=== PATIENT | female | born 1970 | race Caucasian/White ===

== ENCOUNTER 2020-01-12 22:28 | Emergency (ER) | payer OTHER, SELFPAY ==
[2020-01-12 22:39] VITALS: BP 156/78; BP 168/129; PULSE 105; PULSE 94; RESP 16; TEMP 36.9; O2SAT 96; BMI 42.5
--- NOTE | 2020-01-12 22:58 | XR_ITS ---
EXAMINATION: XR CHEST CLINICAL INFORMATION: Cough. COMPARISON: Most recent chest radiograph dated 03/31/2018. TECHNIQUE: Frontal view of the chest was obtained. FINDINGS: Minimal right basilar atelectasis. No pleural effusion or pneumothorax. Stable cardiomediastinal silhouette. No acute osseous abnormality. XR/XR chest 1V IMPRESSION: Minimal right basilar atelectasis.
--- NOTE | 2020-01-12 22:59 | ECG_ITS ---
Test Reason : OD Blood Pressure : / mmHG Vent. Rate : 099 BPM Atrial Rate : 099 BPM P-R Int : 166 ms QRS Dur : 088 ms QT Int : 364 ms P-R-T Axes : 066 002 053 degrees QTc Int : 467 ms Normal sinus rhythm Low voltage QRS Left axis deviation Borderline ECG When compared with ECG of 03-MAY-2012 15:48, Heart rate has increased Referred By: Marisela Kunz Electronically Signed By:KENDAL PATRICK MD
--- NOTE | 2020-01-12 23:01 | ED.OVERDOSE ---
HPI - Overdose General Chief Complaint: Overdose Stated Complaint: od Time Seen by Provider: 01/12/20 22:40 Source: patient and EMS Mode of arrival: EMS Limitations: no limitations History of Present Illness HPI Narrative: This is a 49-year-old female who reports that she has been clean for a number of years and then began experiencing significant menstrual related pain and decide is snored half a bag of heroin which proved to be too much and she became unresponsive. EMS had to administer 2 mg of Narcan, epi, and an additional 2 mg of Narcan in order to get the patient conscious. Otherwise, she is complaining of some asthma related symptoms. Otherwise, she denies any fevers, chills, she chest pain/palpitations, GI symptoms, symptoms. Patient denies any attempts to kill herself and states that she simply fell off the wagon . Related Data Allergies Allergy/AdvReac Type Severity Reaction Status Date / Time No Known Allergies Allergy Verified 01/12/20 22:49 Review of Systems Review of Systems: Pertinent positives and negatives as stated in HPI 10 point review of systems is otherwise negative. PMFSH Past Medical History Source: nursing notes reviewed Medical History Asthma Bipolar 1 disorder Diabetes Substance abuse Social History Social History Alcohol intake: never Smoking Status: Never smoker Use of substances other than those prescribed or required for medical reasons: No Advance Directives: No Advance Directives Information Provided: No Physical Exam Vital Signs: Vital Signs: Vital Signs Temp Pulse Resp BP Pulse Ox 01/12/20 22:39 98.4 F 94 16 156/78 H 96 Body Mass Index 42.5 VITAL SIGNS: Reviewed. GENERAL: Well developed, well nourished, in no acute distress. HEAD: Normocephalic/atraumatic, EYES: PERRLA, EOMI intact without pain, no nystagmus/pallor/icterus noted EARS: Ext canals without abnormality, TMs non-bulging and non-erythematous NOSE: Nares patent bilateral OROPHARYNX: no oral lesions noted, posterior pharynx clear and non-erythematous without noted tonsillar enlargement/erythema/exudates NECK: Supple, no adenopathy LUNGS: Normal breath sounds. No adventitious sounds or accessory muscle use. SpO2<96> CARDIOVASCULAR: Regular rate and rhythm without noted murmurs, no JVD or lower extremity edema. ABDOMEN: Soft, non-tender, non-distended with bowel sounds. No rigidity. No guarding. No palpable masses or hernias noted MUSCULOSKELETAL: No tenderness, deformities, or effusions noted on gross inspection. EXTREMITIES: No cyanosis, clubbing or edema. SKIN: Inspection of the skin reveals no rashes, ulcerations, jaundice, pallor, or petechiae. NEUROLOGIC: Alert and oriented x 4. Strength and sensation to light touch were grossly intact x 4. Course Course Course Narrative: This is a 49-year-old female with history and clinical presentation consistent with accidental heroin overdose. Will perform basic labs, EKG, imaging and give an albuterol treatment for underlying asthma. A review of all investigations is without acute findings other than elevated glucose levels without evidence to suggest DKA/HHS, chest x-ray only significant for some mild right basilar atelectasis, and no acute findings on EKG. MDM - Overdose Lab Data Result diagrams: 01/12/20 23:34 01/13/20 00:23 Labs: Lab Results 01/12/20 01/12/20 01/13/20 Range/Units 23:34 23:34 00:23 WBC 10.0 (4.8-10.8) X10*3/uL RBC 4.09 L (4.20-5.50) X10*6/uL Hgb 12.0 (12.0-16.0) g/dl Hct 37.2 (37-47) % MCV 91.0 (80-98) fL MCH 29.3 (27.0-33.0) pg MCHC 32.3 (31.0-35.0) g/dl RDW 12.8 (11.0-16.0) % Plt Count 376 (160-400) X10*3/uL MPV 10.0 (9.4-12.3) fL Immature Gran % (Auto) 0.3 (0.0-0.4) % Neut % (Auto) 73.8 H (45-73) % Lymph % (Auto) 15.9 L (20-40) % [place] % (Auto) 5.6 (2-11) % Eos % (Auto) 4.1 H (0-4) % Baso % (Auto) 0.3 (0-2) % Lymph # (Auto) 1.6 (1.2-4.9) X10*3/uL [place] # (Auto) 0.6 (0.1-1.2) X10*3/uL Eos # (Auto) 0.4 (0.0-0.4) X10*3/uL Baso # (Auto) 0.0 (0.0-0.2) X10*3/uL Abs Immat Gran (auto) 0.03 (0.00-0.03) X10*3/uL Absolute Neuts (auto) 7.4 (2.0-8.3) X10*3/uL Absolute Nucleated RBC 0.000 (0.0-0.012) X10*3/uL Nucleated RBC % (auto) 0.0 (0.0-0.2) /100WBC Sodium Cancelled 137 Potassium Cancelled 4.6 Chloride Cancelled 99 Carbon Dioxide Cancelled 27 Anion Gap Cancelled 16 BUN Cancelled 13 Creatinine Cancelled 1.20 Estim Creat Clear Calc Cancelled 66.4 Estimated GFR Cancelled 48 Random Glucose Cancelled 303 H Calcium Cancelled 8.2 L Total Bilirubin Cancelled 0.4 AST Cancelled 27 ALT Cancelled 22 Alkaline Phosphatase Cancelled 100 Total Protein Cancelled 6.9 Albumin Cancelled 3.8 ECG Data Attestation: I personally reviewed and interpreted this ECG as follows: Prior ECG tracings: available for review (05/03/2012 comparison without acute changes) Interpretation: normal sinus rhythm, HR - 99, no evidence of acute ischemia, NV/QRS/QTC are within normal limits Discharge Plan Discharge Clinical Impression: Drug overdose Qualifiers: Encounter type: initial encounter Injury intent: accidental or unintentional Qualified Code(s): T50.901A - Poisoning by unspecified drugs, medicaments and biological substances, accidental (unintentional), initial encounter Patient Disposition: Home, Self-Care Instructions: Adult Overdose (ED) Additional Instructions: Please follow-up with your primary care provider by calling the office on Tuesday to set up a follow-up appointment. The patient and/or family acknowledge understanding of results (as applicable), diagnosis, treatment plan, need for follow up, and symptoms that should prompt a return to the emergency room. Referrals: Physician,Unknown [Primary Care Provider] - 2 days
[2020-01-12] MEDS: Albuterol Sulfate (0.083%) 2.5 MG/3 ML VIAL.NEB INHALE (23:36)
[2020-01-12] MEDS: Ketorolac Tromethamine 15 MG/ML VIAL IVPUSH (23:57)
[2020-01-12 23:59] LABS: Basophils Percent Auto 0.3 % (0-2); Eosinophils Absolute Auto 0.4 X10*3/uL (0.0-0.4); Eosinophils Percent Auto 4.1 % (0-4); Hematocrit 37.2 % (37-47); Imm Gran Abs Auto 0.03 X10*3/uL (0.00-0.03); Imm Gran Pct Auto 0.3 % (0.0-0.4); Lymphocytes Absolute Auto 1.6 X10*3/uL (1.2-4.9); Lymphocytes Percent Auto 15.9 % (20-40); MANUAL DIFF FLAG NO; Mean Corpuscular HGB Conc 32.3 g/dl (31.0-35.0); Mean Corpuscular Hemoglobin 29.3 pg (27.0-33.0); Monocytes Absolute Auto 0.6 X10*3/uL (0.1-1.2); Monocytes Percent Auto 5.6 % (2-11); Neutrophils Absolute Auto 7.4 X10*3/uL (2.0-8.3); Neutrophils Percent Auto 73.8 % (45-73); Platelet Count 376 X10*3/uL (160-400); Red Blood Count 4.09 X10*6/uL (4.20-5.50); Red Cell Distribution Width 12.8 % (11.0-16.0)
[2020-01-13 00:55] LABS: Alanine Aminotransferase 22 U/L (0-31); Albumin Level 3.8 g/dL (3.5-5.0); Alkaline Phosphatase 100 U/L (39-117); Anion Gap 16 (12-20); Aspartate Amino Transferase 27 U/L (5-31); Bilirubin Total 0.4 mg/dL (0.0-1.0); Blood Urea Nitrogen 13 mg/dL (9-16); Calcium 8.2 mg/dL (8.4-10.2); Carbon Dioxide 27 mmol/L (22-29); Chloride 99 mmol/L (96-108); Creatinine Clr Calc Pharmacy 66.4; Estimated Glomerular Filt Rate 48; Glucose Random 303 mg/dL (60-115); Potassium 4.6 mmol/l (3.3-5.1); Sodium 137 mmol/L (135-145); Total Protein 6.9 g/dL (6.5-8.0)
[2020-01-13 02:00] LABS: Glucose, Whole Blood 247 mg/dL (60-115)
== END 2020-01-13 01:21 | disposition home or self-care (01) ==
PROVIDERS: Emergency Provider Student in an Organized Health Care Education/Training Program
DX: T40.1X1A Poisoning by heroin, accidental (unintentional), initial encounter (principal); Y92.9 Unspecified place or not applicable; F11.10 Opioid abuse, uncomplicated; Z71.51 Drug abuse counseling and surveillance of drug abuser
CPT/HCPCS: 36415; 71045; 80053; 82947; 85025; 93005; 96374; 99284; 99285; J1885

== ENCOUNTER 2020-02-28 23:44 | Emergency (ER) | payer OTHER, SELFPAY ==
[2020-02-28 23:50] VITALS: BP 149/70; PULSE 89; RESP 25; TEMP 36; O2SAT 99; BMI 42.5
--- NOTE | 2020-02-29 00:09 | ED_ITS ---
HPI - Asthma General Chief Complaint: Asthma Stated Complaint: Sob Time Seen by Provider: 02/28/20 23:49 Source: patient Mode of arrival: ambulatory Limitations: no limitations History of Present Illness HPI Narrative: This is a 49-year-old female with history of asthma states that she woke up with some bad indigestion which causes exacerbation this evening and she states that she does not have the nebulizer pees for her albuterol and the inhaler was not working. Otherwise, she denies any associated fevers, chills, smoking history. Related Data Previous Rx's Medication Instructions Recorded prednisone 40 mg PO DAILY 4 Days #8 tab 02/29/20 Allergies Allergy/AdvReac Type Severity Reaction Status Date / Time No Known Allergies Allergy Verified 01/12/20 22:49 Review of Systems Review of Systems: Pertinent positives and negatives as stated in HPI 10 point review of systems is otherwise negative. PMFSH Past Medical History Source: nursing notes reviewed Medical History Asthma Bipolar 1 disorder Diabetes Substance abuse Social History Social History Alcohol intake: never Smoking Status: Never smoker Smoked in Last 30 Days: No Advance Directives: No Advance Directives Information Provided: No Physical Exam Vital Signs: Vital Signs: Last Vital Signs Temp 98.2 F 02/29/20 00:11 Pulse 79 02/29/20 00:50 Resp 18 02/29/20 00:11 BP 143/65 H 02/29/20 00:11 Pulse Ox 98 02/29/20 00:11 Body Mass Index 42.5 VITAL SIGNS: Reviewed. GENERAL: Well developed, well nourished, in no acute distress. HEAD: Normocephalic/atraumatic, EYES: PERRLA, EOMI intact without pain, no nystagmus/pallor/icterus noted EARS: Ext canals without abnormality, TMs non-bulging and non-erythematous NOSE: Nares patent bilateral OROPHARYNX: no oral lesions noted, posterior pharynx clear and non-erythematous without noted tonsillar enlargement/erythema/exudates NECK: Supple, no adenopathy LUNGS: Diffuse wheezing, minimal accessory muscle use. SpO2<98> CARDIOVASCULAR: Regular rate and rhythm without noted murmurs, no JVD or lower extremity edema. ABDOMEN: Soft, non-tender, non-distended with bowel sounds. No rigidity. No guarding. No palpable masses or hernias noted MUSCULOSKELETAL: No tenderness, deformities, or effusions noted on gross inspection. EXTREMITIES: No cyanosis, clubbing or edema. SKIN: Inspection of the skin reveals no rashes, ulcerations, jaundice, pallor, or petechiae. NEUROLOGIC: Alert and oriented x 4. Strength and sensation to light touch were grossly intact x 4. Course Course Course Narrative: This is a 49-year-old female with history and clinical presentation consistent with mild asthma exacerbation. -labs, chest x-ray, albuterol, prednisone On review of all investigations of acute infection (pneumonia) and patient reports symptomatic improvement after the albuterol and prednisone treatments and clinically there is improvement as well. [facility] - Asthma Lab Data Result diagrams: 02/29/20 00:22 02/29/20 00:22 Labs: Lab Results 02/29/20 02/29/20 Range/Units 00:22 00:22 WBC 8.6 (4.8-10.8) X10*3/uL RBC 3.82 L (4.20-5.50) X10*6/uL Hgb 10.7 L (12.0-16.0) g/dl Hct 34.3 L (37-47) % MCV 89.8 (80-98) fL MCH 28.0 (27.0-33.0) pg MCHC 31.2 (31.0-35.0) g/dl RDW 12.7 (11.0-16.0) % Plt Count 343 (160-400) X10*3/uL MPV 9.7 (9.4-12.3) fL Immature Gran % (Auto) 0.2 (0.0-0.4) % Neut % (Auto) 69.4 (45-73) % Lymph % (Auto) 19.1 L (20-40) % [place] % (Auto) 5.1 (2-11) % Eos % (Auto) 5.9 H (0-4) % Baso % (Auto) 0.3 (0-2) % Lymph # (Auto) 1.6 (1.2-4.9) X10*3/uL [place] # (Auto) 0.4 (0.1-1.2) X10*3/uL Eos # (Auto) 0.5 H (0.0-0.4) X10*3/uL Baso # (Auto) 0.0 (0.0-0.2) X10*3/uL Abs Immat Gran (auto) 0.02 (0.00-0.03) X10*3/uL Absolute Neuts (auto) 6.0 (2.0-8.3) X10*3/uL Absolute Nucleated RBC 0.000 (0.0-0.012) X10*3/uL Nucleated RBC % (auto) 0.0 (0.0-0.2) /100WBC Sodium 137 (135-145) mmol/L Potassium 4.7 (3.3-5.1) mmol/l Chloride 96 (96-108) mmol/L Carbon Dioxide 31 H (22-29) mmol/L Anion Gap 15 (12-20) BUN 11 (9-16) mg/dL Creatinine 0.84 (0.5-1.4) mg/dL Estim Creat Clear Calc 94.8 Estimated GFR > 60 Random Glucose 244 H (60-115) mg/dL Calcium 8.5 (8.4-10.2) mg/dL Total Bilirubin 0.6 (0.0-1.0) mg/dL AST 10 D (5-31) U/L ALT 10 (0-31) U/L Alkaline Phosphatase 130 H D (39-117) U/L Total Protein 7.0 (6.5-8.0) g/dL Albumin 3.9 (3.5-5.0) g/dL Discharge Plan Discharge Clinical Impression: Asthma with acute exacerbation Qualifiers: Asthma severity: mild Asthma persistence: unspecified Qualified Code(s): J45.901 - Unspecified asthma with (acute) exacerbation Patient Disposition: Home, Self-Care Instructions: Asthma (ED), Wheezing (ED) Additional Instructions: Please resume all home medications as prescribed. Do not hesitate to return to the emergency department should you experience any acute worsening of your symptoms or new onset of fever, chills. Be advised that with this short course of prednisone your blood sugars, blood pressure, and stomach acid will increase. The patient and/or family acknowledge understanding of results (as applicable), diagnosis, treatment plan, need for follow up, and symptoms that should prompt a return to the emergency room. Prescriptions: New prednisone 20 mg tablet 40 mg PO DAILY 4 Days Qty: 8 RF: 0 Referrals: Angie Wing MD [Primary Care Provider] - 2 days (Re-evaluation after acute asthma exacerbation)
--- NOTE | 2020-02-29 00:10 | XR_ITS ---
EXAMINATION: CHEST 1 VIEW CLINICAL INFORMATION: Shortness of breath. COMPARISON: 03/31/2018. TECHNIQUE: An AP view of the chest is provided. FINDINGS: The cardiac silhouette is stable. The mediastinal and hilar contours are unremarkable. There are neither pleural effusions nor pneumothoraces. There are no consolidations. The osseous structures are unremarkable. XR/XR chest 1V IMPRESSION: No evidence for acute disease.
[2020-02-29 00:11] VITALS: BP 143/65; PULSE 83; RESP 18; TEMP 36.8; O2SAT 98
[2020-02-29 00:28] LABS: Basophils Percent Auto 0.3 % (0-2); Eosinophils Absolute Auto 0.5 X10*3/uL (0.0-0.4); Eosinophils Percent Auto 5.9 % (0-4); Hematocrit 34.3 % (37-47); Hemoglobin 10.7 g/dl (12.0-16.0); Imm Gran Abs Auto 0.02 X10*3/uL (0.00-0.03); Imm Gran Pct Auto 0.2 % (0.0-0.4); Lymphocytes Absolute Auto 1.6 X10*3/uL (1.2-4.9); Lymphocytes Percent Auto 19.1 % (20-40); MANUAL DIFF FLAG NO; Mean Corpuscular HGB Conc 31.2 g/dl (31.0-35.0); Mean Corpuscular Volume 89.8 fL (80-98); Mean Platelet Volume 9.7 fL (9.4-12.3); Monocytes Absolute Auto 0.4 X10*3/uL (0.1-1.2); Monocytes Percent Auto 5.1 % (2-11); Neutrophils Percent Auto 69.4 % (45-73); Platelet Count 343 X10*3/uL (160-400); Red Blood Count 3.82 X10*6/uL (4.20-5.50); Red Cell Distribution Width 12.7 % (11.0-16.0); White Blood Count 8.6 X10*3/uL (4.8-10.8)
[2020-02-29] MEDS: predniSONE 10 MG TABLET 50 MG PO (00:30)
[2020-02-29] MEDS: Magnesium Hydrox/Alum Hydrox 30 ML ORAL.SUSP PO (00:31)
[2020-02-29] MEDS: Lidocaine HCl Viscous 2 % 15 ML SOLUTION 10 ML MUCOUS MEM (00:31)
[2020-02-29] MEDS: Albuterol Sulfate (0.083%) 2.5 MG/3 ML VIAL.NEB 5 MG INHALE (00:45)
[2020-02-29 00:50] VITALS: PULSE 79; O2SAT 96
[2020-02-29 00:54] LABS: Alanine Aminotransferase 10 U/L (0-31); Albumin Level 3.9 g/dL (3.5-5.0); Alkaline Phosphatase 130 U/L (39-117); Anion Gap 15 (12-20); Aspartate Amino Transferase 10 U/L (5-31); Bilirubin Total 0.6 mg/dL (0.0-1.0); Blood Urea Nitrogen 11 mg/dL (9-16); Calcium 8.5 mg/dL (8.4-10.2); Carbon Dioxide 31 mmol/L (22-29); Chloride 96 mmol/L (96-108); Creatinine Clr Calc Pharmacy 94.8; Estimated Glomerular Filt Rate > 60; Glucose Random 244 mg/dL (60-115); Potassium 4.7 mmol/l (3.3-5.1); Sodium 137 mmol/L (135-145)
[2020-02-29 01:49] VITALS: BP 138/64; PULSE 84; RESP 16; TEMP 36.9; O2SAT 95
== END 2020-02-29 01:50 | disposition home or self-care (01) ==
PROVIDERS: Emergency Provider Student in an Organized Health Care Education/Training Program; PCP Internal Medicine
DX: J45.901 Unspecified asthma with (acute) exacerbation (principal); Z79.899 Other long term (current) drug therapy
CPT/HCPCS: 36415; 71045; 80053; 85025; 94640; 99284

== ENCOUNTER 2020-06-01 01:44 | Emergency (ER) | payer OTHER, SELFPAY ==
--- NOTE | ~2020-06-01 | XR_ITS ---
EXAMINATION: XR CHEST CLINICAL INFORMATION: sob COMPARISON: 02/29/2020 TECHNIQUE: Frontal view of the chest was obtained. FINDINGS: Lung volumes are borderline low. No consolidation, pneumothorax, or pleural effusion. Cardiac meniscal contours are normal. Pulmonary vasculature is unremarkable. Cardiac leads overlie the chest. A focus of calcific tendinitis is present at the left humeral head. No acute osseous findings. Mild degenerative spondylosis in the thoracic spine. XR/XR chest 1V IMPRESSION: No acute pulmonary findings.
[2020-06-01 01:55] VITALS: BP 152/85; PULSE 89; RESP 20; TEMP 36.9; O2SAT 96; BMI 41.1
--- NOTE | 2020-06-01 01:58 | ED_ITS ---
HPI - Asthma General Chief Complaint: Asthma Stated Complaint: Sob (Asthma) Time Seen by Provider: 06/01/20 01:50 Source: patient Mode of arrival: ambulatory Limitations: no limitations History of Present Illness HPI Narrative: Patient comes emergency room complaining of an asthma exacerbation. Patient states that prior to arrival she gave herself a a neb treatment with albutero but did not work. Patient states she is supposed to use her inhaler Spiriva, but she ran out of it several weeks ago. Patient states that she is running out of her albuterol neb treatments MD complaint: asthma attack Related Data Previous Rx's Medication Instructions Recorded prednisone 40 mg PO DAILY 4 Days #8 tab 02/29/20 albuterol sulfate 2 puff INHALATION Q4-6H PRN #8.5 g 06/01/20 albuterol sulfate 5 mg INHALATION QID PRN #30 ea 06/01/20 prednisone 50 mg PO DAILY #4 tab 06/01/20 Allergies Allergy/AdvReac Type Severity Reaction Status Date / Time No Known Allergies Allergy Verified 01/12/20 22:49 Review of Systems Review of Systems: Constitutional : No Weight loss, No Fever, No Chills, No Night Sweats, No Fatigue, No Malaise ENT/Mouth : No Hearing loss, No Ear Pain, No Nasal Congestion, No Sinus Pain, No Hoarseness, No sore throat, No Rhinorrhea, No Swallowing Difficulty Eyes: No Eye Pain, No Swelling, No Redness, No Foreign Body, No Discharge, No Vision Changes Cardiovascular : Denies Chest Pain, No SOB, No Dyspnea on Exertion, No Orthopnea, No Edema, No Palpitations Respiratory : Complaining of mild Cough, No Sputum, complaining of Wheezing and dyspnea Gastrointestinal : No Nausea, No Vomiting, No Diarrhea, No Constipation, No abdominal Pain, No Hematochezia, No Melena Genitourinary : no irregular bleeding, No Dysuria, No Urinary Frequency, No Hematuria, No Urinary Incontinence, No Urgency, No Flank Pain, No Urinary Flow Changes, No Hesitancy Musculoskeletal : No joint pain, No Myalgias, No Joint Swelling Skin : No Skin Lesions, No rash Neuro : No Weakness, No Numbness, No Paresthesias, No Loss of Consciousness, No Dizziness, No Headache Psych : No Anxiety/Panic, No Depression, No SI/HI/AH/VH, No Social Issues, Heme/Lymph: No Bruising, No Bleeding,No Lymphadenopathy Endocrine : No Polyuria, No Polydipsia, No Temperature Intolerance [facility] Past Medical History Medical History Asthma Bipolar 1 disorder Diabetes Substance abuse Social History Social History Alcohol intake: never Smoking Status: Never smoker Advance Directives: No Physical Exam Vital Signs: Vital Signs: Last Vital Signs Temp 98.5 F 06/01/20 01:55 Pulse 86 06/01/20 02:22 Resp 20 06/01/20 01:55 BP 152/85 H 06/01/20 01:55 Pulse Ox 96 06/01/20 01:55 Body Mass Index 41.1 Appearance: Alert. Oriented X3. No acute distress. Eyes: Pupils equal, round and reactive to light. ENT: Pharynx normal. Neck: Normal inspection. Neck supple. No lymph nodes noted. No crepitus CVS: Normal heart rate and rhythm. Pulses normal. Normal S1 and S2 Respiratory: No respiratory distress. Breath sounds normal. No Wheezing. No rales Abdomen: Soft and nontender. No rigidity. No distention. good BS x4 Skin: Skin warm and dry. Normal skin color. Normal skin turgor. Extremities: No lower extremity edema. No lower extremity edema. No Lacerations. No Rash Neuro: Oriented X 3. No motor deficit. No sensory deficit. Moving all extermities. No slurred speech. Course Course Course Narrative: After 1st treatment, patient states that she feels much better, patient's oxygen saturation is 98% on room air. Patient is speaking on the phone, speaking in full sentences. However, on physical exam, she still wheezing, the wheezing did improve but still present. I offered to the patient a breathing treatment and then re-evaluation. Patient has declined, does not want another breathing treatment, requesting to be discharged and also requesting a prescription for her albuterol. MDM - Asthma Imaging Data Chest x-ray: Radiologist's impression: Lung volumes are borderline low. No consolidation, pneumothorax, or pleural effusion. Cardiac meniscal contours are normal. Pulmonary vasculature is unremarkable. Cardiac leads overlie the chest. A focus of calcific tendinitis is present at the left humeral head. No acute osseous findings. Mild degenerative spondylosis in the thoracic spine. XR/XR chest 1V IMPRESSION: No acute pulmonary findings. Discharge Plan Discharge Clinical Impression: Asthma with acute exacerbation Qualifiers: Asthma severity: moderate Asthma persistence: unspecified Qualified Code(s): J45.901 - Unspecified asthma with (acute) exacerbation Patient Disposition: Home, Self-Care Instructions: Asthma (ED) Additional Instructions: Please follow-up with your primary care physician tomorrow. If you have any wor sening or new symptoms, please return to the emergency room or call 911 Prescriptions: New albuterol sulfate 90 mcg/actuation HFA aerosol inhaler 2 puff inhalation Q4-6H PRN (Reason: shortness of breath or wheezing) Qty: 8.5 RF: 0 albuterol sulfate 2.5 mg/0.5 mL solution for nebulization 5 mg inhalation QID PRN (Reason: shortness of breath or wheezing) Qty: 30 RF: 0 prednisone 50 mg tablet 50 mg PO DAILY Qty: 4 RF: 0 No Action prednisone 20 mg tablet 40 mg PO DAILY 4 Days Qty: 8 RF: 0
[2020-06-01 02:00] VITALS: BP 140/88; PULSE 81; RESP 20; TEMP 37.2; O2SAT 98
[2020-06-01] MEDS: Albuterol Sulfate (0.083%) 2.5 MG/3 ML VIAL.NEB 10 MG INHALE (02:19)
[2020-06-01 02:22] VITALS: PULSE 86; O2SAT 96
[2020-06-01] MEDS: methylPREDNISolone Sod Succ 125 MG/2 ML VIAL IVPUSH (02:23)
== END 2020-06-01 04:31 | disposition home or self-care (01) ==
PROVIDERS: Emergency Provider Emergency Medicine; PCP Internal Medicine
DX: J45.901 Unspecified asthma with (acute) exacerbation (principal); E11.9 Type 2 diabetes mellitus without complications; F19.10 Other psychoactive substance abuse, uncomplicated
CPT/HCPCS: 71045; 94640; 94644; 96374; 99284; J2930

== ENCOUNTER 2020-07-06 17:47 | Emergency (ER) | payer OTHER, SELFPAY ==
[2020-07-06 18:06] VITALS: BP 185/90; PULSE 91; RESP 16; TEMP 37.2; O2SAT 94; BMI 40.3
[2020-07-06 18:19] LABS: Glucose, Whole Blood 535 mg/dL (60-115)
[2020-07-06 19:27] LABS: MANUAL DIFF FLAG NO
[2020-07-06 19:29] LABS: Basophils Percent Auto 0.3 % (0-2); Eosinophils Absolute Auto 0.4 X10*3/uL (0.0-0.4); Eosinophils Percent Auto 4.4 % (0-4); Hematocrit 38.3 % (37-47); Hemoglobin 11.9 g/dl (12.0-16.0); Imm Gran Abs Auto 0.03 X10*3/uL (0.00-0.03); Imm Gran Pct Auto 0.3 % (0.0-0.4); Lymphocytes Absolute Auto 1.2 X10*3/uL (1.2-4.9); Lymphocytes Percent Auto 13.3 % (20-40); Mean Corpuscular HGB Conc 31.1 g/dl (31.0-35.0); Mean Corpuscular Hemoglobin 26.3 pg (27.0-33.0); Mean Corpuscular Volume 84.5 fL (80-98); Mean Platelet Volume 9.7 fL (9.4-12.3); Monocytes Absolute Auto 0.4 X10*3/uL (0.1-1.2); Monocytes Percent Auto 4.3 % (2-11); Neutrophils Absolute Auto 6.9 X10*3/uL (2.0-8.3); Neutrophils Percent Auto 77.4 % (45-73); Platelet Count 287 X10*3/uL (160-400); Red Blood Count 4.53 X10*6/uL (4.20-5.50); Red Cell Distribution Width 14.6 % (11.0-16.0); White Blood Count 8.9 X10*3/uL (4.8-10.8)
[2020-07-06 19:52] LABS: Glucose Urine UA >=1000 MG/DL (NEG); Leukocyte Esterase Urine NEG (NEG); Nitrite Urine NEG (NEG); PH 6.5 (5.0-8.0); Urine Blood NEG (NEG); Urine Ketones NEG (NEG); Urine Protein NEG (NEG-TRACE)
[2020-07-06 19:54] LABS: Appearance Urine CLEAR; Color Urine YELLOW
[2020-07-06 19:55] LABS: UPreg QC Valid YES; Urine Pregnancy NEGATIVE (NEGATIVE)
[2020-07-06 20:07] LABS: Alanine Aminotransferase 13 U/L (0-31); Albumin Level 3.9 g/dL (3.5-5.0); Alkaline Phosphatase 219 U/L (39-117); Anion Gap 14 (12-20); Aspartate Amino Transferase 11 U/L (5-31); Bilirubin Total 0.7 mg/dL (0.0-1.0); Blood Urea Nitrogen 8 mg/dL (9-16); Calcium 9.2 mg/dL (8.4-10.2); Carbon Dioxide 34 mmol/L (22-29); Chloride 91 mmol/L (96-108); Creatinine Clr Calc Pharmacy 85.3; Estimated Glomerular Filt Rate > 60; Glucose Random 469 mg/dL (60-115); Potassium 4.5 mmol/L (3.3-5.1); Sodium 134 mmol/L (135-145); Total Protein 7.1 g/dL (6.5-8.0)
[2020-07-06 20:08] LABS: RBC Urine 0-2 /HPF (0); Squamous Epithelial Cell Urine 1+ /LPF; WBC Urine 0 /HPF (0-4)
[2020-07-06] MEDS: Insulin Regular, Human 100 UNIT/ML 3 ML VIAL IVPUSH ×2 (20:48→23:15)
[2020-07-06] MEDS: Lactated Ringers 1,000 ML 999 ML IV ×2 (20:48→21:50)
--- NOTE | 2020-07-06 20:56 | ED.GENADULT ---
HPI - General Adult General Chief complaint: General Medical Stated complaint: HBS Time Seen by Provider: 07/06/20 20:05 Source: patient Mode of arrival: ambulatory Limitations: no limitations History of Present Illness HPI narrative: Patient is a 49-year-old female with a past medical history of asthma, bipolar disorder, substance abuse and type 2 diabetes who presents with a couple weeks of increased thirst, increased urination. Patient states she is supposed to check her blood sugar 3 times per week but she admits she has not checked in approximately 3 weeks because she has been very busy. She does take to 1000 mg of metformin daily and states she has been taking this medication every day. She noticed she was getting very thirsty and urinating more arm and was getting a little foggy in her head so she decided to test her blood sugar and the meter would not read it, she tried another meter and that still would not produce a reading so she came to the ED. She denies any chest pain, shortness of breath or abdominal pain or fevers. She states she has been taking her asthma and bipolar medication as normal. She also states she was taking medication for elevated blood pressures but has been taken off of it and does not currently take any medications for hypertension. Patient states she has been trying to get it an appointment with her PCP but her PCP is refusing to see her. Related Data Previous Rx's Medication Instructions Recorded prednisone 40 mg PO DAILY 4 Days #8 tab 02/29/20 albuterol sulfate 2 puff INHALATION Q4-6H PRN #8.5 g 06/01/20 albuterol sulfate 5 mg INHALATION QID PRN #30 ea 06/01/20 prednisone 50 mg PO DAILY #4 tab 06/01/20 Allergies Allergy/AdvReac Type Severity Reaction Status Date / Time No Known Allergies Allergy Verified 01/12/20 22:49 Review of Systems Review of Systems: Yes all other systems are reviewed and are negative Neurologic: Denies Abnormal speech present FOR[facility]LY [facility], [facility] Past Medical History Medical History Asthma Bipolar 1 disorder Diabetes Substance abuse Social History Social History Alcohol intake: never Smoking Status: Never smoker Use of substances other than those prescribed or required for medical reasons: No Advance Directives: No Advance Directives Information Provided: No Physical Exam Vital Signs: Vital Signs: Last Vital Signs Temp 98.9 F 07/06/20 18:06 Pulse 87 07/06/20 22:35 Resp 16 07/06/20 22:05 BP 149/73 H 07/06/20 22:35 Pulse Ox 92 07/06/20 22:35 Body Mass Index 40.3 Const: General: cooperative, healthy appearing, comfortable and no acute distress Nutritional Appearance: obese Orientation/consciousness: patient oriented x3 Limitations: no limitations HENMT: Head: Yes normal to inspection Ears: hearing grossly normal bilaterally Eyes: General: appearance normal, both eyes and all related structures Neck: Neck: Yes normal visual inspection, Yes full ROM and Yes supple Resp: Effort & Inspection: normal respiratory effort and able to speak in complete sentences Auscultation: wheezes throughout Cardio: Rate: regular rate Rhythm: regular rhythm Heart sounds: normal S1 and S2 GI: Inspection: Yes obesity Palpation (GI): Soft to palpation and nontender Auscultation: normal bowel sounds Skin: General skin exam: no rashes or lesions noted Neuro: General: patient oriented x3 Cognition (Neuro): normal cognition Speech: No Abnormal speech present Psych: Appearance: grossly normal Course Course Course Narrative: Patient is a 49-year-old female with a past medical history of asthma, bipolar disorder, substance abuse and type 2 diabetes who presents with a couple weeks of increased thirst, increased urination. Physical exam rather benign except patient had bilateral wheezes. Point of care upon arrival was 535, blood pressure was elevated at 185/90. Will get labs, monitor pressure and glucose, start with 2 L of LR and 5 units of insulin and a duoneb. Advised patient would be in her best interest to stay in the hospital overnight as she likely needs to transition to injectable insulin. Patient adamantly refuses to do this because she has too many responsibilities at home. When we talked about her seeing her primary care doctor tomorrow to be put on insulin, she states her primary care doctor is very difficult to get an appointment with and she was planning on changing PCPs soon. Reevaluation(s) Reevaluation #1: Patient's blood pressure is in the 140s systolic, her blood sugar is down to 277. Patient is very anxious to leave. I asked her to let us give her fluids for least another 30 minutes. I explained she needs to follow up with her primary care doctor tomorrow because she likely needs to be started on injectable insulin. I also explained she should not drink any sodas or juice or have anything with a high carbohydrate content until she meets with her doctor and she should monitor her blood sugars closely. Educated patient extensively on this topic. She understands. She understands that it would be preferable for her to get admitted but she is again refusing, adamantly. We also did provide the patient with [facility] doctors and endocrinology, as she asked if we knew of a different PCP. Placed call to yasmine moore at pt's PCP to assure she gets a f/u appt tomorrow to start on new injectible insulin. Dr [facility] Time: 22:26 Reevaluation #2: Spoke with Dr. Walker from [place], he said all he can do is send a message to her PCP to advise of the situation and try to get her in for an appointment tomorrow but he can make no guarantees. The patient needs to call the office in the morning to make her own appointment, will I have relayed this information to the patient, she understands and has no further questions at this time. Patient's glucose is down to 250, she said she has not felt this good in weeks. Will give her 2 more units of regular insulin and discharge patient. Time: 22:54 Medical Decision Making Lab Data Result diagrams: 07/06/20 19:23 07/06/20 19:23 Labs: Lab Results 07/06/20 07/06/20 07/06/20 Range/Units 18:15 19:23 19:23 WBC 8.9 (4.8-10.8) X10*3/uL RBC 4.53 (4.20-5.50) X10*6/uL Hgb 11.9 L (12.0-16.0) g/dl Hct 38.3 (37-47) % MCV 84.5 (80-98) fL MCH 26.3 L (27.0-33.0) pg MCHC 31.1 (31.0-35.0) g/dl RDW 14.6 (11.0-16.0) % Plt Count 287 (160-400) X10*3/uL MPV 9.7 (9.4-12.3) fL Immature Gran % (Auto) 0.3 (0.0-0.4) % Neut % (Auto) 77.4 H (45-73) % Lymph % (Auto) 13.3 L (20-40) % [place] % (Auto) 4.3 (2-11) % Eos % (Auto) 4.4 H (0-4) % Baso % (Auto) 0.3 (0-2) % Lymph # (Auto) 1.2 (1.2-4.9) X10*3/uL [place] # (Auto) 0.4 (0.1-1.2) X10*3/uL Eos # (Auto) 0.4 (0.0-0.4) X10*3/uL Baso # (Auto) 0.0 (0.0-0.2) X10*3/uL Abs Immat Gran (auto) 0.03 (0.00-0.03) X10*3/uL Absolute Neuts (auto) 6.9 (2.0-8.3) X10*3/uL Absolute Nucleated RBC 0.000 (0.0-0.012) X10*3/uL Nucleated RBC % (auto) 0.0 (0.0-0.2) /100WBC Hold Purple Top SEE NOTE Hold Blue Top VBG pH (7.32-7.43) VBG pCO2 mmHg VBG pO2 mmHg VBG HCO3 (22-26) mmol/L VBG O2 Saturation % VBG Base Excess mmol/L Sodium (135-145) mmol/L Potassium (3.3-5.1) mmol/L Chloride (96-108) mmol/L Carbon Dioxide (22-29) mmol/L Anion Gap (12-20) BUN (9-16) mg/dL Creatinine (0.5-1.4) mg/dL Estim Creat Clear Calc Estimated GFR POC Glucose 535 H* (60-115) mg/dL Random Glucose (60-115) mg/dL Calcium (8.4-10.2) mg/dL Total Bilirubin (0.0-1.0) mg/dL AST (5-31) U/L ALT (0-31) U/L Alkaline Phosphatase (39-117) U/L Total Protein (6.5-8.0) g/dL Albumin (3.5-5.0) g/dL Urine Color Urine Appearance Urine pH (5.0-8.0) Ur Specific [place] (1.005-1.025) Urine Protein (NEG-TRACE) MG/DL Urine Glucose (UA) (NEG) MG/DL Urine Ketones (NEG) MG/DL Urine Blood (NEG) Urine Nitrite (NEG) Ur Leukocyte Esterase (NEG) Urine RBC (0) /HPF Urine WBC (0-4) /HPF Ur Squamous Epith Cells /LPF Urine Bacteria /LPF Urine Test (NEGATIVE) 07/06/20 07/06/20 07/06/20 Range/Units 19:23 19:23 19:35 WBC (4.8-10.8) X10*3/uL RBC (4.20-5.50) X10*6/uL Hgb (12.0-16.0) g/dl Hct (37-47) % MCV (80-98) fL MCH (27.0-33.0) pg MCHC (31.0-35.0) g/dl RDW (11.0-16.0) % Plt Count (160-400) X10*3/uL MPV (9.4-12.3) fL Immature Gran % (Auto) (0.0-0.4) % Neut % (Auto) (45-73) % Lymph % (Auto) (20-40) % [place] % (Auto) (2-11) % Eos % (Auto) (0-4) % Baso % (Auto) (0-2) % Lymph # (Auto) (1.2-4.9) X10*3/uL [place] # (Auto) (0.1-1.2) X10*3/uL Eos # (Auto) (0.0-0.4) X10*3/uL Baso # (Auto) (0.0-0.2) X10*3/uL Abs Immat Gran (auto) (0.00-0.03) X10*3/uL Absolute Neuts (auto) (2.0-8.3) X10*3/uL Absolute Nucleated RBC (0.0-0.012) X10*3/uL Nucleated RBC % (auto) (0.0-0.2) /100WBC Hold Purple Top Hold Blue Top SEE NOTE VBG pH (7.32-7.43) VBG pCO2 mmHg VBG pO2 mmHg VBG HCO3 (22-26) mmol/L VBG O2 Saturation % VBG Base Excess mmol/L Sodium 134 L (135-145) mmol/L Potassium 4.5 (3.3-5.1) mmol/L Chloride 91 L (96-108) mmol/L Carbon Dioxide 34 H (22-29) mmol/L Anion Gap 14 (12-20) BUN 8 L (9-16) mg/dL Creatinine 0.94 (0.5-1.4) mg/dL Estim Creat Clear Calc 85.3 Estimated GFR > 60 POC Glucose (60-115) mg/dL Random Glucose 469 H* (60-115) mg/dL Calcium 9.2 D (8.4-10.2) mg/dL Total Bilirubin 0.7 (0.0-1.0) mg/dL AST 11 (5-31) U/L ALT 13 (0-31) U/L Alkaline Phosphatase 219 H D (39-117) U/L Total Protein 7.1 (6.5-8.0) g/dL Albumin 3.9 (3.5-5.0) g/dL Urine Color YELLOW Urine Appearance CLEAR Urine pH 6.5 (5.0-8.0) Ur Specific [place] 1.010 (1.005-1.025) Urine Protein NEG (NEG-TRACE) MG/DL Urine Glucose (UA) >=1000 H (NEG) MG/DL Urine Ketones NEG (NEG) MG/DL Urine Blood NEG (NEG) Urine Nitrite NEG (NEG) Ur Leukocyte Esterase NEG (NEG) Urine RBC 0-2 (0) /HPF Urine WBC 0 (0-4) /HPF Ur Squamous Epith Cells 1+ /LPF Urine Bacteria NONE /LPF Urine Test (NEGATIVE) 07/06/20 07/06/20 07/06/20 Range/Units 19:35 20:52 22:35 WBC (4.8-10.8) X10*3/uL RBC (4.20-5.50) X10*6/uL Hgb (12.0-16.0) g/dl Hct (37-47) % MCV (80-98) fL MCH (27.0-33.0) pg MCHC (31.0-35.0) g/dl RDW (11.0-16.0) % Plt Count (160-400) X10*3/uL MPV (9.4-12.3) fL Immature Gran % (Auto) (0.0-0.4) % Neut % (Auto) (45-73) % Lymph % (Auto) (20-40) % [place] % (Auto) (2-11) % Eos % (Auto) (0-4) % Baso % (Auto) (0-2) % Lymph # (Auto) (1.2-4.9) X10*3/uL [place] # (Auto) (0.1-1.2) X10*3/uL Eos # (Auto) (0.0-0.4) X10*3/uL Baso # (Auto) (0.0-0.2) X10*3/uL Abs Immat Gran (auto) (0.00-0.03) X10*3/uL Absolute Neuts (auto) (2.0-8.3) X10*3/uL Absolute Nucleated RBC (0.0-0.012) X10*3/uL Nucleated RBC % (auto) (0.0-0.2) /100WBC Hold Purple Top Hold Blue Top VBG pH 7.41 (7.32-7.43) VBG pCO2 47 mmHg VBG pO2 75 mmHg VBG HCO3 30 H (22-26) mmol/L VBG O2 Saturation 94.0 % VBG Base Excess 4.9 mmol/L Sodium (135-145) mmol/L Potassium (3.3-5.1) mmol/L Chloride (96-108) mmol/L Carbon Dioxide (22-29) mmol/L Anion Gap (12-20) BUN (9-16) mg/dL Creatinine (0.5-1.4) mg/dL Estim Creat Clear Calc Estimated GFR POC Glucose 277 H (60-115) mg/dL Random Glucose (60-115) mg/dL Calcium (8.4-10.2) mg/dL Total Bilirubin (0.0-1.0) mg/dL AST (5-31) U/L ALT (0-31) U/L Alkaline Phosphatase (39-117) U/L Total Protein (6.5-8.0) g/dL Albumin (3.5-5.0) g/dL Urine Color Urine Appearance Urine pH (5.0-8.0) Ur Specific [place] (1.005-1.025) Urine Protein (NEG-TRACE) MG/DL Urine Glucose (UA) (NEG) MG/DL Urine Ketones (NEG) MG/DL Urine Blood (NEG) Urine Nitrite (NEG) Ur Leukocyte Esterase (NEG) Urine RBC (0) /HPF Urine WBC (0-4) /HPF Ur Squamous Epith Cells /LPF Urine Bacteria /LPF Urine Test NEGATIVE (NEGATIVE) Discharge Plan Discharge Patient Disposition: Home, Self-Care Instructions: Type 2 Diabetes in the Older Adult (ED) Prescriptions: No Action albuterol sulfate 90 mcg/actuation HFA aerosol inhaler 2 puff inhalation Q4-6H PRN (Reason: shortness of breath or wheezing) Qty: 8.5 RF: 0 albuterol sulfate 2.5 mg/0.5 mL solution for nebulization 5 mg inhalation QID PRN (Reason: shortness of breath or wheezing) Qty: 30 RF: 0 prednisone 50 mg tablet 50 mg PO DAILY Qty: 4 RF: 0 prednisone 20 mg tablet 40 mg PO DAILY 4 Days Qty: 8 RF: 0 Referrals: Angie Wing MD [Primary Care Provider] - 2 days (Pt needs follow up appt tomorrow, 07/07/2020, as she refused admission. Likely needs to be put on injectable insulin and possibly hypertension meds as BP's were elevated. Needs close follow up please.)
[2020-07-06 20:58] LABS: Venous Blood Gas Refer to POC result
[2020-07-06 20:59] LABS: VBG Base Excess 4.9 mmol/L; VBG HCO3 30 mmol/L (22-26); VBG pCO2 47 mmHg; VBG pH 7.41 (7.32-7.43); VBG pO2 75 mmHg
[2020-07-06 21:15] VITALS: BP 129/58; PULSE 82; RESP 10; O2SAT 92
[2020-07-06 22:05] VITALS: BP 143/71; PULSE 79; RESP 16; O2SAT 90
[2020-07-06] MEDS: Albuterol/Iprat 2.5/0.5MG 3 ML AMPUL.NEB INHALE (22:05)
[2020-07-06 22:08] VITALS: PULSE 83; O2SAT 98
[2020-07-06 22:35] VITALS: BP 149/73; PULSE 87; O2SAT 92
[2020-07-06 22:39] LABS: Glucose, Whole Blood 277 mg/dL (60-115)
--- NOTE | 2020-07-06 23:41 | PC.NURSE ---
PT RESISTANT TO FURTHER CARE, ALERTED OF CONSEQUENCES OF NOT FOLLOWING UP WITH PCP OR ENDOCRINOLOGY. EDUCATED ON SIGNS OF HYPOGLYCEMIA WITH NEW GLIPIZIDE RX, AND IMPORTANCE OF REDUCING SUGAR INTAKE. FLUIDS INFUSED.
[2020-07-06 23:44] LABS: Glucose, Whole Blood 254 mg/dL (60-115)
[2020-07-06 23:44] LABS: Glucose, Whole Blood 260 mg/dL (60-115)
[2020-07-06 23:44] LABS: Glucose, Whole Blood 269 mg/dL (60-115)
[2020-07-07 07:07] LABS: Estimated Average Glucose 349 mg/dL; Hemoglobin A1c % 13.8 %
== END 2020-07-06 23:45 | disposition home or self-care (01) ==
PROVIDERS: Physician Assistant; Emergency Provider Emergency Medicine Emergency Medical Services; PCP Internal Medicine
DX: E11.9 Type 2 diabetes mellitus without complications (principal); R35.0 Frequency of micturition; R63.1 Polydipsia; Z79.899 Other long term (current) drug therapy
CPT/HCPCS: 36415; 80053; 81001; 81025; 82947; 83036; 85025; 94640; 96365; 96375; 99284

== ENCOUNTER 2021-06-11 14:14 | Inpatient (IN) | payer OTHER, SELFPAY ==
--- NOTE | ~2021-06-11 | FL_ITS ---
EXAMINATION: XR FLUOROSCOPY WITH IMAGES CLINICAL INFORMATION: Left ureteral stent placement. COMPARISON: CT abdomen/pelvis 06/11/2021 TECHNIQUE: Fluoroscopy performed by Dr. Aravind Agosto. Fluoroscopy time: 35.4 seconds DAP: 15.47 mGy Images: 2 FINDINGS: Images demonstrate a guidewire in the region of the left renal pelvis with subsequent placement of a presumed internally indwelling ureteral stent. Only the top is seen. FL/FL guidance in OR IMPRESSION: Fluoroscopy and spot films provided for ureteral stent placement.
--- NOTE | ~2021-06-11 | CT_ITS ---
EXAMINATION: CT ABDOMEN AND PELVIS WITH CONTRAST CLINICAL INFORMATION: Left-sided flank pain COMPARISON: None TECHNIQUE: Multidetector volumetric images were obtained from the superior aspect of the liver through the pubic symphysis following administration 85 mL of Omnipaque 350 intravenous contrast. Sagittal and coronal reformatted images were obtained on the technologist's workstation. Oral contrast: No This CT examination was performed using dose optimization techniques as appropriate, variously including the following: *Automated exposure control *Adjustment of mA and/or kV according to patient size (this includes techniques or standardized protocols for targeted exams where dose is matched to indication/reason for exam; i.e. extremities or head) *Use of iterative reconstruction technique DLP: 1021 mGy-cm FINDINGS: LUNG BASES: The visualized lung bases are unremarkable aside from bibasilar atelectasis.. LIVER, GALLBLADDER, AND BILIARY TREE: The liver is enlarged measuring 22.7 cm and demonstrates decreased attenuation consistent with hepatic steatosis. No focal hepatic lesion or biliary ductal dilatation is present. The gallbladder appears to be absent. PANCREAS: Unremarkable. Some inflammatory changes are present in the anterior pararenal space on the left with some increased soft tissue density and some peculiar tracks of air (see palacios images). Please correlate with patient's history. Did this patient ever have pancreatic surgery with possibly a cyst gastrostomy? SPLEEN: Unremarkable. ADRENAL GLANDS: Unremarkable. KIDNEYS AND URETERS: The right kidney appears normal aside from the presence of a 1.6 cm lower pole benign Bosniak class I cyst. This needs no further follow-up or imaging. On the left, there is an obstructing 5 mm calculus present in the proximal ureter with mild left-sided hydronephrosis. At least 3 nonobstructing intrarenal calculi are present. The obstructing stone measures 633 Hounsfield units and is routine cm from the posterior axillary line. No left-sided renal masses are seen. BLADDER: Unremarkable. GASTROINTESTINAL TRACT: The small and large bowel are unremarkable without evidence of obstruction. The appendix is none identified but there is no evidence of appendicitis.. ABDOMINAL WALL: There is marked atrophy of the abdominal wall musculature with diastases and bulging of abdominal contents. The mesh is present in the upper abdomen. LYMPH NODES: No retroperitoneal lymphadenopathy. VASCULAR: An IVC filter is in place. The aorta and iliofemoral vessels appear unremarkable. PELVIC VISCERA: An anteverted uterus is present. An IUD is present in the uterus which is positioned low. OSSEOUS STRUCTURES: There has been fixation in the lumbar spine with a prosthetic disc at L4-L5. CT/CT abdomen pelvis w con IMPRESSION: 1. Obstructing 6mm left proximal ureteral calculus with hydronephrosis. Additional nonobstructing left renal calculi present. 2. Enlarged fatty liver 3. Unusual inflammatory change in the anterior pararenal space as described above with question of fistula. This critical result was discussed with Ale FRANZ@7:33pm and it was ascertained that the content and urgency of the report was understood at the time of direct communication. Fleischner guidelines were followed.
--- NOTE | ~2021-06-11 | XR_ITS ---
EXAMINATION: XR CHEST CLINICAL INFORMATION: Shortness of breath. COMPARISON: Chest radiograph dated from 06/01/2020. TECHNIQUE: AP view of the chest was obtained. FINDINGS: Stable appearance of the cardiomediastinal silhouette. New midline tracheostomy tube is noted. Low lung volumes with mild increased interstitial thickening since 06/01/2020. No focal consolidation. No pleural effusion or pneumothorax. No acute osseous abnormalities. XR/XR chest 1V IMPRESSION: Questionable very mild increased interstitial prominence since 06/01/2020 which is nonspecific and could be related with bronchovascular crowding in the setting of low lung volumes. However, small airways disease could manifest similarly and cannot be excluded.
--- NOTE | 2021-06-11 15:01 | PC.NURSE ---
this nurse and tech was approached in triage by [facility] staff stating a patient was choking, upon this nurse and tech arriving to patient who was red in the face and attempting to breathe in obvious distress with her hands noting initially that she was choking, heimlich was attempted x1 by tech pt was shaking her head no, this nurse pulled the patients mask down and noted a trach with mucus coming out of the trach, pt was brought back to [facility] in attempts to clear her airway, this nurse used a yankauer to start clearing the mucus then performed suctioning x1 of the patient when supplies arrived to bedside. patients color returned after suction was performed and patient was able to then speak stating she needed an updraft, charge nurse brought patient to ED-5.
[2021-06-11 15:06] VITALS: BP 131/75; PULSE 108; RESP 24; TEMP 37; O2SAT 96
[2021-06-11 15:17] VITALS: O2SAT 100; BMI 33.3
--- NOTE | 2021-06-11 15:50 | ED.FEMALEGU ---
HPI - Female Genitourinary General Chief complaint: Urogenital-Female Stated complaint: UTI Time Seen by Provider: 06/11/21 15:04 Source: patient, family and EMS Mode of arrival: EMS Limitations: physical limitation (trach) History of Present Illness HPI Narrative: 50-year-old female presents for left flank pain that started this morning, and increased urination. Patient was recovering from a long hospital stay and has only been home for the last 3 weeks. Patient states she has had a lot of urination, but no dysuria. States urine is leaking out of her diaper. Pain in her left flank is an 8/10. And is constant She has had diarrhea and a lot of nausea. No abdominal pain, no vomiting. In November 2020, patient had an asthma attack and was intubated, she spent a long time at [facility], she had pancreatitis with surgical intervention, and was placed on a tracheostomy there. She was also in dialysis. Prior to this hospitalization her past medical history was asthma, bipolar, and diabetes. Her is at bedside, and states she is not on dialysis now, she has been transitioned to metformin and glipizide and is not currently on insulin. When patient 1st came in she was 93% on room air, and she was suctioned, and is now on 20% of oxygen through tracheostomy and is 100%. She denies chest pain or shortness of breath. states patient is just learning to walk again. Related Data Home Medications Medication Instructions Recorded Confirmed apixaban 5 mg tablet (Eliquis) 5 mg PO BID 06/11/21 atorvastatin 10 mg tablet 1 tab PO BEDTIME 06/11/21 clonazepam 1 mg tablet 1 tab PO BID PRN 06/11/21 dulaglutide 0.75 mg/0.5 mL 0.75 mg SUBCUT QWEEK 06/11/21 06/11/21 subcutaneous pen injector (Trulicity) fluticasone 250 mcg-salmeterol 50 1 puff INHALATION Q12H 06/11/21 mcg/dose blistr powdr for inhalation (Advair Diskus) furosemide 40 mg tablet 1 tab PO BID 06/11/21 glipizide 5 mg tablet 1 tab PO BID 06/11/21 lurasidone 40 mg tablet (Latuda) 1 tab PO QPM 06/11/21 metformin 500 mg tablet,extended 2 tab PO BID 06/11/21 release 24 hr oxcarbazepine 300 mg tablet 1 tab PO BID 06/11/21 trazodone 100 mg tablet 1 tab PO BEDTIME PRN 06/11/21 Previous Rx's Medication Instructions Recorded albuterol sulfate 2.5 mg/0.5 mL 5 mg INHALATION QID PRN #30 ea 06/01/20 solution for nebulization albuterol sulfate 90 mcg/actuation 2 puff INHALATION Q4-6H PRN #8.5 g 06/01/20 aerosol inhaler Allergies Allergy/AdvReac Type Severity Reaction Status Date / Time pantoprazole Allergy Unknown Verified 06/11/21 15:17 Review of Systems Constitutional: Constitutional: Denies body ache(s), Denies chills, Denies fatigue, Denies fever(s), Denies headache(s), Denies malaise and Denies weakness Eyes: Eyes: Denies diplopia ENT: Denies vertigo, Denies dizziness, Denies otalgia, Denies headache(s), Denies mouth pain, Denies post nasal drip, Denies sinus pain, Denies sinus pressure, Denies sore throat and Denies throat swelling Cardiovascular: Cardiovascular: Denies chest pain, Denies syncope, Denies leg edema, Denies lightheadedness, Denies Loss of Consciousness, Denies palpitations and Denies dyspnea Respiratory: Respiratory: Denies chest congestion, Denies cough and Denies dyspnea Gastrointestinal: Gastrointestinal: Denies abdominal pain, Denies hematochezia, Denies constipation, Denies diarrhea, Reports nausea and Denies vomiting Genitourinary: Genitourinary: Denies hematuria, Reports nocturia, Denies dysuria, Denies pelvic pain, Reports flank pain, Reports urinary incontinence and Reports urinary urgency Musculoskeletal: Musculoskeletal: Reports no additional musculoskeletal complaints Integumentary/Breasts: Skin/Breast: Reports wounds Neurologic: Denies confusion, Denies vertigo, Denies dizziness, Denies syncope, Denies headache(s) and Denies weakness Psychiatric: Psychiatric: Denies anxiety, Denies confusion and Denies depression Endocrine: Endocrine: Denies fatigue and Denies palpitations Allergic/Immunologic: Allergic/Immunologic: Denies throat swelling PMFSH Past Medical History Medical History Asthma Bipolar 1 disorder Diabetes Substance abuse Social History Social History Alcohol intake: never Patient Tobacco Use Status: Never used Tobacco Use of substances other than those prescribed or required for medical reasons: No Advance Directives: No Advance Directives Information Provided: Yes Physical Exam Vital Signs: Vital Signs: Last Vital Signs Temp 98.6 F 06/11/21 15:06 Pulse 105 H 06/11/21 17:34 Resp 22 H 06/11/21 17:34 BP 125/75 06/11/21 17:34 Pulse Ox 100 06/11/21 17:34 BMI result Body Mass Index 33.3 Const: General: alert, awake and ill appearing chronically; No confusion Nutritional Appearance: obese Orientation/consciousness: patient oriented x3 and No confusion Limitations: physical limitations (tracheostomy) HEENT: Head: Yes normal to inspection, Yes normocephalic and Yes atraumatic Ears: hearing grossly normal bilaterally, external ears normal, TM's normal bilaterally and EAC's normal General nose exam: Normal external nose present Face and sinus: Yes normal facial exam and Yes sinuses nontender Mouth: Normal oral and palatal mucosa present Throat: Yes posterior oropharynx normal Eyes: Conjunctivae: conjunctivae normal Pupils: Equal, round and reactive pupils present EOM: EOMs intact bilaterally Neck: Other: tracheostomy Neck: Yes no meningeal signs and Yes supple Resp: Effort & Inspection: normal respiratory effort and able to speak in complete sentences Auscultation: clear to auscultation bilaterally, no crackles, no rales, rhonchi and no wheezes Cardio: Rate: regular rate Rhythm: regular rhythm Heart sounds: S1 normal heart sound present and S2 normal heart sound present GI: Inspection: Yes Abdominal panniculus present, Yes obesity, Yes scar and Yes other (large heling wound ) Palpation (GI): Soft to palpation, nontender, no guarding and not rigid Percussion: Yes normal to percussion Auscultation: normal bowel sounds : General: Yes CVA tenderness on the left Back/Spine/Pelvis: Back: CVA tenderness Skin: Other: Wounds: wounds noted (center of abdomen) Neuro: General: patient oriented x3, no meningeal signs and No confusion Cranial nerves: Yes Equal, round and reactive pupils present Extrem: General: Yes normal to inspection and Yes full ROM Psych: Appearance: grossly normal Affect: normal affect Attitude: cooperative Thought process: Normal thought process present Course Course Course Narrative: 50-year-old female presents for left flank pain and increased duration and urgency that started today. Patient has just been home for the last 3 weeks from a month's long stay of hospitalization and rehab, patient has a trach and a large healing surgical wound in her abdomen. Patient thinks that the rehab did not keep her clean and this contributed to a possible urinary tract infection. No fevers. On exam, patient is chronically ill-appearing, heart rate 108, respiratory rate 24. Lungs are coarse and mildly rhonchorous, patient does not want a breathing treatment or to be sectioned again. Patient has left CVA tenderness, abdomen is soft and nontender, however abdomen has large healing wound in the center. No tenderness to palpation. There is some mild purulence at the wound margin at lower left quadrant the patient's abdomen will get urine, CT abdomen pelvis, labs, lactic, blood culture, chest x-ray, troponin, EKG, lipase. Reevaluation(s) Reevaluation #1: Patient has no leukocytosis, WBC count 8.8. patient is anemic with an H&H of 9.9 and 31.1. Creatinine is 1.11. Patient has a lactate of 2.8. Lab tried for 2 hour be drawn could not obtain a redraw lactate. Urine is infected and has hematuria. Patient's lipase is 7. Reevaluation #2: Discussed the following findings with radiologist Dr. Anderson CT/CT abdomen pelvis w con IMPRESSION: 1.? Obstructing 6mm left proximal ureteral calculus with hydronephrosis. Additional nonobstructing left renal calculi present. 2.? Enlarged fatty liver? 3.? Unusual inflammatory change in the anterior pararenal space as described above with question of fistula. [place] text with Dr Agosto; he would like her on antibiotics, admitted, and to do a stent tomorrow. Discussed with Dr Doyle, who will review her [facility] records, and decide if she is appropriate for [place]. MDM - Female Genitourinary Lab Data Result diagrams: 06/11/21 16:43 06/11/21 16:47 Labs: Lab Results 06/11/21 06/11/2106/11/22 Range/Units 16:43 16:43 16:43 WBC 8.8 (4.8-10.8) X10*3/uL RBC 3.59 L (4.20-5.50) X10*6/uL Hgb 9.9 L (12.0-16.0) g/dl Hct 31.1 L (37.0-47.0) % MCV 86.6 (80.0-98.0) fL MCH 27.6 (27.0-33.0) pg MCHC 31.8 (31.0-35.0) g/dl RDW 14.5 (11.0-16.0) % Plt Count 406 H (160-400) X10*3/uL MPV 9.4 (9.4-12.3) fL Immature Gran % (Auto) 0.3 (0.0-0.4) % Neut % (Auto) 79.5 H (45-73) % Lymph % (Auto) 11.4 L (20-40) % [place] % (Auto) 6.2 (2-11) % Eos % (Auto) 2.1 (0-4) % Baso % (Auto) 0.5 (0-2) % Lymph # (Auto) 1.0 L (1.2-4.9) X10*3/uL [place] # (Auto) 0.5 (0.1-1.2) X10*3/uL Eos # (Auto) 0.2 (0.0-0.4) X10*3/uL Baso # (Auto) 0.0 (0.0-0.2) X10*3/uL Abs Immat Gran (auto) 0.03 (0.00-0.03) X10*3/uL Absolute Neuts (auto) 7.0 (2.0-8.3) x10*3/uL Absolute Nucleated RBC 0.000 (0.0-0.012) X10*3/uL Nucleated RBC % (auto) 0.0 (0.0-0.2) /100WBC Sodium (135-145) mmol/L Potassium (3.3-5.1) mmol/L Chloride (96-108) mmol/L Carbon Dioxide (22-29) mmol/L Anion Gap (12-20) BUN (9-16) mg/dL Creatinine (0.5-1.4) mg/dL Estim Creat Clear Calc Estimated GFR Random Glucose (60-115) mg/dL Lactic Acid 2.8 H* (0.5-2.0) mmol/L Calcium (8.4-10.2) mg/dL Total Bilirubin (0.0-1.0) mg/dL AST (5-31) U/L ALT (0-31) U/L Alkaline Phosphatase (39-117) U/L Troponin I High Sens (<3.5-17.0) ng/L Total Protein (6.5-8.0) g/dL Albumin (3.5-5.0) g/dL Lipase 7 L (8-78) U/L Beta HCG, Quant < 2 mIU/mL Urine Color Urine Appearance Urine pH (5.0-8.0) Ur Specific [place] (1.005-1.025) Urine Protein (NEG-TRACE) MG/DL Urine Glucose (UA) (NEG) MG/DL Urine Ketones (NEG) MG/DL Urine Blood (NEG) Urine Nitrite (NEG) Ur Leukocyte Esterase (NEG) Urine RBC (0) /HPF Urine WBC (0-4) /HPF Ur Squamous Epith Cells /LPF Calcium Oxalate Crystal /LPF Urine Bacteria /LPF Urine Test (NEGATIVE) 06/11/21 06/11/21 06/11/21 Range/Units 16:43 16:47 17:23 WBC (4.8-10.8) X10*3/uL RBC (4.20-5.50) X10*6/uL Hgb (12.0-16.0) g/dl Hct (37.0-47.0) % MCV (80.0-98.0) fL MCH (27.0-33.0) pg MCHC (31.0-35.0) g/dl RDW (11.0-16.0) % Plt Count (160-400) X10*3/uL MPV (9.4-12.3) fL Immature Gran % (Auto) (0.0-0.4) % Neut % (Auto) (45-73) % Lymph % (Auto) (20-40) % [place] % (Auto) (2-11) % Eos % (Auto) (0-4) % Baso % (Auto) (0-2) % Lymph # (Auto) (1.2-4.9) X10*3/uL [place] # (Auto) (0.1-1.2) X10*3/uL Eos # (Auto) (0.0-0.4) X10*3/uL Baso # (Auto) (0.0-0.2) X10*3/uL Abs Immat Gran (auto) (0.00-0.03) X10*3/uL Absolute Neuts (auto) (2.0-8.3) x10*3/uL Absolute Nucleated RBC (0.0-0.012) X10*3/uL Nucleated RBC % (auto) (0.0-0.2) /100WBC Sodium 137 (135-145) mmol/L Potassium 3.7 (3.3-5.1) mmol/L Chloride 99 (96-108) mmol/L Carbon Dioxide 28 (22-29) mmol/L Anion Gap 14 (12-20) BUN 10 (9-16) mg/dL Creatinine 1.11 (0.5-1.4) mg/dL Estim Creat Clear Calc 64.3 Estimated GFR 52 Random Glucose 88 D (60-115) mg/dL Lactic Acid (0.5-2.0) mmol/L Calcium 9.9 D (8.4-10.2) mg/dL Total Bilirubin 0.2 (0.0-1.0) mg/dL AST 15 (5-31) U/L ALT 17 (0-31) U/L Alkaline Phosphatase 364 H D (39-117) U/L Troponin I High Sens 6.4 (<3.5-17.0) ng/L Total Protein 6.3 L (6.5-8.0) g/dL Albumin 3.2 L (3.5-5.0) g/dL Lipase (8-78) U/L Beta HCG, Quant mIU/mL Urine Color YELLOW Urine Appearance CLOUDY Urine pH 6.0 (5.0-8.0) Ur Specific [place] 1.010 (1.005-1.025) Urine Protein TRACE (NEG-TRACE) MG/DL Urine Glucose (UA) NEG (NEG) MG/DL Urine Ketones NEG (NEG) MG/DL Urine Blood 3+ H (NEG) Urine Nitrite NEG (NEG) Ur Leukocyte Esterase 3+ H (NEG) Urine RBC 50-75 H (0) /HPF Urine WBC 50-75 H (0-4) /HPF Ur Squamous Epith Cells 2+ /LPF Calcium Oxalate Crystal 1+ /LPF Urine Bacteria 4+ /LPF Urine Test (NEGATIVE) 06/11/21 Range/Units 17:23 WBC (4.8-10.8) X10*3/uL RBC (4.20-5.50) X10*6/uL Hgb (12.0-16.0) g/dl Hct (37.0-47.0) % MCV (80.0-98.0) fL MCH (27.0-33.0) pg MCHC (31.0-35.0) g/dl RDW (11.0-16.0) % Plt Count (160-400) X10*3/uL MPV (9.4-12.3) fL Immature Gran % (Auto) (0.0-0.4) % Neut % (Auto) (45-73) % Lymph % (Auto) (20-40) % [place] % (Auto) (2-11) % Eos % (Auto) (0-4) % Baso % (Auto) (0-2) % Lymph # (Auto) (1.2-4.9) X10*3/uL [place] # (Auto) (0.1-1.2) X10*3/uL Eos # (Auto) (0.0-0.4) X10*3/uL Baso # (Auto) (0.0-0.2) X10*3/uL Abs Immat Gran (auto) (0.00-0.03) X10*3/uL Absolute Neuts (auto) (2.0-8.3) x10*3/uL Absolute Nucleated RBC (0.0-0.012) X10*3/uL Nucleated RBC % (auto) (0.0-0.2) /100WBC Sodium (135-145) mmol/L Potassium (3.3-5.1) mmol/L Chloride (96-108) mmol/L Carbon Dioxide (22-29) mmol/L Anion Gap (12-20) BUN (9-16) mg/dL Creatinine (0.5-1.4) mg/dL Estim Creat Clear Calc Estimated GFR Random Glucose (60-115) mg/dL Lactic Acid (0.5-2.0) mmol/L Calcium (8.4-10.2) mg/dL Total Bilirubin (0.0-1.0) mg/dL AST (5-31) U/L ALT (0-31) U/L Alkaline Phosphatase (39-117) U/L Troponin I High Sens (<3.5-17.0) ng/L Total Protein (6.5-8.0) g/dL Albumin (3.5-5.0) g/dL Lipase (8-78) U/L Beta HCG, Quant mIU/mL Urine Color Urine Appearance Urine pH (5.0-8.0) Ur Specific [place] (1.005-1.025) Urine Protein (NEG-TRACE) MG/DL Urine Glucose (UA) (NEG) MG/DL Urine Ketones (NEG) MG/DL Urine Blood (NEG) Urine Nitrite (NEG) Ur Leukocyte Esterase (NEG) Urine RBC (0) /HPF Urine WBC (0-4) /HPF Ur Squamous Epith Cells /LPF Calcium Oxalate Crystal /LPF Urine Bacteria /LPF Urine Test NEGATIVE (NEGATIVE) Discharge Plan Discharge Clinical Impression: UTI (urinary tract infection), Hydronephrosis with obstructing calculus Patient Disposition: Admitted As Inpatient
--- NOTE | 2021-06-11 15:55 | ECG_ITS ---
Test Reason : dyspnea Blood Pressure : / mmHG Vent. Rate : 099 BPM Atrial Rate : 099 BPM P-R Int : 178 ms QRS Dur : 082 ms QT Int : 352 ms P-R-T Axes : 041 -10 032 degrees QTc Int : 451 ms Normal sinus rhythm Cannot rule out Anterior infarct , age undetermined Abnormal ECG When compared with ECG of 12-JAN-2020 23:07, Minimal criteria for Anterior infarct are now Present Referred By: Ale Callejas Electronically Signed By:DENIS GAMBINO
[2021-06-11 16:54] LABS: MANUAL DIFF FLAG NO
[2021-06-11 16:57] VITALS: BP 132/97; PULSE 105; RESP 19; O2SAT 100
[2021-06-11 17:07] LABS: Basophils Percent Auto 0.5 % (0-2); Eosinophils Absolute Auto 0.2 X10*3/uL (0.0-0.4); Eosinophils Percent Auto 2.1 % (0-4); Hematocrit 31.1 % (37.0-47.0); Hemoglobin 9.9 g/dl (12.0-16.0); Imm Gran Abs Auto 0.03 X10*3/uL (0.00-0.03); Imm Gran Pct Auto 0.3 % (0.0-0.4); Lymphocytes Percent Auto 11.4 % (20-40); Mean Corpuscular HGB Conc 31.8 g/dl (31.0-35.0); Mean Corpuscular Hemoglobin 27.6 pg (27.0-33.0); Mean Corpuscular Volume 86.6 fL (80.0-98.0); Mean Platelet Volume 9.4 fL (9.4-12.3); Monocytes Absolute Auto 0.5 X10*3/uL (0.1-1.2); Monocytes Percent Auto 6.2 % (2-11); Neutrophils Percent Auto 79.5 % (45-73); Platelet Count 406 X10*3/uL (160-400); Red Blood Count 3.59 X10*6/uL (4.20-5.50); Red Cell Distribution Width 14.5 % (11.0-16.0); White Blood Count 8.8 X10*3/uL (4.8-10.8)
[2021-06-11 17:10] LABS: Lactic Acid 2.8 mmol/L (0.5-2.0)
[2021-06-11 17:17] LABS: Lipase 7 U/L (8-78)
[2021-06-11 17:22] LABS: Troponin-I High Sensitivity 6.4 ng/L (<3.5-17.0)
[2021-06-11 17:24] LABS: HCG Quantitative < 2 mIU/mL
[2021-06-11] MEDS: 0.9 % Sodium Chloride 1,000 ML 999 ML IV ×2 (17:29→20:20)
[2021-06-11] MEDS: Morphine Sulfate 4 MG/ML CARTRIDGE IVPUSH (17:30)
[2021-06-11 17:33] LABS: Alanine Aminotransferase 17 U/L (0-31); Albumin Level 3.2 g/dL (3.5-5.0); Alkaline Phosphatase 364 U/L (39-117); Anion Gap 14 (12-20); Aspartate Amino Transferase 15 U/L (5-31); Bilirubin Total 0.2 mg/dL (0.0-1.0); Blood Urea Nitrogen 10 mg/dL (9-16); Calcium 9.9 mg/dL (8.4-10.2); Carbon Dioxide 28 mmol/L (22-29); Chloride 99 mmol/L (96-108); Creatinine Clr Calc Pharmacy 64.3; Estimated Glomerular Filt Rate 52; Glucose Random 88 mg/dL (60-115); Potassium 3.7 mmol/L (3.3-5.1); Sodium 137 mmol/L (135-145); Total Protein 6.3 g/dL (6.5-8.0)
[2021-06-11 17:34] VITALS: BP 125/75; PULSE 105; RESP 22; O2SAT 100
[2021-06-11 17:34] LABS: UPreg QC Valid YES; Urine Pregnancy NEGATIVE (NEGATIVE)
[2021-06-11 17:48] LABS: Appearance Urine CLOUDY; Color Urine YELLOW; Glucose Urine UA NEG (NEG); Leukocyte Esterase Urine 3+ (NEG); Nitrite Urine NEG (NEG); UACC Culture Trigger YES; Urine Blood 3+ (NEG); Urine Ketones NEG (NEG); Urine Protein TRACE MG/DL (NEG-TRACE)
[2021-06-11 18:27] LABS: Bacteria Urine 4+ /LPF; Calcium Oxalate Crystals Urine 1+ /LPF
[2021-06-11 18:28] LABS: RBC Urine 50-75 /HPF (0); Squamous Epithelial Cell Urine 2+ /LPF; WBC Urine 50-75 /HPF (0-4)
[2021-06-11] MEDS: iohexoL 350 MG/ML 100 ML INFUS..BTL IV (18:38)
[2021-06-11 18:52] LABS: Reflex Lactate? Lactic Acid Added
[2021-06-11] MEDS: Morphine Sulfate 2 MG/ML CARTRIDGE IVPUSH (19:31)
[2021-06-11] MEDS: HYDROmorphone HCl 0.5 MG/0.5 ML SYRINGE IVPUSH ×2 (20:20→21:44)
[2021-06-11] MEDS: cefTRIAXone sodium 2 GM in 0.9 % Sodium Chloride 50 ML IV (20:20)
--- NOTE | 2021-06-11 20:22 | P.HPHOSP_ITS ---
History of Present Illness Date of Service: 06/11/21 Chief Complaint: Left flank pain 50-year-old female with a past medical history of hypertension, diabetes, obesity, sleep apnea, history of asthma, history of respiratory failure secondary to asthma requiring intubation in October of 2020 [facility]; recent time had gallstone pancreatitis-underwent laparoscopic cholecystectomy-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 requiring exploratory laparotomy and debridement, further complicated by transverse colon perforation with resultant several colon cutaneous fistula and had subsequent skin graft placed on the ventral abdominal wound; during the same period She had prolonged hospital course with multiple episodes of hypercapnic respiratory failure requiring multiple admissions; A percutaneous tracheostomy was created in November of 2020 and she was decann ulated March 05-> currently follows with tracheostomy clinic; has been home for the past few weeks; presented to the hospital today with a chief complaint of left flank pain. Patient reports that she has been having burning micturition, reports he has not been cleaned well when she was at the rehab; currently denies any burning urination. But complains of left flank pain started this morning; associated nausea; denies any diarrhea. Denies any anterior abdominal pain. Reports she has skin graft and is always form on active abdomen and has multiple cutaneous fistulous which have been gradually healing. Patient denies any cough or sputum production. Denies any chest pain or palpitations. Denies any nausea vomiting or diarrhea. Review of all other systems is negative except mentioned above ER course: Per ER team patient had CT abdomen which showed 5 mm obstructing renal calculus with left-sided mild hydronephrosis. Also noted chronic finding related to her surgery. Urinalysis abnormal consistent UTI. Given antibiotics. Also notify Dr. Agosto from Urology who suggested admission to the medicine service and will plan for stent in the morning. [facility] Medical History Asthma Bipolar 1 disorder Diabetes Kidney stones Substance abuse Takotsubo cardiomyopathy UTI (urinary tract infection) Wound drainage Surgical History H/O exploratory laparotomy S/P cholecystectomy S/P ureteral stent placement Social History Household Members: Spouse Housing: Apartment Do you presently have visiting nurse or other home services: Yes (visiting nurses, pt/ot) Alcohol intake: never Patient Tobacco Use Status: Never used Tobacco Advance Directives: No service: No Current occupational status: disabled Meds Allergies Allergy/AdvReac Type Severity Reaction Status Date / Time pantoprazole Allergy Unknown Verified 09/11/21 10:43 Active Medications: Current Medications Sodium Chloride (Ns) 1,000 mls @ 999 mls/hr IV .Q1H1M RILEY Stop: 06/11/21 20:45 Last Admin: 06/11/21 20:20 Dose: 999 mls/hr Documented by: Home Medications Medication Instructions Recorded Confirmed Last Taken Type albuterol sulfate 2.5 mg/0.5 mL 2.5 mg inhalation Q4H PRN 06/11/21 06/27/21 06/26/21 History solution for nebulization shortness of breath or wheezing apixaban 5 mg tablet (Eliquis) 5 mg PO BID 06/11/21 06/27/21 06/26/21 History atorvastatin 10 mg tablet 1 tab PO BEDTIME 06/11/21 06/27/21 06/26/21 History clonazepam 1 mg tablet 1 tab PO BID PRN Anxiety 06/11/21 06/27/21 06/26/21 History furosemide 40 mg tablet 1 tab PO DAILY 06/11/21 06/27/21 06/26/21 History glipizide 5 mg tablet 1 tab PO BIDAC 06/11/21 06/27/21 06/26/21 History lurasidone 40 mg tablet (Latuda) 1 tab PO BEDTIME 06/11/21 06/27/21 06/26/21 History metformin 500 mg tablet,extended 2 tab PO BIDAC 06/11/21 06/27/21 06/11/21 History release 24 hr trazodone 100 mg tablet 1 tab PO BEDTIME PRN Sleep 06/11/21 06/27/21 06/26/21 History escitalopram oxalate 20 mg tablet 1 tab PO DAILY 06/26/21 06/27/21 06/26/21 History promethazine 25 mg tablet 1 tab PO Q8H PRN Nausea 06/26/21 06/27/21 06/26/21 History albuterol sulfate mg inhalation Q4H PRN wheezing 09/11/21 Unknown History albuterol sulfate 90 mcg/actuation 2 puff inhalation Q4H PRN wheezing 09/11/21 Unknown History aerosol inhaler (ProAir HFA) famotidine 20 mg tablet 20 mg PO BID 09/11/21 Unknown History fluticasone propionate 50 1 spray intranasal DAILY 09/11/21 Unknown History mcg/actuation nasal spray,suspension lurasidone 60 mg tablet (Latuda) 60 mg PO BEDTIME 09/11/21 Unknown History oxcarbazepine 300 mg tablet 300 mg PO BID 09/11/21 Unknown History Physical Exam Vital Signs and Narrative: Vital Signs: Last Vital Signs Temp 98.6 F 06/11/21 15:06 Pulse 105 H 06/11/21 17:34 Resp 22 H 06/11/21 17:34 BP 125/75 06/11/21 17:34 Pulse Ox 100 06/11/21 17:34 BMI result Body Mass Index 33.3 Gen: Appears be in no acute distress. HEENT: NCAT, Moist mucosa. Has trach collar-on supplemental oxygen via trach mask Pulmonary: Mildly coarse breath sounds. CVS: Normal S1-S2 Abdomen: BS+, Soft, Nontender; has anterior abdominal wound graft; surrounding fistulas; chronic and stable per patient; tender in the left flank. Extremities: Warm well perfused Neuro: Alert and awake. Results Labs CBC and Chem 7: 06/13/21 05:44 06/13/21 05:44 Labs: Laboratory Results - last 24 hr 06/11/21 06/11/21 06/11/21 16:43 16:43 16:43 MCV 86.6 MCH 27.6 MCHC 31.8 RDW 14.5 Plt Count 406 H MPV 9.4 Immature Gran % (Auto) 0.3 Neut % (Auto) 79.5 H Lymph % (Auto) 11.4 L [place] % (Auto) 6.2 Eos % (Auto) 2.1 Baso % (Auto) 0.5 Lymph # (Auto) 1.0 L [place] # (Auto) 0.5 Eos # (Auto) 0.2 Baso # (Auto) 0.0 Abs Immat Gran (auto) 0.03 Absolute Neuts (auto) 7.0 Absolute Nucleated RBC 0.000 Nucleated RBC % (auto) 0.0 Anion Gap Estim Creat Clear Calc Estimated GFR Random Glucose Lactic Acid 2.8 H* Calcium Total Bilirubin AST ALT Alkaline Phosphatase Troponin I High Sens Total Protein Albumin Lipase 7 L Beta HCG, Quant < 2 Urine Color Urine Appearance Urine pH Ur Specific [place] Urine Protein Urine Glucose (UA) Urine Ketones Urine Blood Urine Nitrite Ur Leukocyte Esterase Urine RBC Urine WBC Ur Squamous Epith Cells Calcium Oxalate Crystal Urine Bacteria Urine Test 06/11/21 06/11/21 06/11/21 16:43 16:47 17:23 MCV MCH MCHC RDW Plt Count MPV Immature Gran % (Auto) Neut % (Auto) Lymph % (Auto) [place] % (Auto) Eos % (Auto) Baso % (Auto) Lymph # (Auto) [place] # (Auto) Eos # (Auto) Baso # (Auto) Abs Immat Gran (auto) Absolute Neuts (auto) Absolute Nucleated RBC Nucleated RBC % (auto) Anion Gap 14 Estim Creat Clear Calc 64.3 Estimated GFR 52 Random Glucose 88 D Lactic Acid Calcium 9.9 D Total Bilirubin 0.2 AST 15 ALT 17 Alkaline Phosphatase 364 H D Troponin I High Sens 6.4 Total Protein 6.3 L Albumin 3.2 L Lipase Beta HCG, Quant Urine Color YELLOW Urine Appearance CLOUDY Urine pH 6.0 Ur Specific [place] 1.010 Urine Protein TRACE Urine Glucose (UA) NEG Urine Ketones NEG Urine Blood 3+ H Urine Nitrite NEG Ur Leukocyte Esterase 3+ H Urine RBC 50-75 H Urine WBC 50-75 H Ur Squamous Epith Cells 2+ Calcium Oxalate Crystal 1+ Urine Bacteria 4+ Urine Test 06/11/21 17:23 MCV MCH MCHC RDW Plt Count MPV Immature Gran % (Auto) Neut % (Auto) Lymph % (Auto) [place] % (Auto) Eos % (Auto) Baso % (Auto) Lymph # (Auto) [place] # (Auto) Eos # (Auto) Baso # (Auto) Abs Immat Gran (auto) Absolute Neuts (auto) Absolute Nucleated RBC Nucleated RBC % (auto) Anion Gap Estim Creat Clear Calc Estimated GFR Random Glucose Lactic Acid Calcium Total Bilirubin AST ALT Alkaline Phosphatase Troponin I High Sens Total Protein Albumin Lipase Beta HCG, Quant Urine Color Urine Appearance Urine pH Ur Specific [place] Urine Protein Urine Glucose (UA) Urine Ketones Urine Blood Urine Nitrite Ur Leukocyte Esterase Urine RBC Urine WBC Ur Squamous Epith Cells Calcium Oxalate Crystal Urine Bacteria Urine Test NEGATIVE Imaging Radiologist's Impressions: Impressions Chest X-Ray 06/11/21 17:38 IMPRESSION: Questionable very mild increased interstitial prominence since 06/01/2020 which is nonspecific and could be related with bronchovascular crowding in the setting of low lung volumes. However, small airways disease could manifest similarly and cannot be excluded. Abdomen/Pelvis CT 06/11/21 18:39 IMPRESSION: 1. Obstructing 6mm left proximal ureteral calculus with hydronephrosis. Additional nonobstructing left renal calculi present. 2. Enlarged fatty liver 3. Unusual inflammatory change in the anterior pararenal space as described above with question of fistula. This critical result was discussed with Ale FRANZ@7:33pm and it was ascertained that the content and urgency of the report was understood at the time of direct communication. Fleischner guidelines were followed. Assessment and Plan (1) UTI (urinary tract infection): Status: Resolved (2) Hydronephrosis with obstructing calculus: Status: Resolved Plan 50-year-old female with a past medical history of hypertension, diabetes, obesity, sleep apnea, history of asthma, history of respiratory failure secondary to asthma requiring intubation in October of 2020 [facility]; recent time had gallstone pancreatitis-underwent laparoscopic cholecystectomy-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 requiring exploratory laparotomy and debridement, further complicated by transverse colon perforation with resultant several colon cutaneous fistula and had subsequent skin graft placed on the ventral abdominal wound; during the same period She had prolonged hospital course with multiple episodes of hypercapnic respiratory failure requiring multiple admissions; A percutaneous tracheostomy was created in November of 2020 and she was decannulated March 05-> currently follows with tracheostomy clinic; has been home for the past few weeks; presented to the hospital today with a chief complaint of left flank pain. Noted to have UTI/renal calculi hydronephrosis. Admitted for further management. UTI: Continue ceftriaxone. Follow up cultures Obstructing Renal calculus with left-sided hydronephrosis: Dr. Agosto from urology was notified. Recommended admission to the medicine service and possible stent in the morning. Pain control Microscopic hematuria: In the setting of UTI/renal stone. Urology follow-up. History of diabetes: Insulin sliding scale. Hold home oral hypoglycemic agents History of tracheal stenosis/tracheomalacia status post tracheostomy: Currently breathing comfortably via trach mask. History of multiple abdominal surgeries/cutaneous fistulous: Chronic. Supportive care. No new change in her abdominal wall erythema for patient. Patient has been with general surgery team at [facility]. History of asthma: Currently stable. [place] DVT prophylaxis: Patient on Eliquis Code status: Full code Quality Stroke Does the patient have a stroke diagnosis?: No VTE Prior VTE?: No VTE Risk Level:: Medical - moderate - high VTE Device Contraindication: Treatment Not Tolerated VTE Drug Contraindication: N/A - Med Ordered
[2021-06-11] MEDS: ondansetron HCL 4 MG/2 ML VIAL IVPUSH (20:24)
--- NOTE | 2021-06-11 20:30 | PC.NURSE ---
patient medicated per order
--- NOTE | 2021-06-11 21:33 | PHA.MEDREC ---
Pharmacy Consult ? Medication Reconciliation Pharmacy has completed the medication reconciliation. Patient says they no longer take advair or trulicity
[2021-06-11] MEDS: Ketorolac Tromethamine 15 MG/ML VIAL IVPUSH (21:44)
--- NOTE | 2021-06-11 21:48 | PC.NURSE ---
pt medicated with toradol and dilaudid as charted.
[2021-06-11 21:49] VITALS: BP 127/63; PULSE 122; RESP 25; O2SAT 98
[2021-06-11 23:57] LABS: COVID-19 Test Negative (Negative)
[2021-06-12] VITALS (30 sets, daily range): BP systolic 88–164; BP diastolic 39–70; PULSE 83–127; RESP 15–20; TEMP 36.7–39.7; O2SAT 95–100; BMI 33.3
[2021-06-12] MEDS: HYDROmorphone HCl 1 MG/ML SYRINGE 0.6 MG IVPUSH ×5 (00:05→21:33)
[2021-06-12 00:07] LABS: ~Lactic Acid-LAB USE ONLY 1.4 mmol/L (0.5-2.0)
[2021-06-12 00:16] LABS: Troponin-I High Sensitivity 8.6 ng/L (<3.5-17.0)
[2021-06-12] MEDS: 0.9 % Sodium Chloride 500 ML IV (00:23)
[2021-06-12] MEDS: Albuterol Sulfate (0.083%) 2.5 MG/3 ML VIAL.NEB INHALE ×2 (01:28→07:20)
[2021-06-12] MEDS: 0.9 % Sodium Chloride Flush 3 ML SYRINGE IVFLUSH ×4 (02:11→21:34)
[2021-06-12 03:20] LABS: Glucose, Whole Blood 102 mg/dL (60-115)
[2021-06-12] MEDS: Acetaminophen 325 MG TABLET 650 MG PO (07:34)
--- NOTE | 2021-06-12 07:42 | PC.NURSE ---
0605; lab called with positive blood cultures 1 of 2; gram negative rods. Dr. Joseph notified via [facility]. No new orders at this time
[2021-06-12 08:06] LABS: Glucose, Whole Blood 95 mg/dL (60-115)
[2021-06-12] MEDS: OXcarbazepine 300 MG TABLET PO ×2 (08:52→21:33)
--- NOTE | 2021-06-12 08:57 | PM.UROCN ---
History of Present Illness Consult details Consult date: 06/12/21 Narrative: Anna Marie is a 50-year-old female Complicated medical history Admission to [facility] October 2020 with asthma exacerbation. Subsequent gallstone pancreatitis with pancreatic necrosis followed by multiple abdominal procedures and loss of abdominal wall integrity. Ongoing management for intracutaneous fistulas. Presents with elevated white count left flank pain. CT scan shows 4 mm left ureteric stone Currently being given antibiotics and fluid. Is stable blood pressure and WBC 8.8. Creatinine 1.1 Will plan stenting for later today Review of Systems Constitutional: Constitutional: Reports as per HPI and Reports no additional constitutional complaints Cardiovascular: Cardiovascular: Reports as per HPI and Reports no additional cardiovascular complaints Respiratory: Respiratory: Reports as per HPI and Reports no additional respiratory complaints Gastrointestinal: Gastrointestinal: Reports as per HPI and Reports no additional gastrointestinal complaints Genitourinary: Genitourinary: Reports as per HPI Musculoskeletal: Musculoskeletal: Reports no additional musculoskeletal complaints and Reports as per HPI Neurologic: Reports system reviewed and no additional complaints, except as documented and Reports as per HPI PMFSH Past Medical History Medical History Asthma Bipolar 1 disorder Diabetes Substance abuse Social History Social History Household Members: Spouse Housing: Apartment Do you presently have visiting nurse or other home services: Yes (visiting nurses, pt/ot) Alcohol intake: never Patient Tobacco Use Status: Never used Tobacco Use of substances other than those prescribed or required for medical reasons: No Have you been hit, kicked, punched, or otherwise hurt by someone within the past year? If so, by whom?: No Do you feel safe in your current relationship?: Yes Is there a partner from a previous relationship who is making you feel unsafe now?: No Are you made to feel afraid or neglected: No Advance Directives: No Advance Directives Information Provided: Yes Do you have thoughts of harming others: None Do you have a plan to hurt others: No Plan Recently lost weight without trying: No Nutrition Risks: No Nutritional Risk service: No Current occupational status: disabled Meds Allergies Allergy/AdvReac Type Severity Reaction Status Date / Time pantoprazole Allergy Unknown Verified 06/11/21 15:17 Active Medications: Current Medications Acetaminophen (Acetaminophen 325 Mg Tablet) 650 mg PO Q6H PRN PRN Reason: Pain, Mild (Pain Scale 1-3) Last Admin: 06/12/21 07:34 Dose: 650 mg Documented by: Albuterol Sulfate (Albuterol Sulfate 90 Mcg 8 Gm Inhaler) 2 puff INHALE Q4H PRN PRN Reason: shortness of breath or wheezing Albuterol Sulfate (Albuterol Sulfate (0.083%) 2.5 Mg/3 Ml Vial.Neb) 2.5 mg INHALE Q4H PRN PRN Reason: shortness of breath or wheezing Last Admin: 06/12/21 07:20 Dose: 2.5 mg Documented by: Albuterol/Ipratropium (Albuterol/Iprat 2.5/0.5mg 3 Ml Ampul.Neb) 3 ml INHALE RQ6H WHILE AWAKE RILEY Apixaban (Apixaban 5 Mg Tablet) 5 mg PO BID [facility] Last Admin: 06/12/21 07:38 Dose: Not Given Documented by: Atorvastatin Calcium (Atorvastatin Calcium 10 Mg Tablet) 10 mg PO BEDTIME RILEY Clonazepam (Clonazepam 1 Mg Tablet) 1 mg PO BID PRN PRN Reason: Anxiety Dextrose (Dextrose 50 % 25 Gm/50 Ml Vial) 25 gm IVPUSH Q15M PRN; Protocol PRN Reason: per Hypoglycemia Standing Ord. Glucose (Glucose Gel 15 Gm Gel..Gram.) 15 gm PO Q15M PRN; Protocol PRN Reason: per Hypoglycemia Standing Ord. Hydromorphone HCl (Hydromorphone Hcl 1 Mg/Ml Syringe) 0.6 mg IVPUSH Q4H PRN; Protocol PRN Reason: Breakthrough Pain Last Admin: 06/12/21 08:49 Dose: 0.6 mg Documented by: Ceftriaxone Sodium 1 gm/ (Sodium Chloride) 50 mls @ 100 mls/hr IV Q24H [facility] Insulin Human Lispro (Insulin Lispro 100 Unit/Ml 3 Ml Vial) 0 unit SUBCUT QIDACHS [facility]; Protocol Last Admin: 06/12/21 07:37 Dose: Not Given Documented by: Lurasidone HCl (Lurasidone Hcl 40 Mg Tablet) 40 mg PO BEDTIME RILEY Melatonin (Melatonin 3 Mg Tablet) 6 mg PO BEDTIME PRN PRN Reason: Insomnia Oxcarbazepine (Oxcarbazepine 300 Mg Tablet) 300 mg PO BID [facility] Last Admin: 06/12/21 08:52 Dose: 300 mg Documented by: Pharmacy Consult (Consult Rx Perform Med Rec) 1 each MISCELLANE ONCE PRN PRN Reason: Consult order Sodium Chloride (0.9 % Sodium Chloride Flush 3 Ml Syringe) 3 ml IVFLUSH QSHIFT [facility] Last Admin: 06/12/21 07:36 Dose: 3 ml Documented by: Temazepam (Temazepam 15 Mg Capsule) 15 mg PO BEDTIME PRN PRN Reason: Insomnia Trazodone HCl (Trazodone Hcl 100 Mg Tablet) 100 mg PO BEDTIME PRN PRN Reason: Sleep Home Medications Medication Instructions Recorded Confirmed Last Taken Type albuterol sulfate 2.5 mg/0.5 mL 2.5 mg INHALATION Q4H PRN 06/11/21 06/11/21 Unknown History solution for nebulization apixaban 5 mg tablet (Eliquis) 5 mg PO BID 06/11/21 06/11/21 06/11/21 History atorvastatin 10 mg tablet 1 tab PO BEDTIME 06/11/21 06/11/21 06/10/21 History clonazepam 1 mg tablet 1 tab PO BID PRN 06/11/21 06/11/21 06/11/21 History furosemide 40 mg tablet 1 tab PO BID 06/11/21 06/11/21 06/11/21 History glipizide 5 mg tablet 1 tab PO BID 06/11/21 06/11/21 06/11/21 History lurasidone 40 mg tablet (Latuda) 1 tab PO BEDTIME 06/11/21 06/11/21 06/10/21 History metformin 500 mg tablet,extended 2 tab PO BID 06/11/21 06/11/21 06/11/21 History release 24 hr oxcarbazepine 300 mg tablet 1 tab PO BID 06/11/21 06/11/21 06/11/21 History trazodone 100 mg tablet 1 tab PO BEDTIME PRN 06/11/21 06/11/21 06/10/21 History Physical Exam Vital Signs: Vital Signs: Last Vital Signs Temp 103.4 F H 06/12/21 07:06 Pulse 127 H 06/12/21 07:20 Resp 20 06/12/21 07:20 BP 122/70 06/12/21 07:31 Pulse Ox 97 06/12/21 07:06 BMI result Body Mass Index 33.3 Const: General: cooperative, healthy appearing, comfortable and no acute distress Orientation/consciousness: patient oriented x3 HEENT: Face and sinus: Yes normal facial exam Mouth: moist mucous membranes Neck: Neck: Yes normal visual inspection, Yes full ROM and Yes trachea midline Chest: Chest palpation & inspection: normal inspection of the chest Resp: Effort & Inspection: normal respiratory effort, able to speak in complete sentences and no respiratory distress GI: Inspection: Yes normal to inspection Back/Spine/Pelvis: Cervical Spine: normal cervical lordosis Thoracic/Lumbar Spine: thoracic and lumbar spine normal to inspection Skin: General skin exam: no rashes or lesions noted Neuro: General: patient oriented x3, tone normal and moves all extremities Extrem: General: Yes normal to inspection and Yes capillary refill normal Results Labs Result diagrams: 06/12/21 08:28 06/12/21 08:28 Labs: Abnormal lab results 06/11/21 06/11/21 06/11/21 Range/Units 16:43 16:43 16:43 RBC 3.59 L (4.20-5.50) X10*6/uL Hgb 9.9 L (12.0-16.0) g/dl Hct 31.1 L (37.0-47.0) % Plt Count 406 H (160-400) X10*3/uL Neut % (Auto) 79.5 H (45-73) % Lymph % (Auto) 11.4 L (20-40) % Lymph # (Auto) 1.0 L (1.2-4.9) X10*3/uL Lactic Acid 2.8 H* (0.5-2.0) mmol/L Alkaline Phosphatase (39-117) U/L Total Protein (6.5-8.0) g/dL Albumin (3.5-5.0) g/dL Lipase 7 L (8-78) U/L Urine Blood (NEG) Ur Leukocyte Esterase (NEG) Urine RBC (0) /HPF Urine WBC (0-4) /HPF 06/11/21 06/11/21 Range/Units 16:47 17:23 RBC (4.20-5.50) X10*6/uL Hgb (12.0-16.0) g/dl Hct (37.0-47.0) % Plt Count (160-400) X10*3/uL Neut % (Auto) (45-73) % Lymph % (Auto) (20-40) % Lymph # (Auto) (1.2-4.9) X10*3/uL Lactic Acid (0.5-2.0) mmol/L Alkaline Phosphatase 364 H D (39-117) U/L Total Protein 6.3 L (6.5-8.0) g/dL Albumin 3.2 L (3.5-5.0) g/dL Lipase (8-78) U/L Urine Blood 3+ H (NEG) Ur Leukocyte Esterase 3+ H (NEG) Urine RBC 50-75 H (0) /HPF Urine WBC 50-75 H (0-4) /HPF Short CBC 06/11/21 Range/Units 16:43 WBC 8.8 (4.8-10.8) X10*3/uL Hgb 9.9 L (12.0-16.0) g/dl Hct 31.1 L (37.0-47.0) % Plt Count 406 H (160-400) X10*3/uL BMP 06/11/21 16:47 Sodium 137 Potassium 3.7 Chloride 99 Carbon Dioxide 28 BUN 10 Creatinine 1.11 Calcium 9.9 D Liver Function 06/11/21 Range/Units 16:47 Total Bilirubin 0.2 (0.0-1.0) mg/dL AST 15 (5-31) U/L ALT 17 (0-31) U/L Alkaline Phosphatase 364 H D (39-117) U/L Albumin 3.2 L (3.5-5.0) g/dL Urine 06/11/21 06/11/21 Range/Units 17:23 17:23 Urine Color YELLOW Urine Appearance CLOUDY Urine pH 6.0 (5.0-8.0) Ur Specific [place] 1.010 (1.005-1.025) Urine Protein TRACE (NEG-TRACE) MG/DL Urine Glucose (UA) NEG (NEG) MG/DL Urine Test NEGATIVE (NEGATIVE) All other labs normal. Assessment and Plan (1) Hydronephrosis with obstructing calculus: Status: Acute Plan Cystoscopy, left retrograde, left stent placement Procedures Date of Service Date of Service: 06/12/21
--- NOTE | 2021-06-12 09:19 | P.PNIM_ITS ---
Subjective Subjective Date of Service: 06/12/21 Interval History: seen and examined this morning follow up for obstructing kidney stone reporting left side flank pain, fever and nausea Fever 103 this am, labs still not reported Review of Systems Review of Systems: Yes all other systems are reviewed and are negative Constitutional Constitutional: Denies chills and Reports fever(s) Cardiovascular Cardiovascular: Denies chest pain and Reports dyspnea Respiratory Respiratory: Denies cough and Reports dyspnea Gastrointestinal Gastrointestinal: Denies diarrhea, Reports nausea and Denies vomiting Genitourinary Genitourinary: Reports flank pain Physical Exam Vital Signs: Vital Signs: Last Vital Signs Temp 103.4 F H 06/12/21 07:06 Pulse 127 H 06/12/21 07:20 Resp 20 06/12/21 07:20 BP 122/70 06/12/21 07:31 Pulse Ox 97 06/12/21 07:06 BMI result Body Mass Index 33.3 Const: Other: anxious General: cooperative, alert, awake and ill appearing Nutritional Appearance: overweight Orientation/consciousness: patient oriented x3 Resp: Other: trach present; scattered expiratory wheezes Effort & Inspection: no use of accessory muscles Cardio: Rate: tachycardic Heart sounds: S1 normal heart sound present and S2 normal heart sound present GI: Palpation (GI): Soft to palpation and nontender Skin: Other: Neuro: General: patient oriented x3 Extrem: Other: no leg edema Objective Data Active Medications Acetaminophen (Acetaminophen 325 Mg Tablet) 650 mg PO Q6H PRN PRN Reason: Pain, Mild (Pain Scale 1-3) Last Admin: 06/12/21 07:34 Dose: 650 mg Documented by: SOCORRO Albuterol Sulfate (Albuterol Sulfate 90 Mcg 8 Gm Inhaler) 2 puff INHALE Q4H PRN PRN Reason: shortness of breath or wheezing Albuterol Sulfate (Albuterol Sulfate (0.083%) 2.5 Mg/3 Ml Vial.Neb) 2.5 mg INHALE Q4H PRN PRN Reason: shortness of breath or wheezing Last Admin: 06/12/21 07:20 Dose: 2.5 mg Documented by: OZZIE Albuterol/Ipratropium (Albuterol/Iprat 2.5/0.5mg 3 Ml Ampul.Neb) 3 ml INHALE RQ6H WHILE AWAKE RILEY Apixaban (Apixaban 5 Mg Tablet) 5 mg PO BID [facility] Last Admin: 06/12/21 07:38 Dose: Not Given Documented by: SOCORRO Non-Admin Reason: Physician Held Med Atorvastatin Calcium (Atorvastatin Calcium 10 Mg Tablet) 10 mg PO BEDTIME [facility] Clonazepam (Clonazepam 1 Mg Tablet) 1 mg PO BID PRN PRN Reason: Anxiety Dextrose (Dextrose 50 % 25 Gm/50 Ml Vial) 25 gm IVPUSH Q15M PRN; Protocol PRN Reason: per Hypoglycemia Standing Ord. Glucose (Glucose Gel 15 Gm Gel..Gram.) 15 gm PO Q15M PRN; Protocol PRN Reason: per Hypoglycemia Standing Ord. Hydromorphone HCl (Hydromorphone Hcl 1 Mg/Ml Syringe) 0.6 mg IVPUSH Q4H PRN; Protocol PRN Reason: Breakthrough Pain Last Admin: 06/12/21 08:49 Dose: 0.6 mg Documented by: SOCORRO Ceftriaxone Sodium 1 gm/ (Sodium Chloride) 50 mls @ 100 mls/hr IV Q24H [facility] Insulin Human Lispro (Insulin Lispro 100 Unit/Ml 3 Ml Vial) 0 unit SUBCUT QIDACHS [facility]; Protocol Last Admin: 06/12/21 07:37 Dose: Not Given Documented by: SOCORRO Non-Admin Reason: No Insulin Coverage Lurasidone HCl (Lurasidone Hcl 40 Mg Tablet) 40 mg PO BEDTIME [facility] Melatonin (Melatonin 3 Mg Tablet) 6 mg PO BEDTIME PRN PRN Reason: Insomnia Oxcarbazepine (Oxcarbazepine 300 Mg Tablet) 300 mg PO BID [facility] Last Admin: 06/12/21 08:52 Dose: 300 mg Documented by: SOCORRO Pharmacy Consult (Consult Rx Perform Med Rec) 1 each MISCELLANE ONCE PRN PRN Reason: Consult order Sodium Chloride (0.9 % Sodium Chloride Flush 3 Ml Syringe) 3 ml IVFLUSH QSHIFT [facility] Last Admin: 06/12/21 07:36 Dose: 3 ml Documented by: SOCORRO Temazepam (Temazepam 15 Mg Capsule) 15 mg PO BEDTIME PRN PRN Reason: Insomnia Trazodone HCl (Trazodone Hcl 100 Mg Tablet) 100 mg PO BEDTIME PRN PRN Reason: Sleep Labs CBC & Chem 7: 06/11/21 16:43 06/11/21 16:47 Labs: Laboratory Results - last 24 hr 06/11/21 06/11/21 06/11/21 16:43 16:43 16:43 MCV 86.6 MCH 27.6 MCHC 31.8 RDW 14.5 Plt Count 406 H MPV 9.4 Immature Gran % (Auto) 0.3 Neut % (Auto) 79.5 H Lymph % (Auto) 11.4 L [place] % (Auto) 6.2 Eos % (Auto) 2.1 Baso % (Auto) 0.5 Lymph # (Auto) 1.0 L [place] # (Auto) 0.5 Eos # (Auto) 0.2 Baso # (Auto) 0.0 Abs Immat Gran (auto) 0.03 Absolute Neuts (auto) 7.0 Absolute Nucleated RBC 0.000 Nucleated RBC % (auto) 0.0 Anion Gap Estim Creat Clear Calc Estimated GFR POC Glucose Random Glucose Lactic Acid 2.8 H* Lactic Acid F/U @ 2Hr Calcium Total Bilirubin AST ALT Alkaline Phosphatase Troponin I High Sens Total Protein Albumin Lipase 7 L Beta HCG, Quant < 2 Urine Color Urine Appearance Urine pH Ur Specific [place] Urine Protein Urine Glucose (UA) Urine Ketones Urine Blood Urine Nitrite Ur Leukocyte Esterase Urine RBC Urine WBC Ur Squamous Epith Cells Calcium Oxalate Crystal Urine Bacteria Urine Test COVID-19 (PRETTY) COVID-19 Clin Com 06/11/21 06/11/21 06/11/21 16:43 16:47 17:23 MCV MCH MCHC RDW Plt Count MPV Immature Gran % (Auto) Neut % (Auto) Lymph % (Auto) [place] % (Auto) Eos % (Auto) Baso % (Auto) Lymph # (Auto) [place] # (Auto) Eos # (Auto) Baso # (Auto) Abs Immat Gran (auto) Absolute Neuts (auto) Absolute Nucleated RBC Nucleated RBC % (auto) Anion Gap 14 Estim Creat Clear Calc 64.3 Estimated GFR 52 POC Glucose Random Glucose 88 D Lactic Acid Lactic Acid F/U @ 2Hr Calcium 9.9 D Total Bilirubin 0.2 AST 15 ALT 17 Alkaline Phosphatase 364 H D Troponin I High Sens 6.4 Total Protein 6.3 L Albumin 3.2 L Lipase Beta HCG, Quant Urine Color YELLOW Urine Appearance CLOUDY Urine pH 6.0 Ur Specific [place] 1.010 Urine Protein TRACE Urine Glucose (UA) NEG Urine Ketones NEG Urine Blood 3+ H Urine Nitrite NEG Ur Leukocyte Esterase 3+ H Urine RBC 50-75 H Urine WBC 50-75 H Ur Squamous Epith Cells 2+ Calcium Oxalate Crystal 1+ Urine Bacteria 4+ Urine Test COVID-19 (PRETTY) COVID-19 Clin Com 06/11/21 06/11/21 06/11/21 17:23 23:35 23:41 MCV MCH MCHC RDW Plt Count MPV Immature Gran % (Auto) Neut % (Auto) Lymph % (Auto) [place] % (Auto) Eos % (Auto) Baso % (Auto) Lymph # (Auto) [place] # (Auto) Eos # (Auto) Baso # (Auto) Abs Immat Gran (auto) Absolute Neuts (auto) Absolute Nucleated RBC Nucleated RBC % (auto) Anion Gap Estim Creat Clear Calc Estimated GFR POC Glucose Random Glucose Lactic Acid Lactic Acid F/U @ 2Hr 1.4 Calcium Total Bilirubin AST ALT Alkaline Phosphatase Troponin I High Sens Total Protein Albumin Lipase Beta HCG, Quant Urine Color Urine Appearance Urine pH Ur Specific [place] Urine Protein Urine Glucose (UA) Urine Ketones Urine Blood Urine Nitrite Ur Leukocyte Esterase Urine RBC Urine WBC Ur Squamous Epith Cells Calcium Oxalate Crystal Urine Bacteria Urine Test NEGATIVE COVID-19 (PRETTY) Negative COVID-19 Clin Com See Note 06/11/21 06/12/21 06/12/21 23:41 03:17 07:37 MCV MCH MCHC RDW Plt Count MPV Immature Gran % (Auto) Neut % (Auto) Lymph % (Auto) [place] % (Auto) Eos % (Auto) Baso % (Auto) Lymph # (Auto) [place] # (Auto) Eos # (Auto) Baso # (Auto) Abs Immat Gran (auto) Absolute Neuts (auto) Absolute Nucleated RBC Nucleated RBC % (auto) Anion Gap Estim Creat Clear Calc Estimated GFR POC Glucose 102 95 Random Glucose Lactic Acid Lactic Acid F/U @ 2Hr Calcium Total Bilirubin AST ALT Alkaline Phosphatase Troponin I High Sens 8.6 Total Protein Albumin Lipase Beta HCG, Quant Urine Color Urine Appearance Urine pH Ur Specific [place] Urine Protein Urine Glucose (UA) Urine Ketones Urine Blood Urine Nitrite Ur Leukocyte Esterase Urine RBC Urine WBC Ur Squamous Epith Cells Calcium Oxalate Crystal Urine Bacteria Urine Test COVID-19 (PRETTY) COVID-19 Clin Com Microbiology Microbiology Results: Microbiology 06/11/21 17:17 Blood Culture - Preliminary Blood - Venous Prelim: GNR Gram Stain only 06/11/21 16:43 Blood Culture - Preliminary Blood - Venous Prelim: GNR Gram Stain only Assessment and Plan (1) UTI (urinary tract infection): Status: Acute (2) Hydronephrosis with obstructing calculus: Status: Acute Plan 50-year-old female with a past medical history of hypertension, diabetes, obesity, sleep apnea, history of asthma, history of respiratory failure secondary to asthma requiring intubation in October of 2020 ; recent time had gallstone pancreatitis-underwent laparoscopic cholecystectomy-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 requiring exploratory laparotomy and debridement, further complicated by transverse colon perforation with resultant several colon cutaneous fistula and had subsequent skin graft placed on the ventral abdominal wound; during the same period She had prolonged hospital course with multiple episodes of hypercapnic respiratory failure requiring multiple admissions; A percutaneous tracheostomy was created in November of 2020 and she was decannu lated March 05, 2022 -> currently follows with tracheostomy clinic; has been home for the past few weeks; presented to the hospital today with a chief complaint of left flank pain. Noted to have UTI/renal calculi hydronephrosis. Admitted for further management. sepsis secondary to UTI/obstructing kidney stone continue IV ceftriaxone seen by urology, plan for stenting this afternoon NPO GNR bacteremia secondary to UTI/obstructing kidney stone IV ceftriaxone as above follow final Blood cultures h/o PE/DVT On Eliquis for AC - will hold for planned procedure, resume when safe from urolo gy perspective Diabetes: Insulin sliding scale. Hold home oral hypoglycemic agents (metformin and glipizide) History of tracheal stenosis/tracheomalacia/ asthma s/p tracheostomy Currently breathing comfortably via trach mask. prn and scheduled breathing treatments h/o takotsubo cardiomyopathy EF 25-30% per notes from [facility] on Lasix at baseline, will hold for now given sepsis monitor fluid status closely and resume Lasix ?tomorrow am Mood continue home medications - latuda, oxcarbazepine, trazodone, clonazepam History of multiple abdominal surgeries/cutaneous fistulous: Chronic. Supportive care. No new change in her abdominal wall erythema for patient. Patient has been with general surgery team at . DVT prophylaxis: Patient on Eliquis (on hold for procedure) boots Code status: Full code Attending: Dr. Maldonado Quality Stroke Does the patient have a stroke diagnosis?: No VTE Prior VTE?: No VTE Risk Level:: Medical - moderate - high VTE Device Contraindication: Treatment Not Indicated VTE Drug Contraindication: N/A - Med Ordered
[2021-06-12 09:23] LABS: Basophils Percent Auto 0.1 % (0-2); Eosinophils Percent Auto 0.1 % (0-4); Hematocrit 30.4 % (37.0-47.0); Hemoglobin 9.6 g/dl (12.0-16.0); Imm Gran Abs Auto 0.02 X10*3/uL (0.00-0.03); Imm Gran Pct Auto 0.3 % (0.0-0.4); Lymphocytes Absolute Auto 0.1 X10*3/uL (1.2-4.9); MANUAL DIFF FLAG SCAN; Mean Corpuscular HGB Conc 31.6 g/dl (31.0-35.0); Mean Corpuscular Hemoglobin 27.7 pg (27.0-33.0); Mean Corpuscular Volume 87.6 fL (80.0-98.0); Monocytes Absolute Auto 0.1 X10*3/uL (0.1-1.2); Monocytes Percent Auto 0.7 % (2-11); Neutrophils Absolute Auto 6.7 x10*3/uL (2.0-8.3); Neutrophils Percent Auto 96.8 % (45-73); PLT CLUMP 1; Red Blood Count 3.47 X10*6/uL (4.20-5.50); Red Cell Distribution Width 14.9 % (11.0-16.0); SCAN SMEAR FLAG 1
[2021-06-12 09:25] LABS: White Blood Count 6.9 X10*3/uL (4.8-10.8)
[2021-06-12 09:34] LABS: Anion Gap 16 (12-20); Blood Urea Nitrogen 12 mg/dL (9-16); Calcium 8.9 mg/dL (8.4-10.2); Carbon Dioxide 20 mmol/L (22-29); Chloride 101 mmol/L (96-108); Creatinine Clr Calc Pharmacy 50.3; Estimated Glomerular Filt Rate 39; Glucose Random 109 mg/dL (60-115); Potassium 3.7 mmol/L (3.3-5.1); Sodium 133 mmol/L (135-145)
--- NOTE | 2021-06-12 09:49 | MHC.CM.PN ---
Addendum entered by Tammi Mari 06/12/21 10:11: met with patients s/o-which is her hilary, he gave me the names and number of her vna and dme supplier i am if he could bring in hcp copy.she reported she nnnnnnnnnnnnnnnnnnnnnnnnnnnnnnnnnnnis able to give some assistance but is mostly dpenednt on care takers . she recives mental health counseling throu [facility] phone calls, and he procvdes assl transportation to medical appointments discharge plan 1[employer] vna e learning manager and wound care , care of trach, pt/ot)[phone] 2.prompt dme for home oxygen , nebulizer, portable suction and trach and all related supplies ( central intake (also has hospitla bed, commode, shower chair, shopwer bars, wheelchair aaaaaaaaaaaaaaaaaaaaaaaaaaaaaaaaaand wears briefs) 3 [facility] mental counseling 4 transportation hilary 5. hcp her requested copy be brought it 6 [facility] and also has ssi for her diasabilit 6 was covid vacinated x2 Original Note: nurse dependency case manager note electronic medical recors d reviewed along with case discussed with staff nurse. met with patient , she lives with her significant other at home, hshe is active with the vna for nursing , pt/ot. she also has dme services (home oxygen , nebulizer, trach and all related supplies, portable suctioning) she requires assistance with all adls and mobility , past hx of substance abuse per documentation she history of asthma exacerbation, subsequent gallstone pancreatic and pancreatitis necrosis followed by multiple fistulas) she now come in with flank pain found to have uti, hydronephrosis and obstructing calcus evaluated by dr cordero and plans for stinting today discharge plan resumption of her vna (rn-[id number]-ot) resumtpion dme services and resumption of her mental health counseling has ssi for her disability , denies any financial concerns regarding getting her prescriptions filled transportation family
[2021-06-12 10:03] LABS: SLIDE REVIEW VERIFIED
[2021-06-12 11:12] LABS: Glucose, Whole Blood 118 mg/dL (60-115)
[2021-06-12] MEDS: Albuterol/Iprat 2.5/0.5MG 3 ML AMPUL.NEB INHALE (13:15)
--- NOTE | 2021-06-12 15:48 | MHC.CM.PN ---
PER PHYSICIAN ROUNDS, PATIENT STILL SEPTIC/BACTEREMIC. PLAN IS FOR STENT PLACEMENT TODAY WAS AT [facility] FOR ABOUT 6 MONTHS PRIOR TO ADMIT HERE.
--- NOTE | 2021-06-12 16:16 | HO.ANESPROP2 ---
HPI - Anesthesia Eval Consult details Narrative: left hydronephrosis due to ureter stone PMFSH Active Problems Active Problems: All Active Problems (Updated 06/11/21 @ 20:55 by OSEI Rodriguez) UTI (urinary tract infection) (Acute) Hydronephrosis with obstructing calculus (Acute) Past Medical History Medical History Asthma Bipolar 1 disorder Diabetes Substance abuse Social History Social History Household Members: Spouse Housing: Apartment Do you presently have visiting nurse or other home services: Yes (visiting nurses, pt/ot) Alcohol intake: never Patient Tobacco Use Status: Never used Tobacco Use of substances other than those prescribed or required for medical reasons: No Have you been hit, kicked, punched, or otherwise hurt by someone within the past year? If so, by whom?: No Do you feel safe in your current relationship?: Yes Is there a partner from a previous relationship who is making you feel unsafe now?: No Are you made to feel afraid or neglected: No Advance Directives: No Advance Directives Information Provided: Yes Do you have thoughts of harming others: None Do you have a plan to hurt others: No Plan Recently lost weight without trying: No Nutrition Risks: No Nutritional Risk service: No Current occupational status: disabled Meds Allergies Allergy/AdvReac Type Severity Reaction Status Date / Time pantoprazole Allergy Unknown Verified 06/11/21 15:17 Active Medications: Current Medications Acetaminophen (Acetaminophen 325 Mg Tablet) 650 mg PO Q6H PRN PRN Reason: Pain, Mild (Pain Scale 1-3) Last Admin: 06/12/21 07:34 Dose: 650 mg Documented by: Albuterol Sulfate (Albuterol Sulfate 90 Mcg 8 Gm Inhaler) 2 puff INHALE Q4H PRN PRN Reason: shortness of breath or wheezing Albuterol Sulfate (Albuterol Sulfate (0.083%) 2.5 Mg/3 Ml Vial.Neb) 2.5 mg INHALE Q4H PRN PRN Reason: shortness of breath or wheezing Last Admin: 06/12/21 07:20 Dose: 2.5 mg Documented by: Albuterol/Ipratropium (Albuterol/Iprat 2.5/0.5mg 3 Ml Ampul.Neb) 3 ml INHALE RQ6H WHILE AWAKE [facility] Last Admin: 06/12/21 13:15 Dose: 3 ml Documented by: Apixaban (Apixaban 5 Mg Tablet) 5 mg PO BID [facility] Last Admin: 06/12/21 07:38 Dose: Not Given Documented by: Atorvastatin Calcium (Atorvastatin Calcium 10 Mg Tablet) 10 mg PO BEDTIME [facility] Clonazepam (Clonazepam 1 Mg Tablet) 1 mg PO BID PRN PRN Reason: Anxiety Dextrose (Dextrose 50 % 25 Gm/50 Ml Vial) 25 gm IVPUSH Q15M PRN; Protocol PRN Reason: per Hypoglycemia Standing Ord. Glucose (Glucose Gel 15 Gm Gel..Gram.) 15 gm PO Q15M PRN; Protocol PRN Reason: per Hypoglycemia Standing Ord. Hydromorphone HCl (Hydromorphone Hcl 1 Mg/Ml Syringe) 0.6 mg IVPUSH Q4H PRN; Protocol PRN Reason: Breakthrough Pain Last Admin: 06/12/21 12:58 Dose: 0.6 mg Documented by: Ceftriaxone Sodium 1 gm/ (Sodium Chloride) 50 mls @ 100 mls/hr IV Q24H [facility] Insulin Human Lispro (Insulin Lispro 100 Unit/Ml 3 Ml Vial) 0 unit SUBCUT QIDACHS [facility]; Protocol Last Admin: 06/12/21 11:18 Dose: Not Given Documented by: Lurasidone HCl (Lurasidone Hcl 40 Mg Tablet) 40 mg PO BEDTIME [facility] Melatonin (Melatonin 3 Mg Tablet) 6 mg PO BEDTIME PRN PRN Reason: Insomnia Oxcarbazepine (Oxcarbazepine 300 Mg Tablet) 300 mg PO BID [facility] Last Admin: 06/12/21 08:52 Dose: 300 mg Documented by: Pharmacy Consult (Consult Rx Perform Med Rec) 1 each MISCELLANE ONCE PRN PRN Reason: Consult order Sodium Chloride (0.9 % Sodium Chloride Flush 3 Ml Syringe) 3 ml IVFLUSH QSHIFT [facility] Last Admin: 06/12/21 15:47 Dose: 3 ml Documented by: Temazepam (Temazepam 15 Mg Capsule) 15 mg PO BEDTIME PRN PRN Reason: Insomnia Trazodone HCl (Trazodone Hcl 100 Mg Tablet) 100 mg PO BEDTIME PRN PRN Reason: Sleep Home Medications Medication Instructions Recorded Confirmed Last Taken Type albuterol sulfate 2.5 mg/0.5 mL 2.5 mg INHALATION Q4H PRN 06/11/21 06/11/21 Unknown History solution for nebulization apixaban 5 mg tablet (Eliquis) 5 mg PO BID 06/11/21 06/11/21 06/11/21 History atorvastatin 10 mg tablet 1 tab PO BEDTIME 06/11/21 06/11/21 06/10/21 History clonazepam 1 mg tablet 1 tab PO BID PRN 06/11/21 06/11/21 06/11/21 History furosemide 40 mg tablet 1 tab PO BID 06/11/21 06/11/21 06/11/21 History glipizide 5 mg tablet 1 tab PO BID 06/11/21 06/11/21 06/11/21 History lurasidone 40 mg tablet (Latuda) 1 tab PO BEDTIME 06/11/21 06/11/21 06/10/21 History metformin 500 mg tablet,extended 2 tab PO BID 06/11/21 06/11/21 06/11/21 History release 24 hr oxcarbazepine 300 mg tablet 1 tab PO BID 06/11/21 06/11/21 06/11/21 History trazodone 100 mg tablet 1 tab PO BEDTIME PRN 06/11/21 06/11/21 06/10/21 History Exam Exam Date and Time: June 12, 2021 1616 Height,Weight and Vital Signs: Height 5 ft 4 in Weight 88 kg Last Vital Signs Temp 98.9 F 06/12/21 15:35 Pulse 94 06/12/21 15:35 Resp 18 06/12/21 15:35 BP 92/53 L 06/12/21 15:35 Pulse Ox 97 06/12/21 15:35 Pertinent Lab Results Pertinent Lab Results: Laboratory Tests 06/11/21 06/11/21 06/11/21 16:43 16:43 16:43 WBC 8.8 RBC 3.59 L Hgb 9.9 L Hct 31.1 L MCV 86.6 MCH 27.6 MCHC 31.8 RDW 14.5 Plt Count 406 H MPV 9.4 Immature Gran % (Auto) 0.3 Neut % (Auto) 79.5 H Lymph % (Auto) 11.4 L [place] % (Auto) 6.2 Eos % (Auto) 2.1 Baso % (Auto) 0.5 Lymph # (Auto) 1.0 L [place] # (Auto) 0.5 Eos # (Auto) 0.2 Baso # (Auto) 0.0 Abs Immat Gran (auto) 0.03 Absolute Neuts (auto) 7.0 Absolute Nucleated RBC 0.000 Nucleated RBC % (auto) 0.0 Smear Tech's Comments Sodium Potassium Chloride Carbon Dioxide Anion Gap BUN Creatinine Estim Creat Clear Calc Estimated GFR POC Glucose Random Glucose Lactic Acid 2.8 H* Lactic Acid F/U @ 2Hr Calcium Total Bilirubin AST ALT Alkaline Phosphatase Troponin I High Sens Total Protein Albumin Lipase 7 L Beta HCG, Quant < 2 Urine Color Urine Appearance Urine pH Ur Specific [place] Urine Protein Urine Glucose (UA) Urine Ketones Urine Blood Urine Nitrite Ur Leukocyte Esterase Urine RBC Urine WBC Ur Squamous Epith Cells Calcium Oxalate Crystal Urine Bacteria Urine Test COVID-19 (PRETTY) COVID-19 Sonian 06/11/21 06/11/21 06/11/21 16:43 16:47 17:23 WBC RBC Hgb Hct MCV MCH MCHC RDW Plt Count MPV Immature Gran % (Auto) Neut % (Auto) Lymph % (Auto) [place] % (Auto) Eos % (Auto) Baso % (Auto) Lymph # (Auto) [place] # (Auto) Eos # (Auto) Baso # (Auto) Abs Immat Gran (auto) Absolute Neuts (auto) Absolute Nucleated RBC Nucleated RBC % (auto) Smear Tech's Comments Sodium 137 Potassium 3.7 Chloride 99 Carbon Dioxide 28 Anion Gap 14 BUN 10 Creatinine 1.11 Estim Creat Clear Calc 64.3 Estimated GFR 52 POC Glucose Random Glucose 88 D Lactic Acid Lactic Acid F/U @ 2Hr Calcium 9.9 D Total Bilirubin 0.2 AST 15 ALT 17 Alkaline Phosphatase 364 H D Troponin I High Sens 6.4 Total Protein 6.3 L Albumin 3.2 L Lipase Beta HCG, Quant Urine Color YELLOW Urine Appearance CLOUDY Urine pH 6.0 Ur Specific [place] 1.010 Urine Protein TRACE Urine Glucose (UA) NEG Urine Ketones NEG Urine Blood 3+ H Urine Nitrite NEG Ur Leukocyte Esterase 3+ H Urine RBC 50-75 H Urine WBC 50-75 H Ur Squamous Epith Cells 2+ Calcium Oxalate Crystal 1+ Urine Bacteria 4+ Urine Test COVID-19 (PRETTY) COVID-19 Sonian 06/11/21 06/11/21 06/11/21 17:23 23:35 23:41 WBC RBC Hgb Hct MCV MCH MCHC RDW Plt Count MPV Immature Gran % (Auto) Neut % (Auto) Lymph % (Auto) [place] % (Auto) Eos % (Auto) Baso % (Auto) Lymph # (Auto) [place] # (Auto) Eos # (Auto) Baso # (Auto) Abs Immat Gran (auto) Absolute Neuts (auto) Absolute Nucleated RBC Nucleated RBC % (auto) Smear Tech's Comments Sodium Potassium Chloride Carbon Dioxide Anion Gap BUN Creatinine Estim Creat Clear Calc Estimated GFR POC Glucose Random Glucose Lactic Acid Lactic Acid F/U @ 2Hr 1.4 Calcium Total Bilirubin AST ALT Alkaline Phosphatase Troponin I High Sens Total Protein Albumin Lipase Beta HCG, Quant Urine Color Urine Appearance Urine pH Ur Specific [place] Urine Protein Urine Glucose (UA) Urine Ketones Urine Blood Urine Nitrite Ur Leukocyte Esterase Urine RBC Urine WBC Ur Squamous Epith Cells Calcium Oxalate Crystal Urine Bacteria Urine Test NEGATIVE COVID-19 (PRETTY) Negative COVID-[employer] See Note 06/11/21 06/12/21 06/12/21 23:41 03:17 07:37 WBC RBC Hgb Hct MCV MCH MCHC RDW Plt Count MPV Immature Gran % (Auto) Neut % (Auto) Lymph % (Auto) [place] % (Auto) Eos % (Auto) Baso % (Auto) Lymph # (Auto) [place] # (Auto) Eos # (Auto) Baso # (Auto) Abs Immat Gran (auto) Absolute Neuts (auto) Absolute Nucleated RBC Nucleated RBC % (auto) Smear Tech's Comments Sodium Potassium Chloride Carbon Dioxide Anion Gap BUN Creatinine Estim Creat Clear Calc Estimated GFR POC Glucose 102 95 Random Glucose Lactic Acid Lactic Acid F/U @ 2Hr Calcium Total Bilirubin AST ALT Alkaline Phosphatase Troponin I High Sens 8.6 Total Protein Albumin Lipase Beta HCG, Quant Urine Color Urine Appearance Urine pH Ur Specific [place] Urine Protein Urine Glucose (UA) Urine Ketones Urine Blood Urine Nitrite Ur Leukocyte Esterase Urine RBC Urine WBC Ur Squamous Epith Cells Calcium Oxalate Crystal Urine Bacteria Urine Test COVID-19 (PRETTY) COVID-19 Sonian 06/12/21 06/12/21 06/12/21 08:28 08:28 11:08 WBC 6.9 RBC 3.47 L Hgb 9.6 L Hct 30.4 L MCV 87.6 MCH 27.7 MCHC 31.6 RDW 14.9 Plt Count TNP MPV TNP Immature Gran % (Auto) 0.3 Neut % (Auto) 96.8 H Lymph % (Auto) 2.0 L [place] % (Auto) 0.7 L Eos % (Auto) 0.1 Baso % (Auto) 0.1 Lymph # (Auto) 0.1 L [place] # (Auto) 0.1 Eos # (Auto) 0.0 Baso # (Auto) 0.0 Abs Immat Gran (auto) 0.02 Absolute Neuts (auto) 6.7 Absolute Nucleated RBC 0.000 Nucleated RBC % (auto) 0.0 Smear Tech's Comments VERIFIED Sodium 133 L Potassium 3.7 Chloride 101 Carbon Dioxide 20 L Anion Gap 16 BUN 12 Creatinine 1.42 H Estim Creat Clear Calc 50.3 Estimated GFR 39 POC Glucose 118 H Random Glucose 109 Lactic Acid Lactic Acid F/U @ 2Hr Calcium 8.9 D Total Bilirubin AST ALT Alkaline Phosphatase Troponin I High Sens Total Protein Albumin Lipase Beta HCG, Quant Urine Color Urine Appearance Urine pH Ur Specific [place] Urine Protein Urine Glucose (UA) Urine Ketones Urine Blood Urine Nitrite Ur Leukocyte Esterase Urine RBC Urine WBC Ur Squamous Epith Cells Calcium Oxalate Crystal Urine Bacteria Urine Test COVID-19 (PRETTY) COVID-19 Clin Com Airway Mallampati Class: III TM Dist: >3cm Neck ROM: Full Heart: RRR Lungs: CTA Assessment and Plan Assessment Anesthesia Assessment: Anesthesia Plan Discussed and Chart Reviewed Final Anesthetic Review NPO: Yes ASA Class: III Final Preanesthetic Review: No Changes in Pt Med Stat, Meds/Allgs Chart Reviewed, Consent Obtained/Reviewed and Anes Risks/Benef Reviewed Patient Risk: Intermediate Procedure Risk: Low Anesthetic Plan Anesthetic Plan: GA Disposition: Standard PACU
[2021-06-12 16:21] LABS: Glucose, Whole Blood 108 mg/dL (60-115)
[2021-06-12] MEDS: HYDROmorphone HCl 0.5 MG/0.5 ML SYRINGE IVPUSH (17:37)
--- NOTE | 2021-06-12 17:54 | P.OP_ITS ---
Operative Note Operative Note Date of Service: 06/12/21 Narrative: PreOperative Diagnosis: left ureteric stone Post Operative Diagnosis: above Procedure: Cystoscopy, left retrograde, stent Surgeon: Dr Aravind Agosto Anesthesia: generall Indications for procedure: stone with mild hydro and SIRS with bacteremia Procedure: After informed consent was verified the patient was brought to the operating room and placed in a supine position. Anesthesia was administered per protocol. The patient was placed in modified dorsal lithotomy position and prepped and draped in a sterile fashion. A safety pause time-out was performed. Laterality of procedure and antibiotics were confirmed. appropriate imaging was available A 22 [place] cystoscope was introduced per urethra. No abnormality was noted. Both ureteric orifices were seen in a normal position. The left ureter was cannulated with an open ended catheter and a retrograde examination was pe rformed. SMall stone near UO. . A Sensor guidewire was placed under fluoroscopy and a good coil was seen within the renal pelvis. Sample taken with open ended. A 6x26cm was advanced over the wire and up to the level of the renal pelvis under fluoroscopic and direct visualization. The stent was seen with appropriate coil within the renal pelvis and in the bladder after deployment. The patient tolerated the procedure well and was transferred in stable condition to the recovery area. Pathology: Drains: 6x26cm JJ left
--- NOTE | 2021-06-12 17:54 | MHC.SHP ---
Pre-Procedural Eval Section A Date of Service: 06/12/21 The patient is an INPATIENT: Yes Changes since office visit: No Cold of Flu in the past 2 weeks, No New Medical Problems, No Changes in Medication and No Patient answered all questions The History & Physical has been completed within 30 days and I have reviewed it.: Yes Section B Chief Complaint: UTI Allergies: Allergies Allergy/AdvReac Type Severity Reaction Status Date / Time pantoprazole Allergy Unknown Verified 06/11/21 15:17 Plan Diagnosis/Plan: Unchanged I have reviewed the history and physical and performed a pertinent physical examination on my patient. No changes have occurred unless specified.
[2021-06-12 20:03] LABS: Glucose, Whole Blood 87 mg/dL (60-115)
[2021-06-12] MEDS: Atorvastatin Calcium 10 MG TABLET PO (21:33)
[2021-06-12] MEDS: Apixaban 5 MG TABLET PO (21:33)
[2021-06-12] MEDS: cefTRIAXone sodium 1 GM in 0.9 % Sodium Chloride 50 ML IV (21:33)
[2021-06-12] MEDS: clonazePAM 1 MG TABLET PO (21:33)
[2021-06-12] MEDS: Lurasidone HCl 40 MG TABLET PO (21:33)
[2021-06-13] VITALS (13 sets, daily range): BP systolic 95–121; BP diastolic 50–58; PULSE 86–102; RESP 18–20; TEMP 36.5–37.7; O2SAT 91–99
[2021-06-13] MEDS: HYDROmorphone HCl 1 MG/ML SYRINGE 0.6 MG IVPUSH ×5 (01:47→23:01)
[2021-06-13 06:19] LABS: Basophils Percent Auto 0.5 % (0-2); Eosinophils Absolute Auto 0.2 X10*3/uL (0.0-0.4); Eosinophils Percent Auto 3.4 % (0-4); Hematocrit 29.1 % (37.0-47.0); Hemoglobin 9.1 g/dl (12.0-16.0); Imm Gran Abs Auto 0.03 X10*3/uL (0.00-0.03); Imm Gran Pct Auto 0.5 % (0.0-0.4); Lymphocytes Absolute Auto 0.6 X10*3/uL (1.2-4.9); Lymphocytes Percent Auto 8.8 % (20-40); MANUAL DIFF FLAG SCAN; Mean Corpuscular HGB Conc 31.3 g/dl (31.0-35.0); Mean Corpuscular Hemoglobin 27.8 pg (27.0-33.0); Mean Platelet Volume 10.7 fL (9.4-12.3); Monocytes Absolute Auto 0.3 X10*3/uL (0.1-1.2); Monocytes Percent Auto 5.4 % (2-11); Neutrophils Absolute Auto 5.1 x10*3/uL (2.0-8.3); Neutrophils Percent Auto 81.4 % (45-73); PLT CLUMP 1; Red Blood Count 3.27 X10*6/uL (4.20-5.50); Red Cell Distribution Width 15.2 % (11.0-16.0); SCAN SMEAR FLAG 1
[2021-06-13 06:28] LABS: Anion Gap 12 (12-20); Blood Urea Nitrogen 15 mg/dL (9-16); Calcium 8.9 mg/dL (8.4-10.2); Carbon Dioxide 25 mmol/L (22-29); Chloride 101 mmol/L (96-108); Creatinine Clr Calc Pharmacy 52.1; Estimated Glomerular Filt Rate 41; Glucose Random 133 mg/dL (60-115); Potassium 3.5 mmol/L (3.3-5.1); Sodium 134 mmol/L (135-145)
[2021-06-13 06:37] LABS: Platelet Count 222 X10*3/uL (160-400); White Blood Count 6.3 X10*3/uL (4.8-10.8)
[2021-06-13 06:38] LABS: SLIDE REVIEW VERIFIED
[2021-06-13 07:28] LABS: Glucose, Whole Blood 132 mg/dL (60-115)
[2021-06-13] MEDS: Albuterol/Iprat 2.5/0.5MG 3 ML AMPUL.NEB INHALE ×3 (07:48→19:35)
[2021-06-13] MEDS: 0.9 % Sodium Chloride Flush 3 ML SYRINGE IVFLUSH ×2 (09:05→15:22)
[2021-06-13] MEDS: OXcarbazepine 300 MG TABLET PO ×2 (09:05→21:06)
[2021-06-13] MEDS: Apixaban 5 MG TABLET PO ×2 (09:05→21:06)
--- NOTE | 2021-06-13 09:52 | P.PNIM_ITS ---
Subjective Subjective Date of Service: 06/13/21 Review of Systems Follow up Obstructing stone Feelin better today requesting to have the kelly catheter out Physical Exam Vital Signs: Vital Signs: Last Vital Signs Temp 98.2 F 06/13/21 07:28 Pulse 101 H 06/13/21 07:51 Resp 20 06/13/21 07:51 BP 113/58 L 06/13/21 07:28 Pulse Ox 98 06/13/21 07:28 BMI result Body Mass Index 33.3 Appearing in no acute distress lung sounds are clear to auscultation, trach mask on heart regular rate rhythm, clear S1, S2 positive bowel sounds, abdomen is soft, nontender neuro patient is alert x3, no focal deficits Objective Data Active Medications Acetaminophen (Acetaminophen 325 Mg Tablet) 650 mg PO Q6H PRN PRN Reason: Pain, Mild (Pain Scale 1-3) Last Admin: 06/12/21 07:34 Dose: 650 mg Documented by: SOCORRO Acetaminophen (Acetaminophen 325 Mg Tablet) 650 mg PO ONCE PRN PRN Reason: Pain, Mild (Pain Scale 1-3) Albuterol Sulfate (Albuterol Sulfate 90 Mcg 8 Gm Inhaler) 2 puff INHALE Q4H PRN PRN Reason: shortness of breath or wheezing Albuterol Sulfate (Albuterol Sulfate (0.083%) 2.5 Mg/3 Ml Vial.Neb) 2.5 mg INHALE Q4H PRN PRN Reason: shortness of breath or wheezing Last Admin: 06/12/21 07:20 Dose: 2.5 mg Documented by: OZZIE Albuterol/Ipratropium (Albuterol/Iprat 2.5/0.5mg 3 Ml Ampul.Neb) 3 ml INHALE RQ6H WHILE AWAKE [facility] Last Admin: 06/13/21 07:48 Dose: 3 ml Documented by: OZZIE Apixaban (Apixaban 5 Mg Tablet) 5 mg PO BID [facility] Last Admin: 06/13/21 09:05 Dose: 5 mg Documented by: TAVO Atorvastatin Calcium (Atorvastatin Calcium 10 Mg Tablet) 10 mg PO BEDTIME [facility] Last Admin: 06/12/21 21:33 Dose: 10 mg Documented by: DAIANA Clonazepam (Clonazepam 1 Mg Tablet) 1 mg PO BID PRN PRN Reason: Anxiety Last Admin: 06/12/21 21:33 Dose: 1 mg Documented by: DAIANA Dextrose (Dextrose 50 % 25 Gm/50 Ml Vial) 25 gm IVPUSH Q15M PRN; Protocol PRN Reason: per Hypoglycemia Standing Ord. Fentanyl (Fentanyl Citrate/Pf 100 Mcg/2 Ml Vial) 50 mcg IVPUSH Q5M PRN; Protocol PRN Reason: Pain, Severe (Pain Scale 7-10) Glucose (Glucose Gel 15 Gm Gel..Gram.) 15 gm PO Q15M PRN; Protocol PRN Reason: per Hypoglycemia Standing Ord. Hydromorphone HCl (Hydromorphone Hcl 1 Mg/Ml Syringe) 0.6 mg IVPUSH Q4H PRN; Protocol PRN Reason: Breakthrough Pain Last Admin: 06/13/21 05:48 Dose: 0.6 mg Documented by: DAIANA Hydromorphone HCl (Hydromorphone Hcl 0.5 Mg/0.5 Ml Syringe) 0.5 mg IVPUSH Q5M PRN; Protocol PRN Reason: Pain, Severe (Pain Scale 7-10) Last Admin: 06/12/21 17:37 Dose: 0.5 mg Documented by: CAMPOS Ceftriaxone Sodium 1 gm/ (Sodium Chloride) 50 mls @ 100 mls/hr IV Q24H [facility] Last Infusion: 06/12/21 23:49 Dose: 0 mls/hr Documented by: DAIANA Insulin Human Lispro (Insulin Lispro 100 Unit/Ml 3 Ml Vial) 0 unit SUBCUT QIDACHS [facility]; Protocol Last Admin: 06/13/21 07:47 Dose: Not Given Documented by: TAVO Non-Admin Reason: No Insulin Coverage Lurasidone HCl (Lurasidone Hcl 40 Mg Tablet) 40 mg PO BEDTIME [facility] Last Admin: 06/12/21 21:33 Dose: 40 mg Documented by: DAIANA Melatonin (Melatonin 3 Mg Tablet) 6 mg PO BEDTIME PRN PRN Reason: Insomnia Ondansetron HCl (Ondansetron Hcl 4 Mg/2 Ml Vial) 4 mg IVPUSH ONCE PRN PRN Reason: Nausea and Vomiting Oxcarbazepine (Oxcarbazepine 300 Mg Tablet) 300 mg PO BID [facility] Last Admin: 06/13/21 09:05 Dose: 300 mg Documented by: TAVO Oxycodone HCl (Oxycodone Hcl Immed Release 5 Mg Tablet) 10 mg PO ONCE PRN PRN Reason: Pain, Severe (Pain Scale 7-10) Pharmacy Consult (Consult Rx Perform Med Rec) 1 each MISCELLANE ONCE PRN PRN Reason: Consult order Sodium Chloride (0.9 % Sodium Chloride Flush 3 Ml Syringe) 3 ml IVFLUSH QSHIFT [facility] Last Admin: 06/13/21 09:05 Dose: 3 ml Documented by: TAVO Temazepam (Temazepam 15 Mg Capsule) 15 mg PO BEDTIME PRN PRN Reason: Insomnia Trazodone HCl (Trazodone Hcl 100 Mg Tablet) 100 mg PO BEDTIME PRN PRN Reason: Sleep Labs CBC & Chem 7: 06/13/21 05:44 06/13/21 05:44 Labs: Laboratory Results - last 24 hr 06/12/21 06/12/21 06/12/21 08:28 08:28 11:08 MCV 87.6 MCH 27.7 MCHC 31.6 RDW 14.9 Plt Count TNP MPV TNP Immature Gran % (Auto) 0.3 Neut % (Auto) 96.8 H Lymph % (Auto) 2.0 L [place] % (Auto) 0.7 L Eos % (Auto) 0.1 Baso % (Auto) 0.1 Lymph # (Auto) 0.1 L [place] # (Auto) 0.1 Eos # (Auto) 0.0 Baso # (Auto) 0.0 Abs Immat Gran (auto) 0.02 Absolute Neuts (auto) 6.7 Absolute Nucleated RBC 0.000 Nucleated RBC % (auto) 0.0 Smear Tech's Comments VERIFIED Anion Gap 16 Estim Creat Clear Calc 50.3 Estimated GFR 39 POC Glucose 118 H Random Glucose 109 Calcium 8.9 D 06/12/21 06/12/21 06/13/21 15:42 19:57 05:44 MCV 89.0 MCH 27.8 MCHC 31.3 RDW 15.2 Plt Count 222 D MPV 10.7 Immature Gran % (Auto) 0.5 H Neut % (Auto) 81.4 H Lymph % (Auto) 8.8 L [place] % (Auto) 5.4 Eos % (Auto) 3.4 Baso % (Auto) 0.5 Lymph # (Auto) 0.6 L [place] # (Auto) 0.3 Eos # (Auto) 0.2 Baso # (Auto) 0.0 Abs Immat Gran (auto) 0.03 Absolute Neuts (auto) 5.1 Absolute Nucleated RBC 0.000 Nucleated RBC % (auto) 0.0 Smear Tech's Comments VERIFIED Anion Gap Estim Creat Clear Calc Estimated GFR POC Glucose 108 87 Random Glucose Calcium 06/13/21 06/13/21 05:44 07:24 MCV MCH MCHC RDW Plt Count MPV Immature Gran % (Auto) Neut % (Auto) Lymph % (Auto) [place] % (Auto) Eos % (Auto) Baso % (Auto) Lymph # (Auto) [place] # (Auto) Eos # (Auto) Baso # (Auto) Abs Immat Gran (auto) Absolute Neuts (auto) Absolute Nucleated RBC Nucleated RBC % (auto) Smear Tech's Comments Anion Gap 12 Estim Creat Clear Calc 52.1 Estimated GFR 41 POC Glucose 132 H Random Glucose 133 H Calcium 8.9 Microbiology Microbiology Results: Microbiology 06/11/21 17:17 Blood Culture - Preliminary Blood - Venous Gram negative traci 06/11/21 16:43 Blood Culture - Preliminary Blood - Venous Gram negative traci 06/11/21 17:50 Urine Culture - Final Urine clean catch - Urine guerra top Escherichia coli Assessment and Plan (1) UTI (urinary tract infection): Status: Acute (2) Hydronephrosis with obstructing calculus: Status: Acute Plan 50-year-old female with a past medical history of hypertension, diabetes, obesity, sleep apnea, history of asthma, history of respiratory failure secondary to asthma requiring intubation in October of 2020 [facility]; recent time had gallstone pancreatitis-underwent laparoscopic cholecystectomy-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 requiring exploratory laparotomy and debridement, further complicated by 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 Noted to have UTI/renal calculi hydronephrosis. Admitted for further management. sepsis secondary to UTI/obstructing kidney stone. Sepsis resolved continue IV ceftriaxone S/P cystoscopy and stent placement remove kelly catheter waiting for final cx GNR bacteremia secondary to UTI/obstructing kidney stone IV ceftriaxone as above follow final Blood cultures h/o PE/DVT On Eliquis for AC Diabetes Insulin sliding scale. Hold home oral hypoglycemic agents (metformin and glipizide) History of tracheal stenosis/tracheomalacia/ asthma s/p tracheostomy Currently breathing comfortably via trach mask. prn and scheduled breathing treatments h/o takotsubo cardiomyopathy EF 25-30% per notes from [facility] on Lasix at baseline, will hold for now given sepsis monitor fluid status closely and resume Lasix ?tomorrow am Mood continue home medications - latuda, oxcarbazepine, trazodone, clonazepam History of multiple abdominal surgeries/cutaneous fistulous: Chronic. Supportive care. No new change in her abdominal wall erythema for patient. Patient has been with general surgery team at [facility]. DVT prophylaxis: Patient on Eliquis (on hold for procedure) boots Code status: Full code Attending: Dr. Cuevas Patient requires continued hospitalization For treatment of Gram-negative traci bacteremia, final cultures are pending for assessment of appropriate antibiotic. Quality Stroke Does the patient have a stroke diagnosis?: No VTE Prior VTE?: No VTE Risk Level:: Medical - moderate - high VTE Device Contraindication: Treatment Not Indicated VTE Drug Contraindication: N/A - Med Ordered
--- NOTE | 2021-06-13 10:25 | HO.POSTANES ---
Post Anesthesia Evaluation Post Anesthesia Evaluation Vital Signs: Vital Signs Temp Pulse Resp BP Pulse Ox 06/13/21 07:51 101 H 20 06/13/21 07:28 98.2 F 100 19 113/58 L 98 06/13/21 03:41 98.3 F 94 20 101/51 L 99 06/13/21 00:00 98.7 F 95 20 95/50 L 98 Anesthesia: General Mental Status: Awake Pain Control: Satisfactory Nausea/Vomiting: None Hydration: Adequate Anesthesia-Related Issues: No Anes. Related Issues
[2021-06-13 11:17] LABS: Glucose, Whole Blood 138 mg/dL (60-115)
[2021-06-13] MEDS: Albuterol Sulfate (0.083%) 2.5 MG/3 ML VIAL.NEB INHALE (12:00)
[2021-06-13] MEDS: HYDROmorphone HCl 0.5 MG/0.5 ML SYRINGE IVPUSH (14:29)
[2021-06-13 16:18] LABS: Glucose, Whole Blood 137 mg/dL (60-115)
[2021-06-13] MEDS: ondansetron HCL 4 MG/2 ML VIAL IVPUSH (18:51)
[2021-06-13 19:28] LABS: Glucose, Whole Blood 172 mg/dL (60-115)
[2021-06-13] MEDS: cefTRIAXone sodium 1 GM in 0.9 % Sodium Chloride 50 ML IV (21:06)
[2021-06-13] MEDS: Lurasidone HCl 40 MG TABLET PO (21:06)
[2021-06-13] MEDS: Insulin Lispro 100 UNIT/ML 3 ML VIAL SUBCUT (21:06)
[2021-06-13] MEDS: Atorvastatin Calcium 10 MG TABLET PO (21:06)
[2021-06-13] MEDS: oxyCODONE HCl Immed Release 5 MG TABLET 10 MG PO (21:22)
[2021-06-14] VITALS (11 sets, daily range): BP systolic 97–135; BP diastolic 52–67; PULSE 77–92; RESP 14–20; TEMP 36.2–37.3; O2SAT 93–100
[2021-06-14] MEDS: traZODone HCL 100 MG TABLET PO (00:55)
[2021-06-14] MEDS: 0.9 % Sodium Chloride Flush 3 ML SYRINGE IVFLUSH ×4 (01:13→20:09)
[2021-06-14] MEDS: HYDROmorphone HCl 1 MG/ML SYRINGE 0.6 MG IVPUSH ×4 (07:29→20:06)
[2021-06-14] MEDS: OXcarbazepine 300 MG TABLET PO ×2 (07:30→20:07)
[2021-06-14] MEDS: Apixaban 5 MG TABLET PO ×2 (07:31→20:07)
[2021-06-14] MEDS: Albuterol/Iprat 2.5/0.5MG 3 ML AMPUL.NEB INHALE ×3 (08:01→19:56)
[2021-06-14 08:20] LABS: Glucose, Whole Blood 116 mg/dL (60-115)
--- NOTE | 2021-06-14 10:51 | HO.PM.IMPN ---
Subjective Subjective Date of Service: 06/14/21 Review of Systems Follow up UTI Physical Exam Vital Signs: Vital Signs: Last Vital Signs Temp 98.3 F 06/14/21 08:00 Pulse 87 06/14/21 08:02 Resp 16 06/14/21 08:02 BP 103/52 L 06/14/21 08:00 Pulse Ox 100 06/14/21 08:00 Oxygen Flow Rate 2 06/13/21 17:30 BMI result Body Mass Index 33.3 Appearing in no acute distress lung sounds are clear to auscultation heart regular rate rhythm, clear S1, S2 positive bowel sounds, abdomen is soft, nontender neuro patient is alert x3, no focal deficits Objective Data Active Medications Acetaminophen (Acetaminophen 325 Mg Tablet) 650 mg PO Q6H PRN PRN Reason: Pain, Mild (Pain Scale 1-3) Last Admin: 06/12/21 07:34 Dose: 650 mg Documented by: SOCORRO Acetaminophen (Acetaminophen 325 Mg Tablet) 650 mg PO ONCE PRN PRN Reason: Pain, Mild (Pain Scale 1-3) Albuterol Sulfate (Albuterol Sulfate 90 Mcg 8 Gm Inhaler) 2 puff INHALE Q4H PRN PRN Reason: shortness of breath or wheezing Albuterol Sulfate (Albuterol Sulfate (0.083%) 2.5 Mg/3 Ml Vial.Neb) 2.5 mg INHALE Q4H PRN PRN Reason: shortness of breath or wheezing Last Admin: 06/13/21 12:00 Dose: 2.5 mg Documented by: OZZIE Albuterol/Ipratropium (Albuterol/Iprat 2.5/0.5mg 3 Ml Ampul.Neb) 3 ml INHALE RQ6H WHILE AWAKE [facility] Last Admin: 06/14/21 08:01 Dose: 3 ml Documented by: OZZIE Apixaban (Apixaban 5 Mg Tablet) 5 mg PO BID [facility] Last Admin: 06/14/21 07:31 Dose: 5 mg Documented by: TAVO Atorvastatin Calcium (Atorvastatin Calcium 10 Mg Tablet) 10 mg PO BEDTIME [facility] Last Admin: 06/13/21 21:06 Dose: 10 mg Documented by: SERENA Clonazepam (Clonazepam 1 Mg Tablet) 1 mg PO BID PRN PRN Reason: Anxiety Last Admin: 06/12/21 21:33 Dose: 1 mg Documented by: DAIANA Dextrose (Dextrose 50 % 25 Gm/50 Ml Vial) 25 gm IVPUSH Q15M PRN; Protocol PRN Reason: per Hypoglycemia Standing Ord. Fentanyl (Fentanyl Citrate/Pf 100 Mcg/2 Ml Vial) 50 mcg IVPUSH Q5M PRN; Protocol PRN Reason: Pain, Severe (Pain Scale 7-10) Glucose (Glucose Gel 15 Gm Gel..Gram.) 15 gm PO Q15M PRN; Protocol PRN Reason: per Hypoglycemia Standing Ord. Hydromorphone HCl (Hydromorphone Hcl 1 Mg/Ml Syringe) 0.6 mg IVPUSH Q4H PRN; Protocol PRN Reason: Breakthrough Pain Last Admin: 06/14/21 07:29 Dose: 0.6 mg Documented by: TAVO Hydromorphone HCl (Hydromorphone Hcl 0.5 Mg/0.5 Ml Syringe) 0.5 mg IVPUSH Q5M PRN; Protocol PRN Reason: Pain, Severe (Pain Scale 7-10) Last Admin: 06/13/21 14:29 Dose: 0.5 mg Documented by: TAVO Ceftriaxone Sodium 1 gm/ (Sodium Chloride) 50 mls @ 100 mls/hr IV Q24H [facility] Last Infusion: 06/13/21 22:23 Dose: 0 mls/hr Documented by: SERENA Insulin Human Lispro (Insulin Lispro 100 Unit/Ml 3 Ml Vial) 0 unit SUBCUT QIDACHS [facility]; Protocol Last Admin: 06/14/21 08:55 Dose: Not Given Documented by: TAVO Non-Admin Reason: No Insulin Coverage Lurasidone HCl (Lurasidone Hcl 40 Mg Tablet) 40 mg PO BEDTIME [facility] Last Admin: 06/13/21 21:06 Dose: 40 mg Documented by: SERENA Melatonin (Melatonin 3 Mg Tablet) 6 mg PO BEDTIME PRN PRN Reason: Insomnia Oxcarbazepine (Oxcarbazepine 300 Mg Tablet) 300 mg PO BID [facility] Last Admin: 06/14/21 07:30 Dose: 300 mg Documented by: TAVO Pharmacy Consult (Consult Rx Perform Med Rec) 1 each MISCELLANE ONCE PRN PRN Reason: Consult order Sodium Chloride (0.9 % Sodium Chloride Flush 3 Ml Syringe) 3 ml IVFLUSH QSHIFT [facility] Last Admin: 06/14/21 07:31 Dose: 3 ml Documented by: TAVO Temazepam (Temazepam 15 Mg Capsule) 15 mg PO BEDTIME PRN PRN Reason: Insomnia Trazodone HCl (Trazodone Hcl 100 Mg Tablet) 100 mg PO BEDTIME PRN PRN Reason: Sleep Last Admin: 06/14/21 00:55 Dose: 100 mg Documented by: GIANC[facility] Labs CBC & Chem 7: 06/13/21 05:44 06/13/21 05:44 Labs: Laboratory Results - last 24 hr 06/13/21 06/13/21 06/13/21 11:06 15:19 19:23 POC Glucose 138 H 137 H 172 H 06/14/21 08:08 POC Glucose 116 H Microbiology Microbiology Results: Microbiology 06/12/21 17:11 Urine Culture - Final Urine Other - Kidney Left 06/11/21 16:43 Blood Culture - Final Blood - Venous Proteus mirabilis 06/11/21 17:17 Blood Culture - Final Blood - Venous Proteus mirabilis 06/11/21 17:50 Urine Culture - Final Urine clean catch - Urine guerra top Escherichia coli Assessment and Plan (1) UTI (urinary tract infection): Status: Acute (2) Hydronephrosis with obstructing calculus: Status: Acute Plan 50-year-old female with a past medical history of hypertension, diabetes, obesity, sleep apnea, history of asthma, history of respiratory failure secondary to asthma requiring intubation in October of 2020 [facility]; recent time had gallstone pancreatitis-underwent laparoscopic cholecystectomy-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 requiring exploratory laparotomy and debridement, further complicated by 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 Noted to have UTI/renal calculi hydronephrosis. Admitted for further management. sepsis secondary to Ecoli UTI/obstructing kidney stone. Sepsis resolved continue IV ceftriaxone S/P cystoscopy and stent placement remove kelly catheter Proteus mirabilis bacteremia secondary to UTI/obstructing kidney stone IV ceftriaxone as above ID consult h/o PE/DVT On Eliquis for AC Diabetes Insulin sliding scale. Hold home oral hypoglycemic agents (metformin and glipizide) History of tracheal stenosis/tracheomalacia/ asthma s/p tracheostomy Currently breathing comfortably via trach mask. prn and scheduled breathing treatments h/o takotsubo cardiomyopathy [place] 25[place]30[place] [facility] [place], will hold for now given sepsis monitor fluid status closely and resume Lasix ?tomorrow am Mood continue home medications - latuda, oxcarbazepine, trazodone, clonazepam History of multiple abdominal surgeries/cutaneous fistulous: Chronic. Supportive care. No new change in her abdominal wall erythema for patient. Patient has been with general surgery team at [facility]. DVT prophylaxis: Patient on Eliquis Code status: Full code Attending: Dr. Cuevas Patient requires continued hospitalization For treatment of Gram-negative traci bacteremia, final cultures are pending for assessment of appropriate antibiotic. Quality Stroke Does the patient have a stroke diagnosis?: No VTE Prior VTE?: No VTE Risk Level:: Medical - moderate - high VTE Device Contraindication: Treatment Not Indicated VTE Drug Contraindication: N/A - Med Ordered
[2021-06-14] MEDS: Insulin Lispro 100 UNIT/ML 3 ML VIAL SUBCUT ×2 (11:36→15:43)
[2021-06-14 11:40] LABS: Glucose, Whole Blood 193 mg/dL (60-115)
[2021-06-14] MEDS: Albuterol Sulfate (0.083%) 2.5 MG/3 ML VIAL.NEB INHALE (12:22)
[2021-06-14] MEDS: Acetaminophen 325 MG TABLET 650 MG PO (12:56)
[2021-06-14 15:36] LABS: Glucose, Whole Blood 197 mg/dL (60-115)
[2021-06-14 19:45] LABS: Glucose, Whole Blood 140 mg/dL (60-115)
[2021-06-14] MEDS: Atorvastatin Calcium 10 MG TABLET PO (20:06)
[2021-06-14] MEDS: clonazePAM 1 MG TABLET PO (20:07)
[2021-06-14] MEDS: Lurasidone HCl 40 MG TABLET PO (20:07)
[2021-06-14] MEDS: cefTRIAXone sodium 1 GM in 0.9 % Sodium Chloride 50 ML IV (20:10)
[2021-06-15 03:02] VITALS: BP 120/61; PULSE 85; RESP 16; TEMP 36.9; O2SAT 97
[2021-06-15] MEDS: HYDROmorphone HCl 1 MG/ML SYRINGE 0.6 MG IVPUSH ×3 (05:39→13:16)
[2021-06-15 07:24] LABS: Glucose, Whole Blood 180 mg/dL (60-115)
[2021-06-15 07:35] VITALS: BP 170/61; PULSE 74; RESP 20; TEMP 36.3; O2SAT 97
[2021-06-15 08:37] VITALS: PULSE 74; O2SAT 97
[2021-06-15] MEDS: Insulin Lispro 100 UNIT/ML 3 ML VIAL SUBCUT ×2 (08:38→11:38)
[2021-06-15] MEDS: Apixaban 5 MG TABLET PO (08:39)
[2021-06-15] MEDS: 0.9 % Sodium Chloride Flush 3 ML SYRINGE IVFLUSH (08:39)
[2021-06-15] MEDS: OXcarbazepine 300 MG TABLET PO (08:40)
[2021-06-15] MEDS: Albuterol/Iprat 2.5/0.5MG 3 ML AMPUL.NEB INHALE ×2 (09:26→13:43)
[2021-06-15 11:27] LABS: Glucose, Whole Blood 155 mg/dL (60-115)
[2021-06-15 11:56] VITALS: BP 127/60; PULSE 80; RESP 20; TEMP 36.4; O2SAT 97
--- NOTE | 2021-06-15 13:41 | PM.DS ---
DS: Providers Provider Date of Service: 06/15/21 Date of admission: 06/11/21 22:22 Primary care physician: Angie Wing MD Consults: 06/11/21 22:30 Consult to Urology Routine Consulting Provider: Aravind Agosto Reason for consultation: Renal stone/hydronephrosis 06/14/21 07:52 Consult to Infectious Diseases Routine Consulting Provider: Lulu Avina Reason for consultation: bacteremia Has provider been notified: No Attending physician on discharge: Dirk Maldonado Discharging clinician: Denise Barnes DS: Diagnosis Discharge Diagnosis (1) UTI (urinary tract infection): Status: Acute (2) Hydronephrosis with obstructing calculus: Status: Acute DS: Summary Hospital Course Hospital Course: HP as per admitting provider 50-year-old female with a past medical history of hypertension, diabetes, obesity, sleep apnea, history of asthma, history of respiratory failure secondary to asthma requiring intubation in October of 2020 [facility]; recent time had gallstone pancreatitis-underwent laparoscopic cholecystectomy-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 requiring exploratory laparotomy and debridement, further complicated by transverse colon perforation with resultant several colon cutaneous fistula and had subsequent skin graft placed on the ventral abdominal wound; during the same period? She had prolonged hospital course with multiple episodes of hypercapnic respiratory failure requiring multiple admissions; A percutaneous tracheostomy was created in November of 2020 and she was decannulated March 05-> currently follows with tracheostomy clinic; has been home for the past few weeks; presented to the hospital today with a chief complaint of left flank pain. Patient reports that she has been having burning micturition, reports he has not been cleaned well when she was at the rehab; currently denies any burning urination.? But complains of left flank pain started this morning; associated nausea; denies any diarrhea.? Denies any anterior abdominal pain.? Reports she has skin graft and is always form on active abdomen and has multiple cutaneous fistulous which have been gradually healing. Patient denies any cough or sputum production.?Denies any chest pain or palpitations.? Denies any nausea vomiting or diarrhea.?Review of all other systems is negative except mentioned aboveER course: Per ER team patient had CT abdomen which showed 5 mm obstructing renal calculus with left-sided mild hydronephrosis.? Also noted chronic finding related to her surgery.? Urinalysis abnormal consistent UTI.? Given antibiotics.? Also notify Dr. Agosto from Urology who suggested admission to the medicine service and will plan for stent in the morning . Sepsis secondary to Ecoli UTI/obstructing kidney stone. Sepsis resolved. treated with Rocephin, status post cystoscopy and stent placement, Marte catheter removed. Patient will follow up with urologist as an outpatient Proteus mirabilis bacteremia secondary to UTI/obstructing kidney stone. Treated with IV Rocephin, discussed with infectious disease. Will treat with 2 weeks of Ceftin. h/o PE/DVT. On Eliquis for AC Diabetes. Insulin sliding scale.?Hold home oral hypoglycemic agents (metformin and glipizide) History of tracheal stenosis/tracheomalacia/ asthma, s/p tracheostomy, Currently breathing comfortably via trach mask. prn and scheduled breathing treatments h/o takotsubo cardiomyopathy, EF 25-30% [place] [facility] [place] Mood. continue home medications - latuda, oxcarbazepine, trazodone, clonazepam History of multiple abdominal surgeries/cutaneous fistulous. Chronic.? Supportive care.? No new change in her abdominal wall erythema for patient.? Patient has been with general surgery team at [facility]. Time Spent with Patient Time attestation: Total time spent providing and/or coordinating discharge services: Discharge coordination time: Greater than 30 minutes Quality: Safe Use of Opioids Does Pt have an Active Cancer Diagnosis on the Problem List?: No Quality: Stroke Does the patient have a stroke diagnosis?: No Physical Exam Vital Signs: Vital Signs: Last Vital Signs Temp 97.5 F 06/15/21 11:56 Pulse 80 06/15/21 11:56 Resp 20 06/15/21 11:56 BP 127/60 06/15/21 11:56 Pulse Ox 97 06/15/21 11:56 Oxygen Flow Rate 2 06/14/21 17:00 BMI result Body Mass Index 33.3 Appearing in no acute distress head is normocephalic atraumatic eyes pupils are PERRLA sclera is anicteric mouth throat mucous membranes are intact and moist neck is supple no lymphadenopathy, no JVD noted lung sounds are clear to auscultation heart regular rate rhythm, clear S1, S2 positive bowel sounds, abdomen is soft, nontender neuro patient is alert x3, no focal deficits abdominal scarring DS: Data Data Completed and Pending Labs on day of discharge: Laboratory Results - last 24 hr 06/14/21 06/14/21 06/15/21 15:30 19:39 07:19 POC Glucose 197 H 140 H 180 H 06/15/21 11:22 POC Glucose 155 H Discharge Plan Discharge Anticipated Discharge Date/Time: 06/15/21 13:30 Patient Disposition: Home Health Service Discharge Diagnosis: Sepsis secondary to Ecoli UTI/obstructing kidney stone. Proteus mirabilis bacteremia secondary to UTI/obstructing kidney stone Referrals: [facility] [Other] - 1 Day (RESUMPTION OF HER VNA FOR NRUSING 9wound care dressing changes),HOME PT/OT 2, PROMPT DME FOR HOME OXYGENM, NEBULIZER, PORTQBLE SUCTION AND TRACH AND ALL RELATED SUPPLIES CENTRAL INRTAKE 3/ SELF RESUMPTION OF HER N MENTAL HEALTH COUNSELING VIA TELEPHONE 4 TRABNSPORTTION HER ) Angie Wing MD [Primary Care Provider] - 1 Week Discharge Medications: New cefuroxime axetil 500 mg tablet 500 mg PO BID Qty: 28 0RF Continued albuterol sulfate 90 mcg/actuation HFA aerosol inhaler 2 puff inhalation Q4-6H PRN (Reason: shortness of breath or wheezing) Qty: 8.5 0RF furosemide 40 mg tablet 1 tab PO BID 0RF atorvastatin 10 mg tablet 1 tab PO BEDTIME 0RF clonazepam 1 mg tablet 1 tab PO BID PRN (Reason: Anxiety) 0RF oxcarbazepine 300 mg tablet 1 tab PO BID 0RF trazodone 100 mg tablet 1 tab PO BEDTIME PRN (Reason: Sleep) 0RF metformin 500 mg tablet extended release 24 hr 2 tab PO BID 0RF glipizide 5 mg tablet 1 tab PO BID 0RF Latuda 40 mg tablet 1 tab PO BEDTIME 0RF Eliquis 5 mg tablet 5 mg PO BID 0RF albuterol sulfate 2.5 mg/0.5 mL solution for nebulization 2.5 mg inhalation Q4H PRN (Reason: shortness of breath or wheezing) 0RF Discharge Orders: Discharge Order (Routine); Ordered 06/15/21 Ordered By: Denise Barnes Diet: advance to usual diet Activity on Discharge: As tolerated Stand Alone Forms: Patient Portal Discharge page Care Plan Goals: Resolution of symptoms Health Concerns: Sepsis secondary to Ecoli UTI/obstructing kidney stone. Proteus mirabilis bacteremia secondary to UTI/obstructing kidney stone Plan of Treatment: Follow up with the urologist as needed Assessment: See discharge summary
--- NOTE | 2021-06-15 14:00 | MHC.CM.PN ---
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 PATIENT IS AWARE THAT SHE WILL BE DISCHARGED BACK HOME TODAY , SPOKE WITH PATIENT AND HER DOM HE CONFIRMED THAT HE WILL BE TRANSPORTING SIMON AT DISCHARGE DISCHARGE PLAN HOME WHERE HSE RESIDES WITHHER DESTNIEY FERNANDES 2 [facility] V[facility] RESUMNPTION FOR NRUSING FOR WOUND CARE DRESSINGA AND HOME PT/OT SERVICES DISCHARGE PAPERWORK SENT VIA ALLSCRIPTS TO THEM 3. PROMPT DME FOR HOMR ODYGEN, NRBI;IZER, PORTABLE SUCTION ANS TRACH AND ALL RELATED SUPPLIES 4 SELF RESUMPITON OF HER [facility] MENTAL HEALTH COUNSELING ' 5, PCP DR ALVAREZ
== END 2021-06-15 15:22 | disposition home health service (06) | DRG 720 ==
LOC: HO.ED 20:55 → HO.EDOVER 22:40 → HO.S3 23:51
PROVIDERS: Physician Assistant; Physician Assistant Medical; Urology; Admitting Provider Hospitalist; Emergency Provider Emergency Medicine; PCP Internal Medicine; Visit Provider Nurse Practitioner Acute Care
PROC: 0T778DZ Dilation of Left Ureter with Intraluminal Device, Via Natural or Artificial Opening Endoscopic (ICD-10-PCS; principal; 2021-06-12 16:30)
DX: A41.9 Sepsis, unspecified organism (principal); K76.0 Fatty (change of) liver, not elsewhere classified; Z93.0 Tracheostomy status; N13.6 Pyonephrosis; E66.9 Obesity, unspecified; E11.9 Type 2 diabetes mellitus without complications; B96.20 Unspecified Escherichia coli [E. coli] as the cause of diseases classified elsewhere; J45.909 Unspecified asthma, uncomplicated; F31.9 Bipolar disorder, unspecified; I10 Essential (primary) hypertension; Z86.711 Personal history of pulmonary embolism; Z86.718 Personal history of other venous thrombosis and embolism; Z68.33 Body mass index [BMI] 33.0-33.9, adult; Z20.822 Contact with and (suspected) exposure to COVID-19; Z79.01 Long term (current) use of anticoagulants; Z79.84 Long term (current) use of oral hypoglycemic drugs; Z79.899 Other long term (current) drug therapy; B96.4 Proteus (mirabilis) (morganii) as the cause of diseases classified elsewhere
CPT/HCPCS: 36415; 71045; 74177; 80048; 80053; 81001; 81025; 82947; 83605; 83690; 84484; 84702; 85025; 87040; 87077; 87086; 87088; 87186; 87205; 87635; 93005; 94640; 96361; 96365; 96375; 96376; 97162; 97163; 99285; C1758; C1769; C2617; J0696; J1170; J1885; J2250; J2270; J2370; J2405; J2550; J3010; Q9967

== ENCOUNTER 2021-06-24 11:25 | Emergency (ER) | payer OTHER, SELFPAY ==
--- NOTE | ~2021-06-24 | CT_ITS ---
EXAMINATION: CT ABDOMEN AND PELVIS WITH CONTRAST CLINICAL INFORMATION: lower abdominal pain, draining fistula purulence COMPARISON: 06/11/2021 CT scan TECHNIQUE: Multidetector volumetric imaging was performed from the superior aspect of the liver through the pubic symphysis following administration of 100 mL Omnipaque 300 intravenous contrast. Sagittal and coronal reformatted images were obtained on the technologist workstation.. This CT examination was performed using dose optimization techniques as appropriate, variously including the following: *Automated exposure control *Adjustment of mA and/or kV according to patient size (this includes techniques or standardized protocols for targeted exams where dose is matched to indication/reason for exam; i.e. extremities or head) *Use of iterative reconstruction technique DLP: 941 mGy-cm FINDINGS: LUNG BASES: Minimal linear atelectatic change LIVER, GALLBLADDER, AND BILIARY TREE: Diffuse fatty infiltration liver with focal fatty sparing adjacent to the gallbladder fossa. No obvious biliary ductal dilatation. Gallbladder is surgically absent. PANCREAS: There is chronic peripancreatic changes seen suggesting the possibility of a remote history of pancreatitis but this does not appear to represent any acute process. There is retraction of the stomach towards this region. SPLEEN: Unremarkable. ADRENAL GLANDS: Unremarkable. KIDNEYS AND URETERS: Left renal stent is now place with decompressed renal collecting systems. Tiny intrarenal calculi bilaterally. Right lower pole renal cyst. BLADDER: Distal aspect of the ureteric stent seen within the otherwise unremarkable bladder GASTROINTESTINAL TRACT: Stool and air seen within the colon to the rectum. I do not appreciate any obvious obstructive changes to the small bowel. Stomach is decompressed but directly abutting the anterior abdominal wall in the region of the diastases. ABDOMINAL WALL: Prominent diastases and bulging of the abdominal contents to the subcutaneous surface in the anterior midline superiorly LYMPHOVASCULAR STRUCTURES: IVC filter. Mild vascular calcifications. PELVIC VISCERA: IUD noted OSSEOUS STRUCTURES: Degenerative changes in the spine with postoperative spinal fusion of L4/L5. CT/CT abdomen pelvis w con IMPRESSION: Chronic appearing changes as described above. Left ureteric stent is now place. Diffuse fatty infiltration of the liver without focal hepatic lesion. I do not appreciate any discrete suspicious drainable collection. Trace amount of fluid is seen. Bowel structures do extend to the region of wide abdominal diastases to the subcutaneous skin surface but I do not appreciate a definitive enterocutaneous fistula.
[2021-06-24 12:35] VITALS: BP 139/93; PULSE 108; RESP 18; TEMP 37.2; O2SAT 97; BMI 36.3
[2021-06-24 14:01] LABS: MANUAL DIFF FLAG NO
[2021-06-24 14:05] LABS: Basophils Absolute Auto 0.1 X10*3/uL (0.0-0.2); Basophils Percent Auto 0.5 % (0-2); Eosinophils Absolute Auto 0.3 X10*3/uL (0.0-0.4); Eosinophils Percent Auto 2.4 % (0-4); Hematocrit 33.6 % (37.0-47.0); Hemoglobin 10.5 g/dl (12.0-16.0); Imm Gran Abs Auto 0.04 X10*3/uL (0.00-0.03); Imm Gran Pct Auto 0.4 % (0.0-0.4); Lymphocytes Percent Auto 8.6 % (20-40); Mean Corpuscular HGB Conc 31.3 g/dl (31.0-35.0); Mean Corpuscular Hemoglobin 27.9 pg (27.0-33.0); Mean Corpuscular Volume 89.1 fL (80.0-98.0); Mean Platelet Volume 9.4 fL (9.4-12.3); Monocytes Absolute Auto 0.4 X10*3/uL (0.1-1.2); Neutrophils Absolute Auto 9.3 x10*3/uL (2.0-8.3); Neutrophils Percent Auto 84.1 % (45-73); Platelet Count 511 X10*3/uL (160-400); Red Blood Count 3.77 X10*6/uL (4.20-5.50); Red Cell Distribution Width 15.4 % (11.0-16.0); White Blood Count 11.1 X10*3/uL (4.8-10.8)
[2021-06-24 14:16] LABS: Lactic Acid 1.2 mmol/L (0.5-2.0)
[2021-06-24 14:21] LABS: Alanine Aminotransferase 16 U/L (0-31); Albumin Level 3.3 g/dL (3.5-5.0); Alkaline Phosphatase 381 U/L (39-117); Anion Gap 13 (12-20); Aspartate Amino Transferase 23 U/L (5-31); Bilirubin Total 0.3 mg/dL (0.0-1.0); Blood Urea Nitrogen 5 mg/dL (9-16); Calcium 8.8 mg/dL (8.4-10.2); Carbon Dioxide 25 mmol/L (22-29); Chloride 103 mmol/L (96-108); Creatinine Clr Calc Pharmacy 86.9; Estimated Glomerular Filt Rate > 60; Glucose Random 105 mg/dL (60-115); Potassium 4.4 mmol/L (3.3-5.1); Sodium 137 mmol/L (135-145); Total Protein 6.8 g/dL (6.5-8.0)
[2021-06-24 14:33] VITALS: BP 161/78; PULSE 103; RESP 18; O2SAT 99
--- NOTE | 2021-06-24 14:36 | ED_ITS ---
HPI - Abdominal Pain General Chief Complaint: Abdominal Pain Stated Complaint: Infected wounds/flank pain Time Seen by Provider: 06/24/21 12:11 Source: patient and old records reviewed Mode of arrival: ambulatory Limitations: no limitations History of Present Illness MD elicited complaint: abdominal pain (drainage from fistula) Pertinent past history: other (chronic fistulas) Onset (ago): week(s) (1) Pain Consistency: constant Location: periumbilical Severity: severe Quality: aching and fullness Radiation: none Migration to: no migration Exacerbating factors: movement Relieving factors: nothing Context: other (hx of chronic enterocutaneous fistulas - new discharge this stopped until recently - states it is burning her abdomen) Associated symptoms: nausea, fever and chills Treatments prior to arrival: other (taking her ceftin) Related Data Home Medications Medication Instructions Recorded Confirmed albuterol sulfate 2.5 mg/0.5 mL 2.5 mg INHALATION Q4H PRN 06/11/21 06/11/21 solution for nebulization apixaban 5 mg tablet (Eliquis) 5 mg PO BID 06/11/21 06/11/21 atorvastatin 10 mg tablet 1 tab PO BEDTIME 06/11/21 06/11/21 clonazepam 1 mg tablet 1 tab PO BID PRN 06/11/21 06/11/21 furosemide 40 mg tablet 1 tab PO BID 06/11/21 06/11/21 glipizide 5 mg tablet 1 tab PO BID 06/11/21 06/11/21 lurasidone 40 mg tablet (Latuda) 1 tab PO BEDTIME 06/11/21 06/11/21 metformin 500 mg tablet,extended 2 tab PO BID 06/11/21 06/11/21 release 24 hr oxcarbazepine 300 mg tablet 1 tab PO BID 06/11/21 06/11/21 trazodone 100 mg tablet 1 tab PO BEDTIME PRN 06/11/21 06/11/21 Previous Rx's Medication Instructions Recorded albuterol sulfate 90 mcg/actuation 2 puff INHALATION Q4-6H PRN #8.5 g 06/01/20 aerosol inhaler cefuroxime axetil 500 mg tablet 500 mg PO BID #28 tab 06/15/21 oxycodone 5 mg tablet 5 mg PO Q8H PRN #9 tab 06/15/21 Allergies Allergy/AdvReac Type Severity Reaction Status Date / Time pantoprazole Allergy Unknown Verified 06/11/21 15:17 Review of Systems Review of Systems Constitutional : No Weight loss, pos Fever, pos Chills ENT/Mouth : No sore throat, No Rhinorrhea Eyes: No Swelling, No Redness Cardiovascular : No Chest Pain, No SOB, NoEdema Respiratory : No Cough, No Sputum, No Wheezing Gastrointestinal : Positive Nausea, Positive Vomiting, no Diarrhea, positive abdominal Pain, No Hematochezia, No Melena Genitourinary : No Dysuria, No Urinary Frequency, No Hematuria, No Urgency Musculoskeletal : No joint pain, No Myalgias, No Joint Swelling Skin : No Skin Lesions, pos rash, pos wound Neuro : No Weakness, No Numbness, No Dizziness, No Headache Psych : No Anxiety/Panic, No Depression Heme/Lymph: No Bruising, No Lymphadenopathy Endocrine : No Polyuria, No Polydipsia All other systems reviewed and are negative. [facility] Past Medical History Attestation statement: The following information was validated with the patient. Medical History (Updated 06/24/21 @ 14:54 by Jenny Mortensen DO) Asthma Bipolar 1 disorder Diabetes Kidney stones Substance abuse Takotsubo cardiomyopathy UTI (urinary tract infection) Surgical History (Updated 06/24/21 @ 14:37 by Jenny Mortensen DO) H/O exploratory laparotomy S/P cholecystectomy S/P ureteral stent placement Social History Social History Household Members: Spouse Housing: Apartment Do you presently have visiting nurse or other home services: Yes (visiting nurses, pt/ot) Alcohol intake: never Patient Tobacco Use Status: Never used Tobacco Advance Directives: No service: No Current occupational status: disabled Physical Exam ED Vital Signs: Vital Signs - 24 hr 06/24/21 12:35 06/24/21 14:33 Temperature 98.9 F Pulse Rate 108 H 103 H Respiratory Rate 18 18 Blood Pressure 139/93 H 161/78 H Pulse Oximetry 97 99 BMI result Body Mass Index 36.3 Appearance: Alert. Oriented X3. No acute distress. Eyes: Pupils equal, round and reactive to light. ENT: Pharynx normal. Neck: Normal inspection. Neck supple. CVS: Normal heart rate and rhythm. Pulses normal. Respiratory: No respiratory distress. Breath sounds normal. Abdomen: Soft and obese graft in place ttp along graft with erythema - if you push the graft purulence comes out - significant amount Skin: Skin warm and dry. pale skin color. Normal skin turgor. Extremities: No lower extremity edema. No calf ttp Neuro: Oriented X 3. No motor deficit. No sensory deficit. Course Course Course Narrative: signed out to Dr. Argueta pending CT scan MDM - Abdominal Pain MDM Narrative Medical decision making narrative: 50 yo female with hx of asthma, bipolar, DM, trach, enterocutaneous fistulas following surgery at [facility] [place] - just seen here / s/p stent for ureteral stone and proteus infection - on home ceftin comes in given 1 week of purulence from her lower abdominal wound - this is new. Will need labs, IV antibiotics, CT scan for deep abscess - dispo per results and findings. Lab Data Result diagrams: 06/24/21 13:55 06/24/21 13:55 Labs: Lab Results 06/24/21 06/24/21 06/24/21 Range/Units 13:55 13:55 13:55 WBC 11.1 H (4.8-10.8) X10*3/uL RBC 3.77 L (4.20-5.50) X10*6/uL Hgb 10.5 L (12.0-16.0) g/dl Hct 33.6 L (37.0-47.0) % MCV 89.1 (80.0-98.0) fL MCH 27.9 (27.0-33.0) pg MCHC 31.3 (31.0-35.0) g/dl RDW 15.4 (11.0-16.0) % Plt Count 511 H D (160-400) X10*3/uL MPV 9.4 (9.4-12.3) fL Immature Gran % (Auto) 0.4 (0.0-0.4) % Neut % (Auto) 84.1 H (45-73) % Lymph % (Auto) 8.6 L (20-40) % [place] % (Auto) 4.0 (2-11) % Eos % (Auto) 2.4 (0-4) % Baso % (Auto) 0.5 (0-2) % Lymph # (Auto) 1.0 L (1.2-4.9) X10*3/uL [place] # (Auto) 0.4 (0.1-1.2) X10*3/uL Eos # (Auto) 0.3 (0.0-0.4) X10*3/uL Baso # (Auto) 0.1 (0.0-0.2) X10*3/uL Abs Immat Gran (auto) 0.04 H (0.00-0.03) X10*3/uL Absolute Neuts (auto) 9.3 H (2.0-8.3) x10*3/uL Absolute Nucleated RBC 0.000 (0.0-0.012) X10*3/uL Nucleated RBC % (auto) 0.0 (0.0-0.2) /100WBC Sodium 137 (135-145) mmol/L Potassium 4.4 D (3.3-5.1) mmol/L Chloride 103 (96-108) mmol/L Carbon Dioxide 25 (22-29) mmol/L Anion Gap 13 (12-20) BUN 5 L D (9-16) mg/dL Creatinine 0.83 (0.5-1.4) mg/dL Estim Creat Clear Calc 86.9 Estimated GFR > 60 Random Glucose 105 (60-115) mg/dL Lactic Acid 1.2 (0.5-2.0) mmol/L Calcium 8.8 (8.4-10.2) mg/dL Total Bilirubin 0.3 (0.0-1.0) mg/dL AST 23 D (5-31) U/L ALT 16 (0-31) U/L Alkaline Phosphatase 381 H (39-117) U/L Total Protein 6.8 (6.5-8.0) g/dL Albumin 3.3 L (3.5-5.0) g/dL Lipase 11 (8-78) U/L Discharge Plan Discharge Clinical Impression: Enterocutaneous fistula Prescriptions: No Action albuterol sulfate 90 mcg/actuation HFA aerosol inhaler 2 puff inhalation Q4-6H PRN (Reason: shortness of breath or wheezing) Qty: 8.5 0RF furosemide 40 mg tablet 1 tab PO BID 0RF atorvastatin 10 mg tablet 1 tab PO BEDTIME 0RF clonazepam 1 mg tablet 1 tab PO BID PRN (Reason: Anxiety) 0RF oxcarbazepine 300 mg tablet 1 tab PO BID 0RF trazodone 100 mg tablet 1 tab PO BEDTIME PRN (Reason: Sleep) 0RF metformin 500 mg tablet extended release 24 hr 2 tab PO BID 0RF glipizide 5 mg tablet 1 tab PO BID 0RF Latuda 40 mg tablet 1 tab PO BEDTIME 0RF Eliquis 5 mg tablet 5 mg PO BID 0RF albuterol sulfate 2.5 mg/0.5 mL solution for nebulization 2.5 mg inhalation Q4H PRN (Reason: shortness of breath or wheezing) 0RF cefuroxime axetil 500 mg tablet 500 mg PO BID Qty: 28 0RF oxycodone 5 mg tablet 5 mg PO Q8H PRN (Reason: pain) Qty: 9 0RF
[2021-06-24] MEDS: HYDROmorphone HCl 1 MG/ML SYRINGE IVPUSH ×2 (15:31→18:14)
[2021-06-24] MEDS: cefEPime HCl 1 GM in 0.9 % Sodium Chloride 50 ML IV (15:32)
[2021-06-24] MEDS: vancomycin HCL 1,250 MG in 0.9 % Sodium Chloride 250 ML 166.67 MG IV (15:32)
[2021-06-24 15:46] LABS: Lipase 11 U/L (8-78)
[2021-06-24] MEDS: iohexoL 350 MG/ML 100 ML INFUS..BTL IV (16:16)
[2021-06-24 17:14] VITALS: BP 124/78; PULSE 92; RESP 16; TEMP 36.9; O2SAT 93
--- NOTE | 2021-06-24 17:40 | PM.CNGS ---
History of Present Illness Consult details Consult date: 06/24/21 Narrative: 50F referred for some drainage from old wounds on her abdomen. She has a complex history. She apparently was found in respiratory arrest after an episode of astham last December 2020. She says she was on the ventilatory for several weeks in [facility]. 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 She says she had a lot of drains in place and also had an enterocutaneous fistula. She says she eventually had a graft in place. She says she has had chronic abdominal pain since then. She has a tracheostomy in place. She says one of her old drain sites had some scanty pus so she came to the ED today. She says she does not see a surgeon anymore in [place] as she stated she does not want to go back to [facility]. She sees a tracheostomy clinic in [place]. She says she has had poor appetite ever since she had the her surgeries. Review of Systems Constitutional: Constitutional: Denies chills and Denies fever(s) Cardiovascular: Cardiovascular: Denies chest pain, Reports dyspnea and Reports dyspnea on exertion Respiratory: Respiratory: Reports cough, Reports dyspnea and Reports dyspnea on exertion Comments: has tracheostomy Gastrointestinal: Gastrointestinal: Reports abdominal pain (chronic) and Denies vomiting Genitourinary: Genitourinary: Denies difficulty voiding Comments: says she has kidney stones Musculoskeletal: Musculoskeletal: Reports abnormal gait, Reports back pain and Reports myalgias Neurologic: Reports abnormal gait Psychiatric: Psychiatric: Reports anxiety [facility] Past Medical History Medical History (Updated 06/25/21 @ 00:02 by Rosie Mendes) Asthma Bipolar 1 disorder Diabetes Kidney stones Substance abuse Takotsubo cardiomyopathy UTI (urinary tract infection) Wound drainage Surgical History Surgical History (Updated 06/24/21 @ 14:37 by Jenny Mortensen DO) H/O exploratory laparotomy S/P cholecystectomy S/P ureteral stent placement Social History Social History Household Members: Spouse Housing: Apartment Do you presently have visiting nurse or other home services: Yes (visiting nurses, pt/ot) Alcohol intake: never Patient Tobacco Use Status: Never used Tobacco Advance Directives: No service: No Current occupational status: disabled Meds Allergies Allergy/AdvReac Type Severity Reaction Status Date / Time pantoprazole Allergy Unknown Verified 06/11/21 15:17 Home Medications Medication Instructions Recorded Confirmed Last Taken Type albuterol sulfate 2.5 mg/0.5 mL 2.5 mg INHALATION Q4H PRN 06/11/21 06/11/21 Unknown History solution for nebulization apixaban 5 mg tablet (Eliquis) 5 mg PO BID 06/11/21 06/11/21 06/11/21 History atorvastatin 10 mg tablet 1 tab PO BEDTIME 06/11/21 06/11/21 06/10/21 History clonazepam 1 mg tablet 1 tab PO BID PRN 06/11/21 06/11/21 06/11/21 History furosemide 40 mg tablet 1 tab PO BID 06/11/21 06/11/21 06/11/21 History glipizide 5 mg tablet 1 tab PO BID 06/11/21 06/11/21 06/11/21 History lurasidone 40 mg tablet (Latuda) 1 tab PO BEDTIME 06/11/21 06/11/21 06/10/21 History metformin 500 mg tablet,extended 2 tab PO BID 06/11/21 06/11/21 06/11/21 History release 24 hr oxcarbazepine 300 mg tablet 1 tab PO BID 06/11/21 06/11/21 06/11/21 History trazodone 100 mg tablet 1 tab PO BEDTIME PRN 06/11/21 06/11/21 06/10/21 History Physical Exam Vital Signs: Vital Signs: Last Vital Signs Temp 98.4 F 06/24/21 17:14 Pulse 92 06/24/21 17:14 Resp 16 06/24/21 17:14 BP 124/78 06/24/21 17:14 Pulse Ox 93 06/24/21 17:14 BMI result Body Mass Index 36.3 Const: General: comfortable and no acute distress Resp: Other: has tracheostomy Effort & Inspection: normal respiratory effort Cardio: Rate: regular rate GI: Other: protruberant, soft, small wound on the lower part of abdomen, very scanty drainage, not enteric output, Palpation (GI): no guarding Extrem: General: Yes normal to inspection Results Labs Result diagrams: 06/24/21 13:55 06/24/21 13:55 Labs: Abnormal lab results 06/24/21 06/24/21 Range/Units 13:55 13:55 WBC 11.1 H (4.8-10.8) X10*3/uL RBC 3.77 L (4.20-5.50) X10*6/uL Hgb 10.5 L (12.0-16.0) g/dl Hct 33.6 L (37.0-47.0) % Plt Count 511 H D (160-400) X10*3/uL Neut % (Auto) 84.1 H (45-73) % Lymph % (Auto) 8.6 L (20-40) % Lymph # (Auto) 1.0 L (1.2-4.9) X10*3/uL Abs Immat Gran (auto) 0.04 H (0.00-0.03) X10*3/uL Absolute Neuts (auto) 9.3 H (2.0-8.3) x10*3/uL BUN 5 L D (9-16) mg/dL Alkaline Phosphatase 381 H (39-117) U/L Albumin 3.3 L (3.5-5.0) g/dL Short CBC 06/24/21 Range/Units 13:55 WBC 11.1 H (4.8-10.8) X10*3/uL Hgb 10.5 L (12.0-16.0) g/dl Hct 33.6 L (37.0-47.0) % Plt Count 511 H D (160-400) X10*3/uL BMP 06/24/21 13:55 Sodium 137 Potassium 4.4 D Chloride 103 Carbon Dioxide 25 BUN 5 L D Creatinine 0.83 Calcium 8.8 Liver Function 06/24/21 Range/Units 13:55 Total Bilirubin 0.3 (0.0-1.0) mg/dL AST 23 D (5-31) U/L ALT 16 (0-31) U/L Alkaline Phosphatase 381 H (39-117) U/L Albumin 3.3 L (3.5-5.0) g/dL All other labs normal. Imaging Additional studies: Laboratory Results WBC 11.1 X10*3/uL (4.8-10.8) H 06/24/21 13:55 RBC 3.77 X10*6/uL (4.20-5.50) L 06/24/21 13:55 Hgb 10.5 g/dl (12.0-16.0) L 06/24/21 13:55 Hct 33.6 % (37.0-47.0) L 06/24/21 13:55 MCV 89.1 fL (80.0-98.0) 06/24/21 13:55 MCH 27.9 pg (27.0-33.0) 06/24/21 13:55 MCHC 31.3 g/dl (31.0-35.0) 06/24/21 13:55 RDW 15.4 % (11.0-16.0) 06/24/21 13:55 Plt Count 511 X10*3/uL (160-400) H D 06/24/21 13:55 MPV 9.4 fL (9.4-12.3) 06/24/21 13:55 Immature Gran % (Auto) 0.4 % (0.0-0.4) 06/24/21 13: Neut % (Auto) 84.1 % (45-73) H 06/24/21 13:55 Lymph % (Auto) 8.6 % (20-40) L 06/24/21 13:55 [place] % (Auto) 4.0 % (2-11) 06/24/21 13: Eos % (Auto) 2.4 % (0-4) 06/24/21 13: Baso % (Auto) 0.5 % (0-2) 06/24/21 13:55 Lymph # (Auto) 1.0 X10*3/uL (1.2-4.9) L 06/24/21 13:55 [place] # (Auto) 0.4 X10*3/uL (0.1-1.2) 06/24/21 13:55 Eos # (Auto) 0.3 X10*3/uL (0.0-0.4) 06/24/21 13:55 Baso # (Auto) 0.1 X10*3/uL (0.0-0.2) 06/24/21 13:55 Abs Immat Gran (auto) 0.04 X10*3/uL (0.00-0.03) H 06/24/21 13:55 Absolute Neuts (auto) 9.3 x10*3/uL (2.0-8.3) H 06/24/21 13:55 Absolute Nucleated RBC 0.000 X10*3/uL (0.0-0.012) 06/24/21 13:55 Nucleated RBC % (auto) 0.0 /100WBC (0.0-0.2) 06/24/21 13:55 Sodium 137 mmol/L (135-145) 06/24/21 13:55 Potassium 4.4 mmol/L (3.3-5.1) D 06/24/21 13:55 Chloride 103 mmol/L (96-108) 06/24/21 13:55 Carbon Dioxide 25 mmol/L (22-29) 06/24/21 13:55 Anion Gap 13 (12-20) 06/24/21 13:55 BUN 5 mg/dL (9-16) L D 06/24/21 13:55 Creatinine 0.83 mg/dL (0.5-1.4) 06/24/21 13:55 Estim Creat Clear Calc 86.9 06/24/21 13:55 Estimated GFR > 60 06/24/21 13:55 Random Glucose 105 mg/dL (60-115) 06/24/21 13:55 Lactic Acid 1.2 mmol/L (0.5-2.0) 06/24/21 13:55 Calcium 8.8 mg/dL (8.4-10.2) 06/24/21 13:55 Total Bilirubin 0.3 mg/dL (0.0-1.0) 06/24/21 13:55 AST 23 U/L (5-31) D 06/24/21 13:55 ALT 16 U/L (0-31) 06/24/21 13:55 Alkaline Phosphatase 381 U/L (39-117) H 06/24/21 13:55 Total Protein 6.8 g/dL (6.5-8.0) 06/24/21 13:55 Albumin 3.3 g/dL (3.5-5.0) L 06/24/21 13:55 Lipase 11 U/L (8-78) 06/24/21 13:55 Impressions Abdomen/Pelvis CT 06/24/21 16:28 IMPRESSION: Chronic appearing changes as described above. Left ureteric stent is now place. Diffuse fatty infiltration of the liver without focal hepatic lesion. I do not appreciate any discrete suspicious drainable collection. Trace amount of fluid is seen. Bowel structures do extend to the region of wide abdominal diastases to the subcutaneous skin surface but I do not appreciate a definitive enterocutaneous fistula. Assessment and Plan (1) Wound drainage: Status: Acute There is note of some very scanty drainage form one of her old drain sites on the lower abdomen. This does not appear to be enteric contents.. She says she has had this wound since her surgeries and this had been slow to heal. She does state that the drainage used to be heavier. I have reviewed her CT scan and this does not show an enterocutaneous fistula.I assured her about this. She may be given antibiotics for gm positive overage in view of some scanty drainage from the old LAURA site. Overall, she has a very benign exam. I did advise her to make sure she continues to follow up with her doctors in [place]. Procedures Date of Service Date of Service: 06/24/21
[2021-06-24] MEDS: Sulfamethox/Trimeth 800/160 TABLET 1 TAB PO (18:14)
== END 2021-06-24 18:34 | disposition home or self-care (01) ==
PROVIDERS: Emergency Medicine; Emergency Provider Emergency Medicine; PCP Internal Medicine
DX: K63.2 Fistula of intestine (principal); L24.A9 Irritant contact dermatitis due friction or contact with other specified body fluids; R50.9 Fever, unspecified; Z79.899 Other long term (current) drug therapy
CPT/HCPCS: 36415; 74177; 80053; 83605; 83690; 85025; 87040; 87071; 87077; 87186; 87205; 96365; 96375; 96376; 99284; J0692; J1170; J2550; J3370; Q9967

== ENCOUNTER 2021-06-26 20:05 | Inpatient (IN) | payer OTHER, SELFPAY ==
[2021-06-26] VITALS (8 sets, daily range): BP systolic 110–144; BP diastolic 55–87; PULSE 100–105; RESP 16–24; TEMP 36.3–37.1; O2SAT 93–95; BMI 36.3
--- NOTE | ~2021-06-26 | CT_ITS ---
EXAMINATION: CT ABDOMEN AND PELVIS WITH CONTRAST CLINICAL INFORMATION: Lower abdominal pain. Follow-up extraperitoneal gas COMPARISON: None TECHNIQUE: Multidetector volumetric images were obtained from the superior aspect of the liver through the pubic symphysis following administration 85 mL of Omnipaque 350 intravenous contrast. Sagittal and coronal reformatted images were obtained on the technologist's workstation. Oral contrast: No This CT examination was performed using dose optimization techniques as appropriate, variously including the following: *Automated exposure control *Adjustment of mA and/or kV according to patient size (this includes techniques or standardized protocols for targeted exams where dose is matched to indication/reason for exam; i.e. extremities or head) *Use of iterative reconstruction technique DLP: 782 mGy-cm FINDINGS: LUNG BASES: Trace bilateral pleural effusions. Bibasilar atelectasis. Findings are similar to prior studies. LIVER, GALLBLADDER, AND BILIARY TREE: Liver is diffusely hypoattenuating consistent with severe hepatic steatosis. No focal liver lesion seen. Hepatic and portal veins enhance normally. Gallbladder partially distended. No biliary ductal dilatation. PANCREAS: The pancreas is diffusely atrophic. There continues to be fluid in the left anterior pararenal space along left paracolic gutter. SPLEEN: Unremarkable. ADRENAL GLANDS: Unremarkable. KIDNEYS AND URETERS: Left-sided nephroureteral stent in place. 2 punctate 1 to 2 mm left mid renal calculi. No hydronephrosis bilaterally. Symmetric bilateral renal enhancement. 1.7 cm likely cyst of the right mid-lower kidney, unchanged and requiring no imaging follow-up. BLADDER: Left-sided nephroureteral stent in place. No calculi or mass. GASTROINTESTINAL TRACT: Stomach and small bowel are nondilated. Again seen is tethering of the posterior stomach, proximal small bowel, and left colon in the left upper quadrant. In image 39/97 there is a 2.6 x 1.5 cm extraluminal collection of gas and fluid, that on coronal images but appears to be contiguous with the left colon, image 46, and extend to the undersurface of the stomach and along mesenteric fat planes to adjacent loop of small bowel. In axial image 39/97 at the midline there is a slightly increased 2.3 cm focus of extraluminal gas anterior to the superior mesenteric vein. In addition, there appears to be a rim-enhancing fistulous tract extending from the anterior wall of the left colon in image 47/97, into the left anterior abdominal wall musculature. There is a large volume stool throughout the colon. ABDOMINAL WALL: The fistula from the left colon described above is followed into inferiorly into the left anterior abdominal wall musculature where there are new curvilinear foci of gas, for example image 64/97 and image 68/97, in keeping with the fistulous tract. There is marked diastases of the rectus abdominis. LYMPH NODES: Normal. VASCULAR: Normal caliber aorta. IVC filter in place. PELVIC VISCERA: In IUD is seen in the uterus, it is somewhat low lying, possibly partially within the endocervical canal. No adnexal mass. OSSEOUS STRUCTURES: Postoperative changes at L4-L5. CT/CT abdomen pelvis w con IMPRESSION: Again seen is extraluminal gas in the left upper quadrant. 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 These findings have been present to a greater or lesser degree since 06/11/2021. Now seen is gas within the left abdominal wall extending to the skin surface. This appears to be contiguous from a fistula from the left colon to the anterior abdominal wall, in image 46/97. Presumably there is an underlying infectious or inflammatory process as the etiology of the underlying fistulas. It seems less likely that these fistulas are sequelae of pancreatitis.
--- NOTE | ~2021-06-26 | CT_ITS ---
EXAMINATION: CT ABDOMEN AND PELVIS WITH CONTRAST CLINICAL INFORMATION: Increased abdominal pain COMPARISON: Previous CT scans most recent 06/27/2021 TECHNIQUE: Multidetector volumetric images were obtained from the superior aspect of the liver through the pubic symphysis following administration 85 mL of Omnipaque 350 intravenous contrast. Sagittal and coronal reformatted images were obtained on the technologist's workstation. Oral contrast: Yes This CT examination was performed using dose optimization techniques as appropriate, variously including the following: *Automated exposure control *Adjustment of mA and/or kV according to patient size (this includes techniques or standardized protocols for targeted exams where dose is matched to indication/reason for exam; i.e. extremities or head) *Use of iterative reconstruction technique DLP: 869 mGy-cm FINDINGS: LUNG BASES: There is atelectasis at the right lung base. There is a small left pleural effusion. LIVER, GALLBLADDER, AND BILIARY TREE: Enlarged fatty liver. The gallbladder is been removed. No biliary duct dilatation. PANCREAS: There is a small amount of abnormal air is seen anterior to the pancreas. There is thickening of the bilateral pararenal fascia. The pancreas appears atrophic. These findings are similar to recent exams. SPLEEN: Unremarkable. ADRENAL GLANDS: Unremarkable. KIDNEYS AND URETERS: There is a left internal ureteral stent in satisfactory position. There is no hydronephrosis. There are small bilateral renal stones. There is a right renal cyst. BLADDER: Left internal ureteral stent otherwise unremarkable exam GASTROINTESTINAL TRACT: There is a small amount of extraluminal air is seen posterior to the stomach and anterior to the pancreas. This appears unchanged from 06/27/2021 exam. There is some wall thickening of the posterior stomach and tethering of the posterior wall of the stomach and it is uncertain whether this could be the origin of the extraluminal air. There is mild wall thickening of the splenic flexure and left colon and some stranding of the surrounding fat questionable for colitis. It is uncertain whether this could represent the source of extraluminal air. This is similar to yesterday's exam as well.. There may also be some fat stranding and small amount of fluid seen in the duodenum adjacent to the right anterior pararenal fascia. This is similar appearing to yesterday's exam. ABDOMINAL WALL: Diastasis of the rectus muscles and bulging of abdominal contents to the skin surface similar to yesterday's exam. There is a small amount of fluid seen superiorly. LYMPH NODES: Normal. VASCULAR: IVC filter. Mild atherosclerotic disease. Normal caliber abdominal aorta. PELVIC VISCERA: IUD in the uterus that appears unchanged. This may be low with top of the IUD 3 cm from the top of the fundus of the uterus. Adnexa are unremarkable. OSSEOUS STRUCTURES: Postsurgical changes at L4-L5. CT/CT abdomen pelvis w con IMPRESSION: Stable small amount of air posterior to the stomach and anterior to the pancreas. Etiology of this area is uncertain. Possibilities are arising from the posterior wall of the stomach and splenic flexure. Wall thickening of the splenic flexure and left colon suggestive of colitis. Atrophic-appearing pancreas. Small amount of fluid and thickening at the bilateral anterior pararenal fascia similar to previous exam. Diastasis of the rectus muscles and bulging of the abdominal contents to the skin surface similar to previous exams. Enlarged fatty liver. Bilateral small renal stones. Left internal ureteral stent in satisfactory position. Right renal cyst. Fleischner guidelines were followed.
--- NOTE | ~2021-06-26 | CT_ITS ---
EXAMINATION: CT ABDOMEN AND PELVIS WITH CONTRAST CLINICAL INFORMATION: Diffuse abdominal pain COMPARISON: 06.24.2021 TECHNIQUE: Multidetector volumetric images were obtained from the superior aspect of the liver through the pubic symphysis following administration 85 mL of Omnipaque 350 intravenous contrast. Sagittal and coronal reformatted images were obtained on the technologist's workstation. Oral contrast: No This CT examination was performed using dose optimization techniques as appropriate, variously including the following: *Automated exposure control *Adjustment of mA and/or kV according to patient size (this includes techniques or standardized protocols for targeted exams where dose is matched to indication/reason for exam; i.e. extremities or head) *Use of iterative reconstruction technique DLP: 910 mGy-cm FINDINGS: LUNG BASES: Mild cardiomegaly. Trace bilateral pleural effusions and accompanying atelectasis. LIVER, GALLBLADDER, AND BILIARY TREE: Mild hepatomegaly. Diffuse hepatic steatosis. No focal liver lesions. No intra or extrahepatic biliary dilatation. Cholecystectomy. PANCREAS AND GASTROINTESTINAL TRACT: The pancreas is atrophic and shows chronic peripancreatic fat stranding likely related to previous episodes of pancreatitis. This scarring results in distortion of the adjacent hollow viscera including the posterior stomach, splenic flexure and third and fourth portions of the duodenum. In the left upper quadrant, there are a few locules of extraluminal gas within this scar tissue, favored to originate from the splenic flexure/proximal descending colon (see palacios images). Remainder of the gastrointestinal tract is unremarkable. SPLEEN: Unremarkable. ADRENAL GLANDS: Unremarkable. KIDNEYS AND URETERS: The kidneys are normal in size, shape, and attenuation. Left nephroureteral stent redemonstrated. Benign cyst in the right kidney requires no further follow-up. No hydronephrosis, hydroureter, or calculi seen. No perinephric stranding. BLADDER: Unremarkable. ABDOMINAL WALL: Diastases of the rectus abdominis. LYMPH NODES: Normal. VASCULAR: Unremarkable. PELVIC VISCERA: Unremarkable. OSSEOUS STRUCTURES: No acute or suspicious osseous abnormalities. Spinal fusion at L4-L5. CT/CT abdomen pelvis w con IMPRESSION: * Interval development of small pockets of extraluminal gas in the left upper quadrant, centered within the region of scarring involving the pancreas, related to chronic pancreatitis, which tethers the posterior stomach, splenic flexure and third/fourth portions of the duodenum. The extraluminal gas appears to originate from the medial border of the splenic flexure/proximal descending colon. No drainable collection. * Hepatic steatosis.
--- NOTE | 2021-06-26 21:20 | ED_ITS ---
HPI - Abdominal Pain General Chief Complaint: Abdominal Pain Stated Complaint: Abd pain Time Seen by Provider: 06/26/21 20:41 Source: patient History of Present Illness HPI narrative: 50-year-old female with history of asthma, diabetes and history blood clot for which she is on Eliquis who arrives with complaints of worsening lower abdominal pain for 3 days associated with nausea, vomiting, mild diarrhea that is nonbloody in nature and states she is still passing gas and denies any urinary pain/ burning / frequency. Patient does states that she was recently treated for UTI and kidney infection and otherwise denies shortness of breath/chest pain / palpitations but states that she has had subjective fevers, chills. Related Data Home Medications Medication Instructions Recorded Confirmed albuterol sulfate 2.5 mg/0.5 mL 2.5 mg INHALATION Q4H PRN 06/11/21 06/11/21 solution for nebulization apixaban 5 mg tablet (Eliquis) 5 mg PO BID 06/11/21 06/11/21 atorvastatin 10 mg tablet 1 tab PO BEDTIME 06/11/21 06/11/21 clonazepam 1 mg tablet 1 tab PO BID PRN 06/11/21 06/11/21 furosemide 40 mg tablet 1 tab PO BID 06/11/21 06/11/21 glipizide 5 mg tablet 1 tab PO BID 06/11/21 06/11/21 lurasidone 40 mg tablet (Latuda) 1 tab PO BEDTIME 06/11/21 06/11/21 metformin 500 mg tablet,extended 2 tab PO BID 06/11/21 06/11/21 release 24 hr oxcarbazepine 300 mg tablet 1 tab PO BID 06/11/21 06/11/21 trazodone 100 mg tablet 1 tab PO BEDTIME PRN 06/11/21 06/11/21 escitalopram oxalate 20 mg tablet 1 tab PO DAILY 06/26/21 06/26/21 fluticasone 250 mcg-salmeterol 50 1 puff INHALATION Q12H 06/26/21 06/26/21 mcg/dose blistr powdr for inhalation (Advair Diskus) promethazine 25 mg tablet 1 tab PO Q8H PRN 06/26/21 06/26/21 Previous Rx's Medication Instructions Recorded albuterol sulfate 90 mcg/actuation 2 puff INHALATION Q4-6H PRN #8.5 g 06/01/20 aerosol inhaler sulfamethoxazole 800 1 tab PO BID #20 tab 06/24/21 mg-trimethoprim 160 mg tablet (Bactrim DS) Allergies Allergy/AdvReac Type Severity Reaction Status Date / Time pantoprazole Allergy Unknown Verified 06/11/21 15:17 Review of Systems Review of Systems Pertinent positives and negatives as stated in HPI 10 point review of systems is otherwise negative. PMFSH Past Medical History Source: nursing notes reviewed Medical History Asthma Bipolar 1 disorder Diabetes Kidney stones Substance abuse Takotsubo cardiomyopathy UTI (urinary tract infection) Wound drainage Surgical History H/O exploratory laparotomy S/P cholecystectomy S/P ureteral stent placement Social History Social History Household Members: Spouse Housing: Apartment Do you presently have visiting nurse or other home services: Yes (visiting nurses, pt/ot) Alcohol intake: never Patient Tobacco Use Status: Never used Tobacco Advance Directives: No service: No Current occupational status: disabled Physical Exam ED Vital Signs: Vital Signs - 24 hr 06/26/21 20:13 06/26/21 22:54 06/26/21 23:06 Temperature 97.4 F Pulse Rate 104 H 101 H 101 H Respiratory Rate 22 H 20 16 Blood Pressure 144/87 H 121/55 L Pulse Oximetry 95 94 06/26/21 23:48 06/26/21 23:50 06/26/21 23:51 Temperature 98.8 F Pulse Rate 105 H Respiratory Rate 22 H 24 H Blood Pressure 110/71 Pulse Oximetry 94 06/26/21 23:53 06/26/21 23:59 Temperature Pulse Rate 102 H 100 Respiratory Rate 24 H 20 Blood Pressure 118/66 118/66 Pulse Oximetry 94 93 BMI result Body Mass Index 36.3 VITAL SIGNS: Reviewed. GENERAL: Well developed, well nourished, in no acute distress. HEAD: Normocephalic/atraumatic EYES: PERRLA, EOMI EARS: Ext canals without abnormality OROPHARYNX: no oral lesions noted, posterior pharynx clear LUNGS: Normal breath sounds , no tachypnea, trach is patent and in place on anterior neck, no cough/wheeze/ rhonchi /rales. SpO2<95> CARDIOVASCULAR: Regular rate and rhythm without noted murmurs, no JVD or lower extremity edema. ABDOMEN: Soft, Diffusely tender without rebound, non-distended with bowel sounds . MUSCULOSKELETAL: No tenderness, deformities, or effusions noted on gross inspection. EXTREMITIES: No cyanosis, clubbing or edema. SKIN: Inspection of the skin reveals no rashes NEUROLOGIC: Alert and oriented x 4. Strength and sensation to light touch were grossly intact x 4, has baseline tremor. Course Course Course Narrative: 2119: I suspect infection 50-year-old female with history and clinical presentation suggestive of possible diverticulitis, SBO, perforation, renal colic, UTI. Review of all investigations consistent with questionable small amount air within the abdomen, this was discussed with Surgical Services who accepts admission in recommend serial abdominal exams. All results were discussed with patient at bedside. MDM - Abdominal Pain Lab Data Result diagrams: 06/26/21 21:24 06/26/21 21:24 Labs: Lab Results 06/26/21 06/26/21 06/26/21 Range/Units 21:24 21:24 21:24 WBC 6.6 (4.8-10.8) X10*3/uL RBC 3.55 L (4.20-5.50) X10*6/uL Hgb 9.9 L (12.0-16.0) g/dl Hct 30.7 L (37.0-47.0) % MCV 86.5 (80.0-98.0) fL MCH 27.9 (27.0-33.0) pg MCHC 32.2 (31.0-35.0) g/dl RDW 15.2 (11.0-16.0) % Plt Count 434 H (160-400) X10*3/uL MPV 9.6 (9.4-12.3) fL Immature Gran % (Auto) 0.3 (0.0-0.4) % Neut % (Auto) 74.8 H (45-73) % Lymph % (Auto) 11.7 L (20-40) % [place] % (Auto) 8.2 (2-11) % Eos % (Auto) 4.2 H (0-4) % Baso % (Auto) 0.8 (0-2) % Lymph # (Auto) 0.8 L (1.2-4.9) X10*3/uL [place] # (Auto) 0.5 (0.1-1.2) X10*3/uL Eos # (Auto) 0.3 (0.0-0.4) X10*3/uL Baso # (Auto) 0.1 (0.0-0.2) X10*3/uL Abs Immat Gran (auto) 0.02 (0.00-0.03) X10*3/uL Absolute Neuts (auto) 4.9 (2.0-8.3) x10*3/uL Absolute Nucleated RBC 0.000 (0.0-0.012) X10*3/uL Nucleated RBC % (auto) 0.0 (0.0-0.2) /100WBC PT (9.9-13.0) SEC INR (0.9-1.1) Sodium 133 L (135-145) mmol/L Potassium 4.5 (3.3-5.1) mmol/L Chloride 101 (96-108) mmol/L Carbon Dioxide 23 (22-29) mmol/L Anion Gap 14 (12-20) BUN 6 L (9-16) mg/dL Creatinine 0.92 (0.5-1.4) mg/dL Estim Creat Clear Calc 78.4 Estimated GFR > 60 Random Glucose 136 H (60-115) mg/dL Lactic Acid 2.0 (0.5-2.0) mmol/L Calcium 8.5 (8.4-10.2) mg/dL Total Bilirubin 0.4 (0.0-1.0) mg/dL AST 51 H (5-31) U/L ALT 25 (0-31) U/L Alkaline Phosphatase 435 H (39-117) U/L Total Protein 6.3 L (6.5-8.0) g/dL Albumin 3.0 L (3.5-5.0) g/dL Lipase 12 (8-78) U/L COVID-19 (PRETTY) (Negative) COVID-19 Clin Com Influenza Type A (JOSE) (Negative) Influenza Type B (JOSE) (Negative) Influenza A & B Note 06/26/21 06/26/21 06/26/21 Range/Units 21:24 21:24 21:24 WBC (4.8-10.8) X10*3/uL RBC (4.20-5.50) X10*6/uL Hgb (12.0-16.0) g/dl Hct (37.0-47.0) % MCV (80.0-98.0) fL MCH (27.0-33.0) pg MCHC (31.0-35.0) g/dl RDW (11.0-16.0) % Plt Count (160-400) X10*3/uL MPV (9.4-12.3) fL Immature Gran % (Auto) (0.0-0.4) % Neut % (Auto) (45-73) % Lymph % (Auto) (20-40) % [place] % (Auto) (2-11) % Eos % (Auto) (0-4) % Baso % (Auto) (0-2) % Lymph # (Auto) (1.2-4.9) X10*3/uL [place] # (Auto) (0.1-1.2) X10*3/uL Eos # (Auto) (0.0-0.4) X10*3/uL Baso # (Auto) (0.0-0.2) X10*3/uL Abs Immat Gran (auto) (0.00-0.03) X10*3/uL Absolute Neuts (auto) (2.0-8.3) x10*3/uL Absolute Nucleated RBC (0.0-0.012) X10*3/uL Nucleated RBC % (auto) (0.0-0.2) /100WBC PT 15.1 H (9.9-13.0) SEC INR 1.3 H (0.9-1.1) Sodium (135-145) mmol/L Potassium (3.3-5.1) mmol/L Chloride (96-108) mmol/L Carbon Dioxide (22-29) mmol/L Anion Gap (12-20) BUN (9-16) mg/dL Creatinine (0.5-1.4) mg/dL Estim Creat Clear Calc Estimated GFR Random Glucose (60-115) mg/dL Lactic Acid (0.5-2.0) mmol/L Calcium (8.4-10.2) mg/dL Total Bilirubin (0.0-1.0) mg/dL AST (5-31) U/L ALT (0-31) U/L Alkaline Phosphatase (39-117) U/L Total Protein (6.5-8.0) g/dL Albumin (3.5-5.0) g/dL Lipase (8-78) U/L COVID-19 (PRETTY) Negative (Negative) COVID-19 Clin Com See Note Influenza Type A (JOSE) Negative (Negative) Influenza Type B (JOSE) Negative (Negative) Influenza A & B Note See Note Discharge Plan Discharge Clinical Impression: Abdominal pain, Free intraperitoneal air Patient Disposition: Admitted As Inpatient Prescriptions: No Action albuterol sulfate 90 mcg/actuation HFA aerosol inhaler 2 puff inhalation Q4-6H PRN (Reason: shortness of breath or wheezing) Qty: 8.5 0RF sulfamethoxazole-trimethoprim [Bactrim DS] 800-160 mg tablet 1 tab PO BID Qty: 20 0RF fluticasone propion-salmeterol [Advair Diskus] 250-50 mcg/dose blister with device 1 puff inhalation Q12H 0RF promethazine 25 mg tablet 1 tab PO Q8H PRN (Reason: Nausea) 0RF escitalopram oxalate 20 mg tablet 1 tab PO DAILY 0RF furosemide 40 mg tablet 1 tab PO BID 0RF atorvastatin 10 mg tablet 1 tab PO BEDTIME 0RF clonazepam 1 mg tablet 1 tab PO BID PRN (Reason: Anxiety) 0RF oxcarbazepine 300 mg tablet 1 tab PO BID 0RF trazodone 100 mg tablet 1 tab PO BEDTIME PRN (Reason: Sleep) 0RF metformin 500 mg tablet extended release 24 hr 2 tab PO BID 0RF glipizide 5 mg tablet 1 tab PO BID 0RF Latuda 40 mg tablet 1 tab PO BEDTIME 0RF Eliquis 5 mg tablet 5 mg PO BID 0RF albuterol sulfate 2.5 mg/0.5 mL solution for nebulization 2.5 mg inhalation Q4H PRN (Reason: shortness of breath or wheezing) 0RF
[2021-06-26 21:32] LABS: MANUAL DIFF FLAG NO
[2021-06-26 21:33] LABS: Basophils Absolute Auto 0.1 X10*3/uL (0.0-0.2); Basophils Percent Auto 0.8 % (0-2); Eosinophils Absolute Auto 0.3 X10*3/uL (0.0-0.4); Eosinophils Percent Auto 4.2 % (0-4); Hematocrit 30.7 % (37.0-47.0); Hemoglobin 9.9 g/dl (12.0-16.0); Imm Gran Abs Auto 0.02 X10*3/uL (0.00-0.03); Imm Gran Pct Auto 0.3 % (0.0-0.4); Lymphocytes Absolute Auto 0.8 X10*3/uL (1.2-4.9); Lymphocytes Percent Auto 11.7 % (20-40); Mean Corpuscular HGB Conc 32.2 g/dl (31.0-35.0); Mean Corpuscular Hemoglobin 27.9 pg (27.0-33.0); Mean Corpuscular Volume 86.5 fL (80.0-98.0); Mean Platelet Volume 9.6 fL (9.4-12.3); Monocytes Absolute Auto 0.5 X10*3/uL (0.1-1.2); Monocytes Percent Auto 8.2 % (2-11); Neutrophils Absolute Auto 4.9 x10*3/uL (2.0-8.3); Neutrophils Percent Auto 74.8 % (45-73); Platelet Count 434 X10*3/uL (160-400); Red Blood Count 3.55 X10*6/uL (4.20-5.50); Red Cell Distribution Width 15.2 % (11.0-16.0); White Blood Count 6.6 X10*3/uL (4.8-10.8)
[2021-06-26 21:39] LABS: INTERNATIONAL NORM RATIO 1.3 (0.9-1.1); Prothrombin Time 15.1 SEC (9.9-13.0)
[2021-06-26 21:53] LABS: Alanine Aminotransferase 25 U/L (0-31); Alkaline Phosphatase 435 U/L (39-117); Anion Gap 14 (12-20); Aspartate Amino Transferase 51 U/L (5-31); Bilirubin Total 0.4 mg/dL (0.0-1.0); Blood Urea Nitrogen 6 mg/dL (9-16); Calcium 8.5 mg/dL (8.4-10.2); Carbon Dioxide 23 mmol/L (22-29); Chloride 101 mmol/L (96-108); Creatinine Clr Calc Pharmacy 78.4; Estimated Glomerular Filt Rate > 60; Glucose Random 136 mg/dL (60-115); Lipase 12 U/L (8-78); Potassium 4.5 mmol/L (3.3-5.1); Sodium 133 mmol/L (135-145); Total Protein 6.3 g/dL (6.5-8.0)
[2021-06-26 21:55] LABS: COVID-19 Test Negative (Negative); IDNOW Serial# 55D5AD1C; Influenza A Negative (Negative); Influenza B2 Negative (Negative)
[2021-06-26] MEDS: fentaNYL citrate/PF 100 MCG/2 ML VIAL 25 MCG IVPUSH (22:33)
[2021-06-26] MEDS: diphenhydrAMINE HCL 25 MG TABLET PO (22:33)
[2021-06-26] MEDS: Piperacillin Sodium/Tazobactam 3.375 GM in 0.9 % Sodium Chloride 50 ML IV (22:46)
--- NOTE | 2021-06-26 22:55 | PC.NURSE ---
pt requesting neb treatment, breath sounds assessed, inspiratory wheezing CODI, LLL, diminished BS on RUL, RLL
--- NOTE | 2021-06-26 22:56 | PC.NURSE ---
pt states fentanyl had no effect. asking for more pain medication. MD notified
[2021-06-26] MEDS: Albuterol Sulfate (0.083%) 2.5 MG/3 ML VIAL.NEB INHALE (23:05)
[2021-06-26] MEDS: HYDROmorphone HCl 0.5 MG/0.5 ML SYRINGE 0.25 MG IVPUSH (23:48)
[2021-06-27] VITALS (14 sets, daily range): BP systolic 109–142; BP diastolic 55–79; PULSE 85–104; RESP 16–26; TEMP 36.3–37.4; O2SAT 92–99
[2021-06-27] MEDS: iohexoL 350 MG/ML 100 ML INFUS..BTL IV (00:51)
[2021-06-27] MEDS: HYDROmorphone HCl 0.5 MG/0.5 ML SYRINGE 0.25 MG IVPUSH (02:03)
[2021-06-27] MEDS: 0.9 % Sodium Chloride 1,000 ML 999 ML IV (02:03)
--- NOTE | 2021-06-27 02:16 | ECG_ITS ---
Test Reason : SOB Blood Pressure : / mmHG Vent. Rate : 089 BPM Atrial Rate : 089 BPM P-R Int : 158 ms QRS Dur : 084 ms QT Int : 392 ms P-R-T Axes : 036 004 041 degrees QTc Int : 476 ms Normal sinus rhythm Low voltage QRS Cannot rule out Anterior infarct (cited on or before 11-JUN-2021) Abnormal ECG When compared with ECG of 11-JUN-2021 16:18, No significant change was found Referred By: Marisela Kunz Electronically Signed By:Skip Ledesma
[2021-06-27 02:34] LABS: Magnesium 1.5 mg/dL (1.6-2.6)
[2021-06-27] MEDS: Magnesium Sulfate/H2O 2 GM/50 ML PIGGYBACK IV (02:53)
--- NOTE | 2021-06-27 03:24 | PC.NURSE ---
abd surgial site consisting of skin grafts from pts legs, to periumbilical region. scant amount of yellow purlent discharge present on brief/skin
[2021-06-27] MEDS: HYDROmorphone HCl 1 MG/ML SYRINGE 0.5 MG IVPUSH ×7 (03:32→23:46)
[2021-06-27 03:40] LABS: Appearance Urine CLEAR; Color Urine YELLOW; Glucose Urine UA NEG (NEG); Leukocyte Esterase Urine 1+ (NEG); Nitrite Urine NEG (NEG); PH 7.5 (5.0-8.0); UACC Culture Trigger YES; Urine Blood 2+ (NEG); Urine Ketones NEG (NEG); Urine Protein NEG (NEG-TRACE)
[2021-06-27 03:47] LABS: Bacteria Urine 1+ /LPF; Squamous Epithelial Cell Urine 1+ /LPF
[2021-06-27 03:55] LABS: Glucose, Whole Blood 113 mg/dL (60-115)
[2021-06-27] MEDS: Piperacillin Sodium/Tazobactam 3.375 GM in 0.9 % Sodium Chloride 50 ML IV ×4 (04:24→22:15)
--- NOTE | 2021-06-27 05:24 | PC.NURSE ---
Patient transferred with multiple IV fluids/meds. Magnesium was infused completely on arrival to S3, and zosyn and IVF bolus both infusing by gravity. Patient was set up with trache mask at 35%. MD to order requested nebulizer. Patient comfortable.
[2021-06-27] MEDS: oxyCODONE HCl Immed Release 5 MG TABLET PO (05:27)
--- NOTE | 2021-06-27 05:50 | P.HPGS_ITS ---
History of Present Illness History of Present Illness Date of Service: 06/27/21 Chief complaint: Abdominal pain, possible colonic microperforation Narrative: Anna Marie Black is a 50 year old female presenting to the emergency department with complaints of diffuse abdominal pain. She has a history of asthma, diabetes, and blood clots, for which she is on Eliquis. She has a complicated surgical history after being found in respiratory arreat due to asthma in December 2020. She was on a vent for several weeks at [facility] and developed necrotizing pancreatitis, requiring multiple surgeries involving debridement and cholecystectomy. 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 She reports a graft placement after which she reports persistent abdominal pain. She reports a three day history of increased abdominal pain with nausea, vomiting, non-bloody diarrhea, subjective fever, and chills. She is being treated for a UTI and kidney infection, and recently underwent a cystoscopy with stent placement earlier this month. She presented to the ED and was found to have abdominal tenderness diffusely without peritoneal signs. WBC and lactate were normal. CT of the abdomen and pelvis revealed Interval development of small pockets of extraluminal gas in the left upper quadrant, centered within the region of scarring involving the pancreas, related to chronic pancreatitis, which tethers the posterior stomach, splenic flexure and third/fourth portions of the duodenum. The extraluminal gas appears to originate from the medial border of the splenic flexure/proximal descending colon. No drainable collection. This morning she reports improvement in her abdominal pain located mainly in the right lower and left lower quadrants. She denies any abdominal pain in the left upper quadrant. She is thirsty would like clear liquids. She normally receives physical therapy and occupational therapy and reports that she is improving in her overall strength. She is being followed at [facility] for her tracheostomy care. She was recently downsized to a smaller trach. She is able to talk around the trach. Review of Systems Review of Systems: Yes all other systems are reviewed and are negative Constitutional: Constitutional: Reports chills, Reports fever(s), Denies headache(s) and Reports poor appetite ENT: Denies dizziness and Denies headache(s) Cardiovascular: Cardiovascular: Denies chest pain, Denies rapid heart rate, Denies palpitations and Denies slow heart rate Respiratory: Respiratory: Denies chest congestion, Denies cough, Denies pain on inspiration and Reports wheezing Comments: Tracheostomy in place Gastrointestinal: Gastrointestinal: Reports abdominal pain, Denies bloating, Denies change in stool character, Denies constipation, Reports diarrhea, Reports nausea, Reports vomiting and Denies hematemesis Musculoskeletal: Musculoskeletal: Reports abnormal gait, Denies back pain, De nies arthralgias, Denies joint swelling and Denies numbness Integumentary/Breasts: Skin/Breast: Denies change in pigmentation, Denies erythema and Denies rash Neurologic: Reports abnormal gait, Denies dizziness, Denies headache(s) and Denies numbness Psychiatric: Psychiatric: Denies anxiety and Denies depression Endocrine: Endocrine: Denies palpitations Hematologic/Lymphatic: Hematologic/Lymphatic: Denies easy bleeding, Denies easy bruising and Denies lymphadenopathy Allergic/Immunologic: Allergic/Immunologic: Reports wheezing PMFSH Past Medical History Medical History Asthma Bipolar 1 disorder Diabetes Kidney stones Substance abuse Takotsubo cardiomyopathy UTI (urinary tract infection) Wound drainage Surgical History Surgical History H/O exploratory laparotomy S/P cholecystectomy S/P ureteral stent placement Social History Social History Household Members: Spouse Housing: Apartment Do you presently have visiting nurse or other home services: Yes (visiting nurses, pt/ot) Alcohol intake: never Patient Tobacco Use Status: Never used Tobacco Advance Directives: No service: No Current occupational status: disabled Meds Allergies Allergy/AdvReac Type Severity Reaction Status Date / Time pantoprazole Allergy Unknown Verified 06/11/21 15:17 Active Medications: Current Medications Acetaminophen (Acetaminophen 325 Mg Tablet) 650 mg PO Q6H PRN PRN Reason: Pain, Mild (Pain Scale 1-3) Hydromorphone HCl (Hydromorphone Hcl 1 Mg/Ml Syringe) 0.5 mg IVPUSH Q3H PRN; Protocol PRN Reason: Pain, Severe (Pain Scale 7-10) Last Admin: 06/27/21 03:32 Dose: 0.5 mg Documented by: Dextrose/Lactated Ringer's ([email or web address]) 1,000 mls @ 125 mls/hr IVCONT .Q8H RILEY Piperacillin Sod/Tazobactam (Sod 3.375 gm/ Sodium Chloride) 50 mls @ 100 mls/hr IV Q6H RILEY Last Infusion: 06/27/21 05:07 Dose: Infused Documented by: Melatonin (Melatonin 3 Mg Tablet) 3 mg PO BEDTIME PRN PRN Reason: Insomnia Ondansetron HCl (Ondansetron Hcl 4 Mg/2 Ml Vial) 4 mg IVPUSH Q8H PRN PRN Reason: Nausea and Vomiting Oxycodone HCl (Oxycodone Hcl Immed Release 5 Mg Tablet) 5 mg PO Q6H PRN PRN Reason: Pain, Moderate (Pain Scale 4-6 Last Admin: 06/27/21 05:27 Dose: 5 mg Documented by: Pharmacy Consult (Consult Rx Perform Med Rec) 1 each MISCELLANE ONCE PRN PRN Reason: Consult order Home Medications Medication Instructions Recorded Confirmed Last Taken Type albuterol sulfate 2.5 mg/0.5 mL 2.5 mg INHALATION Q4H PRN 06/11/21 06/11/21 Unknown History solution for nebulization apixaban 5 mg tablet (Eliquis) 5 mg PO BID 06/11/21 06/11/21 06/11/21 History atorvastatin 10 mg tablet 1 tab PO BEDTIME 06/11/21 06/11/21 06/10/21 History clonazepam 1 mg tablet 1 tab PO BID PRN 06/11/21 06/11/21 06/11/21 History furosemide 40 mg tablet 1 tab PO BID 06/11/21 06/11/21 06/11/21 History glipizide 5 mg tablet 1 tab PO BIDAC 06/11/21 06/11/21 06/11/21 History lurasidone 40 mg tablet (Latuda) 1 tab PO BEDTIME 06/11/21 06/11/21 06/10/21 History metformin 500 mg tablet,extended 2 tab PO BIDAC 06/11/21 06/11/21 06/11/21 History release 24 hr oxcarbazepine 300 mg tablet 1 tab PO BID 06/11/21 06/11/21 06/11/21 History trazodone 100 mg tablet 1 tab PO BEDTIME PRN 06/11/21 06/11/21 06/10/21 History escitalopram oxalate 20 mg tablet 1 tab PO DAILY 06/26/21 06/26/21 Unknown History fluticasone 250 mcg-salmeterol 50 1 puff INHALATION Q12H 06/26/21 06/26/21 Unkno wn History mcg/dose blistr powdr for inhalation (Advair Diskus) promethazine 25 mg tablet 1 tab PO Q8H PRN 06/26/21 06/26/21 Unknown History fluticasone propionate 50 1 spray INTRANASAL DAILY 06/27/21 Unknown History mcg/actuation nasal spray,suspension Physical Exam Vital Signs: Vital Signs: Last Vital Signs Temp 99 F 06/27/21 04:51 Pulse 88 06/27/21 04:51 Resp 20 06/27/21 04:51 BP 134/64 06/27/21 04:51 Pulse Ox 92 06/27/21 04:51 BMI result Body Mass Index 36.3 Const: General: cooperative, comfortable and well developed Nutritional Appearance: well nourished Orientation/consciousness: patient oriented x3 Eyes: Sclerae: sclerae normal EOM: EOMs intact bilaterally Neck: Other: Tracheostomy in place, with trach mask Neck: Yes normal visual inspection Resp: Effort & Inspection: normal respiratory effort, no cough, no respiratory distress and no stridor Cardio: Jugular venous distension: no JVD GI: Palpation (GI): Soft to palpation, Tenderness to palpation present (GI), no guarding and not rigid Abdomen image: 1. Large abdominal skin graft anterior abdominal wall 2. Area of mild tenderness to deep palpation without rebound, guarding, or rigidity. Skin: General skin exam: dry skin Rashes: no rashes Neuro: General: patient oriented x3 and no focal motor deficits Extrem: General: Yes full ROM and Yes no clubbing, cyanosis or edema Psych: Appearance: grossly normal Results Results Labs: Short CBC 06/26/21 Range/Units 21:24 WBC 6.6 (4.8-10.8) X10*3/uL Hgb 9.9 L (12.0-16.0) g/dl Hct 30.7 L (37.0-47.0) % Plt Count 434 H (160-400) X10*3/uL BMP 06/26/21 21:24 Sodium 133 L Potassium 4.5 Chloride 101 Carbon Dioxide 23 BUN 6 L Creatinine 0.92 Calcium 8.5 Liver Function 06/26/21 Range/Units 21:24 Total Bilirubin 0.4 (0.0-1.0) mg/dL AST 51 H (5-31) U/L ALT 25 (0-31) U/L Alkaline Phosphatase 435 H (39-117) U/L Albumin 3.0 L (3.5-5.0) g/dL Urine 06/27/21 Range/Units 03:29 Urine Color YELLOW Urine Appearance CLEAR Urine pH 7.5 (5.0-8.0) Ur Specific [place] 1.010 (1.005-1.025) Urine Protein NEG (NEG-TRACE) MG/DL Urine Glucose (UA) NEG (NEG) MG/DL Assessment and Plan (1) Abdominal pain: Status: Acute (2) Free intraperitoneal air: Status: Acute Plan 50-year-old female patient with a complicated past medical history with numerous previous abdominal surgeries found to have increased abdominal pain mainly in the lower quadrants. Laboratories are normal as is the lactate level. On examination the patient is mildly tender to deep palpation in the lower quadrants with no rebound, guarding, or rigidity. CT of the abdomen and pelvis reveals several pockets of air around the pancreas, duodenum, and splenic flexure colon. Findings seem to be related to her prior history of necrotizing pancreatitis and fistulas. Patient is abdominal exam is non peritoneal. Will continue to observe patient with IV antibiotic and monitor clinical examination. Repeat CT in 1-2 days may be necessary if symptoms do not improved. The plan was discussed in detail with the patient and she expressed her understanding and agrees with the plan. Hospitalist consultation requested for medical management. Quality Stroke Does the patient have a stroke diagnosis?: No VTE Prior VTE?: Yes VTE Risk Level:: Surgical - high VTE Device Contraindication: N/A - Device Ordered VTE Drug Contraindication: Treatment Not Indicated Procedures Date of Service Date of Service: 06/27/21
[2021-06-27 06:27] LABS: MANUAL DIFF FLAG NO
[2021-06-27 06:34] LABS: Eosinophils Absolute Auto 0.2 X10*3/uL (0.0-0.4); Eosinophils Percent Auto 5.3 % (0-4); Hematocrit 29.8 % (37.0-47.0); Hemoglobin 9.4 g/dl (12.0-16.0); Imm Gran Abs Auto 0.01 X10*3/uL (0.00-0.03); Imm Gran Pct Auto 0.3 % (0.0-0.4); Lymphocytes Absolute Auto 0.8 X10*3/uL (1.2-4.9); Lymphocytes Percent Auto 20.1 % (20-40); Mean Corpuscular HGB Conc 31.5 g/dl (31.0-35.0); Mean Corpuscular Hemoglobin 27.7 pg (27.0-33.0); Mean Corpuscular Volume 87.9 fL (80.0-98.0); Mean Platelet Volume 9.8 fL (9.4-12.3); Monocytes Absolute Auto 0.4 X10*3/uL (0.1-1.2); Monocytes Percent Auto 9.8 % (2-11); Neutrophils Absolute Auto 2.5 x10*3/uL (2.0-8.3); Neutrophils Percent Auto 63.5 % (45-73); Platelet Count 434 X10*3/uL (160-400); Red Blood Count 3.39 X10*6/uL (4.20-5.50); Red Cell Distribution Width 15.4 % (11.0-16.0)
[2021-06-27] MEDS: Dextrose 5 % and Lactated Ring 1,000 ML 125 ML IVCONT ×2 (06:40→16:27)
[2021-06-27 06:48] LABS: Anion Gap 14 (12-20); Blood Urea Nitrogen 6 mg/dL (9-16); Calcium 8.3 mg/dL (8.4-10.2); Carbon Dioxide 24 mmol/L (22-29); Chloride 102 mmol/L (96-108); Creatinine Clr Calc Pharmacy 76.7; Estimated Glomerular Filt Rate > 60; Glucose Random 107 mg/dL (60-115); Potassium 5.1 mmol/L (3.3-5.1); Sodium 135 mmol/L (135-145)
[2021-06-27] MEDS: ondansetron HCL 4 MG/2 ML VIAL IVPUSH ×2 (09:30→20:33)
--- NOTE | 2021-06-27 11:01 | P.CONHOSP_ITS ---
History of Present Illness Data of Consult Service Date: 06/27/21 Primary Care Provider: Angie Wing MD [facility] Reason for consult: Medical management 50 year old women admitted by general surgery for abdominal pain with recent admission for ureteral stent. She has a complicated surgical history after being found in respiratory arreat due to asthma in December 2020.? She was on a vent for several weeks at [facility] and developed necrotizing pancreatitis, requiring multiple surgeries involving debridement and cholecystectomy.? 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 She reports a graft placement after which she reports persistent abdominal pain.?She also had some nausea, vomiting and diarrhea with subjective fevers at home. No surgical intervention required at this time. No fever or leukocytosis noted. Review of Systems Review of Systems: Denies any recent fever chills or decrease in appetite respiratory denies any shortness of breath coverage production cardiovascular is adjustment of any PND or edema gastrointestinal denies any dysphagia abdominal pain nausea vomiting or diarr hea genitourinary denies any dysuria frequency or hematuria musculoskeletal denies any joint pain or swelling neuropsych denies any weakness or seizures all other systems reviewed are negative [facility] Medical History Asthma Bipolar 1 disorder Diabetes Kidney stones Substance abuse Takotsubo cardiomyopathy UTI (urinary tract infection) Wound drainage Surgical History H/O exploratory laparotomy S/P cholecystectomy S/P ureteral stent placement Social History Household Members: Spouse Housing: Apartment Do you presently have visiting nurse or other home services: Yes (visiting francesco boo, pt/ot) Alcohol intake: never Patient Tobacco Use Status: Never used Tobacco Advance Directives: No service: No Current occupational status: disabled Meds Allergies Allergy/AdvReac Type Severity Reaction Status Date / Time pantoprazole Allergy Unknown Verified 06/11/21 15:17 Active Medications: Current Medications Acetaminophen (Acetaminophen 325 Mg Tablet) 650 mg PO Q6H PRN PRN Reason: Pain, Mild (Pain Scale 1-3) Hydromorphone HCl (Hydromorphone Hcl 1 Mg/Ml Syringe) 0.5 mg IVPUSH Q3H PRN; Protocol PRN Reason: Pain, Severe (Pain Scale 7-10) Last Admin: 06/27/21 09:30 Dose: 0.5 mg Documented by: Dextrose/Lactated Ringer's (D5lr) 1,000 mls @ 125 mls/hr IVCONT .Q8H [facility] Last Admin: 06/27/21 06:40 Dose: 125 mls/hr Documented by: Piperacillin Sod/Tazobactam (Sod 3.375 gm/ Sodium Chloride) 50 mls @ 100 mls/hr IV Q6H [facility] Last Admin: 06/27/21 09:21 Dose: 100 mls/hr Documented by: Melatonin (Melatonin 3 Mg Tablet) 3 mg PO BEDTIME PRN PRN Reason: Insomnia Ondansetron HCl (Ondansetron Hcl 4 Mg/2 Ml Vial) 4 mg IVPUSH Q8H PRN PRN Reason: Nausea and Vomiting Last Admin: 06/27/21 09:30 Dose: 4 mg Documented by: Oxycodone HCl (Oxycodone Hcl Immed Release 5 Mg Tablet) 5 mg PO Q6H PRN PRN Reason: Pain, Moderate (Pain Scale 4-6 Last Admin: 06/27/21 05:27 Dose: 5 mg Documented by: Pharmacy Consult (Consult Rx Perform Med Rec) 1 each MISCELLANE ONCE PRN PRN Reason: Consult order Home Medications Medication Instructions Recorded Confirmed Last Taken Type albuterol sulfate 2.5 mg/0.5 mL 2.5 mg INHALATION Q4H PRN 06/11/21 06/27/21 06/26/21 History solution for nebulization apixaban 5 mg tablet (Eliquis) 5 mg PO BID 06/11/21 06/27/21 06/26/21 History atorvastatin 10 mg tablet 1 tab PO BEDTIME 06/11/21 06/27/21 06/26/21 History clonazepam 1 mg tablet 1 tab PO BID PRN 06/11/21 06/27/21 06/26/21 History furosemide 40 mg tablet 1 tab PO DAILY 06/11/21 06/27/21 06/26/21 History glipizide 5 mg tablet 1 tab PO BIDAC 06/11/21 06/27/21 06/26/21 History lurasidone 40 mg tablet (Latuda) 1 tab PO BEDTIME 06/11/21 06/27/21 06/26/21 History metformin 500 mg tablet,extended 2 tab PO BIDAC 06/11/21 06/27/21 06/11/21 History release 24 hr trazodone 100 mg tablet 1 tab PO BEDTIME PRN 06/11/21 06/27/21 06/26/21 History escitalopram oxalate 20 mg tablet 1 tab PO DAILY 06/26/21 06/27/21 06/26/21 History promethazine 25 mg tablet 1 tab PO Q8H PRN 06/26/21 06/27/21 06/26/21 History Physical Exam Vital Signs and Narrative: Vital Signs: Last Vital Signs Temp 97.8 F 06/27/21 07:20 Pulse 85 06/27/21 07:20 Resp 17 06/27/21 07:20 BP 135/79 06/27/21 07:20 Pulse Ox 97 06/27/21 07:20 BMI result Body Mass Index 36.3 Appearing in no acute distress head is normocephalic atraumatic eyes pupils are PERRLA sclera is anicteric mouth throat mucous membranes are intact and moist neck is supple no lymphadenopathy, no JVD noted lung sounds are clear to auscultation heart regular rate rhythm, clear S1, S2 positive bowel sounds, abdomen is soft, lower abd tenderness neuro patient is alert x3, no focal deficits Results Labs CBC and Chem 7: 06/27/21 06:00 06/27/21 06:00 Labs: Laboratory Results - last 24 hr 06/26/21 06/26/21 06/26/21 21:24 21:24 21:24 MCV 86.5 MCH 27.9 MCHC 32.2 RDW 15.2 Plt Count 434 H MPV 9.6 Immature Gran % (Auto) 0.3 Neut % (Auto) 74.8 H Lymph % (Auto) 11.7 L [place] % (Auto) 8.2 Eos % (Auto) 4.2 H Baso % (Auto) 0.8 Lymph # (Auto) 0.8 L [place] # (Auto) 0.5 Eos # (Auto) 0.3 Baso # (Auto) 0.1 Abs Immat Gran (auto) 0.02 Absolute Neuts (auto) 4.9 Absolute Nucleated RBC 0.000 Nucleated RBC % (auto) 0.0 PT INR Anion Gap 14 Estim Creat Clear Calc 78.4 Estimated GFR > 60 POC Glucose Random Glucose 136 H Lactic Acid 2.0 Calcium 8.5 Magnesium 1.5 L Total Bilirubin 0.4 AST 51 H ALT 25 Alkaline Phosphatase 435 H Total Protein 6.3 L Albumin 3.0 L Lipase 12 Urine Color Urine Appearance Urine pH Ur Specific [place] Urine Protein Urine Glucose (UA) Urine Ketones Urine Blood Urine Nitrite Ur Leukocyte Esterase Urine RBC Urine WBC Ur Squamous Epith Cells Urine Bacteria COVID-19 (PRETTY) COVID-19 Clin Com Influenza Type A (JOSE) Influenza Type B (JOSE) Influenza A & B Note 06/26/21 06/26/21 06/26/21 21:24 21:24 21:24 MCV MCH MCHC RDW Plt Count MPV Immature Gran % (Auto) Neut % (Auto) Lymph % (Auto) [place] % (Auto) Eos % (Auto) Baso % (Auto) Lymph # (Auto) [place] # (Auto) Eos # (Auto) Baso # (Auto) Abs Immat Gran (auto) Absolute Neuts (auto) Absolute Nucleated RBC Nucleated RBC % (auto) PT 15.1 H INR 1.3 H Anion Gap Estim Creat Clear Calc Estimated GFR POC Glucose Random Glucose Lactic Acid Calcium Magnesium Total Bilirubin AST ALT Alkaline Phosphatase Total Protein Albumin Lipase Urine Color Urine Appearance Urine pH Ur Specific [place] Urine Protein Urine Glucose (UA) Urine Ketones Urine Blood Urine Nitrite Ur Leukocyte Esterase Urine RBC Urine WBC Ur Squamous Epith Cells Urine Bacteria COVID-19 (PRETTY) Negative COVID-19 Clin Com See Note Influenza Type A (JOSE) Negative Influenza Type B (JOSE) Negative Influenza A & B Note See Note 06/27/21 06/27/21 06/27/21 03:29 03:51 06:00 MCV 87.9 MCH 27.7 MCHC 31.5 RDW 15.4 Plt Count 434 H MPV 9.8 Immature Gran % (Auto) 0.3 Neut % (Auto) 63.5 Lymph % (Auto) 20.1 [place] % (Auto) 9.8 Eos % (Auto) 5.3 H Baso % (Auto) 1.0 Lymph # (Auto) 0.8 L [place] # (Auto) 0.4 Eos # (Auto) 0.2 Baso # (Auto) 0.0 Abs Immat Gran (auto) 0.01 Absolute Neuts (auto) 2.5 Absolute Nucleated RBC 0.000 Nucleated RBC % (auto) 0.0 PT INR Anion Gap Estim Creat Clear Calc Estimated GFR POC Glucose 113 Random Glucose Lactic Acid Calcium Magnesium Total Bilirubin AST ALT Alkaline Phosphatase Total Protein Albumin Lipase Urine Color YELLOW Urine Appearance CLEAR Urine pH 7.5 Ur Specific [place] 1.010 Urine Protein NEG Urine Glucose (UA) NEG Urine Ketones NEG Urine Blood 2+ H Urine Nitrite NEG Ur Leukocyte Esterase 1+ H Urine RBC 10-14 H Urine WBC 1-4 Ur Squamous Epith Cells 1+ Urine Bacteria 1+ COVID-19 (PRETTY) COVID-19 Clin Com Influenza Type A (JOSE) Influenza Type B (JOSE) Influenza A & B Note 06/27/21 06:00 MCV MCH MCHC RDW Plt Count MPV Immature Gran % (Auto) Neut % (Auto) Lymph % (Auto) [place] % (Auto) Eos % (Auto) Baso % (Auto) Lymph # (Auto) [place] # (Auto) Eos # (Auto) Baso # (Auto) Abs Immat Gran (auto) Absolute Neuts (auto) Absolute Nucleated RBC Nucleated RBC % (auto) PT INR Anion Gap 14 Estim Creat Clear Calc 76.7 Estimated GFR > 60 POC Glucose Random Glucose 107 Lactic Acid Calcium 8.3 L Magnesium Total Bilirubin AST ALT Alkaline Phosphatase Total Protein Albumin Lipase Urine Color Urine Appearance Urine pH Ur Specific [place] Urine Protein Urine Glucose (UA) Urine Ketones Urine Blood Urine Nitrite Ur Leukocyte Esterase Urine RBC Urine WBC Ur Squamous Epith Cells Urine Bacteria COVID-19 (PRETTY) COVID-19 Clin Com Influenza Type A (JOSE) Influenza Type B (JOSE) Influenza A & B Note Imaging Radiologist's Impressions: Impressions Abdomen/Pelvis CT 06/27/21 00:45 IMPRESSION: * Interval development of small pockets of extraluminal gas in the left upper quadrant, centered within the region of scarring involving the pancreas, related to chronic pancreatitis, which tethers the posterior stomach, splenic flexure and third/fourth portions of the duodenum. The extraluminal gas appears to originate from the medial border of the splenic flexure/proximal descending colon. No drainable collection. * Hepatic steatosis. Assessment and Plan (1) Abdominal pain: Status: Acute Plan 50 year old women admitted by genera surgery for abdominal pain Abdominal pain nausea, vomiting and diarrhea CT showed several pockets of air around pancreas up to splenic flexure no surgical intervention at this time, continue IV abx and monitoring Repeat CT tomorrow to assess for improvement h/o PE/DVT On Eliquis for AC Diabetes Insulin sliding scale.? Hold home oral hypoglycemic agents (metformin and glipizide) History of tracheal stenosis/tracheomalacia/ asthma s/p tracheostomy Currently breathing comfortably via trach mask. prn and scheduled breathing treatments h/o takotsubo cardiomyopathy EF 25-30% per notes from [facility] on Lasix at baseline, will hold for now given sepsis monitor fluid status closely and resume Lasix ?tomorrow am Mood continue home medications - latuda, oxcarbazepine, trazodone, clonazepam History of multiple abdominal surgeries/cutaneous fistulous: Chronic.? Supportive care.? No new change in her abdominal wall erythema for patient.? Patient has been with general surgery team at [facility]. DVT prophylaxis:? Patient on Eliquis? Code status: Full code Attending: Dr. Doyle
--- NOTE | 2021-06-27 11:43 | PHA.MEDREC ---
Pharmacy Consult ? Medication Reconciliation Pharmacy has completed the medication reconciliation. SPOKE WITH PT. METFORMIN ON HOLD SINCE PT HAD CONTRAST STUDY LAST NIGHT 06/26
[2021-06-27] MEDS: Albuterol Sulfate (0.083%) 2.5 MG/3 ML VIAL.NEB INHALE ×3 (11:45→20:05)
[2021-06-27 11:53] LABS: Glucose, Whole Blood 114 mg/dL (60-115)
--- NOTE | 2021-06-27 14:48 | MHC.CM.PN ---
PT REPORTS SHE LIVES WITH HER AND WHO ASSISTS HER PRN SHE REPORTS SHE IS ACTIVE WITH [employer] [facility] FOR MENTAL HEALTH SERVICES SHE REPORTS SHE HAS A HOSPITAL BED, WHEEL CHAIR, OXYGEN, NEBULIZER, COMMODE, SHOWER CHAIR AND TRACH SUPPLIES SHE REPORTS HER IS HER HCP, COPY REQUESTED PCP: BENIGNO ALVAREZ PT REPORTS SHE IS INTERESTED IN OBTAINING [employer] SERVICES CM INFORMED HER THIS IS SOMETHING HER PCP WOULD INITIATE DC PLAN IS HOME WITH RESUMPTION OF [facility] AND [facility] SERVICES TO TRANSPORT
[2021-06-27 16:14] LABS: Glucose, Whole Blood 126 mg/dL (60-115)
[2021-06-27 20:37] LABS: Glucose, Whole Blood 181 mg/dL (60-115)
[2021-06-27] MEDS: Insulin Lispro 100 UNIT/ML 3 ML VIAL SUBCUT (22:15)
[2021-06-28] VITALS (9 sets, daily range): BP systolic 105–132; BP diastolic 51–78; PULSE 80–111; RESP 15–22; TEMP 36.4–37.3; O2SAT 95–100
[2021-06-28] MEDS: Albuterol Sulfate (0.083%) 2.5 MG/3 ML VIAL.NEB INHALE ×5 (00:36→20:04)
[2021-06-28] MEDS: Piperacillin Sodium/Tazobactam 3.375 GM in 0.9 % Sodium Chloride 50 ML IV ×4 (02:56→20:00)
[2021-06-28] MEDS: Dextrose 5 % and Lactated Ring 1,000 ML 125 ML IVCONT ×2 (02:56→09:45)
[2021-06-28] MEDS: HYDROmorphone HCl 1 MG/ML SYRINGE 0.5 MG IVPUSH ×6 (02:57→19:58)
[2021-06-28 07:51] LABS: Glucose, Whole Blood 144 mg/dL (60-115)
[2021-06-28] MEDS: ondansetron HCL 4 MG/2 ML VIAL IVPUSH ×2 (09:43→18:18)
--- NOTE | 2021-06-28 09:48 | PM.PNGS ---
Subjective Subjective Date of Service: 06/28/21 Interval history: Patient reports abdominal pain is well controlled with current medication. Denies fever or chills. She was able to tolerate the clear liquid diet without nausea or vomiting. Physical Exam Vital Signs: Vital Signs: Last Vital Signs Temp 97.5 F 06/28/21 07:43 Pulse 89 06/28/21 07:43 Resp 15 06/28/21 07:43 BP 114/57 L 06/28/21 07:43 Pulse Ox 100 06/28/21 07:43 BMI result Body Mass Index 36.3 Const: General: cooperative, no acute distress and well developed Neck: Other: Tracheostomy with some mucus. Patient is able to clear with cough. Resp: Other: Breathing comfortably with trach mask GI: Other: Soft, mild tenderness to deep palpation in the lower abdomen. No rebound, guarding, or rigidity. Skin: Other: Warm, dry, no rash Objective Data Active Medications Acetaminophen (Acetaminophen 325 Mg Tablet) 650 mg PO Q6H PRN PRN Reason: Pain, Mild (Pain Scale 1-3) Albuterol Sulfate (Albuterol Sulfate (0.083%) 2.5 Mg/3 Ml Vial.Neb) 2.5 mg INHALE Q4H PRN PRN Reason: shortness of breath Last Admin: 06/28/21 00:36 Dose: 2.5 mg Documented by: PERRY Albuterol Sulfate (Albuterol Sulfate (0.083%) 2.5 Mg/3 Ml Vial.Neb) 2.5 mg INHALE RQ4H WHILE AWAKE [facility] Last Admin: 06/28/21 07:32 Dose: 2.5 mg Documented by: BAYRON Dextrose (Dextrose 50 % 25 Gm/50 Ml Syringe) 25 gm IVPUSH Q15M PRN; Protocol PRN Reason: per Hypoglycemia Standing Ord. Glucose (Glucose Gel 15 Gm Gel..Gram.) 15 gm PO Q15M PRN; Protocol PRN Reason: per Hypoglycemia Standing Ord. Hydromorphone HCl (Hydromorphone Hcl 1 Mg/Ml Syringe) 0.5 mg IVPUSH Q3H PRN; Protocol PRN Reason: Pain, Severe (Pain Scale 7-10) Last Admin: 06/28/21 09:43 Dose: 0.5 mg Documented by: GALO Dextrose/Lactated Ringer's (D5lr) 1,000 mls @ 125 mls/hr IVCONT .Q8H [facility] Last Admin: 06/28/21 02:56 Dose: 125 mls/hr Documented by: DAIANA Piperacillin Sod/Tazobactam (Sod 3.375 gm/ Sodium Chloride) 50 mls @ 100 mls/hr IV Q6H [facility] Last Admin: 06/28/21 09:43 Dose: 100 mls/hr Documented by: GALO Insulin Human Lispro (Insulin Lispro 100 Unit/Ml 3 Ml Vial) 0 unit SUBCUT QIDACHS [facility]; Protocol Last Admin: 06/28/21 09:43 Dose: Not Given Documented by: GALO Non-Admin Reason: No Insulin Coverage Melatonin (Melatonin 3 Mg Tablet) 3 mg PO BEDTIME PRN PRN Reason: Insomnia Ondansetron HCl (Ondansetron Hcl 4 Mg/2 Ml Vial) 4 mg IVPUSH Q8H PRN PRN Reason: Nausea and Vomiting Last Admin: 06/28/21 09:43 Dose: 4 mg Documented by: GALO Oxycodone HCl (Oxycodone Hcl Immed Release 5 Mg Tablet) 5 mg PO Q6H PRN PRN Reason: Pain, Moderate (Pain Scale 4-6 Last Admin: 06/27/21 05:27 Dose: 5 mg Documented by: GIANCARLO Pharmacy Consult (Consult Rx Perform Med Rec) 1 each MISCELLANE ONCE PRN PRN Reason: Consult order Pharmacy Consult (Consult Rx Perform Med Rec) 1 each MISCELLANE ONCE PRN PRN Reason: Consult order Labs CBC & Chem 7: 06/27/21 06:00 06/27/21 06:00 Labs: Laboratory Results - last 24 hr 06/27/21 06/27/21 06/27/21 11:49 16:05 20:33 POC Glucose 114 126 H 181 H 06/28/21 07:40 POC Glucose 144 H Microbiology Microbiology Results: Microbiology 06/27/21 Unknown Urine Culture - Final Urine Catheterized - Straight Catheter No growth. 06/26/21 22:42 Blood Culture - Preliminary Blood - Venous No growth after 24 hours. 06/26/21 21:24 Blood Culture - Preliminary Blood - Venous No growth after 24 hours. Procedures Date of Service Date of Service: 06/28/21 Progress Note: A&P Assessment and plan (1) Free intraperitoneal air: Status: Acute (2) Abdominal pain: Status: Acute Plan 50-year-old female patient with a complicated past medical history with numerous previous abdominal surgeries found to have increased abdominal pain mainly in the lower quadrants. Laboratories were normal as was the lactate level. On examination the patient was mildly tender to deep palpation in the lower quadrants with no rebound, guarding, or rigidity. CT of the abdomen and pelvis revealed several pockets of air around the pancreas, duodenum, and splenic flexure colon. Findings seem to be related to her prior history of necrotizing pancreatitis and fistulas. The patient's abdominal exam was non peritoneal. She was placed on IV antibiotics under clinical exam monitored. Overnight her abdominal pain has improved and is well controlled. She tolerated a clear liquid diet is willing to try a regular diet. Her diet will be advanced and IV fluids stopped. Physical therapy has been requested. Suggested patient try oral pain medications rather than intravenous meds. Fall Risk Details Current Medications: Current Medications Acetaminophen (Acetaminophen 325 Mg Tablet) 650 mg PO Q6H PRN PRN Reason: Pain, Mild (Pain Scale 1-3) Albuterol Sulfate (Albuterol Sulfate (0.083%) 2.5 Mg/3 Ml Vial.Neb) 2.5 mg INHALE Q4H PRN PRN Reason: shortness of breath Last Admin: 06/28/21 00:36 Dose: 2.5 mg Documented by: Albuterol Sulfate (Albuterol Sulfate (0.083%) 2.5 Mg/3 Ml Vial.Neb) 2.5 mg INHALE RQ4H WHILE AWAKE [facility] Last Admin: 06/28/21 07:32 Dose: 2.5 mg Documented by: Dextrose (Dextrose 50 % 25 Gm/50 Ml Syringe) 25 gm IVPUSH Q15M PRN; Protocol PRN Reason: per Hypoglycemia Standing Ord. Glucose (Glucose Gel 15 Gm Gel..Gram.) 15 gm PO Q15M PRN; Protocol PRN Reason: per Hypoglycemia Standing Ord. Hydromorphone HCl (Hydromorphone Hcl 1 Mg/Ml Syringe) 0.5 mg IVPUSH Q3H PRN; Protocol PRN Reason: Pain, Severe (Pain Scale 7-10) Last Admin: 06/28/21 09:43 Dose: 0.5 mg Documented by: Dextrose/Lactated Ringer's (D5lr) 1,000 mls @ 125 mls/hr IVCONT .Q8H [facility] Last Admin: 06/28/21 02:56 Dose: 125 mls/hr Documented by: Piperacillin Sod/Tazobactam (Sod 3.375 gm/ Sodium Chloride) 50 mls @ 100 mls/hr IV Q6H [facility] Last Admin: 06/28/21 09:43 Dose: 100 mls/hr Documented by: Insulin Human Lispro (Insulin Lispro 100 Unit/Ml 3 Ml Vial) 0 unit SUBCUT QIDACHS [facility]; Protocol Last Admin: 06/28/21 09:43 Dose: Not Given Documented by: Melatonin (Melatonin 3 Mg Tablet) 3 mg PO BEDTIME PRN PRN Reason: Insomnia Ondansetron HCl (Ondansetron Hcl 4 Mg/2 Ml Vial) 4 mg IVPUSH Q8H PRN PRN Reason: Nausea and Vomiting Last Admin: 06/28/21 09:43 Dose: 4 mg Documented by: Oxycodone HCl (Oxycodone Hcl Immed Release 5 Mg Tablet) 5 mg PO Q6H PRN PRN Reason: Pain, Moderate (Pain Scale 4-6 Last Admin: 06/27/21 05:27 Dose: 5 mg Documented by: Pharmacy Consult (Consult Rx Perform Med Rec) 1 each MISCELLANE ONCE PRN PRN Reason: Consult order Pharmacy Consult (Consult Rx Perform Med Rec) 1 each MISCELLANE ONCE PRN PRN Reason: Consult order Time Spent With Patient Time: Total time spent is greater than 50% in coordination of care (as documented) at patient's floor/unit and/or counseling patient: Quality Stroke Does the patient have a stroke diagnosis?: No VTE Prior VTE?: Yes VTE Risk Level:: Surgical - high VTE Device Contraindication: N/A - Device Ordered VTE Drug Contraindication: Treatment Not Indicated
--- NOTE | 2021-06-28 10:03 | P.PNIM_ITS ---
Subjective Subjective Date of Service: 06/28/21 Review of Systems Follow up consultation No pain requesting regular diet Physical Exam 2 Vital Signs: Vital Signs: Last Vital Signs Temp 97.5 F 06/28/21 07:43 Pulse 89 06/28/21 07:43 Resp 15 06/28/21 07:43 BP 114/57 L 06/28/21 07:43 Pulse Ox 100 06/28/21 07:43 BMI result Body Mass Index 36.3 Appearing in no acute distress lung sounds are clear to auscultation, trach mask heart regular rate rhythm, clear S1, S2 positive bowel sounds, abdomen is soft, nontender neuro patient is alert x3, no focal deficits Objective Data Active Medications Acetaminophen (Acetaminophen 325 Mg Tablet) 650 mg PO Q6H PRN PRN Reason: Pain, Mild (Pain Scale 1-3) Albuterol Sulfate (Albuterol Sulfate (0.083%) 2.5 Mg/3 Ml Vial.Neb) 2.5 mg INHALE Q4H PRN PRN Reason: shortness of breath Last Admin: 06/28/21 00:36 Dose: 2.5 mg Documented by: PERRY Albuterol Sulfate (Albuterol Sulfate (0.083%) 2.5 Mg/3 Ml Vial.Neb) 2.5 mg INHALE RQ4H WHILE AWAKE [facility] Last Admin: 06/28/21 07:32 Dose: 2.5 mg Documented by: BAYRON Dextrose (Dextrose 50 % 25 Gm/50 Ml Syringe) 25 gm IVPUSH Q15M PRN; Protocol PRN Reason: per Hypoglycemia Standing Ord. Glucose (Glucose Gel 15 Gm Gel..Gram.) 15 gm PO Q15M PRN; Protocol PRN Reason: per Hypoglycemia Standing Ord. Hydromorphone HCl (Hydromorphone Hcl 1 Mg/Ml Syringe) 0.5 mg IVPUSH Q3H PRN; Protocol PRN Reason: Pain, Severe (Pain Scale 7-10) Last Admin: 06/28/21 09:43 Dose: 0.5 mg Documented by: GALO Piperacillin Sod/Tazobactam (Sod 3.375 gm/ Sodium Chloride) 50 mls @ 100 mls/hr IV Q6H [facility] Last Admin: 06/28/21 09:43 Dose: 100 mls/hr Documented by: GALO Insulin Human Lispro (Insulin Lispro 100 Unit/Ml 3 Ml Vial) 0 unit [facility]; Protocol Last Admin: 06/28/21 09:43 Dose: Not Given Documented by: GALO Non-Admin Reason: No Insulin Coverage Melatonin (Melatonin 3 Mg Tablet) 3 mg PO BEDTIME PRN PRN Reason: Insomnia Ondansetron HCl (Ondansetron Hcl 4 Mg/2 Ml Vial) 4 mg IVPUSH Q8H PRN PRN Reason: Nausea and Vomiting Last Admin: 06/28/21 09:43 Dose: 4 mg Documented by: GALO Oxycodone HCl (Oxycodone Hcl Immed Release 5 Mg Tablet) 5 mg PO Q4H PRN PRN Reason: Pain, Moderate (Pain Scale 4-6 Pharmacy Consult (Consult Rx Perform Med Rec) 1 each MISCELLANE ONCE PRN PRN Reason: Consult order Pharmacy Consult (Consult Rx Perform Med Rec) 1 each MISCELLANE ONCE PRN PRN Reason: Consult order Labs CBC & Chem 7: 06/27/21 06:00 06/27/21 06:00 Labs: Laboratory Results - last 24 hr 06/27/21 06/27/21 06/27/21 11:49 16:05 20:33 POC Glucose 114 126 H 181 H 06/28/21 07:40 POC Glucose 144 H Microbiology Microbiology Results: Microbiology 06/27/21 Unknown Urine Culture - Final Urine Catheterized - Straight Catheter No growth. 06/26/21 22:42 Blood Culture - Preliminary Blood - Venous No growth after 24 hours. 06/26/21 21:24 Blood Culture - Preliminary Blood - Venous No growth after 24 hours. Assessment and Plan (1) Abdominal pain: Status: Acute Plan 50 year old women admitted by genera surgery for abdominal pain Abdominal pain. Resolved nausea, vomiting and diarrhea initially CT showed several pockets of air around pancreas up to splenic flexure no surgical intervention at this time, continue IV abx and monitoring Repeat CT to assess for improvement h/o PE/DVT On Eliquis for AC Diabetes Insulin sliding scale.? Hold home oral hypoglycemic agents (metformin and glipizide) History of tracheal stenosis/tracheomalacia/ asthma s/p tracheostomy Currently breathing comfortably via trach mask. prn and scheduled breathing treatments h/o takotsubo cardiomyopathy EF 25-30% per notes from [facility] on Lasix at baseline, will hold for now given sepsis monitor fluid status closely and resume Lasix ?tomorrow am Mood continue home medications - latuda, oxcarbazepine, trazodone, clonazepam History of multiple abdominal surgeries/cutaneous fistulous: Chronic.? Supportive care.? No new change in her abdominal wall erythema for patient.? Patient has been with general surgery team at [facility]. DVT prophylaxis:? Patient on Eliquis? Code status: Full code Attending: Dr. Doyle Quality Stroke Does the patient have a stroke diagnosis?: No VTE Prior VTE?: Yes VTE Risk Level:: Surgical - high VTE Device Contraindication: N/A - Device Ordered VTE Drug Contraindication: Treatment Not Indicated
[2021-06-28] MEDS: Escitalopram Oxalate 20 MG TABLET PO (10:50)
[2021-06-28] MEDS: Furosemide 40 MG TABLET PO (10:50)
[2021-06-28] MEDS: Apixaban 5 MG TABLET PO ×2 (10:50→19:59)
[2021-06-28 11:14] LABS: Glucose, Whole Blood 153 mg/dL (60-115)
[2021-06-28 16:34] LABS: Glucose, Whole Blood 165 mg/dL (60-115)
[2021-06-28] MEDS: Insulin Lispro 100 UNIT/ML 3 ML VIAL SUBCUT (16:46)
[2021-06-28] MEDS: Atorvastatin Calcium 10 MG TABLET PO (19:59)
[2021-06-28] MEDS: Lurasidone HCl 40 MG TABLET PO (19:59)
[2021-06-28 20:12] LABS: Glucose, Whole Blood 140 mg/dL (60-115)
[2021-06-29] VITALS (15 sets, daily range): BP systolic 118–159; BP diastolic 63–85; PULSE 90–115; RESP 15–20; TEMP 36.1–37.3; O2SAT 88–97
[2021-06-29] MEDS: HYDROmorphone HCl 1 MG/ML SYRINGE 0.5 MG IVPUSH ×8 (00:32→22:50)
[2021-06-29] MEDS: Piperacillin Sodium/Tazobactam 3.375 GM in 0.9 % Sodium Chloride 50 ML IV ×4 (03:25→21:59)
[2021-06-29] MEDS: Albuterol Sulfate (0.083%) 2.5 MG/3 ML VIAL.NEB INHALE ×5 (04:18→20:36)
[2021-06-29] MEDS: Insulin Lispro 100 UNIT/ML 3 ML VIAL SUBCUT ×2 (07:35→16:41)
[2021-06-29] MEDS: Escitalopram Oxalate 20 MG TABLET PO (07:38)
[2021-06-29] MEDS: Furosemide 40 MG TABLET PO (07:38)
[2021-06-29] MEDS: Apixaban 5 MG TABLET PO ×2 (07:38→19:34)
[2021-06-29] MEDS: clonazePAM 1 MG TABLET PO ×2 (07:40→19:34)
[2021-06-29 07:43] LABS: Glucose, Whole Blood 164 mg/dL (60-115)
[2021-06-29] MEDS: Lactated Ringers 1,000 ML 100 ML IVCONT ×2 (08:43→18:14)
--- NOTE | 2021-06-29 09:29 | PM.PNGS ---
Subjective Subjective Date of Service: 06/29/21 Interval history: Patient hungry but continues to report lower abdominal pain mainly in the left lower quadrant. She denies any pain in the right upper quadrant or left upper quadrant. Feels short of breath and is awaiting a respiratory treatment. Continues to cough up phlegm per the tracheostomy. Physical Exam Vital Signs: Vital Signs: Last Vital Signs Temp 98.4 F 06/29/21 07:20 Pulse 103 H 06/29/21 08:01 Resp 20 06/29/21 08:01 BP 131/73 06/29/21 07:20 Pulse Ox 97 06/29/21 07:20 BMI result Body Mass Index 36.3 Const: General: ill appearing Nutritional Appearance: well nourished Orientation/consciousness: patient oriented x3 Limitations: no limitations Resp: Effort & Inspection: audible wheezes and Actively coughing GI: Palpation (GI): Soft to palpation, Tenderness to palpation present (GI) in the LLQ; Negative for with no rebound tenderness, no guarding and not rigid Percussion: Yes normal to percussion Auscultation: normal bowel sounds Rectal Exam - Female: deferred Skin: General skin exam: no rashes or lesions noted Neuro: General: patient oriented x3 Extrem: General: Yes no clubbing, cyanosis or edema Objective Data Active Medications Acetaminophen (Acetaminophen 325 Mg Tablet) 650 mg PO Q6H PRN PRN Reason: Pain, Mild (Pain Scale 1-3) Albuterol Sulfate (Albuterol Sulfate (0.083%) 2.5 Mg/3 Ml Vial.Neb) 2.5 mg INHALE Q4H PRN PRN Reason: shortness of breath Last Admin: 06/29/21 04:18 Dose: 2.5 mg Documented by: PERRY Albuterol Sulfate (Albuterol Sulfate (0.083%) 2.5 Mg/3 Ml Vial.Neb) 2.5 mg INHALE RQ4H WHILE AWAKE [facility] Last Admin: 06/29/21 07:59 Dose: 2.5 mg Documented by: OZZIE Albuterol Sulfate (Albuterol Sulfate (0.083%) 2.5 Mg/3 Ml Vial.Neb) 2.5 mg INHALE Q4H PRN PRN Reason: shortness of breath or wheezing Apixaban (Apixaban 5 Mg Tablet) 5 mg PO BID [facility] Last Admin: 06/29/21 07:38 Dose: 5 mg Documented by: COTEMA Atorvastatin Calcium (Atorvastatin Calcium 10 Mg Tablet) 10 mg PO BEDTIME [facility] Last Admin: 06/28/21 19:59 Dose: 10 mg Documented by: AMERICO Clonazepam (Clonazepam 1 Mg Tablet) 1 mg PO BID PRN PRN Reason: Anxiety Last Admin: 06/29/21 07:40 Dose: 1 mg Documented by: DATEMA Dextrose (Dextrose 50 % 25 Gm/50 Ml Syringe) 25 gm IVPUSH Q15M PRN; Protocol PRN Reason: per Hypoglycemia Standing Ord. Escitalopram Oxalate (Escitalopram Oxalate 20 Mg Tablet) 20 mg PO DAILY [facility] Last Admin: 06/29/21 07:38 Dose: 20 mg Documented by: COTEMA Furosemide (Furosemide 40 Mg Tablet) 40 mg PO DAILY [facility]; Protocol Last Admin: 06/29/21 07:38 Dose: 40 mg Documented by: DATEMA Glucose (Glucose Gel 15 Gm Gel..Gram.) 15 gm PO Q15M PRN; Protocol PRN Reason: per Hypoglycemia Standing Ord. Hydromorphone HCl (Hydromorphone Hcl 1 Mg/Ml Syringe) 0.5 mg IVPUSH Q3H PRN; Protocol PRN Reason: Pain, Severe (Pain Scale 7-10) Last Admin: 06/29/21 07:34 Dose: 0.5 mg Documented by: RUSTY Piperacillin Sod/Tazobactam (Sod 3.375 gm/ Sodium Chloride) 50 mls @ 100 mls/hr IV Q6H [facility] Last Infusion: 06/29/21 08:37 Dose: 0 mls/hr Documented by: RUSTY Lactated Ringer's (Lr) 1,000 mls @ 100 mls/hr IVCONT .Q10H [facility] Last Admin: 06/29/21 08:43 Dose: 100 mls/hr Documented by: DATEMA Insulin Human Lispro (Insulin Lispro 100 Unit/Ml 3 Ml Vial) 0 unit SUBCUT QIDACHS [facility]; Protocol Last Admin: 06/29/21 07:35 Dose: 2 unit Documented by: DATEMA Lurasidone HCl (Lurasidone Hcl 40 Mg Tablet) 40 mg PO BEDTIME [facility] Last Admin: 06/28/21 19:59 Dose: 40 mg Documented by: AMERICO Melatonin (Melatonin 3 Mg Tablet) 3 mg PO BEDTIME PRN PRN Reason: Insomnia Ondansetron HCl (Ondansetron Hcl 4 Mg/2 Ml Vial) 4 mg IVPUSH Q8H PRN PRN Reason: Nausea and Vomiting Last Admin: 06/28/21 18:18 Dose: 4 mg Documented by: GALO Oxycodone HCl (Oxycodone Hcl Immed Release 5 Mg Tablet) 5 mg PO Q4H PRN PRN Reason: Pain, Moderate (Pain Scale 4-6 Pharmacy Consult (Consult Rx Perform Med Rec) 1 each MISCELLANE ONCE PRN PRN Reason: Consult order Pharmacy Consult (Consult Rx Perform Med Rec) 1 each MISCELLANE ONCE PRN PRN Reason: Consult order Promethazine HCl (Promethazine Hcl 25 Mg Tablet) 25 mg PO Q8H PRN PRN Reason: Nausea Trazodone HCl (Trazodone Hcl 100 Mg Tablet) 100 mg PO BEDTIME PRN PRN Reason: Sleep Labs CBC & Chem 7: 06/27/21 06:00 06/27/21 06:00 Labs: Laboratory Results - last 24 hr 06/28/21 06/28/21 06/28/21 11:05 15:57 20:06 POC Glucose 153 H 165 H 140 H 06/29/21 07:23 POC Glucose 164 H Microbiology Microbiology Results: Microbiology 06/26/21 22:42 Blood Culture - Preliminary Blood - Venous No growth after 48 hours. 06/26/21 21:24 Blood Culture - Preliminary Blood - Venous No growth after 48 hours. 06/27/21 Unknown Urine Culture - Final Urine Catheterized - Straight Catheter No growth. 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 Patient is asymptomatic in the upper abdomen but does report tenderness in the left lower quadrant. She also reports shortness of breath associated with her asthma. She is awaiting respiratory treatment. I recommended a repeat CT abdomen and pelvis. Will keep NPO and started on IV fluids. Patient expressed understanding and agrees with the plan. Fall Risk Details Current Medications: Current Medications Acetaminophen (Acetaminophen 325 Mg Tablet) 650 mg PO Q6H PRN PRN Reason: Pain, Mild (Pain Scale 1-3) Albuterol Sulfate (Albuterol Sulfate (0.083%) 2.5 Mg/3 Ml Vial.Neb) 2.5 mg INHALE Q4H PRN PRN Reason: shortness of breath Last Admin: 06/29/21 04:18 Dose: 2.5 mg Documented by: Albuterol Sulfate (Albuterol Sulfate (0.083%) 2.5 Mg/3 Ml Vial.Neb) 2.5 mg INHALE RQ4H WHILE AWAKE [facility] Last Admin: 06/29/21 07:59 Dose: 2.5 mg Documented by: Albuterol Sulfate (Albuterol Sulfate (0.083%) 2.5 Mg/3 Ml Vial.Neb) 2.5 mg INHALE Q4H PRN PRN Reason: shortness of breath or wheezing Apixaban (Apixaban 5 Mg Tablet) 5 mg PO BID [facility] Last Admin: 06/29/21 07:38 Dose: 5 mg Documented by: Atorvastatin Calcium (Atorvastatin Calcium 10 Mg Tablet) 10 mg PO BEDTIME [facility] Last Admin: 06/28/21 19:59 Dose: 10 mg Documented by: Clonazepam (Clonazepam 1 Mg Tablet) 1 mg PO BID PRN PRN Reason: Anxiety Last Admin: 06/29/21 07:40 Dose: 1 mg Documented by: Dextrose (Dextrose 50 % 25 Gm/50 Ml Syringe) 25 gm IVPUSH Q15M PRN; Protocol PRN Reason: per Hypoglycemia Standing Ord. Escitalopram Oxalate (Escitalopram Oxalate 20 Mg Tablet) 20 mg PO DAILY [facility] Last Admin: 06/29/21 07:38 Dose: 20 mg Documented by: Furosemide (Furosemide 40 Mg Tablet) 40 mg PO DAILY [facility]; Protocol Last Admin: 06/29/21 07:38 Dose: 40 mg Documented by: Glucose (Glucose Gel 15 Gm Gel..Gram.) 15 gm PO Q15M PRN; Protocol PRN Reason: per Hypoglycemia Standing Ord. Hydromorphone HCl (Hydromorphone Hcl 1 Mg/Ml Syringe) 0.5 mg IVPUSH Q3H PRN; Protocol PRN Reason: Pain, Severe (Pain Scale 7-10) Last Admin: 06/29/21 07:34 Dose: 0.5 mg Documented by: Piperacillin Sod/Tazobactam (Sod 3.375 gm/ Sodium Chloride) 50 mls @ 100 mls/hr IV Q6H [facility] Last Infusion: 06/29/21 08:37 Dose: Infused Documented by: Lactated Ringer's (Lr) 1,000 mls @ 100 mls/hr IVCONT .Q10H [facility] Last Admin: 06/29/21 08:43 Dose: 100 mls/hr Documented by: Insulin Human Lispro (Insulin Lispro 100 Unit/Ml 3 Ml Vial) 0 unit SUBCUT QIDACHS [facility]; Protocol Last Admin: 06/29/21 07:35 Dose: 2 unit Documented by: Lurasidone HCl (Lurasidone Hcl 40 Mg Tablet) 40 mg PO BEDTIME [facility] Last Admin: 06/28/21 19:59 Dose: 40 mg Documented by: Melatonin (Melatonin 3 Mg Tablet) 3 mg PO BEDTIME PRN PRN Reason: Insomnia Ondansetron HCl (Ondansetron Hcl 4 Mg/2 Ml Vial) 4 mg IVPUSH Q8H PRN PRN Reason: Nausea and Vomiting Last Admin: 06/28/21 18:18 Dose: 4 mg Documented by: Oxycodone HCl (Oxycodone Hcl Immed Release 5 Mg Tablet) 5 mg PO Q4H PRN PRN Reason: Pain, Moderate (Pain Scale 4-6 Pharmacy Consult (Consult Rx Perform Med Rec) 1 each MISCELLANE ONCE PRN PRN Reason: Consult order Pharmacy Consult (Consult Rx Perform Med Rec) 1 each MISCELLANE ONCE PRN PRN Reason: Consult order Promethazine HCl (Promethazine Hcl 25 Mg Tablet) 25 mg PO Q8H PRN PRN Reason: Nausea Trazodone HCl (Trazodone Hcl 100 Mg Tablet) 100 mg PO BEDTIME PRN PRN Reason: Sleep Time Spent With Patient Time: Total time spent is greater than 50% in coordination of care (as documented) at patient's floor/unit and/or counseling patient: Quality Stroke Does the patient have a stroke diagnosis?: No VTE Prior VTE?: Yes VTE Risk Level:: Surgical - high VTE Device Contraindication: N/A - Device Ordered VTE Drug Contraindication: Treatment Not Indicated
[2021-06-29] MEDS: iohexoL 350 MG/ML 100 ML INFUS..BTL IV (09:56)
[2021-06-29 11:02] LABS: Glucose, Whole Blood 133 mg/dL (60-115)
[2021-06-29 16:36] LABS: Glucose, Whole Blood 153 mg/dL (60-115)
[2021-06-29] MEDS: Atorvastatin Calcium 10 MG TABLET PO (19:34)
[2021-06-29] MEDS: ondansetron HCL 4 MG/2 ML VIAL IVPUSH (19:34)
[2021-06-29] MEDS: oxyCODONE HCl Immed Release 5 MG TABLET PO (19:35)
[2021-06-29] MEDS: Lurasidone HCl 40 MG TABLET PO (19:35)
[2021-06-29 20:48] LABS: Glucose, Whole Blood 128 mg/dL (60-115)
[2021-06-29] MEDS: Promethazine HCL 25 MG TABLET PO (22:50)
--- NOTE | 2021-06-29 23:01 | W.PM.IDCN ---
History of Present Illness Data of Consult Service Date: 06/29/21 Requesting physician: Alen Freedman Primary Care Provider: Angie Wing MD [facility] Reason for consult: abdominal pain She presents with 5/10 LLQ pain for a day She has some air throughout abdomen but no surgical abdomen reported. SHe has multiple abdominal surgeries and superficial culture shows ESBL enteric bacteria. Review of Systems Review of Systems: Yes all other systems are reviewed and are negative PMFSH Past Medical History Medical History (Updated 07/15/21 @ 00:02 by Rosie Mendes) Asthma Bipolar 1 disorder Diabetes Kidney stones Substance abuse Takotsubo cardiomyopathy UTI (urinary tract infection) Wound drainage Family History Family history: reviewed and not pertinent Surgical History Surgical History H/O exploratory laparotomy S/P cholecystectomy S/P ureteral stent placement Social History Social History Household Members: Spouse Housing: Apartment Do you presently have visiting nurse or other home services: Yes (visiting nurses, pt/ot) Alcohol intake: never Patient Tobacco Use Status: Never used Tobacco service: No Current occupational status: disabled Meds Allergies Allergy/AdvReac Type Severity Reaction Status Date / Time pantoprazole Allergy Unknown Verified 06/11/21 15:17 Active Medications: Current Medications Acetaminophen (Acetaminophen 325 Mg Tablet) 650 mg PO Q6H PRN PRN Reason: Pain, Mild (Pain Scale 1-3) Albuterol Sulfate (Albuterol Sulfate (0.083%) 2.5 Mg/3 Ml Vial.Neb) 2.5 mg INHALE Q4H PRN PRN Reason: shortness of breath Last Admin: 06/29/21 04:18 Dose: 2.5 mg Documented by: Albuterol Sulfate (Albuterol Sulfate (0.083%) 2.5 Mg/3 Ml Vial.Neb) 2.5 mg INHALE RQ4H WHILE AWAKE [facility] Last Admin: 06/29/21 20:36 Dose: 2.5 mg Documented by: Albuterol Sulfate (Albuterol Sulfate (0.083%) 2.5 Mg/3 Ml Vial.Neb) 2.5 mg INHALE Q4H PRN PRN Reason: shortness of breath or wheezing Apixaban (Apixaban 5 Mg Tablet) 5 mg PO BID [facility] Last Admin: 06/29/21 19:34 Dose: 5 mg Documented by: Atorvastatin Calcium (Atorvastatin Calcium 10 Mg Tablet) 10 mg PO BEDTIME [facility] Last Admin: 06/29/21 19:34 Dose: 10 mg Documented by: Clonazepam (Clonazepam 1 Mg Tablet) 1 mg PO BID PRN PRN Reason: Anxiety Last Admin: 06/29/21 19:34 Dose: 1 mg Documented by: Dextrose (Dextrose 50 % 25 Gm/50 Ml Syringe) 25 gm IVPUSH Q15M PRN; Protocol PRN Reason: per Hypoglycemia Standing Ord. Escitalopram Oxalate (Escitalopram Oxalate 20 Mg Tablet) 20 mg PO DAILY [facility] Last Admin: 06/29/21 07:38 Dose: 20 mg Documented by: Furosemide (Furosemide 40 Mg Tablet) 40 mg PO DAILY [facility]; Protocol Last Admin: 06/29/21 07:38 Dose: 40 mg Documented by: Glucose (Glucose Gel 15 Gm Gel..Gram.) 15 gm PO Q15M PRN; Protocol PRN Reason: per Hypoglycemia Standing Ord. Hydromorphone HCl (Hydromorphone Hcl 1 Mg/Ml Syringe) 0.5 mg IVPUSH Q3H PRN; Protocol PRN Reason: Pain, Severe (Pain Scale 7-10) Last Admin: 06/29/21 22:50 Dose: 0.5 mg Documented by: Piperacillin Sod/Tazobactam (Sod 3.375 gm/ Sodium Chloride) 50 mls @ 100 mls/hr IV Q6H [facility] Last Infusion: 06/29/21 22:43 Dose: Infused Documented by: Lactated Ringer's (Lr) 1,000 mls @ 100 mls/hr IVCONT .Q10H [facility] Last Admin: 06/29/21 18:14 Dose: 100 mls/hr Documented by: Insulin Human Lispro (Insulin Lispro 100 Unit/Ml 3 Ml Vial) 0 unit SUBCUT QIDACHS [facility]; Protocol Last Admin: 06/29/21 21:43 Dose: Not Given Documented by: Lurasidone HCl (Lurasidone Hcl 40 Mg Tablet) 40 mg PO BEDTIME [facility] Last Admin: 06/29/21 19:35 Dose: 40 mg Documented by: Melatonin (Melatonin 3 Mg Tablet) 3 mg PO BEDTIME PRN PRN Reason: Insomnia Ondansetron HCl (Ondansetron Hcl 4 Mg/2 Ml Vial) 4 mg IVPUSH Q8H PRN PRN Reason: Nausea and Vomiting Last Admin: 06/29/21 19:34 Dose: 4 mg Documented by: Oxycodone HCl (Oxycodone Hcl Immed Release 5 Mg Tablet) 5 mg PO Q4H PRN PRN Reason: Pain, Moderate (Pain Scale 4-6 Last Admin: 06/29/21 19:35 Dose: 5 mg Documented by: Pharmacy Consult (Consult Rx Perform Med Rec) 1 each MISCELLANE ONCE PRN PRN Reason: Consult order Promethazine HCl (Promethazine Hcl 25 Mg Tablet) 25 mg PO Q8H PRN PRN Reason: Nausea Last Admin: 06/29/21 22:50 Dose: 25 mg Documented by: Trazodone HCl (Trazodone Hcl 100 Mg Tablet) 100 mg PO BEDTIME PRN PRN Reason: Sleep Home Medications Medication Instructions Recorded Confirmed Last Taken Type albuterol sulfate 2.5 mg/0.5 mL 2.5 mg INHALATION Q4H PRN 06/11/21 06/27/21 06/26/21 History solution for nebulization apixaban 5 mg tablet (Eliquis) 5 mg PO BID 06/11/21 06/27/21 06/26/21 History atorvastatin 10 mg tablet 1 tab PO BEDTIME 06/11/21 06/27/21 06/26/21 History clonazepam 1 mg tablet 1 tab PO BID PRN 06/11/21 06/27/21 06/26/21 History furosemide 40 mg tablet 1 tab PO DAILY 06/11/21 06/27/21 06/26/21 History glipizide 5 mg tablet 1 tab PO BIDAC 06/11/21 06/27/21 06/26/21 History lurasidone 40 mg tablet (Latuda) 1 tab PO BEDTIME 06/11/21 06/27/21 06/26/21 History metformin 500 mg tablet,extended 2 tab PO BIDAC 06/11/21 06/27/21 06/11/21 History release 24 hr trazodone 100 mg tablet 1 tab PO BEDTIME PRN 06/11/21 06/27/21 06/26/21 History escitalopram oxalate 20 mg tablet 1 tab PO DAILY 06/26/21 06/27/21 06/26/21 History promethazine 25 mg tablet 1 tab PO Q8H PRN 06/26/21 06/27/21 06/26/21 History Physical Exam Vital Signs: Vital Signs: Last Vital Signs Temp 97 F 06/29/21 19:23 Pulse 100 06/29/21 20:36 Resp 18 06/29/21 19:23 BP 131/67 06/29/21 19:23 Pulse Ox 95 06/29/21 19:23 BMI result Body Mass Index 36.3 Const: General: cooperative HEENT: Head: Yes normal to inspection Mouth: Normal oral and palatal mucosa present Resp: Effort & Inspection: normal respiratory effort Cardio: Rate: regular rate Rhythm: regular rhythm GI: Palpation (GI): Soft to palpation and Tenderness to palpation present (GI) (LLQ) Skin: General skin exam: no rashes or lesions noted Results Labs CBC & Chem 7: 07/06/21 06:05 07/06/21 06:05 Microbiology Microbiology Results: Microbiology 06/26/21 22:42 Blood - Venous Blood Culture - Preliminary No growth after 48 hours. 06/26/21 21:24 Blood - Venous Blood Culture - Preliminary No growth after 48 hours. 06/27/21 Unknown Urine Catheterized - Straight Catheter Urine Culture - Final No growth. Assessment and Plan (1) Abdominal pain: Status: Acute This is possible enteric organism infection Possible colitis. ?fistula (not seen) (2) Free intraperitoneal air: Status: Deleted (3) Wound drainage: Status: Resolved Plan Continue Zosyn until improved Follow Surgery,CT scan
[2021-06-30] VITALS (12 sets, daily range): BP systolic 98–121; BP diastolic 52–61; PULSE 81–100; RESP 15–22; TEMP 36.1–37.3; O2SAT 90–96
[2021-06-30] MEDS: HYDROmorphone HCl 1 MG/ML SYRINGE 0.5 MG IVPUSH ×7 (02:06→23:15)
[2021-06-30] MEDS: Piperacillin Sodium/Tazobactam 3.375 GM in 0.9 % Sodium Chloride 50 ML IV ×4 (02:06→20:25)
[2021-06-30] MEDS: Lactated Ringers 1,000 ML 100 ML IVCONT (03:29)
[2021-06-30] MEDS: Albuterol Sulfate (0.083%) 2.5 MG/3 ML VIAL.NEB INHALE ×6 (03:31→23:25)
[2021-06-30 07:47] LABS: Glucose, Whole Blood 139 mg/dL (60-115)
[2021-06-30] MEDS: Apixaban 5 MG TABLET PO ×2 (08:52→20:24)
--- NOTE | 2021-06-30 08:52 | PM.PNGS ---
Subjective Subjective Date of Service: 06/30/21 Interval history: Continues to c/o severe pain requiring dilaudid. Currently in left flank/back which is new. Also reports SOB and increasing frequency of productive cough. Asking for steroid. Physical Exam Vital Signs: Vital Signs: Last Vital Signs Temp 97.0 F 06/30/21 07:39 Pulse 92 06/30/21 08:17 Resp 22 H 06/30/21 08:17 BP 116/61 06/30/21 07:39 Pulse Ox 93 06/30/21 07:39 BMI result Body Mass Index 36.3 Const: General: comfortable, no acute distress and alert Orientation/consciousness: patient oriented x3 Resp: Effort & Inspection: normal respiratory effort GI: Inspection: No distended Palpation (GI): Soft to palpation and Tenderness to palpation present (GI) (mild ) in the LLQ Percussion: Yes normal to percussion Skin: General skin exam: no rashes or lesions noted Neuro: General: patient oriented x3 Objective Data Active Medications Acetaminophen (Acetaminophen 325 Mg Tablet) 650 mg PO Q6H PRN PRN Reason: Pain, Mild (Pain Scale 1-3) Albuterol Sulfate (Albuterol Sulfate (0.083%) 2.5 Mg/3 Ml Vial.Neb) 2.5 mg INHALE Q4H PRN PRN Reason: shortness of breath Last Admin: 06/29/21 04:18 Dose: 2.5 mg Documented by: PERRY Albuterol Sulfate (Albuterol Sulfate (0.083%) 2.5 Mg/3 Ml Vial.Neb) 2.5 mg INHALE RQ4H WHILE AWAKE [facility] Last Admin: 06/30/21 08:16 Dose: 2.5 mg Documented by: BAYRON Albuterol Sulfate (Albuterol Sulfate (0.083%) 2.5 Mg/3 Ml Vial.Neb) 2.5 mg INHALE Q4H PRN PRN Reason: shortness of breath or wheezing Apixaban (Apixaban 5 Mg Tablet) 5 mg PO BID [facility] Last Admin: 06/29/21 19:34 Dose: 5 mg Documented by: NELY Atorvastatin Calcium (Atorvastatin Calcium 10 Mg Tablet) 10 mg PO BEDTIME [facility] Last Admin: 06/29/21 19:34 Dose: 10 mg Documented by: NELY Clonazepam (Clonazepam 1 Mg Tablet) 1 mg PO BID PRN PRN Reason: Anxiety Last Admin: 06/29/21 19:34 Dose: 1 mg Documented by: NELY Dextrose (Dextrose 50 % 25 Gm/50 Ml Syringe) 25 gm IVPUSH Q15M PRN; Protocol PRN Reason: per Hypoglycemia Standing Ord. Escitalopram Oxalate (Escitalopram Oxalate 20 Mg Tablet) 20 mg PO DAILY [facility] Last Admin: 06/29/21 07:38 Dose: 20 mg Documented by: COTHUY Furosemide (Furosemide 40 Mg Tablet) 40 mg PO DAILY [facility]; Protocol Last Admin: 06/29/21 07:38 Dose: 40 mg Documented by: RUSTY Glucose (Glucose Gel 15 Gm Gel..Gram.) 15 gm PO Q15M PRN; Protocol PRN Reason: per Hypoglycemia Standing Ord. Hydromorphone HCl (Hydromorphone Hcl 1 Mg/Ml Syringe) 0.5 mg IVPUSH Q3H PRN; Protocol PRN Reason: Pain, Severe (Pain Scale 7-10) Last Admin: 06/30/21 06:28 Dose: 0.5 mg Documented by: NELY Piperacillin Sod/Tazobactam (Sod 3.375 gm/ Sodium Chloride) 50 mls @ 100 mls/hr IV Q6H [facility] Last Infusion: 06/30/21 02:40 Dose: 0 mls/hr Documented by: NELY Lactated Ringer's (Lr) 1,000 mls @ 100 mls/hr IVCONT .Q10H [facility] Last Admin: 06/30/21 03:29 Dose: 100 mls/hr Documented by: NELY Insulin Human Lispro (Insulin Lispro 100 Unit/Ml 3 Ml Vial) 0 unit SUBCUT QIDACHS [facility]; Protocol Last Admin: 06/30/21 07:49 Dose: Not Given Documented by: DABMario Non-Admin Reason: No Insulin Coverage Lurasidone HCl (Lurasidone Hcl 40 Mg Tablet) 40 mg PO BEDTIME [facility] Last Admin: 06/29/21 19:35 Dose: 40 mg Documented by: NELY Melatonin (Melatonin 3 Mg Tablet) 3 mg PO BEDTIME PRN PRN Reason: Insomnia Ondansetron HCl (Ondansetron Hcl 4 Mg/2 Ml Vial) 4 mg IVPUSH Q8H PRN PRN Reason: Nausea and Vomiting Last Admin: 06/29/21 19:34 Dose: 4 mg Documented by: NELY Oxycodone HCl (Oxycodone Hcl Immed Release 5 Mg Tablet) 5 mg PO Q4H PRN PRN Reason: Pain, Moderate (Pain Scale 4-6 Last Admin: 06/29/21 19:35 Dose: 5 mg Documented by: NELY Pharmacy Consult (Consult Rx Perform Med Rec) 1 each MISCELLANE ONCE PRN PRN Reason: Consult order Promethazine HCl (Promethazine Hcl 25 Mg Tablet) 25 mg PO Q8H PRN PRN Reason: Nausea Last Admin: 06/29/21 22:50 Dose: 25 mg Documented by: NELY Trazodone HCl (Trazodone Hcl 100 Mg Tablet) 100 mg PO BEDTIME PRN PRN Reason: Sleep Labs CBC & Chem 7: 06/27/21 06:00 06/27/21 06:00 Labs: Laboratory Results - last 24 hr 06/29/21 06/29/21 06/29/21 10:53 16:32 20:44 POC Glucose 133 H 153 H 128 H 06/30/21 07:42 POC Glucose 139 H Procedures Date of Service Date of Service: 06/30/21 Progress Note: A&P Assessment and plan (1) Free intraperitoneal air: Status: Acute (2) Wound drainage: Status: Acute (3) Abdominal pain: Status: Acute Plan 50-year-old female patient with a complicated surgical history with 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 Repeat CT scan demonstrated no increasing foci of air. Her tenderness persists in the lower abdomen and remains very soft. Cont IV abx, IVF, diet as tolerated. Bowel regimen. She also reports shortness of breath and increasing sputum production and is asking for steroids. Will discuss with medicine service. Fall Risk Details Current Medications: Current Medications Acetaminophen (Acetaminophen 325 Mg Tablet) 650 mg PO Q6H PRN PRN Reason: Pain, Mild (Pain Scale 1-3) Albuterol Sulfate (Albuterol Sulfate (0.083%) 2.5 Mg/3 Ml Vial.Neb) 2.5 mg INHALE Q4H PRN PRN Reason: shortness of breath Last Admin: 06/29/21 04:18 Dose: 2.5 mg Documented by: Albuterol Sulfate (Albuterol Sulfate (0.083%) 2.5 Mg/3 Ml Vial.Neb) 2.5 mg INHALE RQ4H WHILE AWAKE [facility] Last Admin: 06/30/21 08:16 Dose: 2.5 mg Documented by: Albuterol Sulfate (Albuterol Sulfate (0.083%) 2.5 Mg/3 Ml Vial.Neb) 2.5 mg INHALE Q4H PRN PRN Reason: shortness of breath or wheezing Apixaban (Apixaban 5 Mg Tablet) 5 mg PO BID [facility] Last Admin: 06/29/21 19:34 Dose: 5 mg Documented by: Atorvastatin Calcium (Atorvastatin Calcium 10 Mg Tablet) 10 mg PO BEDTIME [facility] Last Admin: 06/29/21 19:34 Dose: 10 mg Documented by: Clonazepam (Clonazepam 1 Mg Tablet) 1 mg PO BID PRN PRN Reason: Anxiety Last Admin: 06/29/21 19:34 Dose: 1 mg Documented by: Dextrose (Dextrose 50 % 25 Gm/50 Ml Syringe) 25 gm IVPUSH Q15M PRN; Protocol PRN Reason: per Hypoglycemia Standing Ord. Escitalopram Oxalate (Escitalopram Oxalate 20 Mg Tablet) 20 mg PO DAILY [facility] Last Admin: 06/29/21 07:38 Dose: 20 mg Documented by: Furosemide (Furosemide 40 Mg Tablet) 40 mg PO DAILY [facility]; Protocol Last Admin: 06/29/21 07:38 Dose: 40 mg Documented by: Glucose (Glucose Gel 15 Gm Gel..Gram.) 15 gm PO Q15M PRN; Protocol PRN Reason: per Hypoglycemia Standing Ord. Hydromorphone HCl (Hydromorphone Hcl 1 Mg/Ml Syringe) 0.5 mg IVPUSH Q3H PRN; Protocol PRN Reason: Pain, Severe (Pain Scale 7-10) Last Admin: 06/30/21 06:28 Dose: 0.5 mg Documented by: Piperacillin Sod/Tazobactam (Sod 3.375 gm/ Sodium Chloride) 50 mls @ 100 mls/hr IV Q6H [facility] Last Infusion: 06/30/21 02:40 Dose: Infused Documented by: Lactated Ringer's (Lr) 1,000 mls @ 100 mls/hr IVCONT .Q10H [facility] Last Admin: 06/30/21 03:29 Dose: 100 mls/hr Documented by: Insulin Human Lispro (Insulin Lispro 100 Unit/Ml 3 Ml Vial) 0 unit SUBCUT QIDACHS [facility]; Protocol Last Admin: 06/30/21 07:49 Dose: Not Given Documented by: Lurasidone HCl (Lurasidone Hcl 40 Mg Tablet) 40 mg PO BEDTIME [facility] Last Admin: 06/29/21 19:35 Dose: 40 mg Documented by: Melatonin (Melatonin 3 Mg Tablet) 3 mg PO BEDTIME PRN PRN Reason: Insomnia Ondansetron HCl (Ondansetron Hcl 4 Mg/2 Ml Vial) 4 mg IVPUSH Q8H PRN PRN Reason: Nausea and Vomiting Last Admin: 06/29/21 19:34 Dose: 4 mg Documented by: Oxycodone HCl (Oxycodone Hcl Immed Release 5 Mg Tablet) 5 mg PO Q4H PRN PRN Reason: Pain, Moderate (Pain Scale 4-6 Last Admin: 06/29/21 19:35 Dose: 5 mg Documented by: Pharmacy Consult (Consult Rx Perform Med Rec) 1 each MISCELLANE ONCE PRN PRN Reason: Consult order Promethazine HCl (Promethazine Hcl 25 Mg Tablet) 25 mg PO Q8H PRN PRN Reason: Nausea Last Admin: 06/29/21 22:50 Dose: 25 mg Documented by: Trazodone HCl (Trazodone Hcl 100 Mg Tablet) 100 mg PO BEDTIME PRN PRN Reason: Sleep Time Spent With Patient Time: Total time spent is greater than 50% in coordination of care (as documented) at patient's floor/unit and/or counseling patient: Quality Stroke Does the patient have a stroke diagnosis?: No VTE Prior VTE?: Yes VTE Risk Level:: Surgical - high VTE Device Contraindication: N/A - Device Ordered VTE Drug Contraindication: Treatment Not Indicated
[2021-06-30] MEDS: Escitalopram Oxalate 20 MG TABLET PO (08:53)
[2021-06-30] MEDS: clonazePAM 1 MG TABLET PO ×2 (08:53→20:24)
[2021-06-30] MEDS: Furosemide 40 MG TABLET PO (08:53)
[2021-06-30] MEDS: polyethylene glycoL 3350 17 GM POWD.PACK PO (09:26)
[2021-06-30] MEDS: Docusate Sodium 100 MG CAPSULE PO ×2 (09:26→20:24)
[2021-06-30] MEDS: predniSONE 20 MG TABLET 40 MG PO (09:26)
[2021-06-30 11:45] LABS: Glucose, Whole Blood 250 mg/dL (60-115)
[2021-06-30] MEDS: Insulin Lispro 100 UNIT/ML 3 ML VIAL SUBCUT ×3 (12:07→20:24)
--- NOTE | 2021-06-30 14:51 | MHC.CM.PN ---
DAVONTE DIAZ UPDATED IN [facility] CASE MANAGEMENT CONTINUING TO FOLLOW FOR DISCHARGE
[2021-06-30 15:58] LABS: Glucose, Whole Blood 331 mg/dL (60-115)
[2021-06-30] MEDS: ondansetron HCL 4 MG/2 ML VIAL IVPUSH (18:20)
[2021-06-30 20:14] LABS: Glucose, Whole Blood 364 mg/dL (60-115)
[2021-06-30] MEDS: Atorvastatin Calcium 10 MG TABLET PO (20:24)
[2021-06-30] MEDS: Lurasidone HCl 40 MG TABLET PO (20:24)
[2021-07-01] VITALS (11 sets, daily range): BP systolic 97–127; BP diastolic 52–71; PULSE 73–80; RESP 13–22; TEMP 36–36.6; O2SAT 92–96
[2021-07-01] MEDS: Lactated Ringers 1,000 ML 100 ML IVCONT (02:34)
[2021-07-01] MEDS: Piperacillin Sodium/Tazobactam 3.375 GM in 0.9 % Sodium Chloride 50 ML IV ×4 (02:42→20:59)
[2021-07-01] MEDS: HYDROmorphone HCl 1 MG/ML SYRINGE 0.5 MG IVPUSH ×6 (03:25→19:22)
[2021-07-01 07:30] LABS: Glucose, Whole Blood 147 mg/dL (60-115)
[2021-07-01] MEDS: Albuterol Sulfate (0.083%) 2.5 MG/3 ML VIAL.NEB INHALE ×4 (07:58→18:55)
[2021-07-01] MEDS: Furosemide 40 MG TABLET PO (10:03)
[2021-07-01] MEDS: Escitalopram Oxalate 20 MG TABLET PO (10:06)
[2021-07-01] MEDS: clonazePAM 1 MG TABLET PO ×2 (10:06→19:23)
[2021-07-01] MEDS: predniSONE 20 MG TABLET 40 MG PO (10:06)
[2021-07-01] MEDS: Apixaban 5 MG TABLET PO ×2 (10:06→19:23)
[2021-07-01 11:34] LABS: Glucose, Whole Blood 184 mg/dL (60-115)
[2021-07-01] MEDS: Insulin Lispro 100 UNIT/ML 3 ML VIAL SUBCUT ×4 (11:48→20:58)
--- NOTE | 2021-07-01 13:10 | PM.PNGS ---
Subjective Subjective Date of Service: 07/01/21 <Kerri Guzman PA-C - Last Filed: 07/01/21 13:42> 07/01/21 <Alen Freedman MD - Last Filed: 07/01/21 14:25> Interval history: Feels better overall but continues to have lower abdominal pain. Decreased in severity but still becoming severe when dilaudid wears off. Passing flatus, moving bowels. Tolerating diet. Breathing feels improved this morning. <Kerri Guzman PA-C - Last Filed: 07/01/21 13:42> Physical Exam Vital Signs: Vital Signs: Last Vital Signs Temp 97.0 F 07/01/21 07:36 Pulse 76 07/01/21 11:08 Resp 22 H 07/01/21 11:08 BP 106/56 L 07/01/21 07:36 Pulse Ox 94 07/01/21 07:36 BMI result Body Mass Index 36.3 <Kerri Guzman PA-C - Last Filed: 07/01/21 13:42> Const: General: comfortable, no acute distress and alert <Kerri Guzman PA-C - Last Filed: 07/01/21 13:42> Orientation/consciousness: patient oriented x3 <Kerri Guzman PA-C - Last Filed: 07/01/21 13:42> Resp: Effort & Inspection: normal respiratory effort <Kerri Guzman PA-C - Last Filed: 07/01/21 13:42> GI: Other: slightly distended, very soft, LLQ tenderness into L flank, no guarding/rebound <Kerri Guzman PA-C - Last Filed: 07/01/21 13:42> Neuro: General: patient oriented x3 and moves all extremities <ALBINO Velasquez Last Filed: 07/01/21 13:42> Objective Data Active Medications Acetaminophen (Acetaminophen 325 Mg Tablet) 650 mg PO Q6H PRN PRN Reason: Pain, Mild (Pain Scale 1-3) Albuterol Sulfate (Albuterol Sulfate (0.083%) 2.5 Mg/3 Ml Vial.Neb) 2.5 mg INHALE Q4H PRN PRN Reason: shortness of breath Last Admin: 06/30/21 23:25 Dose: 2.5 mg Documented by: PERRY Albuterol Sulfate (Albuterol Sulfate (0.083%) 2.5 Mg/3 Ml Vial.Neb) 2.5 mg INHALE RQ4H WHILE AWAKE [facility] Last Admin: 07/01/21 11:08 Dose: 2.5 mg Documented by: DHEERAJ Albuterol Sulfate (Albuterol Sulfate (0.083%) 2.5 Mg/3 Ml Vial.Neb) 2.5 mg INHALE Q4H PRN PRN Reason: shortness of breath or wheezing Apixaban (Apixaban 5 Mg Tablet) 5 mg PO BID [facility] Last Admin: 07/01/21 10:06 Dose: 5 mg Documented by: FRANCISCO Atorvastatin Calcium (Atorvastatin Calcium 10 Mg Tablet) 10 mg PO BEDTIME [facility] Last Admin: 06/30/21 20:24 Dose: 10 mg Documented by: NELY Clonazepam (Clonazepam 1 Mg Tablet) 1 mg PO BID PRN PRN Reason: Anxiety Last Admin: 07/01/21 10:06 Dose: 1 mg Documented by: FRANCISCO Dextrose (Dextrose 50 % 25 Gm/50 Ml Syringe) 25 gm IVPUSH Q15M PRN; Protocol PRN Reason: per Hypoglycemia Standing Ord. Docusate Sodium (Docusate Sodium 100 Mg Capsule) 100 mg PO BID [facility] Last Admin: 07/01/21 10:09 Dose: Not Given Documented by: FRANCISCO Non-Admin Reason: Patient Refused Escitalopram Oxalate (Escitalopram Oxalate 20 Mg Tablet) 20 mg PO DAILY [facility] Last Admin: 07/01/21 10:06 Dose: 20 mg Documented by: FRANCISCO Furosemide (Furosemide 40 Mg Tablet) 40 mg PO DAILY [facility]; Protocol Last Admin: 07/01/21 10:03 Dose: 40 mg Documented by: FRANCISCO Comments: 114/62 Glucose (Glucose Gel 15 Gm Gel..Gram.) 15 gm PO Q15M PRN; Protocol PRN Reason: per Hypoglycemia Standing Ord. Hydromorphone HCl (Hydromorphone Hcl 1 Mg/Ml Syringe) 0.5 mg IVPUSH Q3H PRN; Protocol PRN Reason: Pain, Severe (Pain Scale 7-10) Last Admin: 07/01/21 12:58 Dose: 0.5 mg Documented by: HEATHER Piperacillin Sod/Tazobactam (Sod 3.375 gm/ Sodium Chloride) 50 mls @ 100 mls/hr IV Q6H [facility] Last Infusion: 07/01/21 10:46 Dose: 0 mls/hr Documented by: HEATHER Insulin Human Lispro (Insulin Lispro 100 Unit/Ml 3 Ml Vial) 0 unit SUBCUT QIDACHS [facility]; Protocol Last Admin: 07/01/21 11:48 Dose: 2 unit Documented by: FRANCISCO Lurasidone HCl (Lurasidone Hcl 40 Mg Tablet) 40 mg PO BEDTIME [facility] Last Admin: 06/30/21 20:24 Dose: 40 mg Documented by: NELY Melatonin (Melatonin 3 Mg Tablet) 3 mg PO BEDTIME PRN PRN Reason: Insomnia Ondansetron HCl (Ondansetron Hcl 4 Mg/2 Ml Vial) 4 mg IVPUSH Q8H PRN PRN Reason: Nausea and Vomiting Last Admin: 06/30/21 18:20 Dose: 4 mg Documented by: HEATHER Oxycodone HCl (Oxycodone Hcl Immed Release 5 Mg Tablet) 5 mg PO Q4H PRN PRN Reason: Pain, Moderate (Pain Scale 4-6 Last Admin: 06/29/21 19:35 Dose: 5 mg Documented by: NELY Oxycodone HCl (Oxycodone Hcl Immed Release 5 Mg Tablet) 10 mg PO Q4H PRN PRN Reason: Pain, Severe (Pain Scale 7-10) Pharmacy Consult (Consult Rx Perform Med Rec) 1 each MISCELLANE ONCE PRN PRN Reason: Consult order Polyethylene Glycol (Polyethylene Glycol 3350 17 Gm Powd.Pack) 17 gm PO DAILY [facility] Last Admin: 07/01/21 10:09 Dose: Not Given Documented by: FRANCISCO Non-Admin Reason: Patient Refused Prednisone (Prednisone 20 Mg Tablet) 40 mg PO DAILY [facility] Last Admin: 07/01/21 10:06 Dose: 40 mg Documented by: FRANCISCO Promethazine HCl (Promethazine Hcl 25 Mg Tablet) 25 mg PO Q8H PRN PRN Reason: Nausea Last Admin: 06/29/21 22:50 Dose: 25 mg Documented by: NELY Trazodone HCl (Trazodone Hcl 100 Mg Tablet) 100 mg PO BEDTIME PRN PRN Reason: Sleep <Kerri Guzman PA-C - Last Filed: 07/01/21 13:42> Labs CBC & Chem 7: : 06/27/21 06:00 06/27/21 06:00 <Kerri Guzman PA-C - Last Filed: 07/01/21 13:42> Labs: Laboratory Results - last 24 hr 06/30/21 06/30/21 07/01/21 15:53 19:59 07:24 POC Glucose 331 H 364 H* 147 H 07/01/21 11:26 POC Glucose 184 H <ALBINO Velasquez Last Filed: 07/01/21 13:42> Procedures Date of Service Date of Service: 07/01/21 <ALBINO Velasquez Last Filed: 07/01/21 13:42> Progress Note: A&P Assessment and plan (1) Abdominal pain: Status: Acute <ALBINO Velasquez Last Filed: 07/01/21 13:42> Plan 50-year-old female patient with a complicated surgical history with 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 Repeat CT scan demonstrated no increasing foci of air. Overall improved per the patient. Her pain persists in the lower abdomen but abd remains very soft without peritoneal signs. Cont IV abx, diet as tolerated. 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 Repeat CT scan demonstrated no increasing foci of air. Overall improved per the patient. Her pain persists in the lower abdomen but abd remains very soft without peritoneal signs. Cont IV abx, diet as tolerated. 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 There is no evidence of free perforation or free air under the diaphragm. Patient's symptoms remain in the lower abdomen although CT demonstrates no evidence of abscess or diverticulitis in the sigmoid colon. Continue IV antibiotics. Possible discharge in the next 24-48 hours. <Alen Freedman MD - Last Filed: 07/01/21 14:25> Fall Risk Details Current Medications: Current Medications Acetaminophen (Acetaminophen 325 Mg Tablet) 650 mg PO Q6H PRN PRN Reason: Pain, Mild (Pain Scale 1-3) Albuterol Sulfate (Albuterol Sulfate (0.083%) 2.5 Mg/3 Ml Vial.Neb) 2.5 mg INHALE Q4H PRN PRN Reason: shortness of breath Last Admin: 06/30/21 23:25 Dose: 2.5 mg Documented by: Albuterol Sulfate (Albuterol Sulfate (0.083%) 2.5 Mg/3 Ml Vial.Neb) 2.5 mg INHALE RQ4H WHILE AWAKE [facility] Last Admin: 07/01/21 11:08 Dose: 2.5 mg Documented by: Albuterol Sulfate (Albuterol Sulfate (0.083%) 2.5 Mg/3 Ml Vial.Neb) 2.5 mg INHALE Q4H PRN PRN Reason: shortness of breath or wheezing Apixaban (Apixaban 5 Mg Tablet) 5 mg PO BID [facility] Last Admin: 07/01/21 10:06 Dose: 5 mg Documented by: Atorvastatin Calcium (Atorvastatin Calcium 10 Mg Tablet) 10 mg PO BEDTIME [facility] Last Admin: 06/30/21 20:24 Dose: 10 mg Documented by: Clonazepam (Clonazepam 1 Mg Tablet) 1 mg PO BID PRN PRN Reason: Anxiety Last Admin: 07/01/21 10:06 Dose: 1 mg Documented by: Dextrose (Dextrose 50 % 25 Gm/50 Ml Syringe) 25 gm IVPUSH Q15M PRN; Protocol PRN Reason: per Hypoglycemia Standing Ord. Docusate Sodium (Docusate Sodium 100 Mg Capsule) 100 mg PO BID [facility] Last Admin: 07/01/21 10:09 Dose: Not Given Documented by: Escitalopram Oxalate (Escitalopram Oxalate 20 Mg Tablet) 20 mg PO DAILY [facility] Last Admin: 07/01/21 10:06 Dose: 20 mg Documented by: Furosemide (Furosemide 40 Mg Tablet) 40 mg PO DAILY [facility]; Protocol Last Admin: 07/01/21 10:03 Dose: 40 mg Documented by: Glucose (Glucose Gel 15 Gm Gel..Gram.) 15 gm PO Q15M PRN; Protocol PRN Reason: per Hypoglycemia Standing Ord. Hydromorphone HCl (Hydromorphone Hcl 1 Mg/Ml Syringe) 0.5 mg IVPUSH Q3H PRN; Protocol PRN Reason: Pain, Severe (Pain Scale 7-10) Last Admin: 07/01/21 12:58 Dose: 0.5 mg Documented by: Piperacillin Sod/Tazobactam (Sod 3.375 gm/ Sodium Chloride) 50 mls @ 100 mls/hr IV Q6H [facility] Last Infusion: 07/01/21 10:46 Dose: Infused Documented by: Insulin Human Lispro (Insulin Lispro 100 Unit/Ml 3 Ml Vial) 0 unit SUBCUT QIDACHS [facility]; Protocol Last Admin: 07/01/21 11:48 Dose: 2 unit Documented by: Lurasidone HCl (Lurasidone Hcl 40 Mg Tablet) 40 mg PO BEDTIME [facility] Last Admin: 06/30/21 20:24 Dose: 40 mg Documented by: Melatonin (Melatonin 3 Mg Tablet) 3 mg PO BEDTIME PRN PRN Reason: Insomnia Ondansetron HCl (Ondansetron Hcl 4 Mg/2 Ml Vial) 4 mg IVPUSH Q8H PRN PRN Reason: Nausea and Vomiting Last Admin: 06/30/21 18:20 Dose: 4 mg Documented by: Oxycodone HCl (Oxycodone Hcl Immed Release 5 Mg Tablet) 5 mg PO Q4H PRN PRN Reason: Pain, Moderate (Pain Scale 4-6 Last Admin: 06/29/21 19:35 Dose: 5 mg Documented by: Oxycodone HCl (Oxycodone Hcl Immed Release 5 Mg Tablet) 10 mg PO Q4H PRN PRN Reason: Pain, Severe (Pain Scale 7-10) Pharmacy Consult (Consult Rx Perform Med Rec) 1 each MISCELLANE ONCE PRN PRN Reason: Consult order Polyethylene Glycol (Polyethylene Glycol 3350 17 Gm Powd.Pack) 17 gm PO DAILY [facility] Last Admin: 07/01/21 10:09 Dose: Not Given Documented by: Prednisone (Prednisone 20 Mg Tablet) 40 mg PO DAILY [facility] Last Admin: 07/01/21 10:06 Dose: 40 mg Documented by: Promethazine HCl (Promethazine Hcl 25 Mg Tablet) 25 mg PO Q8H PRN PRN Reason: Nausea Last Admin: 06/29/21 22:50 Dose: 25 mg Documented by: Trazodone HCl (Trazodone Hcl 100 Mg Tablet) 100 mg PO BEDTIME PRN PRN Reason: Sleep <Kerri Guzman PA-C - Last Filed: 07/01/21 13:42> Time Spent With Patient Time: Total time spent is greater than 50% in coordination of care (as documented) at patient's floor/unit and/or counseling patient: <Kerri Guzman PA-C - Last Filed: 07/01/21 13:42> Quality Stroke Does the patient have a stroke diagnosis?: No <Kerri Guzman PA-C - Last Filed: 07/01/21 13:42> VTE Prior VTE?: Yes <Kerri Guzman PA-C - Last Filed: 07/01/21 13:42> VTE Risk Level:: Surgical - high <Kerri Guzman PA-C - Last Filed: 07/01/21 13:42> VTE Device Contraindication: N/A - Device Ordered <Kerri Guzman PA-C - Last Filed: 07/01/21 13:42> VTE Drug Contraindication: Treatment Not Indicated <Kerri Guzman PA-C - Last Filed: 07/01/21 13:42>
[2021-07-01 16:09] LABS: Glucose, Whole Blood 414 mg/dL (60-115)
--- NOTE | 2021-07-01 16:16 | PC.NURSE ---
1600 PT BLOOD SU[address]AR [address] VILLEGAS NOTIFIED , PT ATE 100% OF A CONTAINER OF HUMMUS WITH PRETZEL CHIPS , A SANDWICH, AND 100% DIET GINGERALE . PT ASKING FOR IV DILAUDID Q3 HOURS , NO GRIMACING NOTED WHEN ASKING FOR PAIN MEDS , PT RINGS EXACTLY WHEN PAIN MEDS ARE DUE. PT RESTING COMFORTABLY IN BED .VSS, NO SHORTNESS OF BREATH NOTED .
[2021-07-01] MEDS: traZODone HCL 100 MG TABLET PO (19:23)
[2021-07-01] MEDS: Atorvastatin Calcium 10 MG TABLET PO (19:23)
[2021-07-01] MEDS: Lurasidone HCl 40 MG TABLET PO (19:23)
[2021-07-01 20:13] LABS: Glucose, Whole Blood 331 mg/dL (60-115)
[2021-07-02] VITALS (10 sets, daily range): BP systolic 101–123; BP diastolic 54–64; PULSE 68–92; RESP 14–22; TEMP 36–37.4; O2SAT 90–98
[2021-07-02] MEDS: HYDROmorphone HCl 1 MG/ML SYRINGE 0.5 MG IVPUSH ×8 (00:04→23:50)
[2021-07-02] MEDS: Piperacillin Sodium/Tazobactam 3.375 GM in 0.9 % Sodium Chloride 50 ML IV ×4 (03:43→20:48)
[2021-07-02] MEDS: Albuterol Sulfate (0.083%) 2.5 MG/3 ML VIAL.NEB INHALE ×4 (07:52→20:18)
[2021-07-02 08:00] LABS: Glucose, Whole Blood 167 mg/dL (60-115)
[2021-07-02] MEDS: Apixaban 5 MG TABLET PO ×2 (08:00→20:47)
[2021-07-02] MEDS: Furosemide 40 MG TABLET PO (08:00)
[2021-07-02] MEDS: clonazePAM 1 MG TABLET PO ×2 (08:00→20:47)
[2021-07-02] MEDS: Escitalopram Oxalate 20 MG TABLET PO (08:00)
[2021-07-02] MEDS: Promethazine HCL 25 MG TABLET PO (08:00)
[2021-07-02] MEDS: predniSONE 20 MG TABLET 40 MG PO (08:00)
[2021-07-02] MEDS: Insulin Lispro 100 UNIT/ML 3 ML VIAL SUBCUT ×5 (08:01→20:47)
--- NOTE | 2021-07-02 09:17 | PM.PNGS ---
Subjective Subjective Date of Service: 07/02/21 <Kerri Guzman PA-C - Last Filed: 07/02/21 09:30> 07/02/21 <Alen Freedman MD - Last Filed: 07/02/21 16:07> Interval history: Feels worse this morning. More pain in the left side, still persists in lower abdomen. Pain worsens when she urinates. <Kerri Guzman PA-C - Last Filed: 07/02/21 09:30> Physical Exam Vital Signs: Vital Signs: Last Vital Signs Temp 97.8 F 07/02/21 07:26 Pulse 68 07/02/21 07:52 Resp 18 07/02/21 07:52 BP 102/60 07/02/21 07:26 Pulse Ox 95 07/02/21 07:26 BMI result Body Mass Index 36.3 <Kerri Guzman PA-C - Last Filed: 07/02/21 09:30> Const: General: no acute distress and alert <Kerri Guzman PA-C - Last Filed: 07/02/21 09:30> Orientation/consciousness: patient oriented x3 <Kerri Guzman PA-C - Last Filed: 07/02/21 09:30> HEENT: Other: trach in place <Kerri Guzman PA-C - Last Filed: 07/02/21 09:30> Resp: Effort & Inspection: normal respiratory effort <Kerri Guzman PA-C - Last Filed: 07/02/21 09:30> GI: Inspection: No distended <Kerri Guzman PA-C - Last Filed: 07/02/21 09:30> Palpation (GI): Soft to palpation and Tenderness to palpation present (GI) (lower abdomen into left flank) <ALBINO Velasquez Last Filed: 07/02/21 09:30> Neuro: General: patient oriented x3 and moves all extremities <ALBINO Velasquez Last Filed: 07/02/21 09:30> Objective Data Active Medications Acetaminophen (Acetaminophen 325 Mg Tablet) 650 mg PO Q6H PRN PRN Reason: Pain, Mild (Pain Scale 1-3) Albuterol Sulfate (Albuterol Sulfate (0.083%) 2.5 Mg/3 Ml Vial.Neb) 2.5 mg INHALE Q4H PRN PRN Reason: shortness of breath Last Admin: 06/30/21 23:25 Dose: 2.5 mg Documented by: PERRY Albuterol Sulfate (Albuterol Sulfate (0.083%) 2.5 Mg/3 Ml Vial.Neb) 2.5 mg INHALE RQ4H WHILE AWAKE [facility] Last Admin: 07/02/21 07:52 Dose: 2.5 mg Documented by: OZZIE Albuterol Sulfate (Albuterol Sulfate (0.083%) 2.5 Mg/3 Ml Vial.Neb) 2.5 mg INHALE Q4H PRN PRN Reason: shortness of breath or wheezing Apixaban (Apixaban 5 Mg Tablet) 5 mg PO BID [facility] Last Admin: 07/02/21 08:00 Dose: 5 mg Documented by: HEATHER Atorvastatin Calcium (Atorvastatin Calcium 10 Mg Tablet) 10 mg PO BEDTIME [facility] Last Admin: 07/01/21 19:23 Dose: 10 mg Documented by: ANTWAN Clonazepam (Clonazepam 1 Mg Tablet) 1 mg PO BID PRN PRN Reason: Anxiety Last Admin: 07/02/21 08:00 Dose: 1 mg Documented by: HEATHER Dextrose (Dextrose 50 % 25 Gm/50 Ml Syringe) 25 gm IVPUSH Q15M PRN; Protocol PRN Reason: per Hypoglycemia Standing Ord. Docusate Sodium (Docusate Sodium 100 Mg Capsule) 100 mg PO BID [facility] Last Admin: 07/02/21 08:01 Dose: Not Given Documented by: HEATHER Non-Admin Reason: Patient Refused Escitalopram Oxalate (Escitalopram Oxalate 20 Mg Tablet) 20 mg PO DAILY [facility] Last Admin: 07/02/21 08:00 Dose: 20 mg Documented by: HEATHER Furosemide (Furosemide 40 Mg Tablet) 40 mg PO DAILY [facility]; Protocol Last Admin: 07/02/21 08:00 Dose: 40 mg Documented by: HEATHER Glucose (Glucose Gel 15 Gm Gel..Gram.) 15 gm PO Q15M PRN; Protocol PRN Reason: per Hypoglycemia Standing Ord. Hydromorphone HCl (Hydromorphone Hcl 1 Mg/Ml Syringe) 0.5 mg IVPUSH Q3H PRN; Protocol PRN Reason: Pain, Severe (Pain Scale 7-10) Piperacillin Sod/Tazobactam (Sod 3.375 gm/ Sodium Chloride) 50 mls @ 100 mls/hr IV Q6H [facility] Last Admin: 07/02/21 08:01 Dose: 100 mls/hr Documented by: HEATHER Insulin Human Lispro (Insulin Lispro 100 Unit/Ml 3 Ml Vial) 0 unit SUBCUT QIDACHS [facility]; Protocol Last Admin: 07/02/21 08:01 Dose: 2 unit Documented by: HEATHER Lurasidone HCl (Lurasidone Hcl 40 Mg Tablet) 40 mg PO BEDTIME [facility] Last Admin: 07/01/21 19:23 Dose: 40 mg Documented by: ANTWAN Melatonin (Melatonin 3 Mg Tablet) 3 mg PO BEDTIME PRN PRN Reason: Insomnia Ondansetron HCl (Ondansetron Hcl 4 Mg/2 Ml Vial) 4 mg IVPUSH Q8H PRN PRN Reason: Nausea and Vomiting Last Admin: 06/30/21 18:20 Dose: 4 mg Documented by: HEATHER Oxycodone HCl (Oxycodone Hcl Immed Release 5 Mg Tablet) 5 mg PO Q4H PRN PRN Reason: Pain, Moderate (Pain Scale 4-6 Last Admin: 06/29/21 19:35 Dose: 5 mg Documented by: NELY Oxycodone HCl (Oxycodone Hcl Immed Release 5 Mg Tablet) 10 mg PO Q4H PRN PRN Reason: Pain, Severe (Pain Scale 7-10) Pharmacy Consult (Consult Rx Perform Med Rec) 1 each MISCELLANE ONCE PRN PRN Reason: Consult order Polyethylene Glycol (Polyethylene Glycol 3350 17 Gm Powd.Pack) 17 gm PO DAILY [facility] Last Admin: 07/02/21 08:02 Dose: Not Given Documented by: HEATHER Non-Admin Reason: Patient Refused Prednisone (Prednisone 20 Mg Tablet) 40 mg PO DAILY [facility] Last Admin: 07/02/21 08:00 Dose: 40 mg Documented by: HEATHER Promethazine HCl (Promethazine Hcl 25 Mg Tablet) 25 mg PO Q8H PRN PRN Reason: Nausea Last Admin: 07/02/21 08:00 Dose: 25 mg Documented by: HEATHER Trazodone HCl (Trazodone Hcl 100 Mg Tablet) 100 mg PO BEDTIME PRN PRN Reason: Sleep Last Admin: 07/01/21 19:23 Dose: 100 mg Documented by: ANTWAN <Kerri Guzman PA-C - Last Filed: 07/02/21 09:30> Labs CBC & Chem 7: : 06/27/21 06:00 06/27/21 06:00 <Kerri Guzman PA-C - Last Filed: 07/02/21 09:30> Labs: Laboratory Results - last 24 hr 07/01/21 07/01/21 07/01/21 11:26 15:58 20:04 POC Glucose 184 H 414 H* 331 H 07/02/21 07:24 POC Glucose 167 H <Kerri Guzman PA-C - Last Filed: 07/02/21 09:30> Microbiology Microbiology Results: Microbiology 06/26/21 22:42 Blood Culture - Final Blood - Venous No growth after 5 days. 06/26/21 21:24 Blood Culture - Final Blood - Venous No growth after 5 days. 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 Patient's symptoms remain in the lower abdomen and left flank. CT demonstrates no evidence of abscess or diverticulitis in the sigmoid colon. She did have a cystoscopy, left stent placement earlier this month for L ureteric stone, sepsis. UA positive for leukocyte esterase, bacteria on admission however has been on antibiotics. Will consult urology to see if stent may be contributing to her pain. Cont IV abx for now. Diet as tolerated. 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 Patient's symptoms remain in the lower abdomen and left flank. CT demonstrates no evidence of abscess or diverticulitis in the sigmoid colon. She did have a cystoscopy, left stent placement earlier this month for L ureteric stone, sepsis. UA positive for leukocyte esterase, bacteria on admission however has been on antibiotics. Will consult urology to see if stent may be contributing to her pain. Cont IV abx for now. Diet as tolerated. Patient with continued pain now radiating more into the left back extending into the left lower quadrant. I am concerned this may be related to the previous urologic procedure therefore agree with urology consultation. Patient is tolerating p.o. and moving her bowels daily. No upper abdominal tenderness elicited. Agree with the above assessment and plan. <Alen Freedman MD - Last Filed: 07/02/21 16:07> Fall Risk Details Current Medications: Current Medications Acetaminophen (Acetaminophen 325 Mg Tablet) 650 mg PO Q6H PRN PRN Reason: Pain, Mild (Pain Scale 1-3) Albuterol Sulfate (Albuterol Sulfate (0.083%) 2.5 Mg/3 Ml Vial.Neb) 2.5 mg INHALE Q4H PRN PRN Reason: shortness of breath Last Admin: 06/30/21 23:25 Dose: 2.5 mg Documented by: Albuterol Sulfate (Albuterol Sulfate (0.083%) 2.5 Mg/3 Ml Vial.Neb) 2.5 mg INHALE RQ4H WHILE AWAKE [facility] Last Admin: 07/02/21 07:52 Dose: 2.5 mg Documented by: Albuterol Sulfate (Albuterol Sulfate (0.083%) 2.5 Mg/3 Ml Vial.Neb) 2.5 mg INHALE Q4H PRN PRN Reason: shortness of breath or wheezing Apixaban (Apixaban 5 Mg Tablet) 5 mg PO BID [facility] Last Admin: 07/02/21 08:00 Dose: 5 mg Documented by: Atorvastatin Calcium (Atorvastatin Calcium 10 Mg Tablet) 10 mg PO BEDTIME [facility] Last Admin: 07/01/21 19:23 Dose: 10 mg Documented by: Clonazepam (Clonazepam 1 Mg Tablet) 1 mg PO BID PRN PRN Reason: Anxiety Last Admin: 07/02/21 08:00 Dose: 1 mg Documented by: Dextrose (Dextrose 50 % 25 Gm/50 Ml Syringe) 25 gm IVPUSH Q15M PRN; Protocol PRN Reason: per Hypoglycemia Standing Ord. Docusate Sodium (Docusate Sodium 100 Mg Capsule) 100 mg PO BID [facility] Last Admin: 07/02/21 08:01 Dose: Not Given Documented by: Escitalopram Oxalate (Escitalopram Oxalate 20 Mg Tablet) 20 mg PO DAILY [facility] Last Admin: 07/02/21 08:00 Dose: 20 mg Documented by: Furosemide (Furosemide 40 Mg Tablet) 40 mg PO DAILY [facility]; Protocol Last Admin: 07/02/21 08:00 Dose: 40 mg Documented by: Glucose (Glucose Gel 15 Gm Gel..Gram.) 15 gm PO Q15M PRN; Protocol PRN Reason: per Hypoglycemia Standing Ord. Hydromorphone HCl (Hydromorphone Hcl 1 Mg/Ml Syringe) 0.5 mg IVPUSH Q3H PRN; Protocol PRN Reason: Pain, Severe (Pain Scale 7-10) Piperacillin Sod/Tazobactam (Sod 3.375 gm/ Sodium Chloride) 50 mls @ 100 mls/hr IV Q6H [facility] Last Admin: 07/02/21 08:01 Dose: 100 mls/hr Documented by: Insulin Human Lispro (Insulin Lispro 100 Unit/Ml 3 Ml Vial) 0 unit SUBCUT QIDACHS [facility]; Protocol Last Admin: 07/02/21 08:01 Dose: 2 unit Documented by: Lurasidone HCl (Lurasidone Hcl 40 Mg Tablet) 40 mg PO BEDTIME [facility] Last Admin: 07/01/21 19:23 Dose: 40 mg Documented by: Melatonin (Melatonin 3 Mg Tablet) 3 mg PO BEDTIME PRN PRN Reason: Insomnia Ondansetron HCl (Ondansetron Hcl 4 Mg/2 Ml Vial) 4 mg IVPUSH Q8H PRN PRN Reason: Nausea and Vomiting Last Admin: 06/30/21 18:20 Dose: 4 mg Documented by: Oxycodone HCl (Oxycodone Hcl Immed Release 5 Mg Tablet) 5 mg PO Q4H PRN PRN Reason: Pain, Moderate (Pain Scale 4-6 Last Admin: 06/29/21 19:35 Dose: 5 mg Documented by: Oxycodone HCl (Oxycodone Hcl Immed Release 5 Mg Tablet) 10 mg PO Q4H PRN PRN Reason: Pain, Severe (Pain Scale 7-10) Pharmacy Consult (Consult Rx Perform Med Rec) 1 each MISCELLANE ONCE PRN PRN Reason: Consult order Polyethylene Glycol (Polyethylene Glycol 3350 17 Gm Powd.Pack) 17 gm PO DAILY [facility] Last Admin: 07/02/21 08:02 Dose: Not Given Documented by: Prednisone (Prednisone 20 Mg Tablet) 40 mg PO DAILY [facility] Last Admin: 07/02/21 08:00 Dose: 40 mg Documented by: Promethazine HCl (Promethazine Hcl 25 Mg Tablet) 25 mg PO Q8H PRN PRN Reason: Nausea Last Admin: 07/02/21 08:00 Dose: 25 mg Documented by: Trazodone HCl (Trazodone Hcl 100 Mg Tablet) 100 mg PO BEDTIME PRN PRN Reason: Sleep Last Admin: 07/01/21 19:23 Dose: 100 mg Documented by: <Kerri Guzman PA-C - Last Filed: 07/02/21 09:30> Time Spent With Patient Time: Total time spent is greater than 50% in coordination of care (as documented) at patient's floor/unit and/or counseling patient: <Kerri Guzman PA-C - Last Filed: 07/02/21 09:30> Quality Stroke Does the patient have a stroke diagnosis?: No <Kerri Guzman PA-C - Last Filed: 07/02/21 09:30> VTE Prior VTE?: Yes <Kerri Guzman PA-C - Last Filed: 07/02/21 09:30> VTE Risk Level:: Surgical - high <ALBINO Velasquez Last Filed: 07/02/21 09:30> VTE Device Contraindication: N/A - Device Ordered <Kerri Guzman PA-C - Last Filed: 07/02/21 09:30> VTE Drug Contraindication: Treatment Not Indicated <Kerri Guzman PA-C - Last Filed: 07/02/21 09:30>
[2021-07-02 11:41] LABS: Glucose, Whole Blood 253 mg/dL (60-115)
[2021-07-02] MEDS: oxyCODONE HCl Immed Release 5 MG TABLET 10 MG PO (12:15)
[2021-07-02] MEDS: Tamsulosin HCL 0.4 MG CAPSULE PO (13:31)
[2021-07-02 16:28] LABS: Glucose, Whole Blood 434 mg/dL (60-115)
--- NOTE | 2021-07-02 17:34 | PC.NURSE ---
pt brought pt leonila jackson from [facility] , pt and educated better food choices , pt states she wont eat the food here because she doesn't like it . blood sugar was 434 , 5 extra units of insulin given per md order
[2021-07-02 20:40] LABS: Glucose, Whole Blood 327 mg/dL (60-115)
[2021-07-02] MEDS: Atorvastatin Calcium 10 MG TABLET PO (20:47)
[2021-07-02] MEDS: Lurasidone HCl 40 MG TABLET PO (20:47)
[2021-07-02] MEDS: traZODone HCL 100 MG TABLET PO (20:47)
[2021-07-03] VITALS (11 sets, daily range): BP systolic 81–138; BP diastolic 49–79; PULSE 66–89; RESP 16–18; TEMP 35.4–37; O2SAT 95–98
[2021-07-03] MEDS: HYDROmorphone HCl 1 MG/ML SYRINGE 0.5 MG IVPUSH ×7 (03:57→23:43)
[2021-07-03] MEDS: Piperacillin Sodium/Tazobactam 3.375 GM in 0.9 % Sodium Chloride 50 ML IV ×4 (03:57→20:14)
[2021-07-03 07:30] LABS: Glucose, Whole Blood 178 mg/dL (60-115)
[2021-07-03 07:50] LABS: Hematocrit 29.1 % (37.0-47.0); Hemoglobin 8.8 g/dl (12.0-16.0); Mean Corpuscular HGB Conc 30.2 g/dl (31.0-35.0); Mean Corpuscular Hemoglobin 26.8 pg (27.0-33.0); Mean Corpuscular Volume 88.7 fL (80.0-98.0); Mean Platelet Volume 9.7 fL (9.4-12.3); Platelet Count 317 X10*3/uL (160-400); Red Blood Count 3.28 X10*6/uL (4.20-5.50); Red Cell Distribution Width 14.6 % (11.0-16.0); White Blood Count 5.3 X10*3/uL (4.8-10.8)
[2021-07-03] MEDS: Furosemide 40 MG TABLET PO (07:58)
[2021-07-03] MEDS: Tamsulosin HCL 0.4 MG CAPSULE PO (07:59)
[2021-07-03] MEDS: Apixaban 5 MG TABLET PO ×2 (07:59→20:14)
[2021-07-03] MEDS: predniSONE 20 MG TABLET 40 MG PO (07:59)
[2021-07-03] MEDS: Escitalopram Oxalate 20 MG TABLET PO (08:00)
[2021-07-03] MEDS: Albuterol Sulfate (0.083%) 2.5 MG/3 ML VIAL.NEB INHALE ×4 (08:04→20:03)
[2021-07-03 08:16] LABS: Alanine Aminotransferase 24 U/L (0-31); Albumin Level 2.8 g/dL (3.5-5.0); Alkaline Phosphatase 334 U/L (39-117); Amylase 20 U/L (28-100); Aspartate Amino Transferase 33 U/L (5-31); Bilirubin Direct < 0.2 mg/dL (0.0-0.5); Bilirubin Total 0.3 mg/dL (0.0-1.0); Blood Urea Nitrogen 10 mg/dL (9-16); Creatinine Clr Calc Pharmacy 60.5; Estimated Glomerular Filt Rate 48; Glucose Random 175 mg/dL (60-115); Total Protein 6.1 g/dL (6.5-8.0)
[2021-07-03 08:27] LABS: Anion Gap 10 (12-20); Carbon Dioxide 35 mmol/L (22-29); Chloride 99 mmol/L (96-108); Potassium 3.1 mmol/L (3.3-5.1); Sodium 141 mmol/L (135-145)
[2021-07-03] MEDS: clonazePAM 1 MG TABLET PO (08:53)
[2021-07-03] MEDS: iohexoL 350 MG/ML 100 ML INFUS..BTL 85 ML IV (09:30)
--- NOTE | 2021-07-03 10:20 | P.PNGS_ITS ---
Subjective Subjective Date of Service: 07/03/21 <Kerri Guzman PA-C - Last Filed: 07/03/21 10:24> 07/03/21 <Alen Freedman MD - Last Filed: 07/03/21 13:43> Interval history: Continues to c/o severe lower abdominal pain and left flank. Has not improved with medications started by urology yesterday. Continues to tolerate solid food, move bowels. <Kerri Guzman PA-C - Last Filed: 07/03/21 10:24> Physical Exam Vital Signs: Vital Signs: Last Vital Signs Temp 98.6 F 07/03/21 08:00 Pulse 88 07/03/21 08:04 Resp 18 07/03/21 08:04 BP 133/72 07/03/21 08:00 Pulse Ox 98 07/03/21 08:00 BMI result Body Mass Index 36.3 <Kerri Guzman PA-C - Last Filed: 07/03/21 10:24> Const: General: no acute distress and alert <Kerri Guzman PA-C - Last Filed: 07/03/21 10:24> GI: Inspection: No distended <ALBINO Velasquez Last Filed: 07/03/21 10:24> Palpation (GI): Soft to palpation, Tenderness to palpation present (GI) (lower abdomen), no guarding and not rigid <Kerri Guzman PA-C - Last Filed: 07/03/21 10:24> Percussion: Yes normal to percussion <Kerri Guzman PA-C - Last Filed: 07/03/21 10:24> Skin: General skin exam: no rashes or lesions noted <ALBINO Velasquez Last Filed: 07/03/21 10:24> Objective Data Active Medications Acetaminophen (Acetaminophen 325 Mg Tablet) 650 mg PO Q6H PRN PRN Reason: Pain, Mild (Pain Scale 1-3) Albuterol Sulfate (Albuterol Sulfate (0.083%) 2.5 Mg/3 Ml Vial.Neb) 2.5 mg INHALE Q4H PRN PRN Reason: shortness of breath Last Admin: 06/30/21 23:25 Dose: 2.5 mg Documented by: PERRY Albuterol Sulfate (Albuterol Sulfate (0.083%) 2.5 Mg/3 Ml Vial.Neb) 2.5 mg INHALE RQ4H WHILE AWAKE [facility] Last Admin: 07/03/21 08:04 Dose: 2.5 mg Documented by: FIDE Albuterol Sulfate (Albuterol Sulfate (0.083%) 2.5 Mg/3 Ml Vial.Neb) 2.5 mg INHALE Q4H PRN PRN Reason: shortness of breath or wheezing Apixaban (Apixaban 5 Mg Tablet) 5 mg PO BID [facility] Last Admin: 07/03/21 07:59 Dose: 5 mg Documented by: ARMIN Atorvastatin Calcium (Atorvastatin Calcium 10 Mg Tablet) 10 mg PO BEDTIME [facility] Last Admin: 07/02/21 20:47 Dose: 10 mg Documented by: ANTWAN Clonazepam (Clonazepam 1 Mg Tablet) 1 mg PO BID PRN PRN Reason: Anxiety Last Admin: 07/03/21 08:53 Dose: 1 mg Documented by: ARMIN Dextrose (Dextrose 50 % 25 Gm/50 Ml Syringe) 25 gm IVPUSH Q15M PRN; Protocol PRN Reason: per Hypoglycemia Standing Ord. Escitalopram Oxalate (Escitalopram Oxalate 20 Mg Tablet) 20 mg PO DAILY [facility] Last Admin: 07/03/21 08:00 Dose: 20 mg Documented by: ARMIN Furosemide (Furosemide 40 Mg Tablet) 40 mg PO DAILY [facility]; Protocol Last Admin: 07/03/21 07:58 Dose: 40 mg Documented by: ARMIN Glucose (Glucose Gel 15 Gm Gel..Gram.) 15 gm PO Q15M PRN; Protocol PRN Reason: per Hypoglycemia Standing Ord. Hydromorphone HCl (Hydromorphone Hcl 1 Mg/Ml Syringe) 0.5 mg IVPUSH Q3H PRN; Protocol PRN Reason: Pain, Severe (Pain Scale 7-10) Last Admin: 07/03/21 07:57 Dose: 0.5 mg Documented by: ARMIN Piperacillin Sod/Tazobactam (Sod 3.375 gm/ Sodium Chloride) 50 mls @ 100 mls/hr IV Q6H [facility] Last Infusion: 07/03/21 08:44 Dose: 0 mls/hr Documented by: ARMIN Insulin Human Lispro (Insulin Lispro 100 Unit/Ml 3 Ml Vial) 0 unit SUBCUT QIDACHS [facility]; Protocol Last Admin: 07/03/21 07:59 Dose: Not Given Documented by: ARMIN Non-Admin Reason: npo for ct Lurasidone HCl (Lurasidone Hcl 40 Mg Tablet) 40 mg PO BEDTIME [facility] Last Admin: 07/02/21 20:47 Dose: 40 mg Documented by: ANTWAN Melatonin (Melatonin 3 Mg Tablet) 3 mg PO BEDTIME PRN PRN Reason: Insomnia Ondansetron HCl (Ondansetron Hcl 4 Mg/2 Ml Vial) 4 mg IVPUSH Q8H PRN PRN Reason: Nausea and Vomiting Last Admin: 06/30/21 18:20 Dose: 4 mg Documented by: HEATHER Oxybutynin Chloride (Oxybutynin Chloride Er 5 Mg Tab.Er.24) 5 mg PO DAILY [facility] Last Admin: 07/03/21 07:59 Dose: 5 mg Documented by: ARMIN Oxycodone HCl (Oxycodone Hcl Immed Release 5 Mg Tablet) 5 mg PO Q4H PRN PRN Reason: Pain, Moderate (Pain Scale 4-6 Last Admin: 06/29/21 19:35 Dose: 5 mg Documented by: NELY Oxycodone HCl (Oxycodone Hcl Immed Release 5 Mg Tablet) 10 mg PO Q4H PRN PRN Reason: Pain, Severe (Pain Scale 7-10) Last Admin: 07/02/21 12:15 Dose: 10 mg Documented by: HEATHER Pharmacy Consult (Consult Rx Perform Med Rec) 1 each MISCELLANE ONCE PRN PRN Reason: Consult order Polyethylene Glycol (Polyethylene Glycol 3350 17 Gm Powd.Pack) 17 gm PO DAILY [facility] Last Admin: 07/03/21 08:50 Dose: Not Given Documented by: ARMIN Non-Admin Reason: Patient Refused Prednisone (Prednisone 20 Mg Tablet) 40 mg PO DAILY [facility] Last Admin: 07/03/21 07:59 Dose: 40 mg Documented by: ARMIN Promethazine HCl (Promethazine Hcl 25 Mg Tablet) 25 mg PO Q8H PRN PRN Reason: Nausea Last Admin: 07/02/21 08:00 Dose: 25 mg Documented by: HEATHER Tamsulosin HCl (Tamsulosin Hcl 0.4 Mg Capsule) 0.4 mg PO DAILY [facility] Last Admin: 07/03/21 07:59 Dose: 0.4 mg Documented by: ARMIN Trazodone HCl (Trazodone Hcl 100 Mg Tablet) 100 mg PO BEDTIME PRN PRN Reason: Sleep Last Admin: 07/02/21 20:47 Dose: 100 mg Documented by: ANTWAN <Kerri Guzman PA-C - Last Filed: 07/03/21 10:24> Labs CBC & Chem 7: : 07/03/21 07:37 07/03/21 07:37 <Kerri Guzman PA-C - Last Filed: 07/03/21 10:24> Labs: Laboratory Results - last 24 hr 07/02/21 07/02/21 07/02/21 11:32 16:16 20:14 MCV MCH MCHC RDW Plt Count MPV Absolute Nucleated RBC Nucleated RBC % (auto) Anion Gap Estim Creat Clear Calc Estimated GFR POC Glucose 253 H 434 H* 327 H Random Glucose Calcium Total Bilirubin Direct Bilirubin AST ALT Alkaline Phosphatase Total Protein Albumin Amylase 07/03/21 07/03/21 07/03/21 07:21 07:37 07:37 MCV 88.7 MCH 26.8 L MCHC 30.2 L RDW 14.6 Plt Count 317 D MPV 9.7 Absolute Nucleated RBC 0.000 Nucleated RBC % (auto) 0.0 Anion Gap 10 L Estim Creat Clear Calc 60.5 Estimated GFR 48 POC Glucose 178 H Random Glucose 175 H Calcium 8.0 L Total Bilirubin 0.3 Direct Bilirubin < 0.2 AST 33 H ALT 24 Alkaline Phosphatase 334 H D Total Protein 6.1 L Albumin 2.8 L Amylase 20 L <Kerri Guzman PA-C - Last Filed: 07/03/21 10:24> Procedures Date of Service Date of Service: 07/03/21 <ALBINO Velasquez Last Filed: 07/03/21 10:24> Progress Note: A&P Assessment and plan (1) Abdominal pain: Status: Acute <ALBINO Velasquez Last Filed: 07/03/21 10:24> Plan 50-year-old female patient with a complicated surgical history with 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 Patient's symptoms remain in the lower abdomen and left flank. CT demonstrates no evidence of abscess or diverticulitis in the sigmoid colon. She did have a cystoscopy, left stent placement earlier this month for L ureteric stone, sepsis. Urology consulted yesterday who started patient on oxybutynin and tamsulosin for possible ureteric spasm yesterday. No improvement in pain. Will repeat CT scan abd pelvis today. Cont IV abx for now. 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 Patient's symptoms remain in the lower abdomen and left flank. CT demonstrates no evidence of abscess or diverticulitis in the sigmoid colon. She did have a cystoscopy, left stent placement earlier this month for L ureteric stone, sepsis. Urology consulted yesterday who started patient on oxybutynin and tamsulosin for possible ureteric spasm yesterday. No improvement in pain. Will repeat CT scan abd pelvis today. Cont IV abx for now. Patient with continued abdominal pain mainly in the left upper back extending in to the left lower quadrant. Repeat laboratories today revealed a normal WBC. Repeat CT obtained today. Final reading pending however continued air noted in the region of prior pancreatic surgery. No abscess seen. Will await final read. Appreciate Dr. Sr's assistance with diabetes management. Patient will need follow-up with her [facility] surgeon regarding pancreatic air collection and fistula once discharged. <Alen Freedman MD - Last Filed: 07/03/21 13:43> Fall Risk Details Current Medications: Current Medications Acetaminophen (Acetaminophen 325 Mg Tablet) 650 mg PO Q6H PRN PRN Reason: Pain, Mild (Pain Scale 1-3) Albuterol Sulfate (Albuterol Sulfate (0.083%) 2.5 Mg/3 Ml Vial.Neb) 2.5 mg INHALE Q4H PRN PRN Reason: shortness of breath Last Admin: 06/30/21 23:25 Dose: 2.5 mg Documented by: Albuterol Sulfate (Albuterol Sulfate (0.083%) 2.5 Mg/3 Ml Vial.Neb) 2.5 mg INHALE RQ4H WHILE AWAKE [facility] Last Admin: 07/03/21 08:04 Dose: 2.5 mg Documented by: Albuterol Sulfate (Albuterol Sulfate (0.083%) 2.5 Mg/3 Ml Vial.Neb) 2.5 mg INHALE Q4H PRN PRN Reason: shortness of breath or wheezing Apixaban (Apixaban 5 Mg Tablet) 5 mg PO BID [facility] Last Admin: 07/03/21 07:59 Dose: 5 mg Documented by: Atorvastatin Calcium (Atorvastatin Calcium 10 Mg Tablet) 10 mg PO BEDTIME [facility] Last Admin: 07/02/21 20:47 Dose: 10 mg Documented by: Clonazepam (Clonazepam 1 Mg Tablet) 1 mg PO BID PRN PRN Reason: Anxiety Last Admin: 07/03/21 08:53 Dose: 1 mg Documented by: Dextrose (Dextrose 50 % 25 Gm/50 Ml Syringe) 25 gm IVPUSH Q15M PRN; Protocol PRN Reason: per Hypoglycemia Standing Ord. Escitalopram Oxalate (Escitalopram Oxalate 20 Mg Tablet) 20 mg PO DAILY [facility] Last Admin: 07/03/21 08:00 Dose: 20 mg Documented by: Furosemide (Furosemide 40 Mg Tablet) 40 mg PO DAILY [facility]; Protocol Last Admin: 07/03/21 07:58 Dose: 40 mg Documented by: Glucose (Glucose Gel 15 Gm Gel..Gram.) 15 gm PO Q15M PRN; Protocol PRN Reason: per Hypoglycemia Standing Ord. Hydromorphone HCl (Hydromorphone Hcl 1 Mg/Ml Syringe) 0.5 mg IVPUSH Q3H PRN; Protocol PRN Reason: Pain, Severe (Pain Scale 7-10) Last Admin: 07/03/21 07:57 Dose: 0.5 mg Documented by: Piperacillin Sod/Tazobactam (Sod 3.375 gm/ Sodium Chloride) 50 mls @ 100 mls/hr IV Q6H [facility] Last Infusion: 07/03/21 08:44 Dose: Infused Documented by: Insulin Human Lispro (Insulin Lispro 100 Unit/Ml 3 Ml Vial) 0 unit SUBCUT QIDACHS [facility]; Protocol Last Admin: 07/03/21 07:59 Dose: Not Given Documented by: Lurasidone HCl (Lurasidone Hcl 40 Mg Tablet) 40 mg PO BEDTIME [facility] Last Admin: 07/02/21 20:47 Dose: 40 mg Documented by: Melatonin (Melatonin 3 Mg Tablet) 3 mg PO BEDTIME PRN PRN Reason: Insomnia Ondansetron HCl (Ondansetron Hcl 4 Mg/2 Ml Vial) 4 mg IVPUSH Q8H PRN PRN Reason: Nausea and Vomiting Last Admin: 06/30/21 18:20 Dose: 4 mg Documented by: Oxybutynin Chloride (Oxybutynin Chloride Er 5 Mg Tab.Er.24) 5 mg PO DAILY [facility] Last Admin: 07/03/21 07:59 Dose: 5 mg Documented by: Oxycodone HCl (Oxycodone Hcl Immed Release 5 Mg Tablet) 5 mg PO Q4H PRN PRN Reason: Pain, Moderate (Pain Scale 4-6 Last Admin: 06/29/21 19:35 Dose: 5 mg Documented by: Oxycodone HCl (Oxycodone Hcl Immed Release 5 Mg Tablet) 10 mg PO Q4H PRN PRN Reason: Pain, Severe (Pain Scale 7-10) Last Admin: 07/02/21 12:15 Dose: 10 mg Documented by: Pharmacy Consult (Consult Rx Perform Med Rec) 1 each MISCELLANE ONCE PRN PRN Reason: Consult order Polyethylene Glycol (Polyethylene Glycol 3350 17 Gm Powd.Pack) 17 gm PO DAILY [facility] Last Admin: 07/03/21 08:50 Dose: Not Given Documented by: Prednisone (Prednisone 20 Mg Tablet) 40 mg PO DAILY [facility] Last Admin: 07/03/21 07:59 Dose: 40 mg Documented by: Promethazine HCl (Promethazine Hcl 25 Mg Tablet) 25 mg PO Q8H PRN PRN Reason: Nausea Last Admin: 07/02/21 08:00 Dose: 25 mg Documented by: Tamsulosin HCl (Tamsulosin Hcl 0.4 Mg Capsule) 0.4 mg PO DAILY [facility] Last Admin: 07/03/21 07:59 Dose: 0.4 mg Documented by: Trazodone HCl (Trazodone Hcl 100 Mg Tablet) 100 mg PO BEDTIME PRN PRN Reason: Sleep Last Admin: 07/02/21 20:47 Dose: 100 mg Documented by: <Kerri Guzman PA-C - Last Filed: 07/03/21 10:24> Time Spent With Patient Time: Total time spent is greater than 50% in coordination of care (as documented) at patient's floor/unit and/or counseling patient: <Kerri Guzman PA-C - Last Filed: 07/03/21 10:24> No Severe Sepsis: No Severe Sepsis <Alen Freedman MD - Last Filed: 07/03/21 13:43> Quality Stroke Does the patient have a stroke diagnosis?: No <Kerri Guzman PA-C - Last Filed: 07/03/21 10:24> VTE Prior VTE?: Yes <Kerri Guzman PA-C - Last Filed: 07/03/21 10:24> VTE Risk Level:: Surgical - high <Kerri Guzman PA-C - Last Filed: 07/03/21 10:24> VTE Device Contraindication: N/A - Device Ordered <Kerri Guzman PA-C - Last Filed: 07/03/21 10:24> VTE Drug Contraindication: Treatment Not Indicated <Kerri Guzman PA-C - Last Filed: 07/03/21 10:24>
--- NOTE | 2021-07-03 10:34 | P.PNIM_ITS ---
Subjective Subjective Date of Service: 07/03/21 Interval History: No acute events overnight. Review of notes. .. Patient with ongoing abdominal pain. Tolerating diet. CT of abdomen pelvis done results pending Review of Systems Denies chest pain Denies shortness of breath Denies nausea vomiting diarrhea Denies fever chills Physical Exam Vital Signs: Vital Signs: Last Vital Signs Temp 98.6 F 07/03/21 08:00 Pulse 88 07/03/21 08:04 Resp 18 07/03/21 08:04 BP 133/72 07/03/21 08:00 Pulse Ox 98 07/03/21 08:00 BMI result Body Mass Index 36.3 Const: Other: Awake alert no acute distress Resp: Other: Clear to auscultation bilaterally no rales rhonchi wheezes Cardio: Other: No S4; positive S1-S2; no S3 murmurs rubs gallops GI: Other: Soft nondistended; bowel sounds x4 quadrants. Minimal tenderness across lower abdomen without overt peritoneal signs Extrem: Other: No edema bilateral Objective Data Active Medications Acetaminophen (Acetaminophen 325 Mg Tablet) 650 mg PO Q6H PRN PRN Reason: Pain, Mild (Pain Scale 1-3) Albuterol Sulfate (Albuterol Sulfate (0.083%) 2.5 Mg/3 Ml Vial.Neb) 2.5 mg INHALE Q4H PRN PRN Reason: shortness of breath Last Admin: 06/30/21 23:25 Dose: 2.5 mg Documented by: PERRY Albuterol Sulfate (Albuterol Sulfate (0.083%) 2.5 Mg/3 Ml Vial.Neb) 2.5 mg INHALE RQ4H WHILE AWAKE [facility] Last Admin: 07/03/21 08:04 Dose: 2.5 mg Documented by: FIDE Albuterol Sulfate (Albuterol Sulfate (0.083%) 2.5 Mg/3 Ml Vial.Neb) 2.5 mg INHALE Q4H PRN PRN Reason: shortness of breath or wheezing Apixaban (Apixaban 5 Mg Tablet) 5 mg PO BID [facility] Last Admin: 07/03/21 07:59 Dose: 5 mg Documented by: ARMIN Atorvastatin Calcium (Atorvastatin Calcium 10 Mg Tablet) 10 mg PO BEDTIME [facility] Last Admin: 07/02/21 20:47 Dose: 10 mg Documented by: ANTWAN Clonazepam (Clonazepam 1 Mg Tablet) 1 mg PO BID PRN PRN Reason: Anxiety Last Admin: 07/03/21 08:53 Dose: 1 mg Documented by: ARMIN Dextrose (Dextrose 50 % 25 Gm/50 Ml Syringe) 25 gm IVPUSH Q15M PRN; Protocol PRN Reason: per Hypoglycemia Standing Ord. Escitalopram Oxalate (Escitalopram Oxalate 20 Mg Tablet) 20 mg PO DAILY [facility] Last Admin: 07/03/21 08:00 Dose: 20 mg Documented by: ARMIN Furosemide (Furosemide 40 Mg Tablet) 40 mg PO DAILY [facility]; Protocol Last Admin: 07/03/21 07:58 Dose: 40 mg Documented by: ARMIN Glucose (Glucose Gel 15 Gm Gel..Gram.) 15 gm PO Q15M PRN; Protocol PRN Reason: per Hypoglycemia Standing Ord. Hydromorphone HCl (Hydromorphone Hcl 1 Mg/Ml Syringe) 0.5 mg IVPUSH Q3H PRN; Protocol PRN Reason: Pain, Severe (Pain Scale 7-10) Last Admin: 07/03/21 07:57 Dose: 0.5 mg Documented by: ARMIN Piperacillin Sod/Tazobactam (Sod 3.375 gm/ Sodium Chloride) 50 mls @ 100 mls/hr IV Q6H [facility] Last Infusion: 07/03/21 08:44 Dose: 0 mls/hr Documented by: ARMIN Insulin Human Lispro (Insulin Lispro 100 Unit/Ml 3 Ml Vial) 0 unit SUBCUT QIDACHS [facility]; Protocol Last Admin: 07/03/21 07:59 Dose: Not Given Documented by: ARMIN Non-Admin Reason: npo for ct Lurasidone HCl (Lurasidone Hcl 40 Mg Tablet) 40 mg PO BEDTIME [facility] Last Admin: 07/02/21 20:47 Dose: 40 mg Documented by: ANTWAN Melatonin (Melatonin 3 Mg Tablet) 3 mg PO BEDTIME PRN PRN Reason: Insomnia Ondansetron HCl (Ondansetron Hcl 4 Mg/2 Ml Vial) 4 mg IVPUSH Q8H PRN PRN Reason: Nausea and Vomiting Last Admin: 06/30/21 18:20 Dose: 4 mg Documented by: HEATHER Oxybutynin Chloride (Oxybutynin Chloride Er 5 Mg Tab.Er.24) 5 mg PO DAILY [facility] Last Admin: 07/03/21 07:59 Dose: 5 mg Documented by: ARMIN Oxycodone HCl (Oxycodone Hcl Immed Release 5 Mg Tablet) 5 mg PO Q4H PRN PRN Reason: Pain, Moderate (Pain Scale 4-6 Last Admin: 06/29/21 19:35 Dose: 5 mg Documented by: NELY Oxycodone HCl (Oxycodone Hcl Immed Release 5 Mg Tablet) 10 mg PO Q4H PRN PRN Reason: Pain, Severe (Pain Scale 7-10) Last Admin: 07/02/21 12:15 Dose: 10 mg Documented by: HEATHER Pharmacy Consult (Consult Rx Perform Med Rec) 1 each MISCELLANE ONCE PRN PRN Reason: Consult order Polyethylene Glycol (Polyethylene Glycol 3350 17 Gm Powd.Pack) 17 gm PO DAILY [facility] Last Admin: 07/03/21 08:50 Dose: Not Given Documented by: ARMIN Non-Admin Reason: Patient Refused Prednisone (Prednisone 20 Mg Tablet) 40 mg PO DAILY [facility] Last Admin: 07/03/21 07:59 Dose: 40 mg Documented by: ARMIN Promethazine HCl (Promethazine Hcl 25 Mg Tablet) 25 mg PO Q8H PRN PRN Reason: Nausea Last Admin: 07/02/21 08:00 Dose: 25 mg Documented by: HEATHER Tamsulosin HCl (Tamsulosin Hcl 0.4 Mg Capsule) 0.4 mg PO DAILY [facility] Last Admin: 07/03/21 07:59 Dose: 0.4 mg Documented by: ARMIN Trazodone HCl (Trazodone Hcl 100 Mg Tablet) 100 mg PO BEDTIME PRN PRN Reason: Sleep Last Admin: 07/02/21 20:47 Dose: 100 mg Documented by: ANTWAN Labs CBC & Chem 7: 07/03/21 07:37 07/03/21 07:37 Labs: Laboratory Results - last 24 hr 07/02/21 07/02/21 07/02/21 11:32 16:16 20:14 MCV MCH MCHC RDW Plt Count MPV Absolute Nucleated RBC Nucleated RBC % (auto) Anion Gap Estim Creat Clear Calc Estimated GFR POC Glucose 253 H 434 H* 327 H Random Glucose Calcium Total Bilirubin Direct Bilirubin AST ALT Alkaline Phosphatase Total Protein Albumin Amylase 07/03/21 07/03/21 07/03/21 07:21 07:37 07:37 MCV 88.7 MCH 26.8 L MCHC 30.2 L RDW 14.6 Plt Count 317 D MPV 9.7 Absolute Nucleated RBC 0.000 Nucleated RBC % (auto) 0.0 Anion Gap 10 L Estim Creat Clear Calc 60.5 Estimated GFR 48 POC Glucose 178 H Random Glucose 175 H Calcium 8.0 L Total Bilirubin 0.3 Direct Bilirubin < 0.2 AST 33 H ALT 24 Alkaline Phosphatase 334 H D Total Protein 6.1 L Albumin 2.8 L Amylase 20 L Assessment and Plan (1) Abdominal pain: Status: Acute (2) Diabetes: Status: Acute (3) Takotsubo cardiomyopathy: Status: Acute Plan 50-year-old female patient with a complicated surgical history with previous ne crotizing pancreatitis requiring multiple surgical procedures found to have small amount of air bubbles at the site of previous pancreatitis 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 Asked to follow for poorly controlled POCs. Discussed with staff who states patient has a significant dietary indiscretion . 1.DMII -will restart Metformin -encourage dietary restraint -continue Lispro correctional scale -add back glyburide as appropriate 2.Hx PE/DVT -asymptomatic -continue Eliquis to 5 mg b.i.d. 3.Tracheal stenosis/tracheomalacia/ asthma -trach mask -supplemental nebs p.r.n. 4.Takotsubo cardiomyopathy -EF 25-30% per notes from [facility] -lasix as ordered 5.BPD 1 -latuda, oxcarbazepine, trazodone, clonazepam DVT prophylaxis:Eliquis? Code status: Full code Quality Stroke Does the patient have a stroke diagnosis?: No VTE Prior VTE?: Yes VTE Risk Level:: Surgical - high VTE Device Contraindication: N/A - Device Ordered VTE Drug Contraindication: Treatment Not Indicated
[2021-07-03] MEDS: oxyCODONE HCl Immed Release 5 MG TABLET 10 MG PO (10:43)
[2021-07-03 11:37] LABS: Glucose, Whole Blood 361 mg/dL (60-115)
[2021-07-03] MEDS: Insulin Lispro 100 UNIT/ML 3 ML VIAL SUBCUT ×4 (12:41→20:47)
[2021-07-03 16:28] LABS: Glucose, Whole Blood 334 mg/dL (60-115)
[2021-07-03] MEDS: Potassium Chloride ER 20 MEQ TAB.ER.PRT 40 MEQ PO (19:24)
[2021-07-03] MEDS: Promethazine HCL 25 MG TABLET PO (20:14)
[2021-07-03] MEDS: Lurasidone HCl 40 MG TABLET PO (20:14)
[2021-07-03] MEDS: Atorvastatin Calcium 10 MG TABLET PO (20:14)
[2021-07-03 20:31] LABS: Glucose, Whole Blood 295 mg/dL (60-115)
[2021-07-04] VITALS (10 sets, daily range): BP systolic 127–143; BP diastolic 71–79; PULSE 71–94; RESP 14–22; TEMP 36.2–36.4; O2SAT 90–100
[2021-07-04] MEDS: HYDROmorphone HCl 1 MG/ML SYRINGE 0.5 MG IVPUSH ×6 (02:50→21:44)
[2021-07-04] MEDS: Piperacillin Sodium/Tazobactam 3.375 GM in 0.9 % Sodium Chloride 50 ML IV ×4 (02:52→21:46)
[2021-07-04 06:04] LABS: MANUAL DIFF FLAG NO
[2021-07-04 06:18] LABS: Basophils Percent Auto 0.4 % (0-2); Eosinophils Percent Auto 0.7 % (0-4); Hematocrit 30.1 % (37.0-47.0); Hemoglobin 9.4 g/dl (12.0-16.0); Imm Gran Abs Auto 0.03 X10*3/uL (0.00-0.03); Imm Gran Pct Auto 0.6 % (0.0-0.4); Lymphocytes Absolute Auto 1.1 X10*3/uL (1.2-4.9); Lymphocytes Percent Auto 20.8 % (20-40); Mean Corpuscular HGB Conc 31.2 g/dl (31.0-35.0); Mean Corpuscular Hemoglobin 27.6 pg (27.0-33.0); Mean Corpuscular Volume 88.3 fL (80.0-98.0); Mean Platelet Volume 10.2 fL (9.4-12.3); Monocytes Absolute Auto 0.4 X10*3/uL (0.1-1.2); Neutrophils Absolute Auto 3.8 x10*3/uL (2.0-8.3); Neutrophils Percent Auto 70.5 % (45-73); Platelet Count 342 X10*3/uL (160-400); Red Blood Count 3.41 X10*6/uL (4.20-5.50); Red Cell Distribution Width 14.5 % (11.0-16.0); White Blood Count 5.4 X10*3/uL (4.8-10.8)
[2021-07-04 06:50] LABS: Alanine Aminotransferase 31 U/L (0-31); Alkaline Phosphatase 387 U/L (39-117); Anion Gap 10 (12-20); Aspartate Amino Transferase 45 U/L (5-31); Bilirubin Total 0.4 mg/dL (0.0-1.0); Blood Urea Nitrogen 11 mg/dL (9-16); Calcium 8.5 mg/dL (8.4-10.2); Carbon Dioxide 36 mmol/L (22-29); Chloride 97 mmol/L (96-108); Creatinine Clr Calc Pharmacy 77.5; Estimated Glomerular Filt Rate > 60; Glucose Fasting 166 mg/dL (60-99); Potassium 3.5 mmol/L (3.3-5.1); Sodium 139 mmol/L (135-145); Total Protein 6.4 g/dL (6.5-8.0)
[2021-07-04 07:38] LABS: Glucose, Whole Blood 134 mg/dL (60-115)
[2021-07-04] MEDS: Albuterol Sulfate (0.083%) 2.5 MG/3 ML VIAL.NEB INHALE ×4 (08:08→20:05)
[2021-07-04] MEDS: Tamsulosin HCL 0.4 MG CAPSULE PO (09:00)
[2021-07-04] MEDS: metFORMIN HCl ER 500 MG TAB.ER.24H 1000 MG PO (09:00)
[2021-07-04] MEDS: Escitalopram Oxalate 20 MG TABLET PO (09:00)
[2021-07-04] MEDS: Furosemide 40 MG TABLET PO (09:01)
[2021-07-04] MEDS: predniSONE 20 MG TABLET 40 MG PO (09:01)
[2021-07-04] MEDS: Apixaban 5 MG TABLET PO ×2 (09:01→21:48)
[2021-07-04 11:08] LABS: Glucose, Whole Blood 316 mg/dL (60-115)
[2021-07-04] MEDS: Insulin Lispro 100 UNIT/ML 3 ML VIAL SUBCUT ×3 (11:15→21:47)
--- NOTE | 2021-07-04 12:37 | HO.PM.IMPN ---
Subjective Subjective Date of Service: 07/04/21 Interval History: No acute issues overnight. Still complaining of diffuse lower abdominal pain Review of Systems Denies chest pain Denies shortness of breath Denies nausea vomiting diarrhea Denies fever chills Physical Exam Vital Signs: Vital Signs: Last Vital Signs Temp 97.2 F 07/04/21 11:32 Pulse 80 07/04/21 11:32 Resp 14 07/04/21 11:32 BP 127/71 07/04/21 11:32 Pulse Ox 100 07/04/21 11:32 BMI result Body Mass Index 36.3 Const: Other: Awake alert no acute distress Resp: Other: Clear to auscultation bilaterally no rales rhonchi wheezes Cardio: Other: No S4; positive S1-S2; no S3 murmurs rubs gallops GI: Other: Soft nondistended; bowel sounds x4 quadrants. Minimal tenderness across lower abdomen without overt peritoneal signs Extrem: Other: No edema bilateral Objective Data Active Medications Acetaminophen (Acetaminophen 325 Mg Tablet) 650 mg PO Q6H PRN PRN Reason: Pain, Mild (Pain Scale 1-3) Albuterol Sulfate (Albuterol Sulfate (0.083%) 2.5 Mg/3 Ml Vial.Neb) 2.5 mg INHALE Q4H PRN PRN Reason: shortness of breath Last Admin: 06/30/21 23:25 Dose: 2.5 mg Documented by: PERRY Albuterol Sulfate (Albuterol Sulfate (0.083%) 2.5 Mg/3 Ml Vial.Neb) 2.5 mg INHALE RQ4H WHILE AWAKE [facility] Last Admin: 07/04/21 11:07 Dose: 2.5 mg Documented by: HORACIO Albuterol Sulfate (Albuterol Sulfate (0.083%) 2.5 Mg/3 Ml Vial.Neb) 2.5 mg INHALE Q4H PRN PRN Reason: shortness of breath or wheezing Apixaban (Apixaban 5 Mg Tablet) 5 mg PO BID [facility] Last Admin: 07/04/21 09:01 Dose: 5 mg Documented by: ROXIE Atorvastatin Calcium (Atorvastatin Calcium 10 Mg Tablet) 10 mg PO BEDTIME [facility] Last Admin: 07/03/21 20:14 Dose: 10 mg Documented by: ARON Clonazepam (Clonazepam 1 Mg Tablet) 1 mg PO BID PRN PRN Reason: Anxiety Last Admin: 07/03/21 08:53 Dose: 1 mg Documented by: ARMIN Dextrose (Dextrose 50 % 25 Gm/50 Ml Syringe) 25 gm IVPUSH Q15M PRN; Protocol PRN Reason: per Hypoglycemia Standing Ord. Escitalopram Oxalate (Escitalopram Oxalate 20 Mg Tablet) 20 mg PO DAILY [facility] Last Admin: 07/04/21 09:00 Dose: 20 mg Documented by: ROXIE Furosemide (Furosemide 40 Mg Tablet) 40 mg PO DAILY [facility]; Protocol Last Admin: 07/04/21 09:01 Dose: 40 mg Documented by: ROXIE Glucose (Glucose Gel 15 Gm Gel..Gram.) 15 gm PO Q15M PRN; Protocol PRN Reason: per Hypoglycemia Standing Ord. Hydromorphone HCl (Hydromorphone Hcl 1 Mg/Ml Syringe) 0.5 mg IVPUSH Q3H PRN; Protocol PRN Reason: Pain, Severe (Pain Scale 7-10) Last Admin: 07/04/21 12:09 Dose: 0.5 mg Documented by: ROXIE Piperacillin Sod/Tazobactam (Sod 3.375 gm/ Sodium Chloride) 50 mls @ 100 mls/hr IV Q6H [facility] Last Infusion: 07/04/21 10:17 Dose: 0 mls/hr Documented by: ARMIN Insulin Human Lispro (Insulin Lispro 100 Unit/Ml 3 Ml Vial) 0 unit SUBCUT QIDACHS [facility]; Protocol Last Admin: 07/04/21 11:15 Dose: 8 unit Documented by: ROXIE Lurasidone HCl (Lurasidone Hcl 40 Mg Tablet) 40 mg PO BEDTIME [facility] Last Admin: 07/03/21 20:14 Dose: 40 mg Documented by: ARON Melatonin (Melatonin 3 Mg Tablet) 3 mg PO BEDTIME PRN PRN Reason: Insomnia Metformin HCl (Metformin Hcl Er 500 Mg Tab.Er.24h) 1,000 mg PO BID [facility] Last Admin: 07/04/21 09:00 Dose: 1,000 mg Documented by: ROXIE Ondansetron HCl (Ondansetron Hcl 4 Mg/2 Ml Vial) 4 mg IVPUSH Q8H PRN PRN Reason: Nausea and Vomiting Last Admin: 06/30/21 18:20 Dose: 4 mg Documented by: HEATHER Oxybutynin Chloride (Oxybutynin Chloride Er 5 Mg Tab.Er.24) 5 mg PO DAILY [facility] Last Admin: 07/04/21 09:01 Dose: 5 mg Documented by: ROXIE Oxycodone HCl (Oxycodone Hcl Immed Release 5 Mg Tablet) 5 mg PO Q4H PRN PRN Reason: Pain, Moderate (Pain Scale 4-6 Last Admin: 06/29/21 19:35 Dose: 5 mg Documented by: NELY Oxycodone HCl (Oxycodone Hcl Immed Release 5 Mg Tablet) 10 mg PO Q4H PRN PRN Reason: Pain, Severe (Pain Scale 7-10) Last Admin: 07/03/21 10:43 Dose: 10 mg Documented by: ARMIN Pharmacy Consult (Consult Rx Perform Med Rec) 1 each MISCELLANE ONCE PRN PRN Reason: Consult order Phenazopyridine HCl (Phenazopyridine Hcl 100 Mg Tablet) 100 mg PO BID PRN PRN Reason: spasm Polyethylene Glycol (Polyethylene Glycol 3350 17 Gm Powd.Pack) 17 gm PO DAILY [facility] Last Admin: 07/04/21 09:00 Dose: Not Given Documented by: ROXIE Non-Admin Reason: Patient Refused Prednisone (Prednisone 20 Mg Tablet) 40 mg PO DAILY [facility] Last Admin: 07/04/21 09:01 Dose: 40 mg Documented by: ROXIE Promethazine HCl (Promethazine Hcl 25 Mg Tablet) 25 mg PO Q8H PRN PRN Reason: Nausea Last Admin: 07/03/21 20:14 Dose: 25 mg Documented by: ARON Tamsulosin HCl (Tamsulosin Hcl 0.4 Mg Capsule) 0.4 mg PO DAILY [facility] Last Admin: 07/04/21 09:00 Dose: 0.4 mg Documented by: ROXIE Trazodone HCl (Trazodone Hcl 100 Mg Tablet) 100 mg PO BEDTIME PRN PRN Reason: Sleep Last Admin: 07/02/21 20:47 Dose: 100 mg Documented by: ANTWAN Labs CBC & Chem 7: 07/04/21 05:42 07/04/21 05:42 Labs: Laboratory Results - last 24 hr 07/03/21 07/03/21 07/04/21 16:20 20:26 05:42 MCV 88.3 MCH 27.6 MCHC 31.2 RDW 14.5 Plt Count 342 MPV 10.2 Immature Gran % (Auto) 0.6 H Neut % (Auto) 70.5 Lymph % (Auto) 20.8 [place] % (Auto) 7.0 Eos % (Auto) 0.7 Baso % (Auto) 0.4 Lymph # (Auto) 1.1 L [place] # (Auto) 0.4 Eos # (Auto) 0.0 Baso # (Auto) 0.0 Abs Immat Gran (auto) 0.03 Absolute Neuts (auto) 3.8 Absolute Nucleated RBC 0.000 Nucleated RBC % (auto) 0.0 Anion Gap Estim Creat Clear Calc Estimated GFR POC Glucose 334 H 295 H Fasting Glucose Calcium Total Bilirubin AST ALT Alkaline Phosphatase Total Protein Albumin 07/04/21 07/04/21 07/04/21 05:42 07:22 11:03 MCV MCH MCHC RDW Plt Count MPV Immature Gran % (Auto) Neut % (Auto) Lymph % (Auto) [place] % (Auto) Eos % (Auto) Baso % (Auto) Lymph # (Auto) [place] # (Auto) Eos # (Auto) Baso # (Auto) Abs Immat Gran (auto) Absolute Neuts (auto) Absolute Nucleated RBC Nucleated RBC % (auto) Anion Gap 10 L Estim Creat Clear Calc 77.5 Estimated GFR > 60 POC Glucose 134 H 316 H Fasting Glucose 166 H Calcium 8.5 D Total Bilirubin 0.4 AST 45 H ALT 31 Alkaline Phosphatase 387 H Total Protein 6.4 L Albumin 3.0 L Assessment and Plan (1) Diabetes: Status: Acute (2) Takotsubo cardiomyopathy: Status: Acute (3) Bipolar 1 disorder: Status: Acute Plan 50-year-old female patient with a complicated surgical history with 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 Asked to follow for poorly controlled POCs. Discussed with staff who states patient has a significant dietary indiscretion . 1.DMII -will restart Metformin today..(CT w/contrast 07/03) -encourage dietary restraint -continue Lispro correctional scale -add back glyburide as appropriate 2.Hx PE/DVT -asymptomatic -continue Eliquis to 5 mg b.i.d. 3.Tracheal stenosis/tracheomalacia/ asthma -trach mask -supplemental nebs p.r.n. 4.Takotsubo cardiomyopathy -EF 25-30% per notes from [facility] -lasix as ordered 5.BPD 1 -latuda, oxcarbazepine, trazodone, clonazepam DVT prophylaxis:Eliquis? Code status: Full code Quality Stroke Does the patient have a stroke diagnosis?: No VTE Prior VTE?: Yes VTE Risk Level:: Surgical - high VTE Device Contraindication: N/A - Device Ordered VTE Drug Contraindication: Treatment Not Indicated
[2021-07-04 16:26] LABS: Glucose, Whole Blood 306 mg/dL (60-115)
[2021-07-04 20:18] LABS: Glucose, Whole Blood 235 mg/dL (60-115)
[2021-07-04] MEDS: Lurasidone HCl 40 MG TABLET PO (21:48)
[2021-07-04] MEDS: Atorvastatin Calcium 10 MG TABLET PO (21:48)
[2021-07-04] MEDS: clonazePAM 1 MG TABLET PO (21:52)
[2021-07-05] VITALS (12 sets, daily range): BP systolic 101–145; BP diastolic 57–78; PULSE 74–109; RESP 16–22; TEMP 36.2–36.9; O2SAT 90–99
[2021-07-05] MEDS: HYDROmorphone HCl 1 MG/ML SYRINGE 0.5 MG IVPUSH ×8 (00:35→22:03)
[2021-07-05] MEDS: Piperacillin Sodium/Tazobactam 3.375 GM in 0.9 % Sodium Chloride 50 ML IV ×4 (03:36→21:54)
[2021-07-05 06:23] LABS: MANUAL DIFF FLAG NO
[2021-07-05 06:31] LABS: Basophils Percent Auto 0.3 % (0-2); Eosinophils Absolute Auto 0.1 X10*3/uL (0.0-0.4); Eosinophils Percent Auto 1.3 % (0-4); Hemoglobin 9.8 g/dl (12.0-16.0); Imm Gran Abs Auto 0.06 X10*3/uL (0.00-0.03); Imm Gran Pct Auto 0.9 % (0.0-0.4); Lymphocytes Absolute Auto 1.5 X10*3/uL (1.2-4.9); Lymphocytes Percent Auto 21.9 % (20-40); Mean Corpuscular HGB Conc 31.6 g/dl (31.0-35.0); Mean Corpuscular Hemoglobin 27.4 pg (27.0-33.0); Mean Corpuscular Volume 86.6 fL (80.0-98.0); Mean Platelet Volume 10.2 fL (9.4-12.3); Monocytes Absolute Auto 0.4 X10*3/uL (0.1-1.2); Monocytes Percent Auto 6.4 % (2-11); Neutrophils Absolute Auto 4.6 x10*3/uL (2.0-8.3); Neutrophils Percent Auto 69.2 % (45-73); Platelet Count 396 X10*3/uL (160-400); Red Blood Count 3.58 X10*6/uL (4.20-5.50); Red Cell Distribution Width 14.4 % (11.0-16.0); White Blood Count 6.7 X10*3/uL (4.8-10.8)
[2021-07-05] MEDS: Albuterol Sulfate (0.083%) 2.5 MG/3 ML VIAL.NEB INHALE ×4 (07:28→19:53)
[2021-07-05 07:48] LABS: Glucose, Whole Blood 167 mg/dL (60-115)
[2021-07-05 09:06] LABS: Alanine Aminotransferase 42 U/L (0-31); Alkaline Phosphatase 432 U/L (39-117); Anion Gap 12 (12-20); Aspartate Amino Transferase 47 U/L (5-31); Bilirubin Total 0.3 mg/dL (0.0-1.0); Blood Urea Nitrogen 12 mg/dL (9-16); Calcium 8.7 mg/dL (8.4-10.2); Carbon Dioxide 34 mmol/L (22-29); Chloride 95 mmol/L (96-108); Creatinine Clr Calc Pharmacy 75.1; Estimated Glomerular Filt Rate > 60; Glucose Fasting 151 mg/dL (60-99); Potassium 3.6 mmol/L (3.3-5.1); Sodium 137 mmol/L (135-145); Total Protein 6.4 g/dL (6.5-8.0)
[2021-07-05] MEDS: Tamsulosin HCL 0.4 MG CAPSULE PO (09:55)
[2021-07-05] MEDS: Escitalopram Oxalate 20 MG TABLET PO (09:55)
[2021-07-05] MEDS: Furosemide 40 MG TABLET PO (09:55)
[2021-07-05] MEDS: predniSONE 20 MG TABLET 40 MG PO (09:55)
[2021-07-05] MEDS: Apixaban 5 MG TABLET PO ×2 (09:55→21:55)
[2021-07-05] MEDS: Promethazine HCL 25 MG TABLET PO (10:00)
[2021-07-05] MEDS: clonazePAM 1 MG TABLET PO (10:00)
[2021-07-05 11:35] LABS: Glucose, Whole Blood 326 mg/dL (60-115)
[2021-07-05] MEDS: Insulin Lispro 100 UNIT/ML 3 ML VIAL SUBCUT ×3 (12:13→21:54)
--- NOTE | 2021-07-05 14:57 | P.PNIM_ITS ---
Subjective Subjective Date of Service: 07/05/21 Interval History: No acute issues overnight. Still complaining of diffuse lower abdominal pain;tolerating diet Review of Systems Denies chest pain Denies shortness of breath Denies nausea vomiting diarrhea Denies fever chills Physical Exam Vital Signs: Vital Signs: Last Vital Signs Temp 97.5 F 07/05/21 11:22 Pulse 89 07/05/21 11:38 Resp 18 07/05/21 11:38 BP 117/76 07/05/21 11:22 Pulse Ox 90 L 07/05/21 11:22 BMI result Body Mass Index 36.3 Const: Other: Awake alert no acute distress Resp: Other: Clear to auscultation bilaterally no rales rhonchi wheezes Cardio: Other: No S4; positive S1-S2; no S3 murmurs rubs gallops GI: Other: Soft nondistended; bowel sounds x4 quadrants. Minimal tenderness across lower abdomen without overt peritoneal signs Extrem: Other: No edema bilateral Objective Data Active Medications Acetaminophen (Acetaminophen 325 Mg Tablet) 650 mg PO Q6H PRN PRN Reason: Pain, Mild (Pain Scale 1-3) Albuterol Sulfate (Albuterol Sulfate (0.083%) 2.5 Mg/3 Ml Vial.Neb) 2.5 mg INHALE Q4H PRN PRN Reason: shortness of breath Last Admin: 06/30/21 23:25 Dose: 2.5 mg Documented by: PERRY Albuterol Sulfate (Albuterol Sulfate (0.083%) 2.5 Mg/3 Ml Vial.Neb) 2.5 mg INHALE RQ4H WHILE AWAKE [facility] Last Admin: 07/05/21 11:37 Dose: 2.5 mg Documented by: HORACIO Apixaban (Apixaban 5 Mg Tablet) 5 mg PO BID [facility] Last Admin: 07/05/21 09:55 Dose: 5 mg Documented by: ARMIN Atorvastatin Calcium (Atorvastatin Calcium 10 Mg Tablet) 10 mg PO BEDTIME [facility] Last Admin: 07/04/21 21:48 Dose: 10 mg Documented by: ARON Clonazepam (Clonazepam 1 Mg Tablet) 1 mg PO BID PRN PRN Reason: Anxiety Last Admin: 07/05/21 10:00 Dose: 1 mg Documented by: ARMIN Dextrose (Dextrose 50 % 25 Gm/50 Ml Syringe) 25 gm IVPUSH Q15M PRN; Protocol PRN Reason: per Hypoglycemia Standing Ord. Escitalopram Oxalate (Escitalopram Oxalate 20 Mg Tablet) 20 mg PO DAILY [facility] Last Admin: 07/05/21 09:55 Dose: 20 mg Documented by: ARMIN Furosemide (Furosemide 40 Mg Tablet) 40 mg PO DAILY [facility]; Protocol Last Admin: 07/05/21 09:55 Dose: 40 mg Documented by: ARMIN Glucose (Glucose Gel 15 Gm Gel..Gram.) 15 gm PO Q15M PRN; Protocol PRN Reason: per Hypoglycemia Standing Ord. Hydromorphone HCl (Hydromorphone Hcl 1 Mg/Ml Syringe) 0.5 mg IVPUSH Q3H PRN; Protocol PRN Reason: Pain, Severe (Pain Scale 7-10) Last Admin: 07/05/21 12:43 Dose: 0.5 mg Documented by: ARMIN Piperacillin Sod/Tazobactam (Sod 3.375 gm/ Sodium Chloride) 50 mls @ 100 mls/hr IV Q6H [facility] Last Admin: 07/05/21 14:34 Dose: 100 mls/hr Documented by: ARMIN Insulin Human Lispro (Insulin Lispro 100 Unit/Ml 3 Ml Vial) 0 unit SUBCUT QIDACHS [facility]; Protocol Last Admin: 07/05/21 12:13 Dose: 8 unit Documented by: ARMIN Lurasidone HCl (Lurasidone Hcl 40 Mg Tablet) 40 mg PO BEDTIME [facility] Last Admin: 07/04/21 21:48 Dose: 40 mg Documented by: ARON Melatonin (Melatonin 3 Mg Tablet) 3 mg PO BEDTIME PRN PRN Reason: Insomnia Metformin HCl (Metformin Hcl Er 500 Mg Tab.Er.24h) 1,000 mg PO BID [facility] Last Admin: 07/05/21 09:55 Dose: Not Given Documented by: ARMIN Non-Admin Reason: ct contrast on tuesday Ondansetron HCl (Ondansetron Hcl 4 Mg/2 Ml Vial) 4 mg IVPUSH Q8H PRN PRN Reason: Nausea and Vomiting Last Admin: 06/30/21 18:20 Dose: 4 mg Documented by: HEATHER Oxybutynin Chloride (Oxybutynin Chloride Er 5 Mg Tab.Er.24) 5 mg PO DAILY [facility] Last Admin: 07/05/21 09:54 Dose: 5 mg Documented by: ARMIN Oxycodone HCl (Oxycodone Hcl Immed Release 5 Mg Tablet) 5 mg PO Q4H PRN PRN Reason: Pain, Moderate (Pain Scale 4-6 Last Admin: 06/29/21 19:35 Dose: 5 mg Documented by: NELY Oxycodone HCl (Oxycodone Hcl Immed Release 5 Mg Tablet) 10 mg PO Q4H PRN PRN Reason: Pain, Severe (Pain Scale 7-10) Last Admin: 07/03/21 10:43 Dose: 10 mg Documented by: ARMIN Pharmacy Consult (Consult Rx Perform Med Rec) 1 each MISCELLANE ONCE PRN PRN Reason: Consult order Phenazopyridine HCl (Phenazopyridine Hcl 100 Mg Tablet) 100 mg PO BID PRN PRN Reason: spasm Polyethylene Glycol (Polyethylene Glycol 3350 17 Gm Powd.Pack) 17 gm PO DAILY [facility] Last Admin: 07/05/21 09:55 Dose: Not Given Documented by: ARMIN Non-Admin Reason: Patient Refused Prednisone (Prednisone 20 Mg Tablet) 40 mg PO DAILY [facility] Last Admin: 07/05/21 09:55 Dose: 40 mg Documented by: ARMIN Promethazine HCl (Promethazine Hcl 25 Mg Tablet) 25 mg PO Q8H PRN PRN Reason: Nausea Last Admin: 07/05/21 10:00 Dose: 25 mg Documented by: ARMIN Tamsulosin HCl (Tamsulosin Hcl 0.4 Mg Capsule) 0.4 mg PO DAILY [facility] Last Admin: 07/05/21 09:55 Dose: 0.4 mg Documented by: ARMIN Trazodone HCl (Trazodone Hcl 100 Mg Tablet) 100 mg PO BEDTIME PRN PRN Reason: Sleep Last Admin: 07/02/21 20:47 Dose: 100 mg Documented by: ANTWAN Labs CBC & Chem 7: 07/05/21 05:43 07/05/21 05:43 Labs: Laboratory Results - last 24 hr 07/04/21 07/04/21 07/05/21 16:21 19:46 05:43 MCV 86.6 MCH 27.4 MCHC 31.6 RDW 14.4 Plt Count 396 MPV 10.2 Immature Gran % (Auto) 0.9 H Neut % (Auto) 69.2 Lymph % (Auto) 21.9 [place] % (Auto) 6.4 Eos % (Auto) 1.3 Baso % (Auto) 0.3 Lymph # (Auto) 1.5 [place] # (Auto) 0.4 Eos # (Auto) 0.1 Baso # (Auto) 0.0 Abs Immat Gran (auto) 0.06 H Absolute Neuts (auto) 4.6 Absolute Nucleated RBC 0.000 Nucleated RBC % (auto) 0.0 Anion Gap Estim Creat Clear Calc Estimated GFR POC Glucose 306 H 235 H Fasting Glucose Calcium Total Bilirubin AST ALT Alkaline Phosphatase Total Protein Albumin 07/05/21 07/05/21 07/05/21 05:43 07:42 11:30 MCV MCH MCHC RDW Plt Count MPV Immature Gran % (Auto) Neut % (Auto) Lymph % (Auto) [place] % (Auto) Eos % (Auto) Baso % (Auto) Lymph # (Auto) [place] # (Auto) Eos # (Auto) Baso # (Auto) Abs Immat Gran (auto) Absolute Neuts (auto) Absolute Nucleated RBC Nucleated RBC % (auto) Anion Gap 12 Estim Creat Clear Calc 75.1 Estimated GFR > 60 POC Glucose 167 H 326 H Fasting Glucose 151 H Calcium 8.7 Total Bilirubin 0.3 AST 47 H ALT 42 H Alkaline Phosphatase 432 H Total Protein 6.4 L Albumin 3.0 L Assessment and Plan (1) Diabetes: Status: Acute (2) Takotsubo cardiomyopathy: Status: Acute (3) Bipolar 1 disorder: Status: Acute Plan 50-year-old female patient with a complicated surgical history with 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 Asked to follow for poorly controlled POCs. Discussed with staff who states patient has a significant dietary indiscretion . 1.DMII -will restart Metformin today..(CT w/contrast 07/03) -encourage dietary restraint -continue Lispro correctional scale -add back glyburide 2.Hx PE/DVT -asymptomatic -continue Eliquis to 5 mg b.i.d. 3.Tracheal stenosis/tracheomalacia/ asthma -trach mask -supplemental nebs p.r.n. 4.Takotsubo cardiomyopathy -EF 25-30% per notes from [facility] -lasix as ordered 5.BPD 1 -latuda, oxcarbazepine, trazodone, clonazepam DVT prophylaxis:Eliquis? Code status: Full code Quality Stroke Does the patient have a stroke diagnosis?: No VTE Prior VTE?: Yes VTE Risk Level:: Surgical - high VTE Device Contraindication: N/A - Device Ordered VTE Drug Contraindication: Treatment Not Indicated
[2021-07-05 16:13] LABS: Glucose, Whole Blood 325 mg/dL (60-115)
[2021-07-05] MEDS: glipiZIDE 5 MG TABLET PO (17:16)
[2021-07-05 20:00] LABS: Glucose, Whole Blood 386 mg/dL (60-115)
[2021-07-05] MEDS: metFORMIN HCl ER 500 MG TAB.ER.24H 1000 MG PO (21:55)
[2021-07-05] MEDS: Lurasidone HCl 40 MG TABLET PO (21:55)
[2021-07-05] MEDS: Atorvastatin Calcium 10 MG TABLET PO (21:55)
[2021-07-06] VITALS (10 sets, daily range): BP systolic 118–167; BP diastolic 59–89; PULSE 73–111; RESP 16–18; TEMP 36.2–37.1; O2SAT 90–96
[2021-07-06] MEDS: oxyCODONE HCl Immed Release 5 MG TABLET 10 MG PO (00:09)
[2021-07-06] MEDS: HYDROmorphone HCl 1 MG/ML SYRINGE 0.5 MG IVPUSH ×7 (01:15→21:34)
[2021-07-06] MEDS: Piperacillin Sodium/Tazobactam 3.375 GM in 0.9 % Sodium Chloride 50 ML IV ×4 (04:13→22:27)
[2021-07-06 06:15] LABS: MANUAL DIFF FLAG NO
[2021-07-06 06:34] LABS: Alanine Aminotransferase 33 U/L (0-31); Alkaline Phosphatase 380 U/L (39-117); Anion Gap 13 (12-20); Aspartate Amino Transferase 33 U/L (5-31); Bilirubin Total 0.4 mg/dL (0.0-1.0); Blood Urea Nitrogen 14 mg/dL (9-16); Calcium 8.4 mg/dL (8.4-10.2); Carbon Dioxide 32 mmol/L (22-29); Chloride 95 mmol/L (96-108); Estimated Glomerular Filt Rate 55; Glucose Fasting 209 mg/dL (60-99); Potassium 3.5 mmol/L (3.3-5.1); Sodium 136 mmol/L (135-145); Total Protein 6.2 g/dL (6.5-8.0)
[2021-07-06 06:37] LABS: Basophils Percent Auto 0.4 % (0-2); Eosinophils Absolute Auto 0.1 X10*3/uL (0.0-0.4); Eosinophils Percent Auto 1.4 % (0-4); Hematocrit 31.4 % (37.0-47.0); Hemoglobin 9.9 g/dl (12.0-16.0); Imm Gran Abs Auto 0.09 X10*3/uL (0.00-0.03); Imm Gran Pct Auto 1.3 % (0.0-0.4); Lymphocytes Absolute Auto 1.4 X10*3/uL (1.2-4.9); Lymphocytes Percent Auto 19.6 % (20-40); Mean Corpuscular HGB Conc 31.5 g/dl (31.0-35.0); Mean Corpuscular Hemoglobin 27.4 pg (27.0-33.0); Mean Platelet Volume 10.1 fL (9.4-12.3); Monocytes Absolute Auto 0.6 X10*3/uL (0.1-1.2); Monocytes Percent Auto 8.1 % (2-11); Neutrophils Absolute Auto 4.8 x10*3/uL (2.0-8.3); Neutrophils Percent Auto 69.2 % (45-73); Platelet Count 387 X10*3/uL (160-400); Red Blood Count 3.61 X10*6/uL (4.20-5.50); Red Cell Distribution Width 14.4 % (11.0-16.0)
[2021-07-06 07:32] LABS: Glucose, Whole Blood 193 mg/dL (60-115)
[2021-07-06] MEDS: glipiZIDE 5 MG TABLET PO ×2 (08:12→17:13)
[2021-07-06] MEDS: Apixaban 5 MG TABLET PO ×2 (08:12→22:28)
[2021-07-06] MEDS: Furosemide 40 MG TABLET PO (08:12)
[2021-07-06] MEDS: Escitalopram Oxalate 20 MG TABLET PO (08:12)
[2021-07-06] MEDS: predniSONE 20 MG TABLET 40 MG PO (08:12)
[2021-07-06] MEDS: metFORMIN HCl ER 500 MG TAB.ER.24H 1000 MG PO ×2 (08:13→22:28)
[2021-07-06] MEDS: Tamsulosin HCL 0.4 MG CAPSULE PO (08:15)
--- NOTE | 2021-07-06 10:04 | HO.PM.IMPN ---
Subjective Subjective Date of Service: 07/06/21 Interval History: Continues with diffuse lower abdominal discomfort somewhat improved over the last 24 hours Review of Systems Denies chest pain Denies shortness of breath Denies nausea vomiting diarrhea Denies fever chills Physical Exam Vital Signs: Vital Signs: Last Vital Signs Temp 97.7 F 07/06/21 07:21 Pulse 73 07/06/21 07:21 Resp 16 07/06/21 07:21 BP 134/72 07/06/21 07:21 Pulse Ox 96 07/06/21 07:21 BMI result Body Mass Index 36.3 Const: Other: Awake alert no acute distress Resp: Other: Clear to auscultation bilaterally no rales rhonchi wheezes Cardio: Other: No S4; positive S1-S2; no S3 murmurs rubs gallops GI: Other: Soft nondistended; bowel sounds x4 quadrants. Minimal tenderness across lower abdomen without overt peritoneal signs Extrem: Other: No edema bilateral Objective Data Active Medications Acetaminophen (Acetaminophen 325 Mg Tablet) 650 mg PO Q6H PRN PRN Reason: Pain, Mild (Pain Scale 1-3) Albuterol Sulfate (Albuterol Sulfate (0.083%) 2.5 Mg/3 Ml Vial.Neb) 2.5 mg INHALE Q4H PRN PRN Reason: shortness of breath Last Admin: 06/30/21 23:25 Dose: 2.5 mg Documented by: PERRY Albuterol Sulfate (Albuterol Sulfate (0.083%) 2.5 Mg/3 Ml Vial.Neb) 2.5 mg INHALE RQ4H WHILE AWAKE [facility] Last Admin: 07/06/21 07:10 Dose: Not Given Documented by: HORACIO Non-Admin Reason: Patient Refused Apixaban (Apixaban 5 Mg Tablet) 5 mg PO BID [facility] Last Admin: 07/06/21 08:12 Dose: 5 mg Documented by: LINDA Atorvastatin Calcium (Atorvastatin Calcium 10 Mg Tablet) 10 mg PO BEDTIME [facility] Last Admin: 07/05/21 21:55 Dose: 10 mg Documented by: ARON Clonazepam (Clonazepam 1 Mg Tablet) 1 mg PO BID PRN PRN Reason: Anxiety Last Admin: 07/05/21 10:00 Dose: 1 mg Documented by: ARMIN Dextrose (Dextrose 50 % 25 Gm/50 Ml Syringe) 25 gm IVPUSH Q15M PRN; Protocol PRN Reason: per Hypoglycemia Standing Ord. Escitalopram Oxalate (Escitalopram Oxalate 20 Mg Tablet) 20 mg PO DAILY [facility] Last Admin: 07/06/21 08:12 Dose: 20 mg Documented by: LINDA Furosemide (Furosemide 40 Mg Tablet) 40 mg PO DAILY [facility]; Protocol Last Admin: 07/06/21 08:12 Dose: 40 mg Documented by: LINDA Glipizide (Glipizide 5 Mg Tablet) 5 mg PO BIDAC [facility] Last Admin: 07/06/21 08:12 Dose: 5 mg Documented by: LINDA Glucose (Glucose Gel 15 Gm Gel..Gram.) 15 gm PO Q15M PRN; Protocol PRN Reason: per Hypoglycemia Standing Ord. Hydromorphone HCl (Hydromorphone Hcl 1 Mg/Ml Syringe) 0.5 mg IVPUSH Q3H PRN; Protocol PRN Reason: Pain, Severe (Pain Scale 7-10) Last Admin: 07/06/21 08:14 Dose: 0.5 mg Documented by: LINDA Piperacillin Sod/Tazobactam (Sod 3.375 gm/ Sodium Chloride) 50 mls @ 100 mls/hr IV Q6H [facility] Last Infusion: 07/06/21 09:06 Dose: 100 mls/hr Documented by: LINDA Insulin Human Lispro (Insulin Lispro 100 Unit/Ml 3 Ml Vial) 0 unit SUBCUT QIDACHS [facility]; Protocol Last Admin: 07/06/21 08:13 Dose: Not Given Documented by: LINDA Non-Admin Reason: No Insulin Coverage Lurasidone HCl (Lurasidone Hcl 40 Mg Tablet) 40 mg PO BEDTIME [facility] Last Admin: 07/05/21 21:55 Dose: 40 mg Documented by: ARON Melatonin (Melatonin 3 Mg Tablet) 3 mg PO BEDTIME PRN PRN Reason: Insomnia Metformin HCl (Metformin Hcl Er 500 Mg Tab.Er.24h) 1,000 mg PO BID [facility] Last Admin: 07/06/21 08:13 Dose: 1,000 mg Documented by: LINDA Ondansetron HCl (Ondansetron Hcl 4 Mg/2 Ml Vial) 4 mg IVPUSH Q8H PRN PRN Reason: Nausea and Vomiting Last Admin: 06/30/21 18:20 Dose: 4 mg Documented by: HEATHER Oxybutynin Chloride (Oxybutynin Chloride Er 5 Mg Tab.Er.24) 5 mg PO DAILY [facility] Last Admin: 07/06/21 08:13 Dose: 5 mg Documented by: LINDA Oxycodone HCl (Oxycodone Hcl Immed Release 5 Mg Tablet) 5 mg PO Q4H PRN PRN Reason: Pain, Moderate (Pain Scale 4-6 Last Admin: 06/29/21 19:35 Dose: 5 mg Documented by: NELY Pharmacy Consult (Consult Rx Perform Med Rec) 1 each MISCELLANE ONCE PRN PRN Reason: Consult order Phenazopyridine HCl (Phenazopyridine Hcl 100 Mg Tablet) 100 mg PO BID PRN PRN Reason: spasm Polyethylene Glycol (Polyethylene Glycol 3350 17 Gm Powd.Pack) 17 gm PO DAILY [facility] Last Admin: 07/06/21 08:15 Dose: Not Given Documented by: LINDA Non-Admin Reason: Patient Refused Prednisone (Prednisone 20 Mg Tablet) 40 mg PO DAILY [facility] Last Admin: 07/06/21 08:12 Dose: 40 mg Documented by: LINDA Promethazine HCl (Promethazine Hcl 25 Mg Tablet) 25 mg PO Q8H PRN PRN Reason: Nausea Last Admin: 07/05/21 10:00 Dose: 25 mg Documented by: ARMIN Tamsulosin HCl (Tamsulosin Hcl 0.4 Mg Capsule) 0.4 mg PO DAILY [facility] Last Admin: 07/06/21 08:15 Dose: 0.4 mg Documented by: LINDA Trazodone HCl (Trazodone Hcl 100 Mg Tablet) 100 mg PO BEDTIME PRN PRN Reason: Sleep Last Admin: 07/02/21 20:47 Dose: 100 mg Documented by: PREMAQC Labs CBC & Chem 7: 07/06/21 06:05 07/06/21 06:05 Labs: Laboratory Results - last 24 hr 07/05/21 07/05/21 07/05/21 11:30 15:37 19:36 MCV MCH MCHC RDW Plt Count MPV Immature Gran % (Auto) Neut % (Auto) Lymph % (Auto) [place] % (Auto) Eos % (Auto) Baso % (Auto) Lymph # (Auto) [place] # (Auto) Eos # (Auto) Baso # (Auto) Abs Immat Gran (auto) Absolute Neuts (auto) Absolute Nucleated RBC Nucleated RBC % (auto) Anion Gap Estim Creat Clear Calc Estimated GFR POC Glucose 326 H 325 H 386 H* Fasting Glucose Calcium Total Bilirubin AST ALT Alkaline Phosphatase Total Protein Albumin 07/06/21 07/06/21 07/06/21 06:05 06:05 07:20 MCV 87.0 MCH 27.4 MCHC 31.5 RDW 14.4 Plt Count 387 MPV 10.1 Immature Gran % (Auto) 1.3 H Neut % (Auto) 69.2 Lymph % (Auto) 19.6 L [place] % (Auto) 8.1 Eos % (Auto) 1.4 Baso % (Auto) 0.4 Lymph # (Auto) 1.4 [place] # (Auto) 0.6 Eos # (Auto) 0.1 Baso # (Auto) 0.0 Abs Immat Gran (auto) 0.09 H Absolute Neuts (auto) 4.8 Absolute Nucleated RBC 0.000 Nucleated RBC % (auto) 0.0 Anion Gap 13 Estim Creat Clear Calc 68.0 Estimated GFR 55 POC Glucose 193 H Fasting Glucose 209 H Calcium 8.4 Total Bilirubin 0.4 AST 33 H ALT 33 H Alkaline Phosphatase 380 H Total Protein 6.2 L Albumin 3.0 L Assessment and Plan (1) Diabetes: Status: Acute (2) Takotsubo cardiomyopathy: Status: Acute (3) Bipolar 1 disorder: Status: Acute Plan 50-year-old female patient with a complicated surgical history with 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 Asked to follow for poorly controlled POCs. Discussed with staff who states patient has a significant dietary indiscretion . 1.DMII -encourage dietary restraint -continue Lispro correctional scale -metformin/ glyburide 2.Hx PE/DVT -asymptomatic -continue Eliquis to 5 mg b.i.d. 3.Tracheal stenosis/tracheomalacia/ asthma -trach mask -supplemental nebs p.r.n. 4.Takotsubo cardiomyopathy -EF 25-30% per notes from [facility] -lasix as ordered 5.BPD 1 -latuda, oxcarbazepine, trazodone, clonazepam DVT prophylaxis:Eliquis? Code status: Full code Quality Stroke Does the patient have a stroke diagnosis?: No VTE Prior VTE?: Yes VTE Risk Level:: Surgical - high VTE Device Contraindication: N/A - Device Ordered VTE Drug Contraindication: Treatment Not Indicated
[2021-07-06 11:04] LABS: Glucose, Whole Blood 329 mg/dL (60-115)
[2021-07-06] MEDS: Albuterol Sulfate (0.083%) 2.5 MG/3 ML VIAL.NEB INHALE ×3 (11:11→18:54)
[2021-07-06] MEDS: Insulin Lispro 100 UNIT/ML 3 ML VIAL SUBCUT ×3 (11:25→22:29)
--- NOTE | 2021-07-06 14:50 | P.PNGS_ITS ---
Subjective Subjective Date of Service: 07/06/21 Interval history: Reports some lower abdominal pain. She is tolerating regular diet without nausea or vomiting. Continues to cough up phlegm from the tracheostomy. Physical Exam Vital Signs: Vital Signs: Last Vital Signs Temp 97.7 F 07/06/21 11:29 Pulse 101 H 07/06/21 11:29 Resp 17 07/06/21 11:29 BP 141/89 H 07/06/21 11:29 Pulse Ox 92 07/06/21 11:29 BMI result Body Mass Index 36.3 Resp: Other: Breathing comfortably, no respiratory distress, on trach mask GI: Other: Soft, obese, mild tenderness to deep palpation in the lower abdomen, no peritoneal signs. Skin: Other: Abdominal wall fistula draining purulent fluid Objective Data Active Medications Acetaminophen (Acetaminophen 325 Mg Tablet) 650 mg PO Q6H PRN PRN Reason: Pain, Mild (Pain Scale 1-3) Albuterol Sulfate (Albuterol Sulfate (0.083%) 2.5 Mg/3 Ml Vial.Neb) 2.5 mg INHALE Q4H PRN PRN Reason: shortness of breath Last Admin: 06/30/21 23:25 Dose: 2.5 mg Documented by: PERRY Albuterol Sulfate (Albuterol Sulfate (0.083%) 2.5 Mg/3 Ml Vial.Neb) 2.5 mg INHALE RQ4H WHILE AWAKE [facility] Last Admin: 07/06/21 11:11 Dose: 2.5 mg Documented by: HORACIO Apixaban (Apixaban 5 Mg Tablet) 5 mg PO BID [facility] Last Admin: 07/06/21 08:12 Dose: 5 mg Documented by: LINDA Atorvastatin Calcium (Atorvastatin Calcium 10 Mg Tablet) 10 mg PO BEDTIME [facility] Last Admin: 07/05/21 21:55 Dose: 10 mg Documented by: ARON Clonazepam (Clonazepam 1 Mg Tablet) 1 mg PO BID PRN PRN Reason: Anxiety Last Admin: 07/05/21 10:00 Dose: 1 mg Documented by: ARMIN Dextrose (Dextrose 50 % 25 Gm/50 Ml Syringe) 25 gm IVPUSH Q15M PRN; Protocol PRN Reason: per Hypoglycemia Standing Ord. Escitalopram Oxalate (Escitalopram Oxalate 20 Mg Tablet) 20 mg PO DAILY [facility] Last Admin: 07/06/21 08:12 Dose: 20 mg Documented by: LINDA Furosemide (Furosemide 40 Mg Tablet) 40 mg PO DAILY [facility]; Protocol Last Admin: 07/06/21 08:12 Dose: 40 mg Documented by: LINDA Glipizide (Glipizide 5 Mg Tablet) 5 mg PO BIDAC [facility] Last Admin: 07/06/21 08:12 Dose: 5 mg Documented by: LINDA Glucose (Glucose Gel 15 Gm Gel..Gram.) 15 gm PO Q15M PRN; Protocol PRN Reason: per Hypoglycemia Standing Ord. Hydromorphone HCl (Hydromorphone Hcl 1 Mg/Ml Syringe) 0.5 mg IVPUSH Q3H PRN; Protocol PRN Reason: Pain, Severe (Pain Scale 7-10) Last Admin: 07/06/21 14:33 Dose: 0.5 mg Documented by: LINDA Piperacillin Sod/Tazobactam (Sod 3.375 gm/ Sodium Chloride) 50 mls @ 100 mls/hr IV Q6H [facility] Last Admin: 07/06/21 14:33 Dose: 100 mls/hr Documented by: LINDA Insulin Human Lispro (Insulin Lispro 100 Unit/Ml 3 Ml Vial) 0 unit SUBCUT QIDACHS [facility]; Protocol Last Admin: 07/06/21 11:25 Dose: 8 unit Documented by: LINDA Lurasidone HCl (Lurasidone Hcl 40 Mg Tablet) 40 mg PO BEDTIME [facility] Last Admin: 07/05/21 21:55 Dose: 40 mg Documented by: ARON Melatonin (Melatonin 3 Mg Tablet) 3 mg PO BEDTIME PRN PRN Reason: Insomnia Metformin HCl (Metformin Hcl Er 500 Mg Tab.Er.24h) 1,000 mg PO BID [facility] Last Admin: 07/06/21 08:13 Dose: 1,000 mg Documented by: LINDA Ondansetron HCl (Ondansetron Hcl 4 Mg/2 Ml Vial) 4 mg IVPUSH Q8H PRN PRN Reason: Nausea and Vomiting Last Admin: 06/30/21 18:20 Dose: 4 mg Documented by: HEATHER Oxybutynin Chloride (Oxybutynin Chloride Er 5 Mg Tab.Er.24) 5 mg PO DAILY [facility] Last Admin: 07/06/21 08:13 Dose: 5 mg Documented by: LINDA Oxycodone HCl (Oxycodone Hcl Immed Release 5 Mg Tablet) 5 mg PO Q4H PRN PRN Reason: Pain, Moderate (Pain Scale 4-6 Last Admin: 06/29/21 19:35 Dose: 5 mg Documented by: NELY Pharmacy Consult (Consult Rx Perform Med Rec) 1 each MISCELLANE ONCE PRN PRN Reason: Consult order Phenazopyridine HCl (Phenazopyridine Hcl 100 Mg Tablet) 100 mg PO BID PRN PRN Reason: spasm Polyethylene Glycol (Polyethylene Glycol 3350 17 Gm Powd.Pack) 17 gm PO DAILY [facility] Last Admin: 07/06/21 08:15 Dose: Not Given Documented by: LINDA Non-Admin Reason: Patient Refused Prednisone (Prednisone 20 Mg Tablet) 40 mg PO DAILY [facility] Last Admin: 07/06/21 08:12 Dose: 40 mg Documented by: LINDA Promethazine HCl (Promethazine Hcl 25 Mg Tablet) 25 mg PO Q8H PRN PRN Reason: Nausea Last Admin: 07/05/21 10:00 Dose: 25 mg Documented by: ARMIN Tamsulosin HCl (Tamsulosin Hcl 0.4 Mg Capsule) 0.4 mg PO DAILY [facility] Last Admin: 07/06/21 08:15 Dose: 0.4 mg Documented by: LINDA Trazodone HCl (Trazodone Hcl 100 Mg Tablet) 100 mg PO BEDTIME PRN PRN Reason: Sleep Last Admin: 07/02/21 20:47 Dose: 100 mg Documented by: PREMAQC Labs CBC & Chem 7: 07/06/21 06:05 07/06/21 06:05 Labs: Laboratory Results - last 24 hr 07/05/21 07/05/21 07/06/21 15:37 19:36 06:05 MCV 87.0 MCH 27.4 MCHC 31.5 RDW 14.4 Plt Count 387 MPV 10.1 Immature Gran % (Auto) 1.3 H Neut % (Auto) 69.2 Lymph % (Auto) 19.6 L [place] % (Auto) 8.1 Eos % (Auto) 1.4 Baso % (Auto) 0.4 Lymph # (Auto) 1.4 [place] # (Auto) 0.6 Eos # (Auto) 0.1 Baso # (Auto) 0.0 Abs Immat Gran (auto) 0.09 H Absolute Neuts (auto) 4.8 Absolute Nucleated RBC 0.000 Nucleated RBC % (auto) 0.0 Anion Gap Estim Creat Clear Calc Estimated GFR POC Glucose 325 H 386 H* Fasting Glucose Calcium Total Bilirubin AST ALT Alkaline Phosphatase Total Protein Albumin 07/06/21 07/06/21 07/06/21 06:05 07:20 11:00 MCV MCH MCHC RDW Plt Count MPV Immature Gran % (Auto) Neut % (Auto) Lymph % (Auto) [place] % (Auto) Eos % (Auto) Baso % (Auto) Lymph # (Auto) [place] # (Auto) Eos # (Auto) Baso # (Auto) Abs Immat Gran (auto) Absolute Neuts (auto) Absolute Nucleated RBC Nucleated RBC % (auto) Anion Gap 13 Estim Creat Clear Calc 68.0 Estimated GFR 55 POC Glucose 193 H 329 H Fasting Glucose 209 H Calcium 8.4 Total Bilirubin 0.4 AST 33 H ALT 33 H Alkaline Phosphatase 380 H Total Protein 6.2 L Albumin 3.0 L Procedures Date of Service Date of Service: 07/06/21 Progress Note: A&P Assessment and plan (1) Abdominal pain: Status: Acute (2) Wound drainage: Status: Acute Plan 50-year-old female patient with a complicated surgical history with 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 Patient's symptoms remain in the lower abdomen and left flank. CT demonstrates no evidence of abscess or diverticulitis in the sigmoid colon. She did have a cystoscopy, left stent placement earlier this month for L ureteric stone, sepsis. Urology consulted and she was started on oxybutynin and tamsulosin for possible ureteric spasm yesterday. Abdominal pain is now improved and she is planning on going home tomorrow. On exam she has some mild tenderness but generally is much improved. She continues to tolerate a regular diet without nausea or vomiting. She should follow up with her [facility] surgeons upon discharge. Fall Risk Details Current Medications: Current Medications Acetaminophen (Acetaminophen 325 Mg Tablet) 650 mg PO Q6H PRN PRN Reason: Pain, Mild (Pain Scale 1-3) Albuterol Sulfate (Albuterol Sulfate (0.083%) 2.5 Mg/3 Ml Vial.Neb) 2.5 mg INHA LE Q4H PRN PRN Reason: shortness of breath Last Admin: 06/30/21 23:25 Dose: 2.5 mg Documented by: Albuterol Sulfate (Albuterol Sulfate (0.083%) 2.5 Mg/3 Ml Vial.Neb) 2.5 mg INHALE RQ4H WHILE AWAKE [facility] Last Admin: 07/06/21 11:19 Dose: Not Given Documented by: Apixaban (Apixaban 5 Mg Tablet) 5 mg PO BID [facility] Last Admin: 07/06/21 08:12 Dose: 5 mg Documented by: Atorvastatin Calcium (Atorvastatin Calcium 10 Mg Tablet) 10 mg PO BEDTIME [facility] Last Admin: 07/05/21 21:55 Dose: 10 mg Documented by: Clonazepam (Clonazepam 1 Mg Tablet) 1 mg PO BID PRN PRN Reason: Anxiety Last Admin: 07/05/21 10:00 Dose: 1 mg Documented by: Dextrose (Dextrose 50 % 25 Gm/50 Ml Syringe) 25 gm IVPUSH Q15M PRN; Protocol PRN Reason: per Hypoglycemia Standing Ord. Escitalopram Oxalate (Escitalopram Oxalate 20 Mg Tablet) 20 mg PO DAILY [facility] Last Admin: 07/06/21 08:12 Dose: 20 mg Documented by: Furosemide (Furosemide 40 Mg Tablet) 40 mg PO DAILY [facility]; Protocol Last Admin: 07/06/21 08:12 Dose: 40 mg Documented by: Glipizide (Glipizide 5 Mg Tablet) 5 mg PO BIDAC [facility] Last Admin: 07/06/21 08:12 Dose: 5 mg Documented by: Glucose (Glucose Gel 15 Gm Gel..Gram.) 15 gm PO Q15M PRN; Protocol PRN Reason: per Hypoglycemia Standing Ord. Hydromorphone HCl (Hydromorphone Hcl 1 Mg/Ml Syringe) 0.5 mg IVPUSH Q3H PRN; Protocol PRN Reason: Pain, Severe (Pain Scale 7-10) Last Admin: 07/06/21 14:33 Dose: 0.5 mg Documented by: Piperacillin Sod/Tazobactam (Sod 3.375 gm/ Sodium Chloride) 50 mls @ 100 mls/hr IV Q6H [facility] Last Admin: 07/06/21 14:33 Dose: 100 mls/hr Documented by: Insulin Human Lispro (Insulin Lispro 100 Unit/Ml 3 Ml Vial) 0 unit SUBCUT Q IDACHS [facility]; Protocol Last Admin: 07/06/21 11:25 Dose: 8 unit Documented by: Lurasidone HCl (Lurasidone Hcl 40 Mg Tablet) 40 mg PO BEDTIME [facility] Last Admin: 07/05/21 21:55 Dose: 40 mg Documented by: Melatonin (Melatonin 3 Mg Tablet) 3 mg PO BEDTIME PRN PRN Reason: Insomnia Metformin HCl (Metformin Hcl Er 500 Mg Tab.Er.24h) 1,000 mg PO BID [facility] Last Admin: 07/06/21 08:13 Dose: 1,000 mg Documented by: Ondansetron HCl (Ondansetron Hcl 4 Mg/2 Ml Vial) 4 mg IVPUSH Q8H PRN PRN Reason: Nausea and Vomiting Last Admin: 06/30/21 18:20 Dose: 4 mg Documented by: Oxybutynin Chloride (Oxybutynin Chloride Er 5 Mg Tab.Er.24) 5 mg PO DAILY [facility] Last Admin: 07/06/21 08:13 Dose: 5 mg Documented by: Oxycodone HCl (Oxycodone Hcl Immed Release 5 Mg Tablet) 5 mg PO Q4H PRN PRN Reason: Pain, Moderate (Pain Scale 4-6 Last Admin: 06/29/21 19:35 Dose: 5 mg Documented by: Pharmacy Consult (Consult Rx Perform Med Rec) 1 each MISCELLANE ONCE PRN PRN Reason: Consult order Phenazopyridine HCl (Phenazopyridine Hcl 100 Mg Tablet) 100 mg PO BID PRN PRN Reason: spasm Polyethylene Glycol (Polyethylene Glycol 3350 17 Gm Powd.Pack) 17 gm PO DAILY [facility] Last Admin: 07/06/21 08:15 Dose: Not Given Documented by: Prednisone (Prednisone 20 Mg Tablet) 40 mg PO DAILY [facility] Last Admin: 07/06/21 08:12 Dose: 40 mg Documented by: Promethazine HCl (Promethazine Hcl 25 Mg Tablet) 25 mg PO Q8H PRN PRN Reason: Nausea Last Admin: 07/05/21 10:00 Dose: 25 mg Documented by: Tamsulosin HCl (Tamsulosin Hcl 0.4 Mg Capsule) 0.4 mg PO DAILY [facility] Last Admin: 07/06/21 08:15 Dose: 0.4 mg Documented by: Trazodone HCl (Trazodone Hcl 100 Mg Tablet) 100 mg PO BEDTIME PRN PRN Reason: Sleep Last Admin: 07/02/21 20:47 Dose: 100 mg Documented by: Time Spent With Patient Time: Total time spent is greater than 50% in coordination of care (as documented) at patient's floor/unit and/or counseling patient: Quality Stroke Does the patient have a stroke diagnosis?: No VTE Prior VTE?: Yes VTE Risk Level:: Surgical - high VTE Device Contraindication: N/A - Device Ordered VTE Drug Contraindication: Treatment Not Indicated
[2021-07-06 15:38] LABS: Glucose, Whole Blood 373 mg/dL (60-115)
--- NOTE | 2021-07-06 16:43 | PC.NURSE ---
P BS 373 I- Dr Broussard notified E will monitor
[2021-07-06 20:02] LABS: Glucose, Whole Blood 349 mg/dL (60-115)
[2021-07-06] MEDS: Atorvastatin Calcium 10 MG TABLET PO (22:28)
[2021-07-06] MEDS: Lurasidone HCl 40 MG TABLET PO (22:29)
[2021-07-07] VITALS (7 sets, daily range): BP systolic 131–161; BP diastolic 76–85; PULSE 82–99; RESP 17–20; TEMP 36.6–37.3; O2SAT 94–96
[2021-07-07] MEDS: HYDROmorphone HCl 1 MG/ML SYRINGE 0.5 MG IVPUSH ×3 (01:18→08:09)
[2021-07-07] MEDS: Piperacillin Sodium/Tazobactam 3.375 GM in 0.9 % Sodium Chloride 50 ML IV ×2 (04:32→09:17)
[2021-07-07 07:50] LABS: Glucose, Whole Blood 142 mg/dL (60-115)
[2021-07-07] MEDS: Albuterol Sulfate (0.083%) 2.5 MG/3 ML VIAL.NEB INHALE ×2 (07:50→10:56)
[2021-07-07] MEDS: glipiZIDE 5 MG TABLET PO (08:11)
[2021-07-07] MEDS: Apixaban 5 MG TABLET PO (08:11)
[2021-07-07] MEDS: clonazePAM 1 MG TABLET PO (08:11)
[2021-07-07] MEDS: Escitalopram Oxalate 20 MG TABLET PO (08:11)
[2021-07-07] MEDS: metFORMIN HCl ER 500 MG TAB.ER.24H 1000 MG PO (08:11)
[2021-07-07] MEDS: Furosemide 40 MG TABLET PO (08:11)
[2021-07-07] MEDS: predniSONE 20 MG TABLET 40 MG PO (08:11)
[2021-07-07] MEDS: Tamsulosin HCL 0.4 MG CAPSULE PO (08:12)
--- NOTE | 2021-07-07 08:59 | P.CDIC_ITS ---
CDI Concurrent Query Documentation Clarification: PHYSICIAN'S DOCUMENTATION REQUEST Date of Query: 07/07/21 0900 Patient Name: Anna Marie Black Admit Date: 06/27/21 Dear Doctor, Please review the following and provide your response in the progress notes. Clinical Indicators: The diagnosis of asthma was documented in the record on [enter date]. Additional clinical indicators from the record include: Risk Factors/Clinical Indicators/Treatments Surgery note 06/29 - Shortness of breath, dry cough, increasing frequency of productive cough, Reports SOB associated with her asthma. Respiratory treatment. Albuterol, Prednisone. Based on the above, please clarify in the Progress Notes further specificity regarding the type and acuity of the asthma: Type: * Mild intermittent - less than 2x/week * Mild persistent - more than 2x/week but not daily * Moderate persistent - daily and may restrict physical activity * Severe persistent - throughout the day with frequent attacks, limiting activities * Other ? please specify * Unable to determine Acuity: * With acute exacerbation * With status asthmaticus * Uncomplicated * Unable to determine Use of terms such as suspected, likely, concern for, or probable (associated with a specific diagnosis that is being evaluated, monitored, or treated as if it exists) are acceptable and can be coded in the inpatient setting, when docum ented at the time of discharge. Thank you, Carol Izaguirre, DIOR, CDIS Extension: [phone] Please use your independent medical judgment in providing your response. THIS QUERY IS PART OF THE PERMANENT MEDICAL RECORD Provider Response: Other Other Diagnosis: Mild intermittent asthma
--- NOTE | 2021-07-07 08:59 | MHC.CDI.CONC ---
CDI Concurrent Query Documentation Clarification: PHYSICIAN'S DOCUMENTATION REQUEST Date of Query: 07/07/21 0900 Patient Name: Anna Marie Black Admit Date: 06/27/21 Dear Doctor, Please review the following and provide your response in the progress notes. Clinical Indicators: The diagnosis of asthma was documented in the record on [enter date]. Additional clinical indicators from the record include: Risk Factors/Clinical Indicators/Treatments Surgery note 06/29 - Shortness of breath, dry cough, increasing frequency of productive cough, Reports SOB associated with her asthma. Respiratory treatment. Albuterol, Prednisone. Based on the above, please clarify in the Progress Notes further specificity regarding the type and acuity of the asthma: Type: Mild intermittent - less than 2x/week Mild persistent - more than 2x/week but not daily Moderate persistent - daily and may restrict physical activity Severe persistent - throughout the day with frequent attacks, limiting activities Other ? please specify Unable to determine Acuity: With acute exacerbation With status asthmaticus Uncomplicated Unable to determine Use of terms such as suspected, likely, concern for, or probable (associated with a specific diagnosis that is being evaluated, monitored, or treated as if it exists) are acceptable and can be coded in the inpatient setting, when documented at the time of discharge. Thank you, Carol Izaguirre, DIOR, CDIS Extension: [phone] Please use your independent medical judgment in providing your response. THIS QUERY IS PART OF THE PERMANENT MEDICAL RECORD Provider Response: Other Other Diagnosis: Mild intermittent asthma
--- NOTE | 2021-07-07 09:59 | P.CDIC_ITS ---
CDI Concurrent Query Documentation Clarification: PHYSICIAN'S DOCUMENTATION REQUEST Date of Query: 07/07/21 0959 Patient Name: Anna Marie Black Admit Date: 06/27/21 Dear Doctor, A review of the medical record indicates additional documentation may be needed. Please review below and update the documentation accordingly. Risk Factors/Clinical Indicators/Treatments Body Mass Index: 36.3 5' 3 in height If possible, please provide an associated diagnosis related to the abnormal BMI, such as: For a BMI >= 35: * Overweight * Obesity * Due to excess calories * Drug induced * Due to other cause * Severe or Morbid Obesity * With alveolar hypoventilation * Without alveolar hypoventilation Or: * BMI is not significant * Other (please specify) * Unable to determine Use of terms such as suspected, likely, concern for, or probable (associated with a specific diagnosis that is being evaluated, monitored, or treated as if it exists) are acceptable and can be coded in the inpatient setting, when documented at the time of discharge. Thank you, Carol Izaguirre [facility], CDIS Extension: [phone] Please use your independent medical judgment in providing your response. THIS QUERY IS PART OF THE PERMANENT MEDICAL RECORD Provider Response: Other Other Diagnosis: Obesity due to excess calories
--- NOTE | 2021-07-07 09:59 | MHC.CDI.CONC ---
CDI Concurrent Query Documentation Clarification: PHYSICIAN'S DOCUMENTATION REQUEST Date of Query: 07/07/21 0959 Patient Name: Anna Marie Black Admit Date: 06/27/21 Dear Doctor, A review of the medical record indicates additional documentation may be needed. Please review below and update the documentation accordingly. Risk Factors/Clinical Indicators/Treatments Body Mass Index: 36.3 5' 3 in height If possible, please provide an associated diagnosis related to the abnormal BMI, such as: For a BMI >= 35: Overweight Obesity Due to excess calories Drug induced Due to other cause Severe or Morbid Obesity With alveolar hypoventilation Without alveolar hypoventilation Or: BMI is not significant Other (please specify) Unable to determine Use of terms such as suspected, likely, concern for, or probable (associated with a specific diagnosis that is being evaluated, monitored, or treated as if it exists) are acceptable and can be coded in the inpatient setting, when documented at the time of discharge. Thank you, Carol Izaguirre [facility], CDIS Extension: [phone] Please use your independent medical judgment in providing your response. THIS QUERY IS PART OF THE PERMANENT MEDICAL RECORD Provider Response: Other Other Diagnosis: Obesity due to excess calories
[2021-07-07] MEDS: HYDROmorphone HCl 0.5 MG/0.5 ML SYRINGE IVPUSH (11:34)
[2021-07-07 11:44] LABS: Glucose, Whole Blood 315 mg/dL (60-115)
--- NOTE | 2021-07-07 11:46 | P.DS_ITS ---
DS: Providers Provider Date of Service: 07/07/21 Date of admission: 06/27/21 01:55 Date of discharge: 07/07/21 Primary care physician: Angie Wing MD Consults: 06/27/21 03:45 Consult to Hospitalist Routine Consulting Provider: Hospitalist Reason For Exam: abdominal pain, med management 06/28/21 07:39 Consult to Infectious Diseases Routine Consulting Provider: Lulu Avina Reason for consultation: wound culture ecoli, Klebsiella Has provider been notified: No 07/02/21 08:17 Consult to Urology Routine Consulting Provider: Aravind Agosto Reason for consultation: Left back pain, s/p nephrostomy tube Has provider been notified: No 07/03/21 07:31 Consult to Hospitalist Routine Consulting Provider: Hospitalist Reason For Exam: Diabetes, persistent elevated glucose DS: Diagnosis Discharge Diagnosis (1) Abdominal pain: Status: Acute (2) Wound drainage: Status: Acute DS: Summary Hospital Course Hospital Course: Anna Marie Black is a 50 year old female presenting to the emergency department with complaints of diffuse abdominal pain. She has a history of asthma, diabetes, and blood clots, for which she is on Eliquis.? She has a complicated surgical history after being found in respiratory arreat due to asthma in December 2020.? [place] [facility] [place] necrotizing pancreatitis, requiring multiple surgeries involving debridement and cholecystectomy.? 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 She reports a graft placement after which she reports persistent abdominal pain.? She reports a three day history of increased abdominal pain with nausea, vomiting, non-bloody diarrhea, subjective fever, and chills.? She is being treated for a UTI and kidney infection, and recently underwent a cystoscopy with stent placement earlier this month.? She presented to the ED and was found to have abdominal tenderness diffusely without peritoneal signs.? WBC and lactate were normal.? CT of the abdomen and pelvis revealed Interval development of small pockets of extraluminal gas in the left upper quadrant, centered within the region of scarring involving the pancreas, related to chronic pancreatitis, which tethers the posterior stomach, splenic flexure and third/fourth portions of the duodenum. The extraluminal gas appears to originate from the medial border of the splenic flexure/proximal descending colon. No drainable collection. Hospital Course Patient was admitted to the surgical service and started on IV Zosyn. She rec eived 2 CT scans which failed to show acute pathology other than chronic issues. She was managed with IV Zosyn and pain medicine. She was transferred to the medical service given that there was no surgical intervention indicated. She continued to improve and at this time is wishing discharge. Believe she is medically stable for same. She completed a course of Zosyn and therefore will not be set home on any further antibiotics. Short course of oxycodone was given. She will follow-up with her surgeons at [facility] and her PCP Time Spent with Patient Time attestation: Total time spent providing and/or coordinating discharge services: Discharge coordination time: Greater than 30 minutes Quality: Safe Use of Opioids Does Pt have an Active Cancer Diagnosis on the Problem List?: No Quality: Stroke Does the patient have a stroke diagnosis?: No Physical Exam Vital Signs: Vital Signs: Last Vital Signs Temp 98.6 F 07/07/21 08:00 Pulse 94 07/07/21 10:57 Resp 18 07/07/21 10:57 BP 161/84 H 07/07/21 09:34 Pulse Ox 95 07/07/21 09:34 BMI result Body Mass Index 36.3 Const: Other: Awake alert no acute distress Resp: Other: Clear to auscultation bilaterally no rales rhonchi wheezes Cardio: Other: No S4; positive S1-S2; no S3 murmurs rubs gallops GI: Other: Soft nondistended; bowel sounds x4 quadrants. Minimal tenderness across lower abdomen without overt peritoneal signs Extrem: Other: No edema bilateral DS: Data Data Completed and Pending Completed studies during hospitalization [Text1]: Procedures Dilation of Left Ureter with Intraluminal Device, Via Natural or Artificial Opening Endoscopic (06/11/21) Fluoroscopy of Left Kidney, Ureter and Bladder (06/11/21) Labs on day of discharge: Laboratory Results - last 24 hr 07/06/21 07/06/21 07/07/21 15:32 19:53 07:46 POC Glucose 373 H* 349 H 142 H 07/07/21 11:40 POC Glucose 315 H Discharge Plan Discharge Patient Disposition: Home, Self-Care Discharge Diagnosis: abdominal pain Referrals: Angie Wing MD [Primary Care Provider] - 1 Week Discharge Medications: New tamsulosin 0.4 mg Capsule 0.4 mg PO DAILY Qty: 30 0RF oxycodone 5 mg Tablet 5 mg PO Q4H PRN (Reason: Pain, Moderate (Pain Scale 4-6) Qty: 20 0RF Continued promethazine 25 mg tablet 1 tab PO Q8H PRN (Reason: Nausea) 0RF escitalopram oxalate 20 mg tablet 1 tab PO DAILY 0RF furosemide 40 mg tablet 1 tab PO DAILY 0RF atorvastatin 10 mg tablet 1 tab PO BEDTIME 0RF clonazepam 1 mg tablet 1 tab PO BID PRN (Reason: Anxiety) 0RF trazodone 100 mg tablet 1 tab PO BEDTIME PRN (Reason: Sleep) 0RF metformin 500 mg tablet extended release 24 hr 2 tab PO BIDAC 0RF glipizide 5 mg tablet 1 tab PO BIDAC 0RF Latuda 40 mg tablet 1 tab PO BEDTIME 0RF Eliquis 5 mg tablet 5 mg PO BID 0RF albuterol sulfate 2.5 mg/0.5 mL solution for nebulization 2.5 mg inhalation Q4H PRN (Reason: shortness of breath or wheezing) 0RF Discharge Orders: Discharge Order (Routine); Ordered 07/07/21 Ordered By: Marcial Sr Diet: advance to usual diet Activity on Discharge: As tolerated Stand Alone Forms: Patient Portal Discharge page Care Plan Goals: Use oxycodone for pain; follow-up with the surgeon at [facility] as scheduled Health Concerns: Diet as tolerated Plan of Treatment: Services in place; resume when home Assessment: See charged summary
--- NOTE | 2021-07-07 11:57 | MHC.CM.PN ---
Addendum entered by Serena Jackson 07/07/21 14:26: CORRECTION: DC SUMMARY FAXED TO [facility]. [facility] WAS ACTIVE PRIOR TO ADMISSION AND THEY ARE WILLING TO SEE HER STILL FOR SERVICES Original Note: PATIENT IS DC HOME - [facility] IS IN ROOM TO TRANSPORT.
[2021-07-07] MEDS: Insulin Lispro 100 UNIT/ML 3 ML VIAL SUBCUT (12:14)
== END 2021-07-07 12:59 | disposition home health service (06) | DRG 282 ==
LOC: HO.ED 06-27 01:59 → HO.EDOVER 06-27 02:12 → HO.S3 06-27 03:39
PROVIDERS: Admitting Provider Surgery; Emergency Provider Student in an Organized Health Care Education/Training Program; PCP Internal Medicine; Visit Provider Hospitalist
DX: K86.89 Other specified diseases of pancreas (principal); I51.81 Takotsubo syndrome; K52.9 Noninfective gastroenteritis and colitis, unspecified; Z93.0 Tracheostomy status; E11.9 Type 2 diabetes mellitus without complications; F31.9 Bipolar disorder, unspecified; E66.9 Obesity, unspecified; J45.30 Mild persistent asthma, uncomplicated; Z20.822 Contact with and (suspected) exposure to COVID-19; Z86.711 Personal history of pulmonary embolism; Z86.718 Personal history of other venous thrombosis and embolism; Z68.36 Body mass index [BMI] 36.0-36.9, adult; Z79.01 Long term (current) use of anticoagulants; Z88.8 Allergy status to other drugs, medicaments and biological substances; Z79.84 Long term (current) use of oral hypoglycemic drugs; Z79.899 Other long term (current) drug therapy
CPT/HCPCS: 36415; 74177; 80048; 80053; 80076; 81001; 82150; 82947; 83605; 83690; 83735; 85025; 85027; 85610; 87040; 87086; 87502; 87635; 93005; 94640; 96361; 96365; 96375; 96376; 97110; 97162; 97163; 97530; 99285; J1170; J2405; J2543; J3010; J3475; Q0163; Q9967

== ENCOUNTER 2021-09-10 20:02 | Emergency (ER) | payer OTHER, SELFPAY ==
--- NOTE | ~2021-09-10 | XR_ITS ---
EXAMINATION: XR SHOULDER, LEFT CLINICAL INFORMATION: Left shoulder pain COMPARISON: None TECHNIQUE: Two views of the left shoulder. FINDINGS: No fracture or dislocation. The glenohumeral joint is well aligned. Mild hypertrophic degenerative change of the acromioclavicular joint. Globular calcification adjacent to the left humeral head consistent with calcific tendinosis of the rotator cuff. XR/XR shoulder LT min 2V IMPRESSION: Calcific tendinosis of the rotator cuff. Mild degenerative change.
--- NOTE | ~2021-09-10 | XR_ITS ---
EXAMINATION: XR CHEST CLINICAL INFORMATION: Cough. COMPARISON: Chest x-ray 06/11/2021 TECHNIQUE: Frontal view of the chest was obtained. 8:38 PM FINDINGS: No significant abnormality is noted involving the heart, lungs, mediastinum, bony thorax or soft tissues. XR/XR chest 1V IMPRESSION: Unremarkable examination.
[2021-09-10 20:06] VITALS: BP 139/81; PULSE 104; RESP 18; TEMP 36.9; O2SAT 95; BMI 36.4
--- NOTE | 2021-09-10 20:06 | ECG_ITS ---
Test Reason : shoulder pain Blood Pressure : / mmHG Vent. Rate : 102 BPM Atrial Rate : 102 BPM P-R Int : 170 ms QRS Dur : 088 ms QT Int : 390 ms P-R-T Axes : 047 -10 053 degrees QTc Int : 508 ms Sinus tachycardia Cannot rule out Anterior infarct (cited on or before 11-JUN-2021) Abnormal ECG When compared with ECG of 27-JUN-2021 02:16, No significant change was found Referred By: Generic ED Physician Electronically Signed By:DENIS GAMBINO
[2021-09-10 20:28] LABS: MANUAL DIFF FLAG NO
[2021-09-10 20:30] LABS: Basophils Percent Auto 0.2 % (0-2); Eosinophils Absolute Auto 0.3 X10*3/uL (0.0-0.4); Eosinophils Percent Auto 2.8 % (0-4); Hematocrit 32.5 % (37.0-47.0); Hemoglobin 10.3 g/dl (12.0-16.0); Imm Gran Abs Auto 0.03 X10*3/uL (0.00-0.03); Imm Gran Pct Auto 0.3 % (0.0-0.4); Lymphocytes Absolute Auto 1.1 X10*3/uL (1.2-4.9); Lymphocytes Percent Auto 12.1 % (20-40); Mean Corpuscular HGB Conc 31.7 g/dl (31.0-35.0); Mean Corpuscular Hemoglobin 27.8 pg (27.0-33.0); Mean Corpuscular Volume 87.6 fL (80.0-98.0); Mean Platelet Volume 9.5 fL (9.4-12.3); Monocytes Absolute Auto 0.6 X10*3/uL (0.1-1.2); Neutrophils Absolute Auto 7.4 x10*3/uL (2.0-8.3); Neutrophils Percent Auto 78.6 % (45-73); Platelet Count 375 X10*3/uL (160-400); Red Blood Count 3.71 X10*6/uL (4.20-5.50); Red Cell Distribution Width 13.9 % (11.0-16.0); White Blood Count 9.4 X10*3/uL (4.8-10.8)
[2021-09-10 20:49] LABS: Troponin-I High Sensitivity < 3.5 ng/L (<3.5-17.0)
[2021-09-10 21:05] LABS: Alanine Aminotransferase 22 U/L (0-31); Albumin Level 3.7 g/dL (3.5-5.0); Alkaline Phosphatase 297 U/L (39-117); Anion Gap 12 (12-20); Aspartate Amino Transferase 31 U/L (5-31); Bilirubin Total 0.3 mg/dL (0.0-1.0); Blood Urea Nitrogen 15 mg/dL (9-16); Calcium 9.3 mg/dL (8.4-10.2); Carbon Dioxide 32 mmol/L (22-29); Chloride 97 mmol/L (96-108); Creatinine Clr Calc Pharmacy 53.6; Estimated Glomerular Filt Rate 41; Glucose Random 227 mg/dL (60-115); Potassium 4.4 mmol/L (3.3-5.1); Sodium 137 mmol/L (135-145)
[2021-09-11 00:58] VITALS: BP 143/77; PULSE 102; RESP 20; O2SAT 99
--- NOTE | 2021-09-11 01:15 | ED_ITS ---
HPI - Extremity Problem General Chief complaint: Dyspnea Stated complaint: left shoulder pain, sob Time Seen by Provider: 09/11/21 01:10 Source: patient Mode of arrival: ambulatory Limitations: no limitations History of Present Illness HPI Narrative: Patient complaining of 1 week of left shoulder pain atraumatic also complaining of issues with trach care saturating 95% room air. No fever no chills no rash no other joint involvement patient tearful when examined Related Data Home Medications Medication Instructions Recorded Confirmed albuterol sulfate 2.5 mg/0.5 mL 2.5 mg inhalation Q4H PRN 06/11/21 06/27/21 solution for nebulization shortness of breath or wheezing apixaban 5 mg tablet (Eliquis) 5 mg PO BID 06/11/21 06/27/21 atorvastatin 10 mg tablet 1 tab PO BEDTIME 06/11/21 06/27/21 clonazepam 1 mg tablet 1 tab PO BID PRN Anxiety 06/11/21 06/27/21 furosemide 40 mg tablet 1 tab PO DAILY 06/11/21 06/27/21 glipizide 5 mg tablet 1 tab PO BIDAC 06/11/21 06/27/21 lurasidone 40 mg tablet (Latuda) 1 tab PO BEDTIME 06/11/21 06/27/21 metformin 500 mg tablet,extended 2 tab PO BIDAC 06/11/21 06/27/21 release 24 hr trazodone 100 mg tablet 1 tab PO BEDTIME PRN Sleep 06/11/21 06/27/21 escitalopram oxalate 20 mg tablet 1 tab PO DAILY 06/26/21 06/27/21 promethazine 25 mg tablet 1 tab PO Q8H PRN Nausea 06/26/21 06/27/21 Previous Rx's Medication Instructions Recorded oxycodone 5 mg tablet 5 mg PO Q6H PRN pain (scale score 07/07/21 7-10) #20 tabs tamsulosin 0.4 mg capsule 0.4 mg PO DAILY #30 caps 07/07/21 oxycodone-acetaminophen 5 mg-325 1 tab PO Q6H PRN pain #20 tabs 09/11/21 mg tablet (Percocet) Allergies Allergy/AdvReac Type Severity Reaction Status Date / Time pantoprazole Allergy Unknown Verified 06/11/21 15:17 Review of Systems Review of Systems: Yes all other systems are reviewed and are negative PMFSH Past Medical History Medical History Asthma Bipolar 1 disorder Diabetes Kidney stones Substance abuse Takotsubo cardiomyopathy UTI (urinary tract infection) Wound drainage Surgical History H/O exploratory laparotomy S/P cholecystectomy S/P ureteral stent placement Social History Social History Household Members: Spouse Housing: Apartment Do you presently have visiting nurse or other home services: Yes (visiting nurses, pt/ot) Alcohol intake: never Patient Tobacco Use Status: Never used Tobacco Advance Directives: No service: No Current occupational status: disabled Physical Exam Vital Signs: Vital Signs: Last Vital Signs Temp 98.4 F 09/10/21 20:06 Pulse 98 09/11/21 02:08 Resp 22 H 09/11/21 02:08 BP 141/97 H 09/11/21 02:08 Pulse Ox 99 09/11/21 02:08 O2 Del Method 09/11/21 02:08 BMI result Body Mass Index 36.4 Appearance: Alert. Oriented X3. Crying Eyes: PERRLA, No Nystagmus ENT: Pharynx normal. Oral Mucosa moist Neck: Normal inspection. Neck supple. Tracheostomy in place CVS: Normal heart rate and rhythm. Pulses normal. Respiratory: No respiratory distress. Equal air entry bilateral, no wheezing/rales/rhonchi Abdomen: Soft and nontender. Bowel sounds are present, no mass palpable, no CVA tenderness Skin: Skin warm and dry. Normal skin color. Normal skin turgor. Extremities: No lower extremity edema. No calf tenderness left shoulder diffuse tenderness at rotator cuff no deformity noticed Neuro: Oriented X 3. No motor deficit. No sensory deficit. MDM - Extremity (Nontraumatic) Lab Data Result diagrams: 09/10/21 20:24 09/10/21 20:23 Labs: Lab Results 09/10/21 09/10/21 09/10/21 Range/Units 20:23 20:23 20:24 WBC 9.4 (4.8-10.8) X10*3/uL RBC 3.71 L (4.20-5.50) X10*6/uL Hgb 10.3 L (12.0-16.0) g/dl Hct 32.5 L (37.0-47.0) % MCV 87.6 (80.0-98.0) fL MCH 27.8 (27.0-33.0) pg MCHC 31.7 (31.0-35.0) g/dl RDW 13.9 (11.0-16.0) % Plt Count 375 (160-400) X10*3/uL MPV 9.5 (9.4-12.3) fL Immature Gran % (Auto) 0.3 (0.0-0.4) % Neut % (Auto) 78.6 H (45-73) % Lymph % (Auto) 12.1 L (20-40) % [place] % (Auto) 6.0 (2-11) % Eos % (Auto) 2.8 (0-4) % Baso % (Auto) 0.2 (0-2) % Lymph # (Auto) 1.1 L (1.2-4.9) X10*3/uL [place] # (Auto) 0.6 (0.1-1.2) X10*3/uL Eos # (Auto) 0.3 (0.0-0.4) X10*3/uL Baso # (Auto) 0.0 (0.0-0.2) X10*3/uL Abs Immat Gran (auto) 0.03 (0.00-0.03) X10*3/uL Absolute Neuts (auto) 7.4 (2.0-8.3) x10*3/uL Absolute Nucleated RBC 0.000 (0.0-0.012) X10*3/uL Nucleated RBC % (auto) 0.0 (0.0-0.2) /100WBC Sodium 137 (135-145) mmol/L Potassium 4.4 D (3.3-5.1) mmol/L Chloride 97 (96-108) mmol/L Carbon Dioxide 32 H (22-29) mmol/L Anion Gap 12 (12-20) BUN 15 (9-16) mg/dL Creatinine 1.35 (0.5-1.4) mg/dL Estim Creat Clear Calc 53.6 Estimated GFR 41 Random Glucose 227 H (60-115) mg/dL Calcium 9.3 D (8.4-10.2) mg/dL Total Bilirubin 0.3 (0.0-1.0) mg/dL AST 31 (5-31) U/L ALT 22 (0-31) U/L Alkaline Phosphatase 297 H D (39-117) U/L Troponin I High Sens < 3.5 D (<3.5-17.0) ng/L Total Protein 7.0 (6.5-8.0) g/dL Albumin 3.7 D (3.5-5.0) g/dL Discharge Plan Discharge Clinical Impression: Tendinitis of left rotator cuff Patient Disposition: Home, Self-Care Instructions: Rotator Cuff Tendinitis (ED) Additional Instructions: Pain medication as prescribed Follow-up with PCP/Orthopedics for further evaluation treatment Prescriptions: New oxycodone-acetaminophen [Percocet] 5-325 mg tablet 1 tab PO Q6H PRN (Reason: pain) Qty: 20 0RF Rx Instructions: Partial Fill upon patient request. No Action promethazine 25 mg tablet 1 tab PO Q8H PRN (Reason: Nausea) escitalopram oxalate 20 mg tablet 1 tab PO DAILY tamsulosin 0.4 mg Capsule 0.4 mg PO DAILY Qty: 30 0RF oxycodone 5 mg tablet 5 mg PO Q6H PRN (Reason: pain (scale score 7-10)) Qty: 20 0RF furosemide 40 mg tablet 1 tab PO DAILY atorvastatin 10 mg tablet 1 tab PO BEDTIME clonazepam 1 mg tablet 1 tab PO BID PRN (Reason: Anxiety) trazodone 100 mg tablet 1 tab PO BEDTIME PRN (Reason: Sleep) metformin 500 mg tablet extended release 24 hr 2 tab PO BIDAC glipizide 5 mg tablet 1 tab PO BIDAC Latuda 40 mg tablet 1 tab PO BEDTIME Eliquis 5 mg tablet 5 mg PO BID albuterol sulfate 2.5 mg/0.5 mL solution for nebulization 2.5 mg inhalation Q4H PRN (Reason: shortness of breath or wheezing) Referrals: Max Payne MD [Physician] - 2 weeks
[2021-09-11] MEDS: HYDROmorphone HCl 1 MG/ML SYRINGE IM ×2 (01:30→02:37)
[2021-09-11 02:08] VITALS: BP 141/97; PULSE 98; RESP 22; O2SAT 99
== END 2021-09-11 03:07 | disposition home or self-care (01) ==
PROVIDERS: Emergency Provider Internal Medicine; PCP Internal Medicine
DX: M65.222 Calcific tendinitis, left upper arm (principal); M25.512 Pain in left shoulder; R06.02 Shortness of breath; R07.89 Other chest pain; Z79.899 Other long term (current) drug therapy
CPT/HCPCS: 36415; 71045; 73030; 80053; 84484; 85025; 93005; 96372; 99284; J1170

== ENCOUNTER 2021-10-02 21:03 | Emergency (ER) | payer OTHER, SELFPAY ==
[2021-10-02 21:13] VITALS: BP 127/58; PULSE 93; RESP 18; TEMP 37.1; O2SAT 93; BMI 35.9
[2021-10-02 21:34] LABS: MANUAL DIFF FLAG NO
[2021-10-02 21:49] LABS: Basophils Percent Auto 0.2 % (0-2); Eosinophils Absolute Auto 0.2 X10*3/uL (0.0-0.4); Eosinophils Percent Auto 2.7 % (0-4); Hematocrit 30.5 % (37.0-47.0); Hemoglobin 9.6 g/dl (12.0-16.0); Imm Gran Abs Auto 0.03 X10*3/uL (0.00-0.03); Imm Gran Pct Auto 0.4 % (0.0-0.4); Lymphocytes Absolute Auto 1.1 X10*3/uL (1.2-4.9); Lymphocytes Percent Auto 13.3 % (20-40); Mean Corpuscular HGB Conc 31.5 g/dl (31.0-35.0); Mean Corpuscular Hemoglobin 27.8 pg (27.0-33.0); Mean Corpuscular Volume 88.4 fL (80.0-98.0); Mean Platelet Volume 9.6 fL (9.4-12.3); Monocytes Absolute Auto 0.5 X10*3/uL (0.1-1.2); Neutrophils Absolute Auto 6.3 x10*3/uL (2.0-8.3); Neutrophils Percent Auto 77.4 % (45-73); Platelet Count 351 X10*3/uL (160-400); Red Blood Count 3.45 X10*6/uL (4.20-5.50); Red Cell Distribution Width 14.5 % (11.0-16.0); White Blood Count 8.1 X10*3/uL (4.8-10.8)
[2021-10-02 21:51] LABS: Appearance Urine CLEAR; Color Urine YELLOW; Glucose Urine UA NEG (NEG); Leukocyte Esterase Urine 3+ (NEG); Nitrite Urine POS (NEG); PH 5.5 (5.0-8.0); UACC Culture Trigger YES; Urine Blood 3+ (NEG); Urine Ketones NEG (NEG); Urine Protein 2+ MG/DL (NEG-TRACE)
[2021-10-02 21:53] LABS: Alanine Aminotransferase 19 U/L (0-31); Albumin Level 3.8 g/dL (3.5-5.0); Alkaline Phosphatase 226 U/L (39-117); Anion Gap 12 (12-20); Aspartate Amino Transferase 16 U/L (5-31); Bilirubin Total 0.3 mg/dL (0.0-1.0); Blood Urea Nitrogen 18 mg/dL (9-16); Calcium 9.2 mg/dL (8.4-10.2); Carbon Dioxide 31 mmol/L (22-29); Chloride 97 mmol/L (96-108); Creatinine Clr Calc Pharmacy 46.5; Estimated Glomerular Filt Rate 36; Glucose Random 243 mg/dL (60-115); Potassium 3.9 mmol/L (3.3-5.1); Sodium 136 mmol/L (135-145)
[2021-10-02 22:07] LABS: Bacteria Urine 2+ /LPF; Squamous Epithelial Cell Urine TRACE /LPF
--- NOTE | 2021-10-03 01:16 | ED.ABDPAIN ---
HPI - Abdominal Pain General Chief Complaint: Abdominal Pain Stated Complaint: stent needs to be removed, per Doc Time Seen by Provider: 10/02/21 21:05 Source: patient Mode of arrival: ambulatory Limitations: no limitations History of Present Illness HPI narrative: 50 yo female with hx of HLD, DM, GERD, cardiomyopathy, ureterolithiasis DVT on eliquis s/p L sided ureteral stent in June called her Urologist office today who is on vacation - she wants the stent out. She notes the pain has been getting worse. Her Urologist comes back 10/04. The office told her the ED provider could pull the stent. I explained to her we could not and that currently the local hospitals in the area including [facility], [facility], [facility], and to get Urologic intervention she would have to travel far ([facility]) she said she will not travel anywhere else at this time. MD elicited complaint: flank pain Pertinent past history: kidney stones Onset (ago): day(s) (3) Pain Consistency: constant Location: L flank Severity: moderate Quality: aching Radiation: none Migration to: no migration Exacerbating factors: movement Relieving factors: nothing Context: recent surgery/procedure and history of similar episodes Associated symptoms: nausea Related Data Home Medications Medication Instructions Recorded Confirmed albuterol sulfate 2.5 mg/0.5 mL 2.5 mg inhalation Q4H PRN 06/11/21 06/27/21 solution for nebulization shortness of breath or wheezing apixaban 5 mg tablet (Eliquis) 5 mg PO BID 06/11/21 06/27/21 atorvastatin 10 mg tablet 1 tab PO BEDTIME 06/11/21 06/27/21 clonazepam 1 mg tablet 1 tab PO BID PRN Anxiety 06/11/21 06/27/21 furosemide 40 mg tablet 1 tab PO DAILY 06/11/21 06/27/21 glipizide 5 mg tablet 1 tab PO BIDAC 06/11/21 06/27/21 lurasidone 40 mg tablet (Latuda) 1 tab PO BEDTIME 06/11/21 06/27/21 metformin 500 mg tablet,extended 2 tab PO BIDAC 06/11/21 06/27/21 release 24 hr trazodone 100 mg tablet 1 tab PO BEDTIME PRN Sleep 06/11/21 06/27/21 escitalopram oxalate 20 mg tablet 1 tab PO DAILY 06/26/21 06/27/21 promethazine 25 mg tablet 1 tab PO Q8H PRN Nausea 06/26/21 06/27/21 albuterol sulfate 2.5 mg/3 mL mg inhalation Q4H PRN wheezing 09/11/21 (0.083 %) solution for nebulization albuterol sulfate 90 mcg/actuation 2 puff inhalation Q4H PRN wheezing 09/11/21 aerosol inhaler (ProAir HFA) famotidine 20 mg tablet 20 mg PO BID 09/11/21 fluticasone propionate 50 1 spray intranasal DAILY 09/11/21 mcg/actuation nasal spray,suspension lurasidone 60 mg tablet (Latuda) 60 mg PO BEDTIME 09/11/21 oxcarbazepine 300 mg tablet 300 mg PO BID 09/11/21 Previous Rx's Medication Instructions Recorded oxycodone 5 mg tablet 5 mg PO Q6H PRN pain (scale score 07/07/21 7-10) #20 tabs tamsulosin 0.4 mg capsule 0.4 mg PO DAILY #30 caps 07/07/21 oxycodone-acetaminophen 5 mg-325 1 tab PO Q6H PRN pain #20 tabs 09/11/21 mg tablet (Percocet) ciprofloxacin HCl 250 mg tablet 250 mg PO BID 5 days #10 tabs 10/02/21 cefuroxime axetil 500 mg tablet 500 mg PO BID 10 days #20 tabs 10/03/21 morphine 15 mg immediate release 15 mg PO TID PRN pain #10 tabs 10/03/21 tablet promethazine 25 mg tablet 25 mg PO TID PRN nausea and 10/03/21 vomiting #20 tabs Allergies Allergy/AdvReac Type Severity Reaction Status Date / Time pantoprazole Allergy Unknown Verified 10/02/21 21:13 Review of Systems Review of Systems Constitutional : No Fever, No Chills ENT/Mouth : No sore throat Eyes: No Eye Pain, No Swelling, No Redness Cardiovascular : No Chest Pain, No SOB Respiratory : No Cough, No Sputum, No Wheezing Gastrointestinal : positive Nausea, no Vomiting, No Diarrhea, positive abdominal pain Genitourinary : no Dysuria, no urinary frequency, no Hematuria, pos Flank Pain, no hesitancy Musculoskeletal : No joint pain, No Myalgias Skin : No Skin Lesions, No rash Neuro : No Weakness, No Numbness, No Headache Psych : No Anxiety/Panic, No Depression Heme/Lymph: No Bruising, No Lymphadenopathy Endocrine : No Polyuria, No Polydipsia All other systems reviewed and are negative [facility] Past Medical History Attestation statement: The following information was validated with the patient. Medical History Asthma Bipolar 1 disorder Diabetes Kidney stones Substance abuse Takotsubo cardiomyopathy UTI (urinary tract infection) Wound drainage Surgical History H/O exploratory laparotomy S/P cholecystectomy S/P ureteral stent placement Social History Social History Household Members: Spouse Housing: Apartment Do you presently have visiting nurse or other home services: Yes (visiting nurses, pt/ot) Alcohol intake: never Patient Tobacco Use Status: Never used Tobacco Use of substances other than those prescribed or required for medical reasons: No Advance Directives: No service: No Current occupational status: disabled Physical Exam ED Vital Signs: Vital Signs - 24 hr 10/02/21 21:13 10/03/21 01:52 10/03/21 01:52 Temperature 98.7 F 98.5 F Pulse Rate 93 89 86 Respiratory Rate 18 16 Blood Pressure 127/58 L 136/82 136/82 Pulse Oximetry 93 98 99 Oxygen Delivery Method Room Air Room Air Room Air BMI result Body Mass Index 35.9 Appearance: Alert. Oriented X3. No acute distress. Eyes: Pupils equal, round and reactive to light. ENT: Pharynx normal. Neck: Normal inspection. Neck supple. CVS: Normal heart rate and rhythm. Pulses normal. Respiratory: No respiratory distress. Breath sounds normal. Abdomen: Soft and nontender. mid L CVA ttp Skin: Skin warm and dry. Normal skin color. Normal skin turgor. Extremities: No lower extremity edema. No calf ttp Neuro: Oriented X 3. No motor deficit. No sensory deficit. Course Course Course Narrative: repeatedly asking for IV dilaudid attempt to switch to oral oxycodone, patient did not want transfer to outside facility given our lack of urologic coverage plan to start on ceftin and oxycodone tolerated a sandwhich stable for DC MDM - Abdominal Pain MDM Narrative Medical decision making narrative: 50 yo female with hx of HLD, DM, GERD, cardiomyopathy, ureterolithiasis DVT on eliquis s/p L sided ureteral stent comes in with c/o L flank pain wants her stent out explained this is not done in ER when given her options she states she will wait until her Urologist returns in 1 day. At this time mild dehydration, IVF, IV dilaudid for pain. She also has a UTI, cultures/lactic acid, ceftriaxone ordered. No fevers, no WBC count, no vomiting. Lab Data Result diagrams: 10/02/21 21:19 10/02/21 21:19 Labs: Lab Results 10/02/21 10/02/21 10/02/21 Range/Units 21:19 21:19 21:42 WBC 8.1 (4.8-10.8) X10*3/uL RBC 3.45 L (4.20-5.50) X10*6/uL Hgb 9.6 L (12.0-16.0) g/dl Hct 30.5 L (37.0-47.0) % MCV 88.4 (80.0-98.0) fL MCH 27.8 (27.0-33.0) pg MCHC 31.5 (31.0-35.0) g/dl RDW 14.5 (11.0-16.0) % Plt Count 351 (160-400) X10*3/uL MPV 9.6 (9.4-12.3) fL Immature Gran % (Auto) 0.4 (0.0-0.4) % Neut % (Auto) 77.4 H (45-73) % Lymph % (Auto) 13.3 L (20-40) % [place] % (Auto) 6.0 (2-11) % Eos % (Auto) 2.7 (0-4) % Baso % (Auto) 0.2 (0-2) % Lymph # (Auto) 1.1 L (1.2-4.9) X10*3/uL [place] # (Auto) 0.5 (0.1-1.2) X10*3/uL Eos # (Auto) 0.2 (0.0-0.4) X10*3/uL Baso # (Auto) 0.0 (0.0-0.2) X10*3/uL Abs Immat Gran (auto) 0.03 (0.00-0.03) X10*3/uL Absolute Neuts (auto) 6.3 (2.0-8.3) x10*3/uL Absolute Nucleated RBC 0.000 (0.0-0.012) X10*3/uL Nucleated RBC % (auto) 0.0 (0.0-0.2) /100WBC Sodium 136 (135-145) mmol/L Potassium 3.9 (3.3-5.1) mmol/L Chloride 97 (96-108) mmol/L Carbon Dioxide 31 H (22-29) mmol/L Anion Gap 12 (12-20) BUN 18 H (9-16) mg/dL Creatinine 1.54 H (0.5-1.4) mg/dL Estim Creat Clear Calc 46.5 Estimated GFR 36 Random Glucose 243 H (60-115) mg/dL Lactic Acid (0.5-2.0) mmol/L Calcium 9.2 (8.4-10.2) mg/dL Total Bilirubin 0.3 (0.0-1.0) mg/dL AST 16 D (5-31) U/L ALT 19 (0-31) U/L Alkaline Phosphatase 226 H D (39-117) U/L Total Protein 7.0 (6.5-8.0) g/dL Albumin 3.8 (3.5-5.0) g/dL Urine Color YELLOW Urine Appearance CLEAR Urine pH 5.5 (5.0-8.0) Ur Specific [place] 1.020 (1.005-1.025) Urine Protein 2+ H (NEG-TRACE) MG/DL Urine Glucose (UA) NEG (NEG) MG/DL Urine Ketones NEG (NEG) MG/DL Urine Blood 3+ H (NEG) Urine Nitrite POS H (NEG) Ur Leukocyte Esterase 3+ H (NEG) Urine RBC 5-9 H (0) /HPF Urine WBC 76-150 H (0-4) /HPF Ur Squamous Epith Cells TRACE /LPF Urine Bacteria 2+ /LPF // Range/Units 01:35 WBC (4.8-10.8) X10*3/uL RBC (4.20-5.50) X10*6/uL Hgb (12.0-16.0) g/dl Hct (37.0-47.0) % MCV (80.0-98.0) fL MCH (27.0-33.0) pg MCHC (31.0-35.0) g/dl RDW (11.0-16.0) % Plt Count (160-400) X10*3/uL MPV (9.4-12.3) fL Immature Gran % (Auto) (0.0-0.4) % Neut % (Auto) (45-73) % Lymph % (Auto) (20-40) % [place] % (Auto) (2-11) % Eos % (Auto) (0-4) % Baso % (Auto) (0-2) % Lymph # (Auto) (1.2-4.9) X10*3/uL [place] # (Auto) (0.1-1.2) X10*3/uL Eos # (Auto) (0.0-0.4) X10*3/uL Baso # (Auto) (0.0-0.2) X10*3/uL Abs Immat Gran (auto) (0.00-0.03) X10*3/uL Absolute Neuts (auto) (2.0-8.3) x10*3/uL Absolute Nucleated RBC (0.0-0.012) X10*3/uL Nucleated RBC % (auto) (0.0-0.2) /100WBC Sodium (135-145) mmol/L Potassium (3.3-5.1) mmol/L Chloride (96-108) mmol/L Carbon Dioxide (22-29) mmol/L Anion Gap (12-20) BUN (9-16) mg/dL Creatinine (0.5-1.4) mg/dL Estim Creat Clear Calc Estimated GFR Random Glucose (60-115) mg/dL Lactic Acid 1.6 (0.5-2.0) mmol/L Calcium (8.4-10.2) mg/dL Total Bilirubin (0.0-1.0) mg/dL AST (5-31) U/L ALT (0-31) U/L Alkaline Phosphatase (39-117) U/L Total Protein (6.5-8.0) g/dL Albumin (3.5-5.0) g/dL Urine Color Urine Appearance Urine pH (5.0-8.0) Ur Specific [place] (1.005-1.025) Urine Protein (NEG-TRACE) MG/DL Urine Glucose (UA) (NEG) MG/DL Urine Ketones (NEG) MG/DL Urine Blood (NEG) Urine Nitrite (NEG) Ur Leukocyte Esterase (NEG) Urine RBC (0) /HPF Urine WBC (0-4) /HPF Ur Squamous Epith Cells /LPF Urine Bacteria /LPF Discharge Plan Discharge Clinical Impression: Acute flank pain, Acute dehydration UTI (urinary tract infection) Qualifiers: Urinary tract infection type: acute cystitis Hematuria presence: without hematuria Qualified Code(s): N30.00 - Acute cystitis without hematuria Patient Disposition: Home, Self-Care Instructions: Dehydration (ED), Urinary Tract Infection in Women (ED), Flank Pain (ED) Additional Instructions: return to ED for any worsening symptoms or concerns repeat kidney function by Tuesday with your primary care doctor Prescriptions: New cefuroxime axetil 500 mg tablet 500 mg PO BID 10 Days Qty: 20 0RF morphine 15 mg tablet 15 mg PO TID PRN (Reason: pain) Qty: 10 0RF Rx Instructions: partial fill okay; Partial Fill upon patient request. promethazine 25 mg tablet 25 mg PO TID PRN (Reason: nausea and vomiting) Qty: 20 0RF No Action ciprofloxacin HCl 250 mg tablet 250 mg PO BID 5 Days Qty: 10 0RF promethazine 25 mg tablet 1 tab PO Q8H PRN (Reason: Nausea) escitalopram oxalate 20 mg tablet 1 tab PO DAILY tamsulosin 0.4 mg Capsule 0.4 mg PO DAILY Qty: 30 0RF oxycodone 5 mg tablet 5 mg PO Q6H PRN (Reason: pain (scale score 7-10)) Qty: 20 0RF furosemide 40 mg tablet 1 tab PO DAILY atorvastatin 10 mg tablet 1 tab PO BEDTIME clonazepam 1 mg tablet 1 tab PO BID PRN (Reason: Anxiety) trazodone 100 mg tablet 1 tab PO BEDTIME PRN (Reason: Sleep) metformin 500 mg tablet extended release 24 hr 2 tab PO BIDAC glipizide 5 mg tablet 1 tab PO BIDAC Latuda 40 mg tablet 1 tab PO BEDTIME Eliquis 5 mg tablet 5 mg PO BID albuterol sulfate 2.5 mg/0.5 mL solution for nebulization 2.5 mg inhalation Q4H PRN (Reason: shortness of breath or wheezing) oxycodone-acetaminophen [Percocet] 5-325 mg tablet 1 tab PO Q6H PRN (Reason: pain) Qty: 20 0RF Rx Instructions: Partial Fill upon patient request. Latuda 60 mg tablet 60 mg PO BEDTIME albuterol sulfate [ProAir HFA] 90 mcg/actuation HFA aerosol inhaler 2 puff inhalation Q4H PRN (Reason: wheezing) oxcarbazepine 300 mg tablet 300 mg PO BID albuterol sulfate 2.5 mg /3 mL (0.083 %) solution for nebulization inhalation Q4H PRN (Reason: wheezing) fluticasone propionate 50 mcg/actuation spray,suspension 1 spray intranasal DAILY famotidine 20 mg tablet 20 mg PO BID Referrals: Aravind Agosto MD [Physician] - 10/05/21
[2021-10-03 01:52] VITALS: BP 136/82; PULSE 86; PULSE 89; RESP 16; TEMP 36.9; O2SAT 98; O2SAT 99
[2021-10-03 01:52] LABS: Lactic Acid 1.6 mmol/L (0.5-2.0)
[2021-10-03] MEDS: ondansetron HCL 4 MG/2 ML VIAL IVPUSH (02:06)
[2021-10-03] MEDS: cefTRIAXone sodium 1 GM in 0.9 % Sodium Chloride 50 ML IV (02:07)
[2021-10-03] MEDS: 0.9 % Sodium Chloride 1,000 ML 999 ML IV (02:07)
[2021-10-03] MEDS: HYDROmorphone HCl 0.5 MG/0.5 ML SYRINGE IVPUSH (03:00)
[2021-10-03] MEDS: diphenhydrAMINE HCL 50 MG/ML VIAL 25 MG IVPUSH (03:10)
[2021-10-03] MEDS: Metoclopramide HCl 10 MG/2 ML VIAL IVPUSH (03:10)
[2021-10-03] MEDS: oxyCODONE HCl Immed Release 5 MG TABLET 10 MG PO (03:35)
[2021-10-03 03:56] VITALS: BP 106/66; PULSE 82; RESP 16; TEMP 36.8; O2SAT 98
== END 2021-10-03 04:04 | disposition home or self-care (01) ==
PROVIDERS: Emergency Provider Emergency Medicine; PCP Internal Medicine
DX: N30.00 Acute cystitis without hematuria (principal); B96.1 Klebsiella pneumoniae [K. pneumoniae] as the cause of diseases classified elsewhere; B95.2 Enterococcus as the cause of diseases classified elsewhere; R10.9 Unspecified abdominal pain; E86.0 Dehydration; Z96.0 Presence of urogenital implants
CPT/HCPCS: 36415; 80053; 81001; 83605; 85025; 87040; 87086; 87088; 87186; 96361; 96365; 96375; 99284; 99285; J0696; J1170; J1200; J2405; J2765

== ENCOUNTER → 2021-10-07 11:10 | Outpatient (BNVA) | payer OTHER, SELFPAY | PROVIDERS: PCP Internal Medicine; Visit Provider Urology | DX: N20.0 Calculus of kidney (principal) | CPT/HCPCS: 52310; 99212 ==

== ENCOUNTER 2021-10-27 15:02 | Inpatient (IN) | payer OTHER, SELFPAY ==
--- NOTE | ~2021-10-27 | CT_ITS ---
EXAMINATION: CT ABDOMEN AND PELVIS WITHOUT CONTRAST CLINICAL INFORMATION: Left flank pain. History of kidney stones. COMPARISON: CT abdomen pelvis 07/03/2021 TECHNIQUE: Multidetector volumetric imaging was performed from the superior aspect of the liver through the pubic symphysis. Sagittal and coronal reformatted images were obtained on the technologist's workstation. This CT examination was performed using dose optimization techniques as appropriate, variously including the following: *Automated exposure control *Adjustment of mA and/or kV according to patient size (this includes techniques or standardized protocols for targeted exams where dose is matched to indication/reason for exam; i.e. extremities or head) *Use of iterative reconstruction technique DLP: 791 mGy-cm FINDINGS: LUNG BASES: There is platelike atelectasis right lower lobe and lingula. The heart size is normal. LIVER, GALLBLADDER, AND BILIARY TREE: The liver is normal in size, shape, and diffusely attenuated. However there is further test attenuation seen along the anterior segments of right and left hepatic lobe when compared to previous exam, question artifact versus edema. No biliary ductal dilatation is present. The gallbladder is partially distended and appears unremarkable. PANCREAS: The pancreas is atrophic SPLEEN: Unremarkable. ADRENAL GLANDS: Unremarkable. KIDNEYS AND URETERS: The kidneys are normal in size, shape, and attenuation. There is 3 minute nonobstructive echogenic calculi lower pole calyx right kidney. Focal hypodense areas seen in the midpole cortex right kidney question angiomyolipoma on axial image 39/3. Punctate radiopaque tubular calculi cyst in mid and lower pole left kidney. No caliectasis or hydronephrosis seen. BLADDER: Unremarkable. GASTROINTESTINAL TRACT: There is moderate stool in the colon without distention. The small bowel loops are normal caliber. Appendix is not seen. The stomach is nondistended. Previously visualized dictated extraluminal gas is normal visualized at this time. ABDOMINAL WALL: There is mild diastases of anterior abdominal wall with herniation of colon, small bowel loops, stomach and a left hepatic lobe into this sac. LYMPH NODES: Normal. VASCULAR: Unremarkable. PELVIC VISCERA: There is IUD well located within the endometrial canal. There is no adnexal mass or free fluid. OSSEOUS STRUCTURES: There are cages for fusion at the L4-L5 disc level. No aggressive lytic or sclerotic process seen. CT/CT abdomen pelvis wo con IMPRESSION: Punctate nonobstructive calculi in both kidneys. No caliectasis or hydronephrosis seen. Again seen is a large ventral abdominal wall diastases with herniation of colon, small bowel loops, stomach and left hepatic lobe similar previous study. Punctate extraluminal air seen on the previous exam the left lower quadrant is less evident at this time. No fistulous tract seen. Fluid in the left paracolic gutter has improved previously visualized 2 small focal collections along the fistulous tract in the left upper quadrant have significantly improved. Fleischner guidelines were followed.
[2021-10-27 17:23] VITALS: BP 119/62; PULSE 101; RESP 18; TEMP 37.6; O2SAT 96; BMI 35.4
[2021-10-27 17:52] LABS: Basophils Percent Auto 0.2 % (0-2); Eosinophils Percent Auto 0.3 % (0-4); Hematocrit 36.2 % (37.0-47.0); Hemoglobin 11.4 g/dl (12.0-16.0); Imm Gran Abs Auto 0.04 X10*3/uL (0.00-0.03); Imm Gran Pct Auto 0.3 % (0.0-0.4); Lymphocytes Absolute Auto 0.6 X10*3/uL (1.2-4.9); Lymphocytes Percent Auto 4.7 % (20-40); MANUAL DIFF FLAG SCAN; Mean Corpuscular HGB Conc 31.5 g/dl (31.0-35.0); Mean Corpuscular Hemoglobin 27.5 pg (27.0-33.0); Mean Corpuscular Volume 87.4 fL (80.0-98.0); Mean Platelet Volume 9.4 fL (9.4-12.3); Monocytes Absolute Auto 0.3 X10*3/uL (0.1-1.2); Monocytes Percent Auto 2.2 % (2-11); Neutrophils Absolute Auto 11.9 x10*3/uL (2.0-8.3); Neutrophils Percent Auto 92.3 % (45-73); Platelet Count 363 X10*3/uL (160-400); Red Blood Count 4.14 X10*6/uL (4.20-5.50); Red Cell Distribution Width 14.1 % (11.0-16.0); SCAN SMEAR FLAG 1; White Blood Count 12.9 X10*3/uL (4.8-10.8)
[2021-10-27 18:19] LABS: SLIDE REVIEW VERIFIED
[2021-10-27 18:20] LABS: Alanine Aminotransferase 22 U/L (0-31); Albumin Level 3.9 g/dL (3.5-5.0); Alkaline Phosphatase 243 U/L (39-117); Anion Gap 17 (12-20); Aspartate Amino Transferase 21 U/L (5-31); Bilirubin Total 0.3 mg/dL (0.0-1.0); Blood Urea Nitrogen 12 mg/dL (9-16); Calcium 9.3 mg/dL (8.4-10.2); Carbon Dioxide 28 mmol/L (22-29); Chloride 100 mmol/L (96-108); Creatinine Clr Calc Pharmacy 57.8; Estimated Glomerular Filt Rate 46; Glucose Random 152 mg/dL (60-115); Potassium 4.9 mmol/L (3.3-5.1); Sodium 140 mmol/L (135-145); Total Protein 7.4 g/dL (6.5-8.0)
[2021-10-27 19:51] VITALS: BP 145/83; PULSE 91; RESP 12; TEMP 36.8; O2SAT 100
--- NOTE | 2021-10-27 20:28 | ED.ABDPAIN ---
HPI - Abdominal Pain General Chief Complaint: Abdominal Pain Stated Complaint: stomach pain, R Lower back pain, hx pancreatitis Time Seen by Provider: 10/27/21 20:12 Source: patient Mode of arrival: ambulatory Limitations: no limitations History of Present Illness HPI narrative: 50-year-old female with complex medical history including a history of asthma, DM, anxiety, chronic pain on chronic opiates, necrotizing pancreatitis with hx prolonged hospitalization at [facility] in 2020, course complicated by cardiac arrest and tracheostomy, hx recurrent UTIs, hx bacteremia, history of kidney stones requiring ureteral stent on the left with recent removal [address] Agosto who presents to the ER for evaluation of lower abdominal pain, projectile vomiting and left sided back pain that started this morning. Reports the pain is along her entire lower abdomen and her left flank and left lower back. She reports it feels similar to when she had a kidney stone the past. She has no dysuria, hematuria. Denies no fever or chills. She states she can not even tolerate water without vomiting. She reports the pain is in her bilateral lower quadrants and constant. MD elicited complaint: abdominal pain and flank pain Pertinent past history: other (Necrotizing Pancreatitis requiring surgery) Onset (ago): hour(s) Pain Consistency: constant Location: RLQ and LLQ Severity: severe Pain scale (0-10): 10 Quality: stabbing Radiation: back Migration to: no migration Exacerbating factors: eating and movement Relieving factors: nothing Context: history of similar episodes Associated symptoms: nausea and vomiting Related Data Home Medications Medication Instructions Recorded Confirmed albuterol sulfate 2.5 mg/0.5 mL 2.5 mg inhalation Q4H PRN 06/11/21 06/27/21 solution for nebulization shortness of breath or wheezing apixaban 5 mg tablet (Eliquis) 5 mg PO BID 06/11/21 06/27/21 atorvastatin 10 mg tablet 1 tab PO BEDTIME 06/11/21 06/27/21 clonazepam 1 mg tablet 1 tab PO BID PRN Anxiety 06/11/21 06/27/21 furosemide 40 mg tablet 1 tab PO DAILY 06/11/21 06/27/21 glipizide 5 mg tablet 1 tab PO BIDAC 06/11/21 06/27/21 lurasidone 40 mg tablet (Latuda) 1 tab PO BEDTIME 06/11/21 06/27/21 metformin 500 mg tablet,extended 2 tab PO BIDAC 06/11/21 06/27/21 release 24 hr trazodone 100 mg tablet 1 tab PO BEDTIME PRN Sleep 06/11/21 06/27/21 escitalopram oxalate 20 mg tablet 1 tab PO DAILY 06/26/21 06/27/21 promethazine 25 mg tablet 1 tab PO Q8H PRN Nausea 06/26/21 06/27/21 albuterol sulfate 2.5 mg/3 mL mg inhalation Q4H PRN wheezing 09/11/21 (0.083 %) solution for nebulization albuterol sulfate 90 mcg/actuation 2 puff inhalation Q4H PRN wheezing 09/11/21 aerosol inhaler (ProAir HFA) famotidine 20 mg tablet 20 mg PO BID 09/11/21 fluticasone propionate 50 1 spray intranasal DAILY 09/11/21 mcg/actuation nasal spray,suspension lurasidone 60 mg tablet (Latuda) 60 mg PO BEDTIME 09/11/21 oxcarbazepine 300 mg tablet 300 mg PO BID 09/11/21 Previous Rx's Medication Instructions Recorded oxycodone 5 mg tablet 5 mg PO Q6H PRN pain (scale score 07/07/21 7-10) #20 tabs tamsulosin 0.4 mg capsule 0.4 mg PO DAILY #30 caps 07/07/21 oxycodone-acetaminophen 5 mg-325 1 tab PO Q6H PRN pain #20 tabs 09/11/21 mg tablet (Percocet) ciprofloxacin HCl 250 mg tablet 250 mg PO BID 5 days #10 tabs 10/02/21 cefuroxime axetil 500 mg tablet 500 mg PO BID 10 days #20 tabs 10/03/21 morphine 15 mg immediate release 15 mg PO TID PRN pain #10 tabs 10/03/21 tablet promethazine 25 mg tablet 25 mg PO TID PRN nausea and 10/03/21 vomiting #20 tabs fosfomycin tromethamine 3 gram 1 packet PO Q3D 2 days #2 packets 10/07/21 oral packet Allergies Allergy/AdvReac Type Severity Reaction Status Date / Time pantoprazole Allergy Unknown Verified 10/27/21 17:23 Review of Systems Review of Systems Constitutional: No Fever, No Chills ENT/Mouth: No sore throat, No Rhinorrhea, No Swallowing Difficulty Eyes: No Eye Pain, No Swelling, No Redness Cardiovascular: No Chest Pain, No SOB, No Orthopnea, No Edema Respiratory: No Cough, No Sputum, No Wheezing, No dyspnea Gastrointestinal: +Nausea, + Vomiting, No Diarrhea, + abdominal Pain, No Hematochezia, No Melena Genitourinary: No Dysuria, No Urinary Frequency, No Hematuria Musculoskeletal: No joint pain, No Myalgias Skin: No Skin Lesions, No rash Neuro: + Weakness, No Numbness, No Dizziness, No Headache Psych: No Anxiety/Panic, No Depression Heme/Lymph: No Bruising, No Lymphadenopathy Endocrine: No Polyuria, No Polydipsia [facility] Past Medical History Medical History (Updated 10/28/21 @ 00:00 by OSEI López) Asthma Bipolar 1 disorder Diabetes Kidney stones Substance abuse Takotsubo cardiomyopathy UTI (urinary tract infection) Wound drainage Surgical History H/O exploratory laparotomy S/P cholecystectomy S/P ureteral stent placement Social History Social History Household Members: Spouse Housing: Apartment Do you presently have visiting nurse or other home services: Yes (visiting nurses, pt/ot) Alcohol intake: never Patient Tobacco Use Status: Never used Tobacco Advance Directives: No service: No Current occupational status: disabled Physical Exam ED Vital Signs: Vital Signs - 24 hr 10/27/21 17:23 10/27/21 19:51 10/27/21 21:12 Temperature 99.7 F 98.3 F Pulse Rate 101 H 91 Respiratory Rate 18 12 16 Blood Pressure 119/62 145/83 H Pulse Oximetry 96 100 Oxygen Delivery Method Room Air Room Air 10/27/21 22:49 10/27/21 22:51 Temperature 97.2 F Pulse Rate 81 Respiratory Rate 18 Blood Pressure 141/83 H Pulse Oximetry 99 Oxygen Delivery Method Room Air BMI result Body Mass Index 35.4 Appearance: Alert. Oriented X3. Appears uncomfortable. Eyes: Pupils equal, round and reactive to light. ENT: Pharynx normal. Neck: Tracheostomy in place, no secretions, patent with normal voice Neck supple. CVS: Normal heart rate and rhythm. Pulses normal. Respiratory: No respiratory distress. Breath sounds normal. Abdomen: Morbidly obese, softly distended with moderate tenderness of the right lower quadrant and left lower quadrant with guarding. No rebound. Normal bowel sounds. No CVA tenderness. Skin: Skin warm and dry. Normal skin color. Normal skin turgor. No rashes. Extremities: No lower extremity edema. Neuro: Oriented X 3. No motor deficit. No sensory deficit. Grossly normal, nonfocal Course Course Course Narrative: 50-year-old female with a complex medical history, including necrotizing pancreatitis, multiple abdominal surgeries requiring debridement and skin grafting, kidney stone status post ureteral stent removal recently, recurring UTIs who presents to the ER for evaluation of lower abdominal pain, left low back pain and projectile vomiting that started today. She has no urinary symptoms. On arrival to the ER she is slightly tachycardic, she appears uncomfortable, tachycardia most likely due to pain. Will get lab workup, CT scan to rule out recurrent kidney stone. IV fluids and pain control ordered. Reevaluation(s) Reevaluation #1: Lab workup showing a WBC 12.9. This could be reactive due to vomiting. Renal function normal. She continues to report severe lower abdominal pain. Will give another dose of IV Dilaudid. Her nausea is improved. Unable to provide urine sample, IV fluids are infusing. CT scan complete, awaiting read. Reevaluation #2: CT scan showing improvements in her previous findings. No kidney stones or hydro were seen. No acute cause of her abdominal pain was identified. Her urinalysis is grossly positive for infection with nitrites and greater than 50 WBC. Upon review of her previous microbiology records, she grew ESBL Klebsiella as well as Enterococcus faecalis in September. Patient reports she has been getting recurrent urinary tract infections. She has urologist with Dr. Agosto. She reports history of Gram-negative traci bacteremia in the past related to this as well. Will need to check lactic acid, blood cultures. She still has significant lower abdominal pain. Given her resistant Klebsiella in the past, ongoing pain will plan to admit the patient for IV ertapenem and pain control. Spoke with Dr. Joseph who will admit the patient. MDM - Abdominal Pain Lab Data Result diagrams: 10/27/21 17:44 10/27/21 17:44 Labs: Lab Results 10/27/21 10/27/21 10/27/21 Range/Units 17:44 17:44 23:10 WBC 12.9 H (4.8-10.8) X10*3/uL RBC 4.14 L (4.20-5.50) X10*6/uL Hgb 11.4 L (12.0-16.0) g/dl Hct 36.2 L (37.0-47.0) % MCV 87.4 (80.0-98.0) fL MCH 27.5 (27.0-33.0) pg MCHC 31.5 (31.0-35.0) g/dl RDW 14.1 (11.0-16.0) % Plt Count 363 (160-400) X10*3/uL MPV 9.4 (9.4-12.3) fL Immature Gran % (Auto) 0.3 (0.0-0.4) % Neut % (Auto) 92.3 H (45-73) % Lymph % (Auto) 4.7 L (20-40) % Pratt % (Auto) 2.2 (2-11) % Eos % (Auto) 0.3 (0-4) % Baso % (Auto) 0.2 (0-2) % Lymph # (Auto) 0.6 L (1.2-4.9) X10*3/uL [place]att # (Auto) 0.3 (0.1-1.2) X10*3/uL Eos # (Auto) 0.0 (0.0-0.4) X10*3/uL Baso # (Auto) 0.0 (0.0-0.2) X10*3/uL Abs Immat Gran (auto) 0.04 H (0.00-0.03) X10*3/uL Absolute Neuts (auto) 11.9 H (2.0-8.3) x10*3/uL Absolute Nucleated RBC 0.000 (0.0-0.012) X10*3/uL Nucleated RBC % (auto) 0.0 (0.0-0.2) /100WBC Smear Tech's Comments VERIFIED Sodium 140 (135-145) mmol/L Potassium 4.9 D (3.3-5.1) mmol/L Chloride 100 (96-108) mmol/L Carbon Dioxide 28 (22-29) mmol/L Anion Gap 17 (12-20) BUN 12 (9-16) mg/dL Creatinine 1.23 (0.5-1.4) mg/dL Estim Creat Clear Calc 57.8 Estimated GFR 46 Random Glucose 152 H (60-115) mg/dL Calcium 9.3 (8.4-10.2) mg/dL Total Bilirubin 0.3 (0.0-1.0) mg/dL AST 21 (5-31) U/L ALT 22 (0-31) U/L Alkaline Phosphatase 243 H (39-117) U/L Total Protein 7.4 (6.5-8.0) g/dL Albumin 3.9 (3.5-5.0) g/dL Lipase < 4 L (8-78) U/L Urine Color Yellow Urine Appearance Clear Urine pH 5.5 (5.0-8.0) Ur Specific [place] 1.015 (1.005-1.025) Urine Protein Negative (Neg-Trace) mg/dL Urine Glucose (UA) Negative (Negative) mg/dL Urine Ketones Negative (Negative) mg/dL Urine Blood Negative (Negative) Urine Nitrite Positive H (Negative) Ur Leukocyte Esterase Moderate (2+) H (Negative) Urine RBC 0-2 (0-2) /HPF Urine WBC >50 H (0-5) /HPF Ur Squamous Epith Cells 3-5 (0-2) /HPF Urine Bacteria 4+ (None Seen) Hyaline Casts 0-2 (0-2) /LPF Critical Care Time Critical Care Time Critical Care Time: Yes Total Critical Care Time: 35 Attestation: I have personally provided critical care time exclusive of time spent on separately billable procedures. Time includes review of lab data, radiology results, discussion with consultants, and monitoring for potential decompensation. Intervention performed as documented. Discharge Plan Discharge Clinical Impression: Acute UTI, Abdominal pain, Vomiting Patient Disposition: Admitted As Inpatient Prescriptions: No Action ciprofloxacin HCl 250 mg tablet 250 mg PO BID 5 Days Qty: 10 0RF promethazine 25 mg tablet 1 tab PO Q8H PRN (Reason: Nausea) escitalopram oxalate 20 mg tablet 1 tab PO DAILY tamsulosin 0.4 mg Capsule 0.4 mg PO DAILY Qty: 30 0RF oxycodone 5 mg tablet 5 mg PO Q6H PRN (Reason: pain (scale score 7-10)) Qty: 20 0RF cefuroxime axetil 500 mg tablet 500 mg PO BID 10 Days Qty: 20 0RF morphine 15 mg tablet 15 mg PO TID PRN (Reason: pain) Qty: 10 0RF Rx Instructions: partial fill okay; Partial Fill upon patient request. promethazine 25 mg tablet 25 mg PO TID PRN (Reason: nausea and vomiting) Qty: 20 0RF fosfomycin tromethamine 3 gram packet 1 packet PO Q3D 2 Days Qty: 2 0RF Rx Instructions: Take 1 dose today 10/07/2021, take the 2nd dose 10/10/2021 furosemide 40 mg tablet 1 tab PO DAILY atorvastatin 10 mg tablet 1 tab PO BEDTIME clonazepam 1 mg tablet 1 tab PO BID PRN (Reason: Anxiety) trazodone 100 mg tablet 1 tab PO BEDTIME PRN (Reason: Sleep) metformin 500 mg tablet extended release 24 hr 2 tab PO BIDAC glipizide 5 mg tablet 1 tab PO BIDAC Latuda 40 mg tablet 1 tab PO BEDTIME Eliquis 5 mg tablet 5 mg PO BID albuterol sulfate 2.5 mg/0.5 mL solution for nebulization 2.5 mg inhalation Q4H PRN (Reason: shortness of breath or wheezing) oxycodone-acetaminophen [Percocet] 5-325 mg tablet 1 tab PO Q6H PRN (Reason: pain) Qty: 20 0RF Rx Instructions: Partial Fill upon patient request. naproxen 500 mg tablet 500 mg PO ONCE Qty: 1 0RF Latuda 60 mg tablet 60 mg PO BEDTIME albuterol sulfate [ProAir HFA] 90 mcg/actuation HFA aerosol inhaler 2 puff inhalation Q4H PRN (Reason: wheezing) oxcarbazepine 300 mg tablet 300 mg PO BID albuterol sulfate 2.5 mg /3 mL (0.083 %) solution for nebulization inhalation Q4H PRN (Reason: wheezing) fluticasone propionate 50 mcg/actuation spray,suspension 1 spray intranasal DAILY famotidine 20 mg tablet 20 mg PO BID
[2021-10-27 21:12] VITALS: RESP 16
[2021-10-27] MEDS: HYDROmorphone HCl 1 MG/ML SYRINGE IM (21:12)
--- NOTE | 2021-10-27 21:15 | PC.NURSE ---
Fluids and zofran started late due to patient being a difficult stick. Provider made aware
[2021-10-27] MEDS: 0.9 % Sodium Chloride 1,000 ML 999 ML IVCONT (21:35)
[2021-10-27] MEDS: ondansetron HCL 4 MG/2 ML VIAL IVPUSH (21:59)
[2021-10-27 22:49] VITALS: BP 141/83; PULSE 81; TEMP 36.2; O2SAT 99
[2021-10-27 22:51] VITALS: RESP 18
[2021-10-27] MEDS: HYDROmorphone HCl 1 MG/ML SYRINGE IVPUSH (22:51)
[2021-10-27 23:13] LABS: Lipase < 4 U/L (8-78)
[2021-10-27 23:21] LABS: Appearance Urine Clear; Color Urine Yellow; Glucose Urine UA Negative (Negative); Leukocyte Esterase Urine Moderate (2+) (Negative); Nitrite Urine Positive (Negative); PH 5.5 (5.0-8.0); Specific Gravity - Urine 1.015 (1.005-1.025); Urine Blood Negative (Negative); Urine Ketones Negative (Negative); Urine Protein Negative (Neg-Trace)
[2021-10-27 23:26] LABS: Bacteria Urine 4+ (None Seen); Hyaline Casts Urine 0-2 /LPF (0-2); RBC Urine 0-2 /HPF (0-2); UACC Culture Trigger YES; WBC Urine >50 /HPF (0-5)
--- NOTE | 2021-10-27 23:51 | PM.IMHP ---
History of Present Illness Date of Service: 10/27/21 Chief Complaint: abd pain 50-year-old female with a past medical history of hypertension, hyperlipidemia, diabetes, asthma, history of acute respiratory failure secondary to asthma exacerbation requiring intubation, complicated by cardiac arrest x2, subsequently had tracheostomy, has trach collar; history of necrotizing pancreatitis status post surgery; kidney stones-recently had stent removed by Dr. Agosto; history of ESBL UTI; anxiety, depression, bipolar disorder, takotsubo cardiomyopathy presented to the hospital today with a chief complaint of abdominal pain. Patient reports that for the past 2 days she has been having abdominal pain located diffusely in the anterior abdomen and also in the left flank; mentioned that she has concern for possible kidney stone. Hence presented to the ER for further evaluation. Also had multiple episodes of projectile vomiting. Denies any diarrhea. Denies any concerns for food poisoning. Denies any urinary urgency frequency or dysuria. Mentions that she had kidney stones in the past and had stent placed-which was removed about a month ago. Follows with Dr. Agosto. Mentions that her respiratory status is currently fine, trach currently stable, follows with [facility] in [place]. Denies any alcohol use. Denies any chest pain or palpitations. Denies any fever chills. Review of all other systems is negative except mentioned above ER course: Per ER team patient noted to have abdominal tenderness; CT scan showed chronic abdominal findings-postsurgical, improved compared to prior CT scan; urinalysis was abnormal consistent with UTI. Also noted to have renal calculi-nonobstructing; given history of multidrug resistant bacterial UTI-patient was given ertapenem, vancomycin in the ER. Admitted to the hospital for further management [facility] Medical History Asthma Bipolar 1 disorder Diabetes Kidney stones Substance abuse Takotsubo cardiomyopathy UTI (urinary tract infection) Wound drainage Pertinent family history: Father: Heart disease at the age of 47 Surgical History H/O exploratory laparotomy S/P cholecystectomy S/P ureteral stent placement Social History Household Members: Significant Other Household Members Other:: 2 Housing: Apartment Do you presently have visiting nurse or other home services: No Alcohol intake: never Patient Tobacco Use Status: Never used Tobacco service: No Current occupational status: disabled Meds Allergies Allergy/AdvReac Type Severity Reaction Status Date / Time pantoprazole Allergy Unknown Verified 10/27/21 17:23 Active Medications: Current Medications Ertapenem 1 gm/ Sodium (Chloride) 50 mls @ 100 mls/hr IV ONCE ONE Stop: 10/28/21 00:18 Pharmacy Consult (Consult Rx Perform Med Rec) 1 each MISCELLANE ONCE PRN PRN Reason: Consult order Home Medications Medication Instructions Recorded Confirmed Last Taken Type albuterol sulfate 2.5 mg/3 mL 1 vial inhalation Q4H PRN wheezing 10/28/21 10/28/21 Unknown History (0.083 %) solution for nebulization apixaban 5 mg tablet (Eliquis) 1 tab PO BID 10/28/21 10/28/21 Unknown History atorvastatin 10 mg tablet 1 tab PO DAILY 10/28/21 10/28/21 Unknown History clonazepam 1 mg tablet 1 tab PO BID PRN Anxiety 10/28/21 10/28/21 Unknown History escitalopram oxalate 20 mg tablet 1 tab PO BEDTIME 10/28/21 10/28/21 Unknown History famotidine 20 mg tablet 1 tab PO BID 10/28/21 10/28/21 Unknown History fluticasone propionate 50 1 spray intranasal DAILY 10/28/21 10/28/21 Unknown History mcg/actuation nasal spray,suspension glipizide 5 mg tablet 1 tab PO BID 10/28/21 10/28/21 Unknown History lurasidone 60 mg tablet (Latuda) 1 tab PO BID 10/28/21 10/28/21 Unknown History metformin 500 mg tablet,extended 2 tab PO BID 10/28/21 10/28/21 Unknown History release 24 hr oxcarbazepine 300 mg tablet 1 tab PO BID 10/28/21 10/28/21 Unknown History promethazine 25 mg tablet 1 tab PO Q8H PRN nausea 10/28/21 10/28/21 Unknown History trazodone 100 mg tablet 1 tab PO BEDTIME PRN Insomnia 10/28/21 10/28/21 Unknown History Physical Exam Vital Signs and Narrative: Vital Signs: Last Vital Signs Temp 97.2 F 10/27/21 22:49 Pulse 81 10/27/21 22:49 Resp 18 10/27/21 22:51 BP 141/83 H 10/27/21 22:49 Pulse Ox 99 10/27/21 22:49 O2 Del Method 10/27/21 22:49 BMI result Body Mass Index 35.4 Gen: Appears be in no acute distress. Breathing comfortably. HEENT: NCAT, Moist mucosa. Trach collar in place. Pulmonary: Vesicular breath sounds, fair air entry CVS: Normal S1-S2 Abdomen: BS+, Soft, diffusely tender anteriorly, no guarding no rigidity. Also noted tenderness in the left flank. Extremities: Warm well perfused Neuro: Alert and awake. Results Labs CBC and Chem 7: 10/28/21 05:30 10/28/21 05:30 Labs: Laboratory Results - last 24 hr 10/27/21 10/27/21 10/27/21 17:44 17:44 23:10 MCV 87.4 MCH 27.5 MCHC 31.5 RDW 14.1 Plt Count 363 MPV 9.4 Immature Gran % (Auto) 0.3 Neut % (Auto) 92.3 H Lymph % (Auto) 4.7 L [place] % (Auto) 2.2 Eos % (Auto) 0.3 Baso % (Auto) 0.2 Lymph # (Auto) 0.6 L Barry # (Auto) 0.3 Eos # (Auto) 0.0 Baso # (Auto) 0.0 Abs Immat Gran (auto) 0.04 H Absolute Neuts (auto) 11.9 H Absolute Nucleated RBC 0.000 Nucleated RBC % (auto) 0.0 Smear Tech's Comments VERIFIED Anion Gap 17 Estim Creat Clear Calc 57.8 Estimated GFR 46 Random Glucose 152 H Calcium 9.3 Total Bilirubin 0.3 AST 21 ALT 22 Alkaline Phosphatase 243 H Total Protein 7.4 Albumin 3.9 Lipase < 4 L Urine Color Yellow Urine Appearance Clear Urine pH 5.5 Ur Specific [place] 1.015 Urine Protein Negative Urine Glucose (UA) Negative Urine Ketones Negative Urine Blood Negative Urine Nitrite Positive H Ur Leukocyte Esterase Moderate (2+) H Urine RBC 0-2 Urine WBC >50 H Ur Squamous Epith Cells 3-5 Urine Bacteria 4+ Hyaline Casts 0-2 Imaging Radiologist's Impressions: Impressions Abdomen/Pelvis CT 10/27/21 20:32 IMPRESSION: Punctate nonobstructive calculi in both kidneys. No caliectasis or hydronephrosis seen. Again seen is a large ventral abdominal wall diastases with herniation of colon, small bowel loops, stomach and left hepatic lobe similar previous study. Punctate extraluminal air seen on the previous exam the left lower quadrant is less evident at this time. No fistulous tract seen. Fluid in the left paracolic gutter has improved previously visualized 2 small focal collections along the fistulous tract in the left upper quadrant have significantly improved. Fleischner guidelines were followed. Assessment and Plan (1) Acute UTI: Status: Acute Plan 50-year-old female with a past medical history of hypertension, hyperlipidemia, diabetes, asthma, history of acute respiratory failure secondary to asthma exacerbation requiring intubation, complicated by cardiac arrest x2, subsequently had tracheostomy, has trach collar; history of necrotizing pancreatitis status post surgery; kidney stones-recently had stent removed by Dr. Agosto; history of ESBL UTI; DVT-on Eliquis anxiety, depression, bipolar disorder, takotsubo cardiomyopathy presented to the hospital today with a chief complaint of abdominal pain/nausea/vomiting. Noted to have renal calculi/UTI. Admitted for further management. Renal calculi/UTI: Patient with history of ESBL, Enterococcus. Patient was given ertapenem and vancomycin in the ER. Will consult ID for further approval febrile antibiotics. Will also consult Urology. Pain control Abdominal pain: Likely in setting of UTI/kidney stones. CT abdomen showed chronic findings but improving. Supportive care. Advanced diet as tolerated. History of diabetes: Hold home glipizide, metformin. Insulin sliding scale. History of anxiety/depression/Bipolar: Continue home clonazepam/escitalopram/Latuda/Oxcarbazepine. History of VTE home: Continue home Eliquis History of asthma/respiratory failure: Stable. DVT prophylaxis: Patient on Eliquis Code status: Full code Quality Stroke Does the patient have a stroke diagnosis?: No VTE Prior VTE?: No VTE Risk Level:: Medical - moderate - high VTE Device Contraindication: Patient Refused VTE Drug Contraindication: N/A - Med Ordered
[2021-10-28] VITALS (7 sets, daily range): BP systolic 96–141; BP diastolic 60–78; PULSE 74–658; RESP 12–20; TEMP 36.7–37.1; O2SAT 90–98
--- NOTE | 2021-10-28 00:17 | PC.NURSE ---
Med Rec completed by this RN. serology technician at bedside for BCX, lactic and Covid swabs.
[2021-10-28] MEDS: Ertapenem Sodium 1 GM in 0.9 % Sodium Chloride 50 ML IV (00:25)
[2021-10-28 00:35] LABS: Lactic Acid 1.4 mmol/L (0.5-2.0)
[2021-10-28 00:39] LABS: COVID-19 Test Negative (Negative); IDNOW Serial# 55D5AD1C
[2021-10-28] MEDS: HYDROmorphone HCl 0.5 MG/0.5 ML SYRINGE IVPUSH ×6 (00:49→19:52)
[2021-10-28] MEDS: 0.9 % Sodium Chloride 1,000 ML 50 ML IVCONT ×2 (01:28→15:04)
--- NOTE | 2021-10-28 01:48 | PC.NURSE ---
pt resting in bed no apparent distress, c/o abd pain 10/21. this RN reached out to MD who ordered PRN dilaudid pt asking about the mg and frequency, upon reassessment pt states pain is worse and wants more pain medication. MD notified. Report given to Olivia RN in overflow
[2021-10-28 05:49] LABS: MANUAL DIFF FLAG NO
[2021-10-28 05:52] LABS: Basophils Percent Auto 0.4 % (0-2); Eosinophils Absolute Auto 0.2 X10*3/uL (0.0-0.4); Eosinophils Percent Auto 2.9 % (0-4); Hemoglobin 9.7 g/dl (12.0-16.0); Imm Gran Abs Auto 0.03 X10*3/uL (0.00-0.03); Imm Gran Pct Auto 0.4 % (0.0-0.4); Lymphocytes Percent Auto 14.9 % (20-40); Mean Corpuscular HGB Conc 31.3 g/dl (31.0-35.0); Mean Corpuscular Hemoglobin 27.2 pg (27.0-33.0); Mean Corpuscular Volume 87.1 fL (80.0-98.0); Mean Platelet Volume 9.8 fL (9.4-12.3); Monocytes Absolute Auto 0.4 X10*3/uL (0.1-1.2); Monocytes Percent Auto 5.1 % (2-11); Neutrophils Absolute Auto 5.2 x10*3/uL (2.0-8.3); Neutrophils Percent Auto 76.3 % (45-73); Platelet Count 329 X10*3/uL (160-400); Red Blood Count 3.56 X10*6/uL (4.20-5.50); Red Cell Distribution Width 14.1 % (11.0-16.0); White Blood Count 6.9 X10*3/uL (4.8-10.8)
[2021-10-28 06:07] LABS: Anion Gap 13 (12-20); Blood Urea Nitrogen 12 mg/dL (9-16); Calcium 8.4 mg/dL (8.4-10.2); Carbon Dioxide 31 mmol/L (22-29); Chloride 101 mmol/L (96-108); Creatinine Clr Calc Pharmacy 62.9; Estimated Glomerular Filt Rate 51; Glucose Random 157 mg/dL (60-115); Potassium 4.4 mmol/L (3.3-5.1); Sodium 141 mmol/L (135-145)
--- NOTE | 2021-10-28 07:09 | PHA.MEDREC ---
Pharmacy Consult ? Medication Reconciliation Pharmacy has reviewed the medication reconciliation completed by Barbara. There are no remarkable issues for provider's attention. Ama Laguerre, LyndseyD
[2021-10-28 07:51] LABS: Glucose, Whole Blood 120 mg/dL (60-115)
--- NOTE | 2021-10-28 10:06 | HO.PM.IMPN ---
Subjective Subjective Date of Service: 10/28/21 Interval History: f/u on uti, n/v still complaining of some lower abdominal pain and left flank pain. There is no fever Review of Systems Lower abdominal pain, no fever. No more nausea vomiting tolerating regular diet. Physical Exam Vital Signs: Vital Signs: Last Vital Signs Temp 98.7 F 10/28/21 05:23 Pulse 658 H 10/28/21 05:23 Resp 12 10/28/21 05:23 BP 110/63 10/28/21 05:23 Pulse Ox 93 10/28/21 05:23 O2 Del Method 10/28/21 05:23 BMI result Body Mass Index 35.4 Const: Other: General: AO X 3, no acute distress Resp: CTA bilateral CVS: S1,S2,RRR GI: +BS, mild lower abdominal tenderness no guarding no rebound and some left flank tenderness as well. Skin: No rash Neuro: motor grossly intact Psych: appropriate affect Objective Data Active Medications Acetaminophen (Acetaminophen 325 Mg Tablet) 650 mg PO Q6H PRN PRN Reason: Pain, Mild (Pain Scale 1-3) Albuterol Sulfate (Albuterol Sulfate (0.083%) 2.5 Mg/3 Ml Vial.Neb) 2.5 mg INHALE RQ4H PRN PRN Reason: wheezing Albuterol/Ipratropium (Albuterol/Iprat 2.5/0.5mg 3 Ml Ampul.Neb) 3 ml INHALE RQ4H PRN PRN Reason: Shortness of Breath/Wheezing Apixaban (Apixaban 5 Mg Tablet) 5 mg PO BID [facility] Atorvastatin Calcium (Atorvastatin Calcium 10 Mg Tablet) 10 mg PO DAILY [facility] Cefuroxime Axetil (Cefuroxime Axetil 250 Mg Tablet) 250 mg PO Q24H [facility] Clonazepam (Clonazepam 1 Mg Tablet) 1 mg PO BID PRN PRN Reason: Anxiety Dextrose (Dextrose 50 % 25 Gm/50 Ml Syringe) 25 gm IVPUSH Q15M PRN; Protocol PRN Reason: per Hypoglycemia Standing Ord. Escitalopram Oxalate (Escitalopram Oxalate 20 Mg Tablet) 20 mg PO BEDTIME [facility] Famotidine (Famotidine 20 Mg Tablet) 20 mg PO BID [facility] Fluticasone Propionate (Fluticasone Propionate Nasal 16 Gm [place]) 1 spray NOSTRIL-B DAILY [facility] Glipizide (Glipizide 5 Mg Tablet) 5 mg PO BID [facility] Glucose (Glucose Gel 15 Gm Gel..Gram.) 15 gm PO Q15M PRN; Protocol PRN Reason: per Hypoglycemia Standing Ord. Hydromorphone HCl (Hydromorphone Hcl 0.5 Mg/0.5 Ml Syringe) 0.5 mg IVPUSH Q4H PRN; Protocol PRN Reason: Breakthrough Pain Last Admin: 10/28/21 06:57 Dose: 0.5 mg Documented By: CHUYITA Sodium Chloride (Ns) 1,000 mls @ 50 mls/hr IVCONT .Q20H [facility] Last Admin: 10/28/21 01:28 Dose: 50 mls/hr Documented By: REY Insulin Human Lispro (Insulin Lispro 100 Unit/Ml 3 Ml Vial) 0 unit SUBCUT QIDACHS [facility]; Protocol Last Admin: 10/28/21 07:49 Dose: Not Given Documented By: MARIA DE JESUS Non-Admin Reason: No Insulin Coverage Lurasidone HCl (Lurasidone Hcl 20 Mg Tablet) 60 mg PO BIDWM [facility] Melatonin (Melatonin 3 Mg Tablet) 6 mg PO BEDTIME PRN PRN Reason: Insomnia Metformin HCl (Metformin Hcl Er 500 Mg Tab.Er.24h) 1,000 mg PO BID [facility] Oxcarbazepine (Oxcarbazepine 300 Mg Tablet) 300 mg PO BID [facility] Pharmacy Consult (Consult Rx Perform Med Rec) 1 each MISCELLANE ONCE PRN PRN Reason: Consult order Promethazine HCl (Promethazine Hcl 25 Mg Tablet) 25 mg PO Q8H PRN PRN Reason: nausea Senna (Sennosides 8.6 Mg Tablet) 17.2 mg PO BEDTIME PRN PRN Reason: Constipation Sodium Chloride (0.9 % Sodium Chloride Flush 3 Ml Syringe) 3 ml IVFLUSH QSHIFT [facility] Last Admin: 10/28/21 07:49 Dose: Not Given Documented By: MARIA DE JESUS Non-Admin Reason: IV Running Trazodone HCl (Trazodone Hcl 100 Mg Tablet) 100 mg PO BEDTIME PRN PRN Reason: Insomnia Labs CBC & Chem 7: 10/28/21 05:30 10/28/21 05:30 Labs: Laboratory Results - last 24 hr 10/27/21 10/27/21 10/27/21 17:44 17:44 23:10 MCV 87.4 MCH 27.5 MCHC 31.5 RDW 14.1 Plt Count 363 MPV 9.4 Immature Gran % (Auto) 0.3 Neut % (Auto) 92.3 H Lymph % (Auto) 4.7 L [place] % (Auto) 2.2 Eos % (Auto) 0.3 Baso % (Auto) 0.2 Lymph # (Auto) 0.6 L [place] # (Auto) 0.3 Eos # (Auto) 0.0 Baso # (Auto) 0.0 Abs Immat Gran (auto) 0.04 H Absolute Neuts (auto) 11.9 H Absolute Nucleated RBC 0.000 Nucleated RBC % (auto) 0.0 Smear Tech's Comments VERIFIED Anion Gap 17 Estim Creat Clear Calc 57.8 Estimated GFR 46 POC Glucose Random Glucose 152 H Lactic Acid Calcium 9.3 Total Bilirubin 0.3 AST 21 ALT 22 Alkaline Phosphatase 243 H Total Protein 7.4 Albumin 3.9 Lipase < 4 L Urine Color Yellow Urine Appearance Clear Urine pH 5.5 Ur Specific [place] 1.015 Urine Protein Negative Urine Glucose (UA) Negative Urine Ketones Negative Urine Blood Negative Urine Nitrite Positive H Ur Leukocyte Esterase Moderate (2+) H Urine RBC 0-2 Urine WBC >50 H Ur Squamous Epith Cells 3-5 Urine Bacteria 4+ Hyaline Casts 0-2 COVID-19 (PRETTY) COVID-19 Clin Com 10/27/21 10/27/21 10/28/21 23:59 23:59 05:30 MCV 87.1 MCH 27.2 MCHC 31.3 RDW 14.1 Plt Count 329 MPV 9.8 Immature Gran % (Auto) 0.4 Neut % (Auto) 76.3 H Lymph % (Auto) 14.9 L [place] % (Auto) 5.1 Eos % (Auto) 2.9 Baso % (Auto) 0.4 Lymph # (Auto) 1.0 L [place] # (Auto) 0.4 Eos # (Auto) 0.2 Baso # (Auto) 0.0 Abs Immat Gran (auto) 0.03 Absolute Neuts (auto) 5.2 Absolute Nucleated RBC 0.000 Nucleated RBC % (auto) 0.0 Smear Tech's Comments Anion Gap Estim Creat Clear Calc Estimated GFR POC Glucose Random Glucose Lactic Acid 1.4 Calcium Total Bilirubin AST ALT Alkaline Phosphatase Total Protein Albumin Lipase Urine Color Urine Appearance Urine pH Ur Specific [place] Urine Protein Urine Glucose (UA) Urine Ketones Urine Blood Urine Nitrite Ur Leukocyte Esterase Urine RBC Urine WBC Ur Squamous Epith Cells Urine Bacteria Hyaline Casts COVID-19 (PRETTY) Negative COVID-19 Clin Com See Note 10/28/21 10/28/21 05:30 07:43 MCV MCH MCHC RDW Plt Count MPV Immature Gran % (Auto) Neut % (Auto) Lymph % (Auto) [place] % (Auto) Eos % (Auto) Baso % (Auto) Lymph # (Auto) [place] # (Auto) Eos # (Auto) Baso # (Auto) Abs Immat Gran (auto) Absolute Neuts (auto) Absolute Nucleated RBC Nucleated RBC % (auto) Smear Tech's Comments Anion Gap 13 Estim Creat Clear Calc 62.9 Estimated GFR 51 POC Glucose 120 H Random Glucose 157 H Lactic Acid Calcium 8.4 D Total Bilirubin AST ALT Alkaline Phosphatase Total Protein Albumin Lipase Urine Color Urine Appearance Urine pH Ur Specific [place] Urine Protein Urine Glucose (UA) Urine Ketones Urine Blood Urine Nitrite Ur Leukocyte Esterase Urine RBC Urine WBC Ur Squamous Epith Cells Urine Bacteria Hyaline Casts COVID-19 (PRETTY) COVID-19 Clin Com Assessment and Plan (1) Acute UTI: Status: Acute (2) Abdominal pain: Status: Acute (3) Vomiting: Status: Acute (4) Kidney stones: Status: Acute Plan 50-year-old female with a past medical history of hypertension, hyperlipidemia, diabetes, asthma, history of acute respiratory failure secondary to asthma exacerbation requiring intubation, complicated by cardiac arrest x2, subsequently had tracheostomy, has trach collar; history of necrotizing pancreatitis status post surgery; kidney stones-recently had stent removed by Dr. Agosto; history of ESBL UTI; DVT-on Eliquis anxiety, depression, bipolar disorder, takotsubo cardiomyopathy presented to the hospital today with a chief complaint of abdominal pain/nausea/vomiting.? Noted to have renal calculi/UTI.? Admitted for further management.? Renal calculi/UTI: Patient with history of ESBL, Enterococcus.? Patient was given ertapenem and vancomycin in the ER.? Will consult ID for further guidance, culture pending Uro plan on no intervention Abdominal pain:? Likely in setting of UTI/kidney stones.? CT abdomen showed chronic findings but improving.? Supportive care.? Advanced diet as tolerated. History of diabetes:? restart glipizide, metformin.? Insulin sliding scale. History of anxiety/depression/Bipolar:? Continue home clonazepam/escitalopram/Latuda/Oxcarbazepine. History of VTE home: Continue home Eliquis History of asthma/respiratory failure: Stable. DVT prophylaxis:? Patient on Eliquis Code status: Full code Need for inaptient: resistant UTI that needs IV Abx and expert guidance Quality Stroke Does the patient have a stroke diagnosis?: No VTE Prior VTE?: No VTE Risk Level:: Medical - moderate - high VTE Device Contraindication: Patient Refused VTE Drug Contraindication: N/A - Med Ordered
[2021-10-28] MEDS: Apixaban 5 MG TABLET PO ×2 (10:17→20:05)
[2021-10-28] MEDS: Famotidine 20 MG TABLET PO ×2 (10:17→20:05)
[2021-10-28] MEDS: Atorvastatin Calcium 10 MG TABLET PO (10:17)
[2021-10-28] MEDS: Lurasidone HCl 20 MG TABLET 60 MG PO ×2 (11:08→16:48)
[2021-10-28] MEDS: glipiZIDE 5 MG TABLET PO ×2 (11:08→20:05)
[2021-10-28] MEDS: OXcarbazepine 300 MG TABLET PO ×2 (11:08→20:07)
[2021-10-28] MEDS: Fluticasone Propionate Nasal 16 GM SPRAY 1 SPRAY NOSTRIL-B (11:08)
[2021-10-28] MEDS: metFORMIN HCl ER 500 MG TAB.ER.24H 1000 MG PO ×2 (11:08→20:05)
[2021-10-28 13:24] LABS: Glucose, Whole Blood 92 mg/dL (60-115)
--- NOTE | 2021-10-28 14:22 | MHC.CM.PN ---
IMM 10/28/21, EMR REVIEWED, PT ADMITTED W/UTI, PER HOSPITALIST PT MAY NEED IV ABX AT HOME, CM MET W/PT WHO REPORTS SHE LIVES W/ WHO ASSISTS HER W/EVERYTHING, PT REPORTS SHE WAS ACTIVE W/[facility] HOWEVER NO LONGER NEEDED THEIR SERVICES, PT DENIES NEED FOR HOME SERVICES UNLESS SHE WILL BE GOING HOME ON IV ABX, PT REPORTS HER /HCP DOM HAD LEARNED TPN WHEN PT WAS AT [facility] AFTER LAST YEARS CARDIAC ARREST, PT REPORTS ALTHOUGH SHE ENDED UP NOT NEEDING TPN AT HOME HER WOULD BE ABLE TO LEARN THE IV ABX. PT ALSO REPORTS SHE JUST STARTED WAKING AGAIN ABOUT 3 WKS AGO. DME: [facility], W/C, HOSPITAL BED, HOME O2 SHE NO LONGER NEEDS, NEBULIZERSM BEDSIDE COMMODE, SHOWER CHAIR, TRACH AND SUPPLIES AND SUCTION MACHINE. PCP AT [facility] AND REPORTS SHE HAS A NEW PCP BENIGNO ALVAREZ LEFT PRACTICE.
[2021-10-28] MEDS: 0.9 % Sodium Chloride Flush 3 ML SYRINGE IVFLUSH (15:09)
--- NOTE | 2021-10-28 15:16 | MHC.CM.PN ---
[facility]OT[facility] AT [facility]
--- NOTE | 2021-10-28 16:39 | P.CNID_ITS ---
History of Present Illness Data of Consult Service Date: 10/28/21 Requesting physician: Marty Doyle Primary Care Provider: TREVOR Avila HPI Reason for consult: left back pain She presents with 10/10 left flank pain She has no fever or chills. she had stent placed for nephrolithiasis. Review of Systems Review of Systems: Yes all other systems are reviewed and are [facility] Past Medical History Medical History Asthma Bipolar 1 disorder Diabetes Kidney stones Substance abuse Takotsubo cardiomyopathy UTI (urinary tract infection) Wound drainage Family History Family history: reviewed and not pertinent Surgical History Surgical History H/O exploratory laparotomy S/P cholecystectomy S/P ureteral stent placement Social History Social History Household Members: Significant Other Household Members Other:: 2 Housing: Apartment Do you presently have visiting nurse or other home services: No Alcohol intake: never Patient Tobacco Use Status: Never used Tobacco service: No Current occupational status: disabled Meds Allergies Allergy/AdvReac Type Severity Reaction Status Date / Time pantoprazole Allergy Unknown Verified 10/27/21 17:23 Active Medications: Current Medications Acetaminophen (Acetaminophen 325 Mg Tablet) 650 mg PO Q6H PRN PRN Reason: Pain, Mild (Pain Scale 1-3) Albuterol Sulfate (Albuterol Sulfate (0.083%) 2.5 Mg/3 Ml Vial.Neb) 2.5 mg INHALE RQ4H PRN PRN Reason: wheezing Albuterol/Ipratropium (Albuterol/Iprat 2.5/0.5mg 3 Ml Ampul.Neb) 3 ml INHALE RQ4H PRN PRN Reason: Shortness of Breath/Wheezing Apixaban (Apixaban 5 Mg Tablet) 5 mg PO BID [facility] Last Admin: 10/28/21 10:17 Dose: 5 mg Atorvastatin Calcium (Atorvastatin Calcium 10 Mg Tablet) 10 mg PO DAILY [facility] Last Admin: 10/28/21 10:17 Dose: 10 mg Clonazepam (Clonazepam 1 Mg Tablet) 1 mg PO BID PRN PRN Reason: Anxiety Dextrose (Dextrose 50 % 25 Gm/50 Ml Syringe) 25 gm IVPUSH Q15M PRN; Protocol PRN Reason: per Hypoglycemia Standing Ord. Escitalopram Oxalate (Escitalopram Oxalate 20 Mg Tablet) 20 mg PO BEDTIME [facility] Famotidine (Famotidine 20 Mg Tablet) 20 mg PO BID [facility] Last Admin: 10/28/21 10:17 Dose: 20 mg Fluticasone Propionate (Fluticasone Propionate Nasal 16 Gm [place]) 1 spray NOSTRIL-B DAILY [facility] Last Admin: 10/28/21 11:08 Dose: 1 spray Glipizide (Glipizide 5 Mg Tablet) 5 mg PO BID [facility] Last Admin: 10/28/21 11:08 Dose: 5 mg Glucose (Glucose Gel 15 Gm Gel..Gram.) 15 gm PO Q15M PRN; Protocol PRN Reason: per Hypoglycemia Standing Ord. Hydromorphone HCl (Hydromorphone Hcl 0.5 Mg/0.5 Ml Syringe) 0.5 mg IVPUSH Q4H PRN; Protocol PRN Reason: Breakthrough Pain Last Admin: 10/28/21 15:03 Dose: 0.5 mg Sodium Chloride (Ns) 1,000 mls @ 50 mls/hr IVCONT .Q20H [facility] Last Admin: 10/28/21 15:04 Dose: 50 mls/hr Insulin Human Lispro (Insulin Lispro 100 Unit/Ml 3 Ml Vial) 0 unit SUBCUT QIDACHS [facility]; Protocol Last Admin: 10/28/21 13:33 Dose: Not Given Lurasidone HCl (Lurasidone Hcl 20 Mg Tablet) 60 mg PO BIDWM [facility] Last Admin: 10/28/21 11:08 Dose: 60 mg Melatonin (Melatonin 3 Mg Tablet) 6 mg PO BEDTIME PRN PRN Reason: Insomnia Metformin HCl (Metformin Hcl Er 500 Mg Tab.Er.24h) 1,000 mg PO BID [facility] Last Admin: 10/28/21 11:08 Dose: 1,000 mg Oxcarbazepine (Oxcarbazepine 300 Mg Tablet) 300 mg PO BID [facility] Last Admin: 10/28/21 11:08 Dose: 300 mg Pharmacy Consult (Consult Rx Perform Med Rec) 1 each MISCELLANE ONCE PRN PRN Reason: Consult order Promethazine HCl (Promethazine Hcl 25 Mg Tablet) 25 mg PO Q8H PRN PRN Reason: nausea Senna (Sennosides 8.6 Mg Tablet) 17.2 mg PO BEDTIME PRN PRN Reason: Constipation Sodium Chloride (0.9 % Sodium Chloride Flush 3 Ml Syringe) 3 ml IVFLUSH [facility] Last Admin: 10/28/21 15:09 Dose: 3 ml Trazodone HCl (Trazodone Hcl 100 Mg Tablet) 100 mg PO BEDTIME PRN PRN Reason: Insomnia Home Medications Medication Instructions Recorded Confirmed Last Taken Type albuterol sulfate 2.5 mg/3 mL 1 vial inhalation Q4H PRN wheezing 10/28/21 10/28/21 Unknown History (0.083 %) solution for nebulization apixaban 5 mg tablet (Eliquis) 1 tab PO BID 10/28/21 10/28/21 Unknown History atorvastatin 10 mg tablet 1 tab PO DAILY 10/28/21 10/28/21 Unknown History clonazepam 1 mg tablet 1 tab PO BID PRN Anxiety 10/28/21 10/28/21 Unknown History escitalopram oxalate 20 mg tablet 1 tab PO BEDTIME 10/28/21 10/28/21 Unknown History famotidine 20 mg tablet 1 tab PO BID 10/28/21 10/28/21 Unknown History fluticasone propionate 50 1 spray intranasal DAILY 10/28/21 10/28/21 Unknown History mcg/actuation nasal spray,suspension glipizide 5 mg tablet 1 tab PO BID 10/28/21 10/28/21 Unknown History lurasidone 60 mg tablet (Latuda) 1 tab PO BID 10/28/21 10/28/21 Unknown History metformin 500 mg tablet,extended 2 tab PO BID 10/28/21 10/28/21 Unknown History release 24 hr oxcarbazepine 300 mg tablet 1 tab PO BID 10/28/21 10/28/21 Unknown History promethazine 25 mg tablet 1 tab PO Q8H PRN nausea 10/28/21 10/28/21 Unknown History trazodone 100 mg tablet 1 tab PO BEDTIME PRN Insomnia 10/28/21 10/28/21 Unknown History Physical Exam Vital Signs: Vital Signs: Last Vital Signs Temp 98.3 F 10/28/21 14:52 Pulse 85 10/28/21 14:52 Resp 20 10/28/21 14:52 BP 127/78 10/28/21 14:52 Pulse Ox 97 10/28/21 14:52 O2 Del Method 10/28/21 14:52 BMI result Body Mass Index 35.4 Const: General: cooperative HEENT: Head: Yes normal to inspection Face and sinus: Yes normal facial exam Mouth: Normal oral and palatal mucosa present Teeth and gingiva: dentition normal Eyes: General: appearance normal, both eyes and all related structures Pupils: Equal, round and reactive pupils present Resp: Effort & Inspection: normal respiratory effort Cardio: Rate: regular rate Rhythm: regular rhythm GI: Palpation (GI): Soft to palpation and nontender : General: Yes no CVA tenderness Back/Spine/Pelvis: Back: no CVA tenderness Skin: General skin exam: no rashes or lesions noted Neuro: General: moves all extremities Cranial nerves: Yes Equal, round and reactive pupils present Extrem: General: Yes normal to inspection Psych: Appearance: grossly normal Results Labs CBC & Chem 7: 10/28/21 05:30 10/28/21 05:30 Labs: Short CBC 10/27/21 10/28/21 Range/Units 17:44 05:30 WBC 12.9 H 6.9 (4.8-10.8) X10*3/uL Hgb 11.4 L 9.7 L (12.0-16.0) g/dl Hct 36.2 L 31.0 L (37.0-47.0) % Plt Count 363 329 (160-400) X10*3/uL [facility] 10/27/21 10/28/21 17:44 05:30 Sodium 140 141 Potassium 4.9 D 4.4 Chloride 100 101 Carbon Dioxide 28 31 H BUN 12 12 Creatinine 1.23 1.13 Calcium 9.3 8.4 D Liver Function 10/27/21 Range/Units 17:44 Total Bilirubin 0.3 (0.0-1.0) mg/dL AST 21 (5-31) U/L ALT 22 (0-31) U/L Alkaline Phosphatase 243 H (39-117) U/L Albumin 3.9 (3.5-5.0) g/dL Urine 10/27/21 Range/Units 23:10 Urine Color Yellow Urine Appearance Clear Urine pH 5.5 (5.0-8.0) Ur Specific [place] 1.015 (1.005-1.025) Urine Protein Negative (Neg-Trace) mg/dL Urine Glucose (UA) Negative (Negative) mg/dL Microbiology Microbiology Results: Microbiology 10/27/21 23:10 Urine clean catch - Urine guerra top Urine Culture - Preliminary Culture in progress. Assessment and Plan (1) Abdominal pain: Status: Acute most likely her discomfort is due to nephrolithiasis. There is chronic stone associated organisms but she may be colonized. (2) Kidney stones: Status: Acute Plan Would continue off antibiotics Only start organism directed therapy if problems with symptoms
[2021-10-28 17:01] LABS: Glucose, Whole Blood 93 mg/dL (60-115)
[2021-10-28 19:42] LABS: Glucose, Whole Blood 96 mg/dL (60-115)
[2021-10-28] MEDS: Escitalopram Oxalate 20 MG TABLET PO (20:05)
[2021-10-29] MEDS: HYDROmorphone HCl 0.5 MG/0.5 ML SYRINGE IVPUSH ×3 (00:08→08:45)
[2021-10-29 04:00] VITALS: BP 128/64; PULSE 73; RESP 16; TEMP 36.5; O2SAT 93
[2021-10-29 07:22] LABS: Glucose, Whole Blood 123 mg/dL (60-115)
[2021-10-29 07:34] VITALS: BP 140/70; PULSE 72; RESP 18; TEMP 37.1; O2SAT 95
[2021-10-29 07:59] VITALS: BP 152/84; PULSE 66; RESP 18; TEMP 36.9; O2SAT 95
[2021-10-29] MEDS: Apixaban 5 MG TABLET PO (08:45)
[2021-10-29] MEDS: Atorvastatin Calcium 10 MG TABLET PO (08:45)
[2021-10-29] MEDS: metFORMIN HCl ER 500 MG TAB.ER.24H 1000 MG PO (08:45)
[2021-10-29] MEDS: Lurasidone HCl 20 MG TABLET 60 MG PO (08:45)
[2021-10-29] MEDS: glipiZIDE 5 MG TABLET PO (08:45)
[2021-10-29] MEDS: 0.9 % Sodium Chloride Flush 3 ML SYRINGE IVFLUSH (08:45)
[2021-10-29] MEDS: Famotidine 20 MG TABLET PO (08:45)
[2021-10-29] MEDS: Promethazine HCL 25 MG TABLET PO (08:45)
[2021-10-29] MEDS: OXcarbazepine 300 MG TABLET PO (08:45)
[2021-10-29] MEDS: Fluticasone Propionate Nasal 16 GM SPRAY 1 SPRAY NOSTRIL-B (08:56)
--- NOTE | 2021-10-29 09:18 | P.CDIC_ITS ---
CDI Concurrent Query Documentation Clarification: PHYSICIAN'S DOCUMENTATION REQUEST Date of Query: 10/29/2118 Patient Name: Anna Marie Black Admit Date: 10/27/21 Dear Doctor, A review of the medical record indicates additional documentation may be needed. Please review below and update the documentation accordingly. Clinical Indicators: Risk Factors/Clinical Indicators/Treatments BMI: 35.4 5' 3 IN Height. If possible, please provide an associated diagnosis related to the abnormal BMI, such as: For a BMI >= 35: * Overweight * Obesity Or: * BMI is not significant * Other (please specify) * Unable to determine Use of terms such as suspected, likely, concern for, or probable (associated with a specific diagnosis that is being evaluated, monitored, or treated as if it exists) are acceptable and can be coded in the inpatient setting, when documented at the time of discharge. Thank you, Carol Izaguirre [facility], CDIS Extension: [phone] Please use your independent medical judgment in providing your response. THIS QUERY IS PART OF THE PERMANENT MEDICAL RECORD Provider Response: Obesity Other Diagnosis: Borderline obesity
--- NOTE | 2021-10-29 09:58 | PM.DS ---
DS: Providers Provider Date of Service: 10/29/21 Date of admission: 10/27/21 23:49 Primary care physician: TREVOR Avila Consults: 10/27/21 23:50 Consult to Infectious Diseases Routine Consulting Provider: Lulu Avina Reason for consultation: UTI with hx ESBL Klebsiella Has provider been notified: No 10/28/21 00:36 Consult to Infectious Diseases Routine Consulting Provider: Lulu Avina Reason for consultation: MDR UTI; abx approval DS: Diagnosis Discharge Diagnosis (1) Abdominal pain: Status: Acute (2) Kidney stones: Status: Acute DS: Summary Hospital Course Hospital Course: Chief Complaint: abd pain 50-year-old female with a past medical history of hypertension, hyperlipidemia, diabetes, asthma, history of acute respiratory failure secondary to asthma exacerbation requiring intubation, complicated by cardiac arrest x2, subsequently had tracheostomy, has trach collar; history of necrotizing pancreatitis status post surgery; kidney stones-recently had stent removed by Dr. Agosto; history of ESBL UTI; anxiety, depression, bipolar disorder, takotsubo cardiomyopathy presented to the hospital today with a chief complaint of abdominal pain.? Patient reports that for the past 2 days she has been having abdominal pain located diffusely in the anterior abdomen and also in the left flank; mentioned that she has concern for possible kidney stone.? Hence presented to the ER for further evaluation.? Also had multiple episodes of projectile vomiting.? Denies any diarrhea.? Denies any concerns for food poisoning.? Denies any urinary urgency frequency or dysuria.? Mentions that she had kidney stones in the past and had stent placed-which was removed about a month ago.? Follows with Dr. Agosto.? Mentions that her respiratory status is currently fine, trach currently stable, follows with [facility] in [place].? Denies any alcohol use.? Denies any chest pain or palpitations.? Denies any fever chills.? Review of all other systems is negative except mentioned above ER course: Per ER team patient noted to have abdominal tenderness; CT scan showed chronic abdominal findings-postsurgical, improved compared to prior CT scan; urinalysis was abnormal consistent with UTI.? Also noted to have renal calculi-nonobstructing; given history of multidrug resistant bacterial UTI-patient was given ertapenem, vancomycin in the ER.? Admitted to the hospital for further management Hospital course: Patient was admitted with abdominal pain, nausea and vomitting and concern for possible UTI and has punctate non-obstructing kidney stones. She has chronic UTI and colonization and was started on IV antibitiocs, urine cultures have been negative and was seen by ID with recommendation to stop antibiotics, her nausea and vomitting has resolved. She is tolerating diet and will be discharged home. It is possible her stones were related to non obstructing stones and urology plans on no intervention. She is comfortable going home. Time Spent with Patient Time attestation: Total time spent providing and/or coordinating discharge services: Discharge coordination time: Greater than 30 minutes Quality: Safe Use of Opioids Does Pt have an Active Cancer Diagnosis on the Problem List?: No Quality: Stroke Does the patient have a stroke diagnosis?: No Physical Exam Vital Signs: Vital Signs: Last Vital Signs Temp 98.5 F 10/29/21 07:59 Pulse 66 10/29/21 07:59 Resp 18 10/29/21 07:59 BP 152/84 H 10/29/21 07:59 Pulse Ox 95 10/29/21 07:59 O2 Del Method 10/29/21 07:59 BMI result Body Mass Index 35.4 DS: Data Data Completed and Pending Completed studies during hospitalization [Text1]: Procedures Dilation of Left Ureter with Intraluminal Device, Via Natural or Artificial Opening Endoscopic (06/11/21) Fluoroscopy of Left Kidney, Ureter and Bladder (06/11/21) Labs on day of discharge: Laboratory Results - last 24 hr 10/28/21 10/28/21 10/28/21 13:20 15:51 19:38 POC Glucose 92 93 96 10/29/21 07:18 POC Glucose 123 H Preliminary micro results at discharge 10/27/21 23:59 Blood Culture - Preliminary Blood - Venous No growth after 24 hours. 10/27/21 23:59 Blood Culture - Preliminary Blood - Venous No growth after 24 hours. 10/27/21 23:10 Urine Culture - Preliminary Urine clean catch - Urine guerra top Culture in progress. Discharge Plan Discharge Anticipated Discharge Date/Time: 10/29/21 09:43 Patient Disposition: Home, Self-Care Discharge Diagnosis: Nausea and vomiting, chronic UTI Referrals: Meli Sam FNP [Primary Care Provider] - 1 Week Discharge Medications: Continued albuterol sulfate 2.5 mg /3 mL (0.083 %) solution for nebulization 1 vial inhalation Q4H PRN (Reason: wheezing) atorvastatin 10 mg tablet 1 tab PO DAILY clonazepam 1 mg tablet 1 tab PO BID PRN (Reason: Anxiety) oxcarbazepine 300 mg tablet 1 tab PO BID famotidine 20 mg tablet 1 tab PO BID trazodone 100 mg tablet 1 tab PO BEDTIME PRN (Reason: Insomnia) promethazine 25 mg tablet 1 tab PO Q8H PRN (Reason: nausea) fluticasone propionate 50 mcg/actuation spray,suspension 1 spray intranasal DAILY metformin 500 mg tablet extended release 24 hr 2 tab PO BID glipizide 5 mg tablet 1 tab PO BID escitalopram oxalate 20 mg tablet 1 tab PO BEDTIME Eliquis 5 mg tablet 1 tab PO BID Latuda 60 mg tablet 1 tab PO BID Discharge Orders: Discharge Order (Routine); Ordered 10/29/21 Ordered By: Marty Doyle Diet: Advance to usual diet Activity on Discharge: As tolerated Stand Alone Forms: Patient Portal Discharge page Care Plan Goals: resolution of abdominal, nausea and vomitting Health Concerns: chronic UTI, chronic kidney stone Plan of Treatment: Follow up with your Doctor in a week Assessment: as above
[2021-10-29 11:02] VITALS: BP 141/69; PULSE 75; RESP 18; TEMP 36.9; O2SAT 95
--- NOTE | 2021-10-29 11:02 | MHC.CM.PN ---
Female patient dx UTI is discharged today to home. No services will be needed; because IV ABX are not required. Patient has arranged for transportation home.
[2021-10-29 11:07] LABS: Glucose, Whole Blood 121 mg/dL (60-115)
== END 2021-10-29 13:30 | disposition home or self-care (01) | DRG 463 ==
LOC: HO.ED 10-28 → HO.EDOVER 10-28 00:27 → HO.IMC 10-28 12:31
PROVIDERS: Physician Assistant; Admitting Provider Hospitalist; Emergency Provider Emergency Medicine Emergency Medical Services; PCP Internal Medicine; Visit Provider Internal Medicine
DX: N39.0 Urinary tract infection, site not specified (principal); Z86.74 Personal history of sudden cardiac arrest; Z93.0 Tracheostomy status; E11.9 Type 2 diabetes mellitus without complications; E78.5 Hyperlipidemia, unspecified; G89.29 Other chronic pain; J45.909 Unspecified asthma, uncomplicated; F31.0 Bipolar disorder, current episode hypomanic; F32.A Depression, unspecified; E66.9 Obesity, unspecified; F41.9 Anxiety disorder, unspecified; N20.0 Calculus of kidney; Z68.35 Body mass index [BMI] 35.0-35.9, adult; Z20.822 Contact with and (suspected) exposure to COVID-19; Z87.440 Personal history of urinary (tract) infections; Z79.51 Long term (current) use of inhaled steroids; Z88.8 Allergy status to other drugs, medicaments and biological substances; Z79.84 Long term (current) use of oral hypoglycemic drugs; Z79.891 Long term (current) use of opiate analgesic; Z79.899 Other long term (current) drug therapy
CPT/HCPCS: 36415; 74176; 80048; 80053; 81001; 82947; 83605; 83690; 85025; 87040; 87086; 87088; 87186; 87635; 96361; 96372; 96374; 96375; 99285; J1170; J1335; J2405; J3370

== ENCOUNTER 2021-11-19 12:45 | Emergency (ER) | payer OTHER, SELFPAY ==
--- NOTE | ~2021-11-19 | XR_ITS ---
EXAMINATION: XR CHEST CLINICAL INFORMATION: Difficulty breathing COMPARISON: Previous chest x-ray most recent August 2021 TECHNIQUE: 2 views of the chest were obtained. FINDINGS: The cardiac and mediastinal contours are stable. There is a tracheostomy with tip 5.8 cm above the jose. The lungs are clear. There is no pleural effusion or pneumothorax. There are degenerative changes of the spine. There is a partially visualized IVC filter seen on the lateral view. XR/XR chest 2V IMPRESSION: No evidence for acute disease in the chest.
--- NOTE | 2021-11-19 12:47 | ECG_ITS ---
Test Reason : sob Blood Pressure : / mmHG Vent. Rate : 081 BPM Atrial Rate : 081 BPM P-R Int : 170 ms QRS Dur : 088 ms QT Int : 402 ms P-R-T Axes : 043 -04 039 degrees QTc Int : 466 ms Normal sinus rhythm Possible Anterior infarct (cited on or before 11-JUN-2021) Abnormal ECG When compared with ECG of 10-SEP-2021 20:19, No significant change was found Referred By: Jaida Sena Electronically Signed By:BRYAN SIDHU
[2021-11-19 12:48] VITALS: BP 147/86; PULSE 85; RESP 18; TEMP 36.6; O2SAT 97; BMI 36.3
[2021-11-19 13:17] LABS: MANUAL DIFF FLAG NO
[2021-11-19 13:25] LABS: Basophils Percent Auto 0.3 % (0-2); Eosinophils Absolute Auto 0.1 X10*3/uL (0.0-0.4); Eosinophils Percent Auto 1.6 % (0-4); Hematocrit 32.8 % (37.0-47.0); Hemoglobin 10.3 g/dl (12.0-16.0); Imm Gran Abs Auto 0.03 X10*3/uL (0.00-0.03); Imm Gran Pct Auto 0.4 % (0.0-0.4); Lymphocytes Absolute Auto 0.8 X10*3/uL (1.2-4.9); Lymphocytes Percent Auto 11.1 % (20-40); Mean Corpuscular HGB Conc 31.4 g/dl (31.0-35.0); Mean Corpuscular Hemoglobin 27.4 pg (27.0-33.0); Mean Corpuscular Volume 87.2 fL (80.0-98.0); Mean Platelet Volume 9.4 fL (9.4-12.3); Monocytes Absolute Auto 0.4 X10*3/uL (0.1-1.2); Neutrophils Percent Auto 81.6 % (45-73); Platelet Count 309 X10*3/uL (160-400); Red Blood Count 3.76 X10*6/uL (4.20-5.50); Red Cell Distribution Width 14.1 % (11.0-16.0); White Blood Count 7.4 X10*3/uL (4.8-10.8)
[2021-11-19 13:31] LABS: INTERNATIONAL NORM RATIO 1.3 (0.9-1.1)
[2021-11-19 13:36] LABS: COVID-19 Test Negative (Negative); IDNOW Serial# 16C4AD1C
[2021-11-19 13:37] LABS: Alanine Aminotransferase 14 U/L (0-31); Albumin Level 3.6 g/dL (3.5-5.0); Alkaline Phosphatase 162 U/L (39-117); Anion Gap 17 (12-20); Aspartate Amino Transferase 13 U/L (5-31); Bilirubin Total 0.2 mg/dL (0.0-1.0); Blood Urea Nitrogen 13 mg/dL (9-16); Calcium 8.7 mg/dL (8.4-10.2); Carbon Dioxide 27 mmol/L (22-29); Chloride 98 mmol/L (96-108); Estimated Glomerular Filt Rate 46; Glucose Random 220 mg/dL (60-115); Magnesium 1.6 mg/dL (1.6-2.6); Potassium 4.7 mmol/L (3.3-5.1); Sodium 137 mmol/L (135-145); Total Protein 6.8 g/dL (6.5-8.0)
[2021-11-19 22:13] VITALS: BP 154/73; PULSE 83; RESP 20; TEMP 36.7; O2SAT 98
--- NOTE | 2021-11-19 22:33 | ED.SOB ---
HPI - SOB/Dyspnea General Chief Complaint: Upper Respiratory Symptoms Stated Complaint: diff breathing pain lower l back pt has trach Time Seen by Provider: 11/19/21 12:47 Source: patient Mode of arrival: ambulatory Limitations: no limitations History of Present Illness HPI Narrative: Patient 51 years old with history of severe asthma status post tracheostomy, diabetes, anxiety, chronic pain on chronic opiates, necrotizing pancreatitis, kidney stone had cardiac arrest secondary to hypoxia in 04/04 and had tracheostomy done at that time also had a history of PE last year is on Eliquis comes here for last 1 week of productive cough Related Data Home Medications Medication Instructions Recorded Confirmed albuterol sulfate 2.5 mg/3 mL 1 vial inhalation Q4H PRN wheezing 10/28/21 10/28/21 (0.083 %) solution for nebulization apixaban 5 mg tablet (Eliquis) 1 tab PO BID 10/28/21 10/28/21 atorvastatin 10 mg tablet 1 tab PO DAILY 10/28/21 10/28/21 clonazepam 1 mg tablet 1 tab PO BID PRN Anxiety 10/28/21 10/28/21 escitalopram oxalate 20 mg tablet 1 tab PO BEDTIME 10/28/21 10/28/21 famotidine 20 mg tablet 1 tab PO BID 10/28/21 10/28/21 fluticasone propionate 50 1 spray intranasal DAILY 10/28/21 10/28/21 mcg/actuation nasal spray,suspension glipizide 5 mg tablet 1 tab PO BID 10/28/21 10/28/21 lurasidone 60 mg tablet (Latuda) 1 tab PO BID 10/28/21 10/28/21 metformin 500 mg tablet,extended 2 tab PO BID 10/28/21 10/28/21 release 24 hr oxcarbazepine 300 mg tablet 1 tab PO BID 10/28/21 10/28/21 promethazine 25 mg tablet 1 tab PO Q8H PRN nausea 10/28/21 10/28/21 trazodone 100 mg tablet 1 tab PO BEDTIME PRN Insomnia 10/28/21 10/28/21 Previous Rx's Medication Instructions Recorded cefuroxime axetil 500 mg tablet 500 mg PO BID #20 tabs 11/20/21 doxycycline hyclate 100 mg tablet 100 mg PO BID #20 tabs 11/20/21 Allergies Allergy/AdvReac Type Severity Reaction Status Date / Time pantoprazole Allergy Unknown Verified 10/27/21 17:23 [facility] Past Medical History Medical History Asthma Bipolar 1 disorder Diabetes Kidney stones Substance abuse Takotsubo cardiomyopathy UTI (urinary tract infection) Wound drainage Surgical History H/O exploratory laparotomy S/P cholecystectomy S/P ureteral stent placement Social History Social History Household Members: Significant Other Household Members Other:: 2 Housing: Apartment Do you presently have visiting nurse or other home services: No Alcohol intake: never Patient Tobacco Use Status: Never used Tobacco Advance Directives: No Advance Directives Information Provided: No Patient : No service: No Current occupational status: disabled Physical Exam Vital Signs: Vital Signs: Last Vital Signs Temp 98.1 F 11/19/21 22:13 Pulse 83 11/19/21 23:41 Resp 20 11/19/21 23:41 BP 154/73 H 11/19/21 22:13 Pulse Ox 98 11/19/21 22:13 O2 Del Method 11/19/21 22:13 BMI result Body Mass Index 36.3 Appearance: Alert. Oriented X3. No acute distress. Eyes: PERRLA, No Nystagmus ENT: Pharynx normal. Oral Mucosa moist tracheostomy in place no significant secretion Neck: Normal inspection. Neck supple. CVS: Normal heart rate and rhythm. Pulses normal. Respiratory: No respiratory distress. Equal air entry bilateral, no wheezing/rales/rhonchi , prolonged expiration Abdomen: Soft and nontender. Bowel sounds are present, no mass palpable, no CVA tenderness Skin: Skin warm and dry. Normal skin color. Normal skin turgor. Extremities: No lower extremity edema. No calf tenderness Neuro: Oriented X 3. No motor deficit. No sensory deficit.No cerebellar signs , cranial nerves II-XII intact MDM - SOB/Dyspnea MDM Narrative Medical decision making narrative: Patient has atypical symptoms chest x-ray negative says that she has lot of phlegm coming up but clinically does not seem too, will discharge patient home on doxycycline and Ceftin for bronchitis Medical Records Attestation: I reviewed the patient's medical records. Lab Data Attestation: I reviewed the patient's lab results. Result diagrams: 11/19/21 13:11 11/19/21 13:11 Labs: Lab Results 11/19/21 11/19/21 11/19/21 Range/Units 13:11 13:11 13:11 WBC 7.4 (4.8-10.8) X10*3/uL RBC 3.76 L (4.20-5.50) X10*6/uL Hgb 10.3 L (12.0-16.0) g/dl Hct 32.8 L (37.0-47.0) % MCV 87.2 (80.0-98.0) fL MCH 27.4 (27.0-33.0) pg MCHC 31.4 (31.0-35.0) g/dl RDW 14.1 (11.0-16.0) % Plt Count 309 (160-400) X10*3/uL MPV 9.4 (9.4-12.3) fL Immature Gran % (Auto) 0.4 (0.0-0.4) % Neut % (Auto) 81.6 H (45-73) % Lymph % (Auto) 11.1 L (20-40) % Power % (Auto) 5.0 (2-11) % Eos % (Auto) 1.6 (0-4) % Baso % (Auto) 0.3 (0-2) % Lymph # (Auto) 0.8 L (1.2-4.9) X10*3/uL Power # (Auto) 0.4 (0.1-1.2) X10*3/uL Eos # (Auto) 0.1 (0.0-0.4) X10*3/uL Baso # (Auto) 0.0 (0.0-0.2) X10*3/uL Abs Immat Gran (auto) 0.03 (0.00-0.03) X10*3/uL Absolute Neuts (auto) 6.0 (2.0-8.3) x10*3/uL Absolute Nucleated RBC 0.000 (0.0-0.012) X10*3/uL Nucleated RBC % (auto) 0.0 (0.0-0.2) /100WBC Hold Purple Top SEE NOTE PT 15.0 H (10.0-13.1) SEC INR 1.3 H (0.9-1.1) D-Dimer High Sensitivty NG/ML Sodium (135-145) mmol/L Potassium (3.3-5.1) mmol/L Chloride (96-108) mmol/L Carbon Dioxide (22-29) mmol/L Anion Gap (12-20) BUN (9-16) mg/dL Creatinine (0.5-1.4) mg/dL Estim Creat Clear Calc Estimated GFR Random Glucose (60-115) mg/dL Calcium (8.4-10.2) mg/dL Magnesium (1.6-2.6) mg/dL Total Bilirubin (0.0-1.0) mg/dL AST (5-31) U/L ALT (0-31) U/L Alkaline Phosphatase (39-117) U/L Troponin I High Sens (<3.5-17.0) ng/L B-Natriuretic Peptide (<100) pg/mL Total Protein (6.5-8.0) g/dL Albumin (3.5-5.0) g/dL COVID-19 (PRETTY) (Negative) COVID-19 Clin Com 11/19/21 11/19/21 11/19/21 Range/Units 13:11 13:11 23:19 WBC (4.8-10.8) X10*3/uL RBC (4.20-5.50) X10*6/uL Hgb (12.0-16.0) g/dl Hct (37.0-47.0) % MCV (80.0-98.0) fL MCH (27.0-33.0) pg MCHC (31.0-35.0) g/dl RDW (11.0-16.0) % Plt Count (160-400) X10*3/uL MPV (9.4-12.3) fL Immature Gran % (Auto) (0.0-0.4) % Neut % (Auto) (45-73) % Lymph % (Auto) (20-40) % Power % (Auto) (2-11) % Eos % (Auto) (0-4) % Baso % (Auto) (0-2) % Lymph # (Auto) (1.2-4.9) X10*3/uL Power # (Auto) (0.1-1.2) X10*3/uL Eos # (Auto) (0.0-0.4) X10*3/uL Baso # (Auto) (0.0-0.2) X10*3/uL Abs Immat Gran (auto) (0.00-0.03) X10*3/uL Absolute Neuts (auto) (2.0-8.3) x10*3/uL Absolute Nucleated RBC (0.0-0.012) X10*3/uL Nucleated RBC % (auto) (0.0-0.2) /100WBC Hold Purple Top PT (10.0-13.1) SEC INR (0.9-1.1) D-Dimer High Sensitivty < 150 NG/ML Sodium 137 (135-145) mmol/L Potassium 4.7 (3.3-5.1) mmol/L Chloride 98 (96-108) mmol/L Carbon Dioxide 27 (22-29) mmol/L Anion Gap 17 (12-20) BUN 13 (9-16) mg/dL Creatinine 1.23 (0.5-1.4) mg/dL Estim Creat Clear Calc 58.0 Estimated GFR 46 Random Glucose 220 H (60-115) mg/dL Calcium 8.7 (8.4-10.2) mg/dL Magnesium 1.6 (1.6-2.6) mg/dL Total Bilirubin 0.2 (0.0-1.0) mg/dL AST 13 (5-31) U/L ALT 14 (0-31) U/L Alkaline Phosphatase 162 H D (39-117) U/L Troponin I High Sens (<3.5-17.0) ng/L B-Natriuretic Peptide (<100) pg/mL Total Protein 6.8 (6.5-8.0) g/dL Albumin 3.6 (3.5-5.0) g/dL COVID-19 (PRETTY) Negative (Negative) COVID-19 Clin Com See Note 11/19/21 Range/Units 23:19 WBC (4.8-10.8) X10*3/uL RBC (4.20-5.50) X10*6/uL Hgb (12.0-16.0) g/dl Hct (37.0-47.0) % MCV (80.0-98.0) fL MCH (27.0-33.0) pg MCHC (31.0-35.0) g/dl RDW (11.0-16.0) % Plt Count (160-400) X10*3/uL MPV (9.4-12.3) fL Immature Gran % (Auto) (0.0-0.4) % Neut % (Auto) (45-73) % Lymph % (Auto) (20-40) % Power % (Auto) (2-11) % Eos % (Auto) (0-4) % Baso % (Auto) (0-2) % Lymph # (Auto) (1.2-4.9) X10*3/uL Power # (Auto) (0.1-1.2) X10*3/uL Eos # (Auto) (0.0-0.4) X10*3/uL Baso # (Auto) (0.0-0.2) X10*3/uL Abs Immat Gran (auto) (0.00-0.03) X10*3/uL Absolute Neuts (auto) (2.0-8.3) x10*3/uL Absolute Nucleated RBC (0.0-0.012) X10*3/uL Nucleated RBC % (auto) (0.0-0.2) /100WBC Hold Purple Top PT (10.0-13.1) SEC INR (0.9-1.1) D-Dimer High Sensitivty NG/ML Sodium (135-145) mmol/L Potassium (3.3-5.1) mmol/L Chloride (96-108) mmol/L Carbon Dioxide (22-29) mmol/L Anion Gap (12-20) BUN (9-16) mg/dL Creatinine (0.5-1.4) mg/dL Estim Creat Clear Calc Estimated GFR Random Glucose (60-115) mg/dL Calcium (8.4-10.2) mg/dL Magnesium (1.6-2.6) mg/dL Total Bilirubin (0.0-1.0) mg/dL AST (5-31) U/L ALT (0-31) U/L Alkaline Phosphatase (39-117) U/L Troponin I High Sens < 3.5 (<3.5-17.0) ng/L B-Natriuretic Peptide 19 (<100) pg/mL Total Protein (6.5-8.0) g/dL Albumin (3.5-5.0) g/dL COVID-19 (PRETTY) (Negative) COVID-19 Clin Com ECG Data Attestation: I personally reviewed and interpreted this ECG as follows: Interpretation: Number sinus rhythm heart rate 81 beats per minute poor progression of R-wave no acute ischemia no acute ST wave change Discharge Plan Discharge Clinical Impression: Bronchitis Patient Disposition: Home, Self-Care Instructions: Acute Bronchitis (ED) Additional Instructions: Take antibiotic as prescribed Follow-up with your PCP Report to the ER if worsening of the cough or shortness of breath continue inhalers Prescriptions: New cefuroxime axetil 500 mg tablet 500 mg PO BID Qty: 20 0RF doxycycline hyclate 100 mg tablet 100 mg PO BID Qty: 20 0RF No Action albuterol sulfate 2.5 mg /3 mL (0.083 %) solution for nebulization 1 vial inhalation Q4H PRN (Reason: wheezing) atorvastatin 10 mg tablet 1 tab PO DAILY clonazepam 1 mg tablet 1 tab PO BID PRN (Reason: Anxiety) oxcarbazepine 300 mg tablet 1 tab PO BID famotidine 20 mg tablet 1 tab PO BID trazodone 100 mg tablet 1 tab PO BEDTIME PRN (Reason: Insomnia) promethazine 25 mg tablet 1 tab PO Q8H PRN (Reason: nausea) fluticasone propionate 50 mcg/actuation spray,suspension 1 spray intranasal DAILY metformin 500 mg tablet extended release 24 hr 2 tab PO BID glipizide 5 mg tablet 1 tab PO BID escitalopram oxalate 20 mg tablet 1 tab PO BEDTIME Eliquis 5 mg tablet 1 tab PO BID Latuda 60 mg tablet 1 tab PO BID Interventions: ED Discharge Assessment Last Done: 11/20/21 00:32 Discharge Date/Time: 11/20/21 00:34
[2021-11-19] MEDS: Albuterol Sulfate 2.5 MG, Albuterol/Iprat 2.5/0.5MG 3 ML 3 ML INHALE (23:16)
[2021-11-19] MEDS: methylPREDNISolone Sod Succ 125 MG/2 ML VIAL IVPUSH (23:23)
[2021-11-19] MEDS: HYDROmorphone HCl 1 MG/ML SYRINGE IVPUSH (23:29)
[2021-11-19 23:34] LABS: D Dimer High Sensitivity < 150 NG/ML
[2021-11-19 23:41] VITALS: PULSE 83; RESP 20; O2SAT 96
[2021-11-19 23:45] LABS: B Type Natriuretic Peptide 19 pg/mL (<100); Troponin-I High Sensitivity < 3.5 ng/L (<3.5-17.0)
== END 2021-11-20 00:34 | disposition home or self-care (01) ==
PROVIDERS: Physician Assistant Medical; Emergency Provider Internal Medicine
DX: J40 Bronchitis, not specified as acute or chronic (principal); R06.02 Shortness of breath; F41.1 Generalized anxiety disorder; F43.0 Acute stress reaction; Z20.822 Contact with and (suspected) exposure to COVID-19; Z79.899 Other long term (current) drug therapy
CPT/HCPCS: 36415; 71046; 80053; 83735; 83880; 84484; 85025; 85379; 85610; 87635; 93005; 94640; 96374; 96375; 99284; J1170; J2930

== ENCOUNTER 2022-01-24 13:08 | Inpatient (IN) | payer OTHER, SELFPAY ==
--- NOTE | ~2022-01-24 | XR_ITS ---
EXAMINATION: XR chest 1V CLINICAL INFORMATION: Reason for Exam dyspnea COMPARISON: 11/19/2021 TECHNIQUE: XR chest 1V Tubes and lines: Tracheostomy tube remain in place properly positioned unchanged. Lungs and pleura: Elevation right hemidiaphragm unchanged, mild probably chronic increased lung interstitial markings, lungs otherwise remain clear. Heart and mediastinum: The mediastinum is within normal limits.. Bones/soft tissue: Skeletal structures included are normal for patient's age. XR/XR chest 1V IMPRESSION: 1. No radiographic evidence of acute infiltrates or failure. 2. Tracheostomy tube remain in place unchanged. 3. Elevation right hemidiaphragm unchanged.
[2022-01-24 14:05] VITALS: BP 145/67; PULSE 109; RESP 24; TEMP 36.7; O2SAT 94; BMI 31.8
--- NOTE | 2022-01-24 14:07 | ECG_ITS ---
Test Reason : DYSPNEA Blood Pressure : / mmHG Vent. Rate : 088 BPM Atrial Rate : 088 BPM P-R Int : 168 ms QRS Dur : 086 ms QT Int : 382 ms P-R-T Axes : 036 -12 038 degrees QTc Int : 462 ms Normal sinus rhythm Left axis deviation Borderline ECG When compared with ECG of 19-NOV-2021 13:03, No significant change was found Referred By: Generic ED Physician Electronically Signed By:KENDAL PATRICK MD
[2022-01-24] MEDS: Albuterol/Iprat 2.5/0.5MG 3 ML AMPUL.NEB INHALE ×2 (15:05→20:17)
--- NOTE | 2022-01-24 15:16 | ED.SOB ---
HPI - SOB/Dyspnea General Chief Complaint: Dyspnea Stated Complaint: sob, asthma Time Seen by Provider: 01/24/22 14:26 Source: patient Mode of arrival: ambulatory Limitations: no limitations History of Present Illness HPI Narrative: 51 years old with history of severe asthma status post tracheostomy, diabetes, anxiety, chronic pain on chronic opiates, necrotizing pancreatitis, kidney stone had cardiac arrest secondary to hypoxia in 04/04 and had tracheostomy done at that time also had a history of PE last year is on Eliquis here with complaints of increasing shortness breath over the last month. Patient reports he did 2 rounds of prednisone, 1 round of Augmentin with continued symptoms. No productive cough. Patient does report some back pain but no chest pain. Back pain/shoulder pain with coughing. 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 No fevers, chills, leg swelling or leg pain. Patient reports compliance with Eliquis with no mixed doses Related Data Home Medications Medication Instructions Recorded Confirmed albuterol sulfate 2.5 mg/3 mL 1 vial inhalation Q4H PRN wheezing 10/28/21 01/24/22 (0.083 %) solution for nebulization apixaban 5 mg tablet (Eliquis) 1 tab PO BID 10/28/21 01/24/22 atorvastatin 10 mg tablet 1 tab PO DAILY 10/28/21 01/24/22 clonazepam 1 mg tablet 1 tab PO BID PRN Anxiety 10/28/21 01/24/22 escitalopram oxalate 20 mg tablet 1 tab PO BEDTIME 10/28/21 01/24/22 famotidine 20 mg tablet 1 tab PO BID 10/28/21 01/24/22 fluticasone propionate 50 1 spray intranasal DAILY 10/28/21 01/24/22 mcg/actuation nasal spray,suspension glipizide 5 mg tablet 1 tab PO BIDAC 10/28/21 01/24/22 lurasidone 60 mg tablet (Latuda) 1 tab PO DAILY 10/28/21 01/24/22 metformin 500 mg tablet,extended 2 tab PO BIDWM 10/28/21 01/24/22 release 24 hr oxcarbazepine 300 mg tablet 1 tab PO BID 10/28/21 01/24/22 promethazine 25 mg tablet 1 tab PO DAILY PRN nausea 10/28/21 01/24/22 trazodone 100 mg tablet 1 tab PO BEDTIME 10/28/21 01/24/22 albuterol sulfate 90 mcg/actuation 2 puff inhalation QID PRN 01/24/22 01/24/22 aerosol inhaler (Ventolin HFA) Shortness Of Breath diphenhydramine HCl 25 mg capsule 25 mg PO Q6H PRN POST NASAL DRIP 01/24/22 01/24/22 (Benadryl) tizanidine 4 mg tablet 1 tab PO DAILY PRN muscle spasm 01/24/22 01/24/22 Allergies Allergy/AdvReac Type Severity Reaction Status Date / Time pantoprazole Allergy Unknown Verified 10/27/21 17:23 Review of Systems Review of Systems: Yes all other systems are reviewed and are negative Constitutional: Constitutional: Reports no additional constitutional complaints, Denies body ache(s), Denies chills, Denies fever(s), Denies headache(s) and Denies weakness Eyes: Eyes: Reports no additional eye complaints and Denies change in vision ENT: Reports system reviewed and no additional complaints, except as documented, Denies dizziness, Denies headache(s), Denies nasal congestion, Denies nasal discharge and Denies neck pain Cardiovascular: Cardiovascular: Reports no additional cardiovascular complaints, Denies chest pain, Denies leg edema and Reports dyspnea Respiratory: Respiratory: Reports no additional respiratory complaints, Denies cough, Reports dyspnea and Reports wheezing Gastrointestinal: Gastrointestinal: Reports no additional gastrointestinal complaints, Denies abdominal pain, Denies diarrhea, Denies nausea and Denies vomiting Genitourinary: Genitourinary: Reports no additional female genitourinary complaints and Denies urinary incontinence Musculoskeletal: Musculoskeletal: Reports no additional musculoskeletal complaints, Reports back pain, Denies arthralgias, Denies joint swelling, Denies neck pain, Denies numbness and Denies tingling Integumentary/Breasts: Skin/Breast: Reports system reviewed and no additional complaints, except as docu and Denies rash Neurologic: Reports system reviewed and no additional complaints, except as documented, Denies Abnormal speech present, Denies dizziness, Denies headache(s), Denies numbness, Denies tingling and Denies weakness Allergic/Immunologic: Allergic/Immunologic: Reports wheezing PMFSH Past Medical History Attestation statement: The following information was validated with the patient. Source: old records reviewed and nursing notes reviewed Medical History Acute UTI Asthma Bipolar 1 disorder Diabetes Kidney stones Substance abuse Takotsubo cardiomyopathy UTI (urinary tract infection) Wound drainage Surgical History H/O exploratory laparotomy S/P cholecystectomy S/P ureteral stent placement Social History Social History Household Members: Significant Other Household Members Other:: 2 Housing: Apartment Do you presently have visiting nurse or other home services: No Alcohol intake: never Patient Tobacco Use Status: Never used Tobacco Advance Directives: Yes Advance Directives Information Provided: No Advance Directives on File: No service: No Current occupational status: disabled Physical Exam Vital Signs: Vital Signs: Last Vital Signs Temp 98.1 F 01/24/22 14:05 Pulse 75 01/24/22 17:57 Resp 18 01/24/22 17:57 BP 141/79 H 01/24/22 17:57 Pulse Ox 94 01/24/22 17:57 O2 Del Method 01/24/22 17:57 BMI result Body Mass Index 31.8 Const: General: cooperative, healthy appearing, comfortable and no acute distress Orientation/consciousness: patient oriented x3 Limitations: no limitations HEENT: Head: Yes normal to inspection Ears: hearing grossly normal bilaterally General nose exam: Normal external nose present Face and sinus: Yes normal facial exam Mouth: Normal oral and palatal mucosa present Throat: Yes posterior oropharynx normal Eyes: General: appearance normal, both eyes and all related structures Pupils: Equal, round and reactive pupils present Neck: Neck: Yes normal visual inspection and Yes tracheostomy present Chest: Chest palpation & inspection: normal inspection of the chest Resp: Other: Diminished breath sounds, mild expiratory wheeze Effort & Inspection: normal respiratory effort Cardio: Rate: regular rate Rhythm: regular rhythm Peripheral pulses: Peripheral pulses 2+ throughout GI: Inspection: Yes normal to inspection Palpation (GI): Soft to palpation and nontender Auscultation: normal bowel sounds Back/Spine/Pelvis: Thoracic/Lumbar Spine: thoracic and lumbar spine normal to inspection Skin: General skin exam: no rashes or lesions noted Neuro: General: patient oriented x3, no focal motor deficits and normal sensation to monofilament Cranial nerves: Yes Equal, round and reactive pupils present Cognition (Neuro): normal cognition Speech: No Abnormal speech present Gait exam (Neuro): Normal gait present Motor exam (neuro): 5/5 motor strength present throughout Extrem: General: Yes normal to inspection, Yes no pedal edema and Yes no calf tenderness Course Course Course Narrative: Patient glucose 473. No signs DKA. Patient has mildly elevated potassium levels. Patient is diabetic. Patient has been on multiple rounds of steroids. This may be causing her hyperglycemia. Patient to be given fluids, insulin IV. Will recheck chemistry, Chest x-ray shows no evidence of pneumonia. Labs otherwise are unremarkable. Testing for flu, COVID and RSV are negative. Respiratory was unable to pass suction catheter through the patient's trach. We applied aerosol for several hours and re-attempted to pass the suction catheter were unsuccessful. Patient has no inner cannula. She tells me her trach was changed over a month ago. She has not been suctioning her trach at home were cleaning it. This is likely the cause of the patient's shortness of breath. Patient will likely need admission for trach change. RT to see if we have trach available here for patient. Patient has hyperflex 6.0 (RT confirms we have here) Reevaluation(s) Reevaluation #1: [id number] with Dr Cuevas who accepted admission. Medications Administered Discontinued Medications Generic Name Dose Route Start Last Admin Trade Name Freq PRN Reason Stop Dose Admin Acetaminophen 975 mg 01/24/22 17:19 01/24/22 17:56 Acetaminophen 325 Mg Tablet PO 01/24/22 17:20 Not Given ONCE ONE Albuterol/Ipratropium 3 ml 01/24/22 14:51 01/24/22 15:05 Albuterol/Iprat 2.5/0.5mg 3 Ml Ampul.Neb INHALE 01/24/22 14:52 3 ml ONCE ONE Administration Hydromorphone HCl 0.5 mg 01/24/22 14:51 01/24/22 15:36 Hydromorphone Hcl 0.5 Mg/0.5 Ml Syringe IVPUSH 01/24/22 14:52 0.5 mg ONCE ONE Administration Protocol Magnesium Sulfate 2 gm in 50 mls @ 25 mls/hr 01/24/22 14:51 01/24/22 15:36 Magnesium Sulfate/H2o IV 01/24/22 16:50 25 mls/hr ONCE ONE Administration Sodium Chloride 1,000 mls @ 999 mls/hr 01/24/22 16:59 01/24/22 17:55 Ns IV 01/24/22 17:59 999 mls/hr .Q1H1M STA Administration Insulin Human Regular 5 unit 01/24/22 17:00 01/24/22 17:53 Insulin Regular, Human 100 Unit/Ml 3 Ml Vial IVPUSH 01/24/22 17:01 5 unit ONCE ONE Administration Methylprednisolone Sodium Succinate 125 mg 01/24/22 14:51 01/24/22 15:36 Methylprednisolone Sod Succ 125 Mg/2 Ml Vial IVPUSH 01/24/22 14:52 125 mg ONCE ONE Administration Oxycodone HCl 10 mg 01/24/22 17:19 01/24/22 17:57 Oxycodone Hcl Immed Release 5 Mg Tablet PO 01/24/22 17:20 Not Given ONCE ONE MDM - SOB/Dyspnea MDM Narrative Medical decision making narrative: 51-year-old female with a history of severe asthma, respiratory arrest requiring long-term use intubation and subsequent trach placement, PE and DVT on Eliquis here with complaints of increasing shortness of breath over the last month with some back discomfort. No cough or fever or chest pain. On arrival. Patient has diminished breath sounds with some mild expiratory wheezing. Vitals showed mild tachypnea, oxygen saturation around 90%, mild tachycardia. Patient will need labs, EKG, chest x-ray, COVID screen. Will give magnesium, Solu-Medrol, DuoNeb, pain control Consider COPD exacerbation, pneumonia Low concern for PE with no clinical findings concerning for DVT and patient being compliant on her Eliquis Low concern for ACS with normal EKG and negative troponin Medical Records Attestation: I reviewed the patient's medical records. Lab Data Attestation: I reviewed the patient's lab results. Result diagrams: 01/24/22 15:29 01/24/22 15:29 Labs: Lab Results 01/24/22 01/24/22 01/24/22 Range/Units 15:29 15:29 15:29 WBC 8.2 (4.8-10.8) X10*3/uL RBC 4.01 L (4.20-5.50) X10*6/uL Hgb 11.1 L (12.0-16.0) g/dl Hct 35.3 L (37.0-47.0) % MCV 88.0 (80.0-98.0) fL MCH 27.7 (27.0-33.0) pg MCHC 31.4 (31.0-35.0) g/dl RDW 13.8 (11.0-16.0) % Plt Count 333 (160-400) X10*3/uL MPV 9.6 (9.4-12.3) fL Absolute Nucleated RBC 0.000 (0.0-0.012) X10*3/uL Nucleated RBC % (auto) 0.0 (0.0-0.2) /100WBC PT (10.0-13.1) SEC INR (0.9-1.1) Sodium 134 L (135-145) mmol/L Potassium 5.5 H (3.3-5.1) mmol/L Chloride 95 L (96-108) mmol/L Carbon Dioxide 27 (22-29) mmol/L Anion Gap 18 (12-20) BUN 22 H (9-16) mg/dL Creatinine 1.20 (0.5-1.4) mg/dL Estim Creat Clear Calc 55.4 Estimated GFR 47 Random Glucose 473 H* (60-115) mg/dL Calcium 9.2 (8.4-10.2) mg/dL Total Bilirubin (0.0-1.0) mg/dL Direct Bilirubin (0.0-0.5) mg/dL AST (5-31) U/L ALT (0-31) U/L Alkaline Phosphatase (39-117) U/L Troponin I High Sens < 3.5 (<3.5-17.0) ng/L B-Natriuretic Peptide (<100) pg/mL Total Protein (6.5-8.0) g/dL Albumin (3.5-5.0) g/dL Influenza Type A (PCR) (Negative) Influenza Type B (PCR) (Negative) RSV RNA Qual (PCR) (Negative) SARS-CoV-2 RNA (RT-PCR) (Negative) 11/13/22 11/13/22 11/13/22 Range/Units 15:29 15:29 15:29 WBC (4.8-10.8) X10*3/uL RBC (4.20-5.50) X10*6/uL Hgb (12.0-16.0) g/dl Hct (37.0-47.0) % MCV (80.0-98.0) fL MCH (27.0-33.0) pg MCHC (31.0-35.0) g/dl RDW (11.0-16.0) % Plt Count (160-400) X10*3/uL MPV (9.4-12.3) fL Absolute Nucleated RBC (0.0-0.012) X10*3/uL Nucleated RBC % (auto) (0.0-0.2) /100WBC PT 11.9 (10.0-13.1) SEC INR 1.0 (0.9-1.1) Sodium (135-145) mmol/L Potassium (3.3-5.1) mmol/L Chloride (96-108) mmol/L Carbon Dioxide (22-29) mmol/L Anion Gap (12-20) BUN (9-16) mg/dL Creatinine (0.5-1.4) mg/dL Estim Creat Clear Calc Estimated GFR Random Glucose (60-115) mg/dL Calcium (8.4-10.2) mg/dL Total Bilirubin 0.2 (0.0-1.0) mg/dL Direct Bilirubin < 0.2 (0.0-0.5) mg/dL AST 19 D (5-31) U/L ALT 31 (0-31) U/L Alkaline Phosphatase 232 H D (39-117) U/L Troponin I High Sens (<3.5-17.0) ng/L B-Natriuretic Peptide 66 (<100) pg/mL Total Protein 7.1 (6.5-8.0) g/dL Albumin 4.0 (3.5-5.0) g/dL Influenza Type A (PCR) (Negative) Influenza Type B (PCR) (Negative) RSV RNA Qual (PCR) (Negative) SARS-CoV-2 RNA (RT-PCR) (Negative) 01/24/22 Range/Units 15:52 WBC (4.8-10.8) X10*3/uL RBC (4.20-5.50) X10*6/uL Hgb (12.0-16.0) g/dl Hct (37.0-47.0) % MCV (80.0-98.0) fL MCH (27.0-33.0) pg MCHC (31.0-35.0) g/dl RDW (11.0-16.0) % Plt Count (160-400) X10*3/uL MPV (9.4-12.3) fL Absolute Nucleated RBC (0.0-0.012) X10*3/uL Nucleated RBC % (auto) (0.0-0.2) /100WBC PT (10.0-13.1) SEC INR (0.9-1.1) Sodium (135-145) mmol/L Potassium (3.3-5.1) mmol/L Chloride (96-108) mmol/L Carbon Dioxide (22-29) mmol/L Anion Gap (12-20) BUN (9-16) mg/dL Creatinine (0.5-1.4) mg/dL Estim Creat Clear Calc Estimated GFR Random Glucose (60-115) mg/dL Calcium (8.4-10.2) mg/dL Total Bilirubin (0.0-1.0) mg/dL Direct Bilirubin (0.0-0.5) mg/dL AST (5-31) U/L ALT (0-31) U/L Alkaline Phosphatase (39-117) U/L Troponin I High Sens (<3.5-17.0) ng/L B-Natriuretic Peptide (<100) pg/mL Total Protein (6.5-8.0) g/dL Albumin (3.5-5.0) g/dL Influenza Type A (PCR) NEGATIVE (Negative) Influenza Type B (PCR) NEGATIVE (Negative) RSV RNA Qual (PCR) NEGATIVE (Negative) SARS-CoV-2 RNA (RT-PCR) NEGATIVE (Negative) Imaging Data Chest x-ray: Attestation: I personally reviewed and interpreted this imaging study as follows: Radiologist's impression: [address] [address] XRay Report Signed Patient: Anna Marie Black MR#: [id number] : 1970 Acct:[id number] Age/Sex: 51 / F ADM Date: 01/24/22 Loc: HO.ED Attending Dr: Ordering Physician: Bassem Edwards MD Date of Service: 01/24/22 Procedure(s): XR chest 1V Accession Number(s): [id number] cc: Bassem Edwards MD~ EXAMINATION: XR chest 1V CLINICAL INFORMATION: Reason for Exam dyspnea COMPARISON: 11/19/2021? TECHNIQUE: XR chest 1V Tubes and lines: Tracheostomy tube remain in place properly positioned unchanged. Lungs and pleura: Elevation right hemidiaphragm unchanged, mild probably chronic increased lung interstitial markings, lungs otherwise remain clear. Heart and mediastinum: The mediastinum is within normal limits.. Bones/soft tissue: Skeletal structures included are normal for patient's age. XR/XR chest 1V IMPRESSION: 1.? No radiographic evidence of acute infiltrates or failure. 2.? Tracheostomy tube remain in place unchanged. 3.? Elevation right hemidiaphragm unchanged. ? ECG Data Attestation: I personally reviewed and interpreted this ECG as follows: ECG interpretation date: 01/24/22 ECG interpretation time: 14:24 Interpretation: Normal sinus rhythm with a rate 88, normal TN, normal QRS, or QT Discharge Plan Discharge Clinical Impression: Asthma with exacerbation, Hyperglycemia Patient Disposition: Admitted As Inpatient
[2022-01-24] MEDS: HYDROmorphone HCl 0.5 MG/0.5 ML SYRINGE IVPUSH ×2 (15:36→22:56)
[2022-01-24] MEDS: methylPREDNISolone Sod Succ 125 MG/2 ML VIAL IVPUSH (15:36)
[2022-01-24] MEDS: Magnesium Sulfate/H2O 2 GM/50 ML PIGGYBACK IV (15:36)
[2022-01-24 15:41] LABS: Hematocrit 35.3 % (37.0-47.0); Hemoglobin 11.1 g/dl (12.0-16.0); Mean Corpuscular HGB Conc 31.4 g/dl (31.0-35.0); Mean Corpuscular Hemoglobin 27.7 pg (27.0-33.0); Mean Platelet Volume 9.6 fL (9.4-12.3); Platelet Count 333 X10*3/uL (160-400); Red Blood Count 4.01 X10*6/uL (4.20-5.50); Red Cell Distribution Width 13.8 % (11.0-16.0); White Blood Count 8.2 X10*3/uL (4.8-10.8)
[2022-01-24 15:47] LABS: Prothrombin Time 11.9 SEC (10.0-13.1)
[2022-01-24 16:30] LABS: Alanine Aminotransferase 31 U/L (0-31); Alkaline Phosphatase 232 U/L (39-117); Aspartate Amino Transferase 19 U/L (5-31); Bilirubin Direct < 0.2 mg/dL (0.0-0.5); Bilirubin Total 0.2 mg/dL (0.0-1.0); Total Protein 7.1 g/dL (6.5-8.0)
[2022-01-24 16:36] LABS: B Type Natriuretic Peptide 66 pg/mL (<100); Troponin-I High Sensitivity < 3.5 ng/L (<3.5-17.0)
[2022-01-24 16:42] LABS: Anion Gap 18 (12-20); Blood Urea Nitrogen 22 mg/dL (9-16); Calcium 9.2 mg/dL (8.4-10.2); Carbon Dioxide 27 mmol/L (22-29); Chloride 95 mmol/L (96-108); Creatinine Clr Calc Pharmacy 55.4; Estimated Glomerular Filt Rate 47; Glucose Random 473 mg/dL (60-115); Potassium 5.5 mmol/L (3.3-5.1); Sodium 134 mmol/L (135-145)
[2022-01-24 16:53] LABS: Influenza A PCR NEGATIVE (Negative); Influenza B PCR NEGATIVE (Negative); Resp Syncy Virus RNA Qual PCR NEGATIVE (Negative); SARS COV2 PCR INHOUSE NEGATIVE (Negative)
[2022-01-24] MEDS: Insulin Regular, Human 100 UNIT/ML 3 ML VIAL IVPUSH ×2 (17:53→22:53)
[2022-01-24] MEDS: 0.9 % Sodium Chloride 1,000 ML 999 ML IV (17:55)
[2022-01-24 17:57] VITALS: BP 141/79; PULSE 75; RESP 18; O2SAT 94
--- NOTE | 2022-01-24 18:33 | P.HPHOSP_ITS ---
History of Present Illness Date of Service: 01/24/22 Attending physician on admission: Ace Cuevas Chief Complaint: sob 50-year-old female with a past medical history of hypertension, hyperlipidemia, diabetes, asthma, history of acute respiratory failure secondary to asthma exacerbation requiring intubation, complicated by cardiac arrest x2, subsequently had tracheostomy, has trach collar; history of necrotizing pancreatitis status post surgery; kidney stones-recently had stent removed by Dr. Agosto; history of ESBL UTI; anxiety, depression, bipolar disorder, takotsubo cardiomyopathy, and history of PE anticoagulated with Eliquis presented to the hospital today with a chief complaint of difficulty breathing ongoing for one month. Has been seen by urgent care and PCP and given prednisone burst followed by 9 day prednisone taper without improvement of symptoms. Feels shortness of breath, cough worsening. Now with severe pleuritic back pain pain. On arrival, patient tachycardic to 109, tachypneic to 24. She is afebrile, no hypotension, no hypoxia. CXR is negative for any acute infiltrates or fluid overload. Tracheostomy tube remains in place unchanged. No leukocytosis. Stable normocytic anemia with H/H 11.1/35.3%. Renal function baseline. Sodium 134, potassium 5.5, chloride 95, CO2 27, glucose 473. AG 18. Given 5 units regular insulin. Negative for influenza a, RSV, and COVID-19. Of note, per respiratory therapy, patient has been noncompliant with suctioning and humidification of the trach at home and as a result, sectioning her trach has not been possible as suction catheter has not been able to pass through. She has been placed on cool aerosol on RA to help loosen the occlusion. Also, given duoneb, 125mg methylprednisolone, 0.5 mg hydromorphone, and 2 g magnesium. Review of Systems Review of Systems: General: No fevers, malaise, unintentional weight loss HEENT: +PND. No sore throat, nasal congestion, rhinorrhea, sinus pain, ear pain Cardiovascular: No chest pain, palpitations, or leg edema Respiratory: + shortness of breath, +wheezing, +cough GI: No abdominal pain, nausea, vomiting, diarrhea, constipation, melena, hematochezia : No dysuria, hematuria, increased urinary frequency, decreased urinary output MSK: +back pain. No myalgia Neuro: No headaches, weakness, paresthesias Skin: No rashes or lesions FOR[facility]LY [facility], [facility]1983 Medical History (Updated 01/24/22 @ 18:57 by OSEI Mancilla) Asthma Bipolar 1 disorder Diabetes History of cardiac arrest Kidney stones Substance abuse Takotsubo cardiomyopathy UTI (urinary tract infection) Wound drainage Family History Mother No pertinent family history Father No pertinent family history Surgical History H/O exploratory laparotomy S/P cholecystectomy S/P ureteral stent placement Social History (Updated 01/24/22 @ 18:58 by OSEI Mancilla) Household Members: Significant Other Household Members Other:: 2 Housing: Apartment Do you presently have visiting nurse or other home services: No Alcohol intake: never Patient Tobacco Use Status: Never used Tobacco Second Hand Smoke Exposure: Yes Use of substances other than those prescribed or required for medical reasons: No Advance Directives: Yes Advance Directives Information Provided: No Advance Directives on File: No service: No Current occupational status: disabled Meds Allergies Allergy/AdvReac Type Severity Reaction Status Date / Time pantoprazole Allergy Unknown Verified 10/27/21 17:23 Active Medications: Current Medications Acetaminophen (Acetaminophen 325 Mg Tablet) 650 mg PO Q6H PRN PRN Reason: Pain, Mild (Pain Scale 1-3) Albuterol Sulfate (Albuterol Sulfate (0.083%) 2.5 Mg/3 Ml Vial.Neb) 2.5 mg INHALE Q2H PRN PRN Reason: Shortness of Breath/Wheezing Albuterol/Ipratropium (Albuterol/Iprat 2.5/0.5mg 3 Ml Ampul.Neb) 3 ml INHALE RQ4H WHILE AWAKE RILEY Dextrose (Dextrose 50 % 25 Gm/50 Ml Syringe) 25 gm IVPUSH Q15M PRN; Protocol PRN Reason: per Hypoglycemia Standing Ord. Glucose (Glucose Gel 15 Gm Gel..Gram.) 15 gm PO Q15M PRN; Protocol PRN Reason: per Hypoglycemia Standing Ord. Hydromorphone HCl (Hydromorphone Hcl 0.5 Mg/0.5 Ml Syringe) 0.25 mg IVPUSH Q4H PRN; Protocol PRN Reason: Pain, Severe, dyspnea Insulin Human Lispro (Insulin Lispro 100 Unit/Ml 3 Ml Vial) [facility]; Protocol Methylprednisolone Sodium Succinate (Methylprednisolone Sod Succ 40 Mg/Ml Vial) 40 mg IVPUSH Q12H RILEY Ondansetron HCl (Ondansetron Hcl 4 Mg/2 Ml Vial) 4 mg IVPUSH Q8H PRN PRN Reason: Nausea and Vomiting Pharmacy Consult (Consult Rx Perform Med Rec) 1 each MISCELLANE ONCE PRN PRN Reason: Consult order Pharmacy Consult (Consult Rx Perform Med Rec) 1 each MISCELLANE ONCE PRN PRN Reason: Consult order Senna (Sennosides 8.6 Mg Tablet) 17.2 mg PO BEDTIME PRN PRN Reason: Constipation Sodium Chloride (0.9 % Sodium Chloride Flush 3 Ml Syringe) 3 ml IVFLUSH [facility] Home Medications Medication Instructions Recorded Confirmed Last Taken Type albuterol sulfate 2.5 mg/3 mL 1 vial inhalation Q4H PRN wheezing 10/28/21 01/24/22 01/24/22 History (0.083 %) solution for nebulization apixaban 5 mg tablet (Eliquis) 1 tab PO BID 10/28/21 01/24/22 01/24/22 History atorvastatin 10 mg tablet 1 tab PO DAILY 10/28/21 01/24/22 01/24/22 History clonazepam 1 mg tablet 1 tab PO BID PRN Anxiety 10/28/21 01/24/22 01/24/22 History escitalopram oxalate 20 mg tablet 1 tab PO BEDTIME 10/28/21 01/24/22 01/24/22 History famotidine 20 mg tablet 1 tab PO BID 10/28/21 01/24/22 01/24/22 History fluticasone propionate 50 1 spray intranasal DAILY 10/28/21 01/24/22 01/24/22 History mcg/actuation nasal spray,suspension glipizide 5 mg tablet 1 tab PO BIDAC 10/28/21 01/24/22 01/24/22 History lurasidone 60 mg tablet (Latuda) 1 tab PO DAILY 10/28/21 01/24/22 01/24/22 History metformin 500 mg tablet,extended 2 tab PO BIDWM 10/28/21 01/24/22 01/24/22 History release 24 hr oxcarbazepine 300 mg tablet 1 tab PO BID 10/28/21 01/24/22 01/24/22 History promethazine 25 mg tablet 1 tab PO DAILY PRN nausea 10/28/21 01/24/22 Unknown History trazodone 100 mg tablet 1 tab PO BEDTIME 10/28/21 01/24/22 01/23/22 History albuterol sulfate 90 mcg/actuation 2 puff inhalation QID PRN 01/24/22 01/24/22 01/24/22 History aerosol inhaler (Ventolin HFA) Shortness Of Breath diphenhydramine HCl 25 mg capsule 25 mg PO Q6H PRN POST NASAL DRIP 01/24/22 01/24/22 01/24/22 History (Benadryl) tizanidine 4 mg tablet 1 tab PO DAILY PRN muscle spasm 01/24/22 01/24/22 Unknown History Physical Exam Vital Signs and Narrative: Vital Signs: Last Vital Signs Temp 98.1 F 01/24/22 14:05 Pulse 75 01/24/22 17:57 Resp 18 01/24/22 17:57 BP 141/79 H 01/24/22 17:57 Pulse Ox 94 01/24/22 17:57 O2 Del Method 01/24/22 17:57 BMI result Body Mass Index 31.8 Constitutional - Awake and Alert, Moderate respiratory distress Eyes - PERRLA, EOMI Cardiovascular - S1S2, RRR, No edema Respiratory - Normal lung expansion, Scattered wheezes bilaterally, increased work of breathing, with respiratory stress and persistent coughing. Tracheostomy in place with near complete occlusion Gastrointestinal - NT / ND; +BS; No rebound or guarding Extremities - no calf tenderness bilaterally, no swelling Musculoskeletal - bilateral paraspinal ttp thoracic spine Skin - Warm/Dry Neurological - Alert & oriented x3, CN II-XII in tact, 5/5 strength BUE and BLE Psychological - Appropriate affect Results Labs CBC and Chem 7: 01/24/22 15:29 01/24/22 15:29 Labs: Laboratory Results - last 24 hr 01/24/22 01/24/22 01/24/22 15:29 15:29 15:29 MCV 88.0 MCH 27.7 MCHC 31.4 RDW 13.8 Plt Count 333 MPV 9.6 Absolute Nucleated RBC 0.000 Nucleated RBC % (auto) 0.0 PT INR Anion Gap 18 Estim Creat Clear Calc 55.4 Estimated GFR 47 Random Glucose 473 H* Calcium 9.2 Total Bilirubin Direct Bilirubin AST ALT Alkaline Phosphatase Troponin I High Sens < 3.5 B-Natriuretic Peptide Total Protein Albumin Influenza Type A (PCR) Influenza Type B (PCR) RSV RNA Qual (PCR) SARS-CoV-2 RNA (RT-PCR) 01/24/22 01/24/22 01/24/22 15:29 15:29 15:29 MCV MCH MCHC RDW Plt Count MPV Absolute Nucleated RBC Nucleated RBC % (auto) PT 11.9 INR 1.0 Anion Gap Estim Creat Clear Calc Estimated GFR Random Glucose Calcium Total Bilirubin 0.2 Direct Bilirubin < 0.2 AST 19 D ALT 31 Alkaline Phosphatase 232 H D Troponin I High Sens B-Natriuretic Peptide 66 Total Protein 7.1 Albumin 4.0 Influenza Type A (PCR) Influenza Type B (PCR) RSV RNA Qual (PCR) SARS-CoV-2 RNA (RT-PCR) 01/24/22 15:52 MCV MCH MCHC RDW Plt Count MPV Absolute Nucleated RBC Nucleated RBC % (auto) PT INR Anion Gap Estim Creat Clear Calc Estimated GFR Random Glucose Calcium Total Bilirubin Direct Bilirubin AST ALT Alkaline Phosphatase Troponin I High Sens B-Natriuretic Peptide Total Protein Albumin Influenza Type A (PCR) NEGATIVE Influenza Type B (PCR) NEGATIVE RSV RNA Qual (PCR) NEGATIVE SARS-CoV-2 RNA (RT-PCR) NEGATIVE Imaging Radiologist's Impressions: Impressions Chest X-Ray 01/24/22 14:20 IMPRESSION: 1. No radiographic evidence of acute infiltrates or failure. 2. Tracheostomy tube remain in place unchanged. 3. Elevation right hemidiaphragm unchanged. Assessment and Plan (1) Asthma with exacerbation: Status: Acute (2) Hyperglycemia: Status: Acute Plan 50-year-old female with a past medical history of hypertension, hyperlipidemia, diabetes, asthma, history of acute respiratory failure secondary to asthma exacerbation requiring intubation, complicated by cardiac arrest x2, subsequently had tracheostomy, has trach collar; history of necrotizing pancreatitis status post surgery; kidney stones-recently had stent removed by Dr. Agosto; history of ESBL UTI; anxiety, depression, bipolar disorder, takotsubo cardiomyopathy, and history of PE anticoagulated with Eliquis admitted for acute asthma exacerbation with tracheostomy blockage. #Acute asthma exacerbation -CXR negative for infiltrates -negative for COVID-19, influenza, and RSV. Full respiratory panel pending -no hypoxia -IV solumedrol 40mg IV BID. Failed PO prednisone burst and 9 day taper -DuoNebs q.4h while awake -albuterol neb q.2h p.r.n. -Tessalon Perles and guaifenesin p.r.n. for cough -Dilaudid p.r.n. for dyspnea and severe pleuritic back pain -respiratory to follow for tracheostomy management. See below -admit to telemetry # tracheostomy in place -near total occlusion of tracheostomy due to patient noncompliance with hu midification and suctioning -nursing staff and respiratory staff unable to clear occlusion with suctioning as the catheter could not be passed -continue cool aerosol on room air per respiratory -respiratory therapy to follow. May need tracheostomy replacement -no hypoxia # hyperkalemia -K 5.5. Renal function normal -possibly hemolyzed -give dose of Lokelma and continue albuterol -follow BMP # axs-nlvatyg-gytsgfcew type 2 diabetes with hyperglycemia -hyperglycemia likely secondary to recent steroid use -hold home p.o. meds -POC glucose -diabetic diet -5mg humalog QID and Humalog and sliding scale # HLD -continue atorvastatin # mood disorder -continue home med DVT prophylaxis-on Eliquis Full code Patient requires inpatient stay of at least 2 midnights due to acute asthma exacerbation with near occlusion of tracheostomy in place with inability to suction exacerbating dyspnea requiring cool aerosol and possible tracheostomy replacement as well as IV steroids and nebulizer treatments to prevent further pulmonary decompensation. Quality Stroke Does the patient have a stroke diagnosis?: No VTE Prior VTE?: No VTE Risk Level:: Medical - moderate - high VTE Device Contraindication: Treatment Not Indicated VTE Drug Contraindication: N/A - Med Ordered
--- NOTE | 2022-01-24 18:33 | PHA.MEDREC ---
Pharmacy Consult ? Medication Reconciliation Pharmacy has completed the medication reconciliation. sPOKE WITH PATIENT IN THE ED
[2022-01-24] MEDS: methylPREDNISolone Sod Succ 40 MG/ML VIAL IVPUSH (19:59)
[2022-01-24] MEDS: HYDROmorphone HCl 0.5 MG/0.5 ML SYRINGE 0.25 MG IVPUSH (19:59)
[2022-01-24 20:01] LABS: Glucose, Whole Blood 255 mg/dL (60-115)
[2022-01-24 20:18] VITALS: PULSE 83; RESP 18; O2SAT 95
--- NOTE | 2022-01-24 20:27 | PC.NURSE ---
O2 sat 89%. Pt repositioned and started on 3L o2 via nc. current o2 sat 98%. aware.
[2022-01-24 21:40] LABS: Glucose, Whole Blood 410 mg/dL (60-115)
--- NOTE | 2022-01-24 21:57 | PC.NURSE ---
Dr. Lira aware pts poc 410. New orders to be prescribed per Dr. Lira.
[2022-01-24] MEDS: Insulin Glargine,Hum.rec.anlog 100 UNIT/ML 10 ML VIAL 10 UNIT SUBCUT (22:53)
[2022-01-24] MEDS: OXcarbazepine 300 MG TABLET PO (22:56)
[2022-01-24] MEDS: traZODone HCL 100 MG TABLET PO (22:56)
[2022-01-24] MEDS: Apixaban 5 MG TABLET PO (22:57)
[2022-01-24] MEDS: Escitalopram Oxalate 20 MG TABLET PO (22:57)
[2022-01-24] MEDS: Famotidine 20 MG TABLET PO (22:57)
[2022-01-24 23:22] VITALS: BP 133/78; PULSE 78; RESP 17; TEMP 36.3; O2SAT 94
[2022-01-25 00:12] LABS: Glucose, Whole Blood 405 mg/dL (60-115)
[2022-01-25] MEDS: 0.9 % Sodium Chloride Flush 3 ML SYRINGE IVFLUSH ×2 (00:53→08:08)
[2022-01-25 02:31] VITALS: BP 121/76; PULSE 65; RESP 10; TEMP 36.3; O2SAT 96
[2022-01-25 02:34] LABS: Glucose, Whole Blood 389 mg/dL (60-115)
[2022-01-25] MEDS: Insulin Regular, Human 100 UNIT/ML 3 ML VIAL IVPUSH ×2 (02:50→06:50)
[2022-01-25] MEDS: HYDROmorphone HCl 0.5 MG/0.5 ML SYRINGE 0.25 MG IVPUSH ×3 (04:43→12:45)
[2022-01-25 06:33] LABS: Anion Gap 21 (12-20); Blood Urea Nitrogen 25 mg/dL (9-16); Carbon Dioxide 21 mmol/L (22-29); Chloride 97 mmol/L (96-108); Creatinine Clr Calc Pharmacy 62.2; Estimated Glomerular Filt Rate 54; Glucose Random 350 mg/dL (60-115); Potassium 5.3 mmol/L (3.3-5.1); Sodium 134 mmol/L (135-145)
--- NOTE | 2022-01-25 06:36 | PC.NURSE ---
Critical lab result Glucose [address] Lira via tiger text.
[2022-01-25] MEDS: methylPREDNISolone Sod Succ 40 MG/ML VIAL IVPUSH (06:48)
[2022-01-25 07:28] VITALS: BP 105/56; PULSE 73; RESP 13; O2SAT 94
[2022-01-25 07:29] LABS: Glucose, Whole Blood 288 mg/dL (60-115)
[2022-01-25] MEDS: Famotidine 20 MG TABLET PO (08:06)
[2022-01-25] MEDS: Insulin Lispro 100 UNIT/ML 3 ML VIAL SUBCUT ×3 (08:07→11:45)
[2022-01-25] MEDS: Apixaban 5 MG TABLET PO (08:07)
[2022-01-25] MEDS: OXcarbazepine 300 MG TABLET PO (08:07)
[2022-01-25 08:15] VITALS: PULSE 70; RESP 11; O2SAT 97
[2022-01-25] MEDS: Albuterol/Iprat 2.5/0.5MG 3 ML AMPUL.NEB INHALE ×2 (08:15→11:37)
--- NOTE | 2022-01-25 08:16 | PC.NURSE ---
pt. alert and oriented. LS expiratory whizzing bilaterally. O2 sat 94 on RA. humidifier running to loosen up secretions. respiratory at bedside.
[2022-01-25] MEDS: Insulin Glargine,Hum.rec.anlog 100 UNIT/ML 10 ML VIAL 10 UNIT SUBCUT (08:40)
--- NOTE | 2022-01-25 09:20 | PC.NURSE ---
Trach care provided by RT, pt able to be suctioned, inline suction tubing attached. Humidified [address] Denies SOb and no resp distress noted. Skin color pwd. NSR on tele
[2022-01-25 09:30] VITALS: BP 147/71; PULSE 71; RESP 22; TEMP 36.6; O2SAT 98
[2022-01-25 09:37] VITALS: BMI 31.0
--- NOTE | 2022-01-25 10:16 | P.CDIC_ITS ---
CDI Concurrent Query Documentation Clarification: PHYSICIAN'S DOCUMENTATION REQUEST Date of Query: 01/25/22 1016 Patient Name: Anna Marie Black Admit Date: 01/24/22 Dear Doctor, Please review the following and provide your response in the progress notes. Clinical Indicators: Specifics: Risk Factors/Clinical Indicators/Treatments H&P 01/24 - Assessment/plan - Acute asthma exacerbation IV Solumedrol, Duonebs. Based on the above, please clarify in the Progress Notes further specificity regarding the type and acuity of the asthma: Type: * Mild intermittent - less than 2x/week * Mild persistent - more than 2x/week but not daily * Moderate persistent - daily and may restrict physical activity * Severe persistent - throughout the day with frequent attacks, limiting activities * Exercise induced * Other ? please specify * Unable to determine Use of terms such as suspected, likely, concern for, or probable (associated with a specific diagnosis that is being evaluated, monitored, or treated as if it exists) are acceptable and can be coded in the inpatient setting, when documented at the time of discharge. Thank you, Carol Izaguirre [facility], [facility] Extension: [phone] Please use your independent medical judgment in providing your response. THIS QUERY IS PART OF THE PERMANENT MEDICAL RECORD Provider Response: Other Other Diagnosis: Acute asthma exacerbation- unable to determine severity
[2022-01-25 11:18] VITALS: BP 141/64; PULSE 68; RESP 12; TEMP 36.7; O2SAT 95
--- NOTE | 2022-01-25 11:20 | P.CONPL_ITS ---
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 On ER evaluation patient noted to have almost complete tracheostomy occlusion with caked in secretions as patient was not compliant with tracheostomy humidification and suction, initial attempts to clear up tracheostomy on successful on patient admitted to the inpatient service. She was placed on humidified oxygen with frequent tracheostomy cleaning and is now able to be suctioned normally. Her respiratory status has also return to baseline. Patient states that she has a follow-up at tracheostomy clinic for tracheostomy exchange scheduled on 01/26/2022. Review of Systems Constitutional: Constitutional: Denies daytime sleepiness, Denies excessive sweating, Denies fatigue, Denies fever(s), Denies lethargy, Denies malaise, Denies night sweats, Denies snoring and Denies weight loss Eyes: Eyes: Denies blurry vision and Denies itchy eyes ENT: Denies nasal congestion, Denies post nasal drip, Denies sinus pain, Denies sinus pressure and Denies other ( Thrush) Cardiovascular: Cardiovascular: Denies chest pain, Denies pedal edema, Denies dyspnea, Denies orthopnea and Denies paroxysmal nocturnal dyspnea Respiratory: Respiratory: Denies cough, Denies hemoptysis, Denies excessive phlegm production, Denies dyspnea, Denies snoring and Denies wheezing Gastrointestinal: Gastrointestinal: Denies abdominal pain and Denies heartburn Musculoskeletal: Musculoskeletal: Denies myalgias, Denies arthralgias and Denies joint swelling Integumentary/Breasts: Skin/Breast: Denies rash Neurologic: Denies memory loss and Denies seizure-like activity Psychiatric: Psychiatric: Denies abnormal sleep pattern, Denies anxiety and Denies memory loss Endocrine: Endocrine: Denies excessive sweating, Denies fatigue and Denies heat intolerance Hematologic/Lymphatic: Hematologic/Lymphatic: Denies easy bruising Allergic/Immunologic: Allergic/Immunologic: Denies itchy eyes, Denies seasonal rhinorrhea and Denies wheezing PMFSH Past Medical History Medical History (Updated 01/25/22 @ 11:25 by Tucker Rodríguez MD) Asthma Bipolar 1 disorder Diabetes History of cardiac arrest Kidney stones Substance abuse Takotsubo cardiomyopathy UTI (urinary tract infection) Wound drainage Family History Family History Mother No pertinent family history Father No pertinent family history Surgical History Surgical History H/O exploratory laparotomy S/P cholecystectomy S/P ureteral stent placement Social History Social History (Updated 01/24/22 @ 18:58 by OSEI Mancilla) Household Members: Spouse Household Members Other:: 1 Housing: Apartment Do you presently have visiting nurse or other home services: No Alcohol intake: never Patient Tobacco Use Status: Never used Tobacco Second Hand Smoke Exposure: Yes Advance Directives Date on File: 01/25/22 service: No Current occupational status: disabled Meds Allergies Allergy/AdvReac Type Severity Reaction Status Date / Time pantoprazole Allergy Unknown Verified 10/27/21 17:23 Active Medications: Current Medications Acetaminophen (Acetaminophen 325 Mg Tablet) 650 mg PO Q6H PRN PRN Reason: Pain, Mild (Pain Scale 1-3) Albuterol Sulfate (Albuterol Sulfate (0.083%) 2.5 Mg/3 Ml Vial.Neb) 2.5 mg INHALE Q2H PRN PRN Reason: Shortness of Breath/Wheezing Albuterol Sulfate (Albuterol Sulfate (0.083%) 2.5 Mg/3 Ml Vial.Neb) 2.5 mg INHALE RQ4H PRN PRN Reason: wheezing Albuterol/Ipratropium (Albuterol/Iprat 2.5/0.5mg 3 Ml Ampul.Neb) 3 ml INHALE RQ4H WHILE AWAKE [facility] Last Admin: 01/25/22 08:15 Dose: 3 ml Apixaban (Apixaban 5 Mg Tablet) 5 mg PO BID [place] Last Admin: 01/25/22 08:07 Dose: 5 mg Atorvastatin Calcium (Atorvastatin Calcium 10 Mg Tablet) 10 mg PO DAILY@BEDTIME [facility] Last Admin: 01/25/22 10:00 Dose: Not Given Benzonatate (Benzonatate 100 Mg Capsule) 100 mg PO TID PRN PRN Reason: Cough Clonazepam (Clonazepam 1 Mg Tablet) 1 mg PO BID PRN PRN Reason: Anxiety Dextrose (Dextrose 50 % 25 Gm/50 Ml Syringe) 25 gm IVPUSH Q15M PRN; Protocol PRN Reason: per Hypoglycemia Standing Ord. Diphenhydramine HCl (Diphenhydramine Hcl 25 Mg Capsule) 25 mg PO Q6H PRN PRN Reason: POST NASAL DRIP Escitalopram Oxalate (Escitalopram Oxalate 20 Mg Tablet) 20 mg PO BEDTIME [facility] Last Admin: 01/24/22 22:57 Dose: 20 mg Famotidine (Famotidine 20 Mg Tablet) 20 mg PO BID [facility] Last Admin: 01/25/22 08:06 Dose: 20 mg Fluticasone Propionate (Fluticasone Propionate Nasal 16 Gm [place]) 1 spray NOSTRIL-B DAILY [facility] Last Admin: 01/25/22 11:03 Dose: Not Given Glucose (Glucose Gel 15 Gm Gel..Gram.) 15 gm PO Q15M PRN; Protocol PRN Reason: per Hypoglycemia Standing Ord. Guaifenesin (Guaifenesin 200 Mg/10 Ml 10 Ml Liquid) 10 ml PO Q6H PRN PRN Reason: Cough Hydromorphone HCl (Hydromorphone Hcl 0.5 Mg/0.5 Ml Syringe) 0.25 mg IVPUSH Q4H PRN; Protocol PRN Reason: Pain, Severe, dyspnea Last Admin: 01/25/22 08:45 Dose: 0.25 mg Insulin Glargine (Insulin Glargine,Hum.Rec.Anlog 100 Unit/Ml 10 Ml Vial) 10 unit SUBCUT DAILY [facility] Insulin Human Lispro (Insulin Lispro 100 Unit/Ml 3 Ml Vial) 0 unit SUBCUT QIDACHS [facility]; Protocol Last Admin: 01/25/22 08:07 Dose: 6 unit Insulin Human Lispro (Insulin Lispro 100 Unit/Ml 3 Ml Vial) 5 unit SUBCUT QIDACHS [facility] Last Admin: 01/25/22 08:09 Dose: Not Given Lurasidone HCl (Lurasidone Hcl 20 Mg Tablet) 20 mg PO DAILY [facility] Lurasidone HCl (Lurasidone Hcl 40 Mg Tablet) 40 mg PO DAILY [facility] Methylprednisolone Sodium Succinate (Methylprednisolone Sod Succ 40 Mg/Ml Vial) 40 mg IVPUSH Q12H [facility] Last Admin: 01/25/22 06:48 Dose: 40 mg Ondansetron HCl (Ondansetron Hcl 4 Mg/2 Ml Vial) 4 mg IVPUSH Q8H PRN PRN Reason: Nausea and Vomiting Oxcarbazepine (Oxcarbazepine 300 Mg Tablet) 300 mg PO BID [facility] Last Admin: 01/25/22 08:07 Dose: 300 mg Pharmacy Consult (Consult Rx Perform Med Rec) 1 each MISCELLANE ONCE PRN PRN Reason: Consult order Pharmacy Consult (Consult Rx Perform Med Rec) 1 each MISCELLANE ONCE PRN PRN Reason: Consult order Promethazine HCl (Promethazine Hcl 25 Mg Tablet) 25 mg PO DAILY PRN PRN Reason: nausea Senna (Sennosides 8.6 Mg Tablet) 17.2 mg PO BEDTIME PRN PRN Reason: Constipation Sodium Chloride (0.9 % Sodium Chloride Flush 3 Ml Syringe) 3 ml IVFLUSH QSHIFT [facility] Last Admin: 01/25/22 08:08 Dose: 3 ml Tizanidine HCl (Tizanidine Hcl 4 Mg Tablet) 4 mg PO DAILY PRN PRN Reason: muscle spasm Trazodone HCl (Trazodone Hcl 100 Mg Tablet) 100 mg PO BEDTIME [facility] Last Admin: 01/24/22 22:56 Dose: 100 mg Home Medications Medication Instructions Recorded Confirmed Last Taken Type albuterol sulfate 2.5 mg/3 mL 1 vial inhalation Q4H PRN wheezing 10/28/21 01/24/22 01/24/22 History (0.083 %) solution for nebulization apixaban 5 mg tablet (Eliquis) 1 tab PO BID 10/28/21 01/24/22 01/24/22 History atorvastatin 10 mg tablet 1 tab PO DAILY 10/28/21 01/24/22 01/24/22 History clonazepam 1 mg tablet 1 tab PO BID PRN Anxiety 10/28/21 01/24/22 01/24/22 History escitalopram oxalate 20 mg tablet 1 tab PO BEDTIME 10/28/21 01/24/22 01/24/22 History famotidine 20 mg tablet 1 tab PO BID 10/28/21 01/24/22 01/24/22 History fluticasone propionate 50 1 spray intranasal DAILY 10/28/21 01/24/22 01/24/22 History mcg/actuation nasal spray,suspension glipizide 5 mg tablet 1 tab PO BIDAC 10/28/21 01/24/22 01/24/22 History lurasidone 60 mg tablet (Latuda) 1 tab PO DAILY 10/28/21 01/24/22 01/24/22 History metformin 500 mg tablet,extended 2 tab PO BIDWM 10/28/21 01/24/22 01/24/22 History release 24 hr oxcarbazepine 300 mg tablet 1 tab PO BID 10/28/21 01/24/22 01/24/22 History promethazine 25 mg tablet 1 tab PO DAILY PRN nausea 10/28/21 01/24/22 Unknown H istory trazodone 100 mg tablet 1 tab PO BEDTIME 10/28/21 01/24/22 01/23/22 History albuterol sulfate 90 mcg/actuation 2 puff inhalation QID PRN 01/24/22 01/24/22 01/24/22 History aerosol inhaler (Ventolin HFA) Shortness Of Breath diphenhydramine HCl 25 mg capsule 25 mg PO Q6H PRN POST NASAL DRIP 01/24/22 01/24/22 01/24/22 History (Benadryl) tizanidine 4 mg tablet 1 tab PO DAILY PRN muscle spasm 01/24/22 01/24/22 Unknown History Physical Exam Vital Signs: Vital Signs: Last Vital Signs Temp 97.9 F 01/25/22 09:30 Pulse 71 01/25/22 09:30 Resp 22 H 01/25/22 09:30 BP 147/71 H 01/25/22 09:30 Pulse Ox 98 01/25/22 09:30 O2 Del Method 01/25/22 09:30 O2 Flow Rate 8 01/25/22 09:30 BMI result Body Mass Index 31.0 Const: General: no acute distress and alert Nutritional Appearance: not obese Orientation/consciousness: Other orientation findings ( oriented) HEENT: Head: Yes atraumatic Mouth: no other ( thrush) Throat: No postnasal drainage Eyes: General: appearance normal, both eyes and all related structures Sclerae: sclerae normal EOM: EOMs intact bilaterally Neck: Neck: Yes supple and Yes other (Bivona 9 Tracheostomy on tracheal collar) Lymphatic: no lymphadenopathy noted Resp: Effort & Inspection: normal respiratory effort and no use of accessory muscles Auscultation: clear to auscultation bilaterally Cardio: Rate: regular rate Rhythm: regular rhythm Heart sounds: no gallops, no murmurs and no rubs GI: Palpation (GI): Soft to palpation and Other GI palpation findings present ( nontender) Skin: General skin exam: other ( warm) Rashes: no rashes Extrem: General: No clubbing, No cyanosis and No edema Results Laboratory Findings CBC and BMP: 01/24/22 15:29 01/25/22 05:57 ABG, PT/INR, D-dimer: PT/INR, D-dimer PT 11.9 SEC (10.0-13.1) 01/24/22 15:29 INR 1.0 (0.9-1.1) 01/24/22 15:29 Abnormal lab findings: Abnormal Labs 01/24/22 01/24/22 01/24/22 15:29 15:29 15:29 RBC 4.01 L Hgb 11.1 L Hct 35.3 L Sodium 134 L Potassium 5.5 H Chloride 95 L Carbon Dioxide Anion Gap BUN 22 H POC Glucose Random Glucose 473 H* Alkaline Phosphatase 232 H D 01/24/22 01/24/22 01/25/22 19:53 21:36 00:08 RBC Hgb Hct Sodium Potassium Chloride Carbon Dioxide Anion Gap BUN POC Glucose 255 H 410 H* 405 H* Random Glucose Alkaline Phosphatase 01/25/22 01/25/22 01/25/22 02:30 05:57 07:24 RBC Hgb Hct Sodium 134 L Potassium 5.3 H Chloride Carbon Dioxide 21 L Anion Gap 21 H BUN 25 H D POC Glucose 389 H* 288 H Random Glucose 350 H* Alkaline Phosphatase Assessment and Plan (1) Respiratory distress: Status: Acute Plan Impression: 51-year-old lady admitted with respiratory distress secondary to plugging of tracheostomy with secretions, now resolved after application of humidification and suctioning with patient at essentially baseline of her respiratory status. She also has tracheostomy exchange scheduled for 01/26/2022 at [facility] tracheostomy clinic. There are no indications for bronchoscopic evaluation at this time. Recommendations: Continue with routine tracheostomy care including humidification and suctioning. Tracheostomy exchange was offered to the patient, however she wants to follow-up with tracheostomy clinic on 01/26/2022. Procedures Date of Service Date of Service: 01/25/22
[2022-01-25 11:27] LABS: Glucose, Whole Blood 296 mg/dL (60-115)
[2022-01-25 11:41] VITALS: PULSE 84; RESP 18; O2SAT 96
--- NOTE | 2022-01-25 13:41 | P.DS_ITS ---
DS: Providers Provider Date of Service: 01/25/22 Date of admission: 01/24/22 18:06 Date of discharge: 01/25/22 Primary care physician: Nonstaff Physician Admitting clinician: Danae Humphrey Attending physician on admission: Ace Cuevas Consults: 01/25/22 09:19 Consult to Pulmonology Routine Consulting Provider: Tucker Rodríguez Reason for consultation: trach occlusion, ?need for bronchoscopy Attending physician on discharge: Hank Broussard Discharging clinician: Danae Humphrey DS: Diagnosis Discharge Diagnosis (1) Respiratory distress: Status: Acute (2) Asthma with exacerbation: Status: Acute DS: Summary Hospital Course Hospital Course: HPI on admission by Marin Humphrey PA-C 01/24/2022: 50-year-old female with a past medical history of hypertension, hyperlipidemia, diabetes, asthma, history of acute respiratory failure secondary to asthma exacerbation requiring intubation, complicated by cardiac arrest x2, subsequently had tracheostomy, has trach collar; history of necrotizing pancreatitis status post surgery; kidney stones-recently had stent removed by Dr. Agosto; history of ESBL UTI; anxiety, depression, bipolar disorder, takotsubo cardiomyopathy, and history of PE anticoagulated with Eliquis presented to the hospital today with a chief complaint of difficulty breathing ongoing for one month. Has been seen by urgent care and PCP and given prednisone burst followed by 9 day prednisone taper without improvement of symptoms. Feels shortness of breath, cough worsening. Now with severe pleuritic back pain pain.? On arrival, patient tachycardic to 109, tachypneic to 24.? She is afebrile, no hypotension, no hypoxia.? CXR is negative for any acute infiltrates or fluid overload.? Tracheostomy tube remains in place unchanged.? No leukocytosis.? Stable normocytic anemia with H/H 11.1/35.3%.? Renal function baseline.? Sodium 134, potassium 5.5, chloride 95, CO2 27, glucose 473. AG 18. Given 5 units regular insulin.? Negative for influenza a, RSV, and COVID-19.? Of note, per respiratory therapy, patient has been noncompliant with suctioning and humidification of the trach at home and as a result, sectioning her trach has not been possible as suction catheter has not been able to pass through.? She has been placed on cool aerosol on RA to help loosen the occlusion. Also, given duoneb, 125mg methylprednisolone, 0.5 mg hydromorphone, and 2 g magnesium. Hospital Course: Patient admitted overnight for asthma exacerbation with tracheostomy occlusion. Followed closely by RT who loosened tracheostomy occlusion with cool aerosol with successful suctioning of the tracheostomy this morning with significant improvement in respiratory efforts. There is no hypoxia. She was seen and evaluated by pulmonology who does not feel that further admission is necessary and can be followed outpatient by tracheostomy care team, [facility], [place], with whom she has an appointment tomorrow for trach placement. The patient also desires to go home and has improved faster than initially anticipated. She has been treated with IV Solu-Medrol, DuoNebs, hydromorphone for increased work of breathing and is doing well on room air at this time. She will be discharged home with prednisone taper and is advised to schedule follow-up soon with PCP. As a result of her prolonged course of steroids both outpatient and in the hospital, patient has been hyperglycemic and was treated with 10 units of Lantus and Humalog on sliding scale which she is advised to continue outpatient and is given electronic prescription for each. Counseled on hypoglycemic risk. She will follow up closely with PCP and continue oral diabetes medications. Time Spent with Patient Time attestation: Total time spent providing and/or coordinating discharge services: Discharge coordination time: Greater than 30 minutes Quality: Safe Use of Opioids Does Pt have an Active Cancer Diagnosis on the Problem List?: No Quality: Stroke Does the patient have a stroke diagnosis?: No Physical Exam Vital Signs: Vital Signs: Last Vital Signs Temp 98.0 F 01/25/22 11:18 Pulse 84 01/25/22 11:41 Resp 18 01/25/22 11:41 BP 141/64 H 01/25/22 11:18 Pulse Ox 95 01/25/22 11:18 O2 Del Method 01/25/22 11:18 O2 Flow Rate 8 01/25/22 09:30 BMI result Body Mass Index 31.0 DS: Data Data Completed and Pending Completed studies during hospitalization [Text1]: Procedures Dilation of Left Ureter with Intraluminal Device, Via Natural or Artificial Opening Endoscopic (06/11/21) Fluoroscopy of Left Kidney, Ureter and Bladder (06/11/21) Labs on day of discharge: Laboratory Results - last 24 hr 01/24/22 01/24/22 01/24/22 15:29 15:29 15:29 WBC 8.2 RBC 4.01 L Hgb 11.1 L Hct 35.3 L MCV 88.0 MCH 27.7 MCHC 31.4 RDW 13.8 Plt Count 333 MPV 9.6 Absolute Nucleated RBC 0.000 Nucleated RBC % (auto) 0.0 PT INR Sodium 134 L Potassium 5.5 H Chloride 95 L Carbon Dioxide 27 Anion Gap 18 BUN 22 H Creatinine 1.20 Estim Creat Clear Calc 55.4 Estimated GFR 47 POC Glucose Random Glucose 473 H* Calcium 9.2 Magnesium Total Bilirubin Direct Bilirubin AST ALT Alkaline Phosphatase Troponin I High Sens < 3.5 B-Natriuretic Peptide Total Protein Albumin Influenza Type A (PCR) Influenza Type B (PCR) RSV RNA Qual (PCR) SARS-CoV-2 RNA (RT-PCR) 01/24/22 01/24/22 01/24/22 15:29 15:29 15:29 WBC RBC Hgb Hct MCV MCH MCHC RDW Plt Count MPV Absolute Nucleated RBC Nucleated RBC % (auto) PT 11.9 INR 1.0 Sodium Potassium Chloride Carbon Dioxide Anion Gap BUN Creatinine Estim Creat Clear Calc Estimated GFR POC Glucose Random Glucose Calcium Magnesium Total Bilirubin 0.2 Direct Bilirubin < 0.2 AST 19 D ALT 31 Alkaline Phosphatase 232 H D Troponin I High Sens B-Natriuretic Peptide 66 Total Protein 7.1 Albumin 4.0 Influenza Type A (PCR) Influenza Type B (PCR) RSV RNA Qual (PCR) SARS-CoV-2 RNA (RT-PCR) 01/24/22 01/24/22 01/24/22 15:52 19:53 21:36 WBC RBC Hgb Hct MCV MCH MCHC RDW Plt Count MPV Absolute Nucleated RBC Nucleated RBC % (auto) PT INR Sodium Potassium Chloride Carbon Dioxide Anion Gap BUN Creatinine Estim Creat Clear Calc Estimated GFR POC Glucose 255 H 410 H* Random Glucose Calcium Magnesium Total Bilirubin Direct Bilirubin AST ALT Alkaline Phosphatase Troponin I High Sens B-Natriuretic Peptide Total Protein Albumin Influenza Type A (PCR) NEGATIVE Influenza Type B (PCR) NEGATIVE RSV RNA Qual (PCR) NEGATIVE SARS-CoV-2 RNA (RT-PCR) NEGATIVE 01/25/22 01/25/22 01/25/22 00:08 02:30 05:57 WBC RBC Hgb Hct MCV MCH MCHC RDW Plt Count MPV Absolute Nucleated RBC Nucleated RBC % (auto) PT INR Sodium 134 L Potassium 5.3 H Chloride 97 Carbon Dioxide 21 L Anion Gap 21 H BUN 25 H D Creatinine 1.07 Estim Creat Clear Calc 62.2 Estimated GFR 54 POC Glucose 405 H* 389 H* Random Glucose 350 H* Calcium 9.0 Magnesium 2.0 Total Bilirubin Direct Bilirubin AST ALT Alkaline Phosphatase Troponin I High Sens B-Natriuretic Peptide Total Protein Albumin Influenza Type A (PCR) Influenza Type B (PCR) RSV RNA Qual (PCR) SARS-CoV-2 RNA (RT-PCR) 01/25/22 01/25/22 07:24 11:18 WBC RBC Hgb Hct MCV MCH MCHC RDW Plt Count MPV Absolute Nucleated RBC Nucleated RBC % (auto) PT INR Sodium Potassium Chloride Carbon Dioxide Anion Gap BUN Creatinine Estim Creat Clear Calc Estimated GFR POC Glucose 288 H 296 H Random Glucose Calcium Magnesium Total Bilirubin Direct Bilirubin AST ALT Alkaline Phosphatase Troponin I High Sens B-Natriuretic Peptide Total Protein Albumin Influenza Type A (PCR) Influenza Type B (PCR) RSV RNA Qual (PCR) SARS-CoV-2 RNA (RT-PCR) Discharge Plan Discharge Anticipated Discharge Date/Time: 01/25/22 13:30 Patient Disposition: Home, Self-Care Discharge Diagnosis: acute asthma exacerbation, tracheostomy occlusion Referrals: Physician,Nonstaff [Physician] - 1 Week Discharge Medications: New prednisone 10 mg tablet See Taper PO DAILY Qty: 30 0RF Taper: Prednisone 40 mg daily for 3 Days and 0 Hour 30 mg daily for 3 Days and 0 Hour 20 mg daily for 3 Days and 0 Hour 10 mg daily for 3 Days and 0 Hour insulin glargine [Lantus Solostar U-100 Insulin] 100 unit/mL (3 mL) insulin pen 10 unit subcut QAM Qty: 15 0RF insulin lispro [Humalog KwikPen Insulin] 100 unit/mL insulin pen 1 sliding scale dose subcut USEASDIRECTD Qty: 15 0RF Rx Instructions: Administer 3 times day before meals after checking glucose: 0 units if <150 2 units if 150-199 4 units if 200-249 6 units if 250-299 8 units if 300-349 10 units if 350-399 Call PCP if >400 Continued tizanidine 4 mg tablet 1 tab PO DAILY PRN (Reason: muscle spasm) albuterol sulfate [Ventolin HFA] 90 mcg/actuation HFA aerosol inhaler 2 puff inhalation QID PRN (Reason: Shortness Of Breath) diphenhydramine HCl [Benadryl] 25 mg Capsule 25 mg PO Q6H PRN (Reason: POST NASAL DRIP) albuterol sulfate 2.5 mg /3 mL (0.083 %) solution for nebulization 1 vial inhalation Q4H PRN (Reason: wheezing) atorvastatin 10 mg tablet 1 tab PO DAILY clonazepam 1 mg tablet 1 tab PO BID PRN (Reason: Anxiety) oxcarbazepine 300 mg tablet 1 tab PO BID famotidine 20 mg tablet 1 tab PO BID trazodone 100 mg tablet 1 tab PO BEDTIME promethazine 25 mg tablet 1 tab PO DAILY PRN (Reason: nausea) fluticasone propionate 50 mcg/actuation spray,suspension 1 spray intranasal DAILY metformin 500 mg tablet extended release 24 hr 2 tab PO BIDWM glipizide 5 mg tablet 1 tab PO BIDAC escitalopram oxalate 20 mg tablet 1 tab PO BEDTIME Eliquis 5 mg tablet 1 tab PO BID Latuda 60 mg tablet 1 tab PO DAILY Discharge Orders: Discharge Order (Routine); Ordered 01/25/22 Ordered By: Danae Humphrey Diet: Advance to usual diet Activity on Discharge: As tolerated Stand Alone Forms: Patient Portal Discharge page Care Plan Goals: Prevent recurrence of respiratory distress Prevent hyperglycemia Health Concerns: Asthma exacerbation Tracheostomy occlusion Hyperglycemia due to steroid use Plan of Treatment: Suction and use humidifier as directed for trach management. Follow up with [facility] [place] for trach care tomorrow as scheduled. Continue maintenance inhalers use albuterol as needed. Complete prednisone taper as directed and follow-up with PCP. The steroid to been taking has resulted in elevated glucose levels. As a result for the time being I think you should continue using Lantus 10 units every morning and Humalog on sliding scale after checking glucose levels with meals. Follow-up with PCP soon. Monitor for hypoglycemic episodes including blurred vision, sweats, agitation, lightheadedness. Assessment: As above Discharge Date/Time: 01/25/22 14:00
--- NOTE | 2022-01-25 14:39 | MHC.CM.PN ---
PT LIVES WITH AND IS INDEPENDENT WITH SELF CARE SHE WILL DC HOME TODAY WITH NO SERVICES TO TRANSPORT
== END 2022-01-25 14:00 | disposition home or self-care (01) | DRG 143 ==
LOC: HO.ED 17:55 → HO.EDOVER 18:15 → HO.S3 01-25 07:27
PROVIDERS: Nurse Practitioner Family; Admitting Provider Physician Assistant; Emergency Provider Emergency Medicine; PCP Internal Medicine; Visit Provider Physician Assistant
DX: J95.03 Malfunction of tracheostomy stoma (principal); J45.901 Unspecified asthma with (acute) exacerbation; Z86.74 Personal history of sudden cardiac arrest; E11.65 Type 2 diabetes mellitus with hyperglycemia; F31.9 Bipolar disorder, unspecified; E87.5 Hyperkalemia; G89.29 Other chronic pain; Z20.822 Contact with and (suspected) exposure to COVID-19; Z79.4 Long term (current) use of insulin; Z91.199 Patient's noncompliance with other medical treatment and regimen due to unspecified reason; Z79.01 Long term (current) use of anticoagulants; Z79.84 Long term (current) use of oral hypoglycemic drugs; Z79.891 Long term (current) use of opiate analgesic; Z79.899 Other long term (current) drug therapy
CPT/HCPCS: 0241U; 36415; 71045; 80048; 80076; 82947; 83735; 83880; 84484; 85027; 85610; 93005; 94640; 99218; 99285; J1170; J2920; J2930; J3475

== ENCOUNTER 2022-03-04 18:57 | Emergency (ER) | payer OTHER, SELFPAY ==
--- NOTE | ~2022-03-04 | XR_ITS ---
EXAMINATION: XR CHEST CLINICAL INFORMATION: Shortness of breath COMPARISON: None TECHNIQUE: 2 views of the chest were obtained. FINDINGS: Small sclerotic focus overlying the left base posteriorly. Chronic possibly related to vertebral body. No new findings. Tracheostomy tube remains in place. No significant abnormality is noted involving the heart, lungs, mediastinum, bony thorax or soft tissues. XR/XR chest 2V IMPRESSION: No active chest disease.
[2022-03-04 19:11] VITALS: BP 143/91; PULSE 95; RESP 22; TEMP 37.3; O2SAT 96; BMI 30.9
[2022-03-04 19:51] LABS: Basophils Percent Auto 0.4 % (0-2); Eosinophils Absolute Auto 0.3 X10*3/uL (0.0-0.4); Hematocrit 34.3 % (37.0-47.0); Hemoglobin 10.9 g/dl (12.0-16.0); Imm Gran Abs Auto 0.02 X10*3/uL (0.00-0.03); Imm Gran Pct Auto 0.3 % (0.0-0.4); Lymphocytes Absolute Auto 1.4 X10*3/uL (1.2-4.9); MANUAL DIFF FLAG NO; Mean Corpuscular HGB Conc 31.8 g/dl (31.0-35.0); Mean Corpuscular Volume 88.2 fL (80.0-98.0); Mean Platelet Volume 9.3 fL (9.4-12.3); Monocytes Absolute Auto 0.5 X10*3/uL (0.1-1.2); Monocytes Percent Auto 7.1 % (2-11); Neutrophils Absolute Auto 5.3 x10*3/uL (2.0-8.3); Neutrophils Percent Auto 69.2 % (45-73); Platelet Count 299 X10*3/uL (160-400); Red Blood Count 3.89 X10*6/uL (4.20-5.50); White Blood Count 7.6 X10*3/uL (4.8-10.8)
[2022-03-04 20:04] LABS: Anion Gap 13 (12-20); Blood Urea Nitrogen 14 mg/dL (9-16); Calcium 9.1 mg/dL (8.4-10.2); Carbon Dioxide 35 mmol/L (22-29); Chloride 96 mmol/L (96-108); Creatinine Clr Calc Pharmacy 53.8; Estimated Glomerular Filt Rate 46; Glucose Random 257 mg/dL (60-115); Potassium 4.8 mmol/L (3.3-5.1); Sodium 139 mmol/L (135-145)
[2022-03-04 20:27] LABS: Influenza A PCR NEGATIVE (Negative); Influenza B PCR NEGATIVE (Negative); Resp Syncy Virus RNA Qual PCR NEGATIVE (Negative); SARS COV2 PCR INHOUSE NEGATIVE (Negative)
[2022-03-04 22:10] VITALS: BP 129/66; PULSE 93; RESP 14; TEMP 37.2; O2SAT 97
--- NOTE | 2022-03-04 22:26 | PC.NURSE ---
Addendum entered by Viri Mcgee 03/04/22 22:28: awaiting to be seen by ed provider Original Note: this rn assumed care of pt at this time. rn spoke with pt at bedside. VSS. SpO2 95% RA. pt resting comfortably on stretcher at this time
--- NOTE | 2022-03-04 23:07 | PC.RT ---
Placed on Cool Aerosol RA 10L pt states current trach in is a 6 Bivona
--- NOTE | 2022-03-04 23:18 | PC.NURSE ---
pt awaiting to be seen by provider. rn discussed case with respiratory. RT to check on pt
[2022-03-04 23:45] VITALS: BP 122/61; PULSE 83; RESP 18; TEMP 37.2; O2SAT 97
[2022-03-04] MEDS: Albuterol Sulfate (0.083%) 2.5 MG/3 ML VIAL.NEB 10 MG INHALE (23:52)
[2022-03-04 23:55] VITALS: PULSE 78; RESP 18; O2SAT 95
[2022-03-05] MEDS: Morphine Sulfate 2 MG/ML CARTRIDGE IVPUSH (00:06)
[2022-03-05] MEDS: Magnesium Sulfate/H2O 2 GM/50 ML PIGGYBACK IV (00:07)
[2022-03-05] MEDS: methylPREDNISolone Sod Succ 125 MG/2 ML VIAL IVPUSH (00:07)
--- NOTE | 2022-03-05 00:42 | MHC.EDTECH ---
Pt requested sugar check. Pt sugar at [address] made aware.
[2022-03-05 00:48] LABS: Glucose, Whole Blood 232 mg/dL (60-115)
[2022-03-05] MEDS: HYDROmorphone HCl 0.5 MG/0.5 ML SYRINGE IVPUSH (01:19)
--- NOTE | 2022-03-05 01:24 | PC.NURSE ---
pt medicated according to mar. this rn assisted pt in ambulating to the bathroom as standby assist.
--- NOTE | 2022-03-05 01:42 | PC.NURSE ---
pt requested sandwich at this time. this rn discussed with dr clay who ok'd pt to have sandwich. pt provided with sandwich. pt had no new requests at this time
--- NOTE | 2022-03-05 01:55 | ED.SOB ---
HPI - SOB/Dyspnea General Chief Complaint: Dyspnea Stated Complaint: sob hx of asthma and a trach Time Seen by Provider: 03/04/22 22:17 Source: patient Mode of arrival: ambulatory Limitations: no limitations History of Present Illness HPI Narrative: Patient comes to the emergency room complaining an asthma exacerbation. Patient states that for about a week she has been having more shortness of breath, coughing wheezing. Patient states that her back hurts from coughing so much. Related Data Home Medications Medication Instructions Recorded Confirmed albuterol sulfate 2.5 mg/3 mL 1 vial inhalation Q4H PRN wheezing 10/28/21 01/24/22 (0.083 %) solution for nebulization apixaban 5 mg tablet (Eliquis) 1 tab PO BID 10/28/21 01/24/22 atorvastatin 10 mg tablet 1 tab PO DAILY 10/28/21 01/24/22 clonazepam 1 mg tablet 1 tab PO BID PRN Anxiety 10/28/21 01/24/22 escitalopram oxalate 20 mg tablet 1 tab PO BEDTIME 10/28/21 01/24/22 famotidine 20 mg tablet 1 tab PO BID 10/28/21 01/24/22 fluticasone propionate 50 1 spray intranasal DAILY 10/28/21 01/24/22 mcg/actuation nasal spray,suspension glipizide 5 mg tablet 1 tab PO BIDAC 10/28/21 01/24/22 lurasidone 60 mg tablet (Latuda) 1 tab PO DAILY 10/28/21 01/24/22 metformin 500 mg tablet,extended 2 tab PO BIDWM 10/28/21 01/24/22 release 24 hr oxcarbazepine 300 mg tablet 1 tab PO BID 10/28/21 01/24/22 promethazine 25 mg tablet 1 tab PO DAILY PRN nausea 10/28/21 01/24/22 trazodone 100 mg tablet 1 tab PO BEDTIME 10/28/21 01/24/22 albuterol sulfate 90 mcg/actuation 2 puff inhalation QID PRN 01/24/22 01/24/22 aerosol inhaler (Ventolin HFA) Shortness Of Breath diphenhydramine HCl 25 mg capsule 25 mg PO Q6H PRN POST NASAL DRIP 01/24/22 01/24/22 (Benadryl) tizanidine 4 mg tablet 1 tab PO DAILY PRN muscle spasm 01/24/22 01/24/22 Previous Rx's Medication Instructions Recorded insulin glargine 100 unit/mL (3 10 unit (0.1 mL) subcut QAM #15 mL 01/25/22 mL) subcutaneous pen (Lantus Solostar U-100 Insulin) insulin lispro 100 unit/mL 1 sliding scale dose subcut 01/25/22 subcutaneous pen (Humalog KwikPen USEASDIRECTD #15 mL (U-100) Insulin) prednisone 10 mg tablet See Taper PO DAILY #30 tabs 01/25/22 prednisone 10 mg tablet 10 mg PO DIRECTED #28 tabs 03/05/22 Allergies Allergy/AdvReac Type Severity Reaction Status Date / Time pantoprazole Allergy Unknown Verified 10/27/21 17:23 Review of Systems Review of Systems: Constitutional : No Weight loss, No Fever, No Chills, No Night Sweats, No Fatigue, No Malaise ENT/Mouth : No Hearing loss, No Ear Pain, No Nasal Congestion, No Sinus Pain, No Hoarseness, No sore throat, No Rhinorrhea, No Swallowing Difficulty Eyes: No Eye Pain, No Swelling, No Redness, No Foreign Body, No Discharge, No Vision Changes Cardiovascular : No Chest Pain, No SOB, No Dyspnea on Exertion, No Orthopnea, No Edema, No Palpitations Respiratory : Complaining cough, wheezing Gastrointestinal : No Nausea, No Vomiting, No Diarrhea, No Constipation, No abdominal Pain, No Hematochezia, No Melena Genitourinary : no irregular bleeding, No Dysuria, No Urinary Frequency, No Hematuria, No Urinary Incontinence, No Urgency, No Flank Pain, No Urinary Flow Changes, No Hesitancy Musculoskeletal : No joint pain, No Myalgias, No Joint Swelling Skin : No Skin Lesions, No rash Neuro : No Weakness, No Numbness, No Paresthesias, No Loss of Consciousness, No Dizziness, No Headache Psych : No Anxiety/Panic, No Depression, No SI/HI/AH/VH, No Social Issues, Heme/Lymph: No Bruising, No Bleeding,No Lymphadenopathy Endocrine : No Polyuria, No Polydipsia, No Temperature Intolerance PMFSH Past Medical History Medical History Asthma Bipolar 1 disorder Diabetes History of cardiac arrest Kidney stones Substance abuse Takotsubo cardiomyopathy UTI (urinary tract infection) Wound drainage Surgical History H/O exploratory laparotomy S/P cholecystectomy S/P ureteral stent placement Family History Family History Mother No pertinent family history Father No pertinent family history Social History Social History (Updated 01/24/22 @ 18:58 by OSEI Mancilla) Household Members: Spouse Household Members Other:: 1 Housing: Apartment Do you presently have visiting nurse or other home services: No Alcohol intake: never Patient Tobacco Use Status: Never used Tobacco Second Hand Smoke Exposure: Yes Advance Directives: Yes Advance Directives Information Provided: Yes Advance Directives on File: No Advance Directives Date on File: 01/25/22 service: No Current occupational status: disabled Physical Exam Vital Signs: Vital Signs: Last Vital Signs Temp 98.9 F 03/04/22 23:45 Pulse 78 03/04/22 23:55 Resp 18 03/04/22 23:55 BP 122/61 03/04/22 23:45 Pulse Ox 97 03/04/22 23:45 O2 Del Method 03/04/22 23:45 O2 Flow Rate 9 03/04/22 23:45 BMI result Body Mass Index 30.9 Const: Other: Appearance: Alert. Oriented X3. No acute distress. Eyes: Pupils equal, round and reactive to light. ENT: Pharynx normal. Neck: Normal inspection. Neck supple. No lymph nodes noted. No crepitus, trach in place CVS: Normal heart rate and rhythm. Pulses normal. Normal S1 and S2 Respiratory: No respiratory distress. Bilateral wheezing Abdomen: Soft and nontender. No rigidity. No distention. Skin: Skin warm and dry. Normal skin color. Normal skin turgor. Extremities: No lower extremity edema. No Lacerations. No Rash Neuro: Oriented X 3. No motor deficit. No sensory deficit. Moving all extremities. No slurred speech. CN 2 through 12 grossly intact Psych: calm, cooperative, normal affect Course Course Course Narrative: Patient received magnesium, Solu-Medrol, breathing treatments through her trach. Patient overall feeling much better. Physical exam prior to discharge patient is moving air fairly well, no wheezing. Patient states that she feels much better and back to baseline. Chest x-ray does not show any acute abnormalities. FINDINGS: Small sclerotic focus overlying the left base posteriorly. Chronic possibly related to vertebral body. No new findings. Tracheostomy tube remains in place. No significant abnormality is noted involving the heart, lungs, mediastinum, bony thorax or soft tissues. XR/XR chest 2V IMPRESSION: No active chest disease. ? Medications Administered Discontinued Medications Generic Name Dose Route Start Last Admin Trade Name Kerwinq PRN Reason Stop Dose Admin Albuterol Sulfate 10 mg 03/04/22 23:35 03/04/22 23:52 Albuterol Sulfate (0.083%) 2.5 Mg/3 Ml Vial.Neb INHALE 03/04/22 23:36 10 mg ONCE ONE Administration Hydromorphone HCl 0.5 mg 03/05/22 00:47 03/05/22 01:19 Hydromorphone Hcl 0.5 Mg/0.5 Ml Syringe IVPUSH 03/05/22 00:48 0.5 mg ONCE ONE Administration Protocol Magnesium Sulfate 2 gm in 50 mls @ 25 mls/hr 03/04/22 23:35 03/05/22 00:07 Magnesium Sulfate/H2o IV 03/05/22 01:34 25 mls/hr ONCE ONE Administration Methylprednisolone Sodium Succinate 125 mg 03/04/22 23:35 03/05/22 00:07 Methylprednisolone Sod Succ 125 Mg/2 Ml Vial IVPUSH 03/04/22 23:36 125 mg ONCE ONE Administration Morphine Sulfate 2 mg 03/04/22 23:35 03/05/22 00:06 Morphine Sulfate 2 Mg/Ml Cartridge IVPUSH 03/04/22 23:36 2 mg ONCE ONE Administration Protocol Medical Decision Making Lab Data Result Diagrams: 03/04/22 19:45 03/04/22 19:45 Labs: Lab Results 03/04/22 03/04/22 03/04/22 Range/Units 19:45 19:45 19:45 WBC 7.6 (4.8-10.8) X10*3/uL RBC 3.89 L (4.20-5.50) X10*6/uL Hgb 10.9 L (12.0-16.0) g/dl Hct 34.3 L (37.0-47.0) % MCV 88.2 (80.0-98.0) fL MCH 28.0 (27.0-33.0) pg MCHC 31.8 (31.0-35.0) g/dl RDW 14.0 (11.0-16.0) % Plt Count 299 (160-400) X10*3/uL MPV 9.3 L (9.4-12.3) fL Immature Gran % (Auto) 0.3 (0.0-0.4) % Neut % (Auto) 69.2 (45-73) % Lymph % (Auto) 19.0 L (20-40) % [place] % (Auto) 7.1 (2-11) % Eos % (Auto) 4.0 (0-4) % Baso % (Auto) 0.4 (0-2) % Lymph # (Auto) 1.4 (1.2-4.9) X10*3/uL [place] # (Auto) 0.5 (0.1-1.2) X10*3/uL Eos # (Auto) 0.3 (0.0-0.4) X10*3/uL Baso # (Auto) 0.0 (0.0-0.2) X10*3/uL Abs Immat Gran (auto) 0.02 (0.00-0.03) X10*3/uL Absolute Neuts (auto) 5.3 (2.0-8.3) x10*3/uL Absolute Nucleated RBC 0.000 (0.0-0.012) X10*3/uL Nucleated RBC % (auto) 0.0 (0.0-0.2) /100WBC Sodium 139 (135-145) mmol/L Potassium 4.8 (3.3-5.1) mmol/L Chloride 96 (96-108) mmol/L Carbon Dioxide 35 H (22-29) mmol/L Anion Gap 13 (12-20) BUN 14 (9-16) mg/dL Creatinine 1.22 (0.5-1.4) mg/dL Estim Creat Clear Calc 53.8 Estimated GFR 46 POC Glucose (60-115) mg/dL Random Glucose 257 H (60-115) mg/dL Calcium 9.1 (8.4-10.2) mg/dL Influenza Type A (PCR) NEGATIVE (Negative) Influenza Type B (PCR) NEGATIVE (Negative) RSV RNA Qual (PCR) NEGATIVE (Negative) SARS-CoV-2 RNA (RT-PCR) NEGATIVE (Negative) 03/05/22 Range/Units 00:41 WBC (4.8-10.8) X10*3/uL RBC (4.20-5.50) X10*6/uL Hgb (12.0-16.0) g/dl Hct (37.0-47.0) % MCV (80.0-98.0) fL MCH (27.0-33.0) pg MCHC (31.0-35.0) g/dl RDW (11.0-16.0) % Plt Count (160-400) X10*3/uL MPV (9.4-12.3) fL Immature Gran % (Auto) (0.0-0.4) % Neut % (Auto) (45-73) % Lymph % (Auto) (20-40) % [place] % (Auto) (2-11) % Eos % (Auto) (0-4) % Baso % (Auto) (0-2) % Lymph # (Auto) (1.2-4.9) X10*3/uL [place] # (Auto) (0.1-1.2) X10*3/uL Eos # (Auto) (0.0-0.4) X10*3/uL Baso # (Auto) (0.0-0.2) X10*3/uL Abs Immat Gran (auto) (0.00-0.03) X10*3/uL Absolute Neuts (auto) (2.0-8.3) x10*3/uL Absolute Nucleated RBC (0.0-0.012) X10*3/uL Nucleated RBC % (auto) (0.0-0.2) /100WBC Sodium (135-145) mmol/L Potassium (3.3-5.1) mmol/L Chloride (96-108) mmol/L Carbon Dioxide (22-29) mmol/L Anion Gap (12-20) BUN (9-16) mg/dL Creatinine (0.5-1.4) mg/dL Estim Creat Clear Calc Estimated GFR POC Glucose 232 H (60-115) mg/dL Random Glucose (60-115) mg/dL Calcium (8.4-10.2) mg/dL Influenza Type A (PCR) (Negative) Influenza Type B (PCR) (Negative) RSV RNA Qual (PCR) (Negative) SARS-CoV-2 RNA (RT-PCR) (Negative) Discharge Plan Discharge Clinical Impression: Asthma with exacerbation Patient Disposition: Home, Self-Care Instructions: Asthma (ED) Additional Instructions: Please follow-up with your primary care physician tomorrow. If you have any worsening or new symptoms, please return to the emergency room or call 911 Prescriptions: New prednisone 10 mg tablet 10 mg PO DIRECTED Qty: 28 0RF Rx Instructions: see taper instructions 40 mg for 4 days, 30mg for 2 days, 20mg for 2 days, 10mg for 2 days No Action tizanidine 4 mg tablet 1 tab PO DAILY PRN (Reason: muscle spasm) albuterol sulfate [Ventolin HFA] 90 mcg/actuation HFA aerosol inhaler 2 puff inhalation QID PRN (Reason: Shortness Of Breath) diphenhydramine HCl [Benadryl] 25 mg Capsule 25 mg PO Q6H PRN (Reason: POST NASAL DRIP) prednisone 10 mg tablet See Taper PO DAILY Qty: 30 0RF Taper: Prednisone 40 mg daily for 3 Days and 0 Hour 30 mg daily for 3 Days and 0 Hour 20 mg daily for 3 Days and 0 Hour 10 mg daily for 3 Days and 0 Hour insulin glargine [Lantus Solostar U-100 Insulin] 100 unit/mL (3 mL) insulin pen 10 unit subcut QAM Qty: 15 0RF insulin lispro [Humalog KwikPen Insulin] 100 unit/mL insulin pen 1 sliding scale dose subcut USEASDIRECTD Qty: 15 0RF Rx Instructions: Administer 3 times day before meals after checking glucose: 0 units if <150 2 units if 150-199 4 units if 200-249 6 units if 250-299 8 units if 300-349 10 units if 350-399 Call PCP if >400 albuterol sulfate 2.5 mg /3 mL (0.083 %) solution for nebulization 1 vial inhalation Q4H PRN (Reason: wheezing) atorvastatin 10 mg tablet 1 tab PO DAILY clonazepam 1 mg tablet 1 tab PO BID PRN (Reason: Anxiety) oxcarbazepine 300 mg tablet 1 tab PO BID famotidine 20 mg tablet 1 tab PO BID trazodone 100 mg tablet 1 tab PO BEDTIME promethazine 25 mg tablet 1 tab PO DAILY PRN (Reason: nausea) fluticasone propionate 50 mcg/actuation spray,suspension 1 spray intranasal DAILY metformin 500 mg tablet extended release 24 hr 2 tab PO BIDWM glipizide 5 mg tablet 1 tab PO BIDAC escitalopram oxalate 20 mg tablet 1 tab PO BEDTIME Eliquis 5 mg tablet 1 tab PO BID Latuda 60 mg tablet 1 tab PO DAILY
== END 2022-03-05 02:17 | disposition home or self-care (01) ==
PROVIDERS: Emergency Provider Emergency Medicine; PCP Internal Medicine
DX: J45.901 Unspecified asthma with (acute) exacerbation (principal); Z20.822 Contact with and (suspected) exposure to COVID-19; E11.9 Type 2 diabetes mellitus without complications; F19.10 Other psychoactive substance abuse, uncomplicated; Z79.4 Long term (current) use of insulin; Z79.01 Long term (current) use of anticoagulants; Z79.02 Long term (current) use of antithrombotics/antiplatelets; Z79.899 Other long term (current) drug therapy; Z87.440 Personal history of urinary (tract) infections; Z93.0 Tracheostomy status
CPT/HCPCS: 0241U; 71046; 80048; 82947; 85025; 94640; 96365; 96366; 96375; 99285; J1170; J2270; J2930; J3475

== ENCOUNTER 2022-03-21 20:36 | Emergency (ER) | payer OTHER, SELFPAY ==
--- NOTE | ~2022-03-21 | XR_ITS ---
EXAMINATION: X-RAY SOFT TISSUES OF THE NECK X-RAY CHEST CLINICAL INFORMATION: Shortness of breath with tracheostomy. COMPARISON: Chest radiograph 03/04/2022. TECHNIQUE: 2 views of the soft tissues of the neck and 2 views of the chest. FINDINGS: Soft tissues of the neck: No significant prevertebral soft tissue thickening. No acute compression deformity or subluxation of the cervical spine with the caveat that the C6 and C7 vertebral bodies are not well seen due to shadowing from the shoulders. Chest radiograph: Stable appearance of the cardiomediastinal silhouette. Unchanged mild asymmetric elevation of the right hemidiaphragm. No focal airspace opacity, pleural effusion or pneumothorax. Thoracic spondylosis. No acute osseous abnormalities. The tracheostomy projects over the mid upper trachea, similar to prior. The air column of the trachea and mainstem bronchi are patent. The trachea is midline. XR/XR soft tissue neck IMPRESSION: 1. Stable positioning of the tracheostomy tube over upper trachea. 2. No acute cardiopulmonary findings. 3. No acute compression deformity or subluxation of the cervical spine. However, the C6 and C7 vertebral bodies are not well seen due to shadowing from the shoulders.
--- NOTE | ~2022-03-21 | XR_ITS ---
EXAMINATION: X-RAY SOFT TISSUES OF THE NECK X-RAY CHEST CLINICAL INFORMATION: Shortness of breath with tracheostomy. COMPARISON: Chest radiograph 03/04/2022. TECHNIQUE: 2 views of the soft tissues of the neck and 2 views of the chest. FINDINGS: Soft tissues of the neck: No significant prevertebral soft tissue thickening. No acute compression deformity or subluxation of the cervical spine with the caveat that the C6 and C7 vertebral bodies are not well seen due to shadowing from the shoulders. Chest radiograph: Stable appearance of the cardiomediastinal silhouette. Unchanged mild asymmetric elevation of the right hemidiaphragm. No focal airspace opacity, pleural effusion or pneumothorax. Thoracic spondylosis. No acute osseous abnormalities. The tracheostomy projects over the mid upper trachea, similar to prior. The air column of the trachea and mainstem bronchi are patent. The trachea is midline. XR/XR chest 2V IMPRESSION: 1. Stable positioning of the tracheostomy tube over upper trachea. 2. No acute cardiopulmonary findings. 3. No acute compression deformity or subluxation of the cervical spine. However, the C6 and C7 vertebral bodies are not well seen due to shadowing from the shoulders.
[2022-03-21 20:38] VITALS: BP 142/77; PULSE 122; RESP 22; TEMP 36.9; O2SAT 94; BMI 32.8
--- NOTE | 2022-03-21 20:39 | ED_ITS ---
HPI - General Adult General Chief complaint: Dyspnea <OSEI Michaels - Last Filed: 03/21/22 20:44> Stated complaint: difficulty breathing, trac issues <OSEI Michaels - Last Filed: 03/21/22 20:44> Time Seen by Provider: 03/21/22 21:33 <OSEI Michaels - Last Filed: 03/21/22 20:44> Source: patient <Baljinder Francisco MD - Last Filed: 03/22/22 00:22> Mode of arrival: ambulatory <Baljinder Francisco MD - Last Filed: 03/22/22 00:22> Limitations: no limitations <Baljinder Francisco MD - Last Filed: 03/22/22 00:22> History of Present Illness HPI narrative: 51-year-old female with a past medical history of hypertension, hyperlipidemia, diabetes, asthma, history of acute respiratory failure secondary to asthma exacerbation requiring intubation, complicated by cardiac arrest x2, subsequently had tracheostomy, has trach collar; history of necrotizing garcia creatitis status post surgery; kidney stones-recently had stent removed by Dr. Agosto; history of ESBL UTI; anxiety, depression, bipolar disorder, takotsubo cardiomyopathy, and history of PE anticoagulated with Eliquis presented to the hospital today with a chief complaint of difficulty breathing and unable to the suction from the tracheostomy tube patient was here in 02/02 with same situation found that she was not compliant to use humidification but now she is saying that she is using it every night <Baljinder Francisco MD - Last Filed: 03/22/22 00:22> Related Data Home medications: Home Medications Medication Instructions Recorded Confirmed albuterol sulfate 2.5 mg/3 mL 1 vial inhalation Q4H PRN wheezing 10/28/21 01/24/22 (0.083 %) solution for nebulization apixaban 5 mg tablet (Eliquis) 1 tab PO BID 10/28/21 01/24/22 atorvastatin 10 mg tablet 1 tab PO DAILY 10/28/21 01/24/22 clonazepam 1 mg tablet 1 tab PO BID PRN Anxiety 10/28/21 01/24/22 escitalopram oxalate 20 mg tablet 1 tab PO BEDTIME 10/28/21 01/24/22 famotidine 20 mg tablet 1 tab PO BID 10/28/21 01/24/22 fluticasone propionate 50 1 spray intranasal DAILY 10/28/21 01/24/22 mcg/actuation nasal spray,suspension glipizide 5 mg tablet 1 tab PO BIDAC 10/28/21 01/24/22 lurasidone 60 mg tablet (Latuda) 1 tab PO DAILY 10/28/21 01/24/22 metformin 500 mg tablet,extended 2 tab PO BIDWM 10/28/21 01/24/22 release 24 hr oxcarbazepine 300 mg tablet 1 tab PO BID 10/28/21 01/24/22 promethazine 25 mg tablet 1 tab PO DAILY PRN nausea 10/28/21 01/24/22 trazodone 100 mg tablet 1 tab PO BEDTIME 10/28/21 01/24/22 albuterol sulfate 90 mcg/actuation 2 puff inhalation QID PRN 01/24/22 01/24/22 aerosol inhaler (Ventolin HFA) Shortness Of Breath diphenhydramine HCl 25 mg capsule 25 mg PO Q6H PRN POST NASAL DRIP 01/24/22 01/24/22 (Benadryl) tizanidine 4 mg tablet 1 tab PO DAILY PRN muscle spasm 01/24/22 01/24/22 Previous Rx's Medication Instructions Recorded insulin glargine 100 unit/mL (3 10 unit (0.1 mL) subcut QAM #15 mL 01/25/22 mL) subcutaneous pen (Lantus Solostar U-100 Insulin) insulin lispro 100 unit/mL 1 sliding scale dose subcut 01/25/22 subcutaneous pen (Humalog KwikPen USEASDIRECTD #15 mL (U-100) Insulin) prednisone 10 mg tablet See Taper PO DAILY #30 tabs 01/25/22 prednisone 10 mg tablet 10 mg PO DIRECTED #28 tabs 03/05/22 <OSEI Michaels - Last Filed: 03/21/22 20:44> Allergies/adverse reactions: Allergies Allergy/AdvReac Type Severity Reaction Status Date / Time pantoprazole Allergy Unknown Verified 03/21/22 20:43 <OSEI Michaels - Last Filed: 03/21/22 20:44> Review of Systems Review of Systems: Yes all other systems are reviewed and are negative <Baljinder Francisco MD - Last Filed: 03/22/22 00:22> [facility] Past Medical History Medical History: Medical History Asthma Bipolar 1 disorder Diabetes History of cardiac arrest Kidney stones Substance abuse Takotsubo cardiomyopathy UTI (urinary tract infection) Wound drainage <OSEI Michaels - Last Filed: 03/21/22 20:44> Surgical History: Surgical History H/O exploratory laparotomy S/P cholecystectomy S/P ureteral stent placement <OSEI Michaels - Last Filed: 03/21/22 20:44> Family History Family History: Family History Mother No pertinent family history Father No pertinent family history <OSEI Michaels - Last Filed: 03/21/22 20:44> Social History Social History: Social History Household Members: Spouse Household Members Other:: 1 Housing: Apartment Do you presently have visiting nurse or other home services: No Alcohol intake: never Patient Tobacco Use Status: Never used Tobacco Smoked in Last 30 Days: No Second Hand Smoke Exposure: Yes Use of substances other than those prescribed or required for medical reasons: No Advance Directives: Yes Advance Directives Information Provided: No Advance Directives on File: No Advance Directives Date on File: 01/25/22 service: No Current occupational status: disabled <OSEI Michaels - Last Filed: 03/21/22 20:44> Physical Exam ED Vital Signs: Vital Signs - 24 hr 03/21/22 20:38 03/21/22 20:57 03/21/22 21:59 Temperature 98.4 F 99.3 F Pulse Rate 122 H 107 H 107 H Respiratory Rate 22 H 18 18 Blood Pressure 142/77 H 109/81 Pulse Oximetry 94 96 Oxygen Delivery Method Room Air Room Air Oxygen Flow Rate 03/22/22 00:15 Temperature 98.0 F Pulse Rate 93 Respiratory Rate 18 Blood Pressure 130/59 L Pulse Oximetry 96 Oxygen Delivery Method Trach Collar Oxygen Flow Rate 7 BMI result Body Mass Index 32.8 <OSEI Michaels - Last Filed: 03/21/22 20:44> Vital Signs - 24 hr 03/21/22 20:38 03/21/22 20:57 03/21/22 21:59 Temperature 98.4 F 99.3 F Pulse Rate 122 H 107 H 107 H Respiratory Rate 22 H 18 18 Blood Pressure 142/77 H 109/81 Pulse Oximetry 94 96 Oxygen Delivery Method Room Air Room Air Oxygen Flow Rate 03/22/22 00:15 Temperature 98.0 F Pulse Rate 93 Respiratory Rate 18 Blood Pressure 130/59 L Pulse Oximetry 96 Oxygen Delivery Method Trach Collar Oxygen Flow Rate 7 BMI result Body Mass Index 32.8 <Baljinder Francisco MD - Last Filed: 03/22/22 00:22> Appearance: Alert. Oriented X3. No acute distress. Eyes: PERRLA, No Nystagmus ENT: Pharynx normal. Oral Mucosa moist Neck: Neck supple. Tracheostomy in place with thick secretions CVS: Normal heart rate and rhythm. Pulses normal. Respiratory: No respiratory distress. Equal air entry bilateral, prolonged expiration Abdomen: Soft and nontender. Bowel sounds are present, no mass palpable, no CVA tenderness Skin: Skin warm and dry. Normal skin color. Normal skin turgor. Extremities: No lower extremity edema. No calf tenderness Neuro: Oriented X 3. No motor deficit. <Baljinder Francisco MD - Last Filed: 03/22/22 00:22> Course Course Course Narrative: RME-20:40PM - 51yoF c PMHx of [place] where she had to be intubation with trach then grew scar tissue so they left the Trach in place per who is presenting to the ED c c/o SOB x weeks worse today. Reports I am so Shortness of breath think I have a mucus plug and my can not pass a catheter down my trach . She has tried breathing treatments and multiple other treatments and she still feels short of breath and like her trachea is plugged. Reports she was seen here on 03/05/2022 for similar complaint and sent home with steroids took as prescribed and no symptomatic relief. Reports she is coughing. Denies any other symptoms related to this. Plan: Therefore at this time chest x-ray, soft tissue neck x-ray, COVID/RSV/flu swab and trach care/suction ordered. Patient will be seen in the ER. <OSEI Michaels - Last Filed: 03/21/22 20:44> Medications Administered Discontinued Medications Generic Name Dose Route Start Last Admin Trade Name Frank PRN Reason Stop Dose Admin Apixaban 5 mg 03/21/22 21:53 03/21/22 22:13 Apixaban 5 Mg Tablet PO 03/21/22 21:54 5 mg ONCE ONE Administration Albuterol Sulfate 2.5 mg/ 0 mg 03/21/22 21:47 03/21/22 21:56 Ipratropium [place] 0.5 mg INHALE 03/21/22 21:48 5.5 each ONCE ONE Administration Hydromorphone HCl 1 mg 03/21/22 21:47 03/21/22 22:13 Hydromorphone Hcl 0.5 Mg/0.5 Ml Syringe IVPUSH 03/21/22 21:48 1 mg ONCE ONE Administration Protocol Sodium Chloride 1,000 mls @ 999 mls/hr 03/21/22 21:47 03/22/22 00:11 Ns IV 03/21/22 22:47 Infused .Q1H1M ONE Infusion Methylprednisolone Sodium Succinate 125 mg 03/21/22 21:47 03/21/22 22:13 Methylprednisolone Sod Succ 125 Mg/2 Ml Vial IVPUSH 03/21/22 21:48 125 mg ONCE ONE Administration <OSEI Michaels - Last Filed: 03/21/22 20:44> Medications Administered Discontinued Medications Generic Name Dose Route Start Last Admin Trade Name Frank PRN Reason Stop Dose Admin Apixaban 5 mg 03/21/22 21:53 03/21/22 22:13 Apixaban 5 Mg Tablet PO 03/21/22 21:54 5 mg ONCE ONE Administration Albuterol Sulfate 2.5 mg/ 0 mg 03/21/22 21:47 03/21/22 21:56 Ipratropium [place] 0.5 mg INHALE 03/21/22 21:48 5.5 each ONCE ONE Administration Hydromorphone HCl 1 mg 03/21/22 21:47 03/21/22 22:13 Hydromorphone Hcl 0.5 Mg/0.5 Ml Syringe IVPUSH 03/21/22 21:48 1 mg ONCE ONE Administration Protocol Sodium Chloride 1,000 mls @ 999 mls/hr 03/21/22 21:47 03/22/22 00:11 Ns IV 03/21/22 22:47 Infused .Q1H1M ONE Infusion Methylprednisolone Sodium Succinate 125 mg 03/21/22 21:47 03/21/22 22:13 Methylprednisolone Sod Succ 125 Mg/2 Ml Vial IVPUSH 03/21/22 21:48 125 mg ONCE ONE Administration <Baljinder Francisco MD - Last Filed: 03/22/22 00:22> Medical Decision Making Medical Decision Making [facility] Narrative: Patient's chest x-ray and labs stable after putting aerosol for some time were able to suction the secretions were removed patient advised to follow with plaster applicator for bronchoscopy to completely clear the secretions <Baljinder Francisco MD - Last Filed: 03/22/22 00:22> Lab Data [facility] Lab Attestation statement: I reviewed the patient's lab results. <Baljinder Francisco MD - Last Filed: 03/22/22 00:22> Result Diagrams: 03/21/22 22:08 03/21/22 22:08 <OSEI Michaels - Last Filed: 03/21/22 20:44> Labs: Lab Results 03/21/22 03/21/22 03/21/22 Range/Units 21:10 22:08 22:08 WBC 7.8 (4.8-10.8) X10*3/uL RBC 4.13 L (4.20-5.50) X10*6/uL Hgb 11.6 L (12.0-16.0) g/dl Hct 36.5 L (37.0-47.0) % MCV 88.4 (80.0-98.0) fL MCH 28.1 (27.0-33.0) pg MCHC 31.8 (31.0-35.0) g/dl RDW 13.3 (11.0-16.0) % Plt Count 310 (160-400) X10*3/uL MPV 9.3 L (9.4-12.3) fL Immature Gran % (Auto) 0.3 (0.0-0.4) % Neut % (Auto) 68.2 (45-73) % Lymph % (Auto) 15.1 L (20-40) % Nolan % (Auto) 9.3 (2-11) % Eos % (Auto) 6.3 H (0-4) % Baso % (Auto) 0.8 (0-2) % Lymph # (Auto) 1.2 (1.2-4.9) X10*3/uL Nolan # (Auto) 0.7 (0.1-1.2) X10*3/uL Eos # (Auto) 0.5 H (0.0-0.4) X10*3/uL Baso # (Auto) 0.1 (0.0-0.2) X10*3/uL Abs Immat Gran (auto) 0.02 (0.00-0.03) X10*3/uL Absolute Neuts (auto) 5.3 (2.0-8.3) x10*3/uL Absolute Nucleated RBC 0.000 (0.0-0.012) X10*3/uL Nucleated RBC % (auto) 0.0 (0.0-0.2) /100WBC Sodium 137 (135-145) mmol/L Potassium 4.7 (3.3-5.1) mmol/L Chloride 96 (96-108) mmol/L Carbon Dioxide 32 H (22-29) mmol/L Anion Gap 14 (12-20) BUN 20 H (9-16) mg/dL Creatinine 1.18 (0.5-1.4) mg/dL Estim Creat Clear Calc 57.2 Estimated GFR 48 Random Glucose 214 H (60-115) mg/dL Calcium 9.3 (8.4-10.2) mg/dL Influenza Type A (PCR) NEGATIVE (Negative) Influenza Type B (PCR) NEGATIVE (Negative) RSV RNA Qual (PCR) NEGATIVE (Negative) SARS-CoV-2 RNA (RT-PCR) NEGATIVE (Negative) <OSEI Michaels - Last Filed: 03/21/22 20:44> Lab Results 03/21/22 03/21/22 03/21/22 Range/Units 21:10 22:08 22:08 WBC 7.8 (4.8-10.8) X10*3/uL RBC 4.13 L (4.20-5.50) X10*6/uL Hgb 11.6 L (12.0-16.0) g/dl Hct 36.5 L (37.0-47.0) % MCV 88.4 (80.0-98.0) fL MCH 28.1 (27.0-33.0) pg MCHC 31.8 (31.0-35.0) g/dl RDW 13.3 (11.0-16.0) % Plt Count 310 (160-400) X10*3/uL MPV 9.3 L (9.4-12.3) fL Immature Gran % (Auto) 0.3 (0.0-0.4) % Neut % (Auto) 68.2 (45-73) % Lymph % (Auto) 15.1 L (20-40) % Nolan % (Auto) 9.3 (2-11) % Eos % (Auto) 6.3 H (0-4) % Baso % (Auto) 0.8 (0-2) % Lymph # (Auto) 1.2 (1.2-4.9) X10*3/uL Nolan # (Auto) 0.7 (0.1-1.2) X10*3/uL Eos # (Auto) 0.5 H (0.0-0.4) X10*3/uL Baso # (Auto) 0.1 (0.0-0.2) X10*3/uL Abs Immat Gran (auto) 0.02 (0.00-0.03) X10*3/uL Absolute Neuts (auto) 5.3 (2.0-8.3) x10*3/uL Absolute Nucleated RBC 0.000 (0.0-0.012) X10*3/uL Nucleated RBC % (auto) 0.0 (0.0-0.2) /100WBC Sodium 137 (135-145) mmol/L Potassium 4.7 (3.3-5.1) mmol/L Chloride 96 (96-108) mmol/L Carbon Dioxide 32 H (22-29) mmol/L Anion Gap 14 (12-20) BUN 20 H (9-16) mg/dL Creatinine 1.18 (0.5-1.4) mg/dL Estim Creat Clear Calc 57.2 Estimated GFR 48 Random Glucose 214 H (60-115) mg/dL Calcium 9.3 (8.4-10.2) mg/dL Influenza Type A (PCR) NEGATIVE (Negative) Influenza Type B (PCR) NEGATIVE (Negative) RSV RNA Qual (PCR) NEGATIVE (Negative) SARS-CoV-2 RNA (RT-PCR) NEGATIVE (Negative) <Baljinder Francisco MD - Last Filed: 03/22/22 00:22> Discharge Plan Discharge Clinical Impression: Tracheostomy care <OSEI Michaels - Last Filed: 03/21/22 20:44> Patient Disposition: Home, Self-Care <OSEI Michaels - Last Filed: 03/21/22 20:44> Instructions: Tracheostomy Care (ED) <OSEI Michaels - Last Filed: 03/21/22 20:44> Additional Instructions: Use humidified aerosol for tracheostomy care as advised Follow-up with plaster applicator <OSEI Michaels - Last Filed: 03/21/22 20:44> Prescriptions: No Action tizanidine 4 mg tablet 1 tab PO DAILY PRN (Reason: muscle spasm) albuterol sulfate [Ventolin HFA] 90 mcg/actuation HFA aerosol inhaler 2 puff inhalation QID PRN (Reason: Shortness Of Breath) diphenhydramine HCl [Benadryl] 25 mg Capsule 25 mg PO Q6H PRN (Reason: POST NASAL DRIP) prednisone 10 mg tablet See Taper PO DAILY Qty: 30 0RF Taper: Prednisone 40 mg daily for 3 Days and 0 Hour 30 mg daily for 3 Days and 0 Hour 20 mg daily for 3 Days and 0 Hour 10 mg daily for 3 Days and 0 Hour insulin glargine [Lantus Solostar U-100 Insulin] 100 unit/mL (3 mL) insulin pen 10 unit subcut QAM Qty: 15 0RF insulin lispro [Humalog KwikPen Insulin] 100 unit/mL insulin pen 1 sliding scale dose subcut USEASDIRECTD Qty: 15 0RF Rx Instructions: Administer 3 times day before meals after checking glucose: 0 units if <150 2 units if 150-199 4 units if 200-249 6 units if 250-299 8 units if 300-349 10 units if 350-399 Call PCP if >400 prednisone 10 mg tablet 10 mg PO DIRECTED Qty: 28 0RF Rx Instructions: see taper instructions 40 mg for 4 days, 30mg for 2 days, 20mg for 2 days, 10mg for 2 days albuterol sulfate 2.5 mg /3 mL (0.083 %) solution for nebulization 1 vial inhalation Q4H PRN (Reason: wheezing) atorvastatin 10 mg tablet 1 tab PO DAILY clonazepam 1 mg tablet 1 tab PO BID PRN (Reason: Anxiety) oxcarbazepine 300 mg tablet 1 tab PO BID famotidine 20 mg tablet 1 tab PO BID trazodone 100 mg tablet 1 tab PO BEDTIME promethazine 25 mg tablet 1 tab PO DAILY PRN (Reason: nausea) fluticasone propionate 50 mcg/actuation spray,suspension 1 spray intranasal DAILY metformin 500 mg tablet extended release 24 hr 2 tab PO BIDWM glipizide 5 mg tablet 1 tab PO BIDAC escitalopram oxalate 20 mg tablet 1 tab PO BEDTIME Eliquis 5 mg tablet 1 tab PO BID Latuda 60 mg tablet 1 tab PO DAILY <OSEI Michaels - Last Filed: 03/21/22 20:44>
[2022-03-21 20:57] VITALS: BP 109/81; PULSE 107; RESP 18; TEMP 37.4; O2SAT 96
[2022-03-21 21:51] LABS: Influenza A PCR NEGATIVE (Negative); Influenza B PCR NEGATIVE (Negative); Resp Syncy Virus RNA Qual PCR NEGATIVE (Negative); SARS COV2 PCR INHOUSE NEGATIVE (Negative)
[2022-03-21 21:59] VITALS: PULSE 107; RESP 18; O2SAT 94
[2022-03-21] MEDS: 0.9 % Sodium Chloride 1,000 ML 999 ML IV (22:09)
[2022-03-21] MEDS: Apixaban 5 MG TABLET PO (22:13)
[2022-03-21] MEDS: HYDROmorphone HCl 0.5 MG/0.5 ML SYRINGE 1 MG IVPUSH (22:13)
[2022-03-21] MEDS: methylPREDNISolone Sod Succ 125 MG/2 ML VIAL IVPUSH (22:13)
[2022-03-21 22:14] LABS: MANUAL DIFF FLAG NO
[2022-03-21 22:15] LABS: Basophils Absolute Auto 0.1 X10*3/uL (0.0-0.2); Basophils Percent Auto 0.8 % (0-2); Eosinophils Absolute Auto 0.5 X10*3/uL (0.0-0.4); Eosinophils Percent Auto 6.3 % (0-4); Hematocrit 36.5 % (37.0-47.0); Hemoglobin 11.6 g/dl (12.0-16.0); Imm Gran Abs Auto 0.02 X10*3/uL (0.00-0.03); Imm Gran Pct Auto 0.3 % (0.0-0.4); Lymphocytes Absolute Auto 1.2 X10*3/uL (1.2-4.9); Lymphocytes Percent Auto 15.1 % (20-40); Mean Corpuscular HGB Conc 31.8 g/dl (31.0-35.0); Mean Corpuscular Hemoglobin 28.1 pg (27.0-33.0); Mean Corpuscular Volume 88.4 fL (80.0-98.0); Mean Platelet Volume 9.3 fL (9.4-12.3); Monocytes Absolute Auto 0.7 X10*3/uL (0.1-1.2); Monocytes Percent Auto 9.3 % (2-11); Neutrophils Absolute Auto 5.3 x10*3/uL (2.0-8.3); Neutrophils Percent Auto 68.2 % (45-73); Platelet Count 310 X10*3/uL (160-400); Red Blood Count 4.13 X10*6/uL (4.20-5.50); Red Cell Distribution Width 13.3 % (11.0-16.0); White Blood Count 7.8 X10*3/uL (4.8-10.8)
[2022-03-21 22:36] LABS: Anion Gap 14 (12-20); Blood Urea Nitrogen 20 mg/dL (9-16); Calcium 9.3 mg/dL (8.4-10.2); Carbon Dioxide 32 mmol/L (22-29); Chloride 96 mmol/L (96-108); Creatinine Clr Calc Pharmacy 57.2; Estimated Glomerular Filt Rate 48; Glucose Random 214 mg/dL (60-115); Potassium 4.7 mmol/L (3.3-5.1); Sodium 137 mmol/L (135-145)
--- NOTE | 2022-03-22 00:11 | PC.NURSE ---
respiratory called to do tracheostomy care found mucous plug still working on removing it. will come back later after more humidification.
[2022-03-22 00:15] VITALS: BP 130/59; PULSE 93; RESP 18; TEMP 36.7; O2SAT 96
[2022-03-22] MEDS: HYDROmorphone HCl 0.5 MG/0.5 ML SYRINGE IVPUSH (00:31)
== END 2022-03-22 01:33 | disposition home or self-care (01) ==
PROVIDERS: Physician Assistant Medical; Emergency Provider Internal Medicine
DX: R06.02 Shortness of breath (principal); M54.2 Cervicalgia; I10 Essential (primary) hypertension; Z20.822 Contact with and (suspected) exposure to COVID-19; Z20.828 Contact with and (suspected) exposure to other viral communicable diseases; Z79.899 Other long term (current) drug therapy
CPT/HCPCS: 0241U; 36415; 70360; 71046; 80048; 85025; 94640; 96374; 96376; 99284; J1170; J2930

== ENCOUNTER 2022-04-05 18:02 | Inpatient (IN) | payer OTHER, SELFPAY ==
--- NOTE | ~2022-04-05 | XR_ITS ---
EXAMINATION: XR CHEST CLINICAL INFORMATION: Shortness of breath and asthma COMPARISON: Chest x-ray 03/21/2022 TECHNIQUE: Frontal view of the chest was obtained. FINDINGS: No airspace consolidation. No pleural effusion or pneumothorax visualized. Normal cardiomediastinal silhouette. No evidence pulmonary edema. Tracheostomy tube remains midline. No acute osseous injury identified. XR/XR chest 1V IMPRESSION: No acute pulmonary process.
--- NOTE | 2022-04-05 18:04 | ECG_ITS ---
Test Reason : SOB Blood Pressure : / mmHG Vent. Rate : 097 BPM Atrial Rate : 097 BPM P-R Int : 152 ms QRS Dur : 082 ms QT Int : 356 ms P-R-T Axes : 044 -13 040 degrees QTc Int : 452 ms Normal sinus rhythm Cannot rule out Anterior infarct (cited on or before 05-APR-2022) ; could be related to lead placement and body habitus Borderline ECG When compared with ECG of 24-JAN-2022 14:24, No significant change was found Referred By: Meli Young Electronically Signed By:DENIS GAMBINO
--- NOTE | 2022-04-05 18:06 | ED_ITS ---
HPI - SOB/Dyspnea General Chief Complaint: Dyspnea <OSEI López - Last Filed: 04/05/22 18:11> Stated Complaint: asthma sob/ no insulin for 2 wks <OSEI López - Last Filed: 04/05/22 18:11> Time Seen by Provider: 04/05/22 18:20 <OSEI López - Last Filed: 04/05/22 18:11> Source: patient <OSEI Jaquez - Last Filed: 04/06/22 00:03> Mode of arrival: ambulatory <OSEI Jaquez Last Filed: 04/06/22 00:03> Limitations: no limitations <OSEI Jaquez Last Filed: 04/06/22 00:03> History of Present Illness HPI Narrative: This is a 51-year-old female history of asthma, bipolar disorder, diabetes, history of cardiac arrest, kidney stones, substance abuse,takotsubo cardiomyopathy, tracheostomy in place on p.r.n. O2 nocturnally presenting to the emergency department with complaints of shortness of breath, cough with productive sputum, fatigue, malaise times a few days worsening. Patient reports she feels terrible. She tells me that her ribs hurt from coughing. She tells me it is a hacking cough she is having. She tells me she also ran out of insulin and is concerned about this, she tells me she reached out to her primary care provider however her primary care provider will not refill her insulin until she sees them. Patient's glucose at home has been running higher around 400. Denies chest pain, nausea, vomiting, headache, vision changes, dizziness, weakness, abdominal pain, fevers and chills. No known sick contacts <OSEI Jaquez Last Filed: 04/06/22 00:03> Related Data Home Medications: Home Medications Medication Instructions Recorded Confirmed albuterol sulfate 2.5 mg/3 mL 1 vial inhalation Q4H PRN wheezing 10/28/21 03/31/22 (0.083 %) solution for nebulization apixaban 5 mg tablet (Eliquis) 1 tab PO BID 10/28/21 03/31/22 atorvastatin 10 mg tablet 1 tab PO DAILY 10/28/21 03/31/22 clonazepam 1 mg tablet 1 tab PO BID PRN Anxiety 10/28/21 03/31/22 escitalopram oxalate 20 mg tablet 1 tab PO BEDTIME 10/28/21 03/31/22 famotidine 20 mg tablet 1 tab PO BID 10/28/21 03/31/22 fluticasone propionate 50 1 spray intranasal DAILY 10/28/21 03/31/22 mcg/actuation nasal spray,suspension glipizide 5 mg tablet 1 tab PO BIDAC 10/28/21 03/31/22 lurasidone 60 mg tablet (Latuda) 1 tab PO DAILY 10/28/21 03/31/22 metformin 500 mg tablet,extended 2 tab PO BIDWM 10/28/21 03/31/22 release 24 hr oxcarbazepine 300 mg tablet 1 tab PO BID 10/28/21 03/31/22 promethazine 25 mg tablet 1 tab PO DAILY PRN nausea 10/28/21 03/31/22 trazodone 100 mg tablet 1 tab PO BEDTIME 10/28/21 03/31/22 albuterol sulfate 90 mcg/actuation 2 puff inhalation QID PRN 01/24/22 03/31/22 aerosol inhaler (Ventolin HFA) Shortness Of Breath diphenhydramine HCl 25 mg capsule 25 mg PO Q6H PRN POST NASAL DRIP 01/24/22 03/31/22 (Benadryl) tizanidine 4 mg tablet 1 tab PO DAILY PRN muscle spasm 01/24/22 03/31/22 Previous Rx's Medication Instructions Recorded insulin glargine 100 unit/mL (3 10 unit (0.1 mL) subcut QAM #15 mL 01/25/22 mL) subcutaneous pen (Lantus Solostar U-100 Insulin) insulin lispro 100 unit/mL 1 sliding scale dose subcut 01/25/22 subcutaneous pen (Humalog KwikPen USEASDIRECTD #15 mL (U-100) Insulin) prednisone 10 mg tablet See Taper PO DAILY #30 tabs 01/25/22 prednisone 10 mg tablet 10 mg PO DIRECTED #28 tabs 03/05/22 apixaban 5 mg tablet (Eliquis) 5 mg PO BID #60 tabs 01/09/23 prednisone 20 mg tablet 40 mg PO DAILY #10 tabs 03/22/22 <OSEI López - Last Filed: 04/05/22 18:11> Allergies/Adverse Reactions: Allergies Allergy/AdvReac Type Severity Reaction Status Date / Time pantoprazole Allergy Unknown Verified 04/05/22 18:08 <OSEI López - Last Filed: 04/05/22 18:11> Review of Systems Review of Systems: Constitutional : No Weight loss, No Fever, No Chills, No Fatigue, No Malaise ENT/Mouth : No sore throat, No Rhinorrhea Eyes: No Eye Pain, No Swelling, No Redness Cardiovascular : No Chest Pain, + SOB, No Dyspnea on Exertion, No Orthopnea, No Edema, No Palpitations Respiratory : No Cough, No Sputum, + Wheezing Gastrointestinal : No Nausea, No Vomiting, No Diarrhea, No Constipation, No abdominal Pain, No Hematochezia, No Melena Genitourinary : No Dysuria, No Urinary Frequency, No Hematuria, Musculoskeletal : No joint pain, No Myalgias, No Joint Swelling Skin : No Skin Lesions, No rash Neuro : No Weakness, No Numbness, No Dizziness, No Headache Psych : No Anxiety/Panic, No Depression All other systems reviewed and are negative <OSEI Jaquez - Last Filed: 04/06/22 00:03> Yes all other systems are reviewed and are negative <OSEI Jaquez - Last Filed: 04/06/22 00:03> [facility] Past Medical History Attestation statement: The following information was validated with the patient. <OSEI Jaquez - Last Filed: 04/06/22 00:03> Source: old records reviewed and nursing notes reviewed <OSEI Jaquez - Last Filed: 04/06/22 00:03> Medical History: Medical History Asthma Bipolar 1 disorder Diabetes History of cardiac arrest Kidney stones Substance abuse Takotsubo cardiomyopathy UTI (urinary tract infection) Wound drainage <OSEI López - Last Filed: 04/05/22 18:11> Surgical History: Surgical History H/O exploratory laparotomy S/P cholecystectomy S/P ureteral stent placement <OSEI López - Last Filed: 04/05/22 18:11> Family History Family History: Family History Mother No pertinent family history Father No pertinent family history <OSEI López - Last Filed: 04/05/22 18:11> Social History Social History: Social History Household Members: Spouse Household Members Other:: 1 Housing: Apartment Do you presently have visiting nurse or other home services: No Alcohol intake: never Patient Tobacco Use Status: Never used Tobacco Second Hand Smoke Exposure: Yes Advance Directives: No Advance Directives Information Provided: No Advance Directives Date on File: 01/25/22 service: No Current occupational status: disabled <OSEI López - Last Filed: 04/05/22 18:11> Physical Exam Vital Signs: Vital Signs: Last Vital Signs Temp 99.1 F 04/05/22 22:41 Pulse 94 04/05/22 22:41 Resp 22 H 04/05/22 22:41 BP 118/60 04/05/22 22:41 Pulse Ox 95 04/05/22 22:41 O2 Del Method 04/05/22 22:41 BMI result Body Mass Index 32.3 <OSEI López - Last Filed: 04/05/22 18:11> Vital Signs: Last Vital Signs Temp 99.1 F 04/05/22 22:41 Pulse 94 04/05/22 22:41 Resp 22 H 04/05/22 22:41 BP 118/60 04/05/22 22:41 Pulse Ox 95 04/05/22 22:41 O2 Del Method 04/05/22 22:41 BMI result Body Mass Index 32.3 vss <OSEI Jaquez - Last Filed: 04/06/22 00:03> Appearance: Alert.? Oriented X3.? No acute distress.? Patient well appearing speaking in full sentences. Head: Normocephalic, atraumatic, no step-offs or deformities Eyes: Pupils equal, round and reactive to light.? ENT: Pharynx normal.? Neck: Normal inspection.? Neck supple.? CVS: Normal heart rate and rhythm.? Pulses normal.? Respiratory: No respiratory distress.? Breath sounds diminished bilaterally with expiratory wheezing..? Abdomen: Soft and nontender.? Skin: Skin warm and dry.? Normal skin color.? Normal skin turgor.? Extremities: No lower extremity edema.? No calf ttp. 5/5 strength to bilateral upper and lower extremities Neuro: Oriented X 3.? No motor deficit.? No sensory deficit. CN 2-12 intact <OSEI Jaquez - Last Filed: 04/06/22 00:03> Course Course Course Narrative: RME - 51 yo female with history of asthma on PRN O2 nocturally, DM, anxiety, chronic pain on chronic opiates, necrotizing pancreatitis with hx prolonged hospitalization at [facility] in 2020, course complicated by cardiac arrest and tracheostomy, hx recurrent UTIs, hx bacteremia, history of kidney stones requiring ureteral stent presenting with worsening SOB and coughing for the last couple of weeks. Back pain from the coughing. Ran out of insulin and doc won't refill until they see her in the office on 04/13. POC 400s at home. Wheezing but speaking in complete sentences and saturating 96% in triage. Not tachypneic. CXR, labs, POC, viral swabs ordered. To go back to Main ED now. <OSEI López - Last Filed: 04/05/22 18:11> Reevaluation(s) Reevaluation #1: CBC wnl, chemistry with no acute findings requiring intervention. POC still elevated despite fluids will give insulin. Trop negative EKG WNL no signs of acs or ischemia. BNP negative. Flu/COVID/RSV negative. Chest x-ray unremarkable. Patient has gotten to albuterol treatments still feeling very short of breath and tells me she is having difficulty breathing breath sounds are still diminished, wheezing has improved however. Patient 93-94%. Will obtain ambulatory O2. I suspect this is a viral infection. D-dimer was negative therefore low suspicion for PE. No signs of pneumonia. Plan is to admit patient as she is still feeling significantly short of breath and tells me she does not feel well and feels weak when she ambulates. Hospitalist accepts admission <OSEI Jaquez - Last Filed: 04/06/22 00:03> Time: 00:01 <OSEI Jaquez - Last Filed: 04/06/22 00:03> Medications Administered Discontinued Medications Generic Name Dose Route Start Last Admin Trade Name Freq PRN Reason Stop Dose Admin Albuterol Sulfate 7.5 mg/ 10 mg 04/05/22 18:28 04/05/22 18:37 Albuterol Sulfate 2.5 mg INHALE 04/05/22 18:29 10 mg ONCE ONE Administration Albuterol Sulfate 7.5 mg/ 10 mg 04/05/22 20:41 04/05/22 20:55 Albuterol Sulfate 2.5 mg INHALE 04/05/22 20:42 10 mg ONCE ONE Administration Hydromorphone HCl 1 mg 04/05/22 20:40 04/05/22 21:04 Hydromorphone Hcl 1 Mg/Ml Syringe IVPUSH 04/05/22 20:41 1 mg ONCE ONE Administration Protocol <OSEI López - Last Filed: 04/05/22 18:11> Medications Administered Discontinued Medications Generic Name Dose Route Start Last Admin Trade Name Freq PRN Reason Stop Dose Admin Albuterol Sulfate 7.5 mg/ 10 mg 04/05/22 18:28 04/05/22 18:37 Albuterol Sulfate 2.5 mg INHALE 04/05/22 18:29 10 mg ONCE ONE Administration Albuterol Sulfate 7.5 mg/ 10 mg 04/05/22 20:41 04/05/22 20:55 Albuterol Sulfate 2.5 mg INHALE 04/05/22 20:42 10 mg ONCE ONE Administration Hydromorphone HCl 1 mg 04/05/22 20:40 04/05/22 21:04 Hydromorphone Hcl 1 Mg/Ml Syringe IVPUSH 04/05/22 20:41 1 mg ONCE ONE Administration Protocol <OSEI Jaquez - Last Filed: 04/06/22 00:03> Medical Decision Making Medical Decision Making [facility] Narrative: 1833 51-year-old female presents with shortness of breath, cough times a few days worsening. No known sick contacts at home. Physical exam with diminished breath sounds bilaterally and expiratory wheezing. Saturating 96% on room air. Speaking in full sentences and appears comfortable. Likely asthma versus viral infection. I do not suspect pneumonia, PE, ACS. Plan at this time labs, x-ray, point of care. <OSEI Jaquez - Last Filed: 04/06/22 00:03> Differential Diagnosis Differential Diagnoses: The differential diagnosis associated with the presentation includes <OSEI Jaquez - Last Filed: 04/06/22 00:03> Likely asthma versus viral infection. I do not suspect pneumonia, PE, ACS. <OSEI Jaquez - Last Filed: 04/06/22 00:03> Admission/Observation Consideration of admission/observation: Escalation of care including admission/observation considered <OSEI Jaquez - Last Filed: 04/06/22 00:03> Lab Data Result Diagrams: 04/05/22 18:48 04/05/22 18:48 <OSEI López - Last Filed: 04/05/22 18:11> Labs: Lab Results 04/05/22 04/05/22 04/05/22 Range/Units 18:34 18:47 18:47 WBC (4.8-10.8) X10*3/uL RBC (4.20-5.50) X10*6/uL Hgb (12.0-16.0) g/dl Hct (37.0-47.0) % MCV (80.0-98.0) fL MCH (27.0-33.0) pg MCHC (31.0-35.0) g/dl RDW (11.0-16.0) % Plt Count (160-400) X10*3/uL MPV (9.4-12.3) fL Immature Gran % (Auto) (0.0-0.4) % Neut % (Auto) (45-73) % Lymph % (Auto) (20-40) % [place] % (Auto) (2-11) % Eos % (Auto) (0-4) % Baso % (Auto) (0-2) % Lymph # (Auto) (1.2-4.9) X10*3/uL [place] # (Auto) (0.1-1.2) X10*3/uL Eos # (Auto) (0.0-0.4) X10*3/uL Baso # (Auto) (0.0-0.2) X10*3/uL Abs Immat Gran (auto) (0.00-0.03) X10*3/uL Absolute Neuts (auto) (2.0-8.3) x10*3/uL Absolute Nucleated RBC (0.0-0.012) X10*3/uL Nucleated RBC % (auto) (0.0-0.2) /100WBC D-Dimer High Sensitivty NG/ML VBG pH (7.32-7.43) VBG pCO2 mmHg VBG pO2 mmHg VBG HCO3 (22-26) mmol/L VBG O2 Saturation % VBG Base Excess mmol/L Sodium (135-145) mmol/L Potassium (3.3-5.1) mmol/L Chloride (96-108) mmol/L Carbon Dioxide (22-29) mmol/L Anion Gap (12-20) BUN (9-16) mg/dL Creatinine (0.5-1.4) mg/dL Estim Creat Clear Calc Estimated GFR POC Glucose (60-115) mg/dL Random Glucose (60-115) mg/dL Calcium (8.4-10.2) mg/dL Magnesium (1.6-2.6) mg/dL Total Bilirubin (0.0-1.0) mg/dL Direct Bilirubin (0.0-0.5) mg/dL AST (5-31) U/L ALT (0-31) U/L Alkaline Phosphatase (39-117) U/L Troponin I High Sens < 3.5 (<3.5-17.0) ng/L B-Natriuretic Peptide < 10 (<100) pg/mL Total Protein (6.5-8.0) g/dL Albumin (3.5-5.0) g/dL Influenza Type A (PCR) NEGATIVE (Negative) Influenza Type B (PCR) NEGATIVE (Negative) RSV RNA Qual (PCR) NEGATIVE (Negative) SARS-CoV-2 RNA (RT-PCR) NEGATIVE (Negative) 04/05/22 04/05/22 04/05/22 Range/Units 18:48 18:48 18:53 WBC 9.9 (4.8-10.8) X10*3/uL RBC 4.32 (4.20-5.50) X10*6/uL Hgb 12.0 (12.0-16.0) g/dl Hct 37.2 (37.0-47.0) % MCV 86.1 (80.0-98.0) fL MCH 27.8 (27.0-33.0) pg MCHC 32.3 (31.0-35.0) g/dl RDW 12.8 (11.0-16.0) % Plt Count 332 (160-400) X10*3/uL MPV 9.5 (9.4-12.3) fL Immature Gran % (Auto) 0.5 H (0.0-0.4) % Neut % (Auto) 74.5 H (45-73) % Lymph % (Auto) 15.6 L (20-40) % [place] % (Auto) 5.0 (2-11) % Eos % (Auto) 3.9 (0-4) % Baso % (Auto) 0.5 (0-2) % Lymph # (Auto) 1.5 (1.2-4.9) X10*3/uL [place] # (Auto) 0.5 (0.1-1.2) X10*3/uL Eos # (Auto) 0.4 (0.0-0.4) X10*3/uL Baso # (Auto) 0.1 (0.0-0.2) X10*3/uL Abs Immat Gran (auto) 0.05 H (0.00-0.03) X10*3/uL Absolute Neuts (auto) 7.4 (2.0-8.3) x10*3/uL Absolute Nucleated RBC 0.000 (0.0-0.012) X10*3/uL Nucleated RBC % (auto) 0.0 (0.0-0.2) /100WBC D-Dimer High Sensitivty NG/ML VBG pH 7.37 (7.32-7.43) VBG pCO2 60 mmHg VBG pO2 42 mmHg VBG HCO3 35 H (22-26) mmol/L VBG O2 Saturation 60.0 % VBG Base Excess 7.7 mmol/L Sodium 136 (135-145) mmol/L Potassium 4.1 (3.3-5.1) mmol/L Chloride 97 (96-108) mmol/L Carbon Dioxide 30 H (22-29) mmol/L Anion Gap 13 (12-20) BUN 16 (9-16) mg/dL Creatinine 1.14 (0.5-1.4) mg/dL Estim Creat Clear Calc 65.5 Estimated GFR 50 POC Glucose (60-115) mg/dL Random Glucose 273 H (60-115) mg/dL Calcium 8.8 (8.4-10.2) mg/dL Magnesium 1.6 (1.6-2.6) mg/dL Total Bilirubin 0.3 (0.0-1.0) mg/dL Direct Bilirubin < 0.2 (0.0-0.5) mg/dL AST 16 (5-31) U/L ALT 17 (0-31) U/L Alkaline Phosphatase 185 H (39-117) U/L Troponin I High Sens (<3.5-17.0) ng/L B-Natriuretic Peptide (<100) pg/mL Total Protein 6.1 L (6.5-8.0) g/dL Albumin 3.5 (3.5-5.0) g/dL Influenza Type A (PCR) (Negative) Influenza Type B (PCR) (Negative) RSV RNA Qual (PCR) (Negative) SARS-CoV-2 RNA (RT-PCR) (Negative) 04/05/22 04/05/22 Range/Units 21:28 22:56 WBC (4.8-10.8) X10*3/uL RBC (4.20-5.50) X10*6/uL Hgb (12.0-16.0) g/dl Hct (37.0-47.0) % MCV (80.0-98.0) fL MCH (27.0-33.0) pg MCHC (31.0-35.0) g/dl RDW (11.0-16.0) % Plt Count (160-400) X10*3/uL MPV (9.4-12.3) fL Immature Gran % (Auto) (0.0-0.4) % Neut % (Auto) (45-73) % Lymph % (Auto) (20-40) % [place] % (Auto) (2-11) % Eos % (Auto) (0-4) % Baso % (Auto) (0-2) % Lymph # (Auto) (1.2-4.9) X10*3/uL [place] # (Auto) (0.1-1.2) X10*3/uL Eos # (Auto) (0.0-0.4) X10*3/uL Baso # (Auto) (0.0-0.2) X10*3/uL Abs Immat Gran (auto) (0.00-0.03) X10*3/uL Absolute Neuts (auto) (2.0-8.3) x10*3/uL Absolute Nucleated RBC (0.0-0.012) X10*3/uL Nucleated RBC % (auto) (0.0-0.2) /100WBC D-Dimer High Sensitivty < 150 NG/ML VBG pH (7.32-7.43) VBG pCO2 mmHg VBG pO2 mmHg VBG HCO3 (22-26) mmol/L VBG O2 Saturation % VBG Base Excess mmol/L Sodium (135-145) mmol/L Potassium (3.3-5.1) mmol/L Chloride (96-108) mmol/L Carbon Dioxide (22-29) mmol/L Anion Gap (12-20) BUN (9-16) mg/dL Creatinine (0.5-1.4) mg/dL Estim Creat Clear Calc Estimated GFR POC Glucose 285 H (60-115) mg/dL Random Glucose (60-115) mg/dL Calcium (8.4-10.2) mg/dL Magnesium (1.6-2.6) mg/dL Total Bilirubin (0.0-1.0) mg/dL Direct Bilirubin (0.0-0.5) mg/dL AST (5-31) U/L ALT (0-31) U/L Alkaline Phosphatase (39-117) U/L Troponin I High Sens (<3.5-17.0) ng/L B-Natriuretic Peptide (<100) pg/mL Total Protein (6.5-8.0) g/dL Albumin (3.5-5.0) g/dL Influenza Type A (PCR) (Negative) Influenza Type B (PCR) (Negative) RSV RNA Qual (PCR) (Negative) SARS-CoV-2 RNA (RT-PCR) (Negative) <OSEI López - Last Filed: 04/05/22 18:11> Lab Results 04/05/22 04/05/22 04/05/22 Range/Units 18:34 18:47 18:47 WBC (4.8-10.8) X10*3/uL RBC (4.20-5.50) X10*6/uL Hgb (12.0-16.0) g/dl Hct (37.0-47.0) % MCV (80.0-98.0) fL MCH (27.0-33.0) pg MCHC (31.0-35.0) g/dl RDW (11.0-16.0) % Plt Count (160-400) X10*3/uL MPV (9.4-12.3) fL Immature Gran % (Auto) (0.0-0.4) % Neut % (Auto) (45-73) % Lymph % (Auto) (20-40) % [place] % (Auto) (2-11) % Eos % (Auto) (0-4) % Baso % (Auto) (0-2) % Lymph # (Auto) (1.2-4.9) X10*3/uL [place] # (Auto) (0.1-1.2) X10*3/uL Eos # (Auto) (0.0-0.4) X10*3/uL Baso # (Auto) (0.0-0.2) X10*3/uL Abs Immat Gran (auto) (0.00-0.03) X10*3/uL Absolute Neuts (auto) (2.0-8.3) x10*3/uL Absolute Nucleated RBC (0.0-0.012) X10*3/uL Nucleated RBC % (auto) (0.0-0.2) /100WBC D-Dimer High Sensitivty NG/ML VBG pH (7.32-7.43) VBG pCO2 mmHg VBG pO2 mmHg VBG HCO3 (22-26) mmol/L VBG O2 Saturation % VBG Base Excess mmol/L Sodium (135-145) mmol/L Potassium (3.3-5.1) mmol/L Chloride (96-108) mmol/L Carbon Dioxide (22-29) mmol/L Anion Gap (12-20) BUN (9-16) mg/dL Creatinine (0.5-1.4) mg/dL Estim Creat Clear Calc Estimated GFR POC Glucose (60-115) mg/dL Random Glucose (60-115) mg/dL Calcium (8.4-10.2) mg/dL Magnesium (1.6-2.6) mg/dL Total Bilirubin (0.0-1.0) mg/dL Direct Bilirubin (0.0-0.5) mg/dL AST (5-31) U/L ALT (0-31) U/L Alkaline Phosphatase (39-117) U/L Troponin I High Sens < 3.5 (<3.5-17.0) ng/L B-Natriuretic Peptide < 10 (<100) pg/mL Total Protein (6.5-8.0) g/dL Albumin (3.5-5.0) g/dL Influenza Type A (PCR) NEGATIVE (Negative) Influenza Type B (PCR) NEGATIVE (Negative) RSV RNA Qual (PCR) NEGATIVE (Negative) SARS-CoV-2 RNA (RT-PCR) NEGATIVE (Negative) 04/05/22 04/05/22 04/05/22 Range/Units 18:48 18:48 18:53 WBC 9.9 (4.8-10.8) X10*3/uL RBC 4.32 (4.20-5.50) X10*6/uL Hgb 12.0 (12.0-16.0) g/dl Hct 37.2 (37.0-47.0) % MCV 86.1 (80.0-98.0) fL MCH 27.8 (27.0-33.0) pg MCHC 32.3 (31.0-35.0) g/dl RDW 12.8 (11.0-16.0) % Plt Count 332 (160-400) X10*3/uL MPV 9.5 (9.4-12.3) fL Immature Gran % (Auto) 0.5 H (0.0-0.4) % Neut % (Auto) 74.5 H (45-73) % Lymph % (Auto) 15.6 L (20-40) % [place] % (Auto) 5.0 (2-11) % Eos % (Auto) 3.9 (0-4) % Baso % (Auto) 0.5 (0-2) % Lymph # (Auto) 1.5 (1.2-4.9) X10*3/uL [place] # (Auto) 0.5 (0.1-1.2) X10*3/uL Eos # (Auto) 0.4 (0.0-0.4) X10*3/uL Baso # (Auto) 0.1 (0.0-0.2) X10*3/uL Abs Immat Gran (auto) 0.05 H (0.00-0.03) X10*3/uL Absolute Neuts (auto) 7.4 (2.0-8.3) x10*3/uL Absolute Nucleated RBC 0.000 (0.0-0.012) X10*3/uL Nucleated RBC % (auto) 0.0 (0.0-0.2) /100WBC D-Dimer High Sensitivty NG/ML VBG pH 7.37 (7.32-7.43) VBG pCO2 60 mmHg VBG pO2 42 mmHg VBG HCO3 35 H (22-26) mmol/L VBG O2 Saturation 60.0 % VBG Base Excess 7.7 mmol/L Sodium 136 (135-145) mmol/L Potassium 4.1 (3.3-5.1) mmol/L Chloride 97 (96-108) mmol/L Carbon Dioxide 30 H (22-29) mmol/L Anion Gap 13 (12-20) BUN 16 (9-16) mg/dL Creatinine 1.14 (0.5-1.4) mg/dL Estim Creat Clear Calc 65.5 Estimated GFR 50 POC Glucose (60-115) mg/dL Random Glucose 273 H (60-115) mg/dL Calcium 8.8 (8.4-10.2) mg/dL Magnesium 1.6 (1.6-2.6) mg/dL Total Bilirubin 0.3 (0.0-1.0) mg/dL Direct Bilirubin < 0.2 (0.0-0.5) mg/dL AST 16 (5-31) U/L ALT 17 (0-31) U/L Alkaline Phosphatase 185 H (39-117) U/L Troponin I High Sens (<3.5-17.0) ng/L B-Natriuretic Peptide (<100) pg/mL Total Protein 6.1 L (6.5-8.0) g/dL Albumin 3.5 (3.5-5.0) g/dL Influenza Type A (PCR) (Negative) Influenza Type B (PCR) (Negative) RSV RNA Qual (PCR) (Negative) SARS-CoV-2 RNA (RT-PCR) (Negative) 04/05/22 04/05/22 Range/Units 21:28 22:56 WBC (4.8-10.8) X10*3/uL RBC (4.20-5.50) X10*6/uL Hgb (12.0-16.0) g/dl Hct (37.0-47.0) % MCV (80.0-98.0) fL MCH (27.0-33.0) pg MCHC (31.0-35.0) g/dl RDW (11.0-16.0) % Plt Count (160-400) X10*3/uL MPV (9.4-12.3) fL Immature Gran % (Auto) (0.0-0.4) % Neut % (Auto) (45-73) % Lymph % (Auto) (20-40) % [place] % (Auto) (2-11) % Eos % (Auto) (0-4) % Baso % (Auto) (0-2) % Lymph # (Auto) (1.2-4.9) X10*3/uL [place] # (Auto) (0.1-1.2) X10*3/uL Eos # (Auto) (0.0-0.4) X10*3/uL Baso # (Auto) (0.0-0.2) X10*3/uL Abs Immat Gran (auto) (0.00-0.03) X10*3/uL Absolute Neuts (auto) (2.0-8.3) x10*3/uL Absolute Nucleated RBC (0.0-0.012) X10*3/uL Nucleated RBC % (auto) (0.0-0.2) /100WBC D-Dimer High Sensitivty < 150 NG/ML VBG pH (7.32-7.43) VBG pCO2 mmHg VBG pO2 mmHg VBG HCO3 (22-26) mmol/L VBG O2 Saturation % VBG Base Excess mmol/L Sodium (135-145) mmol/L Potassium (3.3-5.1) mmol/L Chloride (96-108) mmol/L Carbon Dioxide (22-29) mmol/L Anion Gap (12-20) BUN (9-16) mg/dL Creatinine (0.5-1.4) mg/dL Estim Creat Clear Calc Estimated GFR POC Glucose 285 H (60-115) mg/dL Random Glucose (60-115) mg/dL Calcium (8.4-10.2) mg/dL Magnesium (1.6-2.6) mg/dL Total Bilirubin (0.0-1.0) mg/dL Direct Bilirubin (0.0-0.5) mg/dL AST (5-31) U/L ALT (0-31) U/L Alkaline Phosphatase (39-117) U/L Troponin I High Sens (<3.5-17.0) ng/L B-Natriuretic Peptide (<100) pg/mL Total Protein (6.5-8.0) g/dL Albumin (3.5-5.0) g/dL Influenza Type A (PCR) (Negative) Influenza Type B (PCR) (Negative) RSV RNA Qual (PCR) (Negative) SARS-CoV-2 RNA (RT-PCR) (Negative) <OSEI Jaquez - Last Filed: 04/06/22 00:03> Critical Care Time Critical Care Time Critical Care Time: No <OSEI Jaquez - Last Filed: 04/06/22 00:03> Discharge Plan Discharge Clinical Impression: Asthma <OSEI López - Last Filed: 04/05/22 18:11> Patient Disposition: Admitted As Inpatient <OSEI López - Last Filed: 04/05/22 18:11> Prescriptions: No Action tizanidine 4 mg tablet 1 tab PO DAILY PRN (Reason: muscle spasm) albuterol sulfate [Ventolin HFA] 90 mcg/actuation HFA aerosol inhaler 2 puff inhalation QID PRN (Reason: Shortness Of Breath) diphenhydramine HCl [Benadryl] 25 mg Capsule 25 mg PO Q6H PRN (Reason: POST NASAL DRIP) prednisone 10 mg tablet See Taper PO DAILY Qty: 30 0RF Taper: Prednisone 40 mg daily for 3 Days and 0 Hour 30 mg daily for 3 Days and 0 Hour 20 mg daily for 3 Days and 0 Hour 10 mg daily for 3 Days and 0 Hour insulin glargine [Lantus Solostar U-100 Insulin] 100 unit/mL (3 mL) insulin pen 10 unit subcut QAM Qty: 15 0RF insulin lispro [Humalog KwikPen Insulin] 100 unit/mL insulin pen 1 sliding scale dose subcut USEASDIRECTD Qty: 15 0RF Rx Instructions: Administer 3 times day before meals after checking glucose: 0 units if <150 2 units if 150-199 4 units if 200-249 6 units if 250-299 8 units if 300-349 10 units if 350-399 Call PCP if >400 prednisone 10 mg tablet 10 mg PO DIRECTED Qty: 28 0RF Rx Instructions: see taper instructions 40 mg for 4 days, 30mg for 2 days, 20mg for 2 days, 10mg for 2 days albuterol sulfate 2.5 mg /3 mL (0.083 %) solution for nebulization 1 vial inhalation Q4H PRN (Reason: wheezing) atorvastatin 10 mg tablet 1 tab PO DAILY clonazepam 1 mg tablet 1 tab PO BID PRN (Reason: Anxiety) oxcarbazepine 300 mg tablet 1 tab PO BID famotidine 20 mg tablet 1 tab PO BID trazodone 100 mg tablet 1 tab PO BEDTIME promethazine 25 mg tablet 1 tab PO DAILY PRN (Reason: nausea) fluticasone propionate 50 mcg/actuation spray,suspension 1 spray intranasal DAILY metformin 500 mg tablet extended release 24 hr 2 tab PO BIDWM glipizide 5 mg tablet 1 tab PO BIDAC escitalopram oxalate 20 mg tablet 1 tab PO BEDTIME Eliquis 5 mg tablet 1 tab PO BID Latuda 60 mg tablet 1 tab PO DAILY Eliquis 5 mg tablet 5 mg PO BID Qty: 60 0RF prednisone 20 mg tablet 40 mg PO DAILY Qty: 10 0RF <OSEI López - Last Filed: 04/05/22 18:11>
[2022-04-05 18:08] VITALS: BP 138/84; PULSE 120; RESP 24; TEMP 36.9; O2SAT 90; BMI 32.3
[2022-04-05 18:37] VITALS: PULSE 94; RESP 18; O2SAT 97
[2022-04-05] MEDS: Albuterol Sulfate 7.5 MG, Albuterol Sulfate (0.083%) 2.5 MG 10 MG INHALE ×2 (18:37→20:55)
[2022-04-05 18:53] LABS: MANUAL DIFF FLAG NO
[2022-04-05 18:58] LABS: VBG Base Excess 7.7 mmol/L; VBG HCO3 35 mmol/L (22-26); VBG pCO2 60 mmHg; VBG pH 7.37 (7.32-7.43); VBG pO2 42 mmHg
[2022-04-05 18:58] LABS: Basophils Absolute Auto 0.1 X10*3/uL (0.0-0.2); Basophils Percent Auto 0.5 % (0-2); Eosinophils Absolute Auto 0.4 X10*3/uL (0.0-0.4); Eosinophils Percent Auto 3.9 % (0-4); Hematocrit 37.2 % (37.0-47.0); Imm Gran Abs Auto 0.05 X10*3/uL (0.00-0.03); Imm Gran Pct Auto 0.5 % (0.0-0.4); Lymphocytes Absolute Auto 1.5 X10*3/uL (1.2-4.9); Lymphocytes Percent Auto 15.6 % (20-40); Mean Corpuscular HGB Conc 32.3 g/dl (31.0-35.0); Mean Corpuscular Hemoglobin 27.8 pg (27.0-33.0); Mean Corpuscular Volume 86.1 fL (80.0-98.0); Mean Platelet Volume 9.5 fL (9.4-12.3); Monocytes Absolute Auto 0.5 X10*3/uL (0.1-1.2); Neutrophils Absolute Auto 7.4 x10*3/uL (2.0-8.3); Neutrophils Percent Auto 74.5 % (45-73); Platelet Count 332 X10*3/uL (160-400); Red Blood Count 4.32 X10*6/uL (4.20-5.50); Red Cell Distribution Width 12.8 % (11.0-16.0); White Blood Count 9.9 X10*3/uL (4.8-10.8)
[2022-04-05 19:24] LABS: Alanine Aminotransferase 17 U/L (0-31); Albumin Level 3.5 g/dL (3.5-5.0); Alkaline Phosphatase 185 U/L (39-117); Anion Gap 13 (12-20); Aspartate Amino Transferase 16 U/L (5-31); Bilirubin Direct < 0.2 mg/dL (0.0-0.5); Bilirubin Total 0.3 mg/dL (0.0-1.0); Blood Urea Nitrogen 16 mg/dL (9-16); Calcium 8.8 mg/dL (8.4-10.2); Carbon Dioxide 30 mmol/L (22-29); Chloride 97 mmol/L (96-108); Creatinine Clr Calc Pharmacy 65.5; Estimated Glomerular Filt Rate 50; Magnesium 1.6 mg/dL (1.6-2.6); Potassium 4.1 mmol/L (3.3-5.1); Sodium 136 mmol/L (135-145); Total Protein 6.1 g/dL (6.5-8.0)
[2022-04-05 19:25] LABS: B Type Natriuretic Peptide < 10 pg/mL (<100)
[2022-04-05 19:33] LABS: Venous Blood Gas Refer to POC result
[2022-04-05 19:33] LABS: Glucose Random 273 mg/dL (60-115)
--- NOTE | 2022-04-05 19:38 | PC.NURSE ---
assumed care of patient pt aox4 no apparent distress; resting while watching tv and receiving breathing txmt diffiiculty obtaining accessing IV access thus delaying med administration
[2022-04-05 20:21] LABS: Troponin-I High Sensitivity < 3.5 ng/L (<3.5-17.0)
[2022-04-05 20:24] LABS: Influenza A PCR NEGATIVE (Negative); Influenza B PCR NEGATIVE (Negative); Resp Syncy Virus RNA Qual PCR NEGATIVE (Negative); SARS COV2 PCR INHOUSE NEGATIVE (Negative)
[2022-04-05 21:04] VITALS: RESP 16
[2022-04-05] MEDS: HYDROmorphone HCl 1 MG/ML SYRINGE IVPUSH (21:04)
[2022-04-05 21:32] LABS: Glucose, Whole Blood 285 mg/dL (60-115)
[2022-04-05 22:41] VITALS: BP 118/60; PULSE 94; RESP 22; TEMP 37.3; O2SAT 95
[2022-04-05 23:10] LABS: D Dimer High Sensitivity < 150 NG/ML
[2022-04-06] VITALS (10 sets, daily range): BP systolic 109–146; BP diastolic 66–93; PULSE 67–101; RESP 16–20; TEMP 36.1–37.2; O2SAT 94–98
[2022-04-06] MEDS: Albuterol Sulfate 7.5 MG, Albuterol Sulfate (0.083%) 2.5 MG 10 MG INHALE (00:02)
[2022-04-06] MEDS: HYDROmorphone HCl 1 MG/ML SYRINGE IVPUSH (00:07)
[2022-04-06] MEDS: Insulin Regular, Human 100 UNIT/ML 3 ML VIAL IVPUSH (00:07)
[2022-04-06 00:52] LABS: Appearance Urine Cloudy; Color Urine Yellow; Glucose Urine UA 500 mg/dL (Negative); Leukocyte Esterase Urine Moderate (2+) (Negative); Nitrite Urine Negative (Negative); UMIC TRIGGER UACC YES; Urine Blood Negative (Negative); Urine Ketones Negative (Negative); Urine Protein Trace mg/dL (Neg-Trace)
[2022-04-06 00:57] LABS: Bacteria Urine 1+ (None Seen); Hyaline Casts Urine 0-2 /LPF (0-2); RBC Urine 0-2 /HPF (0-2); UACC Culture Trigger YES; WBC Urine >50 /HPF (0-5)
[2022-04-06] MEDS: methylPREDNISolone Sod Succ 40 MG/ML VIAL IVPUSH (01:53)
[2022-04-06] MEDS: Morphine Sulfate 4 MG/ML CARTRIDGE IVPUSH (02:28)
--- NOTE | 2022-04-06 04:20 | PC.NURSE ---
patient ambulatory to and from bathroom, no apparent distress
[2022-04-06] MEDS: Benzonatate 100 MG CAPSULE PO (04:59)
[2022-04-06] MEDS: guaiFENesin DM 100/10/5 ML 5 ML SYRUP PO (04:59)
--- NOTE | 2022-04-06 06:17 | PM.IMHP ---
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 Patient reports that as a result of the cough she has also developed severe back pain that is worse when she coughs. She reports that she has had symptoms for few weeks but has not had a chance to meet with her primary care physician is as a result she has also had poor glucose control as she ran out of her insulin. She reports no fever no chill, she has a cough that is productive of yellow sputum, reports wheezing, denies any abdominal pain nausea or vomiting, no diarrhea constipation, no urinary symptoms and no lower extremity edema. Patient reports that she does have access to oxygen at bedtime but previously has not had the need to use it. On arrival to the ED patient was found to have a heart rate of 120, respiratory rate of 24, temperature of 98.4 degrees, blood pressure 138/84, satting 90% on room air, dropping to 88 on minimal exertion Labs are significant for WBC count of 9.9, labs otherwise unremarkable, glucose of 285, UA shows leukocytes Estrace and WBC Chest x-ray shows no acute pulmonary process Patient received multiple rounds of breathing treatments as well as IV Mag with minimal relief of her wheezing therefore she will be admitted for further management Review of Systems Review of Systems: Yes all other systems are reviewed and are negative [facility] Medical History Asthma Bipolar 1 disorder Diabetes History of cardiac arrest Kidney stones Substance abuse Takotsubo cardiomyopathy UTI (urinary tract infection) Wound drainage Family History Mother No pertinent family history Father No pertinent family history Surgical History H/O exploratory laparotomy S/P cholecystectomy S/P ureteral stent placement Social History Household Members: Spouse Household Members Other:: 1 Housing: Apartment Do you presently have visiting nurse or other home services: No ([employer]) Alcohol intake: never Patient Tobacco Use Status: Never used Tobacco Second Hand Smoke Exposure: Yes Use of substances other than those prescribed or required for medical reasons: No Have you been hit, kicked, punched, or otherwise hurt by someone within the past year? If so, by whom?: No Do you feel safe in your current relationship?: Yes Is there a partner from a previous relationship who is making you feel unsafe now?: No Are you made to feel afraid or neglected: No Advance Directives: No Advance Directives Information Provided: No Advance Directives on File: No Advance Directives Date on File: 01/25/22 Do you have thoughts of harming others: None Do you have a plan to hurt others: No Plan Recently lost weight without trying: No Eating poorly because of decreased appetite: No Nutrition Risks: No Nutritional Risk Patient : No : No Poor oral hygiene: No service: No Current occupational status: disabled Meds Allergies Allergy/AdvReac Type Severity Reaction Status Date / Time pantoprazole Allergy Unknown Verified 04/05/22 18:08 Active Medications: Current Medications Acetaminophen (Acetaminophen 325 Mg Tablet) 650 mg PO Q6H PRN PRN Reason: Pain, Mild (Pain Scale 1-3) Benzonatate (Benzonatate 100 Mg Capsule) 100 mg PO TID PRN PRN Reason: Cough Last Admin: 04/06/22 04:59 Dose: 100 mg Albuterol Sulfate 2.5 mg/ (Ipratropium [place] 0.5 mg) 0 mg INHALE RQ4H WHILE AWAKE RILEY Albuterol Sulfate 2.5 mg/ (Ipratropium [place] 0.5 mg) 0 mg INHALE RQ4H PRN PRN Reason: wheezing,SOB Dextrose (Dextrose 50 % 25 Gm/50 Ml Syringe) 25 gm IVPUSH Q15M PRN; Protocol PRN Reason: per Hypoglycemia Standing Ord. Docusate Sodium (Docusate Sodium 100 Mg Capsule) 100 mg PO DAILY PRN PRN Reason: Constipation Glucose (Glucose Gel 15 Gm Gel..Gram.) 15 gm PO Q15M PRN; Protocol PRN Reason: per Hypoglycemia Standing Ord. Guaifenesin/Dextromethorphan (Guaifenesin Dm 100/10/5 Ml 5 Ml Syrup) 5 ml PO Q4H PRN PRN Reason: Cough Last Admin: 04/06/22 04:59 Dose: 5 ml Insulin Human Lispro (Insulin Lispro 100 Unit/Ml 3 Ml Vial) 0 unit SUBCUT QIDACHS [facility]; Protocol Methylprednisolone Sodium Succinate (Methylprednisolone Sod Succ 40 Mg/Ml Vial) 40 mg IVPUSH Q12H [facility] Last Admin: 04/06/22 01:53 Dose: 40 mg Ondansetron HCl (Ondansetron Hcl 4 Mg/2 Ml Vial) 4 mg IVPUSH Q8H PRN PRN Reason: Nausea and Vomiting Pharmacy Consult (Consult Rx Perform Med Rec) 1 each MISCELLANE ONCE PRN PRN Reason: Consult order Sodium Chloride (0.9 % Sodium Chloride Flush 3 Ml Syringe) [facility] Medications Medication Instructions Recorded Confirmed Last Taken Type albuterol sulfate 2.5 mg/3 mL 1 vial inhalation Q4H PRN wheezing 10/28/21 03/31/22 01/24/22 History (0.083 %) solution for nebulization apixaban 5 mg tablet (Eliquis) 1 tab PO BID 10/28/21 03/31/22 01/24/22 History atorvastatin 10 mg tablet 1 tab PO DAILY 10/28/21 03/31/22 01/24/22 History clonazepam 1 mg tablet 1 tab PO BID PRN Anxiety 10/28/21 03/31/22 01/24/22 History escitalopram oxalate 20 mg tablet 1 tab PO BEDTIME 10/28/21 03/31/22 01/24/22 History famotidine 20 mg tablet 1 tab PO BID 10/28/21 03/31/22 01/24/22 History fluticasone propionate 50 1 spray intranasal DAILY 10/28/21 03/31/22 01/24/22 History mcg/actuation nasal spray,suspension glipizide 5 mg tablet 1 tab PO BIDAC 10/28/21 03/31/22 01/24/22 History lurasidone 60 mg tablet (Latuda) 1 tab PO DAILY 10/28/21 03/31/22 01/24/22 History metformin 500 mg tablet,extended 2 tab PO BIDWM 10/28/21 03/31/22 01/24/22 History release 24 hr oxcarbazepine 300 mg tablet 1 tab PO BID 10/28/21 03/31/22 01/24/22 History promethazine 25 mg tablet 1 tab PO DAILY PRN nausea 10/28/21 03/31/22 Unknown History trazodone 100 mg tablet 1 tab PO BEDTIME 10/28/21 03/31/22 01/23/22 History albuterol sulfate 90 mcg/actuation 2 puff inhalation QID PRN 01/24/22 03/31/22 01/24/22 History aerosol inhaler (Ventolin HFA) Shortness Of Breath diphenhydramine HCl 25 mg capsule 25 mg PO Q6H PRN POST NASAL DRIP 01/24/22 03/31/22 01/24/22 History (Benadryl) tizanidine 4 mg tablet 1 tab PO DAILY PRN muscle spasm 01/24/22 03/31/22 Unknown History Physical Exam Vital Signs and Narrative: Vital Signs: Last Vital Signs Temp 97.9 F 04/06/22 04:40 Pulse 76 04/06/22 04:40 Resp 18 04/06/22 04:40 BP 146/71 H 04/06/22 04:40 Pulse Ox 98 04/06/22 04:40 O2 Del Method 04/06/22 04:40 BMI result Body Mass Index 32.3 Const: General: cooperative and no acute distress Orientation/consciousness: patient oriented x3 Eyes: General: appearance normal, both eyes and all related structures Resp: Other: Auditory wheezing Diminished breath sounds throughout the lungs Effort & Inspection: normal respiratory effort Cardio: Rate: regular rate Rhythm: regular rhythm GI: Palpation (GI): Soft to palpation Auscultation: normal bowel sounds Skin: General skin exam: no rashes or lesions noted Neuro: General: patient oriented x3 Cognition (Neuro): normal cognition Extrem: General: Yes normal to inspection and Yes no pedal edema Results Labs 04/05/22 18:48 04/05/22 18:48 Labs: Laboratory Results - last 24 hr 04/05/22 04/05/22 04/05/22 18:34 18:47 18:47 MCV MCH MCHC RDW Plt Count MPV Immature Gran % (Auto) Neut % (Auto) Lymph % (Auto) [place] % (Auto) Eos % (Auto) Baso % (Auto) Lymph # (Auto) [place] # (Auto) Eos # (Auto) Baso # (Auto) Abs Immat Gran (auto) Absolute Neuts (auto) Absolute Nucleated RBC Nucleated RBC % (auto) D-Dimer High Sensitivty VBG pH VBG pCO2 VBG pO2 VBG HCO3 VBG O2 Saturation VBG Base Excess Anion Gap Estim Creat Clear Calc Estimated GFR POC Glucose Random Glucose Calcium Magnesium Total Bilirubin Direct Bilirubin AST ALT Alkaline Phosphatase Troponin I High Sens < 3.5 B-Natriuretic Peptide < 10 Total Protein Albumin Urine Color Urine Appearance Urine pH Ur Specific [place] Urine Protein Urine Glucose (UA) Urine Ketones Urine Blood Urine Nitrite Ur Leukocyte Esterase Urine RBC Urine WBC Ur Squamous Epith Cells Urine Bacteria Hyaline Casts Influenza Type A (PCR) NEGATIVE Influenza Type B (PCR) NEGATIVE RSV RNA Qual (PCR) NEGATIVE SARS-CoV-2 RNA (RT-PCR) NEGATIVE 04/05/22 04/05/22 04/05/22 18:48 18:48 18:53 MCV 86.1 MCH 27.8 MCHC 32.3 RDW 12.8 Plt Count 332 MPV 9.5 Immature Gran % (Auto) 0.5 H Neut % (Auto) 74.5 H Lymph % (Auto) 15.6 L [place] % (Auto) 5.0 Eos % (Auto) 3.9 Baso % (Auto) 0.5 Lymph # (Auto) 1.5 [place] # (Auto) 0.5 Eos # (Auto) 0.4 Baso # (Auto) 0.1 Abs Immat Gran (auto) 0.05 H Absolute Neuts (auto) 7.4 Absolute Nucleated RBC 0.000 Nucleated RBC % (auto) 0.0 D-Dimer High Sensitivty VBG pH 7.37 VBG pCO2 60 VBG pO2 42 VBG HCO3 35 H VBG O2 Saturation 60.0 VBG Base Excess 7.7 Anion Gap 13 Estim Creat Clear Calc 65.5 Estimated GFR 50 POC Glucose Random Glucose 273 H Calcium 8.8 Magnesium 1.6 Total Bilirubin 0.3 Direct Bilirubin < 0.2 AST 16 ALT 17 Alkaline Phosphatase 185 H Troponin I High Sens B-Natriuretic Peptide Total Protein 6.1 L Albumin 3.5 Urine Color Urine Appearance Urine pH Ur Specific [place] Urine Protein Urine Glucose (UA) Urine Ketones Urine Blood Urine Nitrite Ur Leukocyte Esterase Urine RBC Urine WBC Ur Squamous Epith Cells Urine Bacteria Hyaline Casts Influenza Type A (PCR) Influenza Type B (PCR) RSV RNA Qual (PCR) SARS-CoV-2 RNA (RT-PCR) 01/04/05/22 04/06/22 21:28 22:56 00:45 MCV MCH MCHC RDW Plt Count MPV Immature Gran % (Auto) Neut % (Auto) Lymph % (Auto) [place] % (Auto) Eos % (Auto) Baso % (Auto) Lymph # (Auto) [place] # (Auto) Eos # (Auto) Baso # (Auto) Abs Immat Gran (auto) Absolute Neuts (auto) Absolute Nucleated RBC Nucleated RBC % (auto) D-Dimer High Sensitivty < 150 VBG pH VBG pCO2 VBG pO2 VBG HCO3 VBG O2 Saturation VBG Base Excess Anion Gap Estim Creat Clear Calc Estimated GFR POC Glucose 285 H Random Glucose Calcium Magnesium Total Bilirubin Direct Bilirubin AST ALT Alkaline Phosphatase Troponin I High Sens B-Natriuretic Peptide Total Protein Albumin Urine Color Yellow Urine Appearance Cloudy Urine pH 6.0 Ur Specific [place] 1.020 Urine Protein Trace Urine Glucose (UA) 500 H Urine Ketones Negative Urine Blood Negative Urine Nitrite Negative Ur Leukocyte Esterase Moderate (2+) H Urine RBC 0-2 Urine WBC >50 H Ur Squamous Epith Cells 3-5 Urine Bacteria 1+ Hyaline Casts 0-2 Influenza Type A (PCR) Influenza Type B (PCR) RSV RNA Qual (PCR) SARS-CoV-2 RNA (RT-PCR) Imaging Radiologist's Impressions: Impressions Chest X-Ray 04/05/22 18:33 IMPRESSION: No acute pulmonary process. Assessment and Plan (1) Acute asthma exacerbation: Status: Acute (2) Acute respiratory failure with hypoxia: Status: Acute Plan 51-year-old female with past medical history of asthma presents to the hospital with complaints of shortness of breath cough found to have asthma exacerbation # acute asthma exacerbation - will treat with IV Solu-Medrol, DuoNeb -no chest x-ray evidence of pneumonia - COVID-19 negative - month respiratory status - of note patient has had cardiac arrest in the past due to severe asthma exacerbation attacks, has had a tracheostomy due to the same # acute hypoxic respiratory failure - drops 80% on minimal exertion - likely secondary to asthma - no pneumonia on chest x-ray - will treat with O2 as required, Solu-Medrol, DuoNebs - monitor respiratory status # hyperglycemia - secondary to poorly controlled diabetes - will treat with low-dose sliding insulin - continue home insulin - diabetic diet # bipolar disorder - continue mood stabilizers Patient Eliquis, unclear etiology-will continue DVT prophylaxis: Eliquis Given patient's oxygen requirement, severe asthma exacerbation patient require minimum 2 nights inpatient hospital stay for further management and monitoring Time Spent With Patient Time: Total time managing care of this patient today ____ minutes. Quality Stroke Does the patient have a stroke diagnosis?: No VTE Prior VTE?: No VTE Risk Level:: Medical - moderate - high VTE Device Contraindication: Treatment Not Indicated VTE Drug Contraindication: N/A - Med Ordered
[2022-04-06 06:46] LABS: Basophils Percent Auto 0.3 % (0-2); Eosinophils Absolute Auto 0.1 X10*3/uL (0.0-0.4); Eosinophils Percent Auto 0.5 % (0-4); Hematocrit 36.7 % (37.0-47.0); Hemoglobin 12.1 g/dl (12.0-16.0); Imm Gran Abs Auto 0.07 X10*3/uL (0.00-0.03); Imm Gran Pct Auto 0.6 % (0.0-0.4); Lymphocytes Absolute Auto 0.7 X10*3/uL (1.2-4.9); Lymphocytes Percent Auto 5.8 % (20-40); MANUAL DIFF FLAG SCAN; Mean Corpuscular Hemoglobin 28.1 pg (27.0-33.0); Mean Corpuscular Volume 85.2 fL (80.0-98.0); Mean Platelet Volume 9.7 fL (9.4-12.3); Monocytes Absolute Auto 0.1 X10*3/uL (0.1-1.2); Neutrophils Absolute Auto 10.5 x10*3/uL (2.0-8.3); Neutrophils Percent Auto 91.8 % (45-73); Platelet Count 328 X10*3/uL (160-400); Red Blood Count 4.31 X10*6/uL (4.20-5.50); Red Cell Distribution Width 12.9 % (11.0-16.0); SCAN SMEAR FLAG 1; White Blood Count 11.5 X10*3/uL (4.8-10.8)
[2022-04-06 07:05] LABS: Glucose, Whole Blood 440 mg/dL (60-115)
[2022-04-06 07:16] LABS: SLIDE REVIEW VERIFIED
[2022-04-06 07:25] LABS: Anion Gap 17 (12-20); Blood Urea Nitrogen 20 mg/dL (9-16); Carbon Dioxide 25 mmol/L (22-29); Chloride 95 mmol/L (96-108); Creatinine Clr Calc Pharmacy 55.3; Estimated Glomerular Filt Rate 41; Glucose Random 495 mg/dL (60-115); Potassium 4.7 mmol/L (3.3-5.1); Sodium 132 mmol/L (135-145)
[2022-04-06] MEDS: Insulin Lispro 100 UNIT/ML 3 ML VIAL SUBCUT ×5 (07:34→20:06)
[2022-04-06] MEDS: 0.9 % Sodium Chloride Flush 3 ML SYRINGE IVFLUSH ×3 (07:35→20:17)
--- NOTE | 2022-04-06 08:59 | PHA.MEDREC ---
Pharmacy Consult ? Medication Reconciliation Pharmacy has completed the medication reconciliation.
[2022-04-06] MEDS: Insulin Glargine,Hum.rec.anlog 100 UNIT/ML 10 ML VIAL 10 UNIT SUBCUT (10:25)
[2022-04-06 11:39] LABS: Glucose, Whole Blood 454 mg/dL (60-115)
--- NOTE | 2022-04-06 11:49 | HO.PM.IMPN ---
Subjective Subjective Date of Service: 04/06/22 Interval History: dm with hyperglycemia,asthma Review of Systems sob seems similar ,still feels sob with excersion Physical Exam Vital Signs: Vital Signs: Last Vital Signs Temp 98.6 F 04/06/22 06:56 Pulse 70 04/06/22 11:14 Resp 18 04/06/22 11:14 BP 136/93 H 04/06/22 06:56 Pulse Ox 94 04/06/22 06:56 O2 Del Method 04/06/22 06:56 BMI result Body Mass Index 32.3 Appearance: Alert.? Oriented X3.? still sob.? cvs: rrr, [id number] . res: clear to auscultation ,no rhonchii or wheezing abd: no rebound or guarding ,nt, bs present. ext pulses present , no cyanosis . neuro: axo3 , nonfocal. Objective Data Active Medications Acetaminophen (Acetaminophen 325 Mg Tablet) 650 mg PO Q6H PRN PRN Reason: Pain, Mild (Pain Scale 1-3) Albuterol Sulfate (Albuterol Sulfate (0.083%) 2.5 Mg/3 Ml Vial.Neb) 2.5 mg INHALE Q4H PRN PRN Reason: wheezing Albuterol Sulfate (Albuterol Sulfate 90 Mcg 8 Gm Inhaler) 2 puff INHALE QID PRN PRN Reason: Shortness Of Breath Apixaban (Apixaban 5 Mg Tablet) 5 mg PO BID [facility] Atorvastatin Calcium (Atorvastatin Calcium 10 Mg Tablet) 10 mg PO BEDTIME [facility] Benzonatate (Benzonatate 100 Mg Capsule) 100 mg PO TID PRN PRN Reason: Cough Last Admin: 04/06/22 04:59 Dose: 100 mg Documented By: COTEMA Clonazepam (Clonazepam 1 Mg Tablet) 1 mg PO BID PRN PRN Reason: Anxiety Albuterol Sulfate 2.5 mg/ (Ipratropium [place] 0.5 mg) 0 mg INHALE RQ4H WHILE AWAKE [facility] Last Admin: 04/06/22 11:11 Dose: 1 each Documented By: MICHELLERICC Albuterol Sulfate 2.5 mg/ (Ipratropium [place] 0.5 mg) 0 mg INHALE RQ4H PRN PRN Reason: wheezing,SOB Dextrose (Dextrose 50 % 25 Gm/50 Ml Syringe) 25 gm IVPUSH Q15M PRN; Protocol PRN Reason: per Hypoglycemia Standing Ord. Diphenhydramine HCl (Diphenhydramine Hcl 25 Mg Capsule) 25 mg PO Q6H PRN PRN Reason: POST NASAL DRIP Docusate Sodium (Docusate Sodium 100 Mg Capsule) 100 mg PO DAILY PRN PRN Reason: Constipation Escitalopram Oxalate (Escitalopram Oxalate 20 Mg Tablet) 20 mg PO BEDTIME [facility] Famotidine (Famotidine 20 Mg Tablet) 20 mg PO BID [facility] Fluticasone Propionate (Fluticasone Propionate Nasal 16 Gm [place]) 1 spray NOSTRIL-B DAILY [facility] Fluticasone/Vilanterol (Fluticasone/Vilanterol 200/25 Blst.W.Dev) 1 puff INHALE DAILY [facility] Glucose (Glucose Gel 15 Gm Gel..Gram.) 15 gm PO Q15M PRN; Protocol PRN Reason: per Hypoglycemia Standing Ord. Guaifenesin/Dextromethorphan (Guaifenesin Dm 100/10/5 Ml 5 Ml Syrup) 5 ml PO Q4H PRN PRN Reason: Cough Last Admin: 04/06/22 04:59 Dose: 5 ml Documented By: COTEMA Hydromorphone HCl (Hydromorphone Hcl 0.5 Mg/0.5 Ml Syringe) 0.5 mg IVPUSH Q4H PRN; Protocol PRN Reason: Pain, Mild (Pain Scale 1-3) Insulin Glargine (Insulin Glargine,Hum.Rec.Anlog 100 Unit/Ml 10 Ml Vial) 10 unit SUBCUT DAILY [facility] Last Admin: 04/06/22 10:25 Dose: 10 unit Documented By: NATALIIA Insulin Human Lispro (Insulin Lispro 100 Unit/Ml 3 Ml Vial) 0 unit SUBCUT QIDACHS [facility]; Protocol Last Admin: 04/06/22 07:34 Dose: 10 unit Documented By: NATALIIA Lurasidone HCl (Lurasidone Hcl 20 Mg Tablet) 3 mg PO DAILY [facility] Methylprednisolone Sodium Succinate (Methylprednisolone Sod Succ 40 Mg/Ml Vial) 40 mg IVPUSH Q12H [facility] Last Admin: 04/06/22 01:53 Dose: 40 mg Documented By: SILVIA-ALECIA Ondansetron HCl (Ondansetron Hcl 4 Mg/2 Ml Vial) 4 mg IVPUSH Q8H PRN PRN Reason: Nausea and Vomiting Oxcarbazepine (Oxcarbazepine 300 Mg Tablet) 300 mg PO BID [facility] Pharmacy Consult (Consult Rx Perform Med Rec) 1 each MISCELLANE ONCE PRN PRN Reason: Consult order Promethazine HCl (Promethazine Hcl 25 Mg Tablet) 25 mg PO DAILY PRN PRN Reason: nausea Sodium Chloride (0.9 % Sodium Chloride Flush 3 Ml Syringe) 3 ml IVFLUSH QSHIFT [facility] Last Admin: 04/06/22 07:35 Dose: 3 ml Documented By: NATALIIA Tizanidine HCl (Tizanidine Hcl 4 Mg Tablet) 4 mg PO DAILY PRN PRN Reason: muscle spasm Trazodone HCl (Trazodone Hcl 100 Mg Tablet) 100 mg PO BEDTIME [facility] Labs 04/06/22 06:24 04/06/22 06:24 Labs: Laboratory Results - last 24 hr 04/05/22 04/05/22 04/05/22 18:34 18:47 18:47 MCV MCH MCHC RDW Plt Count MPV Immature Gran % (Auto) Neut % (Auto) Lymph % (Auto) Moore % (Auto) Eos % (Auto) Baso % (Auto) Lymph # (Auto) Moore # (Auto) Eos # (Auto) Baso # (Auto) Abs Immat Gran (auto) Absolute Neuts (auto) Absolute Nucleated RBC Nucleated RBC % (auto) Smear Tech's Comments D-Dimer High Sensitivty VBG pH VBG pCO2 VBG pO2 VBG HCO3 VBG O2 Saturation VBG Base Excess Anion Gap Estim Creat Clear Calc Estimated GFR POC Glucose Random Glucose Calcium Magnesium Total Bilirubin Direct Bilirubin AST ALT Alkaline Phosphatase Troponin I High Sens < 3.5 B-Natriuretic Peptide < 10 Total Protein Albumin Urine Color Urine Appearance Urine pH Ur Specific [place] Urine Protein Urine Glucose (UA) Urine Ketones Urine Blood Urine Nitrite Ur Leukocyte Esterase Urine RBC Urine WBC Ur Squamous Epith Cells Urine Bacteria Hyaline Casts Influenza Type A (PCR) NEGATIVE Influenza Type B (PCR) NEGATIVE RSV RNA Qual (PCR) NEGATIVE SARS-CoV-2 RNA (RT-PCR) NEGATIVE 04/05/22 04/05/22 04/05/22 18:48 18:48 18:53 MCV 86.1 MCH 27.8 MCHC 32.3 RDW 12.8 Plt Count 332 MPV 9.5 Immature Gran % (Auto) 0.5 H Neut % (Auto) 74.5 H Lymph % (Auto) 15.6 L Moore % (Auto) 5.0 Eos % (Auto) 3.9 Baso % (Auto) 0.5 Lymph # (Auto) 1.5 Moore # (Auto) 0.5 Eos # (Auto) 0.4 Baso # (Auto) 0.1 Abs Immat Gran (auto) 0.05 H Absolute Neuts (auto) 7.4 Absolute Nucleated RBC 0.000 Nucleated RBC % (auto) 0.0 Smear Tech's Comments D-Dimer High Sensitivty VBG pH 7.37 VBG pCO2 60 VBG pO2 42 VBG HCO3 35 H VBG O2 Saturation 60.0 VBG Base Excess 7.7 Anion Gap 13 Estim Creat Clear Calc 65.5 Estimated GFR 50 POC Glucose Random Glucose 273 H Calcium 8.8 Magnesium 1.6 Total Bilirubin 0.3 Direct Bilirubin < 0.2 AST 16 ALT 17 Alkaline Phosphatase 185 H Troponin I High Sens B-Natriuretic Peptide Total Protein 6.1 L Albumin 3.5 Urine Color Urine Appearance Urine pH Ur Specific [place] Urine Protein Urine Glucose (UA) Urine Ketones Urine Blood Urine Nitrite Ur Leukocyte Esterase Urine RBC Urine WBC Ur Squamous Epith Cells Urine Bacteria Hyaline Casts Influenza Type A (PCR) Influenza Type B (PCR) RSV RNA Qual (PCR) SARS-CoV-2 RNA (RT-PCR) 04/05/22 04/05/22 04/06/22 21:28 22:56 00:45 MCV MCH MCHC RDW Plt Count MPV Immature Gran % (Auto) Neut % (Auto) Lymph % (Auto) Moore % (Auto) Eos % (Auto) Baso % (Auto) Lymph # (Auto) Moore # (Auto) Eos # (Auto) Baso # (Auto) Abs Immat Gran (auto) Absolute Neuts (auto) Absolute Nucleated RBC Nucleated RBC % (auto) Smear Tech's Comments D-Dimer High Sensitivty < 150 VBG pH VBG pCO2 VBG pO2 VBG HCO3 VBG O2 Saturation VBG Base Excess Anion Gap Estim Creat Clear Calc Estimated GFR POC Glucose 285 H Random Glucose Calcium Magnesium Total Bilirubin Direct Bilirubin AST ALT Alkaline Phosphatase Troponin I High Sens B-Natriuretic Peptide Total Protein Albumin Urine Color Yellow Urine Appearance Cloudy Urine pH 6.0 Ur Specific [place] 1.020 Urine Protein Trace Urine Glucose (UA) 500 H Urine Ketones Negative Urine Blood Negative Urine Nitrite Negative Ur Leukocyte Esterase Moderate (2+) H Urine RBC 0-2 Urine WBC >50 H Ur Squamous Epith Cells 3-5 Urine Bacteria 1+ Hyaline Casts 0-2 Influenza Type A (PCR) Influenza Type B (PCR) RSV RNA Qual (PCR) SARS-CoV-2 RNA (RT-PCR) 04/06/22 04/06/22 04/06/22 06:24 06:24 06:59 MCV 85.2 MCH 28.1 MCHC 33.0 RDW 12.9 Plt Count 328 MPV 9.7 Immature Gran % (Auto) 0.6 H Neut % (Auto) 91.8 H Lymph % (Auto) 5.8 L Moore % (Auto) 1.0 L Eos % (Auto) 0.5 Baso % (Auto) 0.3 Lymph # (Auto) 0.7 L [place] # (Auto) 0.1 Eos # (Auto) 0.1 Baso # (Auto) 0.0 Abs Immat Gran (auto) 0.07 H Absolute Neuts (auto) 10.5 H Absolute Nucleated RBC 0.000 Nucleated RBC % (auto) 0.0 Smear Tech's Comments VERIFIED D-Dimer High Sensitivty VBG pH VBG pCO2 VBG pO2 VBG HCO3 VBG O2 Saturation VBG Base Excess Anion Gap 17 Estim Creat Clear Calc 55.3 Estimated GFR 41 POC Glucose 440 H* Random Glucose 495 H* Calcium 9.0 Magnesium Total Bilirubin Direct Bilirubin AST ALT Alkaline Phosphatase Troponin I High Sens B-Natriuretic Peptide Total Protein Albumin Urine Color Urine Appearance Urine pH Ur Specific [place] Urine Protein Urine Glucose (UA) Urine Ketones Urine Blood Urine Nitrite Ur Leukocyte Esterase Urine RBC Urine WBC Ur Squamous Epith Cells Urine Bacteria Hyaline Casts Influenza Type A (PCR) Influenza Type B (PCR) RSV RNA Qual (PCR) SARS-CoV-2 RNA (RT-PCR) 04/06/22 11:35 MCV MCH MCHC RDW Plt Count MPV Immature Gran % (Auto) Neut % (Auto) Lymph % (Auto) [place] % (Auto) Eos % (Auto) Baso % (Auto) Lymph # (Auto) [place] # (Auto) Eos # (Auto) Baso # (Auto) Abs Immat Gran (auto) Absolute Neuts (auto) Absolute Nucleated RBC Nucleated RBC % (auto) Smear Tech's Comments D-Dimer High Sensitivty VBG pH VBG pCO2 VBG pO2 VBG HCO3 VBG O2 Saturation VBG Base Excess Anion Gap Estim Creat Clear Calc Estimated GFR POC Glucose 454 H* Random Glucose Calcium Magnesium Total Bilirubin Direct Bilirubin AST ALT Alkaline Phosphatase Troponin I High Sens B-Natriuretic Peptide Total Protein Albumin Urine Color Urine Appearance Urine pH Ur Specific [place] Urine Protein Urine Glucose (UA) Urine Ketones Urine Blood Urine Nitrite Ur Leukocyte Esterase Urine RBC Urine WBC Ur Squamous Epith Cells Urine Bacteria Hyaline Casts Influenza Type A (PCR) Influenza Type B (PCR) RSV RNA Qual (PCR) SARS-CoV-2 RNA (RT-PCR) Assessment and Plan (1) Acute asthma exacerbation: Status: Acute (2) Acute respiratory failure with hypoxia: Status: Acute (3) Hyperglycemia: Status: Acute Plan 51-year-old female with past medical history of asthma presents to the hospital with complaints of shortness of breath cough found to have asthma exacerbation # acute asthma exacerbation - will treat with IV Solu-Medrol, DuoNeb -no chest x-ray evidence of pneumonia - COVID-19 negative - month respiratory status - of note patient has had cardiac arrest in the past due to severe asthma exacerbation attacks, has had a tracheostomy due to the same. # acute hypoxic respiratory failure - drops 80% on minimal exertion - likely secondary to asthma - no pneumonia on chest x-ray - will treat with O2 as required, Solu-Medrol, DuoNebs - monitor respiratory status # dm with hyperglycemia - secondary to poorly controlled diabetes,Hba1c levels - will treat with low-dose sliding insulin - continue home insulin - diabetic diet # bipolar disorder - continue mood stabilizers Patient Eliquis, unclear etiology-will continue DVT prophylaxis:? Eliquis inpatient need:acute hypoxic respiratory failure/asthma exacerbation, dm with hyperglycemia-need iv steriods ,nebs ,fs monitering due to hyperlgycemia Time Spent With Patient Time: Total time managing care of this patient today ____ minutes. Quality Stroke Does the patient have a stroke diagnosis?: No VTE Prior VTE?: No VTE Risk Level:: Medical - moderate - high VTE Device Contraindication: Treatment Not Indicated VTE Drug Contraindication: N/A - Med Ordered
[2022-04-06] MEDS: HYDROmorphone HCl 0.5 MG/0.5 ML SYRINGE IVPUSH ×3 (11:56→20:17)
--- NOTE | 2022-04-06 13:18 | MHC.CM.NN ---
met with pt who lives with her husb and and dgter her dgter is tea blender 1 hr a day she has a ride home is vax x 2 dc plan home w/tea blender
[2022-04-06 16:04] LABS: Glucose, Whole Blood 444 mg/dL (60-115)
[2022-04-06 19:39] LABS: Glucose, Whole Blood 449 mg/dL (60-115)
[2022-04-06] MEDS: Famotidine 20 MG TABLET PO (20:04)
[2022-04-06] MEDS: traZODone HCL 100 MG TABLET PO (20:04)
[2022-04-06] MEDS: OXcarbazepine 300 MG TABLET PO (20:04)
[2022-04-06] MEDS: Escitalopram Oxalate 20 MG TABLET PO (20:04)
[2022-04-06] MEDS: Atorvastatin Calcium 10 MG TABLET PO (20:04)
[2022-04-06] MEDS: Apixaban 5 MG TABLET PO (20:04)
[2022-04-06] MEDS: Insulin Lispro 100 UNIT/ML 3 ML VIAL 10 UNIT SUBCUT ×2 (20:06→23:23)
[2022-04-06 21:13] LABS: Glucose, Whole Blood 410 mg/dL (60-115)
[2022-04-07 00:27] VITALS: BP 128/67; PULSE 93; RESP 18; TEMP 37.3; O2SAT 94
[2022-04-07] MEDS: HYDROmorphone HCl 0.5 MG/0.5 ML SYRINGE IVPUSH ×3 (00:31→09:02)
[2022-04-07 03:32] VITALS: BP 116/56; PULSE 79; RESP 20; TEMP 36.2; O2SAT 94
[2022-04-07 04:56] VITALS: RESP 16
[2022-04-07 07:05] VITALS: BP 118/67; PULSE 80; RESP 20; TEMP 36.6; O2SAT 94
[2022-04-07 07:14] LABS: Glucose, Whole Blood 296 mg/dL (60-115)
[2022-04-07] MEDS: Insulin Lispro 100 UNIT/ML 3 ML VIAL SUBCUT ×2 (07:34)
[2022-04-07] MEDS: 0.9 % Sodium Chloride Flush 3 ML SYRINGE IVFLUSH (07:35)
[2022-04-07] MEDS: Insulin Glargine,Hum.rec.anlog 100 UNIT/ML 10 ML VIAL 10 UNIT SUBCUT (07:35)
[2022-04-07] MEDS: predniSONE 20 MG TABLET 40 MG PO (07:36)
[2022-04-07] MEDS: OXcarbazepine 300 MG TABLET PO (07:36)
[2022-04-07] MEDS: Lurasidone HCl 20 MG TABLET 60 MG PO (07:36)
[2022-04-07] MEDS: Apixaban 5 MG TABLET PO (07:37)
[2022-04-07] MEDS: Famotidine 20 MG TABLET PO (07:37)
[2022-04-07] MEDS: Fluticasone Propionate Nasal 16 GM SPRAY 1 SPRAY NOSTRIL-B (07:40)
--- NOTE | 2022-04-07 08:12 | P.CDIC_ITS ---
CDI Concurrent Query Documentation Clarification: PHYSICIAN'S DOCUMENTATION REQUEST Date of Query: 04/07/22 0813 Patient Name: Anna Marie Black Admit Date: 04/06/22 Dear Doctor, Please review the following and provide your response in the progress notes. Clinical Indicators: Risk Factors/Clinical Indicators/Treatments PN 04/06 - Assessment/plan: Acute asthma exacerbation. Short of breath, cough, admit. IV Solumedrol, Duoneb Based on the above, please clarify in the Progress Notes further specificity regarding the type and acuity of the asthma: Type/ Specifics: * Mild intermittent - less than 2x/week * Mild persistent - more than 2x/week but not daily * Moderate persistent - daily and may restrict physical activity * Severe persistent - throughout the day with frequent attacks, limiting activities * Exercise induced * Other ? please specify * Unable to determine Use of terms such as suspected, likely, concern for, or probable (associated with a specific diagnosis that is being evaluated, monitored, or treated as if it exists) are acceptable and can be coded in the inpatient setting, when documented at the time of discharge. Thank you, Carol Izaguirre [facility], CDIS Extension: [phone] Please use your independent medical judgment in providing your response. THIS QUERY IS PART OF THE PERMANENT MEDICAL RECORD Provider Response: Other Other Diagnosis: Acute asthma exacerbation(mild intermittent asthma).
[2022-04-07] MEDS: Fluticasone/Vilanterol 200/25 BLST.W.DEV 1 PUFF INHALE (08:27)
[2022-04-07 08:31] VITALS: PULSE 62; RESP 20; O2SAT 94
[2022-04-07 09:02] VITALS: RESP 16
[2022-04-07] MEDS: glipiZIDE 5 MG TABLET PO (09:03)
--- NOTE | 2022-04-07 10:46 | MHC.CM.PN ---
pt to be dcd today will nor skilled servceis when dcd
[2022-04-07 11:09] LABS: Glucose, Whole Blood 294 mg/dL (60-115)
--- NOTE | 2022-04-07 11:32 | P.DS_ITS ---
DS: Providers Provider Date of Service: 04/07/22 Date of admission: 04/06/22 00:47 Primary care physician: Megan Cummings MD DS: Diagnosis Discharge Diagnosis (1) Acute asthma exacerbation: Status: Acute (2) Acute respiratory failure with hypoxia: Status: Acute (3) Hyperglycemia: Status: Acute (4) Mild intermittent asthma: Status: Acute DS: Summary Hospital Course Hospital Course: 51-year-old female with past medical history of asthma, bipolar disorder, diabetes,? 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 Patient reports that as a result of the cough she has also developed severe back pain that is worse when she coughs.? She reports that she has had symptoms for few weeks but has not had a chance to meet with her primary care physician is as a result she has also had poor glucos e control as she ran out of her insulin.? She reports no fever no chill, she has a cough that is productive of yellow sputum, reports wheezing, denies any abdominal pain nausea or vomiting, no diarrhea constipation, no urinary symptoms and no lower extremity edema. Patient reports that she does have access to oxygen at bedtime but previously has not had the need to use it.? On arrival to the ED patient was found to have a heart rate of 120, respiratory rate of 24, temperature of 98.4 degrees, blood pressure 138/84, satting 90% on room air, dropping to 88 on minimal exertion Labs are significant for WBC count of 9.9, labs otherwise unremarkable, glucose of 285, UA shows leukocytes Estrace and WBC Chest x-ray shows no acute pulmonary process Patient received multiple rounds of breathing treatments as well as IV Mag with minimal relief of her wheezing therefore she will be admitted for further management. Hospital course: Patient was admitted for acute asthma exacerbation(mild intermittent asthma).- started on IV nebs, steroids, oxygen support seems to be improved significantly: Now it is are baseline, says that shortness of breath improved significantly. Going home with p.o. steroids. Diabetes with hyperglycemia: Possibly related to IV steroid use. Fingersticks are improving after switching to p.o. steroids and starting her home glipizide. Continue home insulin regimen, monitor hemoglobin A1c outpatient with PCP further management as per PCP. Follow-up with PCP for management of above mentioned conditions. Plan: Complete course of steroids Monitor hemoglobin A1c and fingersticks out patiently and adjust insulin regimen if needed outpatient with PCP. Assessment and plan coordination time spent 50 minute. Above management discussed with the patient in detail length she understand and in agreement with the plan. Time Spent with Patient Time attestation: Total time managing care of this patient today ____ minutes. Discharge coordination time: Greater than 30 minutes Quality: Safe Use of Opioids Does Pt have an Active Cancer Diagnosis on the Problem List?: No Quality: Stroke Does the patient have a stroke diagnosis?: No Physical Exam Vital Signs: Vital Signs: Last Vital Signs Temp 97.9 F 04/07/22 07:05 Pulse 62 04/07/22 08:31 Resp 16 04/07/22 09:02 BP 118/67 04/07/22 07:05 Pulse Ox 94 04/07/22 07:05 O2 Del Method 04/07/22 07:05 BMI result Body Mass Index 32.3 ? Appearance: Alert.? Oriented X3.? still sob.? cvs: rrr, [id number] . res: clear to auscultation ,no rhonchii or wheezing abd: no rebound or guarding ,nt, bs present. ext pulses present , no cyanosis . neuro: axo3 , nonfocal. DS: Data Data Completed and Pending Completed studies during hospitalization [Text1]: Procedures Dilation of Left Ureter with Intraluminal Device, Via Natural or Artificial Opening Endoscopic (06/11/21) Fluoroscopy of Left Kidney, Ureter and Bladder (06/11/21) Labs on day of discharge: Laboratory Results - last 24 hr 04/06/22 04/06/22 04/06/22 11:35 15:56 19:35 POC Glucose 454 H* 444 H* 449 H* 04/06/22 04/07/22 04/07/22 21:08 07:07 11:00 POC Glucose 410 H* 296 H 294 H Preliminary micro results at discharge 04/06/22 Unknown Urine Culture - Preliminary Urine clean catch - Urine guerra top Gram negative traci Imaging Chest x-ray: Radiologist's impression: ITS Impressions Chest X-Ray 04/05/22 18:33 IMPRESSION: No acute pulmonary process. Discharge Plan Discharge Anticipated Discharge Date/Time: 04/07/22 11:14 Patient Disposition: Home, Self-Care Discharge Diagnosis: Acute asthma exacerbation(mild intermittent asthma) Referrals: Megan Mosqueda MD [Primary Care Provider] - 1 Week Discharge Medications: New prednisone 20 mg tablet 40 mg PO DAILY Qty: 8 0RF Continued tizanidine 4 mg tablet 1 tab PO DAILY PRN (Reason: muscle spasm) albuterol sulfate [Ventolin HFA] 90 mcg/actuation HFA aerosol inhaler 2 puff inhalation QID PRN (Reason: Shortness Of Breath) diphenhydramine HCl [Benadryl] 25 mg Capsule 25 mg PO Q6H PRN (Reason: POST NASAL DRIP) albuterol sulfate 2.5 mg /3 mL (0.083 %) solution for nebulization 1 vial inhalation Q4H PRN (Reason: wheezing) atorvastatin 10 mg tablet 1 tab PO DAILY clonazepam 1 mg tablet 1 tab PO BID PRN (Reason: Anxiety) oxcarbazepine 300 mg tablet 1 tab PO BID famotidine 20 mg tablet 1 tab PO BID trazodone 100 mg tablet 1 tab PO BEDTIME promethazine 25 mg tablet 1 tab PO DAILY PRN (Reason: nausea) fluticasone propionate 50 mcg/actuation spray,suspension 1 spray intranasal DAILY glipizide 5 mg tablet 1 tab PO BIDAC escitalopram oxalate 20 mg tablet 1 tab PO BEDTIME Latuda 60 mg tablet 1 tab PO DAILY Eliquis 5 mg tablet 5 mg PO BID Qty: 60 0RF fluticasone propion-salmeterol [Advair Diskus] 500-50 mcg/dose blister with device 1 puff INHALATION BID insulin lispro [Humalog KwikPen Insulin] 100 unit/mL insulin pen 1 sliding scale dose subcut USEASDIRECTD Qty: 15 0RF Rx Instructions: Administer 3 times day before meals after checking glucose: 0 units if <150 2 units if 150-199 4 units if 200-249 6 units if 250-299 8 units if 300-349 10 units if 350-399 Call PCP if >400 insulin glargine [Lantus Solostar U-100 Insulin] 100 unit/mL (3 mL) insulin pen 10 unit subcut QAM Qty: 15 0RF Discharge Orders: Discharge Order (Routine); Ordered 04/07/22 Ordered By: Neetu Cota Diet: Advance to usual diet Activity on Discharge: As tolerated Stand Alone Forms: Patient Portal Discharge page Care Plan Goals: Patient was admitted for acute asthma exacerbation-started on IV nebs, steroids, oxygen support seems to be improved significantly: Now it is are baseline, says that shortness of breath improved significantly. Going home with p.o. steroids. Diabetes with hyperglycemia: Possibly related to IV steroid use. Fingersticks are improving after switching to p.o. steroids and starting her home glipizide. Continue home insulin regimen, monitor hemoglobin A1c outpatient with PCP further management as per PCP. Above management discussed with the patient in detail length she understand and in agreement with the plan. Health Concerns: As above. Plan of Treatment: As above. Assessment: As above.
== END 2022-04-07 12:59 | disposition home or self-care (01) | DRG 141 ==
LOC: HO.ED 04-06 00:03 → HO.EDOVER 04-06 00:59 → HO.IMC 04-06 03:40
PROVIDERS: Physician Assistant; Admitting Provider Internal Medicine; Emergency Provider Emergency Medicine; PCP Internal Medicine; Visit Provider Internal Medicine
DX: J45.21 Mild intermittent asthma with (acute) exacerbation (principal); J96.01 Acute respiratory failure with hypoxia; Z93.0 Tracheostomy status; F31.9 Bipolar disorder, unspecified; E11.65 Type 2 diabetes mellitus with hyperglycemia; Z20.822 Contact with and (suspected) exposure to COVID-19; Z79.01 Long term (current) use of anticoagulants; Z79.51 Long term (current) use of inhaled steroids; Z79.4 Long term (current) use of insulin; Z79.899 Other long term (current) drug therapy
CPT/HCPCS: 0241U; 36415; 71045; 80048; 80076; 81001; 82803; 82947; 83735; 83880; 84484; 85025; 85379; 87086; 87088; 87186; 93005; 94640; 96374; 96375; 96376; 99222; 99285; J1170; J2270; J2920

== ENCOUNTER 2022-07-04 13:51 | Emergency (ER) | payer OTHER, SELFPAY ==
[2022-07-04] VITALS (8 sets, daily range): BP systolic 127–152; BP diastolic 63–101; PULSE 92–120; RESP 18–22; TEMP 37.4; O2SAT 89–98; BMI 35.4
--- NOTE | ~2022-07-04 | XR_ITS ---
EXAMINATION: XR CHEST CLINICAL INFORMATION: Chest pain. COMPARISON: 04/05/2022 chest radiograph. TECHNIQUE: 2 views of the chest were obtained. FINDINGS: Support devices: A tracheostomy tube is noted in place. No significant abnormality is noted involving the heart, lungs, mediastinum, bony thorax or soft tissues. XR/XR chest 2V IMPRESSION: No acute cardiopulmonary process.
--- NOTE | ~2022-07-04 | CT_ITS ---
EXAMINATION: CT ABDOMEN AND PELVIS WITHOUT CONTRAST CLINICAL INFORMATION: flank pain. kidney stones? pyelonephritis?. COMPARISON: 10/27/2021. TECHNIQUE: Multidetector volumetric imaging was performed from the superior aspect of the liver through the pubic symphysis without contrast per request. Sagittal and coronal reformatted images were obtained on the technologist workstation. This CT examination was performed using dose optimization techniques as appropriate, variously including the following: *Automated exposure control *Adjustment of mA and/or kV according to patient size (this includes techniques or standardized protocols for targeted exams where dose is matched to indication/reason for exam; i.e. extremities or head) *Use of iterative reconstruction technique DLP: 978 mGy-cm. FINDINGS: LUNG BASES: Patchy airspace changes in the left lingula is nonspecific. Early or atypical infectious etiology cannot be entirely excluded LIVER, GALLBLADDER, BILIARY TREE: Mild diffuse fatty infiltration liver but no focal hepatic lesion or biliary ductal dilatation seen The gallbladder is not visualized and presumably surgically absent. PANCREAS: Atrophic but otherwise grossly unremarkable SPLEEN: Unremarkable. ADRENAL GLANDS: Unremarkable. KIDNEYS AND URETERS: The kidneys are normal in size, shape, and attenuation. No hydronephrosis, hydroureter, or calculi seen. No perinephric stranding. BLADDER: Unremarkable. GASTROINTESTINAL TRACT: Rectosigmoid colon is decompressed although cannot exclude mild wall thickening. No pericolonic inflammatory changes. No obstructive changes to the bowel. ABDOMINAL WALL: Marked rectus diastases and herniation of abdominal contents extending to the level of the skin surface as noted on prior study. I do not appreciate any obstruction from this large hernia sac LYMPHOVASCULAR STRUCTURES: IVC filter noted. PELVIC VISCERA: Metallic linear 1.7 cm density likely representing a residual portion of the previously noted IUD within the endometrial cavity. The majority of the previously noted IUD is otherwise now absent. Tiny calcified fibroids are incidentally seen OSSEUS STRUCTURES: Degenerative changes at the level of L4/L5 again noted. CT/CT abdomen pelvis wo IV con IMPRESSION: 1. No acute intra-abdominal process seen. No renal or ureteric calculi. No obstructive changes to the kidneys. 2. The rectosigmoid colon is decompressed although cannot exclude mild wall thickening. No pericolonic inflammatory changes. 3. Patchy airspace disease in the left lingula is nonspecific. Early or atypical infectious etiology cannot be entirely excluded. 4. Tiny linear metallic structure within the endometrial cavity may represent a small retained portion of the previous IUD. This could be clinically correlated. This critical result was discussed with Isaias FRANZ at 07/04/2022 6:51 PM and it was ascertained that the content and urgency of the report was understood at the time of direct communication.
--- NOTE | 2022-07-04 13:55 | ED_ITS ---
HPI - General Adult General Chief complaint: Upper Respiratory Symptoms <Chad Lama - Last Filed: 07/04/22 13:58> Stated complaint: Diff breathing/Kidney pain <Chad Lama - Last Filed: 07/04/22 13:58> Time Seen by Provider: 07/04/22 16:32 <Chad Lama - Last Filed: 07/04/22 13:58> Source: patient <POLO An - Last Filed: 07/05/22 01:49> Mode of arrival: ambulatory <POLO An - Last Filed: 07/05/22 01:49> Limitations: no limitations <POLO An Last Filed: 07/05/22 01:49> History of Present Illness HPI narrative: 51 yold female with pmh of asthma, kidney stones, cardiac arrest, has trachea presents to the ED for shortness of breath, bodyaches, coughing, and left flank pain with increase urinary frequency. patient states no recent surgery, leg swelling, recent travel, recent surgery or calf pain. patient is on eliquis. Patient denies coughing up blood. She denies pleurisy <POLO An - Last Filed: 07/05/22 01:49> Related Data Home medications: Home Medications Medication Instructions Recorded Confirmed albuterol sulfate 2.5 mg/3 mL 1 vial inhalation Q4H PRN wheezing 10/28/21 04/06/22 (0.083 %) solution for nebulization atorvastatin 10 mg tablet 1 tab PO DAILY 10/28/21 04/06/22 clonazepam 1 mg tablet 1 tab PO BID PRN Anxiety 10/28/21 04/06/22 escitalopram oxalate 20 mg tablet 1 tab PO BEDTIME 10/28/21 04/06/22 famotidine 20 mg tablet 1 tab PO BID 10/28/21 04/06/22 fluticasone propionate 50 1 spray intranasal DAILY 10/28/21 04/06/22 mcg/actuation nasal spray,suspension glipizide 5 mg tablet 1 tab PO BIDAC 10/28/21 04/06/22 lurasidone 60 mg tablet (Latuda) 1 tab PO DAILY 10/28/21 04/06/22 oxcarbazepine 300 mg tablet 1 tab PO BID 10/28/21 04/06/22 promethazine 25 mg tablet 1 tab PO DAILY PRN nausea 10/28/21 04/06/22 trazodone 100 mg tablet 1 tab PO BEDTIME 10/28/21 04/06/22 albuterol sulfate 90 mcg/actuation 2 puff inhalation QID PRN 01/24/22 04/06/22 aerosol inhaler (Ventolin HFA) Shortness Of Breath diphenhydramine HCl 25 mg capsule 25 mg PO Q6H PRN POST NASAL DRIP 01/24/22 04/06/22 (Benadryl) tizanidine 4 mg tablet 1 tab PO DAILY PRN muscle spasm 01/24/22 04/06/22 fluticasone 500 mcg-salmeterol 50 1 puff inhalation BID 04/06/22 04/06/22 mcg/dose blistr powdr for inhalation (Advair Diskus) Previous Rx's Medication Instructions Recorded apixaban 5 mg tablet (Eliquis) 5 mg PO BID #60 tabs 03/22/22 insulin glargine 100 unit/mL (3 10 unit (0.1 mL) subcut QAM #15 mL 04/07/22 mL) subcutaneous pen (Lantus Solostar U-100 Insulin) insulin lispro 100 unit/mL 1 sliding scale dose subcut 04/07/22 subcutaneous pen (Humalog KwikPen USEASDIRECTD #15 mL (U-100) Insulin) prednisone 20 mg tablet 40 mg PO DAILY #8 tabs 04/07/22 benzonatate 200 mg capsule 200 mg PO BID PRN cough 5 days #15 07/04/22 caps cefpodoxime 200 mg tablet 200 mg PO Q12H 7 days #14 tabs 07/04/22 oxycodone 5 mg tablet 5 mg PO TID PRN pain 3 days #9 tabs 07/04/22 prednisone 20 mg tablet 60 mg PO DAILY 7 days #21 tabs 07/04/22 <Chad Lama - Last Filed: 07/04/22 13:58> Allergies/adverse reactions: Allergies Allergy/AdvReac Type Severity Reaction Status Date / Time pantoprazole Allergy Unknown Verified 07/04/22 13:55 <Chad Lama - Last Filed: 07/04/22 13:58> [facility] Past Medical History Medical History: Medical History Asthma Bipolar 1 disorder Diabetes History of cardiac arrest Kidney stones Substance abuse Takotsubo cardiomyopathy UTI (urinary tract infection) Wound drainage <Chad Lama - Last Filed: 07/04/22 13:58> Surgical History: Surgical History H/O exploratory laparotomy S/P cholecystectomy S/P ureteral stent placement <Chad Lama - Last Filed: 07/04/22 13:58> Family History Family History: Family History Mother No pertinent family history Father No pertinent family history <Chad Lama - Last Filed: 07/04/22 13:58> Social History Social History: Social History Household Members: Spouse Household Members Other:: 1 Housing: Apartment Do you 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) Alcohol intake: never Patient Tobacco Use Status: Never used Tobacco Smoked in Last 30 Days: No Second Hand Smoke Exposure: Yes Advance Directives: Yes Advance Directives on File: No Advance Directives Date on File: 01/25/22 service: No Current occupational status: disabled <Chad Lama - Last Filed: 07/04/22 13:58> Physical Exam ED Vital Signs: Vital Signs - 24 hr 07/04/22 13:55 07/04/22 14:20 07/04/22 14:20 Temperature 99.4 F Pulse Rate 120 H 111 H Respiratory Rate 22 H 22 H Blood Pressure 152/101 H 127/75 Pulse Oximetry 89 L 92 Oxygen Delivery Method Room Air Trach Collar Oxygen Flow Rate 07/04/22 16:04 07/04/22 17:16 07/04/22 18:39 Temperature Pulse Rate 107 H 96 Respiratory Rate 20 22 H 20 Blood Pressure 139/73 132/63 Pulse Oximetry 98 92 Oxygen Delivery Method Trach Collar Room Air Oxygen Flow Rate 2 07/04/22 20:46 07/04/22 22:19 07/04/22 23:08 Temperature Pulse Rate 92 100 92 Respiratory Rate 18 19 22 H Blood Pressure 133/75 140/80 H Pulse Oximetry 91 L 96 Oxygen Delivery Method Room Air Trach Collar Oxygen Flow Rate 2 BMI result Body Mass Index 35.4 <Chad Lama - Last Filed: 07/04/22 13:58> Vital Signs - 24 hr 07/04/22 13:55 07/04/22 14:20 07/04/22 14:20 Temperature 99.4 F Pulse Rate 120 H 111 H Respiratory Rate 22 H 22 H Blood Pressure 152/101 H 127/75 Pulse Oximetry 89 L 92 Oxygen Delivery Method Room Air Trach Collar Oxygen Flow Rate 07/04/22 16:04 07/04/22 17:16 07/04/22 18:39 Temperature Pulse Rate 107 H 96 Respiratory Rate 20 22 H 20 Blood Pressure 139/73 132/63 Pulse Oximetry 98 92 Oxygen Delivery Method Trach Collar Room Air Oxygen Flow Rate 2 07/04/22 20:46 07/04/22 22:19 07/04/22 23:08 Temperature Pulse Rate 92 100 92 Respiratory Rate 18 19 22 H Blood Pressure 133/75 140/80 H Pulse Oximetry 91 L 96 Oxygen Delivery Method Room Air Trach Collar Oxygen Flow Rate 2 BMI result Body Mass Index 35.4 <POLO An Last Filed: 07/05/22 01:49> Const General: cooperative, healthy appearing, comfortable, no acute distress, well developed, alert and awake <POLO An Last Filed: 07/05/22 01:49> Orientation/consciousness: oriented to person, oriented to place, oriented to time and patient oriented x3 <POLO An Last Filed: 07/05/22 01:49> [facility] Head: Yes normal to inspection, Yes No palpable skull fracture present, Yes normocephalic, Yes atraumatic and No abrasion <POLO An Last Filed: 07/05/22 01:49> Eyes General: appearance normal, both eyes and all related structures <POLO An Last Filed: 07/05/22 01:49> Neck Neck: Yes normal visual inspection, Yes full ROM, Yes no lymphadenopathy, Yes no meningeal signs, Yes trachea midline, Yes supple, No anterior neck swelling and No tender <POLO An Last Filed: 07/05/22 01:49> Chest Chest palpation & inspection: normal inspection of the chest and normal palpation of entire chest wall <POLO An Last Filed: 07/05/22 01:49> Resp Effort & Inspection: normal respiratory effort and able to speak in complete sentences <POLO An Last Filed: 07/05/22 01:49> Auscultation: wheezes expiratory wheezes (diffuse) <POLO An Last Filed: 07/05/22 01:49> Cardio Jugular venous distension: no JVD <POLO An Last Filed: 07/05/22 01:49> Heart sounds: S1 normal heart sound present and S2 normal heart sound present <POLO An Clive Last Filed: 07/05/22 01:49> GI Inspection: Yes normal to inspection and No abdominal wall ecchymosis <POLO An Last Filed: 07/05/22 01:49> Palpation (GI): Soft to palpation, not firm, nontender, no guarding and not rigid <POLO An Clive Last Filed: 07/05/22 01:49> General: Yes CVA tenderness (left) and Yes no CVA tenderness <POLO An L ast Filed: 07/05/22 01:49> Back/Spine/Pelvis Back: no CVA tenderness, CVA tenderness (left) and No back tenderness <POLO An Last Filed: 07/05/22 01:49> Skin General skin exam: no rashes or lesions noted and elasticity normal <POLO An Last Filed: 07/05/22 01:49> Neuro General: oriented to person, oriented to place, oriented to time, patient oriented x3, gait normal, tone normal, moves all extremities, Normal light touch and pain sensation, no meningeal signs, no focal motor deficits, CN's II-XI intact bilate rally and normal sensation to monofilament <POLO An Last Filed: 07/05/22 01:49> Extrem Other: bilateral lower extremities negative for swelling, pitting edema, or calf tenderness. <POLO An Last Filed: 07/05/22 01:49> General: Yes normal to inspection and Yes full ROM <POLO An - Last Filed: 07/05/22 01:49> Psych Appearance: grossly normal, well kempt and not disheveled <POLO An - Last Filed: 07/05/22 01:49> Course Course Course Narrative: 51-year-old female past medical history significant for asthma in bipolar disorder, diabetes, takotsubo cardiomyopathy, tracheostomy in place presents for evaluation of shortness of breath, the weakness also complains of left flank pain. Plan for chest x-ray, labs, UA. Patient's sat is as low as 88% on room air improved with coughing. She was tachycardic to 120. Patient will be brought back to a room <Chad Lama - Last Filed: 07/04/22 13:58> Reevaluation(s) Reevaluation #1: UA shows UTI. Patient is sent for CT scan to rule out kidney stones. Patient has profuse wheezing given Solu-Medrol, albuterol,and magneisum. At times patient O2 sat desaturate when she coughs. CT scan negative for kidney stones. Chest x-ray negative pneumonia per 1st troponin negative. D-dimer n egative. Patient is on Eliquis. Neck pain on control. Patient received 8 of morphine 1 mg Dilaudid <POLO An - Last Filed: 07/05/22 01:49> Time: 22:54 <POLO An - Last Filed: 07/05/22 01:49> Reevaluation #2: Patient wheezing resolved and feels betters.repeat troponin is negative. patient hypoxic readings was when she was lying flat with extensive coughing and not good pleth on the monitor. After asthma treatment with trachea suctioning 02 saturation 95-96% on her trachea when sitting up and walking around the ED. polo yarbrough would like to be discharged. <POLO An - Last Filed: 07/05/22 01:49> Time: 11:25 <POLO An - Last Filed: 07/05/22 01:49> Medications Administered Discontinued Medications Generic Name Dose Route Start Last Admin Trade Name Freq PRN Reason Stop Dose Admin Albuterol/Ipratropium 3 ml 07/04/22 19:31 07/04/22 20:45 Albuterol/Iprat 2.5/0.5mg 3 Ml Ampul.Neb INHALE 07/04/22 19:32 3 ml ONCE ONE Administration Hydromorphone HCl 1 mg 07/04/22 19:41 07/04/22 19:46 Hydromorphone Hcl 1 Mg/Ml Syringe IVPUSH 07/04/22 19:42 1 mg ONCE ONE Administration Protocol Ceftriaxone Sodium 1 gm/ 50 mls @ 100 mls/hr 07/04/22 16:54 07/04/22 18:43 Sodium Chloride IV 07/04/22 17:23 Infused ONCE ONE Infusion Sodium Chloride 1,000 mls @ 999 mls/hr 07/04/22 16:57 07/04/22 23:05 Ns IV 07/04/22 17:57 Infused .Q1H1M STA Infusion Sodium Chloride 1,000 mls @ 999 mls/hr 07/04/22 16:58 07/05/22 00:11 Ns IV 07/04/22 17:58 Not Given .Q1H1M STA Magnesium Sulfate/Dextrose 1 gm in 100 mls @ 100 mls/hr 07/04/22 19:31 07/04/22 21:22 Magnesium Sulfate/D5w IV 07/04/22 20:30 Infused ONCE ONE Infusion Methylprednisolone Sodium Succinate 125 mg 07/04/22 19:31 07/04/22 19:46 Methylprednisolone Sod Succ 125 Mg/2 Ml Vial IVPUSH 07/04/22 19:32 125 mg ONCE ONE Administration Morphine Sulfate 4 mg 07/04/22 17:03 07/04/22 17:16 Morphine Sulfate 4 Mg/Ml Cartridge IVPUSH 07/04/22 17:04 4 mg ONCE ONE Administration Protocol Morphine Sulfate 4 mg 07/04/22 22:53 07/04/22 23:05 Morphine Sulfate 4 Mg/Ml Cartridge IVPUSH 07/04/22 22:54 4 mg ONCE ONE Administration Protocol <Chad Lama - Last Filed: 07/04/22 13:58> Medications Administered Discontinued Medications Generic Name Dose Route Start Last Admin Trade Name Freq PRN Reason Stop Dose Admin Albuterol/Ipratropium 3 ml 07/04/22 19:31 07/04/22 20:45 Albuterol/Iprat 2.5/0.5mg 3 Ml Ampul.Neb INHALE 07/04/22 19:32 3 ml ONCE ONE Administration Hydromorphone HCl 1 mg 07/04/22 19:41 07/04/22 19:46 Hydromorphone Hcl 1 Mg/Ml Syringe IVPUSH 07/04/22 19:42 1 mg ONCE ONE Administration Protocol Ceftriaxone Sodium 1 gm/ 50 mls @ 100 mls/hr 07/04/22 16:54 07/04/22 18:43 Sodium Chloride IV 07/04/22 17:23 Infused ONCE ONE Infusion Sodium Chloride 1,000 mls @ 999 mls/hr 07/04/22 16:57 07/04/22 23:05 Ns IV 07/04/22 17:57 Infused .Q1H1M STA Infusion Sodium Chloride 1,000 mls @ 999 mls/hr 07/04/22 16:58 07/05/22 00:11 Ns IV 07/04/22 17:58 Not Given .Q1H1M STA Magnesium Sulfate/Dextrose 1 gm in 100 mls @ 100 mls/hr 07/04/22 19:31 07/04/22 21:22 Magnesium Sulfate/D5w IV 07/04/22 20:30 Infused ONCE ONE Infusion Methylprednisolone Sodium Succinate 125 mg 07/04/22 19:31 07/04/22 19:46 Methylprednisolone Sod Succ 125 Mg/2 Ml Vial IVPUSH 07/04/22 19:32 125 mg ONCE ONE Administration Morphine Sulfate 4 mg 07/04/22 17:03 07/04/22 17:16 Morphine Sulfate 4 Mg/Ml Cartridge IVPUSH 07/04/22 17:04 4 mg ONCE ONE Administration Protocol Morphine Sulfate 4 mg 07/04/22 22:53 07/04/22 23:05 Morphine Sulfate 4 Mg/Ml Cartridge IVPUSH 07/04/22 22:54 4 mg ONCE ONE Administration Protocol <POLO An - Last Filed: 07/05/22 01:49> Medical Decision Making Medical Decision Making MDM Narrative: 51-year-old female presents to ED for nausea, vomiting flank pain, coughing, bodyaches, chills, and shortness of breath. He denies any chest pain, lower extremity swelling, or calf pain. Chest x-ray negative for pneumonia. Lungs positive for refused bilateral diffuse wheezing. UA shows UTI. Patient was concern for kidney stones due to history of severe infected obstructive kidney stones. CT scan negative for kidney stones. Patient seen to have pyelonephritis with asthma exacerbation. Negative cardiac workup for CHF from myocardial infarction. Not suspecting PE. Patient compliant with Eliquis and D-dimer negative <POLO An - Last Filed: 07/05/22 01:49> Differential Diagnosis Differential Diagnoses: The differential diagnosis associated with the presentation includes (Pneumonia, myocardial infarction, CHF, kidney stones, pyelonephritis, UTI, PE) <POLO An - Last Filed: 07/05/22 01:49> Admission/Observation Consideration of admission/observation: Escalation of care including admission/observation considered <POLO An - Last Filed: 07/05/22 01:49> Lab Data MDM Lab Attestation statement: I reviewed the patient's lab results. <POLO An - Last Filed: 07/05/22 01:49> Result Diagrams: 07/04/22 14:17 07/04/22 14:17 <Chad Lama - Last Filed: 07/04/22 13:58> Labs: Lab Results 07/04/22 07/04/22 07/04/22 Range/Units 14:17 14:17 14:17 WBC 11.3 H (4.8-10.8) X10*3/uL RBC 4.24 (4.20-5.50) X10*6/uL Hgb 11.9 L (12.0-16.0) g/dl Hct 37.5 (37.0-47.0) % MCV 88.4 (80.0-98.0) fL MCH 28.1 (27.0-33.0) pg MCHC 31.7 (31.0-35.0) g/dl RDW 13.1 (11.0-16.0) % Plt Count 376 (160-400) X10*3/uL MPV 9.8 (9.4-12.3) fL Immature Gran % (Auto) 0.5 H (0.0-0.4) % Neut % (Auto) 75.2 H (45-73) % Lymph % (Auto) 13.8 L (20-40) % [place] % (Auto) 4.9 (2-11) % Eos % (Auto) 5.1 H (0-4) % Baso % (Auto) 0.5 (0-2) % Lymph # (Auto) 1.6 (1.2-4.9) X10*3/uL [place] # (Auto) 0.6 (0.1-1.2) X10*3/uL Eos # (Auto) 0.6 H (0.0-0.4) X10*3/uL Baso # (Auto) 0.1 (0.0-0.2) X10*3/uL Abs Immat Gran (auto) 0.06 H (0.00-0.03) X10*3/uL Absolute Neuts (auto) 8.5 H (2.0-8.3) x10*3/uL Absolute Nucleated RBC 0.000 (0.0-0.012) X10*3/uL Nucleated RBC % (auto) 0.0 (0.0-0.2) /100WBC PT 10.2 (10.0-13.1) SEC INR 0.9 (0.9-1.1) APTT 32.3 (26.0-36.4) SEC D-Dimer High Sensitivty 151 NG/ML Sodium 138 (135-145) mmol/L Potassium 5.0 (3.3-5.1) mmol/L Chloride 98 (96-108) mmol/L Carbon Dioxide 32 H (22-29) mmol/L Anion Gap 13 (12-20) BUN 10 (9-16) mg/dL Creatinine 1.17 (0.5-1.4) mg/dL Estim Creat Clear Calc 60.1 Estimated GFR 49 Random Glucose 199 H (60-115) mg/dL Lactic Acid (0.5-2.0) mmol/L Lactic Acid F/U @ 2Hr (0.5-2.0) mmol/L Lactic Acid F/U @ 4Hr (0.5-2.0) mmol/L Calcium 9.5 (8.4-10.2) mg/dL Magnesium 1.7 (1.6-2.6) mg/dL Total Bilirubin 0.4 (0.0-1.0) mg/dL AST 17 (5-31) U/L ALT 22 (0-31) U/L Alkaline Phosphatase 172 H (39-117) U/L Troponin I High Sens (<3.5-17.0) ng/L B-Natriuretic Peptide (<100) pg/mL Total Protein 6.5 (6.5-8.0) g/dL Albumin 3.9 (3.5-5.0) g/dL Lipase 6 L (8-78) U/L Urine Color Urine Appearance Urine pH (5.0-9.0) Ur Specific [place] (1.005-1.025) Urine Protein (Neg-Trace) mg/dL Urine Glucose (UA) (Negative) mg/dL Urine Ketones (Negative) mg/dL Urine Blood (Negative) Urine Nitrite (Negative) Ur Leukocyte Esterase (Negative) Urine RBC (0-2) /HPF Urine WBC (0-5) /HPF Urine WBC Clumps Ur Squamous Epith Cells (0-2) /HPF Ur Transition Epith Cell Ur Renal Epithelial Cell Calcium Oxalate Crystal Leucine Crystals Cystine Crystals Tyrosine Crystals Other Crystals Urine Bacteria (None Seen) Urine Parasites Bilirubin Casts Epithelial Casts Fatty Casts Hyaline Casts (0-2) /LPF Granular Casts Waxy Casts Broad Casts RBC Casts WBC Casts Other Casts Urine Trichomonas Urine Yeast Influenza Type A (PCR) (Negative) Influenza Type B (PCR) (Negative) RSV RNA Qual (PCR) (Negative) SARS-CoV-2 RNA (RT-PCR) (Negative) 07/04/22 07/04/22 07/04/22 Range/Units 14:17 14:17 14:59 WBC (4.8-10.8) X10*3/uL RBC (4.20-5.50) X10*6/uL Hgb (12.0-16.0) g/dl Hct (37.0-47.0) % MCV (80.0-98.0) fL MCH (27.0-33.0) pg MCHC (31.0-35.0) g/dl RDW (11.0-16.0) % Plt Count (160-400) X10*3/uL MPV (9.4-12.3) fL Immature Gran % (Auto) (0.0-0.4) % Neut % (Auto) (45-73) % Lymph % (Auto) (20-40) % [place] % (Auto) (2-11) % Eos % (Auto) (0-4) % Baso % (Auto) (0-2) % Lymph # (Auto) (1.2-4.9) X10*3/uL [place] # (Auto) (0.1-1.2) X10*3/uL Eos # (Auto) (0.0-0.4) X10*3/uL Baso # (Auto) (0.0-0.2) X10*3/uL Abs Immat Gran (auto) (0.00-0.03) X10*3/uL Absolute Neuts (auto) (2.0-8.3) x10*3/uL Absolute Nucleated RBC (0.0-0.012) X10*3/uL Nucleated RBC % (auto) (0.0-0.2) /100WBC PT (10.0-13.1) SEC INR (0.9-1.1) APTT (26.0-36.4) SEC D-Dimer High Sensitivty NG/ML Sodium (135-145) mmol/L Potassium (3.3-5.1) mmol/L Chloride (96-108) mmol/L Carbon Dioxide (22-29) mmol/L Anion Gap (12-20) BUN (9-16) mg/dL Creatinine (0.5-1.4) mg/dL Estim Creat Clear Calc Estimated GFR Random Glucose (60-115) mg/dL Lactic Acid 2.1 H* (0.5-2.0) mmol/L Lactic Acid F/U @ 2Hr (0.5-2.0) mmol/L Lactic Acid F/U @ 4Hr (0.5-2.0) mmol/L Calcium (8.4-10.2) mg/dL Magnesium (1.6-2.6) mg/dL Total Bilirubin (0.0-1.0) mg/dL AST (5-31) U/L ALT (0-31) U/L Alkaline Phosphatase (39-117) U/L Troponin I High Sens < 2.7 (<3.5-17.0) ng/L B-Natriuretic Peptide (<100) pg/mL Total Protein (6.5-8.0) g/dL Albumin (3.5-5.0) g/dL Lipase (8-78) U/L Urine Color Yellow Urine Appearance Clear Urine pH 5.0 (5.0-9.0) Ur Specific [place] 1.010 (1.005-1.025) Urine Protein Negative (Neg-Trace) mg/dL Urine Glucose (UA) Negative (Negative) mg/dL Urine Ketones Negative (Negative) mg/dL Urine Blood Negative (Negative) Urine Nitrite Negative (Negative) Ur Leukocyte Esterase Moderate (2+) H (Negative) Urine RBC 0-2 (0-2) /HPF Urine WBC 21-50 H (0-5) /HPF Urine WBC Clumps Ur Squamous Epith Cells 3-5 (0-2) /HPF Ur Transition Epith Cell Ur Renal Epithelial Cell Calcium Oxalate Crystal Leucine Crystals Cystine Crystals Tyrosine Crystals Other Crystals Urine Bacteria Trace (None Seen) Urine Parasites Bilirubin Casts Epithelial Casts Fatty Casts Hyaline Casts 0-2 (0-2) /LPF Granular Casts Waxy Casts Broad Casts RBC Casts WBC Casts Other Casts Urine Trichomonas Urine Yeast Influenza Type A (PCR) (Negative) Influenza Type B (PCR) (Negative) RSV RNA Qual (PCR) (Negative) SARS-CoV-2 RNA (RT-PCR) (Negative) 07/04/22 07/04/22 07/04/22 Range/Units 14:59 15:00 16:45 WBC (4.8-10.8) X10*3/uL RBC (4.20-5.50) X10*6/uL Hgb (12.0-16.0) g/dl Hct (37.0-47.0) % MCV (80.0-98.0) fL MCH (27.0-33.0) pg MCHC (31.0-35.0) g/dl RDW (11.0-16.0) % Plt Count (160-400) X10*3/uL MPV (9.4-12.3) fL Immature Gran % (Auto) (0.0-0.4) % Neut % (Auto) (45-73) % Lymph % (Auto) (20-40) % [place] % (Auto) (2-11) % Eos % (Auto) (0-4) % Baso % (Auto) (0-2) % Lymph # (Auto) (1.2-4.9) X10*3/uL [place] # (Auto) (0.1-1.2) X10*3/uL Eos # (Auto) (0.0-0.4) X10*3/uL Baso # (Auto) (0.0-0.2) X10*3/uL Abs Immat Gran (auto) (0.00-0.03) X10*3/uL Absolute Neuts (auto) (2.0-8.3) x10*3/uL Absolute Nucleated RBC (0.0-0.012) X10*3/uL Nucleated RBC % (auto) (0.0-0.2) /100WBC PT (10.0-13.1) SEC INR (0.9-1.1) APTT (26.0-36.4) SEC D-Dimer High Sensitivty NG/ML Sodium (135-145) mmol/L Potassium (3.3-5.1) mmol/L Chloride (96-108) mmol/L Carbon Dioxide (22-29) mmol/L Anion Gap (12-20) BUN (9-16) mg/dL Creatinine (0.5-1.4) mg/dL Estim Creat Clear Calc Estimated GFR Random Glucose (60-115) mg/dL Lactic Acid (0.5-2.0) mmol/L Lactic Acid F/U @ 2Hr 2.3 H* (0.5-2.0) mmol/L Lactic Acid F/U @ 4Hr (0.5-2.0) mmol/L Calcium (8.4-10.2) mg/dL Magnesium (1.6-2.6) mg/dL Total Bilirubin (0.0-1.0) mg/dL AST (5-31) U/L ALT (0-31) U/L Alkaline Phosphatase (39-117) U/L Troponin I High Sens (<3.5-17.0) ng/L B-Natriuretic Peptide (<100) pg/mL Total Protein (6.5-8.0) g/dL Albumin (3.5-5.0) g/dL Lipase (8-78) U/L Urine Color Cancelled Urine Appearance Cancelled Urine pH Cancelled (5.0-9.0) Ur Specific [place] Cancelled (1.005-1.025) Urine Protein Cancelled (Neg-Trace) mg/dL Urine Glucose (UA) Cancelled (Negative) mg/dL Urine Ketones Cancelled (Negative) mg/dL Urine Blood Cancelled (Negative) Urine Nitrite Cancelled (Negative) Ur Leukocyte Esterase Cancelled (Negative) Urine RBC Cancelled (0-2) /HPF Urine WBC Cancelled (0-5) /HPF Urine WBC Clumps Cancelled Ur Squamous Epith Cells Cancelled (0-2) /HPF Ur Transition Epith Cell Cancelled Ur Renal Epithelial Cell Cancelled Calcium Oxalate Crystal Cancelled Leucine Crystals Cancelled Cystine Crystals Cancelled Tyrosine Crystals Cancelled Other Crystals Cancelled Urine Bacteria Cancelled (None Seen) Urine Parasites Cancelled Bilirubin Casts Cancelled Epithelial Casts Cancelled Fatty Casts Cancelled Hyaline Casts Cancelled (0-2) /LPF Granular Casts Cancelled Waxy Casts Cancelled Broad Casts Cancelled RBC Casts Cancelled WBC Casts Cancelled Other Casts Cancelled Urine Trichomonas Cancelled Urine Yeast Cancelled Influenza Type A (PCR) NEGATIVE (Negative) Influenza Type B (PCR) NEGATIVE (Negative) RSV RNA Qual (PCR) NEGATIVE (Negative) SARS-CoV-2 RNA (RT-PCR) NEGATIVE (Negative) 07/04/22 07/04/22 07/04/22 Range/Units 19:10 22:07 22:07 WBC (4.8-10.8) X10*3/uL RBC (4.20-5.50) X10*6/uL Hgb (12.0-16.0) g/dl Hct (37.0-47.0) % MCV (80.0-98.0) fL MCH (27.0-33.0) pg MCHC (31.0-35.0) g/dl RDW (11.0-16.0) % Plt Count (160-400) X10*3/uL MPV (9.4-12.3) fL Immature Gran % (Auto) (0.0-0.4) % Neut % (Auto) (45-73) % Lymph % (Auto) (20-40) % [place] % (Auto) (2-11) % Eos % (Auto) (0-4) % Baso % (Auto) (0-2) % Lymph # (Auto) (1.2-4.9) X10*3/uL [place] # (Auto) (0.1-1.2) X10*3/uL Eos # (Auto) (0.0-0.4) X10*3/uL Baso # (Auto) (0.0-0.2) X10*3/uL Abs Immat Gran (auto) (0.00-0.03) X10*3/uL Absolute Neuts (auto) (2.0-8.3) x10*3/uL Absolute Nucleated RBC (0.0-0.012) X10*3/uL Nucleated RBC % (auto) (0.0-0.2) /100WBC PT (10.0-13.1) SEC INR (0.9-1.1) APTT (26.0-36.4) SEC D-Dimer High Sensitivty NG/ML Sodium (135-145) mmol/L Potassium (3.3-5.1) mmol/L Chloride (96-108) mmol/L Carbon Dioxide (22-29) mmol/L Anion Gap (12-20) BUN (9-16) mg/dL Creatinine (0.5-1.4) mg/dL Estim Creat Clear Calc Estimated GFR Random Glucose (60-115) mg/dL Lactic Acid (0.5-2.0) mmol/L Lactic Acid F/U @ 2Hr (0.5-2.0) mmol/L Lactic Acid F/U @ 4Hr 1.7 (0.5-2.0) mmol/L Calcium (8.4-10.2) mg/dL Magnesium (1.6-2.6) mg/dL Total Bilirubin (0.0-1.0) mg/dL AST (5-31) U/L ALT (0-31) U/L Alkaline Phosphatase (39-117) U/L Troponin I High Sens < 2.7 (<3.5-17.0) ng/L B-Natriuretic Peptide 24 (<100) pg/mL Total Protein (6.5-8.0) g/dL Albumin (3.5-5.0) g/dL Lipase (8-78) U/L Urine Color Urine Appearance Urine pH (5.0-9.0) Ur Specific [place] (1.005-1.025) Urine Protein (Neg-Trace) mg/dL Urine Glucose (UA) (Negative) mg/dL Urine Ketones (Negative) mg/dL Urine Blood (Negative) Urine Nitrite (Negative) Ur Leukocyte Esterase (Negative) Urine RBC (0-2) /HPF Urine WBC (0-5) /HPF Urine WBC Clumps Ur Squamous Epith Cells (0-2) /HPF Ur Transition Epith Cell Ur Renal Epithelial Cell Calcium Oxalate Crystal Leucine Crystals Cystine Crystals Tyrosine Crystals Other Crystals Urine Bacteria (None Seen) Urine Parasites Bilirubin Casts Epithelial Casts Fatty Casts Hyaline Casts (0-2) /LPF Granular Casts Waxy Casts Broad Casts RBC Casts WBC Casts Other Casts Urine Trichomonas Urine Yeast Influenza Type A (PCR) (Negative) Influenza Type B (PCR) (Negative) RSV RNA Qual (PCR) (Negative) SARS-CoV-2 RNA (RT-PCR) (Negative) <Chad Lama - Last Filed: 07/04/22 13:58> Lab Results 07/04/22 07/04/22 07/04/22 Range/Units 14:17 14:17 14:17 WBC 11.3 H (4.8-10.8) X10*3/uL RBC 4.24 (4.20-5.50) X10*6/uL Hgb 11.9 L (12.0-16.0) g/dl Hct 37.5 (37.0-47.0) % MCV 88.4 (80.0-98.0) fL MCH 28.1 (27.0-33.0) pg MCHC 31.7 (31.0-35.0) g/dl RDW 13.1 (11.0-16.0) % Plt Count 376 (160-400) X10*3/uL MPV 9.8 (9.4-12.3) fL Immature Gran % (Auto) 0.5 H (0.0-0.4) % Neut % (Auto) 75.2 H (45-73) % Lymph % (Auto) 13.8 L (20-40) % [place] % (Auto) 4.9 (2-11) % Eos % (Auto) 5.1 H (0-4) % Baso % (Auto) 0.5 (0-2) % Lymph # (Auto) 1.6 (1.2-4.9) X10*3/uL [place] # (Auto) 0.6 (0.1-1.2) X10*3/uL Eos # (Auto) 0.6 H (0.0-0.4) X10*3/uL Baso # (Auto) 0.1 (0.0-0.2) X10*3/uL Abs Immat Gran (auto) 0.06 H (0.00-0.03) X10*3/uL Absolute Neuts (auto) 8.5 H (2.0-8.3) x10*3/uL Absolute Nucleated RBC 0.000 (0.0-0.012) X10*3/uL Nucleated RBC % (auto) 0.0 (0.0-0.2) /100WBC PT 10.2 (10.0-13.1) SEC INR 0.9 (0.9-1.1) APTT 32.3 (26.0-36.4) SEC D-Dimer High Sensitivty 151 NG/ML Sodium 138 (135-145) mmol/L Potassium 5.0 (3.3-5.1) mmol/L Chloride 98 (96-108) mmol/L Carbon Dioxide 32 H (22-29) mmol/L Anion Gap 13 (12-20) BUN 10 (9-16) mg/dL Creatinine 1.17 (0.5-1.4) mg/dL Estim Creat Clear Calc 60.1 Estimated GFR 49 Random Glucose 199 H (60-115) mg/dL Lactic Acid (0.5-2.0) mmol/L Lactic Acid F/U @ 2Hr (0.5-2.0) mmol/L Lactic Acid F/U @ 4Hr (0.5-2.0) mmol/L Calcium 9.5 (8.4-10.2) mg/dL Magnesium 1.7 (1.6-2.6) mg/dL Total Bilirubin 0.4 (0.0-1.0) mg/dL AST 17 (5-31) U/L ALT 22 (0-31) U/L Alkaline Phosphatase 172 H (39-117) U/L Troponin I High Sens (<3.5-17.0) ng/L B-Natriuretic Peptide (<100) pg/mL Total Protein 6.5 (6.5-8.0) g/dL Albumin 3.9 (3.5-5.0) g/dL Lipase 6 L (8-78) U/L Urine Color Urine Appearance Urine pH (5.0-9.0) Ur Specific [place] (1.005-1.025) Urine Protein (Neg-Trace) mg/dL Urine Glucose (UA) (Negative) mg/dL Urine Ketones (Negative) mg/dL Urine Blood (Negative) Urine Nitrite (Negative) Ur Leukocyte Esterase (Negative) Urine RBC (0-2) /HPF Urine WBC (0-5) /HPF Urine WBC Clumps Ur Squamous Epith Cells (0-2) /HPF Ur Transition Epith Cell Ur Renal Epithelial Cell Calcium Oxalate Crystal Leucine Crystals Cystine Crystals Tyrosine Crystals Other Crystals Urine Bacteria (None Seen) Urine Parasites Bilirubin Casts Epithelial Casts Fatty Casts Hyaline Casts (0-2) /LPF Granular Casts Waxy Casts Broad Casts RBC Casts WBC Casts Other Casts Urine Trichomonas Urine Yeast Influenza Type A (PCR) (Negative) Influenza Type B (PCR) (Negative) RSV RNA Qual (PCR) (Negative) SARS-CoV-2 RNA (RT-PCR) (Negative) 07/04/22 07/04/22 07/04/22 Range/Units 14:17 14:17 14:59 WBC (4.8-10.8) X10*3/uL RBC (4.20-5.50) X10*6/uL Hgb (12.0-16.0) g/dl Hct (37.0-47.0) % MCV (80.0-98.0) fL MCH (27.0-33.0) pg MCHC (31.0-35.0) g/dl RDW (11.0-16.0) % Plt Count (160-400) X10*3/uL MPV (9.4-12.3) fL Immature Gran % (Auto) (0.0-0.4) % Neut % (Auto) (45-73) % Lymph % (Auto) (20-40) % [place] % (Auto) (2-11) % Eos % (Auto) (0-4) % Baso % (Auto) (0-2) % Lymph # (Auto) (1.2-4.9) X10*3/uL [place] # (Auto) (0.1-1.2) X10*3/uL Eos # (Auto) (0.0-0.4) X10*3/uL Baso # (Auto) (0.0-0.2) X10*3/uL Abs Immat Gran (auto) (0.00-0.03) X10*3/uL Absolute Neuts (auto) (2.0-8.3) x10*3/uL Absolute Nucleated RBC (0.0-0.012) X10*3/uL Nucleated RBC % (auto) (0.0-0.2) /100WBC PT (10.0-13.1) SEC INR (0.9-1.1) APTT (26.0-36.4) SEC D-Dimer High Sensitivty NG/ML Sodium (135-145) mmol/L Potassium (3.3-5.1) mmol/L Chloride (96-108) mmol/L Carbon Dioxide (22-29) mmol/L Anion Gap (12-20) BUN (9-16) mg/dL Creatinine (0.5-1.4) mg/dL Estim Creat Clear Calc Estimated GFR Random Glucose (60-115) mg/dL Lactic Acid 2.1 H* (0.5-2.0) mmol/L Lactic Acid F/U @ 2Hr (0.5-2.0) mmol/L Lactic Acid F/U @ 4Hr (0.5-2.0) mmol/L Calcium (8.4-10.2) mg/dL Magnesium (1.6-2.6) mg/dL Total Bilirubin (0.0-1.0) mg/dL AST (5-31) U/L ALT (0-31) U/L Alkaline Phosphatase (39-117) U/L Troponin I High Sens < 2.7 (<3.5-17.0) ng/L B-Natriuretic Peptide (<100) pg/mL Total Protein (6.5-8.0) g/dL Albumin (3.5-5.0) g/dL Lipase (8-78) U/L Urine Color Yellow Urine Appearance Clear Urine pH 5.0 (5.0-9.0) Ur Specific [place] 1.010 (1.005-1.025) Urine Protein Negative (Neg-Trace) mg/dL Urine Glucose (UA) Negative (Negative) mg/dL Urine Ketones Negative (Negative) mg/dL Urine Blood Negative (Negative) Urine Nitrite Negative (Negative) Ur Leukocyte Esterase Moderate (2+) H (Negative) Urine RBC 0-2 (0-2) /HPF Urine WBC 21-50 H (0-5) /HPF Urine WBC Clumps Ur Squamous Epith Cells 3-5 (0-2) /HPF Ur Transition Epith Cell Ur Renal Epithelial Cell Calcium Oxalate Crystal Leucine Crystals Cystine Crystals Tyrosine Crystals Other Crystals Urine Bacteria Trace (None Seen) Urine Parasites Bilirubin Casts Epithelial Casts Fatty Casts Hyaline Casts 0-2 (0-2) /LPF Granular Casts Waxy Casts Broad Casts RBC Casts WBC Casts Other Casts Urine Trichomonas Urine Yeast Influenza Type A (PCR) (Negative) Influenza Type B (PCR) (Negative) RSV RNA Qual (PCR) (Negative) SARS-CoV-2 RNA (RT-PCR) (Negative) 07/04/22 07/04/22 07/04/22 Range/Units 14:59 15:00 16:45 WBC (4.8-10.8) X10*3/uL RBC (4.20-5.50) X10*6/uL Hgb (12.0-16.0) g/dl Hct (37.0-47.0) % MCV (80.0-98.0) fL MCH (27.0-33.0) pg MCHC (31.0-35.0) g/dl RDW (11.0-16.0) % Plt Count (160-400) X10*3/uL MPV (9.4-12.3) fL Immature Gran % (Auto) (0.0-0.4) % Neut % (Auto) (45-73) % Lymph % (Auto) (20-40) % [place] % (Auto) (2-11) % Eos % (Auto) (0-4) % Baso % (Auto) (0-2) % Lymph # (Auto) (1.2-4.9) X10*3/uL [place] # (Auto) (0.1-1.2) X10*3/uL Eos # (Auto) (0.0-0.4) X10*3/uL Baso # (Auto) (0.0-0.2) X10*3/uL Abs Immat Gran (auto) (0.00-0.03) X10*3/uL Absolute Neuts (auto) (2.0-8.3) x10*3/uL Absolute Nucleated RBC (0.0-0.012) X10*3/uL Nucleated RBC % (auto) (0.0-0.2) /100WBC PT (10.0-13.1) SEC INR (0.9-1.1) APTT (26.0-36.4) SEC D-Dimer High Sensitivty NG/ML Sodium (135-145) mmol/L Potassium (3.3-5.1) mmol/L Chloride (96-108) mmol/L Carbon Dioxide (22-29) mmol/L Anion Gap (12-20) BUN (9-16) mg/dL Creatinine (0.5-1.4) mg/dL Estim Creat Clear Calc Estimated GFR Random Glucose (60-115) mg/dL Lactic Acid (0.5-2.0) mmol/L Lactic Acid F/U @ 2Hr 2.3 H* (0.5-2.0) mmol/L Lactic Acid F/U @ 4Hr (0.5-2.0) mmol/L Calcium (8.4-10.2) mg/dL Magnesium (1.6-2.6) mg/dL Total Bilirubin (0.0-1.0) mg/dL AST (5-31) U/L ALT (0-31) U/L Alkaline Phosphatase (39-117) U/L Troponin I High Sens (<3.5-17.0) ng/L B-Natriuretic Peptide (<100) pg/mL Total Protein (6.5-8.0) g/dL Albumin (3.5-5.0) g/dL Lipase (8-78) U/L Urine Color Cancelled Urine Appearance Cancelled Urine pH Cancelled (5.0-9.0) Ur Specific [place] Cancelled (1.005-1.025) Urine Protein Cancelled (Neg-Trace) mg/dL Urine Glucose (UA) Cancelled (Negative) mg/dL Urine Ketones Cancelled (Negative) mg/dL Urine Blood Cancelled (Negative) Urine Nitrite Cancelled (Negative) Ur Leukocyte Esterase Cancelled (Negative) Urine RBC Cancelled (0-2) /HPF Urine WBC Cancelled (0-5) /HPF Urine WBC Clumps Cancelled Ur Squamous Epith Cells Cancelled (0-2) /HPF Ur Transition Epith Cell Cancelled Ur Renal Epithelial Cell Cancelled Calcium Oxalate Crystal Cancelled Leucine Crystals Cancelled Cystine Crystals Cancelled Tyrosine Crystals Cancelled Other Crystals Cancelled Urine Bacteria Cancelled (None Seen) Urine Parasites Cancelled Bilirubin Casts Cancelled Epithelial Casts Cancelled Fatty Casts Cancelled Hyaline Casts Cancelled (0-2) /LPF Granular Casts Cancelled Waxy Casts Cancelled Broad Casts Cancelled RBC Casts Cancelled WBC Casts Cancelled Other Casts Cancelled Urine Trichomonas Cancelled Urine Yeast Cancelled Influenza Type A (PCR) NEGATIVE (Negative) Influenza Type B (PCR) NEGATIVE (Negative) RSV RNA Qual (PCR) NEGATIVE (Negative) SARS-CoV-2 RNA (RT-PCR) NEGATIVE (Negative) 07/04/22 07/04/22 07/04/22 Range/Units 19:10 22:07 22:07 WBC (4.8-10.8) X10*3/uL RBC (4.20-5.50) X10*6/uL Hgb (12.0-16.0) g/dl Hct (37.0-47.0) % MCV (80.0-98.0) fL MCH (27.0-33.0) pg MCHC (31.0-35.0) g/dl RDW (11.0-16.0) % Plt Count (160-400) X10*3/uL MPV (9.4-12.3) fL Immature Gran % (Auto) (0.0-0.4) % Neut % (Auto) (45-73) % Lymph % (Auto) (20-40) % [place] % (Auto) (2-11) % Eos % (Auto) (0-4) % Baso % (Auto) (0-2) % Lymph # (Auto) (1.2-4.9) X10*3/uL [place] # (Auto) (0.1-1.2) X10*3/uL Eos # (Auto) (0.0-0.4) X10*3/uL Baso # (Auto) (0.0-0.2) X10*3/uL Abs Immat Gran (auto) (0.00-0.03) X10*3/uL Absolute Neuts (auto) (2.0-8.3) x10*3/uL Absolute Nucleated RBC (0.0-0.012) X10*3/uL Nucleated RBC % (auto) (0.0-0.2) /100WBC PT (10.0-13.1) SEC INR (0.9-1.1) APTT (26.0-36.4) SEC D-Dimer High Sensitivty NG/ML Sodium (135-145) mmol/L Potassium (3.3-5.1) mmol/L Chloride (96-108) mmol/L Carbon Dioxide (22-29) mmol/L Anion Gap (12-20) BUN (9-16) mg/dL Creatinine (0.5-1.4) mg/dL Estim Creat Clear Calc Estimated GFR Random Glucose (60-115) mg/dL Lactic Acid (0.5-2.0) mmol/L Lactic Acid F/U @ 2Hr (0.5-2.0) mmol/L Lactic Acid F/U @ 4Hr 1.7 (0.5-2.0) mmol/L Calcium (8.4-10.2) mg/dL Magnesium (1.6-2.6) mg/dL Total Bilirubin (0.0-1.0) mg/dL AST (5-31) U/L ALT (0-31) U/L Alkaline Phosphatase (39-117) U/L Troponin I High Sens < 2.7 (<3.5-17.0) ng/L B-Natriuretic Peptide 24 (<100) pg/mL Total Protein (6.5-8.0) g/dL Albumin (3.5-5.0) g/dL Lipase (8-78) U/L Urine Color Urine Appearance Urine pH (5.0-9.0) Ur Specific [place] (1.005-1.025) Urine Protein (Neg-Trace) mg/dL Urine Glucose (UA) (Negative) mg/dL Urine Ketones (Negative) mg/dL Urine Blood (Negative) Urine Nitrite (Negative) Ur Leukocyte Esterase (Negative) Urine RBC (0-2) /HPF Urine WBC (0-5) /HPF Urine WBC Clumps Ur Squamous Epith Cells (0-2) /HPF Ur Transition Epith Cell Ur Renal Epithelial Cell Calcium Oxalate Crystal Leucine Crystals Cystine Crystals Tyrosine Crystals Other Crystals Urine Bacteria (None Seen) Urine Parasites Bilirubin Casts Epithelial Casts Fatty Casts Hyaline Casts (0-2) /LPF Granular Casts Waxy Casts Broad Casts RBC Casts WBC Casts Other Casts Urine Trichomonas Urine Yeast Influenza Type A (PCR) (Negative) Influenza Type B (PCR) (Negative) RSV RNA Qual (PCR) (Negative) SARS-CoV-2 RNA (RT-PCR) (Negative) <POLO An - Last Filed: 07/05/22 01:49> Independent Interpretation I performed an independent interpretation of an: EKG and CT Scan <POLO An - Last Filed: 07/05/22 01:49> Interpretation: Sinus tachycardia. Reticular 10/12/2010. Principal was 62. QRS 84. QTC 462. Negative STEMI <POLO An - Last Filed: 07/05/22 01:49> Radiology Impression Discussion of test interpretation with radiology: I have reviewed the radiologist's reading. <POLO An - Last Filed: 07/05/22 01:49> Prescription Management I considered prescription management with: Pain Medication (oxycodone), Antibiotic and Other (prednisone) <POLO An - Last Filed: 07/05/22 01:49> Discharge Plan Discharge Clinical Impression: Pyelonephritis, Asthma <Chad Lama - Last Filed: 07/04/22 13:58> Patient Disposition: Home, Self-Care <Chad Lama - Last Filed: 07/04/22 13:58> Instructions: Asthma (DC), Urinary Tract Infection in Women (DC), Kidney Infection (ED) <Chad Lama - Last Filed: 07/04/22 13:58> Additional Instructions: Please follow-up with your primary care provider. Return to ED for any leg swelling, calf pain, coughing up blood, fever, chills, chest pain on inspiration, blood in urine, worsening flank pain, or any other concerning symptoms. Please follow up with PCP. <Chad Kelby - Last Filed: 07/04/22 13:58> Prescriptions: New prednisone 20 mg tablet 60 mg PO DAILY 7 Days Qty: 21 0RF cefpodoxime 200 mg tablet 200 mg PO Q12H 7 Days Qty: 14 0RF Rx Instructions: must administer with a meal/food oxycodone 5 mg tablet 5 mg PO TID PRN (Reason: pain) 3 Days Qty: 9 0RF Rx Instructions: Partial Fill upon patient request. benzonatate 200 mg capsule 200 mg PO BID PRN (Reason: cough) 5 Days Qty: 15 0RF No Action tizanidine 4 mg tablet 1 tab PO DAILY PRN (Reason: muscle spasm) albuterol sulfate [Ventolin HFA] 90 mcg/actuation HFA aerosol inhaler 2 puff inhalation QID PRN (Reason: Shortness Of Breath) diphenhydramine HCl [Benadryl] 25 mg Capsule 25 mg PO Q6H PRN (Reason: POST NASAL DRIP) albuterol sulfate 2.5 mg /3 mL (0.083 %) solution for nebulization 1 vial inhalation Q4H PRN (Reason: wheezing) atorvastatin 10 mg tablet 1 tab PO DAILY clonazepam 1 mg tablet 1 tab PO BID PRN (Reason: Anxiety) oxcarbazepine 300 mg tablet 1 tab PO BID famotidine 20 mg tablet 1 tab PO BID trazodone 100 mg tablet 1 tab PO BEDTIME promethazine 25 mg tablet 1 tab PO DAILY PRN (Reason: nausea) fluticasone propionate 50 mcg/actuation spray,suspension 1 spray intranasal DAILY glipizide 5 mg tablet 1 tab PO BIDAC escitalopram oxalate 20 mg tablet 1 tab PO BEDTIME Latuda 60 mg tablet 1 tab PO DAILY Eliquis 5 mg tablet 5 mg PO BID Qty: 60 0RF fluticasone propion-salmeterol [Advair Diskus] 500-50 mcg/dose blister with device 1 puff INHALATION BID prednisone 20 mg tablet 40 mg PO DAILY Qty: 8 0RF insulin lispro [Humalog KwikPen Insulin] 100 unit/mL insulin pen 1 sliding scale dose subcut USEASDIRECTD Qty: 15 0RF Rx Instructions: Administer 3 times day before meals after checking glucose: 0 units if <150 2 units if 150-199 4 units if 200-249 6 units if 250-299 8 units if 300-349 10 units if 350-399 Call PCP if >400 insulin glargine [Lantus Solostar U-100 Insulin] 100 unit/mL (3 mL) insulin pen 10 unit subcut QAM Qty: 15 0RF <Chad Lama - Last Filed: 07/04/22 13:58> Interventions: ED Discharge Assessment Last Done: 07/05/22 00:09 <Chad Lama - Last Filed: 07/04/22 13:58> Discharge Date/Time: 07/05/22 00:10 <Chad Lama - Last Filed: 07/04/22 13:58> Print Language: Yoruba <Chad Lama - Last Filed: 07/04/22 13:58>
--- NOTE | 2022-07-04 13:55 | ECG_ITS ---
Test Reason : pain Blood Pressure : / mmHG Vent. Rate : 111 BPM Atrial Rate : 111 BPM P-R Int : 162 ms QRS Dur : 084 ms QT Int : 340 ms P-R-T Axes : 054 -15 048 degrees QTc Int : 462 ms Sinus tachycardia Possible Anterior infarct (cited on or before 05-APR-2022) Abnormal ECG When compared with ECG of 05-APR-2022 18:38, No significant change was found Referred By: Chad Lama Electronically Signed By:Skip Ledesma
[2022-07-04 14:24] LABS: MANUAL DIFF FLAG NO
[2022-07-04 14:30] LABS: INTERNATIONAL NORM RATIO 0.9 (0.9-1.1); Prothrombin Time 10.2 SEC (10.0-13.1)
--- NOTE | 2022-07-04 14:32 | PC.NURSE ---
Pt arrived to waiting room ambulatory, trach present, O2 high 80's on RA, able to cough and clear some secretions and was able to sat in the 90's. Pt stated she feels like she has a left kidney infection, she currently has a stent in place and this is feeling very similar. Labs obtained, resp at bedside, orders placed for EKG/UA/swab.
[2022-07-04 14:33] LABS: Partial Thromboplastin Time 32.3 SEC (26.0-36.4)
[2022-07-04 14:36] LABS: Basophils Absolute Auto 0.1 X10*3/uL (0.0-0.2); Basophils Percent Auto 0.5 % (0-2); Eosinophils Absolute Auto 0.6 X10*3/uL (0.0-0.4); Eosinophils Percent Auto 5.1 % (0-4); Hematocrit 37.5 % (37.0-47.0); Hemoglobin 11.9 g/dl (12.0-16.0); Imm Gran Abs Auto 0.06 X10*3/uL (0.00-0.03); Imm Gran Pct Auto 0.5 % (0.0-0.4); Lymphocytes Absolute Auto 1.6 X10*3/uL (1.2-4.9); Lymphocytes Percent Auto 13.8 % (20-40); Mean Corpuscular HGB Conc 31.7 g/dl (31.0-35.0); Mean Corpuscular Hemoglobin 28.1 pg (27.0-33.0); Mean Corpuscular Volume 88.4 fL (80.0-98.0); Mean Platelet Volume 9.8 fL (9.4-12.3); Monocytes Absolute Auto 0.6 X10*3/uL (0.1-1.2); Monocytes Percent Auto 4.9 % (2-11); Neutrophils Absolute Auto 8.5 x10*3/uL (2.0-8.3); Neutrophils Percent Auto 75.2 % (45-73); Platelet Count 376 X10*3/uL (160-400); Red Blood Count 4.24 X10*6/uL (4.20-5.50); Red Cell Distribution Width 13.1 % (11.0-16.0); White Blood Count 11.3 X10*3/uL (4.8-10.8)
[2022-07-04 14:41] LABS: Alanine Aminotransferase 22 U/L (0-31); Albumin Level 3.9 g/dL (3.5-5.0); Alkaline Phosphatase 172 U/L (39-117); Anion Gap 13 (12-20); Aspartate Amino Transferase 17 U/L (5-31); Bilirubin Total 0.4 mg/dL (0.0-1.0); Blood Urea Nitrogen 10 mg/dL (9-16); Calcium 9.5 mg/dL (8.4-10.2); Carbon Dioxide 32 mmol/L (22-29); Chloride 98 mmol/L (96-108); Creatinine Clr Calc Pharmacy 60.1; Estimated Glomerular Filt Rate 49; Glucose Random 199 mg/dL (60-115); Lipase 6 U/L (8-78); Magnesium 1.7 mg/dL (1.6-2.6); Sodium 138 mmol/L (135-145); Total Protein 6.5 g/dL (6.5-8.0)
[2022-07-04 14:42] LABS: Lactic Acid 2.1 mmol/L (0.5-2.0)
[2022-07-04 14:52] LABS: Troponin-I High Sensitivity < 2.7 ng/L (<3.5-17.0)
[2022-07-04 15:23] LABS: Appearance Urine Clear; Color Urine Yellow; Glucose Urine UA Negative (Negative); Leukocyte Esterase Urine Moderate (2+) (Negative); Nitrite Urine Negative (Negative); UMIC TRIGGER UACC YES; Urine Blood Negative (Negative); Urine Ketones Negative (Negative); Urine Protein Negative (Neg-Trace)
[2022-07-04 15:28] LABS: Bacteria Urine Trace (None Seen); Hyaline Casts Urine 0-2 /LPF (0-2); RBC Urine 0-2 /HPF (0-2); UACC Culture Trigger YES; WBC Urine 21-50 /HPF (0-5)
[2022-07-04 16:10] LABS: Influenza A PCR NEGATIVE (Negative); Influenza B PCR NEGATIVE (Negative); Resp Syncy Virus RNA Qual PCR NEGATIVE (Negative); SARS COV2 PCR INHOUSE NEGATIVE (Negative)
[2022-07-04 16:22] LABS: Reflex Lactate? Lactic Acid Added
[2022-07-04 17:12] LABS: ~Lactic Acid-LAB USE ONLY 2.3 mmol/L (0.5-2.0)
[2022-07-04] MEDS: cefTRIAXone sodium 1 GM in 0.9 % Sodium Chloride 50 ML IV (17:16)
[2022-07-04] MEDS: Morphine Sulfate 4 MG/ML CARTRIDGE IVPUSH ×2 (17:16→23:05)
[2022-07-04] MEDS: 0.9 % Sodium Chloride 1,000 ML 999 ML IV (17:16)
--- NOTE | 2022-07-04 17:28 | PC.NURSE ---
morphine given for L flank pain, IVF ordered, antx ordered and given. Pt reporting her breathing is feeling a little better at this time, awaiting CT scan
[2022-07-04 18:48] LABS: Reflex Lactate? 2 Y
[2022-07-04 19:30] LABS: ~Lactic Acid-LAB USE ONLY 1.7 mmol/L (0.5-2.0)
--- NOTE | 2022-07-04 19:30 | PC.NURSE ---
I resumed care of the pt at 1900. Pt is resting quietly in bed at this time. Pt is A&Ox4, GCS 17. She is complaining of 8/10 pain in her left flank. Pt is also reporting some difficulty breathing. O2 sat is at 96%. Pt was placed on a battery tester field and pulse ox. Pt has one IV in the right AC that is positional and has slowed administration of fluids. The first bag of fluids is currently 25% done. Second bag has been delayed. Antibiotics have been administered. OSEI Marquis at bedside said he will order some respiratory treatments and pain medications.
[2022-07-04] MEDS: HYDROmorphone HCl 1 MG/ML SYRINGE IVPUSH (19:46)
[2022-07-04] MEDS: Magnesium Sulfate/D5W 1 GM/100 ML PIGGYBACK IV (19:46)
[2022-07-04] MEDS: methylPREDNISolone Sod Succ 125 MG/2 ML VIAL IVPUSH (19:46)
[2022-07-04] MEDS: Albuterol/Iprat 2.5/0.5MG 3 ML AMPUL.NEB INHALE (20:45)
--- NOTE | 2022-07-04 20:50 | PC.NURSE ---
Pt ambulated to the bathroom with a cane. Pt reports decreased pain after dilaudid. RT at bedside with a breathing treatment at this time. Pt states she is feeling better.
[2022-07-04 21:10] LABS: D Dimer High Sensitivity 151 NG/ML
[2022-07-04 22:39] LABS: B Type Natriuretic Peptide 24 pg/mL (<100); Troponin-I High Sensitivity < 2.7 ng/L (<3.5-17.0)
== END 2022-07-05 00:10 | disposition home or self-care (01) ==
PROVIDERS: Physician Assistant; Emergency Provider Emergency Medicine Emergency Medical Services; PCP Internal Medicine
DX: N12 Tubulo-interstitial nephritis, not specified as acute or chronic (principal); J45.909 Unspecified asthma, uncomplicated; R06.02 Shortness of breath; R00.0 Tachycardia, unspecified; M79.10 Myalgia, unspecified site; R35.0 Frequency of micturition; R05.9 Cough, unspecified; Z20.822 Contact with and (suspected) exposure to COVID-19; Z20.828 Contact with and (suspected) exposure to other viral communicable diseases; Z79.899 Other long term (current) drug therapy
CPT/HCPCS: 0241U; 36415; 71046; 74176; 80053; 81001; 83605; 83690; 83735; 83880; 84484; 85025; 85379; 85610; 85730; 87040; 87086; 93005; 94640; 96361; 96365; 96375; 96376; 99285; J0696; J1170; J2270; J2930; J3475

== ENCOUNTER 2022-10-16 10:14 | Inpatient (IN) | payer OTHER, SELFPAY ==
--- NOTE | ~2022-10-16 | CT_ITS ---
EXAMINATION: CT CHEST, ABDOMEN AND PELVIS with contrast CLINICAL INFORMATION: Reason for Exam abdominal pain, h/o nec pancreatitis COMPARISON: Prior CT scan from 07/04/2022 TECHNIQUE: Multidetector volumetric CT imaging of the chest abdomen and pelvis obtained Axial MIP volume rendering provided. Sagittal and coronal reformatted images were obtained. This CT examination was performed using dose optimization techniques as appropriate, variously including the following: *Automated exposure control *Adjustment of mA and/or kV according to patient size (this includes techniques or standardized protocols for targeted exams where dose is matched to indication/reason for exam; i.e. extremities or head) *Use of iterative reconstruction technique CONTRAST: 85 mL of Omnipaque 350 injected Reformatted coronal and sagittal imaging was performed. 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 LUNGS: Interstitial: There are patchy groundglass opacities right and left upper lobe possibly mild patchy interstitial pneumonitis. There is dense consolidation/atelectasis at right lower lobe pneumonia. Lung nodules: Tiny densities less than 3 mm including the one in the left lower lobe, no suspicious lung mass. AIRWAYS: Trachea and bronchi are normal. PLEURA: No pleural effusion or pneumothorax. MEDIASTINUM AND PREMA: The visualized thyroid gland is unremarkable. No mediastinal, hilar or axillary lymphadenopathy. There is no mediastinal mass. THORACIC AORTA: Thoracic aorta is normal in size. CHEST WALL, LOWER NECK, SURROUNDING SOFT TISSUES: Normal HEART AND PERICARDIUM: Heart is normal in size. There is no pericardial effusion. HEPATOBILIARY: No focal hepatic lesions. No biliary ductal dilatation. GALLBLADDER: Gallbladder not found might be contracted or have been removed. SPLEEN: Spleen is normal in size. PANCREAS: Small atrophic pancreas, there is very mild peripancreatic fat stranding around the body of the pancreas suggesting possibly mild pancreatitis. GI TRACT: There are mildly dilated small bowel loops throughout the abdomen, there is fecalization of its content suggesting partial obstruction, the distal loops of small bowel's and terminal ileum are normal in size. Relative transition zone in the right lower quadrants could be sequela of adhesion.. Appendix not directly visualized however no pericecal fat stranding or other process to suggest appendicitis. ADRENALS: No adrenal nodules. KIDNEYS/URETERS: There is a simple cyst right kidney 1.1 cm Bosniak class I almost certainly benign no follow-up is required. PELVIC ORGANS/BLADDER: IUD in place. Uterine calcification probably small necrotic uterine fibroids. Trace amount of free fluid in the pelvis. PERITONEUM: There is a small amount of free fluid in the abdomen and pelvis LYMPH NODES: no retroperitoneal or mesenteric lymphadenopathy. VASCULAR:Abdominal aorta normal in size, no aneurysm found. BONES, ABDOMINAL WALL AND SOFT TISSUES: Age-appropriate changes of the spine and skeletal system, no destructive osteolytic or osteosclerotic bone lesion found intervertebral disc spacer at L4-L5. CT/CT abdomen pelvis w IV con IMPRESSION: * Dense consolidation/atelectasis at right lower lobe pneumonia. * Patchy groundglass opacities in the upper lobes possibly mild interstitial pneumonitis. * Mildly dilated small bowel loops throughout the abdomen, there is fecalization of its content suggesting fluid stagnation, this is consistent with partial small bowel obstruction, relative transition zone in the right lower quadrant could be sequela of adhesion versus focal inflammation such as due to IBD Crohn's,. [place] image surgical evaluation warranted. This could be evaluated further with follow-up small bowel follow-through Gastrografin study. * Small amount of free fluid in the abdomen and pelvis. * Small atrophic pancreas, there is mild peripancreatic fat stranding around the body of the pancreas suggesting possibly mild pancreatitis, please correlate with patient's laboratory data and amylase lipase. * Tracheostomy tube in place properly positioned. * Other noncritical findings described above.
[2022-10-16 10:16] VITALS: BP 164/72; PULSE 103; RESP 18; TEMP 36.8; O2SAT 89; BMI 38.4
--- NOTE | 2022-10-16 10:54 | ED.ABDPAIN ---
HPI - Abdominal Pain General Chief Complaint: Abdominal Pain Stated Complaint: abd pain vomiting Time Seen by Provider: 10/16/22 10:48 Source: patient Mode of arrival: ambulatory Limitations: no limitations History of Present Illness HPI narrative: 51-year-old female with past medical history of asthma, bipolar disorder, diabetes,? 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 Patient reports 4 days ago she had a fall secondary to loss of balance striking her right ribs on a small stool. NO head strike or LOC. She has had right rib pain since. Woke up the next day with diffuse abdominal pain and vomiting. No diarrhea, fevers, chills, urinary symptoms, shortness of breath or cough. Related Data Home Medications Medication Instructions Recorded Confirmed albuterol sulfate 2.5 mg/3 mL 1 vial inhalation Q4H PRN wheezing 10/28/21 04/06/22 (0.083 %) solution for nebulization atorvastatin 10 mg tablet 1 tab PO DAILY 10/28/21 04/06/22 clonazepam 1 mg tablet 1 tab PO BID PRN Anxiety 10/28/21 04/06/22 escitalopram oxalate 20 mg tablet 1 tab PO BEDTIME 10/28/21 04/06/22 famotidine 20 mg tablet 1 tab PO BID 10/28/21 04/06/22 fluticasone propionate 50 1 spray intranasal DAILY 10/28/21 04/06/22 mcg/actuation nasal spray,suspension glipizide 5 mg tablet 1 tab PO BIDAC 10/28/21 04/06/22 lurasidone 60 mg tablet (Latuda) 1 tab PO DAILY 10/28/21 04/06/22 oxcarbazepine 300 mg tablet 1 tab PO BID 10/28/21 04/06/22 promethazine 25 mg tablet 1 tab PO DAILY PRN nausea 10/28/21 04/06/22 trazodone 100 mg tablet 1 tab PO BEDTIME 10/28/21 04/06/22 albuterol sulfate 90 mcg/actuation 2 puff inhalation QID PRN 01/24/22 04/06/22 aerosol inhaler (Ventolin HFA) Shortness Of Breath diphenhydramine HCl 25 mg capsule 25 mg PO Q6H PRN POST NASAL DRIP 01/24/22 04/06/22 (Benadryl) tizanidine 4 mg tablet 1 tab PO DAILY PRN muscle spasm 01/24/22 04/06/22 fluticasone 500 mcg-salmeterol 50 1 puff inhalation BID 04/06/22 04/06/22 mcg/dose blistr powdr for inhalation (Advair Diskus) Previous Rx's Medication Instructions Recorded apixaban 5 mg tablet (Eliquis) 5 mg PO BID #60 tabs 03/22/22 insulin glargine 100 unit/mL (3 10 unit (0.1 mL) subcut QAM #15 mL 04/07/22 mL) subcutaneous pen (Lantus Solostar U-100 Insulin) insulin lispro 100 unit/mL 1 sliding scale dose subcut 04/07/22 subcutaneous pen (Humalog KwikPen USEASDIRECTD #15 mL (U-100) Insulin) prednisone 20 mg tablet 40 mg PO DAILY #8 tabs 04/07/22 benzonatate 200 mg capsule 200 mg PO BID PRN cough 5 days #15 07/04/22 caps cefpodoxime 200 mg tablet 200 mg PO Q12H 7 days #14 tabs 07/04/22 oxycodone 5 mg tablet 5 mg PO TID PRN pain 3 days #9 tabs 07/04/22 prednisone 20 mg tablet 60 mg PO DAILY 7 days #21 tabs 07/04/22 Allergies Allergy/AdvReac Type Severity Reaction Status Date / Time pantoprazole Allergy Unknown Verified 10/16/22 10:22 Review of Systems Review of Systems Yes all other systems are reviewed and are negative Constitutional: Reports no additional constitutional complaints, Denies body ache(s), Denies chills, Denies fever(s), Denies headache(s) and Denies weakness Eyes: Reports no additional eye complaints and Denies change in vision Reports system reviewed and no additional complaints, except as documented, Denies dizziness, Denies headache(s), Denies nasal congestion, Denies nasal discharge and Denies neck pain Cardiovascular: Reports no additional cardiovascular complaints, Reports chest pain, Denies leg edema and Denies dyspnea Respiratory: Reports no additional respiratory complaints, Denies cough and Denies dyspnea Gastrointestinal: Reports no additional gastrointestinal complaints, Reports abdominal pain, Denies diarrhea, Reports nausea and Reports vomiting Genitourinary: Reports no additional female genitourinary complaints and Denies urinary incontinence Musculoskeletal: Reports no additional musculoskeletal complaints, Denies back pain, Denies arthralgias, Denies joint swelling, Denies neck pain, Denies numbness and Denies tingling Skin/Breast: Reports system reviewed and no additional complaints, except as docu and Denies rash Reports system reviewed and no additional complaints, except as documented, Denies dizziness, Denies headache(s), Denies numbness, Denies tingling and Denies weakness [facility] Past Medical History Attestation statement: The following information was validated with the patient. 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) Alcohol intake: never Patient Tobacco Use Status: Never used Tobacco Second Hand Smoke Exposure: Yes Advance Directives: Yes Advance Directives on File: Yes Advance Directives Date on File: 01/25/22 service: No Current occupational status: disabled Physical Exam ED Vital Signs: Vital Signs - 24 hr 10/16/22 10:16 10/16/22 14:15 10/16/22 14:45 Temperature 98.2 F Pulse Rate 103 H Respiratory Rate 18 Blood Pressure 164/72 H Pulse Oximetry 89 L 87 L 96 Oxygen Delivery Method Room Air Room Air Nasal Cannula Oxygen Flow Rate 3 BMI result Body Mass Index 38.4 Const General: cooperative, healthy appearing, comfortable and no acute distress Orientation/consciousness: patient oriented x3 Limitations: no limitations HENMT Head: Yes normal to inspection Ears: hearing grossly normal bilaterally Eyes General: appearance normal, both eyes and all related structures Pupils: Equal, round and reactive pupils present Neck Neck: Yes normal visual inspection, Yes full ROM, Yes no lymphadenopathy and Yes no meningeal signs Chest Chest palpation & inspection: normal inspection of the chest and tenderness (right lateral chest wall with no crepitus or ecchymosis ) Resp Effort & Inspection: normal respiratory effort Auscultation: clear to auscultation bilaterally Cardio Rate: regular rate Rhythm: regular rhythm Peripheral pulses: Peripheral pulses 2+ throughout GI Other: +skin graft site seen Palpation (GI): Soft to palpation, Tenderness to palpation present (GI) (diffusely TTP) with no rebound tenderness and no guarding Auscultation: normal bowel sounds General: Yes no CVA tenderness Back/Spine/Pelvis Back: no CVA tenderness Thoracic/Lumbar Spine: thoracic and lumbar spine normal to inspection Skin General skin exam: no rashes or lesions noted Neuro General: patient oriented x3, moves all extremities and no meningeal signs Cranial nerves: Yes Equal, round and reactive pupils present Cognition (Neuro): normal cognition Gait exam (Neuro): Normal gait present Extrem General: Yes normal to inspection, Yes no pedal edema and Yes no calf tenderness Course Course Course Narrative: 1345-CT is consistent with right lower lobe pneumonia. At this time infection is suspected. Antibiotics ordered. CT is also concerning for mild pancreatitis. Patient has history of same. There is also concern for small bowel obstruction with multiple fluid-filled bowel loops. Call out to surgery to discussed. Patient will need admission for further management Medical Decision Making Medical Decision Making MDM Narrative: 51-year-old female with past medical history of asthma, bipolar disorder, diabetes,? 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 Does not beleive she hit her abdomen. No head strike or LOC. On arrival patient with diffuse abdominal TTP with no rebound or guarding. +BS. RA saturation 89%. Patient denies cough or SOB. She does have oxygen at home which she uses prn. LS CTA. Will obtain labs, EKG, CT abdomen/pelvis/chest, UA Will give antiemetic, analgesia Differential Diagnosis Differential Diagnoses: The differential diagnosis associated with the presentation includes Low concern for PE as patient is compliant with eliquis Consider rib fracture, PTX, PNA, intra-abdominal pathology Admission/Observation Consideration of admission/observation: Escalation of care including admission/observation considered Patient has a CT that is concerning for pneumonia and pancreatitis. Patient is requiring supplemental oxygen. Patient will be admitted to Medicine for IV antibiotics and further manage Consult Healthcare Provider Management of the patient was discussed with: Hospitalist and Nursery Laborer 1356-I spoke to General surgery Dr. Freedman-he reviewed the CT of the abdomen and pelvis. He tells me that there is a large abdominal wall hernia but there is no evidence of obstruction. Likely the patient is chronically dilated. There is no air-fluid levels. No surgical intervention. Low concern for bowel obstruction 1445-I spoke to hospitalist for admission. Report given to Danae FRANZ who accepted admission Lab Data MDM Lab Attestation statement: I reviewed the patient's lab results. 10/16/22 11:43 10/16/22 11:43 Labs: Lab Results 10/16/22 10/16/22 10/16/22 Range/Units 11:43 11:43 11:43 WBC 9.9 (4.8-10.8) X10*3/uL RBC 4.68 (4.20-5.50) X10*6/uL Hgb 12.6 (12.0-16.0) g/dl Hct 40.2 (37.0-47.0) % MCV 85.9 (80.0-98.0) fL MCH 26.9 L (27.0-33.0) pg MCHC 31.3 (31.0-35.0) g/dl RDW 12.9 (11.0-16.0) % Plt Count 401 H (160-400) X10*3/uL MPV 9.4 (9.4-12.3) fL Immature Gran % (Auto) 0.6 H (0.0-0.4) % Neut % (Auto) 89.2 H (45-73) % Lymph % (Auto) 6.1 L (20-40) % [place] % (Auto) 2.9 (2-11) % Eos % (Auto) 0.8 (0-4) % Baso % (Auto) 0.4 (0-2) % Lymph # (Auto) 0.6 L (1.2-4.9) X10*3/uL [place] # (Auto) 0.3 (0.1-1.2) X10*3/uL Eos # (Auto) 0.1 (0.0-0.4) X10*3/uL Baso # (Auto) 0.0 (0.0-0.2) X10*3/uL Abs Immat Gran (auto) 0.06 H (0.00-0.03) X10*3/uL Absolute Neuts (auto) 8.8 H (2.0-8.3) x10*3/uL Absolute Nucleated RBC 0.000 (0.0-0.012) X10*3/uL Nucleated RBC % (auto) 0.0 (0.0-0.2) /100WBC PT 13.6 H (11.1-13.3) SEC INR 1.1 (0.9-1.1) Sodium 138 (135-145) mmol/L Potassium 5.0 (3.3-5.1) mmol/L Chloride 96 (96-108) mmol/L Carbon Dioxide 31 H (22-29) mmol/L Anion Gap 16 (12-20) BUN 11 (9-16) mg/dL Creatinine 1.22 (0.5-1.4) mg/dL Estim Creat Clear Calc 58.0 Estimated GFR 46 Random Glucose 254 H (60-115) mg/dL Lactic Acid (0.5-2.0) mmol/L Calcium 9.5 (8.4-10.2) mg/dL Magnesium 1.7 (1.6-2.6) mg/dL Total Bilirubin 0.4 (0.0-1.0) mg/dL Direct Bilirubin 0.2 (0.0-0.5) mg/dL AST 10 (5-31) U/L ALT 13 (0-31) U/L Alkaline Phosphatase 176 H (39-117) U/L Troponin I High Sens (<3.5-17.0) ng/L Total Protein 7.2 (6.5-8.0) g/dL Albumin 3.7 (3.5-5.0) g/dL Lipase 5 L (8-78) U/L COVID-19 (PRETTY) (Negative) COVID-19 Clin Com 10/16/22 10/16/22 10/16/22 Range/Units 11:43 11:43 11:43 WBC (4.8-10.8) X10*3/uL RBC (4.20-5.50) X10*6/uL Hgb (12.0-16.0) g/dl Hct (37.0-47.0) % MCV (80.0-98.0) fL MCH (27.0-33.0) pg MCHC (31.0-35.0) g/dl RDW (11.0-16.0) % Plt Count (160-400) X10*3/uL MPV (9.4-12.3) fL Immature Gran % (Auto) (0.0-0.4) % Neut % (Auto) (45-73) % Lymph % (Auto) (20-40) % [place] % (Auto) (2-11) % Eos % (Auto) (0-4) % Baso % (Auto) (0-2) % Lymph # (Auto) (1.2-4.9) X10*3/uL [place] # (Auto) (0.1-1.2) X10*3/uL Eos # (Auto) (0.0-0.4) X10*3/uL Baso # (Auto) (0.0-0.2) X10*3/uL Abs Immat Gran (auto) (0.00-0.03) X10*3/uL Absolute Neuts (auto) (2.0-8.3) x10*3/uL Absolute Nucleated RBC (0.0-0.012) X10*3/uL Nucleated RBC % (auto) (0.0-0.2) /100WBC PT (11.1-13.3) SEC INR (0.9-1.1) Sodium (135-145) mmol/L Potassium (3.3-5.1) mmol/L Chloride (96-108) mmol/L Carbon Dioxide (22-29) mmol/L Anion Gap (12-20) BUN (9-16) mg/dL Creatinine (0.5-1.4) mg/dL Estim Creat Clear Calc Estimated GFR Random Glucose (60-115) mg/dL Lactic Acid 1.3 (0.5-2.0) mmol/L Calcium (8.4-10.2) mg/dL Magnesium (1.6-2.6) mg/dL Total Bilirubin (0.0-1.0) mg/dL Direct Bilirubin (0.0-0.5) mg/dL AST (5-31) U/L ALT (0-31) U/L Alkaline Phosphatase (39-117) U/L Troponin I High Sens < 2.7 (<3.5-17.0) ng/L Total Protein (6.5-8.0) g/dL Albumin (3.5-5.0) g/dL Lipase (8-78) U/L COVID-19 (PRETTY) Negative (Negative) COVID-19 Clin Com See Note Independent Interpretation I performed an independent interpretation of an: EKG and CT Scan Interpretation: i have indepedentely reviewed the CT scan and agree with the radiology report I independently reviewed the EKG which shows normal sinus rhythm with a rate of 90, normal LA, normal QRS, no qt Radiology Impression Discussion of test interpretation with radiology: I have reviewed the radiologist's reading. Radiologist Impression: [place] [id number] CT Scan Report Signed Patient: Anna Marie Black MR#: [id number] : 1970 Acct:[id number] Age/Sex: 51 / F ADM Date: 10/16/22 Loc: .ED Attending Dr: Ordering Physician: Desiree Krishna NP Date of Service: 10/16/22 Procedure(s): CT abdomen pelvis w IV con Accession Number(s): [id number] cc: Desiree Krishna NP~ EXAMINATION: CT CHEST, ABDOMEN AND PELVIS with contrast CLINICAL INFORMATION: Reason for Exam abdominal pain, h/o nec pancreatitis COMPARISON: Prior CT scan from 07/04/2022 TECHNIQUE:? Multidetector volumetric CT imaging of the chest abdomen and pelvis obtained Axial MIP volume rendering provided. Sagittal and coronal reformatted images were obtained. This CT examination was performed using dose optimization techniques as appropriate, variously including the following: *Automated exposure control *Adjustment of mA and/or kV according to patient size (this includes techniques or standardized protocols for targeted exams where dose is matched to indication/reason for exam; i.e. extremities or head) *Use of iterative reconstruction technique CONTRAST: 85 mL of Omnipaque 350 injected Reformatted coronal and sagittal imaging was performed. DLP: 1367 mGy-cm FINDINGS: CONVERSION DEVELOPER, LINES TUBES: Tracheostomy tube in place properly positioned. LUNGS: Interstitial: There are patchy groundglass opacities right and left upper lobe possibly mild patchy interstitial pneumonitis. There is dense consolidation/atelectasis at right lower lobe pneumonia. Lung nodules: Tiny densities less than 3 mm including the one in the left lower lobe, no suspicious lung mass. AIRWAYS: Trachea and bronchi are normal. PLEURA: No pleural effusion or pneumothorax. MEDIASTINUM AND PREMA: The visualized thyroid gland is unremarkable. No mediastinal, hilar or axillary lymphadenopathy. ? There is no mediastinal mass. THORACIC AORTA: Thoracic aorta is normal in size. CHEST WALL, LOWER NECK, SURROUNDING SOFT TISSUES: Normal HEART AND PERICARDIUM: Heart is normal in size. There is no pericardial effusion. HEPATOBILIARY: No focal hepatic lesions. No biliary ductal dilatation. GALLBLADDER: Gallbladder not found might be contracted or have been removed. SPLEEN: Spleen is normal in size. PANCREAS: Small atrophic pancreas, there is very mild peripancreatic fat stranding around the body of the pancreas suggesting possibly mild pancreatitis. GI TRACT: There are mildly dilated small bowel loops throughout the abdomen, there is fecalization of its content suggesting partial obstruction, the distal loops of small bowel's and terminal ileum are normal in size. Relative transition zone in the right lower quadrants could be sequela of adhesion.. Appendix not directly visualized however no pericecal fat stranding or other process to suggest appendicitis. ADRENALS: No adrenal nodules. KIDNEYS/URETERS: There is a simple cyst right kidney 1.1 cm Bosniak class I almost certainly benign no follow-up is required. PELVIC ORGANS/BLADDER: IUD in place. Uterine calcification probably small necrotic uterine fibroids. Trace amount of free fluid in the pelvis. PERITONEUM: There is a small amount of free fluid in the abdomen and pelvis LYMPH NODES:? no retroperitoneal or mesenteric lymphadenopathy. VASCULAR:Abdominal aorta normal in size, no aneurysm found. BONES, ABDOMINAL WALL AND SOFT TISSUES: Age-appropriate changes of the spine and skeletal system, no destructive osteolytic or osteosclerotic bone lesion found intervertebral disc spacer at L4-L5. CT/CT abdomen pelvis w IV con IMPRESSION: ? *? Dense consolidation/atelectasis at right lower lobe pneumonia. ? *? Patchy groundglass opacities in the upper lobes possibly mild interstitial pneumonitis. ? *? Mildly dilated small bowel loops throughout the abdomen, there is fecalization of its content suggesting fluid stagnation, this is consistent with partial small bowel obstruction, relative transition zone in the right lower quadrant could be sequela of adhesion versus focal inflammation such as due to IBD Crohn's,. Magallanes image surgical evaluation warranted. This could be evaluated further with follow-up small bowel follow-through Gastrografin study. ? *? Small amount of free fluid in the abdomen and pelvis. ? *? Small atrophic pancreas, there is mild peripancreatic fat stranding around the body of the pancreas suggesting possibly mild pancreatitis, please correlate with patient's laboratory data and amylase lipase. ? *? Tracheostomy tube in place properly positioned. ? *? Other noncritical findings described above. ? Chronic Conditions Patient?s care impacted by: Diabetes Medications Administered Generic Name Dose Route Start Last Admin Trade Name Freq PRN Reason Stop Dose Admin Azithromycin 500 mg/ Sodium 250 mls @ 125 mls/hr 10/16/22 13:47 10/16/22 14:39 Chloride IV 10/16/22 15:46 125 mls/hr ONCE ONE Administration Discontinued Medications Generic Name Dose Route Start Last Admin Trade Name Freq PRN Reason Stop Dose Admin Hydromorphone HCl 1 mg 10/16/22 13:41 10/16/22 13:47 Hydromorphone Hcl 1 Mg/Ml Syringe IVPUSH 10/16/22 13:42 1 mg ONCE ONE Administration Protocol Ceftriaxone Sodium 2 gm/ 50 mls @ 100 mls/hr 10/16/22 13:47 10/16/22 14:39 Sodium Chloride IV 10/16/22 14:16 Infused ONCE ONE Infusion Iohexol 100 ml 10/16/22 12:51 10/16/22 12:52 Iohexol 350 Mg/Ml 100 Ml Infus..Btl IV 10/16/22 12:52 85 ml ONCE ONE Administration Morphine Sulfate 4 mg 10/16/22 10:59 10/16/22 11:59 Morphine Sulfate 4 Mg/Ml Cartridge IVPUSH 10/16/22 11:00 4 mg ONCE ONE Administration Protocol Ondansetron HCl 4 mg 10/16/22 10:59 10/16/22 11:59 Ondansetron Hcl 4 Mg/2 Ml Vial IVPUSH 10/16/22 11:00 4 mg ONCE ONE Administration Critical Care Time Critical Care Time Critical Care Time: Yes Total Critical Care Time: 90 Attestation: Hypoxia requiring supplemental oxygen. Re about else for abdominal pain and pain assessment Discussion was General surgery in regard CT result It discussion with medicine for admission, discussion with family and regards to disposition Discharge Plan Discharge Clinical Impression: Pancreatitis, Pneumonia, Hypoxia Patient Disposition: Admitted As Inpatient Prescriptions: No Action tizanidine 4 mg tablet 1 tab PO DAILY PRN (Reason: muscle spasm) albuterol sulfate [Ventolin HFA] 90 mcg/actuation HFA aerosol inhaler 2 puff inhalation QID PRN (Reason: Shortness Of Breath) diphenhydramine HCl [Benadryl] 25 mg Capsule 25 mg PO Q6H PRN (Reason: POST NASAL DRIP) albuterol sulfate 2.5 mg /3 mL (0.083 %) solution for nebulization 1 vial inhalation Q4H PRN (Reason: wheezing) atorvastatin 10 mg tablet 1 tab PO DAILY clonazepam 1 mg tablet 1 tab PO BID PRN (Reason: Anxiety) oxcarbazepine 300 mg tablet 1 tab PO BID famotidine 20 mg tablet 1 tab PO BID trazodone 100 mg tablet 1 tab PO BEDTIME promethazine 25 mg tablet 1 tab PO DAILY PRN (Reason: nausea) fluticasone propionate 50 mcg/actuation spray,suspension 1 spray intranasal DAILY glipizide 5 mg tablet 1 tab PO BIDAC escitalopram oxalate 20 mg tablet 1 tab PO BEDTIME Latuda 60 mg tablet 1 tab PO DAILY Eliquis 5 mg tablet 5 mg PO BID Qty: 60 0RF fluticasone propion-salmeterol [Advair Diskus] 500-50 mcg/dose blister with device 1 puff INHALATION BID prednisone 20 mg tablet 40 mg PO DAILY Qty: 8 0RF insulin lispro [Humalog KwikPen Insulin] 100 unit/mL insulin pen 1 sliding scale dose subcut USEASDIRECTD Qty: 15 0RF Rx Instructions: Administer 3 times day before meals after checking glucose: 0 units if <150 2 units if 150-199 4 units if 200-249 6 units if 250-299 8 units if 300-349 10 units if 350-399 Call PCP if >400 insulin glargine [Lantus Solostar U-100 Insulin] 100 unit/mL (3 mL) insulin pen 10 unit subcut QAM Qty: 15 0RF prednisone 20 mg tablet 60 mg PO DAILY 7 Days Qty: 21 0RF cefpodoxime 200 mg tablet 200 mg PO Q12H 7 Days Qty: 14 0RF Rx Instructions: must administer with a meal/food oxycodone 5 mg tablet 5 mg PO TID PRN (Reason: pain) 3 Days Qty: 9 0RF Rx Instructions: Partial Fill upon patient request. benzonatate 200 mg capsule 200 mg PO BID PRN (Reason: cough) 5 Days Qty: 15 0RF
--- NOTE | 2022-10-16 10:59 | ECG_ITS ---
Test Reason : CHEST PAIN Blood Pressure : / mmHG Vent. Rate : 090 BPM Atrial Rate : 090 BPM P-R Int : 156 ms QRS Dur : 082 ms QT Int : 386 ms P-R-T Axes : 050 -15 043 degrees QTc Int : 472 ms Normal sinus rhythm Low voltage QRS Cannot rule out Anterior infarct (cited on or before 05-APR-2022) Abnormal ECG When compared with ECG of 04-JUL-2022 14:36, No significant change was found Referred By: Desiree Lundy Electronically Signed By:DENIS GAMBINO
[2022-10-16 11:53] LABS: MANUAL DIFF FLAG NO
[2022-10-16 11:55] LABS: Basophils Percent Auto 0.4 % (0-2); Eosinophils Absolute Auto 0.1 X10*3/uL (0.0-0.4); Eosinophils Percent Auto 0.8 % (0-4); Hematocrit 40.2 % (37.0-47.0); Hemoglobin 12.6 g/dl (12.0-16.0); Imm Gran Abs Auto 0.06 X10*3/uL (0.00-0.03); Imm Gran Pct Auto 0.6 % (0.0-0.4); Lymphocytes Absolute Auto 0.6 X10*3/uL (1.2-4.9); Lymphocytes Percent Auto 6.1 % (20-40); Mean Corpuscular HGB Conc 31.3 g/dl (31.0-35.0); Mean Corpuscular Hemoglobin 26.9 pg (27.0-33.0); Mean Corpuscular Volume 85.9 fL (80.0-98.0); Mean Platelet Volume 9.4 fL (9.4-12.3); Monocytes Absolute Auto 0.3 X10*3/uL (0.1-1.2); Monocytes Percent Auto 2.9 % (2-11); Neutrophils Absolute Auto 8.8 x10*3/uL (2.0-8.3); Neutrophils Percent Auto 89.2 % (45-73); Platelet Count 401 X10*3/uL (160-400); Red Blood Count 4.68 X10*6/uL (4.20-5.50); Red Cell Distribution Width 12.9 % (11.0-16.0); White Blood Count 9.9 X10*3/uL (4.8-10.8)
[2022-10-16] MEDS: ondansetron HCL 4 MG/2 ML VIAL IVPUSH (11:59)
[2022-10-16] MEDS: Morphine Sulfate 4 MG/ML CARTRIDGE IVPUSH (11:59)
[2022-10-16 12:01] LABS: INTERNATIONAL NORM RATIO 1.1 (0.9-1.1); Prothrombin Time 13.6 SEC (11.1-13.3)
[2022-10-16 12:08] LABS: Lactic Acid 1.3 mmol/L (0.5-2.0)
[2022-10-16 12:12] LABS: Alanine Aminotransferase 13 U/L (0-31); Albumin Level 3.7 g/dL (3.5-5.0); Alkaline Phosphatase 176 U/L (39-117); Anion Gap 16 (12-20); Aspartate Amino Transferase 10 U/L (5-31); Bilirubin Direct 0.2 mg/dL (0.0-0.5); Bilirubin Total 0.4 mg/dL (0.0-1.0); Blood Urea Nitrogen 11 mg/dL (9-16); Calcium 9.5 mg/dL (8.4-10.2); Carbon Dioxide 31 mmol/L (22-29); Chloride 96 mmol/L (96-108); Estimated Glomerular Filt Rate 46; Glucose Random 254 mg/dL (60-115); Lipase 5 U/L (8-78); Magnesium 1.7 mg/dL (1.6-2.6); Sodium 138 mmol/L (135-145); Total Protein 7.2 g/dL (6.5-8.0)
[2022-10-16 12:15] LABS: COVID-19 Test Negative (Negative); IDNOW Serial# 9DB6401D
[2022-10-16 12:20] LABS: Troponin-I High Sensitivity < 2.7 ng/L (<3.5-17.0)
[2022-10-16] MEDS: iohexoL 350 MG/ML 100 ML INFUS..BTL IV (12:52)
[2022-10-16] MEDS: HYDROmorphone HCl 1 MG/ML SYRINGE IVPUSH (13:47)
[2022-10-16] MEDS: cefTRIAXone sodium 2 GM in 0.9 % Sodium Chloride 50 ML IV (13:56)
[2022-10-16 14:15] VITALS: O2SAT 87
[2022-10-16] MEDS: Azithromycin 500 MG in 0.9 % Sodium Chloride 250 ML 125 MG IV (14:39)
[2022-10-16 14:45] VITALS: O2SAT 96
--- NOTE | 2022-10-16 15:12 | PHA.MEDREC ---
Pharmacy Consult ? Medication Reconciliation Pharmacy has completed the medication reconciliation. spoke with patient to confirm medications. She reported her metformin is currently on hold. Spoke with her over the phone to confirm a few of her medications as well since patient was unsure about glipizide frequency. Patient says she did not take any meds today.
--- NOTE | 2022-10-16 15:19 | PM.IMHP ---
History of Present Illness Date of Service: 10/16/22 Attending physician on admission: Ace Cuevas Chief Complaint: abd pain 51-year-old female with a past medical history of hypertension, hyperlipidemia, diabetes, asthma, history of acute respiratory failure secondary to asthma exacerbation requiring intubation, complicated by cardiac arrest x2, subsequently had tracheostomy, has trach collar; history of necrotizing pancreatitis status post surgery; kidney stones-recently had stent removed by Dr. Agosto; history of ESBL UTI; anxiety, depression, bipolar disorder, takotsubo cardiomyopathy, and history of PE anticoagulated with Eliquis?presented to the hospital for evaluation of severe abdominal pain with recurrent vomiting. The patient states that she lost her balance about 3 days ago and hit the right side of her ribs on a stool. Since then has had diffuse abdominal pain without any radiation. Pain is worst in the lower area of the abdomen. There is nausea and vomiting. She has been moving her bowels and had a single episode of diarrhea yesterday. She rates the pain as a 10/10 constant pain and has not been eating or drinking much. Secondary to the pain. She also tells me she has had an occasionally productive cough ongoing for several weeks that worsened several days ago with associated shortness of breath. On arrival, patient tachypneic to 22 did develop tachycardic to 103 and hypoxia to 87% placed on 3 L supplemental O2. No hypoxia and she is afebrile. There is no leukocytosis. Renal function is baseline, electrolyte levels are normal. Glucose 254. Hepatic function normal. Lactic acid 1.3. Lipase 5 troponin below detectable limits. Negative for COVID-19. Chest CT shows dense consolidation/atelectasis at the right lower lobe with pneumonia. There is also patchy ground-glass opacities in the upper lobes possibly mild interstitial pneumonitis. Patient denies any aspiration. CT abdomen/pelvis shows a small amount of free fluid in the abdomen and pelvis as well as mildly dilated small bowel loops throughout the abdomen with fecalization of the contents suggesting fluid stagnation consistent with partial small bowel obstruction relative transition zone in the right lower quadrant could be sequela of adhesion versus focal inflammation, surgical evaluation warranted. There is also small atrophic pancreas with mild peripancreatic fat stranding around the pancreas suggesting possible mild pancreatitis. In the ED given 1 L IV NS, ondansetron, 1g ceftriaxone and 500mg iv azithromycin. Review of Systems Review of Systems: General: No fevers, malaise, unintentional weight loss HEENT: No blurred vision, diplopia. No sore throat, nasal congestion, rhinorrhea, sinus pain, ear pain Cardiovascular: No chest pain, palpitations, or leg edema Respiratory: +sob, +cough. No wheezing GI: +abdominal pain, +nausea, +vomiting, +diarrhea. No constipation, melena, hematochezia : No dysuria, hematuria, increased urinary frequency, decreased urinary output MSK: No myalgia, back pain Neuro: No headaches, weakness, paresthesias Skin: No rashes or lesions [facility] Medical History Asthma Bipolar 1 disorder Diabetes History of cardiac arrest Kidney stones Substance abuse Takotsubo cardiomyopathy UTI (urinary tract infection) Wound drainage Family History Mother No pertinent family history Father No pertinent family history Surgical History H/O exploratory laparotomy S/P cholecystectomy S/P ureteral stent placement Social History Household Members: Spouse Household Members Other:: 1 Housing: Apartment Do you presently have visiting nurse 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) Alcohol intake: never Patient Tobacco Use Status: Never used Tobacco Second Hand Smoke Exposure: Yes Advance Directives: Yes Advance Directives on File: Yes Advance Directives Date on File: 01/25/22 service: No Current occupational status: disabled Meds Allergies Allergy/AdvReac Type Severity Reaction Status Date / Time pantoprazole Allergy Unknown Verified 10/16/22 10:22 Active Medications: Current Medications Acetaminophen (Acetaminophen 325 Mg Tablet) 650 mg PO Q6H PRN PRN Reason: Pain, Mild (Pain Scale 1-3) Albuterol Sulfate (Albuterol Sulfate (0.083%) 2.5 Mg/3 Ml Vial.Neb) mg INHALE Q4H PRN PRN Reason: wheezing Albuterol Sulfate (Albuterol Sulfate 90 Mcg 8 Gm Inhaler) 2 puff INHALE QID PRN PRN Reason: Shortness Of Breath Apixaban (Apixaban 5 Mg Tablet) 5 mg PO BID [facility] Atorvastatin Calcium (Atorvastatin Calcium 10 Mg Tablet) 10 mg PO DAILY [facility] Clonazepam (Clonazepam 1 Mg Tablet) 1 mg PO BID [facility] Diphenhydramine HCl (Diphenhydramine Hcl 25 Mg Capsule) 25 mg PO Q6H PRN PRN Reason: POST NASAL DRIP Docusate Sodium (Docusate Sodium 100 Mg Capsule) 100 mg PO DAILY PRN PRN Reason: Constipation Escitalopram Oxalate (Escitalopram Oxalate 20 Mg Tablet) 20 mg PO BEDTIME [facility] Famotidine (Famotidine 20 Mg Tablet) 20 mg PO BID [facility] Fluticasone Propionate (Fluticasone Propionate Nasal 16 Gm Rankin) 1 spray NOSTRIL-B DAILY [facility] Gabapentin (Gabapentin 100 Mg Capsule) 100 mg PO TID [facility] Azithromycin 500 mg/ Sodium (Chloride) 250 mls @ 125 mls/hr IV ONCE ONE Stop: 10/16/22 15:46 Last Admin: 10/16/22 14:39 Dose: 125 mls/hr Insulin Glargine (Insulin Glargine,Hum.Rec.Anlog 100 Unit/Ml 10 Ml Vial) 8 unit SUBCUT QAM [facility] Non-Formulary Medication (Lurasidone [Latuda]) 1 tab PO DAILY [facility] Ondansetron HCl (Ondansetron Hcl 4 Mg/2 Ml Vial) 4 mg IVPUSH Q8H PRN PRN Reason: Nausea and Vomiting Oxcarbazepine (Oxcarbazepine 300 Mg Tablet) 300 mg PO BID [facility] Pharmacy Consult (Consult Rx Perform Med Rec) 1 each MISCELLANE ONCE PRN PRN Reason: Consult order Promethazine HCl (Promethazine Hcl 25 Mg Tablet) 25 mg PO DAILY PRN PRN Reason: nausea Sodium Chloride (0.9 % Sodium Chloride Flush 3 Ml Syringe) 3 ml IVFLUSH QSHIFT [facility] Tizanidine HCl (Tizanidine Hcl 4 Mg Tablet) 4 mg PO DAILY PRN PRN Reason: muscle spasm Trazodone HCl (Trazodone Hcl 50 Mg Tablet) 150 mg PO BEDTIME [facility] Home Medications Medication Instructions Recorded Confirmed Last Taken Type albuterol sulfate 2.5 mg/3 mL 1 vial inhalation Q4H PRN wheezing 10/28/21 10/16/22 04/05/22 History (0.083 %) solution for nebulization atorvastatin 10 mg tablet 1 tab PO DAILY 10/28/21 10/16/22 04/05/22 History clonazepam 1 mg tablet 1 tab PO BID 10/28/21 10/16/22 04/05/22 History escitalopram oxalate 20 mg tablet 1 tab PO BEDTIME 10/28/21 10/16/22 04/05/22 History famotidine 20 mg tablet 1 tab PO BID 10/28/21 10/16/22 04/05/22 History fluticasone propionate 50 1 spray intranasal DAILY 10/28/21 10/16/22 04/05/22 History mcg/actuation nasal spray,suspension glipizide 5 mg tablet 1 tab PO BID 10/28/21 10/16/22 04/05/22 History lurasidone 60 mg tablet (Latuda) 1 tab PO DAILY 10/28/21 10/16/22 04/05/22 History oxcarbazepine 300 mg tablet 1 tab PO BID 10/28/21 10/16/22 04/05/22 History promethazine 25 mg tablet 1 tab PO DAILY PRN nausea 10/28/21 10/16/22 04/05/22 History albuterol sulfate 90 mcg/actuation 2 puff inhalation QID PRN 01/24/22 10/16/22 04/05/22 History aerosol inhaler (Ventolin HFA) Shortness Of Breath diphenhydramine HCl 25 mg capsule 25 mg PO Q6H PRN POST NASAL DRIP 01/24/22 10/16/22 04/05/22 History (Benadryl) tizanidine 4 mg tablet 1 tab PO DAILY PRN muscle spasm 01/24/22 10/16/22 04/05/22 History gabapentin 100 mg capsule 100 mg PO TID 10/16/22 10/16/22 Unknown History metformin 500 mg tablet,extended 1,000 mg PO BID 10/16/22 10/16/22 Unknown History release 24 hr trazodone 150 mg tablet 150 mg PO BEDTIME 10/16/22 10/16/22 Unknown History Physical Exam Vital Signs and Narrative: Vital Signs: Last Vital Signs Temp 98.2 F 10/16/22 10:16 Pulse 103 H 10/16/22 10:16 Resp 18 10/16/22 10:16 BP 164/72 H 10/16/22 10:16 Pulse Ox 96 10/16/22 14:45 O2 Del Method Nasal Cannula 10/16/22 14:45 O2 Flow Rate 3 10/16/22 14:45 BMI result Body Mass Index 38.4 Constitutional - Awake and Alert, No apparent distress Eyes - PERRLA, EOMI Cardiovascular - S1S2, RRR, No edema Respiratory - Normal lung expansion, Normal respiratory effort, No respiratory distress, crackles RLL Gastrointestinal -diffuse ttp greatest in periumbilical area and llq without rebound or guarding. ND; +BS. Large skin kodi covering right and mid abdomen. Extremities - no calf tenderness bilaterally, no swelling Skin - Warm/Dry Neurological - Alert & oriented x3 Psychological - Appropriate affect Results Labs 10/16/22 11:43 10/16/22 11:43 Labs: Laboratory Results - last 24 hr 10/16/22 10/16/22 10/16/22 11:43 11:43 11:43 MCV 85.9 MCH 26.9 L MCHC 31.3 RDW 12.9 Plt Count 401 H MPV 9.4 Immature Gran % (Auto) 0.6 H Neut % (Auto) 89.2 H Lymph % (Auto) 6.1 L [place] % (Auto) 2.9 Eos % (Auto) 0.8 Baso % (Auto) 0.4 Lymph # (Auto) 0.6 L [place] # (Auto) 0.3 Eos # (Auto) 0.1 Baso # (Auto) 0.0 Abs Immat Gran (auto) 0.06 H Absolute Neuts (auto) 8.8 H Absolute Nucleated RBC 0.000 Nucleated RBC % (auto) 0.0 PT 13.6 H INR 1.1 Anion Gap 16 Estim Creat Clear Calc 58.0 Estimated GFR 46 Random Glucose 254 H Lactic Acid Calcium 9.5 Magnesium 1.7 Total Bilirubin 0.4 Direct Bilirubin 0.2 AST 10 ALT 13 Alkaline Phosphatase 176 H Total Protein 7.2 Albumin 3.7 Lipase 5 L COVID-19 (PRETTY) COVID-19 Clin Com 10/16/22 10/16/22 11:43 11:43 MCV MCH MCHC RDW Plt Count MPV Immature Gran % (Auto) Neut % (Auto) Lymph % (Auto) [place] % (Auto) Eos % (Auto) Baso % (Auto) Lymph # (Auto) [place] # (Auto) Eos # (Auto) Baso # (Auto) Abs Immat Gran (auto) Absolute Neuts (auto) Absolute Nucleated RBC Nucleated RBC % (auto) PT INR Anion Gap Estim Creat Clear Calc Estimated GFR Random Glucose Lactic Acid 1.3 Calcium Magnesium Total Bilirubin Direct Bilirubin AST ALT Alkaline Phosphatase Total Protein Albumin Lipase COVID-19 (PRETTY) Negative COVID-19 Clin Com See Note Imaging Radiologist's Impressions: Impressions Abdomen/Pelvis CT 10/16/22 12:52 IMPRESSION: * Dense consolidation/atelectasis at right lower lobe pneumonia. * Patchy groundglass opacities in the upper lobes possibly mild interstitial pneumonitis. * Mildly dilated small bowel loops throughout the abdomen, there is fecalization of its content suggesting fluid stagnation, this is consistent with partial small bowel obstruction, relative transition zone in the right lower quadrant could be sequela of adhesion versus focal inflammation such as due to IBD Crohn's,. [place] image surgical evaluation warranted. This could be evaluated further with follow-up small bowel follow-through Gastrografin study. * Small amount of free fluid in the abdomen and pelvis. * Small atrophic pancreas, there is mild peripancreatic fat stranding around the body of the pancreas suggesting possibly mild pancreatitis, please correlate with patient's laboratory data and amylase lipase. * Tracheostomy tube in place properly positioned. * Other noncritical findings described above. Chest CT 10/16/22 12:52 IMPRESSION: * Dense consolidation/atelectasis at right lower lobe pneumonia. * Patchy groundglass opacities in the upper lobes possibly mild interstitial pneumonitis. * Mildly dilated small bowel loops throughout the abdomen, there is fecalization of its content suggesting fluid stagnation, this is consistent with partial small bowel obstruction, relative transition zone in the right lower quadrant could be sequela of adhesion versus focal inflammation such as due to IBD Crohn's,. [place] image surgical evaluation warranted. This could be evaluated further with follow-up small bowel follow-through Gastrografin study. * Small amount of free fluid in the abdomen and pelvis. * Small atrophic pancreas, there is mild peripancreatic fat stranding around the body of the pancreas suggesting possibly mild pancreatitis, please correlate with patient's laboratory data and amylase lipase. * Tracheostomy tube in place properly positioned. * Other noncritical findings described above. Assessment and Plan (1) Pancreatitis: Status: Acute (2) Pneumonia: Status: Acute (3) Hypoxia: Status: Acute (4) Intractable abdominal pain: Status: Acute Plan 51-year-old female with a past medical history of hypertension, hyperlipidemia, diabetes, asthma, history of acute respiratory failure secondary to asthma exacerbation requiring intubation, complicated by cardiac arrest x2, subsequently had tracheostomy, has trach collar; history of necrotizing pancreatitis status post surgery; kidney stones-recently had stent removed by Dr. Agosto; history of ESBL UTI; anxiety, depression, bipolar disorder, takotsubo cardiomyopathy, and history of PE anticoagulated with Eliquis?admitted for intractable abdominal pain and possible pancreatitis. #Severe intractable abdominal pain- ?r/t possible mild pancreatitis -CT abdomen/pelvis shows a small amount of free fluid in the abdomen and pelvis as well as mildly dilated small bowel loops throughout the abdomen with fecalization of the contents suggesting fluid stagnation consistent with partial small bowel obstruction relative transition zone in the right lower quadrant could be sequela of adhesion versus focal inflammation, surgical evaluation warranted. There is also small atrophic pancreas with mild peripancreatic fat stranding around the pancreas suggesting possible mild pancreatitis. -Aggressive IVF -Keep NPO for now for bowel rest, advance as tolerated -Pain management with pain scale -Ondansetron prn -General surgery consult placed #Acute hypoxic respiratory failure due to pneumonia- aspiration suspected -Negative for COVID, full viral respiratory panel pending -IV unasyn 3mg q6h -continue supplemental O2 to maintain oximetry >92%, titrate as tolerated -Symptomatic management -NPO for now, consider CONTROL SYSTEMS ENGINEER eval -Follow CBC, blood cultures #Mild intermittent asthma -no acute exacerbation -albuterol prn #Tracheostomy in place -[facility] qshift # [id number] type 2 diabetes with hyperglycemia -hyperglycemia likely secondary to recent steroid use -hold home p.o. meds -POC glucose -diabetic diet -5mg humalog QID and Humalog and sliding scale # HLD -continue atorvastatin # mood disorder -continue home med #History PE -eliquis DVT prophylaxis-on Eliquis Full code Pt requires inpt stay at least 2 midnights for management of intractable severe abdominal pain requiring NPO status for bowel rest and IV analgesics as well as supplemental O2 and IV abx for aspiration pneumonia with hypoxia. Time Spent With Patient Time: Total time managing care of this patient today ____ minutes. Quality Stroke Does the patient have a stroke diagnosis?: No VTE Prior VTE?: Yes VTE Risk Level:: Medical - moderate - high VTE Device Contraindication: Treatment Not Indicated VTE Drug Contraindication: N/A - Med Ordered
[2022-10-16] MEDS: oxyCODONE HCl Immed Release 5 MG TABLET PO (15:50)
[2022-10-16] MEDS: Acetaminophen 325 MG TABLET 975 MG PO (15:51)
[2022-10-16 16:26] VITALS: BP 116/59; PULSE 81; RESP 18; TEMP 36.4; O2SAT 97
[2022-10-16] MEDS: methylPREDNISolone Sod Succ 40 MG/ML VIAL IVPUSH (16:45)
[2022-10-16] MEDS: Ampicillin Sodium/Sulbactam Na 3 GM in 0.9 % Sodium Chloride 100 ML IV ×2 (16:47→21:14)
[2022-10-16] MEDS: Lactated Ringers 1,000 ML 150 ML IVCONT ×2 (17:29→23:10)
[2022-10-16 18:17] LABS: Glucose, Whole Blood 192 mg/dL (60-115)
[2022-10-16] MEDS: Insulin Lispro 100 UNIT/ML 3 ML VIAL SUBCUT ×2 (18:17→21:08)
[2022-10-16 21:05] LABS: Glucose, Whole Blood 246 mg/dL (60-115)
[2022-10-16] MEDS: HYDROmorphone HCl 0.5 MG/0.5 ML SYRINGE 0.25 MG IVPUSH (21:07)
[2022-10-16] MEDS: OXcarbazepine 300 MG TABLET PO (21:08)
[2022-10-16] MEDS: traZODone HCL 50 MG TABLET 150 MG PO (21:08)
[2022-10-16] MEDS: Famotidine 20 MG TABLET PO (21:08)
[2022-10-16] MEDS: Escitalopram Oxalate 20 MG TABLET PO (21:09)
[2022-10-16] MEDS: Gabapentin 100 MG CAPSULE PO (21:09)
[2022-10-16] MEDS: clonazePAM 1 MG TABLET PO (21:09)
[2022-10-16] MEDS: Apixaban 5 MG TABLET PO (21:09)
--- NOTE | 2022-10-16 21:20 | PC.NURSE ---
Pt aox4 resting at the bedside. No apparent distress. POC 246. Reports abd pain /. Medicated as ordered. Pt tolerated well. Pt is NPO and aware of plan of care.
--- NOTE | 2022-10-16 22:39 | PC.NURSE ---
Pt ambulatory to the restroom with no assist. Urine sample collected and sent to the lab.
[2022-10-16 22:45] LABS: Appearance Urine Clear; Color Urine Yellow; Glucose Urine UA Negative (Negative); Leukocyte Esterase Urine Small (1+) (Negative); Nitrite Urine Negative (Negative); UMIC TRIGGER UACC YES; Urine Blood Negative (Negative); Urine Ketones Negative (Negative); Urine Protein Negative (Neg-Trace)
[2022-10-16 22:50] LABS: Bacteria Urine None Seen (None Seen); Hyaline Casts Urine 0-2 /LPF (0-2); RBC Urine 0-2 /HPF (0-2); UACC Culture Trigger YES; WBC Urine 21-50 /HPF (0-5)
[2022-10-17] VITALS (7 sets, daily range): BP systolic 108–142; BP diastolic 46–69; PULSE 73–85; RESP 18–20; TEMP 36.1–37.2; O2SAT 92–97; BMI 38.4
[2022-10-17] MEDS: HYDROmorphone HCl 0.5 MG/0.5 ML SYRINGE 0.25 MG IVPUSH ×5 (01:18→16:07)
[2022-10-17] MEDS: diphenhydrAMINE HCL 25 MG CAPSULE PO (01:19)
[2022-10-17] MEDS: guaiFENesin 200 MG/10 ML 10 ML LIQUID PO ×2 (01:19→20:49)
--- NOTE | 2022-10-17 01:27 | PC.NURSE ---
Pt reports abd pain, 8/10, and cough. Medicated with PRN meds as ordered. Pt tolerated well.
[2022-10-17] MEDS: Ampicillin Sodium/Sulbactam Na 3 GM in 0.9 % Sodium Chloride 100 ML IV ×4 (04:25→21:38)
[2022-10-17] MEDS: methylPREDNISolone Sod Succ 40 MG/ML VIAL IVPUSH (04:26)
[2022-10-17] MEDS: Lactated Ringers 1,000 ML 150 ML IVCONT ×3 (06:09→18:06)
[2022-10-17 07:32] LABS: Glucose, Whole Blood 208 mg/dL (60-115)
--- NOTE | 2022-10-17 08:23 | HO.PM.IMPN ---
Subjective Subjective Date of Service: 10/17/22 Interval History: less pain, nausea interested in starting clears Physical Exam Vital Signs: Vital Signs: Last Vital Signs Temp 97.6 F 10/16/22 16:26 Pulse 81 10/16/22 16:26 Resp 18 10/16/22 16:26 BP 116/59 L 10/16/22 16:26 Pulse Ox 97 10/16/22 16:26 O2 Del Method Nasal Cannula 10/16/22 16:26 O2 Flow Rate 3 10/16/22 16:26 BMI result Body Mass Index 38.4 General: AO X 3, no acute distress Resp: CTA bilateral, no accessory muscles used, trach in place CVS: S1,S2,RRR GI: non distended, soft, non tender, RUQ skin graft Neuro: motor grossly intact, alert Psych: appropriate affect, appropriate insight Objective Data Active Medications Acetaminophen (Acetaminophen 325 Mg Tablet) 650 mg PO Q6H PRN PRN Reason: Pain, Mild (Pain Scale 1-3) Albuterol Sulfate (Albuterol Sulfate (0.083%) 2.5 Mg/3 Ml Vial.Neb) 2.5 mg INHALE Q4H PRN PRN Reason: wheezing Albuterol Sulfate (Albuterol Sulfate 90 Mcg 8 Gm Inhaler) 2 puff INHALE QID PRN PRN Reason: Shortness Of Breath Apixaban (Apixaban 5 Mg Tablet) 5 mg PO BID [facility] Last Admin: 10/16/22 21:09 Dose: 5 mg Documented By: MATTY Atorvastatin Calcium (Atorvastatin Calcium 10 Mg Tablet) 10 mg PO DAILY [facility] Clonazepam (Clonazepam 1 Mg Tablet) 1 mg PO BID [facility] Last Admin: 10/16/22 21:09 Dose: 1 mg Documented By: MTATY Dextrose (Dextrose 50 % 25 Gm/50 Ml Syringe) 25 gm IVPUSH Q15M PRN; Protocol PRN Reason: per Hypoglycemia Standing Ord. Diphenhydramine HCl (Diphenhydramine Hcl 25 Mg Capsule) 25 mg PO Q6H PRN PRN Reason: POST NASAL DRIP Last Admin: 10/17/22 01:19 Dose: 25 mg Documented By: MATTY Docusate Sodium (Docusate Sodium 100 Mg Capsule) 100 mg PO DAILY PRN PRN Reason: Constipation Escitalopram Oxalate (Escitalopram Oxalate 20 Mg Tablet) 20 mg PO BEDTIME [facility] Last Admin: 10/16/22 21:09 Dose: 20 mg Documented By: MATTY Famotidine (Famotidine 20 Mg Tablet) 20 mg PO BID [facility] Last Admin: 10/16/22 21:08 Dose: 20 mg Documented By: MATTY Fluticasone Propionate (Fluticasone Propionate Nasal 16 Gm [place]) 1 spray NOSTRIL-B DAILY [facility] Gabapentin (Gabapentin 100 Mg Capsule) 100 mg PO TID [facility] Last Admin: 10/16/22 21:09 Dose: 100 mg Documented By: MATTY Glucose (Glucose Gel 15 Gm Gel..Gram.) 15 gm PO Q15M PRN; Protocol PRN Reason: per Hypoglycemia Standing Ord. Guaifenesin (Guaifenesin 200 Mg/10 Ml 10 Ml Liquid) 10 ml PO Q6H PRN PRN Reason: Cough Last Admin: 10/17/22 01:19 Dose: 10 ml Documented By: MATTY Hydromorphone HCl (Hydromorphone Hcl 0.5 Mg/0.5 Ml Syringe) 0.25 mg IVPUSH Q3H PRN; Protocol PRN Reason: Pain, Severe (Pain Scale 7-10) Last Admin: 10/17/22 06:12 Dose: 0.25 mg Documented By: MATTY Lactated Ringer's (Lr) 1,000 mls @ 150 mls/hr IVCONT .Q6H40M [facility] Last Admin: 10/17/22 06:09 Dose: 150 mls/hr Documented By: MATTY Ampicillin Sodium/Sulbactam (Sodium 3 gm/ Sodium Chloride) 100 mls @ 200 mls/hr IV Q6H [facility] Last Infusion: 10/17/22 06:05 Dose: 0 mls/hr Documented By: MATTY Insulin Glargine (Insulin Glargine,Hum.Rec.Anlog 100 Unit/Ml 10 Ml Vial) 8 unit SUBCUT DAILY [facility] Insulin Human Lispro (Insulin Lispro 100 Unit/Ml 3 Ml Vial) 0 unit SUBCUT QIDACHS [facility]; Protocol Last Admin: 10/16/22 21:08 Dose: 4 unit Documented By: MATTY Lurasidone HCl (Lurasidone Hcl 20 Mg Tablet) 20 mg PO DAILY [facility] Lurasidone HCl (Lurasidone Hcl 40 Mg Tablet) 40 mg PO DAILY [facility] Methylprednisolone Sodium Succinate (Methylprednisolone Sod Succ 40 Mg/Ml Vial) 40 mg IVPUSH Q12H [facility] Last Admin: 10/17/22 04:26 Dose: 40 mg Documented By: MATTY Ondansetron HCl (Ondansetron Hcl 4 Mg/2 Ml Vial) 4 mg IVPUSH Q8H PRN PRN Reason: Nausea and Vomiting Oxcarbazepine (Oxcarbazepine 300 Mg Tablet) 300 mg PO BID [facility] Last Admin: 10/16/22 21:08 Dose: 300 mg Documented By: MATTY Oxycodone HCl (Oxycodone Hcl Immed Release 5 Mg Tablet) 5 mg PO Q6H PRN PRN Reason: Pain, Moderate(Pain Scale 4-6) Pharmacy Consult (Consult Rx Perform Med Rec) 1 each MISCELLANE ONCE PRN PRN Reason: Consult order Promethazine HCl (Promethazine Hcl 25 Mg Tablet) 25 mg PO DAILY PRN PRN Reason: nausea Sodium Chloride (0.9 % Sodium Chloride Flush 3 Ml Syringe) 3 ml IVFLUSH QSHIFT [facility] Last Admin: 10/16/22 23:10 Dose: Not Given Documented By: MATTY Non-Admin Reason: IV Running Tizanidine HCl (Tizanidine Hcl 4 Mg Tablet) 4 mg PO DAILY PRN PRN Reason: muscle spasm Trazodone HCl (Trazodone Hcl 50 Mg Tablet) 150 mg PO BEDTIME [facility] Last Admin: 10/16/22 21:08 Dose: 150 mg Documented By: MATTY Labs 10/16/22 11:43 10/16/22 11:43 Labs: Laboratory Results - last 24 hr 10/16/22 10/16/22 10/16/22 11:43 11:43 11:43 MCV 85.9 MCH 26.9 L MCHC 31.3 RDW 12.9 Plt Count 401 H MPV 9.4 Immature Gran % (Auto) 0.6 H Neut % (Auto) 89.2 H Lymph % (Auto) 6.1 L [place] % (Auto) 2.9 Eos % (Auto) 0.8 Baso % (Auto) 0.4 Lymph # (Auto) 0.6 L [place] # (Auto) 0.3 Eos # (Auto) 0.1 Baso # (Auto) 0.0 Abs Immat Gran (auto) 0.06 H Absolute Neuts (auto) 8.8 H Absolute Nucleated RBC 0.000 Nucleated RBC % (auto) 0.0 PT 13.6 H INR 1.1 Anion Gap 16 Estim Creat Clear Calc 58.0 Estimated GFR 46 POC Glucose Random Glucose 254 H Lactic Acid Calcium 9.5 Magnesium 1.7 Total Bilirubin 0.4 Direct Bilirubin 0.2 AST 10 ALT 13 Alkaline Phosphatase 176 H Total Protein 7.2 Albumin 3.7 Lipase 5 L Urine Color Urine Appearance Urine pH Ur Specific [place] Urine Protein Urine Glucose (UA) Urine Ketones Urine Blood Urine Nitrite Ur Leukocyte Esterase Urine RBC Urine WBC Ur Squamous Epith Cells Urine Bacteria Hyaline Casts COVID-19 (PRETTY) COVID-19 Clin Com 10/16/22 10/16/22 10/16/22 11:43 11:43 18:12 MCV MCH MCHC RDW Plt Count MPV Immature Gran % (Auto) Neut % (Auto) Lymph % (Auto) [place] % (Auto) Eos % (Auto) Baso % (Auto) Lymph # (Auto) [place] # (Auto) Eos # (Auto) Baso # (Auto) Abs Immat Gran (auto) Absolute Neuts (auto) Absolute Nucleated RBC Nucleated RBC % (auto) PT INR Anion Gap Estim Creat Clear Calc Estimated GFR POC Glucose 192 H Random Glucose Lactic Acid 1.3 Calcium Magnesium Total Bilirubin Direct Bilirubin AST ALT Alkaline Phosphatase Total Protein Albumin Lipase Urine Color Urine Appearance Urine pH Ur Specific [place] Urine Protein Urine Glucose (UA) Urine Ketones Urine Blood Urine Nitrite Ur Leukocyte Esterase Urine RBC Urine WBC Ur Squamous Epith Cells Urine Bacteria Hyaline Casts COVID-19 (PRETTY) Negative COVID-19 Clin Com See Note 10/16/22 10/16/22 10/17/22 21:00 22:37 07:28 MCV MCH MCHC RDW Plt Count MPV Immature Gran % (Auto) Neut % (Auto) Lymph % (Auto) [place] % (Auto) Eos % (Auto) Baso % (Auto) Lymph # (Auto) [place] # (Auto) Eos # (Auto) Baso # (Auto) Abs Immat Gran (auto) Absolute Neuts (auto) Absolute Nucleated RBC Nucleated RBC % (auto) PT INR Anion Gap Estim Creat Clear Calc Estimated GFR POC Glucose 246 H 208 H Random Glucose Lactic Acid Calcium Magnesium Total Bilirubin Direct Bilirubin AST ALT Alkaline Phosphatase Total Protein Albumin Lipase Urine Color Yellow Urine Appearance Clear Urine pH 7.0 Ur Specific [place] 1.020 Urine Protein Negative Urine Glucose (UA) Negative Urine Ketones Negative Urine Blood Negative Urine Nitrite Negative Ur Leukocyte Esterase Small (1+) H Urine RBC 0-2 Urine WBC 21-50 H Ur Squamous Epith Cells 3-5 Urine Bacteria None Seen Hyaline Casts 0-2 COVID-19 (PRETTY) COVID-19 Clin Com 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, enterocutaneous fistula, skin grafts, tracheostomy), htn, hld, dm, nephrolithiasis, anxiety, bipolar, takotsubo cardiomyopathy, PE, presented with abd pain, nasuea abd pain, N/V acute pancreatitis in setting of atrophic pancreas improving, advance to clears ivf, pain control, surgery eval acute hypoxic respiratory failure due to aspiratoin pneumonia vs pnuemonitis unasyn, wean o2 as tolerated DM with hyperglycemia insulin hld statin bipolar trileptal, lexapro latuda histoyr of pe eliquis obesity weight loss full code reason for continued hospitalization:awaiting solid tolerance Time Spent With Patient Time: Total time managing care of this patient today ____ minutes. Quality Stroke Does the patient have a stroke diagnosis?: No VTE Prior VTE?: Yes VTE Risk Level:: Medical - moderate - high VTE Device Contraindication: Treatment Not Indicated VTE Drug Contraindication: N/A - Med Ordered
--- NOTE | 2022-10-17 08:37 | P.CONGS_ITS ---
History of Present Illness Consult details Consult date: 10/17/22 Requesting physician: Ace Cuevas Narrative: 51-year-old female patient with multiple medical problems presenting with complaints of upper abdominal pain similar to her previous episodes of pancr eatitis. Her past medical history significant for asthma, bipolar disorder, diabetes, takotsubo cardiomyopathy, and necrotizing pancreatitis with a history of extensive pancreatic surgery performed at [facility] [place] and prolonged hospitalization requiring skin graft placement to the abdominal wall. She reports falling at home on a stool was subsequently developing diffuse abdominal pain, nausea and vomiting. She reports a long history of constipation which precedes the pancreatitis but has never undergone colonoscopy. her last bowel movement was on Tuesday. She presented to the emergency department Yesterday and was found to have diffuse abdominal tenderness without rebound, guarding or rigidity. Admitting laboratories revealed a normal WBC , normal lactate, and normal lipase level. CT abdomen and pelvis revealed mild peripancreatic fat stranding suggestive of mild pancreatitis. Dilated loops of small bowel were also identified with a relative transition point in the pelvis possibly due to adhesions. Fecalization was noted in the small bowel. Review of Systems Review of Systems: Yes all other systems are reviewed and are negative Constitutional: Constitutional: Reports chills, Reports fever(s), Denies headache(s) and Reports poor appetite ENT: Denies dizziness and Denies headache(s) Cardiovascular: Cardiovascular: Denies chest pain, Denies rapid heart rate, Denies palpitations and Denies slow heart rate Respiratory: Respiratory: Denies chest congestion, Denies cough, Denies pain on inspiration and Reports wheezing Comments: Tracheostomy in place Gastrointestinal: Gastrointestinal: Reports abdominal pain, Denies bloating, Denies change in stool character, Reports constipation, Reports diarrhea, Reports nausea, Reports vomiting and Denies hematemesis Musculoskeletal: Musculoskeletal: Reports abnormal gait, Denies back pain, Denies arthralgias, Denies joint swelling and Denies numbness Integumentary/Breasts: Skin/Breast: Denies change in pigmentation, Denies erythema and Denies rash Neurologic: Reports abnormal gait, Denies dizziness, Denies headache(s) and Denies numbness Psychiatric: Psychiatric: Denies anxiety and Denies depression Endocrine: Endocrine: Denies palpitations Hematologic/Lymphatic: Hematologic/Lymphatic: Denies easy bleeding, Denies easy bruising and Denies lymphadenopathy Allergic/Immunologic: Allergic/Immunologic: Reports wheezing PMFSH Past Medical History Medical History Asthma Bipolar 1 disorder Diabetes History of cardiac arrest Kidney stones Substance abuse Takotsubo cardiomyopathy UTI (urinary tract infection) Wound drainage Family History Family History Mother No pertinent family history Father No pertinent family history Surgical History Surgical History H/O exploratory laparotomy S/P cholecystectomy S/P ureteral stent placement Social History Social History Household Members: Spouse Household Members Other:: 1 Housing: Apartment Do you presently have visiting nurse or other home services: 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) Alcohol intake: never Patient Tobacco Use Status: Never used Tobacco Smoked in Last 30 Days: No Second Hand Smoke Exposure: Yes Use of substances other than those prescribed or required for medical reasons: No Advance Directives: Yes Advance Directives on File: Yes Advance Directives Date on File: 01/25/22 Nutrition Risks: No Nutritional Risk Patient : No service: No Current occupational status: disabled Meds Allergies Allergy/AdvReac Type Severity Reaction Status Date / Time pantoprazole Allergy Unknown Verified 10/16/22 10:22 Active Medications: Current Medications Acetaminophen (Acetaminophen 325 Mg Tablet) 650 mg PO Q6H PRN PRN Reason: Pain, Mild (Pain Scale 1-3) Albuterol Sulfate (Albuterol Sulfate (0.083%) 2.5 Mg/3 Ml Vial.Neb) 2.5 mg INHALE Q4H PRN PRN Reason: wheezing Albuterol Sulfate (Albuterol Sulfate 90 Mcg 8 Gm Inhaler) 2 puff INHALE QID PRN PRN Reason: Shortness Of Breath Apixaban (Apixaban 5 Mg Tablet) 5 mg PO BID [facility] Last Admin: 10/16/22 21:09 Dose: 5 mg Atorvastatin Calcium (Atorvastatin Calcium 10 Mg Tablet) 10 mg PO DAILY [facility] Clonazepam (Clonazepam 1 Mg Tablet) 1 mg PO BID [facility] Last Admin: 10/16/22 21:09 Dose: 1 mg Dextrose (Dextrose 50 % 25 Gm/50 Ml Syringe) 25 gm IVPUSH Q15M PRN; Protocol PRN Reason: per Hypoglycemia Standing Ord. Diphenhydramine HCl (Diphenhydramine Hcl 25 Mg Capsule) 25 mg PO Q6H PRN PRN Reason: POST NASAL DRIP Last Admin: 10/17/22 01:19 Dose: 25 mg Docusate Sodium (Docusate Sodium 100 Mg Capsule) 100 mg PO DAILY PRN PRN Reason: Constipation Escitalopram Oxalate (Escitalopram Oxalate 20 Mg Tablet) 20 mg PO BEDTIME [facility] Last Admin: 10/16/22 21:09 Dose: 20 mg Famotidine (Famotidine 20 Mg Tablet) 20 mg PO BID [facility] Last Admin: 10/16/22 21:08 Dose: 20 mg Fluticasone Propionate (Fluticasone Propionate Nasal 16 Gm [place]) 1 spray NOSTRIL-B DAILY [facility] Gabapentin (Gabapentin 100 Mg Capsule) 100 mg PO TID [facility] Last Admin: 10/16/22 21:09 Dose: 100 mg Glucose (Glucose Gel 15 Gm Gel..Gram.) 15 gm PO Q15M PRN; Protocol PRN Reason: per Hypoglycemia Standing Ord. Guaifenesin (Guaifenesin 200 Mg/10 Ml 10 Ml Liquid) 10 ml PO Q6H PRN PRN Reason: Cough Last Admin: 10/17/22 01:19 Dose: 10 ml Hydromorphone HCl (Hydromorphone Hcl 0.5 Mg/0.5 Ml Syringe) 0.25 mg IVPUSH Q3H PRN; Protocol PRN Reason: Pain, Severe (Pain Scale 7-10) Last Admin: 10/17/22 06:12 Dose: 0.25 mg Lactated Ringer's (Lr) 1,000 mls @ 150 mls/hr IVCONT .Q6H40M [facility] Last Admin: 10/17/22 06:09 Dose: 150 mls/hr Ampicillin Sodium/Sulbactam (Sodium 3 gm/ Sodium Chloride) 100 mls @ 200 mls/hr IV Q6H [facility] Last Infusion: 10/17/22 06:05 Dose: Infused Insulin Glargine (Insulin Glargine,Hum.Rec.Anlog 100 Unit/Ml 10 Ml Vial) 8 unit SUBCUT DAILY [facility] Insulin Human Lispro (Insulin Lispro 100 Unit/Ml 3 Ml Vial) 0 unit SUBCUT QIDACHS [facility]; Protocol Last Admin: 10/16/22 21:08 Dose: 4 unit Lurasidone HCl (Lurasidone Hcl 20 Mg Tablet) 20 mg PO DAILY [facility] Lurasidone HCl (Lurasidone Hcl 40 Mg Tablet) 40 mg PO DAILY [facility] Ondansetron HCl (Ondansetron Hcl 4 Mg/2 Ml Vial) 4 mg IVPUSH Q8H PRN PRN Reason: Nausea and Vomiting Oxcarbazepine (Oxcarbazepine 300 Mg Tablet) 300 mg PO BID [facility] Last Admin: 10/16/22 21:08 Dose: 300 mg Oxycodone HCl (Oxycodone Hcl Immed Release 5 Mg Tablet) 5 mg PO Q6H PRN PRN Reason: Pain, Moderate(Pain Scale 4-6) Pharmacy Consult (Consult Rx Perform Med Rec) 1 each MISCELLANE ONCE PRN PRN Reason: Consult order Promethazine HCl (Promethazine Hcl 25 Mg Tablet) 25 mg PO DAILY PRN PRN Reason: nausea Sodium Chloride (0.9 % Sodium Chloride Flush 3 Ml Syringe) 3 ml IVFLUSH QSHIFT [facility] Last Admin: 10/16/22 23:10 Dose: Not Given Tizanidine HCl (Tizanidine Hcl 4 Mg Tablet) 4 mg PO DAILY PRN PRN Reason: muscle spasm Trazodone HCl (Trazodone Hcl 50 Mg Tablet) 150 mg PO BEDTIME [facility] Last Admin: 10/16/22 21:08 Dose: 150 mg Home Medications Medication Instructions Recorded Confirmed Last Taken Type albuterol sulfate 2.5 mg/3 mL 1 vial inhalation Q4H PRN wheezing 10/28/21 10/16/22 04/05/22 History (0.083 %) solution for nebulization atorvastatin 10 mg tablet 1 tab PO DAILY 10/28/21 10/16/22 04/05/22 History clonazepam 1 mg tablet 1 tab PO BID 10/28/21 10/16/22 04/05/22 History escitalopram oxalate 20 mg tablet 1 tab PO BEDTIME 10/28/21 10/16/22 04/05/22 History famotidine 20 mg tablet 1 tab PO BID 10/28/21 10/16/22 04/05/22 History fluticasone propionate 50 1 spray intranasal DAILY 10/28/21 10/16/22 04/05/22 History mcg/actuation nasal spray,suspension glipizide 5 mg tablet 1 tab PO BID 10/28/21 10/16/22 04/05/22 History lurasidone 60 mg tablet (Latuda) 1 tab PO DAILY 10/28/21 10/16/22 04/05/22 Histo ry oxcarbazepine 300 mg tablet 1 tab PO BID 10/28/21 10/16/22 04/05/22 History promethazine 25 mg tablet 1 tab PO DAILY PRN nausea 10/28/21 10/16/22 04/05/22 History albuterol sulfate 90 mcg/actuation 2 puff inhalation QID PRN 01/24/22 10/16/22 04/05/22 History aerosol inhaler (Ventolin HFA) Shortness Of Breath diphenhydramine HCl 25 mg capsule 25 mg PO Q6H PRN POST NASAL DRIP 01/24/22 10/16/22 04/05/22 History (Benadryl) tizanidine 4 mg tablet 1 tab PO DAILY PRN muscle spasm 01/24/22 10/16/22 04/05/22 History gabapentin 100 mg capsule 100 mg PO TID 10/16/22 10/16/22 Unknown History metformin 500 mg tablet,extended 1,000 mg PO BID 10/16/22 10/16/22 Unknown History release 24 hr trazodone 150 mg tablet 150 mg PO BEDTIME 10/16/22 10/16/22 Unknown History Physical Exam Vital Signs: Vital Signs: Last Vital Signs Temp 97.6 F 10/16/22 16:26 Pulse 81 10/16/22 16:26 Resp 18 10/16/22 16:26 BP 116/59 L 10/16/22 16:26 Pulse Ox 97 10/16/22 16:26 O2 Del Method Nasal Cannula 10/16/22 16:26 O2 Flow Rate 3 10/16/22 16:26 BMI result Body Mass Index 38.4 Const: General: cooperative, comfortable and well developed Nutritional Appearance: well nourished Orientation/consciousness: patient oriented x3 Eyes: Sclerae: sclerae normal EOM: EOMs intact bilaterally Neck: Other: Tracheostomy in place, with trach mask Neck: Yes normal visual inspection Resp: Effort & Inspection: normal respiratory effort, no cough, no respiratory distress and no stridor Cardio: Jugular venous distension: no JVD GI: Inspection: Yes obesity Palpation (GI): Soft to palpation, Tenderness to palpation present (GI) in the epigastrum, no guarding and not rigid Percus rosalie: Yes dullness to percussion Abdomen image: 1. Wide incisional hernia with overlying skin graft Skin: General skin exam: dry skin Rashes: no rashes Neuro: General: patient oriented x3 and no focal motor deficits Extrem: General: Yes full ROM and Yes no clubbing, cyanosis or edema Psych: Appearance: grossly normal Results Labs 10/16/22 11:43 10/16/22 11:43 Labs: Abnormal lab results 10/16/22 10/16/22 10/16/22 Range/Units 11:43 11:43 11:43 MCH 26.9 L (27.0-33.0) pg Plt Count 401 H (160-400) X10*3/uL Immature Gran % (Auto) 0.6 H (0.0-0.4) % Neut % (Auto) 89.2 H (45-73) % Lymph % (Auto) 6.1 L (20-40) % Lymph # (Auto) 0.6 L (1.2-4.9) X10*3/uL Abs Immat Gran (auto) 0.06 H (0.00-0.03) X10*3/uL Absolute Neuts (auto) 8.8 H (2.0-8.3) x10*3/uL PT 13.6 H (11.1-13.3) SEC Carbon Dioxide 31 H (22-29) mmol/L POC Glucose (60-115) mg/dL Random Glucose 254 H (60-115) mg/dL Alkaline Phosphatase 176 H (39-117) U/L Lipase 5 L (8-78) U/L Ur Leukocyte Esterase (Negative) Urine WBC (0-5) /HPF 10/16/22 10/16/22 10/16/22 Range/Units 18:12 21:00 22:37 MCH (27.0-33.0) pg Plt Count (160-400) X10*3/uL Immature Gran % (Auto) (0.0-0.4) % Neut % (Auto) (45-73) % Lymph % (Auto) (20-40) % Lymph # (Auto) (1.2-4.9) X10*3/uL Abs Immat Gran (auto) (0.00-0.03) X10*3/uL Absolute Neuts (auto) (2.0-8.3) x10*3/uL PT (11.1-13.3) SEC Carbon Dioxide (22-29) mmol/L POC Glucose 192 H 246 H (60-115) mg/dL Random Glucose (60-115) mg/dL Alkaline Phosphatase (39-117) U/L Lipase (8-78) U/L Ur Leukocyte Esterase Small (1+) H (Negative) Urine WBC 21-50 H (0-5) /HPF 10/17/22 Range/Units 07:28 MCH (27.0-33.0) pg Plt Count (160-400) X10*3/uL Immature Gran % (Auto) (0.0-0.4) % Neut % (Auto) (45-73) % Lymph % (Auto) (20-40) % Lymph # (Auto) (1.2-4.9) X10*3/uL Abs Immat Gran (auto) (0.00-0.03) X10*3/uL Absolute Neuts (auto) (2.0-8.3) x10*3/uL PT (11.1-13.3) SEC Carbon Dioxide (22-29) mmol/L POC Glucose 208 H (60-115) mg/dL Random Glucose (60-115) mg/dL Alkaline Phosphatase (39-117) U/L Lipase (8-78) U/L Ur Leukocyte Esterase (Negative) Urine WBC (0-5) /HPF Short CBC 10/16/22 Range/Units 11:43 WBC 9.9 (4.8-10.8) X10*3/uL Hgb 12.6 (12.0-16.0) g/dl Hct 40.2 (37.0-47.0) % Plt Count 401 H (160-400) X10*3/uL BMP 10/16/22 11:43 Sodium 138 Potassium 5.0 Chloride 96 Carbon Dioxide 31 H BUN 11 Creatinine 1.22 Calcium 9.5 Liver Function 10/16/22 Range/Units 11:43 Total Bilirubin 0.4 (0.0-1.0) mg/dL Direct Bilirubin 0.2 (0.0-0.5) mg/dL AST 10 (5-31) U/L ALT 13 (0-31) U/L Alkaline Phosphatase 176 H (39-117) U/L Albumin 3.7 (3.5-5.0) g/dL Urine 10/16/22 Range/Units 22:37 Urine Color Yellow Urine Appearance Clear Urine pH 7.0 (5.0-9.0) Ur Specific [place] 1.020 (1.005-1.025) Urine Protein Negative (Neg-Trace) mg/dL Urine Glucose (UA) Negative (Negative) mg/dL All other labs normal. Assessment and Plan (1) Pancreatitis: Status: Acute (2) Intractable abdominal pain: Status: Acute Plan 51-year-old female patient presenting with complaints of abdominal pain with a prior history of necrotizing pancreatitis. Patient has had extensive abdominal surgeries and almost certainly has significant amount of adhesions as a result. There appears to be some chronically dilated small bowel loops with fec alization identified. Stomach is minimally dilated with no definite evidence of bowel obstruction. Surgical exploration should be avoided given the hostile nature of her abdominal cavity. Will continue to follow the patient during her hospitalization. Time Spent With Patient Time: Total time managing care of this patient today ____ minutes. Procedures Date of Service Date of Service: 10/17/22
[2022-10-17 09:34] LABS: Adenovirus PCR Not Detected (Not Detect.); Bordetella parapertussis PCR Not Detected (Not Detect.); Bordetella pertussis PCR Not Detected (Not Detect.); Chlamydia pneumoniae PCR Not Detected (Not Detect.); Coronavirus 229E PCR Not Detected (Not Detect.); Coronavirus HKU1 PCR Not Detected (Not Detect.); Coronavirus NL63 PCR Not Detected (Not Detect.); Coronavirus OC43 PCR Not Detected (Not Detect.); Human metapneumovirus PCR Not Detected (Not Detect.); Influenza A PCR Not Detected (Not Detect.); Influenza B PCR Not Detected (Not Detect.); Mycoplasma pneumoniae PCR Not Detected (Not Detect.); Parainfluenza 1 PCR Not Detected (Not Detect.); Parainfluenza 2 PCR Not Detected (Not Detect.); Parainfluenza 3 PCR Not Detected (Not Detect.); Parainfluenza 4 PCR Not Detected (Not Detect.); RSV PCR Not Detected (Not Detect.); Rhino/Enterovirus PCR Not Detected (Not Detect.); SARS-CoV-2 PCR Not Detected (Not Detect.)
[2022-10-17] MEDS: OXcarbazepine 300 MG TABLET PO ×2 (10:09→20:48)
[2022-10-17] MEDS: Gabapentin 100 MG CAPSULE PO ×3 (10:09→20:48)
[2022-10-17] MEDS: clonazePAM 1 MG TABLET PO ×2 (10:09→20:48)
[2022-10-17] MEDS: Apixaban 5 MG TABLET PO ×2 (10:09→20:48)
[2022-10-17] MEDS: Famotidine 20 MG TABLET PO ×2 (10:09→20:48)
[2022-10-17] MEDS: Atorvastatin Calcium 10 MG TABLET PO (10:10)
[2022-10-17] MEDS: Insulin Glargine,Hum.rec.anlog 100 UNIT/ML 10 ML VIAL 8 UNIT SUBCUT (10:10)
--- NOTE | 2022-10-17 10:16 | PC.NURSE ---
axox3. aware of plan of care. awaits room. medicated for LUQ pain. is aware that clear liquids are approved. able to sit up and drink w/o assist. skin pwd. unlabroed resp. no grimace.
--- NOTE | 2022-10-17 10:24 | MHC.CM.PN ---
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
[2022-10-17] MEDS: Fluticasone Propionate Nasal 16 GM SPRAY 1 SPRAY NOSTRIL-B (11:20)
[2022-10-17] MEDS: Lurasidone HCl 20 MG TABLET PO (11:20)
--- NOTE | 2022-10-17 11:25 | PC.NURSE ---
rn to rn with dangelo on med surg
[2022-10-17] MEDS: oxyCODONE HCl Immed Release 5 MG TABLET PO ×2 (12:24→18:06)
[2022-10-17 12:43] LABS: Glucose, Whole Blood 304 mg/dL (60-115)
[2022-10-17] MEDS: Lurasidone HCl 40 MG TABLET PO (12:55)
[2022-10-17] MEDS: Insulin Lispro 100 UNIT/ML 3 ML VIAL SUBCUT ×3 (12:56→20:51)
[2022-10-17] MEDS: HYDROmorphone HCl 0.5 MG/0.5 ML SYRINGE IVPUSH ×3 (16:26→20:48)
[2022-10-17 16:34] LABS: Glucose, Whole Blood 213 mg/dL (60-115)
[2022-10-17 19:49] LABS: Glucose, Whole Blood 214 mg/dL (60-115)
[2022-10-17] MEDS: traZODone HCL 50 MG TABLET 150 MG PO (20:47)
[2022-10-17] MEDS: Escitalopram Oxalate 20 MG TABLET PO (20:48)
[2022-10-17] MEDS: 0.9 % Sodium Chloride Flush 3 ML SYRINGE IVFLUSH (20:49)
[2022-10-18] VITALS (7 sets, daily range): BP systolic 133–150; BP diastolic 63–80; PULSE 70–83; RESP 14–16; TEMP 36.1–36.9; O2SAT 91–93
[2022-10-18] MEDS: Lactated Ringers 1,000 ML 150 ML IVCONT (00:39)
[2022-10-18] MEDS: HYDROmorphone HCl 0.5 MG/0.5 ML SYRINGE IVPUSH ×9 (03:37→23:06)
[2022-10-18] MEDS: Ampicillin Sodium/Sulbactam Na 3 GM in 0.9 % Sodium Chloride 100 ML IV ×4 (03:39→20:39)
[2022-10-18 05:56] LABS: Hematocrit 35.2 % (37.0-47.0); Hemoglobin 10.9 g/dl (12.0-16.0); Mean Corpuscular Hemoglobin 27.1 pg (27.0-33.0); Mean Corpuscular Volume 87.6 fL (80.0-98.0); Mean Platelet Volume 10.6 fL (9.4-12.3); Platelet Count 288 X10*3/uL (160-400); Red Blood Count 4.02 X10*6/uL (4.20-5.50); Red Cell Distribution Width 12.9 % (11.0-16.0); White Blood Count 6.1 X10*3/uL (4.8-10.8)
[2022-10-18 06:15] LABS: Anion Gap 17 (12-20); Blood Urea Nitrogen 10 mg/dL (9-16); Calcium 8.8 mg/dL (8.4-10.2); Carbon Dioxide 26 mmol/L (22-29); Chloride 100 mmol/L (96-108); Creatinine Clr Calc Pharmacy 76.1; Estimated Glomerular Filt Rate > 60; Glucose Fasting 128 mg/dL (60-99); Potassium 3.9 mmol/L (3.3-5.1); Sodium 139 mmol/L (135-145)
[2022-10-18 07:22] LABS: Glucose, Whole Blood 139 mg/dL (60-115)
[2022-10-18] MEDS: Atorvastatin Calcium 10 MG TABLET PO (07:45)
[2022-10-18] MEDS: Famotidine 20 MG TABLET PO ×2 (07:45→20:39)
[2022-10-18] MEDS: Gabapentin 100 MG CAPSULE PO ×3 (07:46→20:39)
[2022-10-18] MEDS: Lurasidone HCl 20 MG TABLET PO (07:46)
[2022-10-18] MEDS: OXcarbazepine 300 MG TABLET PO ×2 (07:46→20:39)
[2022-10-18] MEDS: Insulin Glargine,Hum.rec.anlog 100 UNIT/ML 10 ML VIAL 8 UNIT SUBCUT (07:46)
[2022-10-18] MEDS: Apixaban 5 MG TABLET PO ×2 (07:46→20:39)
[2022-10-18] MEDS: Lurasidone HCl 40 MG TABLET PO (07:46)
[2022-10-18] MEDS: clonazePAM 1 MG TABLET PO ×2 (07:46→20:39)
--- NOTE | 2022-10-18 08:44 | HO.PM.IMPN ---
Subjective Subjective Date of Service: 10/18/22 Interval History: wants solids Physical Exam Vital Signs: Vital Signs: Last Vital Signs Temp 97.4 F 10/18/22 07:28 Pulse 70 10/18/22 07:28 Resp 16 10/18/22 07:28 BP 135/71 10/18/22 07:28 Pulse Ox 91 L 10/18/22 07:28 O2 Del Method Room Air 10/18/22 07:28 O2 Flow Rate 4 10/17/22 10:15 BMI result Body Mass Index 38.4 Const: General: cooperative, comfortable and well developed Nutritional Appearance: well nourished Orientation/consciousness: patient oriented x3 Eyes: Sclerae: sclerae normal EOM: EOMs intact bilaterally Neck: Other: Tracheostomy in place, with trach mask Neck: Yes normal visual inspection Resp: Effort & Inspection: normal respiratory effort, no cough, no respiratory distress and no stridor Cardio: Jugular venous distension: no JVD GI: Inspection: Yes obesity Palpation (GI): Soft to palpation, Tenderness to palpation present (GI) in the epigastrum, no guarding and not rigid Percussion: Yes dullness to percussion Skin: General skin exam: dry skin Rashes: no rashes Neuro: General: patient oriented x3 and no focal motor deficits Extrem: General: Yes full ROM and Yes no clubbing, cyanosis or edema Psych: Appearance: grossly normal Objective Data Active Medications Acetaminophen (Acetaminophen 325 Mg Tablet) 650 mg PO Q6H PRN PRN Reason: Pain, Mild (Pain Scale 1-3) Albuterol Sulfate (Albuterol Sulfate (0.083%) 2.5 Mg/3 Ml Vial.Neb) 2.5 mg INHALE Q4H PRN PRN Reason: wheezing Albuterol Sulfate (Albuterol Sulfate 90 Mcg 8 Gm Inhaler) 2 puff INHALE QID PRN PRN Reason: Shortness Of Breath Apixaban (Apixaban 5 Mg Tablet) 5 mg PO BID [facility] Last Admin: 10/18/22 07:46 Dose: 5 mg Documented By: KENNEDY Atorvastatin Calcium (Atorvastatin Calcium 10 Mg Tablet) 10 mg PO DAILY [facility] Last Admin: 10/18/22 07:45 Dose: 10 mg Documented By: KENNEDY Clonazepam (Clonazepam 1 Mg Tablet) 1 mg PO BID [facility] Last Admin: 10/18/22 07:46 Dose: 1 mg Documented By: KENNEDY Dextrose (Dextrose 50 % 25 Gm/50 Ml Syringe) 25 gm IVPUSH Q15M PRN; Protocol PRN Reason: per Hypoglycemia Standing Ord. Diphenhydramine HCl (Diphenhydramine Hcl 25 Mg Capsule) 25 mg PO Q6H PRN PRN Reason: POST NASAL DRIP Last Admin: 10/17/22 01:19 Dose: 25 mg Documented By: MATTY Docusate Sodium (Docusate Sodium 100 Mg Capsule) 100 mg PO DAILY PRN PRN Reason: Constipation Escitalopram Oxalate (Escitalopram Oxalate 20 Mg Tablet) 20 mg PO BEDTIME [facility] Last Admin: 10/17/22 20:48 Dose: 20 mg Documented By: TAMANNA Famotidine (Famotidine 20 Mg Tablet) 20 mg PO BID [facility] Last Admin: 10/18/22 07:45 Dose: 20 mg Documented By: KENNEDY Fluticasone Propionate (Fluticasone Propionate Nasal 16 Gm [place]) 1 spray NOSTRIL-B DAILY [facility] Last Admin: 10/17/22 11:20 Dose: 1 spray Documented By: DINAH Gabapentin (Gabapentin 100 Mg Capsule) 100 mg PO TID [facility] Last Admin: 10/18/22 07:46 Dose: 100 mg Documented By: KENNEDY Glucose (Glucose Gel 15 Gm Gel..Gram.) 15 gm PO Q15M PRN; Protocol PRN Reason: per Hypoglycemia Standing Ord. Guaifenesin (Guaifenesin 200 Mg/10 Ml 10 Ml Liquid) 10 ml PO Q6H PRN PRN Reason: Cough Last Admin: 10/17/22 20:49 Dose: 10 ml Documented By: TAMANNA Hydromorphone HCl (Hydromorphone Hcl 0.5 Mg/0.5 Ml Syringe) 0.5 mg IVPUSH Q2H PRN; Protocol PRN Reason: Pain, Severe (Pain Scale 7-10) Last Admin: 10/18/22 07:45 Dose: 0.5 mg Documented By: KENNEDY Ampicillin Sodium/Sulbactam (Sodium 3 gm/ Sodium Chloride) 100 mls @ 200 mls/hr IV Q6H [facility] Last Infusion: 10/18/22 04:53 Dose: 0 mls/hr Documented By: TAMANNA Insulin Glargine (Insulin Glargine,Hum.Rec.Anlog 100 Unit/Ml 10 Ml Vial) 8 unit SUBCUT DAILY [facility] Last Admin: 10/18/22 07:46 Dose: 8 unit Documented By: KENNEDY Insulin Human Lispro (Insulin Lispro 100 Unit/Ml 3 Ml Vial) 0 unit SUBCUT QIDACHS [facility]; Protocol Last Admin: 10/18/22 07:37 Dose: Not Given Documented By: KENNEDY Non-Admin Reason: No Insulin Coverage Lurasidone HCl (Lurasidone Hcl 20 Mg Tablet) 20 mg PO DAILY [facility] Last Admin: 10/18/22 07:46 Dose: 20 mg Documented By: KENNEDY Lurasidone HCl (Lurasidone Hcl 40 Mg Tablet) 40 mg PO DAILY [facility] Last Admin: 10/18/22 07:46 Dose: 40 mg Documented By: KENNEDY Ondansetron HCl (Ondansetron Hcl 4 Mg/2 Ml Vial) 4 mg IVPUSH Q8H PRN PRN Reason: Nausea and Vomiting Oxcarbazepine (Oxcarbazepine 300 Mg Tablet) 300 mg PO BID [facility] Last Admin: 10/18/22 07:46 Dose: 300 mg Documented By: KENNEDY Oxycodone HCl (Oxycodone Hcl Immed Release 5 Mg Tablet) 5 mg PO Q6H PRN PRN Reason: Pain, Moderate(Pain Scale 4-6) Last Admin: 10/17/22 18:06 Dose: 5 mg Documented By: BUDDY Pharmacy Consult (Consult Rx Perform Med Rec) 1 each MISCELLANE ONCE PRN PRN Reason: Consult order Promethazine HCl (Promethazine Hcl 25 Mg Tablet) 25 mg PO DAILY PRN PRN Reason: nausea Sodium Chloride (0.9 % Sodium Chloride Flush 3 Ml Syringe) 3 ml IVFLUSH QSHIFT [facility] Last Admin: 10/18/22 07:37 Dose: Not Given Documented By: KENNEDY Non-Admin Reason: IV Running Tizanidine HCl (Tizanidine Hcl 4 Mg Tablet) 4 mg PO DAILY PRN PRN Reason: muscle spasm Trazodone HCl (Trazodone Hcl 50 Mg Tablet) 150 mg PO BEDTIME [facility] Last Admin: 10/17/22 20:47 Dose: 150 mg Documented By: TAMANNA Labs 10/18/22 05:26 10/18/22 05:26 Labs: Laboratory Results - last 24 hr 10/16/22 10/17/22 10/17/22 15:53 12:38 16:25 MCV MCH MCHC RDW Plt Count MPV Absolute Nucleated RBC Nucleated RBC % (auto) Anion Gap Estim Creat Clear Calc Estimated GFR POC Glucose 304 H 213 H Fasting Glucose Calcium Respiratory Panel [place] See Note Adenovirus (Rapid PCR) Not Detected B.pert (TEM-PCR) Not Detected B.parapertussis DNA PCR Not Detected C. pneumoniae DNA (PCR) Not Detected Coronavirus OC43 (PCR) Not Detected Coronavirus HKU1 (PCR) Not Detected Coronavirus 229E (PCR) Not Detected Coronavirus NL63 (PCR) Not Detected Human Metapneumovir PCR Not Detected Influenza A (RT-PCR) Not Detected Influenza B (RT-PCR) Not Detected M. pneumoniae (PCR) Not Detected Parainfluenza 1 (PCR) Not Detected Parainfluenza 2 (PCR) Not Detected Parainfluenza 3 (PCR) Not Detected Parainfluenza 4 (PCR) Not Detected RSV (PCR) Not Detected Entero/Rhino (PCR) Not Detected SARS-CoV-2 RNA (RT-PCR) Not Detected 10/17/22 10/18/22 10/18/22 19:25 05:26 05:26 MCV 87.6 MCH 27.1 MCHC 31.0 RDW 12.9 Plt Count 288 D MPV 10.6 Absolute Nucleated RBC 0.000 Nucleated RBC % (auto) 0.0 Anion Gap 17 Estim Creat Clear Calc 76.1 Estimated GFR > 60 POC Glucose 214 H Fasting Glucose 128 H Calcium 8.8 D Respiratory Panel [place] Adenovirus (Rapid PCR) B.pert (TEM-PCR) B.parapertussis DNA PCR C. pneumoniae DNA (PCR) Coronavirus OC43 (PCR) Coronavirus HKU1 (PCR) Coronavirus 229E (PCR) Coronavirus NL63 (PCR) Human Metapneumovir PCR Influenza A (RT-PCR) Influenza B (RT-PCR) M. pneumoniae (PCR) Parainfluenza 1 (PCR) Parainfluenza 2 (PCR) Parainfluenza 3 (PCR) Parainfluenza 4 (PCR) RSV (PCR) Entero/Rhino (PCR) SARS-CoV-2 RNA (RT-PCR) 10/18/22 07:15 MCV MCH MCHC RDW Plt Count MPV Absolute Nucleated RBC Nucleated RBC % (auto) Anion Gap Estim Creat Clear Calc Estimated GFR POC Glucose 139 H Fasting Glucose Calcium Respiratory Panel [place] Adenovirus (Rapid PCR) B.pert (TEM-PCR) B.parapertussis DNA PCR C. pneumoniae DNA (PCR) Coronavirus OC43 (PCR) Coronavirus HKU1 (PCR) Coronavirus 229E (PCR) Coronavirus NL63 (PCR) Human Metapneumovir PCR Influenza A (RT-PCR) Influenza B (RT-PCR) M. pneumoniae (PCR) Parainfluenza 1 (PCR) Parainfluenza 2 (PCR) Parainfluenza 3 (PCR) Parainfluenza 4 (PCR) RSV (PCR) Entero/Rhino (PCR) SARS-CoV-2 RNA (RT-PCR) Microbiology Microbiology Results: Microbiology 10/16/22 11:43 Blood Culture - Preliminary Blood - Venous No growth after 24 hours. 10/16/22 11:43 Blood Culture - Preliminary Blood - Venous No growth after 24 hours. 10/16/22 Unknown Urine Culture - Preliminary Urine clean catch - Urine guerra top No growth to date. 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, enterocutaneous fistula, skin grafts, tracheostomy), htn, hld, dm, nephrolithiasis, anxiety, bipolar, takotsubo cardiomyopathy, PE, presented with abd pain, [place] abd pain, N/V acute pancreatitis in setting of atrophic pancreas improving, advance to solids pain control, surgery appreciated acute hypoxic respiratory failure due to aspiration pneumonia vs pnuemonitis unasyn, wean o2 as tolerated, negative viral panel DM with hyperglycemia insulin hld statin bipolar trileptal, lexapro latuda histoyr of pe eliquis obesity weight loss full code reason for continued hospitalization:awaiting solid tolerance Time Spent With Patient Time: Total time managing care of this patient today ____ minutes. Quality Stroke Does the patient have a stroke diagnosis?: No VTE Prior VTE?: Yes VTE Risk Level:: Medical - moderate - high VTE Device Contraindication: Treatment Not Indicated VTE Drug Contraindication: N/A - Med Ordered
[2022-10-18] MEDS: Fluticasone Propionate Nasal 16 GM SPRAY 1 SPRAY NOSTRIL-B (11:03)
[2022-10-18] MEDS: Insulin Lispro 100 UNIT/ML 3 ML VIAL SUBCUT ×3 (11:03→20:59)
[2022-10-18 11:09] LABS: Glucose, Whole Blood 237 mg/dL (60-115)
--- NOTE | 2022-10-18 15:47 | MHC.CM.PN ---
PT NOT YET CLEARED TO DC, ADVANCING DIET DCP: HOME RESUME SERVICES VIA FAMILY TRANSPORT
[2022-10-18 17:04] LABS: Glucose, Whole Blood 315 mg/dL (60-115)
[2022-10-18] MEDS: 0.9 % Sodium Chloride Flush 3 ML SYRINGE IVFLUSH (18:27)
[2022-10-18] MEDS: traZODone HCL 50 MG TABLET 150 MG PO (20:38)
[2022-10-18] MEDS: Escitalopram Oxalate 20 MG TABLET PO (20:39)
[2022-10-18 21:34] LABS: Glucose, Whole Blood 334 mg/dL (60-115)
[2022-10-19] MEDS: HYDROmorphone HCl 0.5 MG/0.5 ML SYRINGE IVPUSH ×4 (01:12→08:48)
[2022-10-19] MEDS: Ampicillin Sodium/Sulbactam Na 3 GM in 0.9 % Sodium Chloride 100 ML IV (03:24)
[2022-10-19 04:00] VITALS: BP 133/67; PULSE 66; RESP 16; TEMP 36.4; O2SAT 93
[2022-10-19 07:43] VITALS: BP 140/82; PULSE 74; RESP 16; TEMP 36.6; O2SAT 93
[2022-10-19 07:44] LABS: Glucose, Whole Blood 200 mg/dL (60-115)
[2022-10-19] MEDS: Insulin Glargine,Hum.rec.anlog 100 UNIT/ML 10 ML VIAL 8 UNIT SUBCUT (07:58)
[2022-10-19] MEDS: Apixaban 5 MG TABLET PO (07:59)
[2022-10-19] MEDS: oxyCODONE HCl Immed Release 5 MG TABLET PO (07:59)
[2022-10-19] MEDS: Insulin Lispro 100 UNIT/ML 3 ML VIAL SUBCUT (07:59)
[2022-10-19] MEDS: Lurasidone HCl 20 MG TABLET PO (07:59)
[2022-10-19] MEDS: Gabapentin 100 MG CAPSULE PO (08:00)
[2022-10-19] MEDS: Lurasidone HCl 40 MG TABLET PO (08:00)
[2022-10-19] MEDS: OXcarbazepine 300 MG TABLET PO (08:00)
[2022-10-19] MEDS: clonazePAM 1 MG TABLET PO (08:00)
[2022-10-19] MEDS: Atorvastatin Calcium 10 MG TABLET PO (08:00)
[2022-10-19] MEDS: Famotidine 20 MG TABLET PO (08:00)
--- NOTE | 2022-10-19 09:03 | PM.DS ---
DS: Providers Provider Date of Service: 10/19/22 Date of admission: 10/16/22 15:09 Primary care physician: Megan Cummings MD Consults: 10/16/22 15:32 Consult to General Surgery Routine Consulting Provider: [facility] General Surgeons Reason for consultation: severe abd pain DS: Diagnosis Discharge Diagnosis (1) Intractable abdominal pain: Status: Acute DS: Summary Hospital Course Hospital Course: from initial hpi: 51-year-old female with a past medical history of hypertension, hyperlipidemia, diabetes, asthma, history of acute respiratory failure secondary to asthma exacerbation requiring intubation, complicated by cardiac arrest x2, subsequently had tracheostomy, has trach collar; history of necrotizing pancreatitis status post surgery; kidney stones-recently had stent removed by Dr. Agosto; history of ESBL UTI; anxiety, depression, bipolar disorder, takotsubo cardiomyopathy, and history of PE anticoagulated with Eliquis?presented to the hospital for evaluation of severe abdominal pain with recurrent vomiting.? The patient states that she lost her balance about 3 days ago and hit the right side of her ribs on a stool.? Since then has had diffuse abdominal pain without any radiation.? Pain is worst in the lower area of the abdomen.? There is nausea and vomiting.? She has been moving her bowels and had a single episode of diarrhea yesterday.? She rates the pain as a 10/10 constant pain and has not been eating or drinking much.? Secondary to the pain.? She also tells me she has had an occasionally productive cough ongoing for several weeks that worsened several days ago with associated shortness of breath. On arrival, patient tachypneic to 22 did develop tachycardic to 103 and hypoxia to 87% placed on 3 L supplemental O2.? No hypoxia and she is afebrile.? There is no leukocytosis.? Renal function is baseline, electrolyte levels are normal.? Glucose 254.? Hepatic function normal.? Lactic acid 1.3.? Lipase 5 troponin below detectable limits.? Negative for COVID-19.? Chest CT shows dense consolidation/atelectasis at the right lower lobe with pneumonia.? There is also patchy ground-glass opacities in the upper lobes possibly mild interstitial pneumonitis.? Patient denies any aspiration.? CT abdomen/pelvis shows a small amount of free fluid in the abdomen and pelvis as well as mildly dilated small bowel loops throughout the abdomen with fecalization of the contents suggesting fluid stagnation consistent with partial small bowel obstruction relative transition zone in the right lower quadrant could be sequela of adhesion versus focal inflammation, surgical evaluation warranted.? There is also small atrophic pancreas with mild peripancreatic fat stranding around the pancreas suggesting possible mild pancreatitis. In the ED given 1 L IV NS, ondansetron, 1g ceftriaxone and 500mg iv azithromycin. hospital course: Patient was admitted for abdominal pain and nausea vomiting, possibly due to acute pancreatitis in the setting of atrophic pancreas. She was treated with IV fluids and pain medicine. Her pain improved and she was advanced to solid diet and tolerated with having bowel movements and no further vomiting. Patient also presented with acute hypoxic respiratory failure due to aspiration pneumonia versus pneumonitis. She was treated with IV Zosyn and weaned off oxygen. On discharge she will be given 5 more days of Augmentin. For diabetes with hyperglycemia was treated with insulin. For hyperlipidemia is continue on statin. For bipolar disorder was continued on Trileptal, Lexapro, Latuda. For history of PE was continued on Eliquis. For obesity weight loss recommended. Patient is feeling better will be discharged home. Time Spent with Patient Time attestation: Total time managing care of this patient today ____ minutes. Discharge coordination time: Greater than 30 minutes Quality: Safe Use of Opioids Does Pt have an Active Cancer Diagnosis on the Problem List?: No Quality: Stroke Does the patient have a stroke diagnosis?: No Physical Exam Vital Signs: Vital Signs: Last Vital Signs Temp 97.9 F 10/19/22 07:43 Pulse 74 10/19/22 07:43 Resp 16 10/19/22 07:43 BP 140/82 H 10/19/22 07:43 Pulse Ox 93 10/19/22 07:43 O2 Del Method Room Air 10/19/22 07:43 O2 Flow Rate 4 10/17/22 10:15 BMI result Body Mass Index 38.4 Const: General: cooperative, comfortable and well developed Nutritional Appearance: well nourished Orientation/consciousness: patient oriented x3 Eyes: Sclerae: sclerae normal EOM: EOMs intact bilaterally Neck: Other: Tracheostomy in place, with trach mask Neck: Yes normal visual inspection Resp: Effort & Inspection: normal respiratory effort, no cough, no respiratory distress and no stridor Cardio: Jugular venous distension: no JVD GI: Inspection: Yes obesity Palpation (GI): Soft to palpation, Tenderness to palpation present (GI) in the epigastrum, no guarding and not rigid Percussion: Yes dullness to percussion Skin: General skin exam: dry skin Rashes: no rashes Neuro: General: patient oriented x3 and no focal motor deficits Extrem: General: Yes full ROM and Yes no clubbing, cyanosis or edema Psych: Appearance: grossly normal DS: Data Data Completed and Pending Completed studies during hospitalization [Text1]: Procedures Dilation of Left Ureter with Intraluminal Device, Via Natural or Artificial Opening Endoscopic (06/11/21) Fluoroscopy of Left Kidney, Ureter and Bladder (06/11/21) Labs on day of discharge: Laboratory Results - last 24 hr 10/18/22 10/18/22 10/18/22 10:59 17:00 20:52 POC Glucose 237 H 315 H 334 H 10/19/22 07:40 POC Glucose 200 H Preliminary micro results at discharge 10/16/22 11:43 Blood Culture - Preliminary Blood - Venous No growth after 48 hours. 10/16/22 11:43 Blood Culture - Preliminary Blood - Venous No growth after 48 hours. Discharge Plan Discharge Anticipated Discharge Date/Time: 10/19/22 08:58 Patient Disposition: Home, Self-Care Discharge Diagnosis: pneumonia, pancreatitis Referrals: Megan Mosqueda MD [Primary Care Provider] - 1 Week Discharge Medications: New oxycodone 5 mg Tablet 5 mg PO Q6H PRN (Reason: Pain, Moderate(Pain Scale 4-6)) Qty: 10 0RF Rx Instructions: Partial Fill upon patient request. amoxicillin-pot clavulanate 875-125 mg tablet 1 tab PO BID Qty: 10 0RF Continued tizanidine 4 mg tablet 1 tab PO DAILY PRN (Reason: muscle spasm) albuterol sulfate [Ventolin HFA] 90 mcg/actuation HFA aerosol inhaler 2 puff inhalation QID PRN (Reason: Shortness Of Breath) diphenhydramine HCl [Benadryl] 25 mg Capsule 25 mg PO Q6H PRN (Reason: POST NASAL DRIP) albuterol sulfate 2.5 mg /3 mL (0.083 %) solution for nebulization 1 vial inhalation Q4H PRN (Reason: wheezing) atorvastatin 10 mg tablet 1 tab PO DAILY clonazepam 1 mg tablet 1 tab PO BID oxcarbazepine 300 mg tablet 1 tab PO BID famotidine 20 mg tablet 1 tab PO BID promethazine 25 mg tablet 1 tab PO DAILY PRN (Reason: nausea) fluticasone propionate 50 mcg/actuation spray,suspension 1 spray intranasal DAILY glipizide 5 mg tablet 1 tab PO BID escitalopram oxalate 20 mg tablet 1 tab PO BEDTIME lurasidone [Latuda] 60 mg tablet 1 tab PO DAILY Eliquis 5 mg tablet 5 mg PO BID Qty: 60 0RF insulin lispro [Humalog KwikPen Insulin] 100 unit/mL insulin pen 1 sliding scale dose subcut USEASDIRECTD Qty: 15 0RF Rx Instructions: Administer 3 times day before meals after checking glucose: 0 units if <150 2 units if 150-199 4 units if 200-249 6 units if 250-299 8 units if 300-349 10 units if 350-399 Call PCP if >400 insulin glargine [Lantus Solostar U-100 Insulin] 100 unit/mL (3 mL) insulin pen 10 unit subcut QAM Qty: 15 0RF trazodone 150 mg tablet 150 mg PO BEDTIME gabapentin 100 mg capsule 100 mg PO TID metformin 500 mg tablet extended release 24 hr 1,000 mg PO BID Discharge Orders: Discharge Order (Routine); Ordered 10/19/22 Ordered By: Ace Cuevas Diet: Advance to usual diet Activity on Discharge: As tolerated Stand Alone Forms: Patient Portal Discharge page Care Plan Goals: recovery Health Concerns: pna, pancreatitis Plan of Treatment: 5 more days augmentin Assessment: see above
--- NOTE | 2022-10-19 09:20 | MHC.CM.PN ---
Addendum entered by Janet Ferreira 10/19/22 10:43: S/O UNABLE TO TRANSPORT HOME, [facility] SHUTTLE BOOKED FOR 10:45 AM Original Note: DP: PT HAS BEEN MEDICALLY CLEARED FOR DC HOME, NO SERVICES. WILL RESUME [employer] PREVIOUS. S/O WILL TRANSPORT HOME
== END 2022-10-19 10:51 | disposition home or self-care (01) | DRG 282 ==
LOC: HO.ED 14:52 → HO.EDOVER 16:55 → HO.S3 10-17 10:50
PROVIDERS: Nurse Practitioner Family; Admitting Provider Physician Assistant; Emergency Provider Emergency Medicine; PCP Internal Medicine; Visit Provider Internal Medicine
DX: K85.80 Other acute pancreatitis without necrosis or infection (principal); J69.0 Pneumonitis due to inhalation of food and vomit; K85.90 Acute pancreatitis without necrosis or infection, unspecified; E11.65 Type 2 diabetes mellitus with hyperglycemia; F31.9 Bipolar disorder, unspecified; J45.20 Mild intermittent asthma, uncomplicated; E78.5 Hyperlipidemia, unspecified; E66.9 Obesity, unspecified; Z68.38 Body mass index [BMI] 38.0-38.9, adult; Z20.811 Contact with and (suspected) exposure to meningococcus; Z93.0 Tracheostomy status; Z79.4 Long term (current) use of insulin; Z79.01 Long term (current) use of anticoagulants; Z79.84 Long term (current) use of oral hypoglycemic drugs; Z79.899 Other long term (current) drug therapy
CPT/HCPCS: 36415; 71260; 74177; 80048; 80076; 81001; 82947; 83605; 83690; 83735; 84484; 85025; 85027; 85610; 87040; 87086; 87633; 87635; 93005; 99285; J0295; J0456; J0696; J1170; J2270; J2405; J2920; Q9967

== ENCOUNTER → 2022-10-16 10:59 | Outpatient (BNV) | payer OTHER, SELFPAY | PROVIDERS: Admitting Provider Physician Assistant; Emergency Provider Emergency Medicine; PCP Internal Medicine; Visit Provider Internal Medicine | DX: R94.31 Abnormal electrocardiogram [ECG] [EKG] (principal) | CPT/HCPCS: 93010 ==

== ENCOUNTER → 2022-10-16 15:09 | Outpatient (BNV) | payer OTHER, SELFPAY | PROVIDERS: Admitting Provider Physician Assistant; Emergency Provider Emergency Medicine; PCP Internal Medicine; Visit Provider Surgery | DX: K85.90 Acute pancreatitis without necrosis or infection, unspecified (principal); R10.9 Unspecified abdominal pain | CPT/HCPCS: 99222 ==

== ENCOUNTER → 2022-10-16 15:09 | Outpatient (BNV) | payer OTHER, SELFPAY | PROVIDERS: Admitting Provider Physician Assistant; Emergency Provider Emergency Medicine; PCP Internal Medicine; Visit Provider Physician Assistant | DX: R10.9 Unspecified abdominal pain (principal) | CPT/HCPCS: 99223; 99232; 99239 ==

== ENCOUNTER 2022-12-21 09:22 | Inpatient (IN) | payer OTHER, SELFPAY ==
[2022-12-21] VITALS (7 sets, daily range): BP systolic 123–152; BP diastolic 64–87; PULSE 74–110; RESP 16–20; TEMP 37–37.4; O2SAT 88–96; BMI 36.3
--- NOTE | 2022-12-21 10:32 | ED_ITS ---
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 She states that she has been using around the clock nebulized treatments without significant success. Related Data Home Medications Medication Instructions Recorded Confirmed albuterol sulfate 2.5 mg/3 mL 1 vial inhalation Q4H PRN wheezing 10/28/21 10/16/22 (0.083 %) solution for nebulization atorvastatin 10 mg tablet 1 tab PO DAILY 10/28/21 10/16/22 clonazepam 1 mg tablet 1 tab PO BID 10/28/21 10/16/22 escitalopram oxalate 20 mg tablet 1 tab PO BEDTIME 10/28/21 10/16/22 famotidine 20 mg tablet 1 tab PO BID 10/28/21 10/16/22 fluticasone propionate 50 1 spray intranasal DAILY 10/28/21 10/16/22 mcg/actuation nasal spray,suspension glipizide 5 mg tablet 1 tab PO BID 10/28/21 10/16/22 lurasidone 60 mg tablet (Latuda) 1 tab PO DAILY 10/28/21 10/16/22 oxcarbazepine 300 mg tablet 1 tab PO BID 10/28/21 10/16/22 promethazine 25 mg tablet 1 tab PO DAILY PRN nausea 10/28/21 10/16/22 albuterol sulfate 90 mcg/actuation 2 puff inhalation QID PRN 01/24/22 10/16/22 aerosol inhaler (Ventolin HFA) Shortness Of Breath diphenhydramine HCl 25 mg capsule 25 mg PO Q6H PRN POST NASAL DRIP 01/24/22 10/16/22 (Benadryl) tizanidine 4 mg tablet 1 tab PO DAILY PRN muscle spasm 01/24/22 10/16/22 gabapentin 100 mg capsule 100 mg PO TID 10/16/22 10/16/22 metformin 500 mg tablet,extended 1,000 mg PO BID 10/16/22 10/16/22 release 24 hr trazodone 150 mg tablet 150 mg PO BEDTIME 10/16/22 10/16/22 Previous Rx's Medication Instructions Recorded apixaban 5 mg tablet (Eliquis) 5 mg PO BID #60 tabs 03/22/22 insulin glargine 100 unit/mL (3 10 unit (0.1 mL) subcut QAM #15 mL 04/07/22 mL) subcutaneous pen (Lantus Solostar U-100 Insulin) insulin lispro 100 unit/mL 1 sliding scale dose subcut 04/07/22 subcutaneous pen (Humalog KwikPen USEASDIRECTD #15 mL (U-100) Insulin) amoxicillin 875 mg-potassium 1 tab PO BID #10 tabs 10/19/22 clavulanate 125 mg tablet oxycodone 5 mg tablet 5 mg PO Q6H PRN Pain, 10/19/22 Moderate(Pain Scale 4-6) #10 tabs Allergies Allergy/AdvReac Type Severity Reaction Status Date / Time pantoprazole Allergy Unknown Verified 10/16/22 10:22 Review of Systems 2 Review of Systems: Pertinent positives and negatives as stated in HPI [facility] Past Medical History Source: nursing notes reviewed Medical History Asthma Bipolar 1 disorder Diabetes History of cardiac arrest Kidney stones Substance abuse Takotsubo cardiomyopathy UTI (urinary tract infection) Wound drainage Surgical History H/O exploratory laparotomy S/P cholecystectomy S/P ureteral stent placement Family History Family History Mother No pertinent family history Father No pertinent family history Social History Social History Household Members: Spouse Household Members Other:: 1 Housing: Apartment Do you presently have visiting nurse or other home services: Yes ([employer] 9 hrs weekly) Alcohol intake: never Patient Tobacco Use Status: Never used Tobacco Smoked in Last 30 Days: No Second Hand Smoke Exposure: Yes Use of substances other than those prescribed or required for medical reasons: No Advance Directives: Yes Advance Directives Information Provided: Yes Advance Directives on File: No Advance Directives Date on File: 01/25/22 Patient : No service: No Current occupational status: disabled Physical Exam 2 Vital Signs: Vital Signs: Last Vital Signs Temp 98.6 F 12/21/22 15:47 Pulse 74 12/21/22 17:07 Resp 16 12/21/22 17:07 BP 130/64 12/21/22 17:07 Pulse Ox 88 L 12/21/22 17:07 O2 Del Method Nasal Cannula 12/21/22 17:07 O2 Flow Rate 4 12/21/22 17:07 BMI result Body Mass Index 36.3 VITAL SIGNS: Reviewed. GENERAL: Well developed, well nourished, in no acute distress. HEAD: Normocephalic/atraumatic EYES: PERRLA, EOMI EARS: Ext canals without abnormality NOSE: Nares patent bilateral OROPHARYNX: no oral lesions noted, posterior pharynx clear NECK: Supple, no adenopathy, tracheostomy in good condition, no surrounding issues and does not appear to be blocked LUNGS: Coarse rhonchi with mild expiratory wheeze no obvious increase in work of breathing or tachypnea SpO2<88> on 2 L and increased to 3 L via nasal cannula CARDIOVASCULAR: Regular rate and rhythm without noted murmurs, no JVD or lower extremity edema. ABDOMEN: Soft, non-tender, non-distended with bowel sounds. MUSCULOSKELETAL: No tenderness, deformities, or effusions noted on gross inspection. EXTREMITIES: No cyanosis, clubbing or edema. SKIN: Inspection of the skin reveals no rashes NEUROLOGIC: Alert and oriented x 4. Strength and sensation to light touch were grossly intact x 4. Medications Administered Discontinued Medications Generic Name Dose Route Start Last Admin Trade Name Freq PRN Reason Stop Dose Admin Albuterol Sulfate 2.5 mg/ 5 mg 12/21/22 10:58 12/21/22 11:03 Albuterol Sulfate 2.5 mg INHALE 12/21/22 10:59 5 mg ONCE ONE Administration Insulin Human Lispro 9 unit 12/21/22 14:21 12/21/22 14:49 Insulin Lispro 100 Unit/Ml 3 Ml Vial SUBCUT 12/21/22 14:22 9 unit ONCE ONE Administration Methylprednisolone Sodium Succinate 125 mg 12/21/22 14:21 12/21/22 14:49 Methylprednisolone Sod Succ 125 Mg/2 Ml Vial IVPUSH 12/21/22 14:22 125 mg ONCE ONE Administration Medical Decision Making Medical Decision Making [facility] Narrative: 52-year-old female with history and clinical presentation, DDX: Asthma exacerbation, viral syndrome, pancreatitis, gastritis. - I received sign-out from Dr. Kunz - My interpretation of CT scan of the chest: Bilateral pneumonia, ground-glass opacities present bilaterally. CT scan Radiology report is pending. - at this time, 17:10, patient is being empirically treated with IV fluids based on ideal weight of 50 kg, patient is obese, IV ceftriaxone and azithromycin. Patient already received a dose of Solu-Medrol. sepsis is not suspected - Patient is using more oxygen than baseline, baseline for the patient is 2 L, patient is on 4 L with constant oxygen desaturations to 87-88% At rest. - Radiology report of CT scan of the chest abdomen pelvis pending - my interpretation of CT scan of the abdomen: Large abdominal hernia, no obstruction - I discussed the patient with Dr. Nolasco, patient being admitted. Discussed the above-mentioned plan with the patient, patient agreeable Differential Diagnosis Differential Diagnoses: The differential diagnosis associated with the presentation includes Please see the discussion above Admission/Observation Consideration of admission/observation: Escalation of care including admission/observation considered Please see the discussion above Lab Data [facility] Lab Attestation statement: I reviewed the patient's lab results. 12/21/22 10:24 12/21/22 10:24 Labs: Lab Results 12/21/22 12/21/22 12/21/22 Range/Units 10:24 14:11 14:33 WBC 12.1 H (4.8-10.8) X10*3/uL RBC 4.26 (4.20-5.50) X10*6/uL Hgb 11.1 L (12.0-16.0) g/dl Hct 35.2 L (37.0-47.0) % MCV 82.6 (80.0-98.0) fL MCH 26.1 L (27.0-33.0) pg MCHC 31.5 (31.0-35.0) g/dl RDW 14.4 (11.0-16.0) % Plt Count 382 D (160-400) X10*3/uL MPV 9.1 L (9.4-12.3) fL Immature Gran % (Auto) 0.3 (0.0-0.4) % Neut % (Auto) 90.2 H (45-73) % Lymph % (Auto) 4.3 L (20-40) % [place] % (Auto) 4.3 (2-11) % Eos % (Auto) 0.7 (0-4) % Baso % (Auto) 0.2 (0-2) % Lymph # (Auto) 0.5 L (1.2-4.9) X10*3/uL [place] # (Auto) 0.5 (0.1-1.2) X10*3/uL Eos # (Auto) 0.1 (0.0-0.4) X10*3/uL Baso # (Auto) 0.0 (0.0-0.2) X10*3/uL Abs Immat Gran (auto) 0.04 H (0.00-0.03) X10*3/uL Absolute Neuts (auto) 11.0 H (2.0-8.3) x10*3/uL Absolute Nucleated RBC 0.000 (0.0-0.012) X10*3/uL Nucleated RBC % (auto) 0.0 (0.0-0.2) /100WBC Smear Tech's Comments VERIFIED VBG pH (7.32-7.43) VBG pCO2 mmHg VBG pO2 mmHg VBG HCO3 (22-26) mmol/L VBG O2 Saturation % VBG Base Excess mmol/L Sodium 133 L (135-145) mmol/L Potassium 4.6 (3.3-5.1) mmol/L Chloride 94 L (96-108) mmol/L Carbon Dioxide 28 (22-29) mmol/L Anion Gap 16 (12-20) BUN 11 (9-16) mg/dL Creatinine 1.07 (0.5-1.4) mg/dL Estim Creat Clear Calc 65.9 Estimated GFR 54 POC Glucose 327 H (60-115) mg/dL Random Glucose 439 H* (60-115) mg/dL Calcium 9.1 (8.4-10.2) mg/dL Total Bilirubin 0.4 (0.0-1.0) mg/dL AST 9 (5-31) U/L ALT 9 (0-31) U/L Alkaline Phosphatase 184 H (39-117) U/L Troponin I High Sens < 2.7 (<3.5-17.0) ng/L Total Protein 7.3 (6.5-8.0) g/dL Albumin 3.7 (3.5-5.0) g/dL Lipase 5 L (8-78) U/L Urine Color Yellow Urine Appearance Clear Urine pH 7.0 (5.0-9.0) Ur Specific [place] 1.025 (1.005-1.025) Urine Protein Trace (Neg-Trace) mg/dL Urine Glucose (UA) >=1000 H (Negative) mg/dL Urine Ketones Negative (Negative) mg/dL Urine Blood Negative (Negative) Urine Nitrite Negative (Negative) Ur Leukocyte Esterase Negative (Negative) Urine RBC 0-2 (0-2) /HPF Urine WBC 0-5 (0-5) /HPF Ur Squamous Epith Cells 3-5 (0-2) /HPF Urine Bacteria Trace (None Seen) Hyaline Casts 0-2 (0-2) /LPF COVID-19 (PRETTY) (Negative) COVID-19 Clin Com Influenza Type A (JOSE) (Negative) Influenza Type B (JOSE) (Negative) Influenza A & B Note 12/21/22 12/21/22 Range/Units 15:50 17:04 WBC (4.8-10.8) X10*3/uL RBC (4.20-5.50) X10*6/uL Hgb (12.0-16.0) g/dl Hct (37.0-47.0) % MCV (80.0-98.0) fL MCH (27.0-33.0) pg MCHC (31.0-35.0) g/dl RDW (11.0-16.0) % Plt Count (160-400) X10*3/uL MPV (9.4-12.3) fL Immature Gran % (Auto) (0.0-0.4) % Neut % (Auto) (45-73) % Lymph % (Auto) (20-40) % [place] % (Auto) (2-11) % Eos % (Auto) (0-4) % Baso % (Auto) (0-2) % Lymph # (Auto) (1.2-4.9) X10*3/uL [place] # (Auto) (0.1-1.2) X10*3/uL Eos # (Auto) (0.0-0.4) X10*3/uL Baso # (Auto) (0.0-0.2) X10*3/uL Abs Immat Gran (auto) (0.00-0.03) X10*3/uL Absolute Neuts (auto) (2.0-8.3) x10*3/uL Absolute Nucleated RBC (0.0-0.012) X10*3/uL Nucleated RBC % (auto) (0.0-0.2) /100WBC Smear Tech's Comments VBG pH 7.48 H (7.32-7.43) VBG pCO2 47 mmHg VBG pO2 170 mmHg VBG HCO3 36 H (22-26) mmol/L VBG O2 Saturation 99.0 % VBG Base Excess 11.5 mmol/L Sodium (135-145) mmol/L Potassium (3.3-5.1) mmol/L Chloride (96-108) mmol/L Carbon Dioxide (22-29) mmol/L Anion Gap (12-20) BUN (9-16) mg/dL Creatinine (0.5-1.4) mg/dL Estim Creat Clear Calc Estimated GFR POC Glucose (60-115) mg/dL Random Glucose (60-115) mg/dL Calcium (8.4-10.2) mg/dL Total Bilirubin (0.0-1.0) mg/dL AST (5-31) U/L ALT (0-31) U/L Alkaline Phosphatase (39-117) U/L Troponin I High Sens (<3.5-17.0) ng/L Total Protein (6.5-8.0) g/dL Albumin (3.5-5.0) g/dL Lipase (8-78) U/L Urine Color Urine Appearance Urine pH (5.0-9.0) Ur Specific [place] (1.005-1.025) Urine Protein (Neg-Trace) mg/dL Urine Glucose (UA) (Negative) mg/dL Urine Ketones (Negative) mg/dL Urine Blood (Negative) Urine Nitrite (Negative) Ur Leukocyte Esterase (Negative) Urine RBC (0-2) /HPF Urine WBC (0-5) /HPF Ur Squamous Epith Cells (0-2) /HPF Urine Bacteria (None Seen) Hyaline Casts (0-2) /LPF COVID-19 (PRETTY) Negative (Negative) COVID-19 Clin Com See Note Influenza Type A (JOSE) Negative (Negative) Influenza Type B (JOSE) Negative (Negative) Influenza A & B Note See Note Independent Interpretation I performed an independent interpretation of an: EKG Interpretation: Sinus tachycardia, HR-103, no STEMI, FL/QRS/QTC is within normal limits. Radiology Impression Discussion of test interpretation with radiology: I have reviewed the radiologist's reading. Radiologist Impression: FINDINGS: LUNGS: Numerous rounded groundglass opacities upper lungs probably representing pneumonitis or small pneumonia. Elevated right hemidiaphragm. Bronchial Wall thickening and denser subsegmental atelectasis or small infiltrate in the right lower lobe. Bronchial wall thickening and subsegmental atelectasis in the right middle lobe and left lower lobe.. Tracheostomy tube with tip 7 cm above the jose. MEDIASTINUM: Shotty mediastinal lymphadenopathy. Upper normal size ascending thoracic aorta. Upper normal heart size. No pericardial effusion. Normal thyroid gland. CORONARY ARTERY CALCIFICATION: None visualized on this study. PLEURA: There is no pleural effusion. No pleural mass or thickening. AXILLA: No lymphadenopathy. UPPER ABDOMEN: Enlarged fatty liver. Large ventral stomach:. OSSEOUS STRUCTURES: Degenerative changes of the spine. CT/CT chest wo IV con IMPRESSION: Patchy round groundglass opacities probably representing pneumonitis or pneumonia. Denser atelectasis/pneumonia and bronchial wall thickening at the lung bases, right greater than left. Covid infection should be excluded. Elevated right hemidiaphragm. Tracheostomy tube. Shotty mediastinal lymphadenopathy. FINDINGS: LUNG BASES: Jamie wall thickening and subsegmental atelectasis in the right middle, right lower and left lower lobes. Elevated right hemidiaphragm. LIVER, GALLBLADDER, AND BILIARY TREE: Enlarged fatty liver. Gallbladder not seen. No biliary duct dilatation. PANCREAS: Atrophic changes. SPLEEN: Unremarkable. ADRENAL GLANDS: Unremarkable. KIDNEYS AND URETERS: Small bilateral 1 mm renal stones. No hydronephrosis, ureteral dilatation or renal stone. BLADDER: Not optimally distended. GASTROINTESTINAL TRACT: Large broad-based abdominal wall hernia or bulge containing the left lobe of the liver, distal stomach, colon and small bowel. No evidence of obstruction. Questionable for mild constipation. Seen. ABDOMINAL WALL: See above LYMPH NODES: Normal. VASCULAR: IVC filter. PELVIC VISCERA: IUD in the uterus. Small uterine calcifications probably representing calcified fibroids. OSSEOUS STRUCTURES: Disc fusion hardware at L4-L5. Degenerative changes of the spine. CT/CT abdomen pelvis wo IV con IMPRESSION: Enlarged fatty liver. Small nonobstructing bilateral renal stones. Large broad based abdominal wall hernia containing left lobe of liver, distal stomach and small and large bowel. No evidence of obstruction. IUD in the uterus. IVC filter. Critical Care Time Critical Care Time Critical Care Time: Yes Total Critical Care Time: 60 Attestation: ??I have personally provided critical care time. Time includes review of lab data, radiology results, discussion with consultants, and monitoring for potential decompensation. Intervention performed as documented. Discharge Plan Discharge Clinical Impression: Pneumonia Patient Disposition: Admitted As Inpatient Prescriptions: No Action tizanidine 4 mg tablet 1 tab PO DAILY PRN (Reason: muscle spasm) albuterol sulfate [Ventolin HFA] 90 mcg/actuation HFA aerosol inhaler 2 puff inhalation QID PRN (Reason: Shortness Of Breath) diphenhydramine HCl [Benadryl] 25 mg Capsule 25 mg PO Q6H PRN (Reason: POST NASAL DRIP) albuterol sulfate 2.5 mg /3 mL (0.083 %) solution for nebulization 1 vial inhalation Q4H PRN (Reason: wheezing) atorvastatin 10 mg tablet 1 tab PO DAILY clonazepam 1 mg tablet 1 tab PO BID oxcarbazepine 300 mg tablet 1 tab PO BID famotidine 20 mg tablet 1 tab PO BID promethazine 25 mg tablet 1 tab PO DAILY PRN (Reason: nausea) fluticasone propionate 50 mcg/actuation spray,suspension 1 spray intranasal DAILY glipizide 5 mg tablet 1 tab PO BID escitalopram oxalate 20 mg tablet 1 tab PO BEDTIME lurasidone [Latuda] 60 mg tablet 1 tab PO DAILY Eliquis 5 mg tablet 5 mg PO BID Qty: 60 0RF insulin lispro [Humalog KwikPen Insulin] 100 unit/mL insulin pen 1 sliding scale dose subcut USEASDIRECTD Qty: 15 0RF Rx Instructions: Administer 3 times day before meals after checking glucose: 0 units if <150 2 units if 150-199 4 units if 200-249 6 units if 250-299 8 units if 300-349 10 units if 350-399 Call PCP if >400 insulin glargine [Lantus Solostar U-100 Insulin] 100 unit/mL (3 mL) insulin pen 10 unit subcut QAM Qty: 15 0RF trazodone 150 mg tablet 150 mg PO BEDTIME gabapentin 100 mg capsule 100 mg PO TID metformin 500 mg tablet extended release 24 hr 1,000 mg PO BID oxycodone 5 mg Tablet 5 mg PO Q6H PRN (Reason: Pain, Moderate(Pain Scale 4-6)) Qty: 10 0RF Rx Instructions: Partial Fill upon patient request. amoxicillin-pot clavulanate 875-125 mg tablet 1 tab PO BID Qty: 10 0RF
--- NOTE | 2022-12-21 18:33 | PHA.MEDREC ---
Pharmacy Consult ? Medication Reconciliation Pharmacy has completed the medication reconciliation. Patient confirmed medicaitons. Ama Laguerre, [email or web address]
--- NOTE | 2022-12-21 18:33 | PM.IMHP ---
History of Present Illness Date of Service: 12/21/22 Attending physician on admission: Anand Nolasco Chief Complaint: sob, cough 51-year-old female with a past medical history of hypertension, hyperlipidemia, diabetes, asthma with chronic hypoxemic respiratory failure on 2 L supplemental O2 at baseline, history of acute respiratory failure secondary to asthma exacerbation requiring intubation, complicated by cardiac arrest x2, subsequently had tracheostomy, has trach collar; history of necrotizing pancreatitis status post surgery; nephrolithiasis; history of ESBL UTI; anxiety, depression, bipolar disorder, takotsubo cardiomyopathy, insulin-dependent type 2 diabetes, and history of PE anticoagulated with Eliquis?presented to the ED earlier today for evaluation of upper respiratory symptoms ongoing for 1 day. She was admitted to our service 2 months ago for pneumonia and completed treatment as advised but states that she never felt like her symptoms fully resolved and has continued with pleuritic chest pain and back pain. This morning she felt like her oxygen was low did not check this and has had increasing shortness of breath with productive cough with green/brown sputum production. She is reporting 8/10 pleuritic chest pain. There is also a rhinorrhea. She is also endorsing abdominal pain when taking a deep breath. Denies any fevers, chills, sore throat, nasal congestion, headaches, nausea, vomiting, diarrhea, lightheadedness, palpitations, or chest pressure. She has been using her nebulizer frequently without any improvement in symptoms. She tells me she does not typically suction her trach as she is typically able to expectorate without difficulty. In the ED, initially tachycardic to 110 and hypoxic in the 80s placed on 4 L supplemental O2 maintaining oximetry 88-92%. She is afebrile. There is a leukocytosis of 12.1. Renal function normal, electrolyte levels normal except for sodium 133, chloride 94. Glucose on arrival 439 IVF and 9 units insulin. Urinalysis unremarkable except for significant glucose. Negative for COVID-19, influenza. CXR negative. CT abd pelvis negative for acute intrabdominal abnormality. CT Chest with patchy of round ground-glass opacities possibly representing pneumonitis or pneumonia. Denser atelectasis/pneumonia and bronchial wall thickening at the lung bases right greater than left. In the ED, received IV insulin as above, 125 mg IV methylprednisolone, 1 g ceftriaxone, albuterol neb, and IV morphine. She was also suctioned by RT. Review of Systems Review of Systems: General: No fevers, malaise, unintentional weight loss HEENT: No blurred vision, diplopia. No sore throat, nasal congestion, rhinorrhea, sinus pain, ear pain Cardiovascular: No chest pain, palpitations, or leg edema Respiratory: +shortness of breath, wheezing, cough GI: No abdominal pain, nausea, vomiting, diarrhea, constipation, melena, hematochezia : No dysuria, hematuria, increased urinary frequency, decreased urinary output MSK: No myalgia, back pain Neuro: No headaches, weakness, paresthesias Skin: No rashes or lesions [facility] Medical History History of cardiac arrest Wound drainage Takotsubo cardiomyopathy Kidney stones UTI (urinary tract infection) Bipolar 1 disorder Diabetes Asthma Substance abuse Family History Mother No pertinent family history Father No pertinent family history Surgical History S/P ureteral stent placement H/O exploratory laparotomy S/P cholecystectomy Social History Household Members: Spouse Household Members Other:: 1 Housing: Apartment Do you presently have visiting nurse or other home services: Yes (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 If so, by whom?: No Do you feel safe in your current relationship?: Yes Is there a partner from a previous relationship who is making you feel unsafe now?: No Are you made to feel afraid or neglected: No Advance Directives: Yes Advance Directives Information Provided: Yes Advance Directives on File: No Advance Directives Date on File: 01/25/22 Do you have thoughts of harming others: None Do you have a plan to hurt others: No Plan Recently lost weight without trying: No How much weight loss: Not applicable Eating poorly because of decreased appetite: No Nutrition screen score: 0 Nutrition Risks: No Nutritional Risk Patient : No : No Poor oral hygiene: No service: No Current occupational status: disabled Meds Allergies Allergy/AdvReac Type Severity Reaction Status Date / Time pantoprazole Allergy Unknown Verified 10/16/22 10:22 Active Medications: Current Medications Azithromycin 500 mg/ Sodium (Chloride) 250 mls @ 125 mls/hr IV ONCE ONE Stop: 12/21/22 19:09 Home Medications Medication Instructions Recorded Confirmed Last Taken Type albuterol sulfate 2.5 mg/3 mL 1 vial inhalation Q4H PRN wheezing 10/28/21 12/21/22 12/20/22 History (0.083 %) solution for nebulization atorvastatin 10 mg tablet 1 tab PO DAILY 10/28/21 12/21/22 12/20/22 History clonazepam 1 mg tablet 1 tab PO BID Anxiety 10/28/21 12/21/22 12/20/22 History escitalopram oxalate 20 mg tablet 1 tab PO BEDTIME 10/28/21 12/21/22 12/20/22 History famotidine 20 mg tablet 1 tab PO BID 10/28/21 12/21/22 12/20/22 History fluticasone propionate 50 1 spray intranasal DAILY 10/28/21 12/21/22 12/20/22 History mcg/actuation nasal spray,suspension glipizide 5 mg tablet 1 tab PO BID 10/28/21 12/21/22 12/20/22 History lurasidone 60 mg tablet (Latuda) 1 tab PO DAILY 10/28/21 12/21/22 12/20/22 History oxcarbazepine 300 mg tablet 1 tab PO BID 10/28/21 12/21/22 12/20/22 History promethazine 25 mg tablet 1 tab PO DAILY PRN nausea 10/28/21 12/21/22 04/05/22 History albuterol sulfate 90 mcg/actuation 2 puff inhalation QID PRN 01/24/22 12/21/22 04/05/22 History aerosol inhaler (Ventolin HFA) Shortness Of Breath diphenhydramine HCl 25 mg capsule 25 mg PO Q6H PRN POST NASAL DRIP 01/24/22 12/21/22 04/05/22 History (Benadryl) tizanidine 4 mg tablet 1 tab PO DAILY PRN muscle spasm 01/24/22 12/21/22 04/05/22 History gabapentin 100 mg capsule 100 mg PO TID 10/16/22 12/21/22 12/20/22 History metformin 500 mg tablet,extended 1,000 mg PO BID 10/16/22 12/21/22 12/20/22 History release 24 hr trazodone 150 mg tablet 150 mg PO BEDTIME Insomnia 10/16/22 12/21/22 12/20/22 History insulin lispro 100 unit/mL 1 sliding scale dose subcut TIDAC 12/21/22 12/21/22 12/20/22 History subcutaneous pen (Humalog KwikPen (U-100) Insulin) Physical Exam Vital Signs and Narrative: Vital Signs: Last Vital Signs Temp 98.6 F 12/21/22 15:47 Pulse 74 12/21/22 17:07 Resp 16 12/21/22 17:07 BP 130/64 12/21/22 17:07 Pulse Ox 88 L 12/21/22 17:07 O2 Del Method Nasal Cannula 12/21/22 17:07 O2 Flow Rate 4 12/21/22 17:07 BMI result Body Mass Index 36.3 Constitutional - Awake and Alert, No apparent distress Eyes - PERRLA, EOMI Cardiovascular - S1S2, RRR, No edema Respiratory - Normal lung expansion, Normal respiratory effort, No respiratory distress, diminished bilaterally with diffuse rhonchi and expiratory wheezing. Tracheostomy in place Gastrointestinal - NT / ND; +BS; No rebound or guarding Extremities - no calf tenderness bilaterally, no swelling Skin - Warm/Dry Neurological - Alert & oriented x3 Psychological - Appropriate affect Results Labs 12/22/22 06:34 12/22/22 06:34 Labs: Laboratory Results - last 24 hr 12/21/22 12/21/22 12/21/22 10:24 14:11 14:33 MCV 82.6 MCH 26.1 L MCHC 31.5 RDW 14.4 Plt Count 382 D MPV 9.1 L Immature Gran % (Auto) 0.3 Neut % (Auto) 90.2 H Lymph % (Auto) 4.3 L Bell % (Auto) 4.3 Eos % (Auto) 0.7 Baso % (Auto) 0.2 Lymph # (Auto) 0.5 L Bell # (Auto) 0.5 Eos # (Auto) 0.1 Baso # (Auto) 0.0 Abs Immat Gran (auto) 0.04 H Absolute Neuts (auto) 11.0 H Absolute Nucleated RBC 0.000 Nucleated RBC % (auto) 0.0 Smear Tech's Comments VERIFIED VBG pH VBG pCO2 VBG pO2 VBG HCO3 VBG O2 Saturation VBG Base Excess Anion Gap 16 Estim Creat Clear Calc 65.9 Estimated GFR 54 POC Glucose 327 H Random Glucose 439 H* Lactic Acid Calcium 9.1 Total Bilirubin 0.4 AST 9 ALT 9 Alkaline Phosphatase 184 H Total Protein 7.3 Albumin 3.7 Lipase 5 L Urine Color Yellow Urine Appearance Clear Urine pH 7.0 Ur Specific [place] 1.025 Urine Protein Trace Urine Glucose (UA) >=1000 H Urine Ketones Negative Urine Blood Negative Urine Nitrite Negative Ur Leukocyte Esterase Negative Urine RBC 0-2 Urine WBC 0-5 Ur Squamous Epith Cells 3-5 Urine Bacteria Trace Hyaline Casts 0-2 COVID-19 (PRETTY) COVID-19 Clin Com Influenza Type A (JOSE) Influenza Type B (JOSE) Influenza A & B Note 12/21/22 12/21/22 12/21/22 15:50 17:04 17:37 MCV MCH MCHC RDW Plt Count MPV Immature Gran % (Auto) Neut % (Auto) Lymph % (Auto) Bell % (Auto) Eos % (Auto) Baso % (Auto) Lymph # (Auto) Bell # (Auto) Eos # (Auto) Baso # (Auto) Abs Immat Gran (auto) Absolute Neuts (auto) Absolute Nucleated RBC Nucleated RBC % (auto) Smear Tech's Comments VBG pH 7.48 H VBG pCO2 47 VBG pO2 170 VBG HCO3 36 H VBG O2 Saturation 99.0 VBG Base Excess 11.5 Anion Gap Estim Creat Clear Calc Estimated GFR POC Glucose Random Glucose Lactic Acid 1.5 Calcium Total Bilirubin AST ALT Alkaline Phosphatase Total Protein Albumin Lipase Urine Color Urine Appearance Urine pH Ur Specific [place] Urine Protein Urine Glucose (UA) Urine Ketones Urine Blood Urine Nitrite Ur Leukocyte Esterase Urine RBC Urine WBC Ur Squamous Epith Cells Urine Bacteria Hyaline Casts COVID-19 (PRETTY) Negative COVID-19 Clin Com See Note Influenza Type A (JOSE) Negative Influenza Type B (JOSE) Negative Influenza A & B Note See Note Imaging Radiologist's Impressions: Impressions Chest X-Ray 12/21/22 11:08 IMPRESSION: Unremarkable chest exam. Abdomen/Pelvis CT 12/21/22 16:31 IMPRESSION: Enlarged fatty liver. Small nonobstructing bilateral renal stones. Large broad based abdominal wall hernia containing left lobe of liver, distal stomach and small and large bowel. No evidence of obstruction. IUD in the uterus. IVC filter. Fleischner guidelines were followed. Chest CT 12/21/22 16:31 IMPRESSION: Patchy round groundglass opacities probably representing pneumonitis or pneumonia. Denser atelectasis/pneumonia and bronchial wall thickening at the lung bases, right greater than left. Covid infection should be excluded. Elevated right hemidiaphragm. Tracheostomy tube. Shotty mediastinal lymphadenopathy. Fleischner guidelines were followed. Assessment and Plan (1) Pneumonia: Status: Acute (2) Acute respiratory failure with hypoxia: Status: Acute (3) Acute asthma exacerbation: Status: Acute Plan 51-year-old female with a past medical history of hypertension, hyperlipidemia, diabetes, asthma, history of acute respiratory failure secondary to asthma exacerbation requiring intubation, complicated by cardiac arrest x2, subsequently had tracheostomy, has trach collar; chronic hypoxemic respiratory failure on 2 L supplemental O2 at baseline; history of necrotizing pancreatitis status post surgery; nephrolithiasis; history of ESBL UTI; anxiety, depression, bipolar disorder, takotsubo cardiomyopathy, insulin-dependent type 2 diabetes and history of PE anticoagulated with Eliquis admitted for acute on chronic hypoxemic respiratory failure with acute asthma exacerbation and pneumonia. # acute on chronic hypoxemic respiratory failure -secondary to acute asthma exacerbation and pneumonia -VBG reassuring -continue supplemental O2 to maintain oximetry greater than 92% -tracheostomy care # acute asthma exacerbation -full respiratory viral panel pending. Negative for COVID-19 and influenza -DuoNebs q.4h -IV methylprednisolone 40 mg b.i.d. -albuterol p.r.n. # atypical pneumonia -leukocytosis 12.1. No other sirs criteria. Initial tachycardia related to albuterol use not sepsis -chest CT showing bilateral ground-glass opacities concerning for pneumonia/atelectasis -IV ceftriaxone and azithromycin (initiated 12/21) -full viral respiratory panel pending -sputum culture -[employer]ong [employer] and Juju Mcintyre -follow CBC, cultures #insulin-dependent type 2 diabetes with hyperglycemia -hyperglycemia likely secondary to recent steroid use -hold home p.o. meds -POC glucose -diabetic diet -dose adjusted basal insulin -humalog ssi # HLD -continue atorvastatin # mood disorder -continue home med #History PE -eliquis DVT prophylaxis-on Eliquis Full code Pt requires inpt stay at least 2 midnights for management of acute on chronic hypoxemic respiratory failure secondary to asthma exacerbation and pneumonia requiring increased supplemental O2 from baseline, IV antibiotics, and close monitoring to prevent pulmonary decompensation. Time Spent With Patient Time: Total time managing care of this patient today ____ minutes. Quality Stroke Does the patient have a stroke diagnosis?: No VTE Prior VTE?: Yes VTE Risk Level:: Medical - moderate - high VTE Device Contraindication: Treatment Not Indicated VTE Drug Contraindication: N/A - Med Ordered
[2022-12-22] VITALS (8 sets, daily range): BP systolic 109–146; BP diastolic 58–90; PULSE 70–82; RESP 17–19; TEMP 36.1–36.6; O2SAT 90–98; BMI 36.7
[2022-12-22 07:29] LABS: Anion Gap 16 (12-20); Blood Urea Nitrogen 15 mg/dL (9-16); Calcium 9.2 mg/dL (8.4-10.2); Carbon Dioxide 27 mmol/L (22-29); Chloride 99 mmol/L (96-108); Creatinine Clr Calc Pharmacy 67.5; Estimated Glomerular Filt Rate 55; Glucose Random 426 mg/dL (60-115); Potassium 4.6 mmol/L (3.3-5.1); Sodium 137 mmol/L (135-145)
--- NOTE | 2022-12-22 10:27 | MHC.CM.PN ---
PT REPORTS SHE LIVES WITH HER S/O AND HAS DAILY AIRWAY CONTROLLER SERVICES SHE HAS A TRACH AND SUPPLIES WELL A NEBULIZER AND HOME O2 SHE SAYS SHE HAS A HCP NAMING HER S/O HER AGENT PCP: NINFA WOOTEN DCP: HOME RESUME [employer]WAY [employer] S/O TO TRANSPORT
--- NOTE | 2022-12-22 13:10 | HO.PM.IMPN ---
Subjective Subjective Date of Service: 12/22/22 Interval History: Seen and evaluated Feels mildly better but gets dyspnic w exertion Has Rhino virus infx Review of Systems Review of Systems: Yes all other systems are reviewed and are negative Physical Exam Vital Signs: Vital Signs: Last Vital Signs Temp 97.6 F 12/22/22 07:30 Pulse 77 12/22/22 07:40 Resp 18 12/22/22 07:40 BP 146/90 H 12/22/22 07:30 Pulse Ox 90 L 12/22/22 07:30 O2 Del Method Nasal Cannula 12/22/22 07:30 O2 Flow Rate 4.0 12/22/22 07:30 BMI result Body Mass Index 36.7 Const: Other: Constitutional : Awake, interactive, not in distress Neck : Normal inspection, Supple Cardiovascular : RRR, no JVP, no lower extremity edema Respiratory : decreased bilateral air entry, expiratory wheezes Gastrointestinal: soft, lax, Normal bowel sounds, Non tender Skin : Warm, Dry Neurological : Alert & oriented x3, No focal deficit Objective Data Active Medications Acetaminophen (Acetaminophen 325 Mg Tablet) 650 mg PO Q6H PRN PRN Reason: Pain, Mild (Pain Scale 1-3) Albuterol Sulfate (Albuterol Sulfate (0.083%) 2.5 Mg/3 Ml Vial.Neb) 2.5 mg INHALE Q2H PRN PRN Reason: Shortness of Breath/Wheezing Last Admin: 12/21/22 18:56 Dose: 2.5 mg Documented By: ALLISON Albuterol/Ipratropium (Albuterol/Iprat 2.5/0.5mg 3 Ml Ampul.Neb) 3 ml INHALE RQ4H WHILE AWAKE [facility] Last Admin: 12/22/22 12:22 Dose: Not Given Documented By: GRAZYNA Non-Admin Reason: Patient Refused Apixaban (Apixaban 5 Mg Tablet) 5 mg PO BID [facility] Last Admin: 12/22/22 08:56 Dose: 5 mg Documented By: KAVEH Atorvastatin Calcium (Atorvastatin Calcium 10 Mg Tablet) 10 mg PO DAILY [facility] Last Admin: 12/22/22 08:56 Dose: 10 mg Documented By: KAVEH Benzonatate (Benzonatate 100 Mg Capsule) 100 mg PO TID [facility] Last Admin: 12/22/22 08:56 Dose: 100 mg Documented By: KAVEH Clonazepam (Clonazepam 1 Mg Tablet) 1 mg PO BID [facility] Last Admin: 12/22/22 08:56 Dose: 1 mg Documented By: KAVEH Dextrose (Dextrose 50 % 25 Gm/50 Ml Syringe) 25 gm IVPUSH Q15M PRN; Protocol PRN Reason: per Hypoglycemia Standing Ord. Diphenhydramine HCl (Diphenhydramine Hcl 25 Mg Capsule) 25 mg PO Q6H PRN PRN Reason: POST NASAL DRIP Docusate Sodium (Docusate Sodium 100 Mg Capsule) 100 mg PO DAILY PRN PRN Reason: Constipation Escitalopram Oxalate (Escitalopram Oxalate 20 Mg Tablet) 20 mg PO BEDTIME [facility] Last Admin: 12/21/22 20:31 Dose: 20 mg Documented By: MICKY Famotidine (Famotidine 20 Mg Tablet) 20 mg PO BID [facility] Last Admin: 12/22/22 08:56 Dose: 20 mg Documented By: KAVEH Fluticasone Propionate (Fluticasone Propionate Nasal 16 Gm [place]) 1 spray NOSTRIL-B DAILY [facility] Last Admin: 12/22/22 08:59 Dose: Not Given Documented By: KAVEH Non-Admin Reason: Patient Refused Gabapentin (Gabapentin 100 Mg Capsule) 100 mg PO TID [facility] Last Admin: 12/22/22 08:56 Dose: 100 mg Documented By: KAVEH Glucose (Glucose Gel 15 Gm Gel..Gram.) 15 gm PO Q15M PRN; Protocol PRN Reason: per Hypoglycemia Standing Ord. Guaifenesin/Codeine Phosphate (Guaifen/Codeine Sf 200/20/10ml 10 Ml Liquid) 10 ml PO Q4H PRN PRN Reason: Cough Last Admin: 12/22/22 07:19 Dose: 10 ml Documented By: KAVEH Ceftriaxone Sodium 1 gm/ (Sodium Chloride) 50 mls @ 100 mls/hr IV Q24H [facility] Azithromycin 500 mg/ Sodium (Chloride) 250 mls @ 125 mls/hr IV Q24H [facility] Last Infusion: 12/21/22 23:45 Dose: Infused Documented By: MICKY Insulin Glargine (Insulin Glargine,Hum.Rec.Anlog 100 Unit/Ml 10 Ml Vial) 17 unit SUBCUT DAILY [facility] Insulin Human Lispro (Insulin Lispro 100 Unit/Ml 3 Ml Vial) 0 unit SUBCUT QIDACHS [facility]; Protocol Last Admin: 12/22/22 11:59 Dose: 10 unit Documented By: KAVEH Lurasidone HCl (Lurasidone Hcl 20 Mg Tablet) 60 mg PO DAILY [facility] Last Admin: 12/22/22 10:22 Dose: 60 mg Documented By: KAVEH Metformin HCl (Metformin Hcl Er 500 Mg Tab.Er.24h) 1,000 mg PO BID [facility] Last Admin: 12/22/22 11:58 Dose: 1,000 mg Documented By: KAVEH Methylprednisolone Sodium Succinate (Methylprednisolone Sod Succ 40 Mg/Ml Vial) 40 mg IVPUSH Q24H [facility] Ondansetron HCl (Ondansetron Hcl 4 Mg/2 Ml Vial) 4 mg IVPUSH Q8H PRN PRN Reason: Nausea and Vomiting Oxcarbazepine (Oxcarbazepine 300 Mg Tablet) 300 mg PO BID [facility] Last Admin: 12/22/22 08:56 Dose: 300 mg Documented By: KAVEH Promethazine HCl (Promethazine Hcl 25 Mg Tablet) 25 mg PO DAILY PRN PRN Reason: nausea Sodium Chloride (0.9 % Sodium Chloride Flush 3 Ml Syringe) [facility] Last Admin: 12/22/22 08:59 Dose: 3 ml Documented By: KAVEH Tizanidine HCl (Tizanidine Hcl 4 Mg Tablet) 4 mg PO DAILY PRN PRN Reason: muscle spasm Tramadol HCl (Tramadol Hcl 50 Mg Tablet) 50 mg PO Q4H PRN PRN Reason: Pain, Severe (Pain Scale 7-10) Last Admin: 12/22/22 02:19 Dose: 50 mg Documented By: ANTWAN Trazodone HCl (Trazodone Hcl 50 Mg Tablet) 150 mg PO BEDTIME [facility] Last Admin: 12/21/22 20:41 Dose: 150 mg Documented By: MICKY Labs 12/22/22 06:34 12/22/22 06:34 Labs: Laboratory Results - last 24 hr 12/21/22 12/21/22 12/21/22 14:11 14:33 15:50 MCV MCH MCHC RDW Plt Count MPV Immature Gran % (Auto) Neut % (Auto) Lymph % (Auto) [place] % (Auto) Eos % (Auto) Baso % (Auto) Lymph # (Auto) [place] # (Auto) Eos # (Auto) Baso # (Auto) Abs Immat Gran (auto) Absolute Neuts (auto) Absolute Nucleated RBC Nucleated RBC % (auto) VBG pH 7.48 H VBG pCO2 47 VBG pO2 170 VBG HCO3 36 H VBG O2 Saturation 99.0 VBG Base Excess 11.5 Anion Gap Estim Creat Clear Calc Estimated GFR POC Glucose 327 H Random Glucose Lactic Acid Calcium Urine Color Yellow Urine Appearance Clear Urine pH 7.0 Ur Specific [place] 1.025 Urine Protein Trace Urine Glucose (UA) >=1000 H Urine Ketones Negative Urine Blood Negative Urine Nitrite Negative Ur Leukocyte Esterase Negative Urine RBC 0-2 Urine WBC 0-5 Ur Squamous Epith Cells 3-5 Urine Bacteria Trace Hyaline Casts 0-2 Respiratory Panel [place] Adenovirus (Rapid PCR) B.pert (TEM-PCR) B.parapertussis DNA PCR C. pneumoniae DNA (PCR) Coronavirus OC43 (PCR) Coronavirus HKU1 (PCR) Coronavirus 229E (PCR) COVID-19 (PRETTY) COVID-19 Clin Com Coronavirus NL63 (PCR) Human Metapneumovir PCR Influenza Type A (JOSE) Influenza A (RT-PCR) Influenza Type B (JOSE) Influenza B (RT-PCR) Influenza A & B Note M. pneumoniae (PCR) Parainfluenza 1 (PCR) Parainfluenza 2 (PCR) Parainfluenza 3 (PCR) Parainfluenza 4 (PCR) RSV (PCR) Entero/Rhino (PCR) SARS-CoV-2 RNA (RT-PCR) 12/21/22 12/21/22 12/21/22 17:04 17:37 19:13 MCV MCH MCHC RDW Plt Count MPV Immature Gran % (Auto) Neut % (Auto) Lymph % (Auto) [place] % (Auto) Eos % (Auto) Baso % (Auto) Lymph # (Auto) [place] # (Auto) Eos # (Auto) Baso # (Auto) Abs Immat Gran (auto) Absolute Neuts (auto) Absolute Nucleated RBC Nucleated RBC % (auto) VBG pH VBG pCO2 VBG pO2 VBG HCO3 VBG O2 Saturation VBG Base Excess Anion Gap Estim Creat Clear Calc Estimated GFR POC Glucose Random Glucose Lactic Acid 1.5 Calcium Urine Color Urine Appearance Urine pH Ur Specific [place] Urine Protein Urine Glucose (UA) Urine Ketones Urine Blood Urine Nitrite Ur Leukocyte Esterase Urine RBC Urine WBC Ur Squamous Epith Cells Urine Bacteria Hyaline Casts Respiratory Panel [place] See Note Adenovirus (Rapid PCR) Not Detected B.pert (TEM-PCR) Not Detected B.parapertussis DNA PCR Not Detected C. pneumoniae DNA (PCR) Not Detected Coronavirus OC43 (PCR) Not Detected Coronavirus HKU1 (PCR) Not Detected Coronavirus 229E (PCR) Not Detected COVID-19 (PRETTY) Negative COVID-19 Clin Com See Note Coronavirus NL63 (PCR) Not Detected Human Metapneumovir PCR Not Detected Influenza Type A (JOSE) Negative Influenza A (RT-PCR) Not Detected Influenza Type B (JOSE) Negative Influenza B (RT-PCR) Not Detected Influenza A & B Note See Note M. pneumoniae (PCR) Not Detected Parainfluenza 1 (PCR) Not Detected Parainfluenza 2 (PCR) Not Detected Parainfluenza 3 (PCR) Not Detected Parainfluenza 4 (PCR) Not Detected RSV (PCR) Not Detected Entero/Rhino (PCR) Detected A SARS-CoV-2 RNA (RT-PCR) Not Detected 12/21/22 12/21/22 12/22/22 19:16 20:31 06:34 MCV 86.0 MCH 25.9 L MCHC 30.1 L RDW 14.4 Plt Count 410 H MPV 9.8 Immature Gran % (Auto) 0.4 Neut % (Auto) 83.7 H Lymph % (Auto) 10.0 L [place] % (Auto) 5.5 Eos % (Auto) 0.1 Baso % (Auto) 0.3 Lymph # (Auto) 0.9 L [place] # (Auto) 0.5 Eos # (Auto) 0.0 Baso # (Auto) 0.0 Abs Immat Gran (auto) 0.04 H Absolute Neuts (auto) 7.6 Absolute Nucleated RBC 0.000 Nucleated RBC % (auto) 0.0 VBG pH VBG pCO2 VBG pO2 VBG HCO3 VBG O2 Saturation VBG Base Excess Anion Gap 16 Estim Creat Clear Calc 67.5 Estimated GFR 55 POC Glucose 258 H 467 H* Random Glucose 426 H* Lactic Acid Calcium 9.2 Urine Color Urine Appearance Urine pH Ur Specific [place] Urine Protein Urine Glucose (UA) Urine Ketones Urine Blood Urine Nitrite Ur Leukocyte Esterase Urine RBC Urine WBC Ur Squamous Epith Cells Urine Bacteria Hyaline Casts Respiratory Panel [place] Adenovirus (Rapid PCR) B.pert (TEM-PCR) B.parapertussis DNA PCR C. pneumoniae DNA (PCR) Coronavirus OC43 (PCR) Coronavirus HKU1 (PCR) Coronavirus 229E (PCR) COVID-19 (PRETTY) COVID-19 Clin Com Coronavirus NL63 (PCR) Human Metapneumovir PCR Influenza Type A (JOSE) Influenza A (RT-PCR) Influenza Type B (JOSE) Influenza B (RT-PCR) Influenza A & B Note M. pneumoniae (PCR) Parainfluenza 1 (PCR) Parainfluenza 2 (PCR) Parainfluenza 3 (PCR) Parainfluenza 4 (PCR) RSV (PCR) Entero/Rhino (PCR) SARS-CoV-2 RNA (RT-PCR) 12/22/22 12/22/22 07:19 11:25 MCV MCH MCHC RDW Plt Count MPV Immature Gran % (Auto) Neut % (Auto) Lymph % (Auto) [place] % (Auto) Eos % (Auto) Baso % (Auto) Lymph # (Auto) [place] # (Auto) Eos # (Auto) Baso # (Auto) Abs Immat Gran (auto) Absolute Neuts (auto) Absolute Nucleated RBC Nucleated RBC % (auto) VBG pH VBG pCO2 VBG pO2 VBG HCO3 VBG O2 Saturation VBG Base Excess Anion Gap Estim Creat Clear Calc Estimated GFR POC Glucose 361 H* 508 H* Random Glucose Lactic Acid Calcium Urine Color Urine Appearance Urine pH Ur Specific [place] Urine Protein Urine Glucose (UA) Urine Ketones Urine Blood Urine Nitrite Ur Leukocyte Esterase Urine RBC Urine WBC Ur Squamous Epith Cells Urine Bacteria Hyaline Casts Respiratory Panel [place] Adenovirus (Rapid PCR) B.pert (TEM-PCR) B.parapertussis DNA PCR C. pneumoniae DNA (PCR) Coronavirus OC43 (PCR) Coronavirus HKU1 (PCR) Coronavirus 229E (PCR) COVID-19 (PRETTY) COVID-19 Clin Com Coronavirus NL63 (PCR) Human Metapneumovir PCR Influenza Type A (JOSE) Influenza A (RT-PCR) Influenza Type B (JOSE) Influenza B (RT-PCR) Influenza A & B Note M. pneumoniae (PCR) Parainfluenza 1 (PCR) Parainfluenza 2 (PCR) Parainfluenza 3 (PCR) Parainfluenza 4 (PCR) RSV (PCR) Entero/Rhino (PCR) SARS-CoV-2 RNA (RT-PCR) Assessment and Plan (1) Intractable abdominal pain: Status: Acute (2) Acute respiratory failure with hypoxia: Status: Acute (3) Acute asthma exacerbation: Status: Acute (4) Hyperglycemia due to type 2 diabetes mellitus: Status: Acute Plan 51-year-old female with a past medical history of hypertension, hyperlipidemia, diabetes, asthma, history of acute respiratory failure secondary to asthma exacerbation requiring intubation, complicated by cardiac arrest x2, subsequently had tracheostomy, has trach collar; chronic hypoxemic respiratory failure on 2 L supplemental O2 at baseline; history of necrotizing pancreatitis status post surgery; nephrolithiasis; history of ESBL UTI; anxiety, depression, bipolar disorder, takotsubo cardiomyopathy, insulin-dependent type 2 diabetes and history of PE anticoagulated with Eliquis admitted for acute on chronic hypoxemic respiratory failure with acute asthma exacerbation and pneumonia. # acute on chronic hypoxemic respiratory failure 2/2 asthma exacerbation and atypical pneumonia chest CT showing bilateral ground-glass opacities concerning for pneumonia/atelectasis tracheostomy care respiratory viral panel pending DuoNebs q.4h IV methylprednisolone 40 mg b.i.d. IV ceftriaxone and azithromycin (initiated 12/21) sputum culture Phong [employer]ER and Juju Mcintyre follow CBC, cultures #insulin-dependent type 2 diabetes with hyperglycemia hyperglycemia likely secondary to recent steroid use restart Metformin Increase LAntus POC glucose humalog ssi # HLD continue atorvastatin # mood disorder continue home med #History PE eliquis DVT prophylaxis Eliquis Pt requires inpt stay overnight for management of acute on chronic hypoxemic respiratory failure secondary to asthma exacerbation and pneumonia requiring increased supplemental O2 from baseline, IV antibiotics, and close monitoring to prevent pulmonary decompensation. Time Spent With Patient Time: Total time managing care of this patient today ____ minutes. Quality Stroke Does the patient have a stroke diagnosis?: No VTE Prior VTE?: Yes VTE Risk Level:: Medical - moderate - high VTE Device Contraindication: Treatment Not Indicated VTE Drug Contraindication: N/A - Med Ordered
[2022-12-22 16:55] LABS: Glucose, Whole Blood 260 mg/dL (60-115)
[2022-12-22] MEDS: Insulin Lispro 100 UNIT/ML 3 ML VIAL SUBCUT ×2 (17:13→21:16)
[2022-12-22 20:08] LABS: Glucose, Whole Blood 183 mg/dL (60-115)
[2022-12-22] MEDS: Albuterol/Iprat 2.5/0.5MG 3 ML AMPUL.NEB INHALE (20:20)
[2022-12-22] MEDS: traZODone HCL 50 MG TABLET 150 MG PO (21:14)
[2022-12-22] MEDS: Apixaban 5 MG TABLET PO (21:14)
[2022-12-22] MEDS: Gabapentin 100 MG CAPSULE PO (21:15)
[2022-12-22] MEDS: Escitalopram Oxalate 20 MG TABLET PO (21:15)
[2022-12-22] MEDS: Benzonatate 100 MG CAPSULE PO (21:15)
[2022-12-22] MEDS: Famotidine 20 MG TABLET PO (21:15)
[2022-12-22] MEDS: clonazePAM 1 MG TABLET PO (21:15)
[2022-12-22] MEDS: OXcarbazepine 300 MG TABLET PO (21:15)
[2022-12-22] MEDS: metFORMIN HCl ER 500 MG TAB.ER.24H 1000 MG PO (21:15)
[2022-12-22] MEDS: Promethazine HCL 25 MG TABLET PO (21:33)
[2022-12-23] MEDS: guaiFEN/Codeine SF 200/20/10ML 10 ML LIQUID PO ×2 (00:09→05:34)
[2022-12-23 03:13] VITALS: BP 113/55; PULSE 66; RESP 18; TEMP 36.2; O2SAT 95
[2022-12-23 07:35] LABS: Glucose, Whole Blood 206 mg/dL (60-115)
[2022-12-23 07:36] VITALS: BP 105/56; PULSE 62; RESP 19; TEMP 36.7; O2SAT 95
[2022-12-23] MEDS: Insulin Lispro 100 UNIT/ML 3 ML VIAL SUBCUT ×2 (07:57→12:02)
[2022-12-23] MEDS: Insulin Glargine,Hum.rec.anlog 100 UNIT/ML 10 ML VIAL 17 UNIT SUBCUT (07:58)
[2022-12-23] MEDS: Benzonatate 100 MG CAPSULE PO (08:00)
[2022-12-23] MEDS: methylPREDNISolone Sod Succ 40 MG/ML VIAL IVPUSH (08:00)
[2022-12-23] MEDS: clonazePAM 1 MG TABLET PO (08:01)
[2022-12-23] MEDS: Atorvastatin Calcium 10 MG TABLET PO (08:01)
[2022-12-23] MEDS: Gabapentin 100 MG CAPSULE PO (08:01)
[2022-12-23] MEDS: OXcarbazepine 300 MG TABLET PO (08:01)
[2022-12-23] MEDS: metFORMIN HCl ER 500 MG TAB.ER.24H 1000 MG PO (08:01)
[2022-12-23] MEDS: Famotidine 20 MG TABLET PO (08:02)
[2022-12-23] MEDS: Lurasidone HCl 20 MG TABLET 60 MG PO (08:02)
[2022-12-23] MEDS: Apixaban 5 MG TABLET PO (08:02)
--- NOTE | 2022-12-23 10:21 | MHC.CM.PN ---
PER MD ROUNDS, PT WILL DC HOME TODAY WITH RESUMPTION OF HER [employer] PT WILL ARRANGE HER OWN TRANSPORTATION
[2022-12-23 11:22] LABS: Glucose, Whole Blood 220 mg/dL (60-115)
--- NOTE | 2022-12-23 11:27 | PM.DS ---
DS: Providers Provider Date of Service: 12/23/22 Date of admission: 12/21/22 18:34 Primary care physician: Megan Cummings MD DS: Diagnosis Discharge Diagnosis (1) Intractable abdominal pain: Status: Acute (2) Acute respiratory failure with hypoxia: Status: Acute (3) Acute asthma exacerbation: Status: Acute (4) Hyperglycemia due to type 2 diabetes mellitus: Status: Acute DS: Summary Hospital Course Hospital Course: from initial hpi: 51-year-old female with a past medical history of hypertension, hyperlipidemia, diabetes, asthma with chronic hypoxemic respiratory failure on 2 L supplemental O2 at baseline, history of acute respiratory failure secondary to asthma exacerbation requiring intubation, complicated by cardiac arrest x2, subsequently had tracheostomy, has trach collar; history of necrotizing pancreatitis status post surgery; nephrolithiasis; history of ESBL UTI; anxiety, depression, bipolar disorder, takotsubo cardiomyopathy, insulin-dependent type 2 diabetes, and history of PE anticoagulated with Eliquis?presented to the ED earlier today for evaluation of upper respiratory symptoms ongoing for 1 day. She was admitted to our service 2 months ago for pneumonia and completed treatment as advised but states that she never felt like her symptoms fully resolved and has continued with pleuritic chest pain and back pain. This morning she felt like her oxygen was low did not check this and has had increasing shortness of breath with productive cough with green/brown sputum production. She is reporting 8/10 pleuritic chest pain. There is also a rhinorrhea. She is also endorsing abdominal pain when taking a deep breath. Denies any fevers, chills, sore throat, nasal congestion, headaches, nausea, vomiting, diarrhea, lightheadedness, palpitations, or chest pressure. She has been using her nebulizer frequently without any improvement in symptoms. She tells me she does not typically suction her trach as she is typically able to expectorate without difficulty. In the ED, initially tachycardic to 110 and hypoxic in the 80s placed on 4 L supplemental O2 maintaining oximetry 88-92%. She is afebrile. There is a leukocytosis of 12.1. Renal function normal, electrolyte levels normal except for sodium 133, chloride 94. Glucose on arrival 439 IVF and 9 units insulin. Urinalysis unremarkable except for significant glucose. Negative for COVID-19, influenza. CXR negative. CT abd pelvis negative for acute intrabdominal abnormality. CT Chest with patchy of round ground-glass opacities possibly representing pneumonitis or pneumonia. Denser atelectasis/pneumonia and bronchial wall thickening at the lung bases right greater than left. In the ED, received IV insulin as above, 125 mg IV methylprednisolone, 1 g ceftriaxone, albuterol neb, and IV morphine. She was also suctioned by RT. hospital course: Patient was admitted for acute on chronic hypoxic respiratory failure secondary to moderate persistent asthma with acute decompensation and atypical pneumonia due to rhino virus with possible superimposed bacterial pneumonia. Patient was treated with ceftriaxone azithromycin will complete 5 more days of azithromycin. She was given IV steroids and will complete 5 more days of prednisone. She was given bronchodilators. Her O2 returned to baseline and shortness of breath significantly improved. For diabetes with hyperglycemia she was treated with insulin. For hyperlipidemia is continue on statin. For mood disorder was continue on home meds. For history of PE was continued on Eliquis. Morbid obesity weight loss is recommended. Patient is feeling better will be discharged home. Time Spent with Patient Time attestation: Total time managing care of this patient today ____ minutes. Discharge coordination time: Greater than 30 minutes Quality: Safe Use of Opioids Does Pt have an Active Cancer Diagnosis on the Problem List?: No Quality: Stroke Does the patient have a stroke diagnosis?: No Physical Exam Vital Signs: Vital Signs: Last Vital Signs Temp 98.1 F 12/23/22 07:36 Pulse 62 12/23/22 07:36 Resp 19 12/23/22 07:36 BP 105/56 L 12/23/22 07:36 Pulse Ox 95 12/23/22 07:36 O2 Del Method Nasal Cannula 12/23/22 07:36 O2 Flow Rate 3.0 12/23/22 07:36 BMI result Body Mass Index 36.7 Const: Other: Constitutional : Awake, interactive, not in distress Neck : Normal inspection, Supple Cardiovascular : RRR, no JVP, no lower extremity edema Respiratory : decreased bilateral air entry, expiratory wheezes Gastrointestinal: soft, lax, Normal bowel sounds, Non tender Skin : Warm, Dry Neurological : Alert & oriented x3, No focal deficit DS: Data Data Completed and Pending Completed studies during hospitalization [Text1]: Procedures Dilation of Left Ureter with Intraluminal Device, Via Natural or Artificial Opening Endoscopic (06/11/21) Fluoroscopy of Left Kidney, Ureter and Bladder (06/11/21) Labs on day of discharge: Laboratory Results - last 24 hr 12/22/22 12/22/22 12/22/22 11:25 16:31 19:54 POC Glucose 508 H* 260 H 183 H 12/23/22 12/23/22 07:23 11:17 POC Glucose 206 H 220 H Preliminary micro results at discharge 12/21/22 17:38 Blood Culture - Preliminary Blood - Venous No growth after 24 hours. 12/21/22 17:37 Blood Culture - Preliminary Blood - Venous No growth after 24 hours. Discharge Plan Discharge Anticipated Discharge Date/Time: 12/23/22 11:18 Patient Disposition: Home, Self-Care Discharge Diagnosis: pna, rhinovirus Referrals: Megan Mosqueda MD [Primary Care Provider] - 1 Week Discharge Medications: New azithromycin 500 mg tablet 500 mg PO DAILY 5 Days Qty: 5 0RF codeine-guaifenesin 10-100 mg/5 mL Liquid 10 ml PO Q4H PRN (Reason: Cough) Qty: 473 0RF prednisone 20 mg tablet 40 mg PO DAILY Qty: 10 0RF Continued tizanidine 4 mg tablet 1 tab PO DAILY PRN (Reason: muscle spasm) albuterol sulfate [Ventolin HFA] 90 mcg/actuation HFA aerosol inhaler 2 puff inhalation QID PRN (Reason: Shortness Of Breath) diphenhydramine HCl [Benadryl] 25 mg Capsule 25 mg PO Q6H PRN (Reason: POST NASAL DRIP) albuterol sulfate 2.5 mg /3 mL (0.083 %) solution for nebulization 1 vial inhalation Q4H PRN (Reason: wheezing) atorvastatin 10 mg tablet 1 tab PO DAILY clonazepam 1 mg tablet 1 tab PO BID oxcarbazepine 300 mg tablet 1 tab PO BID famotidine 20 mg tablet 1 tab PO BID promethazine 25 mg tablet 1 tab PO DAILY PRN (Reason: nausea) fluticasone propionate 50 mcg/actuation spray,suspension 1 spray intranasal DAILY glipizide 5 mg tablet 1 tab PO BID escitalopram oxalate 20 mg tablet 1 tab PO BEDTIME lurasidone [Latuda] 60 mg tablet 1 tab PO DAILY Eliquis 5 mg tablet 5 mg PO BID Qty: 60 0RF insulin glargine [Lantus Solostar U-100 Insulin] 100 unit/mL (3 mL) insulin pen 10 unit subcut QAM Qty: 15 0RF trazodone 150 mg tablet 150 mg PO BEDTIME gabapentin 100 mg capsule 100 mg PO TID metformin 500 mg tablet extended release 24 hr 1,000 mg PO BID insulin lispro [Humalog KwikPen Insulin] 100 unit/mL insulin pen 1 sliding scale dose subcut TIDAC Protocol: Insulin Correction Scale Less than or equal to 110 ---- Give (units): 0 111 to 150 Give (units): 0 151 to 200 Give (units): 2 201 to 250 Give (units): 4 251 to 300 Give (units): 6 301 to 350 Give (units): 8 Greater than 350 Give (units): 10 Call MD if Blood Glucose > : 350 Rx Instructions: Administer 3 times day before meals after checking glucose: 0 units if <150 2 units if 150-199 4 units if 200-249 6 units if 250-299 8 units if 300-349 10 units if 350-399 Call PCP if >400 Discharge Orders: Discharge Order (Routine); Ordered 12/23/22 Ordered By: Ace Cuevas Diet: Advance to usual diet Activity on Discharge: As tolerated Stand Alone Forms: Patient Portal Discharge page Care Plan Goals: recovery Health Concerns: pna Plan of Treatment: 5 more days azitrho and prednisone Assessment: see above Discharge Date/Time: 12/23/22 13:04
--- NOTE | 2022-12-23 13:13 | MHC.CM.PN ---
PT WILL DC HOME TODAY WITH RESUMPTION OF [employer] PT DECLINES [facility] PT WILL ARRANGE HER OWN TRANSPORTATION
== END 2022-12-23 13:04 | disposition home or self-care (01) | DRG 139 ==
LOC: HO.ED 17:55 → HO.EDOVER 18:45 → HO.S3 23:54
PROVIDERS: Student in an Organized Health Care Education/Training Program; Admitting Provider Physician Assistant; Emergency Provider Emergency Medicine; PCP Internal Medicine; Visit Provider Internal Medicine
DX: J12.89 Other viral pneumonia (principal); Z86.74 Personal history of sudden cardiac arrest; J45.41 Moderate persistent asthma with (acute) exacerbation; J96.11 Chronic respiratory failure with hypoxia; B97.89 Other viral agents as the cause of diseases classified elsewhere; E11.65 Type 2 diabetes mellitus with hyperglycemia; Z93.0 Tracheostomy status; E78.5 Hyperlipidemia, unspecified; J98.11 Atelectasis; Z20.822 Contact with and (suspected) exposure to COVID-19; E66.01 Morbid (severe) obesity due to excess calories; J15.9 Unspecified bacterial pneumonia; Z23 Encounter for immunization; Z79.4 Long term (current) use of insulin; Z68.36 Body mass index [BMI] 36.0-36.9, adult; Z86.711 Personal history of pulmonary embolism; Z79.01 Long term (current) use of anticoagulants; Z79.51 Long term (current) use of inhaled steroids; Z79.84 Long term (current) use of oral hypoglycemic drugs; Z79.899 Other long term (current) drug therapy
CPT/HCPCS: 36415; 71045; 71250; 74176; 80048; 80053; 81001; 82803; 82947; 83605; 83690; 84484; 85025; 87040; 87502; 87633; 87635; 90686; 93005; 94640; 99285; J0456; J0696; J1170; J2270; J2920; J2930

== ENCOUNTER → 2022-12-21 18:34 | Outpatient (BNV) | payer OTHER, SELFPAY | PROVIDERS: Admitting Provider Physician Assistant; Emergency Provider Emergency Medicine; PCP Internal Medicine; Visit Provider Physician Assistant | DX: R10.9 Unspecified abdominal pain (principal); J96.01 Acute respiratory failure with hypoxia; J45.901 Unspecified asthma with (acute) exacerbation; E11.65 Type 2 diabetes mellitus with hyperglycemia | CPT/HCPCS: 99223; 99233; 99239 ==

== ENCOUNTER 2023-01-28 21:45 | Emergency (ER) | payer OTHER, SELFPAY ==
--- NOTE | 2023-01-28 | ECG_ITS ---
Test Reason : CHEST TIGHTNESS/SOB Blood Pressure : / mmHG Vent. Rate : 091 BPM Atrial Rate : 091 BPM P-R Int : 168 ms QRS Dur : 082 ms QT Int : 362 ms P-R-T Axes : 029 -13 038 degrees QTc Int : 445 ms Normal sinus rhythm Low voltage QRS Left axis deviation Abnormal ECG When compared with ECG of 21-DEC-2022 10:01, No significant change was found Referred By: Generic ED Physician Electronically Signed By:KENDAL PATRICK MD
--- NOTE | ~2023-01-28 | XR_ITS ---
EXAMINATION: XR CHEST CLINICAL INFORMATION: Cough COMPARISON: 12/21/2022 TECHNIQUE: Frontal view of the chest was obtained. FINDINGS: Tracheostomy tube is in place. Previously seen patchy groundglass opacities in both lungs are improved as compared to prior, though residual opacities are suspected in the upper lobes and bases. Mild right basilar atelectasis with slight elevation of the right hemidiaphragm. No new airspace consolidation. No pneumothorax or pleural effusion. Cardiac and meniscal contours are normal. 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 No acute osseous findings. XR/XR chest 1V IMPRESSION: Patchy airspace opacities are improved as compared, though not completely resolved. No new airspace consolidation or pleural effusion.
[2023-01-28 21:47] VITALS: BP 115/72; PULSE 98; RESP 17; TEMP 37.2; O2SAT 92; BMI 37.8
--- NOTE | 2023-01-28 22:03 | MHC.EDTECH ---
Patient brought from triage,EKG taken and signed by provider.Labs,Sars/Flu/RSV obtained and sent to lab. Patient brought to ED room 17.
[2023-01-28 22:10] LABS: MANUAL DIFF FLAG NO
[2023-01-28 22:16] LABS: Basophils Absolute Auto 0.1 X10*3/uL (0.0-0.2); Basophils Percent Auto 0.5 % (0-2); Eosinophils Absolute Auto 1.1 X10*3/uL (0.0-0.4); Eosinophils Percent Auto 11.5 % (0-4); Hemoglobin 11.6 g/dl (12.0-16.0); Imm Gran Abs Auto 0.02 X10*3/uL (0.00-0.03); Imm Gran Pct Auto 0.2 % (0.0-0.4); Lymphocytes Absolute Auto 1.5 X10*3/uL (1.2-4.9); Lymphocytes Percent Auto 16.1 % (20-40); Mean Corpuscular HGB Conc 31.4 g/dl (31.0-35.0); Mean Platelet Volume 9.6 fL (9.4-12.3); Monocytes Absolute Auto 0.5 X10*3/uL (0.1-1.2); Monocytes Percent Auto 5.7 % (2-11); Neutrophils Absolute Auto 6.2 x10*3/uL (2.0-8.3); Platelet Count 338 X10*3/uL (160-400); Red Blood Count 4.46 X10*6/uL (4.20-5.50); Red Cell Distribution Width 14.3 % (11.0-16.0); White Blood Count 9.3 X10*3/uL (4.8-10.8)
[2023-01-28 22:26] VITALS: PULSE 91; O2SAT 91
[2023-01-28 22:28] VITALS: RESP 24; TEMP 37.4; O2SAT 97
--- NOTE | 2023-01-28 22:28 | ED_ITS ---
HPI - URI/Sore Throat General Chief Complaint: Upper Respiratory Symptoms Stated Complaint: shortness of breath Time Seen by Provider: 01/28/23 22:27 Source: patient Mode of arrival: ambulatory Limitations: no limitations History of Present Illness HPI Narrative: Patient history of asthma status post tracheostomy for tracheomalacia with frequent lung infections infections been coughing for last 3 days with thicker yellow secretions from the tracheostomy no fever but does have chills high bilateral rib pain because of coughing been using oxygen 4LPM lately which she uses as needed taking in deep breath makes her cough Related Data Home Medications Medication Instructions Recorded Confirmed albuterol sulfate 2.5 mg/3 mL 1 vial inhalation Q4H PRN wheezing 10/28/21 12/21/22 (0.083 %) solution for nebulization atorvastatin 10 mg tablet 1 tab PO DAILY 10/28/21 12/21/22 clonazepam 1 mg tablet 1 tab PO BID Anxiety 10/28/21 12/21/22 escitalopram oxalate 20 mg tablet 1 tab PO BEDTIME 10/28/21 12/21/22 famotidine 20 mg tablet 1 tab PO BID 10/28/21 12/21/22 fluticasone propionate 50 1 spray intranasal DAILY 10/28/21 12/21/22 mcg/actuation nasal spray,suspension glipizide 5 mg tablet 1 tab PO BID 10/28/21 12/21/22 lurasidone 60 mg tablet (Latuda) 1 tab PO DAILY 10/28/21 12/21/22 oxcarbazepine 300 mg tablet 1 tab PO BID 10/28/21 12/21/22 promethazine 25 mg tablet 1 tab PO DAILY PRN nausea 10/28/21 12/21/22 albuterol sulfate 90 mcg/actuation 2 puff inhalation QID PRN 01/24/22 12/21/22 aerosol inhaler (Ventolin HFA) Shortness Of Breath diphenhydramine HCl 25 mg capsule 25 mg PO Q6H PRN POST NASAL DRIP 01/24/22 12/21/22 (Benadryl) tizanidine 4 mg tablet 1 tab PO DAILY PRN muscle spasm 01/24/22 12/21/22 gabapentin 100 mg capsule 100 mg PO TID 10/16/22 12/21/22 metformin 500 mg tablet,extended 1,000 mg PO BID 10/16/22 12/21/22 release 24 hr trazodone 150 mg tablet 150 mg PO BEDTIME Insomnia 10/16/22 12/21/22 insulin lispro 100 unit/mL 1 sliding scale dose subcut TIDAC 12/21/22 12/21/22 subcutaneous pen (Humalog KwikPen (U-100) Insulin) Previous Rx's Medication Instructions Recorded apixaban 5 mg tablet (Eliquis) 5 mg PO BID #60 tabs 03/22/22 insulin glargine 100 unit/mL (3 10 unit (0.1 mL) subcut QAM #15 mL 04/07/22 mL) subcutaneous pen (Lantus Solostar U-100 Insulin) azithromycin 500 mg tablet 500 mg PO DAILY 5 days #5 tabs 12/23/22 codeine 10 mg-guaifenesin 100 mg/5 10 ml PO Q4H PRN Cough #473 mL 12/23/22 mL oral liquid prednisone 20 mg tablet 40 mg (2 x 20 mg) PO DAILY #10 tabs 12/23/22 benzonatate 200 mg capsule 200 mg PO TID PRN cough #30 caps 01/28/23 cefuroxime axetil 500 mg tablet 500 mg PO BID 7 days #14 tabs 01/28/23 doxycycline hyclate 100 mg tablet 100 mg PO BID #20 tabs 01/28/23 Allergies Allergy/AdvReac Type Severity Reaction Status Date / Time pantoprazole Allergy Unknown Verified 10/16/22 10:22 Review of Systems 2 Review of Systems: Yes all other systems are reviewed and are negative PMFSH Past Medical History Medical History History of cardiac arrest Wound drainage Takotsubo cardiomyopathy Kidney stones UTI (urinary tract infection) Bipolar 1 disorder Diabetes Asthma Substance abuse Surgical History S/P ureteral stent placement H/O exploratory laparotomy S/P cholecystectomy Family History Family History Mother No pertinent family history Father No pertinent family history Social History Social History Household Members: Spouse Household Members Other:: 1 Housing: Apartment Do you presently have visiting nurse or other home services: Yes (wire technician - 5 days/week) Alcohol intake: never Patient Tobacco Use Status: Never used Tobacco Smoked in Last 30 Days: No Second Hand Smoke Exposure: Yes Use of substances other than those prescribed or required for medical reasons: No Advance Directives: Yes Advance Directives on File: Yes Advance Directives Date on File: 01/25/22 service: No Current occupational status: disabled Physical Exam 2 Vital Signs: Vital Signs: Last Vital Signs Temp 99.3 F 01/28/23 22:28 Pulse 97 01/28/23 23:28 Resp 18 01/28/23 23:28 BP 115/72 01/28/23 21:47 Pulse Ox 97 01/28/23 22:28 O2 Del Method Nasal Cannula 01/28/23 22:28 O2 Flow Rate 2 01/28/23 22:28 BMI result Body Mass Index 37.8 Appearance: Alert. Oriented X3. No acute distress. Eyes: No pallor or icterus ENT: Pharynx normal. Oral Mucosa moist tracheostomy in place Neck: Normal inspection. Neck supple. CVS: Normal heart rate and rhythm. Pulses normal. Respiratory: No respiratory distress. Equal air entry bilateral, bilateral prolonged expiration with wheezing and frequent cough Abdomen: Soft and nontender. Bowel sounds are present, no mass palpable, no CVA tenderness Skin: Skin warm and dry. Normal skin color. Normal skin turgor. Extremities: No lower extremity edema. No calf tenderness Neuro: Oriented X 3. Medications Administered Discontinued Medications Generic Name Dose Route Start Last Admin Trade Name Freq PRN Reason Stop Dose Admin Albuterol Sulfate 5 mg/ 7.5 mg 01/28/23 23:22 01/28/23 23:26 Albuterol Sulfate 2.5 mg INHALE 01/28/23 23:23 7.5 mg ONCE ONE Administration Cefuroxime Axetil 500 mg 01/28/23 23:06 01/28/23 23:49 Cefuroxime Axetil 500 Mg Tablet PO 01/28/23 23:07 500 mg ONCE ONE Administration Doxycycline Monohydrate 100 mg 01/28/23 23:06 01/28/23 23:49 Doxycycline Monohydrate 100 Mg Capsule PO 01/28/23 23:07 100 mg ONCE ONE Administration Guaifenesin/Codeine Phosphate 10 ml 01/28/23 22:37 01/28/23 23:04 Guaifen/Codeine Sf 200/20/10ml 10 Ml Liquid PO 01/28/23 22:38 10 ml ONCE ONE Administration Insulin Human Lispro 10 unit 01/28/23 23:08 01/28/23 23:48 Insulin Lispro 100 Unit/Ml 3 Ml Vial SUBCUT 01/28/23 23:09 10 unit ONCE ONE Administration Morphine Sulfate 15 mg 01/28/23 23:05 01/28/23 23:49 Morphine Sulfate Immed Release 15 Mg Tablet PO 01/28/23 23:06 15 mg ONCE ONE Administration Medical Decision Making Medical Decision Making [facility] Narrative: Patient with chronic bronchitis chest x-ray negative for any infiltrate labs are stable patient asking for for pain medication even after 15 mg of morphine will discharge patient on doxycycline and Ceftin Differential Diagnosis Differential Diagnoses: The differential diagnosis associated with the presentation includes Bronchitis/pneumonia/viral pneumonitis Admission/Observation Consideration of admission/observation: Escalation of care including admission/observation considered Lab Data [facility] Lab Attestation statement: I reviewed the patient's lab results. 01/28/23 22:02 01/28/23 22:02 Labs: Lab Results 01/28/23 01/28/23 Range/Units 22:02 23:47 WBC 9.3 (4.8-10.8) X10*3/uL RBC 4.46 (4.20-5.50) X10*6/uL Hgb 11.6 L (12.0-16.0) g/dl Hct 37.0 (37.0-47.0) % MCV 83.0 (80.0-98.0) fL MCH 26.0 L (27.0-33.0) pg MCHC 31.4 (31.0-35.0) g/dl RDW 14.3 (11.0-16.0) % Plt Count 338 (160-400) X10*3/uL MPV 9.6 (9.4-12.3) fL Immature Gran % (Auto) 0.2 (0.0-0.4) % Neut % (Auto) 66.0 (45-73) % Lymph % (Auto) 16.1 L (20-40) % [place] % (Auto) 5.7 (2-11) % Eos % (Auto) 11.5 H (0-4) % Baso % (Auto) 0.5 (0-2) % Lymph # (Auto) 1.5 (1.2-4.9) X10*3/uL [place] # (Auto) 0.5 (0.1-1.2) X10*3/uL Eos # (Auto) 1.1 H (0.0-0.4) X10*3/uL Baso # (Auto) 0.1 (0.0-0.2) X10*3/uL Abs Immat Gran (auto) 0.02 (0.00-0.03) X10*3/uL Absolute Neuts (auto) 6.2 (2.0-8.3) x10*3/uL Absolute Nucleated RBC 0.000 (0.0-0.012) X10*3/uL Nucleated RBC % (auto) 0.0 (0.0-0.2) /100WBC Sodium 136 (135-145) mmol/L Potassium 4.9 (3.3-5.1) mmol/L Chloride 98 (96-108) mmol/L Carbon Dioxide 31 H (22-29) mmol/L Anion Gap 12 (12-20) BUN 13 (9-16) mg/dL Creatinine 0.99 (0.5-1.4) mg/dL Estim Creat Clear Calc 72.7 Estimated GFR 59 POC Glucose 337 H (60-115) mg/dL Random Glucose 362 H* (60-115) mg/dL Calcium 9.0 (8.4-10.2) mg/dL Total Bilirubin 0.4 (0.0-1.0) mg/dL Direct Bilirubin 0.2 (0.0-0.5) mg/dL AST 19 (5-31) U/L ALT 29 (0-31) U/L Alkaline Phosphatase 185 H (39-117) U/L Troponin I High Sens < 2.7 (<3.5-17.0) ng/L Total Protein 6.7 (6.5-8.0) g/dL Albumin 3.6 (3.5-5.0) g/dL Lipase 7 L (8-78) U/L Influenza Type A (PCR) NEGATIVE (Negative) Influenza Type B (PCR) NEGATIVE (Negative) RSV RNA Qual (PCR) NEGATIVE (Negative) SARS-CoV-2 RNA (RT-PCR) NEGATIVE (Negative) Independent Interpretation I performed an independent interpretation of an: Plain X-Ray Radiology Impression Discussion of test interpretation with radiology: I have reviewed the radiologist's reading. Discharge Plan Discharge Clinical Impression: Bronchitis Patient Disposition: Home, Self-Care Instructions: Chronic Bronchitis (ED) Additional Instructions: Use your nebulizer treatment as advised Antibiotic as prescribed Cough drops as prescribed Prescriptions: New benzonatate 200 mg capsule 200 mg PO TID PRN (Reason: cough) Qty: 30 0RF cefuroxime axetil 500 mg tablet 500 mg PO BID 7 Days Qty: 14 0RF doxycycline hyclate 100 mg tablet 100 mg PO BID Qty: 20 0RF No Action tizanidine 4 mg tablet 1 tab PO DAILY PRN (Reason: muscle spasm) albuterol sulfate [Ventolin HFA] 90 mcg/actuation HFA aerosol inhaler 2 puff inhalation QID PRN (Reason: Shortness Of Breath) diphenhydramine HCl [Benadryl] 25 mg Capsule 25 mg PO Q6H PRN (Reason: POST NASAL DRIP) albuterol sulfate 2.5 mg /3 mL (0.083 %) solution for nebulization 1 vial inhalation Q4H PRN (Reason: wheezing) atorvastatin 10 mg tablet 1 tab PO DAILY clonazepam 1 mg tablet 1 tab PO BID oxcarbazepine 300 mg tablet 1 tab PO BID famotidine 20 mg tablet 1 tab PO BID promethazine 25 mg tablet 1 tab PO DAILY PRN (Reason: nausea) fluticasone propionate 50 mcg/actuation spray,suspension 1 spray intranasal DAILY glipizide 5 mg tablet 1 tab PO BID escitalopram oxalate 20 mg tablet 1 tab PO BEDTIME lurasidone [Latuda] 60 mg tablet 1 tab PO DAILY Eliquis 5 mg tablet 5 mg PO BID Qty: 60 0RF insulin glargine [Lantus Solostar U-100 Insulin] 100 unit/mL (3 mL) insulin pen 10 unit subcut QAM Qty: 15 0RF trazodone 150 mg tablet 150 mg PO BEDTIME gabapentin 100 mg capsule 100 mg PO TID metformin 500 mg tablet extended release 24 hr 1,000 mg PO BID insulin lispro [Humalog KwikPen Insulin] 100 unit/mL insulin pen 1 sliding scale dose subcut TIDAC Protocol: Insulin Correction Scale Less than or equal to 110 ---- Give (units): 0 111 to 150 Give (units): 0 151 to 200 Give (units): 2 201 to 250 Give (units): 4 251 to 300 Give (units): 6 301 to 350 Give (units): 8 Greater than 350 Give (units): 10 Call MD if Blood Glucose > : 350 Rx Instructions: Administer 3 times day before meals after checking glucose: 0 units if <150 2 units if 150-199 4 units if 200-249 6 units if 250-299 8 units if 300-349 10 units if 350-399 Call PCP if >400 azithromycin 500 mg tablet 500 mg PO DAILY 5 Days Qty: 5 0RF codeine-guaifenesin 10-100 mg/5 mL Liquid 10 ml PO Q4H PRN (Reason: Cough) Qty: 473 0RF prednisone 20 mg tablet 40 mg PO DAILY Qty: 10 0RF Interventions: ED Discharge Assessment Last Done: 01/29/23 01:12 Discharge Date/Time: 01/29/23 01:13
[2023-01-28 22:33] LABS: Troponin-I High Sensitivity < 2.7 ng/L (<3.5-17.0)
[2023-01-28 22:34] LABS: Alanine Aminotransferase 29 U/L (0-31); Albumin Level 3.6 g/dL (3.5-5.0); Alkaline Phosphatase 185 U/L (39-117); Anion Gap 12 (12-20); Aspartate Amino Transferase 19 U/L (5-31); Bilirubin Direct 0.2 mg/dL (0.0-0.5); Bilirubin Total 0.4 mg/dL (0.0-1.0); Blood Urea Nitrogen 13 mg/dL (9-16); Carbon Dioxide 31 mmol/L (22-29); Chloride 98 mmol/L (96-108); Creatinine Clr Calc Pharmacy 72.7; Estimated Glomerular Filt Rate 59; Glucose Random 362 mg/dL (60-115); Lipase 7 U/L (8-78); Potassium 4.9 mmol/L (3.3-5.1); Sodium 136 mmol/L (135-145); Total Protein 6.7 g/dL (6.5-8.0)
[2023-01-28 22:47] LABS: Influenza A PCR NEGATIVE (Negative); Influenza B PCR NEGATIVE (Negative); Resp Syncy Virus RNA Qual PCR NEGATIVE (Negative); SARS COV2 PCR INHOUSE NEGATIVE (Negative)
[2023-01-28] MEDS: guaiFEN/Codeine SF 200/20/10ML 10 ML LIQUID PO (23:04)
[2023-01-28] MEDS: Albuterol Sulfate 5 MG, Albuterol Sulfate (0.083%) 2.5 MG 7.5 MG INHALE (23:26)
[2023-01-28 23:28] VITALS: PULSE 97; RESP 18; O2SAT 97
[2023-01-28] MEDS: Insulin Lispro 100 UNIT/ML 3 ML VIAL 10 UNIT SUBCUT (23:48)
[2023-01-28] MEDS: Morphine Sulfate Immed Release 15 MG TABLET PO (23:49)
[2023-01-28] MEDS: cefuroxime axetiL 500 MG TABLET PO (23:49)
[2023-01-28] MEDS: Doxycycline Monohydrate 100 MG CAPSULE PO (23:49)
[2023-01-28 23:57] LABS: Glucose, Whole Blood 337 mg/dL (60-115)
== END 2023-01-29 01:13 | disposition home or self-care (01) ==
PROVIDERS: Emergency Provider Internal Medicine; PCP Internal Medicine
DX: J40 Bronchitis, not specified as acute or chronic (principal); R06.02 Shortness of breath; R07.81 Pleurodynia; R05.9 Cough, unspecified; Z20.822 Contact with and (suspected) exposure to COVID-19; Z20.828 Contact with and (suspected) exposure to other viral communicable diseases; Z79.899 Other long term (current) drug therapy
CPT/HCPCS: 0241U; 71045; 80048; 80076; 82947; 83690; 84484; 85025; 93005; 94640; 99284; 99285

== ENCOUNTER 2023-02-01 23:02 | Inpatient (IN) | payer OTHER, SELFPAY ==
--- NOTE | ~2023-02-01 | XR_ITS ---
EXAMINATION: XR CHEST CLINICAL INFORMATION: Chest pain COMPARISON: 01/28/2023 TECHNIQUE: Frontal view of the chest was obtained. FINDINGS: Heart size within normal limits. A small right pleural effusion is again seen. Some chronic interstitial opacities are again noted, right greater than left. Tracheostomy is in good position midline. XR/XR chest 1V IMPRESSION: No acute intrathoracic disease. Small right pleural effusion.
[2023-02-01 23:15] VITALS: BP 118/70; PULSE 110; O2SAT 98
[2023-02-01 23:56] VITALS: BP 100/79; PULSE 112; RESP 18; TEMP 36.7; O2SAT 98; BMI 37.5
--- NOTE | 2023-02-01 23:57 | ECG_ITS ---
Test Reason : OVERDOSE Blood Pressure : / mmHG Vent. Rate : 105 BPM Atrial Rate : 105 BPM P-R Int : 190 ms QRS Dur : 084 ms QT Int : 350 ms P-R-T Axes : 046 -11 036 degrees QTc Int : 462 ms Sinus tachycardia Left axis deviation Possible Anterolateral infarct (cited on or before 02-FEB-2023) Abnormal ECG When compared with ECG of 28-JAN-2023 21:53, No significant change was found Referred By: Gita Monson Electronically Signed By:KENDAL PATRICK MD
--- NOTE | 2023-02-02 00:01 | ED.OVERDOSE ---
HPI - Overdose General Chief Complaint: Overdose Stated Complaint: ams x1.5 hrs, lethargic,pt has trach, gave narcan Time Seen by Provider: 02/01/23 23:28 History of Present Illness HPI Narrative: Patient is a 52-year-old female with a history of respiratory failure chronically trach history of asthma history of pancreatitis history of pneumonia. Patient took some Percocet was noted to be confused not quite right about how a half. On EMS arrival at a dose of Narcan was given with woke up patient. Patient claims she feels much better. Unsure how many Percocet she had actually took. Denies any fever chills. Denies any diaphoresis. Positive history of UTI. Positive history of ESBL in the past. Related Data Home Medications Medication Instructions Recorded Confirmed albuterol sulfate 2.5 mg/3 mL 1 vial inhalation Q4H PRN wheezing 10/28/21 12/21/22 (0.083 %) solution for nebulization atorvastatin 10 mg tablet 1 tab PO DAILY 10/28/21 12/21/22 clonazepam 1 mg tablet 1 tab PO BID Anxiety 10/28/21 12/21/22 escitalopram oxalate 20 mg tablet 1 tab PO BEDTIME 10/28/21 12/21/22 famotidine 20 mg tablet 1 tab PO BID 10/28/21 12/21/22 fluticasone propionate 50 1 spray intranasal DAILY 10/28/21 12/21/22 mcg/actuation nasal spray,suspension glipizide 5 mg tablet 1 tab PO BID 10/28/21 12/21/22 lurasidone 60 mg tablet (Latuda) 1 tab PO DAILY 10/28/21 12/21/22 oxcarbazepine 300 mg tablet 1 tab PO BID 10/28/21 12/21/22 promethazine 25 mg tablet 1 tab PO DAILY PRN nausea 10/28/21 12/21/22 albuterol sulfate 90 mcg/actuation 2 puff inhalation QID PRN 01/24/22 12/21/22 aerosol inhaler (Ventolin HFA) Shortness Of Breath diphenhydramine HCl 25 mg capsule 25 mg PO Q6H PRN POST NASAL DRIP 01/24/22 12/21/22 (Benadryl) tizanidine 4 mg tablet 1 tab PO DAILY PRN muscle spasm 01/24/22 12/21/22 gabapentin 100 mg capsule 100 mg PO TID 10/16/22 12/21/22 metformin 500 mg tablet,extended 1,000 mg PO BID 10/16/22 12/21/22 release 24 hr trazodone 150 mg tablet 150 mg PO BEDTIME Insomnia 10/16/22 12/21/22 insulin lispro 100 unit/mL 1 sliding scale dose subcut TIDAC 12/21/22 12/21/22 subcutaneous pen (Humalog KwikPen (U-100) Insulin) Previous Rx's Medication Instructions Recorded apixaban 5 mg tablet (Eliquis) 5 mg PO BID #60 tabs 03/22/22 insulin glargine 100 unit/mL (3 10 unit (0.1 mL) subcut QAM #15 mL 04/07/22 mL) subcutaneous pen (Lantus Solostar U-100 Insulin) azithromycin 500 mg tablet 500 mg PO DAILY 5 days #5 tabs 12/23/22 codeine 10 mg-guaifenesin 100 mg/5 10 ml PO Q4H PRN Cough #473 mL 12/23/22 mL oral liquid prednisone 20 mg tablet 40 mg (2 x 20 mg) PO DAILY #10 tabs 12/23/22 benzonatate 200 mg capsule 200 mg PO TID PRN cough #30 caps 01/28/23 cefuroxime axetil 500 mg tablet 500 mg PO BID 7 days #14 tabs 01/28/23 doxycycline hyclate 100 mg tablet 100 mg PO BID #20 tabs 01/28/23 Allergies Allergy/AdvReac Type Severity Reaction Status Date / Time pantoprazole Allergy Unknown Verified 10/16/22 10:22 Review of Systems Review of Systems: Positive generalized malaise Yes all other systems are reviewed and are negative [facility] Past Medical History Medical History History of cardiac arrest Wound drainage Takotsubo cardiomyopathy Kidney stones UTI (urinary tract infection) Bipolar 1 disorder Diabetes Asthma Substance abuse Surgical History S/P ureteral stent placement H/O exploratory laparotomy S/P cholecystectomy Family History Family History Mother No pertinent family history Father No pertinent family history Social History Household Members: Spouse Household Members Other:: 1 Housing: Apartment Do you presently have visiting nurse or other home services: 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) Alcohol intake: never Patient Tobacco Use Status: Never used Tobacco Smoked in Last 30 Days: No Second Hand Smoke Exposure: Yes Use of substances other than those prescribed or required for medical reasons: No Advance Directives: Yes Advance Directives on File: Yes Advance Directives Date on File: 01/25/22 service: No Current occupational status: disabled Physical Exam Vital Signs: Vital Signs: Last Vital Signs Temp 98.1 F 02/02/23 00:03 Pulse 112 H 02/02/23 00:03 Resp 18 02/02/23 00:03 BP 100/79 02/02/23 00:03 Pulse Ox 98 02/02/23 00:03 O2 Del Method Room Air 02/02/23 00:03 BMI result Body Mass Index 37.5 Appearance: Alert. Oriented X3. No acute distress. Eyes: Pupils equal, round and reactive to light. ENT: Pharynx normal. Neck: Normal inspection. Neck supple. No lymph nodes noted. No crepitus CVS: Normal heart rate and rhythm. Pulses normal. Normal S1 and S2 Respiratory: No respiratory distress. Breath sounds normal. No Wheezing. No rales Abdomen: Soft and nontender. No rigidity. No distention. good BS x4 Skin: Skin warm and dry. Normal skin color. Normal skin turgor. Extremities: No lower extremity edema. Neurovascular intact to all extremities. No Lacerations. No Rash Neuro: Oriented X 3. No motor deficit. No sensory deficit. Moving all extermities. No slurred speech Medications Administered Discontinued Medications Generic Name Dose Route Start Last Admin Trade Name Freq PRN Reason Stop Dose Admin Ertapenem 1 gm/ Sodium 50 mls @ 100 mls/hr 02/02/23 01:36 02/02/23 02:32 Chloride IV 02/02/23 02:05 100 mls/hr ONCE ONE Administration Medical Decision Making Medical Decision Making MDM Narrative: Positive weakness general malaise. Patient has a history of ESBL history of diabetes history of respiratory failure. Patient's chest x-ray showed no focal infiltrate by my interpretation and review radiology's reading. Patient's O2 sat is normal. Feels weak and tired. A cath urine was obtained. It was grossly infected. Patient's previous culture review. She had Kabsella in her urine that was ESBL in the past. Ertapenem was started. Patient's case discussed with the hospitalist service. Aspirin Tylenol levels are actually negative. Differential Diagnosis Differential Diagnoses: The differential diagnosis associated with the presentation includes Overdose, pneumonia, UTI Admission/Observation Consideration of admission/observation: Escalation of care including admission/observation considered Will admit for further evaluation as patient has an ESBL infection Consult Healthcare Provider Management of the patient was discussed with: Hospitalist Lab Data MDM Lab Attestation statement: I reviewed the patient's lab results. 02/02/23 01:00 02/02/23 01:00 Labs: Lab Results 02/02/23 02/02/23 02/02/23 Range/Units 00:37 00:42 01:00 WBC 11.4 H (4.8-10.8) X10*3/uL RBC 4.30 (4.20-5.50) X10*6/uL Hgb 11.3 L (12.0-16.0) g/dl Hct 36.6 L (37.0-47.0) % MCV 85.1 (80.0-98.0) fL MCH 26.3 L (27.0-33.0) pg MCHC 30.9 L (31.0-35.0) g/dl RDW 14.5 (11.0-16.0) % Plt Count 296 (160-400) X10*3/uL MPV 9.9 (9.4-12.3) fL Immature Gran % (Auto) 0.4 (0.0-0.4) % Neut % (Auto) 87.0 H (45-73) % Lymph % (Auto) 5.1 L (20-40) % [place] % (Auto) 3.8 (2-11) % Eos % (Auto) 3.3 (0-4) % Baso % (Auto) 0.4 (0-2) % Lymph # (Auto) 0.6 L (1.2-4.9) X10*3/uL [place] # (Auto) 0.4 (0.1-1.2) X10*3/uL Eos # (Auto) 0.4 (0.0-0.4) X10*3/uL Baso # (Auto) 0.1 (0.0-0.2) X10*3/uL Abs Immat Gran (auto) 0.04 H (0.00-0.03) X10*3/uL Absolute Neuts (auto) 9.9 H (2.0-8.3) x10*3/uL Absolute Nucleated RBC 0.000 (0.0-0.012) X10*3/uL Nucleated RBC % (auto) 0.0 (0.0-0.2) /100WBC PT 15.4 H (11.1-13.3) SEC INR 1.3 H (0.9-1.1) VBG pH (7.32-7.43) VBG pCO2 mmHg VBG pO2 mmHg VBG HCO3 (22-26) mmol/L VBG O2 Saturation % VBG Base Excess mmol/L Sodium 137 (135-145) mmol/L Potassium 4.8 (3.3-5.1) mmol/L Chloride 96 (96-108) mmol/L Carbon Dioxide 32 H (22-29) mmol/L Anion Gap 14 (12-20) BUN 12 (9-16) mg/dL Creatinine 1.19 (0.5-1.4) mg/dL Estim Creat Clear Calc 60.3 Estimated GFR 47 Random Glucose 318 H (60-115) mg/dL Lactic Acid 1.7 (0.5-2.0) mmol/L Calcium 9.2 (8.4-10.2) mg/dL Total Bilirubin 0.6 (0.0-1.0) mg/dL Direct Bilirubin 0.2 (0.0-0.5) mg/dL AST 16 (5-31) U/L ALT 19 (0-31) U/L Alkaline Phosphatase 193 H (39-117) U/L Ammonia 17 (13-55) umol/L Troponin I High Sens < 2.7 (<3.5-17.0) ng/L Total Protein 7.2 (6.5-8.0) g/dL Albumin 3.7 (3.5-5.0) g/dL Lipase 6 L (8-78) U/L Urine Color Yellow Urine Appearance Clear Urine pH 5.5 (5.0-9.0) Ur Specific [place] 1.020 (1.005-1.025) Urine Protein Trace (Neg-Trace) mg/dL Urine Glucose (UA) 250 H (Negative) mg/dL Urine Ketones Negative (Negative) mg/dL Urine Blood Trace H (Negative) Urine Nitrite Positive H (Negative) Ur Leukocyte Esterase Trace H (Negative) Urine RBC 3-5 H (0-2) /HPF Urine WBC 11-20 H (0-5) /HPF Ur Squamous Epith Cells 0-2 (0-2) /HPF Urine Bacteria 4+ (None Seen) Hyaline Casts 3-5 (0-2) /LPF Salicylates < 5.0 L (15-30) mg/dL Urine Opiates Screen POSITIVE H (Not Detect) Urine Fentanyl Screen Not Detected (Not Detect) Acetaminophen < 3 (<30) mcg/mL Ur Barbiturates Screen Not Detected (Not Detect) Ur Phencyclidine Scrn Not Detected (Not Detect) Ur Amphetamines Screen Not Detected (Not Detect) U Benzodiazepines Scrn Not Detected (Not Detect) Urine Cocaine Screen Not Detected (Not Detect) U Marijuana (THC) Screen Not Detected (Not Detect) Ethyl Alcohol < 10 mg/dL Influenza Type A (PCR) NEGATIVE (Negative) Influenza Type B (PCR) NEGATIVE (Negative) RSV RNA Qual (PCR) NEGATIVE (Negative) SARS-CoV-2 RNA (RT-PCR) NEGATIVE (Negative) 02/02/23 Range/Units 01:08 WBC (4.8-10.8) X10*3/uL RBC (4.20-5.50) X10*6/uL Hgb (12.0-16.0) g/dl Hct (37.0-47.0) % MCV (80.0-98.0) fL MCH (27.0-33.0) pg MCHC (31.0-35.0) g/dl RDW (11.0-16.0) % Plt Count (160-400) X10*3/uL MPV (9.4-12.3) fL Immature Gran % (Auto) (0.0-0.4) % Neut % (Auto) (45-73) % Lymph % (Auto) (20-40) % [place] % (Auto) (2-11) % Eos % (Auto) (0-4) % Baso % (Auto) (0-2) % Lymph # (Auto) (1.2-4.9) X10*3/uL [place] # (Auto) (0.1-1.2) X10*3/uL Eos # (Auto) (0.0-0.4) X10*3/uL Baso # (Auto) (0.0-0.2) X10*3/uL Abs Immat Gran (auto) (0.00-0.03) X10*3/uL Absolute Neuts (auto) (2.0-8.3) x10*3/uL Absolute Nucleated RBC (0.0-0.012) X10*3/uL Nucleated RBC % (auto) (0.0-0.2) /100WBC PT (11.1-13.3) SEC INR (0.9-1.1) VBG pH 7.38 (7.32-7.43) VBG pCO2 67 mmHg VBG pO2 48 mmHg VBG HCO3 40 H (22-26) mmol/L VBG O2 Saturation 79.0 % VBG Base Excess 12.8 mmol/L Sodium (135-145) mmol/L Potassium (3.3-5.1) mmol/L Chloride (96-108) mmol/L Carbon Dioxide (22-29) mmol/L Anion Gap (12-20) BUN (9-16) mg/dL Creatinine (0.5-1.4) mg/dL Estim Creat Clear Calc Estimated GFR Random Glucose (60-115) mg/dL Lactic Acid (0.5-2.0) mmol/L Calcium (8.4-10.2) mg/dL Total Bilirubin (0.0-1.0) mg/dL Direct Bilirubin (0.0-0.5) mg/dL AST (5-31) U/L ALT (0-31) U/L Alkaline Phosphatase (39-117) U/L Ammonia (13-55) umol/L Troponin I High Sens (<3.5-17.0) ng/L Total Protein (6.5-8.0) g/dL Albumin (3.5-5.0) g/dL Lipase (8-78) U/L Urine Color Urine Appearance Urine pH (5.0-9.0) Ur Specific [place] (1.005-1.025) Urine Protein (Neg-Trace) mg/dL Urine Glucose (UA) (Negative) mg/dL Urine Ketones (Negative) mg/dL Urine Blood (Negative) Urine Nitrite (Negative) Ur Leukocyte Esterase (Negative) Urine RBC (0-2) /HPF Urine WBC (0-5) /HPF Ur Squamous Epith Cells (0-2) /HPF Urine Bacteria (None Seen) Hyaline Casts (0-2) /LPF Salicylates (15-30) mg/dL Urine Opiates Screen (Not Detect) Urine Fentanyl Screen (Not Detect) Acetaminophen (<30) mcg/mL Ur Barbiturates Screen (Not Detect) Ur Phencyclidine Scrn (Not Detect) Ur Amphetamines Screen (Not Detect) U Benzodiazepines Scrn (Not Detect) Urine Cocaine Screen (Not Detect) U Marijuana (THC) Screen (Not Detect) Ethyl Alcohol mg/dL Influenza Type A (PCR) (Negative) Influenza Type B (PCR) (Negative) RSV RNA Qual (PCR) (Negative) SARS-CoV-2 RNA (RT-PCR) (Negative) Independent Interpretation I performed an independent interpretation of an: Plain X-Ray (Chest x-ray negative) Radiology Impression Discussion of test interpretation with radiology: I have reviewed the radiologist's reading. External Record Review External record reviewed: Inpatient record Discharge Plan Discharge Clinical Impression: UTI (urinary tract infection) Patient Disposition: Admitted As Inpatient
[2023-02-02 00:03] VITALS: BP 100/79; PULSE 112; RESP 18; TEMP 36.7; O2SAT 98
--- NOTE | 2023-02-02 00:04 | PC.NURSE ---
Pt arousable to verbal stimuli. Pt reports she only took 2 percocets. Pt denies SI or attempting to hurt herself. Plan of care ongoing.
--- NOTE | 2023-02-02 00:05 | PC.NURSE ---
Xray with pt.
[2023-02-02 01:10] LABS: MANUAL DIFF FLAG NO
[2023-02-02 01:15] LABS: VBG Base Excess 12.8 mmol/L; VBG HCO3 40 mmol/L (22-26); VBG pCO2 67 mmHg; VBG pH 7.38 (7.32-7.43); VBG pO2 48 mmHg
[2023-02-02 01:15] LABS: Basophils Absolute Auto 0.1 X10*3/uL (0.0-0.2); Basophils Percent Auto 0.4 % (0-2); Eosinophils Absolute Auto 0.4 X10*3/uL (0.0-0.4); Eosinophils Percent Auto 3.3 % (0-4); Hematocrit 36.6 % (37.0-47.0); Hemoglobin 11.3 g/dl (12.0-16.0); Imm Gran Abs Auto 0.04 X10*3/uL (0.00-0.03); Imm Gran Pct Auto 0.4 % (0.0-0.4); Lymphocytes Absolute Auto 0.6 X10*3/uL (1.2-4.9); Lymphocytes Percent Auto 5.1 % (20-40); Mean Corpuscular HGB Conc 30.9 g/dl (31.0-35.0); Mean Corpuscular Hemoglobin 26.3 pg (27.0-33.0); Mean Corpuscular Volume 85.1 fL (80.0-98.0); Mean Platelet Volume 9.9 fL (9.4-12.3); Monocytes Absolute Auto 0.4 X10*3/uL (0.1-1.2); Monocytes Percent Auto 3.8 % (2-11); Neutrophils Absolute Auto 9.9 x10*3/uL (2.0-8.3); Platelet Count 296 X10*3/uL (160-400); Red Cell Distribution Width 14.5 % (11.0-16.0); White Blood Count 11.4 X10*3/uL (4.8-10.8)
[2023-02-02 01:17] LABS: Appearance Urine Clear; Color Urine Yellow; Glucose Urine UA 250 mg/dL (Negative); Leukocyte Esterase Urine Trace (Negative); Nitrite Urine Positive (Negative); PH 5.5 (5.0-9.0); UMIC TRIGGER UACC YES; Urine Blood Trace (Negative); Urine Ketones Negative (Negative); Urine Protein Trace mg/dL (Neg-Trace)
[2023-02-02 01:20] LABS: Ammonia 17 umol/L (13-55)
[2023-02-02 01:21] LABS: Amphetamine Screen Urine Not Detected (Not Detect); Barbiturates, Urine Not Detected (Not Detect); Benzodiazepines Screen Urine Not Detected (Not Detect); Cannabinoid Screen Urine Not Detected (Not Detect); Cocaine Screen Urine Not Detected (Not Detect); Fentanyl, urine Not Detected (Not Detect); Opiate Screen Urine POSITIVE (Not Detect); Phencyclidine Screen Urine Not Detected (Not Detect)
[2023-02-02 01:22] LABS: INTERNATIONAL NORM RATIO 1.3 (0.9-1.1); Prothrombin Time 15.4 SEC (11.1-13.3)
[2023-02-02 01:23] LABS: Venous Blood Gas Refer to POC result
[2023-02-02 01:24] LABS: Lactic Acid 1.7 mmol/L (0.5-2.0)
[2023-02-02 01:27] LABS: Bacteria Urine 4+ (None Seen); Squamous Epithelial Cell Urine 0-2 /HPF (0-2); UACC Culture Trigger YES
[2023-02-02 01:30] LABS: Acetaminophen LAB < 3 mcg/mL (<30); Salicylate < 5.0 mg/dL (15-30)
[2023-02-02 01:31] LABS: Alanine Aminotransferase 19 U/L (0-31); Albumin Level 3.7 g/dL (3.5-5.0); Alkaline Phosphatase 193 U/L (39-117); Anion Gap 14 (12-20); Aspartate Amino Transferase 16 U/L (5-31); Bilirubin Direct 0.2 mg/dL (0.0-0.5); Bilirubin Total 0.6 mg/dL (0.0-1.0); Blood Urea Nitrogen 12 mg/dL (9-16); Calcium 9.2 mg/dL (8.4-10.2); Carbon Dioxide 32 mmol/L (22-29); Chloride 96 mmol/L (96-108); Creatinine Clr Calc Pharmacy 60.3; Estimated Glomerular Filt Rate 47; Ethanol < 10 mg/dL; Glucose Random 318 mg/dL (60-115); Lipase 6 U/L (8-78); Potassium 4.8 mmol/L (3.3-5.1); Sodium 137 mmol/L (135-145); Total Protein 7.2 g/dL (6.5-8.0)
[2023-02-02 01:37] LABS: Troponin-I High Sensitivity < 2.7 ng/L (<3.5-17.0)
--- NOTE | 2023-02-02 01:47 | P.HPHOSP_ITS ---
History of Present Illness Date of Service: 02/02/23 Chief Complaint: Altered mentation This is a 52-year-old female with pertinent history of essential hypertension, insulin-dependent diabetes mellitus, chronic hypoxemic respiratory failure on trach collar due to asthma, mixed hyperlipidemia, mood disorder, history of PE on Eliquis who was sent to the emergency department for evaluation of altered mentation. Unable to obtain history from the patient as she is very lethargic and encephalopathy. History obtained from ER provider and chart review. Apparently patient took unknown amounts of Percocet and was found to be confused. Her mentation improved with administration of Narcan by EMS. Patient only eye opening to painful stimulus at the time of my evaluation. Very lethargic and falls back asleep mid conversation. Unable to obtain review of systems Review of Systems 2 Review of Systems: Yes Unobtainable due to mental status PMFSH Medical History History of cardiac arrest Wound drainage Takotsubo cardiomyopathy Kidney stones UTI (urinary tract infection) Bipolar 1 disorder Diabetes Asthma Substance abuse Family History Mother No pertinent family history Father No pertinent family history Surgical History S/P ureteral stent placement H/O exploratory laparotomy S/P cholecystectomy Household Members: Spouse Household Members Other:: 1 Housing: Apartment Do you presently have visiting nurse or other home services: Yes (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 nurse - 5 days/week) Alcohol intake: never Patient Tobacco Use Status: Never used Tobacco Smoked in Last 30 Days: No Second Hand Smoke Exposure: Yes Use of substances other than those prescribed or required for medical reasons: No Advance Directives: Yes Advance Directives on File: Yes Advance Directives Date on File: 01/25/22 service: No Current occupational status: disabled Meds Allergies Allergy/AdvReac Type Severity Reaction Status Date / Time pantoprazole Allergy Unknown Verified 10/16/22 10:22 Active Medications: Current Medications Ertapenem 1 gm/ Sodium (Chloride) 50 mls @ 100 mls/hr IV ONCE ONE Stop: 02/02/23 02:05 Home Medications Medication Instructions Recorded Confirmed Last Taken Type albuterol sulfate 2.5 mg/3 mL 1 vial inhalation Q4H PRN wheezing 10/28/21 12/21/22 12/20/22 History (0.083 %) solution for nebulization atorvastatin 10 mg tablet 1 tab PO DAILY 10/28/21 12/21/22 12/20/22 History clonazepam 1 mg tablet 1 tab PO BID Anxiety 10/28/21 12/21/22 12/20/22 History escitalopram oxalate 20 mg tablet 1 tab PO BEDTIME 10/28/21 12/21/22 12/20/22 History famotidine 20 mg tablet 1 tab PO BID 10/28/21 12/21/22 12/20/22 History fluticasone propionate 50 1 spray intranasal DAILY 10/28/21 12/21/22 12/20/22 History mcg/actuation nasal spray,suspension glipizide 5 mg tablet 1 tab PO BID 10/28/21 12/21/22 12/20/22 History lurasidone 60 mg tablet (Latuda) 1 tab PO DAILY 10/28/21 12/21/22 12/20/22 History oxcarbazepine 300 mg tablet 1 tab PO BID 10/28/21 12/21/22 12/20/22 History promethazine 25 mg tablet 1 tab PO DAILY PRN nausea 10/28/21 12/21/22 04/05/22 History albuterol sulfate 90 mcg/actuation 2 puff inhalation QID PRN 01/24/22 12/21/22 04/05/22 History aerosol inhaler (Ventolin HFA) Shortness Of Breath diphenhydramine HCl 25 mg capsule 25 mg PO Q6H PRN POST NASAL DRIP 01/24/22 12/21/22 04/05/22 History (Benadryl) tizanidine 4 mg tablet 1 tab PO DAILY PRN muscle spasm 01/24/22 12/21/22 04/05/22 History gabapentin 100 mg capsule 100 mg PO TID 10/16/22 12/21/22 12/20/22 History metformin 500 mg tablet,extended 1,000 mg PO BID 10/16/22 12/21/22 12/20/22 History release 24 hr trazodone 150 mg tablet 150 mg PO BEDTIME Insomnia 10/16/22 12/21/22 12/20/22 History insulin lispro 100 unit/mL 1 sliding scale dose subcut TIDAC 12/21/22 12/21/22 12/20/22 History subcutaneous pen (Humalog KwikPen (U-100) Insulin) Physical Exam 2 Vital Signs and Narrative: Vital Signs: Last Vital Signs Temp 98.1 F 02/02/23 00:03 Pulse 112 H 02/02/23 00:03 Resp 18 02/02/23 00:03 BP 100/79 02/02/23 00:03 Pulse Ox 98 02/02/23 00:03 O2 Del Method Room Air 02/02/23 00:03 BMI result Body Mass Index 37.5 Middle-aged female lying in bed in no distress on trach collar Neck supple, no JVD Tachycardic with regular rhythm, S1-S2 heard Regular breath sounds bilaterally, no wheezing or crackles appreciated Abdomen soft nontender, no guarding, no rigidity Patient is drowsy and only eye opening to painful stimulus, unable to have a conversation, unable to assess orientation Psych: Lethargic No pedal edema Results Labs 02/02/23 01:00 02/02/23 01:00 Labs: Laboratory Results - last 24 hr 02/02/23 02/02/23 02/02/23 00:37 01:00 01:08 MCV 85.1 MCH 26.3 L MCHC 30.9 L RDW 14.5 Plt Count 296 MPV 9.9 Immature Gran % (Auto) 0.4 Neut % (Auto) 87.0 H Lymph % (Auto) 5.1 L [place] % (Auto) 3.8 Eos % (Auto) 3.3 Baso % (Auto) 0.4 Lymph # (Auto) 0.6 L [place] # (Auto) 0.4 Eos # (Auto) 0.4 Baso # (Auto) 0.1 Abs Immat Gran (auto) 0.04 H Absolute Neuts (auto) 9.9 H Absolute Nucleated RBC 0.000 Nucleated RBC % (auto) 0.0 PT 15.4 H INR 1.3 H VBG pH 7.38 VBG pCO2 67 VBG pO2 48 VBG HCO3 40 H VBG O2 Saturation 79.0 VBG Base Excess 12.8 Anion Gap 14 Estim Creat Clear Calc 60.3 Estimated GFR 47 Random Glucose 318 H Lactic Acid 1.7 Calcium 9.2 Total Bilirubin 0.6 Direct Bilirubin 0.2 AST 16 ALT 19 Alkaline Phosphatase 193 H Ammonia 17 Total Protein 7.2 Albumin 3.7 Lipase 6 L Urine Color Yellow Urine Appearance Clear Urine pH 5.5 Ur Specific [place] 1.020 Urine Protein Trace Urine Glucose (UA) 250 H Urine Ketones Negative Urine Blood Trace H Urine Nitrite Positive H Ur Leukocyte Esterase Trace H Urine RBC 3-5 H Urine WBC 11-20 H Ur Squamous Epith Cells 0-2 Urine Bacteria 4+ Hyaline Casts 3-5 Salicylates < 5.0 L Urine Opiates Screen POSITIVE H Urine Fentanyl Screen Not Detected Acetaminophen < 3 Ur Barbiturates Screen Not Detected Ur Phencyclidine Scrn Not Detected Ur Amphetamines Screen Not Detected U Benzodiazepines Scrn Not Detected Urine Cocaine Screen Not Detected U Marijuana (THC) Screen Not Detected Ethyl Alcohol < 10 Imaging Radiologist's Impressions: Impressions Chest X-Ray 02/02/23 00:06 IMPRESSION: No acute intrathoracic disease. Small right pleural effusion. Assessment and Plan (1) Acute encephalopathy: Status: Acute (2) Acute UTI: Status: Acute (3) Hyperglycemia due to type 2 diabetes mellitus: Status: Acute Plan This is a 52-year-old female with pertinent history of essential hypertension, insulin-dependent diabetes mellitus, asthma not on home oxygen, mixed hyperlipidemia, mood disorder, history of PE on Eliquis who was sent to the emergency department for evaluation of altered mentation. #. Acute encephalopathy, likely toxic in the setting of Percocet use: Mentation slight improved with Narcan as per EMS. Consulting Addiction Team. May have a component of metabolic encephalopathy due to acute UTI. #. Acute UTI: Previous urine culture with ESBL Klebsiella. Initiating empiric IV antibiotics. Follow urine culture. No sepsis #. Insulin-dependent diabetes mellitus with hyperglycemia: Initiating basal plus insulin regimen #. Chronic hypoxemic respiratory failure on trach collar due to asthma: Patient on baseline supplemental oxygen. No exacerbation during admission #. History of PE: On Eliquis #. Mixed hyperlipidemia: On statin #. Mood disorder: Continue home mood stabilizers #. Obesity: Low-calorie diet and weight loss Med rec pending DVT prophylaxis: Eliquis Full code Admit as inpatient and will require two night minimum hospital stay for IV antibiotics, monitoring of mentation (as above), which is not possible in a lesser acute setting. Quality Stroke Does the patient have a stroke diagnosis?: No VTE Prior VTE?: No VTE Risk Level:: Medical - moderate - high VTE Device Contraindication: Treatment Not Indicated VTE Drug Contraindication: N/A - Med Ordered
[2023-02-02 01:51] LABS: Influenza A PCR NEGATIVE (Negative); Influenza B PCR NEGATIVE (Negative); Resp Syncy Virus RNA Qual PCR NEGATIVE (Negative); SARS COV2 PCR INHOUSE NEGATIVE (Negative)
[2023-02-02] MEDS: Ertapenem Sodium 1 GM in 0.9 % Sodium Chloride 50 ML IV (02:32)
[2023-02-02 02:50] LABS: Glucose, Whole Blood 278 mg/dL (60-115)
[2023-02-02] MEDS: Insulin Glargine,Hum.rec.anlog 100 UNIT/ML 10 ML VIAL 15 UNIT SUBCUT (02:56)
--- NOTE | 2023-02-02 02:58 | PC.NURSE ---
Pt medicated per may. Plan of care ongoing.
--- NOTE | 2023-02-02 03:04 | PC.NURSE ---
Resp called to suction pt. Provider aware. Dr Monson aware of POC. This RN spoke with pts Casimiro @ [phone] Plan of care ongoing.
--- NOTE | 2023-02-02 03:15 | PC.NURSE ---
Resp with pt. Plan of care ongoing.
[2023-02-02 06:08] LABS: Eosinophils Absolute Auto 0.2 X10*3/uL (0.0-0.4); Hemoglobin 10.6 g/dl (12.0-16.0); Mean Platelet Volume 10.4 fL (9.4-12.3); Neutrophils Percent Auto 81.5 % (45-73); PLT CLUMP 1; SCAN SMEAR FLAG 1
[2023-02-02 06:10] LABS: Basophils Absolute Auto 0.1 X10*3/uL (0.0-0.2); Basophils Percent Auto 0.5 % (0-2); Eosinophils Percent Auto 1.9 % (0-4); Imm Gran Abs Auto 0.03 X10*3/uL (0.00-0.03); Imm Gran Pct Auto 0.3 % (0.0-0.4); Lymphocytes Percent Auto 10.1 % (20-40); MANUAL DIFF FLAG SCAN; Mean Corpuscular HGB Conc 31.2 g/dl (31.0-35.0); Mean Corpuscular Hemoglobin 26.6 pg (27.0-33.0); Mean Corpuscular Volume 85.2 fL (80.0-98.0); Monocytes Absolute Auto 0.6 X10*3/uL (0.1-1.2); Monocytes Percent Auto 5.7 % (2-11); Neutrophils Absolute Auto 8.4 x10*3/uL (2.0-8.3); Red Blood Count 3.99 X10*6/uL (4.20-5.50); Red Cell Distribution Width 14.5 % (11.0-16.0)
[2023-02-02 06:11] LABS: Platelet Count 234 X10*3/uL (160-400); White Blood Count 10.2 X10*3/uL (4.8-10.8)
[2023-02-02 06:21] LABS: Anion Gap 12 (12-20); Blood Urea Nitrogen 13 mg/dL (9-16); Calcium 8.8 mg/dL (8.4-10.2); Carbon Dioxide 32 mmol/L (22-29); Chloride 99 mmol/L (96-108); Creatinine Clr Calc Pharmacy 68.9; Estimated Glomerular Filt Rate 55; Glucose Random 252 mg/dL (60-115); Sodium 138 mmol/L (135-145)
--- NOTE | 2023-02-02 06:21 | PC.NURSE ---
Pt ambulated to the restroom with a steady gait. Plan of care ongoing.
--- NOTE | 2023-02-02 06:28 | PC.NURSE ---
Pt requesting breathing tx. Resp called. Plan of care ongoing.
[2023-02-02 06:30] LABS: SLIDE REVIEW VERIFIED
[2023-02-02] MEDS: 0.9 % Sodium Chloride Flush 3 ML SYRINGE IVFLUSH (07:11)
[2023-02-02 07:18] LABS: Glucose, Whole Blood 247 mg/dL (60-115)
--- NOTE | 2023-02-02 08:29 | P.DS_ITS ---
DS: Providers Provider Date of Service: 02/02/23 Date of admission: 02/02/23 01:45 Primary care physician: Unknown Physician Consults: 02/02/23 01:36 Consult to Infectious Diseases Routine Consulting Provider: Lulu Avina Reason for consultation: esbl uti Has provider been notified: No DS: Diagnosis Discharge Diagnosis (1) Acute encephalopathy: Status: Acute (2) Acute UTI: Status: Acute (3) Hyperglycemia due to type 2 diabetes mellitus: Status: Acute DS: Summary Hospital Course Hospital Course: from initial hpi: 52-year-old female with pertinent history of essential hypertension, insulin- dependent diabetes mellitus, chronic hypoxemic respiratory failure on trach collar due to asthma, mixed hyperlipidemia, mood disorder, history of PE on Eliquis who was sent to the emergency department for evaluation of altered mentation. Unable to obtain history from the patient as she is very lethargic and encephalopathy. History obtained from ER provider and chart review. Apparently patient took unknown amounts of Percocet and was found to be confused. Her mentation improved with administration of Narcan by EMS. Patient only eye opening to painful stimulus at the time of my evaluation. Very lethargic and falls back asleep mid conversation. Unable to obtain review of systems hospital course: Patient was admitted for acute toxic metabolic encephalopathy due to extra Percocet use. Significant improved after Narcan. Patient is back to her baseline. Therefore, unlikely to be secondary to urinary tract infection. Patient does have bacteriuria and pyuria but denies any urinary symptoms and reports often having asymptomatic bacteriuria. Therefore, will defer treatment for now. Patient is instructed to monitor her symptoms in case bacteremia becomes clinically significant. For diabetes with hyperglycemia she was continuing basal bolus insulin. For chronic hypoxic respiratory failure with trach collar she was continued on her baseline supplemental oxygen. For history of pulmonary embolism she has continue Eliquis. For obesity weight loss recommended. Patient is back to baseline, ambulating well, will be discharged home. Time Attestation Discharge coordination time: Greater than 30 minutes Quality: Safe Use of Opioids Does Pt have an Active Cancer Diagnosis on the Problem List?: No Quality: Stroke Does the patient have a stroke diagnosis?: No Physical Exam Vital Signs: Vital Signs: Last Vital Signs Temp 98.1 F 02/02/23 00:03 Pulse 112 H 02/02/23 00:03 Resp 18 02/02/23 00:03 BP 100/79 02/02/23 00:03 Pulse Ox 98 02/02/23 00:03 O2 Del Method Room Air 02/02/23 00:03 BMI result Body Mass Index 37.5 Appearance: Alert. Oriented X3. No acute distress. Eyes: Pupils equal, round and reactive to light. ENT: Pharynx normal. Neck: Normal inspection. Neck supple. No lymph nodes noted. No crepitus CVS: Normal heart rate and rhythm. Pulses normal. Normal S1 and S2 Respiratory: No respiratory distress. Breath sounds normal. No Wheezing. No rales Abdomen: Soft and nontender. No rigidity. No distention. good BS x4 Skin: Skin warm and dry. Normal skin color. Normal skin turgor. Extremities: No lower extremity edema. Neurovascular intact to all extremities. No Lacerations. No Rash Neuro: Oriented X 3. No motor deficit. No sensory deficit. Moving all extermities. No slurred speech DS: Data Data Completed and Pending Completed studies during hospitalization [Text1]: Procedures Dilation of Left Ureter with Intraluminal Device, Via Natural or Artificial Opening Endoscopic (06/11/21) Fluoroscopy of Left Kidney, Ureter and Bladder (06/11/21) Labs on day of discharge: Laboratory Results - last 24 hr 02/02/23 02/02/23 02/02/23 00:37 00:42 01:00 WBC 11.4 H RBC 4.30 Hgb 11.3 L Hct 36.6 L MCV 85.1 MCH 26.3 L MCHC 30.9 L RDW 14.5 Plt Count 296 MPV 9.9 Immature Gran % (Auto) 0.4 Neut % (Auto) 87.0 H Lymph % (Auto) 5.1 L [place] % (Auto) 3.8 Eos % (Auto) 3.3 Baso % (Auto) 0.4 Lymph # (Auto) 0.6 L [place] # (Auto) 0.4 Eos # (Auto) 0.4 Baso # (Auto) 0.1 Abs Immat Gran (auto) 0.04 H Absolute Neuts (auto) 9.9 H Absolute Nucleated RBC 0.000 Nucleated RBC % (auto) 0.0 Smear Tech's Comments PT 15.4 H INR 1.3 H VBG pH VBG pCO2 VBG pO2 VBG HCO3 VBG O2 Saturation VBG Base Excess Sodium 137 Potassium 4.8 Chloride 96 Carbon Dioxide 32 H Anion Gap 14 BUN 12 Creatinine 1.19 Estim Creat Clear Calc 60.3 Estimated GFR 47 POC Glucose Random Glucose 318 H Lactic Acid 1.7 Calcium 9.2 Total Bilirubin 0.6 Direct Bilirubin 0.2 AST 16 ALT 19 Alkaline Phosphatase 193 H Ammonia 17 Troponin I High Sens < 2.7 Total Protein 7.2 Albumin 3.7 Lipase 6 L Urine Color Yellow Urine Appearance Clear Urine pH 5.5 Ur Specific [place] 1.020 Urine Protein Trace Urine Glucose (UA) 250 H Urine Ketones Negative Urine Blood Trace H Urine Nitrite Positive H Ur Leukocyte Esterase Trace H Urine RBC 3-5 H Urine WBC 11-20 H Ur Squamous Epith Cells 0-2 Urine Bacteria 4+ Hyaline Casts 3-5 Salicylates < 5.0 L Urine Opiates Screen POSITIVE H Urine Fentanyl Screen Not Detected Acetaminophen < 3 Ur Barbiturates Screen Not Detected Ur Phencyclidine Scrn Not Detected Ur Amphetamines Screen Not Detected U Benzodiazepines Scrn Not Detected Urine Cocaine Screen Not Detected U Marijuana (THC) Screen Not Detected Ethyl Alcohol < 10 Influenza Type A (PCR) NEGATIVE Influenza Type B (PCR) NEGATIVE RSV RNA Qual (PCR) NEGATIVE SARS-CoV-2 RNA (RT-PCR) NEGATIVE 02/02/23 02/02/23 02/02/23 01:08 02:46 05:57 WBC 10.2 RBC 3.99 L Hgb 10.6 L Hct 34.0 L MCV 85.2 MCH 26.6 L MCHC 31.2 RDW 14.5 Plt Count 234 MPV 10.4 Immature Gran % (Auto) 0.3 Neut % (Auto) 81.5 H Lymph % (Auto) 10.1 L [place] % (Auto) 5.7 Eos % (Auto) 1.9 Baso % (Auto) 0.5 Lymph # (Auto) 1.0 L [place] # (Auto) 0.6 Eos # (Auto) 0.2 Baso # (Auto) 0.1 Abs Immat Gran (auto) 0.03 Absolute Neuts (auto) 8.4 H Absolute Nucleated RBC 0.000 Nucleated RBC % (auto) 0.0 Smear Tech's Comments VERIFIED PT INR VBG pH 7.38 VBG pCO2 67 VBG pO2 48 VBG HCO3 40 H VBG O2 Saturation 79.0 VBG Base Excess 12.8 Sodium 138 Potassium 5.0 Chloride 99 Carbon Dioxide 32 H Anion Gap 12 BUN 13 Creatinine 1.04 Estim Creat Clear Calc 68.9 Estimated GFR 55 POC Glucose 278 H Random Glucose 252 H Lactic Acid Calcium 8.8 Total Bilirubin Direct Bilirubin AST ALT Alkaline Phosphatase Ammonia Troponin I High Sens Total Protein Albumin Lipase Urine Color Urine Appearance Urine pH Ur Specific [place] Urine Protein Urine Glucose (UA) Urine Ketones Urine Blood Urine Nitrite Ur Leukocyte Esterase Urine RBC Urine WBC Ur Squamous Epith Cells Urine Bacteria Hyaline Casts Salicylates Urine Opiates Screen Urine Fentanyl Screen Acetaminophen Ur Barbiturates Screen Ur Phencyclidine Scrn Ur Amphetamines Screen U Benzodiazepines Scrn Urine Cocaine Screen U Marijuana (THC) Screen Ethyl Alcohol Influenza Type A (PCR) Influenza Type B (PCR) RSV RNA Qual (PCR) SARS-CoV-2 RNA (RT-PCR) 02/02/23 07:15 WBC RBC Hgb Hct MCV MCH MCHC RDW Plt Count MPV Immature Gran % (Auto) Neut % (Auto) Lymph % (Auto) [place] % (Auto) Eos % (Auto) Baso % (Auto) Lymph # (Auto) [place] # (Auto) Eos # (Auto) Baso # (Auto) Abs Immat Gran (auto) Absolute Neuts (auto) Absolute Nucleated RBC Nucleated RBC % (auto) Smear Tech's Comments PT INR VBG pH VBG pCO2 VBG pO2 VBG HCO3 VBG O2 Saturation VBG Base Excess Sodium Potassium Chloride Carbon Dioxide Anion Gap BUN Creatinine Estim Creat Clear Calc Estimated GFR POC Glucose 247 H Random Glucose Lactic Acid Calcium Total Bilirubin Direct Bilirubin AST ALT Alkaline Phosphatase Ammonia Troponin I High Sens Total Protein Albumin Lipase Urine Color Urine Appearance Urine pH Ur Specific [place] Urine Protein Urine Glucose (UA) Urine Ketones Urine Blood Urine Nitrite Ur Leukocyte Esterase Urine RBC Urine WBC Ur Squamous Epith Cells Urine Bacteria Hyaline Casts Salicylates Urine Opiates Screen Urine Fentanyl Screen Acetaminophen Ur Barbiturates Screen Ur Phencyclidine Scrn Ur Amphetamines Screen U Benzodiazepines Scrn Urine Cocaine Screen U Marijuana (THC) Screen Ethyl Alcohol Influenza Type A (PCR) Influenza Type B (PCR) RSV RNA Qual (PCR) SARS-CoV-2 RNA (RT-PCR) Discharge Plan Discharge Anticipated Discharge Date/Time: 02/02/23 08:19 Patient Disposition: Home, Self-Care Discharge Diagnosis: toxic encephalopathy Referrals: Physician,Unknown J [Primary Care Provider] - 1 Week Discharge Medications: Continued albuterol sulfate 2.5 mg /3 mL (0.083 %) solution for nebulization 1 inhalation Q4H PRN (Reason: wheezing) atorvastatin 10 mg tablet 10 mg PO DAILY tizanidine 4 mg tablet 4 mg PO DAILY PRN (Reason: muscle spasm) benzonatate 200 mg capsule 200 mg PO TID PRN (Reason: cough) clonazepam 1 mg tablet 1 mg PO BID PRN (Reason: Anxiety) oxcarbazepine 300 mg tablet 300 mg PO BID famotidine 20 mg tablet 20 mg PO BID trazodone 150 mg tablet 150 mg PO BEDTIME PRN (Reason: Sleep) promethazine 25 mg tablet 25 mg PO DAILY PRN (Reason: nausea) fluticasone propion-salmeterol [Advair Diskus] 500-50 mcg/dose blister with device 1 ea INHALATION BID gabapentin 100 mg capsule 100 mg PO QD-TID cefuroxime axetil 500 mg tablet 500 mg PO BID albuterol sulfate [Ventolin HFA] 90 mcg/actuation HFA aerosol inhaler 2 puff inhalation Q4H PRN (Reason: wheezing) fluticasone propionate 50 mcg/actuation spray,suspension intranasal metformin 500 mg tablet extended release 24 hr 1,000 mg PO BID doxycycline hyclate 100 mg tablet 100 mg PO BID glipizide 5 mg tablet 5 mg PO DAILY insulin lispro 100 unit/mL insulin pen subcut escitalopram oxalate 20 mg tablet 20 mg PO BEDTIME insulin glargine [Lantus Solostar U-100 Insulin] 100 unit/mL (3 mL) insulin pen 10 unit subcut DAILY Eliquis 5 mg tablet 5 mg PO BID lurasidone 60 mg tablet 60 mg PO QPM Discharge Orders: Discharge Order (Routine); Ordered 02/02/23 Ordered By: Ace Cuevas Diet: Advance to usual diet Activity on Discharge: As tolerated Stand Alone Forms: Patient Portal Discharge page Care Plan Goals: recovery Health Concerns: bacturia Plan of Treatment: avoid extra opiates, monitor for uti symptoms Assessment: see above
--- NOTE | 2023-02-02 09:22 | MHC.CM.PN ---
Pt from home with . Has [employer] 10 hrs/wk through [facility]. Ambultes with a cane PRN. and [employer] O[employer]ATOR assist with ADL's. Chronic trach, humidification and home O2 2-4L. All supplies through [employer]. Patient names , Casimiro, as HCP. [phone]. Has a PCP, but cannot recall name. 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
[2023-02-02 09:31] VITALS: BP 109/60; PULSE 90; RESP 15; TEMP 36.8; O2SAT 95
== END 2023-02-02 10:27 | disposition home or self-care (01) | DRG 812 ==
LOC: HO.ED 02-02 00:28 → HO.EDOVER 02-02 02:18
PROVIDERS: Admitting Provider Student in an Organized Health Care Education/Training Program; Emergency Provider Emergency Medicine Emergency Medical Services; Visit Provider Internal Medicine
DX: T40.2X1A Poisoning by other opioids, accidental (unintentional), initial encounter (principal); J96.11 Chronic respiratory failure with hypoxia; Z93.0 Tracheostomy status; N39.0 Urinary tract infection, site not specified; E11.65 Type 2 diabetes mellitus with hyperglycemia; E78.2 Mixed hyperlipidemia; E66.9 Obesity, unspecified; J45.909 Unspecified asthma, uncomplicated; F39 Unspecified mood [affective] disorder; Z68.37 Body mass index [BMI] 37.0-37.9, adult; Z86.711 Personal history of pulmonary embolism; I10 Essential (primary) hypertension; Z71.3 Dietary counseling and surveillance; Z20.822 Contact with and (suspected) exposure to COVID-19; Z79.01 Long term (current) use of anticoagulants; Z79.51 Long term (current) use of inhaled steroids; Z79.84 Long term (current) use of oral hypoglycemic drugs; Z79.4 Long term (current) use of insulin; Z79.899 Other long term (current) drug therapy
CPT/HCPCS: 0241U; 36415; 71045; 80048; 80076; 80143; 80179; 80307; 81001; 82140; 82803; 82947; 83605; 83690; 84484; 85025; 85610; 87040; 87086; 87088; 87186; 93005; 99285; J1335; J2185

== ENCOUNTER → 2023-02-02 01:45 | Outpatient (BNV) | payer OTHER, SELFPAY | PROVIDERS: Admitting Provider Student in an Organized Health Care Education/Training Program; Emergency Provider Emergency Medicine Emergency Medical Services; Visit Provider Student in an Organized Health Care Education/Training Program | DX: G93.40 Encephalopathy, unspecified (principal); N39.0 Urinary tract infection, site not specified; E11.65 Type 2 diabetes mellitus with hyperglycemia | CPT/HCPCS: 99235; 99499 ==

== ENCOUNTER 2023-02-12 11:52 | Emergency (ER) | payer OTHER, SELFPAY ==
[2023-02-12 12:20] VITALS: BP 129/63; PULSE 119; RESP 18; TEMP 37; O2SAT 95; BMI 36.3
--- NOTE | 2023-02-12 12:20 | ED_ITS ---
HPI - Skin/Abscess/Foreign Bdy General Chief complaint: Skin/Abscess/Foreign Body Stated complaint: body rash Time Seen by Provider: 02/12/23 14:17 Source: patient Mode of arrival: ambulatory Limitations: no limitations History of Present Illness HPI narrative: 52-year-old female with past medical history of asthma, bipolar disorder, diabetes,? 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 Unknown trigger. No difficulty breathing, diff swallowing, cough, lip or tongue swelling. Related Data Home Medications Medication Instructions Recorded Confirmed albuterol sulfate 2.5 mg/3 mL 1 inhalation Q4H PRN wheezing 02/02/23 (0.083 %) solution for nebulization albuterol sulfate 90 mcg/actuation 2 puff inhalation Q4H PRN wheezing 02/02/23 aerosol inhaler (Ventolin HFA) apixaban 5 mg tablet (Eliquis) 5 mg PO BID 02/02/23 atorvastatin 10 mg tablet 10 mg PO DAILY 02/02/23 benzonatate 200 mg capsule 200 mg PO TID PRN cough 02/02/23 cefuroxime axetil 500 mg tablet 500 mg PO BID 02/02/23 clonazepam 1 mg tablet 1 mg PO BID PRN Anxiety 02/02/23 doxycycline hyclate 100 mg tablet 100 mg PO BID 02/02/23 escitalopram oxalate 20 mg tablet 20 mg PO BEDTIME 02/02/23 famotidine 20 mg tablet 20 mg PO BID 02/02/23 fluticasone 500 mcg-salmeterol 50 1 ea inhalation BID 02/02/23 mcg/dose blistr powdr for inhalation (Advair Diskus) fluticasone propionate 50 spray intranasal 02/02/23 mcg/actuation nasal spray,suspension gabapentin 100 mg capsule 100 mg PO QD-TID 02/02/23 glipizide 5 mg tablet 5 mg PO DAILY 02/02/23 insulin glargine 100 unit/mL (3 10 unit subcut DAILY 02/02/23 mL) subcutaneous pen (Lantus Solostar U-100 Insulin) insulin lispro 100 unit/mL subcut 02/02/23 subcutaneous pen lurasidone 60 mg tablet 60 mg PO QPM 02/02/23 metformin 500 mg tablet,extended 1,000 mg PO BID 02/02/23 release 24 hr oxcarbazepine 300 mg tablet 300 mg PO BID 02/02/23 promethazine 25 mg tablet 25 mg PO DAILY PRN nausea 02/02/23 tizanidine 4 mg tablet 4 mg PO DAILY PRN muscle spasm 02/02/23 trazodone 150 mg tablet 150 mg PO BEDTIME PRN Sleep 02/02/23 Previous Rx's Medication Instructions Recorded prednisone 20 mg tablet 40 mg (2 x 20 mg) PO DAILY #8 tabs 02/12/23 Allergies Allergy/AdvReac Type Severity Reaction Status Date / Time pantoprazole Allergy Unknown Verified 02/12/23 12:20 Review of Systems Review of Systems: Yes all other systems are reviewed and are negative Constitutional: Constitutional: Reports no additional constitutional complaints, Denies body ache(s), Denies chills, Denies fever(s), Denies headache(s) and Denies weakness Eyes: Eyes: Reports no additional eye complaints and Denies change in vision ENT: Reports system reviewed and no additional complaints, except as documented, Denies dizziness, Denies headache(s), Denies nasal congestion, Denies nasal discharge and Denies neck pain Cardiovascular: Cardiovascular: Reports no additional cardiovascular complaints, Denies chest pain, Denies leg edema and Denies dyspnea Respiratory: Respiratory: Reports no additional respiratory complaints, Denies cough and Denies dyspnea Gastrointestinal: Gastrointestinal: Reports no additional gastrointestinal complaints, Denies abdominal pain, Denies diarrhea, Denies nausea and Denies vomiting Genitourinary: Genitourinary: Reports no additional female genitourinary complaints and Denies urinary incontinence Musculoskeletal: Musculoskeletal: Reports no additional musculoskeletal complaints, Denies back pain, Denies arthralgias, Denies joint swelling, Denies neck pain, Denies numbness and Denies tingling Integumentary/Breasts: Skin/Breast: Reports system reviewed and no additional complaints, except as docu and Reports rash Neurologic: Reports system reviewed and no additional complaints, except as documented, Denies Abnormal speech present, Denies dizziness, Denies headache(s), Denies numbness, Denies tingling and Denies weakness PMF Past Medical History Attestation statement: The following information was validated with the patient. Source: old records reviewed and nursing notes reviewed Medical History History of cardiac arrest Wound drainage Takotsubo cardiomyopathy Kidney stones UTI (urinary tract infection) Bipolar 1 disorder Diabetes Asthma Substance abuse Surgical History S/P ureteral stent placement H/O exploratory laparotomy S/P cholecystectomy Family History Family History Mother No pertinent family history Father No pertinent family history Social History Social History Household Members: Spouse Household Members Other:: 1 Housing: Apartment Do you presently have visiting nurse or other home services: Yes (personal support worker - 5 days/week) Alcohol intake: never Comment: stayed in ed Patient Tobacco Use Status: Never used Tobacco Second Hand Smoke Exposure: Yes Advance Directives: No Advance Directives Information Provided: No Advance Directives Date on File: 01/25/22 service: No Current occupational status: disabled Physical Exam Vital Signs: Vital Signs: Last Vital Signs Temp 98.6 F 02/12/23 12:20 Pulse 119 H 02/12/23 12:20 Resp 18 02/12/23 12:20 BP 129/63 02/12/23 12:20 Pulse Ox 95 02/12/23 12:20 O2 Del Method Room Air 02/12/23 12:20 BMI result Body Mass Index 36.3 Const: General: cooperative, healthy appearing, comfortable and no acute distress Orientation/consciousness: patient oriented x3 Limitations: no limitations HEENT: Head: Yes normal to inspection Ears: hearing grossly normal bi laterally General nose exam: Normal external nose present Face and sinus: Yes normal facial exam Mouth: Normal oral and palatal mucosa present Throat: Yes posterior oropharynx normal Eyes: General: appearance normal, both eyes and all related structures Pupils: Equal, round and reactive pupils present Neck: Neck: Yes normal visual inspection Chest: Chest palpation & inspection: normal inspection of the chest Resp: Effort & Inspection: normal respiratory effort Auscultation: clear to auscultation bilaterally Cardio: Rate: regular rate Rhythm: regular rhythm Peripheral pulses: Peripheral pulses 2+ throughout GI: Inspection: Yes normal to inspection Palpation (GI): Soft to palpation and nontender Auscultation: normal bowel sounds Back/Spine/Pelvis: Thoracic/Lumbar Spine: thoracic and lumbar spine normal to inspection Skin: Other: +diffuse urticarial rash noted, +blancha ble, non sloughing General skin exam: no rashes or lesions noted Neuro: General: patient oriented x3, no focal motor deficits and normal sensation to monofilament Cranial nerves: Yes Equal, round and reactive pupils present Cognition (Neuro): normal cognition Speech: No Abnormal speech present Gait exam (Neuro): Normal gait present Motor exam (neuro): 5/5 motor strength present throughout Extrem: General: Yes normal to inspection Course Course Course Narrative: This is an RME: Additional HPI, ROS, PE not included below will be deferred to primary provider. Patient is a 52-year-old female who presents to the emergency department with complaint of 2 days with diffuse pruritic body rash,started on the back and then spread now including palms of the hands. Reports discomfort from intense itch, difficulty sleeping, no relief with benadryl and hydrocortisone. Denies new contact allergens, recent tick bites, denies concern for STI such as syphilis. Reports ABX usage 4 weeks ago, does not recall the name. No oral lesions, skin peeling, fevers. Rash appears consistent with extensive urticaria. Plan: placed inWR pending bed availability for treatment Reevaluation(s) Reevaluation #1: rash improving. plan for discharge home. Patient has famotidine and Benadryl muscle tightrope cortisone at home which we discussed usage of. Will add prednisone. Reviewed worrisome signs and symptoms of when to return to the emergency room. Comfortable plan for discharge home. Medications Administered Discontinued Medications Generic Name Dose Route Start Last Admin Trade Name Frank PRN Reason Stop Dose Admin Diphenhydramine HCl 50 mg 02/12/23 14:29 02/12/23 14:53 Diphenhydramine Hcl 50 Mg/Ml Vial IVPUSH 02/12/23 14:30 50 mg ONCE ONE Administration Famotidine 20 mg 02/12/23 14:29 02/12/23 14:53 Famotidine/Pf 20 Mg/2 Ml Vial IVPUSH 02/12/23 14:30 20 mg ONCE ONE Administration Methylprednisolone Sodium Succinate 125 mg 02/12/23 14:29 02/12/23 14:53 Methylprednisolone Sod Succ 125 Mg/2 Ml Vial IVPUSH 02/12/23 14:30 125 mg ONCE ONE Administration Medical Decision Making Medical Decision Making MDM Narrative: 52-year-old female with past medical history of asthma, bipolar disorder, diabetes,? 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 Unknown trigger. No difficulty breathing, diff swallowing, cough, lip or tongue swelling. +diffuse urticarial rash. No airway involvement. Non toxic Will obtain PIV and give solumedrol, famotidine and benadryl Differential Diagnosis Differential Diagnoses: The differential diagnosis associated with the presentation includes allergic reaction Not consistent with TEN, SJS, dress syndrome, cellulitis, TSS, STI Admission/Observation Consideration of admission/observation: Escalation of care including admission/observation considered no airway involvement or angioedema with improving symptoms with IV steroids. Plan for discharge home with further management Tests considered The following testing was considered but not selected: labs Prescription Management I considered prescription management with: Antibiotic Discharge Plan Discharge Clinical Impression: Allergic reaction Patient Disposition: Home, Self-Care Instructions: General Allergic Reaction (ED) Additional Instructions: take 40 mg of famotidine for the next 5 days Continue Benadryl as needed Continue your itch cream as needed Start your prednisone tomorrow Return for any difficulty breathing, difficulty swallowing, tongue or lip swelling. Prescriptions: New prednisone 20 mg tablet 40 mg PO DAILY Qty: 8 0RF No Action albuterol sulfate 2.5 mg /3 mL (0.083 %) solution for nebulization 1 inhalation Q4H PRN (Reason: wheezing) atorvastatin 10 mg tablet 10 mg PO DAILY tizanidine 4 mg tablet 4 mg PO DAILY PRN (Reason: muscle spasm) benzonatate 200 mg capsule 200 mg PO TID PRN (Reason: cough) clonazepam 1 mg tablet 1 mg PO BID PRN (Reason: Anxiety) oxcarbazepine 300 mg tablet 300 mg PO BID famotidine 20 mg tablet 20 mg PO BID trazodone 150 mg tablet 150 mg PO BEDTIME PRN (Reason: Sleep) promethazine 25 mg tablet 25 mg PO DAILY PRN (Reason: nausea) fluticasone propion-salmeterol [Advair Diskus] 500-50 mcg/dose blister with device 1 ea INHALATION BID gabapentin 100 mg capsule 100 mg PO QD-TID cefuroxime axetil 500 mg tablet 500 mg PO BID albuterol sulfate [Ventolin HFA] 90 mcg/actuation HFA aerosol inhaler 2 puff inhalation Q4H PRN (Reason: wheezing) fluticasone propionate 50 mcg/actuation spray,suspension intranasal metformin 500 mg tablet extended release 24 hr 1,000 mg PO BID doxycycline hyclate 100 mg tablet 100 mg PO BID glipizide 5 mg tablet 5 mg PO DAILY insulin lispro 100 unit/mL insulin pen subcut escitalopram oxalate 20 mg tablet 20 mg PO BEDTIME insulin glargine [Lantus Solostar U-100 Insulin] 100 unit/mL (3 mL) insulin pen 10 unit subcut DAILY Eliquis 5 mg tablet 5 mg PO BID lurasidone 60 mg tablet 60 mg PO QPM Referrals: Megan Mosqueda MD [Primary Care Provider] - 1 week
[2023-02-12] MEDS: diphenhydrAMINE HCL 50 MG/ML VIAL IVPUSH (14:53)
[2023-02-12] MEDS: methylPREDNISolone Sod Succ 125 MG/2 ML VIAL IVPUSH (14:53)
[2023-02-12] MEDS: Famotidine/PF 20 MG/2 ML VIAL IVPUSH (14:53)
== END 2023-02-12 17:14 | disposition home or self-care (01) ==
PROVIDERS: Emergency Provider Emergency Medicine; PCP Internal Medicine
DX: R21 Rash and other nonspecific skin eruption (principal); T78.40XA Allergy, unspecified, initial encounter; X58.XXXA Exposure to other specified factors, initial encounter
CPT/HCPCS: 96374; 96375; 99282; 99284; J1200; J2930

== ENCOUNTER 2023-02-15 16:48 | Emergency (ER) | payer OTHER, SELFPAY ==
[2023-02-15 17:08] VITALS: BP 128/74; PULSE 94; RESP 18; TEMP 36.7; O2SAT 97; BMI 37.4
--- NOTE | 2023-02-15 17:38 | ED_ITS ---
HPI - General Adult General Chief complaint: Allergic Reaction Stated complaint: ?ALLERGIC REACTION/HIVES Time Seen by Provider: 02/15/23 17:38 Source: patient Mode of arrival: ambulatory Limitations: no limitations History of Present Illness HPI narrative: Patient is a 52-year-old female with history of cardiac arrest, cardiomyopathy, bipolar, DM, asthma presenting to the emergency department with complaint of d iffuse pruritic rash since . Was seen here on 02/12, medicated with Benadryl, famotidine, Solu-Medrol and discharged home on prednisone. States pruritic rash is persisting. She denies shortness of breath or chest tightness, denies swelling to lips or tongue. MD complaint: rash Onset (ago): day(s) Location: back, upper extremity and lower extremity Quality: other (pruritic) Associated symptoms: rash Treatments prior to arrival: other (prednisone) Related Data Home Medications Medication Instructions Recorded Confirmed albuterol sulfate 2.5 mg/3 mL 1 inhalation Q4H PRN wheezing 02/02/23 (0.083 %) solution for nebulization albuterol sulfate 90 mcg/actuation 2 puff inhalation Q4H PRN wheezing 02/02/23 aerosol inhaler (Ventolin HFA) apixaban 5 mg tablet (Eliquis) 5 mg PO BID 02/02/23 atorvastatin 10 mg tablet 10 mg PO DAILY 02/02/23 benzonatate 200 mg capsule 200 mg PO TID PRN cough 02/02/23 cefuroxime axetil 500 mg tablet 500 mg PO BID 02/02/23 clonazepam 1 mg tablet 1 mg PO BID PRN Anxiety 02/02/23 doxycycline hyclate 100 mg tablet 100 mg PO BID 02/02/23 escitalopram oxalate 20 mg tablet 20 mg PO BEDTIME 02/02/23 famotidine 20 mg tablet 20 mg PO BID 02/02/23 fluticasone 500 mcg-salmeterol 50 1 ea inhalation BID 02/02/23 mcg/dose blistr powdr for inhalation (Advair Diskus) fluticasone propionate 50 spray intranasal 02/02/23 mcg/actuation nasal spray,suspension gabapentin 100 mg capsule 100 mg PO QD-TID 02/02/23 glipizide 5 mg tablet 5 mg PO DAILY 02/02/23 insulin glargine 100 unit/mL (3 10 unit subcut DAILY 02/02/23 mL) subcutaneous pen (Lantus Solostar U-100 Insulin) insulin lispro 100 unit/mL subcut 02/02/23 subcutaneous pen lurasidone 60 mg tablet 60 mg PO QPM 02/02/23 metformin 500 mg tablet,extended 1,000 mg PO BID 02/02/23 release 24 hr oxcarbazepine 300 mg tablet 300 mg PO BID 02/02/23 promethazine 25 mg tablet 25 mg PO DAILY PRN nausea 02/02/23 tizanidine 4 mg tablet 4 mg PO DAILY PRN muscle spasm 02/02/23 trazodone 150 mg tablet 150 mg PO BEDTIME PRN Sleep 02/02/23 Previous Rx's Medication Instructions Recorded prednisone 20 mg tablet 40 mg (2 x 20 mg) PO DAILY #8 tabs 02/12/23 cetirizine 10 mg tablet 10 mg PO DAILY #30 tabs 02/15/23 prednisone 20 mg tablet 20 mg PO DAILY #18 tabs 02/15/23 Allergies Allergy/AdvReac Type Severity Reaction Status Date / Time pantoprazole Allergy Unknown Verified 02/12/23 12:20 Review of Systems Review of Systems: As per HPI. Yes all other systems are reviewed and are negative Constitutional: Constitutional: Reports as per HPI [facility] Past Medical History Medical History History of cardiac arrest Wound drainage Takotsubo cardiomyopathy Kidney stones UTI (urinary tract infection) Bipolar 1 disorder Diabetes Asthma Substance abuse Surgical History S/P ureteral stent placement H/O exploratory laparotomy S/P cholecystectomy Family History Family History Mother No pertinent family history Father No pertinent family history Social History Social History Household Members: Spouse Household Members Other:: 1 Housing: Apartment Do you presently have 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 Blood pressure normal. Heart rate normal. Respiratory rate normal. Temperature normal. Oxygen saturation normal. Const General: cooperative, healthy appearing and no acute distress Orientation/consciousness: oriented to person, oriented to place, oriented to time and patient oriented x3 Limitations: no limitations HENMT Head: Yes normocephalic and Yes atraumatic Ears: external ears normal General nose exam: Normal external nose present Face and sinus: Yes face symmetric Mouth: lip normal, tongue normal, oropharynx normal, moist mucous membranes, no audible dysphonia and no drooling Throat: Yes posterior oropharynx normal, Yes uvula midline and No uvular edema Eyes Pupils: Equal, round and reactive pupils present Neck Neck: Yes normal visual inspection, Yes full ROM, Yes no lymphadenopathy, Yes supple and No anterior neck swelling Resp Effort & Inspection: normal respiratory effort and able to speak in complete sentences Auscultation: clear to auscultation bilaterally Cardio Rate: regular rate Rhythm: regular rhythm Heart sounds: S1 normal heart sound present and S2 normal heart sound present GI Palpation (GI): Soft to palpation and nontender Auscultation: normoactive bowel sounds General: Yes no CVA tenderness Back/Spine/Pelvis Back: no CVA tenderness Skin General skin exam: elasticity normal and turgor normal Rashes: rashes noted (diffuse erythematous urticaria) Neuro General: oriented to person, oriented to place, oriented to time, patient oriented x3, moves all extremities, no focal motor deficits and CN's II-XI intact bilaterally Cranial nerves: Yes Equal, round and reactive pupils present Cognition (Neuro): normal cognition Extrem General: Yes full ROM, Yes no pedal edema and Yes no calf tenderness Psych Mental Status: mental status grossly normal Affect: normal affect Thought process: Normal thought process present Medical Decision Making Medical Decision Making MDM Narrative: Patient is a 52-year-old female with history of cardiac arrest, cardiomyopathy, bipolar, DM, asthma presenting to the emergency department with complaint of diffuse pruritic rash since . On exam patient is awake, A+Ox3, VS WNL, afebrile, normal neurological exam without focal deficits, physical exam findings as above. She is in no acute distress. Given reported symptoms and physical exam findings, initial differential includes allergic reaction, contact dermatitis. No red flag findings concerning for DRESS, TEN/SJS, TSS, SSSS, STI, cellulitis. Will start patient on cetirizine daily with instruction to increase to b.i.d. if symptoms do not improve, will also extend prednisone taper. Will refer to Dermatology. Return precautions discussed. Patient verbalized understanding agreement plan. Differential Diagnosis Differential Diagnoses: The differential diagnosis associated with the presentation includes As per MDM. External Record Review External record reviewed: Inpatient record, Office record and Outpatient record Prescription Management I considered prescription management with: Other Discharge Plan Discharge Clinical Impression: Rash and nonspecific skin eruption, Urticaria Patient Disposition: Home, Self-Care Instructions: Urticaria (ED) Additional Instructions: You were evaluated in the emergency department today for ongoing rash. You are being treated with a taper dose of prednisone. Please monitor your blood glucose levels closely as this medication can increase your blood glucose. You should begin taking cetirizine 10 mg daily, if necessary you can increase this to twice daily. You are being referred to Dermatology for further evaluation of your symptoms. Please call 1 of the offices to schedule an appointment. Return to the emergency department if you develop rash to palms, soles, inside mouth, fever, shortness of breath or difficulty breathing, swelling to her lips or tongue or any other concerning symptoms. Please follow-up with your primary care provider this week. Prescriptions: New prednisone 20 mg tablet 20 mg PO DAILY Qty: 18 0RF Rx Instructions: 60 mg (3 tabs) x3 days, then 40 mg (2 tabs) x3 days, then 20 mg (1 tab) x3 days cetirizine 10 mg tablet 10 mg PO DAILY Qty: 30 0RF Rx Instructions: Take 1 tab daily, may increase to twice daily if rash persists No Action albuterol sulfate 2.5 mg /3 mL (0.083 %) solution for nebulization 1 inhalation Q4H PRN (Reason: wheezing) atorvastatin 10 mg tablet 10 mg PO DAILY tizanidine 4 mg tablet 4 mg PO DAILY PRN (Reason: muscle spasm) benzonatate 200 mg capsule 200 mg PO TID PRN (Reason: cough) clonazepam 1 mg tablet 1 mg PO BID PRN (Reason: Anxiety) oxcarbazepine 300 mg tablet 300 mg PO BID famotidine 20 mg tablet 20 mg PO BID trazodone 150 mg tablet 150 mg PO BEDTIME PRN (Reason: Sleep) promethazine 25 mg tablet 25 mg PO DAILY PRN (Reason: nausea) fluticasone propion-salmeterol [Advair Diskus] 500-50 mcg/dose blister with device 1 ea INHALATION BID gabapentin 100 mg capsule 100 mg PO QD-TID cefuroxime axetil 500 mg tablet 500 mg PO BID albuterol sulfate [Ventolin HFA] 90 mcg/actuation HFA aerosol inhaler 2 puff inhalation Q4H PRN (Reason: wheezing) fluticasone propionate 50 mcg/actuation spray,suspension intranasal metformin 500 mg tablet extended release 24 hr 1,000 mg PO BID doxycycline hyclate 100 mg tablet 100 mg PO BID glipizide 5 mg tablet 5 mg PO DAILY insulin lispro 100 unit/mL insulin pen subcut escitalopram oxalate 20 mg tablet 20 mg PO BEDTIME insulin glargine [Lantus Solostar U-100 Insulin] 100 unit/mL (3 mL) insulin pen 10 unit subcut DAILY Eliquis 5 mg tablet 5 mg PO BID lurasidone 60 mg tablet 60 mg PO QPM prednisone 20 mg tablet 40 mg PO DAILY Qty: 8 0RF Referrals: [facility] [Provider Group] [facility] [Provider Group] [facility] [Provider Group]
== END 2023-02-15 18:29 | disposition home or self-care (01) ==
LOC: HO.ED 18:28
PROVIDERS: Emergency Provider Student in an Organized Health Care Education/Training Program; PCP Internal Medicine
DX: L50.0 Allergic urticaria (principal)
CPT/HCPCS: 99282; 99283

== ENCOUNTER 2023-03-26 22:25 | Inpatient (IN) | payer OTHER, SELFPAY ==
--- NOTE | ~2023-03-26 | XR_ITS ---
EXAMINATION: XR CHEST CLINICAL INFORMATION: Cough, shortness of breath R/O pneumonia COMPARISON: 02/01/2023 TECHNIQUE: Frontal view of the chest was obtained. FINDINGS: Tracheostomy tube is in place. Patchy airspace opacity in the right upper lobe is slightly more pronounced as compared to prior and may correspond to pneumonia. Slight elevation of the right hemidiaphragm is unchanged as compared to prior. No pneumothorax or pleural effusion. Linear atelectasis or pleural parenchymal scarring at the bases. Cardiac and mediastinal contours are normal. No acute osseous findings. Degenerative spondylosis in the thoracic spine. XR/XR chest 1V IMPRESSION: 1. Patchy airspace opacity in the right upper lobe is slightly more pronounced as compared to prior and may correspond to pneumonia. 2. Bibasilar atelectasis.
[2023-03-26 22:29] VITALS: BP 139/74; PULSE 107; RESP 16; TEMP 35.9; O2SAT 89; BMI 36.0
--- NOTE | 2023-03-26 22:36 | ED_ITS ---
HPI - SOB/Dyspnea General Chief Complaint: Dyspnea Stated Complaint: Hrad time breathing Time Seen by Provider: 03/26/23 22:35 Source: patient Mode of arrival: ambulatory Limitations: no limitations History of Present Illness HPI Narrative: 52-year-old female with history diabetes mellitus, asthma, pancreatitis, cardiac arrest 2020 with prolonged intubation requiring tracheostomy who presents emergency department for evaluation of shortness of breath, cough, back pain x4 days. Patient states she has had a cough which is productive of brown, fixed sputum. She states that the cough is worse when she lies down flat. She feels short of breath and has dyspnea on exertion. Patient states she is chronic back pain in the cough is exacerbated her back pain. Patient had fever and chills. She had nausea with 1 episode of vomiting yesterday. She denied diarrhea, myalgias arthralgias. Patient states she has been alternating between her inhalers and her nebulizer treatments every 2 hours and despite this she still is feeling short of breath. Related Data Home Medications Medication Instructions Recorded Confirmed albuterol sulfate 2.5 mg/3 mL 1 inhalation Q4H PRN wheezing 02/02/23 (0.083 %) solution for nebulization albuterol sulfate 90 mcg/actuation 2 puff inhalation Q4H PRN wheezing 02/02/23 aerosol inhaler (Ventolin HFA) apixaban 5 mg tablet (Eliquis) 5 mg PO BID 02/02/23 atorvastatin 10 mg tablet 10 mg PO DAILY 02/02/23 benzonatate 200 mg capsule 200 mg PO TID PRN cough 02/02/23 cefuroxime axetil 500 mg tablet 500 mg PO BID 02/02/23 clonazepam 1 mg tablet 1 mg PO BID PRN Anxiety 02/02/23 doxycycline hyclate 100 mg tablet 100 mg PO BID 02/02/23 escitalopram oxalate 20 mg tablet 20 mg PO BEDTIME 02/02/23 famotidine 20 mg tablet 20 mg PO BID 02/02/23 fluticasone 500 mcg-salmeterol 50 1 ea inhalation BID 02/02/23 mcg/dose blistr powdr for inhalation (Advair Diskus) fluticasone propionate 50 spray intranasal 02/02/23 mcg/actuation nasal spray,suspension gabapentin 100 mg capsule 100 mg PO QD-TID 02/02/23 glipizide 5 mg tablet 5 mg PO DAILY 02/02/23 insulin glargine 100 unit/mL (3 10 unit subcut DAILY 02/02/23 mL) subcutaneous pen (Lantus Solostar U-100 Insulin) insulin lispro 100 unit/mL subcut 02/02/23 subcutaneous pen lurasidone 60 mg tablet 60 mg PO QPM 02/02/23 metformin 500 mg tablet,extended 1,000 mg PO BID 02/02/23 release 24 hr oxcarbazepine 300 mg tablet 300 mg PO BID 02/02/23 promethazine 25 mg tablet 25 mg PO DAILY PRN nausea 02/02/23 tizanidine 4 mg tablet 4 mg PO DAILY PRN muscle spasm 02/02/23 trazodone 150 mg tablet 150 mg PO BEDTIME PRN Sleep 02/02/23 Previous Rx's Medication Instructions Recorded prednisone 20 mg tablet 40 mg (2 x 20 mg) PO DAILY #8 tabs 02/12/23 cetirizine 10 mg tablet 10 mg PO DAILY #30 tabs 02/15/23 prednisone 20 mg tablet 20 mg PO DAILY #18 tabs 02/15/23 Allergies Allergy/AdvReac Type Severity Reaction Status Date / Time pantoprazole Allergy Unknown Verified 03/26/23 22:29 Review of Systems 2 Review of Systems: Yes all other systems are reviewed and are negative [facility] Past Medical History [facility] Narrative: Social history: She denies tobacco, alcohol and drug use. Onset Date is defined in the Problem List Problems that require an onset date and time if occurred within 24 hrs of arrival to the ED Aortic Dissection and Rupture; Neurologic impairment; Cardiopulmonary Arrest; Endotracheal Intubation; Insertion or Replacement of Mechanical Circulatory Assist Device Medical History History of cardiac arrest Wound drainage Takotsubo cardiomyopathy Kidney stones UTI (urinary tract infection) Bipolar 1 disorder Diabetes Asthma Substance abuse Surgical History S/P ureteral stent placement H/O exploratory laparotomy S/P cholecystectomy Family History Family History Mother No pertinent family history Father No pertinent family history Social History Social History Household Members: Spouse Household Members Other:: 1 Housing: Apartment Do you presently have 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) Alcohol intake: never Comment: stayed in ed Patient Tobacco Use Status: Never used Tobacco Smoked in Last 30 Days: No Second Hand Smoke Exposure: Yes Use of substances other than those prescribed or required for medical reasons: No Advance Directives: Yes Advance Directives on File: Yes Advance Directives Date on File: 01/25/22 Patient : No service: No Current occupational status: disabled Physical Exam 2 Vital Signs: Vital Signs: Last Vital Signs Temp 98.7 F 03/26/23 22:38 Pulse 75 03/26/23 23:14 Resp 14 03/26/23 23:14 BP 118/56 L 03/26/23 22:38 Pulse Ox 96 03/26/23 22:38 O2 Del Method Room Air 03/26/23 22:29 BMI result Body Mass Index 36.0 Vital signs revealed an elevated heart rate of 107 an O2 saturation of 89% on room air Exam: General: Awake, alert in no distress Head: Normocephalic, atraumatic EENT: PERRL, Lids normal, sclera normal, conjunctiva normal, nose normal , ears normal, throat without erythema or exudates Neck: Supple, no adenopathy, no trachea midline or C-spine tenderness. Patient has tracheostomy Lung: Breath sounds symmetric bilaterally, patient has good inspiratory and expiratory flow with diffuse wheezing and rales at the bases Chest: symmetric movement, nontender Heart: regular rate and rhythm, normal S1, S2 no murmurs or rubs Abdomen: soft, non-tender, nondistended, normal bowel sounds Back: no vertebral tenderness, no CVAT Extremities: no deformities, moves all extremities symmetrically, no edema Neuro: Awake, alert, oriented, normal speech, cranial nerves intact, moves all extremities symmetrically Psych: Pleasant, cooperative Medications Administered Discontinued Medications Generic Name Dose Route Start Last Admin Trade Name Freq PRN Reason Stop Dose Admin Albuterol Sulfate 5 mg/ 0 mg 03/26/23 23:08 03/26/23 23:11 Albuterol/Ipratropium 3 ml INHALE 03/26/23 23:09 2.5 each ONCE ONE Administration Methylprednisolone Sodium Succinate 125 mg 03/26/23 22:46 03/26/23 22:56 Methylprednisolone Sod Succ 125 Mg/2 Ml Vial IVPUSH 03/26/23 22:47 125 mg ONCE ONE Administration Morphine Sulfate 4 mg 03/26/23 22:46 03/26/23 22:58 Morphine Sulfate 4 Mg/Ml Cartridge IVPUSH 03/26/23 22:47 4 mg ONCE STA Administration Protocol Medical Decision Making Medical Decision Making MDM Narrative: 52-year-old female with history diabetes mellitus, asthma, pancreatitis, cardiac arrest 2020 with prolonged intubation with chronic tracheostomy who presents emergency department for evaluation of shortness of breath, cough, back pain x4 days. Patient's cough is productive of thick brown sputum, she has had feve and chills chills with no myalgias arthralgias. Patient has been alternating between her nebulizer and inhalers every 2 hours with no improvement of her shortness of breath. Vital signs revealed an elevated heart rate of 107 low O2 saturation of 89% on room air. Lung exam revealed diffuse wheezing. Following evaluation was ordered: CBC, CMP, PTT, BNP, lactic acid, blood cultures x2, COVID-19, influenza, chest x-ray, road train driver, O2 saturation monitor. Patient was treated with the following: Bronchodilator protocol, Solu-Medrol 125 mg IV, oxygen 2 L via nasal cannula and morphine 4 mg IV for back pain. 00:20 My interpretation patient's laboratory evaluation is as follows: Elevated WBC 39582. Anemia with an H&H of 11 and 36-chronic. Bicarb elevated 30-chronic. Glucose elevated 259. Alk-phos elevated 160. COVID-19 influenza negative Chest x-ray is concerning for right upper lobe infiltrate new compared to chest x-ray dated 02/02/2023 The patient did get some improvement with albuterol 5 mg with albuterol combined 3 mm DuoNeb nebulizer treatment. Given her new pneumonia and the frequency of using her inhaler and nebulizer machines at home with minimal improvement, I believe the patient needs be admitted for treatment of pneumonia. Patient was treated with Zithromax 500 mg IV and ceftriaxone 1 g IV Patient's presentation was discussed over tiger text with the covering hospitalist, Dr.Jeisa Anil Elias Differential Diagnosis Differential Diagnoses: The differential diagnosis associated with the presentation includes Differential diagnosis includes was not limited to pneumonia, viral syndrome, COVID-19, influenza, bronchitis Admission/Observation Consideration of admission/observation: Escalation of care including admission/observation considered Consult Healthcare Provider Management of the patient was discussed with: Hospitalist Lab Data MDM Lab Attestation statement: I reviewed the patient's lab results. 03/26/23 23:05 03/26/23 23:05 Labs: Lab Results 03/26/23 Range/Units 23:05 WBC 11.9 H (4.8-10.8) X10*3/uL RBC 4.34 (4.20-5.50) X10*6/uL Hgb 11.4 L (12.0-16.0) g/dl Hct 36.4 L (37.0-47.0) % MCV 83.9 (80.0-98.0) fL MCH 26.3 L (27.0-33.0) pg MCHC 31.3 (31.0-35.0) g/dl RDW 14.4 (11.0-16.0) % Plt Count 320 D (160-400) X10*3/uL MPV 9.2 L (9.4-12.3) fL Immature Gran % (Auto) 0.4 (0.0-0.4) % Neut % (Auto) 78.8 H (45-73) % Lymph % (Auto) 10.7 L (20-40) % [place] % (Auto) 5.1 (2-11) % Eos % (Auto) 4.7 H (0-4) % Baso % (Auto) 0.3 (0-2) % Lymph # (Auto) 1.3 (1.2-4.9) X10*3/uL [place] # (Auto) 0.6 (0.1-1.2) X10*3/uL Eos # (Auto) 0.6 H (0.0-0.4) X10*3/uL Baso # (Auto) 0.0 (0.0-0.2) X10*3/uL Abs Immat Gran (auto) 0.05 H (0.00-0.03) X10*3/uL Absolute Neuts (auto) 9.4 H (2.0-8.3) x10*3/uL Absolute Nucleated RBC 0.000 (0.0-0.012) X10*3/uL Nucleated RBC % (auto) 0.0 (0.0-0.2) /100WBC APTT 39.9 H D (26.0-36.4) SEC Sodium 134 L (135-145) mmol/L Potassium 4.4 (3.3-5.1) mmol/L Chloride 94 L (96-108) mmol/L Carbon Dioxide 30 H (22-29) mmol/L Anion Gap 14 (12-20) BUN 16 (9-16) mg/dL Creatinine 1.19 (0.5-1.4) mg/dL Estim Creat Clear Calc 58.9 Estimated GFR 47 Random Glucose 259 H (60-115) mg/dL Lactic Acid 1.9 (0.5-2.0) mmol/L Calcium 9.0 (8.4-10.2) mg/dL Total Bilirubin 0.2 (0.0-1.0) mg/dL AST 13 (5-31) U/L ALT 18 (0-31) U/L Alkaline Phosphatase 168 H (39-117) U/L B-Natriuretic Peptide 17 (<100) pg/mL Total Protein 6.6 (6.5-8.0) g/dL Albumin 3.5 (3.5-5.0) g/dL COVID-19 (PRETTY) Negative (Negative) COVID-19 Clin Com See Note Influenza Type A (JOSE) Negative (Negative) Influenza Type B (JOSE) Negative (Negative) Influenza A & B Note See Note Independent Interpretation I performed an independent interpretation of an: Plain X-Ray Interpretation: My interpretation patient's one-view chest x-ray is as follows: Right upper lobe infiltrate new compared to 02/02/2023 Radiology Impression Discussion of test interpretation with radiology: I have reviewed the radiologist's reading. Radiologist Impression: XR chest 1V IMPRESSION: 1. Patchy airspace opacity in the right upper lobe is slightly more pronounced as compared to prior and may correspond to pneumonia. 2. Bibasilar atelectasis. Dictated By: n Chronic Conditions Patient?s care impacted by: Diabetes and Other (Asthma) Critical Care Time Critical Care Time Critical Care Time: Yes Total Critical Care Time: 35 Attestation: Critical Care: The patient was critically ill with a high probability of imminent or life threatening deterioration. I spent greater than 30 minutes of discontinuous time evaluating the patient,delivering critical care at the bedside, discussing and evaluating pertinent data with consultants. Critical care time does not include time spent performing separately billable procedures or teaching. Total time spent performing critical care was 35 minutes. Discharge Plan Discharge Clinical Impression: Pneumonia Qualifiers: Laterality: right Lung location: upper lobe of lung Patient Disposition: Admitted As Inpatient Prescriptions: No Action prednisone 20 mg tablet 20 mg PO DAILY Qty: 18 0RF Rx Instructions: 60 mg (3 tabs) x3 days, then 40 mg (2 tabs) x3 days, then 20 mg (1 tab) x3 days cetirizine 10 mg tablet 10 mg PO DAILY Qty: 30 0RF Rx Instructions: Take 1 tab daily, may increase to twice daily if rash persists albuterol sulfate 2.5 mg /3 mL (0.083 %) solution for nebulization 1 inhalation Q4H PRN (Reason: wheezing) atorvastatin 10 mg tablet 10 mg PO DAILY tizanidine 4 mg tablet 4 mg PO DAILY PRN (Reason: muscle spasm) benzonatate 200 mg capsule 200 mg PO TID PRN (Reason: cough) clonazepam 1 mg tablet 1 mg PO BID PRN (Reason: Anxiety) oxcarbazepine 300 mg tablet 300 mg PO BID famotidine 20 mg tablet 20 mg PO BID trazodone 150 mg tablet 150 mg PO BEDTIME PRN (Reason: Sleep) promethazine 25 mg tablet 25 mg PO DAILY PRN (Reason: nausea) fluticasone propion-salmeterol [Advair Diskus] 500-50 mcg/dose blister with device 1 ea INHALATION BID gabapentin 100 mg capsule 100 mg PO QD-TID cefuroxime axetil 500 mg tablet 500 mg PO BID albuterol sulfate [Ventolin HFA] 90 mcg/actuation HFA aerosol inhaler 2 puff inhalation Q4H PRN (Reason: wheezing) fluticasone propionate 50 mcg/actuation spray,suspension intranasal metformin 500 mg tablet extended release 24 hr 1,000 mg PO BID doxycycline hyclate 100 mg tablet 100 mg PO BID glipizide 5 mg tablet 5 mg PO DAILY insulin lispro 100 unit/mL insulin pen subcut escitalopram oxalate 20 mg tablet 20 mg PO BEDTIME insulin glargine [Lantus Solostar U-100 Insulin] 100 unit/mL (3 mL) insulin pen 10 unit subcut DAILY Eliquis 5 mg tablet 5 mg PO BID lurasidone 60 mg tablet 60 mg PO QPM prednisone 20 mg tablet 40 mg PO DAILY Qty: 8 0RF
[2023-03-26 22:38] VITALS: BP 118/56; PULSE 97; RESP 21; TEMP 37.1; O2SAT 96
[2023-03-26] MEDS: methylPREDNISolone Sod Succ 125 MG/2 ML VIAL IVPUSH (22:56)
[2023-03-26] MEDS: Morphine Sulfate 4 MG/ML CARTRIDGE IVPUSH (22:58)
[2023-03-26] MEDS: Albuterol Sulfate 5 MG, Albuterol/Iprat 2.5/0.5MG 3 ML 3 ML INHALE (23:11)
[2023-03-26 23:14] VITALS: PULSE 75; RESP 14; O2SAT 97
[2023-03-26 23:14] LABS: MANUAL DIFF FLAG NO
[2023-03-26 23:15] LABS: Basophils Percent Auto 0.3 % (0-2); Eosinophils Absolute Auto 0.6 X10*3/uL (0.0-0.4); Eosinophils Percent Auto 4.7 % (0-4); Hematocrit 36.4 % (37.0-47.0); Hemoglobin 11.4 g/dl (12.0-16.0); Imm Gran Abs Auto 0.05 X10*3/uL (0.00-0.03); Imm Gran Pct Auto 0.4 % (0.0-0.4); Lymphocytes Absolute Auto 1.3 X10*3/uL (1.2-4.9); Lymphocytes Percent Auto 10.7 % (20-40); Mean Corpuscular HGB Conc 31.3 g/dl (31.0-35.0); Mean Corpuscular Hemoglobin 26.3 pg (27.0-33.0); Mean Corpuscular Volume 83.9 fL (80.0-98.0); Mean Platelet Volume 9.2 fL (9.4-12.3); Monocytes Absolute Auto 0.6 X10*3/uL (0.1-1.2); Monocytes Percent Auto 5.1 % (2-11); Neutrophils Absolute Auto 9.4 x10*3/uL (2.0-8.3); Neutrophils Percent Auto 78.8 % (45-73); Platelet Count 320 X10*3/uL (160-400); Red Blood Count 4.34 X10*6/uL (4.20-5.50); Red Cell Distribution Width 14.4 % (11.0-16.0); White Blood Count 11.9 X10*3/uL (4.8-10.8)
[2023-03-26 23:23] LABS: Lactic Acid 1.9 mmol/L (0.5-2.0); Partial Thromboplastin Time 39.9 SEC (26.0-36.4)
[2023-03-26 23:27] LABS: Alanine Aminotransferase 18 U/L (0-31); Albumin Level 3.5 g/dL (3.5-5.0); Alkaline Phosphatase 168 U/L (39-117); Anion Gap 14 (12-20); Aspartate Amino Transferase 13 U/L (5-31); Bilirubin Total 0.2 mg/dL (0.0-1.0); Blood Urea Nitrogen 16 mg/dL (9-16); Carbon Dioxide 30 mmol/L (22-29); Chloride 94 mmol/L (96-108); Creatinine Clr Calc Pharmacy 58.9; Estimated Glomerular Filt Rate 47; Glucose Random 259 mg/dL (60-115); Potassium 4.4 mmol/L (3.3-5.1); Sodium 134 mmol/L (135-145); Total Protein 6.6 g/dL (6.5-8.0)
[2023-03-26 23:31] LABS: COVID-19 Test Negative (Negative); IDNOW Serial# 08D9AD1C
[2023-03-26 23:33] LABS: IDNOW Serial# 152EDE1D; Influenza A Negative (Negative); Influenza B2 Negative (Negative)
[2023-03-26 23:40] LABS: B Type Natriuretic Peptide 17 pg/mL (<100)
[2023-03-27] VITALS (9 sets, daily range): BP systolic 105–141; BP diastolic 56–69; PULSE 81–101; RESP 12–20; TEMP 36–36.3; O2SAT 93–100; BMI 36.4
[2023-03-27] MEDS: cefTRIAXone sodium 1 GM in 0.9 % Sodium Chloride 50 ML IV ×2 (01:01→08:17)
[2023-03-27] MEDS: Albuterol/Iprat 2.5/0.5MG 3 ML AMPUL.NEB INHALE ×4 (01:03→15:47)
[2023-03-27] MEDS: Azithromycin 500 MG in 0.9 % Sodium Chloride 250 ML 125 MG IV (01:18)
[2023-03-27] MEDS: oxyCODONE HCl Immed Release 5 MG TABLET PO ×2 (01:40→16:27)
--- NOTE | 2023-03-27 01:55 | PC.NURSE ---
PT laying in bed, appears in no acute distress. Reported back pain 7/10 exacerbated by cough. Meds given (see MAR). Awaiting transport.
--- NOTE | 2023-03-27 02:53 | P.HPHOSP_ITS ---
History of Present Illness Date of Service: 03/27/23 Attending physician on admission: Jenny Elias Chief Complaint: Shortness of breath. Anna Marie Black is a 52 years old woman past medical history significant for obesity, type 2 diabetes, asthma/chronic respiratory failure w/ chronic tracheostomy -on home oxygen, bipolar disorder and takotsubo cardiomyopathy presents to the emergency department complaining of worsening shortness of breadth associated with productive sputum. She denies fever or chills. She also denied any chest pain, palpitations, headache or dizziness. She denied any acute gastrointestinal or genitourinary symptoms. She does complain of chronic low back pain. She denies tobacco smoking, alcohol abuse or illicit drug use. In the ED, she was found to have low oxygen saturation on room air (however patient states that she uses oxygen at home). She has slight tachycardia. She is currently requiring 2 liters/minutes supplemental oxygen via nasal cannula. Blood workup is remarkable for a slight leukocytosis and elevated. BNP is normal. There is significant hyperglycemia and CO2 is elevated. CXR showed RUL infiltrate. ED tx: DuoNeb, Solu-Medrol 125 mg IV x1, ceftriaxone 1 g IV, Zithromax 500 mg IV and morphine 4 mg IV for back pain. Review of Systems 2 Review of Systems: All 12 systems were reviewed and normal except as noted in HPI. 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 If so, by whom?: No Do you feel safe in your current relationship?: Yes Is there a partner from a previous relationship who is making you feel unsafe now?: No Are you made to feel afraid or neglected: No Advance Directives: Yes Advance Directives on File: Yes Advance Directives Date on File: 01/25/22 Do you have thoughts of harming others: None Do you have a plan to hurt others: No Plan Recently lost weight without trying: No Nutrition Risks: No Nutritional Risk Patient : No service: No Current occupational status: disabled Meds Allergies Allergy/AdvReac Type Severity Reaction Status Date / Time pantoprazole Allergy Unknown Verified 03/26/23 22:29 Active Medications: Current Medications Acetaminophen (Acetaminophen 325 Mg Tablet) 975 mg PO Q6H PRN PRN Reason: Pain, Mild (Pain Scale 1-3) Albuterol/Ipratropium (Albuterol/Iprat 2.5/0.5mg 3 Ml Ampul.Neb) 3 ml INHALE Q4H [facility] Last Admin: 03/27/23 01:03 Dose: 3 ml Apixaban (Apixaban 5 Mg Tablet) 5 mg PO BID [facility] Atorvastatin Calcium (Atorvastatin Calcium 10 Mg Tablet) 10 mg PO DAILY [facility] Azithromycin 500 mg/ Sodium (Chloride) 250 mls @ 125 mls/hr IV BEDTIME [facility] Ceftriaxone Sodium 1 gm/ (Sodium Chloride) 50 mls @ 100 mls/hr IV DAILY [facility] Methylprednisolone Sodium Succinate (Methylprednisolone Sod Succ 40 Mg/Ml Vial) 40 mg IVPUSH DAILY [facility] Oxycodone HCl (Oxycodone Hcl Immed Release 5 Mg Tablet) 5 mg PO Q6H PRN PRN Reason: Pain, Severe (Pain Scale 7-10) Last Admin: 03/27/23 01:40 Dose: 5 mg Sodium Chloride (0.9 % Sodium Chloride Flush 3 Ml Syringe) 3 ml IVFLUSH QSHIFT [facility] Home Medications Medication Instructions Recorded Confirmed Last Taken Type albuterol sulfate 2.5 mg/3 mL 1 inhalation Q4H PRN wheezing 02/02/23 Unknown History (0.083 %) solution for nebulization albuterol sulfate 90 mcg/actuation 2 puff inhalation Q4H PRN wheezing 02/02/23 Unknown History aerosol inhaler (Ventolin HFA) apixaban 5 mg tablet (Eliquis) 5 mg PO BID 02/02/23 Unknown History atorvastatin 10 mg tablet 10 mg PO DAILY 02/02/23 Unknown History benzonatate 200 mg capsule 200 mg PO TID PRN cough 02/02/23 Unknown History cefuroxime axetil 500 mg tablet 500 mg PO BID 02/02/23 Unknown History clonazepam 1 mg tablet 1 mg PO BID PRN Anxiety 02/02/23 Unknown History doxycycline hyclate 100 mg tablet 100 mg PO BID 02/02/23 Unknown History escitalopram oxalate 20 mg tablet 20 mg PO BEDTIME 02/02/23 Unknown History famotidine 20 mg tablet 20 mg PO BID 02/02/23 Unknown History fluticasone 500 mcg-salmeterol 50 1 ea inhalation BID 02/02/23 Unknown History mcg/dose blistr powdr for inhalation (Advair Diskus) fluticasone propionate 50 spray intranasal 02/02/23 Unknown History mcg/actuation nasal spray,suspension gabapentin 100 mg capsule 100 mg PO QD-TID 02/02/23 Unknown History glipizide 5 mg tablet 5 mg PO DAILY 02/02/23 Unknown History insulin glargine 100 unit/mL (3 10 unit subcut DAILY 02/02/23 Unknown History mL) subcutaneous pen (Lantus Solostar U-100 Insulin) insulin lispro 100 unit/mL subcut 02/02/23 Unknown History subcutaneous pen lurasidone 60 mg tablet 60 mg PO QPM 02/02/23 Unknown History metformin 500 mg tablet,extended 1,000 mg PO BID 02/02/23 Unknown History release 24 hr oxcarbazepine 300 mg tablet 300 mg PO BID 02/02/23 Unknown History promethazine 25 mg tablet 25 mg PO DAILY PRN nausea 02/02/23 Unknown History tizanidine 4 mg tablet 4 mg PO DAILY PRN muscle spasm 02/02/23 Unknown History trazodone 150 mg tablet 150 mg PO BEDTIME PRN Sleep 02/02/23 Unknown History Physical Exam 2 Vital Signs and Narrative: Vital Signs: Last Vital Signs Temp 98.7 F 03/26/23 22:38 Pulse 81 03/27/23 01:05 Resp 15 03/27/23 01:05 BP 118/56 L 03/26/23 22:38 Pulse Ox 96 03/26/23 22:38 O2 Del Method Room Air 03/26/23 22:29 BMI result Body Mass Index 36.4 Constitutional - Awake and Alert, No apparent distress. Cooperative. Obese. HEENT - normocephalic. Atraumatic. Tracheostomy in place. Nasal cannula in place. Cardiovascular - Regular rhythm. Mild tachycardia. Respiratory - Normal lung expansion, Normal respiratory effort, No respiratory distress, Tachypnea. No use of accessory muscle. Decreased breath sounds bilaterally. No wheezes or crackles. Gastrointestinal - NT / ND; +BS; No rebound or guarding Extremities - no calf tenderness bilaterally, no swelling Musculoskeletal - Normal inspection, normal ROM. Low back tenderness Skin - Warm/Dry Neurological - Alert & oriented x3 Psychological - depressed affect Results Labs 03/26/23 23:05 03/26/23 23:05 Labs: Laboratory Results - last 24 hr 03/26/23 23:05 MCV 83.9 MCH 26.3 L MCHC 31.3 RDW 14.4 Plt Count 320 D MPV 9.2 L Immature Gran % (Auto) 0.4 Neut % (Auto) 78.8 H Lymph % (Auto) 10.7 L [place] % (Auto) 5.1 Eos % (Auto) 4.7 H Baso % (Auto) 0.3 Lymph # (Auto) 1.3 [place] # (Auto) 0.6 Eos # (Auto) 0.6 H Baso # (Auto) 0.0 Abs Immat Gran (auto) 0.05 H Absolute Neuts (auto) 9.4 H Absolute Nucleated RBC 0.000 Nucleated RBC % (auto) 0.0 APTT 39.9 H D Anion Gap 14 Estim Creat Clear Calc 58.9 Estimated GFR 47 Random Glucose 259 H Lactic Acid 1.9 Calcium 9.0 Total Bilirubin 0.2 AST 13 ALT 18 Alkaline Phosphatase 168 H B-Natriuretic Peptide 17 Total Protein 6.6 Albumin 3.5 COVID-19 (PRETTY) Negative COVID-19 Clin Com See Note Influenza Type A (JOSE) Negative Influenza Type B (JOSE) Negative Influenza A & B Note See Note Imaging Radiologist's Impressions: Impressions Chest X-Ray 03/26/23 23:20 IMPRESSION: 1. Patchy airspace opacity in the right upper lobe is slightly more pronounced as compared to prior and may correspond to pneumonia. 2. Bibasilar atelectasis. Assessment and Plan (1) Pneumonia: Qualifiers: Laterality: right Lung location: upper lobe of lung Pneumonia type: d ue to unspecified organism Qualified Code(s): J18.9 - Pneumonia, unspecified organism Status: Acute (2) Hyperglycemia due to type 2 diabetes mellitus: Qualifiers: Diabetes mellitus prison insulin use: with termite exterminator use Qualified Code(s): E11.65 - Type 2 diabetes mellitus with hyperglycemia; Z79.4 - senior care (current) use of insulin Status: Acute Plan Anna Marie Black is a 52 years old woman admitted with: * Shortness of breadth secondary to community-acquired pneumonia associated with possible asthma exacerbation in the setting of chronic tracheostomy/chronic respiratory failure. Admit to hospitalist service. Telemetry. Pulse oximetry. Continue supplemental oxygen to keep oxygen saturation over 90%. Continued therapy with bronchodilators, empiric IV antibiotic therapy (ceftriaxone azithromycin) and IV steroids. Ulcerated such as trazodone Pulmonology consult. Tracheostomy clear. * Type 2 diabetes mellitus, uncontrolled. Lantus and insulin sliding scale. Metformin on hold. Blood glucose monitoring before midnight at bedtime. Diabetic diet. * Hyperlipidemia. Continue statin. * Bipolar disorder/depression. Continue oxacarbamazepine, lurasidone and escitalopram. * Chronic back pain. Oxycodone as needed. * History of PE. Continue Eliquis. * Obesity. BMI 36.4 kg/m2. Dietary consult. Lifestyle modifications and weight loss. * Chronic anemia, stable. Continue to monitor hemoglobin DVT prophylaxis: On Eliquis Code status: Full. Patient will need hospitalization for at least 2 midnight for pneumonia treatment with supplemental oxygen, bronchodilator and IV antibiotics Quality Stroke Does the patient have a stroke diagnosis?: No VTE Prior VTE?: Yes VTE Risk Level:: Medical - moderate - high VTE Device Contraindication: Treatment Not Indicated VTE Drug Contraindication: N/A - Med Ordered
[2023-03-27 02:54] LABS: Glucose, Whole Blood 429 mg/dL (60-115)
[2023-03-27] MEDS: Insulin Glargine,Hum.rec.anlog 100 UNIT/ML 10 ML VIAL 12 UNIT SUBCUT (03:16)
[2023-03-27] MEDS: Insulin Lispro 100 UNIT/ML 3 ML VIAL SUBCUT ×5 (03:16→16:26)
[2023-03-27 05:11] LABS: Glucose, Whole Blood 495 mg/dL (60-115)
[2023-03-27 06:56] LABS: Glucose, Whole Blood 420 mg/dL (60-115)
[2023-03-27 07:12] LABS: Basophils Percent Auto 0.4 % (0-2); Eosinophils Percent Auto 0.1 % (0-4); Hematocrit 36.7 % (37.0-47.0); Hemoglobin 11.3 g/dl (12.0-16.0); Imm Gran Abs Auto 0.06 X10*3/uL (0.00-0.03); Imm Gran Pct Auto 0.8 % (0.0-0.4); Lymphocytes Absolute Auto 0.3 X10*3/uL (1.2-4.9); Lymphocytes Percent Auto 3.9 % (20-40); MANUAL DIFF FLAG SCAN; Mean Corpuscular HGB Conc 30.8 g/dl (31.0-35.0); Mean Corpuscular Hemoglobin 26.2 pg (27.0-33.0); Mean Corpuscular Volume 85.2 fL (80.0-98.0); Mean Platelet Volume 9.9 fL (9.4-12.3); Monocytes Percent Auto 0.5 % (2-11); Neutrophils Absolute Auto 7.4 x10*3/uL (2.0-8.3); Neutrophils Percent Auto 94.3 % (45-73); Platelet Count 269 X10*3/uL (160-400); Red Blood Count 4.31 X10*6/uL (4.20-5.50); Red Cell Distribution Width 14.2 % (11.0-16.0); SCAN SMEAR FLAG 1; White Blood Count 7.9 X10*3/uL (4.8-10.8)
[2023-03-27 07:36] LABS: Estimated Average Glucose 255 mg/dL; Hemoglobin A1c % 10.5 % (<6.0)
[2023-03-27 07:40] LABS: SLIDE REVIEW VERIFIED
[2023-03-27 08:16] LABS: Anion Gap 22 (12-20); Blood Urea Nitrogen 20 mg/dL (9-16); Calcium 9.3 mg/dL (8.4-10.2); Carbon Dioxide 22 mmol/L (22-29); Chloride 96 mmol/L (96-108); Creatinine Clr Calc Pharmacy 49.6; Estimated Glomerular Filt Rate 39; Glucose Random 463 mg/dL (60-115); Potassium 4.6 mmol/L (3.3-5.1); Procalcitonin 0.08 ng/mL; Sodium 135 mmol/L (135-145)
[2023-03-27] MEDS: OXcarbazepine 300 MG TABLET PO (08:16)
[2023-03-27] MEDS: Atorvastatin Calcium 10 MG TABLET PO (08:16)
[2023-03-27] MEDS: Apixaban 5 MG TABLET PO (08:16)
[2023-03-27] MEDS: metFORMIN HCl 1,000 MG TABLET 1000 MG PO (08:16)
[2023-03-27] MEDS: Escitalopram Oxalate 20 MG TABLET PO (08:16)
[2023-03-27] MEDS: Insulin Glargine,Hum.rec.anlog 100 UNIT/ML 10 ML VIAL SUBCUT (08:17)
[2023-03-27] MEDS: Doxycycline Hyclate 100 MG in 0.9 % Sodium Chloride 250 ML 166.67 MG IV (08:17)
--- NOTE | 2023-03-27 08:26 | PC.NURSE ---
informed MD of critical POC
[2023-03-27] MEDS: Lurasidone HCl 20 MG TABLET 60 MG PO (08:36)
--- NOTE | 2023-03-27 09:51 | PHA.MEDREC ---
Pharmacy Consult ? Medication Reconciliation Pharmacy has completed the medication reconciliation.
--- NOTE | 2023-03-27 10:58 | P.CONPL_ITS ---
History of Present Illness History of Present Illness Consult date: 03/27/23 Chief complaint: Community Acquired Pneumonia Narrative: This is an inpatient pulmonary consultation. The patient is a 52 years old woman past medical history significant for obesity, type 2 diabetes, asthma/chronic respiratory failure w/ chronic tracheostomy -on home oxygen, bipolar disorder and takotsubo cardiomyopathy presents to the emergency department complaining of worsening shortness of breadth associated with productive sputum. She denies fever or chills. She also denied any chest pain, palpitations, headache or dizziness. In the ED, she was found to have low oxygen saturation on room air (however patient states that she uses oxygen at home). She has slight tachycardia. She is currently requiring 2 liters/minutes supplemental oxygen via nasal cannula. Blood workup is remarkable for a slight leukocytosis and elevated. BNP is normal. There is significant hyperglycemia and CO2 is elevated. CXR, personally reviewed by me demonstrated a RUL infiltrate. Also had a CT chest 12/2022 with patch GGO. [place] [facility] She has a #6 [place] trach without any issues. Review of Systems 2 Constitutional: Constitutional: Denies fever(s) Eyes: Eyes: Denies change in vision ENT: Reports nasal congestion Cardiovascular: Cardiovascular: Denies chest pain and Reports dyspnea Respiratory: Respiratory: Reports change in phlegm color, Reports chest congestion, Reports cough, Reports dyspnea and Reports wheezing Gastrointestinal: Gastrointestinal: Reports no additional gastrointestinal complaints Musculoskeletal: Musculoskeletal: Reports no additional musculoskeletal complaints Neurologic: Reports system reviewed and no additional complaints, except as documented Allergic/Immunologic: Allergic/Immunologic: Reports wheezing PMFSH Past Medical History Medical History History of cardiac arrest Wound drainage Takotsubo cardiomyopathy Kidney stones UTI (urinary tract infection) Bipolar 1 disorder Diabetes Asthma Substance abuse Family History Family History Mother No pertinent family history Father No pertinent family history Surgical History Surgical History S/P ureteral stent placement H/O exploratory laparotomy S/P cholecystectomy Social History Social History Household Members: Significant Other Household Members Other:: 1 Housing: Apartment Do you presently have visiting nurse or 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 If so, by whom?: No Do you feel safe in your current relationship?: Yes Is there a partner from a previous relationship who is making you feel unsafe now?: No Are you made to feel afraid or neglected: No Advance Directives: Yes Advance Directives on File: Yes Advance Directives Date on File: 01/25/22 Do you have thoughts of harming others: None Do you have a plan to hurt others: No Plan Recently lost weight without trying: No Nutrition Risks: No Nutritional Risk Patient : No service: No Current occupational status: disabled Meds Allergies Allergy/AdvReac Type Severity Reaction Status Date / Time pantoprazole Allergy Unknown Verified 03/26/23 22:29 Active Medications: Current Medications Acetaminophen (Acetaminophen 325 Mg Tablet) 975 mg PO Q6H PRN PRN Reason: Pain, Mild (Pain Scale 1-3) Albuterol/Ipratropium (Albuterol/Iprat 2.5/0.5mg 3 Ml Ampul.Neb) 3 ml INHALE Q4H [facility] Last Admin: 03/27/23 08:17 Dose: 3 ml Apixaban (Apixaban 5 Mg Tablet) 5 mg PO BID [facility] Last Admin: 03/27/23 08:16 Dose: 5 mg Atorvastatin Calcium (Atorvastatin Calcium 10 Mg Tablet) 10 mg PO DAILY [facility] Last Admin: 03/27/23 08:16 Dose: 10 mg Dextrose (Dextrose 50 % 25 Gm/50 Ml Syringe) 25 gm IVPUSH Q15M PRN; Protocol PRN Reason: per Hypoglycemia Standing Ord. Escitalopram Oxalate (Escitalopram Oxalate 20 Mg Tablet) 20 mg PO DAILY [facility] Last Admin: 03/27/23 08:16 Dose: 20 mg Glucose (Glucose Gel 15 Gm Gel..Gram.) 15 gm PO Q15M PRN; Protocol PRN Reason: per Hypoglycemia Standing Ord. Ceftriaxone Sodium 1 gm/ (Sodium Chloride) 50 mls @ 100 mls/hr IV DAILY [facility] Last Infusion: 03/27/23 09:02 Dose: Infused Doxycycline Hyclate 100 mg/ (Sodium Chloride) 250 mls @ 166.67 mls/hr IV Q12H [facility] Last Infusion: 03/27/23 09:59 Dose: Infused Insulin Glargine (Insulin Glargine,Hum.Rec.Anlog 100 Unit/Ml 10 Ml Vial) 12 unit SUBCUT BEDTIME [facility] Last Admin: 03/27/23 03:16 Dose: 12 unit Insulin Human Lispro (Insulin Lispro 100 Unit/Ml 3 Ml Vial) 0 unit SUBCUT QIDACHS [facility]; Protocol Last Admin: 03/27/23 08:16 Dose: 14 unit Lurasidone HCl (Lurasidone Hcl 20 Mg Tablet) 60 mg PO DAILY [facility] Last Admin: 03/27/23 08:36 Dose: 60 mg Metformin HCl (Metformin Hcl 1,000 Mg Tablet) 1,000 mg PO BIDWM [facility] Last Admin: 03/27/23 08:16 Dose: 1,000 mg Oxcarbazepine (Oxcarbazepine 300 Mg Tablet) 300 mg PO BID [facility] Last Admin: 03/27/23 08:16 Dose: 300 mg Oxycodone HCl (Oxycodone Hcl Immed Release 5 Mg Tablet) 5 mg PO Q6H PRN PRN Reason: Pain, Severe (Pain Scale 7-10) Last Admin: 03/27/23 01:40 Dose: 5 mg Sodium Chloride (0.9 % Sodium Chloride Flush 3 Ml Syringe) 3 ml IVFLUSH QSHIFT [facility] Last Admin: 03/27/23 07:12 Dose: Not Given Home Medications Medication Instructions Recorded Confirmed Last Taken Type albuterol sulfate 2.5 mg/3 mL 2.5 mg inhalation Q4H PRN wheezing 02/02/23 03/27/23 Unknown History (0.083 %) solution for nebulization albuterol sulfate 90 mcg/actuation 2 puff inhalation Q4H PRN wheezing 02/02/23 03/27/23 Unknown History aerosol inhaler (Ventolin HFA) apixaban 5 mg tablet (Eliquis) 5 mg PO BID 02/02/23 03/27/23 03/26/23 History atorvastatin 10 mg tablet 10 mg PO DAILY 02/02/23 03/27/23 03/26/23 History clonazepam 1 mg tablet 1 mg PO BID PRN Anxiety 02/02/23 03/27/23 Unknown History escitalopram oxalate 20 mg tablet 20 mg PO BEDTIME 02/02/23 03/27/23 03/26/23 History famotidine 20 mg tablet 20 mg PO BID 02/02/23 03/27/23 03/26/23 History fluticasone 500 mcg-salmeterol 50 1 ea inhalation BID 02/02/23 03/27/23 03/26/23 History mcg/dose blistr powdr for inhalation (Advair Diskus) fluticasone propionate 50 1 spray intranasal DAILY 02/02/23 03/27/23 03/26/23 History mcg/actuation nasal spray,suspension gabapentin 100 mg capsule 100 mg PO TID 02/02/23 03/27/23 03/26/23 History glipizide 5 mg tablet 5 mg PO DAILY 02/02/23 03/27/23 03/26/23 History insulin glargine 100 unit/mL (3 10 unit subcut DAILY 02/02/23 03/27/23 03/26/23 History mL) subcutaneous pen (Lantus Solostar U-100 Insulin) insulin lispro 100 unit/mL 1 sliding scale dose subcut TIDAC 02/02/23 03/27/23 03/26/23 History subcutaneous pen lurasidone 60 mg tablet 60 mg PO BEDTIME 02/02/23 03/27/23 03/26/23 History metformin 500 mg tablet,extended 1,000 mg PO BID 02/02/23 03/27/23 03/26/23 History release 24 hr oxcarbazepine 300 mg tablet 300 mg PO BID 02/02/23 03/27/23 03/26/23 History promethazine 25 mg tablet 25 mg PO DAILY PRN nausea 02/02/23 03/27/23 Unknown History tizanidine 4 mg tablet 4 mg PO DAILY PRN muscle spasm 02/02/23 03/27/23 Unknown History trazodone 150 mg tablet 150 mg PO BEDTIME PRN Sleep 02/02/23 03/27/23 Unknown History Physical Exam 2 Vital Signs: Vital Signs: Last Vital Signs Temp 96.8 F 03/27/23 08:00 Pulse 100 03/27/23 08:17 Resp 18 03/27/23 08:17 BP 120/67 03/27/23 08:00 Pulse Ox 97 03/27/23 08:00 O2 Del Method Nasal Cannula 03/27/23 08:00 O2 Flow Rate 1 03/27/23 08:00 BMI result Body Mass Index 36.4 Const: General: comfortable and no acute distress O rientation/consciousness: patient oriented x3 Limitations: no limitations HEENT: Head: Yes normal to inspection Neck: Neck: Yes normal visual inspection Chest: Chest palpation & inspection: normal inspection of the chest Resp: Effort & Inspection: normal respiratory effort Auscultation: rhonchi, wheezes and diminished lung sounds Cardio: Rate: regular rate Rhythm: regular rhythm GI: Palpation (GI): Soft to palpation Skin: General skin exam: no rashes or lesions noted Neuro: General: patient oriented x3 Extrem: General: Yes normal to inspection Results Laboratory Findings 03/27/23 06:32 03/27/23 06:32 Abnormal lab findings: Abnormal Labs 03/26/23 03/27/23 03/27/23 23:05 02:49 05:06 WBC 11.9 H Hgb 11.4 L Hct 36.4 L MCH 26.3 L MCHC MPV 9.2 L Immature Gran % (Auto) Neut % (Auto) 78.8 H Lymph % (Auto) 10.7 L [place] % (Auto) Eos % (Auto) 4.7 H Lymph # (Auto) [place] # (Auto) Eos # (Auto) 0.6 H Abs Immat Gran (auto) 0.05 H Absolute Neuts (auto) 9.4 H APTT 39.9 H D Sodium 134 L Chloride 94 L Carbon Dioxide 30 H Anion Gap BUN Creatinine POC Glucose 429 H* 495 H* Random Glucose 259 H Hemoglobin A1c % Alkaline Phosphatase 168 H 03/27/23 03/27/23 06:32 06:53 WBC Hgb 11.3 L Hct 36.7 L MCH 26.2 L MCHC 30.8 L MPV Immature Gran % (Auto) 0.8 H Neut % (Auto) 94.3 H Lymph % (Auto) 3.9 L [place] % (Auto) 0.5 L Eos % (Auto) Lymph # (Auto) 0.3 L [place] # (Auto) 0.0 L Eos # (Auto) Abs Immat Gran (auto) 0.06 H Absolute Neuts (auto) APTT Sodium Chloride Carbon Dioxide Anion Gap 22 H BUN 20 H Creatinine 1.42 H POC Glucose 420 H* Random Glucose 463 H* Hemoglobin A1c % 10.5 H Alkaline Phosphatase Assessment and Plan (1) Pneumonia: Qualifiers: Laterality: right Lung location: upper lobe of lung Pneumonia type: d ue to unspecified organism Qualified Code(s): J18.9 - Pneumonia, unspecified organism Status: Acute (2) Acute asthma exacerbation: Qualifiers: Asthma severity: moderate Asthma persistence: unspecified Qualified Code(s): J45.901 - Unspecified asthma with (acute) exacerbation Status: Acute Plan Continue Abx, switch ro Vantin/doxy to complete 8 days as outpt start Prednisone 40mg and would taper by 10mg every 3 days Nebulizer therapy Trach care needs outpt CXR in 3-4 weeks to make sure the RUL process is improving The patient is better from a pulmonary standpoint and would be able to continue her care at home when ever her other issues improve should call for a f/u with her [facility] in 2-3 weeks Procedures Date of Service Date of Service: 03/27/23
[2023-03-27 11:27] LABS: Glucose, Whole Blood 363 mg/dL (60-115)
--- NOTE | 2023-03-27 13:01 | MHC.CM.PN ---
Pt lives with spouse, Casimiro Reagan, who is also her HCP, copy is on file. She has FIELD ACCOUNT DIRECTOR services, no VNA. She said that her FIELD ACCOUNT DIRECTOR services are enough. For med equipment, she has home O2, a suction machine, aerosol for her trach, and she uses a cane for ambulation. Her can transport her home upon DC. PCP confirmed: Megan Cummings. CM to follow and assist with DC planning.
[2023-03-27] MEDS: 0.9 % Sodium Chloride 1,000 ML 500 ML IVCONT (13:34)
[2023-03-27] MEDS: glipiZIDE 5 MG TABLET PO (13:34)
[2023-03-27] MEDS: clonazePAM 1 MG TABLET PO (13:34)
[2023-03-27] MEDS: cefuroxime axetiL 500 MG TABLET PO (13:34)
[2023-03-27] MEDS: Doxycycline Monohydrate 100 MG CAPSULE PO (13:34)
[2023-03-27] MEDS: Gabapentin 100 MG CAPSULE PO (14:06)
[2023-03-27 16:05] LABS: Glucose, Whole Blood 261 mg/dL (60-115)
[2023-03-27] MEDS: Promethazine HCL 25 MG TABLET PO (16:27)
[2023-03-27 16:56] LABS: Blood Urea Nitrogen 18 mg/dL (9-16); Creatinine Clr Calc Pharmacy 62.4; Estimated Glomerular Filt Rate 50
--- NOTE | 2023-03-27 16:56 | PM.DS ---
DS: Providers Provider Date of Service: 03/27/23 Date of admission: 03/27/23 00:49 Date of discharge: 03/27/23 Primary care physician: Megan Cummings MD Consults: 03/27/23 03:29 Consult to Pulmonology Routine Consulting Provider: [facility] Reason for consultation: Respiratory failure, pneumonia Has provider been notified: No Attending physician on discharge: Neetu Cota Discharging clinician: Neetu Cota DS: Diagnosis Discharge Diagnosis (1) Pneumonia: Status: Acute (2) Acute asthma exacerbation: Status: Acute DS: Summary Hospital Course Hospital Course: 52 years old woman past medical history significant for obesity, type 2 diabetes, asthma/chronic respiratory failure w/ chronic tracheostomy -on home oxygen, bipolar disorder and takotsubo cardiomyopathy presents to the emergency department complaining of worsening shortness of breadth associated with productive sputum. She denies fever or chills. She also denied any chest pain, palpitations, headache or dizziness. She denied any acute gastrointestinal or genitourinary symptoms. She does complain of chronic low back pain. She denies tobacco smoking, alcohol abuse or illicit drug use. In the ED, she was found to have low oxygen saturation on room air (however patient states that she uses oxygen at home). She has slight tachycardia. She is currently requiring 2 liters/minutes supplemental oxygen via nasal cannula. Blood workup is remarkable for a slight leukocytosis and elevated. BNP is normal. There is significant hyperglycemia and CO2 is elevated. CXR showed RUL infiltrate. ED tx: DuoNeb, Solu-Medrol 125 mg IV x1, ceftriaxone 1 g IV, Zithromax 500 mg IV and morphine 4 mg IV for back pain. Hospital course: Patient was admitted for possible mild pneumonia and hypoxia as well as asthma exacerbation (mild intermittent asthma ): Patient was started on nebs, steroids, IV antibiotics seems to be improved, leukocytosis resolved, no fever no shortness of breath. seen by Pulmonary: Recommended-p.o. Antibiotics and steroids upon discharge: Patient has significant hyperglycemia will cut down prednisone 20 mg daily for 4 more days. DEBBIE: Possible related to dehydration, hyperglycemia: Improved with hydration, patient Lantus adjusted to 12 unit. Monitor fingersticks out patiently and further management and adjustment of insulin regimen outpatient with PCP. Patient was strongly advised to monitor fingersticks at home. Diabetic education given. In addition patient was strongly advised to and encouraged to p.o. hydration and intake. plan: Please complete Ceftin 500 mg and doxycycline 100 mg p.o. b.i.d. respectively for 7 days. Please repeat chest imaging in 3-4 weeks to see resolution of pneumonia. Patient was strongly advised for diabetic control, diabetic education given. Insulin adjusted as above. Above management discussed with the patient in detail length she understand and in agreement with the above plan.total time spent 50 min. Time Attestation Discharge coordination time: Greater than 30 minutes Quality: Safe Use of Opioids Does Pt have an Active Cancer Diagnosis on the Problem List?: No Quality: Stroke Does the patient have a stroke diagnosis?: No Physical Exam Vital Signs: Vital Signs: Last Vital Signs Temp 96.9 F 03/27/23 15:10 Pulse 98 03/27/23 15:48 Resp 18 03/27/23 15:48 BP 141/69 H 03/27/23 15:10 Pulse Ox 96 03/27/23 15:10 O2 Del Method Room Air 03/27/23 15:10 O2 Flow Rate 1 03/27/23 08:00 BMI result Body Mass Index 36.4 Appearance: Alert.? Oriented X3.? cvs: [id number], [id number] , no murmur res: clear to auscultation ,no rhonchii or wheezing abd: no rebound or guarding ,nt, bs present. ext pulses present , no cyanosis. neuro: axo3 , nonfocal. DS: Data Data Completed and Pending Completed studies during hospitalization [Text1]: Procedures Dilation of Left Ureter with Intraluminal Device, Via Natural or Artificial Opening Endoscopic (06/11/21) Fluoroscopy of Left Kidney, Ureter and Bladder (06/11/21) Labs on day of discharge: Laboratory Results - last 24 hr 03/26/23 03/27/23 03/27/23 23:05 02:49 05:06 WBC 11.9 H RBC 4.34 Hgb 11.4 L Hct 36.4 L MCV 83.9 MCH 26.3 L MCHC 31.3 RDW 14.4 Plt Count 320 D MPV 9.2 L Immature Gran % (Auto) 0.4 Neut % (Auto) 78.8 H Lymph % (Auto) 10.7 L [place] % (Auto) 5.1 Eos % (Auto) 4.7 H Baso % (Auto) 0.3 Lymph # (Auto) 1.3 [place] # (Auto) 0.6 Eos # (Auto) 0.6 H Baso # (Auto) 0.0 Abs Immat Gran (auto) 0.05 H Absolute Neuts (auto) 9.4 H Absolute Nucleated RBC 0.000 Nucleated RBC % (auto) 0.0 Smear Tech's Comments APTT 39.9 H D Sodium 134 L Potassium 4.4 Chloride 94 L Carbon Dioxide 30 H Anion Gap 14 BUN 16 Creatinine 1.19 Estim Creat Clear Calc 58.9 Estimated GFR 47 POC Glucose 429 H* 495 H* Random Glucose 259 H Estimat Average Glucose Hemoglobin A1c % Lactic Acid 1.9 Calcium 9.0 Total Bilirubin 0.2 AST 13 ALT 18 Alkaline Phosphatase 168 H B-Natriuretic Peptide 17 Total Protein 6.6 Albumin 3.5 Procalcitonin COVID-19 (PRETTY) Negative COVID-19 Clin Com See Note Influenza Type A (JOSE) Negative Influenza Type B (JOSE) Negative Influenza A & B Note See Note 03/27/23 03/27/23 03/27/23 06:32 06:53 11:12 WBC 7.9 RBC 4.31 Hgb 11.3 L Hct 36.7 L MCV 85.2 MCH 26.2 L MCHC 30.8 L RDW 14.2 Plt Count 269 MPV 9.9 Immature Gran % (Auto) 0.8 H Neut % (Auto) 94.3 H Lymph % (Auto) 3.9 L [place] % (Auto) 0.5 L Eos % (Auto) 0.1 Baso % (Auto) 0.4 Lymph # (Auto) 0.3 L [place] # (Auto) 0.0 L Eos # (Auto) 0.0 Baso # (Auto) 0.0 Abs Immat Gran (auto) 0.06 H Absolute Neuts (auto) 7.4 Absolute Nucleated RBC 0.000 Nucleated RBC % (auto) 0.0 Smear Tech's Comments VERIFIED APTT Sodium 135 Potassium 4.6 Chloride 96 Carbon Dioxide 22 Anion Gap 22 H BUN 20 H Creatinine 1.42 H Estim Creat Clear Calc 49.6 Estimated GFR 39 POC Glucose 420 H* 363 H* Random Glucose 463 H* Estimat Average Glucose 255 Hemoglobin A1c % 10.5 H Lactic Acid Calcium 9.3 Total Bilirubin AST ALT Alkaline Phosphatase B-Natriuretic Peptide Total Protein Albumin Procalcitonin 0.08 COVID-19 (PRETTY) COVID-19 Clin Com Influenza Type A (JOSE) Influenza Type B (JOSE) Influenza A & B Note 03/27/23 03/27/23 16:01 16:34 WBC RBC Hgb Hct MCV MCH MCHC RDW Plt Count MPV Immature Gran % (Auto) Neut % (Auto) Lymph % (Auto) [place] % (Auto) Eos % (Auto) Baso % (Auto) Lymph # (Auto) [place] # (Auto) Eos # (Auto) Baso # (Auto) Abs Immat Gran (auto) Absolute Neuts (auto) Absolute Nucleated RBC Nucleated RBC % (auto) Smear Tech's Comments APTT Sodium Potassium Chloride Carbon Dioxide Anion Gap BUN 18 H Creatinine 1.13 Estim Creat Clear Calc 62.4 Estimated GFR 50 POC Glucose 261 H Random Glucose Estimat Average Glucose Hemoglobin A1c % Lactic Acid Calcium Total Bilirubin AST ALT Alkaline Phosphatase B-Natriuretic Peptide Total Protein Albumin Procalcitonin COVID-19 (PRETTY) COVID-19 Clin Com Influenza Type A (JOSE) Influenza Type B (JOSE) Influenza A & B Note Imaging Chest x-ray: Radiologist's impression: ITS Impressions Chest X-Ray 03/26/23 23:20 IMPRESSION: 1. Patchy airspace opacity in the right upper lobe is slightly more pronounced as compared to prior and may correspond to pneumonia. 2. Bibasilar atelectasis. Discharge Plan Discharge Anticipated Discharge Date/Time: 03/27/23 16:50 Patient Disposition: Home, Self-Care Discharge Diagnosis: Mild pneumonia, asthma exacerbation Referrals: Megan Mosqueda MD [Primary Care Provider] - 1 Week Discharge Medications: New cefuroxime axetil 500 mg Tablet 500 mg PO Q12H Qty: 14 0RF doxycycline monohydrate 100 mg Capsule 100 mg PO Q12H Qty: 14 0RF Continued albuterol sulfate 2.5 mg /3 mL (0.083 %) solution for nebulization 2.5 mg inhalation Q4H PRN (Reason: wheezing) atorvastatin 10 mg tablet 10 mg PO DAILY tizanidine 4 mg tablet 4 mg PO DAILY PRN (Reason: muscle spasm) clonazepam 1 mg tablet 1 mg PO BID PRN (Reason: Anxiety) oxcarbazepine 300 mg tablet 300 mg PO BID famotidine 20 mg tablet 20 mg PO BID trazodone 150 mg tablet 150 mg PO BEDTIME PRN (Reason: Sleep) promethazine 25 mg tablet 25 mg PO DAILY PRN (Reason: nausea) fluticasone propion-salmeterol [Advair Diskus] 500-50 mcg/dose blister with device 1 ea INHALATION BID gabapentin 100 mg capsule 100 mg PO TID albuterol sulfate [Ventolin HFA] 90 mcg/actuation HFA aerosol inhaler 2 puff inhalation Q4H PRN (Reason: wheezing) fluticasone propionate 50 mcg/actuation spray,suspension 1 spray intranasal DAILY Rx Instructions: INHALE IN BOTH NOSTRILS metformin 500 mg tablet extended release 24 hr 1,000 mg PO BID glipizide 5 mg tablet 5 mg PO DAILY insulin lispro 100 unit/mL insulin pen 1 sliding scale dose subcut TIDAC escitalopram oxalate 20 mg tablet 20 mg PO BEDTIME Eliquis 5 mg tablet 5 mg PO BID lurasidone 60 mg tablet 60 mg PO BEDTIME Changed insulin glargine [Lantus Solostar U-100 Insulin] 100 unit/mL (3 mL) insulin pen 12 unit subcut DAILY Qty: 1 0RF Discharge Orders: Discharge Order (Routine); Ordered 03/27/23 Ordered By: Neetu Cota Diet: Advance to usual diet Activity on Discharge: As tolerated Stand Alone Forms: Patient Portal Discharge page Care Plan Goals: Patient was admitted for possible mild pneumonia and hypoxia as well as asthma exacerbation (mild intermittent asthma ): Patient was started on nebs, steroids, IV antibiotics seems to be improved, leukocytosis resolved, no fever no shortness of breath. seen by Pulmonary: Recommended-p.o. Antibiotics and steroids upon discharge: Patient has significant hyperglycemia will cut down prednisone 20 mg daily for 4 more days. DEBBIE: Possible related to dehydration, hyperglycemia: Improved with hydration, patient Lantus adjusted to 12 unit. Monitor fingersticks out patiently and further management and adjustment of insulin regimen outpatient with PCP. Patient was strongly advised to monitor fingersticks at home. Diabetic education given. In addition patient was strongly advised to and encouraged to p.o. hydration and intake. Above management discussed with the patient in detail length she understand and in agreement with the above plan. Health Concerns: As above. Plan of Treatment: Please complete Ceftin 500 mg and doxycycline 100 mg p.o. b.i.d. respectively for 7 days. Please repeat chest imaging in 3-4 weeks to see resolution of pneumonia. Patient was strongly advised for diabetic control, diabetic education given. Insulin adjusted as above. Assessment: As above. Patient Instructions: Pneumonia (DC)
[2023-03-29 06:49] LABS: Glucose, Whole Blood > 600 mg/dL (60-115)
== END 2023-03-27 19:34 | disposition home or self-care (01) | DRG 139 ==
LOC: HO.ED 03-27 00:26 → HO.EDOVER 03-27 00:57 → HO.IMC 03-27 01:13
PROVIDERS: Admitting Provider Internal Medicine; Emergency Provider Emergency Medicine Emergency Medical Services; PCP Internal Medicine; Visit Provider Internal Medicine
DX: J18.9 Pneumonia, unspecified organism (principal); J96.10 Chronic respiratory failure, unspecified whether with hypoxia or hypercapnia; Z99.81 Dependence on supplemental oxygen; Z93.0 Tracheostomy status; J45.21 Mild intermittent asthma with (acute) exacerbation; D64.9 Anemia, unspecified; E11.65 Type 2 diabetes mellitus with hyperglycemia; E66.9 Obesity, unspecified; F31.9 Bipolar disorder, unspecified; E78.5 Hyperlipidemia, unspecified; G89.29 Other chronic pain; Z20.822 Contact with and (suspected) exposure to COVID-19; E86.0 Dehydration; Z86.711 Personal history of pulmonary embolism; Z68.36 Body mass index [BMI] 36.0-36.9, adult; Z79.4 Long term (current) use of insulin; Z79.01 Long term (current) use of anticoagulants; Z79.51 Long term (current) use of inhaled steroids; Z79.84 Long term (current) use of oral hypoglycemic drugs; Z79.899 Other long term (current) drug therapy
CPT/HCPCS: 36415; 71045; 80048; 80053; 82565; 82947; 83036; 83605; 83880; 84145; 84520; 85025; 85730; 87040; 87502; 87635; 94640; 99285; J0456; J0696; J2270; J2930

== ENCOUNTER → 2023-03-27 00:49 | Outpatient (BNV) | payer OTHER, SELFPAY | PROVIDERS: Admitting Provider Internal Medicine; Emergency Provider Emergency Medicine Emergency Medical Services; PCP Internal Medicine; Visit Provider Hospitalist | DX: J18.9 Pneumonia, unspecified organism (principal); J45.901 Unspecified asthma with (acute) exacerbation | CPT/HCPCS: 99223 ==

== ENCOUNTER → 2023-03-27 00:49 | Outpatient (BNV) | payer OTHER, SELFPAY | PROVIDERS: Admitting Provider Internal Medicine; Emergency Provider Emergency Medicine Emergency Medical Services; PCP Internal Medicine; Visit Provider Internal Medicine | DX: J18.9 Pneumonia, unspecified organism (principal); E11.65 Type 2 diabetes mellitus with hyperglycemia; Z79.4 Long term (current) use of insulin | CPT/HCPCS: 99236; 99499 ==

== ENCOUNTER 2023-04-30 19:48 | Inpatient (IN) | payer OTHER, SELFPAY ==
--- NOTE | ~2023-04-30 | CT_ITS ---
EXAMINATION: CT ANGIOGRAM OF THE CHEST WITH AND WITHOUT CONTRAST (CT PULMONARY ANGIOGRAM FOR PE) CLINICAL INFORMATION: Reason for Exam Hypoxia COMPARISON: 12/21/2022 TECHNIQUE: Prior to contrast administration, noncontrast localization images were obtained. Subsequently, multidetector volumetric imaging was performed from the thoracic inlet to below the diaphragms following the administration of 65 mL Omnipaque 350 intravenous contrast. No contrast reaction reported Sagittal, coronal, and MIP oblique sagittal reformatted images were obtained on the CT workstation, uploaded to PACS, and reviewed. This CT examination was performed using dose optimization techniques as appropriate, variously including the following: *Automated exposure control *Adjustment of mA and/or kV according to patient size (this includes techniques or standardized protocols for targeted exams where dose is matched to indication/reason for exam; i.e. extremities or head) *Use of iterative reconstruction technique Total exam dose-length product 479 mGy-cm FINDINGS: QUALITY OF STUDY/CONTRAST BOLUS: Suboptimal. PULMONARY ARTERIES: No central or proximal segmental pulmonary embolus is seen. Evaluation of the more distal vasculature is limited in some regions due to respiratory motion artifact. THORACIC AORTA: Suboptimally assessed ascending aorta due to motion artifact. Remainder of the thoracic aorta appears unremarkable. LUNG: Tracheostomy tube is present. There are moderately extensive regions of consolidation in the basilar lower lobes, which could be due to multifocal pneumonia versus sequelae of aspiration. PLEURA: No pleural effusion or pneumothorax. MEDIASTINUM: Thyroid gland appears grossly unremarkable. There are mildly enlarged right paratracheal lymph nodes which overall appear mildly increased in prominence from prior. Mild cardiomegaly without pericardial effusion. CORONARY ARTERY CALCIFICATION: None visualized on this study. CHEST WALL/AXILLA: No axillary or internal mammary lymphadenopathy. OSSEOUS STRUCTURES: Multilevel degenerative endplate changes in the spine. Few chronic appearing rib deformities noted bilaterally. UPPER ABDOMEN: Partially visualized ventral hernia, more fully seen on prior abdominal CT. No reflux of contrast into the hepatic veins to suggest elevated right heart pressures. CT/CT angio chest PE protocol IMPRESSION: 1. No central or proximal segmental pulmonary embolus identified. Evaluation of the more distal vasculature is limited in some regions due to respiratory motion artifact. 2. Moderately extensive regions of consolidation in the basilar lower lobes, which could be due to multifocal pneumonia versus sequelae of aspiration. Imaging follow-up would be helpful to assess for resolution. 3. Mildly enlarged right paratracheal lymph nodes, which may be reactive given the pulmonary findings. VTE: negative.
--- NOTE | ~2023-04-30 | XR_ITS ---
EXAMINATION: PORTABLE CHEST 1 VIEW CLINICAL INFORMATION: cough, sob. COMPARISON: 03/26/2023. TECHNIQUE: Portable frontal view of the chest was obtained. FINDINGS: Midline tracheostomy tube is again noted. Increased bibasilar markings more likely reflect component of atelectasis. There is peribronchial cuffing seen bilaterally suggesting underlying reactive or small airways disease. No dense consolidation. Tiny effusions likely present. No overt edema. Cardiac and mediastinal silhouettes within normal limits for size. XR/XR chest 1V IMPRESSION: Tracheostomy tube. Peribronchial cuffing suggesting underlying reactive or small airways disease. No dense consolidation. Bibasilar markings more likely reflect component of atelectasis.
--- NOTE | 2023-04-30 19:52 | ED_ITS ---
HPI - SOB/Dyspnea General Chief Complaint: Dyspnea Stated Complaint: sob,dizziness Time Seen by Provider: 04/30/23 20:32 Source: patient, family, RN notes reviewed and old records reviewed Mode of arrival: ambulatory Limitations: no limitations History of Present Illness HPI Narrative: 52-year-old female with past medical history significant for diabetes, respiratory failure status post tracheostomy placement, asthma, obesity presents for evaluation of shortness of breath Patient reports not feeling well for the last few days. She is found to be hypoxic to 80% on room air. The patient does use oxygen up to 4 L nasal cannula at home. She is febrile to 103 and reports subjective fevers and chills Denies any known sick contacts Reports generalized body aches and right-sided chest pain with deep inspiration She has a history of PE and is maintained on Eliquis and reports that she has been compliant without missing any doses Related Data Home Medications Medication Instructions Recorded Confirmed albuterol sulfate 2.5 mg/3 mL 2.5 mg inhalation Q4H PRN wheezing 02/02/23 03/27/23 (0.083 %) solution for nebulization albuterol sulfate 90 mcg/actuation 2 puff inhalation Q4H PRN wheezing 02/02/23 03/27/23 aerosol inhaler (Ventolin HFA) apixaban 5 mg tablet (Eliquis) 5 mg PO BID 02/02/23 03/27/23 atorvastatin 10 mg tablet 10 mg PO DAILY 02/02/23 03/27/23 clonazepam 1 mg tablet 1 mg PO BID PRN Anxiety 02/02/23 03/27/23 escitalopram oxalate 20 mg tablet 20 mg PO BEDTIME 02/02/23 03/27/23 famotidine 20 mg tablet 20 mg PO BID 02/02/23 03/27/23 fluticasone 500 mcg-salmeterol 50 1 ea inhalation BID 02/02/23 03/27/23 mcg/dose blistr powdr for inhalation (Advair Diskus) fluticasone propionate 50 1 spray intranasal DAILY 02/02/23 03/27/23 mcg/actuation nasal spray,suspension gabapentin 100 mg capsule 100 mg PO TID 02/02/23 03/27/23 glipizide 5 mg tablet 5 mg PO DAILY 02/02/23 03/27/23 insulin lispro 100 unit/mL 1 sliding scale dose subcut TIDAC 02/02/23 03/27/23 subcutaneous pen lurasidone 60 mg tablet 60 mg PO BEDTIME 02/02/23 03/27/23 metformin 500 mg tablet,extended 1,000 mg PO BID 02/02/23 03/27/23 release 24 hr oxcarbazepine 300 mg tablet 300 mg PO BID 02/02/23 03/27/23 promethazine 25 mg tablet 25 mg PO DAILY PRN nausea 02/02/23 03/27/23 tizanidine 4 mg tablet 4 mg PO DAILY PRN muscle spasm 02/02/23 03/27/23 trazodone 150 mg tablet 150 mg PO BEDTIME PRN Sleep 02/02/23 03/27/23 Previous Rx's Medication Instructions Recorded cefuroxime axetil 500 mg tablet 500 mg PO Q12H #14 tabs 03/27/23 doxycycline monohydrate 100 mg 100 mg PO Q12H #14 caps 03/27/23 capsule insulin glargine 100 unit/mL (3 12 unit (0.12 mL) subcut DAILY #1 03/27/23 mL) subcutaneous pen (Lantus mL Solostar U-100 Insulin) prednisone 20 mg tablet 20 mg PO DAILY #4 tabs 03/27/23 Allergies Allergy/AdvReac Type Severity Reaction Status Date / Time pantoprazole Allergy Unknown Verified 03/26/23 22:29 Review of Systems 2 Constitutional: Constitutional: Reports body ache(s), Reports chills, Reports fever(s), Denies headache(s), Reports malaise and Reports weakness Eyes: Eyes: Denies blurry vision ENT: Denies vertigo and Denies headache(s) Cardiovascular: Cardiovascular: Reports chest pain (Only with inspiration), Denies chest pain at rest and Reports dyspnea Respiratory: Respiratory: Reports chest congestion, Reports cough, Reports pain on inspiration and Reports dyspnea Gastrointestinal: Gastrointestinal: Denies abdominal pain Musculoskeletal: Musculoskeletal: Denies back pain Integumentary/Breasts: Skin/Breast: Denies rash Neurologic: Denies vertigo, Denies headache(s) and Reports weakness PMFSH Past Medical History Medical History History of cardiac arrest Wound drainage Takotsubo cardiomyopathy Kidney stones UTI (urinary tract infection) Bipolar 1 disorder Diabetes Asthma Substance abuse Surgical History S/P ureteral stent placement H/O exploratory laparotomy S/P cholecystectomy Family History Family History Mother No pertinent family history Father No pertinent family history Social History Social History Household Members: Significant Other Household Members Other:: 1 Housing: Apartment Do you presently have 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) Alcohol intake: never Comment: stayed in ed Patient Tobacco Use Status: Never used Tobacco Smoked in Last 30 Days: No Second Hand Smoke Exposure: Yes Advance Directives: Yes Advance Directives on File: Yes Advance Directives Date on File: 01/25/22 service: No Current occupational status: disabled Physical Exam 2 Vital Signs: Vital Signs: Last Vital Signs Temp 99.9 F 04/30/23 22:20 Pulse 94 04/30/23 22:20 Resp 19 04/30/23 22:20 BP 90/48 L 04/30/23 22:20 Pulse Ox 96 04/30/23 22:20 O2 Del Method Nasal Cannula 04/30/23 22:20 O2 Flow Rate 4 04/30/23 22:20 BMI result Body Mass Index 36.4 Const: General: healthy appearing, comfortable, no acute distress, alert and awake Nutritional Appearance: well nourished HEENT: Head: Yes normocephalic and Yes atraumatic Eyes: Eyelids: Yes eyelids normal Conjunctivae: conjunctivae normal S clerae: sclerae normal Corneas: corneas normal Pupils: Equal, round and reactive pupils present EOM: EOMs intact bilaterally Neck: Neck: Yes full ROM Resp: Other: Increased respiratory effort, diffuse expiratory wheezing Effort & Inspection: abnormal respiratory effort Cardio: Other: No significant pitting edema Rate: regular rate Rhythm: regular rhythm GI: Inspection: No distended Palpation (GI): Soft to palpation, not firm, nontender, no guarding and not rigid Skin: General skin exam: elasticity normal Neuro: Cranial nerves: Yes Equal, round and reactive pupils present and Yes Bilaterally intact EOM present Cognition (Neuro): normal cognition Course Course Course Narrative: RME: 52 year-old F w/ PMHx Bipolar, asthma, DM, Tak[place] cardiomyopathy, cardiac arrest 2020 with prolonged intubation requiring tracheostomy, on Eliquis presenting to the ED c/o subjective fever & SOB x few days w/dry cough. Has been using inhalers w/ some relief. Denies CP. Took Tylenol early this AM Febrile 103.1 in triage, satting 80% on RA, tachycardic. Patient brought back to main ED immediately, sepsis protocol initiated EKG, Labs, Viral testing, ED Bronch protocol, CXR ordered Full HPI, ROS and PE to be performed by primary ED provider. Reevaluation(s) Reevaluation #1: Discussed with Cardiology, Dr. Ledesma who given the T-wave inversions in AVR and the patient's elevated troponin 2/900. He recommends testing and treated for flu/COVID, do not start heparin at this time. He also recommends having a low threshold for CTA despite the previous anticoagulation Eliquis. Time: 21:13 Reevaluation #2: Patient received a 2 L of IV fluid as her blood pressure was noted to be low at 90/48. Time: 22:54 Medications Administered Discontinued Medications Generic Name Dose Route Start Last Admin Trade Name Freq PRN Reason Stop Dose Admin Acetaminophen 975 mg 04/30/23 19:56 04/30/23 20:11 Acetaminophen 325 Mg Tablet PO 04/30/23 19:57 975 mg ONCE ONE Administration Acetaminophen 975 mg 04/30/23 20:43 04/30/23 21:00 Acetaminophen 325 Mg Tablet PO 04/30/23 20:44 Not Given ONCE ONE Fentanyl 50 mcg 04/30/23 22:28 04/30/23 22:44 Fentanyl Citrate/Pf 100 Mcg/2 Ml Vial IVPUSH 04/30/23 22:29 50 mcg ONCE ONE Administration Protocol Sodium Chloride 1,000 mls @ 999 mls/hr 04/30/23 20:45 04/30/23 22:06 Ns IV 04/30/23 21:45 Infused .Q1H1M RILEY Infusion Promethazine HCl 12.5 mg/ 50.5 mls @ 202 mls/hr 04/30/23 20:41 04/30/23 21:32 Sodium Chloride IV 04/30/23 20:42 Infused ONCE ONE Infusion Magnesium Sulfate 2 gm in 50 mls @ 150 mls/hr 04/30/23 20:43 04/30/23 21:32 Magnesium Sulfate/H2o IV 04/30/23 21:02 Infused ONCE ONE Infusion Cefepime HCl 2 gm/ Sodium 50 mls @ 100 mls/hr 04/30/23 20:53 04/30/23 21:28 Chloride IV 04/30/23 21:22 Infused ONCE ONE Infusion Sodium Chloride 1,000 mls @ 999 mls/hr 04/30/23 22:30 04/30/23 22:35 Ns IV 04/30/23 23:30 999 mls/hr .Q1H1M RILEY Administration Iohexol 65 ml 04/30/23 23:42 04/30/23 23:43 Iohexol 350 Mg/Ml 100 Ml Infus..Btl IV 04/30/23 23:43 65 ml ONCE ONE Administration Methylprednisolone Sodium Succinate 125 mg 04/30/23 20:41 04/30/23 20:59 Methylprednisolone Sod Succ 125 Mg/2 Ml Vial IVPUSH 04/30/23 20:42 125 mg ONCE ONE Administration Medical Decision Making Medical Decision Making [facility] Narrative: Patient presents hypoxic, febrile, tachycardic. She is normotensive at the time of presentation. Sepsis alert was called. Given the hypoxia and right-sided chest pain with inspiration, it was favored that pneumonia was most likely cause. The patient was recently admitted for pneumonia about a month ago. The patient received IV fluids 1 L initially. She received broad-spectrum antibiotics with cefepime. She received Solu-Medrol due to history of asthma and wheezing on exam. Workup pending at this time. She does not meet criteria for severe sepsis as she has not been hypotensive and her lactate was less than 4 Differential Diagnosis Differential Diagnoses: The differential diagnosis associated with the presentation includes Pneumonia Sepsis Influenza COVID-19 PE Admission/Observation Consideration of admission/observation: Escalation of care including admission/observation considered Patient was hypoxic to 80% on her baseline oxygen, she will require admission for respiratory support Consult Healthcare Provider Management of the patient was discussed with: Patch Machine Operator (Cardiology) Lab Data [facility] Lab Attestation statement: I reviewed the patient's lab results. Leukocytosis to 13.4 K. mild anemia with a hemoglobin 11.6. Normal hematocrit 37.0. Normal platelet count. Patient has a pseudo hyponatremia which is normal when corrected for the glucose of 426. Chloride of 91 with a CO2 of 28. Mild DEBBIE with a BUN of 22 and a creatinine of 1.29. Patient's glucose is again, elevated to 426 but no evidence of DKA 04/30/23 20:14 04/30/23 20:14 Labs: Lab Results 04/30/23 04/30/23 Range/Units 20:14 22:42 WBC 13.4 H (4.8-10.8) X10*3/uL RBC 4.41 (4.20-5.50) X10*6/uL Hgb 11.6 L (12.0-16.0) g/dl Hct 37.0 (37.0-47.0) % MCV 83.9 (80.0-98.0) fL MCH 26.3 L (27.0-33.0) pg MCHC 31.4 (31.0-35.0) g/dl RDW 14.0 (11.0-16.0) % Plt Count 292 (160-400) X10*3/uL MPV 8.9 L (9.4-12.3) fL Immature Gran % (Auto) Cancelled Neut % (Auto) Cancelled Lymph % (Auto) Cancelled Garvin % (Auto) Cancelled Eos % (Auto) Cancelled Baso % (Auto) Cancelled Lymph # (Auto) Cancelled Garvin # (Auto) Cancelled Eos # (Auto) Cancelled Baso # (Auto) Cancelled Abs Immat Gran (auto) Cancelled Absolute Neuts (auto) Cancelled Absolute Nucleated RBC 0.000 (0.0-0.012) X10*3/uL Nucleated RBC % (auto) 0.0 (0.0-0.2) /100WBC Neutrophils % (Manual) 77 H (45-73) % Band Neutrophils % 9 H (3-5) % Lymphocytes % (Manual) 7 L (20-40) % Monocytes % (Manual) 4 (2-11) % Metamyelocytes % 3 % Abs Neuts (Manual) 11.5 H (2.0-8.3) X10*3/uL Lymphocytes # (Manual) 0.9 L (1.2-4.9) X10*3/uL Monocytes # (Manual) 0.5 (0.1-1.2) X10*3/uL Metamyelocytes # 0.4 X10*3/uL Platelet Estimate NORMAL (NORMAL) Plt Morphology Comment NORMAL RBC Morphology NOTED Polychromasia 1+ (0-2) /OIF Ovalocytes 1+ (5-14) /OIF Smear Tech's Comments MANUAL DIFF PT 15.6 H (11.1-13.3) SEC INR 1.3 H (0.9-1.1) Sodium 130 L (135-145) mmol/L Potassium 4.7 (3.3-5.1) mmol/L Chloride 91 L (96-108) mmol/L Carbon Dioxide 28 (22-29) mmol/L Anion Gap 16 (12-20) BUN 22 H (9-16) mg/dL Creatinine 1.29 (0.5-1.4) mg/dL Estim Creat Clear Calc 54.7 Estimated GFR 43 Random Glucose 426 H* (60-115) mg/dL Lactic Acid 2.9 H* (0.5-2.0) mmol/L Lactic Acid F/U @ 2Hr 1.3 (0.5-2.0) mmol/L Calcium 8.8 (8.4-10.2) mg/dL Magnesium 1.4 L* (1.6-2.6) mg/dL Total Bilirubin 0.4 (0.0-1.0) mg/dL Direct Bilirubin 0.2 (0.0-0.5) mg/dL AST 35 H (5-31) U/L ALT 33 H (0-31) U/L Alkaline Phosphatase 204 H (39-117) U/L Troponin I High Sens 912.3 H* D 1252.6 H* (<3.5-17.0) ng/L B-Natriuretic Peptide 51 (<100) pg/mL Total Protein 7.3 (6.5-8.0) g/dL Albumin 3.7 (3.5-5.0) g/dL Influenza Type A (PCR) NEGATIVE (Negative) Influenza Type B (PCR) NEGATIVE (Negative) RSV RNA Qual (PCR) NEGATIVE (Negative) SARS-CoV-2 RNA (RT-PCR) POSITIVE A (Negative) Independent Interpretation I performed an independent interpretation of an: Plain X-Ray (No focal infiltrates. Specifically improved right upper lung infiltrate compared to 1 month ago) Radiology Impression Discussion of test interpretation with radiology: I have reviewed the radiologist's reading. (Tracheostomy 2 peribronchial cuffing suggesting underlying reactive small airway disease. No dense consolidation) Discharge Plan Discharge Clinical Impression: COVID-19, Sepsis Patient Disposition: Still a Patient Prescriptions: No Action albuterol sulfate 2.5 mg /3 mL (0.083 %) solution for nebulization 2.5 mg inhalation Q4H PRN (Reason: wheezing) atorvastatin 10 mg tablet 10 mg PO DAILY tizanidine 4 mg tablet 4 mg PO DAILY PRN (Reason: muscle spasm) clonazepam 1 mg tablet 1 mg PO BID PRN (Reason: Anxiety) oxcarbazepine 300 mg tablet 300 mg PO BID famotidine 20 mg tablet 20 mg PO BID trazodone 150 mg tablet 150 mg PO BEDTIME PRN (Reason: Sleep) promethazine 25 mg tablet 25 mg PO DAILY PRN (Reason: nausea) fluticasone propion-salmeterol [Advair Diskus] 500-50 mcg/dose blister with device 1 ea INHALATION BID gabapentin 100 mg capsule 100 mg PO TID albuterol sulfate [Ventolin HFA] 90 mcg/actuation HFA aerosol inhaler 2 puff inhalation Q4H PRN (Reason: wheezing) fluticasone propionate 50 mcg/actuation spray,suspension 1 spray intranasal DAILY Rx Instructions: INHALE IN BOTH NOSTRILS metformin 500 mg tablet extended release 24 hr 1,000 mg PO BID glipizide 5 mg tablet 5 mg PO DAILY insulin lispro 100 unit/mL insulin pen 1 sliding scale dose subcut TIDAC escitalopram oxalate 20 mg tablet 20 mg PO BEDTIME Eliquis 5 mg tablet 5 mg PO BID lurasidone 60 mg tablet 60 mg PO BEDTIME doxycycline monohydrate 100 mg Capsule 100 mg PO Q12H Qty: 14 0RF cefuroxime axetil 500 mg Tablet 500 mg PO Q12H Qty: 14 0RF insulin glargine [Lantus Solostar U-100 Insulin] 100 unit/mL (3 mL) insulin pen 12 unit subcut DAILY Qty: 1 0RF prednisone 20 mg tablet 20 mg PO DAILY Qty: 4 0RF
--- NOTE | 2023-04-30 19:55 | ECG_ITS ---
Test Reason : SEPTIC Blood Pressure : / mmHG Vent. Rate : 114 BPM Atrial Rate : 114 BPM P-R Int : 148 ms QRS Dur : 080 ms QT Int : 346 ms P-R-T Axes : 048 -04 033 degrees QTc Int : 476 ms Sinus tachycardia Cannot rule out Anterior infarct (cited on or before 02-FEB-2023) Abnormal ECG When compared with ECG of 02-FEB-2023 00:20, Nonspecific T wave abnormality no longer evident in Anterior leads Referred By: Jolly Chavez Electronically Signed By:Skip Ledesma
[2023-04-30] MEDS: Acetaminophen 325 MG TABLET 975 MG PO (20:11)
[2023-04-30 20:20] VITALS: BP 143/87; PULSE 126; RESP 16; TEMP 39.5; O2SAT 80; BMI 36.4
[2023-04-30 20:23] LABS: Hemoglobin 11.6 g/dl (12.0-16.0); Mean Corpuscular HGB Conc 31.4 g/dl (31.0-35.0); Mean Corpuscular Hemoglobin 26.3 pg (27.0-33.0); Mean Corpuscular Volume 83.9 fL (80.0-98.0); Mean Platelet Volume 8.9 fL (9.4-12.3); Platelet Count 292 X10*3/uL (160-400); Red Blood Count 4.41 X10*6/uL (4.20-5.50); White Blood Count 13.4 X10*3/uL (4.8-10.8)
[2023-04-30 20:27] VITALS: O2SAT 93
[2023-04-30 20:30] VITALS: PULSE 106; RESP 28
[2023-04-30 20:30] LABS: INTERNATIONAL NORM RATIO 1.3 (0.9-1.1); Prothrombin Time 15.6 SEC (11.1-13.3)
[2023-04-30 20:36] LABS: Lactic Acid 2.9 mmol/L (0.5-2.0)
--- NOTE | 2023-04-30 20:36 | PC.NURSE ---
pt refusing neb treatment to respiratory. awaiting second blood cultures.
[2023-04-30 20:41] LABS: Alanine Aminotransferase 33 U/L (0-31); Albumin Level 3.7 g/dL (3.5-5.0); Alkaline Phosphatase 204 U/L (39-117); Anion Gap 16 (12-20); Aspartate Amino Transferase 35 U/L (5-31); Bilirubin Direct 0.2 mg/dL (0.0-0.5); Bilirubin Total 0.4 mg/dL (0.0-1.0); Blood Urea Nitrogen 22 mg/dL (9-16); Calcium 8.8 mg/dL (8.4-10.2); Carbon Dioxide 28 mmol/L (22-29); Chloride 91 mmol/L (96-108); Creatinine Clr Calc Pharmacy 54.7; Estimated Glomerular Filt Rate 43; Glucose Random 426 mg/dL (60-115); Magnesium 1.4 mg/dL (1.6-2.6); Potassium 4.7 mmol/L (3.3-5.1); Sodium 130 mmol/L (135-145); Total Protein 7.3 g/dL (6.5-8.0)
[2023-04-30 20:42] LABS: B Type Natriuretic Peptide 51 pg/mL (<100)
[2023-04-30 20:47] LABS: Troponin-I High Sensitivity 912.3 ng/L (<3.5-17.0)
[2023-04-30] MEDS: cefEPime HCl 2 GM in 0.9 % Sodium Chloride 50 ML IV (20:58)
[2023-04-30] MEDS: 0.9 % Sodium Chloride 1,000 ML 999 ML IV ×2 (20:58→22:35)
[2023-04-30] MEDS: Magnesium Sulfate/H2O 2 GM/50 ML PIGGYBACK IV (20:59)
[2023-04-30] MEDS: methylPREDNISolone Sod Succ 125 MG/2 ML VIAL IVPUSH (20:59)
[2023-04-30 21:18] LABS: SLIDE REVIEW MANUAL DIFF
[2023-04-30 21:25] LABS: Band Neutrophils Percent 9 % (3-5); Lymphocytes Absolute Manual 0.9 X10*3/uL (1.2-4.9); Lymphocytes Percent Manual 7 % (20-40); Metamyelocytes Absolute 0.4 X10*3/uL; Metamyelocytes Percent 3 %; Monocytes Absolute Manual 0.5 X10*3/uL (0.1-1.2); Monocytes Percent Manual 4 % (2-11); Neutrophils Absolute Manual 11.5 X10*3/uL (2.0-8.3); Neutrophils Percent Manual 77 % (45-73)
[2023-04-30 21:28] LABS: Ovalocytes 1+ (5-14) /OIF; Polychromasia 1+ (0-2) /OIF; RBC Morphology NOTED
--- NOTE | 2023-04-30 21:29 | PC.NURSE ---
2nd iv eestablished. ivf and abx infusing. sepsis protocol initiated at 2017. nad. sats 94% on 4L NC. ice packs given to reduce fever pt appeared diaphoretic. purewick provided as pt sats drop with movement. pt placed on monitor on arrival 109 bpm now sinus tachy. daughter at bedside. call aaron within reach.
[2023-04-30 21:30] LABS: Platelet Estimate NORMAL (NORMAL); Platelet Morphology Comment NORMAL
--- NOTE | 2023-04-30 21:35 | PC.NURSE ---
pt now in agreement for breathing treatment. respiratory notified.
[2023-04-30 21:41] LABS: Influenza A PCR NEGATIVE (Negative); Influenza B PCR NEGATIVE (Negative); Resp Syncy Virus RNA Qual PCR NEGATIVE (Negative); SARS COV2 PCR INHOUSE POSITIVE (Negative)
[2023-04-30 22:06] VITALS: BP 101/49; PULSE 95; RESP 20; O2SAT 95
[2023-04-30 22:19] LABS: Reflex Lactate? Lactic Acid Added
[2023-04-30 22:20] VITALS: BP 90/48; PULSE 94; RESP 19; TEMP 37.7; O2SAT 96
[2023-04-30] MEDS: fentaNYL citrate/PF 100 MCG/2 ML VIAL 50 MCG IVPUSH (22:44)
[2023-04-30 23:00] LABS: ~Lactic Acid-LAB USE ONLY 1.3 mmol/L (0.5-2.0)
[2023-04-30 23:16] LABS: Troponin-I High Sensitivity 1252.6 ng/L (<3.5-17.0)
[2023-04-30] MEDS: iohexoL 350 MG/ML 100 ML INFUS..BTL 65 ML IV (23:43)
[2023-04-30 23:47] VITALS: BP 97/58; PULSE 81; RESP 14; O2SAT 98
--- NOTE | 2023-04-30 23:48 | PC.NURSE ---
pt return from ct scan now delay in fluid admin d/t being in ct scan.
[2023-05-01] VITALS (11 sets, daily range): BP systolic 96–114; BP diastolic 51–70; PULSE 61–83; RESP 12–20; TEMP 36.3–36.9; O2SAT 91–99; BMI 39.6
--- NOTE | 2023-05-01 00:35 | PM.IMHP ---
History of Present Illness Date of Service: 05/01/23 Chief Complaint: Dyspnea This is a 52-year-old female with pertinent history of essential hypertension, insulin-dependent diabetes mellitus, chronic hypoxemic respiratory failure on trach collar due to asthma, mixed hyperlipidemia, mood disorder, history of PE on Eliquis who presents to the emergency department for evaluation of dyspnea. Patient states her symptoms started 2 days prior to presentation. She uses 2 L supplemental oxygen at baseline as needed. Patient states she has been feeling short of breath on her home O2. Also has associated productive cough and wheezing. Does endorse subjective fever and chills. Also has pleuritic chest discomfort. No palpitations, abdominal pain, changes in urinary or bowel habits. Patient denies concern for aspiration or coughing with food. In the emergency department, patient was found to be septic. Imaging concerning for multilobar pneumonia. Patient requiring 4 L supplemental oxygen and tested positive for COVID-19. Review of Systems Constitutional: Constitutional: Reports chills and Reports fever(s) Cardiovascular: Cardiovascular: Reports dyspnea on exertion Respiratory: Respiratory: Reports cough, Reports dyspnea on exertion and Reports wheezing Gastrointestinal: Gastrointestinal: Reports no additional gastrointestinal complaints Genitourinary: Genitourinary: Reports no additional female genitourinary complaints Allergic/Immunologic: Allergic/Immunologic: Reports wheezing [facility] Medical History History of cardiac arrest Wound drainage Takotsubo cardiomyopathy Kidney stones UTI (urinary tract infection) Bipolar 1 disorder Diabetes Asthma Substance abuse Family History Mother No pertinent family history Father No pertinent family history Surgical History S/P ureteral stent placement H/O exploratory laparotomy S/P cholecystectomy Social History Household Members: Significant Other Household Members Other:: 1 Housing: Apartment Do you presently have visiting nurse or other home services: 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) Alcohol intake: never Comment: stayed in ed Patient Tobacco Use Status: Never used Tobacco Smoked in Last 30 Days: No Second Hand Smoke Exposure: Yes Advance Directives: Yes Advance Directives on File: Yes Advance Directives Date on File: 01/25/22 service: No Current occupational status: disabled Meds Allergies Allergy/AdvReac Type Severity Reaction Status Date / Time pantoprazole Allergy Unknown Verified 03/26/23 22:29 Home Medications Medication Instructions Recorded Confirmed Last Taken Type albuterol sulfate 2.5 mg/3 mL 2.5 mg inhalation Q4H PRN wheezing 02/02/23 03/27/23 Unknown History (0.083 %) solution for nebulization albuterol sulfate 90 mcg/actuation 2 puff inhalation Q4H PRN wheezing 02/02/23 03/27/23 Unknown History aerosol inhaler (Ventolin HFA) apixaban 5 mg tablet (Eliquis) 5 mg PO BID 02/02/23 03/27/23 03/26/23 History atorvastatin 10 mg tablet 10 mg PO DAILY 02/02/23 03/27/23 03/26/23 History clonazepam 1 mg tablet 1 mg PO BID PRN Anxiety 02/02/23 03/27/23 Unknown History escitalopram oxalate 20 mg tablet 20 mg PO BEDTIME 02/02/23 03/27/23 03/26/23 History famotidine 20 mg tablet 20 mg PO BID 02/02/23 03/27/23 03/26/23 History fluticasone 500 mcg-salmeterol 50 1 ea inhalation BID 02/02/23 03/27/23 03/26/23 History mcg/dose blistr powdr for inhalation (Advair Diskus) fluticasone propionate 50 1 spray intranasal DAILY 02/02/23 03/27/23 03/26/23 History mcg/actuation nasal spray,suspension gabapentin 100 mg capsule 100 mg PO TID 02/02/23 03/27/23 03/26/23 History glipizide 5 mg tablet 5 mg PO DAILY 02/02/23 03/27/23 03/26/23 History insulin lispro 100 unit/mL 1 sliding scale dose subcut TIDAC 02/02/23 03/27/23 03/26/23 History subcutaneous pen lurasidone 60 mg tablet 60 mg PO BEDTIME 02/02/23 03/27/23 03/26/23 History metformin 500 mg tablet,extended 1,000 mg PO BID 02/02/23 03/27/23 03/26/23 History release 24 hr oxcarbazepine 300 mg tablet 300 mg PO BID 02/02/23 03/27/23 03/26/23 History promethazine 25 mg tablet 25 mg PO DAILY PRN nausea 02/02/23 03/27/23 Unknown History tizanidine 4 mg tablet 4 mg PO DAILY PRN muscle spasm 02/02/23 03/27/23 Unknown History trazodone 150 mg tablet 150 mg PO BEDTIME PRN Sleep 02/02/23 03/27/23 Unknown History Physical Exam Vital Signs and Narrative: Vital Signs: Last Vital Signs Temp 98.4 F 05/01/23 00:08 Pulse 83 05/01/23 00:08 Resp 14 05/01/23 00:08 BP 96/58 L 05/01/23 00:08 Pulse Ox 97 05/01/23 00:08 O2 Del Method Nasal Cannula 05/01/23 00:08 O2 Flow Rate 4 05/01/23 00:08 BMI result Body Mass Index 36.4 Middle-aged female lying in bed in mild distress on supplemental oxygen Neck supple, no JVD Regular rate and rhythm, S1-S2 heard Bilateral crackles with wheezing Abdomen soft nontender, no guarding, no rigidity Patient is awake, alert and oriented to self, place, time and person ; no focal motor deficit Psych: Normal mood No pedal edema Results Labs 04/30/23 20:14 04/30/23 20:14 Labs: Laboratory Results - last 24 hr 04/30/23 04/30/23 20:14 22:42 MCV 83.9 MCH 26.3 L MCHC 31.4 RDW 14.0 Plt Count 292 MPV 8.9 L Immature Gran % (Auto) Cancelled Neut % (Auto) Cancelled Lymph % (Auto) Cancelled Pratt % (Auto) Cancelled Eos % (Auto) Cancelled Baso % (Auto) Cancelled Lymph # (Auto) Cancelled Pratt # (Auto) Cancelled Eos # (Auto) Cancelled Baso # (Auto) Cancelled Abs Immat Gran (auto) Cancelled Absolute Neuts (auto) Cancelled Absolute Nucleated RBC 0.000 Nucleated RBC % (auto) 0.0 Neutrophils % (Manual) 77 H Band Neutrophils % 9 H Lymphocytes % (Manual) 7 L Monocytes % (Manual) 4 Metamyelocytes % 3 Abs Neuts (Manual) 11.5 H Lymphocytes # (Manual) 0.9 L Monocytes # (Manual) 0.5 Metamyelocytes # 0.4 Platelet Estimate NORMAL Plt Morphology Comment NORMAL RBC Morphology NOTED Polychromasia 1+ (0-2) Ovalocytes 1+ (5-14) Smear Tech's Comments MANUAL DIFF PT 15.6 H INR 1.3 H Anion Gap 16 Estim Creat Clear Calc 54.7 Estimated GFR 43 Random Glucose 426 H* Lactic Acid 2.9 H* Lactic Acid F/U @ 2Hr 1.3 Calcium 8.8 Magnesium 1.4 L* Total Bilirubin 0.4 Direct Bilirubin 0.2 AST 35 H ALT 33 H Alkaline Phosphatase 204 H Troponin I High Sens 912.3 H* D 1252.6 H* B-Natriuretic Peptide 51 Total Protein 7.3 Albumin 3.7 Influenza Type A (PCR) NEGATIVE Influenza Type B (PCR) NEGATIVE RSV RNA Qual (PCR) NEGATIVE SARS-CoV-2 RNA (RT-PCR) POSITIVE A Imaging Radiologist's Impressions: Impressions Chest X-Ray 04/30/23 21:02 IMPRESSION: Tracheostomy tube. Peribronchial cuffing suggesting underlying reactive or small airways disease. No dense consolidation. Bibasilar markings more likely reflect component of atelectasis. Chest CTA 04/30/23 23:35 IMPRESSION: 1. No central or proximal segmental pulmonary embolus identified. Evaluation of the more distal vasculature is limited in some regions due to respiratory motion artifact. 2. Moderately extensive regions of consolidation in the basilar lower lobes, which could be due to multifocal pneumonia versus sequelae of aspiration. Imaging follow-up would be helpful to assess for resolution. 3. Mildly enlarged right paratracheal lymph nodes, which may be reactive given the pulmonary findings. VTE: negative. Assessment and Plan (1) Sepsis: Status: Acute (2) COVID-19: Status: Acute (3) Pneumonia: Qualifiers: Laterality: right Lung location: upper lobe of lung Pneumonia type: due to unspecified organism Qualified Code(s): J18.9 - Pneumonia, unspecified organism Status: Acute Plan This is a 52-year-old female with pertinent history of essential hypertension, insulin-dependent diabetes mellitus, chronic hypoxemic respiratory failure on trach collar due to asthma, mixed hyperlipidemia, mood disorder, history of PE on Eliquis who presents to the emergency department for evaluation of dyspnea. #. Acute on chronic hypoxemic respiratory failure due to COVID-19 pneumonia with bacterial superinfection leading to acute exacerbation of asthma: Will admit patient with supplemental oxygen and isolation precautions. Initiating empiric IV antibiotics. Continue supplemental oxygen and wean as tolerated. Initiating systemic steroids. Scheduled and p.r.n. DuoNebs. Continue home inhaler #. Sepsis in the setting of above: Resuscitated with IV crystalloids. Lactic acid and blood culture obtained. Sputum culture pending. Initiated on empiric IV antibiotics as above #. Acute lactic acidosis due to sepsis #. Elevated troponin likely in the setting of increased demand: Patient with pleuritic chest discomfort. Cardiology was consulted from the ER> no indication for heparin. Will trend troponin #. Insulin-dependent diabetes mellitus with hyperglycemia: Initiating basal plus insulin regimen #. Hypomagnesemia: Repleted #. History of PE: On Eliquis #. Mixed hyperlipidemia: On statin #. Mood disorder: Continue home mood stabilizers #. Obesity: Low-calorie diet and weight loss Med rec pending DVT prophylaxis: Eliquis Full code Admit as inpatient and will require two night minimum hospital stay for IV antibiotics, supplemental oxygen (as above), which is not possible in a lesser acute setting. Quality Stroke Does the patient have a stroke diagnosis?: No VTE Prior VTE?: No VTE Risk Level:: Medical - moderate - high VTE Device Contraindication: Treatment Not Indicated VTE Drug Contraindication: N/A - Med Ordered
[2023-05-01] MEDS: Insulin Regular, Human 100 UNIT/ML 3 ML VIAL IVPUSH (01:10)
[2023-05-01] MEDS: Azithromycin 500 MG in 0.9 % Sodium Chloride 250 ML 125 MG IV (01:15)
[2023-05-01] MEDS: Insulin Glargine,Hum.rec.anlog 100 UNIT/ML 10 ML VIAL 10 UNIT SUBCUT (01:15)
[2023-05-01 01:18] LABS: Glucose, Whole Blood 476 mg/dL (60-115)
--- NOTE | 2023-05-01 01:31 | PC.NURSE ---
pt medicated per may. poc 476 Dr. Lira aware. resp even and unlabored. pt refused neb treatment 2144 to respiratory still refusing. sats 94% on 4L NC. afebrile. Dr. Lira aware of troponin no st elevation noted on monitor; nsr 76 bpm. pt reports cp with inspiration; stated previously given pain meds were not effective. Dr. Lira notified. bed linen changed purewick remains in place. nad. call aaron within reach.
[2023-05-01] MEDS: ondansetron HCL 4 MG/2 ML VIAL IVPUSH (02:21)
[2023-05-01] MEDS: Morphine Sulfate 4 MG/ML CARTRIDGE IVPUSH (02:22)
[2023-05-01 02:32] LABS: Appearance Urine Clear; Color Urine Yellow; Glucose Urine UA >=1000 mg/dL (Negative); Leukocyte Esterase Urine Negative (Negative); Nitrite Urine Negative (Negative); Specific Gravity - Urine 1.025 (1.005-1.025); UMIC TRIGGER UACC YES; Urine Blood Negative (Negative); Urine Ketones Negative (Negative); Urine Protein Negative (Neg-Trace)
[2023-05-01 02:37] LABS: Bacteria Urine None Seen (None Seen); Hyaline Casts Urine 0-2 /LPF (0-2); RBC Urine 0-2 /HPF (0-2); Squamous Epithelial Cell Urine 0-2 /HPF (0-2); WBC Urine 0-5 /HPF (0-5)
[2023-05-01 02:40] LABS: Glucose, Whole Blood 521 mg/dL (60-115)
--- NOTE | 2023-05-01 02:40 | PC.NURSE ---
poc 521. Dr. Lira notified.
[2023-05-01] MEDS: Insulin Regular, Human 100 UNIT/ML 3 ML VIAL 10 UNIT IVPUSH ×2 (03:13→05:22)
[2023-05-01] MEDS: Insulin Lispro 100 UNIT/ML 3 ML VIAL SUBCUT ×5 (03:15→21:37)
--- NOTE | 2023-05-01 03:15 | PC.NURSE ---
pt medicated per mar with insulin. nad. call aaron within reach.
[2023-05-01 03:35] LABS: Glucose, Whole Blood 500 mg/dL (60-115)
--- NOTE | 2023-05-01 04:50 | PC.NURSE ---
poc 460 Dr. Lira aware no new orders at this time.
[2023-05-01 04:52] LABS: Glucose, Whole Blood 460 mg/dL (60-115)
[2023-05-01] MEDS: 0.9 % Sodium Chloride 500 ML IV (05:23)
[2023-05-01] MEDS: cefTRIAXone sodium 1 GM in 0.9 % Sodium Chloride 50 ML IV (05:23)
--- NOTE | 2023-05-01 05:24 | ECG_ITS ---
Test Reason : RHYTM CHANGE Blood Pressure : / mmHG Vent. Rate : 066 BPM Atrial Rate : 066 BPM P-R Int : 188 ms QRS Dur : 082 ms QT Int : 560 ms P-R-T Axes : 055 011 031 degrees QTc Int : 587 ms Normal sinus rhythm Cannot rule out Anterior infarct (cited on or before 02-FEB-2023) Prolonged QT Abnormal ECG When compared with ECG of 30-APR-2023 20:51, Vent. rate has decreased BY 48 BPM QT has lengthened Referred By: Denise Barnes Electronically Signed By:Skip Ledesma
[2023-05-01 05:29] LABS: Basophils Percent Auto 0.2 % (0-2); Hemoglobin 10.9 g/dl (12.0-16.0); Imm Gran Pct Auto 0.7 % (0.0-0.4); Lymphocytes Absolute Auto 0.6 X10*3/uL (1.2-4.9); Lymphocytes Percent Auto 3.9 % (20-40); MANUAL DIFF FLAG SCAN; Mean Corpuscular HGB Conc 31.1 g/dl (31.0-35.0); Mean Corpuscular Hemoglobin 26.8 pg (27.0-33.0); Mean Corpuscular Volume 86.2 fL (80.0-98.0); Mean Platelet Volume 9.4 fL (9.4-12.3); Monocytes Absolute Auto 0.4 X10*3/uL (0.1-1.2); Neutrophils Percent Auto 92.2 % (45-73); Platelet Count 267 X10*3/uL (160-400); Red Blood Count 4.06 X10*6/uL (4.20-5.50); Red Cell Distribution Width 14.1 % (11.0-16.0); SCAN SMEAR FLAG 1; White Blood Count 14.1 X10*3/uL (4.8-10.8)
[2023-05-01] MEDS: Magnesium Sulfate/H2O 2 GM/50 ML PIGGYBACK IV (05:38)
--- NOTE | 2023-05-01 05:44 | PC.NURSE ---
0515 - ?st elevation on heart monitor. notified Dr. Lira. EKG obtained. Reviewed by ed provider Dr. Argueta and Dr. Lira. QTC prolongation noted; new order for iv mag. hung to infuse within [address] Argueta verbal order. vitals as documented. pt also medicated per mar with insulin d/t poc. ivf infusing. pt denies cp but reporting 9/[address] back pain with inspiration. Dr. Lira aware. awaiting further orders. awaiting 0500 lab results. pt axox4 speaking full clear sentences. pt on heart monitor. call aaron within reach.
[2023-05-01 05:48] LABS: Magnesium 2.3 mg/dL (1.6-2.6)
[2023-05-01 05:51] LABS: SLIDE REVIEW VERIFIED
[2023-05-01 05:55] LABS: Anion Gap 12 (12-20); Blood Urea Nitrogen 20 mg/dL (9-16); Calcium 8.2 mg/dL (8.4-10.2); Carbon Dioxide 26 mmol/L (22-29); Chloride 101 mmol/L (96-108); Creatinine Clr Calc Pharmacy 53.8; Estimated Glomerular Filt Rate 42; Glucose Random 471 mg/dL (60-115); Potassium 4.8 mmol/L (3.3-5.1); Sodium 134 mmol/L (135-145)
[2023-05-01 06:00] LABS: Troponin-I High Sensitivity 371.7 ng/L (<3.5-17.0)
[2023-05-01] MEDS: HYDROmorphone HCl 1 MG/ML SYRINGE IVPUSH (06:06)
[2023-05-01 06:11] LABS: Glucose, Whole Blood 358 mg/dL (60-115)
--- NOTE | 2023-05-01 06:15 | PC.NURSE ---
poc bgl improved. pt medicated per mar for pain. vss. resp even and unlabored. troponin improved Dr. rivera notified. call aaron within reach.
[2023-05-01 06:37] LABS: Glucose, Whole Blood 350 mg/dL (60-115)
[2023-05-01] MEDS: Insulin Glargine,Hum.rec.anlog 100 UNIT/ML 10 ML VIAL 12 UNIT SUBCUT (09:21)
[2023-05-01] MEDS: dexAMETHasone sod phosphate 4 MG/ML VIAL 6 MG IVPUSH (09:22)
--- NOTE | 2023-05-01 10:32 | PHA.MEDREC ---
Pharmacy Consult ? Medication Reconciliation Pharmacy has completed the medication reconciliation. spoke with patient to confirm medications. She reports using her Advair BID every day despite last fill in December 2022 for a 30 day supply.
[2023-05-01] MEDS: Acetaminophen 325 MG TABLET 650 MG PO (10:43)
[2023-05-01 13:22] LABS: Glucose, Whole Blood 338 mg/dL (60-115)
--- NOTE | 2023-05-01 13:44 | P.EN_ITS ---
Event Note Date of Service: 05/01/23 Event Note: This is a 52-year-old female with pertinent history of essential hypertension, insulin-dependent diabetes mellitus, chronic hypoxemic respiratory failure on trach collar due to asthma, mixed hyperlipidemia, mood disorder, history of PE on Eliquis who presents to the emergency department for evaluation of dyspnea. Acute on chronic hypoxemic respiratory failure due to COVID-19 pneumonia with bacterial superinfection leading to acute exacerbation of asthma supplemental oxygen and isolation precautions. Rocephin and azithromycin Continue supplemental oxygen and wean as tolerated. systemic steroids. Scheduled and p.r.n. DuoNebs. Continue home inhaler Sepsis in the setting of above Resuscitated with IV crystalloids. Lactic acid and blood culture obtained. Sputum culture pending. Initiated on empiric IV antibiotics as above Acute lactic acidosis due to sepsis Elevated troponin likely in the setting of increased demand Patient with pleuritic chest discomfort. Cardiology was consulted from the ER> no indication for heparin. Will trend troponin Insulin-dependent diabetes mellitus with hyperglycemia type 2 ss mealtime insulin added ada diet Hypomagnesemia Repleted History of PE On Eliquis Mixed hyperlipidemia On statin Mood disorder Continue home mood stabilizers Obesity Low-calorie diet and weight loss DVT prophylaxis: Eliquis Full code Admit as inpatient and will require two night minimum hospital stay for IV anti biotics, supplemental oxygen (as above), which is not possible in a lesser acute setting. Time Spent With Patient Time: Total time managing care of this patient today ____ minutes.
[2023-05-01] MEDS: Albuterol/Iprat 2.5/0.5MG 3 ML AMPUL.NEB INHALE ×2 (13:49→20:46)
[2023-05-01] MEDS: Insulin Lispro 100 UNIT/ML 3 ML VIAL 7 UNIT SUBCUT ×4 (13:57→21:37)
[2023-05-01] MEDS: Ketorolac Tromethamine 15 MG/ML VIAL IVPUSH (13:58)
[2023-05-01] MEDS: Apixaban 5 MG TABLET PO ×2 (13:58→21:24)
--- NOTE | 2023-05-01 14:07 | PC.NURSE ---
pt medicated per may for back pain that increases with inspiration. pt also requested breathing treatment, respiratory notified. pt found sating 84% on 2L O2, titrated up to 5L O2 now sating 90%. Olivia, RT aware and in with pt filemon.
--- NOTE | 2023-05-01 14:44 | PC.NURSE ---
late entry: assumed care of pt at 0700. pt a&o x4, calm, and cooperative. pt on O2 via NC sating mid to high 90s. rr even/unlabored. does not appear to be in any respiratory distress. pt IV to LAC infiltrated, IV patent on right side. pt requested breathing treatment, Olivia RT gave breathing treatment. purewick in place draining yellow urine. pt medicated per may for blood sugar, pain, and respiratory. awaiting inpatient bed assignment. resting quietly on stretcher in no apparent distress. rr even/unlabored. plan of care ongoing.
[2023-05-01] MEDS: Gabapentin 100 MG CAPSULE PO ×2 (15:44→21:25)
--- NOTE | 2023-05-01 16:24 | PC.NURSE ---
pt sister elver phone number: [phone]
[2023-05-01 17:53] LABS: Glucose, Whole Blood 422 mg/dL (60-115)
[2023-05-01 18:46] LABS: Glucose, Whole Blood 414 mg/dL (60-115)
[2023-05-01 21:09] LABS: Glucose, Whole Blood 357 mg/dL (60-115)
[2023-05-01] MEDS: Escitalopram Oxalate 20 MG TABLET PO (21:24)
[2023-05-01] MEDS: traZODone HCL 50 MG TABLET 150 MG PO (21:25)
[2023-05-01] MEDS: Famotidine 20 MG TABLET PO (21:25)
[2023-05-01] MEDS: OXcarbazepine 300 MG TABLET PO (21:25)
[2023-05-01] MEDS: Lurasidone HCl 20 MG TABLET 60 MG PO (21:25)
[2023-05-01] MEDS: 0.9 % Sodium Chloride Flush 3 ML SYRINGE IVFLUSH (21:27)
[2023-05-01] MEDS: clonazePAM 1 MG TABLET PO (21:36)
[2023-05-01] MEDS: oxyCODONE HCl Immed Release 5 MG TABLET PO (21:36)
[2023-05-02] VITALS (10 sets, daily range): BP systolic 102–147; BP diastolic 57–69; PULSE 62–89; RESP 16–20; TEMP 36.1–36.8; O2SAT 92–921
[2023-05-02] MEDS: Azithromycin 500 MG in 0.9 % Sodium Chloride 250 ML 100 MG IV (02:12)
[2023-05-02] MEDS: oxyCODONE HCl Immed Release 5 MG TABLET PO (04:09)
[2023-05-02] MEDS: cefTRIAXone sodium 1 GM in 0.9 % Sodium Chloride 50 ML IV (06:30)
[2023-05-02 08:16] LABS: Glucose, Whole Blood 344 mg/dL (60-115)
[2023-05-02] MEDS: Albuterol/Iprat 2.5/0.5MG 3 ML AMPUL.NEB INHALE ×4 (08:35→19:51)
[2023-05-02] MEDS: Insulin Lispro 100 UNIT/ML 3 ML VIAL SUBCUT ×4 (08:36→21:21)
[2023-05-02] MEDS: Insulin Glargine,Hum.rec.anlog 100 UNIT/ML 10 ML VIAL 12 UNIT SUBCUT (08:36)
[2023-05-02] MEDS: Insulin Lispro 100 UNIT/ML 3 ML VIAL 7 UNIT SUBCUT ×4 (08:36→21:20)
[2023-05-02] MEDS: dexAMETHasone sod phosphate 4 MG/ML VIAL 6 MG IVPUSH (08:36)
[2023-05-02] MEDS: metFORMIN HCl ER 500 MG TAB.ER.24H 1000 MG PO ×2 (08:37→20:54)
[2023-05-02] MEDS: 0.9 % Sodium Chloride Flush 3 ML SYRINGE IVFLUSH ×2 (08:37→17:17)
[2023-05-02] MEDS: Gabapentin 100 MG CAPSULE PO ×3 (08:37→20:52)
[2023-05-02] MEDS: OXcarbazepine 300 MG TABLET PO ×2 (08:37→20:52)
[2023-05-02] MEDS: clonazePAM 1 MG TABLET PO ×2 (08:37→21:18)
[2023-05-02] MEDS: Apixaban 5 MG TABLET PO ×2 (08:37→20:52)
[2023-05-02] MEDS: Atorvastatin Calcium 10 MG TABLET PO (08:37)
[2023-05-02] MEDS: Famotidine 20 MG TABLET PO ×2 (08:37→20:52)
--- NOTE | 2023-05-02 09:50 | HO.PM.IMPN ---
Subjective Subjective Date of Service: 05/02/23 Review of Systems Review of Systems: Yes all other systems are reviewed and are negative Physical Exam Vital Signs: Vital Signs: Last Vital Signs Temp 97.8 F 05/02/23 08:00 Pulse 62 05/02/23 08:39 Resp 16 05/02/23 08:39 BP 111/67 05/02/23 08:00 Pulse Ox 100 05/02/23 08:00 O2 Del Method Nasal Cannula 05/02/23 08:00 O2 Flow Rate 6 05/02/23 08:00 BMI result Body Mass Index 39.6 Objective Data Active Medications Acetaminophen (Acetaminophen 325 Mg Tablet) 650 mg PO Q6H PRN PRN Reason: Pain, Mild (Pain Scale 1-3) Last Admin: 05/01/23 10:43 Dose: 650 mg Documented By: SHON Acetaminophen (Acetaminophen Supp 650 Mg Supp.Rect) 650 mg AK Q6H PRN PRN Reason: Pain, Mild (Pain Scale 1-3) Albuterol/Ipratropium (Albuterol/Iprat 2.5/0.5mg 3 Ml Ampul.Neb) 3 ml INHALE RQ4H WHILE AWAKE [facility] Last Admin: 05/02/23 08:35 Dose: 3 ml Documented By: BAYRON Albuterol/Ipratropium (Albuterol/Iprat 2.5/0.5mg 3 Ml Ampul.Neb) 3 ml INHALE Q4H PRN PRN Reason: Wheezing Apixaban (Apixaban 5 Mg Tablet) 5 mg PO BID [facility] Last Admin: 05/02/23 08:37 Dose: 5 mg Documented By: LEIDY Atorvastatin Calcium (Atorvastatin Calcium 10 Mg Tablet) 10 mg PO DAILY [facility] Last Admin: 05/02/23 08:37 Dose: 10 mg Documented By: LEIDY Clonazepam (Clonazepam 1 Mg Tablet) 1 mg PO BID PRN PRN Reason: Anxiety Last Admin: 05/02/23 08:37 Dose: 1 mg Documented By: LEIDY Dexamethasone Sodium Phosphate (Dexamethasone Sod Phosphate 4 Mg/Ml Vial) 6 mg IVPUSH DAILY [facility] Last Admin: 05/02/23 08:36 Dose: 6 mg Documented By: LEIDY Dextrose (Dextrose 50 % 25 Gm/50 Ml Syringe) 25 gm IVPUSH Q15M PRN; Protocol PRN Reason: per Hypoglycemia Standing Ord. Escitalopram Oxalate (Escitalopram Oxalate 20 Mg Tablet) 20 mg PO BEDTIME [facility] Last Admin: 05/01/23 21:24 Dose: 20 mg Documented By: FORREST Famotidine (Famotidine 20 Mg Tablet) 20 mg PO BID [facility] Last Admin: 05/02/23 08:37 Dose: 20 mg Documented By: LEIDY Fluticasone Propionate (Fluticasone Propionate Nasal 16 Gm [place]) 1 spray NOSTRIL-B DAILY [facility] Gabapentin (Gabapentin 100 Mg Capsule) 100 mg PO TID [facility] Last Admin: 05/02/23 08:37 Dose: 100 mg Documented By: LEIDY Glucose (Glucose Gel 15 Gm Gel..Gram.) 15 gm PO Q15M PRN; Protocol PRN Reason: per Hypoglycemia Standing Ord. Ceftriaxone Sodium 1 gm/ (Sodium Chloride) 50 mls @ 100 mls/hr IV Q24H [facility] Last Infusion: 05/02/23 07:40 Dose: Infused Documented By: LEIDY Azithromycin 500 mg/ Sodium (Chloride) 250 mls @ 125 mls/hr IV Q24H [facility] Last Infusion: 05/02/23 04:42 Dose: Infused Documented By: FORREST Insulin Glargine (Insulin Glargine,Hum.Rec.Anlog 100 Unit/Ml 10 Ml Vial) 12 unit SUBCUT DAILY [facility] Last Admin: 05/02/23 08:36 Dose: 12 unit Documented By: LEIDY Insulin Human Lispro (Insulin Lispro 100 Unit/Ml 3 Ml Vial) 0 unit SUBCUT QIDACHS [facility]; Protocol Last Admin: 05/02/23 08:36 Dose: 8 unit Documented By: LEIDY Insulin Human Lispro (Insulin Lispro 100 Unit/Ml 3 Ml Vial) 7 unit SUBCUT QIDACHS [facility] Last Admin: 05/02/23 08:36 Dose: 7 unit Documented By: LEIDY Lurasidone HCl (Lurasidone Hcl 20 Mg Tablet) 60 mg PO BEDTIME [facility] Last Admin: 05/01/23 21:25 Dose: 60 mg Documented By: FORREST Melatonin (Melatonin 3 Mg Tablet) 6 mg PO BEDTIME PRN PRN Reason: Insomnia Metformin HCl (Metformin Hcl Er 500 Mg Tab.Er.24h) 1,000 mg PO BID [facility] Last Admin: 05/02/23 08:37 Dose: 1,000 mg Documented By: LEIDY Ondansetron HCl (Ondansetron Hcl 4 Mg/2 Ml Vial) 4 mg IVPUSH Q8H PRN PRN Reason: Nausea and Vomiting Last Admin: 05/01/23 02:21 Dose: 4 mg Documented By: LYLE Oxcarbazepine (Oxcarbazepine 300 Mg Tablet) 300 mg PO BID [facility] Last Admin: 05/02/23 08:37 Dose: 300 mg Documented By: LEIDY Oxycodone HCl (Oxycodone Hcl Immed Release 5 Mg Tablet) 5 mg PO Q6H PRN PRN Reason: Pain, Moderate(Pain Scale 4-6) Last Admin: 05/02/23 04:09 Dose: 5 mg Documented By: FORREST Promethazine HCl (Promethazine Hcl 25 Mg Tablet) 25 mg PO DAILY PRN PRN Reason: nausea Sodium Chloride (0.9 % Sodium Chloride Flush 3 Ml Syringe) 3 ml IVFLUSH QSHIFT [facility] Last Admin: 05/02/23 08:37 Dose: 3 ml Documented By: LEIDY Tizanidine HCl (Tizanidine Hcl 4 Mg Tablet) 4 mg PO DAILY PRN PRN Reason: muscle spasm Trazodone HCl (Trazodone Hcl 50 Mg Tablet) 150 mg PO BEDTIME [facility] Last Admin: 05/01/23 21:25 Dose: 150 mg Documented By: FORREST Labs 05/01/23 05:16 05/01/23 05:16 Labs: Laboratory Results - last 24 hr 05/01/23 05/01/23 05/01/23 13:17 17:36 18:41 POC Glucose 338 H 422 H* 414 H* 05/01/23 05/02/23 19:22 07:47 POC Glucose 357 H* 344 H Microbiology Microbiology Results: Microbiology 05/01/23 16:25 Gram Stain - Final Sputum - Expectorated 04/30/23 20:41 Blood Culture - Preliminary Blood - Venous No growth after 24 hours. 04/30/23 20:14 Blood Culture - Preliminary Blood - Venous No growth after 24 hours. Assessment and Plan (1) Sepsis: Status: Acute (2) COVID-19: Status: Acute Plan This is a 52-year-old female with pertinent history of essential hypertension, insulin-dependent diabetes mellitus, chronic hypoxemic respiratory failure on trach collar due to asthma, mixed hyperlipidemia, mood disorder, history of PE on Eliquis who presents to the emergency department for evaluation of dyspnea. Acute on chronic hypoxemic respiratory failure due to COVID-19 pneumonia with bacterial superinfection leading to acute exacerbation of asthma supplemental oxygen and isolation precautions. Rocephin and azithromycin Continue supplemental oxygen and wean as tolerated. systemic steroids. Scheduled and p.r.n. DuoNebs. Continue home inhaler Sepsis in the setting of above Resuscitated with IV crystalloids. Lactic acid and blood cultures negative Sputum culture 3+ gram pos rods on Rocephin and azithromycin Acute lactic acidosis due to sepsis Elevated troponin likely in the setting of increased demand Patient with pleuritic chest discomfort. Cardiology was consulted from the ER> no indication for heparin. Will trend troponin Insulin-dependent diabetes mellitus with hyperglycemia type 2 ss mealtime insulin added ada diet Hypomagnesemia Repleted History of PE On Eliquis Mixed hyperlipidemia On statin Mood disorder Continue home mood stabilizers Obesity Low-calorie diet and weight loss DVT prophylaxis: Jessica attending Dr. Cuevas Full code continued hospital stay for IV antibiotics, supplemental oxygen (as above), which is not possible in a lesser acute setting. Quality Stroke Does the patient have a stroke diagnosis?: No VTE Prior VTE?: No VTE Risk Level:: Medical - moderate - high VTE Device Contraindication: Treatment Not Indicated VTE Drug Contraindication: N/A - Med Ordered
[2023-05-02 11:27] LABS: Glucose, Whole Blood 227 mg/dL (60-115)
--- NOTE | 2023-05-02 12:15 | HE.PHANOTE ---
[facility] PATIENTS GFR = 42. RECOMMENDED DOSE FOR GFR OF 42 IS 500 MG BID. CONTACTED HIRA MUKHERJEE TO SEE IF SHE WANTED TO REDUCE THE DOSE
--- NOTE | 2023-05-02 15:09 | MHC.CM.PN ---
PT REPORTS SHE LIVES WITH HER AND HAS DAILY [employer] PT HAS A CHRONIC TRACH, HOME O2 FROM [employer]PPLY AND USES A CANE HCP ON FILE PCP: NINFA WOOTEN DCP: HOME, RESUME [employer] VIA PRIVATE TRANSPORT
[2023-05-02 16:43] LABS: Glucose, Whole Blood 312 mg/dL (60-115)
[2023-05-02] MEDS: Escitalopram Oxalate 20 MG TABLET PO (20:52)
[2023-05-02] MEDS: traZODone HCL 50 MG TABLET 150 MG PO (20:52)
[2023-05-02] MEDS: Lurasidone HCl 20 MG TABLET 60 MG PO (20:53)
[2023-05-02 21:11] LABS: Glucose, Whole Blood 378 mg/dL (60-115)
[2023-05-03] MEDS: Azithromycin 500 MG in 0.9 % Sodium Chloride 250 ML 125 MG IV (02:02)
[2023-05-03] MEDS: guaiFENesin 200 MG/10 ML 10 ML LIQUID PO (02:02)
[2023-05-03] MEDS: 0.9 % Sodium Chloride Flush 3 ML SYRINGE IVFLUSH ×2 (02:12→08:37)
[2023-05-03 03:19] VITALS: BP 131/66; PULSE 76; RESP 19; TEMP 36.7; O2SAT 96
[2023-05-03] MEDS: oxyCODONE HCl Immed Release 5 MG TABLET PO (03:27)
[2023-05-03] MEDS: Albuterol/Iprat 2.5/0.5MG 3 ML AMPUL.NEB INHALE ×2 (04:19→08:05)
[2023-05-03 07:01] LABS: Anion Gap 14 (12-20); Blood Urea Nitrogen 23 mg/dL (9-16); Calcium 8.4 mg/dL (8.4-10.2); Carbon Dioxide 28 mmol/L (22-29); Chloride 100 mmol/L (96-108); Creatinine Clr Calc Pharmacy 79.5; Estimated Glomerular Filt Rate > 60; Glucose Random 252 mg/dL (60-115); Potassium 4.4 mmol/L (3.3-5.1); Sodium 138 mmol/L (135-145)
[2023-05-03 08:00] VITALS: BP 166/88; PULSE 65; RESP 18; TEMP 36.6; O2SAT 97
[2023-05-03 08:08] VITALS: PULSE 63; RESP 16; O2SAT 95
[2023-05-03] MEDS: Atorvastatin Calcium 10 MG TABLET PO (08:35)
[2023-05-03] MEDS: metFORMIN HCl ER 500 MG TAB.ER.24H 1000 MG PO (08:35)
[2023-05-03] MEDS: Insulin Glargine,Hum.rec.anlog 100 UNIT/ML 10 ML VIAL 12 UNIT SUBCUT (08:36)
[2023-05-03] MEDS: Famotidine 20 MG TABLET PO (08:36)
[2023-05-03] MEDS: OXcarbazepine 300 MG TABLET PO (08:36)
[2023-05-03] MEDS: Apixaban 5 MG TABLET PO (08:36)
[2023-05-03] MEDS: Gabapentin 100 MG CAPSULE PO (08:36)
[2023-05-03] MEDS: dexAMETHasone sod phosphate 4 MG/ML VIAL 6 MG IVPUSH (08:37)
[2023-05-03] MEDS: Insulin Lispro 100 UNIT/ML 3 ML VIAL 7 UNIT SUBCUT ×2 (08:37→11:57)
[2023-05-03] MEDS: Insulin Lispro 100 UNIT/ML 3 ML VIAL SUBCUT ×2 (08:37→11:56)
[2023-05-03 09:00] LABS: Venous Blood Gas Refer to POC result
[2023-05-03 09:01] LABS: VBG Base Excess 9.4 mmol/L; VBG HCO3 36 mmol/L (22-26); VBG pCO2 58 mmHg; VBG pH 7.39 (7.32-7.43); VBG pO2 35 mmHg
[2023-05-03] MEDS: clonazePAM 1 MG TABLET PO (09:03)
[2023-05-03] MEDS: Fluticasone Propionate Nasal 16 GM SPRAY 1 SPRAY NOSTRIL-B (09:04)
[2023-05-03 09:20] LABS: Glucose, Whole Blood 211 mg/dL (60-115)
[2023-05-03 10:50] VITALS: O2SAT 94
[2023-05-03 11:41] VITALS: BP 150/75; PULSE 97; RESP 18; TEMP 36.6; O2SAT 94
[2023-05-03] MEDS: cefTRIAXone sodium 1 GM in 0.9 % Sodium Chloride 50 ML IV (11:56)
[2023-05-03 12:04] LABS: Glucose, Whole Blood 295 mg/dL (60-115)
--- NOTE | 2023-05-03 13:38 | P.DS_ITS ---
DS: Providers Provider Date of Service: 05/03/23 Date of admission: 05/01/23 00:32 Primary care physician: Megan Cummings MD DS: Diagnosis Discharge Diagnosis (1) Sepsis: Status: Acute (2) COVID-19: Status: Acute DS: Summary Hospital Course Hospital Course: Physical as per admitting provider. This is a 52-year-old female with pertinent history of essential hypertension, insulin-dependent diabetes mellitus, chronic hypoxemic respiratory failure on trach collar due to asthma, mixed hyperlipidemia, mood disorder, history of PE on Eliquis who presents to the emergency department for evaluation of dyspnea. Patient states her symptoms started 2 days prior to presentation. She uses 2 L supplemental oxygen at baseline as needed. Patient states she has been feeling short of breath on her home O2. Also has associated productive cough and wheezing. Does endorse subjective fever and chills. Also has pleuritic chest discomfort. No palpitations, abdominal pain, changes in urinary or bowel habits. Patient den ies concern for aspiration or coughing with food. In the emergency department, patient was found to be septic. Imaging concerning for multilobar pneumonia. Patient requiring 4 L supplemental oxygen and tested positive for COVID-19. 52-year-old woman admitted with acute on chronic hypoxemic respiratory failure secondary to COPD and pneumonia leading to asthma exacerbation. Treated with IV Rocephin and azithromycin, supplemental oxygen, IV steroids and scheduled DuoNebs. Patient is on oxygen as needed at home as well. She did have sepsis but blood cultures and lactic acid were negative. Sputum culture with 3+ g positive rods. She was also noted to have elevated troponin in the setting of likely demand with some pleuritic chest pain, seen and evaluated by Cardiology with no indication for heparin and no ischemic changes noted on EKG. Plan is for patient to be sent home. She can continue the total 10 days of steroid treatment and 2 more days of antibiotics to complete 5 total days. Diabetes mellitus type 2. Continue home medications Hypomagnesemia. Resolved repletion History of pulmonary embolus. Continue on Eliquis Hyperlipidemia. Continue statin Mental health. Continue home medications Obesity. BMI 39.6 Discussed importance of weight management as this may be contributing to worsening of other comorbidities Time Attestation Discharge coordination time: Greater than 30 minutes Quality: Safe Use of Opioids Does Pt have an Active Cancer Diagnosis on the Problem List?: No Quality: Stroke Does the patient have a stroke diagnosis?: No Physical Exam Vital Signs: Vital Signs: Last Vital Signs Temp 97.8 F 05/03/23 11:41 Pulse 97 05/03/23 11:41 Resp 18 05/03/23 11:41 BP 150/75 H 05/03/23 11:41 Pulse Ox 94 05/03/23 11:41 O2 Del Method Nasal Cannula 05/03/23 11:41 O2 Flow Rate 3 05/03/23 11:41 BMI result Body Mass Index 39.6 Appearing in no acute distress head is normocephalic atraumatic eyes pupils are PERRLA sclera is anicteric mouth throat mucous membranes are intact and moist neck is supple no lymphadenopathy, no JVD noted lung sounds are clear to auscultation heart regular rate rhythm, clear S1, S2 positive bowel sounds, abdomen is soft, nontender neuro patient is alert x3, no focal deficits DS: Data Data Completed and Pending Completed studies during hospitalization [Text1]: Procedures Dilation of Left Ureter with Intraluminal Device, Via Natural or Artificial Opening Endoscopic (06/11/21) Fluoroscopy of Left Kidney, Ureter and Bladder (06/11/21) Labs on day of discharge: Laboratory Results - last 24 hr 05/02/23 05/02/23 05/03/23 16:38 20:42 06:24 VBG pH VBG pCO2 VBG pO2 VBG HCO3 VBG O2 Saturation VBG Base Excess Sodium 138 Potassium 4.4 Chloride 100 Carbon Dioxide 28 Anion Gap 14 BUN 23 H Creatinine 0.93 Estim Creat Clear Calc 79.5 Estimated GFR > 60 POC Glucose 312 H 378 H* Random Glucose 252 H Calcium 8.4 05/03/23 05/03/23 05/03/23 08:00 08:54 11:44 VBG pH 7.39 VBG pCO2 58 VBG pO2 35 VBG HCO3 36 H VBG O2 Saturation 56.0 VBG Base Excess 9.4 Sodium Potassium Chloride Carbon Dioxide Anion Gap BUN Creatinine Estim Creat Clear Calc Estimated GFR POC Glucose 211 H 295 H Random Glucose Calcium Preliminary micro results at discharge 05/01/23 16:25 Sputum Culture - Preliminary Sputum - Expectorated Culture in progress. 04/30/23 20:41 Blood Culture - Preliminary Blood - Venous No growth after 48 hours. 04/30/23 20:14 Blood Culture - Preliminary Blood - Venous No growth after 48 hours. Discharge Plan Discharge Anticipated Discharge Date/Time: 05/03/23 13:34 Patient Disposition: Home, Self-Care Discharge Diagnosis: Acute on chronic hypoxemic respiratory failure due to COVID-19 with bacterial superinfection Asthma exacerbation Sepsis Acute lactic acidosis Elevated troponin secondary to increased demand Referrals: Megan Mosqueda MD [Primary Care Provider] - 1 Week Discharge Medications: New azithromycin 500 mg tablet 500 mg PO DAILY 2 Days Qty: 2 0RF Rx Instructions: start on day 2 of therapy cefuroxime axetil 500 mg tablet 500 mg PO BID Qty: 4 0RF dexamethasone 6 mg tablet 6 mg PO DAILY Qty: 7 0RF Continued albuterol sulfate 2.5 mg /3 mL (0.083 %) solution for nebulization 2.5 mg inhalation Q4H PRN (Reason: wheezing) atorvastatin 10 mg tablet 10 mg PO DAILY tizanidine 4 mg tablet 4 mg PO DAILY PRN (Reason: muscle spasm) clonazepam 1 mg tablet 1 mg PO BID PRN (Reason: Anxiety) oxcarbazepine 300 mg tablet 300 mg PO BID famotidine 20 mg tablet 20 mg PO BID trazodone 150 mg tablet 150 mg PO BEDTIME promethazine 25 mg tablet 25 mg PO DAILY PRN (Reason: nausea) fluticasone propion-salmeterol [Advair Diskus] 500-50 mcg/dose blister with device 1 ea INHALATION BID gabapentin 100 mg capsule 100 mg PO TID albuterol sulfate [Ventolin HFA] 90 mcg/actuation HFA aerosol inhaler 2 puff inhalation Q4H PRN (Reason: wheezing) fluticasone propionate 50 mcg/actuation spray,suspension 1 spray intranasal DAILY Rx Instructions: INHALE IN BOTH NOSTRILS metformin 500 mg tablet extended release 24 hr 1,000 mg PO BID glipizide 5 mg tablet 5 mg PO DAILY insulin lispro 100 unit/mL insulin pen 1 sliding scale dose subcut TIDAC escitalopram oxalate 20 mg tablet 20 mg PO BEDTIME Eliquis 5 mg tablet 5 mg PO BID lurasidone 60 mg tablet 60 mg PO BEDTIME insulin glargine [Lantus Solostar U-100 Insulin] 100 unit/mL (3 mL) insulin pen 12 unit subcut DAILY Qty: 1 0RF Discharge Orders: Discharge Order (Routine); Ordered 05/03/23 Ordered By: Denise Barnes Diet: Advance to usual diet Activity on Discharge: As tolerated Stand Alone Forms: Patient Portal Discharge page Care Plan Goals: Complete course of antibiotics Complete course of steroids Continue home oxygen as needed Health Concerns: Acute on chronic hypoxemic respiratory failure due to COVID-19 with bacterial superinfection Asthma exacerbation Sepsis Acute lactic acidosis Elevated troponin secondary to increased demand Plan of Treatment: Follow-up with primary care provider as needed Take all medications as prescribed Assessment: See discharge summary
== END 2023-05-03 15:29 | disposition home or self-care (01) | DRG 720 ==
LOC: HO.ED 23:57 → HO.EDOVER 05-01 00:50 → HO.IMC 05-01 14:42
PROVIDERS: Physician Assistant; Admitting Provider Student in an Organized Health Care Education/Training Program; Emergency Provider Student in an Organized Health Care Education/Training Program; PCP Internal Medicine; Visit Provider Nurse Practitioner Acute Care
DX: A41.9 Sepsis, unspecified organism (principal); J96.21 Acute and chronic respiratory failure with hypoxia; J12.82 Pneumonia due to coronavirus disease 2019; U07.1 COVID-19; J44.0 Chronic obstructive pulmonary disease with (acute) lower respiratory infection; E87.21 Acute metabolic acidosis; Z93.0 Tracheostomy status; Z99.81 Dependence on supplemental oxygen; J45.901 Unspecified asthma with (acute) exacerbation; E11.65 Type 2 diabetes mellitus with hyperglycemia; E66.9 Obesity, unspecified; Z68.39 Body mass index [BMI] 39.0-39.9, adult; E78.2 Mixed hyperlipidemia; E83.42 Hypomagnesemia; F31.9 Bipolar disorder, unspecified; Z86.711 Personal history of pulmonary embolism; Z79.4 Long term (current) use of insulin; Z79.01 Long term (current) use of anticoagulants; Z79.51 Long term (current) use of inhaled steroids; Z79.84 Long term (current) use of oral hypoglycemic drugs; Z79.899 Other long term (current) drug therapy
CPT/HCPCS: 0241U; 36415; 71045; 71275; 80048; 80076; 81001; 82803; 82947; 83605; 83735; 83880; 84484; 85007; 85025; 85027; 85610; 87040; 87070; 87205; 93005; 94640; 97161; 97162; 99285; J0456; J0692; J0696; J1100; J1170; J1885; J2270; J2405; J2550; J2930; J3010; J3475; Q9967

== ENCOUNTER → 2023-04-30 19:55 | Outpatient (BNV) | payer OTHER, SELFPAY | PROVIDERS: Admitting Provider Student in an Organized Health Care Education/Training Program; Emergency Provider Student in an Organized Health Care Education/Training Program; PCP Internal Medicine; Visit Provider Internal Medicine Cardiovascular Disease | DX: A41.9 Sepsis, unspecified organism (principal); R00.0 Tachycardia, unspecified | CPT/HCPCS: 93010 ==

== ENCOUNTER → 2023-04-30 20:28 | Outpatient (BNV) | payer OTHER, SELFPAY | PROVIDERS: Emergency Provider Student in an Organized Health Care Education/Training Program; PCP Internal Medicine; Visit Provider Student in an Organized Health Care Education/Training Program | DX: A41.9 Sepsis, unspecified organism (principal); U07.1 COVID-19 | CPT/HCPCS: 99223; 99232; 99238; 99499 ==

== ENCOUNTER 2023-05-01 00:32 | Outpatient (BNV) | payer OTHER, SELFPAY | END 2023-05-01 05:24 | PROVIDERS: Admitting Provider Student in an Organized Health Care Education/Training Program; Emergency Provider Student in an Organized Health Care Education/Training Program; PCP Internal Medicine; Visit Provider Internal Medicine Cardiovascular Disease | DX: I45.81 Long QT syndrome (principal) | CPT/HCPCS: 93010 ==

== ENCOUNTER 2023-06-14 21:55 | Emergency (ER) | payer OTHER, SELFPAY ==
--- NOTE | ~2023-06-14 | XR_ITS ---
EXAMINATION: XR TIBIA AND FIBULA, LEFT CLINICAL INFORMATION: Trauma. COMPARISON: Ankle x-ray performed 06/14/2023 TECHNIQUE: AP and lateral views of the left tibia and fibula were obtained. FINDINGS: The bone mineralization is within normal. There is mild to moderate medial and patellofemoral degenerative change. A distal fibular fracture is noted. The soft tissues are unremarkable. XR/XR tibia fibula LT 2V IMPRESSION: 1. Distal fibular fracture. 2. Degenerative changes in the knee.
--- NOTE | ~2023-06-14 | XR_ITS ---
EXAMINATION: XR ANKLE, LEFT CLINICAL INFORMATION: Fall, medial malleolar pain. COMPARISON: None available. TECHNIQUE: AP, lateral, and mortise views of the left ankle. FINDINGS: Transversely oriented displaced medial malleolar fracture. Obliquely oriented mildly displaced distal fibular fracture extending above the level of the tibiofibular syndesmosis. Equivocal nondisplaced vertically oriented posterior malleolar fracture. Significant soft tissue swelling. XR/XR ankle LT min 3V IMPRESSION: 1. Medial malleolar and distal fibular fractures. The fibular fracture extends above the level of the syndesmosis, recommend correlation with proximal radiographic views of the tibia/fibula and knee to rule out additional injuries. 2. Equivocal nondisplaced posterior malleolar fracture. 3. Significant soft tissue swelling.
--- NOTE | ~2023-06-14 | XR_ITS ---
EXAMINATION: XR CHEST CLINICAL INFORMATION: Cough. COMPARISON: Chest radiograph 04/30/2023. TECHNIQUE: 2 views of the chest were obtained. FINDINGS: Midline tracheostomy. Stable prominence of the cardiomediastinal silhouette. Low lung volumes. Unchanged central peribronchial thickening/fullness. Stable hazy attenuation of the left lower lobe, most suggestive of a prominent epicardial fat pad. No focal consolidation. No pleural effusion or pneumothorax. No acute osseous findings. XR/XR chest 2V IMPRESSION: Stable central peribronchial thickening/fullness. No new focal consolidation. No pleural effusion or pneumothorax.
[2023-06-14 22:02] VITALS: BP 180/100; PULSE 110; O2SAT 94
[2023-06-14 22:06] VITALS: BP 135/75; PULSE 101; RESP 20; TEMP 36.8; O2SAT 91; BMI 36.3
--- NOTE | 2023-06-14 22:19 | PC.NURSE ---
RT called to inform patient is in ED, jail trach w/ audible wheezy, will come to assess shortly.
--- NOTE | 2023-06-14 22:31 | ED.GENADULT ---
HPI - General Adult General Chief complaint: General Medical Stated complaint: FALL Time Seen by Provider: 06/14/23 22:05 Source: patient Mode of arrival: EMS Limitations: no limitations History of Present Illness HPI narrative: Patient is a 52-year-old female who presents emergency department via EMS for evaluation. Reports that she was attempting to get into bed when she tripped resulting in a fall and subsequent left ankle pain. Reports pain to be severe 10/10. Denies any numbness tingling or cold sensation to the foot. Nursing staff expressed initial concern about audible wheezing, patient denies any concern about her current breathing. Reports that her oxygen saturation is typically in the lower 90s, she has O2 at home via nasal cannula which she reports that she is titrating accordingly based on how she feels. She does report recent pneumonia/COVID-19 infection. Chronic trach in place, she has no expressed concerns in regards to this. Related Data Home Medications Medication Instructions Recorded Confirmed albuterol sulfate 2.5 mg/3 mL 2.5 mg inhalation Q4H PRN wheezing 02/02/23 06/15/23 (0.083 %) solution for nebulization albuterol sulfate 90 mcg/actuation 2 puff inhalation Q4H PRN wheezing 02/02/23 06/15/23 aerosol inhaler (Ventolin HFA) apixaban 5 mg tablet (Eliquis) 5 mg PO BID 02/02/23 06/15/23 atorvastatin 10 mg tablet 10 mg PO BEDTIME 02/02/23 06/15/23 clonazepam 1 mg tablet 1 mg PO BID PRN Anxiety 02/02/23 06/15/23 escitalopram oxalate 20 mg tablet 20 mg PO BEDTIME 02/02/23 06/15/23 famotidine 20 mg tablet 20 mg PO BID 02/02/23 06/15/23 fluticasone 500 mcg-salmeterol 50 1 ea inhalation BID 02/02/23 06/15/23 mcg/dose blistr powdr for inhalation (Advair Diskus) fluticasone propionate 50 1 spray intranasal DAILY PRN 02/02/23 06/15/23 mcg/actuation nasal allergies spray,suspension gabapentin 100 mg capsule 100 mg PO TID 02/02/23 06/15/23 glipizide 5 mg tablet 5 mg PO DAILY 02/02/23 06/15/23 insulin lispro 100 unit/mL 1 sliding scale dose subcut TIDAC 02/02/23 06/15/23 subcutaneous pen lurasidone 60 mg tablet 60 mg PO BEDTIME 02/02/23 06/15/23 metformin 500 mg tablet,extended 1,000 mg PO BID 02/02/23 06/15/23 release 24 hr oxcarbazepine 300 mg tablet 300 mg PO BID 02/02/23 06/15/23 promethazine 25 mg tablet 25 mg PO DAILY PRN nausea 02/02/23 06/15/23 tizanidine 4 mg tablet 4 mg PO DAILY PRN muscle spasm 02/02/23 06/15/23 trazodone 150 mg tablet 150 mg PO BEDTIME PRN Sleep 02/02/23 06/15/23 insulin glargine 100 unit/mL (3 10 unit subcut DAILY 06/15/23 06/15/23 mL) subcutaneous pen (Lantus Solostar U-100 Insulin) Allergies Allergy/AdvReac Type Severity Reaction Status Date / Time pantoprazole Allergy Unknown Verified 03/26/23 22:29 Review of Systems Review of Systems: Yes all other systems are reviewed and are negative [facility] Past Medical History Attestation statement: The following information was validated with the patient. Source: old records reviewed Medical History History of cardiac arrest Wound drainage Takotsubo cardiomyopathy Kidney stones UTI (urinary tract infection) Bipolar 1 disorder Diabetes Asthma Substance abuse Surgical History S/P ureteral stent placement H/O exploratory laparotomy S/P cholecystectomy Family History Family History Mother No pertinent family history Father No pertinent family history Social History Social History Household Members: Spouse Household Members Other:: 1 Housing: Apartment Do you presently have visiting nurse or other home services: Yes Alcohol intake: never Comment: stayed in ed Patient Tobacco Use Status: Never used Tobacco Smoked in Last 30 Days: No Second Hand Smoke Exposure: Yes Use of substances other than those prescribed or required for medical reasons: No Advance Directives: Yes Advance Directives on File: Yes Advance Directives Date on File: 01/25/22 service: No Current occupational status: disabled Physical Exam ED Vital Signs: Vital Signs - 24 hr 06/14/23 22:06 06/14/23 22:58 06/15/23 00:34 Temperature 98.2 F 97.9 F Pulse Rate 101 H 88 Respiratory Rate 20 19 15 Blood Pressure 135/75 108/53 L Pulse Oximetry 91 L 96 Oxygen Delivery Method Room Air Nasal Cannula Trach Collar Oxygen Flow Rate 4 06/15/23 02:47 06/15/23 04:02 06/15/23 06:24 Temperature 98.0 F Pulse Rate 92 95 99 Respiratory Rate 16 13 16 Blood Pressure 97/61 109/73 122/83 Pulse Oximetry 97 98 95 Oxygen Delivery Method Nasal Cannula Trach Collar Nasal Cannula Nasal Cannula Oxygen Flow Rate 4 4 4 BMI result Body Mass Index 36.3 Appearance: Alert.?Oriented to person, place and time. No acute distress.?Normal affect. Eyes: Pupils equal, round and reactive to light.? ENT: Pharynx normal.?? Neck: Normal inspection.? Neck supple.?? CVS: Heart sounds normal. Normal heart rate and rhythm.? Pulses normal.?? Respiratory: No respiratory distress.? Expiratory wheezing bilaterally, chronic per patient. Trach is patent. Abdomen: Soft and non-tender. Normoactive bowel sounds. ? Skin: Skin warm and dry.? Normal skin color.?? Extremities: No lower extremity edema.? No calf ttp. 2+ DP/PT pulse bilaterally. Localized swelling ecchymosis to the left medial malleolus, diffuse tenderness upon palpation. Neuro: Moves all extremities spontaneously. Sensation intact bilaterally. Course Course Course Narrative: 06/15/2023 0709 --> Physician observation continues. Patient being followed by CM. 06/15/2023 1232 --> Physician observation ends at 1315. Patient will be discharged home with her and [facility]. Reevaluation(s) Reevaluation #1: XR reveals transverse displaced medial malleolar fracture, nondisplaced posterior malleolar fracture, oblique mildly displaced distal fibular fracture that extends above the level of the syndesmosis, therefore tib-fib XR was ordered to evaluate for additional injury, which reveals only distal fibular fracture. Splinted as per procedural section of this note. Orthopedics consulted. Nonweightbearing, outpatient follow-up. Spoke with patient about concern for her ability to be functionally nonweightbearing at home due to chronic respiratory failure and use of oxygen. Patient feels strongly about going home. Will attempt ambulatory trial. Patient signed out to Precious Argueta MD, unable to safely be mobile will refer to case management for physical therapy evaluation. Time: 02:23 Medications Administered Generic Name Dose Route Start Last Admin Trade Name Freq PRN Reason Stop Dose Admin Oxycodone HCl 10 mg 06/15/23 08:47 06/15/23 09:09 Oxycodone Hcl Immed Release 5 Mg Tablet PO 10 mg ONCE PRN Administration Breakthrough Pain Discontinued Medications Generic Name Dose Route Start Last Admin Trade Name Freq PRN Reason Stop Dose Admin Acetaminophen 975 mg 06/15/23 03:27 06/15/23 05:34 Acetaminophen 325 Mg Tablet PO 06/15/23 03:28 Not Given ONCE ONE Morphine Sulfate 4 mg 06/14/23 22:38 06/14/23 22:58 Morphine Sulfate 4 Mg/Ml Cartridge IM 06/14/23 22:39 4 mg ONCE ONE Administration Protocol Procedures Orthopedic Splinting/Casting Injury #1: Side: left Lower Extremity Injury Location: lower leg and ankle Lower Extremity Immobilizer: posterior splint and stirrup splint Additional Comments: Remained neurovascularly intact distally after application of splint Medical Decision Making Medical Decision Making MDM Narrative: Patient is a 52-year-old female who Presents emergency department for evaluation of traumatic left ankle pain as per HPI. On exam has notable swelling and ecchymosis to the medial malleolus, diffuse tenderness upon palpation along the ankle. At this time extremities neurovascularly intact distally. XR obtained which reveals a medial malleolus fracture and fibular fracture. Chronic respiratory failure, was agreeable to have viral testing XR obtained to evaluate for resolution of recent pneumonia. Chest x-ray reveals no acute pathology. Viral panel is negative. -patient's nurse attempted to ambulate the patient, however patient was unable to stand due to pain. Patient able to use crutches -basic labs pending -case management and physical therapy evaluation pending -physician observation started at 04:00 Differential Diagnosis Differential Diagnoses: The differential diagnosis associated with the presentation includes (Fracture, dislocation, sprain) Admission/Observation Consideration of admission/observation: Escalation of care including admission/observation considered Consult Healthcare Provider Management of the patient was discussed with: Roller Cleaner ([facility]) Recommend splinting, nonweightbearing, outpatient follow-up Lab Data MDM Lab Attestation statement: I reviewed the patient's lab results. (Negative viral panel) 06/15/23 04:23 06/15/23 04:23 Labs: Lab Results 06/14/23 06/15/23 06/15/23 Range/Units 22:57 04:23 07:20 WBC 9.2 (4.8-10.8) X10*3/uL RBC 3.96 L (4.20-5.50) X10*6/uL Hgb 10.7 L (12.0-16.0) g/dl Hct 35.1 L (37.0-47.0) % MCV 88.6 (80.0-98.0) fL MCH 27.0 (27.0-33.0) pg MCHC 30.5 L (31.0-35.0) g/dl RDW 14.6 (11.0-16.0) % Plt Count 240 (160-400) X10*3/uL MPV 9.3 L (9.4-12.3) fL Immature Gran % (Auto) 0.3 (0.0-0.4) % Neut % (Auto) 70.1 (45-73) % Lymph % (Auto) 14.1 L (20-40) % [place] % (Auto) 6.9 (2-11) % Eos % (Auto) 8.3 H (0-4) % Baso % (Auto) 0.3 (0-2) % Lymph # (Auto) 1.3 (1.2-4.9) X10*3/uL [place] # (Auto) 0.6 (0.1-1.2) X10*3/uL Eos # (Auto) 0.8 H (0.0-0.4) X10*3/uL Baso # (Auto) 0.0 (0.0-0.2) X10*3/uL Abs Immat Gran (auto) 0.03 (0.00-0.03) X10*3/uL Absolute Neuts (auto) 6.4 (2.0-8.3) x10*3/uL Absolute Nucleated RBC 0.000 (0.0-0.012) X10*3/uL Nucleated RBC % (auto) 0.0 (0.0-0.2) /100WBC Sodium 140 (135-145) mmol/L Potassium 4.7 (3.3-5.1) mmol/L Chloride 98 (96-108) mmol/L Carbon Dioxide 35 H (22-29) mmol/L Anion Gap 12 (12-20) BUN 17 H (9-16) mg/dL Creatinine 1.25 (0.5-1.4) mg/dL Estim Creat Clear Calc 56.4 Estimated GFR 45 POC Glucose 366 H* (60-115) mg/dL Random Glucose 364 H* (60-115) mg/dL Calcium 9.0 D (8.4-10.2) mg/dL COVID-19 (PRETTY) Negative (Negative) COVID-19 Clin Com See Note Influenza Type A (PCR) NEGATIVE (Negative) Influenza Type B (PCR) NEGATIVE (Negative) RSV RNA Qual (PCR) NEGATIVE (Negative) SARS-CoV-2 RNA (RT-PCR) NEGATIVE (Negative) Independent Interpretation I performed an independent interpretation of an: Plain X-Ray (Left medial malleolus fracture and and fibular fracture) Radiology Impression Discussion of test interpretation with radiology: I have reviewed the radiologist's reading. Radiologist Impression: XR/XR chest 2V IMPRESSION: Stable central peribronchial thickening/fullness. No new focal consolidation. No pleural effusion or pneumothorax. XR/XR ankle LT min 3V IMPRESSION: 1. Medial malleolar and distal fibular fractures. The fibular fracture extends above the level of the syndesmosis, recommend correlation with proximal radiographic views of the tibia/fibula and knee to rule out additional injuries. 2. Equivocal nondisplaced posterior malleolar fracture. 3. Significant soft tissue swelling. XR/XR tibia fibula LT 2V IMPRESSION: 1. Distal fibular fracture. 2. Degenerative changes in the knee. Independent Historian Clinical information obtained from an independent historian. History obtained from or confirmed by: EMS External Record Review External record reviewed: Outpatient record Prescription Management I considered prescription management with: Pain Medication Discharge Plan Discharge Clinical Impression: Medial malleolar fracture, Fracture of distal end of fibula, Closed fracture of posterior malleolus Patient Disposition: Still a Patient Instructions: Ankle Fracture (ED), Crutch Instructions (ED) Additional Instructions: You are not able to put any weight on the left leg/foot. The splint will need to remain in place at all times until you were seen by orthopedics outpatient. Do not remove it for any reason. It can not get wet. You can take Tylenol 500 mg, 2 tablets (1,000mg) every 4-6 hours as needed for pain, but not to exceed 3 doses daily (3,000mg).? Prescription for oxycodone was sent to the pharmacy to use as needed for severe pain that is unrelieved by Tylenol. This is a narcotic medication. It can be addictive. It can make you drowsy. You should not drive, drink alcohol, or work while taking this medication. Contact the orthopedic office 1st thing tomorrow morning to arrange for a follow-up visit. Prescriptions: No Action insulin glargine [Lantus Solostar U-100 Insulin] 100 unit/mL (3 mL) insulin pen 10 unit subcut DAILY albuterol sulfate 2.5 mg /3 mL (0.083 %) solution for nebulization 2.5 mg inhalation Q4H PRN (Reason: wheezing) atorvastatin 10 mg tablet 10 mg PO BEDTIME tizanidine 4 mg tablet 4 mg PO DAILY PRN (Reason: muscle spasm) clonazepam 1 mg tablet 1 mg PO BID PRN (Reason: Anxiety) oxcarbazepine 300 mg tablet 300 mg PO BID famotidine 20 mg tablet 20 mg PO BID trazodone 150 mg tablet 150 mg PO BEDTIME PRN (Reason: Sleep) promethazine 25 mg tablet 25 mg PO DAILY PRN (Reason: nausea) fluticasone propion-salmeterol [Advair Diskus] 500-50 mcg/dose blister with device 1 ea INHALATION BID gabapentin 100 mg capsule 100 mg PO TID albuterol sulfate [Ventolin HFA] 90 mcg/actuation HFA aerosol inhaler 2 puff inhalation Q4H PRN (Reason: wheezing) fluticasone propionate 50 mcg/actuation spray,suspension 1 spray intranasal DAILY PRN (Reason: allergies) Rx Instructions: INHALE IN BOTH NOSTRILS metformin 500 mg tablet extended release 24 hr 1,000 mg PO BID glipizide 5 mg tablet 5 mg PO DAILY insulin lispro 100 unit/mL insulin pen 1 sliding scale dose subcut TIDAC escitalopram oxalate 20 mg tablet 20 mg PO BEDTIME Eliquis 5 mg tablet 5 mg PO BID lurasidone 60 mg tablet 60 mg PO BEDTIME Referrals: Amairani DIAZ [Outside] Portia Elizabeth PA-C [Physician Target Trimmer] - Megan Mosqueda MD [Primary Care Provider] -
--- NOTE | 2023-06-14 22:56 | PC.RT ---
RT assessed pt, placed pt on 4L N/C home settings per pt. Pt has Portex 6.0 cuffless trach with clear, small secretions noted on drainage sponge. Spare trach(s) at pt's bedside, RN is aware. Pt's Spo2 is above 95% on 4L with passymeir valve in place. RN will call RT if further interventions are needed, MD aware as well.
[2023-06-14 22:58] VITALS: RESP 19
[2023-06-14] MEDS: Morphine Sulfate 4 MG/ML CARTRIDGE IM (22:58)
[2023-06-14 23:43] LABS: Influenza A PCR NEGATIVE (Negative); Influenza B PCR NEGATIVE (Negative); Resp Syncy Virus RNA Qual PCR NEGATIVE (Negative); SARS COV2 PCR INHOUSE NEGATIVE (Negative)
--- NOTE | 2023-06-14 23:44 | PC.NURSE ---
Took report from off-going RN. Pt is a 52 y/o female from home who presents for evaluation after mechanical fall. Pt c/o left ankle pain. Has a trach. Has been on O2 via NC at 4LPM. No IV access as of now. Will continue to monitor for changes.
[2023-06-15 00:34] VITALS: BP 108/53; PULSE 88; RESP 15; TEMP 36.6; O2SAT 96
[2023-06-15 02:47] VITALS: BP 97/61; PULSE 92; RESP 16; TEMP 36.7; O2SAT 97
[2023-06-15 04:02] VITALS: BP 109/73; PULSE 95; RESP 13; O2SAT 98
[2023-06-15 04:29] LABS: Basophils Percent Auto 0.3 % (0-2); Eosinophils Absolute Auto 0.8 X10*3/uL (0.0-0.4); Eosinophils Percent Auto 8.3 % (0-4); Hematocrit 35.1 % (37.0-47.0); Hemoglobin 10.7 g/dl (12.0-16.0); Imm Gran Abs Auto 0.03 X10*3/uL (0.00-0.03); Imm Gran Pct Auto 0.3 % (0.0-0.4); Lymphocytes Absolute Auto 1.3 X10*3/uL (1.2-4.9); Lymphocytes Percent Auto 14.1 % (20-40); MANUAL DIFF FLAG NO; Mean Corpuscular HGB Conc 30.5 g/dl (31.0-35.0); Mean Corpuscular Volume 88.6 fL (80.0-98.0); Mean Platelet Volume 9.3 fL (9.4-12.3); Monocytes Absolute Auto 0.6 X10*3/uL (0.1-1.2); Monocytes Percent Auto 6.9 % (2-11); Neutrophils Absolute Auto 6.4 x10*3/uL (2.0-8.3); Neutrophils Percent Auto 70.1 % (45-73); Platelet Count 240 X10*3/uL (160-400); Red Blood Count 3.96 X10*6/uL (4.20-5.50); Red Cell Distribution Width 14.6 % (11.0-16.0); White Blood Count 9.2 X10*3/uL (4.8-10.8)
[2023-06-15 04:40] LABS: COVID-19 Test Negative (Negative); IDNOW Serial# 152EDE1D
[2023-06-15 04:55] LABS: Anion Gap 12 (12-20); Blood Urea Nitrogen 17 mg/dL (9-16); Carbon Dioxide 35 mmol/L (22-29); Chloride 98 mmol/L (96-108); Creatinine Clr Calc Pharmacy 56.4; Estimated Glomerular Filt Rate 45; Glucose Random 364 mg/dL (60-115); Potassium 4.7 mmol/L (3.3-5.1); Sodium 140 mmol/L (135-145)
[2023-06-15 06:24] VITALS: BP 122/83; PULSE 99; RESP 16; O2SAT 95
[2023-06-15 07:29] LABS: Glucose, Whole Blood 366 mg/dL (60-115)
--- NOTE | 2023-06-15 07:43 | PC.NURSE ---
pt poc 366. OSEI Conn aware. awaiting for med rec to be completed by pharmacy. plan of care ongoing.
[2023-06-15] MEDS: oxyCODONE HCl Immed Release 5 MG TABLET 10 MG PO (09:09)
--- NOTE | 2023-06-15 11:50 | PHA.MEDREC ---
Pharmacy Consult ? Medication Reconciliation Pharmacy has completed the medication reconciliation, pt was unable to communicate, called who verified all current medications and said he takes care of her medications, said lantus is 10 units, not 12 units as it states in claims hx. Also said that she hasn't been using Advair 500-50 but he has been trying to get her to use it again because it helps her although he has had difficulty getting her to use it.
--- NOTE | 2023-06-15 12:04 | MHC.CM.ED ---
Addendum entered by Jessica Gayle 06/15/23 12:29: Patient declining STR. Requested referral to [facility]. [facility] is able to accept. Franck DRISCOLL booked for 115pm. Patient, Colleen Kirkpatrick Rn and Senia FRANZ aware. Original Note: Received case management consult overnight. Patient came to the ER after a fall. Found to have a left ankle fracture. Physical therapy eval completed. Short term rehab is recommended. Attempted to meet with patient in regards to discharge planning. Patient is currently sleeping. Spoke with patient's /HCP, Casimiro, via telephone at [phone]. 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 PCP verified. Copy of HCP verified to be on file. Patient has refused STR in the past. Casimiro feels patient will refuse STR this time. Anticipate patient will be agreeable to coming home with [facility] for alf and physical therapy. Will need BLS transport. T/W will verify this with patient when she is awake. Continue to monitor for d/c needs.
[2023-06-15 13:31] VITALS: BP 135/79; PULSE 115; RESP 18; TEMP 37.1; O2SAT 97
[2023-06-15 13:47] VITALS: BP 135/79; PULSE 115; RESP 18; TEMP 37.1; O2SAT 97
--- NOTE | 2023-06-15 13:49 | PC.NURSE ---
pt a&o x4, calm, and cooperative. pt found to be saturated in urine. hygiene given and pt changed into [facility] for transport home. EMS arrival to bring pt back home. education given. pt reporting 7/10 pain to L leg. prescription medications to be picked up for pain. pt speaking in full complete sentences. rr even/unlabored. plan of care ongoing.
== END 2023-06-15 13:51 | disposition still patient (30) ==
PROVIDERS: Nurse Practitioner Family; Emergency Provider Emergency Medicine; PCP Internal Medicine
DX: S82.52XA Displaced fracture of medial malleolus of left tibia, initial encounter for closed fracture (principal); S82.832A Other fracture of upper and lower end of left fibula, initial encounter for closed fracture; J96.10 Chronic respiratory failure, unspecified whether with hypoxia or hypercapnia; J45.909 Unspecified asthma, uncomplicated; E11.9 Type 2 diabetes mellitus without complications; Z93.0 Tracheostomy status; Z99.81 Dependence on supplemental oxygen; W01.0XXA Fall on same level from slipping, tripping and stumbling without subsequent striking against object, initial encounter; Y93.9 Activity, unspecified; Y92.003 Bedroom of unspecified non-institutional (private) residence as the place of occurrence of the external cause; Y99.9 Unspecified external cause status; Z11.52 Encounter for screening for COVID-19
CPT/HCPCS: 0241U; 29515; 36415; 71046; 73590; 73610; 80048; 82947; 85025; 87635; 96372; 97162; 99284; 99285; J2270

== ENCOUNTER 2023-06-16 14:42 | Emergency (ER) | payer OTHER, SELFPAY ==
--- NOTE | ~2023-06-16 | XR_ITS ---
EXAMINATION: XR CHEST CLINICAL INFORMATION: Weakness COMPARISON: Chest x-ray the second 2023 TECHNIQUE: Frontal portable view of the chest was obtained. 3:08 PM FINDINGS: Tracheostomy tube in place. Lung volume is low. This causes prominence of bronchovascular markings similar prior chest x-ray. No acute abnormality. Lungs are normally aerated. No pleural effusion or pneumothorax. Heart size is normal. No pulmonary vascular congestion. XR/XR chest 1V IMPRESSION: 1. Tracheostomy tube in place. 2. No acute abnormality of chest.
--- NOTE | 2023-06-16 14:49 | ED.WEAKNESS ---
HPI - Weakness General Chief complaint: General Medical Stated complaint: WEAKNESS, HIGH BS,PAIN CASTED ANKLE PER EMS Time Seen by Provider: 06/16/23 14:45 Source: patient, EMS and old records reviewed Mode of arrival: EMS Limitations: no limitations History of Present Illness HPI Narrative: 52 yo female with PMH of pneumonia, pancreatitis, DM, hypoxia - s/p trach PRN home O2 use, asthma, HTN, HLD, PE on eliquis, mood disorder just seen here on 06/13 and dx with L displaced medial malleolar fracture / posterio med mall fracture and distal fibular fracture ortho was involved and patient was placed in splint NWB kept for CM and sent home with and VNA services she comes back today with c/o elevated blood sugars after drinking a glass of Coke and chocolate Milk. 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 She also notes L leg pain and did not fill Rx for pain medications. She notes she needs inpatient rehab and her cannot care for her. MD Complaint: lack of energy Onset (ago): day(s) (2) Duration: constant Location: generalized Migration: none Severity: moderate Relieving factors: rest Exacerbating factors: movement Context: other (recent fall and L ankle fracture) Associated symptoms: other (increased thirst, increased blood sugar) Related Data Home Medications ?Medication ?Instructions ?Recorded ?Confirmed albuterol sulfate 2.5 mg/3 mL 2.5 mg inhalation Q4H PRN wheezing 02/02/23 06/15/23 (0.083 %) solution for nebulization albuterol sulfate 90 mcg/actuation 2 puff inhalation Q4H PRN wheezing 02/02/23 06/15/23 aerosol inhaler (Ventolin HFA) apixaban 5 mg tablet (Eliquis) 5 mg PO BID 02/02/23 06/15/23 atorvastatin 10 mg tablet 10 mg PO BEDTIME 02/02/23 06/15/23 clonazepam 1 mg tablet 1 mg PO BID PRN Anxiety 02/02/23 06/15/23 escitalopram oxalate 20 mg tablet 20 mg PO BEDTIME 02/02/23 06/15/23 famotidine 20 mg tablet 20 mg PO BID 02/02/23 06/15/23 fluticasone 500 mcg-salmeterol 50 1 ea inhalation BID 02/02/23 06/15/23 mcg/dose blistr powdr for inhalation (Advair Diskus) fluticasone propionate 50 1 spray intranasal DAILY PRN 02/02/23 06/15/23 mcg/actuation nasal allergies spray,suspension gabapentin 100 mg capsule 100 mg PO TID 02/02/23 06/15/23 glipizide 5 mg tablet 5 mg PO DAILY 02/02/23 06/15/23 insulin lispro 100 unit/mL 1 sliding scale dose subcut TIDAC 02/02/23 06/15/23 subcutaneous pen lurasidone 60 mg tablet 60 mg PO BEDTIME 02/02/23 06/15/23 metformin 500 mg tablet,extended 1,000 mg PO BID 02/02/23 06/15/23 release 24 hr oxcarbazepine 300 mg tablet 300 mg PO BID 02/02/23 06/15/23 promethazine 25 mg tablet 25 mg PO DAILY PRN nausea 02/02/23 06/15/23 tizanidine 4 mg tablet 4 mg PO DAILY PRN muscle spasm 02/02/23 06/15/23 trazodone 150 mg tablet 150 mg PO BEDTIME PRN Sleep 02/02/23 06/15/23 insulin glargine 100 unit/mL (3 10 unit subcut DAILY 06/15/23 06/15/23 mL) subcutaneous pen (Lantus Solostar U-100 Insulin) Allergies Allergy/AdvReac Type Severity Reaction Status Date / Time pantoprazole Allergy Unknown Verified 06/16/23 15:15 Review of Systems Review of Systems: Constitutional : No Fever, No Chills, pos fatigue ENT/Mouth : No Ear Pain, No Hoarseness, No sore throat Eyes: No Eye Pain, No Swelling, No Redness, No Foreign Body Cardiovascular : No Chest Pain, No SOB Respiratory : No Cough, No Dyspnea Gastrointestinal : No Nausea, No Vomiting, No Diarrhea, No abdominal Pain Genitourinary : No Dysuria, No Hematuria Musculoskeletal : positive joint pain, No Myalgias, No Joint Swelling Skin : No Skin lacerations, No rash Neuro : No Weakness, No Numbness, No Loss of Consciousness, No Dizziness, No Headache Psych : No Anxiety/Panic, No Depression Endocrine : pos Polyuria, pos Polydipsia All other systems reviewed and are negative PMFSH Past Medical History Attestation statement: The following information was validated with the patient. Source: old records reviewed Medical History History of cardiac arrest Wound drainage Takotsubo cardiomyopathy Kidney stones UTI (urinary tract infection) Bipolar 1 disorder Diabetes Asthma Substance abuse Surgical History S/P ureteral stent placement H/O exploratory laparotomy S/P cholecystectomy Family History Family History Mother No pertinent family history Father No pertinent family history Social History Social History Household Members: Spouse Household Members Other:: 1 Housing: Apartment Do you presently have visiting nurse or other home services: Yes Alcohol intake: never Comment: stayed in ed Patient Tobacco Use Status: Never used Tobacco Second Hand Smoke Exposure: Yes Advance Directives: Yes Advance Directives on File: Yes Advance Directives Date on File: 02/04/23 service: No Current occupational status: disabled Physical Exam Vital Signs: Vital Signs: Last Vital Signs Temp 98.5 F 06/16/23 15:11 Pulse 106 H 06/16/23 15:11 Resp 20 06/16/23 15:11 BP 124/76 06/16/23 15:11 Pulse Ox 95 06/16/23 15:11 O2 Del Method Nasal Cannula 06/16/23 15:11 Oxygen Flow Rate 2 06/16/23 15:11 BMI result Body Mass Index 36.3 Appearance: Alert. Oriented X3. No acute distress. Eyes: Pupils equal, round and reactive to light. ENT: Pharynx mildly dry MM Neck: Normal inspection. Neck supple. CVS: tachycardic heart rate and rhythm. Pulses normal. Respiratory: No respiratory distress. Breath sounds normal. Abdomen: Soft and nontender. Skin: Skin warm and dry. Normal skin color. Normal skin turgor. Extremities: No lower extremity edema. L leg splint intact SILT intact, BCR in all toes toes are warm and well perfused no pain with wiggling of toes or passive movements of the toes Neuro: Oriented X 3. No motor deficit. No sensory deficit. Course Course Course Narrative: physicial observation started at 456pm for placement Medications Administered Generic Name Dose Route Start Last Admin Trade Name Freq PRN Reason Stop Dose Admin Oxycodone HCl 5 mg 06/16/23 15:02 06/16/23 15:46 Oxycodone Hcl Immed Release 5 Mg Tablet PO 5 mg Q6H PRN Administration Pain, Moderate(Pain Scale 4-6) Discontinued Medications Generic Name Dose Route Start Last Admin Trade Name Freq PRN Reason Stop Dose Admin Insulin Human Lispro 5 unit 06/16/23 16:16 06/16/23 16:36 Insulin Lispro 100 Unit/Ml 3 Ml Vial SUBCUT 06/16/23 16:17 5 unit ONCE ONE Administration Medical Decision Making Medical Decision Making MDM Narrative: 52 yo female with PMH of pneumonia, pancreatitis, DM, hypoxia - s/p trach PRN home O2 use, asthma, HTN, HLD, PE on eliquis, mood disorder here with c/o need for inpatient rehab post fracture she cannot care for herself and also elevated blood sugar due to drinking coke and chocolate milk. The patient will need to get labs, CXR, EKG, UA to assess any underlying pathology. PO pain medications ordered. Differential Diagnosis Differential Diagnoses: The differential diagnosis associated with the presentation includes hyperglycemia due to noncompliance need for PT inpatient Admission/Observation Consideration of admission/observation: Escalation of care including admission/observation considered observation until placement Consult Healthcare Provider Management of the patient was discussed with: Sk[facility]der Lab Data [facility] Lab Attestation statement: I reviewed the patient's lab results. 06/16/23 16:11 06/16/23 16:11 Labs: Lab Results 06/16/23 06/16/23 06/16/23 Range/Units 15:05 16:04 16:11 WBC 7.5 (4.8-10.8) X10*3/uL RBC 3.94 L (4.20-5.50) X10*6/uL Hgb 10.7 L (12.0-16.0) g/dl Hct 34.8 L (37.0-47.0) % MCV 88.3 (80.0-98.0) fL MCH 27.2 (27.0-33.0) pg MCHC 30.7 L (31.0-35.0) g/dl RDW 14.5 (11.0-16.0) % Plt Count 209 (160-400) X10*3/uL MPV 9.7 (9.4-12.3) fL Immature Gran % (Auto) 0.3 (0.0-0.4) % Neut % (Auto) 71.2 (45-73) % Lymph % (Auto) 14.5 L (20-40) % Cottle % (Auto) 5.8 (2-11) % Eos % (Auto) 7.8 H (0-4) % Baso % (Auto) 0.4 (0-2) % Lymph # (Auto) 1.1 L (1.2-4.9) X10*3/uL Cottle # (Auto) 0.4 (0.1-1.2) X10*3/uL Eos # (Auto) 0.6 H (0.0-0.4) X10*3/uL Baso # (Auto) 0.0 (0.0-0.2) X10*3/uL Abs Immat Gran (auto) 0.02 (0.00-0.03) X10*3/uL Absolute Neuts (auto) 5.4 (2.0-8.3) x10*3/uL Absolute Nucleated RBC 0.000 (0.0-0.012) X10*3/uL Nucleated RBC % (auto) 0.0 (0.0-0.2) /100WBC VBG pH (7.32-7.43) VBG pCO2 mmHg VBG pO2 mmHg VBG HCO3 (22-26) mmol/L VBG O2 Saturation % VBG Base Excess mmol/L Sodium 131 L (135-145) mmol/L Potassium 4.7 (3.3-5.1) mmol/L Chloride 94 L (96-108) mmol/L Carbon Dioxide 30 H (22-29) mmol/L Anion Gap 12 (12-20) BUN 13 (9-16) mg/dL Creatinine 1.15 (0.5-1.4) mg/dL Estim Creat Clear Calc 61.3 Estimated GFR 49 POC Glucose 567 H* 505 H* (60-115) mg/dL Random Glucose 551 H* (60-115) mg/dL Calcium 8.8 (8.4-10.2) mg/dL Magnesium 1.6 (1.6-2.6) mg/dL Total Bilirubin 0.4 (0.0-1.0) mg/dL Direct Bilirubin 0.1 (0.0-0.5) mg/dL AST 13 (5-31) U/L ALT 24 (0-31) U/L Alkaline Phosphatase 154 H (39-117) U/L Total Protein 6.3 L (6.5-8.0) g/dL Albumin 3.2 L (3.5-5.0) g/dL Lipase 12 (8-78) U/L 06/16/23 Range/Units 16:14 WBC (4.8-10.8) X10*3/uL RBC (4.20-5.50) X10*6/uL Hgb (12.0-16.0) g/dl Hct (37.0-47.0) % MCV (80.0-98.0) fL MCH (27.0-33.0) pg MCHC (31.0-35.0) g/dl RDW (11.0-16.0) % Plt Count (160-400) X10*3/uL MPV (9.4-12.3) fL Immature Gran % (Auto) (0.0-0.4) % Neut % (Auto) (45-73) % Lymph % (Auto) (20-40) % Cottle % (Auto) (2-11) % Eos % (Auto) (0-4) % Baso % (Auto) (0-2) % Lymph # (Auto) (1.2-4.9) X10*3/uL Cottle # (Auto) (0.1-1.2) X10*3/uL Eos # (Auto) (0.0-0.4) X10*3/uL Baso # (Auto) (0.0-0.2) X10*3/uL Abs Immat Gran (auto) (0.00-0.03) X10*3/uL Absolute Neuts (auto) (2.0-8.3) x10*3/uL Absolute Nucleated RBC (0.0-0.012) X10*3/uL Nucleated RBC % (auto) (0.0-0.2) /100WBC VBG pH 7.39 (7.32-7.43) VBG pCO2 54 mmHg VBG pO2 47 mmHg VBG HCO3 33 H (22-26) mmol/L VBG O2 Saturation 75.0 % VBG Base Excess 7.1 mmol/L Sodium (135-145) mmol/L Potassium (3.3-5.1) mmol/L Chloride (96-108) mmol/L Carbon Dioxide (22-29) mmol/L Anion Gap (12-20) BUN (9-16) mg/dL Creatinine (0.5-1.4) mg/dL Estim Creat Clear Calc Estimated GFR POC Glucose (60-115) mg/dL Random Glucose (60-115) mg/dL Calcium (8.4-10.2) mg/dL Magnesium (1.6-2.6) mg/dL Total Bilirubin (0.0-1.0) mg/dL Direct Bilirubin (0.0-0.5) mg/dL AST (5-31) U/L ALT (0-31) U/L Alkaline Phosphatase (39-117) U/L Total Protein (6.5-8.0) g/dL Albumin (3.5-5.0) g/dL Lipase (8-78) U/L Independent Interpretation I performed an independent interpretation of an: EKG and Plain X-Ray (no pneumonia) Interpretation: Rate: 104 Rhythm: sinus tachycardia Ulmer: left Normal P waves. Normal SHELBY. Normal QRS complex. ST T wave : normal no LULI qTC: 473 prior studies: no acute ischemia The study has been interpreted contemporaneously by me. . Independent Historian Clinical information obtained from an independent historian. 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 insulin use: with fdc use Qualified Code(s): E11.65 - Type 2 diabetes mellitus with hyperglycemia Ankle fracture, left Qualifiers: Encounter type: initial encounter Fracture type: closed Qualified Code(s): S82.892A - Other fracture of left lower leg, initial encounter for closed fracture Patient Disposition: Still a Patient Prescriptions: No Action insulin glargine [Lantus Solostar U-100 Insulin] 100 unit/mL (3 mL) insulin pen 10 unit subcut DAILY albuterol sulfate 2.5 mg /3 mL (0.083 %) solution for nebulization 2.5 mg inhalation Q4H PRN (Reason: wheezing) atorvastatin 10 mg tablet 10 mg PO BEDTIME tizanidine 4 mg tablet 4 mg PO DAILY PRN (Reason: muscle spasm) clonazepam 1 mg tablet 1 mg PO BID PRN (Reason: Anxiety) oxcarbazepine 300 mg tablet 300 mg PO BID famotidine 20 mg tablet 20 mg PO BID trazodone 150 mg tablet 150 mg PO BEDTIME PRN (Reason: Sleep) promethazine 25 mg tablet 25 mg PO DAILY PRN (Reason: nausea) fluticasone propion-salmeterol [Advair Diskus] 500-50 mcg/dose blister with device 1 ea INHALATION BID gabapentin 100 mg capsule 100 mg PO TID albuterol sulfate [Ventolin HFA] 90 mcg/actuation HFA aerosol inhaler 2 puff inhalation Q4H PRN (Reason: wheezing) fluticasone propionate 50 mcg/actuation spray,suspension 1 spray intranasal DAILY PRN (Reason: allergies) Rx Instructions: INHALE IN BOTH NOSTRILS metformin 500 mg tablet extended release 24 hr 1,000 mg PO BID glipizide 5 mg tablet 5 mg PO DAILY insulin lispro 100 unit/mL insulin pen 1 sliding scale dose subcut TIDAC escitalopram oxalate 20 mg tablet 20 mg PO BEDTIME Eliquis 5 mg tablet 5 mg PO BID lurasidone 60 mg tablet 60 mg PO BEDTIME Print Language: Grenadian
--- NOTE | 2023-06-16 15:02 | ECG_ITS ---
Test Reason : CHEST PAIN Blood Pressure : / mmHG Vent. Rate : 104 BPM Atrial Rate : 104 BPM P-R Int : 164 ms QRS Dur : 088 ms QT Int : 360 ms P-R-T Axes : 044 -11 034 degrees QTc Int : 473 ms Sinus tachycardia Cannot rule out Anterior infarct (cited on or before 02-FEB-2023) Abnormal ECG When compared with ECG of 01-MAY-2023 05:24, Vent. rate has increased BY 38 BPM T wave amplitude has decreased in Inferior leads T wave inversion now evident in Anterior leads QT has shortened Referred By: Elisabet Mortensen Electronically Signed By:LAMBERT DE LA CRUZ MD
[2023-06-16 15:10] LABS: Glucose, Whole Blood 567 mg/dL (60-115)
[2023-06-16 15:11] VITALS: BP 124/76; PULSE 106; RESP 20; TEMP 36.9; O2SAT 95; BMI 36.3
[2023-06-16] MEDS: oxyCODONE HCl Immed Release 5 MG TABLET PO ×2 (15:46→21:35)
[2023-06-16 16:09] LABS: Glucose, Whole Blood 505 mg/dL (60-115)
[2023-06-16 16:18] LABS: MANUAL DIFF FLAG NO
[2023-06-16 16:24] LABS: VBG Base Excess 7.1 mmol/L; VBG HCO3 33 mmol/L (22-26); VBG pCO2 54 mmHg; VBG pH 7.39 (7.32-7.43); VBG pO2 47 mmHg
[2023-06-16 16:24] LABS: Basophils Percent Auto 0.4 % (0-2); Eosinophils Absolute Auto 0.6 X10*3/uL (0.0-0.4); Eosinophils Percent Auto 7.8 % (0-4); Hematocrit 34.8 % (37.0-47.0); Hemoglobin 10.7 g/dl (12.0-16.0); Imm Gran Abs Auto 0.02 X10*3/uL (0.00-0.03); Imm Gran Pct Auto 0.3 % (0.0-0.4); Lymphocytes Absolute Auto 1.1 X10*3/uL (1.2-4.9); Lymphocytes Percent Auto 14.5 % (20-40); Mean Corpuscular HGB Conc 30.7 g/dl (31.0-35.0); Mean Corpuscular Hemoglobin 27.2 pg (27.0-33.0); Mean Corpuscular Volume 88.3 fL (80.0-98.0); Mean Platelet Volume 9.7 fL (9.4-12.3); Monocytes Absolute Auto 0.4 X10*3/uL (0.1-1.2); Monocytes Percent Auto 5.8 % (2-11); Neutrophils Absolute Auto 5.4 x10*3/uL (2.0-8.3); Neutrophils Percent Auto 71.2 % (45-73); Platelet Count 209 X10*3/uL (160-400); Red Blood Count 3.94 X10*6/uL (4.20-5.50); Red Cell Distribution Width 14.5 % (11.0-16.0); White Blood Count 7.5 X10*3/uL (4.8-10.8)
[2023-06-16 16:25] LABS: Venous Blood Gas Refer to POC result
[2023-06-16] MEDS: Insulin Lispro 100 UNIT/ML 3 ML VIAL SUBCUT ×3 (16:36→20:18)
--- NOTE | 2023-06-16 16:45 | MHC.EDTECH ---
Patient inc therfore complete bed change
[2023-06-16 16:48] LABS: Alanine Aminotransferase 24 U/L (0-31); Albumin Level 3.2 g/dL (3.5-5.0); Alkaline Phosphatase 154 U/L (39-117); Anion Gap 12 (12-20); Aspartate Amino Transferase 13 U/L (5-31); Bilirubin Direct 0.1 mg/dL (0.0-0.5); Bilirubin Total 0.4 mg/dL (0.0-1.0); Blood Urea Nitrogen 13 mg/dL (9-16); Calcium 8.8 mg/dL (8.4-10.2); Carbon Dioxide 30 mmol/L (22-29); Chloride 94 mmol/L (96-108); Creatinine Clr Calc Pharmacy 61.3; Estimated Glomerular Filt Rate 49; Glucose Random 551 mg/dL (60-115); Lipase 12 U/L (8-78); Magnesium 1.6 mg/dL (1.6-2.6); Potassium 4.7 mmol/L (3.3-5.1); Sodium 131 mmol/L (135-145); Total Protein 6.3 g/dL (6.5-8.0)
[2023-06-16 16:57] LABS: Influenza A PCR NEGATIVE (Negative); Influenza B PCR NEGATIVE (Negative); Resp Syncy Virus RNA Qual PCR NEGATIVE (Negative); SARS COV2 PCR INHOUSE NEGATIVE (Negative)
[2023-06-16 18:29] LABS: Glucose, Whole Blood 383 mg/dL (60-115)
--- NOTE | 2023-06-16 18:36 | MHC.EDTECH ---
Patient given dinner tray
[2023-06-16 18:42] VITALS: BP 113/49; PULSE 100; RESP 18; O2SAT 95
--- NOTE | 2023-06-16 18:44 | PC.NURSE ---
Addendum entered by Colleen Sr 06/16/23 18:44: utilizes oxygen prn from 2L - 4L Original Note: patient to be case mgmt workup. coming from home and cannot take care of herself safely. has previous leg fracture and is to be nonweight bearing.
--- NOTE | 2023-06-16 19:24 | PC.NURSE ---
Assumed care of the pt at 1900. Pt is resting in bed, complaining of 7/10 pain in the left leg. Pt requested ice water which was given. Pt has no other complaints at this time. Pt is case management, pending placement.
--- NOTE | 2023-06-16 19:29 | MHC.CM.ED ---
CM met with patient at the request of Dr. Mortensen. Pt is A&Ox4. Pt was seen here on 06/13 with an ankle fx. PT saw patient and recommended STR. Pt declined STR and D/C home with [facility]. Pt is NWB. Pt returned today, as is unable to care for her at home. Pt has a trach which she cares for and uses oxygen prn at 2-4 Liters. Pt is normally independent and uses a cane prn. 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 She lives with her /HCP Casimiro Reagan ([phone]). HCP is on file. PCP is verified. Pt is now agreeable to STR. Requests [facility], unfortunately acute rehab [facility]. Referrals made to STR that accepts patient's insurance. CM will follow for discharge planning.
[2023-06-16 20:16] LABS: Glucose, Whole Blood 400 mg/dL (60-115)
--- NOTE | 2023-06-16 20:23 | PC.NURSE ---
POC result communicated to Dr Mortensen, pt medicated per sliding scale. Pt also complaining of 8/10 pain, requested something stronger thatn her oxycodone. I spoke with MD who stated he did not want to give anything stronger. I explained to pt who was agreeable. Next possible administration is at 21:46. Pt aware of this, will medicate when it is time.
[2023-06-16] MEDS: Famotidine 20 MG TABLET PO (21:35)
[2023-06-16] MEDS: Gabapentin 100 MG CAPSULE PO (21:35)
[2023-06-16] MEDS: Lurasidone HCl 20 MG TABLET 60 MG PO (21:35)
[2023-06-16] MEDS: OXcarbazepine 300 MG TABLET PO (21:35)
[2023-06-16] MEDS: Escitalopram Oxalate 20 MG TABLET PO (21:35)
[2023-06-16] MEDS: Atorvastatin Calcium 10 MG TABLET PO (21:35)
[2023-06-16] MEDS: Apixaban 5 MG TABLET PO (21:35)
[2023-06-16] MEDS: metFORMIN HCl ER 500 MG TAB.ER.24H 1000 MG PO (21:35)
--- NOTE | 2023-06-16 21:57 | PHA.MEDREC ---
Pharmacy Consult ? Medication Reconciliation Pharmacy has completed the medication reconciliation. Patient recently discharge from ED on 06/15/23, med rec completed by Darryn Buck on that visit. Utilized discharge for med rec. Lyndsey MurryD
[2023-06-16 22:32] VITALS: BP 120/45; PULSE 88; RESP 16; TEMP 36.6; O2SAT 90
[2023-06-16 22:51] LABS: Appearance Urine Clear; Color Urine Yellow; Glucose Urine UA >=1000 mg/dL (Negative); Leukocyte Esterase Urine Negative (Negative); Nitrite Urine Positive (Negative); PH 5.5 (5.0-9.0); Specific Gravity - Urine >= 1.030 (1.005-1.025); UMIC TRIGGER UACC YES; Urine Blood Negative (Negative); Urine Ketones Negative (Negative); Urine Protein Negative (Neg-Trace)
[2023-06-16 23:02] LABS: Bacteria Urine 4+ (None Seen); Hyaline Casts Urine 0-2 /LPF (0-2); RBC Urine 0-2 /HPF (0-2); Squamous Epithelial Cell Urine 0-2 /HPF (0-2); UACC Culture Trigger YES; WBC Urine 21-50 /HPF (0-5)
[2023-06-17] VITALS (7 sets, daily range): BP systolic 107–184; BP diastolic 67–89; PULSE 80–100; RESP 16–21; TEMP 36.6–37.1; O2SAT 92–95
[2023-06-17 05:32] LABS: Glucose, Whole Blood 330 mg/dL (60-115)
[2023-06-17] MEDS: Fluticasone/Vilanterol 200/25 BLST.W.DEV 1 PUFF INHALE (07:23)
[2023-06-17 07:25] LABS: Glucose, Whole Blood 391 mg/dL (60-115)
--- NOTE | 2023-06-17 07:39 | MHC.EDTECH ---
placed a new purewick, replaced pad and patient cleaned herself with wipes. tolerated well
[2023-06-17] MEDS: Insulin Glargine,Hum.rec.anlog 100 UNIT/ML 10 ML VIAL 10 UNIT SUBCUT (08:14)
[2023-06-17] MEDS: Famotidine 20 MG TABLET PO ×2 (08:14→20:28)
[2023-06-17] MEDS: Insulin Lispro 100 UNIT/ML 3 ML VIAL SUBCUT ×3 (08:14→19:59)
[2023-06-17] MEDS: metFORMIN HCl ER 500 MG TAB.ER.24H 1000 MG PO ×2 (08:14→20:27)
[2023-06-17] MEDS: Gabapentin 100 MG CAPSULE PO ×3 (08:14→20:27)
[2023-06-17] MEDS: OXcarbazepine 300 MG TABLET PO ×2 (08:15→20:27)
[2023-06-17] MEDS: Apixaban 5 MG TABLET PO ×2 (08:15→20:27)
[2023-06-17] MEDS: oxyCODONE HCl Immed Release 5 MG TABLET PO ×2 (08:18→16:31)
--- NOTE | 2023-06-17 08:28 | PC.NURSE ---
called pharmacy for meds not available in pyxis
[2023-06-17] MEDS: glipiZIDE 5 MG TABLET PO (09:20)
[2023-06-17] MEDS: TiZANidine HCL 4 MG TABLET PO (09:20)
--- NOTE | 2023-06-17 12:59 | MHC.CM.PN ---
Pt continues to board in ED awaiting STR placement as indicated by PT eval. Review of EMR does not support INPT or OBS admission. No offers as of this note: facilities are citing no bed availability or concerns w/her past drug hx, lack of tox screen and chronic trach. Communications ongoing with [facility] and [facility] sites. May need to expand search if no offers today. CM to follow.
[2023-06-17 13:00] LABS: Glucose, Whole Blood 297 mg/dL (60-115)
[2023-06-17] MEDS: clonazePAM 1 MG TABLET PO (16:35)
--- NOTE | 2023-06-17 17:38 | MHC.CM.ED ---
Drug tox screen pending. Pt is currently taking Roxicodone and gabapentin for pain. [facility] and [facility] reviewing. Additional referrals placed within 50 miles. Barriers include: chronic trach and hx of substance abuse (in past), not current. CM will follow for discharge planning. Pt is NWB with fx ankle and cannot manage at home.
[2023-06-17 18:02] LABS: Glucose, Whole Blood 241 mg/dL (60-115)
--- NOTE | 2023-06-17 19:20 | PC.NURSE ---
Assumed care of pt. Pt lying on stretcher, no acute distress, c/o LLE pain 12/21. Plan to medicate per available orders. Continuing plan of care for PT/CM.
[2023-06-17 19:27] LABS: Glucose, Whole Blood 330 mg/dL (60-115)
[2023-06-17] MEDS: traZODone HCL 50 MG TABLET 150 MG PO (20:26)
[2023-06-17] MEDS: Escitalopram Oxalate 20 MG TABLET PO (20:27)
[2023-06-17] MEDS: Atorvastatin Calcium 10 MG TABLET PO (20:27)
[2023-06-17] MEDS: Lurasidone HCl 20 MG TABLET 60 MG PO (20:33)
[2023-06-17 23:56] LABS: Amphetamine Screen Urine Not Detected (Not Detect); Barbiturates, Urine Not Detected (Not Detect); Benzodiazepines Screen Urine Not Detected (Not Detect); Cannabinoid Screen Urine Not Detected (Not Detect); Cocaine Screen Urine Not Detected (Not Detect); Fentanyl, urine Not Detected (Not Detect); Opiate Screen Urine Not Detected (Not Detect); Phencyclidine Screen Urine Not Detected (Not Detect)
[2023-06-18 06:14] VITALS: BP 139/74; PULSE 97; RESP 16; O2SAT 92
[2023-06-18] MEDS: clonazePAM 1 MG TABLET PO (06:30)
[2023-06-18] MEDS: oxyCODONE HCl Immed Release 5 MG TABLET PO ×2 (06:30→20:07)
[2023-06-18] MEDS: Promethazine HCL 25 MG TABLET PO (06:30)
[2023-06-18] MEDS: Insulin Lispro 100 UNIT/ML 3 ML VIAL SUBCUT ×3 (07:21→18:45)
[2023-06-18 07:23] LABS: Glucose, Whole Blood 335 mg/dL (60-115)
[2023-06-18] MEDS: Fluticasone/Vilanterol 200/25 BLST.W.DEV 1 PUFF INHALE (08:08)
[2023-06-18] MEDS: cefuroxime axetiL 500 MG TABLET PO ×2 (08:47→20:07)
[2023-06-18] MEDS: Gabapentin 100 MG CAPSULE PO ×3 (08:47→20:07)
[2023-06-18] MEDS: OXcarbazepine 300 MG TABLET PO ×2 (08:48→20:07)
[2023-06-18] MEDS: Famotidine 20 MG TABLET PO ×2 (08:48→20:07)
[2023-06-18] MEDS: metFORMIN HCl ER 500 MG TAB.ER.24H 1000 MG PO ×2 (08:48→20:07)
[2023-06-18] MEDS: Apixaban 5 MG TABLET PO ×2 (08:48→20:07)
[2023-06-18] MEDS: Insulin Glargine,Hum.rec.anlog 100 UNIT/ML 10 ML VIAL 10 UNIT SUBCUT (08:49)
[2023-06-18] MEDS: glipiZIDE 5 MG TABLET PO (10:25)
[2023-06-18 13:41] LABS: Glucose, Whole Blood 344 mg/dL (60-115)
[2023-06-18 14:44] VITALS: BP 133/73; PULSE 84; RESP 16; O2SAT 94
[2023-06-18 18:38] LABS: Glucose, Whole Blood 266 mg/dL (60-115)
--- NOTE | 2023-06-18 20:06 | PC.NURSE ---
pt reports difficulty sleeping and lack of sleep for the past several nights. requests PRN trazodone. PN reports 7/10 leg pain, requests PRN oxycodone
[2023-06-18] MEDS: Escitalopram Oxalate 20 MG TABLET PO (20:07)
[2023-06-18] MEDS: Atorvastatin Calcium 10 MG TABLET PO (20:07)
[2023-06-18] MEDS: traZODone HCL 50 MG TABLET 150 MG PO (20:08)
[2023-06-18] MEDS: Lurasidone HCl 20 MG TABLET 60 MG PO (20:31)
--- NOTE | 2023-06-18 22:01 | PC.NURSE ---
Patient currently resting comfortably on stretcher in no apparent distress, call aaron within reach. RR even/unlabored. plan of care ongoing.
[2023-06-18 22:05] VITALS: BP 137/74; PULSE 83; RESP 20; TEMP 36.8; O2SAT 93
[2023-06-19 05:55] VITALS: BP 155/79; PULSE 88; RESP 14; TEMP 36.6; O2SAT 91
[2023-06-19] MEDS: TiZANidine HCL 4 MG TABLET PO (06:05)
[2023-06-19] MEDS: oxyCODONE HCl Immed Release 5 MG TABLET PO ×3 (06:05→18:37)
[2023-06-19 07:37] LABS: Glucose, Whole Blood 321 mg/dL (60-115)
[2023-06-19] MEDS: Fluticasone/Vilanterol 200/25 BLST.W.DEV 1 PUFF INHALE (07:43)
[2023-06-19 07:44] VITALS: RESP 18
[2023-06-19] MEDS: Insulin Lispro 100 UNIT/ML 3 ML VIAL SUBCUT ×3 (07:46→18:37)
[2023-06-19] MEDS: metFORMIN HCl ER 500 MG TAB.ER.24H 1000 MG PO ×2 (07:47→20:54)
[2023-06-19] MEDS: Insulin Glargine,Hum.rec.anlog 100 UNIT/ML 10 ML VIAL 10 UNIT SUBCUT (07:47)
[2023-06-19] MEDS: Gabapentin 100 MG CAPSULE PO ×3 (07:48→20:54)
[2023-06-19] MEDS: cefuroxime axetiL 500 MG TABLET PO ×2 (07:48→20:54)
[2023-06-19] MEDS: Famotidine 20 MG TABLET PO ×2 (07:48→20:54)
[2023-06-19] MEDS: Apixaban 5 MG TABLET PO ×2 (07:48→20:54)
[2023-06-19] MEDS: OXcarbazepine 300 MG TABLET PO ×2 (07:48→20:54)
[2023-06-19 08:53] VITALS: BP 116/75; PULSE 76; RESP 18; TEMP 36.6; O2SAT 92
[2023-06-19] MEDS: glipiZIDE 5 MG TABLET PO (09:21)
--- NOTE | 2023-06-19 11:31 | MHC.CM.ED ---
Addendum entered by Sindi Molina 06/19/23 14:54: [facility] interested in pt and has clinically accepted pending review w/respiratory staff on 06/19. Went to see pt and spouse (who was visiting) to inform them. Both state facility is too far and they would like to return to home. Pt and spouse feel more comfortable about transferring and are requesting crutches and a commode for home use. Discussed w/ED provider who will ensure pt has scripts for both. Spouse asks for a d/c tomorrow so he has time to prepare the home for her return. Pt receptive to [facility] referral for skilled RN and PT visits: Referral made. CM updated ED PA and RN of revised d/c plan. Awaiting acceptance from [facility]. ED CM to follow. Original Note: Pt continues to hold in the ED for STR placement: Barriers include chronic trach, limited payor facilities and very remote hx of substance use. STR search extended to 100 mile radius with 40 new facilities attempted. Will await responses. Pt and ED staff updated on above.
[2023-06-19 12:37] LABS: Glucose, Whole Blood 266 mg/dL (60-115)
--- NOTE | 2023-06-19 14:59 | PC.NURSE ---
PT'S MEDS AND INSULIN GIVEN AND DOCUMENTED ORDERED. PT INDEPENDENT WITH TRACH MAINTENANCE. NO COMPLAINTS AT THIS TIME.
[2023-06-19 15:39] VITALS: BP 133/92; PULSE 97; O2SAT 94
[2023-06-19 18:16] LABS: Glucose, Whole Blood 210 mg/dL (60-115)
[2023-06-19 18:17] VITALS: BP 137/60; PULSE 86; O2SAT 92
[2023-06-19] MEDS: Atorvastatin Calcium 10 MG TABLET PO (20:54)
[2023-06-19] MEDS: Escitalopram Oxalate 20 MG TABLET PO (20:54)
--- NOTE | 2023-06-19 20:58 | PC.NURSE ---
pt given bedtime meds. tolerated with water. belongings within reach. call aaron within reach. pt requests lights off and door closed. nad.
--- NOTE | 2023-06-19 21:01 | PC.NURSE ---
pharmacy aware latuda not stocked in pyxis. awaiting delivery to ed.
[2023-06-19 21:54] VITALS: BP 143/56; PULSE 92; RESP 18; TEMP 36.9; O2SAT 95
[2023-06-19] MEDS: Lurasidone HCl 20 MG TABLET 60 MG PO (22:13)
[2023-06-19] MEDS: traZODone HCL 50 MG TABLET 150 MG PO (22:34)
--- NOTE | 2023-06-19 22:38 | PC.NURSE ---
pt request prn trazodone to help sleep. nad. call aaron and belongings within reach.
[2023-06-19 23:31] LABS: Glucose, Whole Blood 418 mg/dL (60-115)
--- NOTE | 2023-06-19 23:51 | PC.NURSE ---
poc 418. Yoandy FRANZ made aware.
[2023-06-20] MEDS: Insulin Lispro 100 UNIT/ML 3 ML VIAL 10 UNIT SUBCUT (00:15)
[2023-06-20] MEDS: oxyCODONE HCl Immed Release 5 MG TABLET PO ×2 (00:15→07:55)
--- NOTE | 2023-06-20 00:17 | PC.NURSE ---
pt requested prn for pain. insulin given per may.
[2023-06-20 00:58] LABS: Glucose, Whole Blood 427 mg/dL (60-115)
[2023-06-20 01:30] VITALS: RESP 15
[2023-06-20 01:44] LABS: Glucose, Whole Blood 399 mg/dL (60-115)
--- NOTE | 2023-06-20 02:08 | PC.NURSE ---
chen cuellar aware of poc.
[2023-06-20 06:10] VITALS: BP 104/54; PULSE 91; RESP 14; TEMP 36.5; O2SAT 91
[2023-06-20 07:40] LABS: Glucose, Whole Blood 301 mg/dL (60-115)
[2023-06-20] MEDS: Insulin Lispro 100 UNIT/ML 3 ML VIAL SUBCUT ×2 (07:54→11:48)
[2023-06-20] MEDS: metFORMIN HCl ER 500 MG TAB.ER.24H 1000 MG PO (07:55)
[2023-06-20] MEDS: Gabapentin 100 MG CAPSULE PO (07:55)
[2023-06-20] MEDS: OXcarbazepine 300 MG TABLET PO (07:55)
[2023-06-20] MEDS: Famotidine 20 MG TABLET PO (07:55)
[2023-06-20] MEDS: cefuroxime axetiL 500 MG TABLET PO (07:55)
[2023-06-20] MEDS: Apixaban 5 MG TABLET PO (07:55)
[2023-06-20] MEDS: Albuterol Sulfate (0.083%) 2.5 MG/3 ML VIAL.NEB INHALE (08:01)
[2023-06-20] MEDS: Fluticasone/Vilanterol 200/25 BLST.W.DEV 1 PUFF INHALE (08:01)
[2023-06-20 08:02] VITALS: RESP 18
--- NOTE | 2023-06-20 08:09 | PC.NURSE ---
alert and oriented, patient was resting with eyes closed, awake to verbal stimuli. requesting prn pain medications/updraft at this time. patient states she has been able to move from bed to commode independently. medicated per the MAR, eating breakfast. call aaron within reach.
[2023-06-20] MEDS: glipiZIDE 5 MG TABLET PO (10:05)
[2023-06-20] MEDS: Insulin Glargine,Hum.rec.anlog 100 UNIT/ML 10 ML VIAL 10 UNIT SUBCUT (10:05)
[2023-06-20] MEDS: Promethazine HCL 25 MG TABLET PO (10:06)
--- NOTE | 2023-06-20 10:47 | PC.NURSE ---
patient to be discharged, awaiting ambulance to bring patient home for noon
[2023-06-20 11:36] VITALS: BP 143/78; PULSE 98; RESP 16; O2SAT 95
[2023-06-20] MEDS: clonazePAM 1 MG TABLET PO (11:41)
[2023-06-20 11:48] LABS: Glucose, Whole Blood 241 mg/dL (60-115)
[2023-06-20 11:55] VITALS: BP 143/78; PULSE 98; RESP 16; TEMP 36.6; O2SAT 95
== END 2023-06-20 11:57 | disposition still patient (30) ==
PROVIDERS: Physician Assistant; Emergency Provider Emergency Medicine; PCP Internal Medicine
DX: S82.892A Other fracture of left lower leg, initial encounter for closed fracture (principal); R53.1 Weakness; E11.65 Type 2 diabetes mellitus with hyperglycemia; X58.XXXA Exposure to other specified factors, initial encounter; Y93.9 Activity, unspecified; Y92.9 Unspecified place or not applicable; Y99.8 Other external cause status; R07.89 Other chest pain; R00.0 Tachycardia, unspecified; Z20.822 Contact with and (suspected) exposure to COVID-19; Z11.52 Encounter for screening for COVID-19; Z79.4 Long term (current) use of insulin; Z99.81 Dependence on supplemental oxygen; Z79.01 Long term (current) use of anticoagulants; Z79.899 Other long term (current) drug therapy
CPT/HCPCS: 0241U; 36415; 71045; 80048; 80076; 80307; 81001; 82803; 82947; 83690; 83735; 85025; 87086; 87088; 87186; 93005; 94640; 99285

== ENCOUNTER → 2023-06-16 15:02 | Outpatient (BNV) | payer OTHER, SELFPAY | PROVIDERS: Emergency Provider Emergency Medicine; PCP Internal Medicine; Visit Provider Internal Medicine Cardiovascular Disease | DX: R94.31 Abnormal electrocardiogram [ECG] [EKG] (principal); R00.0 Tachycardia, unspecified | CPT/HCPCS: 93010 ==

== ENCOUNTER 2023-06-23 14:10 | Outpatient (AMB) | payer OTHER, SELFPAY ==
--- NOTE | 2023-06-23 14:41 | MHC.OFFVIS ---
Intake Intake Visit Reasons: New Pt - LT ankle pain Intake Note: Anna Marie is a 52 year old female who presents today as a new patient for a evaluation of her left ankle pain, DOI 06/14/23. Patient reports when she was trying get into bed, she lost her balance and fell. She expresses that she is having throbbing pain. Allergies pantoprazole Allergy (Verified 06/23/23 14:43) Unknown HPI New Pt - LT ankle pain HPI Details 52-year-old female who presents in the office today, as a new patient, for an evaluation of left ankle pain. Patient presented to the ED on 06/14/2023 status post attempting to get into bed when she tripped and fell. X-rays were obtained. Patient was placed into a posterior splint and stirrup splint. While in the office the patient reports she was trying to get into the bed when she missed the edge of the bed causing her to do the splits. She reports having throbbing pain. Patient confirms having diabetes. She reports her elevated numbers were due to recently having Prednisone. She also reports having Gatorade Zero. She reports her morning glucose was 229. Patient reports in 10/2020 she went into cardiac arrest due to having difficulty breathing. 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 Reports she was breathing 40+ times a minute. This occurred in 02/2021-03/2021. Patient confirms being ambulatory with a cane. [facility], [facility] Medical History History of cardiac arrest Wound drainage Takotsubo cardiomyopathy Kidney stones UTI (urinary tract infection) Bipolar 1 disorder Diabetes Asthma Substance abuse Surgical History S/P ureteral stent placement H/O exploratory laparotomy S/P cholecystectomy Family History Mother No pertinent family history Father No pertinent family history Social History Household Members: Spouse Household Members Other:: 1 Housing: Apartment Do you presently have visiting nurse or other home services: Yes Alcohol intake: never Comment: stayed in ed Patient Tobacco Use Status: Never used Tobacco Second Hand Smoke Exposure: Yes Advance Directives Date on File: 02/04/23 service: No Current occupational status: disabled Review of Systems Const All systems reviewed & are unremarkable except as noted in HPI and below Physical Exam Const General: cooperative and no acute distress Orientation/consciousness: patient oriented x3 Resp Effort & Inspection: normal respiratory effort and able to speak in complete sentences Cardio Peripheral pulses: Peripheral pulses 2+ throughout Skin General skin exam: no rashes or lesions noted Neuro General: patient oriented x3 Extrem Other: Left ankle: Moderate circumferential edema. Tenderness to palpation over the medial and lateral malleolus. Superficial skin abrasion along the anterior medial aspect of the ankle. No surrounding erythema or drainage. No signs of infection. Slight able to dorsiflex and plantarflex but is limited due to pain. She has a baseline decrease in ROM. She has baseline numbness and tingling form neuropathy. Pedal pulse intact. Office Procedures Casting/Splints [id number] Leg Cast Application Procedure code (CPT) selection complete Assessment & Plan Assessment & Plan (1) Bimalleolar fracture of left ankle: Code(s): S82.842A - Displaced bimalleolar fracture of left lower leg, initial encounter for closed fracture Qualifiers: Encounter type: initial encounter Fracture type: closed Qualified Code(s): S82.842A - Displaced bimalleolar fracture of left lower leg, initial encounter for closed fracture Plan Ms. Black is a 52-year-old female who presents in the office today, as a new patient, for an evaluation of left ankle pain. Patient presented to the ED on 06/14/2023 status post attempting to get into bed when she tripped and fell. X-rays were obtained. Patient was placed into a posterior splint and stirrup splint. While in the office the patient reports she was trying to get into the bed when she missed the edge of the bed causing her to do the splits. She reports having throbbing pain. Patient confirms having diabetes. She reports her elevated numbers were due to recently having Prednisone. She also reports having Gatorade Zero. She reports her morning glucose was 229. Patient reports in 10/2020 she went into cardiac arrest due to having difficulty breathing. 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 Reports she was breathing 40+ times a minute. This occurred in 02/2021-03/2021. Patient confirms being ambulatory with a cane. Dr. Payne was available to review imaging with me while in the office today and a collaborative treatment plan was made. The patient was placed in a custom-made short leg cast in the office. I tried to place her in as much dorsiflexion as the patient was able to tolerate. I want to see her back in one week for a skin check and to see if we can dorsiflex her up any further. It is uncertain what her baseline ROM restrictions were prior to the injury. The decision to manage the patient non-operatively is due to her past medial history, which is significant for, but not limited to, history of cardiac arrest x2, Takotsubo cardiomyopathy, uncontrolled diabetes mellitus, severe asthma, placement of trachea, neuropathy, and history of substance abuse. The patient also requested a prescription for pain medication, but due to her significant past medical history I do not feel comfortable prescribing this. I have deferred this to her PCP. Follow up will be in 1 week for a skin check, or sooner if needed. X-rays of the left ankle, obtained on 06/14/2023, revealed: 1. Medial malleolar and distal fibular fractures. The fibular fracture extends above the level of the syndesmosis, recommend correlation with proximal radiographic views of the tibia/fibula and knee to rule out additional injuries. 2. Equivocal nondisplaced posterior malleolar fracture. 3. Significant soft tissue swelling. Patient Instructions: Scribed by Meli Singh chief medical officer, for Portia Glenn POSADA on 06/23/2023 at 2:22 pm, EST. Coding Level of Care Code New Pt Level 4 (56825) Diagnoses Closed bimalleolar fracture of left ankle, initial encounter S82.842A Encounter type: initial encounter Fracture type: closed CPT Codes Casting - CPT: 43182-Jqljl Leg Cast Application ([id number])
== END 2023-06-23 15:26 | disposition home or self-care (01) ==
PROVIDERS: PCP Internal Medicine; Visit Provider Physician Assistant
DX: S82.842A Displaced bimalleolar fracture of left lower leg, initial encounter for closed fracture (principal)
CPT/HCPCS: 27808; 99204

== ENCOUNTER → 2023-06-23 14:10 | Outpatient (BNVA) | payer OTHER, SELFPAY | PROVIDERS: PCP Internal Medicine; Visit Provider Physician Assistant | DX: S82.842A Displaced bimalleolar fracture of left lower leg, initial encounter for closed fracture (principal) | CPT/HCPCS: 27808; 99202 ==

== ENCOUNTER 2023-06-30 10:40 | Outpatient (REF) | payer OTHER, SELFPAY ==
--- NOTE | ~2023-06-30 | XR_ITS ---
EXAMINATION: XR ANKLE, LEFT CLINICAL INFORMATION: Pain in unspecified ankle and joints of unspecified foot COMPARISON: 06/15/2023, 06/14/2023 TECHNIQUE: AP, lateral, and mortise views of the left ankle. FINDINGS: Transversely oriented displaced medial malleolar fracture fragment is more displaced compared to 06/14/2023. There is increased widening of the obliquely oriented displaced distal fibular fracture extending above the level of the tibiofibular syndesmosis. Associated soft tissue swelling is seen. The ankle mortise is disrupted along the medial aspect. XR/XR ankle LT min 3V IMPRESSION: 1. Increased displacement of the medial malleolar fracture fragment. 2. Increased widening of the obliquely oriented displaced distal fibular fracture extending above the level of the tibiofibular syndesmosis.
== END 2023-06-30 10:41 | disposition home or self-care (01) ==
LOC: HO.HOSX 10:40
PROVIDERS: Visit Provider Physician Assistant
DX: S82.842A Displaced bimalleolar fracture of left lower leg, initial encounter for closed fracture (principal); W01.0XXA Fall on same level from slipping, tripping and stumbling without subsequent striking against object, initial encounter; Y93.9 Activity, unspecified; Y92.9 Unspecified place or not applicable; Y99.9 Unspecified external cause status; Z98.890 Other specified postprocedural states; Z86.74 Personal history of sudden cardiac arrest
CPT/HCPCS: 29405; 73610; 99212

== ENCOUNTER 2023-06-30 13:40 | Outpatient (AMB) | payer OTHER, SELFPAY ==
--- NOTE | 2023-06-30 14:20 | A.OFFVIS_ITS ---
Intake Visit Reasons: ov- LT ankle pain Intake Note: Anna Marie is a 52 year old female who presents today for a skin check of her left ankle fx, DOI 06/14/23. Patient reports she is doing better today. Allergies pantoprazole Allergy (Verified 06/30/23 14:20) Unknown HPI HPI ov- LT ankle pain: Details: 52-year-old female who presents in the office today for a skin check and follow up of a left ankle bimalleolar fracture, which occurred on 06/14/2023 status post attempting to get into bed when she tripped and fell. I last saw the patient in the office on 06/23/2023 when she was placed into a custom-made short leg cast in as much dorsiflexion as the patient was able to tolerate. She decision to manage the patient non-operatively is due to her past medial history, which is significant for, but not limited to, history of cardiac arrest x2, Takotsubo cardiomyopathy, uncontrolled diabetes mellitus, severe asthma, placement of trachea, neuropathy, and history of substance abuse. The patient also requested a prescription for pain medication, but due to her significant past medical history this was deferred to her PCP. BMI of 36.3. While in the office today the patient reports she is doing better. [facility] Medical History (Updated 06/30/23 @ 15:06 by Meli Singh) History of cardiac arrest Wound drainage Takotsubo cardiomyopathy Kidney stones UTI (urinary tract infection) Bipolar 1 disorder Diabetes Asthma Substance abuse Surgical History (Updated 06/30/23 @ 15:06 by Meli Singh) S/P ureteral stent placement H/O exploratory laparotomy S/P cholecystectomy Family History Mother No pertinent family history Father No pertinent family history Social History Household Members: Spouse Household Members Other:: 1 Housing: Apartment Do you presently have visiting nurse or other home services: Yes Alcohol intake: never Comment: stayed in ed Patient Tobacco Use Status: Never used Tobacco Second Hand Smoke Exposure: Yes Advance Directives Date on File: 02/04/23 service: No Current occupational status: disabled Review of Systems Const All systems reviewed & are unremarkable except as noted in HPI and below Physical Exam Const General: cooperative and no acute distress Orientation/consciousness: patient oriented x3 Resp Effort & Inspection: normal respiratory effort and able to speak in complete sentences Cardio Rate: regular rate Peripheral pulses: Peripheral pulses 2+ throughout GI Palpation (GI): Soft to palpation Skin General skin exam: no rashes or lesions noted Lesions: no lesions Rashes: no rashes Neuro General: patient oriented x3 Extrem Other: Left ankle: Moderate circumferential edema. Tenderness to palpation over the medial and lateral malleolus. Superficial skin abrasion along the anterior medial aspect of the ankle. No surrounding erythema or drainage. No signs of infection. Slight able to dorsiflex and plantarflex but is limited due to pain. She has a baseline decrease in ROM. She has baseline numbness and tingling form neuropathy. Pedal pulse intact. Office Procedures Casting/Splints [id number] Leg Cast Application Procedure code (CPT) selection complete Assessment & Plan Assessment & Plan (1) Bimalleolar fracture of left ankle: Code(s): S82.842A - Displaced bimalleolar fracture of left lower leg, initial encounter for closed fracture Category: Medical Qualifiers: Encounter type: initial encounter Fracture type: closed Qualified Code(s): S82.842A - Displaced bimalleolar fracture of left lower leg, initial encounter for closed fracture (2) Diabetes: Code(s): E11.9 - Type 2 diabetes mellitus without complications Category: Medical (3) History of cardiac arrest: Code(s): Z86.74 - Personal history of sudden cardiac arrest Category: Medical (4) History of substance abuse: Code(s): F19.11 - Other psychoactive substance abuse, in remission Category: Medical (5) History of tracheostomy: Code(s): Z98.890 - Other specified postprocedural states Category: Surgical Plan Ms. Black is a 52-year-old female who presents in the office today for a skin check and follow up of a left ankle bimalleolar fracture, which occurred on 06/14/2023 status post attempting to get into bed when she tripped and fell. I last saw the patient in the office on 06/23/2023 when she was placed into a custom-made short leg cast in as much dorsiflexion as the patient was able to tolerate. She decision to manage the patient non-operatively is due to her past medial history, which is significant for, but not limited to, history of cardiac arrest x2, Takotsubo cardiomyopathy, uncontrolled diabetes mellitus, severe asthma, placement of trachea, neuropathy, and history of substance abuse. The patient also requested a prescription for pain medication, but due to her significant past medical history this was deferred to her PCP. BMI of 36.3. While in the office today the patient reports she is doing better. Patient was placed in a custom-made short leg cast. Patient was educated on cast maintenance with instructions to keep the cast clean, dry, and intact. However, should the cast become wet, dirty, or there is a concern please call the office immediately for a cast change. She was also asked to monitor the left ankle for increased pain or hot spots, should either occur she should notify the office immediately. Follow-up will be in 3 weeks for cast removal and repeat x-rays, or sooner if needed. X-rays of the left ankle which were obtained while in the office today and were reviewed by me, Portia Elizabeth PA-C, redemonstration of a bimalleolar fracture. Orders: Orders XR ankle LT min 3V Today M25.579 - Pain in unspecified ankle and joints of unspecified foot Patient Instructions: Scribed by Meli iSngh medical records supervisor, for Portia Elizabeth PA-C on 06/30/2023 at 1:45 pm, EST.
== END 2023-06-30 14:41 | disposition home or self-care (01) ==
PROVIDERS: PCP Internal Medicine; Visit Provider Physician Assistant
DX: S82.842A Displaced bimalleolar fracture of left lower leg, initial encounter for closed fracture (principal); E11.9 Type 2 diabetes mellitus without complications; Z86.74 Personal history of sudden cardiac arrest; F19.11 Other psychoactive substance abuse, in remission
CPT/HCPCS: 29405; 99024

== ENCOUNTER 2023-07-11 09:04 | Emergency (ER) | payer OTHER, SELFPAY ==
[2023-07-11] VITALS (8 sets, daily range): BP systolic 121–145; BP diastolic 51–72; PULSE 80–93; RESP 16–22; TEMP 35.9–37.1; O2SAT 91–95; BMI 38.3
--- NOTE | ~2023-07-11 | XR_ITS ---
EXAMINATION: XR CHEST CLINICAL INFORMATION: Chest pain. Shortness of breath. COMPARISON: Most recent chest radiograph dated 06/16/2023. TECHNIQUE: 2 views of the chest were obtained. FINDINGS: Stable, mild elevation the right hemidiaphragm. No new airspace consolidation. No pleural effusion or pneumothorax. Stable cardiac mediastinal silhouette. Redemonstration of a midline tracheostomy. XR/XR chest 2V IMPRESSION: No acute cardiopulmonary findings.
--- NOTE | 2023-07-11 09:19 | ECG_ITS ---
Test Reason : chest pain Blood Pressure : / mmHG Vent. Rate : 092 BPM Atrial Rate : 092 BPM P-R Int : 168 ms QRS Dur : 082 ms QT Int : 374 ms P-R-T Axes : 030 -12 027 degrees QTc Int : 462 ms Normal sinus rhythm Low voltage QRS Cannot rule out Anterior infarct (cited on or before 02-FEB-2023) Abnormal ECG When compared with ECG of 16-JUN-2023 15:26, No significant change was found Referred By: Generic ED Physician Electronically Signed By:DENIS GAMBINO
--- NOTE | 2023-07-11 09:32 | ED_ITS ---
HPI - SOB/Dyspnea General Chief Complaint: Dyspnea Stated Complaint: SOB W/PROD COUGH & CP W/INSP,HAS TRACH PER EMS Time Seen by Provider: 07/11/23 09:24 Source: patient and EMS Mode of arrival: EMS Limitations: no limitations History of Present Illness HPI Narrative: This is 51 years old female with history of asthma status post tracheostomy presented to the emergency department complaining of shortness of breath wheezing MD elicited complaint: shortness of breath Onset (ago): day(s) (1) Context: recent illness Timing: constant Severity: moderate Exacerbating factors: nothing and warm air Known history of: asthma Related Data Home Medications ?Medication ?Instructions ?Recorded ?Confirmed albuterol sulfate 2.5 mg/3 mL 2.5 mg inhalation Q4H PRN wheezing 02/02/23 06/16/23 (0.083 %) solution for nebulization albuterol sulfate 90 mcg/actuation 2 puff inhalation Q4H PRN wheezing 02/02/23 06/16/23 aerosol inhaler (Ventolin HFA) apixaban 5 mg tablet (Eliquis) 5 mg PO BID 02/02/23 06/16/23 atorvastatin 10 mg tablet 10 mg PO BEDTIME 02/02/23 06/16/23 clonazepam 1 mg tablet 1 mg PO BID PRN Anxiety 02/02/23 06/16/23 escitalopram oxalate 20 mg tablet 20 mg PO BEDTIME 02/02/23 06/16/23 famotidine 20 mg tablet 20 mg PO BID 02/02/23 06/16/23 fluticasone 500 mcg-salmeterol 50 1 ea inhalation BID 02/02/23 06/16/23 mcg/dose blistr powdr for inhalation (Advair Diskus) fluticasone propionate 50 1 spray intranasal DAILY PRN 02/02/23 06/16/23 mcg/actuation nasal allergies spray,suspension gabapentin 100 mg capsule 100 mg PO TID 02/02/23 06/16/23 glipizide 5 mg tablet 5 mg PO DAILY 02/02/23 06/16/23 insulin lispro 100 unit/mL 1 sliding scale dose subcut TIDAC 02/02/23 06/16/23 subcutaneous pen lurasidone 60 mg tablet 60 mg PO BEDTIME 02/02/23 06/16/23 metformin 500 mg tablet,extended 1,000 mg PO BID 02/02/23 06/16/23 release 24 hr oxcarbazepine 300 mg tablet 300 mg PO BID 02/02/23 06/16/23 promethazine 25 mg tablet 25 mg PO DAILY PRN nausea 02/02/23 06/16/23 tizanidine 4 mg tablet 4 mg PO DAILY PRN muscle spasm 02/02/23 06/16/23 trazodone 150 mg tablet 150 mg PO BEDTIME PRN Sleep 02/02/23 06/16/23 insulin glargine 100 unit/mL (3 10 unit subcut DAILY 06/15/23 06/16/23 mL) subcutaneous pen (Lantus Solostar U-100 Insulin) Previous Rx's ?Medication ?Instructions ?Recorded cefuroxime axetil 250 mg tablet 250 mg PO BID 5 days #10 tabs 06/20/23 prednisone 20 mg tablet 60 mg (3 x 20 mg) PO DAILY #12 tabs 07/11/23 Allergies Allergy/AdvReac Type Severity Reaction Status Date / Time pantoprazole Allergy Mild Redness of Verified 07/11/23 09:28 Skin Review of Systems 2 Constitutional: Constitutional: Reports no additional constitutional complaints ENT: Reports system reviewed and no additional complaints, except as documented Cardiovascular: Cardiovascular: Reports no additional cardiovascular complaints Gastrointestinal: Gastrointestinal: Reports no additional gastrointestinal complaints [facility] Past Medical History [facility] Narrative: Asthma,bipolar disorder,diabetes Medical History History of cardiac arrest Wound drainage Takotsubo cardiomyopathy Kidney stones UTI (urinary tract infection) Bipolar 1 disorder Diabetes Asthma Substance abuse Surgical History S/P ureteral stent placement H/O exploratory laparotomy S/P cholecystectomy Family History Family History Mother No pertinent family history Father No pertinent family history Social History Social History Household Members: Spouse Household Members Other:: 1 Housing: Apartment Do you presently have visiting nurse or other home services: Yes Alcohol intake: never Comment: stayed in ed Patient Tobacco Use Status: Never used Tobacco Smoked in Last 30 Days: No Second Hand Smoke Exposure: Yes Use of substances other than those prescribed or required for medical reasons: No Advance Directives: Yes Advance Directives on File: Yes Advance Directives Date on File: 02/04/23 service: No Current occupational status: disabled Physical Exam 2 Vital Signs: Vital Signs: Last Vital Signs Temp 98.8 F 07/11/23 15:08 Pulse 86 07/11/23 15:08 Resp 16 07/11/23 15:08 BP 140/72 H 07/11/23 15:08 Pulse Ox 93 07/11/23 15:08 O2 Del Method Room Air 07/11/23 15:08 O2 Flow Rate 2 07/11/23 12:42 BMI result Body Mass Index 38.3 Const: General: cooperative Nutritional Appearance: well nourished O rientation/consciousness: patient oriented x3 Limitations: no limitations HEENT: Head: Yes normal to inspection General nose exam: Normal external nose present Face and sinus: Yes normal facial exam Mouth: Normal oral and palatal mucosa present Throat: Yes posterior oropharynx normal Neck: Neck: Yes normal visual inspection and Yes full ROM Resp: Effort & Inspection: normal respiratory effort Auscultation: wheezes Cardio: Jugular venous distension: no JVD Rate: regular rate Rhythm: r egular rhythm GI: Inspection: Yes normal to inspection Palpation (GI): Soft to palpation, not firm and nontender Auscultation: normal bowel sounds Skin: General skin exam: no rashes or lesions noted and elasticity normal Neuro: General: patient oriented x3 Course Reevaluation(s) Reevaluation #1: doing better work up negative will d/c CXR normal Time: 12:29 Medications Administered Discontinued Medications Generic Name Dose Route Start Last Admin Trade Name Frank PRN Reason Stop Dose Admin Methylprednisolone Sodium Succinate 125 mg 07/11/23 09:32 07/11/23 09:58 Methylprednisolone Sod Succ 125 Mg/2 Ml Vial IVPUSH 07/11/23 09:33 125 mg ONCE ONE Administration Morphine Sulfate 4 mg 07/11/23 09:30 07/11/23 09:58 Morphine Sulfate 4 Mg/Ml Cartridge IVPUSH 07/11/23 09:31 4 mg ONCE ONE Administration Protocol Morphine Sulfate 4 mg 07/11/23 12:29 07/11/23 12:42 Morphine Sulfate 4 Mg/Ml Cartridge IVPUSH 07/11/23 12:30 4 mg ONCE ONE Administration Protocol Medical Decision Making Medical Decision Making [facility] Narrative: Patient presented with altered shortness of breath she is wheezing on exam we get chest x-ray labs administer albuterol Differential Diagnosis Differential Diagnoses: The differential diagnosis associated with the presentation includes Asthma exacerbation/pneumonia/bronchitis Admission/Observation Consideration of admission/observation: Escalation of care including admission/observation considered Lab Data [facility] Lab Attestation statement: I reviewed the patient's lab results. 07/11/23 09:53 07/11/23 09:53 Labs: Lab Results 07/11/23 07/11/23 07/11/23 Range/Units 09:33 09:53 09:55 WBC 12.7 H (4.8-10.8) X10*3/uL RBC 4.61 (4.20-5.50) X10*6/uL Hgb 12.2 (12.0-16.0) g/dl Hct 38.0 (37.0-47.0) % MCV 82.4 (80.0-98.0) fL MCH 26.5 L (27.0-33.0) pg MCHC 32.1 (31.0-35.0) g/dl RDW 14.1 (11.0-16.0) % Plt Count 384 D (160-400) X10*3/uL MPV 9.4 (9.4-12.3) fL Immature Gran % (Auto) 0.6 H (0.0-0.4) % Neut % (Auto) 86.4 H (45-73) % Lymph % (Auto) 5.5 L (20-40) % Bladen % (Auto) 2.9 (2-11) % Eos % (Auto) 4.1 H (0-4) % Baso % (Auto) 0.5 (0-2) % Lymph # (Auto) 0.7 L (1.2-4.9) X10*3/uL Bladen # (Auto) 0.4 (0.1-1.2) X10*3/uL Eos # (Auto) 0.5 H (0.0-0.4) X10*3/uL Baso # (Auto) 0.1 (0.0-0.2) X10*3/uL Abs Immat Gran (auto) 0.07 H (0.00-0.03) X10*3/uL Absolute Neuts (auto) 10.9 H (2.0-8.3) x10*3/uL Absolute Nucleated RBC 0.000 (0.0-0.012) X10*3/uL Nucleated RBC % (auto) 0.0 (0.0-0.2) /100WBC D-Dimer High Sensitivty 204 NG/ML Sodium 131 L (135-145) mmol/L Potassium 4.4 (3.3-5.1) mmol/L Chloride 90 L (96-108) mmol/L Carbon Dioxide 32 H (22-29) mmol/L Anion Gap 13 (12-20) BUN 19 H (9-16) mg/dL Creatinine 1.05 (0.5-1.4) mg/dL Estim Creat Clear Calc 69.1 Estimated GFR 55 POC Glucose 201 H (60-115) mg/dL Random Glucose 208 H (60-115) mg/dL Calcium 9.9 D (8.4-10.2) mg/dL Total Bilirubin 0.4 (0.0-1.0) mg/dL AST 14 (5-31) U/L ALT 12 (0-31) U/L Alkaline Phosphatase 154 H (39-117) U/L Troponin I High Sens < 2.7 D (<3.5-17.0) ng/L Total Protein 7.7 (6.5-8.0) g/dL Albumin 4.1 (3.5-5.0) g/dL Influenza Type A (PCR) NEGATIVE (Negative) Influenza Type B (PCR) NEGATIVE (Negative) RSV RNA Qual (PCR) NEGATIVE (Negative) SARS-CoV-2 RNA (RT-PCR) NEGATIVE (Negative) Independent Interpretation I performed an independent interpretation of an: Plain X-Ray Interpretation: NO PNEUMONIA Radiology Impression Discussion of test interpretation with radiology: I have reviewed the radiologist's reading. Radiologist Impression: NO PNEUMONIA Independent Historian Clinical information obtained from an independent historian. History obtained from or confirmed by: EMS External Record Review External record reviewed: Inpatient record Discharge Plan Discharge Clinical Impression: Asthma exacerbation Patient Disposition: Home, Self-Care Instructions: Asthma (DC) Prescriptions: New prednisone 20 mg tablet 60 mg PO DAILY Qty: 12 0RF No Action insulin glargine [Lantus Solostar U-100 Insulin] 100 unit/mL (3 mL) insulin pen 10 unit subcut DAILY cefuroxime axetil 250 mg tablet 250 mg PO BID 5 Days Qty: 10 0RF albuterol sulfate 2.5 mg /3 mL (0.083 %) solution for nebulization 2.5 mg inhalation Q4H PRN (Reason: wheezing) atorvastatin 10 mg tablet 10 mg PO BEDTIME tizanidine 4 mg tablet 4 mg PO DAILY PRN (Reason: muscle spasm) clonazepam 1 mg tablet 1 mg PO BID PRN (Reason: Anxiety) oxcarbazepine 300 mg tablet 300 mg PO BID famotidine 20 mg tablet 20 mg PO BID trazodone 150 mg tablet 150 mg PO BEDTIME PRN (Reason: Sleep) promethazine 25 mg tablet 25 mg PO DAILY PRN (Reason: nausea) fluticasone propion-salmeterol [Advair Diskus] 500-50 mcg/dose blister with device 1 ea INHALATION BID gabapentin 100 mg capsule 100 mg PO TID albuterol sulfate [Ventolin HFA] 90 mcg/actuation HFA aerosol inhaler 2 puff inhalation Q4H PRN (Reason: wheezing) fluticasone propionate 50 mcg/actuation spray,suspension 1 spray intranasal DAILY PRN (Reason: allergies) Rx Instructions: INHALE IN BOTH NOSTRILS metformin 500 mg tablet extended release 24 hr 1,000 mg PO BID glipizide 5 mg tablet 5 mg PO DAILY insulin lispro 100 unit/mL insulin pen 1 sliding scale dose subcut TIDAC escitalopram oxalate 20 mg tablet 20 mg PO BEDTIME Eliquis 5 mg tablet 5 mg PO BID lurasidone 60 mg tablet 60 mg PO BEDTIME Interventions: ED Discharge Assessment Last Done: 07/11/23 12:50 Print Language: Maltese
[2023-07-11 09:36] LABS: Glucose, Whole Blood 201 mg/dL (60-115)
--- NOTE | 2023-07-11 09:50 | PC.RT ---
Pt evaluated via bronchodilator protol. Pt states she had nebulizer en route to hosppital via EMS. She states she does not feel a subsequent one would be beneficial but will alert staff if she feels increased SOB.
[2023-07-11] MEDS: Morphine Sulfate 4 MG/ML CARTRIDGE IVPUSH ×2 (09:58→12:42)
[2023-07-11] MEDS: methylPREDNISolone Sod Succ 125 MG/2 ML VIAL IVPUSH (09:58)
[2023-07-11 10:08] LABS: MANUAL DIFF FLAG NO
[2023-07-11 10:14] LABS: Basophils Absolute Auto 0.1 X10*3/uL (0.0-0.2); Basophils Percent Auto 0.5 % (0-2); Eosinophils Absolute Auto 0.5 X10*3/uL (0.0-0.4); Eosinophils Percent Auto 4.1 % (0-4); Hemoglobin 12.2 g/dl (12.0-16.0); Imm Gran Abs Auto 0.07 X10*3/uL (0.00-0.03); Imm Gran Pct Auto 0.6 % (0.0-0.4); Lymphocytes Absolute Auto 0.7 X10*3/uL (1.2-4.9); Lymphocytes Percent Auto 5.5 % (20-40); Mean Corpuscular HGB Conc 32.1 g/dl (31.0-35.0); Mean Corpuscular Hemoglobin 26.5 pg (27.0-33.0); Mean Corpuscular Volume 82.4 fL (80.0-98.0); Mean Platelet Volume 9.4 fL (9.4-12.3); Monocytes Absolute Auto 0.4 X10*3/uL (0.1-1.2); Monocytes Percent Auto 2.9 % (2-11); Neutrophils Absolute Auto 10.9 x10*3/uL (2.0-8.3); Neutrophils Percent Auto 86.4 % (45-73); Platelet Count 384 X10*3/uL (160-400); Red Blood Count 4.61 X10*6/uL (4.20-5.50); Red Cell Distribution Width 14.1 % (11.0-16.0); White Blood Count 12.7 X10*3/uL (4.8-10.8)
[2023-07-11 10:17] LABS: D Dimer High Sensitivity 204 NG/ML
[2023-07-11 10:34] LABS: Alanine Aminotransferase 12 U/L (0-31); Albumin Level 4.1 g/dL (3.5-5.0); Alkaline Phosphatase 154 U/L (39-117); Anion Gap 13 (12-20); Aspartate Amino Transferase 14 U/L (5-31); Bilirubin Total 0.4 mg/dL (0.0-1.0); Blood Urea Nitrogen 19 mg/dL (9-16); Calcium 9.9 mg/dL (8.4-10.2); Carbon Dioxide 32 mmol/L (22-29); Chloride 90 mmol/L (96-108); Creatinine Clr Calc Pharmacy 69.1; Estimated Glomerular Filt Rate 55; Glucose Random 208 mg/dL (60-115); Potassium 4.4 mmol/L (3.3-5.1); Sodium 131 mmol/L (135-145); Total Protein 7.7 g/dL (6.5-8.0)
[2023-07-11 10:46] LABS: Influenza A PCR NEGATIVE (Negative); Influenza B PCR NEGATIVE (Negative); Resp Syncy Virus RNA Qual PCR NEGATIVE (Negative); SARS COV2 PCR INHOUSE NEGATIVE (Negative)
[2023-07-11 10:49] LABS: Troponin-I High Sensitivity < 2.7 ng/L (<3.5-17.0)
--- NOTE | 2023-07-11 12:46 | PC.NURSE ---
Pt moved to 6H, assumed care at 1230, medicated with morphine for 8/10 left ankle and right knee and back pain with deep breathing. Plan for discharge home via ambulance, called and awaiting transportation. No dif breathing or SOB. sat 94% on 2lpm via nc, uses 02 PRN at home. SKin pink warm and moist, pt reports feeling hot, cool pack provided. Afebrile
--- NOTE | 2023-07-11 14:00 | PC.NURSE ---
Pt assisted to bathroom with wheelchair without incident by this RN, awaits ambulance
== END 2023-07-11 16:53 | disposition home or self-care (01) ==
PROVIDERS: Emergency Provider Emergency Medicine; PCP Internal Medicine
DX: J45.901 Unspecified asthma with (acute) exacerbation (principal); R06.02 Shortness of breath; R05.9 Cough, unspecified; R07.89 Other chest pain; Z11.52 Encounter for screening for COVID-19; Z20.822 Contact with and (suspected) exposure to COVID-19; Z79.899 Other long term (current) drug therapy
CPT/HCPCS: 0241U; 36415; 71046; 80053; 82947; 84484; 85025; 85379; 93005; 96374; 96375; 96376; 99284; 99285; J2270; J2919

== ENCOUNTER → 2023-07-11 09:19 | Outpatient (BNV) | payer OTHER, SELFPAY | PROVIDERS: Emergency Provider Emergency Medicine; PCP Internal Medicine; Visit Provider Internal Medicine | DX: R94.31 Abnormal electrocardiogram [ECG] [EKG] (principal) | CPT/HCPCS: 93010 ==

== ENCOUNTER 2023-07-22 10:52 | Outpatient (REF) | payer OTHER, SELFPAY | END 2023-07-22 10:53 | disposition home or self-care (01) | LOC: HO.HOSX 10:52 | PROVIDERS: Visit Provider Physician Assistant | DX: Z13.89 Encounter for screening for other disorder (principal) ==

== ENCOUNTER 2023-07-24 03:20 | Emergency (ER) | payer OTHER, SELFPAY ==
--- NOTE | 2023-07-24 | ECG_ITS ---
Test Reason : SOB Blood Pressure : / mmHG Vent. Rate : 105 BPM Atrial Rate : 105 BPM P-R Int : 184 ms QRS Dur : 088 ms QT Int : 354 ms P-R-T Axes : 049 -07 032 degrees QTc Int : 467 ms Sinus tachycardia Low voltage QRS Cannot rule out Anterior infarct (cited on or before 02-FEB-2023) Abnormal ECG When compared with ECG of 11-JUL-2023 09:23, No significant change was found Referred By: Generic ED Physician Electronically Signed By:Skip Ledesma
--- NOTE | ~2023-07-24 | XR_ITS ---
EXAMINATION: XR CHEST CLINICAL INFORMATION: Cough COMPARISON: 03/26/2023 and 07/11/2023 TECHNIQUE: Frontal view of the chest was obtained. FINDINGS: Tracheostomy tube in place. EKG wires overlie the chest. The right hemidiaphragm is chronically, mildly elevated. No acute lung findings. No evidence of consolidation or pleural effusion. Cardiomediastinal silhouette has normal size and contour. Bronchial severino appear to be diffusely thickened. Query if there is any history of asthma or bronchitis. No acute osseous abnormalities. XR/XR chest 1V IMPRESSION: * No radiographic evidence of pneumonia. * The bronchial severino appear to be chronically, diffusely thickened.
[2023-07-24 03:28] VITALS: BP 110/62; BP 126/69; PULSE 107; PULSE 88; RESP 20; TEMP 37.3; O2SAT 96; BMI 39.0
--- NOTE | 2023-07-24 03:28 | PC.NURSE ---
late entry- pt biba from home, a&ox4, respirations even and unlabored; pt noted to have bilateral expiratory wheezing, is on 4L nasal cannula baseline, has trach on place x2 years ago. pt denies chest pain, nausea, vomiting and diarrhea. pt normal sinus on tele 89-90bpm. pt sating 96-98%. pt noted to have cast on left ankle; pt reports ankle fracture. pt able to use bedside commode independently.
[2023-07-24 03:43] LABS: MANUAL DIFF FLAG NO
[2023-07-24 03:44] LABS: Basophils Absolute Auto 0.1 X10*3/uL (0.0-0.2); Basophils Percent Auto 0.5 % (0-2); Eosinophils Absolute Auto 0.7 X10*3/uL (0.0-0.4); Hematocrit 36.8 % (37.0-47.0); Hemoglobin 11.4 g/dl (12.0-16.0); Imm Gran Abs Auto 0.03 X10*3/uL (0.00-0.03); Imm Gran Pct Auto 0.3 % (0.0-0.4); Lymphocytes Absolute Auto 1.3 X10*3/uL (1.2-4.9); Lymphocytes Percent Auto 14.3 % (20-40); Mean Corpuscular Hemoglobin 26.6 pg (27.0-33.0); Mean Platelet Volume 9.4 fL (9.4-12.3); Monocytes Absolute Auto 0.6 X10*3/uL (0.1-1.2); Monocytes Percent Auto 6.1 % (2-11); Neutrophils Absolute Auto 6.6 x10*3/uL (2.0-8.3); Neutrophils Percent Auto 70.8 % (45-73); Platelet Count 306 X10*3/uL (160-400); Red Blood Count 4.28 X10*6/uL (4.20-5.50); Red Cell Distribution Width 13.9 % (11.0-16.0); White Blood Count 9.3 X10*3/uL (4.8-10.8)
[2023-07-24 03:51] LABS: Glucose, Whole Blood 489 mg/dL (60-115)
[2023-07-24 04:11] LABS: Alanine Aminotransferase 15 U/L (0-31); Albumin Level 3.6 g/dL (3.5-5.0); Alkaline Phosphatase 185 U/L (39-117); Anion Gap 18 (12-20); Aspartate Amino Transferase 10 U/L (5-31); Bilirubin Total 0.3 mg/dL (0.0-1.0); Blood Urea Nitrogen 17 mg/dL (9-16); Calcium 9.2 mg/dL (8.4-10.2); Carbon Dioxide 30 mmol/L (22-29); Chloride 91 mmol/L (96-108); Creatinine Clr Calc Pharmacy 55.5; Estimated Glomerular Filt Rate 42; Glucose Random 510 mg/dL (60-115); Potassium 4.4 mmol/L (3.3-5.1); Sodium 135 mmol/L (135-145); Total Protein 6.8 g/dL (6.5-8.0)
--- NOTE | 2023-07-24 04:13 | ED_ITS ---
HPI - SOB/Dyspnea General Chief Complaint: Dyspnea Stated Complaint: SOB Time Seen by Provider: 07/24/23 04:13 Source: patient Mode of arrival: EMS Limitations: no limitations History of Present Illness HPI Narrative: Patient history of asthma post cardiac arrest and tracheostomy in 2000 been coughing for last 2 days with mucopurulent phlegm with increased shortness of breath on 4 L of oxygen at home , yesterday patient did not check her blood sugar but took her insulin according to her diet came here with blood sugar of 510 patient has been drinking iced tea all day yesterday as she was feeling thirsty Related Data Home Medications ?Medication ?Instructions ?Recorded ?Confirmed albuterol sulfate 2.5 mg/3 mL 2.5 mg inhalation Q4H PRN wheezing 02/02/23 06/16/23 (0.083 %) solution for nebulization albuterol sulfate 90 mcg/actuation 2 puff inhalation Q4H PRN wheezing 02/02/23 06/16/23 aerosol inhaler (Ventolin HFA) apixaban 5 mg tablet (Eliquis) 5 mg PO BID 02/02/23 06/16/23 atorvastatin 10 mg tablet 10 mg PO BEDTIME 02/02/23 06/16/23 clonazepam 1 mg tablet 1 mg PO BID PRN Anxiety 02/02/23 06/16/23 escitalopram oxalate 20 mg tablet 20 mg PO BEDTIME 02/02/23 06/16/23 famotidine 20 mg tablet 20 mg PO BID 02/02/23 06/16/23 fluticasone 500 mcg-salmeterol 50 1 ea inhalation BID 02/02/23 06/16/23 mcg/dose blistr powdr for inhalation (Advair Diskus) fluticasone propionate 50 1 spray intranasal DAILY PRN 02/02/23 06/16/23 mcg/actuation nasal allergies spray,suspension gabapentin 100 mg capsule 100 mg PO TID 02/02/23 06/16/23 glipizide 5 mg tablet 5 mg PO DAILY 02/02/23 06/16/23 insulin lispro 100 unit/mL 1 sliding scale dose subcut TIDAC 02/02/23 06/16/23 subcutaneous pen lurasidone 60 mg tablet 60 mg PO BEDTIME 02/02/23 06/16/23 metformin 500 mg tablet,extended 1,000 mg PO BID 02/02/23 06/16/23 release 24 hr oxcarbazepine 300 mg tablet 300 mg PO BID 02/02/23 06/16/23 promethazine 25 mg tablet 25 mg PO DAILY PRN nausea 02/02/23 06/16/23 tizanidine 4 mg tablet 4 mg PO DAILY PRN muscle spasm 02/02/23 06/16/23 trazodone 150 mg tablet 150 mg PO BEDTIME PRN Sleep 02/02/23 06/16/23 insulin glargine 100 unit/mL (3 10 unit subcut DAILY 06/15/23 06/16/23 mL) subcutaneous pen (Lantus Solostar U-100 Insulin) Previous Rx's ?Medication ?Instructions ?Recorded cefuroxime axetil 250 mg tablet 250 mg PO BID 5 days #10 tabs 06/20/23 prednisone 20 mg tablet 60 mg (3 x 20 mg) PO DAILY #12 tabs 07/11/23 cefuroxime axetil 500 mg tablet 500 mg PO BID 10 days #20 tabs 07/24/23 codeine 10 mg-guaifenesin 100 mg/5 10 ml PO Q6H PRN cough #237 mL 07/24/23 mL oral liquid Allergies Allergy/AdvReac Type Severity Reaction Status Date / Time pantoprazole Allergy Mild Redness of Verified 07/24/23 03:30 Skin Review of Systems 2 Review of Systems: Yes all other systems are reviewed and are negative [facility] Past Medical History Medical History History of cardiac arrest Wound drainage Takotsubo cardiomyopathy Kidney stones UTI (urinary tract infection) Bipolar 1 disorder Diabetes Asthma Substance abuse Surgical History S/P ureteral stent placement H/O exploratory laparotomy S/P cholecystectomy Family History Family History Mother No pertinent family history Father No pertinent family history Social History Social History Household Members: Spouse Household Members Other:: 1 Housing: Apartment Do you presently have visiting nurse or other home services: Yes Alcohol intake: never Comment: stayed in ed Patient Tobacco Use Status: Never used Tobacco Smoked in Last 30 Days: No Second Hand Smoke Exposure: Yes Use of substances other than those prescribed or required for medical reasons: No Advance Directives: Yes Advance Directives on File: Yes Advance Directives Date on File: 02/04/23 Do you have a plan to hurt others: No Plan Patient : No service: No Current occupational status: disabled Physical Exam 2 Vital Signs: Vital Signs: Last Vital Signs Temp 98.3 F 07/24/23 05:46 Pulse 100 07/24/23 06:34 Resp 18 07/24/23 06:34 BP 118/66 07/24/23 05:46 Pulse Ox 95 07/24/23 05:46 O2 Del Method Nasal Cannula 07/24/23 05:46 O2 Flow Rate 4 07/24/23 05:46 Oxygen Flow Rate 4 07/24/23 03:28 BMI result Body Mass Index 39.0 Appearance: Alert. Oriented X3. No acute distress. Eyes: PERRLA, No Nystagmus ENT: Pharynx normal. Oral Mucosa moist tracheostomy in place Neck: Normal inspection. Neck supple. CVS: Normal heart rate and rhythm. Pulses normal. Respiratory: No respiratory distress. Equal air entry bilateral, no wheezing/rales/rhonchi bilateral prolonged expiration Abdomen: Soft and nontender. Bowel sounds are present, no mass palpable, no CVA tenderness Skin: Skin warm and dry. Normal skin color. Normal skin turgor. Extremities: No lower extremity edema. No calf tenderness Neuro: Oriented X 3. No motor deficit. No sensory deficit.No cerebellar signs , cranial nerves II-XII intact Medications Administered Discontinued Medications Generic Name Dose Route Start Last Admin Trade Name Freq PRN Reason Stop Dose Admin Albuterol Sulfate 2.5 mg/ 0 mg 07/24/23 05:56 07/24/23 06:07 Albuterol/Ipratropium 3 ml INHALE 07/24/23 05:57 5 dose ONCE ONE Administration Sodium Chloride 1,000 mls @ 999 mls/hr 07/24/23 04:14 07/24/23 04:19 Ns IV 07/24/23 05:14 999 mls/hr .Q1H1M ONE Administration Insulin Human Lispro 12 unit 07/24/23 04:14 07/24/23 04:19 Insulin Lispro 100 Unit/Ml 3 Ml Vial SUBCUT 07/24/23 04:15 12 unit ONCE ONE Administration Medical Decision Making Medical Decision Making [facility] Narrative: Patient with asthma status post tracheostomy comes for increased shortness of breath cough no consolidation chest x-ray labs are stable will prescribe Ceftin for bronchitis and cough syrup advised to use nebulizer treatment at home, COVID flu and RSV negative Differential Diagnosis Differential Diagnoses: The differential diagnosis associated with the presentation includes Pneumonia/ COPD/asthma/bronchitis Lab Data [facility] Lab Attestation statement: I reviewed the patient's lab results. 07/24/23 03:37 07/24/23 03:37 Labs: Lab Results 07/24/23 07/24/23 07/24/23 Range/Units 03:37 03:46 05:01 WBC 9.3 (4.8-10.8) X10*3/uL RBC 4.28 (4.20-5.50) X10*6/uL Hgb 11.4 L (12.0-16.0) g/dl Hct 36.8 L (37.0-47.0) % MCV 86.0 (80.0-98.0) fL MCH 26.6 L (27.0-33.0) pg MCHC 31.0 (31.0-35.0) g/dl RDW 13.9 (11.0-16.0) % Plt Count 306 (160-400) X10*3/uL MPV 9.4 (9.4-12.3) fL Immature Gran % (Auto) 0.3 (0.0-0.4) % Neut % (Auto) 70.8 (45-73) % Lymph % (Auto) 14.3 L (20-40) % [place] % (Auto) 6.1 (2-11) % Eos % (Auto) 8.0 H (0-4) % Baso % (Auto) 0.5 (0-2) % Lymph # (Auto) 1.3 (1.2-4.9) X10*3/uL [place] # (Auto) 0.6 (0.1-1.2) X10*3/uL Eos # (Auto) 0.7 H (0.0-0.4) X10*3/uL Baso # (Auto) 0.1 (0.0-0.2) X10*3/uL Abs Immat Gran (auto) 0.03 (0.00-0.03) X10*3/uL Absolute Neuts (auto) 6.6 (2.0-8.3) x10*3/uL Absolute Nucleated RBC 0.000 (0.0-0.012) X10*3/uL Nucleated RBC % (auto) 0.0 (0.0-0.2) /100WBC Sodium 135 (135-145) mmol/L Potassium 4.4 (3.3-5.1) mmol/L Chloride 91 L (96-108) mmol/L Carbon Dioxide 30 H (22-29) mmol/L Anion Gap 18 (12-20) BUN 17 H (9-16) mg/dL Creatinine 1.32 (0.5-1.4) mg/dL Estim Creat Clear Calc 55.5 Estimated GFR 42 POC Glucose 489 H* 398 H* (60-115) mg/dL Random Glucose 510 H* (60-115) mg/dL Calcium 9.2 D (8.4-10.2) mg/dL Total Bilirubin 0.3 (0.0-1.0) mg/dL AST 10 (5-31) U/L ALT 15 (0-31) U/L Alkaline Phosphatase 185 H (39-117) U/L Total Protein 6.8 (6.5-8.0) g/dL Albumin 3.6 (3.5-5.0) g/dL Influenza Type A (PCR) NEGATIVE (Negative) Influenza Type B (PCR) NEGATIVE (Negative) RSV RNA Qual (PCR) NEGATIVE (Negative) SARS-CoV-2 RNA (RT-PCR) NEGATIVE (Negative) Discharge Plan Discharge Clinical Impression: Acute asthmatic bronchitis Patient Disposition: Home, Self-Care Instructions: Acute Bronchitis (ED) Additional Instructions: Continue the nebulizer treatments at home Antibiotics and cough syrup as advised Check blood sugar and take insulin according to sliding scale Prescriptions: New codeine-guaifenesin 10-100 mg/5 mL liquid 10 ml PO Q6H PRN (Reason: cough) Qty: 237 0RF cefuroxime axetil 500 mg tablet 500 mg PO BID 10 Days Qty: 20 0RF No Action insulin glargine [Lantus Solostar U-100 Insulin] 100 unit/mL (3 mL) insulin pen 10 unit subcut DAILY cefuroxime axetil 250 mg tablet 250 mg PO BID 5 Days Qty: 10 0RF prednisone 20 mg tablet 60 mg PO DAILY Qty: 12 0RF albuterol sulfate 2.5 mg /3 mL (0.083 %) solution for nebulization 2.5 mg inhalation Q4H PRN (Reason: wheezing) atorvastatin 10 mg tablet 10 mg PO BEDTIME tizanidine 4 mg tablet 4 mg PO DAILY PRN (Reason: muscle spasm) clonazepam 1 mg tablet 1 mg PO BID PRN (Reason: Anxiety) oxcarbazepine 300 mg tablet 300 mg PO BID famotidine 20 mg tablet 20 mg PO BID trazodone 150 mg tablet 150 mg PO BEDTIME PRN (Reason: Sleep) promethazine 25 mg tablet 25 mg PO DAILY PRN (Reason: nausea) fluticasone propion-salmeterol [Advair Diskus] 500-50 mcg/dose blister with device 1 ea INHALATION BID gabapentin 100 mg capsule 100 mg PO TID albuterol sulfate [Ventolin HFA] 90 mcg/actuation HFA aerosol inhaler 2 puff inhalation Q4H PRN (Reason: wheezing) fluticasone propionate 50 mcg/actuation spray,suspension 1 spray intranasal DAILY PRN (Reason: allergies) Rx Instructions: INHALE IN BOTH NOSTRILS metformin 500 mg tablet extended release 24 hr 1,000 mg PO BID glipizide 5 mg tablet 5 mg PO DAILY insulin lispro 100 unit/mL insulin pen 1 sliding scale dose subcut TIDAC escitalopram oxalate 20 mg tablet 20 mg PO BEDTIME Eliquis 5 mg tablet 5 mg PO BID lurasidone 60 mg tablet 60 mg PO BEDTIME Print Language: Nepali
[2023-07-24] MEDS: Insulin Lispro 100 UNIT/ML 3 ML VIAL 12 UNIT SUBCUT (04:19)
[2023-07-24] MEDS: 0.9 % Sodium Chloride 1,000 ML 999 ML IV (04:19)
[2023-07-24 04:20] LABS: Influenza A PCR NEGATIVE (Negative); Influenza B PCR NEGATIVE (Negative); Resp Syncy Virus RNA Qual PCR NEGATIVE (Negative); SARS COV2 PCR INHOUSE NEGATIVE (Negative)
[2023-07-24 05:05] LABS: Glucose, Whole Blood 398 mg/dL (60-115)
[2023-07-24 05:46] VITALS: BP 118/66; PULSE 104; RESP 16; TEMP 36.8; O2SAT 95
[2023-07-24] MEDS: Albuterol Sulfate 2.5 MG, Albuterol/Iprat 2.5/0.5MG 3 ML 3 ML INHALE (06:07)
[2023-07-24 06:34] VITALS: PULSE 100; RESP 18; O2SAT 94
--- NOTE | 2023-07-24 06:35 | PC.NURSE ---
respiratory at bedside preforming breathing treatment.
[2023-07-24 07:24] LABS: Glucose, Whole Blood 328 mg/dL (60-115)
[2023-07-24] MEDS: guaiFEN/Codeine SF 200/20/10ML 10 ML LIQUID PO (07:26)
[2023-07-24] MEDS: cefuroxime axetiL 500 MG TABLET PO (07:26)
[2023-07-24] MEDS: Insulin Lispro 100 UNIT/ML 3 ML VIAL 6 UNIT SUBCUT (07:28)
[2023-07-24 09:57] VITALS: BP 146/72; PULSE 95; RESP 16; TEMP 36.8; O2SAT 94
== END 2023-07-24 09:57 | disposition home or self-care (01) ==
PROVIDERS: Emergency Provider Internal Medicine; PCP Internal Medicine
DX: J45.909 Unspecified asthma, uncomplicated (principal); R06.02 Shortness of breath; R05.9 Cough, unspecified; R11.0 Nausea; Z99.81 Dependence on supplemental oxygen; Z79.4 Long term (current) use of insulin; Z11.52 Encounter for screening for COVID-19; Z20.822 Contact with and (suspected) exposure to COVID-19; Z79.899 Other long term (current) drug therapy
CPT/HCPCS: 0241U; 71045; 80053; 82947; 85025; 93005; 94640; 96360; 96361; 99285

== ENCOUNTER → 2023-07-24 03:40 | Outpatient (BNV) | payer OTHER, SELFPAY | PROVIDERS: Emergency Provider Internal Medicine; PCP Internal Medicine; Visit Provider Internal Medicine Cardiovascular Disease | DX: R00.0 Tachycardia, unspecified (principal) | CPT/HCPCS: 93010 ==

== ENCOUNTER 2023-07-25 08:56 | Outpatient (REF) | payer OTHER, SELFPAY ==
--- NOTE | ~2023-07-25 | XR_ITS ---
EXAMINATION: XR ANKLE, LEFT CLINICAL INFORMATION: Pain in unspecified ankle and joints of unspecified foot. COMPARISON: Left ankle 06/30/2023. TECHNIQUE: 3 views of the left ankle. FINDINGS: Stable alignment with some early healing changes involving the oblique fracture of the distal fibular shaft and the transverse fracture of the medial malleolus. XR/XR ankle LT min 3V IMPRESSION: Stable displaced medial malleolar and distal fibular fractures compared to 06/30/2023. Mild early healing changes present.
== END 2023-07-25 08:57 | disposition home or self-care (01) ==
LOC: HO.HOSX 08:56
PROVIDERS: Visit Provider Physician Assistant
DX: S82.842D Displaced bimalleolar fracture of left lower leg, subsequent encounter for closed fracture with routine healing (principal); E11.9 Type 2 diabetes mellitus without complications; F19.11 Other psychoactive substance abuse, in remission; Z86.74 Personal history of sudden cardiac arrest
CPT/HCPCS: 29405; 73610; 99212

== ENCOUNTER 2023-07-25 14:37 | Outpatient (AMB) | payer OTHER, SELFPAY ==
--- NOTE | 2023-07-25 14:56 | A.OFFVIS_ITS ---
Intake Visit Reasons: OV-LT ankle pain-w/xray-cast off Intake Note: Anna Marie is a 52 year old female who presents today for a follow up of her left ankle fx, DOI 06/14/23. Patient reports she is doing a little better. She states that she is about to put a small amount of trent in her left ankle with no pain. Allergies pantoprazole Allergy (Mild, Verified 07/25/23 14:59) Redness of Skin HPI HPI OV-LT ankle pain-w/xray-cast off: Details: 52-year-old female who presents in the office today for a follow up of a left ankle bimalleolar fracture, which occurred on 06/14/2023 status post attempting to get into bed when she tripped and fell. I last saw the patient in the office on 06/30/2023 when she was placed into a short leg cast and asked to continue to monitor the ankle for increased pain or hot spots. While in the office today the patient reports she is doing a little better. She confirms applying a small amount of weight to the left lower extremity, which has given her no pain. [facility] Medical History History of cardiac arrest Wound drainage Takotsubo cardiomyopathy Kidney stones UTI (urinary tract infection) Bipolar 1 disorder Diabetes Asthma Substance abuse Surgical History S/P ureteral stent placement H/O exploratory laparotomy S/P cholecystectomy Family History Mother No pertinent family history Father No pertinent family history Social History Household Members: Spouse Household Members Other:: 1 Housing: Apartment Do you presently have visiting nurse or other home services: Yes Alcohol intake: never Comment: stayed in ed Patient Tobacco Use Status: Never used Tobacco Second Hand Smoke Exposure: Yes Advance Directives Date on File: 02/04/23 service: No Current occupational status: disabled Review of Systems Const All systems reviewed & are unremarkable except as noted in HPI and below Physical Exam Const General: cooperative and no acute distress Orientation/consciousness: patient oriented x3 Resp Effort & Inspection: normal respiratory effort and able to speak in complete sentences Cardio Rate: regular rate Peripheral pulses: Peripheral pulses 2+ throughout GI Palpation (GI): Soft to palpation Skin General skin exam: no rashes or lesions noted Lesions: no lesions Rashes: no rashes Neuro General: patient oriented x3 Extrem Other: Left ankle: Moderate circumferential edema. Tenderness to palpation over the medial and lateral malleolus. Superficial skin abrasion along the anterior medial aspect of the ankle. No surrounding erythema or drainage. No signs of infection. Slight able to dorsiflex and plantarflex but is limited due to pain. She has a baseline decrease in ROM. She has baseline numbness and tingling form neuropathy. Pedal pulse intact. Office Procedures Casting/Splints [id number] Leg Cast Application Procedure code (CPT) selection complete Assessment & Plan Assessment & Plan (1) Bimalleolar fracture of left ankle: Code(s): S82.842A - Displaced bimalleolar fracture of left lower leg, initial encounter for closed fracture Category: Medical Qualifiers: Encounter type: initial encounter Fracture type: closed Qualified Code(s): S82.842A - Displaced bimalleolar fracture of left lower leg, initial encounter for closed fracture (2) Diabetes: Code(s): E11.9 - Type 2 diabetes mellitus without complications Category: Medical (3) History of cardiac arrest: Code(s): Z86.74 - Personal history of sudden cardiac arrest Category: Medical (4) History of substance abuse: Code(s): F19.11 - Other psychoactive substance abuse, in remission Category: Medical (5) History of tracheostomy: Code(s): Z98.890 - Other specified postprocedural states Category: Surgical Plan Ms. Black is a 52-year-old female who presents in the office today for a follow up of a left ankle bimalleolar fracture, which occurred on 06/14/2023 status post attempting to get into bed when she tripped and fell. I last saw the patient in the office on 06/30/2023 when she was placed into a short leg cast and asked to continue to monitor the ankle for increased pain or hot spots. While in the office today the patient reports she is doing a little better. She confirms applying a small amount of weight to the left lower extremity, which has given her no pain. Dr. Payne was available to see the patient with me while in the office today and a collaborative treatment plan was made. X-rays obtained today revealed not a lot of healing. There is malalignment due to the patient?s comorbidities including significant diabetes, uncontrolled neuropathy, currently on Eliquis, history of tracheostomy, and history of cardiac arrest with anesthesia. Therefore, we have decided to continue to treat this patient non-operatively. Patient is aware she may have ankle deformity and issues with stability. She was placed back into a custom-made short leg cast and will continue to be non-weight bearing. Follow up will be in 6 weeks with cast off and repeat x-rays, or sooner if needed. X-rays of the left ankle which were obtained while in the office today and were reviewed by me, Portia Elizabeth PA-C, redemonstrated a slow healing with malalignment of a left ankle bimalleolar fracture. Orders: Orders XR ankle LT min 3V 07/25/23 M25.579 - Pain in unspecified ankle and joints of unspecified foot Patient Instructions: Scribed by [facility] medical specialist, for Portia Elizabeth PA-C on 07/25/2023 at 2:50 pm, EST. Coding Level of Care Code Global (87698) Diagnoses Closed bimalleolar fracture of left ankle, initial encounter S82.842A Encounter type: initial encounter Fracture type: closed Diabetes E11.9 History of cardiac arrest Z86.74 History of substance abuse F19.11 History of tracheostomy Z98.890 CPT Codes Casting - CPT: 08403-[employer] Leg Cast Application ([id number])
== END 2023-07-25 15:52 | disposition home or self-care (01) ==
LOC: HO.HOS 14:37
PROVIDERS: PCP Internal Medicine; Visit Provider Physician Assistant
DX: S82.842A Displaced bimalleolar fracture of left lower leg, initial encounter for closed fracture (principal); E11.9 Type 2 diabetes mellitus without complications
CPT/HCPCS: 29405; 99024

== ENCOUNTER 2023-07-29 10:46 | Outpatient (AMB) | payer OTHER, SELFPAY ==
--- NOTE | 2023-07-29 11:04 | A.OFFVIS_ITS ---
Intake Visit Reasons: OV-LT ankle pain-w/xray-cast change Intake Note: Anna Marie is 52 year old female who presents today for a cast change s/p left ankle pain due to a coffee spill. Allergies pantoprazole Allergy (Mild, Verified 07/25/23 14:59) Redness of Skin HPI HPI OV-LT ankle pain-w/xray-cast change: Details: 52-year-old female who presents in the office today for a cast change. The patient is currently being treated for a left ankle bimalleolar fracture, which occurred on 06/14/2023 status post attempting to get into bed when she tripped and fell. Patient called the office this morning to reports spilling coffee on her cast. She was scheduled for a same day appointment for a cast change. [facility] Medical History History of cardiac arrest Wound drainage Takotsubo cardiomyopathy Kidney stones UTI (urinary tract infection) Bipolar 1 disorder Diabetes Asthma Substance abuse Surgical History S/P ureteral stent placement H/O exploratory laparotomy S/P cholecystectomy Family History Mother No pertinent family history Father No pertinent family history Social History Household Members: Spouse Household Members Other:: 1 Housing: Apartment Do you presently have visiting nurse or other home services: Yes Alcohol intake: never Comment: stayed in ed Patient Tobacco Use Status: Never used Tobacco Second Hand Smoke Exposure: Yes Advance Directives Date on File: 02/04/23 service: No Current occupational status: disabled Review of Systems Const All systems reviewed & are unremarkable except as noted in HPI and below Physical Exam Const General: cooperative, healthy appearing and no acute distress Resp Effort & Inspection: normal respiratory effort and able to speak in complete sentences Cardio Rate: regular rate Peripheral pulses: Peripheral pulses 2+ throughout GI Palpation (GI): Soft to palpation Skin Lesions: no lesions Rashes: no rashes Extrem Other: Left ankle: Moderate circumferential edema. Tenderness to palpation over the medial and lateral malleolus. Superficial skin abrasion along the anterior medial aspect of the ankle. No surrounding erythema or drainage. No signs of infection. Slight able to dorsiflex and plantarflex but is limited due to pain. She has a baseline decrease in ROM. She has baseline numbness and tingling form neuropathy. Pedal pulse intact. Office Procedures Casting/Splints [id number] Leg Cast Application Procedure code (CPT) selection complete Assessment & Plan Assessment & Plan (1) Bimalleolar fracture of left ankle: Code(s): S82.842A - Displaced bimalleolar fracture of left lower leg, initial encounter for closed fracture Category: Medical Qualifiers: Encounter type: initial encounter Fracture type: closed Qualified Code(s): S82.842A - Displaced bimalleolar fracture of left lower leg, initial encounter for closed fracture (2) Diabetes: Code(s): E11.9 - Type 2 diabetes mellitus without complications Category: Medical (3) History of cardiac arrest: Code(s): Z86.74 - Personal history of sudden cardiac arrest Category: Medical (4) History of substance abuse: Code(s): F19.11 - Other psychoactive substance abuse, in remission Category: Medical (5) History of tracheostomy: Code(s): Z98.890 - Other specified postprocedural states Category: Surgical Plan Ms. Black is a 52-year-old female who presents in the office today for a cast change. The patient is currently being treated for a left ankle bimalleolar fracture, which occurred on 06/14/2023 status post attempting to get into bed when she tripped and fell. Patient called the office this morning to reports spilling coffee on her cast. She was scheduled for a same day appointment for a cast change. Patient will be placed into a new custom-made short leg cast in the office today. Patient was again educated on cast maintenance in the office today. She will follow up at her regularly scheduled appointment, or sooner if needed. Patient Instructions: Scribed by Meli Singh biomedical analytical scientist, for Portia Elizabeth PA-C on at 11:26 am, EST. Coding Level of Care Code Global (95380) Diagnoses Closed bimalleolar fracture of left ankle, initial encounter S82.842A Encounter type: initial encounter Fracture type: closed Diabetes E11.9 History of cardiac arrest Z86.74 History of substance abuse F19.11 History of tracheostomy Z98.890 CPT Codes Casting - CPT: 75115-[employer] Leg Cast Application ([id number])
== END 2023-07-29 11:43 | disposition home or self-care (01) ==
LOC: HO.HOS 10:47
PROVIDERS: PCP Internal Medicine; Visit Provider Physician Assistant
DX: S82.842A Displaced bimalleolar fracture of left lower leg, initial encounter for closed fracture (principal); E11.9 Type 2 diabetes mellitus without complications; Z86.74 Personal history of sudden cardiac arrest; F19.11 Other psychoactive substance abuse, in remission
CPT/HCPCS: 29405; 99024

== ENCOUNTER → 2023-07-29 10:46 | Outpatient (BNVA) | payer OTHER, SELFPAY | PROVIDERS: PCP Internal Medicine; Visit Provider Physician Assistant | DX: Z48.00 Encounter for change or removal of nonsurgical wound dressing (principal); S82.842A Displaced bimalleolar fracture of left lower leg, initial encounter for closed fracture; W01.0XXA Fall on same level from slipping, tripping and stumbling without subsequent striking against object, initial encounter; Y93.89 Activity, other specified; Y92.003 Bedroom of unspecified non-institutional (private) residence as the place of occurrence of the external cause; Y99.9 Unspecified external cause status; E11.9 Type 2 diabetes mellitus without complications; F19.11 Other psychoactive substance abuse, in remission | CPT/HCPCS: 29405; 99212 ==

== ENCOUNTER 2023-08-18 00:40 | Inpatient (IN) | payer OTHER, SELFPAY ==
[2023-08-18] VITALS (13 sets, daily range): BP systolic 125–160; BP diastolic 59–98; PULSE 59–100; RESP 12–20; TEMP 36–37.3; O2SAT 90–96; BMI 41.2
--- NOTE | ~2023-08-18 | XR_ITS ---
EXAMINATION: XR CHEST CLINICAL INFORMATION: Shortness of breath, cough COMPARISON: 07/24/2023 TECHNIQUE: Frontal view of the chest was obtained. FINDINGS: Redemonstrated tracheostomy tube. There is slight elevation of the right hemidiaphragm which is similar to prior. Mildly coarsened appearance of the interstitium without focal consolidation. No evidence of pneumothorax, significant pleural effusion, or overt pulmonary edema. Cardiac silhouette appears near the upper limits of normal in size. No acute osseous findings are seen. XR/XR chest 1V IMPRESSION: No focal consolidation. Mildly coarsened appearance of the interstitium may reflect airways disease.
--- NOTE | 2023-08-18 00:50 | ECG_ITS ---
Test Reason : SOB Blood Pressure : / mmHG Vent. Rate : 088 BPM Atrial Rate : 088 BPM P-R Int : 162 ms QRS Dur : 082 ms QT Int : 370 ms P-R-T Axes : 048 -03 039 degrees QTc Int : 447 ms Normal sinus rhythm Low voltage QRS Borderline ECG When compared with ECG of 24-JUL-2023 03:40, No significant change was found Referred By: Generic ED Physician Electronically Signed By:LAMBERT DE LA CRUZ MD
[2023-08-18 01:00] LABS: MANUAL DIFF FLAG NO
[2023-08-18 01:09] LABS: Basophils Absolute Auto 0.1 X10*3/uL (0.0-0.2); Basophils Percent Auto 0.7 % (0-2); Eosinophils Absolute Auto 0.9 X10*3/uL (0.0-0.4); Eosinophils Percent Auto 10.1 % (0-4); Hematocrit 36.3 % (37.0-47.0); Hemoglobin 11.4 g/dl (12.0-16.0); Imm Gran Abs Auto 0.03 X10*3/uL (0.00-0.03); Imm Gran Pct Auto 0.3 % (0.0-0.4); Lymphocytes Absolute Auto 1.8 X10*3/uL (1.2-4.9); Lymphocytes Percent Auto 19.6 % (20-40); Mean Corpuscular HGB Conc 31.4 g/dl (31.0-35.0); Mean Corpuscular Hemoglobin 26.6 pg (27.0-33.0); Mean Corpuscular Volume 84.6 fL (80.0-98.0); Mean Platelet Volume 9.3 fL (9.4-12.3); Monocytes Absolute Auto 0.6 X10*3/uL (0.1-1.2); Neutrophils Absolute Auto 5.6 x10*3/uL (2.0-8.3); Neutrophils Percent Auto 62.3 % (45-73); Platelet Count 392 X10*3/uL (160-400); Red Blood Count 4.29 X10*6/uL (4.20-5.50); Red Cell Distribution Width 13.9 % (11.0-16.0)
[2023-08-18 01:14] LABS: Anion Gap 17 (12-20); Blood Urea Nitrogen 15 mg/dL (9-16); Calcium 9.5 mg/dL (8.4-10.2); Carbon Dioxide 33 mmol/L (22-29); Chloride 96 mmol/L (96-108); Creatinine Clr Calc Pharmacy 71.2; Estimated Glomerular Filt Rate 54; Glucose Random 175 mg/dL (60-115); Potassium 4.5 mmol/L (3.3-5.1); Sodium 141 mmol/L (135-145)
[2023-08-18 01:24] LABS: COVID-19 Test Negative (Negative); IDNOW Serial# 08D9AD1C; IDNOW Serial# 152EDE1D; Influenza A Negative (Negative); Influenza B2 Negative (Negative)
[2023-08-18 01:28] LABS: Troponin-I High Sensitivity < 2.7 ng/L (<3.5-17.0)
--- NOTE | 2023-08-18 02:21 | ED.SOB ---
HPI - SOB/Dyspnea General Chief Complaint: Dyspnea Stated Complaint: SOB Time Seen by Provider: 08/18/23 01:36 History of Present Illness HPI Narrative: Patient is a 52-year-old female with a history of substance abuse history of asthma status post trach. History of diabetes history of hypoxemia respiratory failure. Presented today with having coughing congestion upper respiratory symptoms generalized malaise has been getting worse over last few days. Requiring oxygen on an outpatient basis. Patient denies any diaphoresis feels very weak. She has a history of pulmonary emboli and is on Eliquis. Related Data Home Medications ?Medication ?Instructions ?Recorded ?Confirmed albuterol sulfate 2.5 mg/3 mL 2.5 mg inhalation Q4H PRN wheezing 02/02/23 06/16/23 (0.083 %) solution for nebulization albuterol sulfate 90 mcg/actuation 2 puff inhalation Q4H PRN wheezing 02/02/23 06/16/23 aerosol inhaler (Ventolin HFA) apixaban 5 mg tablet (Eliquis) 5 mg PO BID 02/02/23 06/16/23 atorvastatin 10 mg tablet 10 mg PO BEDTIME 02/02/23 06/16/23 clonazepam 1 mg tablet 1 mg PO BID PRN Anxiety 02/02/23 06/16/23 escitalopram oxalate 20 mg tablet 20 mg PO BEDTIME 02/02/23 06/16/23 famotidine 20 mg tablet 20 mg PO BID 02/02/23 06/16/23 fluticasone 500 mcg-salmeterol 50 1 ea inhalation BID 02/02/23 06/16/23 mcg/dose blistr powdr for inhalation (Advair Diskus) fluticasone propionate 50 1 spray intranasal DAILY PRN 02/02/23 06/16/23 mcg/actuation nasal allergies spray,suspension gabapentin 100 mg capsule 100 mg PO TID 02/02/23 06/16/23 glipizide 5 mg tablet 5 mg PO DAILY 02/02/23 06/16/23 insulin lispro 100 unit/mL 1 sliding scale dose subcut TIDAC 02/02/23 06/16/23 subcutaneous pen lurasidone 60 mg tablet 60 mg PO BEDTIME 02/02/23 06/16/23 metformin 500 mg tablet,extended 1,000 mg PO BID 02/02/23 06/16/23 release 24 hr oxcarbazepine 300 mg tablet 300 mg PO BID 02/02/23 06/16/23 promethazine 25 mg tablet 25 mg PO DAILY PRN nausea 02/02/23 06/16/23 tizanidine 4 mg tablet 4 mg PO DAILY PRN muscle spasm 02/02/23 06/16/23 trazodone 150 mg tablet 150 mg PO BEDTIME PRN Sleep 02/02/23 06/16/23 insulin glargine 100 unit/mL (3 10 unit subcut DAILY 06/15/23 06/16/23 mL) subcutaneous pen (Lantus Solostar U-100 Insulin) Previous Rx's ?Medication ?Instructions ?Recorded cefuroxime axetil 250 mg tablet 250 mg PO BID 5 days #10 tabs 06/20/23 prednisone 20 mg tablet 60 mg (3 x 20 mg) PO DAILY #12 tabs 07/11/23 cefuroxime axetil 500 mg tablet 500 mg PO BID 10 days #20 tabs 07/24/23 codeine 10 mg-guaifenesin 100 mg/5 10 ml PO Q6H PRN cough #237 mL 07/25/23 mL oral liquid Allergies Allergy/AdvReac Type Severity Reaction Status Date / Time pantoprazole Allergy Mild Redness of Verified 08/18/23 00:49 Skin Review of Systems Review of Systems: Positive shortness of breath coughing upper respiratory symptoms Yes all other systems are reviewed and are negative [facility] Past Medical History Attestation statement: The following information was validated with the patient. Medical History History of cardiac arrest Wound drainage Takotsubo cardiomyopathy Kidney stones UTI (urinary tract infection) Bipolar 1 disorder Diabetes Asthma Substance abuse Surgical History S/P ureteral stent placement H/O exploratory laparotomy S/P cholecystectomy Family History Family History Mother No pertinent family history Father No pertinent family history Social History Social History Household Members: Spouse Household Members Other:: 1 Housing: Apartment Do you presently have visiting nurse or other home services: Yes Alcohol intake: former Comment: stayed in ed Patient Tobacco Use Status: Never used Tobacco Smoked in Last 30 Days: No Second Hand Smoke Exposure: Yes Use of substances other than those prescribed or required for medical reasons: No Advance Directives: Yes Advance Directives on File: Yes Advance Directives Date on File: 02/04/23 Do you have a plan to hurt others: No Plan Patient : No service: No Current occupational status: disabled Physical Exam Vital Signs: Vital Signs: Last Vital Signs Temp 99.1 F 08/18/23 02:16 Pulse 86 08/18/23 02:43 Resp 12 08/18/23 03:12 BP 141/64 H 08/18/23 02:16 Pulse Ox 94 08/18/23 02:16 O2 Del Method Nasal Cannula 08/18/23 02:16 O2 Flow Rate 2 08/18/23 02:16 BMI result Body Mass Index 41.2 Appearance: Alert. Oriented X3. No acute distress. Eyes: Pupils equal, round and reactive to light. ENT: Pharynx normal. Neck: Normal inspection. Neck supple. No lymph nodes noted. No crepitus CVS: Normal heart rate and rhythm. Pulses normal. Normal S1 and S2 Respiratory: No respiratory distress. Positive diminished breath sounds bilaterally minimal wheezing noted. Increased work of breathing. Abdomen: Soft and nontender. No rigidity. No distention. good BS x4 Skin: Skin warm and dry. Normal skin color. Normal skin turgor. Extremities: No lower extremity edema. Neurovascular intact to all extremities. No Lacerations. No Rash Neuro: Oriented X 3. No motor deficit. No sensory deficit. Moving all extermities. No slurred speech Medications Administered Discontinued Medications Generic Name Dose Route Start Last Admin Trade Name Freq PRN Reason Stop Dose Admin Albuterol Sulfate 5 mg 08/18/23 02:18 08/18/23 02:40 Albuterol Sulfate (0.083%) 2.5 Mg/3 Ml Vial.Neb INHALE 08/18/23 02:19 5 mg ONCE ONE Administration Albuterol/Ipratropium 3 ml 08/18/23 02:18 08/18/23 02:41 Albuterol/Iprat 2.5/0.5mg 3 Ml Ampul.Neb INHALE 08/18/23 02:19 3 ml ONCE ONE Administration Hydromorphone HCl 0.5 mg 08/18/23 03:06 08/18/23 03:12 Hydromorphone Hcl 0.5 Mg/0.5 Ml Syringe IVPUSH 08/18/23 03:07 0.5 mg ONCE ONE Administration Protocol Sodium Chloride 1,000 mls @ 999 mls/hr 08/18/23 02:30 08/18/23 03:05 Ns IV 08/18/23 03:30 999 mls/hr .Q1H1M RILEY Administration Methylprednisolone Sodium Succinate 125 mg 08/18/23 02:18 08/18/23 03:05 Methylprednisolone Sod Succ 125 Mg/2 Ml Vial IVPUSH 08/18/23 02:19 125 mg ONCE ONE Administration Medical Decision Making Medical Decision Making [facility] Narrative: Positive shortness of breath coughing upper respiratory symptoms. My interpretation patient's chest x-ray was grossly negative for any acute evidence of pneumonia. Given a continuous neb here in the emergency department. Symptoms seems to be improving. However given patient's baseline state of severe asthma history of intubation in the past. Elected to admit patient for further evaluation. Cultures are obtained antibiotic was started. Neb treatment given. Steroids given. Patient's flu RSV COVID were all negative. Patient's lactate was 1.5 no evidence for severe sepsis. She refuses his ABG. Patient's troponin is negative symptoms not consistent with ACS. My interpretation of her EKG showed a sinus rhythm heart rate is 90 TX QRS QTC normal there has no acute ST segment elevation noted. Differential Diagnosis Differential Diagnoses: The differential diagnosis associated with the presentation includes COPD, bronchitis, pneumonia, asthma Admission/Observation Consideration of admission/observation: Escalation of care including admission/observation considered Consult Healthcare Provider Management of the patient was discussed with: Hospitalist Lab Data [facility] Lab Attestation statement: I reviewed the patient's lab results. 08/18/23 00:56 08/18/23 00:56 Labs: Lab Results 08/18/23 08/18/23 08/18/23 Range/Units 00:56 01:00 02:36 WBC 9.0 (4.8-10.8) X10*3/uL RBC 4.29 (4.20-5.50) X10*6/uL Hgb 11.4 L (12.0-16.0) g/dl Hct 36.3 L (37.0-47.0) % MCV 84.6 (80.0-98.0) fL MCH 26.6 L (27.0-33.0) pg MCHC 31.4 (31.0-35.0) g/dl RDW 13.9 (11.0-16.0) % Plt Count 392 D (160-400) X10*3/uL MPV 9.3 L (9.4-12.3) fL Immature Gran % (Auto) 0.3 (0.0-0.4) % Neut % (Auto) 62.3 (45-73) % Lymph % (Auto) 19.6 L (20-40) % [place] % (Auto) 7.0 (2-11) % Eos % (Auto) 10.1 H (0-4) % Baso % (Auto) 0.7 (0-2) % Lymph # (Auto) 1.8 (1.2-4.9) X10*3/uL [place] # (Auto) 0.6 (0.1-1.2) X10*3/uL Eos # (Auto) 0.9 H (0.0-0.4) X10*3/uL Baso # (Auto) 0.1 (0.0-0.2) X10*3/uL Abs Immat Gran (auto) 0.03 (0.00-0.03) X10*3/uL Absolute Neuts (auto) 5.6 (2.0-8.3) x10*3/uL Absolute Nucleated RBC 0.000 (0.0-0.012) X10*3/uL Nucleated RBC % (auto) 0.0 (0.0-0.2) /100WBC Sodium 141 (135-145) mmol/L Potassium 4.5 (3.3-5.1) mmol/L Chloride 96 (96-108) mmol/L Carbon Dioxide 33 H (22-29) mmol/L Anion Gap 17 (12-20) BUN 15 (9-16) mg/dL Creatinine 1.06 (0.5-1.4) mg/dL Estim Creat Clear Calc 71.2 Estimated GFR 54 Random Glucose 175 H (60-115) mg/dL Lactic Acid 1.5 (0.5-2.0) mmol/L Calcium 9.5 (8.4-10.2) mg/dL Troponin I High Sens < 2.7 (<3.5-17.0) ng/L COVID-19 (PRETTY) Negative (Negative) COVID-19 Clin Com See Note Influenza Type A (JOSE) Negative (Negative) Influenza Type B (JOSE) Negative (Negative) Influenza A & B Note See Note Independent Interpretation I performed an independent interpretation of an: EKG (My interpretation patient's EKG as above) and Plain X-Ray (Chest x-ray grossly negative) Radiology Impression Discussion of test interpretation with radiology: I have reviewed the radiologist's reading. External Record Review External record reviewed: Inpatient record Critical Care Time Critical Care Time Critical Care Time: Yes Total Critical Care Time: 40 Attestation: I have personally provided 40 minutes of critical care time exclusive of time spent on separately billable procedures. ?Time includes review of lab data, radiology results, discussion with consultants, and monitoring for potential decompensation. ?Interventions were performed as documented above Discharge Plan Discharge Clinical Impression: Asthma with exacerbation Patient Disposition: Admitted As Inpatient Prescriptions: No Action insulin glargine [Lantus Solostar U-100 Insulin] 100 unit/mL (3 mL) insulin pen 10 unit subcut DAILY cefuroxime axetil 250 mg tablet 250 mg PO BID 5 Days Qty: 10 0RF prednisone 20 mg tablet 60 mg PO DAILY Qty: 12 0RF cefuroxime axetil 500 mg tablet 500 mg PO BID 10 Days Qty: 20 0RF codeine-guaifenesin 10-100 mg/5 mL liquid 10 ml PO Q6H PRN (Reason: cough) Qty: 237 0RF albuterol sulfate 2.5 mg /3 mL (0.083 %) solution for nebulization 2.5 mg inhalation Q4H PRN (Reason: wheezing) atorvastatin 10 mg tablet 10 mg PO BEDTIME tizanidine 4 mg tablet 4 mg PO DAILY PRN (Reason: muscle spasm) clonazepam 1 mg tablet 1 mg PO BID PRN (Reason: Anxiety) oxcarbazepine 300 mg tablet 300 mg PO BID famotidine 20 mg tablet 20 mg PO BID trazodone 150 mg tablet 150 mg PO BEDTIME PRN (Reason: Sleep) promethazine 25 mg tablet 25 mg PO DAILY PRN (Reason: nausea) fluticasone propion-salmeterol [Advair Diskus] 500-50 mcg/dose blister with device 1 ea INHALATION BID gabapentin 100 mg capsule 100 mg PO TID albuterol sulfate [Ventolin HFA] 90 mcg/actuation HFA aerosol inhaler 2 puff inhalation Q4H PRN (Reason: wheezing) fluticasone propionate 50 mcg/actuation spray,suspension 1 spray intranasal DAILY PRN (Reason: allergies) Rx Instructions: INHALE IN BOTH NOSTRILS metformin 500 mg tablet extended release 24 hr 1,000 mg PO BID glipizide 5 mg tablet 5 mg PO DAILY insulin lispro 100 unit/mL insulin pen 1 sliding scale dose subcut TIDAC escitalopram oxalate 20 mg tablet 20 mg PO BEDTIME Eliquis 5 mg tablet 5 mg PO BID lurasidone 60 mg tablet 60 mg PO BEDTIME Print Language: Yoruba
--- NOTE | 2023-08-18 02:34 | PC.RT ---
Pt refused ABG
[2023-08-18] MEDS: Albuterol Sulfate (0.083%) 2.5 MG/3 ML VIAL.NEB 5 MG INHALE (02:40)
[2023-08-18] MEDS: Albuterol/Iprat 2.5/0.5MG 3 ML AMPUL.NEB INHALE ×5 (02:41→19:00)
[2023-08-18 02:51] LABS: Lactic Acid 1.5 mmol/L (0.5-2.0)
[2023-08-18] MEDS: 0.9 % Sodium Chloride 1,000 ML 999 ML IV (03:05)
[2023-08-18] MEDS: methylPREDNISolone Sod Succ 125 MG/2 ML VIAL IVPUSH (03:05)
[2023-08-18] MEDS: HYDROmorphone HCl 0.5 MG/0.5 ML SYRINGE IVPUSH (03:12)
--- NOTE | 2023-08-18 03:47 | P.HPHOSP_ITS ---
History of Present Illness Date of Service: 08/18/23 Chief Complaint: Cough and wheezing This is a 52-year-old female with pertinent history of chronic hypoxemic respiratory failure on trach collar due to asthma, hypertension, insulin- dependent diabetes mellitus, mixed hyperlipidemia, mood disorder, history of PE on Eliquis who presents to the emergency department for evaluation of dyspnea. Patient states symptoms started 1 week prior to presentation. She has been having cough with intermittent sputum production. Also has been having wheezing and dyspnea. Symptoms have progressed over the last 1 week. No fever or chills. She uses 2 L supplemental oxygen at baseline as needed. No chest discomfort, palpitations, abdominal pain, changes in urinary or bowel habits. No symptoms of choking or coughing with food. In the emergency department, patient requiring supplemental oxygen and wheezing despite multiple DuoNeb treatments. Review of Systems 2 Constitutional: Constitutional: Reports fatigue Cardiovascular: Cardiovascular: Reports dyspnea on exertion Respiratory: Respiratory: Reports cough, Reports dyspnea on exertion and Reports wheezing Gastrointestinal: Gastrointestinal: Reports no additional gastrointestinal complaints Genitourinary: Genitourinary: Reports no additional female genitourinary complaints Endocrine: Endocrine: Reports fatigue Allergic/Immunologic: Allergic/Immunologic: Reports wheezing [facility] Medical History History of cardiac arrest Wound drainage Takotsubo cardiomyopathy Kidney stones UTI (urinary tract infection) Bipolar 1 disorder Diabetes Asthma Substance abuse Family History Mother No pertinent family history Father No pertinent family history Surgical History S/P ureteral stent placement H/O exploratory laparotomy S/P cholecystectomy Social History Household Members: Spouse Household Members Other:: 1 Housing: Apartment Do you presently have visiting nurse or other home services: Yes Alcohol intake: former Comment: stayed in ed Patient Tobacco Use Status: Never used Tobacco Smoked in Last 30 Days: No Second Hand Smoke Exposure: Yes Use of substances other than those prescribed or required for medical reasons: No Advance Directives: Yes Advance Directives on File: Yes Advance Directives Date on File: 02/04/23 Do you have a plan to hurt others: No Plan Nutrition Risks: No Nutritional Risk Patient : No service: No Current occupational status: disabled Meds Allergies Allergy/AdvReac Type Severity Reaction Status Date / Time pantoprazole Allergy Mild Redness of Verified 08/18/23 00:49 Skin Active Medications: Current Medications Ceftriaxone Sodium 1 gm/ (Sodium Chloride) 50 mls @ 100 mls/hr IV ONCE ONE Stop: 08/18/23 04:02 Azithromycin 500 mg/ Sodium (Chloride) 250 mls @ 125 mls/hr IV ONCE ONE Stop: 08/18/23 05:32 Home Medications ?Medication ?Instructions ?Recorded ?Confirmed ?Last Taken ?Type albuterol sulfate 2.5 mg/3 mL 2.5 mg inhalation Q4H PRN wheezing 02/02/23 06/16/23 Unknown History (0.083 %) solution for nebulization albuterol sulfate 90 mcg/actuation 2 puff inhalation Q4H PRN wheezing 02/02/23 06/16/23 Unknown History aerosol inhaler (Ventolin HFA) apixaban 5 mg tablet (Eliquis) 5 mg PO BID 02/02/23 06/16/23 03/26/23 History atorvastatin 10 mg tablet 10 mg PO BEDTIME 02/02/23 06/16/23 03/26/23 History clonazepam 1 mg tablet 1 mg PO BID PRN Anxiety 02/02/23 06/16/23 Unknown History escitalopram oxalate 20 mg tablet 20 mg PO BEDTIME 02/02/23 06/16/23 03/26/23 History famotidine 20 mg tablet 20 mg PO BID 02/02/23 06/16/23 03/26/23 History fluticasone 500 mcg-salmeterol 50 1 ea inhalation BID 02/02/23 06/16/23 03/26/23 History mcg/dose blistr powdr for inhalation (Advair Diskus) fluticasone propionate 50 1 spray intranasal DAILY PRN 02/02/23 06/16/23 03/26/23 History mcg/actuation nasal allergies spray,suspension gabapentin 100 mg capsule 100 mg PO TID 02/02/23 06/16/23 03/26/23 History glipizide 5 mg tablet 5 mg PO DAILY 02/02/23 06/16/23 03/26/23 History insulin lispro 100 unit/mL 1 sliding scale dose subcut TIDAC 02/02/23 06/16/23 03/26/23 History subcutaneous pen lurasidone 60 mg tablet 60 mg PO BEDTIME 02/02/23 06/16/23 03/26/23 History metformin 500 mg tablet,extended 1,000 mg PO BID 02/02/23 06/16/23 03/26/23 History release 24 hr oxcarbazepine 300 mg tablet 300 mg PO BID 02/02/23 06/16/23 03/26/23 History promethazine 25 mg tablet 25 mg PO DAILY PRN nausea 02/02/23 06/16/23 Unknown History tizanidine 4 mg tablet 4 mg PO DAILY PRN muscle spasm 02/02/23 06/16/23 Unknown History trazodone 150 mg tablet 150 mg PO BEDTIME PRN Sleep 02/02/23 06/16/23 Unknown History insulin glargine 100 unit/mL (3 10 unit subcut DAILY 06/15/23 06/16/23 Unknown History mL) subcutaneous pen (Lantus Solostar U-100 Insulin) Physical Exam 2 Vital Signs and Narrative: Vital Signs: Last Vital Signs Temp 99.1 F 08/18/23 02:16 Pulse 86 08/18/23 02:43 Resp 12 08/18/23 03:12 BP 141/64 H 08/18/23 02:16 Pulse Ox 94 08/18/23 02:16 O2 Del Method Nasal Cannula 08/18/23 02:16 O2 Flow Rate 2 08/18/23 02:16 BMI result Body Mass Index 41.2 Middle-aged female lying in bed in mild distress on supplemental oxygen Neck supple, no JVD Regular rate and rhythm, S1-S2 heard Bilateral wheezing Abdomen soft nontender, no guarding, no rigidity Patient is awake, alert and oriented to self, place, time and person ; no focal motor deficit Psych: Normal mood No pedal edema Results Labs 08/18/23 00:56 08/18/23 00:56 Labs: Laboratory Results - last 24 hr 08/18/23 08/18/23 08/18/23 00:56 01:00 02:36 MCV 84.6 MCH 26.6 L MCHC 31.4 RDW 13.9 Plt Count 392 D MPV 9.3 L Immature Gran % (Auto) 0.3 Neut % (Auto) 62.3 Lymph % (Auto) 19.6 L [place] % (Auto) 7.0 Eos % (Auto) 10.1 H Baso % (Auto) 0.7 Lymph # (Auto) 1.8 [place] # (Auto) 0.6 Eos # (Auto) 0.9 H Baso # (Auto) 0.1 Abs Immat Gran (auto) 0.03 Absolute Neuts (auto) 5.6 Absolute Nucleated RBC 0.000 Nucleated RBC % (auto) 0.0 Anion Gap 17 Estim Creat Clear Calc 71.2 Estimated GFR 54 Random Glucose 175 H Lactic Acid 1.5 Calcium 9.5 Troponin I High Sens < 2.7 COVID-19 (PRETTY) Negative COVID-19 Clin Com See Note Influenza Type A (JOSE) Negative Influenza Type B (JOSE) Negative Influenza A & B Note See Note Imaging Radiologist's Impressions: Impressions Chest X-Ray 08/18/23 01:07 IMPRESSION: No focal consolidation. Mildly coarsened appearance of the interstitium may reflect airways disease. Assessment and Plan (1) Acute respiratory failure with hypoxia: Status: Acute (2) Acute asthma exacerbation: Qualifiers: Asthma severity: moderate Asthma persistence: unspecified Qualified Code(s): J45.901 - Unspecified asthma with (acute) exacerbation Status: Acute Plan This is a 52-year-old female with pertinent history of chronic hypoxemic respiratory failure on trach collar due to asthma, hypertension, insulin- dependent diabetes mellitus, mixed hyperlipidemia, mood disorder, history of PE on Eliquis who presents to the emergency department for evaluation of dyspnea. #. Acute on chronic hypoxemic respiratory failure due to acute exacerbation of asthma: Will admit patient with supplemental oxygen. Continue supplemental oxygen and wean as tolerated. Initiating systemic steroids. Scheduled and p.r.n. DuoNebs. Continue home inhaler #. Insulin-dependent diabetes mellitus with hyperglycemia: Initiating basal plus insulin regimen #. History of PE: On Eliquis #. Mixed hyperlipidemia: On statin #. Mood disorder: Continue home mood stabilizers #. Obesity: Low-calorie diet and weight loss Med rec pending DVT prophylaxis: Eliquis Full code Admit as inpatient and will require two night minimum hospital stay for IV steroids, supplemental oxygen (as above), which is not possible in a lesser acute setting. Quality Stroke Does the patient have a stroke diagnosis?: No VTE Prior VTE?: No VTE Risk Level:: Medical - moderate - high VTE Device Contraindication: Treatment Not Indicated VTE Drug Contraindication: N/A - Med Ordered
[2023-08-18] MEDS: cefTRIAXone sodium 1 GM in 0.9 % Sodium Chloride 50 ML IV (04:06)
[2023-08-18 05:13] LABS: PLT CLUMP 1; Red Blood Count 4.29 X10*6/uL (4.20-5.50); SCAN SMEAR FLAG 1
[2023-08-18 05:15] LABS: Basophils Percent Auto 0.4 % (0-2); Eosinophils Absolute Auto 0.5 X10*3/uL (0.0-0.4); Eosinophils Percent Auto 4.8 % (0-4); Hematocrit 36.6 % (37.0-47.0); Hemoglobin 11.2 g/dl (12.0-16.0); Imm Gran Abs Auto 0.06 X10*3/uL (0.00-0.03); Imm Gran Pct Auto 0.6 % (0.0-0.4); Lymphocytes Absolute Auto 0.9 X10*3/uL (1.2-4.9); Lymphocytes Percent Auto 8.8 % (20-40); MANUAL DIFF FLAG SCAN; Mean Corpuscular HGB Conc 30.6 g/dl (31.0-35.0); Mean Corpuscular Hemoglobin 26.1 pg (27.0-33.0); Mean Corpuscular Volume 85.3 fL (80.0-98.0); Mean Platelet Volume 10.4 fL (9.4-12.3); Monocytes Absolute Auto 0.3 X10*3/uL (0.1-1.2); Monocytes Percent Auto 2.9 % (2-11); NRBC Pct Auto 0.2 /100WBC (0.0-0.2); Neutrophils Absolute Auto 8.4 x10*3/uL (2.0-8.3); Neutrophils Percent Auto 82.5 % (45-73); Platelet Count 291 X10*3/uL (160-400); White Blood Count 10.1 X10*3/uL (4.8-10.8)
[2023-08-18] MEDS: Azithromycin 500 MG in 0.9 % Sodium Chloride 250 ML 125 MG IV (05:18)
--- NOTE | 2023-08-18 05:24 | PC.NURSE ---
Patient is alert and oriented x3, VSS. Patient reports pain in upper chest/back/b/l shoulder d/t cough ranging from 4-7/10 on 0-10 pain scale. Patient medicated per MAY. Patient reporting urge to urinate, assisted to bedside commode, voided, denies discomfort with urination. Patient requested to remove supplemental O2, saturating 93-94% RA. Dr. Lira at bedside.
[2023-08-18 05:31] LABS: Anion Gap 15 (12-20); Blood Urea Nitrogen 16 mg/dL (9-16); Calcium 9.4 mg/dL (8.4-10.2); Carbon Dioxide 27 mmol/L (22-29); Chloride 98 mmol/L (96-108); Creatinine Clr Calc Pharmacy 78.7; Estimated Glomerular Filt Rate > 60; Glucose Random 289 mg/dL (60-115); Potassium 5.2 mmol/L (3.3-5.1); Sodium 135 mmol/L (135-145)
[2023-08-18 05:43] LABS: SLIDE REVIEW VERIFIED
[2023-08-18] MEDS: traMADoL HCL 50 MG TABLET 25 MG PO (05:49)
[2023-08-18 07:21] LABS: Glucose, Whole Blood 440 mg/dL (60-115)
--- NOTE | 2023-08-18 07:53 | PC.NURSE ---
Pt reports Tramadol not helping back and shoulder pain POC [id number] Dr Broussard aware and will adjust SSI, pharmacy call for med rec
[2023-08-18] MEDS: Insulin Glargine,Hum.rec.anlog 100 UNIT/ML 10 ML VIAL 10 UNIT SUBCUT (08:29)
[2023-08-18] MEDS: methylPREDNISolone Sod Succ 40 MG/ML VIAL IVPUSH ×2 (08:29→19:16)
[2023-08-18] MEDS: oxyCODONE HCl Immed Release 5 MG TABLET PO ×3 (08:29→22:05)
[2023-08-18] MEDS: 0.9 % Sodium Chloride Flush 3 ML SYRINGE IVFLUSH ×2 (08:30→15:04)
[2023-08-18] MEDS: Insulin Lispro 100 UNIT/ML 3 ML VIAL SUBCUT ×4 (08:30→19:55)
[2023-08-18 09:00] LABS: Procalcitonin 0.02 ng/mL
--- NOTE | 2023-08-18 09:26 | MHC.CM.PN ---
EMR REVIEWED, PT ADMITTED W/DYSPNEA, CM MET W/PT WHO LIVES W/SPOUSE, USES A CANE, HAS A CHRONIC TRACH AND [facility] FOR HOME O2, PT HAS ORGAN FIXER HRS HOWEVER SPECIALIST IN ROOM AND CM TO REVISIT FOR DETAILS. PT DID REPORTS SHE WAS ABOUT TO START OUTPT PT AT [facility] PRIOR TO COMING TO HOSPITAL D/T R ANKLE FX. PCP/HCP ON FILE VERIFIED.
--- NOTE | 2023-08-18 09:33 | PHA.MEDREC ---
Addendum entered by Lavinia Shipman RPh 08/18/23 09:55: REVIEWED BY [facility] Original Note: Pharmacy Consult ? Medication Reconciliation Pharmacy has completed the medication reconciliation.
[2023-08-18] MEDS: clonazePAM 1 MG TABLET PO ×2 (10:57→19:17)
[2023-08-18] MEDS: Lidocaine 4 % Patch ADH..PATCH 2 PATCH TRANSDERMA (10:57)
[2023-08-18] MEDS: Apixaban 5 MG TABLET PO ×2 (10:57→19:17)
[2023-08-18] MEDS: Famotidine 20 MG TABLET PO ×2 (10:57→19:17)
[2023-08-18] MEDS: OXcarbazepine 300 MG TABLET PO ×2 (11:03→19:17)
[2023-08-18] MEDS: HYDROmorphone HCl 0.5 MG/0.5 ML SYRINGE 0.25 MG IVPUSH ×3 (11:04→19:54)
[2023-08-18 11:08] LABS: Adenovirus PCR Not Detected (Not Detect.); Bordetella parapertussis PCR Not Detected (Not Detect.); Bordetella pertussis PCR Not Detected (Not Detect.); Chlamydia pneumoniae PCR Not Detected (Not Detect.); Coronavirus 229E PCR Not Detected (Not Detect.); Coronavirus HKU1 PCR Not Detected (Not Detect.); Coronavirus NL63 PCR Not Detected (Not Detect.); Coronavirus OC43 PCR Not Detected (Not Detect.); Human metapneumovirus PCR Not Detected (Not Detect.); Influenza A PCR Not Detected (Not Detect.); Influenza B PCR Not Detected (Not Detect.); Mycoplasma pneumoniae PCR Not Detected (Not Detect.); Parainfluenza 1 PCR Not Detected (Not Detect.); Parainfluenza 2 PCR Not Detected (Not Detect.); Parainfluenza 3 PCR Not Detected (Not Detect.); Parainfluenza 4 PCR Not Detected (Not Detect.); RSV PCR Not Detected (Not Detect.); Rhino/Enterovirus PCR Not Detected (Not Detect.)
[2023-08-18 11:12] LABS: Glucose, Whole Blood 378 mg/dL (60-115)
[2023-08-18 11:46] LABS: SARS-CoV-2 PCR Not Detected (Not Detect.)
--- NOTE | 2023-08-18 12:43 | PM.CNPUL ---
History of Present Illness History of Present Illness Consult date: 08/18/23 Chief complaint: Dyspnea Narrative: This is an inpatient pulmonary consultation. The patient is a 52 years old woman past medical history significant for obesity, type 2 diabetes, PE on Eliquis, asthma/chronic respiratory failure w/ chronic tracheostomy -on home oxygen, bipolar disorder and takotsubo cardiomyopathy presents to the emergency department complaining of worsening shortness of breadth associated with productive sputum. Also having back and chest pain. She denies fever or chills. She also denied any chest pain, palpitations, headache or dizziness. In the ED, she is requiring oxygen. Review of Systems Constitutional: Constitutional: Reports fatigue Cardiovascular: Cardiovascular: Reports dyspnea on exertion Respiratory: Respiratory: Reports cough, Reports dyspnea on exertion and Reports wheezing Gastrointestinal: Gastrointestinal: Reports no additional gastrointestinal complaints Genitourinary: Genitourinary: Reports no additional female genitourinary complaints Endocrine: Endocrine: Reports fatigue Allergic/Immunologic: Allergic/Immunologic: Reports wheezing PMFSH Past Medical History Medical History (Updated 08/18/23 @ 12:46 by Selvin Barnes MD) Tracheostomy dependent History of cardiac arrest Wound drainage Takotsubo cardiomyopathy Kidney stones UTI (urinary tract infection) Bipolar 1 disorder Diabetes Asthma Substance abuse Family History Family History Mother No pertinent family history Father No pertinent family history Surgical History Surgical History S/P ureteral stent placement H/O exploratory laparotomy S/P cholecystectomy Social History Social History Household Members: Spouse Household Members Other:: 1 Housing: Apartment Do you presently have visiting nurse or other home services: No Alcohol intake: former Comment: stayed in ed Patient Tobacco Use Status: Never used Tobacco Second Hand Smoke Exposure: Yes Advance Directives Date on File: 02/04/23 service: No Current occupational status: disabled Meds Allergies Allergy/AdvReac Type Severity Reaction Status Date / Time pantoprazole Allergy Mild Redness of Verified 08/18/23 00:49 Skin Active Medications: Current Medications Acetaminophen (Acetaminophen 325 Mg Tablet) 650 mg PO Q6H PRN PRN Reason: Pain, Mild (Pain Scale 1-3) Albuterol/Ipratropium (Albuterol/Iprat 2.5/0.5mg 3 Ml Ampul.Neb) 3 ml INHALE RQ4H WHILE AWAKE [facility] Last Admin: 08/18/23 11:22 Dose: 3 ml Albuterol/Ipratropium (Albuterol/Iprat 2.5/0.5mg 3 Ml Ampul.Neb) 3 ml INHALE Q4H PRN PRN Reason: Wheezing Apixaban (Apixaban 5 Mg Tablet) 5 mg PO BID [facility] Last Admin: 08/18/23 10:57 Dose: 5 mg Atorvastatin Calcium (Atorvastatin Calcium 10 Mg Tablet) 10 mg PO BEDTIME [facility] Clonazepam (Clonazepam 1 Mg Tablet) 1 mg PO BID [facility] Last Admin: 08/18/23 10:57 Dose: 1 mg Diphenhydramine HCl (Diphenhydramine Hcl 25 Mg Capsule) 25 mg PO TID PRN PRN Reason: Allergic Symptoms Escitalopram Oxalate (Escitalopram Oxalate 20 Mg Tablet) 20 mg PO BEDTIME [facility] Famotidine (Famotidine 20 Mg Tablet) 20 mg PO BID [facility] Last Admin: 08/18/23 10:57 Dose: 20 mg Fluticasone Propionate (Fluticasone Propionate Nasal 16 Gm [place]) 1 spray NOSTRIL-B DAILY [facility] Gabapentin (Gabapentin 100 Mg Capsule) 100 mg PO TID [facility] Glipizide (Glipizide 5 Mg Tablet) 5 mg PO DAILY [facility] Glucose (Glucose Gel 15 Gm Gel..Gram.) 15 gm PO Q15M PRN; Protocol PRN Reason: per Hypoglycemia Standing Ord. Hydromorphone HCl (Hydromorphone Hcl 0.5 Mg/0.5 Ml Syringe) 0.25 mg IVPUSH Q4H PRN; Protocol PRN Reason: severe pain Last Admin: 08/18/23 11:04 Dose: 0.25 mg Dextrose (D10) 250 mls @ 750 mls/hr IV Q15M PRN; Protocol PRN Reason: per Hypoglycemia Standing Ord. Insulin Glargine (Insulin Glargine,Hum.Rec.Anlog 100 Unit/Ml 10 Ml Vial) 10 unit SUBCUT DAILY [facility] Last Admin: 08/18/23 08:29 Dose: 10 unit Insulin Human Lispro (Insulin Lispro 100 Unit/Ml 3 Ml Vial) 0 unit SUBCUT QIDACHS [facility]; Protocol Last Admin: 08/18/23 11:54 Dose: 18 unit Lidocaine (Lidocaine 4 % Patch Adh..Patch) 2 patch TRANSDERMA DAILY [facility]; Protocol Last Admin: 08/18/23 10:57 Dose: 2 patch Lurasidone HCl (Lurasidone Hcl 20 Mg Tablet) 60 mg PO BEDTIME [facility] Melatonin (Melatonin 3 Mg Tablet) 6 mg PO BEDTIME PRN PRN Reason: Insomnia Metformin HCl (Metformin Hcl Er 500 Mg Tab.Er.24h) 1,000 mg PO BID [facility] Methylprednisolone Sodium Succinate (Methylprednisolone Sod Succ 40 Mg/Ml Vial) 40 mg IVPUSH Q12H [facility] Last Admin: 08/18/23 08:29 Dose: 40 mg Ondansetron HCl (Ondansetron Hcl 4 Mg/2 Ml Vial) 4 mg IVPUSH Q8H PRN PRN Reason: Nausea and Vomiting Oxcarbazepine (Oxcarbazepine 300 Mg Tablet) 300 mg PO BID [facility] Last Admin: 08/18/23 11:03 Dose: 300 mg Oxycodone HCl (Oxycodone Hcl Immed Release 5 Mg Tablet) 5 mg PO Q4H PRN PRN Reason: moderate pain Promethazine HCl (Promethazine Hcl 25 Mg Tablet) 25 mg PO DAILY PRN PRN Reason: nausea Sodium Chloride (0.9 % Sodium Chloride Flush 3 Ml Syringe) 3 ml IVFLUSH QSHIFT [facility] Last Admin: 08/18/23 08:30 Dose: 3 ml Tizanidine HCl (Tizanidine Hcl 4 Mg Tablet) 4 mg PO DAILY PRN PRN Reason: muscle spasm Trazodone HCl (Trazodone Hcl 50 Mg Tablet) 150 mg PO BEDTIME PRN PRN Reason: Sleep Home Medications ?Medication ?Instructions ?Recorded ?Confirmed ?Last Taken ?Type albuterol sulfate 90 mcg/actuation 2 puff inhalation Q4H PRN wheezing 02/02/23 08/18/23 Unknown History aerosol inhaler (Ventolin HFA) apixaban 5 mg tablet (Eliquis) 5 mg PO BID 02/02/23 08/18/23 08/17/23 History atorvastatin 10 mg tablet 10 mg PO BEDTIME 02/02/23 08/18/23 08/17/23 History clonazepam 1 mg tablet 1 mg PO BID Anxiety 02/02/23 08/18/2308/16/24 History escitalopram oxalate 20 mg tablet 20 mg PO BEDTIME 02/02/23 08/18/23 08/17/23 History famotidine 20 mg tablet 20 mg PO BID 02/02/23 08/18/23 08/17/23 History fluticasone propionate 50 1 spray intranasal DAILY allergies 02/02/23 08/18/23 08/17/23 History mcg/actuation nasal spray,suspension gabapentin 100 mg capsule 100 mg PO TID 02/02/23 08/18/23 08/17/23 History glipizide 5 mg tablet 5 mg PO DAILY 02/02/23 08/18/23 08/17/23 History insulin lispro 100 unit/mL 1 sliding scale dose subcut TIDAC 02/02/23 08/18/23 08/17/23 History subcutaneous pen lurasidone 60 mg tablet 60 mg PO BEDTIME 02/02/23 08/18/23 08/17/23 History metformin 500 mg tablet,extended 1,000 mg PO BID 02/02/23 08/18/23 08/17/23 History release 24 hr oxcarbazepine 300 mg tablet 300 mg PO BID 02/02/23 08/18/23 08/17/23 History promethazine 25 mg tablet 25 mg PO DAILY PRN nausea 02/02/23 08/18/23 Unknown History tizanidine 4 mg tablet 4 mg PO DAILY PRN muscle spasm 02/02/23 08/18/23 Unknown History trazodone 150 mg tablet 150 mg PO BEDTIME PRN Sleep 02/02/23 08/18/23 Unknown History insulin glargine 100 unit/mL (3 10 unit subcut DAILY 06/15/23 08/18/23 08/17/23 History mL) subcutaneous pen (Lantus Solostar U-100 Insulin) codeine 10 mg-guaifenesin 100 mg/5 10 ml PO Q8H PRN cough 08/18/23 08/18/23 Unknown History mL oral liquid diphenhydramine HCl 25 mg capsule 25 mg PO TID PRN Allergic Symptoms 08/18/23 08/18/23 Unknown History (Benadryl) Physical Exam Vital Signs: Vital Signs: Last Vital Signs Temp 97.2 F 08/18/23 09:08 Pulse 85 08/18/23 11:24 Resp 18 08/18/23 11:24 BP 160/89 H 08/18/23 09:08 Pulse Ox 92 08/18/23 09:08 O2 Del Method Room Air 08/18/23 09:08 O2 Flow Rate 2 08/18/23 04:01 BMI result Body Mass Index 41.2 Const: General: comfortable and no acute distress Orientation/consciousness: patient oriented x3 Limitations: no limitations HEENT: Head: Yes normal to inspection Neck: Neck: Yes normal visual inspection and Yes tracheostomy present (bivona 6) Chest: Chest palpation & inspection: normal inspection of the chest Resp: Effort & Inspection: normal respiratory effort Auscultation: rhonchi, wheezes and diminished lung sounds Cardio: Rate: regular rate Rhythm: regular rhythm GI: Palpation (GI): Soft to palpation Skin: General skin exam: no rashes or lesions noted Neuro: General: patient oriented x3 Extrem: General: Yes normal to inspection Results Laboratory Findings 08/18/23 04:47 08/18/23 04:47 Abnormal lab findings: Abnormal Labs 08/18/23 08/18/23 08/18/23 00:56 04:47 07:18 Hgb 11.4 L 11.2 L Hct 36.3 L 36.6 L MCH 26.6 L 26.1 L MCHC 30.6 L MPV 9.3 L Immature Gran % (Auto) 0.6 H Neut % (Auto) 82.5 H Lymph % (Auto) 19.6 L 8.8 L Eos % (Auto) 10.1 H 4.8 H Lymph # (Auto) 0.9 L Eos # (Auto) 0.9 H 0.5 H Abs Immat Gran (auto) 0.06 H Absolute Neuts (auto) 8.4 H Absolute Nucleated RBC 0.020 H Potassium 5.2 H Carbon Dioxide 33 H POC Glucose 440 H* Random Glucose 175 H 289 H 08/18/23 11:00 Hgb Hct MCH MCHC MPV Immature Gran % (Auto) Neut % (Auto) Lymph % (Auto) Eos % (Auto) Lymph # (Auto) Eos # (Auto) Abs Immat Gran (auto) Absolute Neuts (auto) Absolute Nucleated RBC Potassium Carbon Dioxide POC Glucose 378 H* Random Glucose Assessment and Plan (1) Acute asthma exacerbation: Qualifiers: Asthma severity: moderate Asthma persistence: unspecified Qualified Code(s): J45.901 - Unspecified asthma with (acute) exacerbation Status: Acute (2) Tracheostomy dependent: Status: Acute Plan Continue Abx, Likely transiiton to PO 24-48 hours to complete an 8 day course continue solumedrol trach care Need a back up #6 uncuffed Bivona trach to have at the bedside PMV trach valve during the day trach collar at night to prevent plugging of the trach should call for a f/u with her [facility] Manager Pet in 2-3 weeks Procedures Date of Service Date of Service: 08/18/23
--- NOTE | 2023-08-18 14:58 | P.EN_ITS ---
Event Note Date of Service: 08/18/23 Event Note: Day hospitalist update S: dyspnea improved, c/o back pain O: Temp Pulse Resp BP Pulse Ox O2 Del Method O2 Flow Rate 97.2 F 85 18 160/89 H 92 Room Air 2 08/18/23 09:08 08/18/23 11:24 08/18/23 11:24 08/18/23 09:08 08/18/23 09:08 08/18/23 09:08 08/18/23 04:01 Gen: in no acute distress HEENT: sclera anicteric, moist mucus membranes Neck: supple, tracheostomy in place Lungs: diffuse exp wheezing Heart: regular rate and rhythm, no murmurs Abd: soft, non-tender, non-distended, obese Ext: no edema Skin: warm/well-perfused Neuro: alert and oriented x3, no focal findings Psych: appropriate affect A/P: d1 52yo F with chronic hypoxic resp failure due to asthma s/p tracheostomy on home oxygen, PE on Eliquis, HTN, DM2, HLD, obesity presenting with dyspnea + productive sputum for 1 wk acute/chronic hypoxic resp failure due to asthma exac - systemic IV steroids, standing/prn nebs - low PCT, no antibiotics for now, RPP negative - Pulm consult DM2 with steroid-induced hyperglycemia - basal-bolus insulin; increase correction-dose - continue MTF, GPZ back pain - lidocaine patch, oxycodone, IV hydromorphone; also on tizanidine + gabapentin neuropathy - gabapentin hx PE - apixaban HLD - statin morbid obesity - diet/exercise counseling bipolar disorder - oxcarbazepine, lurasidone, escitalopram, clonazepam, trazodone VTE ppx - apixaban dispo - TBD In my clinical judgment, the patient requires continued inpatient hospitalizat ion for the following reasons: steroids, oxygen, pulm consultation Time Spent With Patient Time: Total time managing care of this patient today __35__ minutes.
[2023-08-18] MEDS: Gabapentin 100 MG CAPSULE PO ×2 (15:04→19:17)
[2023-08-18 16:14] LABS: Glucose, Whole Blood 337 mg/dL (60-115)
[2023-08-18] MEDS: Escitalopram Oxalate 20 MG TABLET PO (19:17)
[2023-08-18] MEDS: Lurasidone HCl 20 MG TABLET 60 MG PO (19:17)
[2023-08-18] MEDS: Atorvastatin Calcium 10 MG TABLET PO (19:17)
[2023-08-18] MEDS: metFORMIN HCl ER 500 MG TAB.ER.24H 1000 MG PO (19:17)
[2023-08-18] MEDS: traZODone HCL 50 MG TABLET 150 MG PO (19:55)
[2023-08-18 20:14] LABS: Glucose, Whole Blood 384 mg/dL (60-115)
[2023-08-18] MEDS: guaiFENesin 100 MG/5 ML LIQUID PO (22:02)
[2023-08-18] MEDS: Melatonin 3 MG TABLET 6 MG PO (22:05)
[2023-08-19] VITALS (7 sets, daily range): BP systolic 133–141; BP diastolic 60–75; PULSE 74–85; RESP 16–22; TEMP 36.2–36.6; O2SAT 92–98
[2023-08-19] MEDS: HYDROmorphone HCl 0.5 MG/0.5 ML SYRINGE 0.25 MG IVPUSH ×4 (06:22→21:00)
[2023-08-19 06:50] LABS: VBG Base Excess 7.7 mmol/L; VBG HCO3 34 mmol/L (22-26); VBG pCO2 56 mmHg; VBG pH 7.39 (7.32-7.43); VBG pO2 33 mmHg
[2023-08-19 06:50] LABS: Hematocrit 34.6 % (37.0-47.0); Mean Corpuscular HGB Conc 31.8 g/dl (31.0-35.0); Mean Corpuscular Hemoglobin 26.3 pg (27.0-33.0); Mean Corpuscular Volume 82.6 fL (80.0-98.0); Mean Platelet Volume 9.3 fL (9.4-12.3); Platelet Count 363 X10*3/uL (160-400); Red Blood Count 4.19 X10*6/uL (4.20-5.50); Red Cell Distribution Width 13.9 % (11.0-16.0); White Blood Count 10.5 X10*3/uL (4.8-10.8)
[2023-08-19 06:51] LABS: Venous Blood Gas Refer to POC result
[2023-08-19 07:21] LABS: Glucose, Whole Blood 329 mg/dL (60-115)
[2023-08-19 07:30] LABS: Anion Gap 14 (12-20); Blood Urea Nitrogen 23 mg/dL (9-16); Calcium 9.5 mg/dL (8.4-10.2); Carbon Dioxide 31 mmol/L (22-29); Chloride 92 mmol/L (96-108); Creatinine Clr Calc Pharmacy 68.7; Estimated Glomerular Filt Rate 52; Potassium 4.6 mmol/L (3.3-5.1); Sodium 132 mmol/L (135-145)
[2023-08-19 07:37] LABS: Glucose Random 369 mg/dL (60-115)
[2023-08-19] MEDS: 0.9 % Sodium Chloride Flush 3 ML SYRINGE IVFLUSH ×3 (07:53→20:54)
[2023-08-19] MEDS: Insulin Lispro 100 UNIT/ML 3 ML VIAL SUBCUT ×4 (07:54→20:49)
[2023-08-19] MEDS: methylPREDNISolone Sod Succ 40 MG/ML VIAL IVPUSH ×2 (08:05→20:50)
[2023-08-19] MEDS: clonazePAM 1 MG TABLET PO ×2 (08:07→20:48)
[2023-08-19] MEDS: glipiZIDE 5 MG TABLET PO (08:07)
[2023-08-19] MEDS: Gabapentin 100 MG CAPSULE PO ×3 (08:07→20:48)
[2023-08-19] MEDS: OXcarbazepine 300 MG TABLET PO ×2 (08:07→20:49)
[2023-08-19] MEDS: Famotidine 20 MG TABLET PO ×2 (08:07→20:48)
[2023-08-19] MEDS: Apixaban 5 MG TABLET PO ×2 (08:07→20:48)
[2023-08-19] MEDS: metFORMIN HCl ER 500 MG TAB.ER.24H 1000 MG PO ×2 (08:08→20:48)
[2023-08-19] MEDS: Doxycycline Monohydrate 100 MG CAPSULE PO ×2 (08:08→20:49)
[2023-08-19] MEDS: Lidocaine 4 % Patch ADH..PATCH 2 PATCH TRANSDERMA (08:08)
[2023-08-19] MEDS: Fluticasone Propionate Nasal 16 GM SPRAY 1 SPRAY NOSTRIL-B (08:09)
[2023-08-19] MEDS: Insulin Glargine,Hum.rec.anlog 100 UNIT/ML 10 ML VIAL 15 UNIT SUBCUT (08:11)
--- NOTE | 2023-08-19 08:47 | MHC.CM.PN ---
EMR REVIEWED, CM RECEIVED CALL FROM JUDI Nguyễn [facility] DIRECTOR HECTOR [phone] OF PT'S [employer] [facility] [employer] [facility], HECTOR UPDATED ON PT STATUS AND CM SHOULD CALL HER WHEN READY FOR DC AND SHE WILL ARRANGE TRANSPORT, CM TO CONT TO FOLLOW.
--- NOTE | 2023-08-19 10:21 | HO.PM.IMPN ---
Subjective Subjective Date of Service: 08/19/23 Interval History: coughing all night wheezing/dyspnea improved no fever Review of Systems Review of Systems: Yes all other systems are reviewed and are negative Physical Exam Vital Signs: Vital Signs: Last Vital Signs Temp 97.8 F 08/19/23 07:40 Pulse 78 08/19/23 08:55 Resp 20 08/19/23 07:40 BP 141/71 H 08/19/23 08:55 Pulse Ox 92 08/19/23 08:55 O2 Del Method Room Air 08/19/23 07:40 O2 Flow Rate 2 08/18/23 04:01 BMI result Body Mass Index 41.2 Gen: in no acute distress HEENT: sclera anicteric, moist mucus membranes Neck: supple, tracheostomy in place Lungs: diffuse exp wheezing, prolonged expiration Heart: regular rate and rhythm, no murmurs Abd: soft, non-tender, non-distended, obese Ext: no edema, L lower leg in cast Skin: warm/well-perfused Neuro: alert and oriented x3, no focal findings Psych: appropriate affect Objective Data Active Medications Acetaminophen (Acetaminophen 325 Mg Tablet) 650 mg PO Q6H PRN PRN Reason: Pain, Mild (Pain Scale 1-3) Albuterol/Ipratropium (Albuterol/Iprat 2.5/0.5mg 3 Ml Ampul.Neb) 3 ml INHALE RQ4H WHILE AWAKE [facility] Last Admin: 08/19/23 07:47 Dose: Not Given Documented By: GRAZYNA Non-Admin Reason: Patient Refused Albuterol/Ipratropium (Albuterol/Iprat 2.5/0.5mg 3 Ml Ampul.Neb) 3 ml INHALE Q4H PRN PRN Reason: Wheezing Apixaban (Apixaban 5 Mg Tablet) 5 mg PO BID [facility] Last Admin: 08/19/23 08:07 Dose: 5 mg Documented By: RAPHAEL Atorvastatin Calcium (Atorvastatin Calcium 10 Mg Tablet) 10 mg PO BEDTIME [facility] Last Admin: 08/18/23 19:17 Dose: 10 mg Documented By: BRADY Clonazepam (Clonazepam 1 Mg Tablet) 1 mg PO BID [facility] Last Admin: 08/19/23 08:07 Dose: 1 mg Documented By: RAPHAEL Diphenhydramine HCl (Diphenhydramine Hcl 25 Mg Capsule) 25 mg PO TID PRN PRN Reason: Allergic Symptoms Doxycycline Monohydrate (Doxycycline Monohydrate 100 Mg Capsule) 100 mg PO Q12H [facility] Last Admin: 08/19/23 08:08 Dose: 100 mg Documented By: RAPHAEL Escitalopram Oxalate (Escitalopram Oxalate 20 Mg Tablet) 20 mg PO BEDTIME [facility] Last Admin: 08/18/23 19:17 Dose: 20 mg Documented By: BRADY Famotidine (Famotidine 20 Mg Tablet) 20 mg PO BID [facility] Last Admin: 08/19/23 08:07 Dose: 20 mg Documented By: RAPHAEL Fluticasone Propionate (Fluticasone Propionate Nasal 16 Gm [place]) 1 spray NOSTRIL-B DAILY [facility] Last Admin: 08/19/23 08:09 Dose: 1 spray Documented By: RAPHAEL Gabapentin (Gabapentin 100 Mg Capsule) 100 mg PO TID [facility] Last Admin: 08/19/23 08:07 Dose: 100 mg Documented By: RAPHAEL Glipizide (Glipizide 5 Mg Tablet) 5 mg PO DAILY [facility] Last Admin: 08/19/23 08:07 Dose: 5 mg Documented By: RAPHAEL Glucose (Glucose Gel 15 Gm Gel..Gram.) 15 gm PO Q15M PRN; Protocol PRN Reason: per Hypoglycemia Standing Ord. Guaifenesin (Guaifenesin 100 Mg/5 Ml Liquid) 5 ml PO Q6H PRN PRN Reason: Cough Last Admin: 08/18/23 22:02 Dose: 5 ml Documented By: BRADY Hydromorphone HCl (Hydromorphone Hcl 0.5 Mg/0.5 Ml Syringe) 0.25 mg IVPUSH Q4H PRN; Protocol PRN Reason: severe pain Last Admin: 08/19/23 06:22 Dose: 0.25 mg Documented By: BRADY Dextrose (D10) 250 mls @ 750 mls/hr IV Q15M PRN; Protocol PRN Reason: per Hypoglycemia Standing Ord. Insulin Glargine (Insulin Glargine,Hum.Rec.Anlog 100 Unit/Ml 10 Ml Vial) 15 unit SUBCUT DAILY [facility] Last Admin: 08/19/23 08:11 Dose: 15 unit Documented By: RAPHAEL Insulin Human Lispro (Insulin Lispro 100 Unit/Ml 3 Ml Vial) 0 unit SUBCUT QIDACHS [facility]; Protocol Last Admin: 08/19/23 07:54 Dose: 16 unit Documented By: KAVEH Lidocaine (Lidocaine 4 % Patch Adh..Patch) 2 patch TRANSDERMA DAILY [facility]; Protocol Last Admin: 08/19/23 08:08 Dose: 2 patch Documented By: RAPHAEL Lurasidone HCl (Lurasidone Hcl 20 Mg Tablet) 60 mg PO BEDTIME [facility] Last Admin: 08/18/23 19:17 Dose: 60 mg Documented By: BRADY Melatonin (Melatonin 3 Mg Tablet) 6 mg PO BEDTIME PRN PRN Reason: Insomnia Last Admin: 08/18/23 22:05 Dose: 6 mg Documented By: BRADY Metformin HCl (Metformin Hcl Er 500 Mg Tab.Er.24h) 1,000 mg PO BID [facility] Last Admin: 08/19/23 08:08 Dose: 1,000 mg Documented By: RAPHAEL Methylprednisolone Sodium Succinate (Methylprednisolone Sod Succ 40 Mg/Ml Vial) 40 mg IVPUSH Q12H [facility] Last Admin: 08/19/23 08:05 Dose: 40 mg Documented By: RAPHAEL Ondansetron HCl (Ondansetron Hcl 4 Mg/2 Ml Vial) 4 mg IVPUSH Q8H PRN PRN Reason: Nausea and Vomiting Oxcarbazepine (Oxcarbazepine 300 Mg Tablet) 300 mg PO BID [facility] Last Admin: 08/19/23 08:07 Dose: 300 mg Documented By: RAPHAEL Oxycodone HCl (Oxycodone Hcl Immed Release 5 Mg Tablet) 5 mg PO Q4H PRN PRN Reason: moderate pain Last Admin: 08/18/23 22:05 Dose: 5 mg Documented By: BRADY Promethazine HCl (Promethazine Hcl 25 Mg Tablet) 25 mg PO DAILY PRN PRN Reason: nausea Sodium Chloride (0.9 % Sodium Chloride Flush 3 Ml Syringe) 3 ml IVFLUSH QSHIFT [facility] Last Admin: 08/19/23 07:53 Dose: 3 ml Documented By: KAVEH Tizanidine HCl (Tizanidine Hcl 4 Mg Tablet) 4 mg PO DAILY PRN PRN Reason: muscle spasm Trazodone HCl (Trazodone Hcl 50 Mg Tablet) 150 mg PO BEDTIME PRN PRN Reason: Sleep Last Admin: 08/18/23 19:55 Dose: 150 mg Documented By: BRADY Labs 08/19/23 06:37 08/19/23 06:37 Labs: Laboratory Results - last 24 hr 08/18/23 08/18/23 08/18/23 09:25 11:00 16:08 MCV MCH MCHC RDW Plt Count MPV Absolute Nucleated RBC Nucleated RBC % (auto) VBG pH VBG pCO2 VBG pO2 VBG HCO3 VBG O2 Saturation VBG Base Excess Anion Gap Estim Creat Clear Calc Estimated GFR POC Glucose 378 H* 337 H Random Glucose Calcium Respiratory Panel [place] See Note Adenovirus (Rapid PCR) Not Detected B.pert (TEM-PCR) Not Detected B.parapertussis DNA PCR Not Detected C. pneumoniae DNA (PCR) Not Detected Coronavirus OC43 (PCR) Not Detected Coronavirus HKU1 (PCR) Not Detected Coronavirus 229E (PCR) Not Detected Coronavirus NL63 (PCR) Not Detected Human Metapneumovir PCR Not Detected Influenza A (RT-PCR) Not Detected Influenza B (RT-PCR) Not Detected M. pneumoniae (PCR) Not Detected Parainfluenza 1 (PCR) Not Detected Parainfluenza 2 (PCR) Not Detected Parainfluenza 3 (PCR) Not Detected Parainfluenza 4 (PCR) Not Detected RSV (PCR) Not Detected Entero/Rhino (PCR) Not Detected SARS-CoV-2 RNA (RT-PCR) Not Detected 08/18/23 08/19/23 08/19/23 19:39 06:37 06:42 MCV 82.6 MCH 26.3 L MCHC 31.8 RDW 13.9 Plt Count 363 MPV 9.3 L Absolute Nucleated RBC 0.000 Nucleated RBC % (auto) 0.0 VBG pH 7.39 VBG pCO2 56 VBG pO2 33 VBG HCO3 34 H VBG O2 Saturation 62.0 VBG Base Excess 7.7 Anion Gap 14 Estim Creat Clear Calc 68.7 Estimated GFR 52 POC Glucose 384 H* Random Glucose 369 H* Calcium 9.5 Respiratory Panel [place] Adenovirus (Rapid PCR) B.pert (TEM-PCR) B.parapertussis DNA PCR C. pneumoniae DNA (PCR) Coronavirus OC43 (PCR) Coronavirus HKU1 (PCR) Coronavirus 229E (PCR) Coronavirus NL63 (PCR) Human Metapneumovir PCR Influenza A (RT-PCR) Influenza B (RT-PCR) M. pneumoniae (PCR) Parainfluenza 1 (PCR) Parainfluenza 2 (PCR) Parainfluenza 3 (PCR) Parainfluenza 4 (PCR) RSV (PCR) Entero/Rhino (PCR) SARS-CoV-2 RNA (RT-PCR) 08/19/23 07:13 MCV MCH MCHC RDW Plt Count MPV Absolute Nucleated RBC Nucleated RBC % (auto) VBG pH VBG pCO2 VBG pO2 VBG HCO3 VBG O2 Saturation VBG Base Excess Anion Gap Estim Creat Clear Calc Estimated GFR POC Glucose 329 H Random Glucose Calcium Respiratory Panel [place] Adenovirus (Rapid PCR) B.pert (TEM-PCR) B.parapertussis DNA PCR C. pneumoniae DNA (PCR) Coronavirus OC43 (PCR) Coronavirus HKU1 (PCR) Coronavirus 229E (PCR) Coronavirus NL63 (PCR) Human Metapneumovir PCR Influenza A (RT-PCR) Influenza B (RT-PCR) M. pneumoniae (PCR) Parainfluenza 1 (PCR) Parainfluenza 2 (PCR) Parainfluenza 3 (PCR) Parainfluenza 4 (PCR) RSV (PCR) Entero/Rhino (PCR) SARS-CoV-2 RNA (RT-PCR) Microbiology Microbiology Results: Microbiology 08/18/23 02:36 Blood Culture - Preliminary Blood - Venous No growth after 24 hours. 08/18/23 02:36 Blood Culture - Preliminary Blood - Venous No growth after 24 hours. Assessment and Plan (1) Asthma with exacerbation: Status: Acute Assessment and Plan: d2 52yo F with chronic hypoxic resp failure due to asthma s/p tracheostomy on home oxygen, PE on Eliquis, HTN, DM2, HLD, obesity presenting with dyspnea + productive sputum for 1 wk acute/chronic hypoxic resp failure due to asthma exac - systemic IV steroids, standing/prn nebs - low PCT, RPP negative - doxycycline 08/18-08/23 - Pulm consulted DM2 with steroid-induced hyperglycemia - basal-bolus insulin; increase glargine and correction-dose lispro - continue MTF, GPZ back pain - lidocaine patch, oxycodone, IV hydromorphone; also on tizanidine + gabapentin neuropathy - gabapentin hx PE - apixaban HLD - statin morbid obesity - diet/exercise counseling bipolar disorder - oxcarbazepine, lurasidone, escitalopram, clonazepam, trazodone VTE ppx - apixaban dispo - home possibly tomorrow, no service indicated In my clinical judgment, the patient requires continued inpatient hospitalization for the following reasons: steroids, oxygen, pulm consultation Plan This is a 52-year-old female with pertinent history of essential hypertension, insulin-dependent diabetes mellitus, chronic hypoxemic respiratory failure on trach collar due to asthma, mixed hyperlipidemia, mood disorder, history of PE on Eliquis who presents to the emergency department for evaluation of dyspnea. Acute on chronic hypoxemic respiratory failure due to COVID-19 pneumonia with bacterial superinfection leading to acute exacerbation of asthma supplemental oxygen and isolation precautions. Rocephin and azithromycin Continue supplemental oxygen and wean as tolerated. systemic steroids. Scheduled and p.r.n. DuoNebs. Continue home inhaler Sepsis in the setting of above Resuscitated with IV crystalloids. Lactic acid and blood cultures negative Sputum culture 3+ gram pos rods on Rocephin and azithromycin Acute lactic acidosis due to sepsis Elevated troponin likely in the setting of increased demand Patient with pleuritic chest discomfort. Cardiology was consulted from the ER> no indication for heparin. Will trend troponin Insulin-dependent diabetes mellitus with hyperglycemia type 2 ss mealtime insulin added ada diet Hypomagnesemia Repleted History of PE On Eliquis Mixed hyperlipidemia On statin Mood disorder Continue home mood stabilizers Obesity Low-calorie diet and weight loss DVT prophylaxis: Jessica attending Dr. Cuevas Full code continued hospital stay for IV antibiotics, supplemental oxygen (as above), which is not possible in a lesser acute setting. Total time managing care of this patient today: 35 minutes. Quality Stroke Does the patient have a stroke diagnosis?: No VTE Prior VTE?: No VTE Risk Level:: Medical - moderate - high VTE Device Contraindication: Treatment Not Indicated VTE Drug Contraindication: N/A - Med Ordered
[2023-08-19 11:20] LABS: Glucose, Whole Blood 322 mg/dL (60-115)
[2023-08-19] MEDS: Albuterol/Iprat 2.5/0.5MG 3 ML AMPUL.NEB INHALE ×2 (11:35→18:48)
[2023-08-19] MEDS: guaiFENesin 100 MG/5 ML LIQUID PO (14:34)
--- NOTE | 2023-08-19 15:34 | P.CDIM_ITS ---
PROVIDER RESPONSE TEXT: To clarify, the appropriate diagnosis supported by the clinical indicators: Moderate persistent QUERY TEXT: PHYSICIAN'S DOCUMENTATION REQUEST Date of Query: 08/19/2023 07:42 AM EDT Patient Name: Anna Marie Black Admit Date: 08/18/2023 Dear Hank Broussard, A review of the medical record indicates additional documentation may be needed. Please review below and update the documentation accordingly. Clinical indicators: Progress notes within the Plan: Acute on chronic hypoxic respiratory failure due to asthma exac. Systemic IV steroids, standing/prn nebs Presents to ED with dyspnea, cough with intermittent sputum production, wheezing. Based on the above, please clarify in the Progress Notes further specificity regarding the type of as thma within the Plan: Mild intermittent Mild persistent Moderate persistent Severe persistent Exercise induced Other Other (explain) Clinically unable to determine (explain) Thank you, Carol Izaguirre, CCS, CDIS Use of terms such as suspected, likely, concern for, or probable (associated with a specific diagnosi s that is being evaluated, monitored, or treated as if it exists) are acceptable and can be coded in the inpatient se tting, when documented at the time of discharge. Please use your independent medical judgment in providing your response. THIS QUERY IS PART OF THE PERMANENT MEDICAL RECORD
[2023-08-19 16:32] LABS: Glucose, Whole Blood 302 mg/dL (60-115)
[2023-08-19 20:25] LABS: Glucose, Whole Blood 329 mg/dL (60-115)
[2023-08-19] MEDS: Escitalopram Oxalate 20 MG TABLET PO (20:49)
[2023-08-19] MEDS: Lurasidone HCl 20 MG TABLET 60 MG PO (20:49)
[2023-08-19] MEDS: Atorvastatin Calcium 10 MG TABLET PO (20:49)
[2023-08-19] MEDS: traZODone HCL 50 MG TABLET 150 MG PO (20:59)
[2023-08-19] MEDS: Melatonin 3 MG TABLET 6 MG PO (20:59)
[2023-08-20] MEDS: LORazepam 1 MG TABLET PO (00:20)
[2023-08-20 03:10] VITALS: BP 167/93; PULSE 76; RESP 17; TEMP 36.1; O2SAT 95
[2023-08-20] MEDS: HYDROmorphone HCl 0.5 MG/0.5 ML SYRINGE 0.25 MG IVPUSH ×2 (04:57→08:59)
[2023-08-20] MEDS: guaiFENesin 100 MG/5 ML LIQUID PO (04:57)
[2023-08-20 06:09] LABS: Venous Blood Gas Refer to POC result
[2023-08-20 06:13] LABS: VBG Base Excess 6.3 mmol/L; VBG HCO3 28 mmol/L (22-26); VBG pCO2 32 mmHg; VBG pH 7.55 (7.32-7.43); VBG pO2 87 mmHg
[2023-08-20 06:22] LABS: Anion Gap 20 (12-20); Blood Urea Nitrogen 29 mg/dL (9-16); Calcium 9.1 mg/dL (8.4-10.2); Carbon Dioxide 22 mmol/L (22-29); Chloride 93 mmol/L (96-108); Creatinine Clr Calc Pharmacy 68.1; Estimated Glomerular Filt Rate 51; Glucose Random 343 mg/dL (60-115); Potassium 4.9 mmol/L (3.3-5.1); Sodium 130 mmol/L (135-145)
[2023-08-20 07:15] VITALS: BP 124/64; PULSE 78; RESP 16; TEMP 36.3; O2SAT 92
[2023-08-20 07:39] LABS: Glucose, Whole Blood 286 mg/dL (60-115)
[2023-08-20] MEDS: 0.9 % Sodium Chloride Flush 3 ML SYRINGE IVFLUSH (08:06)
[2023-08-20] MEDS: methylPREDNISolone Sod Succ 40 MG/ML VIAL IVPUSH (08:06)
[2023-08-20] MEDS: Gabapentin 100 MG CAPSULE PO (08:07)
[2023-08-20] MEDS: glipiZIDE 5 MG TABLET PO (08:07)
[2023-08-20] MEDS: Apixaban 5 MG TABLET PO (08:08)
[2023-08-20] MEDS: Doxycycline Monohydrate 100 MG CAPSULE PO (08:08)
[2023-08-20] MEDS: clonazePAM 1 MG TABLET PO (08:08)
[2023-08-20] MEDS: OXcarbazepine 300 MG TABLET PO (08:08)
[2023-08-20] MEDS: metFORMIN HCl ER 500 MG TAB.ER.24H 1000 MG PO (08:09)
[2023-08-20] MEDS: Famotidine 20 MG TABLET PO (08:09)
[2023-08-20] MEDS: Insulin Lispro 100 UNIT/ML 3 ML VIAL SUBCUT ×2 (08:10→11:42)
[2023-08-20] MEDS: Insulin Glargine,Hum.rec.anlog 100 UNIT/ML 10 ML VIAL 15 UNIT SUBCUT (08:10)
[2023-08-20] MEDS: Fluticasone Propionate Nasal 16 GM SPRAY 1 SPRAY NOSTRIL-B (09:19)
[2023-08-20] MEDS: Lidocaine 4 % Patch ADH..PATCH 2 PATCH TRANSDERMA (09:19)
[2023-08-20 11:28] LABS: Glucose, Whole Blood 315 mg/dL (60-115)
--- NOTE | 2023-08-20 12:02 | PM.DS ---
DS: Providers Provider Date of Service: 08/20/23 Date of admission: 08/18/23 03:46 Date of discharge: 08/20/23 Primary care physician: Megan Cummings MD Consults: 08/18/23 07:53 Consult to Pulmonology Routine Consulting Provider: [facility] Reason for consultation: trachoestomy, asthma exac DS: Diagnosis Discharge Diagnosis (1) Tracheostomy dependent: Status: Acute (2) Acute and chronic respiratory failure with hypoxia: Status: Acute (3) Moderate persistent asthma with exacerbation: Status: Acute (4) Morbid obesity: Status: Acute (5) Bimalleolar fracture of left ankle: Status: Acute DS: Summary Hospital Course Hospital Course: From the history and physical by the admitting hospitalist, Dee Lira MD, 08/18/23: This is a 52-year-old female with pertinent history of chronic hypoxemic respiratory failure on trach collar due to asthma, hypertension, insulin-dependent diabetes mellitus, mixed hyperlipidemia, mood disorder, history of PE on Eliquis who presents to the emergency department for evaluation of dyspnea. Patient states symptoms started 1 week prior to presentation. She has been having cough with intermittent sputum production. Also has been having wheezing and dyspnea. Symptoms have progressed over the last 1 week. No fever or chills. She uses 2 L supplemental oxygen at baseline as needed. No chest discomfort, palpitations, abdominal pain, changes in urinary or bowel habits. No symptoms of choking or coughing with food. In the emergency department, patient requiring supplemental oxygen and wheezing despite multiple DuoNeb treatments. 52yo F with chronic hypoxic resp failure due to asthma s/p tracheostomy on home oxygen, PE on Eliquis, HTN, DM2, HLD, obesity, and recent left bimalleolar ankle fracture in a cast. She presented with dyspnea + productive sputum for 1 wk and was admitted to the medical-surgical floor for acute/chronic hypoxic respiratory failure due to asthma exacerbation. Respiratory pathogen PCR panel was negative. Pulmonology was consulted. She was treated with IV steroids and nebulized bronchodilators as well as doxycycline with clinical improvement. She improved and was discharged on prednisone and doxycycline. She should follow up with Primary Care in 1 week and her jack winder at [facility] [place] 2-3 weeks. Time Attestation Discharge Coordination Time (in mins): 40 Quality: Safe Use of Opioids Does Pt have an Active Cancer Diagnosis on the Problem List?: No Quality: Stroke Does the patient have a stroke diagnosis?: No Physical Exam Vital Signs: Vital Signs: Last Vital Signs Temp 97.3 F 08/20/23 07:15 Pulse 78 08/20/23 07:15 Resp 16 08/20/23 07:15 BP 124/64 08/20/23 07:15 Pulse Ox 92 08/20/23 07:15 O2 Del Method Room Air 08/20/23 07:15 O2 Flow Rate 5 08/20/23 03:10 FiO2 28 08/20/23 04:23 Oxygen Flow Rate 5 08/20/23 04:23 BMI result Body Mass Index 41.2 Gen: in no acute distress HEENT: sclera anicteric, moist mucus membranes Neck: supple, tracheostomy in place Lungs: no wheezing or crackles Heart: regular rate and rhythm, no murmurs Abd: soft, non-tender, non-distended, obese Ext: no edema, L lower leg in cast Skin: warm/well-perfused Neuro: alert and oriented x3, no focal findings Psych: appropriate affect DS: Data Data Completed and Pending Completed studies during hospitalization [Text1]: Laboratory Results WBC 10.5 X10*3/uL (4.8-10.8) 08/19/23 06:37 RBC 4.19 X10*6/uL (4.20-5.50) L 08/19/23 06:37 Hgb 11.0 g/dl (12.0-16.0) L 08/19/23 06:37 Hct 34.6 % (37.0-47.0) L 08/19/23 06:37 MCV 82.6 fL (80.0-98.0) 08/19/23 06:37 MCH 26.3 pg (27.0-33.0) L 08/19/23 06:37 MCHC 31.8 g/dl (31.0-35.0) 08/19/23 06:37 RDW 13.9 % (11.0-16.0) 08/19/23 06:37 Plt Count 363 X10*3/uL (160-400) 08/19/23 06:37 MPV 9.3 fL (9.4-12.3) L 08/19/23 06:37 Immature Gran % (Auto) 0.6 % (0.0-0.4) H 08/18/23 04:47 Neut % (Auto) 82.5 % (45-73) H 08/18/23 04:47 Lymph % (Auto) 8.8 % (20-40) L 08/18/23 04:47 Perry % (Auto) 2.9 % (2-11) 08/18/23 04:47 Eos % (Auto) 4.8 % (0-4) H 08/18/23 04:47 Baso % (Auto) 0.4 % (0-2) 08/18/23 04:47 Lymph # (Auto) 0.9 X10*3/uL (1.2-4.9) L 08/18/23 04:47 Perry # (Auto) 0.3 X10*3/uL (0.1-1.2) 08/18/23 04:47 Eos # (Auto) 0.5 X10*3/uL (0.0-0.4) H 08/18/23 04:47 Baso # (Auto) 0.0 X10*3/uL (0.0-0.2) 08/18/23 04:47 Abs Immat Gran (auto) 0.06 X10*3/uL (0.00-0.03) H 08/18/23 04:47 Absolute Neuts (auto) 8.4 x10*3/uL (2.0-8.3) H 08/18/23 04:47 Absolute Nucleated RBC 0.000 X10*3/uL (0.0-0.012) 08/19/23 06:37 Nucleated RBC % (auto) 0.0 /100WBC (0.0-0.2) 08/19/23 06:37 Smear Tech's Comments VERIFIED 08/18/23 04:47 VBG pH 7.55 (7.32-7.43) H 08/20/23 06:05 VBG pCO2 32 mmHg 08/20/23 06:05 VBG pO2 87 mmHg 08/20/23 06:05 VBG HCO3 28 mmol/L (22-26) H 08/20/23 06:05 VBG O2 Saturation 98.0 % 08/20/23 06:05 VBG Base Excess 6.3 mmol/L 08/20/23 06:05 Sodium 130 mmol/L (135-145) L 08/20/23 06:02 Potassium 4.9 mmol/L (3.3-5.1) 08/20/23 06:02 Chloride 93 mmol/L (96-108) L 08/20/23 06:02 Carbon Dioxide 22 mmol/L (22-29) 08/20/23 06:02 Anion Gap 20 (12-20) 08/20/23 06:02 BUN 29 mg/dL (9-16) H 08/20/23 06:02 Creatinine 1.11 mg/dL (0.5-1.4) 08/20/23 06:02 Estim Creat Clear Calc 68.1 08/20/23 06:02 Estimated GFR 51 08/20/23 06:02 POC Glucose 315 mg/dL (60-115) H 08/20/23 11:10 Random Glucose 343 mg/dL (60-115) H 08/20/23 06:02 Lactic Acid 1.5 mmol/L (0.5-2.0) 08/18/23 02:36 Calcium 9.1 mg/dL (8.4-10.2) 08/20/23 06:02 Troponin I High Sens < 2.7 ng/L (<3.5-17.0) 08/18/23 00:56 Procalcitonin 0.02 ng/mL 08/18/23 04:47 Respiratory Panel [place] See Note 08/18/23 09:25 Adenovirus (Rapid PCR) Not Detected (Not Detect.) 08/18/23 09:25 B.pert (TEM-PCR) Not Detected (Not Detect.) 08/18/23 09:25 B.parapertussis DNA PCR Not Detected (Not Detect.) 08/18/23 09:25 C. pneumoniae DNA (PCR) Not Detected (Not Detect.) 08/18/23 09:25 Coronavirus OC43 (PCR) Not Detected (Not Detect.) 08/18/23 09:25 Coronavirus HKU1 (PCR) Not Detected (Not Detect.) 08/18/23 09:25 Coronavirus 229E (PCR) Not Detected (Not Detect.) 08/18/23 09:25 COVID-19 (PRETTY) Negative (Negative) 08/18/23 01:00 COVID-19 Clin Com See Note 08/18/23 01:00 Coronavirus NL63 (PCR) Not Detected (Not Detect.) 08/18/23 09:25 Human Metapneumovir PCR Not Detected (Not Detect.) 08/18/23 09:25 Influenza Type A (JOSE) Negative (Negative) 08/18/23 01:00 Influenza A (RT-PCR) Not Detected (Not Detect.) 08/18/23 09:25 Influenza Type B (JOSE) Negative (Negative) 08/18/23 01:00 Influenza B (RT-PCR) Not Detected (Not Detect.) 08/18/23 09:25 Influenza A & B Note See Note 08/18/23 01:00 M. pneumoniae (PCR) Not Detected (Not Detect.) 08/18/23 09:25 Parainfluenza 1 (PCR) Not Detected (Not Detect.) 08/18/23 09:25 Parainfluenza 2 (PCR) Not Detected (Not Detect.) 08/18/23 09:25 Parainfluenza 3 (PCR) Not Detected (Not Detect.) 08/18/23 09:25 Parainfluenza 4 (PCR) Not Detected (Not Detect.) 08/18/23 09:25 RSV (PCR) Not Detected (Not Detect.) 08/18/23 09:25 Entero/Rhino (PCR) Not Detected (Not Detect.) 08/18/23 09:25 SARS-CoV-2 RNA (RT-PCR) Not Detected (Not Detect.) 08/18/23 09:25 Impressions Chest X-Ray 08/18/23 01:07 IMPRESSION: No focal consolidation. Mildly coarsened appearance of the interstitium may reflect airways disease. Discharge Plan Discharge Anticipated Discharge Date/Time: 08/20/23 11:54 Patient Disposition: Home, Self-Care Discharge Diagnosis: acute asthma exacerbation, tracheostomy Referrals: Megan Mosqueda MD [Primary Care Provider] - 1 Week Discharge Medications: New doxycycline monohydrate 100 mg Capsule 100 mg PO Q12H Qty: 8 0RF prednisone 20 mg tablet 40 mg PO DAILY Qty: 8 0RF dextromethorphan-guaifenesin 5-100 mg/5 mL liquid 10 ml PO Q4-8H PRN (Reason: cough) Qty: 120 0RF Continued insulin glargine [Lantus Solostar U-100 Insulin] 100 unit/mL (3 mL) insulin pen 10 unit subcut DAILY codeine-guaifenesin 10-100 mg/5 mL liquid 10 ml PO Q8H PRN (Reason: cough) diphenhydramine HCl [Benadryl] 25 mg Capsule 25 mg PO TID PRN (Reason: Allergic Symptoms) atorvastatin 10 mg tablet 10 mg PO BEDTIME tizanidine 4 mg tablet 4 mg PO DAILY PRN (Reason: muscle spasm) clonazepam 1 mg tablet 1 mg PO BID oxcarbazepine 300 mg tablet 300 mg PO BID famotidine 20 mg tablet 20 mg PO BID trazodone 150 mg tablet 150 mg PO BEDTIME PRN (Reason: Sleep) promethazine 25 mg tablet 25 mg PO DAILY PRN (Reason: nausea) gabapentin 100 mg capsule 100 mg PO TID albuterol sulfate [Ventolin HFA] 90 mcg/actuation HFA aerosol inhaler 2 puff inhalation Q4H PRN (Reason: wheezing) fluticasone propionate 50 mcg/actuation spray,suspension 1 spray intranasal DAILY Rx Instructions: INHALE IN BOTH NOSTRILS metformin 500 mg tablet extended release 24 hr 1,000 mg PO BID glipizide 5 mg tablet 5 mg PO DAILY insulin lispro 100 unit/mL insulin pen 1 sliding scale dose subcut TIDAC escitalopram oxalate 20 mg tablet 20 mg PO BEDTIME Eliquis 5 mg tablet 5 mg PO BID lurasidone 60 mg tablet 60 mg PO BEDTIME Discharge Orders: Discharge Order (Routine); Ordered 08/20/23 Ordered By: Hank Broussard Diet: Advance to usual diet Activity on Discharge: As tolerated Stand Alone Forms: Patient Portal Discharge page Print Language: Maltese Care Plan Goals: respiratory health Health Concerns: acute asthma exacerbation, tracheostomy Plan of Treatment: prednisone 40 mg daily x 4 days doxycycline 100 mg twice daily x 4 days cough syrup as needed Please follow up with your primary care doctor within 1 week. Return to the hospital if you experience recurrent or worsening symptoms. See your [facility] [place] jack winder in 2-3 weeks Assessment: See Discharge Summary.
--- NOTE | 2023-08-20 12:11 | MHC.CM.PN ---
Patient medically cleared for dc home w/ resump of [employer] through [facility]. for mainframe programmer Silvia to inform of dc. Patient will take Lyft home. /HCP aware.
== END 2023-08-20 12:22 | disposition home or self-care (01) | DRG 141 ==
LOC: HO.ED 03:37 → HO.EDOVER 03:58 → HO.S3 07:29
PROVIDERS: Admitting Provider Student in an Organized Health Care Education/Training Program; Emergency Provider Emergency Medicine Emergency Medical Services; PCP Internal Medicine; Visit Provider Family Medicine
DX: J45.41 Moderate persistent asthma with (acute) exacerbation (principal); J96.21 Acute and chronic respiratory failure with hypoxia; E11.40 Type 2 diabetes mellitus with diabetic neuropathy, unspecified; Z99.81 Dependence on supplemental oxygen; Z93.0 Tracheostomy status; E78.5 Hyperlipidemia, unspecified; E11.65 Type 2 diabetes mellitus with hyperglycemia; F31.9 Bipolar disorder, unspecified; E66.01 Morbid (severe) obesity due to excess calories; Z68.41 Body mass index [BMI] 40.0-44.9, adult; Z20.822 Contact with and (suspected) exposure to COVID-19; Z86.711 Personal history of pulmonary embolism; Z79.4 Long term (current) use of insulin; Z79.01 Long term (current) use of anticoagulants; Z79.51 Long term (current) use of inhaled steroids; Z79.84 Long term (current) use of oral hypoglycemic drugs; Z79.899 Other long term (current) drug therapy
CPT/HCPCS: 36415; 71045; 80048; 82803; 82947; 83605; 84145; 84484; 85025; 85027; 87040; 87502; 87633; 87635; 93005; 94640; 97162; 99221; 99285; J0456; J0696; J1170; J2919

== ENCOUNTER → 2023-08-18 00:50 | Outpatient (BNV) | payer OTHER, SELFPAY | PROVIDERS: Admitting Provider Student in an Organized Health Care Education/Training Program; Emergency Provider Emergency Medicine Emergency Medical Services; PCP Internal Medicine; Visit Provider Internal Medicine Cardiovascular Disease | DX: R06.02 Shortness of breath (principal); R94.31 Abnormal electrocardiogram [ECG] [EKG] | CPT/HCPCS: 93010 ==

== ENCOUNTER → 2023-08-18 03:46 | Outpatient (BNV) | payer OTHER, SELFPAY | PROVIDERS: Admitting Provider Student in an Organized Health Care Education/Training Program; Emergency Provider Emergency Medicine Emergency Medical Services; PCP Internal Medicine; Visit Provider Hospitalist | DX: J45.901 Unspecified asthma with (acute) exacerbation (principal); Z93.0 Tracheostomy status | CPT/HCPCS: 99223 ==

== ENCOUNTER → 2023-08-18 03:46 | Outpatient (BNV) | payer OTHER, SELFPAY | PROVIDERS: Admitting Provider Student in an Organized Health Care Education/Training Program; Emergency Provider Emergency Medicine Emergency Medical Services; PCP Internal Medicine; Visit Provider Student in an Organized Health Care Education/Training Program | DX: J45.901 Unspecified asthma with (acute) exacerbation (principal); J96.21 Acute and chronic respiratory failure with hypoxia | CPT/HCPCS: 99222; 99232; 99239; 99499 ==

== ENCOUNTER 2023-08-26 12:46 | Outpatient (AMB) | payer OTHER, SELFPAY ==
--- NOTE | 2023-08-26 12:51 | A.OFFVIS_ITS ---
Intake Visit Reasons: OV-LT ankle pain-w/xray-cast change Intake Note: Anna Marie is a 52 year old female who presents to the office today for a cast change. Allergies pantoprazole Allergy (Mild, Verified 08/26/23 12:52) Redness of Skin HPI HPI OV-LT ankle pain-w/xray-cast change: Details: 52-year-old female who presents in the office today for a cast change. The patient is currently being treated for a left ankle bimalleolar fracture, which occurred on 06/14/2023 status post attempting to get into bed when she tripped and fell. [facility] Medical History (Updated 08/20/23 @ 12:03 by Hank Broussard MD) Tracheostomy dependent History of cardiac arrest Wound drainage Takotsubo cardiomyopathy Kidney stones UTI (urinary tract infection) Bipolar 1 disorder Diabetes Asthma Substance abuse Surgical History S/P ureteral stent placement H/O exploratory laparotomy S/P cholecystectomy Family History Mother No pertinent family history Father No pertinent family history Social History Household Members: Spouse Household Members Other:: 1 Housing: Apartment Do you presently have visiting nurse or other home services: No Alcohol intake: former Comment: stayed in ed Patient Tobacco Use Status: Never used Tobacco Second Hand Smoke Exposure: Yes Advance Directives Date on File: 02/04/23 service: No Current occupational status: disabled Review of Systems Const All systems reviewed & are unremarkable except as noted in HPI and below Physical Exam Const General: cooperative, healthy appearing and no acute distress Resp Effort & Inspection: normal respiratory effort and able to speak in complete sentences Cardio Rate: regular rate Peripheral pulses: Peripheral pulses 2+ throughout GI Palpation (GI): Soft to palpation Skin Lesions: no lesions Rashes: no rashes Extrem Other: Left ankle: Moderate circumferential edema. Tenderness to palpation over the medial and lateral malleolus. Superficial skin abrasion along the anterior medial aspect of the ankle. No surrounding erythema or drainage. No signs of infection. Slight able to dorsiflex and plantarflex but is limited due to pain. She has a baseline decrease in ROM. She has baseline numbness and tingling form neuropathy. Pedal pulse intact. Office Procedures Casting/Splints [id number] Leg Cast Application Procedure code (CPT) selection complete Assessment & Plan Assessment & Plan (1) Bimalleolar fracture of left ankle: Code(s): S82.842A - Displaced bimalleolar fracture of left lower leg, initial encounter for closed fracture Category: Medical Qualifiers: Encounter type: initial encounter Fracture type: closed Qualified Code(s): S82.842A - Displaced bimalleolar fracture of left lower leg, initial encounter for closed fracture (2) Diabetes: Code(s): E11.9 - Type 2 diabetes mellitus without complications Category: Medical (3) History of cardiac arrest: Code(s): Z86.74 - Personal history of sudden cardiac arrest Category: Medical (4) History of substance abuse: Code(s): F19.11 - Other psychoactive substance abuse, in remission Category: Medical (5) History of tracheostomy: Code(s): Z98.890 - Other specified postprocedural states Category: Surgical Plan Ms. Black is a 52-year-old female who presents in the office today for a cast change. The patient is currently being treated for a left ankle bimalleolar fracture, which occurred on 06/14/2023 status post attempting to get into bed when she tripped and fell. The patient was placed in a new custom-made cast while in the office today. She was re-educated on cast maintenance with instructions to keep the cast clean, dry, and intact. However, should the cast become wet, dirty, or there is a concern please call the office immediately for a cast change. Follow-up will be at her regularly scheduled appointment on 09/08/2023, or sooner if needed. Patient Instructions: Scribed by Meli Singh medical laboratory specialist, for Portia Elizabeth PA-C on 08/26/2023 at 1:03 pm, EST. Coding Level of Care Code Global (02993) Diagnoses Closed bimalleolar fracture of left ankle, initial encounter S82.842A Encounter type: initial encounter Fracture type: closed Diabetes E11.9 History of cardiac arrest Z86.74 History of substance abuse F19.11 History of tracheostomy Z98.890 CPT Codes Casting - CPT: 25144-[id number] Leg Cast Application ([id number])
== END 2023-08-26 13:41 | disposition home or self-care (01) ==
LOC: HO.HOS 12:46
PROVIDERS: PCP Internal Medicine; Visit Provider Physician Assistant
DX: S82.842A Displaced bimalleolar fracture of left lower leg, initial encounter for closed fracture (principal)
CPT/HCPCS: 29405; 99024

== ENCOUNTER → 2023-08-26 12:46 | Outpatient (BNVA) | payer OTHER, SELFPAY | PROVIDERS: PCP Internal Medicine; Visit Provider Physician Assistant | DX: S82.842D Displaced bimalleolar fracture of left lower leg, subsequent encounter for closed fracture with routine healing (principal); E11.9 Type 2 diabetes mellitus without complications; F19.11 Other psychoactive substance abuse, in remission; Z86.74 Personal history of sudden cardiac arrest | CPT/HCPCS: 29405; 99212 ==

== ENCOUNTER 2023-09-01 21:23 | Inpatient (IN) | payer OTHER, SELFPAY ==
--- NOTE | ~2023-09-01 | XR_ITS ---
EXAMINATION: XR CHEST CLINICAL INFORMATION: Cough and shortness of breath. COMPARISON: Chest radiograph 08/18/2023. TECHNIQUE: Frontal view of the chest was obtained. FINDINGS: Midline tracheostomy. Stable prominence of the cardiomediastinal silhouette. Similar degree of diffuse interstitial thickening. No focal consolidation. No pleural effusion or pneumothorax. No acute osseous findings. XR/XR chest 1V IMPRESSION: 1. Similar degree of diffuse interstitial thickening. 2. No focal consolidation. 3. No pleural effusion or pneumothorax.
[2023-09-01 21:25] VITALS: BP 147/85; BP 150/87; PULSE 113; PULSE 116; RESP 22; O2SAT 84; O2SAT 91; BMI 34.8
[2023-09-01 21:33] LABS: Glucose, Whole Blood 537 mg/dL (60-115)
--- NOTE | 2023-09-01 21:35 | ED_ITS ---
HPI - SOB/Dyspnea General Chief Complaint: Dyspnea Stated Complaint: NO RELIEF FROM INHALER, 85 RA NOW ON NEB, BGL HI Time Seen by Provider: 09/01/23 21:24 Source: patient and EMS Mode of arrival: EMS Limitations: no limitations History of Present Illness ED Provider: Dr. Henry Chandra HPI Narrative: 52-year-old female with pertinent history of chronic hypoxemic respiratory failure on trach collar due to asthma, hypertension, insulin-dependent diabetes mellitus, mixed hyperlipidemia, mood disorder, history of PE on Eliquis who presents emergency department for evaluation of shortness of breath, occasional productive cough, fatigue, weakness times 2-3 days. The patient was recently hospitalized from 08/18/2023 until 08/20/2023 with diagnosis of acute on chronic respiratory failure with hypoxia, moderate persistent asthma with exacerbation. Patient had a respiratory panel which was negative. She was treated with IV steroids and nebulizer bronchodilators. She also was treated with doxycycline she was discharged on prednisone and doxycycline. She states that when she was discharged from the hospital she still was feeling short of breath but had improved significantly. She completed her course of prednisone and doxycycline. She denied fever but did have chills. She states she has a cough which is occasionally productive. She does have posterior chest pain. She states the pain is worse with breathing. She has had similar pain in the past. She had nausea with no vomiting or diarrhea. She denied dark stools or bloody stools. I did receive report from the paramedics. They state that the patient had diffuse rales and rhonchi. They did note O2 saturations of 84-85% on the patient's home oxygen. She was placed on 6 L via nasal cannula with improvement of her O2 saturation to 92%. She also received a DuoNeb EN route with no other medications administered. The patient does wear 2-4 L of oxygen via nasal cannula chronically at home. Related Data Home Medications ?Medication ?Instructions ?Recorded ?Confirmed albuterol sulfate 90 mcg/actuation 2 puff inhalation Q4H PRN wheezing 02/02/23 08/18/23 aerosol inhaler (Ventolin HFA) apixaban 5 mg tablet (Eliquis) 5 mg PO BID 02/02/23 08/18/23 atorvastatin 10 mg tablet 10 mg PO BEDTIME 02/02/23 08/18/23 clonazepam 1 mg tablet 1 mg PO BID Anxiety 02/02/23 08/18/23 escitalopram oxalate 20 mg tablet 20 mg PO BEDTIME 02/02/23 08/18/23 famotidine 20 mg tablet 20 mg PO BID 02/02/23 08/18/23 fluticasone propionate 50 1 spray intranasal DAILY allergies 02/02/23 08/18/23 mcg/actuation nasal spray,suspension gabapentin 100 mg capsule 100 mg PO TID 02/02/23 08/18/23 glipizide 5 mg tablet 5 mg PO DAILY 02/02/23 08/18/23 insulin lispro 100 unit/mL 1 sliding scale dose subcut TIDAC 02/02/23 08/18/23 subcutaneous pen lurasidone 60 mg tablet 60 mg PO BEDTIME 02/02/23 08/18/23 metformin 500 mg tablet,extended 1,000 mg PO BID 02/02/23 08/18/23 release 24 hr oxcarbazepine 300 mg tablet 300 mg PO BID 02/02/23 08/18/23 promethazine 25 mg tablet 25 mg PO DAILY PRN nausea 02/02/23 08/18/23 tizanidine 4 mg tablet 4 mg PO DAILY PRN muscle spasm 02/02/23 08/18/23 trazodone 150 mg tablet 150 mg PO BEDTIME PRN Sleep 02/02/23 08/18/23 insulin glargine 100 unit/mL (3 10 unit subcut DAILY 06/15/23 08/18/23 mL) subcutaneous pen (Lantus Solostar U-100 Insulin) codeine 10 mg-guaifenesin 100 mg/5 10 ml PO Q8H PRN cough 08/18/23 08/18/23 mL oral liquid diphenhydramine HCl 25 mg capsule 25 mg PO TID PRN Allergic Symptoms 08/18/23 08/18/23 (Benadryl) Previous Rx's ?Medication ?Instructions ?Recorded dextromethorphan-guaifenesin 5 10 ml PO Q4-8H PRN cough #120 mL 08/20/23 mg-100 mg/5 mL oral liquid prednisone 20 mg tablet 40 mg (2 x 20 mg) PO DAILY #8 tabs 08/20/23 Allergies Allergy/AdvReac Type Severity Reaction Status Date / Time pantoprazole Allergy Mild Redness of Verified 09/01/23 21:30 Skin Review of Systems 2 Review of Systems: Yes all other systems are reviewed and are negative [facility] Past Medical History Medical History (Updated 09/01/23 @ 22:57 by Henry Chandra MD) Tracheostomy dependent History of cardiac arrest Wound drainage Takotsubo cardiomyopathy Kidney stones UTI (urinary tract infection) Bipolar 1 disorder Diabetes Asthma Substance abuse Surgical History (System 08/31/23 @ 15:03 by Alona Farah) S/P ureteral stent placement H/O exploratory laparotomy S/P cholecystectomy Family History Family History Mother No pertinent family history Father No pertinent family history Social History Social History (System 08/31/23 @ 15:03 by Alona Farah) Household Members: Spouse Household Members Other:: 1 Housing: Apartment Do you presently have visiting nurse or other home services: No Alcohol intake: former Comment: stayed in ed Patient Tobacco Use Status: Never used Tobacco Smoked in Last 30 Days: No Second Hand Smoke Exposure: Yes Use of substances other than those prescribed or required for medical reasons: No Advance Directives: Yes Advance Directives on File: Yes Advance Directives Date on File: 02/04/23 service: No Current occupational status: disabled Physical Exam 2 Vital Signs: Vital Signs: Last Vital Signs Pulse 113 H 09/01/23 22:23 Resp 20 09/01/23 22:23 BP 114/66 09/01/23 22:23 Pulse Ox 90 L 09/01/23 22:23 O2 Del Method Nasal Cannula 09/01/23 22:23 O2 Flow Rate 4 09/01/23 22:23 Oxygen Flow Rate 4 09/01/23 21:25 BMI result Body Mass Index 34.8 Vital signs revealed an elevated respiratory of 22 and an elevated blood pressure of 150/71. Patient's O2 saturation was 91% on 6 L of oxygen via nasal cannula Exam: General: Awake, dyspnea, in moderate respiratory distress able to talk in full sentences Head: Normocephalic, atraumatic EENT: PERRL, Lids normal, sclera normal, conjunctiva normal, nose normal , ears normal, throat without erythema or exudates Neck: Supple, no adenopathy Lung: Rhonchi with no wheezing or rales, breath sounds are symmetric bilaterally Chest: symmetric movement, nontender Heart: regular rate and rhythm, normal S1, S2 no murmurs or rubs Abdomen: soft, non-tender, nondistended, normal bowel sounds Back: no vertebral tenderness, no CVAT Extremities: Left lower extremity in short-leg cast, patient's toes appear to be normal with normal cap refill Neuro: Awake, alert, oriented, normal speech, cranial nerves intact, moves all extremities symmetrically Psych: Pleasant, cooperative Medications Administered Discontinued Medications Generic Name Dose Route Start Last Admin Trade Name Kerwinq PRN Reason Stop Dose Admin Albuterol/Ipratropium 3 ml 09/01/23 21:54 09/01/23 22:05 Albuterol/Iprat 2.5/0.5mg 3 Ml Ampul.Neb INHALE 09/01/23 21:55 3 ml ONCE ONE Administration Hydromorphone HCl 1 mg 09/01/23 21:35 09/01/23 22:23 Hydromorphone Hcl 1 Mg/Ml Syringe IVPUSH 09/01/23 21:36 1 mg ONCE STA Administration Protocol Sodium Chloride 1,000 mls @ 999 mls/hr 09/01/23 22:53 09/01/23 23:16 Ns IV 09/01/23 23:53 999 mls/hr .Q1H1M STA Administration Methylprednisolone Sodium Succinate 125 mg 09/01/23 21:35 09/01/23 22:23 Methylprednisolone Sod Succ 125 Mg/2 Ml Vial IVPUSH 09/01/23 21:36 125 mg ONCE ONE Administration Medical Decision Making Medical Decision Making MDM Narrative: 52-year-old female with pertinent history of chronic hypoxemic respiratory failure on trach collar due to asthma, hypertension, insulin-dependent diabetes mellitus, mixed hyperlipidemia, mood disorder, history of PE on Eliquis who presents emergency department for evaluation of shortness of breath, occasional productive cough, fatigue, weakness times 2-3 days. The patient was recently hospitalized from 08/18/2023 until 08/20/2023 with diagnosis of acute on chronic respiratory failure with hypoxia, moderate persistent asthma with exacerbation. Patient had a respiratory panel which was negative. She was treated with IV steroids and nebulizer bronchodilators. She also was treated with doxycycline she was discharged on prednisone and doxycycline. Patient states that she had some improvement when she was discharged but over the last 2-3 days she developed occasionally productive cough with increased shortness of breath not relieved by her home treatment. She also developed posterior chest pain which she has had in the past. Paramedics report that the patient was hypoxic on her home oxygen with O2 saturations ranging from 84-87%. The patient was placed on 6 L of oxygen via nasal cannula and given a DuoNeb EN route to the hospital. On presentation she was evaluated by respiratory therapist since she was placed on a oxygen trach cuff at 40% moisturized air and given a DuoNeb. Differential diagnosis: ?Includes but is not limited to pneumonia, bronchitis, asthma exacerbation, viral infection, anemia, electrolyte abnormalities Following evaluation was ordered: CBC, CMP, lactic acid, lipase, magnesium, PTT, COVID-19, influenza, RSV, troponin, VBG, blood cultures x2, chest x-ray one view Patient was initially treated with the following:IV insert, party director, O2 saturation monitor, oxygen 40% via trach cuff, Solu-Medrol 125 mg IV Course: 22:07 Point of care glucose was 537 therefore the patient was ordered to get normal saline IV x1 L and regular insulin 10 units IV. 22:54 My interpretation patient's laboratory evaluation is as follows: CBC was normal. CMP revealed an elevated CO2 of 32, elevated glucose 618, elevated ALT 45 and elevated alk-phos of 228. Troponin was below detectable limits. Lactic acid was normal 1.8. Lipase was normal at 9. Venous blood gas revealed an elevated pH of 7.47, CO2 of 49 and a bicarb of 36-the patient is not appear to be retaining significant amount of CO2 at this time Patient was feeling better after the above treatment. Chest x-ray does not reveal clear evidence for pneumonia/consolidation. Patient's presentation is more consistent with an asthma exacerbation. I will discuss admission with the covering hospitalist Admission/Observation Consideration of admission/observation: Escalation of care including admission/observation considered Consult Healthcare Provider Management of the patient was discussed with: Hospitalist Lab Data [facility] Lab Attestation statement: I reviewed the patient's lab results. 09/01/23 22:10 09/01/23 22:10 Labs: Lab Results 09/01/23 09/01/23 09/01/23 Range/Units 21:29 22:10 22:14 WBC 10.2 (4.8-10.8) X10*3/uL RBC 4.77 (4.20-5.50) X10*6/uL Hgb 12.6 (12.0-16.0) g/dl Hct 38.7 (37.0-47.0) % MCV 81.1 (80.0-98.0) fL MCH 26.4 L (27.0-33.0) pg MCHC 32.6 (31.0-35.0) g/dl RDW 13.8 (11.0-16.0) % Plt Count 308 (160-400) X10*3/uL MPV 9.6 (9.4-12.3) fL Immature Gran % (Auto) 0.4 (0.0-0.4) % Neut % (Auto) 77.1 H (45-73) % Lymph % (Auto) 13.4 L (20-40) % Traill % (Auto) 4.7 (2-11) % Eos % (Auto) 4.1 H (0-4) % Baso % (Auto) 0.3 (0-2) % Lymph # (Auto) 1.4 (1.2-4.9) X10*3/uL [place] # (Auto) 0.5 (0.1-1.2) X10*3/uL Eos # (Auto) 0.4 (0.0-0.4) X10*3/uL Baso # (Auto) 0.0 (0.0-0.2) X10*3/uL Abs Immat Gran (auto) 0.04 H (0.00-0.03) X10*3/uL Absolute Neuts (auto) 7.8 (2.0-8.3) x10*3/uL Absolute Nucleated RBC 0.000 (0.0-0.012) X10*3/uL Nucleated RBC % (auto) 0.0 (0.0-0.2) /100WBC APTT 24.1 L (26.0-36.8) SEC VBG pH 7.47 H (7.32-7.43) VBG pCO2 49 mmHg VBG pO2 80 mmHg VBG HCO3 36 H (22-26) mmol/L VBG O2 Saturation 96.0 % VBG Base Excess 11.5 mmol/L Sodium 133 L (135-145) mmol/L Potassium 4.8 (3.3-5.1) mmol/L Chloride 90 L (96-108) mmol/L Carbon Dioxide 32 H (22-29) mmol/L Anion Gap 16 (12-20) BUN 15 (9-16) mg/dL Creatinine 1.31 (0.5-1.4) mg/dL Estim Creat Clear Calc 62.6 Estimated GFR 42 POC Glucose 537 H* (60-115) mg/dL Random Glucose 618 H* (60-115) mg/dL Lactic Acid 1.8 (0.5-2.0) mmol/L Calcium 9.6 (8.4-10.2) mg/dL Magnesium 1.7 (1.6-2.6) mg/dL Total Bilirubin 0.6 (0.0-1.0) mg/dL AST 28 (5-31) U/L ALT 45 H (0-31) U/L Alkaline Phosphatase 228 H (39-117) U/L Troponin I High Sens < 2.7 (<3.5-17.0) ng/L Total Protein 7.0 (6.5-8.0) g/dL Albumin 3.6 (3.5-5.0) g/dL Lipase 9 (8-78) U/L Influenza Type A (PCR) (Negative) Influenza Type B (PCR) (Negative) RSV RNA Qual (PCR) (Negative) SARS-CoV-2 RNA (RT-PCR) (Negative) 09/01/23 Range/Units 22:40 WBC (4.8-10.8) X10*3/uL RBC (4.20-5.50) X10*6/uL Hgb (12.0-16.0) g/dl Hct (37.0-47.0) % MCV (80.0-98.0) fL MCH (27.0-33.0) pg MCHC (31.0-35.0) g/dl RDW (11.0-16.0) % Plt Count (160-400) X10*3/uL MPV (9.4-12.3) fL Immature Gran % (Auto) (0.0-0.4) % Neut % (Auto) (45-73) % Lymph % (Auto) (20-40) % [place] % (Auto) (2-11) % Eos % (Auto) (0-4) % Baso % (Auto) (0-2) % Lymph # (Auto) (1.2-4.9) X10*3/uL [place] # (Auto) (0.1-1.2) X10*3/uL Eos # (Auto) (0.0-0.4) X10*3/uL Baso # (Auto) (0.0-0.2) X10*3/uL Abs Immat Gran (auto) (0.00-0.03) X10*3/uL Absolute Neuts (auto) (2.0-8.3) x10*3/uL Absolute Nucleated RBC (0.0-0.012) X10*3/uL Nucleated RBC % (auto) (0.0-0.2) /100WBC APTT (26.0-36.8) SEC VBG pH (7.32-7.43) VBG pCO2 mmHg VBG pO2 mmHg VBG HCO3 (22-26) mmol/L VBG O2 Saturation % VBG Base Excess mmol/L Sodium (135-145) mmol/L Potassium (3.3-5.1) mmol/L Chloride (96-108) mmol/L Carbon Dioxide (22-29) mmol/L Anion Gap (12-20) BUN (9-16) mg/dL Creatinine (0.5-1.4) mg/dL Estim Creat Clear Calc Estimated GFR POC Glucose (60-115) mg/dL Random Glucose (60-115) mg/dL Lactic Acid (0.5-2.0) mmol/L Calcium (8.4-10.2) mg/dL Magnesium (1.6-2.6) mg/dL Total Bilirubin (0.0-1.0) mg/dL AST (5-31) U/L ALT (0-31) U/L Alkaline Phosphatase (39-117) U/L Troponin I High Sens (<3.5-17.0) ng/L Total Protein (6.5-8.0) g/dL Albumin (3.5-5.0) g/dL Lipase (8-78) U/L Influenza Type A (PCR) NEGATIVE (Negative) Influenza Type B (PCR) NEGATIVE (Negative) RSV RNA Qual (PCR) NEGATIVE (Negative) SARS-CoV-2 RNA (RT-PCR) NEGATIVE (Negative) Independent Interpretation I performed an independent interpretation of an: EKG and Plain X-Ray Interpretation: My interpretation patient's one-view chest x-ray is as follows: No acute focal infiltrates noted My independent interpretation patient's 12 EKG done at 23:44 hours is as follows: Sinus tachycardia with a rate of 106, normal CT interval, QRS duration, QTC interval, no ST segment elevation, no ST segment depression, no significant T-wave abnormalities, no PACs, no PVCs except for the tachycardia this is a normal EKG. Radiology Impression Discussion of test interpretation with radiology: I have reviewed the radiologist's reading. Radiologist Impression: XR chest 1V IMPRESSION: 1. Similar degree of diffuse interstitial thickening. 2. No focal consolidation. 3. No pleural effusion or pneumothorax. Dictated By: Stephanie Ford External Record Review External record reviewed: Inpatient record Chronic Conditions Patient?s care impacted by: Diabetes and Other (Asthma) Critical Care Time Critical Care Time Critical Care Time: Yes Total Critical Care Time: 35 Attestation: Critical Care: The patient was critically ill with a high probability of imminent or life threatening deterioration. I spent greater than 30 minutes of discontinuous time evaluating the patient,delivering critical care at the bedside, discussing and evaluating pertinent data with consultants. Critical care time does not include time spent performing separately billable procedures or teaching. Total time spent performing critical care was 35 minutes. Discharge Plan Discharge Clinical Impression: Hyperglycemia, Hypoxia Asthma exacerbation Qualifiers: Asthma severity: severe Asthma persistence: persistent Qualified Code(s): J 45.51 - Severe persistent asthma with (acute) exacerbation Patient Disposition: Admitted As Inpatient
[2023-09-01 21:57] VITALS: PULSE 90; RESP 20; O2SAT 94
[2023-09-01] MEDS: Albuterol/Iprat 2.5/0.5MG 3 ML AMPUL.NEB INHALE (22:05)
[2023-09-01 22:17] LABS: MANUAL DIFF FLAG NO
[2023-09-01 22:18] LABS: Basophils Percent Auto 0.3 % (0-2); Eosinophils Absolute Auto 0.4 X10*3/uL (0.0-0.4); Eosinophils Percent Auto 4.1 % (0-4); Hematocrit 38.7 % (37.0-47.0); Hemoglobin 12.6 g/dl (12.0-16.0); Imm Gran Abs Auto 0.04 X10*3/uL (0.00-0.03); Imm Gran Pct Auto 0.4 % (0.0-0.4); Lymphocytes Absolute Auto 1.4 X10*3/uL (1.2-4.9); Lymphocytes Percent Auto 13.4 % (20-40); Mean Corpuscular HGB Conc 32.6 g/dl (31.0-35.0); Mean Corpuscular Hemoglobin 26.4 pg (27.0-33.0); Mean Corpuscular Volume 81.1 fL (80.0-98.0); Mean Platelet Volume 9.6 fL (9.4-12.3); Monocytes Absolute Auto 0.5 X10*3/uL (0.1-1.2); Monocytes Percent Auto 4.7 % (2-11); Neutrophils Absolute Auto 7.8 x10*3/uL (2.0-8.3); Neutrophils Percent Auto 77.1 % (45-73); Platelet Count 308 X10*3/uL (160-400); Red Blood Count 4.77 X10*6/uL (4.20-5.50); Red Cell Distribution Width 13.8 % (11.0-16.0); White Blood Count 10.2 X10*3/uL (4.8-10.8)
[2023-09-01 22:19] LABS: Venous Blood Gas Refer to POC result
[2023-09-01 22:21] LABS: VBG Base Excess 11.5 mmol/L; VBG HCO3 36 mmol/L (22-26); VBG pCO2 49 mmHg; VBG pH 7.47 (7.32-7.43); VBG pO2 80 mmHg
[2023-09-01 22:23] VITALS: BP 114/66; PULSE 113; RESP 20; O2SAT 90
[2023-09-01] MEDS: methylPREDNISolone Sod Succ 125 MG/2 ML VIAL IVPUSH (22:23)
[2023-09-01] MEDS: HYDROmorphone HCl 1 MG/ML SYRINGE IVPUSH (22:23)
[2023-09-01 22:30] LABS: Lactic Acid 1.8 mmol/L (0.5-2.0)
[2023-09-01 22:34] LABS: Partial Thromboplastin Time 24.1 SEC (26.0-36.8)
[2023-09-01 22:39] LABS: Alanine Aminotransferase 45 U/L (0-31); Albumin Level 3.6 g/dL (3.5-5.0); Alkaline Phosphatase 228 U/L (39-117); Anion Gap 16 (12-20); Aspartate Amino Transferase 28 U/L (5-31); Bilirubin Total 0.6 mg/dL (0.0-1.0); Blood Urea Nitrogen 15 mg/dL (9-16); Calcium 9.6 mg/dL (8.4-10.2); Carbon Dioxide 32 mmol/L (22-29); Chloride 90 mmol/L (96-108); Creatinine Clr Calc Pharmacy 62.6; Estimated Glomerular Filt Rate 42; Glucose Random 618 mg/dL (60-115); Lipase 9 U/L (8-78); Magnesium 1.7 mg/dL (1.6-2.6); Potassium 4.8 mmol/L (3.3-5.1); Sodium 133 mmol/L (135-145)
[2023-09-01 22:45] LABS: Troponin-I High Sensitivity < 2.7 ng/L (<3.5-17.0)
--- NOTE | 2023-09-01 22:50 | ECG_ITS ---
Test Reason : SOB Blood Pressure : / mmHG Vent. Rate : 106 BPM Atrial Rate : 106 BPM P-R Int : 158 ms QRS Dur : 086 ms QT Int : 338 ms P-R-T Axes : 052 -20 033 degrees QTc Int : 448 ms Sinus tachycardia Otherwise normal ECG When compared with ECG of 18-AUG-2023 01:19, No significant change was found Referred By: Henry Chandra Electronically Signed By:Skip Ledesma
--- NOTE | 2023-09-01 23:06 | P.HPHOSP_ITS ---
History of Present Illness Date of Service: 09/01/23 Chief Complaint: Dyspnea This is a 52-year-old female with pertinent history of chronic hypoxemic respiratory failure on trach collar due to asthma, hypertension, insulin- dependent diabetes mellitus, mixed hyperlipidemia, mood disorder, history of PE on Eliquis who presents to the emergency department for evaluation of dyspnea. Patient states symptoms started 3-4 prior to presentation. She has been having cough with intermittent sputum production. Also has been having wheezing and dyspnea. Symptoms have been progressive. No fever or chills. She uses 2 L supplemental oxygen at baseline as needed. No chest discomfort, palpitations, abdominal pain, changes in urinary or bowel habits. No symptoms of choking or coughing with food. Of note, patient was recently admitted with acute on chronic hypoxic respiratory failure due to asthma exacerbation and discharged on 08/20/2023 In the emergency department, patient satting 84% on her home supplemental oxygen and wheezing despite multiple DuoNeb treatments. Review of Systems 2 Cardiovascular: Cardiovascular: Reports dyspnea on exertion Respiratory: Respiratory: Reports cough, Reports dyspnea on exertion and Reports wheezing Allergic/Immunologic: Allergic/Immunologic: Reports wheezing [facility] Medical History Tracheostomy dependent History of cardiac arrest Wound drainage Takotsubo cardiomyopathy Kidney stones UTI (urinary tract infection) Bipolar 1 disorder Diabetes Asthma Substance abuse Family History Mother No pertinent family history Father No pertinent family history Surgical History S/P ureteral stent placement H/O exploratory laparotomy S/P cholecystectomy Social History Household Members: Spouse Household Members Other:: 1 Housing: Apartment Do you presently have visiting nurse or other home services: No Alcohol intake: former Comment: stayed in ed Patient Tobacco Use Status: Never used Tobacco Smoked in Last 30 Days: No Second Hand Smoke Exposure: Yes Use of substances other than those prescribed or required for medical reasons: No Advance Directives: Yes Advance Directives on File: Yes Advance Directives Date on File: 02/04/23 Do you have a plan to hurt others: No Plan service: No Current occupational status: disabled Meds Allergies Allergy/AdvReac Type Severity Reaction Status Date / Time pantoprazole Allergy Mild Redness of Verified 09/01/23 21:30 Skin Active Medications: Current Medications Sodium Chloride (Ns) 1,000 mls @ 999 mls/hr IV .Q1H1M STA Stop: 09/01/23 23:53 Home Medications ?Medication ?Instructions ?Recorded ?Confirmed ?Last Taken ?Type albuterol sulfate 90 mcg/actuation 2 puff inhalation Q4H PRN wheezing 02/02/23 08/18/23 Unknown History aerosol inhaler (Ventolin HFA) apixaban 5 mg tablet (Eliquis) 5 mg PO BID 02/02/23 08/18/23 08/17/23 History atorvastatin 10 mg tablet 10 mg PO BEDTIME 02/02/23 08/18/23 08/17/23 History clonazepam 1 mg tablet 1 mg PO BID Anxiety 02/02/23 08/18/23 08/17/23 History escitalopram oxalate 20 mg tablet 20 mg PO BEDTIME 02/02/23 08/18/23 08/17/23 History famotidine 20 mg tablet 20 mg PO BID 02/02/23 08/18/23 08/17/23 History fluticasone propionate 50 1 spray intranasal DAILY allergies 02/02/23 08/18/23 08/17/23 History mcg/actuation nasal spray,suspension gabapentin 100 mg capsule 100 mg PO TID 02/02/23 08/18/23 08/17/23 History glipizide 5 mg tablet 5 mg PO DAILY 02/02/23 08/18/23 08/17/23 History insulin lispro 100 unit/mL 1 sliding scale dose subcut TIDAC 02/02/23 08/18/23 08/17/23 History subcutaneous pen lurasidone 60 mg tablet 60 mg PO BEDTIME 02/02/23 08/18/23 08/17/23 History metformin 500 mg tablet,extended 1,000 mg PO BID 02/02/23 08/18/23 08/17/23 History release 24 hr oxcarbazepine 300 mg tablet 300 mg PO BID 02/02/23 08/18/23 08/17/23 History promethazine 25 mg tablet 25 mg PO DAILY PRN nausea 02/02/23 08/18/23 Unknown History tizanidine 4 mg tablet 4 mg PO DAILY PRN muscle spasm 02/02/23 08/18/23 Unknown History trazodone 150 mg tablet 150 mg PO BEDTIME PRN Sleep 02/02/23 08/18/23 Unknown History insulin glargine 100 unit/mL (3 10 unit subcut DAILY 06/15/23 08/18/23 08/17/23 History mL) subcutaneous pen (Lantus Solostar U-100 Insulin) codeine 10 mg-guaifenesin 100 mg/5 10 ml PO Q8H PRN cough 08/18/23 08/18/23 Unknown History mL oral liquid diphenhydramine HCl 25 mg capsule 25 mg PO TID PRN Allergic Symptoms 08/18/23 08/18/23 Unknown History (Hanl) Physical Exam 2 Vital Signs and Narrative: Vital Signs: Last Vital Signs Pulse 113 H 09/01/23 22:23 Resp 20 09/01/23 22:23 BP 114/66 09/01/23 22:23 Pulse Ox 90 L 09/01/23 22:23 O2 Del Method Nasal Cannula 09/01/23 22:23 O2 Flow Rate 4 09/01/23 22:23 Oxygen Flow Rate 4 09/01/23 21:25 BMI result Body Mass Index 34.8 Middle-aged female lying in bed in mild distress on supplemental oxygen Neck supple, no JVD Regular rate and rhythm, S1-S2 heard Bilateral wheezing Abdomen soft nontender, no guarding, no rigidity Patient is awake, alert and oriented to self, place, time and person ; no focal motor deficit Psych: Normal mood No pedal edema Results Labs 09/01/23 22:10 09/01/23 22:10 Labs: Laboratory Results - last 24 hr 09/01/23 09/01/23 09/01/23 21:29 22:10 22:14 MCV 81.1 MCH 26.4 L MCHC 32.6 RDW 13.8 Plt Count 308 MPV 9.6 Immature Gran % (Auto) 0.4 Neut % (Auto) 77.1 H Lymph % (Auto) 13.4 L [place] % (Auto) 4.7 Eos % (Auto) 4.1 H Baso % (Auto) 0.3 Lymph # (Auto) 1.4 [place] # (Auto) 0.5 Eos # (Auto) 0.4 Baso # (Auto) 0.0 Abs Immat Gran (auto) 0.04 H Absolute Neuts (auto) 7.8 Absolute Nucleated RBC 0.000 Nucleated RBC % (auto) 0.0 APTT 24.1 L VBG pH 7.47 H VBG pCO2 49 VBG pO2 80 VBG HCO3 36 H VBG O2 Saturation 96.0 VBG Base Excess 11.5 Anion Gap 16 Estim Creat Clear Calc 62.6 Estimated GFR 42 POC Glucose 537 H* Random Glucose 618 H* Lactic Acid 1.8 Calcium 9.6 Magnesium 1.7 Total Bilirubin 0.6 AST 28 ALT 45 H Alkaline Phosphatase 228 H Troponin I High Sens < 2.7 Total Protein 7.0 Albumin 3.6 Lipase 9 Imaging Radiologist's Impressions: Impressions Chest X-Ray 09/01/23 22:14 IMPRESSION: 1. Similar degree of diffuse interstitial thickening. 2. No focal consolidation. 3. No pleural effusion or pneumothorax. Assessment and Plan (1) Asthma exacerbation: Qualifiers: Asthma persistence: persistent Asthma severity: severe Qualified Code(s): J45.51 - Severe persistent asthma with (acute) exacerbation Status: Acute (2) Acute and chronic respiratory failure with hypoxia: Status: Acute Plan This is a 52-year-old female with pertinent history of chronic hypoxemic respiratory failure on trach collar due to asthma, hypertension, insulin- dependent diabetes mellitus, mixed hyperlipidemia, mood disorder, history of PE on Eliquis who presents to the emergency department for evaluation of dyspnea. #. Acute on chronic hypoxemic respiratory failure due to acute exacerbation of asthma: Will admit patient with supplemental oxygen. Continue supplemental oxygen and wean as tolerated. Initiating systemic steroids. Scheduled and p.r.n. DuoNebs. Continue home inhaler #. Insulin-dependent diabetes mellitus with hyperglycemia: Initiating basal plus insulin regimen #. History of PE: On Eliquis #. Mixed hyperlipidemia: On statin #. Mood disorder: Continue home mood stabilizers #. Obesity: Low-calorie diet and weight loss Med rec pending DVT prophylaxis: Eliquis Full code Admit as inpatient and will require two night minimum hospital stay for IV steroids, supplemental oxygen (as above), which is not possible in a lesser acute setting. Quality Stroke Does the patient have a stroke diagnosis?: No VTE Prior VTE?: No VTE Risk Level:: Medical - moderate - high VTE Device Contraindication: Treatment Not Indicated VTE Drug Contraindication: N/A - Med Ordered
[2023-09-01] MEDS: 0.9 % Sodium Chloride 1,000 ML 999 ML IV (23:16)
[2023-09-01 23:22] LABS: Influenza A PCR NEGATIVE (Negative); Influenza B PCR NEGATIVE (Negative); Resp Syncy Virus RNA Qual PCR NEGATIVE (Negative); SARS COV2 PCR INHOUSE NEGATIVE (Negative)
[2023-09-02] VITALS (21 sets, daily range): BP systolic 94–148; BP diastolic 42–71; PULSE 78–112; RESP 11–26; TEMP 36.5–36.9; O2SAT 85–98
[2023-09-02 00:39] LABS: Glucose, Whole Blood 535 mg/dL (60-115)
[2023-09-02] MEDS: Insulin Regular, Human 100 UNIT/ML 10 ML VIAL 10 UNIT IVPUSH ×2 (00:56→05:47)
[2023-09-02] MEDS: Insulin Glargine,Hum.rec.anlog 100 UNIT/ML 10 ML VIAL 20 UNIT SUBCUT ×2 (00:57→20:33)
[2023-09-02] MEDS: Ketorolac Tromethamine 30 MG/ML VIAL IVPUSH (01:01)
[2023-09-02] MEDS: 0.9 % Sodium Chloride Flush 3 ML SYRINGE IVFLUSH ×3 (01:01→23:02)
--- NOTE | 2023-09-02 01:52 | PC.NURSE ---
Assumed care of pt at 2345, pt c/0 pain 10/10 in back with deep inspiration. Pt declined tylenol. Message sent to provider for medication for pain. Toradol ordered IV. Pt accepting of medication but doesn't believe it will work. Random glucose 600's at 2210, 10 units Regular IV push insulin ordered but not administered. Pt also due for lantus 20 units. verified with provider for orders. POC checked and POC:[id number]. 10 units IV regular insulin and 20 units lantus given.
--- NOTE | 2023-09-02 03:52 | PC.RT ---
Pt refusing tracheal sx
--- NOTE | 2023-09-02 03:52 | PC.NURSE ---
Pt sats down to 80%, on trach mask with bubbler at 60%. Respiratory called, busy with another pt. PT trach mask increased to 98%, pt refusing suction. sats slowly improving 84%
--- NOTE | 2023-09-02 04:02 | PC.NURSE ---
Addendum entered by Serena Moore RN 09/02/23 04:02: no new orders at this time. Original Note: MD made aware of o2 sats and pt report of 8/10 back pain with inspiration.
[2023-09-02 05:18] LABS: Basophils Percent Auto 0.5 % (0-2); Eosinophils Percent Auto 0.2 % (0-4); Hematocrit 39.9 % (37.0-47.0); Hemoglobin 12.6 g/dl (12.0-16.0); Imm Gran Abs Auto 0.04 X10*3/uL (0.00-0.03); Imm Gran Pct Auto 0.5 % (0.0-0.4); Lymphocytes Absolute Auto 0.5 X10*3/uL (1.2-4.9); Lymphocytes Percent Auto 5.1 % (20-40); MANUAL DIFF FLAG SCAN; Mean Corpuscular HGB Conc 31.6 g/dl (31.0-35.0); Mean Corpuscular Hemoglobin 26.3 pg (27.0-33.0); Mean Corpuscular Volume 83.1 fL (80.0-98.0); Mean Platelet Volume 9.4 fL (9.4-12.3); Monocytes Absolute Auto 0.1 X10*3/uL (0.1-1.2); Monocytes Percent Auto 0.8 % (2-11); Neutrophils Absolute Auto 8.3 x10*3/uL (2.0-8.3); Neutrophils Percent Auto 92.9 % (45-73); Platelet Count 305 X10*3/uL (160-400); SCAN SMEAR FLAG 1; White Blood Count 8.9 X10*3/uL (4.8-10.8)
[2023-09-02 05:32] LABS: Anion Gap 15 (12-20); Blood Urea Nitrogen 18 mg/dL (9-16); Calcium 9.1 mg/dL (8.4-10.2); Carbon Dioxide 29 mmol/L (22-29); Chloride 93 mmol/L (96-108); Creatinine Clr Calc Pharmacy 66.1; Estimated Glomerular Filt Rate 45; Glucose Random 587 mg/dL (60-115); Potassium 4.9 mmol/L (3.3-5.1); Sodium 132 mmol/L (135-145)
[2023-09-02 05:36] LABS: SLIDE REVIEW VERIFIED
[2023-09-02] MEDS: methylPREDNISolone Sod Succ 40 MG/ML VIAL IVPUSH (05:48)
[2023-09-02] MEDS: Insulin Lispro 100 UNIT/ML 3 ML VIAL SUBCUT ×3 (05:48→12:41)
--- NOTE | 2023-09-02 05:53 | PC.NURSE ---
Random glucose 587, ordered to give 0730 Admelog as well as 10 units IV push. meds administered.
[2023-09-02 06:23] LABS: Glucose, Whole Blood 526 mg/dL (60-115)
[2023-09-02 07:36] LABS: Glucose, Whole Blood 449 mg/dL (60-115)
[2023-09-02] MEDS: Albuterol/Iprat 2.5/0.5MG 3 ML AMPUL.NEB INHALE ×5 (07:54→19:02)
[2023-09-02 08:07] LABS: Estimated Average Glucose 318 mg/dL; Hemoglobin A1c % 12.7 % (<6.0)
[2023-09-02] MEDS: Insulin Lispro 100 UNIT/ML 3 ML VIAL 10 UNIT SUBCUT (08:32)
[2023-09-02] MEDS: Insulin Glargine,Hum.rec.anlog 100 UNIT/ML 10 ML VIAL 15 UNIT SUBCUT (08:32)
--- NOTE | 2023-09-02 08:59 | PHA.MEDREC ---
Addendum entered by Octaviano Steen 09/02/23 09:05: Patient was taking Promethazine for nausea and according to they have not filled that in a while due to her getting more nausea relief while taking Famotidine. Original Note: Pharmacy Consult ? Medication Reconciliation Pharmacy has completed the medication reconciliation. Confirmed medications with list from recent discharge summary and by calling and confirming with Casimiro over the phone. He was able to let me know his takes Eliquis 5mg in the Am and she took her last dose yesterday AM. He also was able to confirm her Insulin Lispro using it as sliding scale per sugar levels 3 times before meals and Insulin Glargine (Lantus) 10 units daily.
--- NOTE | 2023-09-02 09:00 | PC.NURSE ---
assumed care of this patient at 0700, patient ressting quietly in bed, on trach collar satting 86%, resp called to the bedside, placed patient high flow via trach settings 100% fio2 25L. patient respirations equal and unlabored, o2 sats now 95%, VSS. medicated per MAY. patient is stand and pivot to the commode. refused breakfast tray, ate banana
--- NOTE | 2023-09-02 09:21 | P.PNIM_ITS ---
Subjective Subjective Date of Service: 09/02/23 Interval History: f/u on asthma with hypoxia, DM with hyperglycemia interval history: no respiratory difficulty.. Blood sugar have been very high despite multiple doses of insulin, her sugars have been high at home as well as she has been on Prednisone and just received multiple dose of steroid here as well. Blood sugar presently 449 Physical Exam 2 Vital Signs: Vital Signs: Last Vital Signs Temp 97.7 F 09/02/23 07:19 Pulse 91 09/02/23 08:59 Resp 14 09/02/23 08:59 BP 104/69 09/02/23 07:19 Pulse Ox 95 09/02/23 08:59 O2 Del Method High Flow Nasal C annula, Trach Crystal ar 09/02/23 08:59 O2 Flow Rate 45 09/02/23 08:59 FiO2 100 09/02/23 08:59 Oxygen Flow Rate 4 09/01/23 21:25 BMI result Body Mass Index 34.8 General: AO X 3, no acute distress Resp: CTA bilateral, no wheeze, no increase wob CVS: S1,S2,RRR GI: +BS, NT, no distention Skin: No rash Neuro: motor grossly intact Psych: appropriate affect Objective Data Active Medications Acetaminophen (Acetaminophen 325 Mg Tablet) 650 mg PO Q6H PRN PRN Reason: Pain, Mild (Pain Scale 1-3), fever or headache Albuterol/Ipratropium (Albuterol/Iprat 2.5/0.5mg 3 Ml Ampul.Neb) 3 ml INHALE RQ4H WHILE AWAKE RILEY Last Admin: 09/02/23 07:54 Dose: 3 ml Documented By: CAITLIN Albuterol/Ipratropium (Albuterol/Iprat 2.5/0.5mg 3 Ml Ampul.Neb) 3 ml INHALE RQ4H PRN PRN Reason: Wheezing Calcium Carbonate (Calcium Carbonate 750 Mg Tab.Chew) 750 mg PO Q4H PRN PRN Reason: Heartburn Glucose (Glucose Gel 15 Gm Gel..Gram.) 15 gm PO Q15M PRN; Protocol PRN Reason: per Hypoglycemia Standing Ord. Dextrose (D10) 250 mls @ 750 mls/hr IV Q15M PRN; Protocol PRN Reason: per Hypoglycemia Standing Ord. Insulin Glargine (Insulin Glargine,Hum.Rec.Anlog 100 Unit/Ml 10 Ml Vial) 15 unit SUBCUT DAILY [facility] Last Admin: 09/02/23 08:32 Dose: 15 unit Documented By: SHILPA Insulin Human Lispro (Insulin Lispro 100 Unit/Ml 3 Ml Vial) 0 unit SUBCUT QIDACHS [facility]; Protocol Last Admin: 09/02/23 05:48 Dose: 10 unit Documented By: DANE Magnesium Hydroxide (Milk Of Magnesia 30 Ml Oral.Susp) 30 ml PO DAILY PRN PRN Reason: Constipation Melatonin (Melatonin 3 Mg Tablet) 6 mg PO BEDTIME PRN PRN Reason: Insomnia Methylprednisolone Sodium Succinate (Methylprednisolone Sod Succ 40 Mg/Ml Vial) 20 mg IVPUSH Q12H [facility] Sodium Chloride (0.9 % Sodium Chloride Flush 3 Ml Syringe) 3 ml IVFLUSH QSHIFT [facility] Last Admin: 09/02/23 09:03 Dose: Not Given Documented By: SHILPA Non-Admin Reason: See Note Labs 09/02/23 05:02 09/02/23 05:02 Labs: Laboratory Results - last 24 hr 09/01/23 09/01/23 09/01/23 21:29 22:10 22:14 MCV 81.1 MCH 26.4 L MCHC 32.6 RDW 13.8 Plt Count 308 MPV 9.6 Immature Gran % (Auto) 0.4 Neut % (Auto) 77.1 H Lymph % (Auto) 13.4 L [place] % (Auto) 4.7 Eos % (Auto) 4.1 H Baso % (Auto) 0.3 Lymph # (Auto) 1.4 [place] # (Auto) 0.5 Eos # (Auto) 0.4 Baso # (Auto) 0.0 Abs Immat Gran (auto) 0.04 H Absolute Neuts (auto) 7.8 Absolute Nucleated RBC 0.000 Nucleated RBC % (auto) 0.0 Smear Tech's Comments APTT 24.1 L VBG pH 7.47 H VBG pCO2 49 VBG pO2 80 VBG HCO3 36 H VBG O2 Saturation 96.0 VBG Base Excess 11.5 Anion Gap 16 Estim Creat Clear Calc 62.6 Estimated GFR 42 POC Glucose 537 H* Random Glucose 618 H* Estimat Average Glucose Hemoglobin A1c % Lactic Acid 1.8 Calcium 9.6 Magnesium 1.7 Total Bilirubin 0.6 AST 28 ALT 45 H Alkaline Phosphatase 228 H Troponin I High Sens < 2.7 Total Protein 7.0 Albumin 3.6 Lipase 9 Influenza Type A (PCR) Influenza Type B (PCR) RSV RNA Qual (PCR) SARS-CoV-2 RNA (RT-PCR) 09/01/23 09/02/23 09/02/23 22:40 00:35 05:02 MCV 83.1 MCH 26.3 L MCHC 31.6 RDW 14.0 Plt Count 305 MPV 9.4 Immature Gran % (Auto) 0.5 H Neut % (Auto) 92.9 H Lymph % (Auto) 5.1 L [place] % (Auto) 0.8 L Eos % (Auto) 0.2 Baso % (Auto) 0.5 Lymph # (Auto) 0.5 L [place] # (Auto) 0.1 Eos # (Auto) 0.0 Baso # (Auto) 0.0 Abs Immat Gran (auto) 0.04 H Absolute Neuts (auto) 8.3 Absolute Nucleated RBC 0.000 Nucleated RBC % (auto) 0.0 Smear Tech's Comments VERIFIED APTT VBG pH VBG pCO2 VBG pO2 VBG HCO3 VBG O2 Saturation VBG Base Excess Anion Gap 15 Estim Creat Clear Calc 66.1 Estimated GFR 45 POC Glucose 535 H* Random Glucose 587 H* Estimat Average Glucose 318 Hemoglobin A1c % 12.7 H Lactic Acid Calcium 9.1 Magnesium Total Bilirubin AST ALT Alkaline Phosphatase Troponin I High Sens Total Protein Albumin Lipase Influenza Type A (PCR) NEGATIVE Influenza Type B (PCR) NEGATIVE RSV RNA Qual (PCR) NEGATIVE SARS-CoV-2 RNA (RT-PCR) NEGATIVE 09/02/23 09/02/23 06:19 07:31 MCV MCH MCHC RDW Plt Count MPV Immature Gran % (Auto) Neut % (Auto) Lymph % (Auto) [place] % (Auto) Eos % (Auto) Baso % (Auto) Lymph # (Auto) [place] # (Auto) Eos # (Auto) Baso # (Auto) Abs Immat Gran (auto) Absolute Neuts (auto) Absolute Nucleated RBC Nucleated RBC % (auto) Smear Tech's Comments APTT VBG pH VBG pCO2 VBG pO2 VBG HCO3 VBG O2 Saturation VBG Base Excess Anion Gap Estim Creat Clear Calc Estimated GFR POC Glucose 526 H* 449 H* Random Glucose Estimat Average Glucose Hemoglobin A1c % Lactic Acid Calcium Magnesium Total Bilirubin AST ALT Alkaline Phosphatase Troponin I High Sens Total Protein Albumin Lipase Influenza Type A (PCR) Influenza Type B (PCR) RSV RNA Qual (PCR) SARS-CoV-2 RNA (RT-PCR) Assessment and Plan (1) Hypoxia: Status: Acute (2) Hyperglycemia: Status: Acute (3) Asthma exacerbation: Status: Acute Plan 52-year-old female with pertinent history of chronic hypoxemic respiratory failure on trach collar due to asthma, hypertension, insulin-dependent diabetes mellitus, mixed hyperlipidemia, mood disorder, history of PE on Eliquis who presents to the emergency department for evaluation of dyspnea. Acute on chronic hypoxemic respiratory failure due to acute exacerbation of asthma, clinically better -reduce steroid considerably, continue bronchodilators. O2 via trach colar T2DM with hyperglycemia- d/t steroid and baseline not well controlled, A1C 12.7 ? compliance.. no acidosis -Continue Lantus at 15 (10 at home), add pre meal insulin 7, Sliding. continue metformin and glipizide History of PE- Eliquis HLD-Lipitor Mood disorder: Continue home mood stabilizers (trileptal, trazadone, lurasidone, clonapin0 Obesity--weight losss advised DVT prophylaxis: Eliquis Full code need for inpt: asthma exacerbation needing iv steroid, and hypeglycemia requiring iv insulin Quality Stroke Does the patient have a stroke diagnosis?: No VTE Prior VTE?: No VTE Risk Level:: Medical - moderate - high VTE Device Contraindication: Treatment Not Indicated VTE Drug Contraindication: N/A - Med Ordered
[2023-09-02] MEDS: metFORMIN HCl ER 500 MG TAB.ER.24H 1000 MG PO (10:09)
[2023-09-02] MEDS: Famotidine 20 MG TABLET PO ×2 (10:09→20:34)
[2023-09-02] MEDS: Gabapentin 100 MG CAPSULE PO ×3 (10:09→20:34)
[2023-09-02] MEDS: OXcarbazepine 300 MG TABLET PO ×2 (10:09→20:34)
[2023-09-02] MEDS: clonazePAM 1 MG TABLET PO ×2 (10:09→20:34)
[2023-09-02] MEDS: Apixaban 5 MG TABLET PO ×2 (10:10→20:34)
[2023-09-02] MEDS: glipiZIDE 5 MG TABLET PO (10:10)
--- NOTE | 2023-09-02 12:01 | PC.NURSE ---
patient stated she was not going upstairs until she was medicated for pain, this RN offered patient the prn pain medication in MAY, patient refused tylenol stating it doesnt do anything for her pain. attending aware, patient being transported to floor by transport and RT
[2023-09-02 12:29] LABS: Glucose, Whole Blood 578 mg/dL (60-115)
[2023-09-02] MEDS: 0.9 % Sodium Chloride 1,000 ML 999 ML IVCONT ×2 (12:42→13:07)
[2023-09-02 12:56] LABS: Glucose, Whole Blood 548 mg/dL (60-115)
[2023-09-02] MEDS: Insulin Regular, Human 100 UNIT/ML 10 ML VIAL 20 UNIT IVPUSH (12:57)
[2023-09-02] MEDS: Morphine Sulfate 2 MG/ML CARTRIDGE IVPUSH (13:08)
[2023-09-02 13:31] LABS: Glucose, Whole Blood 456 mg/dL (60-115)
[2023-09-02 14:06] LABS: Glucose, Whole Blood 436 mg/dL (60-115)
[2023-09-02] MEDS: guaiFEN/Codeine SF 200/20/10ML 10 ML LIQUID PO ×2 (15:00→23:46)
[2023-09-02 15:12] LABS: Glucose, Whole Blood 442 mg/dL (60-115)
--- NOTE | 2023-09-02 15:33 | CA_ITS ---
Transthoracic Echocardiogram Patient (Last, First, Middle): Anna Marie Black, Gender: Female Date of : 1970 Age: 52 Procedure Date: 09/02/2023 Procedure Type: Transthoracic Echocardiogram Location: ICU Height: 160.02 cm Weight: 103.42 kg BSA: 2.04 m2 Heart Rate: bpm BP: 114 / 50 mmHg Sausage Mixer: Referring MD: Tucker Rodríguez MD Symptoms: dyspnea Study Quality: Adequate w Contrast ECG Rhythm: Sinus Conclusions: - Normal left ventricular cavity size. There is mildly increased left ventricular wall thickness. The left ventricular systolic function is hyperdynamic. The visually estimated ejection fraction is >70%. - Mildly increased right ventricular cavity size. There is normal right ventricular systolic function. - There is mild dilatation of the ascending aorta measuring 3.90 cm. Findings Procedure Information Contrast agent, definity, is being given per protocol without apparent complications. Left Ventricle Normal left ventricular cavity size. There is mildly increased left ventricular wall thickness. The left ventricular systolic function is hyperdynamic. The visually estimated ejection fraction is >70%. There is no evidence of regional wall motion abnormalities. Diastolic function is indeterminate on the basis of available data. Right Ventricle Mildly increased right ventricular cavity size. There is normal right ventricular systolic function. Atria The left atrium is normal in size. Aortic Valve There is a normal trileaflet aortic valve. There is no aortic valve stenosis. There is no aortic valve regurgitation. Mitral Valve The mitral valve appears normal. There is no mitral valve regurgitation. There is no mitral valve stenosis. Pulmonic Valve The pulmonic valve is likely normal. Tricuspid Valve Normal tricuspid valve structure. Normal right atrial pressure. There is no evidence of pulmonary hypertension. Great Vessels There is mild dilatation of the ascending aorta measuring 3.90 cm. The visualized portions of the pulmonary artery and branches are normal. Venous The inferior vena cava is normal in size and collapses greater than 50% with inspiration. Pericardium/Pleural There is no evidence of pericardial effusion. Prior Study Comparison No prior study available for comparison. Measurements 2D Linear Measurements IVSd: 1.06 0.6-0.9/0.6-1.0 cm LVIDd: 5.04 3.9-5.3/4.2-5.9 cm LVIDd Index: 2.47 2.4-3.2/2.2-3.1 cm/m2 LVIDs: 3.01 2.0-3.6 cm LVPWd: 1.02 0.7-1.1 cm Ao Root: 3.30 2.1-3.5 cm LA Diam: 3.10 2.7-3.8/3.0-4.0 cm LAIDs Index: 1.52 1.5-2.3 cm/m2 LV Mass: 242.24 67-162/88-224 g LV Mass Index: 118.74 43-95/49-115 g/m2 LVOT Diam: 2.10 3.0+(-)1.3 cm Mitral Valve MV Pk E: 1.03 MV PK A: 1.24 MV Decel Time: 126.00 E/A: 0.80 E'Lateral: 8.05 E'Medial: 6.85 E/E' Med: 15.00 E/E' Lat: 12.80 PHT: 37.00 MVA PHT: 5.95 Decel [place]iscoe: 8.24 Aortic Valve AoV Pk Pranav: 1.71 AoV Mn Pranav: 1.08 AoV VTI: 0.29 AoV Pk Grad: 12.00 Aov Mn Grad: 6.00 ROSALBA Cont.VTI: 2.49 LVOT LVOT Pk Pranav: 1.17 LVOT Mn Pranav: 0.70 LVOT VTI: 0.21 LVOT Pk Grad: 5.00 LVOT Mn Grad: 2.00 LVOT Diam: 2.10 LVOT Area: 3.46 Diastolic Function MV Pk E: 1.03 MV Pk A: 1.24 E/A: 0.80 E'Medial: 6.85 E/E' Med: 15.00 E' Laterial: 8.05 E/E' Lat: 12.80 Right Ventricle TAPSE (mm): 27.00 TVS' Pranav: 18.00 Tricuspid Valve TR Pk Pranav: 2.03 TR Pk Grad: 16.00 RA Press: 3.00 RVSP: 19.00 Great Vessels Aorta Ao Root-2D: 3.30 2.0-3.7 cm Ao Asc: 3.90 2.1-3.4 cm Pulmonary Valve PV Pk Pranav: 1.21 Peak PV Grad: 6.00 Updated in Other Vendor System with Status of Final Skip Ledesma MD electronically signed on 09/02/2023 7:04:45 PM with status of Final
--- NOTE | 2023-09-02 15:33 | PM.CCN ---
Critical Care Event Note Summary Date of Service: 09/02/23 Code activated: No Narrative: 52-year-old lady with underlying obesity, tracheostomy dependent, bipolar disorder, diabetes mellitus admitted with ?asthma exacerbation and treated with systemic glucocorticoids hospital course significant for difficult to control hyperglycemia now requiring insulin drip, transferred to intensive care unit for close monitoring. Critical Care Time (minutes): 0
[2023-09-02 15:44] LABS: Glucose, Whole Blood 410 mg/dL (60-115)
[2023-09-02] MEDS: Insulin Regular/NS 100 UNIT/100 ML PLAST..BAG 10 UNIT IVCONT (15:47)
[2023-09-02] MEDS: Lactated Ringers 1,000 ML 150 ML IVCONT (16:08)
[2023-09-02] MEDS: Ibuprofen 400 MG TABLET PO ×2 (17:13→23:46)
[2023-09-02 17:20] LABS: Glucose, Whole Blood 333 mg/dL (60-115)
[2023-09-02 18:03] LABS: Glucose, Whole Blood 258 mg/dL (60-115)
[2023-09-02 19:10] LABS: Glucose, Whole Blood 210 mg/dL (60-115)
[2023-09-02 19:42] LABS: Anion Gap 19 (12-20); Blood Urea Nitrogen 20 mg/dL (9-16); Calcium 8.9 mg/dL (8.4-10.2); Carbon Dioxide 25 mmol/L (22-29); Chloride 100 mmol/L (96-108); Creatinine Clr Calc Pharmacy 81.9; Estimated Glomerular Filt Rate 58; Glucose Random 179 mg/dL (60-115); Magnesium 1.8 mg/dL (1.6-2.6); Phosphorus 3.5 mg/dL (2.7-4.5); Potassium 4.9 mmol/L (3.3-5.1); Sodium 139 mmol/L (135-145)
[2023-09-02 20:07] LABS: Glucose, Whole Blood 148 mg/dL (60-115)
[2023-09-02] MEDS: Atorvastatin Calcium 10 MG TABLET PO (20:34)
[2023-09-02] MEDS: Lurasidone HCl 20 MG TABLET 60 MG PO (20:34)
[2023-09-02] MEDS: Escitalopram Oxalate 20 MG TABLET PO (20:34)
[2023-09-02] MEDS: Morphine Sulfate 2 MG/ML CARTRIDGE 1 MG IVPUSH (20:36)
[2023-09-02 22:40] LABS: Albumin Level 3.3 g/dL (3.5-5.0)
[2023-09-02] MEDS: Albumin Human 25 % 100 ML IV (23:02)
[2023-09-02 23:54] LABS: Glucose, Whole Blood 296 mg/dL (60-115)
[2023-09-03] VITALS (24 sets, daily range): BP systolic 89–141; BP diastolic 44–93; PULSE 65–120; RESP 9–25; TEMP 36.1–37; O2SAT 86–100
[2023-09-03] MEDS: Insulin Lispro 100 UNIT/ML 3 ML VIAL SUBCUT ×3 (00:01→21:25)
[2023-09-03 02:09] LABS: Glucose, Whole Blood 350 mg/dL (60-115)
[2023-09-03] MEDS: Insulin Regular/NS 100 UNIT/100 ML PLAST..BAG IVCONT (02:20)
[2023-09-03 03:12] LABS: Glucose, Whole Blood 315 mg/dL (60-115)
[2023-09-03 04:04] LABS: Glucose, Whole Blood 302 mg/dL (60-115)
[2023-09-03] MEDS: Albumin Human 25 % 100 ML IV (04:21)
[2023-09-03 04:55] LABS: VBG Base Excess 11.3 mmol/L; VBG HCO3 37 mmol/L (22-26); VBG pCO2 58 mmHg; VBG pH 7.41 (7.32-7.43); VBG pO2 67 mmHg
[2023-09-03 05:00] LABS: MANUAL DIFF FLAG NO
[2023-09-03 05:03] LABS: Basophils Percent Auto 0.2 % (0-2); Eosinophils Absolute Auto 0.1 X10*3/uL (0.0-0.4); Eosinophils Percent Auto 0.8 % (0-4); Hematocrit 30.6 % (37.0-47.0); Hemoglobin 9.7 g/dl (12.0-16.0); Imm Gran Abs Auto 0.05 X10*3/uL (0.00-0.03); Imm Gran Pct Auto 0.4 % (0.0-0.4); Lymphocytes Absolute Auto 1.2 X10*3/uL (1.2-4.9); Lymphocytes Percent Auto 9.8 % (20-40); Mean Corpuscular HGB Conc 31.7 g/dl (31.0-35.0); Mean Corpuscular Hemoglobin 26.6 pg (27.0-33.0); Mean Corpuscular Volume 83.8 fL (80.0-98.0); Mean Platelet Volume 9.7 fL (9.4-12.3); Monocytes Absolute Auto 0.6 X10*3/uL (0.1-1.2); Monocytes Percent Auto 5.1 % (2-11); Neutrophils Absolute Auto 10.2 x10*3/uL (2.0-8.3); Neutrophils Percent Auto 83.7 % (45-73); Platelet Count 250 X10*3/uL (160-400); Red Blood Count 3.65 X10*6/uL (4.20-5.50); White Blood Count 12.2 X10*3/uL (4.8-10.8)
[2023-09-03 05:03] LABS: Glucose, Whole Blood 286 mg/dL (60-115)
[2023-09-03 05:15] LABS: Venous Blood Gas Refer to POC result
[2023-09-03 05:18] LABS: Anion Gap 12 (12-20); Blood Urea Nitrogen 21 mg/dL (9-16); Calcium 8.1 mg/dL (8.4-10.2); Carbon Dioxide 29 mmol/L (22-29); Chloride 100 mmol/L (96-108); Creatinine Clr Calc Pharmacy 80.4; Estimated Glomerular Filt Rate 57; Glucose Random 309 mg/dL (60-115); Magnesium 1.9 mg/dL (1.6-2.6); Phosphorus 3.6 mg/dL (2.7-4.5); Potassium 4.4 mmol/L (3.3-5.1); Sodium 137 mmol/L (135-145)
[2023-09-03] MEDS: Morphine Sulfate 2 MG/ML CARTRIDGE 1 MG IVPUSH ×3 (05:33→20:09)
[2023-09-03 05:36] LABS: Albumin Level 3.3 g/dL (3.5-5.0)
[2023-09-03] MEDS: Ibuprofen 400 MG TABLET PO ×2 (05:36→11:56)
[2023-09-03 06:06] LABS: Glucose, Whole Blood 185 mg/dL (60-115)
[2023-09-03 07:07] LABS: Glucose, Whole Blood 152 mg/dL (60-115)
[2023-09-03] MEDS: Albuterol/Iprat 2.5/0.5MG 3 ML AMPUL.NEB INHALE ×4 (08:01→19:15)
[2023-09-03] MEDS: 0.9 % Sodium Chloride Flush 3 ML SYRINGE IVFLUSH ×2 (08:01→15:05)
[2023-09-03] MEDS: Apixaban 5 MG TABLET PO ×2 (08:03→20:09)
[2023-09-03] MEDS: clonazePAM 1 MG TABLET PO ×2 (08:03→20:09)
[2023-09-03] MEDS: OXcarbazepine 300 MG TABLET PO ×2 (08:03→20:09)
[2023-09-03] MEDS: Gabapentin 100 MG CAPSULE PO ×3 (08:03→20:09)
[2023-09-03] MEDS: Famotidine 20 MG TABLET PO ×2 (08:03→21:17)
[2023-09-03] MEDS: guaiFEN/Codeine SF 200/20/10ML 10 ML LIQUID PO ×2 (08:05→20:09)
[2023-09-03 08:18] LABS: Glucose, Whole Blood 149 mg/dL (60-115)
[2023-09-03 09:10] LABS: Glucose, Whole Blood 240 mg/dL (60-115)
--- NOTE | 2023-09-03 09:43 | PM.CCPN ---
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 Patient was started on systemic glucocorticoids and nebulized bronchodilators and admitted to medical cook. Hospital course significant for persistent hyperglycemia despite multiple subcu/IV insulin boluses patient started on insulin drip and transferred to the intensive care unit on 09/02/2023. No events overnight. Titrated off insulin drip. Critical Care Time (minutes): 0 Physical Exam Vital Signs: Vital Signs: Last Vital Signs Temp 98.0 F 09/03/23 08:00 Pulse 73 09/03/23 09:00 Resp 15 09/03/23 09:00 BP 103/60 09/03/23 09:00 Pulse Ox 97 09/03/23 09:00 O2 Del Method High Flow Nasal C annula 09/03/23 09:00 O2 Flow Rate 40 09/03/23 09:00 FiO2 75 09/03/23 09:00 Oxygen Flow Rate 4 09/01/23 21:25 BMI result Body Mass Index 34.8 Const: General: no acute distress, alert and awake Nutritional Appearance: obese Eyes: Sclerae: sclerae normal EOM: EOMs intact bilaterally Neck: Neck: Yes no lymphadenopathy, Yes trachea midline, Yes supple and Yes tracheostomy present Resp: Effort & Inspection: normal respiratory effort and no respiratory distress Auscultation: clear to auscultation bilaterally Cardio: Rate: regular rate Rhythm: regular rhythm Heart sounds: no gallops, no murmurs and no rubs GI: Palpation (GI): Soft to palpation and Other GI palpation findings present ( Nontender) Auscultation: normal bowel sounds Extrem: General: Yes no pedal edema, No clubbing and No cyanosis Objective Data Labs 09/03/23 04:47 09/03/23 04:47 Labs: Laboratory Results - last 24 hr 09/02/23 09/02/23 09/02/23 12:20 12:52 13:28 WBC RBC Hgb Hct MCV MCH MCHC RDW Plt Count MPV Immature Gran % (Auto) Neut % (Auto) Lymph % (Auto) [place] % (Auto) Eos % (Auto) Baso % (Auto) Lymph # (Auto) [place] # (Auto) Eos # (Auto) Baso # (Auto) Abs Immat Gran (auto) Absolute Neuts (auto) Absolute Nucleated RBC Nucleated RBC % (auto) Hold Purple Top VBG pH VBG pCO2 VBG pO2 VBG HCO3 VBG O2 Saturation VBG Base Excess Sodium Potassium Chloride Carbon Dioxide Anion Gap BUN Creatinine Estim Creat Clear Calc Estimated GFR POC Glucose 578 H* 548 H* 456 H* Random Glucose Calcium Phosphorus Magnesium Albumin 09/02/23 09/02/23 09/02/23 14:03 15:01 15:41 WBC RBC Hgb Hct MCV MCH MCHC RDW Plt Count MPV Immature Gran % (Auto) Neut % (Auto) Lymph % (Auto) [place] % (Auto) Eos % (Auto) Baso % (Auto) Lymph # (Auto) [place] # (Auto) Eos # (Auto) Baso # (Auto) Abs Immat Gran (auto) Absolute Neuts (auto) Absolute Nucleated RBC Nucleated RBC % (auto) Hold Purple Top VBG pH VBG pCO2 VBG pO2 VBG HCO3 VBG O2 Saturation VBG Base Excess Sodium Potassium Chloride Carbon Dioxide Anion Gap BUN Creatinine Estim Creat Clear Calc Estimated GFR POC Glucose 436 H* 442 H* 410 H* Random Glucose Calcium Phosphorus Magnesium Albumin 09/02/23 09/02/23 09/02/23 17:03 17:59 19:05 WBC RBC Hgb Hct MCV MCH MCHC RDW Plt Count MPV Immature Gran % (Auto) Neut % (Auto) Lymph % (Auto) [place] % (Auto) Eos % (Auto) Baso % (Auto) Lymph # (Auto) [place] # (Auto) Eos # (Auto) Baso # (Auto) Abs Immat Gran (auto) Absolute Neuts (auto) Absolute Nucleated RBC Nucleated RBC % (auto) Hold Purple Top VBG pH VBG pCO2 VBG pO2 VBG HCO3 VBG O2 Saturation VBG Base Excess Sodium Potassium Chloride Carbon Dioxide Anion Gap BUN Creatinine Estim Creat Clear Calc Estimated GFR POC Glucose 333 H 258 H 210 H Random Glucose Calcium Phosphorus Magnesium Albumin 09/02/23 09/02/23 09/02/23 19:16 20:04 23:46 WBC RBC Hgb Hct MCV MCH MCHC RDW Plt Count MPV Immature Gran % (Auto) Neut % (Auto) Lymph % (Auto) [place] % (Auto) Eos % (Auto) Baso % (Auto) Lymph # (Auto) [place] # (Auto) Eos # (Auto) Baso # (Auto) Abs Immat Gran (auto) Absolute Neuts (auto) Absolute Nucleated RBC Nucleated RBC % (auto) Hold Purple Top SEE NOTE VBG pH VBG pCO2 VBG pO2 VBG HCO3 VBG O2 Saturation VBG Base Excess Sodium 139 Potassium 4.9 Chloride 100 Carbon Dioxide 25 Anion Gap 19 BUN 20 H Creatinine 1.00 Estim Creat Clear Calc 81.9 Estimated GFR 58 POC Glucose 148 H 296 H Random Glucose 179 H Calcium 8.9 Phosphorus 3.5 Magnesium 1.8 Albumin 3.3 L 09/03/23 09/03/23 09/03/23 02:05 03:08 04:00 WBC RBC Hgb Hct MCV MCH MCHC RDW Plt Count MPV Immature Gran % (Auto) Neut % (Auto) Lymph % (Auto) [place] % (Auto) Eos % (Auto) Baso % (Auto) Lymph # (Auto) [place] # (Auto) Eos # (Auto) Baso # (Auto) Abs Immat Gran (auto) Absolute Neuts (auto) Absolute Nucleated RBC Nucleated RBC % (auto) Hold Purple Top VBG pH VBG pCO2 VBG pO2 VBG HCO3 VBG O2 Saturation VBG Base Excess Sodium Potassium Chloride Carbon Dioxide Anion Gap BUN Creatinine Estim Creat Clear Calc Estimated GFR POC Glucose 350 H* 315 H 302 H Random Glucose Calcium Phosphorus Magnesium Albumin 09/03/23 09/03/23 09/03/23 04:45 04:47 05:00 WBC 12.2 H RBC 3.65 L D Hgb 9.7 L D Hct 30.6 L D MCV 83.8 MCH 26.6 L MCHC 31.7 RDW 14.0 Plt Count 250 MPV 9.7 Immature Gran % (Auto) 0.4 Neut % (Auto) 83.7 H Lymph % (Auto) 9.8 L [place] % (Auto) 5.1 Eos % (Auto) 0.8 Baso % (Auto) 0.2 Lymph # (Auto) 1.2 [place] # (Auto) 0.6 Eos # (Auto) 0.1 Baso # (Auto) 0.0 Abs Immat Gran (auto) 0.05 H Absolute Neuts (auto) 10.2 H Absolute Nucleated RBC 0.000 Nucleated RBC % (auto) 0.0 Hold Purple Top VBG pH 7.41 VBG pCO2 58 VBG pO2 67 VBG HCO3 37 H VBG O2 Saturation 92.0 VBG Base Excess 11.3 Sodium 137 Potassium 4.4 Chloride 100 Carbon Dioxide 29 Anion Gap 12 BUN 21 H Creatinine 1.02 Estim Creat Clear Calc 80.4 Estimated GFR 57 POC Glucose 286 H Random Glucose 309 H Calcium 8.1 L D Phosphorus 3.6 Magnesium 1.9 Albumin 3.3 L 09/03/23 09/03/23 09/03/23 06:03 07:04 08:15 WBC RBC Hgb Hct MCV MCH MCHC RDW Plt Count MPV Immature Gran % (Auto) Neut % (Auto) Lymph % (Auto) [place] % (Auto) Eos % (Auto) Baso % (Auto) Lymph # (Auto) [place] # (Auto) Eos # (Auto) Baso # (Auto) Abs Immat Gran (auto) Absolute Neuts (auto) Absolute Nucleated RBC Nucleated RBC % (auto) Hold Purple Top VBG pH VBG pCO2 VBG pO2 VBG HCO3 VBG O2 Saturation VBG Base Excess Sodium Potassium Chloride Carbon Dioxide Anion Gap BUN Creatinine Estim Creat Clear Calc Estimated GFR POC Glucose 185 H 152 H 149 H Random Glucose Calcium Phosphorus Magnesium Albumin 09/03/23 09:06 WBC RBC Hgb Hct MCV MCH MCHC RDW Plt Count MPV Immature Gran % (Auto) Neut % (Auto) Lymph % (Auto) [place] % (Auto) Eos % (Auto) Baso % (Auto) Lymph # (Auto) [place] # (Auto) Eos # (Auto) Baso # (Auto) Abs Immat Gran (auto) Absolute Neuts (auto) Absolute Nucleated RBC Nucleated RBC % (auto) Hold Purple Top VBG pH VBG pCO2 VBG pO2 VBG HCO3 VBG O2 Saturation VBG Base Excess Sodium Potassium Chloride Carbon Dioxide Anion Gap BUN Creatinine Estim Creat Clear Calc Estimated GFR POC Glucose 240 H Random Glucose Calcium Phosphorus Magnesium Albumin Microbiology Microbiology Results: Microbiology 09/02/23 05:02 Blood - Venous Blood Culture - Preliminary No growth after 24 hours. 09/01/23 22:11 Blood - Venous Blood Culture - Preliminary No growth after 24 hours. Progress Note: A&P Assessment and plan (1) Morbid obesity: Status: Acute (2) Acute and chronic respiratory failure with hypoxia: Status: Acute (3) Tracheostomy dependent: Status: Acute (4) History of substance abuse: Status: Acute (5) Hyperglycemia due to type 2 diabetes mellitus: Status: Acute (6) Bipolar 1 disorder: Status: Acute Plan Assessment: 52-year-old lady with underlying tracheostomy dependence chronic hypoxic respiratory failure, also obesity/diabetes mellitus admitted with ?asthma exacerbation with hospital course complicated by persistent hyperglycemia requiring insulin drip, now titrated off Plan: Neuro: No acute issues. Cardiac: No acute issues. Pulmonary: Asthma exacerbation appears to have resolved, continue to titrate down to baseline level of FiO2. Underlying tracheostomy dependence. Renal: No acute issues. Endo: Hyperglycemia, likely systemic glucocorticoids induced, titrated off insulin drip to subcutaneous insulin. GI: No acute issues. ID: No acute issues Heme/Onc: No acute issues. Psych: No acute issues. Underlying bipolar disorder continue baseline regimen. Miscellaneous: No acute issues. Prophylaxis: Heparin Diet: Regular Quality Stroke Does the patient have a stroke diagnosis?: No VTE Prior VTE?: No VTE Risk Level:: Medical - moderate - high VTE Device Contraindication: Treatment Not Indicated VTE Drug Contraindication: N/A - Med Ordered
[2023-09-03] MEDS: Insulin Glargine,Hum.rec.anlog 100 UNIT/ML 10 ML VIAL 35 UNIT SUBCUT ×2 (10:01→21:21)
[2023-09-03 10:03] LABS: Glucose, Whole Blood 249 mg/dL (60-115)
[2023-09-03 11:08] LABS: Glucose, Whole Blood 251 mg/dL (60-115)
[2023-09-03 12:18] LABS: Glucose, Whole Blood 259 mg/dL (60-115)
[2023-09-03] MEDS: Insulin Glargine,Hum.rec.anlog 100 UNIT/ML 10 ML VIAL 10 UNIT SUBCUT (12:43)
--- NOTE | 2023-09-03 13:36 | MHC.CM.PN ---
CM MET WITH PT AT BEDSIDE IN ICU. PT LIVES WITH SPOUSE AND HAS 7 HRS/WK BOX CAR BRACER HELP. PT USES [facility]/W/C FOR MOBILITY HAS FX LEFT ANKLE/CAST. PT ALSO HAS TRACH AND SUPPLIES ARE OBTAINED THROUGH [facility]. +HCP ON FILE PCP DR. WELCH DP: GOAL IS HOME WITH RESUMPTION OF FAMILY SUPPORT/BOX CAR BRACER HELP. PT WILL NEED BLS TRANSPORT HOME. CM WILL CONTINUE TO FOLLOW FOR ANY CHANGE TO DC PLAN/NEEDS.
[2023-09-03 16:28] LABS: Glucose, Whole Blood 338 mg/dL (60-115)
[2023-09-03] MEDS: Lurasidone HCl 20 MG TABLET 60 MG PO (20:09)
[2023-09-03] MEDS: Atorvastatin Calcium 10 MG TABLET PO (20:09)
[2023-09-03] MEDS: Escitalopram Oxalate 20 MG TABLET PO (20:09)
[2023-09-03 20:29] LABS: Glucose, Whole Blood 312 mg/dL (60-115)
[2023-09-03] MEDS: traZODone HCL 50 MG TABLET 150 MG PO (21:15)
[2023-09-03] MEDS: Morphine Sulfate 4 MG/ML CARTRIDGE 3 MG IVPUSH (21:17)
[2023-09-04] MEDS: Morphine Sulfate 4 MG/ML CARTRIDGE 3 MG IVPUSH ×4 (01:16→14:22)
[2023-09-04] MEDS: 0.9 % Sodium Chloride Flush 3 ML SYRINGE IVFLUSH ×2 (01:17→08:22)
[2023-09-04 03:54] VITALS: BP 112/66; PULSE 83; RESP 20; TEMP 36.5; O2SAT 92
[2023-09-04] MEDS: guaiFEN/Codeine SF 200/20/10ML 10 ML LIQUID PO (04:02)
[2023-09-04] MEDS: Ibuprofen 400 MG TABLET PO (04:03)
[2023-09-04 06:31] LABS: MANUAL DIFF FLAG NO
[2023-09-04 06:41] LABS: Basophils Percent Auto 0.5 % (0-2); Eosinophils Absolute Auto 0.6 X10*3/uL (0.0-0.4); Eosinophils Percent Auto 7.3 % (0-4); Hematocrit 32.1 % (37.0-47.0); Hemoglobin 9.7 g/dl (12.0-16.0); Imm Gran Abs Auto 0.03 X10*3/uL (0.00-0.03); Imm Gran Pct Auto 0.4 % (0.0-0.4); Lymphocytes Absolute Auto 1.7 X10*3/uL (1.2-4.9); Lymphocytes Percent Auto 21.7 % (20-40); Mean Corpuscular HGB Conc 30.2 g/dl (31.0-35.0); Mean Corpuscular Hemoglobin 26.4 pg (27.0-33.0); Mean Corpuscular Volume 87.2 fL (80.0-98.0); Mean Platelet Volume 9.6 fL (9.4-12.3); Monocytes Absolute Auto 0.6 X10*3/uL (0.1-1.2); Monocytes Percent Auto 7.3 % (2-11); Neutrophils Absolute Auto 4.9 x10*3/uL (2.0-8.3); Neutrophils Percent Auto 62.8 % (45-73); Platelet Count 266 X10*3/uL (160-400); Red Blood Count 3.68 X10*6/uL (4.20-5.50); Red Cell Distribution Width 14.4 % (11.0-16.0); White Blood Count 7.9 X10*3/uL (4.8-10.8)
[2023-09-04 07:12] LABS: Anion Gap 11 (12-20); Blood Urea Nitrogen 20 mg/dL (9-16); Calcium 8.5 mg/dL (8.4-10.2); Carbon Dioxide 33 mmol/L (22-29); Chloride 99 mmol/L (96-108); Creatinine Clr Calc Pharmacy 78.8; Estimated Glomerular Filt Rate 55; Glucose Random 181 mg/dL (60-115); Magnesium 1.9 mg/dL (1.6-2.6); Phosphorus 3.7 mg/dL (2.7-4.5); Potassium 4.8 mmol/L (3.3-5.1); Sodium 138 mmol/L (135-145)
[2023-09-04 07:56] VITALS: PULSE 83; RESP 20; O2SAT 94
[2023-09-04] MEDS: Albuterol/Iprat 2.5/0.5MG 3 ML AMPUL.NEB INHALE (07:56)
[2023-09-04 08:00] VITALS: BP 111/69; PULSE 82; RESP 20; TEMP 36.2; O2SAT 94
[2023-09-04 08:05] LABS: Glucose, Whole Blood 159 mg/dL (60-115)
[2023-09-04] MEDS: Insulin Lispro 100 UNIT/ML 3 ML VIAL SUBCUT (08:21)
[2023-09-04] MEDS: Insulin Glargine,Hum.rec.anlog 100 UNIT/ML 10 ML VIAL 35 UNIT SUBCUT (08:21)
[2023-09-04] MEDS: Famotidine 20 MG TABLET PO (08:22)
[2023-09-04] MEDS: Gabapentin 100 MG CAPSULE PO (08:22)
[2023-09-04] MEDS: OXcarbazepine 300 MG TABLET PO (08:22)
[2023-09-04] MEDS: Apixaban 5 MG TABLET PO (08:22)
[2023-09-04] MEDS: clonazePAM 1 MG TABLET PO (08:22)
--- NOTE | 2023-09-04 10:02 | MHC.CM.PN ---
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 Patient will return home via [facility] (chronic trach that has required suctioning) at 2 PM. EILEEN spoke with /Casimiro @ [phone], who is aware of Patient's return home today at 2PM.
[2023-09-04 10:08] VITALS: RESP 15
--- NOTE | 2023-09-04 10:40 | P.DS_ITS ---
DS: Providers Provider Date of Service: 09/04/23 Date of admission: 09/01/23 23:05 Primary care physician: Megan Cummings MD DS: Diagnosis Discharge Diagnosis (1) Morbid obesity: Status: Acute (2) Acute and chronic respiratory failure with hypoxia: Status: Acute (3) Tracheostomy dependent: Status: Acute (4) History of substance abuse: Status: Acute (5) Hyperglycemia due to type 2 diabetes mellitus: Status: Acute (6) Bipolar 1 disorder: Status: Acute DS: Summary Hospital Course Hospital Course: from initial hpi: 52-year-old female with pertinent history of chronic hypoxemic respiratory failure on trach collar due to asthma, hypertension, insulin-dependent diabetes mellitus, mixed hyperlipidemia, mood disorder, history of PE on Eliquis who presents to the emergency department for evaluation of dyspnea. Patient states symptoms started 3-4 prior to presentation. She has been having cough with intermittent sputum production. Also has been having wheezing and dyspnea. Symptoms have been progressive. No fever or chills. She uses 2 L supplemental oxygen at baseline as needed. No chest discomfort, palpitations, abdominal pain, changes in urinary or bowel habits. No symptoms of choking or coughing with food. Of note, patient was recently admitted with acute on chronic hypoxic respiratory failure due to asthma exacerbation and discharged on 08/20/2023 In the emergency department, patient satting 84% on her home supplemental oxygen and wheezing despite multiple DuoNeb treatments. hospital course: Patient was admitted for acute on chronic hypoxic respiratory failure due to severe persistent asthma with acute decompensation. She was treated with IV steroids and DuoNebs, course was then complicated by diabetes with severe hyperglycemia that was unable to be managed with subcutaneous insulin, patient was transferred to intensive care unit for short course of insulin infusion. Steroids were discontinued and asthma exacerbation and hyperglycemia resolved. Patient is feeling back to baseline will be discharged home. For history of PE was continued on Eliquis. For hyperlipidemia was continue on statin. For mood disorder was continued on Trileptal, trazodone, lurasidone, Klonopin. For obesity weight loss is recommended. Time Attestation Discharge Coordination Time (in mins): 34 Quality: Safe Use of Opioids Does Pt have an Active Cancer Diagnosis on the Problem List?: No Quality: Stroke Does the patient have a stroke diagnosis?: No Physical Exam Vital Signs: Vital Signs: Last Vital Signs Temp 97.2 F 06/23/24 08:00 Pulse 82 09/04/23 08:00 Resp 15 09/04/23 10:08 BP 111/69 09/04/23 08:00 Pulse Ox 94 09/04/23 08:00 O2 Del Method Humidified O2, Tr ach Collar 09/04/23 08:00 O2 Flow Rate 5 09/04/23 08:00 FiO2 35 09/03/23 14:59 Oxygen Flow Rate 4 09/01/23 21:25 BMI result Body Mass Index 34.8 General: AO X 3, no acute distress Resp: CTA bilateral, no accessory muscles used, trache in place CVS: S1,S2,RRR GI: soft, non tender, non distended Neuro: motor grossly intact, alert Psych: appropriate affect, appropriate insight DS: Data Data Completed and Pending Completed studies during hospitalization [Text1]: Procedures Dilation of Left Ureter with Intraluminal Device, Via Natural or Artificial Opening Endoscopic (06/11/21) Fluoroscopy of Left Kidney, Ureter and Bladder (06/11/21) Labs on day of discharge: Laboratory Results - last 24 hr 09/03/23 09/03/23 09/03/23 11:04 12:15 16:21 WBC RBC Hgb Hct MCV MCH MCHC RDW Plt Count MPV Immature Gran % (Auto) Neut % (Auto) Lymph % (Auto) [place] % (Auto) Eos % (Auto) Baso % (Auto) Lymph # (Auto) [place] # (Auto) Eos # (Auto) Baso # (Auto) Abs Immat Gran (auto) Absolute Neuts (auto) Absolute Nucleated RBC Nucleated RBC % (auto) Sodium Potassium Chloride Carbon Dioxide Anion Gap BUN Creatinine Estim Creat Clear Calc Estimated GFR POC Glucose 251 H 259 H 338 H Random Glucose Calcium Phosphorus Magnesium 09/03/23 09/04/23 09/04/23 20:23 06:21 07:12 WBC 7.9 RBC 3.68 L Hgb 9.7 L Hct 32.1 L MCV 87.2 MCH 26.4 L MCHC 30.2 L RDW 14.4 Plt Count 266 MPV 9.6 Immature Gran % (Auto) 0.4 Neut % (Auto) 62.8 Lymph % (Auto) 21.7 [place] % (Auto) 7.3 Eos % (Auto) 7.3 H Baso % (Auto) 0.5 Lymph # (Auto) 1.7 [place] # (Auto) 0.6 Eos # (Auto) 0.6 H Baso # (Auto) 0.0 Abs Immat Gran (auto) 0.03 Absolute Neuts (auto) 4.9 Absolute Nucleated RBC 0.000 Nucleated RBC % (auto) 0.0 Sodium 138 Potassium 4.8 Chloride 99 Carbon Dioxide 33 H Anion Gap 11 L BUN 20 H Creatinine 1.04 Estim Creat Clear Calc 78.8 Estimated GFR 55 POC Glucose 312 H 159 H Random Glucose 181 H Calcium 8.5 Phosphorus 3.7 Magnesium 1.9 Preliminary micro results at discharge 09/02/23 05:02 Blood Culture - Preliminary Blood - Venous No growth after 48 hours. 09/01/23 22:11 Blood Culture - Preliminary Blood - Venous No growth after 48 hours. Discharge Plan Discharge Anticipated Discharge Date/Time: 09/04/23 10:38 Patient Disposition: Home, Self-Care Discharge Diagnosis: asthma, hyperglycemia Referrals: Megan Mosqueda MD [Primary Care Provider] - 1 Week Discharge Medications: Continued insulin glargine [Lantus Solostar U-100 Insulin] 100 unit/mL (3 mL) insulin pen 10 unit subcut DAILY codeine-guaifenesin 10-100 mg/5 mL liquid 10 ml PO Q8H PRN (Reason: cough) diphenhydramine HCl [Benadryl] 25 mg Capsule 25 mg PO TID PRN (Reason: Allergic Symptoms) atorvastatin 10 mg tablet 10 mg PO BEDTIME clonazepam 1 mg tablet 1 mg PO BID oxcarbazepine 300 mg tablet 300 mg PO BID famotidine 20 mg tablet 20 mg PO BID trazodone 150 mg tablet 150 mg PO BEDTIME PRN (Reason: Sleep) gabapentin 100 mg capsule 100 mg PO TID albuterol sulfate [Ventolin HFA] 90 mcg/actuation HFA aerosol inhaler 2 puff inhalation Q4H PRN (Reason: wheezing) fluticasone propionate 50 mcg/actuation spray,suspension 1 spray intranasal DAILY Rx Instructions: INHALE IN BOTH NOSTRILS metformin 500 mg tablet extended release 24 hr 1,000 mg PO BID glipizide 5 mg tablet 5 mg PO DAILY insulin lispro 100 unit/mL insulin pen 1 sliding scale dose subcut TIDAC escitalopram oxalate 20 mg tablet 20 mg PO BEDTIME Eliquis 5 mg tablet 5 mg PO BID lurasidone 60 mg tablet 60 mg PO BEDTIME Discharge Orders: Discharge Order (Routine); Ordered 09/04/23 Ordered By: Ace Cuevas Diet: Diabetic diet Activity on Discharge: As tolerated Stand Alone Forms: Patient Portal Discharge page Print Language: Tamazight Care Plan Goals: recovery Health Concerns: dm, asthma Plan of Treatment: montior sugars Assessment: see above
[2023-09-04 11:35] LABS: Glucose, Whole Blood 177 mg/dL (60-115)
[2023-09-04 12:00] VITALS: BP 131/70; PULSE 82; RESP 16; TEMP 36.2; O2SAT 95
== END 2023-09-04 14:41 | disposition home or self-care (01) | DRG 141 ==
LOC: HO.ED 23:19 → HO.EDOVER 23:43 → HO.S3 09-02 07:20 → HO.IMC 09-02 10:52 → HO.ICU 09-02 15:31 → HO.IMC 09-03 15:19
PROVIDERS: Internal Medicine; Internal Medicine Pulmonary Disease; Registered Nurse Community Health; Admitting Provider Student in an Organized Health Care Education/Training Program; Emergency Provider Emergency Medicine Emergency Medical Services; PCP Internal Medicine; Visit Provider Internal Medicine
DX: J45.51 Severe persistent asthma with (acute) exacerbation (principal); J96.21 Acute and chronic respiratory failure with hypoxia; Z93.0 Tracheostomy status; Z99.81 Dependence on supplemental oxygen; E78.2 Mixed hyperlipidemia; E11.65 Type 2 diabetes mellitus with hyperglycemia; I10 Essential (primary) hypertension; F39 Unspecified mood [affective] disorder; E66.9 Obesity, unspecified; Z68.34 Body mass index [BMI] 34.0-34.9, adult; Z86.711 Personal history of pulmonary embolism; Z20.822 Contact with and (suspected) exposure to COVID-19; Z79.01 Long term (current) use of anticoagulants; Z79.4 Long term (current) use of insulin; Z79.51 Long term (current) use of inhaled steroids; Z79.84 Long term (current) use of oral hypoglycemic drugs; Z79.899 Other long term (current) drug therapy
CPT/HCPCS: 0241U; 36415; 71045; 80048; 80053; 82040; 82803; 82947; 83036; 83605; 83690; 83735; 84100; 84484; 85025; 85730; 87040; 93005; 93306; 94640; 99285; J1170; J1885; J2270; J2919; J7120; P9047; Q9957

== ENCOUNTER → 2023-09-01 22:50 | Outpatient (BNV) | payer OTHER, SELFPAY | PROVIDERS: Admitting Provider Student in an Organized Health Care Education/Training Program; Emergency Provider Emergency Medicine Emergency Medical Services; PCP Internal Medicine; Visit Provider Internal Medicine Cardiovascular Disease | DX: R00.0 Tachycardia, unspecified (principal); R06.02 Shortness of breath | CPT/HCPCS: 93010 ==

== ENCOUNTER 2023-09-01 23:05 | Outpatient (BNV) | payer OTHER, SELFPAY | END 2023-09-02 15:33 | PROVIDERS: Admitting Provider Student in an Organized Health Care Education/Training Program; Emergency Provider Emergency Medicine Emergency Medical Services; PCP Internal Medicine; Visit Provider Internal Medicine Cardiovascular Disease | DX: R06.00 Dyspnea, unspecified (principal) | CPT/HCPCS: 93306 ==

== ENCOUNTER → 2023-09-01 23:05 | Outpatient (BNV) | payer OTHER, SELFPAY | PROVIDERS: Admitting Provider Student in an Organized Health Care Education/Training Program; Emergency Provider Emergency Medicine Emergency Medical Services; PCP Internal Medicine; Visit Provider Internal Medicine Pulmonary Disease | DX: J96.21 Acute and chronic respiratory failure with hypoxia (principal); Z93.0 Tracheostomy status; E11.65 Type 2 diabetes mellitus with hyperglycemia; F19.11 Other psychoactive substance abuse, in remission; Z79.4 Long term (current) use of insulin; F31.9 Bipolar disorder, unspecified | CPT/HCPCS: 99232 ==

== ENCOUNTER → 2023-09-01 23:05 | Outpatient (BNV) | payer OTHER, SELFPAY | PROVIDERS: Admitting Provider Student in an Organized Health Care Education/Training Program; Emergency Provider Emergency Medicine Emergency Medical Services; PCP Internal Medicine; Visit Provider Student in an Organized Health Care Education/Training Program | DX: J45.51 Severe persistent asthma with (acute) exacerbation (principal); J96.21 Acute and chronic respiratory failure with hypoxia; E11.65 Type 2 diabetes mellitus with hyperglycemia | CPT/HCPCS: 99223; 99232; 99239 ==

== ENCOUNTER 2023-09-08 09:03 | Inpatient (IN) | payer OTHER, SELFPAY ==
[2023-09-08] VITALS (9 sets, daily range): BP systolic 101–170; BP diastolic 54–84; PULSE 80–88; RESP 14–20; TEMP 36.3–36.9; O2SAT 89–97; BMI 40.3
--- NOTE | ~2023-09-08 | FL_ITS ---
EXAMINATION: FL SMALL BOWEL SERIES CLINICAL INFORMATION: Small bowel obstruction. Complex surgical history COMPARISON: CT abdomen pelvis 09/08/2023 TECHNIQUE: Following a aviation warfare systems operator image of the abdomen, contrast was administered orally, and interval abdominal radiographs were performed to assess for contrast progression through the small bowel. FINDINGS: Second Chef image of the abdomen demonstrates dilated small bowel loops in the mid abdomen. An IVC filter is present. There is been L4-L5 fusion with disc cages. There is contrast in the urinary bladder. Linear atelectasis present in both lung bases. Moderate fecal residue seen in the right hemicolon. At 3.5 hours, contrast fails to progress beyond the dilated loop just above the right iliac crest. Proximally, there are contrast filled dilated loops of small bowel in the mid abdomen just proximal to the transition point from an adhesion as seen on recent CT scan (Se-7, Im ). FL/FL small bowel follow through IMPRESSION: Small bowel obstruction from adhesion in the right anterior abdomen, likely within the ventral hernia, as seen on recent CT scan.
--- NOTE | ~2023-09-08 | CT_ITS ---
EXAMINATION: CT ABDOMEN AND PELVIS WITH CONTRAST CLINICAL INFORMATION: Abdominal pain status post recent surgery COMPARISON: CT abdomen pelvis 12/21/2022 TECHNIQUE: Multidetector volumetric images were obtained from the superior aspect of the liver through the pubic symphysis following administration 85 mL of Omnipaque 350 intravenous contrast. Sagittal and coronal reformatted images were obtained on the technologist's workstation. Oral contrast: No This CT examination was performed using dose optimization techniques as appropriate, variously including the following: *Automated exposure control *Adjustment of mA and/or kV according to patient size (this includes techniques or standardized protocols for targeted exams where dose is matched to indication/reason for exam; i.e. extremities or head) *Use of iterative reconstruction technique DLP: 1108 mGy-cm FINDINGS: LUNG BASES: There is bibasilar atelectasis LIVER, GALLBLADDER, AND BILIARY TREE: The liver is enlarged measuring 21.4 cm in cephalocaudad dimension with decreased attenuation consistent with hepatic steatosis.. No focal hepatic lesion or biliary ductal dilatation is present. The gallbladder is not seen. PANCREAS: Unremarkable. Some chronic calcifications are seen in the pancreas. SPLEEN: Unremarkable. ADRENAL GLANDS: Unremarkable. KIDNEYS AND URETERS: The kidneys are normal in size, shape, and attenuation. No hydronephrosis, hydroureter, or calculi seen. A benign 2.3 cm right mid renal Bosniak class I renal cyst is noted which requires no additional imaging or follow up. No solid renal masses are seen. No perinephric stranding. BLADDER: Unremarkable. GASTROINTESTINAL TRACT: The stomach and duodenum appear normal. There is dilatation of mid small bowel with marked equalization. The distal small bowel is completely decompressed. A transition zone is not seen with certainty, but appears to be in the right midabdomen anteriorly. Moderate stool remains in the colon. Small amount of fluid is seen in the mesentery as well as in the cul-de-sac. No pneumatosis or free air.. ABDOMINAL WALL: Again seen is a large broad-based abdominal wall hernia with bulging of bowel as well as the left lobe of the liver. This extends from the subxiphoid area down to 6.4 cm above the pubic symphysis. Appearances are unchanged when compared to the 12/21/2022 study. No inguinal hernias. LYMPH NODES: No retroperitoneal lymphadenopathy. VASCULAR: The abdominal aorta appears normal without evidence of aneurysm.IVC filter is present with its tip 5.6 cm below the level of the renal veins with legs extending into both the right common iliac and left common iliac vein. PELVIC VISCERA: An anteverted uterus is present. An IUD appears to be present in the uterus which sits sideways with the long arm appearing discontinuous fragmented, similar to 12/21/2022. OSSEOUS STRUCTURES: Fixation hardware is present with interbody devices at L4-L5. CT/CT abdomen pelvis w IV con IMPRESSION: 1. Small bowel obstruction with transition zone in the right midabdomen. 2. Other incidental findings as described above including enlarged fatty liver, large broad-based abdominal wall hernia, low position of IVC filter, and fragmented IUD. Consider filter removal is no longer necessary. Fleischner guidelines were followed.
--- NOTE | ~2023-09-08 | XR_ITS ---
EXAMINATION: XR ABDOMEN KUB CLINICAL INDICATION: Follow-up small bowel follow-through COMPARISON: None available. TECHNIQUE: AP view of the abdomen. FINDINGS: Contrast has passed through the small bowel and now primarily within the colon. Mildly dilated few small bowel loops suggesting mild partial small bowel obstruction unchanged. IVC filter remain in place. XR/XR KUB IMPRESSION: 1. Contrast has mostly passed through the small bowel into the colon. 2. Few mildly dilated small bowel loops midabdomen suggesting mild partial small bowel obstruction unchanged.
--- NOTE | 2023-09-08 09:12 | ECG_ITS ---
Test Reason : ABD PAIN Blood Pressure : / mmHG Vent. Rate : 084 BPM Atrial Rate : 084 BPM P-R Int : 166 ms QRS Dur : 088 ms QT Int : 380 ms P-R-T Axes : 041 -19 042 degrees QTc Int : 449 ms Normal sinus rhythm Possible Left atrial enlargement Borderline ECG When compared with ECG of 01-SEP-2023 23:44, No significant change was found Referred By: Harley Child Electronically Signed By:LAMBERT DE LA CRUZ MD
--- NOTE | 2023-09-08 09:22 | ED_ITS ---
HPI - General Adult General Chief complaint: Abdominal Pain Stated complaint: ABD PAIN,VOMITING,RECENT SURG PER EMS Time Seen by Provider: 09/08/23 09:06 Source: patient Mode of arrival: ambulatory Limitations: no limitations History of Present Illness ED Provider: Harley Child HPI narrative: 52-year-old female with past medical history of asthma., cardiac arrest now tracheostomy,, obesity, bipolar disorder, diabetes, PE on Eliquis, cholecystectomy, pancreatitis status post pancreatic surgery, recent ankle fracture status post fixation with ortho presented for abdominal pain. Patient states her symptoms started yesterday and worsened throughout the night. She is also endorsing nonbloody nonbilious emesis. She denies fevers, chills, chest pain, shortness of breath, urinary symptoms. Her last bowel movement was yesterday she states it was normal MD complaint: Abdominal pain Onset (ago): day(s) Location: abdomen Radiation: non-radiation Severity: severe Quality: sharp and constant Pain Consistency: constant Associated symptoms: nausea/vomiting Related Data Home Medications ?Medication ?Instructions ?Recorded ?Confirmed albuterol sulfate 90 mcg/actuation 2 puff inhalation Q4H PRN wheezing 02/02/23 09/02/23 aerosol inhaler (Ventolin HFA) apixaban 5 mg tablet (Eliquis) 5 mg PO BID 02/02/23 09/02/23 atorvastatin 10 mg tablet 10 mg PO BEDTIME 02/02/23 09/02/23 clonazepam 1 mg tablet 1 mg PO BID Anxiety 02/02/23 09/02/23 escitalopram oxalate 20 mg tablet 20 mg PO BEDTIME 02/02/23 09/02/23 famotidine 20 mg tablet 20 mg PO BID 02/02/23 09/02/23 fluticasone propionate 50 1 spray intranasal DAILY allergies 02/02/23 09/02/23 mcg/actuation nasal spray,suspension gabapentin 100 mg capsule 100 mg PO TID 02/02/23 09/02/23 glipizide 5 mg tablet 5 mg PO DAILY 02/02/23 09/02/23 insulin lispro 100 unit/mL 1 sliding scale dose subcut TIDAC 02/02/23 09/02/23 subcutaneous pen lurasidone 60 mg tablet 60 mg PO BEDTIME 02/02/23 09/02/23 metformin 500 mg tablet,extended 1,000 mg PO BID 02/02/23 09/02/23 release 24 hr oxcarbazepine 300 mg tablet 300 mg PO BID 02/02/23 09/02/23 trazodone 150 mg tablet 150 mg PO BEDTIME PRN Sleep 02/02/23 09/02/23 insulin glargine 100 unit/mL (3 10 unit subcut DAILY 06/15/23 09/02/23 mL) subcutaneous pen (Lantus Solostar U-100 Insulin) codeine 10 mg-guaifenesin 100 mg/5 10 ml PO Q8H PRN cough 08/18/23 09/02/23 mL oral liquid diphenhydramine HCl 25 mg capsule 25 mg PO TID PRN Allergic Symptoms 08/18/23 09/02/23 (Benadryl) Allergies Allergy/AdvReac Type Severity Reaction Status Date / Time pantoprazole Allergy Mild Redness of Verified 09/08/23 09:15 Skin Review of Systems 2 Review of Systems: Constitutional : No Weight loss, No Fever, No Chills ENT/Mouth : No sore throat, No Rhinorrhea Eyes: No Swelling, No Redness Cardiovascular : No Chest Pain, No SOB, NoEdema Respiratory : No Cough, No Sputum, No Wheezing Gastrointestinal : Positive Nausea, Positive Vomiting, no diarrhea, positive abdominal Pain, No Hematochezia, No Melena Genitourinary : No Dysuria, No Urinary Frequency, No Hematuria, No Urgency Musculoskeletal : No joint pain, No Myalgias, No Joint Swelling Skin : No Skin Lesions, No rash Neuro : No Weakness, No Numbness, No Dizziness, No Headache Psych : No Anxiety/Panic, No Depression All other systems reviewed and are negative. [facility] Past Medical History Attestation statement: The following information was validated with the patient. [facility] Narrative: Patient states that she has had multiple abdominal surgeries Source: old records reviewed Medical History (Updated 09/08/23 @ 13:06 by Harley Child MD) Tracheostomy dependent History of cardiac arrest Wound drainage Takotsubo cardiomyopathy Kidney stones UTI (urinary tract infection) Bipolar 1 disorder Diabetes Asthma Substance abuse Surgical History S/P ureteral stent placement H/O exploratory laparotomy S/P cholecystectomy Family History Family History Mother No pertinent family history Father No pertinent family history Social History Social History Household Members: Significant Other Household Members Other:: 1 Housing: Apartment Do you presently have visiting nurse or other home services: No Alcohol intake: former Comment: stayed in ed Patient Tobacco Use Status: Never used Tobacco Smoked in Last 30 Days: No Second Hand Smoke Exposure: Yes Use of substances other than those prescribed or required for medical reasons: No Advance Directives: Yes Advance Directives on File: Yes Advance Directives Date on File: 02/04/23 Do you have a plan to hurt others: No Plan Patient : No service: No Current occupational status: disabled Physical Exam ED Vital Signs: Vital Signs - 24 hr 09/08/23 09:13 09/08/23 09:29 09/08/23 11:29 Temperature 98.4 F Pulse Rate 84 86 Respiratory Rate 18 20 16 Blood Pressure 156/84 H 124/68 Pulse Oximetry 97 Oxygen Delivery Method Nasal Cannula 09/08/23 12:00 Temperature Pulse Rate Respiratory Rate 18 Blood Pressure Pulse Oximetry Oxygen Delivery Method BMI result Body Mass Index 40.3 Head normocephalic atraumatic, normal S1-S2 regular rate and rhythm, lungs clear auscultation bilaterally, left ankle casted Abdomen exam: periumbilical abdominal graft appreciated; abdomen distended, diffusely tender with guarding and mild rigidity Course Course Course Narrative: Patient arrived to the ED in distress complaining of abdominal pain. I ordered labs, imaging, fluids and analgesics Reevaluation(s) Reevaluation #1: Patient reports improvement in abdominal pain however still in pain Medications Administered Discontinued Medications Generic Name Dose Route Start Last Admin Trade Name Freq PRN Reason Stop Dose Admin Sodium Chloride 1,000 mls @ 999 mls/hr 09/08/23 09:15 09/08/23 10:52 Ns IV 09/08/23 10:15 Infused .Q1H1M RILEY Infusion Lactated Ringer's 500 mls @ 999 mls/hr 09/08/23 10:45 09/08/23 12:06 Lr IV 09/08/23 11:15 Infused .Q31M RILEY Infusion Insulin Human Regular 5 unit 09/08/23 10:45 09/08/23 11:26 Insulin Regular, Human 100 Unit/Ml 10 Ml Vial IVPUSH 09/08/23 10:46 5 unit ONCE ONE Administration Iohexol 100 ml 09/08/23 11:37 09/08/23 11:38 Iohexol 350 Mg/Ml 100 Ml Infus..Btl IV 09/08/23 11:38 85 ml ONCE ONE Administration Morphine Sulfate 4 mg 09/08/23 09:14 09/08/23 09:29 Morphine Sulfate 4 Mg/Ml Cartridge IVPUSH 09/08/23 09:15 4 mg ONCE ONE Administration Protocol Morphine Sulfate 4 mg 09/08/23 11:51 09/08/23 12:00 Morphine Sulfate 4 Mg/Ml Cartridge IVPUSH 09/08/23 11:52 4 mg ONCE ONE Administration Protocol Ondansetron HCl 4 mg 09/08/23 09:11 09/08/23 09:29 Ondansetron Hcl 4 Mg/2 Ml Vial IVPUSH 09/08/23 09:12 4 mg ONCE ONE Administration Zofran, morphine Medical Decision Making Medical Decision Making [facility] Narrative: Given patient's history I am concerned for the following; SBO, pancreatitis, biliary leak, mesenteric ischemia, gastroenteritis, colitis, DKA Lab results show the following; hyperglycemia, mild leukocytosis, elevated beta hydroxybutyrate Patient does not have a lactate, anion gap and is not acidotic. I do not believe this is DKA I ordered fluids and insulin for patient Imaging studies pending Patient signed out to afternoon attending Differential Diagnosis Differential Diagnoses: The differential diagnosis associated with the presentation includes (SBO, pancreatitis, biliary leak, mesenteric ischemia, gastroenteritis, colitis) Less likely ectopic Lab Data 09/08/23 09:22 09/08/23 09:50 Labs: Lab Results 09/08/23 09/08/23 09/08/23 Range/Units 09:22 09:50 09:51 WBC 12.5 H (4.8-10.8) X10*3/uL RBC 4.77 D (4.20-5.50) X10*6/uL Hgb 12.5 D (12.0-16.0) g/dl Hct 39.3 D (37.0-47.0) % MCV 82.4 (80.0-98.0) fL MCH 26.2 L (27.0-33.0) pg MCHC 31.8 (31.0-35.0) g/dl RDW 14.2 (11.0-16.0) % Plt Count 406 H D (160-400) X10*3/uL MPV 9.9 (9.4-12.3) fL Immature Gran % (Auto) 0.8 H (0.0-0.4) % Neut % (Auto) 84.0 H (45-73) % Lymph % (Auto) 6.7 L (20-40) % [place] % (Auto) 4.3 (2-11) % Eos % (Auto) 3.7 (0-4) % Baso % (Auto) 0.5 (0-2) % Lymph # (Auto) 0.8 L (1.2-4.9) X10*3/uL [place] # (Auto) 0.5 (0.1-1.2) X10*3/uL Eos # (Auto) 0.5 H (0.0-0.4) X10*3/uL Baso # (Auto) 0.1 (0.0-0.2) X10*3/uL Abs Immat Gran (auto) 0.10 H (0.00-0.03) X10*3/uL Absolute Neuts (auto) 10.5 H (2.0-8.3) x10*3/uL Absolute Nucleated RBC 0.000 (0.0-0.012) X10*3/uL Nucleated RBC % (auto) 0.0 (0.0-0.2) /100WBC VBG pH 7.45 H (7.32-7.43) VBG pCO2 51 mmHg VBG pO2 68 mmHg VBG HCO3 35 H (22-26) mmol/L VBG O2 Saturation 92.0 % VBG Base Excess 9.9 mmol/L Sodium Cancelled 131 L Potassium Cancelled 4.7 Chloride Cancelled 91 L Carbon Dioxide Cancelled 28 Anion Gap Cancelled 17 BUN Cancelled 14 Creatinine Cancelled 1.17 Estim Creat Clear Calc Cancelled 63.8 Estimated GFR Cancelled 48 POC Glucose (60-115) mg/dL Fasting Glucose Cancelled 436 H* Lactic Acid 0.9 (0.5-2.0) mmol/L Calcium Cancelled 9.4 D Total Bilirubin Cancelled 0.7 Direct Bilirubin Cancelled 0.2 AST Cancelled 12 ALT Cancelled 21 Alkaline Phosphatase Cancelled 199 H Troponin I High Sens (<3.5-17.0) ng/L Total Protein Cancelled 7.3 Albumin Cancelled 3.8 Lipase Cancelled 12 Beta-Hydroxybutyrate 1.16 H (0.02-0.27) mmol/L Beta HCG, Quant < 2 mIU/mL Urine Color Urine Appearance Urine pH (5.0-9.0) Ur Specific [place] (1.005-1.025) Urine Protein (Neg-Trace) mg/dL Urine Glucose (UA) (Negative) mg/dL Urine Ketones (Negative) mg/dL Urine Blood (Negative) Urine Nitrite (Negative) Ur Leukocyte Esterase (Negative) Urine RBC (0-2) /HPF Urine WBC (0-5) /HPF Ur Squamous Epith Cells (0-2) /HPF Urine Bacteria (None Seen) Hyaline Casts (0-2) /LPF Urine Test (NEGATIVE) 09/08/23 09/08/23 09/08/23 Range/Units 10:58 11:32 11:53 WBC (4.8-10.8) X10*3/uL RBC (4.20-5.50) X10*6/uL Hgb (12.0-16.0) g/dl Hct (37.0-47.0) % MCV (80.0-98.0) fL MCH (27.0-33.0) pg MCHC (31.0-35.0) g/dl RDW (11.0-16.0) % Plt Count (160-400) X10*3/uL MPV (9.4-12.3) fL Immature Gran % (Auto) (0.0-0.4) % Neut % (Auto) (45-73) % Lymph % (Auto) (20-40) % [place] % (Auto) (2-11) % Eos % (Auto) (0-4) % Baso % (Auto) (0-2) % Lymph # (Auto) (1.2-4.9) X10*3/uL [place] # (Auto) (0.1-1.2) X10*3/uL Eos # (Auto) (0.0-0.4) X10*3/uL Baso # (Auto) (0.0-0.2) X10*3/uL Abs Immat Gran (auto) (0.00-0.03) X10*3/uL Absolute Neuts (auto) (2.0-8.3) x10*3/uL Absolute Nucleated RBC (0.0-0.012) X10*3/uL Nucleated RBC % (auto) (0.0-0.2) /100WBC VBG pH (7.32-7.43) VBG pCO2 mmHg VBG pO2 mmHg VBG HCO3 (22-26) mmol/L VBG O2 Saturation % VBG Base Excess mmol/L Sodium Potassium Chloride Carbon Dioxide Anion Gap BUN Creatinine Estim Creat Clear Calc Estimated GFR POC Glucose 357 H* (60-115) mg/dL Fasting Glucose Lactic Acid (0.5-2.0) mmol/L Calcium Total Bilirubin Direct Bilirubin AST ALT Alkaline Phosphatase Troponin I High Sens < 2.7 (<3.5-17.0) ng/L Total Protein Albumin Lipase Beta-Hydroxybutyrate (0.02-0.27) mmol/L Beta HCG, Quant mIU/mL Urine Color Yellow Urine Appearance Clear Urine pH 8.0 (5.0-9.0) Ur Specific [place] >= 1.030 H (1.005-1.025) Urine Protein Negative (Neg-Trace) mg/dL Urine Glucose (UA) >=1000 H (Negative) mg/dL Urine Ketones 40 (Negative) mg/dL Urine Blood Negative (Negative) Urine Nitrite Positive H (Negative) Ur Leukocyte Esterase Trace H (Negative) Urine RBC 0-2 (0-2) /HPF Urine WBC 11-20 H (0-5) /HPF Ur Squamous Epith Cells 6-10 (0-2) /HPF Urine Bacteria 4+ (None Seen) Hyaline Casts 0-2 (0-2) /LPF Urine Test NEGATIVE (NEGATIVE) Discharge Plan Discharge Clinical Impression: Abdominal pain Patient Disposition: Still a Patient Prescriptions: No Action insulin glargine [Lantus Solostar U-100 Insulin] 100 unit/mL (3 mL) insulin pen 10 unit subcut DAILY codeine-guaifenesin 10-100 mg/5 mL liquid 10 ml PO Q8H PRN (Reason: cough) diphenhydramine HCl [Benadryl] 25 mg Capsule 25 mg PO TID PRN (Reason: Allergic Symptoms) atorvastatin 10 mg tablet 10 mg PO BEDTIME clonazepam 1 mg tablet 1 mg PO BID oxcarbazepine 300 mg tablet 300 mg PO BID famotidine 20 mg tablet 20 mg PO BID trazodone 150 mg tablet 150 mg PO BEDTIME PRN (Reason: Sleep) gabapentin 100 mg capsule 100 mg PO TID albuterol sulfate [Ventolin HFA] 90 mcg/actuation HFA aerosol inhaler 2 puff inhalation Q4H PRN (Reason: wheezing) fluticasone propionate 50 mcg/actuation spray,suspension 1 spray intranasal DAILY Rx Instructions: INHALE IN BOTH NOSTRILS metformin 500 mg tablet extended release 24 hr 1,000 mg PO BID glipizide 5 mg tablet 5 mg PO DAILY insulin lispro 100 unit/mL insulin pen 1 sliding scale dose subcut TIDAC escitalopram oxalate 20 mg tablet 20 mg PO BEDTIME Eliquis 5 mg tablet 5 mg PO BID lurasidone 60 mg tablet 60 mg PO BEDTIME Print Language: Georgian
[2023-09-08 09:27] LABS: MANUAL DIFF FLAG NO
[2023-09-08] MEDS: ondansetron HCL 4 MG/2 ML VIAL IVPUSH ×2 (09:29→14:38)
[2023-09-08] MEDS: Morphine Sulfate 4 MG/ML CARTRIDGE IVPUSH ×2 (09:29→12:00)
[2023-09-08 09:30] LABS: Basophils Absolute Auto 0.1 X10*3/uL (0.0-0.2); Basophils Percent Auto 0.5 % (0-2); Eosinophils Absolute Auto 0.5 X10*3/uL (0.0-0.4); Eosinophils Percent Auto 3.7 % (0-4); Hematocrit 39.3 % (37.0-47.0); Hemoglobin 12.5 g/dl (12.0-16.0); Imm Gran Pct Auto 0.8 % (0.0-0.4); Lymphocytes Absolute Auto 0.8 X10*3/uL (1.2-4.9); Lymphocytes Percent Auto 6.7 % (20-40); Mean Corpuscular HGB Conc 31.8 g/dl (31.0-35.0); Mean Corpuscular Hemoglobin 26.2 pg (27.0-33.0); Mean Corpuscular Volume 82.4 fL (80.0-98.0); Mean Platelet Volume 9.9 fL (9.4-12.3); Monocytes Absolute Auto 0.5 X10*3/uL (0.1-1.2); Monocytes Percent Auto 4.3 % (2-11); Neutrophils Absolute Auto 10.5 x10*3/uL (2.0-8.3); Platelet Count 406 X10*3/uL (160-400); Red Blood Count 4.77 X10*6/uL (4.20-5.50); Red Cell Distribution Width 14.2 % (11.0-16.0); White Blood Count 12.5 X10*3/uL (4.8-10.8)
[2023-09-08] MEDS: 0.9 % Sodium Chloride 1,000 ML 999 ML IV ×2 (09:30→14:40)
[2023-09-08 09:42] LABS: Lactic Acid 0.9 mmol/L (0.5-2.0)
[2023-09-08 09:59] LABS: VBG Base Excess 9.9 mmol/L; VBG HCO3 35 mmol/L (22-26); VBG pCO2 51 mmHg; VBG pH 7.45 (7.32-7.43); VBG pO2 68 mmHg
[2023-09-08 10:04] LABS: Venous Blood Gas Refer to POC result
[2023-09-08 10:14] LABS: Beta-Hydroxybutyrate 1.16 mmol/L (0.02-0.27)
[2023-09-08 10:18] LABS: Alanine Aminotransferase 21 U/L (0-31); Albumin Level 3.8 g/dL (3.5-5.0); Alkaline Phosphatase 199 U/L (39-117); Anion Gap 17 (12-20); Aspartate Amino Transferase 12 U/L (5-31); Bilirubin Direct 0.2 mg/dL (0.0-0.5); Bilirubin Total 0.7 mg/dL (0.0-1.0); Blood Urea Nitrogen 14 mg/dL (9-16); Calcium 9.4 mg/dL (8.4-10.2); Carbon Dioxide 28 mmol/L (22-29); Chloride 91 mmol/L (96-108); Creatinine Clr Calc Pharmacy 63.8; Estimated Glomerular Filt Rate 48; Glucose Fasting 436 mg/dL (60-99); Lipase 12 U/L (8-78); Potassium 4.7 mmol/L (3.3-5.1); Sodium 131 mmol/L (135-145); Total Protein 7.3 g/dL (6.5-8.0)
[2023-09-08 10:21] LABS: HCG Quantitative < 2 mIU/mL
[2023-09-08 11:02] LABS: Glucose, Whole Blood 357 mg/dL (60-115)
[2023-09-08] MEDS: Insulin Regular, Human 100 UNIT/ML 10 ML VIAL IVPUSH (11:26)
[2023-09-08] MEDS: Lactated Ringers 500 ML 999 ML IV (11:29)
[2023-09-08] MEDS: iohexoL 350 MG/ML 100 ML INFUS..BTL IV (11:38)
[2023-09-08 11:39] LABS: Appearance Urine Clear; Color Urine Yellow; Glucose Urine UA >=1000 mg/dL (Negative); Leukocyte Esterase Urine Trace (Negative); Nitrite Urine Positive (Negative); Specific Gravity - Urine >= 1.030 (1.005-1.025); UMIC TRIGGER UACC YES; Urine Blood Negative (Negative); Urine Ketones 40 mg/dL (Negative); Urine Protein Negative (Neg-Trace)
[2023-09-08 11:41] LABS: UPreg QC Valid YES; Urine Pregnancy NEGATIVE (NEGATIVE)
[2023-09-08 11:43] LABS: Bacteria Urine 4+ (None Seen); Hyaline Casts Urine 0-2 /LPF (0-2); RBC Urine 0-2 /HPF (0-2); UACC Culture Trigger YES
[2023-09-08 12:21] LABS: Troponin-I High Sensitivity < 2.7 ng/L (<3.5-17.0)
[2023-09-08 13:22] LABS: Glucose, Whole Blood 325 mg/dL (60-115)
[2023-09-08] MEDS: HYDROmorphone HCl 0.5 MG/0.5 ML SYRINGE IVPUSH ×3 (14:39→21:32)
--- NOTE | 2023-09-08 15:38 | PM.HPGS ---
History of Present Illness History of Present Illness Date of Service: 09/08/23 Chief complaint: small-bowel obstruction Narrative: Anna Marie Black is a 52 year old female presenting with complaints of abdominal pain, abdominal distention, nausea and vomiting. The pain began during the night and proceeded the nausea and vomiting. 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 She has a large ventral hernia with loss of domain of her bowel. She has a tracheostomy in place as well. Workup in the emergency department revealed a mildly elevated WBC. CT abdomen and pelvis revealed evidence of a partial small-bowel obstruction with no clear transition point. She has admitted to the surgical service for further management of the small-bowel obstruction. She reports having difficulty with NG tube placement in the past and would prefer to avoid this if possible. Review of Systems Review of Systems: Yes all other systems are reviewed and are negative Constitutional: Constitutional: Denies chills, Denies fever(s), Denies headache(s), Reports poor appetite and Denies weakness ENT: Denies headache(s) Cardiovascular: Cardiovascular: Denies chest pain, Denies irregular heart rhythm, Denies palpitations and Reports dyspnea Respiratory: Respiratory: Denies cough, Denies excessive phlegm production and Reports dyspnea Gastrointestinal: Gastrointestinal: Reports abdominal pain, Reports bloating, Denies change in bowel habits, Denies constipation, Denies heartburn, Denies diarrhea, Reports nausea and Reports vomiting Genitourinary: Genitourinary: Denies urinary frequency Musculoskeletal: Musculoskeletal: Denies back pain, Denies muscle weakness and Denies numbness Integumentary/Breasts: Skin/Breast: Denies changing lesions and Denies unusual bruising Neurologic: Denies headache(s), Denies numbness, Denies paresthesias and Denies weakness Psychiatric: Psychiatric: Denies anxiety and Denies depression Endocrine: Endocrine: Denies palpitations Hematologic/Lymphatic: Hematologic/Lymphatic: Denies lymphadenopathy [facility] Past Medical History Medical History (Updated 09/08/23 @ 15:44 by Alen Freedman MD) Tracheostomy dependent History of cardiac arrest Wound drainage Takotsubo cardiomyopathy Kidney stones UTI (urinary tract infection) Bipolar 1 disorder Diabetes Asthma Substance abuse Family History Family History Mother No pertinent family history Father No pertinent family history Surgical History Surgical History S/P ureteral stent placement H/O exploratory laparotomy S/P cholecystectomy Social History Social History Household Members: Significant Other Household Members Other:: 1 Housing: Apartment Do you presently have visiting nurse or other home services: No Alcohol intake: former Comment: stayed in ed Patient Tobacco Use Status: Never used Tobacco Second Hand Smoke Exposure: Yes Advance Directives Date on File: 02/04/23 service: No Current occupational status: disabled Meds Allergies Allergy/AdvReac Type Severity Reaction Status Date / Time pantoprazole Allergy Mild Redness of Verified 09/08/23 09:15 Skin Active Medications: Current Medications Calcium Carbonate (Calcium Carbonate 750 Mg Tab.Chew) 750 mg PO Q4H PRN PRN Reason: Heartburn Lactated Ringer's (Lr) 1,000 mls @ 125 mls/hr IVCONT .Q8H [facility] Acetaminophen (Ofirmev) 1,000 mg in 100 mls @ 400 mls/hr IV Q6H [facility] Stop: 09/09/23 09:44 Magnesium Hydroxide (Milk Of Magnesia 30 Ml Oral.Susp) 30 ml PO DAILY PRN PRN Reason: Constipation Melatonin (Melatonin 3 Mg Tablet) 6 mg PO BEDTIME PRN PRN Reason: Insomnia Morphine Sulfate (Morphine Sulfate 4 Mg/Ml Cartridge) 4 mg IVPUSH Q4H PRN; Protocol PRN Reason: Pain, Severe (Pain Scale 7-10) Ondansetron HCl (Ondansetron Hcl 4 Mg/2 Ml Vial) 4 mg IVPUSH Q8H PRN PRN Reason: Nausea and Vomiting Sodium Chloride (0.9 % Sodium Chloride Flush 3 Ml Syringe) 3 ml IVFLUSH QSHIFT [facility] Home Medications ?Medication ?Instructions ?Recorded ?Confirmed ?Last Taken ?Type albuterol sulfate 90 mcg/actuation 2 puff inhalation Q4H PRN wheezing 02/02/23 09/02/23 09/01/23 06:00 History aerosol inhaler (Ventolin HFA) apixaban 5 mg tablet (Eliquis) 5 mg PO BID 02/02/23 09/02/23 09/01/23 06:00 History atorvastatin 10 mg tablet 10 mg PO BEDTIME 02/02/23 09/02/23 09/01/23 06:00 History clonazepam 1 mg tablet 1 mg PO BID Anxiety 02/02/23 09/02/23 09/01/23 06:00 History escitalopram oxalate 20 mg tablet 20 mg PO BEDTIME 02/02/23 09/02/23 09/01/23 06:00 History famotidine 20 mg tablet 20 mg PO BID 02/02/23 09/02/23 09/01/23 06:00 History fluticasone propionate 50 1 spray intranasal DAILY allergies 02/02/23 09/02/23 09/01/23 06:00 History mcg/actuation nasal spray,suspension gabapentin 100 mg capsule 100 mg PO TID 02/02/23 09/02/23 09/01/23 06:00 History glipizide 5 mg tablet 5 mg PO DAILY 02/02/23 09/02/23 09/01/23 06:00 History insulin lispro 100 unit/mL 1 sliding scale dose subcut TIDAC 02/02/23 09/02/23 09/01/23 06:00 History subcutaneous pen lurasidone 60 mg tablet 60 mg PO BEDTIME 02/02/23 09/02/23 09/01/23 06:00 History metformin 500 mg tablet,extended 1,000 mg PO BID 02/02/23 09/02/23 09/01/23 06:00 History release 24 hr oxcarbazepine 300 mg tablet 300 mg PO BID 02/02/23 09/02/23 09/01/23 06:00 History trazodone 150 mg tablet 150 mg PO BEDTIME PRN Sleep 02/02/23 09/02/23 09/01/23 06:00 History insulin glargine 100 unit/mL (3 10 unit subcut DAILY 06/15/23 09/02/23 09/01/23 06:00 History mL) subcutaneous pen (Lantus Solostar U-100 Insulin) codeine 10 mg-guaifenesin 100 mg/5 10 ml PO Q8H PRN cough 08/18/23 09/02/23 09/01/23 06:00 History mL oral liquid diphenhydramine HCl 25 mg capsule 25 mg PO TID PRN Allergic Symptoms 08/18/23 09/02/23 09/01/23 06:00 History (Benadryl) Physical Exam Vital Signs: Vital Signs: Last Vital Signs Temp 97.9 F 09/08/23 13:18 Pulse 88 09/08/23 14:38 Resp 16 09/08/23 14:39 BP 170/80 H 09/08/23 14:38 Pulse Ox 93 09/08/23 14:38 O2 Del Method Room Air 09/08/23 14:38 O2 Flow Rate 4 09/08/23 13:18 Oxygen Flow Rate 4 09/08/23 09:13 BMI result Body Mass Index 40.3 Const: General: no acute distress Nutritional Appearance: obese Orientation/consciousness: patient oriented x3 Limitations: no limitations HEENT: Head: Yes normocephalic and Yes atraumatic Ears: hearing grossly normal bilaterally Neck: Other: Tracheostomy in place Resp: Effort & Inspection: normal respiratory effort, no audible wheezes, no cough and no respiratory distress Cardio: Jugular venous distension: no JVD GI: Other: Obese abdomen, large ventral hernia, mildly distended, tenderness to deep palpation without rebound or guarding. Large skin graft with palpable bowel below skin. Visible peristalsis noted below skin graft. Inspection: Yes normal to inspection Palpation (GI): Hernia present Percussion: Yes dullness to percussion Rectal Exam - Female: deferred Skin: Other: Warm, dry, no rash General skin exam: no rashes or lesions noted Neuro: General: patient oriented x3 Extrem: General: Yes no clubbing, cyanosis or edema Results Results Labs: Short CBC 09/08/23 Range/Units 09:22 WBC 12.5 H (4.8-10.8) X10*3/uL Hgb 12.5 D (12.0-16.0) g/dl Hct 39.3 D (37.0-47.0) % Plt Count 406 H D (160-400) X10*3/uL BMP 09/08/23 09/08/23 09:22 09:50 Sodium Cancelled 131 L Potassium Cancelled 4.7 Chloride Cancelled 91 L Carbon Dioxide Cancelled 28 BUN Cancelled 14 Creatinine Cancelled 1.17 Calcium Cancelled 9.4 D Liver Function 09/08/23 09/08/23 Range/Units 09:22 09:50 Total Bilirubin Cancelled 0.7 Direct Bilirubin Cancelled 0.2 AST Cancelled 12 ALT Cancelled 21 Alkaline Phosphatase Cancelled 199 H Albumin Cancelled 3.8 Urine 09/08/23 Range/Units 11:32 Urine Color Yellow Urine Appearance Clear Urine pH 8.0 (5.0-9.0) Ur Specific [place] >= 1.030 H (1.005-1.025) Urine Protein Negative (Neg-Trace) mg/dL Urine Glucose (UA) >=1000 H (Negative) mg/dL Urine Test NEGATIVE (NEGATIVE) Assessment and Plan (1) Abdominal pain: Qualifiers: Abdominal location: generalized Qualified Code(s): R10.84 - Generalized abdominal pain Status: Acute (2) Partial small bowel obstruction: Status: Acute Plan 52-year-old female patient presenting with a past medical history of numerous abdominal surgeries for necrotizing pancreatitis now with complaints of abdominal pain, nausea and vomiting. Workup revealed dilated loops of small bowel suggestive of a partial small-bowel obstruction. She did have a bowel movement as recently as yesterday and does not appear to be completely obstructed. The patient has extensive scar tissue and a large ventral hernia making an abdominal exploration extremely difficult and unwise. I recommended a period of bowel rest ideally with nasogastric tube decompression. Patient has requested to avoid nasogastric tube due to past experience. We will keep her NPO with IV fluid hydration. If she has not improved tomorrow a contrasted study will be requested. Patient expressed understanding and agrees with the plan. Hospitalist consultation will be obtained for management of her multiple medical issues including diabetes, asthma, and a cardiac issues (she was recently discharged from the hospitalist team last week. ). Quality Stroke Does the patient have a stroke diagnosis?: No VTE Prior VTE?: Yes VTE Risk Level:: Surgical - high VTE Device Contraindication: N/A - Device Ordered VTE Drug Contraindication: N/A - Med Ordered Procedures Date of Service Date of Service: 09/08/23
[2023-09-08] MEDS: Acetaminophen 1,000 MG/100 ML PIGGYBACK 400 MG IV ×2 (15:51→21:32)
[2023-09-08] MEDS: 0.9 % Sodium Chloride Flush 3 ML SYRINGE IVFLUSH (16:58)
[2023-09-08] MEDS: Lactated Ringers 1,000 ML 125 ML IVCONT (16:59)
[2023-09-08 18:01] LABS: Glucose, Whole Blood 335 mg/dL (60-115)
--- NOTE | 2023-09-08 18:08 | P.CONHOSP_ITS ---
History of Present Illness Data of Consult Service Date: 09/08/23 Primary Care Provider: Megan Cummings MD [facility] Reason for consult: Medical management Patient is a 52-year-old female with a PMH significant for chronic hypoxemic respiratory failure on trach collar due to asthma, hx of PE on Eliquis, HTN, HLD, insulin-dependent type 2 diabetes, bipolar disorder, cholecystectomy, hx of necrotizing pancreatitis, and recent ankle fracture s/p ankle fixation who presented to the ED complaining abdominal pain and distention, nausea and vomiting x2 days. Workup in the ED revealed CT of abdomen and pelvis showed likely partial small bowel obstruction with no clear transition point. Patient was admitted to the hospital under general surgery services and hospitalist consult placed for medical management. Patient currently reports pain well- controlled on current regimen. Some mild nausea, no vomiting since earlier this morning in the ED. denies any other acute medical complaints. No chest pain/pressure, palpitations. Denies shortness of breath or difficulty breathing. No fever, chills. Review of Systems 2 Review of Systems: Abdominal pain Nausea, no vomiting Denies shortness of breath or difficulty breathing No chest pain/pressure, palpitations Denies fever, chills PMFSH Medical History Tracheostomy dependent History of cardiac arrest Wound drainage Takotsubo cardiomyopathy Kidney stones UTI (urinary tract infection) Bipolar 1 disorder Diabetes Asthma Substance abuse Family History Mother No pertinent family history Father No pertinent family history Surgical History S/P ureteral stent placement H/O exploratory laparotomy S/P cholecystectomy Social History Household Members: Spouse Household Members Other:: 1 Housing: Apartment Do you presently have visiting nurse or other home services: Yes ([employer] 7H/week) Alcohol intake: former Comment: stayed in ed Patient Tobacco Use Status: Never used Tobacco Second Hand Smoke Exposure: Yes Advance Directives Date on File: 02/04/23 service: No Current occupational status: disabled Meds Allergies Allergy/AdvReac Type Severity Reaction Status Date / Time pantoprazole Allergy Mild Redness of Verified 09/08/23 09:15 Skin Active Medications: Current Medications Calcium Carbonate (Calcium Carbonate 750 Mg Tab.Chew) 750 mg PO Q4H PRN PRN Reason: Heartburn Glucose (Glucose Gel 15 Gm Gel..Gram.) 15 gm PO Q15M PRN; Protocol PRN Reason: per Hypoglycemia Standing Ord. Hydromorphone HCl (Hydromorphone Hcl 0.5 Mg/0.5 Ml Syringe) 0.5 mg IVPUSH Q3H PRN; Protocol PRN Reason: Pain, Severe (Pain Scale 7-10) Lactated Ringer's (Lr) 1,000 mls @ 125 mls/hr IVCONT .Q8H [facility] Last Admin: 09/08/23 16:59 Dose: 125 mls/hr Acetaminophen (Ofirmev) 1,000 mg in 100 mls @ 400 mls/hr IV Q6H [facility] Stop: 09/09/23 09:44 Last Infusion: 09/08/23 16:26 Dose: Infused Dextrose (D10) 250 mls @ 750 mls/hr IV Q15M PRN; Protocol PRN Reason: per Hypoglycemia Standing Ord. Insulin Human Lispro (Insulin Lispro 100 Unit/Ml 3 Ml Vial) 0 unit SUBCUT QIDACHS [facility]; Protocol Magnesium Hydroxide (Milk Of Magnesia 30 Ml Oral.Susp) 30 ml PO DAILY PRN PRN Reason: Constipation Melatonin (Melatonin 3 Mg Tablet) 6 mg PO BEDTIME PRN PRN Reason: Insomnia Ondansetron HCl (Ondansetron Hcl 4 Mg/2 Ml Vial) 4 mg IVPUSH Q8H PRN PRN Reason: Nausea and Vomiting Sodium Chloride (0.9 % Sodium Chloride Flush 3 Ml Syringe) 3 ml IVFLUSH QSHIFT [facility] Last Admin: 09/08/23 16:58 Dose: 3 ml Home Medications ?Medication ?Instructions ?Recorded ?Confirmed ?Last Taken ?Type albuterol sulfate 90 mcg/actuation 2 puff inhalation Q4H PRN wheezing 02/02/23 09/08/23 09/07/23 20:00 History aerosol inhaler (Ventolin HFA) atorvastatin 10 mg tablet 10 mg PO BEDTIME 02/02/23 09/08/23 09/07/23 20:00 History clonazepam 1 mg tablet 1 mg PO BID Anxiety 02/02/23 09/08/23 09/07/23 20:00 History escitalopram oxalate 20 mg tablet 20 mg PO BEDTIME 02/02/23 09/08/23 09/07/23 20:00 History famotidine 20 mg tablet 20 mg PO BID 02/02/23 09/08/23 09/07/23 20:00 History fluticasone propionate 50 1 spray intranasal DAILY allergies 02/02/23 09/08/23 09/07/23 20:00 History mcg/actuation nasal spray,suspension gabapentin 100 mg capsule 100 mg PO TID 02/02/23 09/08/23 09/07/23 20:00 History glipizide 5 mg tablet 5 mg PO DAILY 02/02/23 09/08/23 09/07/23 20:00 History insulin lispro 100 unit/mL 1 sliding scale dose subcut TIDAC 02/02/23 09/08/23 09/07/23 20:00 History subcutaneous pen lurasidone 60 mg tablet 60 mg PO BEDTIME 02/02/23 09/08/23 09/07/23 20:00 History metformin 500 mg tablet,extended 1,000 mg PO BID 02/02/23 09/08/23 09/07/23 20:00 History release 24 hr oxcarbazepine 300 mg tablet 300 mg PO BID 02/02/23 09/08/23 09/07/23 20:00 History trazodone 150 mg tablet 150 mg PO BEDTIME PRN Sleep 02/02/23 09/08/23 09/07/23 20:00 History insulin glargine 100 unit/mL (3 12 unit subcut DAILY 06/15/23 09/08/23 09/07/23 20:00 History mL) subcutaneous pen (Lantus Solostar U-100 Insulin) codeine 10 mg-guaifenesin 100 mg/5 10 ml PO Q8H PRN cough 08/18/23 09/08/23 09/07/23 20:00 History mL oral liquid diphenhydramine HCl 25 mg capsule 50 mg PO DAILY PRN Allergic 08/18/23 09/08/23 09/07/23 20:00 History (Benadryl) Symptoms ibuprofen 200 mg tablet 200 mg PO Q8H PRN Pain 09/08/23 09/08/23 Unknown History Physical Exam 2 Vital Signs and Narrative: Vital Signs: Last Vital Signs Temp 97.4 F 09/08/23 17:31 Pulse 80 09/08/23 17:31 Resp 18 09/08/23 17:31 BP 114/54 L 09/08/23 17:31 Pulse Ox 97 09/08/23 17:31 O2 Del Method Nasal Cannula 09/08/23 17:31 O2 Flow Rate 6 09/08/23 17:31 Oxygen Flow Rate 4 09/08/23 09:13 BMI result Body Mass Index 40.3 General: AOx3, no acute distress Resp: Diffuse wheezing bilaterally CVS: S1, S2, RRR GI: +BS, mild distention, diffusely tender Skin: Warm, dry Neuro: Cranial nerves II-XII grossly intact bilaterally. Motor grossly intact bilaterally Extremities: No edema Psych: Appropriate affect Results Labs 09/08/23 09:22 09/08/23 09:50 Labs: Laboratory Results - last 24 hr 09/08/23 09/08/23 09/08/23 09:22 09:50 09:51 MCV 82.4 MCH 26.2 L MCHC 31.8 RDW 14.2 Plt Count 406 H D MPV 9.9 Immature Gran % (Auto) 0.8 H Neut % (Auto) 84.0 H Lymph % (Auto) 6.7 L Stephens % (Auto) 4.3 Eos % (Auto) 3.7 Baso % (Auto) 0.5 Lymph # (Auto) 0.8 L Stephens # (Auto) 0.5 Eos # (Auto) 0.5 H Baso # (Auto) 0.1 Abs Immat Gran (auto) 0.10 H Absolute Neuts (auto) 10.5 H Absolute Nucleated RBC 0.000 Nucleated RBC % (auto) 0.0 VBG pH 7.45 H VBG pCO2 51 VBG pO2 68 VBG HCO3 35 H VBG O2 Saturation 92.0 VBG Base Excess 9.9 Anion Gap Cancelled 17 Estim Creat Clear Calc Cancelled 63.8 Estimated GFR Cancelled 48 POC Glucose Fasting Glucose Cancelled 436 H* Lactic Acid 0.9 Calcium Cancelled 9.4 D Total Bilirubin Cancelled 0.7 Direct Bilirubin Cancelled 0.2 AST Cancelled 12 ALT Cancelled 21 Alkaline Phosphatase Cancelled 199 H Troponin I High Sens Total Protein Cancelled 7.3 Albumin Cancelled 3.8 Lipase Cancelled 12 Beta-Hydroxybutyrate 1.16 H Beta HCG, Quant < 2 Urine Color Urine Appearance Urine pH Ur Specific [place] Urine Protein Urine Glucose (UA) Urine Ketones Urine Blood Urine Nitrite Ur Leukocyte Esterase Urine RBC Urine WBC Ur Squamous Epith Cells Urine Bacteria Hyaline Casts Urine Test 09/08/23 09/08/23 09/08/23 10:58 11:32 11:53 MCV MCH MCHC RDW Plt Count MPV Immature Gran % (Auto) Neut % (Auto) Lymph % (Auto) Stephens % (Auto) Eos % (Auto) Baso % (Auto) Lymph # (Auto) Stephens # (Auto) Eos # (Auto) Baso # (Auto) Abs Immat Gran (auto) Absolute Neuts (auto) Absolute Nucleated RBC Nucleated RBC % (auto) VBG pH VBG pCO2 VBG pO2 VBG HCO3 VBG O2 Saturation VBG Base Excess Anion Gap Estim Creat Clear Calc Estimated GFR POC Glucose 357 H* Fasting Glucose Lactic Acid Calcium Total Bilirubin Direct Bilirubin AST ALT Alkaline Phosphatase Troponin I High Sens < 2.7 Total Protein Albumin Lipase Beta-Hydroxybutyrate Beta HCG, Quant Urine Color Yellow Urine Appearance Clear Urine pH 8.0 Ur Specific [place] >= 1.030 H Urine Protein Negative Urine Glucose (UA) >=1000 H Urine Ketones 40 Urine Blood Negative Urine Nitrite Positive H Ur Leukocyte Esterase Trace H Urine RBC 0-2 Urine WBC 11-20 H Ur Squamous Epith Cells 6-10 Urine Bacteria 4+ Hyaline Casts 0-2 Urine Test NEGATIVE 09/08/23 09/08/23 13:18 17:55 MCV MCH MCHC RDW Plt Count MPV Immature Gran % (Auto) Neut % (Auto) Lymph % (Auto) Stephens % (Auto) Eos % (Auto) Baso % (Auto) Lymph # (Auto) Stephens # (Auto) Eos # (Auto) Baso # (Auto) Abs Immat Gran (auto) Absolute Neuts (auto) Absolute Nucleated RBC Nucleated RBC % (auto) VBG pH VBG pCO2 VBG pO2 VBG HCO3 VBG O2 Saturation VBG Base Excess Anion Gap Estim Creat Clear Calc Estimated GFR POC Glucose 325 H 335 H Fasting Glucose Lactic Acid Calcium Total Bilirubin Direct Bilirubin AST ALT Alkaline Phosphatase Troponin I High Sens Total Protein Albumin Lipase Beta-Hydroxybutyrate Beta HCG, Quant Urine Color Urine Appearance Urine pH Ur Specific [place] Urine Protein Urine Glucose (UA) Urine Ketones Urine Blood Urine Nitrite Ur Leukocyte Esterase Urine RBC Urine WBC Ur Squamous Epith Cells Urine Bacteria Hyaline Casts Urine Test Imaging Radiologist's Impressions: Impressions Abdomen/Pelvis CT 09/08/23 11:39 IMPRESSION: 1. Small bowel obstruction with transition zone in the right midabdomen. 2. Other incidental findings as described above including enlarged fatty liver, large broad-based abdominal wall hernia, low position of IVC filter, and fragmented IUD. Consider filter removal is no longer necessary. Fleischner guidelines were followed. Assessment and Plan (1) Partial small bowel obstruction: Status: Acute Patient is a 52-year-old female with a PMH significant for chronic hypoxemic respiratory failure on trach collar due to asthma, hx of PE on Eliquis, HTN, HLD, insulin-dependent type 2 diabetes, bipolar disorder, cholecystectomy, hx of necrotizing pancreatitis, and recent ankle fracture s/p ankle fixation who presented to the ED complaining abdominal pain and distention, nausea and vomiting x2 days. Workup in the ED revealed CT of abdomen and pelvis showed likely partial small bowel obstruction with no clear transition point. Patient was admitted to the hospital under general surgery services and hospitalist consult placed for medical management. Partial small bowel obstruction Plan as per General surgery Hx of PE Hold Eliquis in anticipation of possible surgical intervention DVT prophylaxis with Lovenox Insulin-dependent type 2 diabetes Will hold metformin, glipizide Will place on sliding scale insulin with reduced coverage due to being NPO Continue Lantus at 50% dose due to being NPO COPD Not in acute exacerbation Continue home inhalers DuoNebs p.r.n. for wheezing/shortness of breath HLD Continue statin Mood disorder Continue clonazepam, escitalopram, lurasidone, and oxcarbazepine Thank you for allowing us to participate in the care of this patient. Will continue to follow along with you.
[2023-09-08] MEDS: Insulin Lispro 100 UNIT/ML 3 ML VIAL SUBCUT ×2 (18:45→23:47)
--- NOTE | 2023-09-08 18:47 | PC.NURSE ---
Pt POC 335 upon admission to the floor. NPO. Per Glenna Moreau 4 units lispro administered.
--- NOTE | 2023-09-08 19:22 | PHA.MEDREC ---
Pharmacy Consult ? Medication Reconciliation Pharmacy has completed the medication reconciliation. Confirmed medications with patient. She confirmed that she was taking Lantus Solostar 12 units daily and Insulin Lispro 1 Sliding Scale TIDAC.
[2023-09-08] MEDS: Enoxaparin Sodium 40 MG/0.4 ML SYRINGE SUBCUT (20:47)
[2023-09-08] MEDS: Lurasidone HCl 20 MG TABLET 60 MG PO (20:48)
[2023-09-08] MEDS: clonazePAM 1 MG TABLET PO (20:48)
[2023-09-08] MEDS: Escitalopram Oxalate 20 MG TABLET PO (20:48)
[2023-09-08] MEDS: OXcarbazepine 300 MG TABLET PO (20:48)
[2023-09-08] MEDS: Atorvastatin Calcium 10 MG TABLET PO (20:48)
[2023-09-08] MEDS: Famotidine 20 MG TABLET PO (20:48)
[2023-09-08] MEDS: Gabapentin 100 MG CAPSULE PO (20:48)
[2023-09-08] MEDS: traZODone HCL 50 MG TABLET 150 MG PO (22:02)
[2023-09-08 23:44] LABS: Glucose, Whole Blood 265 mg/dL (60-115)
[2023-09-09] MEDS: Acetaminophen 1,000 MG/100 ML PIGGYBACK 400 MG IV ×2 (03:14→08:31)
[2023-09-09 03:32] VITALS: BP 122/66; PULSE 68; RESP 16; TEMP 36; O2SAT 98
[2023-09-09] MEDS: HYDROmorphone HCl 0.5 MG/0.5 ML SYRINGE IVPUSH ×5 (03:57→21:29)
[2023-09-09 06:09] LABS: Glucose, Whole Blood 179 mg/dL (60-115)
[2023-09-09] MEDS: Insulin Lispro 100 UNIT/ML 3 ML VIAL SUBCUT ×3 (06:18→18:33)
--- NOTE | 2023-09-09 07:41 | PM.PNGS ---
Subjective Subjective Date of Service: 09/09/23 <Kerri Guzman PA-C - Last Filed: 09/09/23 07:44> 09/09/23 <Alen Freedman MD - Last Filed: 09/09/23 08:35> Interval history: Feels unchanged, reports continued pain and bloating. No flatus. <Kerri Guzman PA-C - Last Filed: 09/09/23 07:44> Physical Exam Vital Signs: Vital Signs: Last Vital Signs Temp 96.8 F 09/09/23 03:32 Pulse 68 09/09/23 03:32 Resp 16 09/09/23 03:32 BP 122/66 09/09/23 03:32 Pulse Ox 98 09/09/23 03:32 O2 Del Method Nasal Cannula 09/09/23 03:32 O2 Flow Rate 4.5 09/09/23 03:32 Oxygen Flow Rate 4 09/08/23 09:13 BMI result Body Mass Index 40.3 <Kerri Guzman PA-C - Last Filed: 09/09/23 07:44> Const: General: comfortable, no acute distress and alert <Kerri Guzman PA-C - Last Filed: 09/09/23 07:44> Orientation/consciousness: patient oriented x3 <Kerri Guzman PA-C - Last Filed: 09/09/23 07:44> Resp: Effort & Inspection: normal respiratory effort <Kerri Guzman PA-C - Last Filed: 09/09/23 07:44> GI: Inspection: Yes distended <Kerri Guzman PA-C - Last Filed: 09/09/23 07:44> Palpation (GI): Soft to palpation, Tenderness to palpation present (GI) (mild diffuse) and no guarding <Kerri Guzman PA-C - Last Filed: 09/09/23 07:44> Neuro: General: patient oriented x3 <ALBINO Velasquez Last Filed: 09/09/23 07:44> Objective Data Active Medications Albuterol Sulfate (Albuterol Sulfate 90 Mcg 8 Gm Inhaler) 2 puff INHALE Q4H PRN PRN Reason: wheezing Albuterol/Ipratropium (Albuterol/Iprat 2.5/0.5mg 3 Ml Ampul.Neb) 3 ml INHALE RQ4H WHILE AWAKE PRN PRN Reason: Shortness of Breath/Wheezing Atorvastatin Calcium (Atorvastatin Calcium 10 Mg Tablet) 10 mg PO BEDTIME [facility] Last Admin: 09/08/23 20:48 Dose: 10 mg Documented By: ANDI Calcium Carbonate (Calcium Carbonate 750 Mg Tab.Chew) 750 mg PO Q4H PRN PRN Reason: Heartburn Clonazepam (Clonazepam 1 Mg Tablet) 1 mg PO BID [facility] Last Admin: 09/08/23 20:48 Dose: 1 mg Documented By: ANDI Diphenhydramine HCl (Diphenhydramine Hcl 25 Mg Capsule) 50 mg PO DAILY PRN PRN Reason: Allergic Symptoms Enoxaparin Sodium (Enoxaparin Sodium 40 Mg/0.4 Ml Syringe) 40 mg SUBCUT Q24H [facility] Last Admin: 09/08/23 20:47 Dose: 40 mg Documented By: ANDI Escitalopram Oxalate (Escitalopram Oxalate 20 Mg Tablet) 20 mg PO BEDTIME [facility] Last Admin: 09/08/23 20:48 Dose: 20 mg Documented By: ANDI Famotidine (Famotidine 20 Mg Tablet) 20 mg PO BID [facility] Last Admin: 09/08/23 20:48 Dose: 20 mg Documented By: ANDI Fluticasone Propionate (Fluticasone Propionate Nasal 16 Gm [place]) 1 spray NOSTRIL-B DAILY [facility] Gabapentin (Gabapentin 100 Mg Capsule) 100 mg PO TID [facility] Last Admin: 09/08/23 20:48 Dose: 100 mg Documented By: ANDI Glucose (Glucose Gel 15 Gm Gel..Gram.) 15 gm PO Q15M PRN; Protocol PRN Reason: per Hypoglycemia Standing Ord. Guaifenesin/Codeine Phosphate (Guaifen/Codeine Sf 200/20/10ml 10 Ml Liquid) 10 ml PO Q8H PRN PRN Reason: cough Hydromorphone HCl (Hydromorphone Hcl 0.5 Mg/0.5 Ml Syringe) 0.5 mg IVPUSH Q3H PRN; Protocol PRN Reason: Pain, Severe (Pain Scale 7-10) Last Admin: 09/09/23 03:57 Dose: 0.5 mg Documented By: BRADY Lactated Ringer's (Lr) 1,000 mls @ 125 mls/hr IVCONT .Q8H [facility] Last Admin: 09/09/23 06:18 Dose: Not Given Documented By: BRADY Non-Admin Reason: IV Running Acetaminophen (Ofirmev) 1,000 mg in 100 mls @ 400 mls/hr IV Q6H [facility] Stop: 09/09/23 09:44 Last Infusion: 09/09/23 03:34 Dose: Infused Documented By: BRADY Dextrose (D10) 250 mls @ 750 mls/hr IV Q15M PRN; Protocol PRN Reason: per Hypoglycemia Standing Ord. Insulin Glargine (Insulin Glargine,Hum.Rec.Anlog 100 Unit/Ml 10 Ml Vial) 6 unit SUBCUT DAILY [facility] Insulin Human Lispro (Insulin Lispro 100 Unit/Ml 3 Ml Vial) 0 unit SUBCUT Q6H [facility]; Protocol Last Admin: 09/09/23 06:18 Dose: 1 unit Documented By: BRADY Lurasidone HCl (Lurasidone Hcl 20 Mg Tablet) 60 mg PO BEDTIME [facility] Last Admin: 09/08/23 20:48 Dose: 60 mg Documented By: ANDI Magnesium Hydroxide (Milk Of Magnesia 30 Ml Oral.Susp) 30 ml PO DAILY PRN PRN Reason: Constipation Melatonin (Melatonin 3 Mg Tablet) 6 mg PO BEDTIME PRN PRN Reason: Insomnia Ondansetron HCl (Ondansetron Hcl 4 Mg/2 Ml Vial) 4 mg IVPUSH Q8H PRN PRN Reason: Nausea and Vomiting Oxcarbazepine (Oxcarbazepine 300 Mg Tablet) 300 mg PO BID [facility] Last Admin: 09/08/23 20:48 Dose: 300 mg Documented By: ANDI Sodium Chloride (0.9 % Sodium Chloride Flush 3 Ml Syringe) 3 ml IVFLUSH QSHIFT [facility] Last Admin: 09/09/23 00:35 Dose: Not Given Documented By: ANDI Non-Admin Reason: IV Running Trazodone HCl (Trazodone Hcl 50 Mg Tablet) 150 mg PO BEDTIME PRN PRN Reason: Sleep Last Admin: 09/08/23 22:02 Dose: 150 mg Documented By: ANDI Bhattau, PA-C - Last Filed: 09/09/23 07:44> Labs CBC & Chem 7: 09/08/23 09:22 09/08/23 09:50 <Kerri Guzman PA-C - Last Filed: 09/09/23 07:44> Labs: Laboratory Results - last 24 hr 09/08/23 09/08/23 09/08/23 09:22 09:50 09:51 MCV 82.4 MCH 26.2 L MCHC 31.8 RDW 14.2 Plt Count 406 H D MPV 9.9 Immature Gran % (Auto) 0.8 H Neut % (Auto) 84.0 H Lymph % (Auto) 6.7 L Love % (Auto) 4.3 Eos % (Auto) 3.7 Baso % (Auto) 0.5 Lymph # (Auto) 0.8 L Love # (Auto) 0.5 Eos # (Auto) 0.5 H Baso # (Auto) 0.1 Abs Immat Gran (auto) 0.10 H Absolute Neuts (auto) 10.5 H Absolute Nucleated RBC 0.000 Nucleated RBC % (auto) 0.0 VBG pH 7.45 H VBG pCO2 51 VBG pO2 68 VBG HCO3 35 H VBG O2 Saturation 92.0 VBG Base Excess 9.9 Anion Gap Cancelled 17 Estim Creat Clear Calc Cancelled 63.8 Estimated GFR Cancelled 48 POC Glucose Fasting Glucose Cancelled 436 H* Lactic Acid 0.9 Calcium Cancelled 9.4 D Total Bilirubin Cancelled 0.7 Direct Bilirubin Cancelled 0.2 AST Cancelled 12 ALT Cancelled 21 Alkaline Phosphatase Cancelled 199 H Troponin I High Sens Total Protein Cancelled 7.3 Albumin Cancelled 3.8 Lipase Cancelled 12 Beta-Hydroxybutyrate 1.16 H Beta HCG, Quant < 2 Urine Color Urine Appearance Urine pH Ur Specific [place] Urine Protein Urine Glucose (UA) Urine Ketones Urine Blood Urine Nitrite Ur Leukocyte Esterase Urine RBC Urine WBC Ur Squamous Epith Cells Urine Bacteria Hyaline Casts Urine Test 09/08/23 09/08/23 09/08/23 10:58 11:32 11:53 MCV MCH MCHC RDW Plt Count MPV Immature Gran % (Auto) Neut % (Auto) Lymph % (Auto) Love % (Auto) Eos % (Auto) Baso % (Auto) Lymph # (Auto) Love # (Auto) Eos # (Auto) Baso # (Auto) Abs Immat Gran (auto) Absolute Neuts (auto) Absolute Nucleated RBC Nucleated RBC % (auto) VBG pH VBG pCO2 VBG pO2 VBG HCO3 VBG O2 Saturation VBG Base Excess Anion Gap Estim Creat Clear Calc Estimated GFR POC Glucose 357 H* Fasting Glucose Lactic Acid Calcium Total Bilirubin Direct Bilirubin AST ALT Alkaline Phosphatase Troponin I High Sens < 2.7 Total Protein Albumin Lipase Beta-Hydroxybutyrate Beta HCG, Quant Urine Color Yellow Urine Appearance Clear Urine pH 8.0 Ur Specific [place] >= 1.030 H Urine Protein Negative Urine Glucose (UA) >=1000 H Urine Ketones 40 Urine Blood Negative Urine Nitrite Positive H Ur Leukocyte Esterase Trace H Urine RBC 0-2 Urine WBC 11-20 H Ur Squamous Epith Cells 6-10 Urine Bacteria 4+ Hyaline Casts 0-2 Urine Test NEGATIVE 09/08/23 09/08/23 09/08/23 13:18 17:55 23:39 MCV MCH MCHC RDW Plt Count MPV Immature Gran % (Auto) Neut % (Auto) Lymph % (Auto) Love % (Auto) Eos % (Auto) Baso % (Auto) Lymph # (Auto) Love # (Auto) Eos # (Auto) Baso # (Auto) Abs Immat Gran (auto) Absolute Neuts (auto) Absolute Nucleated RBC Nucleated RBC % (auto) VBG pH VBG pCO2 VBG pO2 VBG HCO3 VBG O2 Saturation VBG Base Excess Anion Gap Estim Creat Clear Calc Estimated GFR POC Glucose 325 H 335 H 265 H Fasting Glucose Lactic Acid Calcium Total Bilirubin Direct Bilirubin AST ALT Alkaline Phosphatase Troponin I High Sens Total Protein Albumin Lipase Beta-Hydroxybutyrate Beta HCG, Quant Urine Color Urine Appearance Urine pH Ur Specific [place] Urine Protein Urine Glucose (UA) Urine Ketones Urine Blood Urine Nitrite Ur Leukocyte Esterase Urine RBC Urine WBC Ur Squamous Epith Cells Urine Bacteria Hyaline Casts Urine Test 09/09/23 06:05 MCV MCH MCHC RDW Plt Count MPV Immature Gran % (Auto) Neut % (Auto) Lymph % (Auto) Love % (Auto) Eos % (Auto) Baso % (Auto) Lymph # (Auto) Love # (Auto) Eos # (Auto) Baso # (Auto) Abs Immat Gran (auto) Absolute Neuts (auto) Absolute Nucleated RBC Nucleated RBC % (auto) VBG pH VBG pCO2 VBG pO2 VBG HCO3 VBG O2 Saturation VBG Base Excess Anion Gap Estim Creat Clear Calc Estimated GFR POC Glucose 179 H Fasting Glucose Lactic Acid Calcium Total Bilirubin Direct Bilirubin AST ALT Alkaline Phosphatase Troponin I High Sens Total Protein Albumin Lipase Beta-Hydroxybutyrate Beta HCG, Quant Urine Color Urine Appearance Urine pH Ur Specific [place] Urine Protein Urine Glucose (UA) Urine Ketones Urine Blood Urine Nitrite Ur Leukocyte Esterase Urine RBC Urine WBC Ur Squamous Epith Cells Urine Bacteria Hyaline Casts Urine Test <Kerri Guzman PA-C - Last Filed: 09/09/23 07:44> Procedures Date of Service Date of Service: 09/09/23 <Kerri Guzman PA-C - Last Filed: 09/09/23 07:44> 09/09/23 <Alen Freedman MD - Last Filed: 09/09/23 08:35> Progress Note: A&P Assessment and plan (1) Partial small bowel obstruction: Status: Acute <Kerri Guzman PA-C - Last Filed: 09/09/23 07:44> Assessment and Plan: No significant improvement in symptoms. Will obtain SBFT today. Encouraged OOB and ambulation today to encourage GI function. <Kerri Guzman PA-C - Last Filed: 09/09/23 07:44> No significant improvement in symptoms. Will obtain SBFT today. Encouraged OOB and ambulation today to encourage GI function. Agree with the above assessment and plan. Patient continues to have abdominal distention and tenderness. No flatus or BM. <Alen Freedman MD - Last Filed: 09/09/23 08:35> Time Spent With Patient Time: Total time managing care of this patient today ____ minutes. <Kerri Guzman PA-C - Last Filed: 09/09/23 07:44> Quality Stroke Does the patient have a stroke diagnosis?: No <Kerri Guzman PA-C - Last Filed: 09/09/23 07:44> VTE Prior VTE?: Yes <Kerri Guzman PA-C - Last Filed: 09/09/23 07:44> VTE Risk Level:: Surgical - high <Kerri Guzman PA-C - Last Filed: 09/09/23 07:44> VTE Device Contraindication: N/A - Device Ordered <ALBINO Velasquez Last Filed: 09/09/23 07:44> VTE Drug Contraindication: N/A - Med Ordered <Kerri Guzman PA-C - Last Filed: 09/09/23 07:44>
[2023-09-09 08:00] VITALS: BP 123/65; PULSE 79; RESP 18; TEMP 36; O2SAT 95
[2023-09-09] MEDS: Insulin Glargine,Hum.rec.anlog 100 UNIT/ML 10 ML VIAL 6 UNIT SUBCUT (08:32)
[2023-09-09] MEDS: OXcarbazepine 300 MG TABLET PO ×2 (08:33→20:20)
[2023-09-09] MEDS: Famotidine 20 MG TABLET PO ×2 (08:33→20:20)
[2023-09-09] MEDS: Gabapentin 100 MG CAPSULE PO ×3 (08:33→20:20)
[2023-09-09] MEDS: clonazePAM 1 MG TABLET PO ×2 (08:33→20:20)
[2023-09-09] MEDS: Fluticasone Propionate Nasal 16 GM SPRAY 1 SPRAY NOSTRIL-B (08:37)
[2023-09-09] MEDS: Albuterol/Iprat 2.5/0.5MG 3 ML AMPUL.NEB INHALE (09:16)
[2023-09-09 09:17] VITALS: PULSE 66; RESP 14; O2SAT 94
--- NOTE | 2023-09-09 09:45 | MHC.CM.NN ---
CM ATTEMPTED TO MEET W/PT HOWEVER PT NOT IN RM/BR, CM TO REVISIT.
[2023-09-09 12:19] LABS: Glucose, Whole Blood 252 mg/dL (60-115)
[2023-09-09 12:59] LABS: Anion Gap 13 (12-20); Blood Urea Nitrogen 12 mg/dL (9-16); Calcium 8.8 mg/dL (8.4-10.2); Carbon Dioxide 30 mmol/L (22-29); Chloride 96 mmol/L (96-108); Estimated Glomerular Filt Rate 50; Glucose Random 272 mg/dL (60-115); Potassium 4.6 mmol/L (3.3-5.1); Sodium 134 mmol/L (135-145)
--- NOTE | 2023-09-09 14:31 | P.PNIM_ITS ---
Subjective Subjective Date of Service: 09/09/23 Interval History: Complaining of persistent abdominal pain and nausea, no vomiting, denies flatus, no bowel movement. Requesting for pain meds. Review of Systems All other system reviewed and are negative. Physical Exam 2 Vital Signs: Vital Signs: Last Vital Signs Temp 96.8 F 09/09/23 08:00 Pulse 66 09/09/23 09:17 Resp 14 09/09/23 09:17 BP 123/65 09/09/23 08:00 Pulse Ox 95 09/09/23 08:00 O2 Del Method Nasal Cannula 09/09/23 08:00 O2 Flow Rate 4 09/09/23 08:00 Oxygen Flow Rate 4 09/08/23 09:13 BMI result Body Mass Index 40.3 Const: Other: General: AOx3, no acute distress Neck positive trach Resp: Bilateral expiratory wheeze CVS: S1, S2, RRR GI: Soft mid abdominal tenderness to palpation , bowel sounds audible Skin: Warm, dry Neuro: Non focal Extremities: No edema Psych: Appropriate affect Objective Data Active Medications Albuterol Sulfate (Albuterol Sulfate 90 Mcg 8 Gm Inhaler) 2 puff INHALE Q4H PRN PRN Reason: wheezing Albuterol/Ipratropium (Albuterol/Iprat 2.5/0.5mg 3 Ml Ampul.Neb) 3 ml INHALE RQ4H WHILE AWAKE PRN PRN Reason: Shortness of Breath/Wheezing Last Admin: 09/09/23 09:16 Dose: 3 ml Documented By: LUDIN Atorvastatin Calcium (Atorvastatin Calcium 10 Mg Tablet) 10 mg PO BEDTIME [facility]S [facility]CLUDE 234 BEDS AT THE [facility] Last Admin: 09/08/23 20:48 Dose: 10 mg Documented By: MARLARISAmanuel Calcium Carbonate (Calcium Carbonate 750 Mg Tab.Chew) 750 mg PO Q4H PRN PRN Reason: Heartburn Clonazepam (Clonazepam 1 Mg Tablet) 1 mg PO BID [facility]S [facility]CLUDE 234 BEDS AT THE [facility] Last Admin: 09/09/23 08:33 Dose: 1 mg Documented By: BRADY Diphenhydramine HCl (Diphenhydramine Hcl 25 Mg Capsule) 50 mg PO DAILY PRN PRN Reason: Allergic Symptoms Enoxaparin Sodium (Enoxaparin Sodium 40 Mg/0.4 Ml Syringe) 40 mg SUBCUT Q24H COUNTS [facility]CLUDE 234 BEDS AT THE [facility] Last Admin: 09/08/23 20:47 Dose: 40 mg Documented By: ANDI Escitalopram Oxalate (Escitalopram Oxalate 20 Mg Tablet) 20 mg PO BEDTIME COUNTS INCLUDE 234 BEDS AT THE [facility] Last Admin: 09/08/23 20:48 Dose: 20 mg Documented By: ANDI Famotidine (Famotidine 20 Mg Tablet) 20 mg PO BID [facility]S [facility]CLUDE 234 BEDS AT THE [facility] Last Admin: 09/09/23 08:33 Dose: 20 mg Documented By: BRADY Fluticasone Propionate (Fluticasone Propionate Nasal 16 Gm [place]) 1 spray NOSTRIL-B DAILY [facility]S [facility]CLUDE 234 BEDS AT [facility] Last Admin: 09/09/23 08:37 Dose: 1 spray Documented By: BRADY Gabapentin (Gabapentin 100 Mg Capsule) 100 mg PO TID [facility]S [facility]CLUDE 234 BEDS AT [facility] Last Admin: 09/09/23 08:33 Dose: 100 mg Documented By: BRADY Glucose (Glucose Gel 15 Gm Gel..Gram.) 15 gm PO Q15M PRN; Protocol PRN Reason: per Hypoglycemia Standing Ord. Guaifenesin/Codeine Phosphate (Guaifen/Codeine Sf 200/20/10ml 10 Ml Liquid) 10 ml PO Q8H PRN PRN Reason: cough Hydromorphone HCl (Hydromorphone Hcl 0.5 Mg/0.5 Ml Syringe) 0.5 mg IVPUSH Q3H PRN; Protocol PRN Reason: Pain, Severe (Pain Scale 7-10) Last Admin: 09/09/23 12:29 Dose: 0.5 mg Documented By: DAYSI Lactated Ringer's (Lr) 1,000 mls @ 125 mls/hr IVCONT .Q8H COUNTS INCLUDE 234 BEDS AT THE [facility] Last Admin: 09/09/23 06:18 Dose: Not Given Documented By: BRADY Non-Admin Reason: IV Running Dextrose (D10) 250 mls @ 750 mls/hr IV Q15M PRN; Protocol PRN Reason: per Hypoglycemia Standing Ord. Insulin Glargine (Insulin Glargine,Hum.Rec.Anlog 100 Unit/Ml 10 Ml Vial) 6 unit SUBCUT DAILY [facility]S INCLUDE 234 BEDS AT THE [facility] Last Admin: 09/09/23 08:32 Dose: 6 unit Documented By: BRADY Insulin Human Lispro (Insulin Lispro 100 Unit/Ml 3 Ml Vial) 0 unit SUBCUT Q6H [facility]S [facility]CLUDE 234 BEDS AT THE [facility]; Protocol Last Admin: 09/09/23 12:28 Dose: 3 unit Documented By: DAYSI Lurasidone HCl (Lurasidone Hcl 20 Mg Tablet) 60 mg PO BEDTIME [facility]S INCLUDE 234 BEDS AT THE [facility] Last Admin: 09/08/23 20:48 Dose: 60 mg Documented By: ANDI Magnesium Hydroxide (Milk Of Magnesia 30 Ml Oral.Susp) 30 ml PO DAILY PRN PRN Reason: Constipation Melatonin (Melatonin 3 Mg Tablet) 6 mg PO BEDTIME PRN PRN Reason: Insomnia Ondansetron HCl (Ondansetron Hcl 4 Mg/2 Ml Vial) 4 mg IVPUSH Q8H PRN PRN Reason: Nausea and Vomiting Oxcarbazepine (Oxcarbazepine 300 Mg Tablet) 300 mg PO BID COUNTS INCLUDE 234 BEDS AT THE [facility] Last Admin: 09/09/23 08:33 Dose: 300 mg Documented By: BRADY Sodium Chloride (0.9 % Sodium Chloride Flush 3 Ml Syringe) 3 ml IVFLUSH QSHIFT COUNTS INCLUDE 234 BEDS AT THE [facility] Last Admin: 09/09/23 08:38 Dose: Not Given Documented By: BRADY Non-Admin Reason: IV Running Trazodone HCl (Trazodone Hcl 50 Mg Tablet) 150 mg PO BEDTIME PRN PRN Reason: Sleep Last Admin: 09/08/23 22:02 Dose: 150 mg Documented By: ANDI Labs 09/08/23 09:22 09/09/23 12:21 Labs: Laboratory Results - last 24 hr 09/08/23 09/08/23 09/09/23 17:55 23:39 06:05 Anion Gap Estim Creat Clear Calc Estimated GFR POC Glucose 335 H 265 H 179 H Random Glucose Calcium 09/09/23 09/09/23 12:15 12:21 Anion Gap 13 Estim Creat Clear Calc 66.0 Estimated GFR 50 POC Glucose 252 H Random Glucose 272 H Calcium 8.8 D Microbiology Microbiology Results: Microbiology 09/08/23 Unknown Urine Culture - Preliminary Urine clean catch - Urine guerra top Culture in progress. Assessment and Plan (1) Partial small bowel obstruction: Status: Acute (2) Abdominal pain: Status: Acute Plan 52-year-old female with a PMH significant for chronic hypoxemic respiratory failure on trach collar due to asthma, hx of PE on Eliquis, HTN, HLD, insulin- dependent type 2 diabetes, bipolar disorder, cholecystectomy, hx of necrotizing pancreatitis, and recent ankle fracture s/p ankle fixation who presented to the ED complaining abdominal pain and distention, nausea and vomiting x2 days. Workup in the ED revealed CT of abdomen and pelvis showed likely partial small bowel obstruction with no clear transition point. Patient was admitted to the hospital under general surgery services and hospitalist consult placed for medical management. Partial small bowel obstruction Abdominal pain improving undergoing small-bowel series cont. analgesics and bowel rest. Hx of PE > 6 months Hold Eliquis in anticipation of possible surgical intervention, resume once cleared by surgery Insulin-dependent type 2 diabetes hold metformin, glipizide Continue sliding scale insulin with reduced coverage due to being NPO Continue Lantus at 50% dose due to being NPO COPD Not in acute exacerbation Continue home inhalers DuoNebs p.r.n. for wheezing/shortness of breath HLD Continue statin Mood disorder Continue clonazepam, escitalopram, lurasidone, and oxcarbazepine Will sign of, please re-consult with acute medical issue. Quality Stroke Does the patient have a stroke diagnosis?: No VTE Prior VTE?: Yes VTE Risk Level:: Surgical - high VTE Device Contraindication: N/A - Device Ordered VTE Drug Contraindication: N/A - Med Ordered
--- NOTE | 2023-09-09 15:19 | MHC.CM.PN ---
EMR REVIEWED, PT W/SBO, CM MET W/PT WHO REPORTS SHE LIVES W/, USES A WALKER D/T L ANKLE FX, HAS CHRONIC TRACH W/AEROSOL/SUCTION W/SUPPLIES THROUGH [facility]. PT IS NOT ON HOME O2. PT HAS 7 [employer] HRS/[facility]. PT'S GOAL IS TO REURN HOME W/RESUMP OF [employer] HRS. PCP/HCP ON FILE VERIFIED. PT WILL NEED BLS TRANSPORT
[2023-09-09 15:34] VITALS: BP 120/66; PULSE 78; RESP 20; TEMP 36.6; O2SAT 98
[2023-09-09] MEDS: Lactated Ringers 1,000 ML 125 ML IVCONT (15:41)
[2023-09-09] MEDS: Promethazine HCL 25 MG/ML VIAL 12.5 MG IM (17:29)
[2023-09-09 17:31] LABS: Glucose, Whole Blood 182 mg/dL (60-115)
[2023-09-09 19:37] VITALS: BP 117/59; PULSE 79; RESP 18; TEMP 36.8; O2SAT 95
[2023-09-09] MEDS: Enoxaparin Sodium 40 MG/0.4 ML SYRINGE SUBCUT (20:19)
[2023-09-09] MEDS: Lurasidone HCl 20 MG TABLET 60 MG PO (20:19)
[2023-09-09] MEDS: Escitalopram Oxalate 20 MG TABLET PO (20:20)
[2023-09-09] MEDS: Atorvastatin Calcium 10 MG TABLET PO (20:20)
[2023-09-09] MEDS: traZODone HCL 50 MG TABLET 150 MG PO (21:30)
[2023-09-10] MEDS: Lactated Ringers 1,000 ML 125 ML IVCONT ×2 (00:22→08:00)
[2023-09-10] MEDS: HYDROmorphone HCl 0.5 MG/0.5 ML SYRINGE IVPUSH ×7 (00:22→20:13)
[2023-09-10 00:29] LABS: Glucose, Whole Blood 139 mg/dL (60-115)
[2023-09-10] MEDS: Promethazine HCL 25 MG/ML VIAL 12.5 MG IM ×2 (00:30→11:35)
--- NOTE | 2023-09-10 00:52 | PC.NURSE ---
Pt seen on bed alert and oriented, still endorsing 7-8/10 mid abd pain, sharp in nature, not time for prn Dilaudid yet, Dr. Ma was made aware, Toradol was ordered but p[t refused, pt preferred and waited for prn dilaudid and given, slept after, assisted tot he BR, left lower leg casted and intact, + CMS.
[2023-09-10 03:07] VITALS: BP 118/62; PULSE 83; RESP 16; TEMP 36; O2SAT 98
[2023-09-10 06:26] LABS: Glucose, Whole Blood 152 mg/dL (60-115)
[2023-09-10] MEDS: Insulin Lispro 100 UNIT/ML 3 ML VIAL SUBCUT ×3 (06:27→18:42)
[2023-09-10 07:16] VITALS: BP 120/62; PULSE 83; RESP 18; TEMP 36.4; O2SAT 97
[2023-09-10] MEDS: clonazePAM 1 MG TABLET PO ×2 (08:03→20:12)
[2023-09-10] MEDS: OXcarbazepine 300 MG TABLET PO ×2 (08:04→20:12)
[2023-09-10] MEDS: Gabapentin 100 MG CAPSULE PO ×3 (08:04→20:13)
[2023-09-10] MEDS: Fluticasone Propionate Nasal 16 GM SPRAY 1 SPRAY NOSTRIL-B (08:04)
[2023-09-10] MEDS: Famotidine 20 MG TABLET PO ×2 (08:04→20:12)
[2023-09-10] MEDS: Insulin Glargine,Hum.rec.anlog 100 UNIT/ML 10 ML VIAL 6 UNIT SUBCUT (08:46)
[2023-09-10 11:51] LABS: Glucose, Whole Blood 160 mg/dL (60-115)
--- NOTE | 2023-09-10 14:27 | PM.PNGS ---
Subjective Subjective Date of Service: 09/10/23 Interval history: Patient's abdominal symptoms are much improved. She is passing flatus and copious amounts of stool. She has tolerated a clear to full liquid diet and is currently advanced to a solid diet. Physical Exam Vital Signs: Vital Signs: Last Vital Signs Temp 97.6 F 09/10/23 07:16 Pulse 83 09/10/23 07:16 Resp 18 09/10/23 07:16 BP 120/62 09/10/23 07:16 Pulse Ox 97 09/10/23 07:16 O2 Del Method Nasal Cannula 09/10/23 07:16 O2 Flow Rate 4 09/10/23 07:16 Oxygen Flow Rate 4 09/08/23 09:13 BMI result Body Mass Index 40.3 GI: Other: Corpulent abdomen. Several scars. Mild mid abdominal tenderness but without any evidence of guarding, rebound, or rigidity. Objective Data Active Medications Albuterol Sulfate (Albuterol Sulfate 90 Mcg 8 Gm Inhaler) 2 puff INHALE Q4H PRN PRN Reason: wheezing Albuterol/Ipratropium (Albuterol/Iprat 2.5/0.5mg 3 Ml Ampul.Neb) 3 ml INHALE RQ4H WHILE AWAKE PRN PRN Reason: Shortness of Breath/Wheezing Last Admin: 09/09/23 09:16 Dose: 3 ml Documented By: LUDIN Atorvastatin Calcium (Atorvastatin Calcium 10 Mg Tablet) 10 mg PO BEDTIME [facility] Last Admin: 09/09/23 20:20 Dose: 10 mg Documented By: YURI Calcium Carbonate (Calcium Carbonate 750 Mg Tab.Chew) 750 mg PO Q4H PRN PRN Reason: Heartburn Clonazepam (Clonazepam 1 Mg Tablet) 1 mg PO BID [facility] Last Admin: 09/10/23 08:03 Dose: 1 mg Documented By: SOCORRO Diphenhydramine HCl (Diphenhydramine Hcl 25 Mg Capsule) 50 mg PO DAILY PRN PRN Reason: Allergic Symptoms Enoxaparin Sodium (Enoxaparin Sodium 40 Mg/0.4 Ml Syringe) 40 mg SUBCUT Q24H [facility] Last Admin: 09/09/23 20:19 Dose: 40 mg Documented By: YURI Escitalopram Oxalate (Escitalopram Oxalate 20 Mg Tablet) 20 mg PO BEDTIME [facility] Last Admin: 09/09/23 20:20 Dose: 20 mg Documented By: YURI Famotidine (Famotidine 20 Mg Tablet) 20 mg PO BID [facility] Last Admin: 09/10/23 08:04 Dose: 20 mg Documented By: SOCORRO Fluticasone Propionate (Fluticasone Propionate Nasal 16 Gm [place]) 1 spray NOSTRIL-B DAILY [facility] Last Admin: 09/10/23 08:04 Dose: 1 spray Documented By: SOCORRO Gabapentin (Gabapentin 100 Mg Capsule) 100 mg PO TID [facility] Last Admin: 09/10/23 08:04 Dose: 100 mg Documented By: SOCORRO Glucose (Glucose Gel 15 Gm Gel..Gram.) 15 gm PO Q15M PRN; Protocol PRN Reason: per Hypoglycemia Standing Ord. Guaifenesin/Codeine Phosphate (Guaifen/Codeine Sf 200/20/10ml 10 Ml Liquid) 10 ml PO Q8H PRN PRN Reason: cough Hydromorphone HCl (Hydromorphone Hcl 0.5 Mg/0.5 Ml Syringe) 0.5 mg IVPUSH Q3H PRN; Protocol PRN Reason: Pain, Severe (Pain Scale 7-10) Last Admin: 09/10/23 13:25 Dose: 0.5 mg Documented By: SOCORRO Lactated Ringer's (Lr) 1,000 mls @ 125 mls/hr IVCONT .Q8H [facility] Last Admin: 09/10/23 08:00 Dose: 125 mls/hr Documented By: SOCORRO Dextrose (D10) 250 mls @ 750 mls/hr IV Q15M PRN; Protocol PRN Reason: per Hypoglycemia Standing Ord. Insulin Glargine (Insulin Glargine,Hum.Rec.Anlog 100 Unit/Ml 10 Ml Vial) 6 unit SUBCUT DAILY [facility] Last Admin: 09/10/23 08:46 Dose: 6 unit Documented By: SOCORRO Insulin Human Lispro (Insulin Lispro 100 Unit/Ml 3 Ml Vial) 0 unit SUBCUT Q6H [facility]; Protocol Last Admin: 09/10/23 11:57 Dose: 1 unit Documented By: SOCORRO Lurasidone HCl (Lurasidone Hcl 20 Mg Tablet) 60 mg PO BEDTIME [facility] Last Admin: 09/09/23 20:19 Dose: 60 mg Documented By: YURI Magnesium Hydroxide (Milk Of Magnesia 30 Ml Oral.Susp) 30 ml PO DAILY PRN PRN Reason: Constipation Melatonin (Melatonin 3 Mg Tablet) 6 mg PO BEDTIME PRN PRN Reason: Insomnia Ondansetron HCl (Ondansetron Hcl 4 Mg/2 Ml Vial) 4 mg IVPUSH Q8H PRN PRN Reason: Nausea and Vomiting Oxcarbazepine (Oxcarbazepine 300 Mg Tablet) 300 mg PO BID [facility] Last Admin: 09/10/23 08:04 Dose: 300 mg Documented By: SOCORRO Promethazine HCl (Promethazine Hcl 25 Mg/Ml Vial) 12.5 mg IM Q6H PRN PRN Reason: Nausea and Vomiting Last Admin: 09/10/23 11:35 Dose: 12.5 mg Documented By: SOCORRO Sodium Chloride (0.9 % Sodium Chloride Flush 3 Ml Syringe) 3 ml IVFLUSH QSHIFT [facility] Last Admin: 09/10/23 08:00 Dose: Not Given Documented By: SOCORRO Non-Admin Reason: IV Running Trazodone HCl (Trazodone Hcl 50 Mg Tablet) 150 mg PO BEDTIME PRN PRN Reason: Sleep Last Admin: 09/09/23 21:30 Dose: 150 mg Documented By: YURI Labs 09/08/23 09:22 09/09/23 12:21 Labs: Laboratory Results - last 24 hr 09/09/23 09/10/23 09/10/23 17:27 00:25 06:22 POC Glucose 182 H 139 H 152 H 09/10/23 11:46 POC Glucose 160 H Microbiology Microbiology Results: Microbiology 09/08/23 Unknown Urine Culture - Preliminary Urine clean catch - Urine guerra top Gram negative traci Procedures Date of Service Date of Service: 09/10/23 Progress Note: A&P Assessment and plan (1) Partial small bowel obstruction: Status: Acute Plan Resolving partial small bowel obstruction. Diet advanced as tolerated. No acute surgical issues at this time. Time Spent With Patient Time: Total time managing care of this patient today ____ minutes. Quality Stroke Does the patient have a stroke diagnosis?: No VTE Prior VTE?: Yes VTE Risk Level:: Surgical - high VTE Device Contraindication: N/A - Device Ordered VTE Drug Contraindication: N/A - Med Ordered
[2023-09-10 15:26] VITALS: BP 126/84; PULSE 87; RESP 18; TEMP 36.3; O2SAT 95
[2023-09-10] MEDS: 0.9 % Sodium Chloride Flush 3 ML SYRINGE IVFLUSH ×2 (15:56→20:13)
[2023-09-10] MEDS: guaiFEN/Codeine SF 200/20/10ML 10 ML LIQUID PO (17:47)
[2023-09-10 17:48] LABS: Glucose, Whole Blood 298 mg/dL (60-115)
--- NOTE | 2023-09-10 18:31 | PC.NURSE ---
Pt ateclear liquid trays fro lunch and dinner. C/o abdominal discomfort post meals. Encouraged to slow pace with intake of liquids. Verbalized understanding
[2023-09-10 19:57] VITALS: BP 132/68; PULSE 80; RESP 18; TEMP 35.8; O2SAT 94
[2023-09-10] MEDS: Atorvastatin Calcium 10 MG TABLET PO (20:12)
[2023-09-10] MEDS: Lurasidone HCl 20 MG TABLET 60 MG PO (20:12)
[2023-09-10] MEDS: traZODone HCL 50 MG TABLET 150 MG PO (20:12)
[2023-09-10] MEDS: Enoxaparin Sodium 40 MG/0.4 ML SYRINGE SUBCUT (20:12)
[2023-09-10] MEDS: Escitalopram Oxalate 20 MG TABLET PO (20:13)
[2023-09-11 00:09] LABS: Glucose, Whole Blood 219 mg/dL (60-115)
[2023-09-11] MEDS: Insulin Lispro 100 UNIT/ML 3 ML VIAL SUBCUT ×5 (00:46→23:50)
[2023-09-11 03:18] VITALS: BP 131/75; PULSE 70; RESP 18; TEMP 36.6; O2SAT 99
[2023-09-11] MEDS: HYDROmorphone HCl 0.5 MG/0.5 ML SYRINGE IVPUSH ×6 (03:44→21:21)
--- NOTE | 2023-09-11 04:59 | PC.NURSE ---
Patient refuses bed alarm for moderate risk fall precautions
[2023-09-11 05:34] LABS: Glucose, Whole Blood 170 mg/dL (60-115)
[2023-09-11 07:35] VITALS: BP 158/77; PULSE 87; RESP 20; TEMP 36; O2SAT 95
[2023-09-11] MEDS: OXcarbazepine 300 MG TABLET PO ×2 (08:05→21:04)
[2023-09-11] MEDS: Famotidine 20 MG TABLET PO ×2 (08:06→21:04)
[2023-09-11] MEDS: Gabapentin 100 MG CAPSULE PO ×3 (08:06→21:04)
[2023-09-11] MEDS: 0.9 % Sodium Chloride Flush 3 ML SYRINGE IVFLUSH ×3 (08:06→21:04)
[2023-09-11] MEDS: clonazePAM 1 MG TABLET PO ×2 (08:06→21:04)
[2023-09-11] MEDS: Insulin Glargine,Hum.rec.anlog 100 UNIT/ML 10 ML VIAL 6 UNIT SUBCUT (08:06)
[2023-09-11] MEDS: Fluticasone Propionate Nasal 16 GM SPRAY 1 SPRAY NOSTRIL-B (08:10)
[2023-09-11 11:58] LABS: Glucose, Whole Blood 271 mg/dL (60-115)
--- NOTE | 2023-09-11 13:16 | P.PNGS_ITS ---
Subjective Subjective Date of Service: 09/11/23 Interval history: Patient was feeling better. Abdominal symptoms much improved but still mid abdominal discomfort. Patient was passing flatus and stool. Tolerating her liquid diet. She wishes to have a solid diet. Physical Exam 2 Vital Signs: Vital Signs: Last Vital Signs Temp 96.8 F 09/11/23 07:35 Pulse 87 09/11/23 07:35 Resp 20 09/11/23 07:35 BP 158/77 H 09/11/23 07:35 Pulse Ox 95 09/11/23 07:35 O2 Del Method Nasal Cannula 09/11/23 07:35 O2 Flow Rate 3 09/11/23 07:35 Oxygen Flow Rate 4 09/08/23 09:13 BMI result Body Mass Index 40.3 GI: Other: Very corpulent abdomen. Multiple abdominal scars. Mild mid abdominal tenderness. Very large ventral hernia. Objective Data Active Medications Albuterol Sulfate (Albuterol Sulfate 90 Mcg 8 Gm Inhaler) 2 puff INHALE Q4H PRN PRN Reason: wheezing Albuterol/Ipratropium (Albuterol/Iprat 2.5/0.5mg 3 Ml Ampul.Neb) 3 ml INHALE RQ4H WHILE AWAKE PRN PRN Reason: Shortness of Breath/Wheezing Last Admin: 09/09/23 09:16 Dose: 3 ml Documented By: LUDIN Atorvastatin Calcium (Atorvastatin Calcium 10 Mg Tablet) 10 mg PO BEDTIME [facility] Last Admin: 09/10/23 20:12 Dose: 10 mg Documented By: YURI Calcium Carbonate (Calcium Carbonate 750 Mg Tab.Chew) 750 mg PO Q4H PRN PRN Reason: Heartburn Clonazepam (Clonazepam 1 Mg Tablet) 1 mg PO BID [facility] Last Admin: 09/11/23 08:06 Dose: 1 mg Documented By: SOCORRO Diphenhydramine HCl (Diphenhydramine Hcl 25 Mg Capsule) 50 mg PO DAILY PRN PRN Reason: Allergic Symptoms Enoxaparin Sodium (Enoxaparin Sodium 40 Mg/0.4 Ml Syringe) 40 mg SUBCUT Q24H [facility] Last Admin: 09/10/23 20:12 Dose: 40 mg Documented By: YURI Escitalopram Oxalate (Escitalopram Oxalate 20 Mg Tablet) 20 mg PO BEDTIME [facility] Last Admin: 09/10/23 20:13 Dose: 20 mg Documented By: YURI Famotidine (Famotidine 20 Mg Tablet) 20 mg PO BID [facility] Last Admin: 09/11/23 08:06 Dose: 20 mg Documented By: SOCORRO Fluticasone Propionate (Fluticasone Propionate Nasal 16 Gm [place]) 1 spray NOSTRIL-B DAILY [facility] Last Admin: 09/11/23 08:10 Dose: 1 spray Documented By: SOCORRO Gabapentin (Gabapentin 100 Mg Capsule) 100 mg PO TID [facility] Last Admin: 09/11/23 08:06 Dose: 100 mg Documented By: SOCORRO Glucose (Glucose Gel 15 Gm Gel..Gram.) 15 gm PO Q15M PRN; Protocol PRN Reason: per Hypoglycemia Standing Ord. Guaifenesin/Codeine Phosphate (Guaifen/Codeine Sf 200/20/10ml 10 Ml Liquid) 10 ml PO Q8H PRN PRN Reason: cough Last Admin: 09/10/23 17:47 Dose: 10 ml Documented By: SOCORRO Hydromorphone HCl (Hydromorphone Hcl 0.5 Mg/0.5 Ml Syringe) 0.5 mg IVPUSH Q3H PRN; Protocol PRN Reason: Pain, Severe (Pain Scale 7-10) Last Admin: 09/11/23 11:22 Dose: 0.5 mg Documented By: SOCORRO Dextrose (D10) 250 mls @ 750 mls/hr IV Q15M PRN; Protocol PRN Reason: per Hypoglycemia Standing Ord. Insulin Glargine (Insulin Glargine,Hum.Rec.Anlog 100 Unit/Ml 10 Ml Vial) 6 unit SUBCUT DAILY [facility] Last Admin: 09/11/23 08:06 Dose: 6 unit Documented By: SOCORRO Insulin Human Lispro (Insulin Lispro 100 Unit/Ml 3 Ml Vial) 0 unit SUBCUT Q6H [facility]; Protocol Last Admin: 09/11/23 12:15 Dose: 3 unit Documented By: SOCORRO Lurasidone HCl (Lurasidone Hcl 20 Mg Tablet) 60 mg PO BEDTIME [facility] Last Admin: 09/10/23 20:12 Dose: 60 mg Documented By: YURI Magnesium Hydroxide (Milk Of Magnesia 30 Ml Oral.Susp) 30 ml PO DAILY PRN PRN Reason: Constipation Melatonin (Melatonin 3 Mg Tablet) 6 mg PO BEDTIME PRN PRN Reason: Insomnia Ondansetron HCl (Ondansetron Hcl 4 Mg/2 Ml Vial) 4 mg IVPUSH Q8H PRN PRN Reason: Nausea and Vomiting Oxcarbazepine (Oxcarbazepine 300 Mg Tablet) 300 mg PO BID [facility] Last Admin: 09/11/23 08:05 Dose: 300 mg Documented By: SOCORRO Promethazine HCl (Promethazine Hcl 25 Mg/Ml Vial) 12.5 mg IM Q6H PRN PRN Reason: Nausea and Vomiting Last Admin: 09/10/23 11:35 Dose: 12.5 mg Documented By: SOCORRO Sodium Chloride (0.9 % Sodium Chloride Flush 3 Ml Syringe) [facility] Last Admin: 09/11/23 08:06 Dose: 3 ml Documented By: SOCORRO Trazodone HCl (Trazodone Hcl 50 Mg Tablet) 150 mg PO BEDTIME PRN PRN Reason: Sleep Last Admin: 09/10/23 20:12 Dose: 150 mg Documented By: YURI Labs 09/08/23 09:22 09/09/23 12:21 Labs: Laboratory Results - last 24 hr 09/10/23 09/11/23 09/11/23 17:44 00:03 05:30 POC Glucose 298 H 219 H 170 H 09/11/23 11:52 POC Glucose 271 H Microbiology Microbiology Results: Microbiology 09/08/23 Unknown Urine Culture - Final Urine clean catch - Urine guerra top Klebsiella pneumoniae Procedures Date of Service Date of Service: 09/11/23 Progress Note: A&P Assessment and plan (1) Partial small bowel obstruction: Status: Acute (2) Abdominal pain: Status: Acute Plan To advance diet 1800 ADA, out of bed, incentive spirometry Time Spent With Patient Time: Total time managing care of this patient today ____ minutes. Quality Stroke Does the patient have a stroke diagnosis?: No VTE Prior VTE?: Yes VTE Risk Level:: Surgical - high VTE Device Contraindication: N/A - Device Ordered VTE Drug Contraindication: N/A - Med Ordered
[2023-09-11 15:37] VITALS: BP 137/71; PULSE 69; RESP 18; TEMP 36.1; O2SAT 95
[2023-09-11 17:56] LABS: Glucose, Whole Blood 331 mg/dL (60-115)
[2023-09-11 19:35] VITALS: BP 118/58; PULSE 71; RESP 18; TEMP 36.1; O2SAT 94
[2023-09-11] MEDS: Enoxaparin Sodium 40 MG/0.4 ML SYRINGE SUBCUT (21:03)
[2023-09-11] MEDS: Escitalopram Oxalate 20 MG TABLET PO (21:04)
[2023-09-11] MEDS: Lurasidone HCl 20 MG TABLET 60 MG PO (21:04)
[2023-09-11] MEDS: Atorvastatin Calcium 10 MG TABLET PO (21:04)
[2023-09-11 23:49] LABS: Glucose, Whole Blood 374 mg/dL (60-115)
[2023-09-12] MEDS: HYDROmorphone HCl 0.5 MG/0.5 ML SYRINGE IVPUSH ×4 (00:25→11:11)
[2023-09-12] MEDS: Insulin Lispro 100 UNIT/ML 3 ML VIAL 7 UNIT SUBCUT (00:25)
--- NOTE | 2023-09-12 00:31 | PC.NURSE ---
12am blood sugar was 374. notified. pt given 5units per sliding scale plus an additional 7 units. changed blood sugars to QID AC and hs since pt is on solids now and sliding scale adjusted.
[2023-09-12 03:37] VITALS: BP 113/62; PULSE 67; RESP 16; TEMP 36; O2SAT 98
[2023-09-12 07:05] VITALS: BP 136/64; PULSE 69; RESP 16; TEMP 36.6; O2SAT 99
[2023-09-12 07:23] LABS: Glucose, Whole Blood 228 mg/dL (60-115)
[2023-09-12] MEDS: Insulin Glargine,Hum.rec.anlog 100 UNIT/ML 10 ML VIAL 6 UNIT SUBCUT (07:57)
[2023-09-12] MEDS: Insulin Lispro 100 UNIT/ML 3 ML VIAL SUBCUT ×2 (07:57→11:40)
[2023-09-12] MEDS: OXcarbazepine 300 MG TABLET PO (07:58)
[2023-09-12] MEDS: 0.9 % Sodium Chloride Flush 3 ML SYRINGE IVFLUSH (07:58)
[2023-09-12] MEDS: clonazePAM 1 MG TABLET PO (07:58)
[2023-09-12] MEDS: Famotidine 20 MG TABLET PO (07:58)
[2023-09-12] MEDS: Gabapentin 100 MG CAPSULE PO (07:58)
[2023-09-12] MEDS: Fluticasone Propionate Nasal 16 GM SPRAY 1 SPRAY NOSTRIL-B (07:59)
--- NOTE | 2023-09-12 08:32 | P.PNGS_ITS ---
Subjective Subjective Date of Service: 09/12/23 Interval history: C/o persistent mid abdominal pain but overall improved from prior. Not worsened by eating. Tolerating solid diet without nausea or vomiting. Continues to pass flatus and had BM. Would like to go home. On home O2- uses at night and when she feels she needs. Physical Exam 2 Vital Signs: Vital Signs: Last Vital Signs Temp 98 F 09/12/23 07:05 Pulse 69 09/12/23 07:05 Resp 16 09/12/23 07:05 BP 136/64 09/12/23 07:05 Pulse Ox 99 09/12/23 07:05 O2 Del Method Nasal Cannula 09/12/23 07:05 O2 Flow Rate 4 09/12/23 07:05 Oxygen Flow Rate 4 09/08/23 09:13 BMI result Body Mass Index 40.3 Const: General: comfortable, no acute distress and alert Neck: Other: trach in place Resp: Effort & Inspection: normal respiratory effort GI: Inspection: No distended and Yes scar Palpation (GI): Soft to palpation, Tenderness to palpation present (GI) (very mild epigastric and mid abdominal tenderness) and no guarding Neuro: General: moves all extremities Objective Data Active Medications Albuterol Sulfate (Albuterol Sulfate 90 Mcg 8 Gm Inhaler) 2 puff INHALE Q4H PRN PRN Reason: wheezing Albuterol/Ipratropium (Albuterol/Iprat 2.5/0.5mg 3 Ml Ampul.Neb) 3 ml INHALE RQ4H WHILE AWAKE PRN PRN Reason: Shortness of Breath/Wheezing Last Admin: 09/09/23 09:16 Dose: 3 ml Documented By: LUDIN Atorvastatin Calcium (Atorvastatin Calcium 10 Mg Tablet) 10 mg PO BEDTIME [facility] Last Admin: 09/11/23 21:04 Dose: 10 mg Documented By: MARLARISAmanuel Calcium Carbonate (Calcium Carbonate 750 Mg Tab.Chew) 750 mg PO Q4H PRN PRN Reason: Heartburn Clonazepam (Clonazepam 1 Mg Tablet) 1 mg PO BID [facility] Last Admin: 09/12/23 07:58 Dose: 1 mg Documented By: SOCORRO Diphenhydramine HCl (Diphenhydramine Hcl 25 Mg Capsule) 50 mg PO DAILY PRN PRN Reason: Allergic Symptoms Enoxaparin Sodium (Enoxaparin Sodium 40 Mg/0.4 Ml Syringe) 40 mg SUBCUT Q24H [facility] Last Admin: 09/11/23 21:03 Dose: 40 mg Documented By: ANDI Escitalopram Oxalate (Escitalopram Oxalate 20 Mg Tablet) 20 mg PO BEDTIME [facility] Last Admin: 09/11/23 21:04 Dose: 20 mg Documented By: ANDI Famotidine (Famotidine 20 Mg Tablet) 20 mg PO BID [facility] Last Admin: 09/12/23 07:58 Dose: 20 mg Documented By: SOCORRO Fluticasone Propionate (Fluticasone Propionate Nasal 16 Gm [place]) 1 spray NOSTRIL-B DAILY [facility] Last Admin: 09/12/23 07:59 Dose: 1 spray Documented By: SOCORRO Gabapentin (Gabapentin 100 Mg Capsule) 100 mg PO TID [facility] Last Admin: 09/12/23 07:58 Dose: 100 mg Documented By: SOCORRO Glucose (Glucose Gel 15 Gm Gel..Gram.) 15 gm PO Q15M PRN; Protocol PRN Reason: per Hypoglycemia Standing Ord. Guaifenesin/Codeine Phosphate (Guaifen/Codeine Sf 200/20/10ml 10 Ml Liquid) 10 ml PO Q8H PRN PRN Reason: cough Last Admin: 09/10/23 17:47 Dose: 10 ml Documented By: SOCORRO Hydromorphone HCl (Hydromorphone Hcl 0.5 Mg/0.5 Ml Syringe) 0.5 mg IVPUSH Q3H PRN; Protocol PRN Reason: Pain, Severe (Pain Scale 7-10) Last Admin: 09/12/23 07:58 Dose: 0.5 mg Documented By: SOCORRO Dextrose (D10) 250 mls @ 750 mls/hr IV Q15M PRN; Protocol PRN Reason: per Hypoglycemia Standing Ord. Insulin Glargine (Insulin Glargine,Hum.Rec.Anlog 100 Unit/Ml 10 Ml Vial) 6 unit SUBCUT DAILY [facility] Last Admin: 09/12/23 07:57 Dose: 6 unit Documented By: SOCORRO Insulin Human Lispro (Insulin Lispro 100 Unit/Ml 3 Ml Vial) 0 unit SUBCUT QIDACHS [facility]; Protocol Last Admin: 09/12/23 07:57 Dose: 4 unit Documented By: SOCORRO Lurasidone HCl (Lurasidone Hcl 20 Mg Tablet) 60 mg PO BEDTIME [facility] Last Admin: 09/11/23 21:04 Dose: 60 mg Documented By: ODRISAmanuel Magnesium Hydroxide (Milk Of Magnesia 30 Ml Oral.Susp) 30 ml PO DAILY PRN PRN Reason: Constipation Melatonin (Melatonin 3 Mg Tablet) 6 mg PO BEDTIME PRN PRN Reason: Insomnia Ondansetron HCl (Ondansetron Hcl 4 Mg/2 Ml Vial) 4 mg IVPUSH Q8H PRN PRN Reason: Nausea and Vomiting Oxcarbazepine (Oxcarbazepine 300 Mg Tablet) 300 mg PO BID [facility] Last Admin: 09/12/23 07:58 Dose: 300 mg Documented By: SOCORRO Promethazine HCl (Promethazine Hcl 25 Mg/Ml Vial) 12.5 mg IM Q6H PRN PRN Reason: Nausea and Vomiting Last Admin: 09/10/23 11:35 Dose: 12.5 mg Documented By: SOCORRO Sodium Chloride (0.9 % Sodium Chloride Flush 3 Ml Syringe) 3 ml IVFLUSH QSHIFT [facility] Last Admin: 09/12/23 07:58 Dose: 3 ml Documented By: SOCORRO Trazodone HCl (Trazodone Hcl 50 Mg Tablet) 150 mg PO BEDTIME PRN PRN Reason: Sleep Last Admin: 09/10/23 20:12 Dose: 150 mg Documented By: YURI Labs 09/08/23 09:22 09/09/23 12:21 Labs: Laboratory Results - last 24 hr 09/11/23 09/11/23 09/11/23 11:52 17:53 23:46 POC Glucose 271 H 331 H 374 H* 09/12/23 07:13 POC Glucose 228 H Microbiology Microbiology Results: Microbiology 09/08/23 Unknown Urine Culture - Final Urine clean catch - Urine guerra top Klebsiella pneumoniae Procedures Date of Service Date of Service: 09/12/23 Progress Note: A&P Assessment and plan (1) Partial small bowel obstruction: Status: Acute Plan Feels improved and is tolerating solid diet with good GI function. Abd overall benign. Stable for dc to home. Can f/u with PCP. Time Spent With Patient Time: Total time managing care of this patient today ____ minutes. Quality Stroke Does the patient have a stroke diagnosis?: No VTE Prior VTE?: Yes VTE Risk Level:: Surgical - high VTE Device Contraindication: N/A - Device Ordered VTE Drug Contraindication: N/A - Med Ordered
[2023-09-12 11:17] LABS: Glucose, Whole Blood 353 mg/dL (60-115)
--- NOTE | 2023-09-12 11:20 | MHC.CM.PN ---
DP: PT HAS BEEN MEDICALLY CLEARED FOR DC HOME, NO SERVICES. PT REQUESTS HOME VIA SHUTTLE. [facility] RIDE BOOKED FOR 1 PM. RN AWARE.
--- NOTE | 2023-09-12 13:32 | P.DS_ITS ---
DS: Providers Provider Date of Service: 09/12/23 Date of admission: 09/08/23 15:20 Date of discharge: 09/12/23 Primary care physician: Megan Cummings MD Attending physician on admission: Alen Freedman Consults: 09/11/23 18:21 Consult to Hospitalist Routine Comment: Consulting Provider: Hospitalist Reason For Exam: diabetes medications- pt no longer NPO Attending physician on discharge: Alen Freedman DS: Diagnosis Discharge Diagnosis (1) Partial small bowel obstruction: Status: Acute DS: Summary Hospital Course Hospital Course: HPI AT ADMISSION: Anna Marie Black is a 52 year old female presenting with complaints of abdominal pain, abdominal distention, nausea and vomiting. The pain began during the night and proceeded the nausea and vomiting. 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 She has a large ventral hernia with loss of domain of her bowel. She has a tracheostomy in place as well. Workup in the emergency department revealed a mildly elevated WBC. CT abdomen and pelvis revealed evidence of a partial small-bowel obstruction with no clear transition point. HOSPITAL COURSE: She was admitted to the surgical service for further management of the small-bowel obstruction. She did have a bowel movement as recently as yesterday and did not appear to be completely obstructed. The patient has extensive scar tissue and a large ventral hernia making an abdominal exploration extremely difficult and unwise. A period of bowel rest ideally with nasogastric tube decompression was recommended however the patient has requested to avoid nasogastric tube due to past experience. She was kept NPO with IV fluid hydration. Hospitalist consultation was obtained for management of her multiple medical issues. She had no significant improvement the following day and t herefore SBFT was ordered. F/u KUB the next day showed contrast had mostly passed through the small bowel into the colon. She began to pass flatus and stool. Her abdominal pain improved. Her diet was slowly advanced as tolerated from clear liquids to solids. Her symptoms continued to improve. She had good Gi function. On the day of discharge, she was tolerating a solid diet without nausea or vomiting and had very mild abdominal discomfort not exacerbated by food with a benign exam. She felt ready for discharge to home. She was discharged to home on 09/12/23 in stable condition. Status at Discharge Functional status at discharge: independent ambulation Overall status at discharge: patient is progressing back to baseline Time Attestation Discharge Coordination Time (in mins): 35 Quality: Safe Use of Opioids Does Pt have an Active Cancer Diagnosis on the Problem List?: No Quality: Stroke Does the patient have a stroke diagnosis?: No Physical Exam Vital Signs: Vital Signs: Last Vital Signs Temp 98 F 09/12/23 07:05 Pulse 69 09/12/23 07:05 Resp 16 09/12/23 07:05 BP 136/64 09/12/23 07:05 Pulse Ox 99 09/12/23 07:05 O2 Del Method Nasal Cannula 09/12/23 07:05 O2 Flow Rate 4 09/12/23 07:05 Oxygen Flow Rate 4 09/08/23 09:13 BMI result Body Mass Index 40.3 Const: Orientation/consciousness: patient oriented x3 Resp: Effort & Inspection: normal respiratory effort GI: Inspection: No distended Palpation (GI): Soft to palpation, Tenderness to palpation present (GI) (very mild upper tenderness) and no guarding Neuro: General: patient oriented x3 and moves all extremities DS: Data Data Completed and Pending Completed studies during hospitalization [Text1]: Procedures Dilation of Left Ureter with Intraluminal Device, Via Natural or Artificial Opening Endoscopic (06/11/21) Fluoroscopy of Left Kidney, Ureter and Bladder (06/11/21) Discharge Plan Discharge Anticipated Discharge Date/Time: 09/12/23 00:04 Patient Disposition: Home, Self-Care Discharge Diagnosis: PSBO Referrals: Megan Mosqueda MD [Primary Care Provider] - 1 Week Discharge Medications: New oxycodone 5 mg tablet 5 mg PO Q6H PRN (Reason: pain (scale score 7-10)) Qty: 18 0RF Rx Instructions: Partial Fill upon patient request. Continued insulin glargine [Lantus Solostar U-100 Insulin] 100 unit/mL (3 mL) insulin pen 12 unit subcut DAILY codeine-guaifenesin 10-100 mg/5 mL liquid 10 ml PO Q8H PRN (Reason: cough) diphenhydramine HCl [Benadryl] 25 mg Capsule 50 mg PO DAILY PRN (Reason: Allergic Symptoms) ibuprofen 200 mg Tablet 200 mg PO Q8H PRN (Reason: Pain) atorvastatin 10 mg tablet 10 mg PO BEDTIME clonazepam 1 mg tablet 1 mg PO BID PRN (Reason: Anxiety) oxcarbazepine 300 mg tablet 300 mg PO BID famotidine 20 mg tablet 20 mg PO BID trazodone 150 mg tablet 150 mg PO BEDTIME PRN (Reason: Sleep) gabapentin 100 mg capsule 100 mg PO TID albuterol sulfate [Ventolin HFA] 90 mcg/actuation HFA aerosol inhaler 2 puff inhalation Q4H PRN (Reason: wheezing) fluticasone propionate 50 mcg/actuation spray,suspension 1 spray intranasal DAILY Rx Instructions: INHALE IN BOTH NOSTRILS metformin 500 mg tablet extended release 24 hr 1,000 mg PO BID glipizide 5 mg tablet 5 mg PO DAILY insulin lispro 100 unit/mL insulin pen 1 sliding scale dose subcut TIDAC escitalopram oxalate 20 mg tablet 20 mg PO BEDTIME lurasidone 60 mg tablet 60 mg PO BEDTIME Discharge Orders: Discharge Order (Routine); Ordered 09/12/23 Ordered By: Alen Freedman Diet: Advance to usual diet Activity on Discharge: As tolerated Stand Alone Forms: Patient Portal Discharge page Print Language: [place]se Activity Restrictions/Additional Instructions: Follow up in office in a week. ([phone]) Call Your Doctor If: ? ? -Your temperature exceeds 101.5? F? ? ? -You experience excessive pain or swelling ? ? -You have an unexpected reaction to medication ? ? -You experience continued vomiting/nausea Care Plan Goals: Return to baseline health and resume normal activities following recovery period. Health Concerns: SBO, hx of multiple abd surgeries trach dependent diabetes asthma Plan of Treatment: Supportive measures f/u with PCP Assessment: Improved Discharge Date/Time: 09/12/23 13:00
== END 2023-09-12 13:00 | disposition home or self-care (01) | DRG 247 ==
LOC: HO.ED 13:06 → HO.EDOVER 15:29 → HO.S3 15:35
PROVIDERS: Student in an Organized Health Care Education/Training Program; Admitting Provider Surgery; Emergency Provider Emergency Medicine; PCP Internal Medicine; Visit Provider Surgery
DX: K56.600 Partial intestinal obstruction, unspecified as to cause (principal); J96.11 Chronic respiratory failure with hypoxia; Z93.0 Tracheostomy status; B96.1 Klebsiella pneumoniae [K. pneumoniae] as the cause of diseases classified elsewhere; E11.9 Type 2 diabetes mellitus without complications; E78.5 Hyperlipidemia, unspecified; J44.9 Chronic obstructive pulmonary disease, unspecified; F31.9 Bipolar disorder, unspecified; Z86.711 Personal history of pulmonary embolism; Z79.4 Long term (current) use of insulin; Z79.01 Long term (current) use of anticoagulants; Z79.84 Long term (current) use of oral hypoglycemic drugs; Z79.899 Other long term (current) drug therapy
CPT/HCPCS: 36415; 74018; 74177; 74250; 80048; 80076; 81001; 81025; 82010; 82803; 82947; 83605; 83690; 84484; 84702; 85025; 87086; 87088; 87186; 93005; 94640; 99285; J0131; J1170; J1650; J2270; J2405; J2550; J7120; Q9967

== ENCOUNTER → 2023-09-08 09:12 | Outpatient (BNV) | payer OTHER, SELFPAY | PROVIDERS: Admitting Provider Surgery; Emergency Provider Emergency Medicine; PCP Internal Medicine; Visit Provider Internal Medicine Cardiovascular Disease | DX: R94.31 Abnormal electrocardiogram [ECG] [EKG] (principal) | CPT/HCPCS: 93010 ==

== ENCOUNTER 2023-09-08 09:56 | Outpatient (REF) | payer OTHER, SELFPAY | END 2023-09-08 09:57 | disposition home or self-care (01) | LOC: HO.HOSX 09:56 | PROVIDERS: Visit Provider Physician Assistant | DX: Z13.89 Encounter for screening for other disorder (principal) ==

== ENCOUNTER 2023-09-08 15:20 | Outpatient (BNV) | payer OTHER, SELFPAY | END 2023-09-09 08:50 | PROVIDERS: Admitting Provider Surgery; Emergency Provider Emergency Medicine; PCP Internal Medicine; Visit Provider Physician Assistant Surgical | DX: K56.600 Partial intestinal obstruction, unspecified as to cause (principal) | CPT/HCPCS: 74250 ==

== ENCOUNTER → 2023-09-08 15:20 | Outpatient (BNV) | payer OTHER, SELFPAY | PROVIDERS: Admitting Provider Surgery; Emergency Provider Emergency Medicine; PCP Internal Medicine; Visit Provider Surgery | DX: K56.600 Partial intestinal obstruction, unspecified as to cause (principal) | CPT/HCPCS: 99222; 99232; 99239 ==

== ENCOUNTER → 2023-09-08 15:20 | Outpatient (BNV) | payer OTHER, SELFPAY | PROVIDERS: Admitting Provider Surgery; Emergency Provider Emergency Medicine; PCP Internal Medicine; Visit Provider Student in an Organized Health Care Education/Training Program | DX: K56.600 Partial intestinal obstruction, unspecified as to cause (principal); R10.84 Generalized abdominal pain | CPT/HCPCS: 99222; 99232 ==

== ENCOUNTER 2023-09-13 15:01 | Outpatient (REF) | payer OTHER, SELFPAY ==
--- NOTE | ~2023-09-13 | XR_ITS ---
EXAMINATION: XR ANKLE, LEFT CLINICAL INFORMATION: Pain in unspecified ankle and joints of unspecified foot, cast off. COMPARISON: 07/25/2023, 06/30/2023, and prior. TECHNIQUE: AP, lateral, and mortise views of the left ankle. FINDINGS: Redemonstration of oblique fracture of the distal fibular shaft and transverse fracture of the medial malleolus with similar alignment and some evidence of bridging callus formation. Persistent disruption of the ankle mortise with subluxation and medial widening. Ankle joint effusion and soft tissue swelling. XR/XR ankle LT min 3V IMPRESSION: Redemonstration of oblique fracture of the distal fibular shaft and transverse fracture of the medial malleolus with similar alignment and some evidence of bridging callus formation. Persistent disruption of the ankle mortise with subluxation and medial widening.
== END 2023-09-13 15:02 | disposition home or self-care (01) ==
LOC: HO.HOSX 15:01
DX: S82.842D Displaced bimalleolar fracture of left lower leg, subsequent encounter for closed fracture with routine healing (principal)
CPT/HCPCS: 73610; 99212

== ENCOUNTER 2023-09-13 15:30 | Outpatient (AMB) | payer OTHER, SELFPAY ==
--- NOTE | 2023-09-13 15:47 | A.OFFVIS_ITS ---
Vital Signs 09/13/23 15:51 Height 5 ft 3 in Weight 205 lb BMI 36.3 Intake Visit Reasons: OV - left ankle fx, DOI 06/14/23-cast off Intake Note: Anna Marie is a 52 year old female who presents today for cast removal s/p left ankle fx, DOI 06/14/23. Patient reports she is having pain after getting the x rays done. Allergies pantoprazole Allergy (Mild, Verified 09/13/23 15:49) Redness of Skin HPI HPI OV - left ankle fx, DOI 06/14/23-cast off: Details: Patient is a 52 YO F who presents for follow up for L ankle bimalleolar fracture, DOI 06/14/23. Patient reports that she fell while getting up to use the bathroom at night. Patient was treated non-operatively due to complex medical history, including poorly controlled diabetes and history of cardiac arrest under anesthesia. Today, the patient reports that she is experiencing pain after X ray, primarily in the lateral ankle. Patient reports significant decrease in edema since last visit. Patient reports that she has been non-weightbearing 99% of the time , and that the only time she puts weight on her ankle is to get to the bathroom. Patient inquires as to whether they will need to go back into a cast, or if they will go into a boot today. [facility] Medical History Tracheostomy dependent History of cardiac arrest Wound drainage Takotsubo cardiomyopathy Kidney stones UTI (urinary tract infection) Bipolar 1 disorder Diabetes Asthma Substance abuse Surgical History S/P ureteral stent placement H/O exploratory laparotomy S/P cholecystectomy Family History Mother No pertinent family history Father No pertinent family history Social History Household Members: Spouse Household Members Other:: 1 Housing: Apartment Do you presently have visiting nurse or other home services: Yes ([employer] 7H/week) Alcohol intake: former Comment: stayed in ed Patient Tobacco Use Status: Never used Tobacco Second Hand Smoke Exposure: Yes Advance Directives Date on File: 02/04/23 service: No Current occupational status: disabled Review of Systems Const All systems reviewed & are unremarkable except as noted in HPI and below Physical Exam Vital Signs: BMI result Body Mass Index 36.3 Extrem Other: On inspection, patient has minimal edema and erythema of the L ankle noted Large patch of dried skin noted on the patients L heel Patient reports tenderness to palpation of the lateral malleolus, less tender over the medial malleolus Able to flex and extend toes Reports diminshed sensation in toes, no change in baseline due to pre-existing neuropathy Small, scabbed over area noted proximal to the medial malleolus, improved from last visit, no active bleeding or drainage Results Reviewed Results Reviewed: X-rays obtained in the office today and independently reviewed by me, Juan Ramon Love PA-C and Dr. Max Payne MD, demonstrate displaced fractures of both the lateral and medial malleoli, with associated widening of the medial ankle mortise. Evidence of early healing noted when compared to previous X rays Assessment & Plan Assessment & Plan (1) Bimalleolar fracture of left ankle: Code(s): S82.842A - Displaced bimalleolar fracture of left lower leg, initial encounter for closed fracture Category: Medical Qualifiers: Encounter type: initial encounter Fracture type: closed Qualified Code(s): S82.842A - Displaced bimalleolar fracture of left lower leg, initial encounter for closed fracture Plan 1. L ankle displaced bimalleolar fracture DOI 06/14/23 After consulation and review with Dr. Payne, it was decided that the patient would be removed from a cast today and placed in a walking boot. Weight bearing as tolerated Patient instructed that boot must be one during daytime activites, and whenever she is bearing weight Can be removed at night for sleep, but must be put on prior to getting out of bed Patient will follow up with [facility] in [address] Payne in office, sooner with any acute concerns Orders: Orders XR ankle LT min 3V Today M25.579 - Pain in unspecified ankle and joints of unspecified foot Coding Level of Care Code Est Pt Level 4 (55442) Diagnoses Closed bimalleolar fracture of left ankle, initial encounter S82.842A Encounter type: initial encounter Fracture type: closed Time Spent (min) 55
[2023-09-13 15:51] VITALS: BMI 36.3
== END 2023-09-13 16:55 | disposition home or self-care (01) ==
PROVIDERS: PCP Internal Medicine
DX: S82.842D Displaced bimalleolar fracture of left lower leg, subsequent encounter for closed fracture with routine healing (principal)
CPT/HCPCS: 99024

== ENCOUNTER 2023-10-09 01:26 | Emergency (ER) | payer OTHER, SELFPAY ==
[2023-10-09] VITALS (11 sets, daily range): BP systolic 100–142; BP diastolic 53–101; PULSE 79–106; RESP 12–31; TEMP 36.5–37.1; O2SAT 93–100; BMI 41.8
--- NOTE | 2023-10-09 | ECG_ITS ---
Test Reason : WEAKNESS Blood Pressure : / mmHG Vent. Rate : 090 BPM Atrial Rate : 090 BPM P-R Int : 172 ms QRS Dur : 086 ms QT Int : 374 ms P-R-T Axes : 048 -02 028 degrees QTc Int : 457 ms Normal sinus rhythm Cannot rule out Anterior infarct , age undetermined Abnormal ECG When compared with ECG of 08-SEP-2023 09:12, No significant change was found Referred By: Generic ED Physician Electronically Signed By:DENIS GAMBINO
--- NOTE | ~2023-10-09 | CT_ITS ---
EXAMINATION: HEAD CT WITHOUT CONTRAST CERVICAL SPINE CT WITHOUT CONTRAST CLINICAL INFORMATION: Change in mental status. Neck trauma. COMPARISON: None. TECHNIQUE: Contiguous axial imaging of the head was performed without the administration of IV contrast. Axial multidetector volumetric images were also performed through the cervical spine without intravenous contrast. Imaging of the craniocervical junction was repeated due to patient motion. Multiplanar reconstructed images in coronal and sagittal orientations were submitted. This CT examination was performed using dose optimization techniques as appropriate, variously including the following: *Automated exposure control *Adjustment of mA and/or kV according to patient size (this includes techniques or standardized protocols for targeted exams where dose is matched to indication/reason for exam; i.e. extremities or head) *Use of iterative reconstruction technique DOSE: 1663 mGy-cm FINDINGS: HEAD: There is no evidence of acute intracranial hemorrhage or territorial infarction. No abnormal mass-effect or midline shift. No extra-axial fluid collections. Aragon to white matter differentiation is well preserved. The ventricles are normal in size and configuration. There is no abnormal attenuation within the brain parenchyma. Globes are aphakic. Calvarium is intact. No acute calvarial or skull base fractures. Mucosal thickening is present throughout the paranasal sinuses with air-fluid levels in the sphenoid and right maxillary sinus. Partial left mastoid air cell effusion. Right mastoid air cells are clear. CERVICAL SPINE: Vertebral body heights are normal. No fractures of the vertebral bodies or posterior elements. Vertebral alignment is normal. No subluxation. Degenerative osteophytes and sclerosis are present at the atlantodental articulation, though normal alignment is maintained. Craniocervical junction is normal. Moderate multilevel degenerative disc disease is most notable from C3-C4 through C5-C6 with endplate osteophytes, uncovertebral osteophytes, loss of intervertebral disc height, and subchondral cystic change. There is marked facet arthropathy on the left at C3-C4. Posterior disc osteophyte complexes and the congenitally narrow AP diameter of the central canal results in central canal stenoses from C3-C4 through C5-C6, at least moderate in severity at the level of C4-C5. Marked bilateral neural foraminal encroachment from C2-C3 through C5-C6 bilaterally due to uncovertebral and facet osteophytes. Tracheostomy tube is in place. No adenopathy. Imaged portions of the lung apices are clear. CT/CT cervical spine wo IV con IMPRESSION: 1. No acute intracranial pathology. 2. No acute fracture or malalignment in the cervical spine. 3. Moderate multilevel degenerative spondylosis in the cervical spine with multilevel central canal and neural foraminal stenoses. 4. Visualized paranasal sinus mucosal disease
--- NOTE | ~2023-10-09 | XR_ITS ---
EXAMINATION: XR CHEST CLINICAL INFORMATION: Dyspnea, wheezing COMPARISON: 09/01/2023 TECHNIQUE: Frontal view of the chest was obtained. FINDINGS: Redemonstrated tracheostomy tube. The lungs are hypoinflated. No definite consolidation is seen. There is suggestion of central peribronchial thickening. No evidence of pneumothorax, significant pleural effusion, or overt pulmonary edema. Cardiac silhouette appears somewhat prominent though may be accentuated by low lung volumes. No acute osseous findings are seen. XR/XR chest 1V IMPRESSION: Low lung volumes without definite consolidation. Suggestion of central peribronchial thickening which may reflect airways disease.
[2023-10-09 02:18] LABS: MANUAL DIFF FLAG NO
[2023-10-09 02:19] LABS: Glucose, Whole Blood 244 mg/dL (60-115)
[2023-10-09 02:20] LABS: Basophils Percent Auto 0.3 % (0-2); Eosinophils Absolute Auto 0.3 X10*3/uL (0.0-0.4); Eosinophils Percent Auto 3.4 % (0-4); Hematocrit 32.2 % (37.0-47.0); Imm Gran Abs Auto 0.05 X10*3/uL (0.00-0.03); Imm Gran Pct Auto 0.5 % (0.0-0.4); Lymphocytes Percent Auto 9.7 % (20-40); Mean Corpuscular HGB Conc 31.1 g/dl (31.0-35.0); Mean Corpuscular Hemoglobin 26.7 pg (27.0-33.0); Mean Corpuscular Volume 86.1 fL (80.0-98.0); Mean Platelet Volume 9.4 fL (9.4-12.3); Monocytes Absolute Auto 0.6 X10*3/uL (0.1-1.2); Monocytes Percent Auto 5.9 % (2-11); Neutrophils Absolute Auto 7.8 x10*3/uL (2.0-8.3); Neutrophils Percent Auto 80.2 % (45-73); Platelet Count 328 X10*3/uL (160-400); Red Blood Count 3.74 X10*6/uL (4.20-5.50); Red Cell Distribution Width 14.4 % (11.0-16.0); White Blood Count 9.8 X10*3/uL (4.8-10.8)
[2023-10-09 02:27] LABS: Prothrombin Time 11.6 SEC (11.1-13.3)
[2023-10-09 02:33] LABS: Alanine Aminotransferase 20 U/L (0-31); Albumin Level 3.7 g/dL (3.5-5.0); Alkaline Phosphatase 148 U/L (39-117); Anion Gap 14 (12-20); Aspartate Amino Transferase 16 U/L (5-31); Bilirubin Total 0.2 mg/dL (0.0-1.0); Blood Urea Nitrogen 23 mg/dL (9-16); Calcium 9.3 mg/dL (8.4-10.2); Carbon Dioxide 31 mmol/L (22-29); Chloride 99 mmol/L (96-108); Creatinine Clr Calc Pharmacy 65.1; Estimated Glomerular Filt Rate 48; Glucose Random 287 mg/dL (60-115); Potassium 4.7 mmol/L (3.3-5.1); Sodium 139 mmol/L (135-145); Total Protein 6.8 g/dL (6.5-8.0)
[2023-10-09 02:38] LABS: Troponin-I High Sensitivity 3.5 ng/L (<3.5-17.0)
--- NOTE | 2023-10-09 07:05 | ED_ITS ---
HPI - Weakness General Chief complaint: Weakness Stated complaint: WEAKNESS AND FALL Time Seen by Provider: 10/09/23 07:01 Source: patient and old records reviewed Mode of arrival: EMS Limitations: other (poor historian) History of Present Illness ED Provider: JONNA JOEL Narrative: 52 yo female with PMH of COPD, substance abuse, cardiac arrest, DM, bipolar, trach dependent, pneumonia, here with c/o using bathroom some time in the middle of the night. She states she felt weaker than normal yesterday. She was using the bathroom and felt jerky then tried to get up and fell. She denies head strike but c/o headache no LOC. Patient is very sedate on questioning then started to wheeze and states I dont' know what happened I don't know what happened. She slept in the ED for a few hours before I saw her. She is a poor historian. MD Complaint: generalized weakness Duration: constant Location: generalized Migration: none Severity: moderate Quality: dull Relieving factors: none Exacerbating factors: movement Context: recent illness Associated symptoms: headaches and loss of appetite Related Data Home Medications ?Medication ?Instructions ?Recorded ?Confirmed albuterol sulfate 90 mcg/actuation 2 puff inhalation Q4H PRN wheezing 02/02/23 09/08/23 aerosol inhaler (Ventolin HFA) atorvastatin 10 mg tablet 10 mg PO BEDTIME 02/02/23 09/08/23 clonazepam 1 mg tablet 1 mg PO BID PRN Anxiety 02/02/23 09/08/23 escitalopram oxalate 20 mg tablet 20 mg PO BEDTIME 02/02/23 09/08/23 famotidine 20 mg tablet 20 mg PO BID 02/02/23 09/08/23 fluticasone propionate 50 1 spray intranasal DAILY allergies 02/02/23 09/08/23 mcg/actuation nasal spray,suspension gabapentin 100 mg capsule 100 mg PO TID 02/02/23 09/08/23 glipizide 5 mg tablet 5 mg PO DAILY 02/02/23 09/08/23 insulin lispro 100 unit/mL 1 sliding scale dose subcut TIDAC 02/02/23 09/08/23 subcutaneous pen lurasidone 60 mg tablet 60 mg PO BEDTIME 02/02/23 09/08/23 metformin 500 mg tablet,extended 1,000 mg PO BID 02/02/23 09/08/23 release 24 hr oxcarbazepine 300 mg tablet 300 mg PO BID 02/02/23 09/08/23 trazodone 150 mg tablet 150 mg PO BEDTIME PRN Sleep 02/02/23 09/08/23 insulin glargine 100 unit/mL (3 12 unit subcut DAILY 06/15/23 09/08/23 mL) subcutaneous pen (Lantus Solostar U-100 Insulin) codeine 10 mg-guaifenesin 100 mg/5 10 ml PO Q8H PRN cough 08/18/23 09/08/23 mL oral liquid diphenhydramine HCl 25 mg capsule 50 mg PO DAILY PRN Allergic 08/18/23 09/08/23 (Benadryl) Symptoms ibuprofen 200 mg tablet 200 mg PO Q8H PRN Pain 09/08/23 09/08/23 Allergies Allergy/AdvReac Type Severity Reaction Status Date / Time pantoprazole Allergy Mild Redness of Verified 10/09/23 01:45 Skin Review of Systems 2 Review of Systems: Constitutional : No Fever, No Chills, No Fatigue ENT/Mouth : No sore throat, No Rhinorrhea Eyes: No Eye Pain, No Swelling, No Redness Cardiovascular : No Chest Pain, pos SOB, No Dyspnea on Exertion, pos wheezing Respiratory : No Cough, No Sputum Gastrointestinal : No Nausea, No Vomiting, No Diarrhea, No abdominal Pain Genitourinary : No Dysuria, No Urinary Frequency, No Hematuria, Musculoskeletal : No joint pain, No Myalgias, No Joint Swelling Skin : No Skin Lesions, No rash Neuro : pos Weakness, No Numbness, No Dizziness, positive Headache Psych : No Anxiety/Panic, No Depression All other systems reviewed and are negative [facility] Past Medical History Attestation statement: The following information was validated with the patient. Source: old records reviewed Medical History Partial small bowel obstruction Tracheostomy dependent History of cardiac arrest Wound drainage Takotsubo cardiomyopathy Kidney stones UTI (urinary tract infection) Bipolar 1 disorder Diabetes Asthma Substance abuse Surgical History S/P ureteral stent placement H/O exploratory laparotomy S/P cholecystectomy Family History Family History Mother No pertinent family history Father No pertinent family history Social History Social History Household Members: Spouse Household Members Other:: 1 Housing: Apartment Do you presently have visiting nurse or other home services: Yes ([employer] 7H/week) Alcohol intake: former Comment: stayed in ed Patient Tobacco Use Status: Never used Tobacco Smoked in Last 30 Days: No Second Hand Smoke Exposure: Yes Use of substances other than those prescribed or required for medical reasons: No Advance Directives: Yes Advance Directives on File: Yes Advance Directives Date on File: 02/04/23 Do you have a plan to hurt others: No Plan Patient : No service: No Current occupational status: disabled Physical Exam 2 Vital Signs: Vital Signs: Last Vital Signs Temp 98.7 F 10/09/23 06:00 Pulse 87 10/09/23 12:13 Resp 31 H 10/09/23 12:13 BP 136/61 10/09/23 11:18 Pulse Ox 93 10/09/23 11:37 O2 Del Method Trach Collar 10/09/23 11:37 O2 Flow Rate 6 10/09/23 11:37 BMI result Body Mass Index 41.8 Appearance: Somnolent but easily woken. Oriented X3. No acute distress. Eyes: Pupils equal, round and reactive to light. ENT: Pharynx normal. atraumatic Neck: Normal inspection. Neck supple. CVS: Normal heart rate and rhythm. Pulses normal. Respiratory: No respiratory distress. Breath sounds diminished throughout with diffuse wheezes Abdomen: Soft and non-tender. Skin: Skin warm and dry. Normal skin color. Normal skin turgor. Extremities: No lower extremity edema. Neuro: Oriented X 3. No motor deficit. No sensory deficit. Course Course Course Narrative: RT suctioned trach and placed her on O2 via the trach and she is doing so much better - she is also positive for methadone and is not on methadone and states she doesn't know how that could have happened suspect this is what contributed to her encephalopathy Reevaluation(s) Reevaluation #1: patient now admits to taking her husbands methadone for chronic pain but cannot tell us when Medications Administered Discontinued Medications Generic Name Dose Route Start Last Admin Trade Name Freq PRN Reason Stop Dose Admin Albuterol Sulfate 7.5 mg/ 0 mg 10/09/23 12:05 10/09/23 12:13 Albuterol/Ipratropium 3 ml INHALE 10/09/23 12:06 1 each ONCE ONE Administration Gabapentin 100 mg 10/09/23 11:24 10/09/23 11:31 Gabapentin 100 Mg Capsule PO 10/09/23 11:25 100 mg ONCE ONE Administration Ibuprofen 400 mg 10/09/23 11:23 10/09/23 11:31 Ibuprofen 400 Mg Tablet PO 10/09/23 11:24 400 mg ONCE ONE Administration Methylprednisolone Sodium Succinate 60 mg 10/09/23 07:24 10/09/23 08:37 Methylprednisolone Sod Succ 125 Mg/2 Ml Vial IVPUSH 10/09/23 07:25 60 mg ONCE ONE Administration Medical Decision Making Medical Decision Making [facility] Narrative: 52 yo female with PMH of COPD, substance abuse, cardiac arrest, DM, bipolar, trach dependent, pneumonia, here with c/o feeling weak and jerky with falls at home she c/o headache but denies head strike at this time she appears somnolent and under the influence will obtain basic labs, start on steroids for her asthma, nebs, CPK, CT head/cspine, she denies infectious symptoms as well as drug panel and toxic/metabolic work up. No LOC and jerking is both arms so seizures seem less likely Differential Diagnosis Differential Diagnoses: The differential diagnosis associated with the presentation includes retention, ICH, drug abuse Admission/Observation Consideration of admission/observation: Escalation of care including admission/observation considered she is clearing up no more abnormal movements acting like herself suspect all events related to her methadone use she is admitting it now no SI will monitor for 2 more hours if she is back to her baseline will DC Home she is not retaining she wants to leave she is alert and oriented x 3, she has O2 at home. She was given another neb she states she wants to leave and does not want to be admitted she has gotten up to the commode at this time I am going to have her leave AMA as she is on more O2 than normal. She has no SI. Lab Data [facility] Lab Attestation statement: I reviewed the patient's lab results. 10/09/23 02:14 10/09/23 02:14 Labs: Lab Results 07/28/24 07/28/24 07/28/24 Range/Units 02:09 02:14 07:39 WBC 9.8 (4.8-10.8) X10*3/uL RBC 3.74 L D (4.20-5.50) X10*6/uL Hgb 10.0 L (12.0-16.0) g/dl Hct 32.2 L (37.0-47.0) % MCV 86.1 (80.0-98.0) fL MCH 26.7 L (27.0-33.0) pg MCHC 31.1 (31.0-35.0) g/dl RDW 14.4 (11.0-16.0) % Plt Count 328 (160-400) X10*3/uL MPV 9.4 (9.4-12.3) fL Immature Gran % (Auto) 0.5 H (0.0-0.4) % Neut % (Auto) 80.2 H (45-73) % Lymph % (Auto) 9.7 L (20-40) % [place] % (Auto) 5.9 (2-11) % Eos % (Auto) 3.4 (0-4) % Baso % (Auto) 0.3 (0-2) % Lymph # (Auto) 1.0 L (1.2-4.9) X10*3/uL [place] # (Auto) 0.6 (0.1-1.2) X10*3/uL Eos # (Auto) 0.3 (0.0-0.4) X10*3/uL Baso # (Auto) 0.0 (0.0-0.2) X10*3/uL Abs Immat Gran (auto) 0.05 H (0.00-0.03) X10*3/uL Absolute Neuts (auto) 7.8 (2.0-8.3) x10*3/uL Absolute Nucleated RBC 0.000 (0.0-0.012) X10*3/uL Nucleated RBC % (auto) 0.0 (0.0-0.2) /100WBC PT 11.6 D (11.1-13.3) SEC INR 1.0 (0.9-1.1) VBG pH (7.32-7.43) VBG pCO2 mmHg VBG pO2 mmHg VBG HCO3 (22-26) mmol/L VBG O2 Saturation % VBG Base Excess mmol/L Sodium 139 (135-145) mmol/L Potassium 4.7 (3.3-5.1) mmol/L Chloride 99 (96-108) mmol/L Carbon Dioxide 31 H (22-29) mmol/L Anion Gap 14 (12-20) BUN 23 H (9-16) mg/dL Creatinine 1.17 (0.5-1.4) mg/dL Estim Creat Clear Calc 65.1 Estimated GFR 48 POC Glucose 244 H (60-115) mg/dL Random Glucose 287 H (60-115) mg/dL Calcium 9.3 (8.4-10.2) mg/dL Total Bilirubin 0.2 (0.0-1.0) mg/dL AST 16 (5-31) U/L ALT 20 (0-31) U/L Alkaline Phosphatase 148 H (39-117) U/L Ammonia 34 (13-55) umol/L Total Creatine Kinase 219 H (26-140) U/L Troponin I High Sens 3.5 (<3.5-17.0) ng/L Total Protein 6.8 (6.5-8.0) g/dL Albumin 3.7 (3.5-5.0) g/dL Urine Opiates Screen (Not Detect) Ur Buprenorphine Scrn (Not Detect) ng/mL Ur Oxycodone Screen (Not Detect) ng/mL Urine Methadone Screen (Not Detect) ng/mL Urine Fentanyl Screen (Not Detect) Ur Barbiturates Screen (Not Detect) Ur Phencyclidine Scrn (Not Detect) Ur Amphetamines Screen (Not Detect) U Benzodiazepines Scrn (Not Detect) Urine Cocaine Screen (Not Detect) U Marijuana (THC) Screen (Not Detect) Ethyl Alcohol < 10 mg/dL 10/09/23 10/09/23 Range/Units 07:41 08:53 WBC (4.8-10.8) X10*3/uL RBC (4.20-5.50) X10*6/uL Hgb (12.0-16.0) g/dl Hct (37.0-47.0) % MCV (80.0-98.0) fL MCH (27.0-33.0) pg MCHC (31.0-35.0) g/dl RDW (11.0-16.0) % Plt Count (160-400) X10*3/uL MPV (9.4-12.3) fL Immature Gran % (Auto) (0.0-0.4) % Neut % (Auto) (45-73) % Lymph % (Auto) (20-40) % [place] % (Auto) (2-11) % Eos % (Auto) (0-4) % Baso % (Auto) (0-2) % Lymph # (Auto) (1.2-4.9) X10*3/uL [place] # (Auto) (0.1-1.2) X10*3/uL Eos # (Auto) (0.0-0.4) X10*3/uL Baso # (Auto) (0.0-0.2) X10*3/uL Abs Immat Gran (auto) (0.00-0.03) X10*3/uL Absolute Neuts (auto) (2.0-8.3) x10*3/uL Absolute Nucleated RBC (0.0-0.012) X10*3/uL Nucleated RBC % (auto) (0.0-0.2) /100WBC PT (11.1-13.3) SEC INR (0.9-1.1) VBG pH 7.51 H (7.32-7.43) VBG pCO2 38 mmHg VBG pO2 122 mmHg VBG HCO3 30 H (22-26) mmol/L VBG O2 Saturation 100.0 % VBG Base Excess 7.2 mmol/L Sodium (135-145) mmol/L Potassium (3.3-5.1) mmol/L Chloride (96-108) mmol/L Carbon Dioxide (22-29) mmol/L Anion Gap (12-20) BUN (9-16) mg/dL Creatinine (0.5-1.4) mg/dL Estim Creat Clear Calc Estimated GFR POC Glucose (60-115) mg/dL Random Glucose (60-115) mg/dL Calcium (8.4-10.2) mg/dL Total Bilirubin (0.0-1.0) mg/dL AST (5-31) U/L ALT (0-31) U/L Alkaline Phosphatase (39-117) U/L Ammonia (13-55) umol/L Total Creatine Kinase (26-140) U/L Troponin I High Sens (<3.5-17.0) ng/L Total Protein (6.5-8.0) g/dL Albumin (3.5-5.0) g/dL Urine Opiates Screen Not Detected (Not Detect) Ur Buprenorphine Scrn Not Detected (Not Detect) ng/mL Ur Oxycodone Screen Not Detected (Not Detect) ng/mL Urine Methadone Screen Positive H (Not Detect) ng/mL Urine Fentanyl Screen Not Detected (Not Detect) Ur Barbiturates Screen Not Detected (Not Detect) Ur Phencyclidine Scrn Not Detected (Not Detect) Ur Amphetamines Screen Not Detected (Not Detect) U Benzodiazepines Scrn Not Detected (Not Detect) Urine Cocaine Screen Not Detected (Not Detect) U Marijuana (THC) Screen Not Detected (Not Detect) Ethyl Alcohol mg/dL Independent Interpretation I performed an independent interpretation of an: EKG, Plain X-Ray (normal ) and CT Scan (no trauma) Interpretation: Rate: 90 Rhythm: NSR [place]: left Normal P waves. Normal SHE[place]. Normal QRS complex. ST T wave : no LULI, normal qTC: 457 prior studies: no acute ischemia The study has been interpreted contemporaneously by me. . Radiology Impression Discussion of test interpretation with radiology: I have reviewed the radiologist's reading. Independent Historian Clinical information obtained from an independent historian. History obtained from or confirmed by: EMS External Record Review External record reviewed: Inpatient record Critical Care Time Critical Care Time Critical Care Time: Yes Total Critical Care Time: 60 Attestation: repeat assessments, review of records, trach care, repeat nebs, IV steroids, observation until cleared from methadone I attest to this time spent taking care of the patient Discharge Plan Discharge Clinical Impression: Encephalopathy acute, Methadone use Asthma with exacerbation Qualifiers: Asthma severity: severe Asthma persistence: persistent Qualified Code(s): J 45.51 - Severe persistent asthma with (acute) exacerbation Patient Disposition: Left Against Medical Advice Instructions: Asthma (ED), Against Medical Advice (ED), Opioid Use Disorder (ED) Additional Instructions: return for worsening symptoms you put yourself at serious risk by taking methadone you could have . please do not do this again. please monitor your breathing your oxygen needs were slightly higher than baseline at 6L continue to monitor your breathing. we wanted to watch you longer. you can return at any time Prescriptions: No Action insulin glargine [Lantus Solostar U-100 Insulin] 100 unit/mL (3 mL) insulin pen 12 unit subcut DAILY codeine-guaifenesin 10-100 mg/5 mL liquid 10 ml PO Q8H PRN (Reason: cough) diphenhydramine HCl [Benadryl] 25 mg Capsule 50 mg PO DAILY PRN (Reason: Allergic Symptoms) ibuprofen 200 mg Tablet 200 mg PO Q8H PRN (Reason: Pain) atorvastatin 10 mg tablet 10 mg PO BEDTIME clonazepam 1 mg tablet 1 mg PO BID PRN (Reason: Anxiety) oxcarbazepine 300 mg tablet 300 mg PO BID famotidine 20 mg tablet 20 mg PO BID trazodone 150 mg tablet 150 mg PO BEDTIME PRN (Reason: Sleep) gabapentin 100 mg capsule 100 mg PO TID albuterol sulfate [Ventolin HFA] 90 mcg/actuation HFA aerosol inhaler 2 puff inhalation Q4H PRN (Reason: wheezing) fluticasone propionate 50 mcg/actuation spray,suspension 1 spray intranasal DAILY Rx Instructions: INHALE IN BOTH NOSTRILS metformin 500 mg tablet extended release 24 hr 1,000 mg PO BID glipizide 5 mg tablet 5 mg PO DAILY insulin lispro 100 unit/mL insulin pen 1 sliding scale dose subcut TIDAC escitalopram oxalate 20 mg tablet 20 mg PO BEDTIME lurasidone 60 mg tablet 60 mg PO BEDTIME Print Language: Anguill[place]
[2023-10-09 07:48] LABS: Venous Blood Gas Refer to POC result
[2023-10-09 07:48] LABS: VBG Base Excess 7.2 mmol/L; VBG HCO3 30 mmol/L (22-26); VBG pCO2 38 mmHg; VBG pH 7.51 (7.32-7.43); VBG pO2 122 mmHg
[2023-10-09 07:58] LABS: Ethanol < 10 mg/dL
[2023-10-09 07:58] LABS: Ammonia 34 umol/L (13-55)
[2023-10-09] MEDS: methylPREDNISolone Sod Succ 125 MG/2 ML VIAL 60 MG IVPUSH (08:37)
--- NOTE | 2023-10-09 08:54 | PC.NURSE ---
pt 1 assist to bedside commode, urine sample obtained.
[2023-10-09 09:14] LABS: Amphetamine Screen Urine Not Detected (Not Detect); Barbiturates, Urine Not Detected (Not Detect); Benzodiazepines Screen Urine Not Detected (Not Detect); Buprenorphine Scr Not Detected (Not Detect); Cannabinoid Screen Urine Not Detected (Not Detect); Cocaine Screen Urine Not Detected (Not Detect); Fentanyl, urine Not Detected (Not Detect); Methadone Screen, Urine Positive (Not Detect); Opiate Screen Urine Not Detected (Not Detect); Oxycodone Screen Urine Not Detected (Not Detect); Phencyclidine Screen Urine Not Detected (Not Detect)
[2023-10-09] MEDS: Gabapentin 100 MG CAPSULE PO (11:31)
[2023-10-09] MEDS: Ibuprofen 400 MG TABLET PO (11:31)
--- NOTE | 2023-10-09 11:35 | PC.NURSE ---
Pt c/o neuropathy pain; reported to provider and Pt medicated per MAR orders. Discussed with Pt the need to begin to titrate her supplemental O2 to her at home setting of 4L. Pt agreeable to try but feels she is still having a hard time breathing. O2 adjusted to 6L and Pt tolerating well at this time. Will reassess and readjust/titrate down as tolerated.
--- NOTE | 2023-10-09 11:49 | PC.NURSE ---
Pt requesting deep suction; respiratory contacted.
[2023-10-09] MEDS: Albuterol Sulfate 7.5 MG, Albuterol/Iprat 2.5/0.5MG 3 ML 3 ML INHALE (12:13)
[2023-10-09] MEDS: Naloxone HCl Nasal TAKE HOME 4 MG SPRAY 8 MG NOSTRILALT (12:56)
[2023-10-09 13:01] LABS: Glucose, Whole Blood 421 mg/dL (60-115)
[2023-10-09] MEDS: Insulin Lispro 100 UNIT/ML 3 ML VIAL SUBCUT (13:06)
--- NOTE | 2023-10-09 13:06 | MHC.EDTECH ---
CALLED FREDERICK AT [facility] 1:04PM FOR AIMEE NUNEZ 2PM
== END 2023-10-09 15:52 | disposition left against medical advice (07) ==
PROVIDERS: Emergency Provider Emergency Medicine
DX: S06.89AA Other specified intracranial injury with loss of consciousness status unknown, initial encounter (principal); J45.51 Severe persistent asthma with (acute) exacerbation; R51.9 Headache, unspecified; R53.1 Weakness; E11.9 Type 2 diabetes mellitus without complications; G89.29 Other chronic pain; J44.9 Chronic obstructive pulmonary disease, unspecified; M54.2 Cervicalgia; R94.31 Abnormal electrocardiogram [ECG] [EKG]; Z99.81 Dependence on supplemental oxygen; Z79.891 Long term (current) use of opiate analgesic; Z93.0 Tracheostomy status; Z79.4 Long term (current) use of insulin; Z79.899 Other long term (current) drug therapy
CPT/HCPCS: 36415; 70450; 71045; 72125; 80053; 80307; 82140; 82550; 82803; 82947; 84484; 85025; 85610; 93005; 94640; 96374; 99285; J2919

== ENCOUNTER → 2023-10-09 01:33 | Outpatient (BNV) | payer OTHER, SELFPAY | PROVIDERS: Emergency Provider Emergency Medicine; Visit Provider Internal Medicine | DX: R53.1 Weakness (principal); R94.31 Abnormal electrocardiogram [ECG] [EKG] | CPT/HCPCS: 93010 ==

== ENCOUNTER 2023-10-11 10:20 | Outpatient (REF) | payer OTHER, SELFPAY ==
--- NOTE | ~2023-10-11 | XR_ITS ---
EXAMINATION: XR ANKLE, LEFT CLINICAL INFORMATION: Left ankle pain. COMPARISON: Multiple priors, most recently 09/13/2023. TECHNIQUE: AP, lateral, and mortise views of the left ankle. FINDINGS: Again seen is an oblique Hernandez B distal fibular fracture with distal fragment as well as apex anteromedial angulation at the fracture site. There is medial displacement of the medial malleolar fracture fragment by up to 8 mm with associated widening of the medial clear space, unchanged as compared to prior. There is lateral subluxation of the talus relative to the tibial plafond, unchanged. Nonuniform joint space narrowing is present at the tibiotalar joint. Subchondral cystic changes present in the lateral third of the talar dome. Soft tissues are swollen. Bones are osteopenic. Mild osteoarthritis in the midfoot. XR/XR ankle LT min 3V IMPRESSION: Unchanged alignment of the displaced bimalleolar fractures with lateral subluxation of the talus relative to the tibial plafond.
== END 2023-10-11 10:21 | disposition home or self-care (01) ==
LOC: HO.HOSX 10:20
PROVIDERS: Visit Provider Physician Assistant
DX: M25.571 Pain in right ankle and joints of right foot (principal); S82.842A Displaced bimalleolar fracture of left lower leg, initial encounter for closed fracture
CPT/HCPCS: 73610; 99212

== ENCOUNTER 2023-10-11 13:31 | Outpatient (AMB) | payer OTHER, SELFPAY ==
--- NOTE | 2023-10-11 13:45 | MHC.OFFVIS ---
Intake Visit Reasons: OV - left ankle fx, DOI 06/14/23 Intake Note: Anna Marie is a 52 year old female who presents today wearing a boot for follow up of her left bimalleolar fx, DOI 06/14/23. Patient reports she is doing okay although her pain is on and off, 8 on 0-10 pain scale. She is currently taking ibuprofen 600 mg 2-3 times a day with some relief. Patient states she is not healing and hope for a change. Allergies pantoprazole Allergy (Mild, Verified 10/11/23 13:48) Redness of Skin HPI HPI OV - left ankle fx, DOI 06/14/23: Details: 52-year-old female who presents in the office today, wearing the walking boot, for a follow-up of left ankle bimalleolar fracture, which occurred on 06/14/2023 status post attempting to get into bed when she tripped and fell. The patient was last seen in the office on 09/13/23 by OSEI Crook, when she was placed in a tall walking boot and was cleared to weight bear as tolerated. ? ? While in the office today, the patient reports she is doing ?okay?. She states her pain is an 8/10. She confirms the use of ibuprofen 600 mg two to three times daily with mild relief. [facility] Medical History Partial small bowel obstruction Tracheostomy dependent History of cardiac arrest Wound drainage Takotsubo cardiomyopathy Kidney stones UTI (urinary tract infection) Bipolar 1 disorder Diabetes Asthma Substance abuse Surgical History S/P ureteral stent placement H/O exploratory laparotomy S/P cholecystectomy Family History Mother No pertinent family history Father No pertinent family history Social History Household Members: Spouse Household Members Other:: 1 Housing: Apartment Do you presently have visiting nurse or other home services: Yes ([employer] 7H/week) Alcohol intake: former Comment: stayed in ed Patient Tobacco Use Status: Never used Tobacco Second Hand Smoke Exposure: Yes Advance Directives Date on File: 02/04/23 service: No Current occupational status: disabled Review of Systems Const All systems reviewed & are unremarkable except as noted in HPI and below Physical Exam Const General: cooperative, healthy appearing and no acute distress Resp Effort & Inspection: normal respiratory effort and able to speak in complete sentences Cardio Rate: regular rate Peripheral pulses: Peripheral pulses 2+ throughout GI Palpation (GI): Soft to palpation Skin Lesions: no lesions Rashes: no rashes Extrem Other: Left ankle: Mild edema circumferentially. Tenderness to palpation over the medial and lateral malleolus. Skin is intact. No surrounding erythema or drainage. No signs of infection. Able to dorsiflex and plantarflex, pronate and supinate but is limited due to stiffness. The patient has decreased ROM and sensation due neuropathy at her baseline. Her sensation is at her baseline. Pedal pulse intact. ? Assessment & Plan Assessment & Plan (1) Bimalleolar fracture of left ankle: Code(s): S82.842A - Displaced bimalleolar fracture of left lower leg, initial encounter for closed fracture Category: Medical Qualifiers: Encounter type: initial encounter Fracture type: closed Qualified Code(s): S82.842A - Displaced bimalleolar fracture of left lower leg, initial encounter for closed fracture Plan Ms. Black is a 52-year-old female who presents in the office today, wearing the walking boot, for a follow-up of left ankle bimalleolar fracture, which occurred on 06/14/2023 status post attempting to get into bed when she tripped and fell. The patient was last seen in the office on 09/13/23 by Juan Ramon Love PA-C, when she was placed in a tall walking boot and was cleared to weight bear as tolerated. ? ? While in the office today, the patient reports she is doing ?okay?. She states her pain is an 8/10. She confirms the use of ibuprofen 600 mg two to three times daily with mild relief.?Pain and difficulty with ambulating. ? The patient will continue to wear the walking boot. A referral was made for the patient to attend PT to work on ROM and gait training. Follow-up will be in six weeks, or sooner if needed. ? ? X-rays of the left ankle which were obtained while in the office today and were reviewed by me, Portia Elizabeth PA-C, redemonstration of a bimalleolar fracture with displacement. Signs of carlita callus formation at the fracture sites with continued demonstration of mortise disruption. ? Orders: Orders PT Evaluation and Treatment Today S82.842A - Displaced bimalleolar fracture of left lower leg, initial encounter for closed fracture XR ankle LT min 3V Today M25.579 - Pain in unspecified ankle and joints of unspecified foot Patient Instructions: Scribed by Meli Singh medical observer, for Portia Elizabeth PA-C on 10/11/2023 at 1:35 pm, EST. Coding Level of Care Code Global (72359) Diagnoses Closed bimalleolar fracture of left ankle, initial encounter S82.842A Encounter type: initial encounter Fracture type: closed
== END 2023-10-11 14:00 | disposition home or self-care (01) ==
PROVIDERS: PCP Internal Medicine; Visit Provider Physician Assistant
DX: S82.842A Displaced bimalleolar fracture of left lower leg, initial encounter for closed fracture (principal)
CPT/HCPCS: 99213

== ENCOUNTER 2023-11-24 12:06 | Outpatient (REF) | payer OTHER, SELFPAY ==
--- NOTE | ~2023-11-24 | XR_ITS ---
EXAMINATION: XR ANKLE, LEFT CLINICAL INFORMATION: Pain. COMPARISON: 10/11/2023 TECHNIQUE: AP, lateral, and mortise views of the left ankle. FINDINGS: Diffuse soft tissue swelling with ankle joint effusion. Diffuse demineralization. Small posterior and plantar calcaneal spurs. Moderate degenerative changes at the midfoot. Redemonstration of oblique fracture of the distal fibular shaft with some interval healing. Redemonstration of displaced transverse fracture of the medial malleolus with similar alignment and some bridging callus formation. Persistent disruption of the ankle mortise with medial widening and subluxation. XR/XR ankle LT min 3V IMPRESSION: 1. Redemonstration of oblique fracture of the distal fibular shaft with some interval healing. 2. Redemonstration of displaced transverse fracture of the medial malleolus with similar alignment and some bridging callus formation. 3. Persistent disruption of the ankle mortise with medial widening and subluxation. Electronically signed by: Alethea Solares MD 12/07/2023 03:05 PM EDT
== END 2023-11-24 12:07 | disposition home or self-care (01) ==
LOC: HO.HOSX 12:06
PROVIDERS: Visit Provider Physician Assistant
DX: M25.572 Pain in left ankle and joints of left foot (principal); S82.842D Displaced bimalleolar fracture of left lower leg, subsequent encounter for closed fracture with routine healing
CPT/HCPCS: 73610; 99212

== ENCOUNTER 2023-11-24 12:42 | Outpatient (AMB) | payer OTHER, SELFPAY ==
--- NOTE | 2023-11-24 13:33 | A.OFFVIS_ITS ---
Intake Visit Reasons: OV-left ankle fx, DOI 06/14/23-w/xray Intake Note: Anna Marie is a 52 year old female who presents today wearing a boot for follow up of her left bimalleolar fx, DOI 06/14/23. Patient reports she is doing okay, she has been able to apply more pressure. She continues to have ongoing pain however she does find relief with ibuprofen. Allergies pantoprazole Allergy (Mild, Verified 11/24/23 13:35) Redness of Skin HPI HPI OV-left ankle fx, DOI 06/14/23-w/xray: Details: 53-year-old female who presents in the office today for a follow-up of left ankle bimalleolar fracture, which occurred on 06/14/2023 status post attempting to get into bed when she tripped and fell. I last saw the patient in the office on 10/11/23 when she was to continue to wear the walking boot. She was also referred to PT to work on ROM and gait training. ? ? While in the office today, the patient reports she is doing okay and has been able to apply pressure to the left lower extremity. She does report continued pain but finds relief with ibuprofen. ? [facility] Medical History Partial small bowel obstruction Tracheostomy dependent History of cardiac arrest Wound drainage Takotsubo cardiomyopathy Kidney stones UTI (urinary tract infection) Bipolar 1 disorder Diabetes Asthma Substance abuse Surgical History S/P ureteral stent placement H/O exploratory laparotomy S/P cholecystectomy Family History Mother No pertinent family history Father No pertinent family history Social History Household Members: Spouse Household Members Other:: 1 Housing: Apartment Do you presently have visiting nurse or other home services: Yes ([employer] 7H/week) Alcohol intake: former Comment: stayed in ed Patient Tobacco Use Status: Never used Tobacco Second Hand Smoke Exposure: Yes Advance Directives Date on File: 02/04/23 service: No Current occupational status: disabled Review of Systems Const All systems reviewed & are unremarkable except as noted in HPI and below Physical Exam Const General: cooperative, healthy appearing and no acute distress Resp Effort & Inspection: normal respiratory effort and able to speak in complete sentences Cardio Rate: regular rate Peripheral pulses: Peripheral pulses 2+ throughout GI Palpation (GI): Soft to palpation Skin Lesions: no lesions Rashes: no rashes Extrem Other: Left ankle: Mild edema circumferentially. Tenderness to palpation over the medial and lateral malleolus. Skin is intact. No surrounding erythema or drainage. No signs of infection. Able to dorsiflex and plantarflex, pronate and supinate but is limited due to stiffness. The patient has decreased ROM and sensation due neuropathy at her baseline. Her sensation is at her baseline. Pedal pulse intact. ? Assessment & Plan Assessment & Plan (1) Bimalleolar fracture of left ankle: Code(s): S82.842A - Displaced bimalleolar fracture of left lower leg, initial encounter for closed fracture Category: Medical Qualifiers: Encounter type: initial encounter Fracture type: closed Qualified Code(s): S82.842A - Displaced bimalleolar fracture of left lower leg, initial encounter for closed fracture Plan Ms. Black is a 53-year-old female who presents in the office today for a follow-up of left ankle bimalleolar fracture, which occurred on 06/14/2023 status post attempting to get into bed when she tripped and fell. I last saw the patient in the office on 10/11/23 when she was to continue to wear the walking boot. She was also referred to PT to work on ROM and gait training. ? ? While in the office today, the patient reports she is doing okay and has been able to apply pressure to the left lower extremity. She does report continued pain but finds relief with ibuprofen.? ? At the patient ?s last appointment she was referred to PT but did not attend. We discussed the role of PT and working on gait training as well as ankle strengthening and stabilization. She is willing to attend [facility] in [place] and a referral has been placed for her to attend. She will need [employer] accommodation. Follow-up will be in six weeks, or sooner if needed. ? ? X-rays of the left ankle which were obtained while in the office today and were reviewed by me, oPrtia Elizabeth PA-C, revealed unchanged alignment of a bimalleolar fracture with routine healing. ? Orders: Orders PT Evaluation and Treatment Today S82.842A - Displaced bimalleolar fracture of left lower leg, initial encounter for closed fracture XR ankle LT min 3V Today M25.579 - Pain in unspecified ankle and joints of unspecified foot Patient Instructions: Scribed by Meli Singh medical physics researcher, for Portia Elizabeth PA-C on 11/24/2023 at 1:25 pm, EST.? Coding Level of Care Code Est Pt Level 3 (98822) Complex EM visit Add On G2211 Diagnoses Closed bimalleolar fracture of left ankle, initial encounter S82.842A Encounter type: initial encounter Fracture type: closed
== END 2023-11-24 13:46 | disposition home or self-care (01) ==
PROVIDERS: Visit Provider Physician Assistant
DX: S82.842A Displaced bimalleolar fracture of left lower leg, initial encounter for closed fracture (principal); W01.0XXA Fall on same level from slipping, tripping and stumbling without subsequent striking against object, initial encounter
CPT/HCPCS: 99213; G2211

== ENCOUNTER 2023-12-22 14:04 | Outpatient (REF) | payer OTHER, SELFPAY | END 2023-12-22 14:05 | disposition home or self-care (01) | LOC: HO.HOSX 14:04 | PROVIDERS: Visit Provider Physician Assistant | DX: Z13.89 Encounter for screening for other disorder (principal) ==

== ENCOUNTER 2024-03-23 04:11 | Emergency (ER) | payer OTHER, SELFPAY ==
--- NOTE | ~2024-03-23 | XR_ITS ---
CLINICAL HISTORY: cough, sob 1 view chest x-ray Comparison: 10/09/2023 Findings: Portions of the exam are obscured by overlying material. The lungs are clear. Heart size is normal. No acute fracture. IMPRESSION: 1. No acute findings. This document has been electronically signed by: Vinod Morejon MD on 03/23/2024 05:32:57
[2024-03-23 04:14] VITALS: BP 110/70; PULSE 80; O2SAT 95
[2024-03-23 04:31] VITALS: BP 134/67; PULSE 103; RESP 16; TEMP 36.8; O2SAT 96; BMI 45.2
[2024-03-23 04:56] LABS: Hematocrit 35.6 % (37.0-47.0); Hemoglobin 11.5 g/dl (12.0-16.0); Mean Corpuscular HGB Conc 32.3 g/dl (31.0-35.0); Mean Corpuscular Hemoglobin 26.9 pg (27.0-33.0); Mean Corpuscular Volume 83.4 fL (80.0-98.0); Mean Platelet Volume 8.9 fL (9.4-12.3); Platelet Count 296 X10*3/uL (160-400); Red Blood Count 4.27 X10*6/uL (4.20-5.50); Red Cell Distribution Width 13.9 % (11.0-16.0); White Blood Count 9.7 X10*3/uL (4.8-10.8)
[2024-03-23 05:17] LABS: Alanine Aminotransferase 24 U/L (0-31); Albumin Level 3.8 g/dL (3.5-5.0); Alkaline Phosphatase 200 U/L (39-117); Anion Gap 16 (12-20); Aspartate Amino Transferase 29 U/L (5-31); Bilirubin Total 0.4 mg/dL (0.0-1.0); Blood Urea Nitrogen 16 mg/dL (9-16); Calcium 9.5 mg/dL (8.4-10.2); Carbon Dioxide 30 mmol/L (22-29); Chloride 94 mmol/L (96-108); Creatinine Clr Calc Pharmacy 65.7; Estimated Glomerular Filt Rate 47; Glucose Random 366 mg/dL (60-115); Sodium 135 mmol/L (135-145); Total Protein 7.3 g/dL (6.5-8.0)
[2024-03-23 05:18] VITALS: BP 134/67; PULSE 103; RESP 16; TEMP 36.8; O2SAT 96
--- NOTE | 2024-03-23 05:21 | ED_ITS ---
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 at baseline, asthma, diabetes, mood disorder, hx of PE comes here for 3- 4 days of increased shortness of breath requiring higher oxygen to 4 L at home has a low- grade fever patient has recently travel to [place] to see his father who was diagnose with flu patient noticed thick secretions in the tracheostomy Related Data Home Medications ?Medication ?Instructions ?Recorded ?Confirmed albuterol sulfate 90 mcg/actuation 2 puff inhalation Q4H PRN wheezing 02/02/23 09/08/23 aerosol inhaler (Ventolin HFA) atorvastatin 10 mg tablet 10 mg PO BEDTIME 02/02/23 09/08/23 clonazepam 1 mg tablet 1 mg PO BID PRN Anxiety 02/02/23 09/08/23 escitalopram oxalate 20 mg tablet 20 mg PO BEDTIME 02/02/23 09/08/23 famotidine 20 mg tablet 20 mg PO BID 02/02/23 09/08/23 fluticasone propionate 50 1 spray intranasal DAILY allergies 02/02/23 09/08/23 mcg/actuation nasal spray,suspension gabapentin 100 mg capsule 100 mg PO TID 02/02/23 09/08/23 glipizide 5 mg tablet 5 mg PO DAILY 02/02/23 09/08/23 insulin lispro 100 unit/mL 1 sliding scale dose subcut TIDAC 02/02/23 09/08/23 subcutaneous pen lurasidone 60 mg tablet 60 mg PO BEDTIME 02/02/23 09/08/23 metformin 500 mg tablet,extended 1,000 mg PO BID 02/02/23 09/08/23 release 24 hr oxcarbazepine 300 mg tablet 300 mg PO BID 02/02/23 09/08/23 trazodone 150 mg tablet 150 mg PO BEDTIME PRN Sleep 02/02/23 09/08/23 insulin glargine 100 unit/mL (3 12 unit subcut DAILY 06/15/23 09/08/23 mL) subcutaneous pen (Lantus Solostar U-100 Insulin) codeine 10 mg-guaifenesin 100 mg/5 10 ml PO Q8H PRN cough 08/18/23 09/08/23 mL oral liquid diphenhydramine HCl 25 mg capsule 50 mg PO DAILY PRN Allergic 08/18/23 09/08/23 (Benadryl) Symptoms ibuprofen 200 mg tablet 200 mg PO Q8H PRN Pain 09/08/23 09/08/23 Previous Rx's ?Medication ?Instructions ?Recorded cefdinir 300 mg capsule 300 mg PO BID #20 caps 03/23/24 prednisone 20 mg tablet 40 mg (2 x 20 mg) PO DAILY #10 tabs 03/23/24 Allergies Allergy/AdvReac Type Severity Reaction Status Date / Time pantoprazole Allergy Mild Redness of Verified 03/23/24 04:32 Skin Review of Systems 2 Review of Systems: Yes all other systems are reviewed and are negative PMFSH Past Medical History Medical History Partial small bowel obstruction Tracheostomy dependent History of cardiac arrest Wound drainage Takotsubo cardiomyopathy Kidney stones UTI (urinary tract infection) Bipolar 1 disorder Diabetes Asthma Substance abuse Surgical History S/P ureteral stent placement H/O exploratory laparotomy S/P cholecystectomy Family History Family History Mother No pertinent family history Father No pertinent family history Social History Social History Household Members: Spouse Household Members Other:: 1 Housing: Apartment Do you presently have visiting nurse or other home services: Yes ([employer] 7H/week) Alcohol intake: former Comment: stayed in ed Patient Tobacco Use Status: Never used Tobacco Smoked in Last 30 Days: Yes Second Hand Smoke Exposure: Yes Use of substances other than those prescribed or required for medical reasons: No Any prior treatment program specific to substance use: Yes Advance Directives: Yes Advance Directives on File: Yes Advance Directives Date on File: 02/04/23 Patient : No service: No Current occupational status: disabled Physical Exam 2 Vital Signs: Vital Signs: Last Vital Signs Temp 98.7 F 03/23/24 06:16 Pulse 102 H 03/23/24 06:16 Resp 21 H 03/23/24 06:16 BP 120/86 03/23/24 06:16 Pulse Ox 96 03/23/24 06:16 O2 Del Method Nasal Cannula 03/23/24 06:16 O2 Flow Rate 2 03/23/24 06:16 Oxygen Flow Rate 2 03/23/24 04:31 BMI result Body Mass Index 45.2 Appearance: Alert. Oriented X3. No acute distress. Eyes: PERRLA, No Nystagmus ENT: Pharynx normal. Oral Mucosa moist tracheostomy in place Neck: Normal inspection. Neck supple. CVS: Normal heart rate and rhythm. Pulses normal. Respiratory: No respiratory distress. Equal air entry bilateral, no wheezing/rales/rhonchi bilateral decreased air entry Abdomen: Soft and nontender. Bowel sounds are present, no mass palpable, no CVA tenderness Skin: Skin warm and dry. Normal skin color. Normal skin turgor. Extremities: No lower extremity edema. No calf tenderness Neuro: Oriented X 3. No motor deficit. No sensory deficit.No cerebellar signs , cranial nerves II-XII intact Medications Administered Discontinued Medications Generic Name Dose Route Start Last Admin Trade Name Freq PRN Reason Stop Dose Admin Ceftriaxone Sodium 1 gm 03/23/24 05:39 03/23/24 06:18 Ceftriaxone Sodium 1 Gm Vial IVPUSH 03/23/24 05:40 1 gm ONCE ONE Administration Albuterol Sulfate 5 mg/ 0 mg 03/23/24 05:39 03/23/24 05:54 Albuterol/Ipratropium 3 ml INHALE 03/23/24 05:40 7.5 each ONCE ONE Administration Methylprednisolone Sodium Succinate 125 mg 03/23/24 05:39 03/23/24 06:18 Methylprednisolone Sod Succ 125 Mg/2 Ml Vial IVPUSH 03/23/24 05:40 125 mg ONCE ONE Administration Morphine Sulfate 4 mg 03/23/24 05:39 03/23/24 06:18 Morphine Sulfate 4 Mg/Ml Cartridge IVPUSH 03/23/24 05:40 4 mg ONCE ONE Administration Protocol Ondansetron HCl 4 mg 03/23/24 05:39 03/23/24 06:18 Ondansetron Hcl 4 Mg/2 Ml Vial IVPUSH 03/23/24 05:40 4 mg ONCE ONE Administration Medical Decision Making Medical Decision Making [facility] Narrative: Patient is 53 years old with history of prior cardiac arrest complicated by pancreatitis 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 at baseline, asthma, diabetes, mood disorder, hx of PE comes here for 3- 4 days of increased shortness of breath workup showed RSV bronchitis chest x-ray is negative patient has had slightly elevated lactic acid level 2.7 secondary to nebulizing treatment patient feels much better to go home will discharge patient home on supportive treatment and antibiotics patient is saturating 96% on 2 L nasal cannula which she takes at baseline will discharge patient home Differential Diagnosis Differential Diagnoses: The differential diagnosis associated with the presentation includes Asthma/pneumonia/viral bronchitis/COVID/RSV Admission/Observation Consideration of admission/observation: Escalation of care including admission/observation considered Lab Data [facility] Lab Attestation statement: I reviewed the patient's lab results. 03/23/24 04:51 03/23/24 04:51 Labs: Lab Results 03/23/24 03/23/24 03/23/24 Range/Units 04:51 06:05 06:10 WBC 9.7 (4.8-10.8) X10*3/uL RBC 4.27 (4.20-5.50) X10*6/uL Hgb 11.5 L (12.0-16.0) g/dl Hct 35.6 L (37.0-47.0) % MCV 83.4 (80.0-98.0) fL MCH 26.9 L (27.0-33.0) pg MCHC 32.3 (31.0-35.0) g/dl RDW 13.9 (11.0-16.0) % Plt Count 296 (160-400) X10*3/uL MPV 8.9 L (9.4-12.3) fL Absolute Nucleated RBC 0.000 (0.0-0.012) X10*3/uL Nucleated RBC % (auto) 0.0 (0.0-0.2) /100WBC VBG pH 7.37 (7.32-7.43) VBG pCO2 58 mmHg VBG pO2 57 mmHg VBG HCO3 34 H (22-26) mmol/L VBG O2 Saturation 81.0 % VBG Base Excess 7.0 mmol/L Sodium 135 (135-145) mmol/L Potassium 5.0 (3.3-5.1) mmol/L Chloride 94 L (96-108) mmol/L Carbon Dioxide 30 H (22-29) mmol/L Anion Gap 16 (12-20) BUN 16 (9-16) mg/dL Creatinine 1.20 (0.5-1.4) mg/dL Estim Creat Clear Calc 65.7 Estimated GFR 47 Random Glucose 366 H* (60-115) mg/dL Lactic Acid 2.7 H* (0.5-2.0) mmol/L Calcium 9.5 (8.4-10.2) mg/dL Total Bilirubin 0.4 (0.0-1.0) mg/dL AST 29 (5-31) U/L ALT 24 (0-31) U/L Alkaline Phosphatase 200 H (39-117) U/L Total Protein 7.3 (6.5-8.0) g/dL Albumin 3.8 (3.5-5.0) g/dL Influenza Type A (PCR) NEGATIVE (Negative) Influenza Type B (PCR) NEGATIVE (Negative) RSV RNA Qual (PCR) POSITIVE A (Negative) SARS-CoV-2 RNA (RT-PCR) NEGATIVE (Negative) Independent Interpretation I performed an independent interpretation of an: Plain X-Ray Interpretation: [place] [id number] XRay Report Signed Patient: Anna Marie Black MR#: [id number] : 1970 Acct:[id number] Age/Sex: 53 / F ADM Date: 03/23/24 Loc: .ED Attending Dr: Ordering Physician: Baljinder Francisco MD Date of Service: 03/23/24 Procedure(s): XR chest 1V Accession Number(s): [id number] cc: Megan Mosqueda MD; Baljinder Francisco MD~ CLINICAL HISTORY: cough, sob 1 view chest x-ray Comparison: 10/09/2023 Findings: Portions of the exam are obscured by overlying material. The lungs are clear. Heart size is normal. No acute fracture. IMPRESSION: 1. No acute findings. This document has been electronically signed by: Vinod Morejon MD on 03/23/2024 05:32:57 Radiology Impression Discussion of test interpretation with radiology: I have reviewed the radiologist's reading. Discharge Plan Discharge Clinical Impression: Acute bronchitis due to respiratory syncytial virus, Acute and chronic respiratory failure with hypoxia Patient Disposition: Home, Self-Care Instructions: Respiratory Syncytial Virus (ED), Acute Bronchitis (ED), Chronic Respiratory Failure (DC) Additional Instructions: Continue to use your nebulizer treatments Oxygen as advised Prednisone and antibiotic as prescribed Follow with your distribution systems serviceperson/PCP if not better Prescriptions: New cefdinir 300 mg capsule 300 mg PO BID Qty: 20 0RF prednisone 20 mg tablet 40 mg PO DAILY Qty: 10 0RF No Action insulin glargine [Lantus Solostar U-100 Insulin] 100 unit/mL (3 mL) insulin pen 12 unit subcut DAILY codeine-guaifenesin 10-100 mg/5 mL liquid 10 ml PO Q8H PRN (Reason: cough) diphenhydramine HCl [Benadryl] 25 mg Capsule 50 mg PO DAILY PRN (Reason: Allergic Symptoms) ibuprofen 200 mg Tablet 200 mg PO Q8H PRN (Reason: Pain) atorvastatin 10 mg tablet 10 mg PO BEDTIME clonazepam 1 mg tablet 1 mg PO BID PRN (Reason: Anxiety) oxcarbazepine 300 mg tablet 300 mg PO BID famotidine 20 mg tablet 20 mg PO BID trazodone 150 mg tablet 150 mg PO BEDTIME PRN (Reason: Sleep) gabapentin 100 mg capsule 100 mg PO TID albuterol sulfate [Ventolin HFA] 90 mcg/actuation HFA aerosol inhaler 2 puff inhalation Q4H PRN (Reason: wheezing) fluticasone propionate 50 mcg/actuation spray,suspension 1 spray intranasal DAILY Rx Instructions: INHALE IN BOTH NOSTRILS metformin 500 mg tablet extended release 24 hr 1,000 mg PO BID glipizide 5 mg tablet 5 mg PO DAILY insulin lispro 100 unit/mL insulin pen 1 sliding scale dose subcut TIDAC escitalopram oxalate 20 mg tablet 20 mg PO BEDTIME lurasidone 60 mg tablet 60 mg PO BEDTIME Print Language: [place] Citizen
[2024-03-23 05:34] LABS: Influenza A PCR NEGATIVE (Negative); Influenza B PCR NEGATIVE (Negative); Resp Syncy Virus RNA Qual PCR POSITIVE (Negative); SARS COV2 PCR INHOUSE NEGATIVE (Negative)
[2024-03-23 05:54] VITALS: PULSE 90; RESP 20; O2SAT 95
[2024-03-23] MEDS: Albuterol Sulfate 5 MG, Albuterol/Iprat 2.5/0.5MG 3 ML 3 ML INHALE (05:54)
[2024-03-23 06:14] LABS: Venous Blood Gas Refer to POC result
[2024-03-23 06:15] LABS: VBG HCO3 34 mmol/L (22-26); VBG pCO2 58 mmHg; VBG pH 7.37 (7.32-7.43); VBG pO2 57 mmHg
[2024-03-23 06:16] VITALS: BP 120/86; PULSE 102; RESP 21; TEMP 37.1; O2SAT 96
[2024-03-23] MEDS: Morphine Sulfate 4 MG/ML CARTRIDGE IVPUSH (06:18)
[2024-03-23] MEDS: ondansetron HCL 4 MG/2 ML VIAL IVPUSH (06:18)
[2024-03-23] MEDS: cefTRIAXone sodium 1 GM VIAL IVPUSH (06:18)
[2024-03-23] MEDS: methylPREDNISolone Sod Succ 125 MG/2 ML VIAL IVPUSH (06:18)
[2024-03-23 06:39] LABS: Lactic Acid 2.7 mmol/L (0.5-2.0)
--- NOTE | 2024-03-23 07:58 | PC.NURSE ---
Awaiting ambulance transport home
[2024-03-23 08:10] LABS: Reflex Lactate? Lactic Acid Added
--- NOTE | 2024-03-23 08:26 | PC.NURSE ---
Per Analisa Houser MD - cancel 08:10 Lactic
[2024-03-23 09:22] VITALS: BP 120/86; PULSE 102; RESP 21; TEMP 37.1; O2SAT 96
== END 2024-03-23 09:25 | disposition home or self-care (01) ==
PROVIDERS: Emergency Provider Internal Medicine; PCP Internal Medicine
DX: J20.5 Acute bronchitis due to respiratory syncytial virus (principal); J96.01 Acute respiratory failure with hypoxia; R50.9 Fever, unspecified; R05.9 Cough, unspecified; Z86.711 Personal history of pulmonary embolism; Z03.818 Encounter for observation for suspected exposure to other biological agents ruled out; Z79.01 Long term (current) use of anticoagulants; Z99.81 Dependence on supplemental oxygen; Z79.899 Other long term (current) drug therapy
CPT/HCPCS: 0241U; 36415; 71045; 80053; 82803; 83605; 85027; 87040; 94640; 99284; J0696; J2270; J2405; J2919

== ENCOUNTER → 2024-03-23 04:51 | Outpatient (BNV) | payer OTHER, MEDICAID, SELFPAY | PROVIDERS: Emergency Provider Internal Medicine; PCP Internal Medicine; Visit Provider Specialist | DX: R05.9 Cough, unspecified (principal); R06.02 Shortness of breath | CPT/HCPCS: 71045 ==

== ENCOUNTER 2024-03-25 16:06 | Inpatient (IN) | payer OTHER, SELFPAY ==
--- NOTE | ~2024-03-25 | XR_ITS ---
CLINICAL HISTORY: sob Chest Radiograph Comparison: 03/23/24 Findings: No cardiomegaly. Normal mediastinal contours. No pneumothorax. Linear opacity in the left mid lung zone could be atelectasis. No pleural effusion. Normal upper abdomen. No acute fracture. Impression: No acute findings. This document has been electronically signed by: Lorin Castaneda MD on 03/25/2024 18:09:03
[2024-03-25 16:17] VITALS: BP 156/75; PULSE 84; O2SAT 96
[2024-03-25 16:39] VITALS: BP 201/94; PULSE 95; RESP 18; TEMP 36.7; O2SAT 98; BMI 37.2
[2024-03-25 16:46] VITALS: BP 139/82; PULSE 96; RESP 22; O2SAT 99
--- NOTE | 2024-03-25 17:29 | ECG_ITS ---
Test Reason : RESP Blood Pressure : */* mmHG Vent. Rate : 87 BPM Atrial Rate : 87 BPM P-R Int : 166 ms QRS Dur : 90 ms QT Int : 368 ms P-R-T Axes : 55 -5 44 degrees QTcB Int : 442 ms Normal sinus rhythm Normal ECG When compared with ECG of 09-Oct-2023 01:33, No significant change was found Referred By: Gita Monson Electronically Signed By: Skip Ledesma
--- NOTE | 2024-03-25 17:32 | ED.SOB ---
HPI - SOB/Dyspnea General Chief Complaint: Dyspnea Stated Complaint: diff breathing Time Seen by Provider: 03/25/24 16:46 History of Present Illness HPI Narrative: Patient is a 53-year-old female with a history of RSV infection. History of asthma exacerbation. Status post cardiac arrest status post trach. Baseline on no oxygen. Has oxygen at home for on demand. Has a history of diabetes. History of pancreatitis. Presented today with having increasing shortness of breath despite getting seen 2 days ago for asthma/bronchiolitis after testing positive for RSV infection. Continued to have coughing continued to feel generalized malaise weakness short of breath. Was taking steroids at home and also taking nebulized treatment at home to no avail. Related Data Home Medications ?Medication ?Instructions ?Recorded ?Confirmed albuterol sulfate 90 mcg/actuation 2 puff inhalation Q4H PRN wheezing 02/02/23 09/08/23 aerosol inhaler (Ventolin HFA) atorvastatin 10 mg tablet 10 mg PO BEDTIME 02/02/23 09/08/23 clonazepam 1 mg tablet 1 mg PO BID PRN Anxiety 02/02/23 09/08/23 escitalopram oxalate 20 mg tablet 20 mg PO BEDTIME 02/02/23 09/08/23 famotidine 20 mg tablet 20 mg PO BID 02/02/23 09/08/23 fluticasone propionate 50 1 spray intranasal DAILY allergies 02/02/23 09/08/23 mcg/actuation nasal spray,suspension gabapentin 100 mg capsule 100 mg PO TID 02/02/23 09/08/23 glipizide 5 mg tablet 5 mg PO DAILY 02/02/23 09/08/23 insulin lispro 100 unit/mL 1 sliding scale dose subcut TIDAC 02/02/23 09/08/23 subcutaneous pen lurasidone 60 mg tablet 60 mg PO BEDTIME 02/02/23 09/08/23 metformin 500 mg tablet,extended 1,000 mg PO BID 02/02/23 09/08/23 release 24 hr oxcarbazepine 300 mg tablet 300 mg PO BID 02/02/23 09/08/23 trazodone 150 mg tablet 150 mg PO BEDTIME PRN Sleep 02/02/23 09/08/23 insulin glargine 100 unit/mL (3 12 unit subcut DAILY 06/15/23 09/08/23 mL) subcutaneous pen (Lantus Solostar U-100 Insulin) codeine 10 mg-guaifenesin 100 mg/5 10 ml PO Q8H PRN cough 08/18/23 09/08/23 mL oral liquid diphenhydramine HCl 25 mg capsule 50 mg PO DAILY PRN Allergic 08/18/23 09/08/23 (Benadryl) Symptoms ibuprofen 200 mg tablet 200 mg PO Q8H PRN Pain 09/08/23 09/08/23 Previous Rx's ?Medication ?Instructions ?Recorded cefdinir 300 mg capsule 300 mg PO BID #20 caps 03/23/24 prednisone 20 mg tablet 40 mg (2 x 20 mg) PO DAILY #10 tabs 03/23/24 Allergies Allergy/AdvReac Type Severity Reaction Status Date / Time pantoprazole Allergy Mild Redness of Verified 03/25/24 16:41 Skin Review of Systems Review of Systems: Positive coughing congestion upper respiratory symptoms Yes all other systems are reviewed and are negative PMFSH Past Medical History Attestation statement: The following information was validated with the patient. Medical History Partial small bowel obstruction Tracheostomy dependent History of cardiac arrest Wound drainage Takotsubo cardiomyopathy Kidney stones UTI (urinary tract infection) Bipolar 1 disorder Diabetes Asthma Substance abuse Surgical History S/P ureteral stent placement H/O exploratory laparotomy S/P cholecystectomy Family History Family History Mother No pertinent family history Father No pertinent family history Social History Social History Household Members: Spouse Household Members Other:: 1 Housing: Apartment Do you presently have visiting nurse or other home services: Yes ([employer] 7H/week) Alcohol intake: former Comment: stayed in ed Patient Tobacco Use Status: Never used Tobacco Smoked in Last 30 Days: No Second Hand Smoke Exposure: Yes Use of substances other than those prescribed or required for medical reasons: No Advance Directives: Yes Advance Directives on File: Yes Advance Directives Date on File: 02/04/23 Do you have a plan to hurt others: No Plan Patient : No service: No Current occupational status: disabled Physical Exam Vital Signs: Vital Signs: Last Vital Signs Temp 98.6 F 03/25/24 19:09 Pulse 86 03/25/24 19:09 Resp 20 03/25/24 19:09 BP 133/75 03/25/24 19:09 Pulse Ox 95 03/25/24 19:09 O2 Del Method Nasal Cannula 03/25/24 19:09 O2 Flow Rate 4 03/25/24 19:09 Oxygen Flow Rate 4 03/25/24 16:39 BMI result Body Mass Index 37.2 Appearance: Alert. Oriented X3. No acute distress. Eyes: Pupils equal, round and reactive to light. ENT: Pharynx normal. Neck: Normal inspection. Neck supple. No lymph nodes noted. No crepitus CVS: Normal heart rate and rhythm. Pulses normal. Normal S1 and S2 Respiratory: No respiratory distress. Positive wheezing bilaterally diminished breath sounds bilaterally Abdomen: Soft and nontender. No rigidity. No distention. good BS x4 Skin: Skin warm and dry. Normal skin color. Normal skin turgor. Extremities: No lower extremity edema. Neurovascular intact to all extremities. No Lacerations. No Rash Neuro: Oriented X 3. No motor deficit. No sensory deficit. Moving all extermities. No slurred speech Medications Administered Generic Name Dose Route Start Last Admin Trade Name Freq PRN Reason Stop Dose Admin Sodium Chloride 1,000 mls @ 999 mls/hr 03/25/24 19:15 03/25/24 19:20 Ns IV 03/25/24 20:15 999 mls/hr .Q1H1M RILEY Administration Sodium Chloride 1,000 mls @ 999 mls/hr 03/25/24 19:15 03/25/24 19:33 Ns IV 03/25/24 20:15 999 mls/hr .Q1H1M RILEY Administration Sodium Chloride 1,000 mls @ 999 mls/hr 03/25/24 19:15 03/25/24 19:33 Ns IV 03/25/24 20:15 999 mls/hr .Q1H1M RILEY Administration Discontinued Medications Generic Name Dose Route Start Last Admin Trade Name Freq PRN Reason Stop Dose Admin Azithromycin 500 mg 03/25/24 19:20 03/25/24 19:34 Azithromycin 500 Mg Tablet PO 03/25/24 19:21 500 mg ONCE ONE Administration Ceftriaxone Sodium 1 gm 03/25/24 19:20 03/25/24 19:34 Ceftriaxone Sodium 1 Gm Vial IVPUSH 03/25/24 19:21 1 gm ONCE ONE Administration Hydromorphone HCl 0.5 mg 03/25/24 19:24 03/25/24 19:34 Hydromorphone Hcl 0.5 Mg/0.5 Ml Syringe IVPUSH 03/25/24 19:25 0.5 mg ONCE ONE Administration Protocol Insulin Human Regular 8 unit 03/25/24 19:07 03/25/24 19:18 Insulin Regular, Human 100 Unit/Ml 10 Ml Vial IVPUSH 03/25/24 19:08 8 unit ONCE ONE Administration Medical Decision Making Medical Decision Making [facility] Narrative: Patient is a 53-year-old female presents today with having coughing congested upper respiratory symptoms. Patient status post trach history of cardiac arrest in the past. History of diabetes. Was seen 2 days ago at that time tested positive for RSV. Now having continuing shortness of breath. Already on steroid on an outpatient basis. Took multiple treatments prior to arrival. Baseline is on no oxygen now on room air drops to 82%. Patient was placed back on the 4% on oxygen which sats at about 95-96. Patient was not given additional steroid as she took 60 of prednisone prior to arrival. Patient's chest x-ray showed no acute focal infiltrate by my interpretation. Patient is lactate is elevated. More likely this is secondary to dehydration and also multiple multiple albuterol inhalation. Nevertheless cultures were obtained antibiotic was started. I do not think patient is septic. Patient fluid will also help with the hyperglycemia. Patient is bicarb is normal. PH is normal. There is no evidence for diabetic ketoacidosis. This is just a straight hyperglycemia. Insulin was given. Patient's case discussed with the hospitalist team. Will admit for further evaluation Differential Diagnosis Differential Diagnoses: The differential diagnosis associated with the presentation includes Pneumonia, COPD, asthma, respiratory failure, hyperglycemia, diabetic ketoacidosis Admission/Observation Consideration of admission/observation: Escalation of care including admission/observation considered Consult Healthcare Provider Management of the patient was discussed with: Hospitalist Lab Data [facility] Lab Attestation statement: I reviewed the patient's lab results. 03/25/24 18:32 03/25/24 18:32 Labs: Lab Results 03/25/24 03/25/24 Range/Units 18:32 18:39 WBC 7.4 (4.8-10.8) X10*3/uL RBC 4.53 (4.20-5.50) X10*6/uL Hgb 12.1 (12.0-16.0) g/dl Hct 37.7 (37.0-47.0) % MCV 83.2 (80.0-98.0) fL MCH 26.7 L (27.0-33.0) pg MCHC 32.1 (31.0-35.0) g/dl RDW 14.2 (11.0-16.0) % Plt Count 375 D (160-400) X10*3/uL MPV 9.3 L (9.4-12.3) fL Immature Gran % (Auto) 1.1 H (0.0-0.4) % Neut % (Auto) 89.4 H (45-73) % Lymph % (Auto) 4.8 L (20-40) % Cecil % (Auto) 4.3 (2-11) % Eos % (Auto) 0.1 (0-4) % Baso % (Auto) 0.3 (0-2) % Lymph # (Auto) 0.4 L (1.2-4.9) X10*3/uL Cecil # (Auto) 0.3 (0.1-1.2) X10*3/uL Eos # (Auto) 0.0 (0.0-0.4) X10*3/uL Baso # (Auto) 0.0 (0.0-0.2) X10*3/uL Abs Immat Gran (auto) 0.08 H (0.00-0.03) X10*3/uL Absolute Neuts (auto) 6.6 (2.0-8.3) x10*3/uL Absolute Nucleated RBC 0.000 (0.0-0.012) X10*3/uL Nucleated RBC % (auto) 0.0 (0.0-0.2) /100WBC VBG pH 7.36 (7.32-7.43) VBG pCO2 64 mmHg VBG pO2 52 mmHg VBG HCO3 37 H (22-26) mmol/L VBG O2 Saturation 77.0 % VBG Base Excess 9.2 mmol/L Sodium 131 L (135-145) mmol/L Potassium 5.4 H (3.3-5.1) mmol/L Chloride 90 L (96-108) mmol/L Carbon Dioxide 31 H (22-29) mmol/L Anion Gap 15 (12-20) BUN 25 H (9-16) mg/dL Creatinine 1.25 (0.5-1.4) mg/dL Estim Creat Clear Calc 56.4 Estimated GFR 45 Random Glucose 526 H* (60-115) mg/dL Lactic Acid 3.4 H* (0.5-2.0) mmol/L Calcium 9.2 (8.4-10.2) mg/dL Troponin I High Sens < 2.7 (<3.5-17.0) ng/L Influenza Type A (PCR) NEGATIVE (Negative) Influenza Type B (PCR) NEGATIVE (Negative) RSV RNA Qual (PCR) POSITIVE A (Negative) SARS-CoV-2 RNA (RT-PCR) NEGATIVE (Negative) ABG Data Attestation ABG: I personally reviewed and interpreted this ABG as follows: Interpretation: No CO2 retention normal pH Independent Interpretation I performed an independent interpretation of an: Plain X-Ray (My interpretation patient's chest x-ray is grossly negative for pneumonia no pneumothorax.) Radiology Impression Discussion of test interpretation with radiology: I have reviewed the radiologist's reading. External Record Review External record reviewed: Inpatient record Chronic Conditions Patient?s care impacted by: Diabetes and Hypertension History of respiratory failure history of asthma history of cardiac arrest status post trach Social Determinants Patient?s care significantly limited by Social Determinants of Health including: Problems related to primary support group and Other Social Determinant of Health Discharge Plan Discharge Clinical Impression: Respiratory syncytial virus (RSV) infection, Acute hyperglycemia Patient Disposition: Admitted As Inpatient Print Language: Upper Sorbian
[2024-03-25 18:40] LABS: MANUAL DIFF FLAG NO
[2024-03-25 18:44] LABS: VBG Base Excess 9.2 mmol/L; VBG HCO3 37 mmol/L (22-26); VBG pCO2 64 mmHg; VBG pH 7.36 (7.32-7.43); VBG pO2 52 mmHg
[2024-03-25 18:44] LABS: Basophils Percent Auto 0.3 % (0-2); Eosinophils Percent Auto 0.1 % (0-4); Hematocrit 37.7 % (37.0-47.0); Hemoglobin 12.1 g/dl (12.0-16.0); Imm Gran Abs Auto 0.08 X10*3/uL (0.00-0.03); Imm Gran Pct Auto 1.1 % (0.0-0.4); Lymphocytes Absolute Auto 0.4 X10*3/uL (1.2-4.9); Lymphocytes Percent Auto 4.8 % (20-40); Mean Corpuscular HGB Conc 32.1 g/dl (31.0-35.0); Mean Corpuscular Hemoglobin 26.7 pg (27.0-33.0); Mean Corpuscular Volume 83.2 fL (80.0-98.0); Mean Platelet Volume 9.3 fL (9.4-12.3); Monocytes Absolute Auto 0.3 X10*3/uL (0.1-1.2); Monocytes Percent Auto 4.3 % (2-11); Neutrophils Absolute Auto 6.6 x10*3/uL (2.0-8.3); Neutrophils Percent Auto 89.4 % (45-73); Platelet Count 375 X10*3/uL (160-400); Red Blood Count 4.53 X10*6/uL (4.20-5.50); Red Cell Distribution Width 14.2 % (11.0-16.0); Venous Blood Gas Refer to POC result; White Blood Count 7.4 X10*3/uL (4.8-10.8)
[2024-03-25 19:08] LABS: Anion Gap 15 (12-20); Blood Urea Nitrogen 25 mg/dL (9-16); Calcium 9.2 mg/dL (8.4-10.2); Carbon Dioxide 31 mmol/L (22-29); Chloride 90 mmol/L (96-108); Creatinine Clr Calc Pharmacy 56.4; Estimated Glomerular Filt Rate 45; Glucose Random 526 mg/dL (60-115); Lactic Acid 3.4 mmol/L (0.5-2.0); Potassium 5.4 mmol/L (3.3-5.1); Sodium 131 mmol/L (135-145); Troponin-I High Sensitivity < 2.7 ng/L (<3.5-17.0)
[2024-03-25 19:09] VITALS: BP 133/75; PULSE 86; RESP 20; TEMP 37; O2SAT 95
[2024-03-25] MEDS: Insulin Regular, Human 100 UNIT/ML 10 ML VIAL 8 UNIT IVPUSH (19:18)
[2024-03-25] MEDS: 0.9 % Sodium Chloride 1,000 ML 999 ML IV ×3 (19:20→19:33)
[2024-03-25 19:22] LABS: Influenza A PCR NEGATIVE (Negative); Influenza B PCR NEGATIVE (Negative); Resp Syncy Virus RNA Qual PCR POSITIVE (Negative); SARS COV2 PCR INHOUSE NEGATIVE (Negative)
[2024-03-25] MEDS: Azithromycin 500 MG TABLET PO (19:34)
[2024-03-25] MEDS: HYDROmorphone HCl 0.5 MG/0.5 ML SYRINGE IVPUSH (19:34)
[2024-03-25] MEDS: cefTRIAXone sodium 1 GM VIAL IVPUSH (19:34)
--- NOTE | 2024-03-25 20:25 | PM.IMHP ---
History of Present Illness Date of Service: 03/25/24 Attending physician on admission: Jenny Elias Chief Complaint: Shortness on breath Anna Marie Black is a 53 years old with past medical history significant for chronic respiratory failure on home oxygen as needed, status post tracheostomy, morbid obesity, type 2 diabetes mellitus on insulin, cardiac arrest, hyperlipidemia, hypertension, asthma on prednisone and bipolar disorder presents to the emergency department complaining of shortness on breath and back pain. She also has been coughing, wheezing and generalized weakness. Reported some chest tightness. Did not report any acute gastrointestinal or genitourinary symptoms. In the ED, she was found to have tachypnea and tachycardia. There is no fever or hypotension. She is currently requiring 4 L/min supplemental oxygen via nasal cannula and satting at 95%. Blood workup showed no leukocytosis. Hemoglobin is 12.1 and platelets are normal. Potassium is 5.4 and CO2 is 31. Renal function is at baseline, creatinine 1.24 BUN 25. Glucose 526 and lactic acid is increasing 2.7--> 3.4. Troponin is negative. BNP is pending. Viral testing is positive for RSV. CXR is negative. ECG showed normal sinus rhythm without ischemic changes, HR 87 bpm. ED tx: Insulin 8 units IV, NS 3 L bolus, ceftriaxone 1 g IV, ceftriaxone 500 mg p.o., Dilaudid 0.5 mg IV Review of Systems Review of Systems: All 12 systems were reviewed and normal except as noted in HPI. [facility] Medical History Partial small bowel obstruction Tracheostomy dependent History of cardiac arrest Wound drainage Takotsubo cardiomyopathy Kidney stones UTI (urinary tract infection) Bipolar 1 disorder Diabetes Asthma Substance abuse Family History Mother No pertinent family history Father No pertinent family history Surgical History S/P ureteral stent placement H/O exploratory laparotomy S/P cholecystectomy Social History Household Members: Spouse Household Members Other:: 1 Housing: Apartment Do you presently have visiting nurse or other home services: Yes ([facility] 7H/week) Alcohol intake: former Comment: stayed in ed Patient Tobacco Use Status: Never used Tobacco Smoked in Last 30 Days: No Second Hand Smoke Exposure: Yes Use of substances other than those prescribed or required for medical reasons: No Advance Directives: Yes Advance Directives on File: Yes Advance Directives Date on File: 02/04/23 Do you have a plan to hurt others: No Plan Patient : No service: No Current occupational status: disabled Meds Allergies Allergy/AdvReac Type Severity Reaction Status Date / Time pantoprazole Allergy Mild Redness of Verified 03/25/24 16:41 Skin Active Medications: Current Medications Acetaminophen (Acetaminophen 325 Mg Tablet) 975 mg PO Q6H PRN PRN Reason: Pain, Mild 1-3,fever,headache Albuterol Sulfate (Albuterol Sulfate (0.083%) 2.5 Mg/3 Ml Vial.Neb) 2.5 mg INHALE Q2H PRN PRN Reason: Shortness of Breath/Wheezing Albuterol/Ipratropium (Albuterol/Iprat 2.5/0.5mg 3 Ml Ampul.Neb) 3 ml INHALE RQ4H WHILE AWAKE [facility] Enoxaparin Sodium (Enoxaparin Sodium 40 Mg/0.4 Ml Syringe) 40 mg SUBCUT Q24H [place] Glucose (Glucose Gel 15 Gm Gel..Gram.) 15 gm PO Q15M PRN; Protocol PRN Reason: per Hypoglycemia Standing Ord. Dextrose (D10) 250 mls @ 750 mls/hr IV Q15M PRN; Protocol PRN Reason: per Hypoglycemia Standing Ord. Azithromycin 500 mg/ Sodium (Chloride) 250 mls @ 125 mls/hr IV Q24H [facility] Insulin Human Lispro (Insulin Lispro 100 Unit/Ml 3 Ml Vial) 0 unit SUBCUT QIDACHS [facility]; Protocol Methylprednisolone Sodium Succinate (Methylprednisolone Sod Succ 40 Mg/Ml Vial) 40 mg IVPUSH DAILY [facility] Sodium Chloride (0.9 % Sodium Chloride Flush 3 Ml Syringe) 3 ml IVFLUSH QSHIFT [facility] Home Medications ?Medication ?Instructions ?Recorded ?Confirmed ?Last Taken ?Type albuterol sulfate 90 mcg/actuation 2 puff inhalation Q4H PRN wheezing 02/02/23 09/08/23 09/07/23 20:00 History aerosol inhaler (Ventolin HFA) atorvastatin 10 mg tablet 10 mg PO BEDTIME 02/02/23 09/08/23 09/07/23 20:00 History clonazepam 1 mg tablet 1 mg PO BID PRN Anxiety 02/02/23 03/25/24 03/24/24 History escitalopram oxalate 20 mg tablet 20 mg PO BEDTIME 02/02/23 03/25/24 03/24/24 History famotidine 20 mg tablet 20 mg PO BID 02/02/23 09/08/23 09/07/23 20:00 History fluticasone propionate 50 1 spray intranasal DAILY allergies 02/02/23 09/08/23 09/07/23 20:00 History mcg/actuation nasal spray,suspension gabapentin 100 mg capsule 100 mg PO TID 02/02/23 09/08/23 09/07/23 20:00 History glipizide 5 mg tablet 5 mg PO DAILY 02/02/23 03/25/24 03/24/24 21:00 History insulin lispro 100 unit/mL 1 sliding scale dose subcut TIDAC 02/02/23 09/08/23 09/07/23 20:00 History subcutaneous pen lurasidone 60 mg tablet 60 mg PO BEDTIME 02/02/23 03/25/24 03/24/24 21:00 History metformin 500 mg tablet,extended 1,000 mg PO BID 02/02/23 03/25/24 03/24/24 21:00 History release 24 hr oxcarbazepine 300 mg tablet 300 mg PO BID 02/02/23 09/08/23 09/07/23 20:00 History trazodone 150 mg tablet 150 mg PO BEDTIME PRN Sleep 02/02/23 03/25/24 03/24/24 21:00 History insulin glargine 100 unit/mL (3 12 unit subcut DAILY 06/15/23 09/08/23 09/07/23 20:00 History mL) subcutaneous pen (Lantus Solostar U-100 Insulin) codeine 10 mg-guaifenesin 100 mg/5 10 ml PO Q8H PRN cough 08/18/23 09/08/23 09/07/23 20:00 History mL oral liquid diphenhydramine HCl 25 mg capsule 50 mg PO DAILY PRN Allergic 08/18/23 09/08/23 09/07/23 20:00 History (Benadryl) Symptoms ibuprofen 200 mg tablet 200 mg PO Q8H PRN Pain 09/08/23 09/08/23 Unknown History Physical Exam Vital Signs and Narrative: Vital Signs: Last Vital Signs Temp 98.6 F 03/25/24 19:09 Pulse 86 03/25/24 19:09 Resp 20 03/25/24 19:09 BP 133/75 03/25/24 19:09 Pulse Ox 95 03/25/24 19:09 O2 Del Method Nasal Cannula 03/25/24 19:09 O2 Flow Rate 4 03/25/24 19:09 Oxygen Flow Rate 4 03/25/24 16:39 BMI result Body Mass Index 37.2 Constitutional - Awake and Alert, No apparent distress. Obese. Cooperative. Afebrile. HEENT - PERRL, EOMI. Tracheostomy tube in place (collar). Heart - S1S2, RRR, No murmurs Lungs - Normal lung expansion, Normal respiratory effort, No respiratory distress. Tachypnea. End expiratory wheezes. Abdomen - Nontender. Musculoskeletal - Normal inspection, normal ROM Skin - Warm/Dry Neurological - Alert & oriented x3. No focal weakness grossly noted. Normal speech. Psychological - Appropriate affect Results Labs 03/25/24 18:32 03/25/24 18:32 Labs: Laboratory Results - last 24 hr 03/25/24 03/25/24 18:32 18:39 MCV 83.2 MCH 26.7 L MCHC 32.1 RDW 14.2 Plt Count 375 D MPV 9.3 L Immature Gran % (Auto) 1.1 H Neut % (Auto) 89.4 H Lymph % (Auto) 4.8 L Ness % (Auto) 4.3 Eos % (Auto) 0.1 Baso % (Auto) 0.3 Lymph # (Auto) 0.4 L Ness # (Auto) 0.3 Eos # (Auto) 0.0 Baso # (Auto) 0.0 Abs Immat Gran (auto) 0.08 H Absolute Neuts (auto) 6.6 Absolute Nucleated RBC 0.000 Nucleated RBC % (auto) 0.0 VBG pH 7.36 VBG pCO2 64 VBG pO2 52 VBG HCO3 37 H VBG O2 Saturation 77.0 VBG Base Excess 9.2 Anion Gap 15 Estim Creat Clear Calc 56.4 Estimated GFR 45 Random Glucose 526 H* Lactic Acid 3.4 H* Calcium 9.2 Troponin I High Sens < 2.7 Influenza Type A (PCR) NEGATIVE Influenza Type B (PCR) NEGATIVE RSV RNA Qual (PCR) POSITIVE A SARS-CoV-2 RNA (RT-PCR) NEGATIVE Assessment and Plan (1) Acute hyperglycemia: Status: Acute (2) Respiratory syncytial virus (RSV) infection: Status: Acute (3) Moderate persistent asthma with exacerbation: Status: Acute Plan Anna Marie Black is a 53 y/0 woman with PMHx significant for status post tracheostomy (collar) admitted with Acute on chronic hypoxic respiratory failure secondary to asthma exacerbation and RSV infection. Admit to hospitalist service. Droplet precautions. Pulse oximetry. Telemetry. Supplemental O2 to keep O2 sats > 90%. Continue bronchodilator therapy IV steroids. Uncontrolled type 2 diabetes mellitus with hyperglycemia. Continue Lantus, insulin sliding scale and glipizide. Metformin on hold due to metabolic acidosis. Check hemoglobin A1c. Diabetic diet. Back pain, musculoskeletal in nature. Patient requesting dilated or IV morphine. Refused NSAIDs. History of PE. Not currently taking Eliquis. Mood disorder. Continue home medications. Hyperlipidemia. Continue statin. Obesity. BMI 37.2 kg/m2. Weight loss. Code status: Full DVT prophylaxis: Lovenox Patient will need hospitalization for at least 2 midnights for acute on chronic hypoxic respiratory failure with supplemental oxygen, bronchodilator therapy and IV steroids. Quality Stroke Does the patient have a stroke diagnosis?: No VTE Prior VTE?: No VTE Risk Level:: Medical - moderate - high VTE Device Contraindication: Treatment Not Indicated VTE Drug Contraindication: N/A - Med Ordered
[2024-03-25 20:38] LABS: Reflex Lactate? Lactic Acid Added
[2024-03-25] MEDS: Albuterol/Iprat 2.5/0.5MG 3 ML AMPUL.NEB INHALE (20:38)
[2024-03-25 20:43] VITALS: PULSE 84; RESP 18; O2SAT 96
[2024-03-25 21:38] LABS: Glucose, Whole Blood 349 mg/dL (60-115)
[2024-03-25] MEDS: Insulin Lispro 100 UNIT/ML 3 ML VIAL SUBCUT (22:13)
[2024-03-25] MEDS: Insulin Glargine,Hum.rec.anlog 100 UNIT/ML 10 ML VIAL 20 UNIT SUBCUT (22:13)
[2024-03-25] MEDS: Morphine Sulfate 4 MG/ML CARTRIDGE IVPUSH (22:14)
[2024-03-25] MEDS: OXcarbazepine 300 MG TABLET PO (22:14)
[2024-03-25] MEDS: Gabapentin 300 MG CAPSULE PO (22:14)
[2024-03-25 22:39] LABS: ~Lactic Acid-LAB USE ONLY 2.3 mmol/L (0.5-2.0)
[2024-03-25] MEDS: clonazePAM 1 MG TABLET PO (23:29)
[2024-03-25] MEDS: Escitalopram Oxalate 20 MG TABLET PO (23:29)
[2024-03-25] MEDS: traZODone HCL 50 MG TABLET 150 MG PO (23:30)
[2024-03-25] MEDS: Lurasidone HCl 20 MG TABLET 60 MG PO (23:30)
[2024-03-25 23:58] LABS: Reflex Lactate? 2 Y
[2024-03-26] VITALS (9 sets, daily range): BP systolic 126–148; BP diastolic 78–84; PULSE 79–104; RESP 15–20; TEMP 36.8–36.9; O2SAT 91–97
[2024-03-26 01:50] LABS: ~Lactic Acid-LAB USE ONLY 2.1 mmol/L (0.5-2.0)
[2024-03-26] MEDS: Albuterol Sulfate (0.083%) 2.5 MG/3 ML VIAL.NEB INHALE ×2 (02:07→23:28)
[2024-03-26 04:20] LABS: B Type Natriuretic Peptide 21 pg/mL (<100)
[2024-03-26] MEDS: Morphine Sulfate 4 MG/ML CARTRIDGE IVPUSH (06:00)
[2024-03-26 06:19] LABS: MANUAL DIFF FLAG NO
[2024-03-26 06:30] LABS: Estimated Average Glucose 275 mg/dL; Hemoglobin A1C 280.4575 umol/L; Hemoglobin A1c % 11.2 % (<6.0); Total Hemoglobin (HGBA1C) 2834.9056 umol/L
[2024-03-26 06:37] LABS: Basophils Percent Auto 0.5 % (0-2); Eosinophils Absolute Auto 0.1 X10*3/uL (0.0-0.4); Eosinophils Percent Auto 0.9 % (0-4); Hemoglobin 10.9 g/dl (12.0-16.0); Imm Gran Abs Auto 0.04 X10*3/uL (0.00-0.03); Imm Gran Pct Auto 0.6 % (0.0-0.4); Lymphocytes Absolute Auto 0.9 X10*3/uL (1.2-4.9); Lymphocytes Percent Auto 13.9 % (20-40); Mean Corpuscular HGB Conc 31.1 g/dl (31.0-35.0); Mean Corpuscular Hemoglobin 26.5 pg (27.0-33.0); Mean Corpuscular Volume 85.2 fL (80.0-98.0); Mean Platelet Volume 9.2 fL (9.4-12.3); Monocytes Absolute Auto 0.9 X10*3/uL (0.1-1.2); Monocytes Percent Auto 13.5 % (2-11); Neutrophils Absolute Auto 4.6 x10*3/uL (2.0-8.3); Neutrophils Percent Auto 70.6 % (45-73); Platelet Count 325 X10*3/uL (160-400); Red Blood Count 4.11 X10*6/uL (4.20-5.50); Red Cell Distribution Width 14.2 % (11.0-16.0); White Blood Count 6.5 X10*3/uL (4.8-10.8)
[2024-03-26 06:49] LABS: Anion Gap 12 (12-20); Blood Urea Nitrogen 23 mg/dL (9-16); Calcium 8.7 mg/dL (8.4-10.2); Carbon Dioxide 32 mmol/L (22-29); Chloride 98 mmol/L (96-108); Creatinine Clr Calc Pharmacy 62.5; Estimated Glomerular Filt Rate 50; Potassium 4.9 mmol/L (3.3-5.1); Sodium 137 mmol/L (135-145)
[2024-03-26 07:05] LABS: Glucose Random 379 mg/dL (60-115)
--- NOTE | 2024-03-26 07:06 | PC.NURSE ---
critical lab value - blood glucose of 379mg/dL received at this time. admitting provider notified/aware.
[2024-03-26] MEDS: Albuterol/Iprat 2.5/0.5MG 3 ML AMPUL.NEB INHALE ×3 (07:19→19:52)
[2024-03-26 07:37] LABS: Glucose, Whole Blood 348 mg/dL (60-115)
[2024-03-26] MEDS: methylPREDNISolone Sod Succ 40 MG/ML VIAL IVPUSH (08:11)
[2024-03-26] MEDS: glipiZIDE 5 MG TABLET PO (08:11)
[2024-03-26] MEDS: Insulin Lispro 100 UNIT/ML 3 ML VIAL SUBCUT ×6 (08:11→21:42)
--- NOTE | 2024-03-26 09:10 | PHA.MEDREC ---
Addendum entered by Cielo Shannon [facility] 03/26/24 09:29: reviewed by [facility]. Original Note: Pharmacy Consult ? Medication Reconciliation Pharmacy has completed the medication reconciliation. Spoke to patient to confirm med list. Patient was in and out of sleep, however she was able to tell me what she is taking. Patent states she no longer takes Codeine-Guaifenesin. Patient confirmed she is still on Cefdinir 300 mg, End date 04/02/24 and Prednisone 40 mg daily , End date 03/27/24. Patient states she thinks Lantus Solostar U-100 is 20 units, claims has 12 units last filled 11/06/23 for 83 days, Inulin lispo is per sliding scale TID.
--- NOTE | 2024-03-26 09:24 | HO.PM.IMPN ---
Subjective Subjective Date of Service: 03/26/24 Interval History: seen and examined sleepy but awakens easily reports feeling unwell Review of Systems Negative except HPI/interval history. Physical Exam Vital Signs: Vital Signs: Last Vital Signs Temp 98.6 F 03/25/24 19:09 Pulse 80 03/26/24 07:20 Resp 16 03/26/24 07:20 BP 133/75 03/25/24 19:09 Pulse Ox 95 03/25/24 19:09 O2 Del Method Nasal Cannula 03/25/24 19:09 O2 Flow Rate 4 03/25/24 19:09 Oxygen Flow Rate 4 03/25/24 16:39 BMI result Body Mass Index 37.2 Const: Other: General - drowsy but awakens easily Cardiovascular - regular rate and rhythm, S1-S2 Lungs - rhonchi Abdomen - soft, nontender, no rebound or guarding Extremities - no edema bilaterally Neuro - awake and alert, no focal deficits Objective Data Active Medications Acetaminophen (Acetaminophen 325 Mg Tablet) 975 mg PO Q6H PRN PRN Reason: Pain, Mild 1-3,fever,headache Albuterol Sulfate (Albuterol Sulfate (0.083%) 2.5 Mg/3 Ml Vial.Neb) 2.5 mg INHALE Q2H PRN PRN Reason: Shortness of Breath/Wheezing Last Admin: 03/26/24 02:07 Dose: 2.5 mg Documented By: ALLISON Albuterol/Ipratropium (Albuterol/Iprat 2.5/0.5mg 3 Ml Ampul.Neb) 3 ml INHALE RQ4H WHILE AWAKE [facility] Last Admin: 03/26/24 07:19 Dose: 3 ml Documented By: LUDIN Clonazepam (Clonazepam 1 Mg Tablet) 1 mg PO BID PRN PRN Reason: Anxiety Last Admin: 03/25/24 23:29 Dose: 1 mg Documented By: RICCO Enoxaparin Sodium (Enoxaparin Sodium 40 Mg/0.4 Ml Syringe) 40 mg SUBCUT Q24H [facility] Last Admin: 03/26/24 08:11 Dose: Not Given Documented By: OLIVE Non-Admin Reason: Patient Refused Escitalopram Oxalate (Escitalopram Oxalate 20 Mg Tablet) 20 mg PO BEDTIME [facility] Last Admin: 03/25/24 23:29 Dose: 20 mg Documented By: RICCO Glucose (Glucose Gel 15 Gm Gel..Gram.) 15 gm PO Q15M PRN; Protocol PRN Reason: per Hypoglycemia Standing Ord. Dextrose (D10) 250 mls @ 750 mls/hr IV Q15M PRN; Protocol PRN Reason: per Hypoglycemia Standing Ord. Azithromycin 500 mg/ Sodium (Chloride) 250 mls @ 125 mls/hr IV Q24H [facility] Insulin Human Lispro (Insulin Lispro 100 Unit/Ml 3 Ml Vial) 0 unit SUBCUT QIDACHS [facility]; Protocol Last Admin: 03/26/24 08:11 Dose: 10 unit Documented By: OLIVE Lurasidone HCl (Lurasidone Hcl 20 Mg Tablet) 60 mg PO BEDTIME [facility] Last Admin: 03/25/24 23:30 Dose: 60 mg Documented By: RICCO Methylprednisolone Sodium Succinate (Methylprednisolone Sod Succ 40 Mg/Ml Vial) 40 mg IVPUSH DAILY [facility] Last Admin: 03/26/24 08:11 Dose: 40 mg Documented By: OLIVE Sodium Chloride (0.9 % Sodium Chloride Flush 3 Ml Syringe) 3 ml IVFLUSH QSHIFT [facility] Last Admin: 03/26/24 08:12 Dose: Not Given Documented By: OLIVE Non-Admin Reason: Patient Refused Trazodone HCl (Trazodone Hcl 50 Mg Tablet) 150 mg PO BEDTIME PRN PRN Reason: Sleep Last Admin: 03/25/24 23:30 Dose: 150 mg Documented By: RICCO Labs 03/26/24 06:03 03/26/24 06:03 Labs: Laboratory Results - last 24 hr 03/25/24 03/25/24 03/25/24 18:32 18:39 21:35 MCV 83.2 MCH 26.7 L MCHC 32.1 RDW 14.2 Plt Count 375 D MPV 9.3 L Immature Gran % (Auto) 1.1 H Neut % (Auto) 89.4 H Lymph % (Auto) 4.8 L Glynn % (Auto) 4.3 Eos % (Auto) 0.1 Baso % (Auto) 0.3 Lymph # (Auto) 0.4 L Glynn # (Auto) 0.3 Eos # (Auto) 0.0 Baso # (Auto) 0.0 Abs Immat Gran (auto) 0.08 H Absolute Neuts (auto) 6.6 Absolute Nucleated RBC 0.000 Nucleated RBC % (auto) 0.0 VBG pH 7.36 VBG pCO2 64 VBG pO2 52 VBG HCO3 37 H VBG O2 Saturation 77.0 VBG Base Excess 9.2 Anion Gap 15 Estim Creat Clear Calc 56.4 Estimated GFR 45 POC Glucose 349 H Random Glucose 526 H* Estimat Average Glucose Hemoglobin A1c % Lactic Acid 3.4 H* Lactic Acid F/U @ 2Hr Lactic Acid F/U @ 4Hr Calcium 9.2 Magnesium Troponin I High Sens < 2.7 B-Natriuretic Peptide 21 Influenza Type A (PCR) NEGATIVE Influenza Type B (PCR) NEGATIVE RSV RNA Qual (PCR) POSITIVE A SARS-CoV-2 RNA (RT-PCR) NEGATIVE 03/25/24 03/26/24 03/26/24 21:50 01:05 06:03 MCV 85.2 MCH 26.5 L MCHC 31.1 RDW 14.2 Plt Count 325 MPV 9.2 L Immature Gran % (Auto) 0.6 H Neut % (Auto) 70.6 Lymph % (Auto) 13.9 L Glynn % (Auto) 13.5 H Eos % (Auto) 0.9 Baso % (Auto) 0.5 Lymph # (Auto) 0.9 L Glynn # (Auto) 0.9 Eos # (Auto) 0.1 Baso # (Auto) 0.0 Abs Immat Gran (auto) 0.04 H Absolute Neuts (auto) 4.6 Absolute Nucleated RBC 0.000 Nucleated RBC % (auto) 0.0 VBG pH VBG pCO2 VBG pO2 VBG HCO3 VBG O2 Saturation VBG Base Excess Anion Gap 12 Estim Creat Clear Calc 62.5 Estimated GFR 50 POC Glucose Random Glucose 379 H* Estimat Average Glucose 275 Hemoglobin A1c % 11.2 H Lactic Acid Lactic Acid F/U @ 2Hr 2.3 H* Lactic Acid F/U @ 4Hr 2.1 H* Calcium 8.7 Magnesium 2.0 Troponin I High Sens B-Natriuretic Peptide Influenza Type A (PCR) Influenza Type B (PCR) RSV RNA Qual (PCR) SARS-CoV-2 RNA (RT-PCR) 03/26/24 07:33 MCV MCH MCHC RDW Plt Count MPV Immature Gran % (Auto) Neut % (Auto) Lymph % (Auto) Glynn % (Auto) Eos % (Auto) Baso % (Auto) Lymph # (Auto) Glynn # (Auto) Eos # (Auto) Baso # (Auto) Abs Immat Gran (auto) Absolute Neuts (auto) Absolute Nucleated RBC Nucleated RBC % (auto) VBG pH VBG pCO2 VBG pO2 VBG HCO3 VBG O2 Saturation VBG Base Excess Anion Gap Estim Creat Clear Calc Estimated GFR POC Glucose 348 H Random Glucose Estimat Average Glucose Hemoglobin A1c % Lactic Acid Lactic Acid F/U @ 2Hr Lactic Acid F/U @ 4Hr Calcium Magnesium Troponin I High Sens B-Natriuretic Peptide Influenza Type A (PCR) Influenza Type B (PCR) RSV RNA Qual (PCR) SARS-CoV-2 RNA (RT-PCR) Assessment and Plan (1) Acute hyperglycemia: Status: Acute (2) Moderate persistent asthma with exacerbation: Status: Acute (3) Tracheostomy dependent: Status: Acute Plan 53 yo F with history of trachesotomy, chronic resp failure with hypoxia, IDDM, obesity and asthma who presents to the ED with shortness of breath. She is admitted for 1. Acute on chronic resp failure with hypoxia, question chronic hypercarbic resp failure due to acute asthma excerbation secondary to RSV infection VBG on admissio showing compensated pH with elevated pCO2 this AM, pt drowsy but does awaken with verbal stimulie -- will check VBG again this AM; CO2 retainer protocol ordered continue nebs + iv steroids hold sedative drugs 2. Uncontrolled DM with hyerglycemia hold orals use basal + bolus -- titrate as needed A1C 11.2 (improved from last year) 3. History of PE previously on Eliquis -- do not see any on recent claim history will d/w pt 4. Mood disorder continue home meds, hold gabapentin/clonazepam 5. Obesity outpatient weight mgmt likely playing a role in her respiratory status Full Code DVT pptx - Lovenox reason for continued hospitalization: pt with on going respiratory failure not improved yet Quality Stroke Does the patient have a stroke diagnosis?: No VTE Prior VTE?: No VTE Risk Level:: Medical - moderate - high VTE Device Contraindication: Treatment Not Indicated VTE Drug Contraindication: N/A - Med Ordered
[2024-03-26] MEDS: OXcarbazepine 300 MG TABLET PO ×2 (10:04→20:16)
[2024-03-26] MEDS: Acetaminophen 325 MG TABLET 975 MG PO (10:04)
[2024-03-26] MEDS: Famotidine 20 MG TABLET PO ×2 (10:04→20:16)
[2024-03-26] MEDS: Insulin Glargine,Hum.rec.anlog 100 UNIT/ML 10 ML VIAL 20 UNIT SUBCUT (10:04)
[2024-03-26 10:08] LABS: VBG Base Excess 12.9 mmol/L; VBG HCO3 39 mmol/L (22-26); VBG pCO2 55 mmHg; VBG pH 7.45 (7.32-7.43); VBG pO2 92 mmHg
[2024-03-26 10:08] LABS: Venous Blood Gas Refer to POC result
--- NOTE | 2024-03-26 10:15 | PC.NURSE ---
pt reporting lower back pain - requesting morphine. unable to administer morphine d/t no prn order. prn tylenol administered. effectiveness pending. provider notified/aware of pt's request. will administer medication when able.
--- NOTE | 2024-03-26 11:31 | MHC.CM.PN ---
Pt lives with her , Casimiro, he is HCP and this was confirmed. PCP confirmed: Megan Cummings. Pt has [employer], 7 hrs per week, is in the process of increasing hrs thru [facility] to 12.5. She has used [facility] in the past, not currently. For DME, she has: home O2, cane, w/c, shower chair. She will need assistance with transport home. DCP: home, resume services. CM to follow for DC needs.
[2024-03-26] MEDS: Morphine Sulfate 2 MG/ML CARTRIDGE IVPUSH ×2 (12:02→16:17)
--- NOTE | 2024-03-26 12:15 | PC.NURSE ---
pt verbalizing 8/10 lower back pain despite previous interventions. prn morphine administered. effectiveness pending. pt otherwise continues to rest i no apparent distress. pt remains on 2L via NC - no sob/wob noted. respirations even/unlabored. pt waiting for bed assignment at this time. plan of care ongoing. call aaron placed within reach.
[2024-03-26 13:34] LABS: Glucose, Whole Blood 440 mg/dL (60-115)
--- NOTE | 2024-03-26 13:50 | PC.NURSE ---
pt noted to be hyperglycemic at 440mg/dL. admitting provider notified/aware. insulin administered per sliding scale.
[2024-03-26] MEDS: 0.9 % Sodium Chloride Flush 3 ML SYRINGE IVFLUSH (16:17)
[2024-03-26] MEDS: diphenhydrAMINE HCL 25 MG CAPSULE 50 MG PO (16:39)
[2024-03-26] MEDS: guaiFENesin 100 MG/5 ML 5 ML LIQUID PO (16:39)
--- NOTE | 2024-03-26 16:42 | PC.NURSE ---
pt verbalizing 10/10 back despite previous interventions. pt requesting for morphine dose to be changed from 2mg to 4mg d/t increased back pain. pt also requesting benadryl for allergies and cough syrup d/t painful nonproductive cough. admitting provider notified/aware of all requests. medications administered per provider order. effectiveness pending.
[2024-03-26 17:12] LABS: Glucose, Whole Blood 317 mg/dL (60-115)
[2024-03-26] MEDS: Azithromycin 500 MG in 0.9 % Sodium Chloride 250 ML 125 MG IV (18:58)
[2024-03-26] MEDS: Atorvastatin Calcium 10 MG TABLET PO (20:16)
[2024-03-26] MEDS: Escitalopram Oxalate 20 MG TABLET PO (20:16)
[2024-03-26] MEDS: Lurasidone HCl 20 MG TABLET 60 MG PO (20:16)
[2024-03-26] MEDS: Morphine Sulfate 2 MG/ML CARTRIDGE 4 MG IVPUSH (20:17)
[2024-03-26 20:45] LABS: Glucose, Whole Blood 253 mg/dL (60-115)
[2024-03-26] MEDS: ondansetron HCL 4 MG/2 ML VIAL IVPUSH (21:42)
[2024-03-27] VITALS (16 sets, daily range): BP systolic 129–161; BP diastolic 60–99; PULSE 82–106; RESP 10–24; TEMP 36.6–37.3; O2SAT 90–94; BMI 41.0
[2024-03-27] MEDS: Morphine Sulfate 2 MG/ML CARTRIDGE 4 MG IVPUSH ×5 (00:23→22:33)
[2024-03-27] MEDS: 0.9 % Sodium Chloride Flush 3 ML SYRINGE IVFLUSH ×3 (00:26→17:23)
[2024-03-27] MEDS: Albuterol Sulfate (0.083%) 2.5 MG/3 ML VIAL.NEB INHALE ×2 (05:30→22:50)
[2024-03-27 06:03] LABS: Venous Blood Gas Refer to POC result
--- NOTE | 2024-03-27 06:14 | PC.NURSE ---
pt resting comfortably throughout the night, indep to commode at bedside a few times. prn breathing treatment done x2. pt rings q4 for pain meds
[2024-03-27] MEDS: Albuterol/Iprat 2.5/0.5MG 3 ML AMPUL.NEB INHALE ×4 (07:12→20:35)
[2024-03-27 07:54] LABS: Glucose, Whole Blood 334 mg/dL (60-115)
[2024-03-27] MEDS: Enoxaparin Sodium 40 MG/0.4 ML SYRINGE SUBCUT (08:28)
[2024-03-27] MEDS: Insulin Lispro 100 UNIT/ML 3 ML VIAL SUBCUT ×4 (08:29→17:22)
[2024-03-27] MEDS: methylPREDNISolone Sod Succ 40 MG/ML VIAL IVPUSH ×2 (08:30→17:22)
[2024-03-27] MEDS: Famotidine 20 MG TABLET PO (08:30)
[2024-03-27] MEDS: Insulin Glargine,Hum.rec.anlog 100 UNIT/ML 10 ML VIAL 20 UNIT SUBCUT (08:31)
[2024-03-27] MEDS: OXcarbazepine 300 MG TABLET PO (08:32)
--- NOTE | 2024-03-27 09:08 | P.PNIM_ITS ---
Subjective Subjective Date of Service: 03/27/24 Interval History: seen and examined this AM reports breathing is worse reports dry cough and wheezing reports she does not require o2 use at home when at baseline, only during times of illness Review of Systems Negative except HPI/interval history. Physical Exam 2 Vital Signs: Vital Signs: Last Vital Signs Temp 99.1 F 03/27/24 06:00 Pulse 100 03/27/24 08:42 Resp 15 03/27/24 08:42 BP 133/74 03/27/24 08:42 Pulse Ox 93 03/27/24 08:42 O2 Del Method Nasal Cannula 03/27/24 08:42 O2 Flow Rate 4 03/27/24 08:42 Oxygen Flow Rate 4 03/25/24 16:39 BMI result Body Mass Index 37.2 Const: Other: General - no acute distress, appears comfortable Cardiovascular - regular rate and rhythm, S1-S2 Lungs - diffuse rhonchi and wheezing; sats 93 on 4L Abdomen - soft, nontender, no rebound or guarding Extremities - no edema bilaterally Neuro - awake and alert, no focal deficits Objective Data Active Medications Acetaminophen (Acetaminophen 325 Mg Tablet) 975 mg PO Q6H PRN PRN Reason: Pain, Mild 1-3,fever,headache Last Admin: 03/26/24 10:04 Dose: 975 mg Documented By: OLIVE Albuterol Sulfate (Albuterol Sulfate (0.083%) 2.5 Mg/3 Ml Vial.Neb) 2.5 mg INHALE Q2H PRN PRN Reason: Shortness of Breath/Wheezing Last Admin: 03/27/24 05:30 Dose: 2.5 mg Documented By: TERI Albuterol/Ipratropium (Albuterol/Iprat 2.5/0.5mg 3 Ml Ampul.Neb) 3 ml INHALE RQ4H WHILE AWAKE [facility] Last Admin: 03/27/24 07:12 Dose: 3 ml Documented By: LUDIN Atorvastatin Calcium (Atorvastatin Calcium 10 Mg Tablet) 10 mg PO BEDTIME [facility] Last Admin: 03/26/24 20:16 Dose: 10 mg Documented By: ASAD Clonazepam (Clonazepam 1 Mg Tablet) 1 mg PO BID PRN PRN Reason: Anxiety Last Admin: 03/25/24 23:29 Dose: 1 mg Documented By: RICCO Diphenhydramine HCl (Diphenhydramine Hcl 25 Mg Capsule) 50 mg PO DAILY PRN PRN Reason: Allergic Symptoms Last Admin: 03/26/24 16:39 Dose: 50 mg Documented By: OLIVE Enoxaparin Sodium (Enoxaparin Sodium 40 Mg/0.4 Ml Syringe) 40 mg SUBCUT Q24H [facility] Last Admin: 03/27/24 08:28 Dose: 40 mg Documented By: VERONIQUE Escitalopram Oxalate (Escitalopram Oxalate 20 Mg Tablet) 20 mg PO BEDTIME [facility] Last Admin: 03/26/24 20:16 Dose: 20 mg Documented By: ASAD Famotidine (Famotidine 20 Mg Tablet) 20 mg PO BID [facility] Last Admin: 03/27/24 08:30 Dose: 20 mg Documented By: VERONIQUE Glucose (Glucose Gel 15 Gm Gel..Gram.) 15 gm PO Q15M PRN; Protocol PRN Reason: per Hypoglycemia Standing Ord. Guaifenesin (Guaifenesin 100 Mg/5 Ml 5 Ml Liquid) 5 ml PO Q6H PRN PRN Reason: Cough Last Admin: 03/26/24 16:39 Dose: 5 ml Documented By: OLIVE Dextrose (D10) 250 mls @ 750 mls/hr IV Q15M PRN; Protocol PRN Reason: per Hypoglycemia Standing Ord. Azithromycin 500 mg/ Sodium (Chloride) 250 mls @ 125 mls/hr IV Q24H [facility] Last Infusion: 03/26/24 21:30 Dose: Infused Documented By: ASAD Insulin Glargine (Insulin Glargine,Hum.Rec.Anlog 100 Unit/Ml 10 Ml Vial) 20 unit SUBCUT DAILY [facility] Last Admin: 03/27/24 08:31 Dose: 20 unit Documented By: VERONIQUE Insulin Human Lispro (Insulin Lispro 100 Unit/Ml 3 Ml Vial) 0 unit SUBCUT QIDACHS [facility]; Protocol Last Admin: 03/27/24 08:29 Dose: 8 unit Documented By: VERONIQUE Insulin Human Lispro (Insulin Lispro 100 Unit/Ml 3 Ml Vial) 4 unit SUBCUT QIDACHS [facility] Last Admin: 03/27/24 08:34 Dose: 4 unit Documented By: VERONIQUE Lurasidone HCl (Lurasidone Hcl 20 Mg Tablet) 60 mg PO BEDTIME [facility] Last Admin: 03/26/24 20:16 Dose: 60 mg Documented By: ASAD Methylprednisolone Sodium Succinate (Methylprednisolone Sod Succ 40 Mg/Ml Vial) 40 mg IVPUSH Q8H [facility] Morphine Sulfate (Morphine Sulfate 2 Mg/Ml Cartridge) 4 mg IVPUSH Q4H PRN; Protocol PRN Reason: Pain, Severe (Pain Scale 7-10) Last Admin: 03/27/24 08:32 Dose: 4 mg Documented By: VERONIQUE Ondansetron HCl (Ondansetron Hcl 4 Mg/2 Ml Vial) 4 mg IVPUSH Q6H PRN PRN Reason: Nausea and Vomiting Last Admin: 03/26/24 21:42 Dose: 4 mg Documented By: ASAD Oxcarbazepine (Oxcarbazepine 300 Mg Tablet) 300 mg PO BID [facility] Last Admin: 03/27/24 08:32 Dose: 300 mg Documented By: VERONIQUE Sodium Chloride (0.9 % Sodium Chloride Flush 3 Ml Syringe) 3 ml IVFLUSH QSHIFT [facility] Last Admin: 03/27/24 08:30 Dose: 3 ml Documented By: VERONIQUE Trazodone HCl (Trazodone Hcl 50 Mg Tablet) 150 mg PO BEDTIME PRN PRN Reason: Sleep Last Admin: 03/25/24 23:30 Dose: 150 mg Documented By: RICCO Labs 03/26/24 06:03 03/26/24 06:03 Labs: Laboratory Results - last 24 hr 03/26/24 03/26/24 03/26/24 10:03 13:31 17:08 VBG pH 7.45 H VBG pCO2 55 VBG pO2 92 VBG HCO3 39 H VBG O2 Saturation 97.0 VBG Base Excess 12.9 POC Glucose 440 H* 317 H 03/26/24 03/27/24 20:42 07:43 VBG pH VBG pCO2 VBG pO2 VBG HCO3 VBG O2 Saturation VBG Base Excess POC Glucose 253 H 334 H Assessment and Plan (1) Acute hyperglycemia: Status: Acute (2) Moderate persistent asthma with exacerbation: Status: Acute (3) Tracheostomy dependent: Status: Acute Plan 53 yo F with history of trachesotomy, chronic resp failure with hypoxia, IDDM, obesity and asthma who presents to the ED with shortness of breath. She is admitted for 1. Acute on chronic resp failure with hypoxia, question chronic hypercarbic resp failure due to acute asthma excerbation secondary to RSV infection continue CO2 retainer protocol increase solu-medrol to 40mg q8h, continued scheduled + PRN nebs 2. Uncontrolled DM with hyerglycemia remains difficult to control - likely worsened by steroids increase lantus from 20u to 30u; increase pre-meal insulin from 4u to 6u + sliding scale continue diabetic diet 3. History of PE previously on Eliquis -- do not see any on recent claim history 4. Mood disorder continue home meds; gabapentin restarted today; 5. Obesity outpatient weight mgmt likely playing a role in her respiratory status Full Code DVT pptx - Lovenox reason for continued hospitalization: pt with still o2 requirement and diffuse wheezing -- increasing steroid dose, not ready for oral transition yet Quality Stroke Does the patient have a stroke diagnosis?: No VTE Prior VTE?: No VTE Risk Level:: Medical - moderate - high VTE Device Contraindication: Treatment Not Indicated VTE Drug Contraindication: N/A - Med Ordered
[2024-03-27] MEDS: guaiFENesin LA 600 MG TAB.ER.12H 1200 MG PO (10:10)
[2024-03-27] MEDS: Acetaminophen 325 MG TABLET 975 MG PO (10:13)
[2024-03-27 10:23] LABS: Glucose, Whole Blood 240 mg/dL (60-115)
[2024-03-27] MEDS: Insulin Glargine,Hum.rec.anlog 100 UNIT/ML 10 ML VIAL 10 UNIT SUBCUT (10:38)
[2024-03-27 13:16] LABS: Glucose, Whole Blood 262 mg/dL (60-115)
[2024-03-27] MEDS: Insulin Lispro 100 UNIT/ML 3 ML VIAL 6 UNIT SUBCUT ×2 (13:32→17:22)
[2024-03-27 16:21] LABS: Glucose, Whole Blood 237 mg/dL (60-115)
[2024-03-27] MEDS: Azithromycin 500 MG in 0.9 % Sodium Chloride 250 ML 125 MG IV (18:10)
[2024-03-27 19:36] LABS: Glucose, Whole Blood 141 mg/dL (60-115)
[2024-03-27 20:10] LABS: Glucose, Whole Blood 145 mg/dL (60-115)
[2024-03-27 20:18] LABS: VBG Base Excess 10.4 mmol/L; VBG HCO3 39 mmol/L (22-26); VBG pCO2 74 mmHg; VBG pH 7.33 (7.32-7.43); VBG pO2 54 mmHg
[2024-03-27 20:21] LABS: Venous Blood Gas Refer to POC result
[2024-03-27 21:11] LABS: ABG Base Excess 11.4 mmol/L; ABG HCO3 41 mmol/L (22-26); ABG pCO2 79 mmHg (32-45); ABG pH 7.31 (7.35-7.45); ABG pO2 62 mmHg (83-108)
--- NOTE | 2024-03-27 21:35 | PM.EVENT ---
Event Note Date of Service: 03/27/24 Event Note: Nurse reported drowsiness. Patient admitted for acute on chronic hypoxemic respiratory failure due to acute asthma exacerbation secondary to RSV infection. Obtained ABG which revealed respiratory acidosis. Patient is trach dependent and unable to do NIV on the floor. Patient does not use vent at the facility. Discussed with Dr. Ladd and will transfer the patient to ICU for management of hypercarbic respiratory failure. Time Spent With Patient Time: Total time managing care of this patient today ____ minutes.
--- NOTE | 2024-03-27 21:57 | P.CONCC_ITS ---
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 pulmonary embolism ( on Eliquis ), hyperlipidemia, hypertension, and morbid obesity who presented on 03/25/2024 with acute shortness of breath admitted to Hospital Medicine for acute on chronic hypoxic respiratory failure secondary to asthma/COPD exacerbation and RSV infection? being treated with Solu-Medrol 40 mg q.8 hours, p.r.n. Nebs, and azithromycin.? ?Tonight,? patient was noted to be drowsy, ? in mild respiratory distress.? ABG? showing acute? hypercapnic hypoxic respiratory failure? 7./ /62/41.? ?On my assessment patient extremely anxious. Alert and oriented. She has uncoffed #6 Bivonna,? which patient refuses to exchange for a cuffed trach. ?Informed patient we will try to use BiPAP over mouth,? but if unable to improve patient will need cuff trach. Will also diurese patient with lasix? on facetime, aware of plan Review of Systems 2 Review of Systems: as HPI PMFSH Past Medical History Medical History Partial small bowel obstruction Tracheostomy dependent History of cardiac arrest Wound drainage Takotsubo cardiomyopathy Kidney stones UTI (urinary tract infection) Bipolar 1 disorder Diabetes Asthma Substance abuse Family History Family History Mother No pertinent family history Father No pertinent family history Surgical History Surgical History S/P ureteral stent placement H/O exploratory laparotomy S/P cholecystectomy Social History Social History Household Members: Spouse Household Members Other:: 1 Housing: Apartment Do you presently have visiting nurse or other home services: No Alcohol intake: former Comment: stayed in ed Patient Tobacco Use Status: Never used Tobacco Second Hand Smoke Exposure: Yes Advance Directives Date on File: 02/04/23 service: No Current occupational status: disabled Meds Allergies Allergy/AdvReac Type Severity Reaction Status Date / Time pantoprazole Allergy Mild Redness of Verified 03/25/24 16:41 Skin Active Medications: Current Medications Acetaminophen (Acetaminophen 325 Mg Tablet) 975 mg PO Q6H PRN PRN Reason: Pain, Mild 1-3,fever,headache Last Admin: 03/27/24 10:13 Dose: 975 mg Albuterol Sulfate (Albuterol Sulfate (0.083%) 2.5 Mg/3 Ml Vial.Neb) 2.5 mg INHALE Q2H PRN PRN Reason: Shortness of Breath/Wheezing Last Admin: 03/27/24 05:30 Dose: 2.5 mg Albuterol/Ipratropium (Albuterol/Iprat 2.5/0.5mg 3 Ml Ampul.Neb) 3 ml INHALE RQ4H WHILE AWAKE [facility] [place] Last Admin: 03/27/24 20:35 Dose: 3 ml Atorvastatin Calcium (Atorvastatin Calcium 10 Mg Tablet) 10 mg PO BEDTIME [facility] Last Admin: 03/26/24 20:16 Dose: 10 mg Clonazepam (Clonazepam 1 Mg Tablet) 1 mg PO BID PRN PRN Reason: Anxiety Last Admin: 03/25/24 23:29 Dose: 1 mg Diphenhydramine HCl (Diphenhydramine Hcl 25 Mg Capsule) 50 mg PO DAILY PRN PRN Reason: Allergic Symptoms Last Admin: 03/26/24 16:39 Dose: 50 mg Enoxaparin Sodium (Enoxaparin Sodium 40 Mg/0.4 Ml Syringe) 40 mg SUBCUT Q24H [facility] [place] Last Admin: 03/27/24 08:28 Dose: 40 mg Escitalopram Oxalate (Escitalopram Oxalate 20 Mg Tablet) 20 mg PO BEDTIME [facility] [place] Last Admin: 03/26/24 20:16 Dose: 20 mg Famotidine (Famotidine 20 Mg Tablet) 20 mg PO BID [facility] [place] Last Admin: 03/27/24 08:30 Dose: 20 mg Gabapentin (Gabapentin 300 Mg Capsule) 300 mg PO BID [facility] [place] Glucose (Glucose Gel 15 Gm Gel..Gram.) 15 gm PO Q15M PRN; Protocol PRN Reason: per Hypoglycemia Standing Ord. Guaifenesin (Guaifenesin La 600 Mg Tab.Er.12h) 1,200 mg PO BID [facility] [place] Stop: 03/31/24 21:01 Last Admin: 03/27/24 10:10 Dose: 1,200 mg Dextrose (D10) 250 mls @ 750 mls/hr IV Q15M PRN; Protocol PRN Reason: per Hypoglycemia Standing Ord. Azithromycin 500 mg/ Sodium (Chloride) 250 mls @ 125 mls/hr IV Q24H [facility] [place] Last Admin: 03/27/24 18:10 Dose: 125 mls/hr Dexmedetomidine HCl (Precedex) 400 mcg in 100 mls @ 0 mls/hr IVCONT .Q0M [facility] [place]; Protocol Insulin Glargine (Insulin Glargine,Hum.Rec.Anlog 100 Unit/Ml 10 Ml Vial) 30 unit SUBCUT DAILY [facility] [place] Insulin Human Lispro (Insulin Lispro 100 Unit/Ml 3 Ml Vial) 0 unit SUBCUT QIDACHS [facility] [place]; Protocol Last Admin: 03/27/24 17:22 Dose: 6 unit Insulin Human Lispro (Insulin Lispro 100 Unit/Ml 3 Ml Vial) 6 unit SUBCUT QIDACHS [facility] [place] Last Admin: 03/27/24 17:22 Dose: 6 unit Lurasidone HCl (Lurasidone Hcl 20 Mg Tablet) 60 mg PO BEDTIME [facility] [place] Last Admin: 03/26/24 20:16 Dose: 60 mg Methylprednisolone Sodium Succinate (Methylprednisolone Sod Succ 40 Mg/Ml Vial) 40 mg IVPUSH Q8H [facility] [place] Last Admin: 03/27/24 17:22 Dose: 40 mg Morphine Sulfate (Morphine Sulfate 2 Mg/Ml Cartridge) 4 mg IVPUSH Q4H PRN; Protocol PRN Reason: Pain, Severe (Pain Scale 7-10) Last Admin: 03/27/24 17:22 Dose: 4 mg Ondansetron HCl (Ondansetron Hcl 4 Mg/2 Ml Vial) 4 mg IVPUSH Q6H PRN PRN Reason: Nausea and Vomiting Last Admin: 03/26/24 21:42 Dose: 4 mg Oxcarbazepine (Oxcarbazepine 300 Mg Tablet) 300 mg PO BID [facility] [place] Last Admin: 03/27/24 08:32 Dose: 300 mg Sodium Chloride (0.9 % Sodium Chloride Flush 3 Ml Syringe) 3 ml IVFLUSH QSHIFT [facility] [place] Last Admin: 03/27/24 17:23 Dose: 3 ml Trazodone HCl (Trazodone Hcl 50 Mg Tablet) 150 mg PO BEDTIME PRN PRN Reason: Sleep Last Admin: 03/25/24 23:30 Dose: 150 mg Home Medications ?Medication ?Instructions ?Recorded ?Confirmed ?Last Taken ?Type albuterol sulfate 90 mcg/actuation 2 puff inhalation Q4H PRN wheezing 02/02/23 03/26/24 09/07/23 20:00 History aerosol inhaler (Ventolin HFA) atorvastatin 10 mg tablet 10 mg PO BEDTIME 02/02/23 03/26/24 03/25/24 History clonazepam 1 mg tablet 1 mg PO BID PRN Anxiety 02/02/23 03/26/24 09/07/23 20:00 History escitalopram oxalate 20 mg tablet 20 mg PO BEDTIME 02/02/23 03/26/24 03/25/24 History famotidine 20 mg tablet 20 mg PO BID 02/02/23 03/26/24 03/25/24 History fluticasone propionate 50 1 spray intranasal DAILY allergies 02/02/23 03/26/24 03/25/24 History mcg/actuation nasal spray,suspension glipizide 5 mg tablet 5 mg PO DAILY 02/02/23 03/26/24 03/25/24 History insulin lispro 100 unit/mL 1 sliding scale dose subcut TIDAC 02/02/23 03/26/24 03/25/24 History subcutaneous pen lurasidone 60 mg tablet 60 mg PO BEDTIME 02/02/23 03/26/24 03/25/24 History metformin 500 mg tablet,extended 1,000 mg PO BID 02/02/23 03/26/24 03/25/24 History release 24 hr oxcarbazepine 300 mg tablet 300 mg PO BID 02/02/23 03/26/24 03/25/24 History trazodone 150 mg tablet 150 mg PO BEDTIME PRN Sleep 02/02/23 03/26/24 09/07/23 20:00 History insulin glargine 100 unit/mL (3 20 unit subcut DAILY 06/15/23 03/26/24 03/25/24 History mL) subcutaneous pen (Lantus Solostar U-100 Insulin) diphenhydramine HCl 25 mg capsule 50 mg PO DAILY PRN Allergic 08/18/23 03/26/24 09/07/23 20:00 History (Benadryl) Symptoms ibuprofen 200 mg tablet 200 mg PO Q8H PRN Pain 09/08/23 03/26/24 Unknown History gabapentin 300 mg capsule 300 mg PO BID 03/26/24 03/26/24 03/25/24 History mometasone-formoterol HFA 200 2 puff inhalation BID 03/26/24 03/26/24 03/25/24 History mcg-5 mcg/actuation aerosol inhaler (Dulera) promethazine 25 mg tablet 25 mg PO DAILY PRN nausea 03/26/24 03/26/24 Unknown History Physical Exam 2 Vital Signs: Vital Signs: Last Vital Signs Temp 98.7 F 03/27/24 20:00 Pulse 100 03/27/24 20:36 Resp 24 H 03/27/24 20:36 BP 148/70 H 03/27/24 20:00 Pulse Ox 92 03/27/24 20:00 O2 Del Method Nasal Cannula 03/27/24 20:00 O2 Flow Rate 11 03/27/24 20:00 Oxygen Flow Rate 4 03/25/24 16:39 BMI result Body Mass Index 41.0 ?General:? extremely anxious, alert and oriented x 3 ?HEENT:? Head is normocephalic, atraumatic, pupils equal round reactive to light accommodation bilaterally.? Extraocular movements appear intact.? Buccal mucosa is dry, Neck is supple ?Cardiac:? Sinus, Clear S1-S2, no murmurs rubs or gallops. BLE trace edema ?Pulmonary:? Diffuse rhonchi, and Expiratory wheezes bases. ?Abdomen:? ?Abdomen soft, non-tender, non-distended. Normal bowel sounds. No pulsatile mass. No hepatosplenomegaly. ?Musculoskeletal:? Moving all 4 extremities upon request a major joints, there is no crepitus or tenderness.? The strength is 5/5 bilaterally and throughout all 4 extremities.? Gait not assessed at this point. ?Neurologic:?No focal deficits noted.Motor strength as above.?? ?Skin:? No ulcers. Vascular:? 2+ pulses upper and lower extremities distally.? 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 pulmonary embolism ( ? Eliquis ), hyperlipidemia, hypertension, and morbid obesity? admitted to ICU for management of acute hypercapnic and hypoxic respiratory failure due to asthma? exacerbation,? and RSV infection Plan: Neuro:? ?No acute issues Cardiac:?? ?No acute issues Pulmonary:?? Acute? hypercapnic hypoxic? respiratory failure-? ? patient was admitted for? asthma exacerbation and RSV infection,? with some degree of fluid overload now.? Will diurese with Lasix.? ?Continue azithromycin,? systemic glucocorticoid, nebulized bronchodilators.? Renal:? ?No Acute issues Endo:?? ?Underlying history of diabetes mellitus. ? On systemic glucocorticoids, cont lantus/ lispro.??? GI:?? ?No acute issues ?No acute issues Heme/Onc:? No acute issues. ID: No acute issues? Psych:? Mood disorder. HOLD meds when on precedex? Miscellaneous:? No acute issues. Prophylaxis:? patient has a history of PE, ? but no Eliquis and recent medication history.? Continue Lovenox CODE: FULL code confirmed patient and ?
--- NOTE | 2024-03-27 22:08 | PC.NURSE ---
Oncoming RN inital assessment, patient appears very anxious, sweaty, lips bluish tint. Patient is alert with ams. Patient shaky, nodding off, getting up oob, taking off her oxygen due to confusion. Patient has a trach and currently only on a nasal cannula. Sats dropping to the 70's when patient takes off oxygen. Previous RN states patient ripped off her trach mask and wouldnt keep it on. Both trach mask and oxygen applied because patient was dropping sats with just one or the other. Patient initially refusing abg and any care to her trach. Respiratory here and aware of situation. MD ordered VBG which was taken and read. MD up to assess patient and talked her into ABG which was also drawn and read. Decision was made to transfer patient to ICU to address her level of care. Report called to [employer] and patient safely transferred.
[2024-03-27] MEDS: dexmedeTOMIDidine HCL/NS 400 MCG/100 ML INFUS..BTL 13.13 MCG IVCONT (22:18)
[2024-03-27] MEDS: Furosemide 40 MG/4 ML VIAL IVPUSH (22:19)
[2024-03-27 22:44] LABS: VBG Base Excess 14.3 mmol/L; VBG HCO3 41 mmol/L (22-26); VBG pCO2 58 mmHg; VBG pH 7.45 (7.32-7.43); VBG pO2 38 mmHg
[2024-03-27 23:00] LABS: Anion Gap 12 (12-20); Blood Urea Nitrogen 25 mg/dL (9-16); Calcium 9.2 mg/dL (8.4-10.2); Carbon Dioxide 35 mmol/L (22-29); Chloride 96 mmol/L (96-108); Creatinine Clr Calc Pharmacy 69.6; Estimated Glomerular Filt Rate 53; Glucose Random 155 mg/dL (60-115); Lactic Acid 0.9 mmol/L (0.5-2.0); Magnesium 1.9 mg/dL (1.6-2.6); Phosphorus 4.4 mg/dL (2.7-4.5); Potassium 4.9 mmol/L (3.3-5.1); Sodium 138 mmol/L (135-145)
[2024-03-27 23:07] LABS: B Type Natriuretic Peptide 99 pg/mL (<100)
[2024-03-27 23:22] LABS: ABG Refer to POC result
[2024-03-27 23:30] LABS: Venous Blood Gas Refer to POC result
[2024-03-28] VITALS (22 sets, daily range): BP systolic 113–166; BP diastolic 53–95; PULSE 66–100; RESP 5–94; TEMP 36.1–36.9; O2SAT 91–99; BMI 41.4
[2024-03-28] MEDS: methylPREDNISolone Sod Succ 40 MG/ML VIAL IVPUSH ×3 (00:14→17:27)
[2024-03-28] MEDS: 0.9 % Sodium Chloride Flush 3 ML SYRINGE IVFLUSH ×3 (00:14→14:27)
--- NOTE | 2024-03-28 05:12 | PC.RT ---
BIPAP ordered but Pt refused to wear at all
[2024-03-28 05:35] LABS: VBG Base Excess 18.7 mmol/L; VBG HCO3 43 mmol/L (22-26); VBG pCO2 50 mmHg; VBG pH 7.55 (7.32-7.43); VBG pO2 70 mmHg
[2024-03-28 05:45] LABS: MANUAL DIFF FLAG NO
[2024-03-28 05:50] LABS: Basophils Percent Auto 0.3 % (0-2); Eosinophils Percent Auto 0.1 % (0-4); Hemoglobin 11.5 g/dl (12.0-16.0); Imm Gran Pct Auto 0.9 % (0.0-0.4); Lymphocytes Absolute Auto 0.8 X10*3/uL (1.2-4.9); Lymphocytes Percent Auto 7.3 % (20-40); Mean Corpuscular HGB Conc 31.1 g/dl (31.0-35.0); Mean Corpuscular Hemoglobin 26.4 pg (27.0-33.0); Mean Corpuscular Volume 84.9 fL (80.0-98.0); Mean Platelet Volume 10.2 fL (9.4-12.3); Monocytes Absolute Auto 0.4 X10*3/uL (0.1-1.2); Monocytes Percent Auto 3.5 % (2-11); Neutrophils Absolute Auto 10.2 x10*3/uL (2.0-8.3); Neutrophils Percent Auto 87.9 % (45-73); Platelet Count 332 X10*3/uL (160-400); Red Blood Count 4.36 X10*6/uL (4.20-5.50); Red Cell Distribution Width 13.8 % (11.0-16.0); White Blood Count 11.6 X10*3/uL (4.8-10.8)
[2024-03-28 05:51] LABS: Venous Blood Gas Refer to POC result
[2024-03-28 06:08] LABS: Albumin Level 3.6 g/dL (3.5-5.0); Anion Gap 15 (12-20); Blood Urea Nitrogen 27 mg/dL (9-16); Calcium 8.9 mg/dL (8.4-10.2); Carbon Dioxide 34 mmol/L (22-29); Chloride 91 mmol/L (96-108); Creatinine Clr Calc Pharmacy 73.4; Estimated Glomerular Filt Rate 56; Glucose Random 286 mg/dL (60-115); Magnesium 1.9 mg/dL (1.6-2.6); Phosphorus 3.8 mg/dL (2.7-4.5); Potassium 4.4 mmol/L (3.3-5.1); Sodium 136 mmol/L (135-145)
[2024-03-28 07:53] LABS: Glucose, Whole Blood 267 mg/dL (60-115)
[2024-03-28] MEDS: Morphine Sulfate 2 MG/ML CARTRIDGE 4 MG IVPUSH ×3 (08:06→22:14)
[2024-03-28] MEDS: Enoxaparin Sodium 40 MG/0.4 ML SYRINGE SUBCUT (08:07)
[2024-03-28] MEDS: guaiFENesin LA 600 MG TAB.ER.12H 1200 MG PO ×2 (08:08→21:07)
[2024-03-28] MEDS: Gabapentin 300 MG CAPSULE PO ×2 (08:08→21:07)
[2024-03-28] MEDS: Famotidine 20 MG TABLET PO ×2 (08:08→21:07)
[2024-03-28] MEDS: OXcarbazepine 300 MG TABLET PO ×2 (08:08→21:08)
[2024-03-28] MEDS: Insulin Lispro 100 UNIT/ML 3 ML VIAL SUBCUT ×4 (08:09→21:03)
[2024-03-28] MEDS: Insulin Glargine,Hum.rec.anlog 100 UNIT/ML 10 ML VIAL 30 UNIT SUBCUT (08:09)
[2024-03-28] MEDS: Insulin Lispro 100 UNIT/ML 3 ML VIAL 6 UNIT SUBCUT ×4 (08:09→21:04)
--- NOTE | 2024-03-28 08:14 | PM.CCPN ---
Subjective Subjective Date of Service: 03/28/24 Interval History: admitted ICU for reported drowsiness d/t respiratory acidosis, though upon evaluation was anxious w/ hyperventilation, did not require non-invasive ventilation Critical Care Time (minutes): 0 Physical Exam Vital Signs: Vital Signs: Last Vital Signs Temp 98.5 F 03/28/24 08:00 Pulse 71 03/28/24 08:00 Resp 15 03/28/24 08:00 BP 152/78 H 03/28/24 08:00 Pulse Ox 96 03/28/24 08:00 O2 Del Method Nasal Cannula 03/28/24 08:00 O2 Flow Rate 5 03/28/24 08:00 FiO2 30 03/27/24 23:00 Oxygen Flow Rate 4 03/25/24 16:39 BMI result Body Mass Index 41.4 Const: General: cooperative, healthy appearing, comfortable, no acute distress, well developed, alert, awake and Physically active Orientation/consciousness: patient oriented x3 HEENT: Head: Yes normal to inspection, Yes normocephalic and Yes atraumatic Eyes: General: appearance normal, both eyes and all related structures Neck: Other: tracheostomy midline, clean, dry, intact Neck: Yes normal visual inspection, Yes full ROM, Yes no meningeal signs, Yes trachea midline and Yes supple Chest: Chest palpation & inspection: normal inspection of the chest Resp: Other: appreciable diffuse expiratory wheezing; no appreciable rales, rhonchi Effort & Inspection: normal respiratory effort Cardio: Rate: regular rate Rhythm: regular rhythm GI: Inspection: Yes normal to inspection, No Abdominal wall edema and No distended Palpation (GI): Soft to palpation, not firm, nontender, no guarding and not rigid Skin: General skin exam: no rashes or lesions noted Neuro: General: patient oriented x3, tone normal, moves all extremities, no meningeal signs and no focal motor deficits Extrem: Other: appreciable 1+ pitting edema to bilateral shins General: Yes normal to inspection, Yes full ROM and Yes capillary refill normal Psych: Appearance: grossly normal Objective Data Labs 03/28/24 05:18 03/28/24 05:18 Labs: Laboratory Results - last 24 hr 03/27/24 03/27/24 03/27/24 10:18 13:07 16:17 WBC RBC Hgb Hct MCV MCH MCHC RDW Plt Count MPV Immature Gran % (Auto) Neut % (Auto) Lymph % (Auto) [place] % (Auto) Eos % (Auto) Baso % (Auto) Lymph # (Auto) [place] # (Auto) Eos # (Auto) Baso # (Auto) Abs Immat Gran (auto) Absolute Neuts (auto) Absolute Nucleated RBC Nucleated RBC % (auto) Hold Blue Top O2 Saturation ABG pH at Pt Temp ABG pCO2 at Pt Temp ABG pO2 at Pt Temp ABG HCO3 ABG Base Excess (Actual) VBG pH VBG pCO2 VBG pO2 VBG HCO3 VBG O2 Saturation VBG Base Excess Sodium Potassium Chloride Carbon Dioxide Anion Gap BUN Creatinine Estim Creat Clear Calc Estimated GFR POC Glucose 240 H 262 H 237 H Random Glucose Lactic Acid Calcium Phosphorus Magnesium B-Natriuretic Peptide Albumin 03/27/24 03/27/24 03/27/24 19:30 20:05 20:14 WBC RBC Hgb Hct MCV MCH MCHC RDW Plt Count MPV Immature Gran % (Auto) Neut % (Auto) Lymph % (Auto) [place] % (Auto) Eos % (Auto) Baso % (Auto) Lymph # (Auto) [place] # (Auto) Eos # (Auto) Baso # (Auto) Abs Immat Gran (auto) Absolute Neuts (auto) Absolute Nucleated RBC Nucleated RBC % (auto) Hold Blue Top O2 Saturation ABG pH at Pt Temp ABG pCO2 at Pt Temp ABG pO2 at Pt Temp ABG HCO3 ABG Base Excess (Actual) VBG pH 7.33 VBG pCO2 74 VBG pO2 54 VBG HCO3 39 H VBG O2 Saturation 78.0 VBG Base Excess 10.4 Sodium Potassium Chloride Carbon Dioxide Anion Gap BUN Creatinine Estim Creat Clear Calc Estimated GFR POC Glucose 141 H 145 H Random Glucose Lactic Acid Calcium Phosphorus Magnesium B-Natriuretic Peptide Albumin 03/27/24 03/27/24 03/27/24 21:01 22:33 22:35 WBC RBC Hgb Hct MCV MCH MCHC RDW Plt Count MPV Immature Gran % (Auto) Neut % (Auto) Lymph % (Auto) [place] % (Auto) Eos % (Auto) Baso % (Auto) Lymph # (Auto) [place] # (Auto) Eos # (Auto) Baso # (Auto) Abs Immat Gran (auto) Absolute Neuts (auto) Absolute Nucleated RBC Nucleated RBC % (auto) Hold Blue Top SEE NOTE O2 Saturation 86.0 ABG pH at Pt Temp 7.31 L ABG pCO2 at Pt Temp 79 H* ABG pO2 at Pt Temp 62 L ABG HCO3 41 H ABG Base Excess (Actual) 11.4 VBG pH 7.45 H VBG pCO2 58 VBG pO2 38 VBG HCO3 41 H VBG O2 Saturation 65.0 VBG Base Excess 14.3 Sodium 138 Potassium 4.9 Chloride 96 Carbon Dioxide 35 H Anion Gap 12 BUN 25 H Creatinine 1.07 Estim Creat Clear Calc 69.6 Estimated GFR 53 POC Glucose Random Glucose 155 H Lactic Acid 0.9 Calcium 9.2 Phosphorus 4.4 Magnesium 1.9 B-Natriuretic Peptide 99 Albumin 03/28/24 03/28/24 03/28/24 05:18 05:23 07:47 WBC 11.6 H RBC 4.36 Hgb 11.5 L Hct 37.0 MCV 84.9 MCH 26.4 L MCHC 31.1 RDW 13.8 Plt Count 332 MPV 10.2 Immature Gran % (Auto) 0.9 H Neut % (Auto) 87.9 H Lymph % (Auto) 7.3 L [place] % (Auto) 3.5 Eos % (Auto) 0.1 Baso % (Auto) 0.3 Lymph # (Auto) 0.8 L [place] # (Auto) 0.4 Eos # (Auto) 0.0 Baso # (Auto) 0.0 Abs Immat Gran (auto) 0.10 H Absolute Neuts (auto) 10.2 H Absolute Nucleated RBC 0.000 Nucleated RBC % (auto) 0.0 Hold Blue Top O2 Saturation ABG pH at Pt Temp ABG pCO2 at Pt Temp ABG pO2 at Pt Temp ABG HCO3 ABG Base Excess (Actual) VBG pH 7.55 H VBG pCO2 50 VBG pO2 70 VBG HCO3 43 H VBG O2 Saturation 95.0 VBG Base Excess 18.7 Sodium 136 Potassium 4.4 Chloride 91 L Carbon Dioxide 34 H Anion Gap 15 BUN 27 H Creatinine 1.02 Estim Creat Clear Calc 73.4 Estimated GFR 56 POC Glucose 267 H Random Glucose 286 H Lactic Acid Calcium 8.9 Phosphorus 3.8 Magnesium 1.9 B-Natriuretic Peptide Albumin 3.6 Progress Note: A&P Assessment and plan (1) Acute and chronic respiratory failure: Status: Acute (2) Acute asthma exacerbation: Status: Acute (3) Pneumonia: Status: Acute (4) Respiratory syncytial virus (RSV) infection: Status: Acute Plan Patient is a 53 Y F w/ hypertension, hyperlipidemia, insulin-dependent diabetes mellitus, c/b obesity, prior cardiac arrest, s/p tracheostomy, chronic mixed respiratory failure, though not on ventilator, asthma, and psychiatric comorbidities presenting to emergency department on 03/25 w/ signs/symptoms c/f asthma exacerbation, found to be RSV positive, admitted medicine; on 03/27 PM, patient reportedly drowsy, found to have respiratory acidosis, upgraded to ICU, though did not require non-invasive ventilation N: no acute issues CV: no acute issues R: acute on chronic mixed respiratory failure, d/t RSV in setting of asthma; supportive care GI: no acute issues : no acute issues; to maintain overall net negative fluid balance H: no acute issues; reportedly prior pulmonary embolism, though not on home anticoagulation; DVT prophylaxis w/ enoxaparin ID: empiric ceftriaxone, azithromycin in setting of asthma exacerbation E: insulin-dependent diabetes mellitus, insulin regimen P: psychiatric comorbidities; to resume home medications; judicious use of sedating medications if concerned for drowsiness Quality Stroke Does the patient have a stroke diagnosis?: No VTE Prior VTE?: No VTE Risk Level:: Medical - moderate - high VTE Device Contraindication: N/A - Device Ordered VTE Drug Contraindication: N/A - Med Ordered
[2024-03-28] MEDS: Albuterol/Iprat 2.5/0.5MG 3 ML AMPUL.NEB INHALE ×3 (08:34→15:11)
[2024-03-28] MEDS: Furosemide 20 MG/2 ML VIAL IVPUSH (10:20)
--- NOTE | 2024-03-28 11:14 | PM.EVENT ---
Event Note Date of Service: 03/28/24 Event Note: ICU transfer, discussed with ICU attending. 53 yo F with history of trachesotomy, chronic resp failure with hypoxia, IDDM, obesity and asthma who presents to the ED with shortness of breath. She is admitted for Acute encephalopathy with hypercarbia. Yesterday evening patient had some encephalopathy, sleepiness and elevated CO2 Transferred to the ICU but did not require any respiratory support including intubation or BiPAP Transferred back to [facility] today with no changes to medications or treatment. Acute on chronic resp failure with hypoxia, question chronic hypercarbic resp failure due to acute asthma excerbation secondary to RSV infection continue CO2 retainer protocol solu-medrol to 40mg q8h, continued scheduled + PRN nebs Uncontrolled DM2 with hyperglycemia remains difficult to control - likely worsened by steroids increase lantus from 20u to 30u; increase pre-meal insulin from 4u to 6u + sliding scale continue diabetic diet History of PE previously on Eliquis>do not see any on recent claim history Mood disorder continue home meds; gabapentin Morbid Obesity Discussed importance of weight management as this may be contributing to worsening of other comorbidities Full Code DVT pptx - Lovenox reason for continued hospitalization: pt with still o2 requirement and diffuse wheezing -- increasing steroid dose, not ready for oral transition yet Time Spent With Patient Time: Total time managing care of this patient today ____ minutes.
[2024-03-28 11:28] LABS: Glucose, Whole Blood 165 mg/dL (60-115)
[2024-03-28] MEDS: Lidocaine 4 % Patch ADH..PATCH 1 PATCH TRANSDERMA (12:58)
[2024-03-28] MEDS: Ibuprofen 800 MG TABLET PO (12:59)
[2024-03-28] MEDS: Morphine Sulfate 2 MG/ML CARTRIDGE IVPUSH (14:27)
[2024-03-28 16:21] LABS: Glucose, Whole Blood 312 mg/dL (60-115)
[2024-03-28] MEDS: Azithromycin 500 MG in 0.9 % Sodium Chloride 250 ML 125 MG IV (17:26)
[2024-03-28] MEDS: clonazePAM 1 MG TABLET PO (17:27)
[2024-03-28 20:45] LABS: Glucose, Whole Blood 514 mg/dL (60-115)
[2024-03-28] MEDS: Insulin Regular, Human 100 UNIT/ML 10 ML VIAL 10 UNIT IVPUSH (21:02)
[2024-03-28] MEDS: Insulin Glargine,Hum.rec.anlog 100 UNIT/ML 10 ML VIAL 10 UNIT SUBCUT (21:04)
[2024-03-28] MEDS: Escitalopram Oxalate 20 MG TABLET PO (21:08)
[2024-03-28] MEDS: Atorvastatin Calcium 10 MG TABLET PO (21:08)
[2024-03-28] MEDS: Lurasidone HCl 20 MG TABLET 60 MG PO (21:08)
[2024-03-28 23:10] LABS: Glucose, Whole Blood 287 mg/dL (60-115)
[2024-03-29] VITALS (9 sets, daily range): BP systolic 98–175; BP diastolic 62–85; PULSE 64–79; RESP 17–20; TEMP 36.1–36.7; O2SAT 96–99; BMI 41.5
[2024-03-29] MEDS: Morphine Sulfate 2 MG/ML CARTRIDGE 4 MG IVPUSH ×5 (02:14→18:10)
[2024-03-29] MEDS: Acetaminophen 325 MG TABLET 975 MG PO (04:48)
[2024-03-29] MEDS: Albuterol Sulfate (0.083%) 2.5 MG/3 ML VIAL.NEB INHALE (05:18)
[2024-03-29 06:35] LABS: Venous Blood Gas Refer to POC result
[2024-03-29 06:40] LABS: VBG Base Excess 13.8 mmol/L; VBG HCO3 40 mmol/L (22-26); VBG pCO2 61 mmHg; VBG pH 7.43 (7.32-7.43); VBG pO2 35 mmHg
[2024-03-29 06:40] LABS: MANUAL DIFF FLAG NO
[2024-03-29 06:58] LABS: Anion Gap 14 (12-20); Blood Urea Nitrogen 28 mg/dL (9-16); Calcium 8.9 mg/dL (8.4-10.2); Carbon Dioxide 34 mmol/L (22-29); Chloride 90 mmol/L (96-108); Creatinine Clr Calc Pharmacy 68.3; Estimated Glomerular Filt Rate 52; Glucose Random 337 mg/dL (60-115); Magnesium 1.9 mg/dL (1.6-2.6); Phosphorus 3.6 mg/dL (2.7-4.5); Potassium 4.3 mmol/L (3.3-5.1); Sodium 134 mmol/L (135-145)
[2024-03-29 07:05] LABS: Basophils Percent Auto 0.3 % (0-2); Eosinophils Absolute Auto 0.1 X10*3/uL (0.0-0.4); Eosinophils Percent Auto 0.5 % (0-4); Hematocrit 37.9 % (37.0-47.0); Hemoglobin 11.9 g/dl (12.0-16.0); Imm Gran Abs Auto 0.08 X10*3/uL (0.00-0.03); Imm Gran Pct Auto 0.8 % (0.0-0.4); Lymphocytes Absolute Auto 1.9 X10*3/uL (1.2-4.9); Lymphocytes Percent Auto 19.4 % (20-40); Mean Corpuscular HGB Conc 31.4 g/dl (31.0-35.0); Mean Corpuscular Hemoglobin 26.6 pg (27.0-33.0); Mean Corpuscular Volume 84.6 fL (80.0-98.0); Mean Platelet Volume 9.2 fL (9.4-12.3); Monocytes Absolute Auto 0.7 X10*3/uL (0.1-1.2); Monocytes Percent Auto 6.9 % (2-11); Neutrophils Absolute Auto 7.1 x10*3/uL (2.0-8.3); Neutrophils Percent Auto 72.1 % (45-73); Platelet Count 395 X10*3/uL (160-400); Red Blood Count 4.48 X10*6/uL (4.20-5.50); Red Cell Distribution Width 13.8 % (11.0-16.0); White Blood Count 9.9 X10*3/uL (4.8-10.8)
[2024-03-29 07:49] LABS: Glucose, Whole Blood 313 mg/dL (60-115)
[2024-03-29] MEDS: Furosemide 20 MG/2 ML VIAL IVPUSH (08:13)
[2024-03-29] MEDS: methylPREDNISolone Sod Succ 40 MG/ML VIAL IVPUSH ×2 (08:13→20:49)
[2024-03-29] MEDS: OXcarbazepine 300 MG TABLET PO ×2 (08:14→20:49)
[2024-03-29] MEDS: Insulin Glargine,Hum.rec.anlog 100 UNIT/ML 10 ML VIAL 30 UNIT SUBCUT (08:14)
[2024-03-29] MEDS: clonazePAM 1 MG TABLET PO (08:14)
[2024-03-29] MEDS: Gabapentin 300 MG CAPSULE PO ×2 (08:14→20:49)
[2024-03-29] MEDS: Famotidine 20 MG TABLET PO ×2 (08:14→20:49)
[2024-03-29] MEDS: Insulin Lispro 100 UNIT/ML 3 ML VIAL SUBCUT ×4 (08:14→20:50)
[2024-03-29] MEDS: Insulin Lispro 100 UNIT/ML 3 ML VIAL 6 UNIT SUBCUT ×4 (08:14→20:50)
[2024-03-29] MEDS: 0.9 % Sodium Chloride Flush 3 ML SYRINGE IVFLUSH ×3 (08:15→20:50)
[2024-03-29] MEDS: guaiFENesin LA 600 MG TAB.ER.12H 1200 MG PO ×2 (08:15→20:49)
[2024-03-29] MEDS: Enoxaparin Sodium 40 MG/0.4 ML SYRINGE SUBCUT (08:15)
[2024-03-29 11:39] LABS: Glucose, Whole Blood 314 mg/dL (60-115)
--- NOTE | 2024-03-29 14:23 | P.PNIM_ITS ---
Subjective Subjective Date of Service: 03/29/24 Interval History: seen and examined this morning follow up for respiratory failure reports improvement in breathing Review of Systems Review of Systems: Yes all other systems are reviewed and are negative Constitutional Constitutional: Denies chills and Denies fever(s) Cardiovascular Cardiovascular: Denies chest pain and Denies palpitations Endocrine Endocrine: Denies palpitations Physical Exam 2 Vital Signs: Vital Signs: Last Vital Signs Temp 97.1 F 03/29/24 11:45 Pulse 79 03/29/24 11:45 Resp 19 03/29/24 11:45 BP 157/78 H 03/29/24 11:45 Pulse Ox 98 03/29/24 11:45 O2 Del Method Nasal Cannula 03/29/24 11:45 O2 Flow Rate 4 03/29/24 11:45 FiO2 30 03/27/24 23:00 Oxygen Flow Rate 4 03/25/24 16:39 BMI result Body Mass Index 41.5 Const: General: cooperative, comfortable, no acute distress, alert and awake Nutritional Appearance: obese Orientation/consciousness: patient oriented x3 Neck: Other: trach in place Resp: Other: b/l wheeze Effort & Inspection: normal respiratory effort, able to speak in complete sentences, no respiratory distress and no use of accessory muscles Cardio: Rate: regular rate GI: Inspection: No distended Palpation (GI): Soft to palpation and nontender Neuro: General: patient oriented x3, moves all extremities and CN's II-XI intact bilaterally Extrem: General: Yes no pedal edema Objective Data Active Medications Acetaminophen (Acetaminophen 325 Mg Tablet) 975 mg PO Q6H PRN PRN Reason: Pain, Mild 1-3,fever,headache Last Admin: 03/29/24 04:48 Dose: 975 mg Documented By: JUANA Albuterol Sulfate (Albuterol Sulfate (0.083%) 2.5 Mg/3 Ml Vial.Neb) 2.5 mg INHALE Q2H PRN PRN Reason: Shortness of Breath/Wheezing Last Admin: 03/29/24 05:18 Dose: 2.5 mg Documented By: PERRY Albuterol/Ipratropium (Albuterol/Iprat 2.5/0.5mg 3 Ml Ampul.Neb) 3 ml INHALE RQ4H WHILE AWAKE [facility] Last Admin: 03/29/24 11:45 Dose: Not Given Documented By: REX Non-Admin Reason: Patient Refused Atorvastatin Calcium (Atorvastatin Calcium 10 Mg Tablet) 10 mg PO BEDTIME RILEY Last Admin: 03/28/24 21:08 Dose: 10 mg Documented By: JUANA Clonazepam (Clonazepam 1 Mg Tablet) 1 mg PO BID PRN PRN Reason: Anxiety Last Admin: 03/29/24 08:14 Dose: 1 mg Documented By: ASTRID Enoxaparin Sodium (Enoxaparin Sodium 40 Mg/0.4 Ml Syringe) 40 mg SUBCUT Q24H RIELY Last Admin: 03/29/24 08:15 Dose: 40 mg Documented By: ASTRID Escitalopram Oxalate (Escitalopram Oxalate 20 Mg Tablet) 20 mg PO BEDTIME RILEY Last Admin: 03/28/24 21:08 Dose: 20 mg Documented By: JUANA Famotidine (Famotidine 20 Mg Tablet) 20 mg PO BID [facility] Last Admin: 03/29/24 08:14 Dose: 20 mg Documented By: ASTRID Furosemide (Furosemide 20 Mg/2 Ml Vial) 20 mg IVPUSH DAILY [facility]; Protocol Last Admin: 03/29/24 08:13 Dose: 20 mg Documented By: ASTRID Gabapentin (Gabapentin 300 Mg Capsule) 300 mg PO BID [facility] Last Admin: 03/29/24 08:14 Dose: 300 mg Documented By: ASTRID Glucose (Glucose Gel 15 Gm Gel..Gram.) 15 gm PO Q15M PRN; Protocol PRN Reason: per Hypoglycemia Standing Ord. Guaifenesin (Guaifenesin La 600 Mg Tab.Er.12h) 1,200 mg PO BID [facility] Stop: 03/31/24 21:01 Last Admin: 03/29/24 08:15 Dose: 1,200 mg Documented By: ASTRID Dextrose (D10) 250 mls @ 750 mls/hr IV Q15M PRN; Protocol PRN Reason: per Hypoglycemia Standing Ord. Azithromycin 500 mg/ Sodium (Chloride) 250 mls @ 125 mls/hr IV Q24H [facility] Last Infusion: 03/28/24 19:41 Dose: Infused Documented By: JUANA Ibuprofen (Ibuprofen 800 Mg Tablet) 800 mg PO Q8H PRN PRN Reason: Pain, Mild (Pain Scale 1-3) Last Admin: 03/28/24 12:59 Dose: 800 mg Documented By: MIKAYLA Insulin Glargine (Insulin Glargine,Hum.Rec.Anlog 100 Unit/Ml 10 Ml Vial) 30 unit SUBCUT DAILY [facility] Last Admin: 03/29/24 08:14 Dose: 30 unit Documented By: ASTRID Insulin Human Lispro (Insulin Lispro 100 Unit/Ml 3 Ml Vial) 0 unit SUBCUT QIDACHS [facility]; Protocol Last Admin: 03/29/24 11:54 Dose: 10 unit Documented By: ASTRID Insulin Human Lispro (Insulin Lispro 100 Unit/Ml 3 Ml Vial) 6 unit SUBCUT QIDACHS [facility] Last Admin: 03/29/24 11:55 Dose: 6 unit Documented By: ASTRID Lidocaine (Lidocaine 4 % Patch Adh..Patch) 1 patch TRANSDERMA DAILY [facility]; Protocol Last Admin: 03/29/24 08:16 Dose: Not Given Documented By: ASTRID Non-Admin Reason: Patient Refused Lurasidone HCl (Lurasidone Hcl 20 Mg Tablet) 60 mg PO BEDTIME [facility] Last Admin: 03/28/24 21:08 Dose: 60 mg Documented By: JUANA Methylprednisolone Sodium Succinate (Methylprednisolone Sod Succ 40 Mg/Ml Vial) 40 mg IVPUSH Q8H [facility] Last Admin: 03/29/24 08:13 Dose: 40 mg Documented By: ASTRID Morphine Sulfate (Morphine Sulfate 2 Mg/Ml Cartridge) 4 mg IVPUSH Q4H PRN; Protocol PRN Reason: Pain, Severe (Pain Scale 7-10) Last Admin: 03/29/24 10:39 Dose: 4 mg Documented By: ASTRID Ondansetron HCl (Ondansetron Hcl 4 Mg/2 Ml Vial) 4 mg IVPUSH Q6H PRN PRN Reason: Nausea and Vomiting Last Admin: 03/26/24 21:42 Dose: 4 mg Documented By: ASAD Oxcarbazepine (Oxcarbazepine 300 Mg Tablet) 300 mg PO BID [facility] Last Admin: 03/29/24 08:14 Dose: 300 mg Documented By: ASTRID Oxycodone HCl (Oxycodone Hcl Er 10 Mg Tab.Er.12h) 10 mg PO BID PRN PRN Reason: Pain, Moderate(Pain Scale 4-6) Sodium Chloride (0.9 % Sodium Chloride Flush 3 Ml Syringe) 3 ml IVFLUSH QSHIFT [facility] Last Admin: 03/29/24 11:56 Dose: 3 ml Documented By: ASTRID Labs 03/29/24 06:30 03/29/24 06:30 Labs: Laboratory Results - last 24 hr 03/28/24 03/28/24 03/28/24 16:12 20:39 23:05 MCV MCH MCHC RDW Plt Count MPV Immature Gran % (Auto) Neut % (Auto) Lymph % (Auto) [place] % (Auto) Eos % (Auto) Baso % (Auto) Lymph # (Auto) [place] # (Auto) Eos # (Auto) Baso # (Auto) Abs Immat Gran (auto) Absolute Neuts (auto) Absolute Nucleated RBC Nucleated RBC % (auto) VBG pH VBG pCO2 VBG pO2 VBG HCO3 VBG O2 Saturation VBG Base Excess Anion Gap Estim Creat Clear Calc Estimated GFR POC Glucose 312 H 514 H* 287 H Random Glucose Calcium Phosphorus Magnesium 03/29/24 03/29/24 03/29/24 06:30 06:35 07:38 MCV 84.6 MCH 26.6 L MCHC 31.4 RDW 13.8 Plt Count 395 MPV 9.2 L Immature Gran % (Auto) 0.8 H Neut % (Auto) 72.1 Lymph % (Auto) 19.4 L [place] % (Auto) 6.9 Eos % (Auto) 0.5 Baso % (Auto) 0.3 Lymph # (Auto) 1.9 [place] # (Auto) 0.7 Eos # (Auto) 0.1 Baso # (Auto) 0.0 Abs Immat Gran (auto) 0.08 H Absolute Neuts (auto) 7.1 Absolute Nucleated RBC 0.000 Nucleated RBC % (auto) 0.0 VBG pH 7.43 VBG pCO2 61 VBG pO2 35 VBG HCO3 40 H VBG O2 Saturation 54.0 VBG Base Excess 13.8 Anion Gap 14 Estim Creat Clear Calc 68.3 Estimated GFR 52 POC Glucose 313 H Random Glucose 337 H Calcium 8.9 Phosphorus 3.6 Magnesium 1.9 03/29/24 11:26 MCV MCH MCHC RDW Plt Count MPV Immature Gran % (Auto) Neut % (Auto) Lymph % (Auto) [place] % (Auto) Eos % (Auto) Baso % (Auto) Lymph # (Auto) [place] # (Auto) Eos # (Auto) Baso # (Auto) Abs Immat Gran (auto) Absolute Neuts (auto) Absolute Nucleated RBC Nucleated RBC % (auto) VBG pH VBG pCO2 VBG pO2 VBG HCO3 VBG O2 Saturation VBG Base Excess Anion Gap Estim Creat Clear Calc Estimated GFR POC Glucose 314 H Random Glucose Calcium Phosphorus Magnesium Assessment and Plan (1) Acute respiratory failure with hypoxia and hypercapnia: Status: Acute Plan This is a 53 yo F with history of trachesotomy, chronic resp failure with hypoxia, IDDM, obesity and asthma who presents to the ED with shortness of breath, transferred to ICU for increased lethargy but did not require NIV, transferred back to medical floor 03/28 Acute encephalopathy with hypercarbia. Yesterday evening patient had some encephalopathy, sleepiness and elevated CO2 Transferred to the ICU but did not require any respiratory support including intubation or BiPAP Transferred back to [facility] today with no changes to medications or treatment. Acute on chronic resp failure with hypoxia, question chronic hypercarbic resp failure due to acute asthma excerbation secondary to RSV infection continue CO2 retainer protocol solu-medrol to 40mg, wean to q12h, continue scheduled + PRN nebs trach care blood cultures negative Uncontrolled DM2 with hyperglycemia remains difficult to control - likely worsened by steroids increased lantus from 20u to 30u; increase pre-meal insulin from 4u to 6u + sliding scale continue diabetic diet History of PE previously on Eliquis>do not see any on recent claim history Mood disorder continue home meds; gabapentin Morbid Obesity Discussed importance of weight management as this may be contributing to worsening of other comorbidities Full Code DVT pptx - Lovenox reason for continued hospitalization: pt with still o2 requirement and diffuse wheezing -- increasing steroid dose, not ready for oral transition yet Quality Stroke Does the patient have a stroke diagnosis?: No VTE Prior VTE?: No VTE Risk Level:: Medical - moderate - high VTE Device Contraindication: N/A - Device Ordered VTE Drug Contraindication: N/A - Med Ordered
[2024-03-29 15:30] LABS: Glucose, Whole Blood 227 mg/dL (60-115)
[2024-03-29] MEDS: Albuterol/Iprat 2.5/0.5MG 3 ML AMPUL.NEB INHALE (15:43)
[2024-03-29] MEDS: Azithromycin 500 MG in 0.9 % Sodium Chloride 250 ML 125 MG IV (17:42)
[2024-03-29 20:40] LABS: Glucose, Whole Blood 293 mg/dL (60-115)
[2024-03-29] MEDS: Escitalopram Oxalate 20 MG TABLET PO (20:49)
[2024-03-29] MEDS: Lurasidone HCl 20 MG TABLET 60 MG PO (20:49)
[2024-03-29] MEDS: Atorvastatin Calcium 10 MG TABLET PO (20:49)
[2024-03-30] VITALS (7 sets, daily range): BP systolic 124–156; BP diastolic 66–81; PULSE 69–84; RESP 18–20; TEMP 36.1–36.9; O2SAT 90–98; BMI 41.5
[2024-03-30] MEDS: Morphine Sulfate 2 MG/ML CARTRIDGE 4 MG IVPUSH ×3 (00:25→12:04)
[2024-03-30 07:25] LABS: Glucose, Whole Blood 384 mg/dL (60-115)
[2024-03-30] MEDS: 0.9 % Sodium Chloride Flush 3 ML SYRINGE IVFLUSH ×3 (07:42→21:44)
[2024-03-30] MEDS: Enoxaparin Sodium 40 MG/0.4 ML SYRINGE SUBCUT (07:43)
[2024-03-30] MEDS: Insulin Glargine,Hum.rec.anlog 100 UNIT/ML 10 ML VIAL 30 UNIT SUBCUT (07:43)
[2024-03-30] MEDS: guaiFENesin LA 600 MG TAB.ER.12H 1200 MG PO ×2 (07:44→21:43)
[2024-03-30] MEDS: Insulin Lispro 100 UNIT/ML 3 ML VIAL 6 UNIT SUBCUT ×4 (07:44→21:42)
[2024-03-30] MEDS: Gabapentin 300 MG CAPSULE PO ×2 (07:44→21:44)
[2024-03-30] MEDS: OXcarbazepine 300 MG TABLET PO ×2 (07:44→21:43)
[2024-03-30] MEDS: methylPREDNISolone Sod Succ 40 MG/ML VIAL IVPUSH (07:44)
[2024-03-30] MEDS: Famotidine 20 MG TABLET PO ×2 (07:44→21:43)
[2024-03-30] MEDS: Insulin Lispro 100 UNIT/ML 3 ML VIAL SUBCUT ×5 (07:45→21:42)
--- NOTE | 2024-03-30 11:10 | MHC.CM.PN ---
Per rounds, pt is not ready to DC, anticipate DC 03/31/24 to home. CM to follow for DC needs.
[2024-03-30 11:45] LABS: Glucose, Whole Blood 430 mg/dL (60-115)
[2024-03-30] MEDS: Insulin Glargine,Hum.rec.anlog 100 UNIT/ML 10 ML VIAL 10 UNIT SUBCUT (12:03)
--- NOTE | 2024-03-30 12:08 | PC.NURSE ---
POC at 1130 was 430; notified; Per new order to give 22 units of Lispro and 10 units of Lantus. POC to be rechecked
--- NOTE | 2024-03-30 14:14 | P.PNIM_ITS ---
Subjective Subjective Date of Service: 03/30/24 Interval History: seen and examined this morning follow up for asthma exacerbation/RSV reporting ANDERSEN but slowly improving Review of Systems Review of Systems: Yes all other systems are reviewed and are negative Constitutional Constitutional: Denies chills and Denies fever(s) Cardiovascular Cardiovascular: Denies chest pain and Denies dyspnea Respiratory Respiratory: Denies dyspnea Gastrointestinal Gastrointestinal: Denies abdominal pain, Denies nausea and Denies vomiting Physical Exam 2 Vital Signs: Vital Signs: Last Vital Signs Temp 96.9 F 03/30/24 07:45 Pulse 84 03/30/24 12:00 Resp 19 03/30/24 12:00 BP 140/78 H 03/30/24 12:00 Pulse Ox 98 03/30/24 12:00 O2 Del Method Room Air 03/30/24 12:00 O2 Flow Rate 4 03/30/24 03:51 FiO2 30 03/27/24 23:00 Oxygen Flow Rate 4 03/25/24 16:39 BMI result Body Mass Index 41.5 Const: General: cooperative, comfortable, no acute distress, alert and awake Nutritional Appearance: obese Orientation/consciousness: patient oriented x3 Neck: Other: trach in place Resp: Other: b/l wheeze Effort & Inspection: normal respiratory effort, able to speak in complete sentences, no respiratory distress and no use of accessory muscles Cardio: Rate: regular rate GI: Inspection: No distended Palpation (GI): Soft to palpation and nontender Neuro: General: patient oriented x3, moves all extremities and CN's II-XI intact bilaterally Extrem: General: Yes no pedal edema Objective Data Active Medications Acetaminophen (Acetaminophen 325 Mg Tablet) 975 mg PO Q6H PRN PRN Reason: Pain, Mild 1-3,fever,headache Last Admin: 03/29/24 04:48 Dose: 975 mg Documented By: JUANA Albuterol Sulfate (Albuterol Sulfate (0.083%) 2.5 Mg/3 Ml Vial.Neb) 2.5 mg INHALE Q2H PRN PRN Reason: Shortness of Breath/Wheezing Last Admin: 03/29/24 05:18 Dose: 2.5 mg Documented By: PERRY Albuterol/Ipratropium (Albuterol/Iprat 2.5/0.5mg 3 Ml Ampul.Neb) 3 ml INHALE RQ4H WHILE AWAKE [facility] Last Admin: 03/30/24 11:13 Dose: Not Given Documented By: LA NENA Non-Admin Reason: Pt refused sleeping Atorvastatin Calcium (Atorvastatin Calcium 10 Mg Tablet) 10 mg PO BEDTIME [facility] Last Admin: 03/29/24 20:49 Dose: 10 mg Documented By: JUANA Clonazepam (Clonazepam 1 Mg Tablet) 1 mg PO BID PRN PRN Reason: Anxiety Last Admin: 03/29/24 08:14 Dose: 1 mg Documented By: ASTRID Enoxaparin Sodium (Enoxaparin Sodium 40 Mg/0.4 Ml Syringe) 40 mg SUBCUT Q24H [facility] Last Admin: 03/30/24 07:43 Dose: 40 mg Documented By: YASMINE Escitalopram Oxalate (Escitalopram Oxalate 20 Mg Tablet) 20 mg PO BEDTIME [facility] Last Admin: 03/29/24 20:49 Dose: 20 mg Documented By: JUANA Famotidine (Famotidine 20 Mg Tablet) 20 mg PO BID [facility] Last Admin: 03/30/24 07:44 Dose: 20 mg Documented By: YASMINE Gabapentin (Gabapentin 300 Mg Capsule) 300 mg PO BID [facility] Last Admin: 03/30/24 07:44 Dose: 300 mg Documented By: YASMINE Glucose (Glucose Gel 15 Gm Gel..Gram.) 15 gm PO Q15M PRN; Protocol PRN Reason: per Hypoglycemia Standing Ord. Guaifenesin (Guaifenesin La 600 Mg Tab.Er.12h) 1,200 mg PO BID [facility] Stop: 03/31/24 21:01 Last Admin: 03/30/24 07:44 Dose: 1,200 mg Documented By: YASMINE Dextrose (D10) 250 mls @ 750 mls/hr IV Q15M PRN; Protocol PRN Reason: per Hypoglycemia Standing Ord. Azithromycin 500 mg/ Sodium (Chloride) 250 mls @ 125 mls/hr IV Q24H [facility] Last Infusion: 03/29/24 21:06 Dose: Infused Documented By: JUANA Ibuprofen (Ibuprofen 800 Mg Tablet) 800 mg PO Q8H PRN PRN Reason: Pain, Mild (Pain Scale 1-3) Last Admin: 03/28/24 12:59 Dose: 800 mg Documented By: ESTELANohemi Insulin Glargine (Insulin Glargine,Hum.Rec.Anlog 100 Unit/Ml 10 Ml Vial) 40 unit SUBCUT DAILY [facility] Insulin Human Lispro (Insulin Lispro 100 Unit/Ml 3 Ml Vial) 0 unit SUBCUT QIDACHS [facility]; Protocol Last Admin: 03/30/24 12:04 Dose: 12 unit Documented By: YASMINE Insulin Human Lispro (Insulin Lispro 100 Unit/Ml 3 Ml Vial) 6 unit SUBCUT QIDACHS [facility] Last Admin: 03/30/24 12:04 Dose: 6 unit Documented By: YASMINE Lidocaine (Lidocaine 4 % Patch Adh..Patch) 1 patch TRANSDERMA DAILY [facility]; Protocol Last Admin: 03/30/24 07:51 Dose: Not Given Documented By: YASMINE Non-Admin Reason: Patient Refused Lurasidone HCl (Lurasidone Hcl 20 Mg Tablet) 60 mg PO BEDTIME [facility] Last Admin: 03/29/24 20:49 Dose: 60 mg Documented By: JUANA Morphine Sulfate (Morphine Sulfate 2 Mg/Ml Cartridge) 4 mg IVPUSH Q4H PRN; Protocol PRN Reason: Pain, Severe (Pain Scale 7-10) Last Admin: 03/30/24 12:04 Dose: 4 mg Documented By: YASMINE Ondansetron HCl (Ondansetron Hcl 4 Mg/2 Ml Vial) 4 mg IVPUSH Q6H PRN PRN Reason: Nausea and Vomiting Last Admin: 03/26/24 21:42 Dose: 4 mg Documented By: ASAD Oxcarbazepine (Oxcarbazepine 300 Mg Tablet) 300 mg PO BID [facility] Last Admin: 03/30/24 07:44 Dose: 300 mg Documented By: YASMINE Oxycodone HCl (Oxycodone Hcl Er 10 Mg Tab.Er.12h) 10 mg PO BID PRN PRN Reason: Pain, Moderate(Pain Scale 4-6) Sodium Chloride (0.9 % Sodium Chloride Flush 3 Ml Syringe) 3 ml IVFLUSH QSHIFT [facility] Last Admin: 03/30/24 07:42 Dose: 3 ml Documented By: YASMINE Labs 03/29/24 06:30 03/29/24 06:30 Labs: Laboratory Results - last 24 hr 03/29/24 03/29/24 03/30/24 15:23 20:36 07:16 POC Glucose 227 H 293 H 384 H* 03/30/24 11:29 POC Glucose 430 H* Assessment and Plan (1) Acute respiratory failure with hypoxia and hypercapnia: Status: Acute Plan This is a 53 yo F with history of trachesotomy, chronic resp failure with hypoxia, IDDM, obesity and asthma who presents to the ED with shortness of breath, transferred to ICU for increased lethargy but did not require NIV, transferred back to medical floor 03/28 Acute metabolic encephalopathy due to elevated CO2 encephalopathy, lethargiy and elevated CO2 necessitating brief stay in the ICU but did not require any NIV Transferred back to med tele 03/28 Acute on chronic resp failure with hypoxia,chronic hypercarbic resp failure due to acute asthma excerbation due to RSV infection continue CO2 retainer protocol wean solu medrol to po prednisone continue scheduled + PRN nebs trach care blood cultures negative azithromycin last day 03/31 Uncontrolled DM2 with hyperglycemia remains difficult to control - likely worsened by steroids Hba1c 11.2 lantus further increased to 40u; continue pre-meal insulin 6u + sliding scale glipizide and metformin on hold continue diabetic diet History of PE previously on Eliquis>do not see any on recent claim history Mood disorder continue home meds; gabapentin Morbid Obesity Discussed importance of weight management as this may be contributing to worsening of other comorbidities Full Code DVT pptx - Lovenox reason for continued hospitalization: pt with still o2 requirement and diffuse wheezing -- increasing steroid dose, not ready for oral transition yet Quality Stroke Does the patient have a stroke diagnosis?: No VTE Prior VTE?: No VTE Risk Level:: Medical - moderate - high VTE Device Contraindication: N/A - Device Ordered VTE Drug Contraindication: N/A - Med Ordered
--- NOTE | 2024-03-30 14:23 | P.CDIM_ITS ---
PROVIDER RESPONSE TEXT: To clarify, the appropriate diagnosis supported by the clinical indicators: Metabolic QUERY TEXT: PHYSICIAN'S DOCUMENTATION REQUEST Date of Query: 03/30/2024 08:55 AM EST Patient Name: Anna Marie Black Admit Date: 03/26/2024 Dear Danika Vegas PA, A review of the medical record indicates additional documentation may be needed. Please review below and update the documentation accordingly. Clinical Indicators: VBG pCO2 61 hypercapnia increased lethargy Acute encephalopathy Based on the above, please further specify, in the Progress Notes, the known or suspected type of the documented encephalopathy: Metabolic Septic Toxic Toxic metabolic Hypertensive Anoxic Alcoholic Hepatic (reported as hepatic failure and needs further specificity as to acute, subacute, or chronic) Due to a specified condition (such as UTI, hyponatremia, CVA, etc.) Other (explain) Clinically unable to determine (explain) Thank you, Olga Toro RN Use of terms such as suspected, likely, concern for, or probable (associated with a specific diagnosi s that is being evaluated, monitored, or treated as if it exists) are acceptable and can be coded in the inpatient se tting, when documented at the time of discharge. Please use your independent medical judgment in providing your response. THIS QUERY IS PART OF THE PERMANENT MEDICAL RECORD
[2024-03-30 16:01] LABS: Glucose, Whole Blood 253 mg/dL (60-115)
[2024-03-30] MEDS: Morphine Sulfate 2 MG/ML CARTRIDGE IVPUSH ×2 (16:30→21:49)
[2024-03-30] MEDS: Azithromycin 500 MG in 0.9 % Sodium Chloride 250 ML 125 MG IV (18:13)
[2024-03-30 20:32] LABS: Glucose, Whole Blood 344 mg/dL (60-115)
[2024-03-30] MEDS: Lurasidone HCl 20 MG TABLET 60 MG PO (21:43)
[2024-03-30] MEDS: Atorvastatin Calcium 10 MG TABLET PO (21:43)
[2024-03-30] MEDS: Escitalopram Oxalate 20 MG TABLET PO (21:43)
[2024-03-31 04:00] VITALS: BP 145/74; PULSE 88; RESP 18; TEMP 36.8; O2SAT 94
[2024-03-31 05:40] VITALS: BMI 40.8
[2024-03-31] MEDS: Morphine Sulfate 2 MG/ML CARTRIDGE IVPUSH (06:42)
[2024-03-31 07:24] VITALS: BP 135/74; PULSE 64; RESP 18; TEMP 36.2; O2SAT 100
[2024-03-31 07:37] LABS: Glucose, Whole Blood 109 mg/dL (60-115)
[2024-03-31] MEDS: guaiFENesin LA 600 MG TAB.ER.12H 1200 MG PO (08:47)
[2024-03-31] MEDS: OXcarbazepine 300 MG TABLET PO (08:48)
[2024-03-31] MEDS: Famotidine 20 MG TABLET PO (08:48)
[2024-03-31] MEDS: Gabapentin 300 MG CAPSULE PO (08:48)
[2024-03-31] MEDS: 0.9 % Sodium Chloride Flush 3 ML SYRINGE IVFLUSH (08:50)
--- NOTE | 2024-03-31 08:53 | P.DS_ITS ---
DS: Providers Provider Date of Service: 03/31/24 Date of admission: 03/25/24 20:14 Date of discharge: 03/31/24 Primary care physician: Megan Cummings MD DS: Diagnosis Discharge Diagnosis (1) Acute respiratory failure with hypoxia and hypercapnia: Status: Acute DS: Summary Hospital Course Hospital Course: History and physical as per admitting provider. Anna Marie Black is a 53 years old with past medical history significant for chronic respiratory failure on home oxygen as needed, status post tracheostomy, morbid obesity, type 2 diabetes mellitus on insulin, cardiac arrest, hyperlipidemia, hypertension, asthma on prednisone and bipolar disorder presents to the emergency department complaining of shortness on breath and back pain. She also has been coughing, wheezing and generalized weakness. Reported some chest tightness. Did not report any acute gastrointestinal or genitourinary symptoms. In the ED, she was found to have tachypnea and tachycardia. There is no fever or hypotension. She is currently requiring 4 L/min supplemental oxygen via nasal cannula and satting at 95%. Blood workup showed no leukocytosis. Hemoglobin is 12.1 and platelets are normal. Potassium is 5.4 and CO2 is 31. Renal function is at baseline, creatinine 1.24 BUN 25. Glucose 526 and lactic acid is increasing 2.7--> 3.4. Troponin is negative. BNP is pending. Viral testing is positive for RSV. CXR is negative. ECG showed normal sinus rhythm without ischemic changes, HR 87 bpm. ED tx: Insulin 8 units IV, NS 3 L bolus, ceftriaxone 1 g IV, ceftriaxone 500 mg p.o., Dilaudid 0.5 mg IV Acute metabolic encephalopathy due to elevated CO2, encephalopathy, lethargiy and elevated CO2 necessitating brief stay in the ICU but did not require any NIV, Transferred back to [facility] 03/28 Acute on chronic resp failure with hypoxia,chronic hypercarbic resp failure, due to acute asthma excerbation due to RSV infection, weaned steroids, treated with scheduled + PRN nebs trach care . blood cultures negative . completed treatement with Azithromycin Uncontrolled DM2 with hyperglycemia Hba1c 11.2, lantus further increased to 40u; treated with pre-meal insulin 6u + sliding scale, continue glipizide and metformin , continue diabetic diet History of PE previously on Eliquis>do not see any on recent claim history Mood disorder continue home meds; gabapentin Morbid Obesity Discussed importance of weight management as this may be contributing to worsening of other comorbidities Time Attestation Discharge Coordination Time (in mins): 40 Quality: Safe Use of Opioids Does Pt have an Active Cancer Diagnosis on the Problem List?: No Quality: Stroke Does the patient have a stroke diagnosis?: No Physical Exam Vital Signs: Vital Signs: Last Vital Signs Temp 97.2 F 03/31/24 07:24 Pulse 64 03/31/24 07:24 Resp 18 03/31/24 07:24 BP 135/74 03/31/24 07:24 Pulse Ox 100 03/31/24 07:24 O2 Del Method Nasal Cannula 03/31/24 07:24 O2 Flow Rate 4 03/31/24 07:24 FiO2 30 03/27/24 23:00 Oxygen Flow Rate 4 03/25/24 16:39 BMI result Body Mass Index 40.8 Appearing in no acute distress head is normocephalic atraumatic eyes pupils are PERRLA sclera is anicteric mouth throat mucous membranes are intact and moist neck is supple no lymphadenopathy, no JVD noted lung sounds are clear to auscultation heart regular rate rhythm, clear S1, S2 positive bowel sounds, abdomen is soft, nontender neuro patient is alert x3, no focal deficits DS: Data Data Completed and Pending Completed studies during hospitalization [Text1]: Procedures Dilation of Left Ureter with Intraluminal Device, Via Natural or Artificial Opening Endoscopic (06/11/21) Fluoroscopy of Left Kidney, Ureter and Bladder (06/11/21) Labs on day of discharge: Laboratory Results - last 24 hr 03/30/24 03/30/24 03/30/24 11:29 15:57 20:25 POC Glucose 430 H* 253 H 344 H 03/31/24 07:28 POC Glucose 109 Discharge Plan Discharge Anticipated Discharge Date/Time: 03/31/24 08:46 Patient Disposition: Home, Self-Care Discharge Diagnosis: Acute metabolic encephalopathy secondary to hypercarbia Acute on chronic respiratory failure with hypoxia and chronic hypercarbia Uncontrolled diabetes mellitus type 2 with hyperglycemia Referrals: Megan Mosqueda MD [Primary Care Provider] - 1 Week Discharge Medications: Continued insulin glargine [Lantus Solostar U-100 Insulin] 100 unit/mL (3 mL) insulin pen 20 unit subcut DAILY diphenhydramine HCl [Benadryl] 25 mg Capsule 50 mg PO DAILY PRN (Reason: Allergic Symptoms) ibuprofen 200 mg Tablet 200 mg PO Q8H PRN (Reason: Pain) atorvastatin 10 mg tablet 10 mg PO BEDTIME clonazepam 1 mg tablet 1 mg PO BID PRN (Reason: Anxiety) oxcarbazepine 300 mg tablet 300 mg PO BID famotidine 20 mg tablet 20 mg PO BID trazodone 150 mg tablet 150 mg PO BEDTIME PRN (Reason: Sleep) albuterol sulfate [Ventolin HFA] 90 mcg/actuation HFA aerosol inhaler 2 puff inhalation Q4H PRN (Reason: wheezing) fluticasone propionate 50 mcg/actuation spray,suspension 1 spray intranasal DAILY Rx Instructions: INHALE IN BOTH NOSTRILS metformin 500 mg tablet extended release 24 hr 1,000 mg PO BID glipizide 5 mg tablet 5 mg PO DAILY insulin lispro 100 unit/mL insulin pen 1 sliding scale dose subcut TIDAC escitalopram oxalate 20 mg tablet 20 mg PO BEDTIME lurasidone 60 mg tablet 60 mg PO BEDTIME promethazine 25 mg tablet 25 mg PO DAILY PRN (Reason: nausea) gabapentin 300 mg capsule 300 mg PO BID Dulera 200-5 mcg/actuation HFA aerosol inhaler 2 puff inhalation BID Discontinued cefdinir 300 mg capsule 300 mg PO BID Qty: 20 0RF Rx Instructions: end date 04/02/24 prednisone 20 mg tablet 40 mg PO DAILY Qty: 10 0RF Rx Instructions: End date 03/27/24 Discharge Orders: Discharge Order (Routine); Ordered 03/31/24 Ordered By: Denise Barnes Diet: Advance to usual diet Activity on Discharge: As tolerated Stand Alone Forms: Patient Portal Discharge page Print Language: Lao Care Plan Goals: Returned to baseline health resume normal activities following recovery. Health Concerns: Acute metabolic encephalopathy secondary to hypercarbia Acute on chronic respiratory failure with hypoxia and chronic hypercarbia Uncontrolled diabetes mellitus type 2 with hyperglycemia Plan of Treatment: Follow-up with primary care provider as needed Take all medications as prescribed Assessment: See discharge summary
--- NOTE | 2024-03-31 09:09 | MHC.CM.PN ---
Patient has been medically cleared for dc to home today, self care.
--- NOTE | 2024-03-31 10:57 | MHC.CM.PN ---
Patient has been medically cleared for dc to home today, self care. Per Patient's request, has arranged for a [facility] to transport to home. Both Patient and her /Casimiro @ listed # are aware of and in agreement with the dc plan(they have confirmed the home address of [address] in [place]).
== END 2024-03-31 12:30 | disposition home or self-care (01) | DRG 141 ==
LOC: HO.ED 19:34 → HO.EDOVER 03-26 02:50 → HO.IMC 03-27 13:00 → HO.ICU 03-27 21:46 → HO.IMC 03-28 11:21
PROVIDERS: Emergency Medicine; Family Medicine; Internal Medicine Critical Care Medicine; Physician Assistant Medical; Registered Nurse Community Health; Student in an Organized Health Care Education/Training Program; Admitting Provider Internal Medicine; Emergency Provider Emergency Medicine Emergency Medical Services; PCP Internal Medicine; Visit Provider Nurse Practitioner Acute Care
DX: J45.41 Moderate persistent asthma with (acute) exacerbation (principal); J96.21 Acute and chronic respiratory failure with hypoxia; G93.41 Metabolic encephalopathy; B97.4 Respiratory syncytial virus as the cause of diseases classified elsewhere; E11.65 Type 2 diabetes mellitus with hyperglycemia; J96.22 Acute and chronic respiratory failure with hypercapnia; E78.5 Hyperlipidemia, unspecified; E87.4 Mixed disorder of acid-base balance; F39 Unspecified mood [affective] disorder; E66.01 Morbid (severe) obesity due to excess calories; Z68.41 Body mass index [BMI] 40.0-44.9, adult; Z20.822 Contact with and (suspected) exposure to COVID-19; Z86.74 Personal history of sudden cardiac arrest; Z93.0 Tracheostomy status; Z86.711 Personal history of pulmonary embolism; Z99.81 Dependence on supplemental oxygen; Z79.4 Long term (current) use of insulin; Z79.84 Long term (current) use of oral hypoglycemic drugs; Z79.899 Other long term (current) drug therapy
CPT/HCPCS: 0241U; 36415; 36600; 71045; 80048; 82040; 82803; 82947; 83036; 83605; 83735; 83880; 84100; 84484; 85025; 93005; 94640; 99285; J0456; J0696; J1171; J1650; J1940; J2270; J2405; J2919

== ENCOUNTER → 2024-03-25 17:29 | Outpatient (BNV) | payer OTHER, SELFPAY | PROVIDERS: Admitting Provider Internal Medicine; Emergency Provider Emergency Medicine Emergency Medical Services; PCP Internal Medicine; Visit Provider Internal Medicine Cardiovascular Disease | DX: R06.02 Shortness of breath (principal) | CPT/HCPCS: 93010 ==

== ENCOUNTER → 2024-03-25 17:29 | Outpatient (BNV) | payer OTHER, SELFPAY | PROVIDERS: Emergency Provider Emergency Medicine Emergency Medical Services; PCP Internal Medicine; Visit Provider Radiology Diagnostic Radiology | DX: R06.02 Shortness of breath (principal) | CPT/HCPCS: 71045 ==

== ENCOUNTER → 2024-03-25 20:14 | Outpatient (BNV) | payer OTHER, SELFPAY | PROVIDERS: Admitting Provider Internal Medicine; Emergency Provider Emergency Medicine Emergency Medical Services; PCP Internal Medicine; Visit Provider Internal Medicine | DX: J96.01 Acute respiratory failure with hypoxia (principal); J96.02 Acute respiratory failure with hypercapnia | CPT/HCPCS: 99223; 99232; 99233; 99499 ==

== ENCOUNTER → 2024-03-25 20:14 | Outpatient (BNV) | payer OTHER, SELFPAY | PROVIDERS: Admitting Provider Internal Medicine; Emergency Provider Emergency Medicine Emergency Medical Services; PCP Internal Medicine; Visit Provider Registered Nurse Community Health | DX: J96.01 Acute respiratory failure with hypoxia (principal); J96.02 Acute respiratory failure with hypercapnia; E11.65 Type 2 diabetes mellitus with hyperglycemia; B33.8 Other specified viral diseases; Z93.0 Tracheostomy status; J96.20 Acute and chronic respiratory failure, unspecified whether with hypoxia or hypercapnia; J45.901 Unspecified asthma with (acute) exacerbation; J18.9 Pneumonia, unspecified organism | CPT/HCPCS: 99223; 99232 ==

== ENCOUNTER 2024-05-30 22:55 | Inpatient (IN) | payer OTHER, SELFPAY ==
--- NOTE | ~2024-05-30 | CT_ITS ---
CLINICAL HISTORY: pain, history of obstruction, not passing gas CT abdomen and pelvis with contrast Comparison: CT of the abdomen and pelvis Findings: Mild bibasilar atelectasis and/or pneumonitis. Trace left pleural effusion. Redemonstration of the ventral hernia contains stomach, small intestine, large intestine, in the mesentery. Dilatation of multiple small bowel loops concerning for small bowel obstruction with small bowel loops measuring up to 3.3 cm. Enteric contrast is proximal to these dilated loops of small intestine. Interloop edema is multifocal. Transition point noted in the midabdomen. The appendix is not definitively seen. No new or suspicious features of cystic lesions in the kidneys. Filtered contrast could obscure small stones. 2 mm nonobstructing nephrolithiasis suggested in the anterior portion of the left kidney. No hydronephrosis. The adrenal glands are normal. The spleen is nonenlarged. Steatotic change of the liver is noted. Gallbladder is absent. No significant change in small mesenteric and periaortic lymph nodes. No free intraperitoneal air. No drainable abscess by CT. The uterus is anteverted, with intrauterine device in place. Left dorsal calcification likely small fibroid. No adnexal soft tissue mass by CT. Mild deformities of the pelvis appear old/chronic. Degenerative changes include the hips, SI joints, and spine, with multifocal facet arthropathy. Adjacent segment change at L3-L4 with mild retrolisthesis, disc bulge, and facet arthropathy by CT. No definite hardware loosening or intervertebral disc displacement at L4-L5. Inferior vena cava filters are redemonstrated. IMPRESSION: 1. Small-bowel obstruction with interloop edema and transition point in the midabdomen. 2. Redemonstration of the large ventral hernia, as detailed above. This document has been electronically signed by: Roby Levine MD on 05/31/2024 03:07:24
[2024-05-30 23:08] VITALS: BP 134/79; PULSE 92; O2SAT 97
[2024-05-30 23:19] VITALS: BP 137/89; PULSE 96; RESP 16; TEMP 36.8; O2SAT 95; BMI 37.2
[2024-05-30 23:23] VITALS: BP 137/89; PULSE 96; RESP 16; TEMP 36.8; O2SAT 95
[2024-05-30 23:24] LABS: Glucose, Whole Blood 396 mg/dL (60-115)
--- NOTE | 2024-05-30 23:29 | ECG_ITS ---
Test Reason : abd pain Blood Pressure : */* mmHG Vent. Rate : 94 BPM Atrial Rate : 94 BPM P-R Int : 160 ms QRS Dur : 84 ms QT Int : 374 ms P-R-T Axes : 55 -18 42 degrees QTcB Int : 467 ms Normal sinus rhythm Possible Anterior infarct , age undetermined Abnormal ECG When compared with ECG of 25-Mar-2024 18:10, No significant change was found Referred By: Generic ED Physician Electronically Signed By: Skip Ledesma
[2024-05-31] VITALS (12 sets, daily range): BP systolic 117–180; BP diastolic 70–98; PULSE 86–99; RESP 15–20; TEMP 36.6–37.2; O2SAT 92–97; BMI 41.8
[2024-05-31 00:09] LABS: MANUAL DIFF FLAG NO
[2024-05-31 00:11] LABS: Basophils Absolute Auto 0.1 X10*3/uL (0.0-0.2); Basophils Percent Auto 0.5 % (0-2); Eosinophils Absolute Auto 0.6 X10*3/uL (0.0-0.4); Eosinophils Percent Auto 5.6 % (0-4); Hematocrit 38.8 % (37.0-47.0); Imm Gran Abs Auto 0.04 X10*3/uL (0.00-0.03); Imm Gran Pct Auto 0.4 % (0.0-0.4); Lymphocytes Absolute Auto 1.4 X10*3/uL (1.2-4.9); Lymphocytes Percent Auto 12.7 % (20-40); Mean Corpuscular HGB Conc 33.5 g/dl (31.0-35.0); Mean Corpuscular Hemoglobin 27.3 pg (27.0-33.0); Mean Corpuscular Volume 81.3 fL (80.0-98.0); Mean Platelet Volume 9.5 fL (9.4-12.3); Monocytes Absolute Auto 0.6 X10*3/uL (0.1-1.2); Monocytes Percent Auto 5.3 % (2-11); Neutrophils Absolute Auto 8.2 x10*3/uL (2.0-8.3); Neutrophils Percent Auto 75.5 % (45-73); Platelet Count 367 X10*3/uL (160-400); Red Blood Count 4.77 X10*6/uL (4.20-5.50); Red Cell Distribution Width 13.3 % (11.0-16.0); White Blood Count 10.8 X10*3/uL (4.8-10.8)
--- NOTE | 2024-05-31 00:21 | ED.GENADULT ---
HPI - General Adult General Chief complaint: Abdominal Pain Stated complaint: abd pain, ?bowel obstruction Time Seen by Provider: 05/30/24 23:51 Source: patient, RN notes reviewed and old records reviewed Mode of arrival: EMS Limitations: no limitations History of Present Illness ED Provider: Kelby HPI narrative: 53-year-old female with past medical history significant for obesity hypoventilation syndrome, asthma, on 2-4 L via nasal cannula, morbid obesity, diabetes, pancreatitis presenting for evaluation of abdominal pain. The patient reports that she developed severe mid abdominal pain this afternoon. She did not eat anything today. She reports nausea without vomiting. She has a history of bowel obstruction and reports this feels similar. She reports that she was not passing flatus. Her pain is an 8/10 Denies any fevers, chills Related Data Home Medications ?Medication ?Instructions ?Recorded ?Confirmed albuterol sulfate 90 mcg/actuation 2 puff inhalation Q4H PRN wheezing 02/02/23 03/26/24 aerosol inhaler (Ventolin HFA) atorvastatin 10 mg tablet 10 mg PO BEDTIME 02/02/23 03/26/24 clonazepam 1 mg tablet 1 mg PO BID PRN Anxiety 02/02/23 03/26/24 escitalopram oxalate 20 mg tablet 20 mg PO BEDTIME 02/02/23 03/26/24 famotidine 20 mg tablet 20 mg PO BID 02/02/23 03/26/24 fluticasone propionate 50 1 spray intranasal DAILY allergies 02/02/23 03/26/24 mcg/actuation nasal spray,suspension glipizide 5 mg tablet 5 mg PO DAILY 02/02/23 03/26/24 insulin lispro 100 unit/mL 1 sliding scale dose subcut TIDAC 02/02/23 03/26/24 subcutaneous pen lurasidone 60 mg tablet 60 mg PO BEDTIME 02/02/23 03/26/24 metformin 500 mg tablet,extended 1,000 mg PO BID 02/02/23 03/26/24 release 24 hr oxcarbazepine 300 mg tablet 300 mg PO BID 02/02/23 03/26/24 trazodone 150 mg tablet 150 mg PO BEDTIME PRN Sleep 02/02/23 03/26/24 insulin glargine 100 unit/mL (3 20 unit subcut DAILY 06/15/23 03/26/24 mL) subcutaneous pen (Lantus Solostar U-100 Insulin) diphenhydramine HCl 25 mg capsule 50 mg PO DAILY PRN Allergic 08/18/23 03/26/24 (Benadryl) Symptoms ibuprofen 200 mg tablet 200 mg PO Q8H PRN Pain 09/08/23 03/26/24 gabapentin 300 mg capsule 300 mg PO BID 03/26/24 03/26/24 mometasone-formoterol HFA 200 2 puff inhalation BID 03/26/24 03/26/24 mcg-5 mcg/actuation aerosol inhaler (Dulera) promethazine 25 mg tablet 25 mg PO DAILY PRN nausea 03/26/24 03/26/24 Allergies Allergy/AdvReac Type Severity Reaction Status Date / Time pantoprazole Allergy Mild Redness of Verified 05/30/24 23:21 Skin Review of Systems Constitutional: Constitutional: Denies body ache(s), Denies chills and Denies fever(s) ENT: Denies vertigo Cardiovascular: Cardiovascular: Denies chest pain and Denies dyspnea Respiratory: Respiratory: Denies cough and Denies dyspnea Gastrointestinal: Gastrointestinal: Reports abdominal pain, Reports nausea and Denies vomiting Musculoskeletal: Musculoskeletal: Denies back pain Integumentary/Breasts: Skin/Breast: Denies rash Neurologic: Denies vertigo PMFSH Past Medical History Medical History Partial small bowel obstruction Tracheostomy dependent History of cardiac arrest Wound drainage Takotsubo cardiomyopathy Kidney stones UTI (urinary tract infection) Bipolar 1 disorder Diabetes Asthma Substance abuse Surgical History S/P ureteral stent placement H/O exploratory laparotomy S/P cholecystectomy Family History Family History Mother No pertinent family history Father No pertinent family history Social History Social History Household Members: Spouse Household Members Other:: 1 Housing: Apartment Do you presently have visiting nurse or other home services: No Alcohol intake: former Comment: stayed in ed Patient Tobacco Use Status: Never used Tobacco Smoked in Last 30 Days: No Second Hand Smoke Exposure: Yes Use of substances other than those prescribed or required for medical reasons: No Advance Directives: Yes Advance Directives on File: Yes Advance Directives Date on File: 02/04/23 Do you have a plan to hurt others: No Plan Patient : No service: No Current occupational status: disabled Physical Exam ED Vital Signs: Vital Signs - 24 hr 05/30/24 23:19 05/30/24 23:23 05/31/24 00:25 Temperature 98.3 F 98.3 F 98.7 F Pulse Rate 96 96 94 Respiratory Rate 16 16 15 Blood Pressure 137/89 137/89 148/88 H Pulse Oximetry 95 95 94 Oxygen Delivery Method Nasal Cannula Nasal Cannula Nasal Cannula Oxygen Flow Rate 2 2 05/31/24 01:51 05/31/24 02:06 05/31/24 02:09 Temperature 98.6 F 98.4 F Pulse Rate 96 97 Respiratory Rate 16 16 16 Blood Pressure 137/72 152/87 H Pulse Oximetry 95 Oxygen Delivery Method Nasal Cannula Oxygen Flow Rate 2 05/31/24 03:24 Temperature 98.8 F Pulse Rate 97 Respiratory Rate 16 Blood Pressure 167/92 H Pulse Oximetry 96 Oxygen Delivery Method Nasal Cannula Oxygen Flow Rate 2 BMI result Body Mass Index 37.2 Const General: healthy appearing, comfortable, no acute distress, alert and awake Nutritional Appearance: well nourished Orientation/consciousness: patient oriented x3 HENMT Head: Yes normocephalic and Yes atraumatic Neck Neck: Yes full ROM Resp Effort & Inspection: normal respiratory effort, able to speak in complete sentences and not labored Cardio Rate: regular rate Rhythm: regular rhythm GI Other: Very large midline surgical scar. Abdomen is obese and distended.. The patient has epigastric and periumbilical tenderness. The abdomen remained soft and there is no guarding Palpation (GI): Soft to palpation, not firm, Tenderness to palpation present (GI), no guarding and not rigid Skin General skin exam: elasticity normal Neuro General: patient oriented x3 Cranial nerves: Yes Bilaterally intact EOM present Cognition (Neuro): normal cognition Extrem Other: Moving all extremities well without any obvious deformities Course Reevaluation(s) Reevaluation #1: I treated her glucose with insulin and IV fluids, patient signed out to overnight attending, Dr Edwards pending imaging and disposition Time: 02:09 Reevaluation #2: DR. Edwards's NOTE: I assumed care for this patient at 02:00, patient with multiple surgeries and multiple history of small-bowel obstruction CT showed small bowel obstruction patient has no vomiting, just complaining of abdominal pain will controlled with Dilaudid, case discussed with Dr. Rai surgery on-call who will consult in the morning but admit the patient to the medical service. Hyperglycemia, no DKA, patient receiving IV fluids and insulin. UTI no sepsis or sirs criteria will start on ceftriaxone and IV fluids. Case discussed with Dr. Lira who accepted the patient to the medical service. Time: 04:14 Medications Administered Discontinued Medications Generic Name Dose Route Start Last Admin Trade Name Freq PRN Reason Stop Dose Admin Diatrizoate Meglum/Diatrizoate Sod 30 ml 05/31/24 01:42 05/31/24 01:44 Diatrizoate Meglumine, Sodium 30 Ml Solution PO 05/31/24 01:43 30 ml ONCE ONE Administration Hydromorphone HCl 1 mg 05/31/24 01:50 05/31/24 02:06 Hydromorphone Hcl 1 Mg/Ml Syringe IVPUSH 05/31/24 01:51 1 mg ONCE ONE Administration Protocol Hydromorphone HCl 2 mg 05/31/24 03:24 05/31/24 03:40 Hydromorphone Hcl 2 Mg/Ml Vial IVPUSH 05/31/24 03:25 2 mg ONCE ONE Administration Protocol Sodium Chloride 1,000 mls @ 999 mls/hr 05/31/24 00:15 05/31/24 00:39 Ns IV 05/31/24 01:15 999 mls/hr .Q1H1M RILEY Administration Insulin Human Regular 5 unit 05/31/24 00:44 05/31/24 01:25 Insulin Regular, Human 100 Unit/Ml 10 Ml Vial IVPUSH 05/31/24 00:45 5 unit ONCE ONE Administration Iohexol 98 ml 05/31/24 02:35 05/31/24 02:35 Iohexol 350 Mg/Ml 100 Ml Infus..Btl IV 05/31/24 02:36 98 ml ONCE ONE Administration Morphine Sulfate 4 mg 05/31/24 00:09 05/31/24 00:39 Morphine Sulfate 4 Mg/Ml Cartridge IVPUSH 05/31/24 00:10 4 mg ONCE ONE Administration Protocol Ondansetron HCl 4 mg 05/31/24 00:09 05/31/24 00:39 Ondansetron Hcl 4 Mg/2 Ml Vial IVPUSH 05/31/24 00:10 4 mg ONCE ONE Administration Medical Decision Making Medical Decision Making [facility] Narrative: 53-year-old female with complex past medical history presents for evaluation of abdominal pain. She reports a history of bowel obstruction reports this feels similar. Her vital signs are within normal limits. She is nontoxic appearing but does appear uncomfortable. Given her surgical history we will get an abdominal CT scan with oral contrast and IV contrast to evaluate for obstruction. Labs are pending at this time. Differential Diagnosis Differential Diagnoses: The differential diagnosis associated with the presentation includes Small bowel obstruction Constipation Ileus Peptic ulcer disease Pancreatitis Cholecystitis Cholelithiasis Admission/Observation Consideration of admission/observation: Escalation of care including admission/observation considered Lab Data 05/31/24 00:03 05/31/24 00:03 Labs: Lab Results 05/30/24 05/31/24 05/31/24 Range/Units 23:13 00:03 00:11 WBC 10.8 (4.8-10.8) X10*3/uL RBC 4.77 (4.20-5.50) X10*6/uL Hgb 13.0 (12.0-16.0) g/dl Hct 38.8 (37.0-47.0) % MCV 81.3 (80.0-98.0) fL MCH 27.3 (27.0-33.0) pg MCHC 33.5 (31.0-35.0) g/dl RDW 13.3 (11.0-16.0) % Plt Count 367 (160-400) X10*3/uL MPV 9.5 (9.4-12.3) fL Immature Gran % (Auto) 0.4 (0.0-0.4) % Neut % (Auto) 75.5 H (45-73) % Lymph % (Auto) 12.7 L (20-40) % [place] % (Auto) 5.3 (2-11) % Eos % (Auto) 5.6 H (0-4) % Baso % (Auto) 0.5 (0-2) % Lymph # (Auto) 1.4 (1.2-4.9) X10*3/uL [place] # (Auto) 0.6 (0.1-1.2) X10*3/uL Eos # (Auto) 0.6 H (0.0-0.4) X10*3/uL Baso # (Auto) 0.1 (0.0-0.2) X10*3/uL Abs Immat Gran (auto) 0.04 H (0.00-0.03) X10*3/uL Absolute Neuts (auto) 8.2 (2.0-8.3) x10*3/uL Absolute Nucleated RBC 0.000 (0.0-0.012) X10*3/uL Nucleated RBC % (auto) 0.0 (0.0-0.2) /100WBC Sodium 133 L (135-145) mmol/L Potassium 4.9 (3.3-5.1) mmol/L Chloride 95 L (96-108) mmol/L Carbon Dioxide 30 H (22-29) mmol/L Anion Gap 13 (12-20) BUN 16 (9-16) mg/dL Creatinine 1.08 (0.5-1.4) mg/dL Estim Creat Clear Calc 65.4 Estimated GFR 53 POC Glucose 396 H* (60-115) mg/dL Random Glucose 411 H* (60-115) mg/dL Lactic Acid 1.6 (0.5-2.0) mmol/L Calcium 8.9 (8.4-10.2) mg/dL Total Bilirubin 0.3 (0.0-1.0) mg/dL Direct Bilirubin 0.1 (0.0-0.5) mg/dL AST 15 (5-31) U/L ALT 24 (0-31) U/L Alkaline Phosphatase 227 H (39-117) U/L Total Protein 7.1 (6.5-8.0) g/dL Albumin 3.5 (3.5-5.0) g/dL Lipase 7 L (8-78) U/L Urine Color Urine Appearance Urine pH (5.0-9.0) Ur Specific [place] (1.005-1.025) Urine Protein (Neg-Trace) mg/dL Urine Glucose (UA) (Negative) mg/dL Urine Ketones (Negative) mg/dL Urine Blood (Negative) Urine Nitrite (Negative) Ur Leukocyte Esterase (Negative) Urine RBC (0-2) /HPF Urine WBC (0-5) /HPF Ur Squamous Epith Cells (0-2) /HPF Urine Bacteria (None Seen) Hyaline Casts (0-2) /LPF 05/31/24 Range/Units 01:40 WBC (4.8-10.8) X10*3/uL RBC (4.20-5.50) X10*6/uL Hgb (12.0-16.0) g/dl Hct (37.0-47.0) % MCV (80.0-98.0) fL MCH (27.0-33.0) pg MCHC (31.0-35.0) g/dl RDW (11.0-16.0) % Plt Count (160-400) X10*3/uL MPV (9.4-12.3) fL Immature Gran % (Auto) (0.0-0.4) % Neut % (Auto) (45-73) % Lymph % (Auto) (20-40) % [place] % (Auto) (2-11) % Eos % (Auto) (0-4) % Baso % (Auto) (0-2) % Lymph # (Auto) (1.2-4.9) X10*3/uL [place] # (Auto) (0.1-1.2) X10*3/uL Eos # (Auto) (0.0-0.4) X10*3/uL Baso # (Auto) (0.0-0.2) X10*3/uL Abs Immat Gran (auto) (0.00-0.03) X10*3/uL Absolute Neuts (auto) (2.0-8.3) x10*3/uL Absolute Nucleated RBC (0.0-0.012) X10*3/uL Nucleated RBC % (auto) (0.0-0.2) /100WBC Sodium (135-145) mmol/L Potassium (3.3-5.1) mmol/L Chloride (96-108) mmol/L Carbon Dioxide (22-29) mmol/L Anion Gap (12-20) BUN (9-16) mg/dL Creatinine (0.5-1.4) mg/dL Estim Creat Clear Calc Estimated GFR POC Glucose (60-115) mg/dL Random Glucose (60-115) mg/dL Lactic Acid (0.5-2.0) mmol/L Calcium (8.4-10.2) mg/dL Total Bilirubin (0.0-1.0) mg/dL Direct Bilirubin (0.0-0.5) mg/dL AST (5-31) U/L ALT (0-31) U/L Alkaline Phosphatase (39-117) U/L Total Protein (6.5-8.0) g/dL Albumin (3.5-5.0) g/dL Lipase (8-78) U/L Urine Color Yellow Urine Appearance Clear Urine pH 5.5 (5.0-9.0) Ur Specific [place] 1.025 (1.005-1.025) Urine Protein Trace (Neg-Trace) mg/dL Urine Glucose (UA) >=1000 H (Negative) mg/dL Urine Ketones Negative (Negative) mg/dL Urine Blood Negative (Negative) Urine Nitrite Negative (Negative) Ur Leukocyte Esterase Trace H (Negative) Urine RBC 0-2 (0-2) /HPF Urine WBC 21-50 H (0-5) /HPF Ur Squamous Epith Cells 3-5 (0-2) /HPF Urine Bacteria 1+ (None Seen) Hyaline Casts 0-2 (0-2) /LPF Discharge Plan Discharge Clinical Impression: Abdominal pain, Hyperglycemia, SBO (small bowel obstruction), UTI (urinary tract infection) Patient Disposition: Admitted As Inpatient Print Language: Singaporean
--- NOTE | 2024-05-31 00:26 | MHC.EDTECH ---
Patient was biba ,vitals taken ,blood drawn and sent to lab ,ekg taken and was read by Provider ,Call aaron within Pt reach .
[2024-05-31 00:29] LABS: Lactic Acid 1.6 mmol/L (0.5-2.0)
[2024-05-31 00:38] LABS: Alanine Aminotransferase 24 U/L (0-31); Albumin Level 3.5 g/dL (3.5-5.0); Alkaline Phosphatase 227 U/L (39-117); Anion Gap 13 (12-20); Aspartate Amino Transferase 15 U/L (5-31); Bilirubin Direct 0.1 mg/dL (0.0-0.5); Bilirubin Total 0.3 mg/dL (0.0-1.0); Blood Urea Nitrogen 16 mg/dL (9-16); Calcium 8.9 mg/dL (8.4-10.2); Carbon Dioxide 30 mmol/L (22-29); Chloride 95 mmol/L (96-108); Creatinine Clr Calc Pharmacy 65.4; Estimated Glomerular Filt Rate 53; Glucose Random 411 mg/dL (60-115); Lipase 7 U/L (8-78); Potassium 4.9 mmol/L (3.3-5.1); Sodium 133 mmol/L (135-145); Total Protein 7.1 g/dL (6.5-8.0)
[2024-05-31] MEDS: Morphine Sulfate 4 MG/ML CARTRIDGE IVPUSH (00:39)
[2024-05-31] MEDS: 0.9 % Sodium Chloride 1,000 ML 999 ML IV (00:39)
[2024-05-31] MEDS: ondansetron HCL 4 MG/2 ML VIAL IVPUSH ×2 (00:39→08:10)
--- NOTE | 2024-05-31 00:39 | PC.NURSE ---
computer issues in room 20. Unable to scan barcode or bracelet .5 rights followed
[2024-05-31] MEDS: Insulin Regular, Human 100 UNIT/ML 10 ML VIAL IVPUSH ×2 (01:25→04:58)
--- NOTE | 2024-05-31 01:42 | MHC.EDTECH ---
Patient walk to bathroom ,void urine sample collected and sent to lab ,0200 vitals taken ,Provider Yoandy and RN Cheryl is aware that Patient has 8 out of 10 Pain .
[2024-05-31] MEDS: Diatrizoate Meglumine, Sodium 30 ML SOLUTION PO (01:44)
[2024-05-31 01:50] LABS: Appearance Urine Clear; Color Urine Yellow; Glucose Urine UA >=1000 mg/dL (Negative); Leukocyte Esterase Urine Trace (Negative); Nitrite Urine Negative (Negative); PH 5.5 (5.0-9.0); Specific Gravity - Urine 1.025 (1.005-1.025); UMIC TRIGGER UACC YES; Urine Blood Negative (Negative); Urine Ketones Negative (Negative); Urine Protein Trace mg/dL (Neg-Trace)
[2024-05-31 01:53] LABS: Bacteria Urine 1+ (None Seen); Hyaline Casts Urine 0-2 /LPF (0-2); RBC Urine 0-2 /HPF (0-2); UACC Culture Trigger YES; WBC Urine 21-50 /HPF (0-5)
[2024-05-31] MEDS: HYDROmorphone HCl 1 MG/ML SYRINGE IVPUSH (02:06)
[2024-05-31] MEDS: iohexoL 350 MG/ML 100 ML INFUS..BTL 98 ML IV (02:35)
[2024-05-31] MEDS: HYDROmorphone HCl 2 MG/ML VIAL IVPUSH (03:40)
--- NOTE | 2024-05-31 03:58 | PC.NURSE ---
NG tube attempted- not successful. PT pushing head back causing coiling of tubing. NG tube removed. PT refusing reattempt. provider notified.
--- NOTE | 2024-05-31 04:53 | MHC.EDTECH ---
Patient blood sugar drawn and sent to lab .
[2024-05-31] MEDS: cefTRIAXone sodium 1 GM VIAL IVPUSH (04:58)
[2024-05-31 05:03] LABS: Glucose, Whole Blood 369 mg/dL (60-115)
--- NOTE | 2024-05-31 05:41 | PM.IMHP ---
History of Present Illness Date of Service: 05/31/24 Attending physician on admission: Rosa Lira Chief Complaint: mid abd pain Patient is a 53-year-old female with a past medical history significant for type 2 diabetes on insulin, history necrotizing pancreatitis, history multiple abdominal surgeries, history SBO, obesity hypoventilation syndrome on O2 at home, mild intermittent asthma morbid obesity, presented to the ED due to periumbilical abdominal pain worsening throughout the day yesterday rating it a 9/10 sharp pain with associated nausea. She denies any vomiting. Last bowel movement is unknown and she reports she has been unable to pass gas. She also denies any urinary symptoms including frequency, urgency or dysuria. Review of Systems Constitutional: Constitutional: Denies body ache(s), Denies chills, Denies fatigue, Denies fever(s) and Denies headache(s) Eyes: Eyes: Denies change in vision and Denies photophobia ENT: Denies headache(s), Denies nasal congestion, Denies nasal discharge and Denies sore throat Cardiovascular: Cardiovascular: Denies chest pain, Denies rapid heart rate, Denies leg edema, Denies lightheadedness and Denies dyspnea Respiratory: Respiratory: Denies chest congestion, Denies cough, Denies dyspnea and Denies wheezing Gastrointestinal: Gastrointestinal: Reports abdominal pain, Denies melena, Denies hematochezia, Denies coffee ground emesis, Denies diarrhea, Reports nausea, Denies vomiting and Denies hematemesis Genitourinary: Genitourinary: Denies hematuria, Denies dysuria and Denies urinary urgency Musculoskeletal: Musculoskeletal: Denies myalgias Integumentary/Breasts: Skin/Breast: Denies rash Neurologic: Denies confusion and Denies headache(s) Psychiatric: Psychiatric: Denies confusion Endocrine: Endocrine: Denies fatigue Hematologic/Lymphatic: Hematologic/Lymphatic: Denies easy bleeding and Denies easy bruising Allergic/Immunologic: Allergic/Immunologic: Denies wheezing [facility] Medical History Partial small bowel obstruction Tracheostomy dependent History of cardiac arrest Wound drainage Takotsubo cardiomyopathy Kidney stones UTI (urinary tract infection) Bipolar 1 disorder Diabetes Asthma Substance abuse Functional capacity: independent ambulation Family History Mother No pertinent family history Father No pertinent family history Surgical History S/P ureteral stent placement H/O exploratory laparotomy S/P cholecystectomy Social History Household Members: Spouse Household Members Other:: 1 Housing: Apartment Do you presently have visiting nurse or other home services: No Alcohol intake: former Comment: stayed in ed Patient Tobacco Use Status: Never used Tobacco Smoked in Last 30 Days: No Second Hand Smoke Exposure: Yes Use of substances other than those prescribed or required for medical reasons: No Advance Directives: Yes Advance Directives on File: Yes Advance Directives Date on File: 02/04/23 Do you have a plan to hurt others: No Plan Patient : No service: No Current occupational status: disabled Narrative: no smoking, etoh or drug use Meds Allergies Allergy/AdvReac Type Severity Reaction Status Date / Time pantoprazole Allergy Mild Redness of Verified 05/30/24 23:21 Skin Active Medications: Current Medications Acetaminophen (Acetaminophen 325 Mg Tablet) 650 mg PO Q6H PRN PRN Reason: Pain, Mild 1-3,fever,headache Calcium Carbonate (Calcium Carbonate 750 Mg Tab.Chew) 750 mg PO Q4H PRN PRN Reason: Heartburn Dextrose (Dextrose 50 % 25 Gm/50 Ml Syringe) 25 gm IVPUSH Q15M PRN; Protocol PRN Reason: per Hypoglycemia Standing Ord. Glucose (Glucose Gel 15 Gm Gel..Gram.) 15 gm PO Q15M PRN; Protocol PRN Reason: per Hypoglycemia Standing Ord. Insulin Human Lispro (Insulin Lispro 100 Unit/Ml 3 Ml Vial) 0 unit SUBCUT Q6H RILEY; Protocol Magnesium Hydroxide (Milk Of Magnesia 30 Ml Oral.Susp) 30 ml PO DAILY PRN PRN Reason: Constipation Melatonin (Melatonin 3 Mg Tablet) 6 mg PO BEDTIME PRN PRN Reason: Insomnia Ondansetron HCl (Ondansetron Hcl 4 Mg/2 Ml Vial) 4 mg IVPUSH Q8H PRN PRN Reason: Nausea and Vomiting Sodium Chloride (0.9 % Sodium Chloride Flush 3 Ml Syringe) 3 ml IVFLUSH [facility] Home Medications ?Medication ?Instructions ?Recorded ?Confirmed ?Last Taken ?Type albuterol sulfate 90 mcg/actuation 2 puff inhalation Q4H PRN wheezing 02/02/23 03/26/24 09/07/23 20:00 History aerosol inhaler (Ventolin HFA) atorvastatin 10 mg tablet 10 mg PO BEDTIME 02/02/23 03/26/24 03/25/24 History clonazepam 1 mg tablet 1 mg PO BID PRN Anxiety 02/02/23 03/26/24 09/07/23 20:00 History escitalopram oxalate 20 mg tablet 20 mg PO BEDTIME 02/02/23 03/26/24 03/25/24 History famotidine 20 mg tablet 20 mg PO BID 02/02/23 03/26/24 03/25/24 History fluticasone propionate 50 1 spray intranasal DAILY allergies 02/02/23 03/26/24 03/25/24 History mcg/actuation nasal spray,suspension glipizide 5 mg tablet 5 mg PO DAILY 02/02/23 03/26/24 03/25/24 History insulin lispro 100 unit/mL 1 sliding scale dose subcut TIDAC 02/02/23 03/26/24 03/25/24 History subcutaneous pen lurasidone 60 mg tablet 60 mg PO BEDTIME 02/02/23 03/26/24 03/25/24 History metformin 500 mg tablet,extended 1,000 mg PO BID 02/02/23 03/26/24 03/25/24 History release 24 hr oxcarbazepine 300 mg tablet 300 mg PO BID 02/02/23 03/26/24 03/25/24 History trazodone 150 mg tablet 150 mg PO BEDTIME PRN Sleep 02/02/23 03/26/24 09/07/23 20:00 History insulin glargine 100 unit/mL (3 20 unit subcut DAILY 06/15/23 03/26/24 03/25/24 History mL) subcutaneous pen (Lantus Solostar U-100 Insulin) diphenhydramine HCl 25 mg capsule 50 mg PO DAILY PRN Allergic 08/18/23 03/26/24 09/07/23 20:00 History (Benadryl) Symptoms ibuprofen 200 mg tablet 200 mg PO Q8H PRN Pain 09/08/23 03/26/24 Unknown History gabapentin 300 mg capsule 300 mg PO BID 03/26/24 03/26/24 03/25/24 History mometasone-formoterol HFA 200 2 puff inhalation BID 03/26/24 03/26/24 03/25/24 History mcg-5 mcg/actuation aerosol inhaler (Dulera) promethazine 25 mg tablet 25 mg PO DAILY PRN nausea 03/26/24 03/26/24 Unknown History Physical Exam Vital Signs and Narrative: Vital Signs: Last Vital Signs Temp 98.8 F 05/31/24 03:24 Pulse 97 05/31/24 03:24 Resp 16 05/31/24 03:24 BP 167/92 H 05/31/24 03:24 Pulse Ox 96 05/31/24 03:24 O2 Del Method Nasal Cannula 05/31/24 03:24 O2 Flow Rate 2 05/31/24 03:24 Oxygen Flow Rate 2 05/30/24 23:19 BMI result Body Mass Index 37.2 General: dozing off between questions, Oriented x3, no acute distress Resp: CTA bilaterally, tach in place CVS: S1, S2, RRR GI: +BS, generalized tenderness, mild distention Skin: Warm, dry Neuro: Cranial nerves II-XII grossly intact bilaterally. Motor grossly intact bilaterally Extremities: No LE edema Psych: Appropriate affect Const: General: No confusion Orientation/consciousness: No confusion Eyes: Direct Ophthalmoscopy: No photophobia Neuro: General: No confusion Results Labs 05/31/24 00:03 05/31/24 00:03 Labs: Laboratory Results - last 24 hr 05/30/24 05/31/24 05/31/24 23:13 00:03 00:11 MCV 81.3 MCH 27.3 MCHC 33.5 RDW 13.3 Plt Count 367 MPV 9.5 Immature Gran % (Auto) 0.4 Neut % (Auto) 75.5 H Lymph % (Auto) 12.7 L Wilkinson % (Auto) 5.3 Eos % (Auto) 5.6 H Baso % (Auto) 0.5 Lymph # (Auto) 1.4 Wilkinson # (Auto) 0.6 Eos # (Auto) 0.6 H Baso # (Auto) 0.1 Abs Immat Gran (auto) 0.04 H Absolute Neuts (auto) 8.2 Absolute Nucleated RBC 0.000 Nucleated RBC % (auto) 0.0 Anion Gap 13 Estim Creat Clear Calc 65.4 Estimated GFR 53 POC Glucose 396 H* Random Glucose 411 H* Lactic Acid 1.6 Calcium 8.9 Total Bilirubin 0.3 Direct Bilirubin 0.1 AST 15 ALT 24 Alkaline Phosphatase 227 H Total Protein 7.1 Albumin 3.5 Lipase 7 L Urine Color Urine Appearance Urine pH Ur Specific Moriah Urine Protein Urine Glucose (UA) Urine Ketones Urine Blood Urine Nitrite Ur Leukocyte Esterase Urine RBC Urine WBC Ur Squamous Epith Cells Urine Bacteria Hyaline Casts 05/31/24 05/31/24 01:40 03:48 MCV MCH MCHC RDW Plt Count MPV Immature Gran % (Auto) Neut % (Auto) Lymph % (Auto) Wilkinson % (Auto) Eos % (Auto) Baso % (Auto) Lymph # (Auto) Wilkinson # (Auto) Eos # (Auto) Baso # (Auto) Abs Immat Gran (auto) Absolute Neuts (auto) Absolute Nucleated RBC Nucleated RBC % (auto) Anion Gap Estim Creat Clear Calc Estimated GFR POC Glucose 369 H* Random Glucose Lactic Acid Calcium Total Bilirubin Direct Bilirubin AST ALT Alkaline Phosphatase Total Protein Albumin Lipase Urine Color Yellow Urine Appearance Clear Urine pH 5.5 Ur Specific Mor[place] 1.025 Urine Protein Trace Urine Glucose (UA) >=1000 H Urine Ketones Negative Urine Blood Negative Urine Nitrite Negative Ur Leukocyte Esterase Trace H Urine RBC 0-2 Urine WBC 21-50 H Ur Squamous Epith Cells 3-5 Urine Bacteria 1+ Hyaline Casts 0-2 Assessment and Plan (1) SBO (small bowel obstruction): Status: Acute (2) Hyperglycemia: Status: Acute (3) Morbid obesity: Status: Acute (4) Asymptomatic bacteriuria: Status: Acute Plan Patient is a 53-year-old female with a past medical history significant for type 2 diabetes on insulin, history necrotizing pancreatitis, history multiple abdominal surgeries, history SBO, obesity hypoventilation syndrome on O2 at home, mild intermittent asthma, morbid obesity, presented to the ED due to periumbilical abdominal pain worsening throughout the day yesterday rating it a 9/10 sharp pain with associated nausea. Workup significant for small obstruction and hyperglycemia, medical admission recommended by on-call surgeon with surgical consultation. Small-bowel obstruction - CT with small bowel obstruction with interlooping edema and transition point at mid abdomen - WBC 10.8, no fever, vitals stable, no infectious source, no sepsis - given 1 L NS in ED - NPO, bowel rest - surgical consultation Hyperglycemia - blood sugar 411 on arrival, 369 on repeat - patient received 10 units total of insulin in ED - she did take her nightly dose of Lantus prior to arriving to the ED - hold metformin and glipizide - sliding scale insulin - resume Lantus 20 units nightly when appropriate, pt currently NPO Asymptomatic bacteruria - UA slightly positive, 21-50 WBC, trace leukocytes, 1+ bacteria - patient denies any urinary symptoms - given ceftriaxone in ED, we will hold off on further antibiotics at this time - urine culture pending Obesity hypoventilation syndrome/mild intermittent asthma - no acute respiratory distress or exacerbation - continue home inhalers and oxygen Morbid obesity - BMI 37.2 - weight loss encouraged Full code VTE prophylaxis: Pneumoboots Patient with small bowel obstruction complicated by hyperglycemia, requiring admission for at least 2 midnights stay for surgical consultation, bowel rest and normalization of blood sugar. Quality Stroke Does the patient have a stroke diagnosis?: No VTE Prior VTE?: No VTE Risk Level:: Medical - moderate - high VTE Device Contraindication: N/A - Device Ordered VTE Drug Contraindication: Treatment Not Indicated
--- NOTE | 2024-05-31 05:51 | PC.RT ---
pt has a 6.0 portex cuffless trach and on 3 l nasal cannula with a PMV (speaking Valve). Pt refuses to want a cool aerosol at this time. Extra spare trach 6. 0 portex cuffless tach placed at bedside. pt in no distress. sats 93%.
--- NOTE | 2024-05-31 06:40 | MHC.EDTECH ---
0600 ROUNDING DONE ,VITALS TAKEN ,BLOOD SUGAR CHECK FABRICIO DONAHUE IS AWARE OF RESULT OF 406.
[2024-05-31 06:43] LABS: Glucose, Whole Blood 406 mg/dL (60-115)
[2024-05-31] MEDS: Lactated Ringers 1,000 ML 100 ML IVCONT (06:45)
[2024-05-31] MEDS: Insulin Lispro 100 UNIT/ML 3 ML VIAL SUBCUT ×4 (06:47→22:54)
[2024-05-31] MEDS: Insulin Regular, Human 100 UNIT/ML 10 ML VIAL 10 UNIT IVPUSH (07:24)
--- NOTE | 2024-05-31 07:55 | P.CONGS_ITS ---
History of Present Illness Consult details Consult date: 05/31/24 Narrative: 50F referred question of small-bowel obstruction. She has a complex surgical history history. She apparently was found in respiratory arrest after an episode of asthma last December 2020. She says she was on the ventilator for several weeks in [facility]. 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 She says she had a lot of drains in place and also had an enterocutaneous fistula. She says she eventually had a graft in place. She says she has had chronic abdominal pain since then. She has a tracheostomy in place. She says she does not see a surgeon anymore in [place] as she stated she does not want to go back to [facility]. She sees a tracheostomy clinic in [place]. She has been having diffuse abdominal pain since yesterday. She describes an episode of nausea without any vomiting. She does not recall when her last flatus or bowel movements where. She denies any nausea currently. She admits to diffuse abdominal pain. She has a known diabetic and her blood sugar was 411 last night. She is also morbidly obese. Review of her records show that she has been admitted multiple times for small bowel obstruction here in the hospital. She has a known large, broad-based abdominal wall hernia with loss of domain. Review of Systems 2 Constitutional: Constitutional: Denies chills and Denies fever(s) Comments: Morbidly obese Cardiovascular: Cardiovascular: Denies chest pain, Reports dyspnea and Reports dyspnea on exertion Respiratory: Respiratory: Denies cough, Reports dyspnea and Reports dyspnea on exertion Comments: Has a tracheostomy Gastrointestinal: Gastrointestinal: Denies hematochezia and Denies change in bowel habits Genitourinary: Genitourinary: Denies hematuria Musculoskeletal: Musculoskeletal: Denies back pain and Denies limited range of motion Neurologic: Denies focal weakness and Denies convulsions Psychiatric: Psychiatric: Denies depression and Denies mood swings [facility] Past Medical History Medical History Partial small bowel obstruction Tracheostomy dependent History of cardiac arrest Wound drainage Takotsubo cardiomyopathy Kidney stones UTI (urinary tract infection) Bipolar 1 disorder Diabetes Asthma Substance abuse Family History Family History Mother No pertinent family history Father No pertinent family history Surgical History Surgical History History of tracheostomy S/P ureteral stent placement H/O exploratory laparotomy S/P cholecystectomy Social History Social History Household Members: Spouse Household Members Other:: 1 Housing: Apartment Do you presently have visiting nurse or other home services: No Alcohol intake: former Comment: stayed in ed Patient Tobacco Use Status: Never used Tobacco Second Hand Smoke Exposure: Yes Advance Directives Date on File: 02/04/23 service: No Current occupational status: disabled Meds Allergies Allergy/AdvReac Type Severity Reaction Status Date / Time pantoprazole Allergy Mild Redness of Verified 05/30/24 23:21 Skin Active Medications: Current Medications Acetaminophen (Acetaminophen 325 Mg Tablet) 650 mg PO Q6H PRN PRN Reason: Pain, Mild 1-3,fever,headache Calcium Carbonate (Calcium Carbonate 750 Mg Tab.Chew) 750 mg PO Q4H PRN PRN Reason: Heartburn Dextrose (Dextrose 50 % 25 Gm/50 Ml Syringe) 25 gm IVPUSH Q15M PRN; Protocol PRN Reason: per Hypoglycemia Standing Ord. Glucose (Glucose Gel 15 Gm Gel..Gram.) 15 gm PO Q15M PRN; Protocol PRN Reason: per Hypoglycemia Standing Ord. Lactated Ringer's (Lr) 1,000 mls @ 100 mls/hr IVCONT .Q10H RILEY Stop: 05/31/24 16:29 Last Admin: 05/31/24 06:45 Dose: 100 mls/hr Insulin Glargine (Insulin Glargine,Hum.Rec.Anlog 100 Unit/Ml 10 Ml Vial) 10 unit SUBCUT BEDTIME RILEY Insulin Human Lispro (Insulin Lispro 100 Unit/Ml 3 Ml Vial) 0 unit SUBCUT Q6H RILEY; Protocol Last Admin: 05/31/24 06:47 Dose: 10 unit Magnesium Hydroxide (Milk Of Magnesia 30 Ml Oral.Susp) 30 ml PO DAILY PRN PRN Reason: Constipation Melatonin (Melatonin 3 Mg Tablet) 6 mg PO BEDTIME PRN PRN Reason: Insomnia Ondansetron HCl (Ondansetron Hcl 4 Mg/2 Ml Vial) 4 mg IVPUSH Q8H PRN PRN Reason: Nausea and Vomiting Sodium Chloride (0.9 % Sodium Chloride Flush 3 Ml Syringe) 3 ml IVFLUSH QSHIFT [facility] Home Medications ?Medication ?Instructions ?Recorded ?Confirmed ?Last Taken ?Type albuterol sulfate 90 mcg/actuation 2 puff inhalation Q4H PRN wheezing 02/02/23 05/31/24 09/07/23 20:00 History aerosol inhaler (Ventolin HFA) clonazepam 1 mg tablet 1 mg PO BID PRN Anxiety 02/02/23 05/31/24 09/07/23 20:00 History escitalopram oxalate 20 mg tablet 20 mg PO BEDTIME 02/02/23 05/31/24 03/25/24 History famotidine 20 mg tablet 20 mg PO BID 02/02/23 05/31/24 03/25/24 History fluticasone propionate 50 1 spray intranasal DAILY allergies 02/02/23 05/31/24 03/25/24 History mcg/actuation nasal spray,suspension glipizide 5 mg tablet 5 mg PO DAILY 02/02/23 05/31/24 03/25/24 History insulin lispro 100 unit/mL 1 sliding scale dose subcut TIDAC 02/02/23 05/31/24 03/25/24 History subcutaneous pen lurasidone 60 mg tablet 60 mg PO BEDTIME 02/02/23 05/31/24 03/25/24 History metformin 500 mg tablet,extended 1,000 mg PO BID 02/02/23 05/31/24 03/25/24 History release 24 hr oxcarbazepine 300 mg tablet 300 mg PO BID 02/02/23 05/31/24 03/25/24 History trazodone 150 mg tablet 150 mg PO BEDTIME PRN Sleep 02/02/23 05/31/24 09/07/23 20:00 History insulin glargine 100 unit/mL (3 20 unit subcut DAILY 06/15/23 05/31/24 03/25/24 History mL) subcutaneous pen (Lantus Solostar U-100 Insulin) ibuprofen 200 mg tablet 200 mg PO Q8H PRN Pain 09/08/23 05/31/24 Unknown History gabapentin 300 mg capsule 300 mg PO BID 03/26/24 05/31/24 03/25/24 History promethazine 25 mg tablet 25 mg PO DAILY PRN nausea 03/26/24 05/31/24 Unknown History atorvastatin 20 mg tablet 20 mg PO DAILY 05/31/24 05/31/24 Unknown History mometasone-formoterol HFA 200 2 puff inhalation BID 05/31/24 05/31/24 Unknown History mcg-5 mcg/actuation aerosol inhaler (Dulera) Physical Exam 2 Vital Signs: Vital Signs: Last Vital Signs Temp 98.4 F 05/31/24 07:29 Pulse 98 05/31/24 07:29 Resp 20 05/31/24 07:29 BP 126/80 05/31/24 07:29 Pulse Ox 95 05/31/24 07:29 O2 Del Method Nasal Cannula 05/31/24 07:29 O2 Flow Rate 4 05/31/24 07:29 Oxygen Flow Rate 2 05/30/24 23:19 BMI result Body Mass Index 37.2 Const: Other: Anxious General: no acute distress Neck: Other: Tracheostomy in place Resp: Other: Tracheostomy in place, appears short of breath Cardio: Rhythm: regular rhythm GI: Other: Very obese but soft, obvious loss of domain Palpation (GI): Soft to palpation, not firm and no guarding Results Labs 06/01/24 06:46 06/02/24 07:50 Labs: Abnormal lab results 05/30/24 05/31/24 05/31/24 Range/Units 23:13 00:03 01:40 Neut % (Auto) 75.5 H (45-73) % Lymph % (Auto) 12.7 L (20-40) % Eos % (Auto) 5.6 H (0-4) % Eos # (Auto) 0.6 H (0.0-0.4) X10*3/uL Abs Immat Gran (auto) 0.04 H (0.00-0.03) X10*3/uL Sodium 133 L (135-145) mmol/L Chloride 95 L (96-108) mmol/L Carbon Dioxide 30 H (22-29) mmol/L POC Glucose 396 H* (60-115) mg/dL Random Glucose 411 H* (60-115) mg/dL Alkaline Phosphatase 227 H (39-117) U/L Lipase 7 L (8-78) U/L Urine Glucose (UA) >=1000 H (Negative) mg/dL Ur Leukocyte Esterase Trace H (Negative) Urine WBC 21-50 H (0-5) /HPF 05/31/24 05/31/24 Range/Units 03:48 06:38 Neut % (Auto) (45-73) % Lymph % (Auto) (20-40) % Eos % (Auto) (0-4) % Eos # (Auto) (0.0-0.4) X10*3/uL Abs Immat Gran (auto) (0.00-0.03) X10*3/uL Sodium (135-145) mmol/L Chloride (96-108) mmol/L Carbon Dioxide (22-29) mmol/L POC Glucose 369 H* 406 H* (60-115) mg/dL Random Glucose (60-115) mg/dL Alkaline Phosphatase (39-117) U/L Lipase (8-78) U/L Urine Glucose (UA) (Negative) mg/dL Ur Leukocyte Esterase (Negative) Urine WBC (0-5) /HPF Short CBC 05/31/24 Range/Units 00:03 WBC 10.8 (4.8-10.8) X10*3/uL Hgb 13.0 (12.0-16.0) g/dl Hct 38.8 (37.0-47.0) % Plt Count 367 (160-400) X10*3/uL BMP 05/31/24 00:03 Sodium 133 L Potassium 4.9 Chloride 95 L Carbon Dioxide 30 H BUN 16 Creatinine 1.08 Calcium 8.9 Liver Function 05/31/24 Range/Units 00:03 Total Bilirubin 0.3 (0.0-1.0) mg/dL Direct Bilirubin 0.1 (0.0-0.5) mg/dL AST 15 (5-31) U/L ALT 24 (0-31) U/L Alkaline Phosphatase 227 H (39-117) U/L Albumin 3.5 (3.5-5.0) g/dL Urine 05/31/24 Range/Units 01:40 Urine Color Yellow Urine Appearance Clear Urine pH 5.5 (5.0-9.0) Ur Specific [place] 1.025 (1.005-1.025) Urine Protein Trace (Neg-Trace) mg/dL Urine Glucose (UA) >=1000 H (Negative) mg/dL All other labs normal. Imaging Abdomen CT scan report/results: report reviewed and image reviewed CT scan - pelvis: report reviewed and image reviewed Additional studies: Laboratory Results WBC 10.8 X10*3/uL (4.8-10.8) 05/31/24 00:03 RBC 4.77 X10*6/uL (4.20-5.50) 05/31/24 00:03 Hgb 13.0 g/dl (12.0-16.0) 05/31/24 00:03 Hct 38.8 % (37.0-47.0) 05/31/24 00:03 MCV 81.3 fL (80.0-98.0) 05/31/24 00:03 MCH 27.3 pg (27.0-33.0) 05/31/24 00:03 MCHC 33.5 g/dl (31.0-35.0) 05/31/24 00:03 RDW 13.3 % (11.0-16.0) 05/31/24 00:03 Plt Count 367 X10*3/uL (160-400) 05/31/24 00:03 MPV 9.5 fL (9.4-12.3) 05/31/24 00:03 Immature Gran % (Auto) 0.4 % (0.0-0.4) 05/31/24 00:03 Neut % (Auto) 75.5 % (45-73) H 05/31/24 00:03 Lymph % (Auto) 12.7 % (20-40) L 05/31/24 00:03 Centre % (Auto) 5.3 % (2-11) 05/31/24 00:03 Eos % (Auto) 5.6 % (0-4) H 05/31/24 00:03 Baso % (Auto) 0.5 % (0-2) 05/31/24 00:03 Lymph # (Auto) 1.4 X10*3/uL (1.2-4.9) 05/31/24 00:03 [place] # (Auto) 0.6 X10*3/uL (0.1-1.2) 05/31/24 00:03 Eos # (Auto) 0.6 X10*3/uL (0.0-0.4) H 05/31/24 00:03 Baso # (Auto) 0.1 X10*3/uL (0.0-0.2) 05/31/24 00:03 Abs Immat Gran (auto) 0.04 X10*3/uL (0.00-0.03) H 05/31/24 00:03 Absolute Neuts (auto) 8.2 x10*3/uL (2.0-8.3) 05/31/24 00:03 Absolute Nucleated RBC 0.000 X10*3/uL (0.0-0.012) 05/31/24 00:03 Nucleated RBC % (auto) 0.0 /100WBC (0.0-0.2) 05/31/24 00:03 Sodium 133 mmol/L (135-145) L 05/31/24 00:03 Potassium 4.9 mmol/L (3.3-5.1) 05/31/24 00:03 Chloride 95 mmol/L (96-108) L 05/31/24 00:03 Carbon Dioxide 30 mmol/L (22-29) H 05/31/24 00:03 Anion Gap 13 (12-20) 05/31/24 00:03 BUN 16 mg/dL (9-16) 05/31/24 00:03 Creatinine 1.08 mg/dL (0.5-1.4) 05/31/24 00:03 Estim Creat Clear Calc 65.4 05/31/24 00:03 Estimated GFR 53 05/31/24 00:03 POC Glucose 406 mg/dL (60-115) H* 05/31/24 06:38 Random Glucose 411 mg/dL (60-115) H* 05/31/24 00:03 Lactic Acid 1.6 mmol/L (0.5-2.0) 05/31/24 00:11 Calcium 8.9 mg/dL (8.4-10.2) 05/31/24 00:03 Total Bilirubin 0.3 mg/dL (0.0-1.0) 05/31/24 00:03 Direct Bilirubin 0.1 mg/dL (0.0-0.5) 05/31/24 00:03 AST 15 U/L (5-31) 05/31/24 00:03 ALT 24 U/L (0-31) 05/31/24 00:03 Alkaline Phosphatase 227 U/L (39-117) H 05/31/24 00:03 Total Protein 7.1 g/dL (6.5-8.0) 05/31/24 00:03 Albumin 3.5 g/dL (3.5-5.0) 05/31/24 00:03 Lipase 7 U/L (8-78) L 05/31/24 00:03 Urine Color Yellow 05/31/24 01:40 Urine Appearance Clear 05/31/24 01:40 Urine pH 5.5 (5.0-9.0) 05/31/24 01:40 Ur Specific [place] 1.025 (1.005-1.025) 05/31/24 01:40 Urine Protein Trace mg/dL (Neg-Trace) 05/31/24 01:40 Urine Glucose (UA) >=1000 mg/dL (Negative) H 05/31/24 01:40 Urine Ketones Negative mg/dL (Negative) 05/31/24 01:40 Urine Blood Negative (Negative) 05/31/24 01:40 Urine Nitrite Negative (Negative) 05/31/24 01:40 Ur Leukocyte Esterase Trace (Negative) H 05/31/24 01:40 Urine RBC 0-2 /HPF (0-2) 05/31/24 01:40 Urine WBC 21-50 /HPF (0-5) H 05/31/24 01:40 Ur Squamous Epith Cells 3-5 /HPF (0-2) 05/31/24 01:40 Urine Bacteria 1+ (None Seen) 05/31/24 01:40 Hyaline Casts 0-2 /LPF (0-2) 05/31/24 01:40 Comparison: CT of the abdomen and pelvis Findings: Mild bibasilar atelectasis and/or pneumonitis. Trace left pleural effusion. Redemonstration of the ventral hernia contains stomach, small intestine, large intestine, in the mesentery. Dilatation of multiple small bowel loops concerning for small bowel obstruction with small bowel loops measuring up to 3.3 cm. Enteric contrast is proximal to these dilated loops of small intestine. Interloop edema is multifocal. Transition point noted in the midabdomen. The appendix is not definitively seen. No new or suspicious features of cystic lesions in the kidneys. Filtered contrast could obscure small stones. 2 mm nonobstructing nephrolithiasis suggested in the anterior portion of the left kidney. No hydronephrosis. The adrenal glands are normal. The spleen is nonenlarged. Steatotic change of the liver is noted. Gallbladder is absent. No significant change in small mesenteric and periaortic lymph nodes. No free intraperitoneal air. No drainable abscess by CT. The uterus is anteverted, with intrauterine device in place. Left dorsal calcification likely small fibroid. No adnexal soft tissue mass by CT. Mild deformities of the pelvis appear old/chronic. Degenerative changes include the hips, SI joints, and spine, with multifocal facet arthropathy. Adjacent segment change at L3-L4 with mild retrolisthesis, disc bulge, and facet arthropathy by CT. No definite hardware loosening or intervertebral disc displacement at L4-L5. Inferior vena cava filters are redemonstrated. Assessment and Plan (1) SBO (small bowel obstruction): Status: Acute 53-year-old female with the abdominal pain with a CAT scan showing dilated small bowel loops. She does have good amounts of air distally including the colon. She has had chronic problems with this and has had multiple admissions in the past She has significant loss of domain. There is no obvious twisting of mesentery or any bowel loop. She also presents with multiple medical problems. Her CAT scan images appear similar to her previous CT scans. I would continue with close monitoring. Exam is otherwise benign. She does ask for Dilaudid instead of morphine and requests to be switched to this based on her previous experiences. She does not want any NG tube placement. I will follow along while she is in the hospital. She is being managed for controlled blood sugars as well with her known diabetes Her lactate is normal. Procedures Date of Service Date of Service: 06/04/24
--- NOTE | 2024-05-31 08:41 | PHA.MEDREC ---
Pharmacy Consult ? Medication Reconciliation Pharmacy has completed the medication reconciliation.Med rec complete, spoke to patient and compared with pharmacy claim history.
[2024-05-31] MEDS: Morphine Sulfate 2 MG/ML CARTRIDGE IVPUSH (08:59)
[2024-05-31 09:39] LABS: Glucose, Whole Blood 370 mg/dL (60-115)
--- NOTE | 2024-05-31 12:06 | PM.EVENT ---
Event Note Date of Service: 05/31/24 Event Note: This is a 53-year-old female with a past medical history significant for type 2 diabetes on insulin, history necrotizing pancreatitis, history multiple abdominal surgeries, history SBO, obesity hypoventilation syndrome on O2 at home, mild intermittent asthma, morbid obesity, presented to the ED due to periumbilical abdominal pain worsening throughout the day yesterday rating it a 9/10 sharp pain with associated nausea. Workup significant for small obstruction and hyperglycemia, medical admission recommended by on-call surgeon with surgical consultation. Small-bowel obstruction CT with small bowel obstruction with interlooping edema and transition point at mid abdomen NPO, bowel rest seen by general surgical - history of previous SBO, significant loss of domain. Patient refusing NG tube. Recommended conservative management Hyperglycemia hold metformin and glipizide Continued on low-dose Lantus, titrate prn Follow q.6h POCs and cover with sliding scale Asymptomatic bacteruria UA slightly positive, 21-50 WBC, trace leukocytes, 1+ bacteria patient denies any urinary symptoms given ceftriaxone in ED, we will hold off on further antibiotics at this time urine culture pending Chronic respiratory failure/Obesity hypoventilation syndrome/mild intermittent asthma with chronic tracheostomy no acute respiratory distress or exacerbation continue home inhalers and oxygen Morbid obesity BMI 37.2 weight loss encouraged Mood Hold baseline meds until tolerating p.o. Full code VTE prophylaxis: Pneumoboots Time Spent With Patient Time: Total time managing care of this patient today ____ minutes.
[2024-05-31] MEDS: HYDROmorphone HCl 0.5 MG/0.5 ML SYRINGE IVPUSH ×4 (12:31→21:43)
[2024-05-31 12:47] LABS: Glucose, Whole Blood 391 mg/dL (60-115)
[2024-05-31 14:33] LABS: Glucose, Whole Blood 389 mg/dL (60-115)
--- NOTE | 2024-05-31 14:35 | PM.EVENT ---
Event Note Date of Service: 05/31/24 Event Note: Seen on afternoon rounds Says she is a lot more comfortable Much less pain No nausea or vomiting Stable vital signs Does not appear ill Abdomen soft no guarding, no rebound Continue current care for now NPO temporarily but okay to have small sips of clears, ice chips We will follow up Time Spent With Patient Time: Total time managing care of this patient today ____ minutes.
[2024-05-31] MEDS: Metoclopramide HCl 10 MG/2 ML VIAL 5 MG IVPUSH ×2 (15:39→21:43)
[2024-05-31 17:32] LABS: Glucose, Whole Blood 328 mg/dL (60-115)
[2024-05-31] MEDS: clonazePAM 1 MG TABLET PO (19:25)
[2024-05-31] MEDS: Gabapentin 300 MG CAPSULE PO (19:26)
[2024-05-31] MEDS: Insulin Glargine,Hum.rec.anlog 100 UNIT/ML 10 ML VIAL 10 UNIT SUBCUT (19:26)
[2024-05-31 19:42] LABS: Glucose, Whole Blood 312 mg/dL (60-115)
[2024-05-31 22:36] LABS: Glucose, Whole Blood 316 mg/dL (60-115)
[2024-06-01] MEDS: HYDROmorphone HCl 0.5 MG/0.5 ML SYRINGE IVPUSH ×7 (00:50→21:16)
[2024-06-01] MEDS: Lactated Ringers 1,000 ML 100 ML IVCONT (03:26)
[2024-06-01 03:28] VITALS: BP 150/71; PULSE 96; RESP 16; TEMP 36.8; O2SAT 97
[2024-06-01 05:24] LABS: Glucose, Whole Blood 280 mg/dL (60-115)
[2024-06-01] MEDS: Insulin Lispro 100 UNIT/ML 3 ML VIAL SUBCUT ×4 (05:33→23:39)
[2024-06-01 06:46] VITALS: BP 143/68; PULSE 90; RESP 16; TEMP 36.6; O2SAT 97
[2024-06-01 06:52] LABS: MANUAL DIFF FLAG NO
[2024-06-01 07:02] LABS: Basophils Absolute Auto 0.1 X10*3/uL (0.0-0.2); Basophils Percent Auto 0.5 % (0-2); Eosinophils Absolute Auto 0.2 X10*3/uL (0.0-0.4); Eosinophils Percent Auto 1.5 % (0-4); Hematocrit 37.6 % (37.0-47.0); Hemoglobin 11.9 g/dl (12.0-16.0); Imm Gran Abs Auto 0.05 X10*3/uL (0.00-0.03); Imm Gran Pct Auto 0.5 % (0.0-0.4); Lymphocytes Absolute Auto 1.4 X10*3/uL (1.2-4.9); Lymphocytes Percent Auto 14.8 % (20-40); Mean Corpuscular HGB Conc 31.6 g/dl (31.0-35.0); Mean Corpuscular Volume 85.3 fL (80.0-98.0); Mean Platelet Volume 9.5 fL (9.4-12.3); Monocytes Absolute Auto 0.6 X10*3/uL (0.1-1.2); Monocytes Percent Auto 6.4 % (2-11); Neutrophils Absolute Auto 7.4 x10*3/uL (2.0-8.3); Neutrophils Percent Auto 76.3 % (45-73); Platelet Count 366 X10*3/uL (160-400); Red Blood Count 4.41 X10*6/uL (4.20-5.50); Red Cell Distribution Width 13.5 % (11.0-16.0); White Blood Count 9.7 X10*3/uL (4.8-10.8)
[2024-06-01 07:10] LABS: Anion Gap 11 (12-20); Blood Urea Nitrogen 12 mg/dL (9-16); Calcium 8.4 mg/dL (8.4-10.2); Carbon Dioxide 29 mmol/L (22-29); Chloride 99 mmol/L (96-108); Creatinine Clr Calc Pharmacy 85.7; Estimated Glomerular Filt Rate > 60; Glucose Random 288 mg/dL (60-115); Potassium 4.1 mmol/L (3.3-5.1); Sodium 135 mmol/L (135-145)
[2024-06-01] MEDS: Metoclopramide HCl 10 MG/2 ML VIAL 5 MG IVPUSH ×3 (07:25→21:15)
[2024-06-01] MEDS: Gabapentin 300 MG CAPSULE PO ×2 (07:25→20:24)
--- NOTE | 2024-06-01 07:49 | PM.PNGS ---
Subjective Subjective Date of Service: 06/01/24 Interval history: Denies nausea or vomiting Feels well although asked for Dilaudid Has been ambulating No events reported Physical Exam Vital Signs: Vital Signs: Last Vital Signs Temp 98 F 06/01/24 06:46 Pulse 90 06/01/24 06:46 Resp 16 06/01/24 06:46 BP 143/68 H 06/01/24 06:46 Pulse Ox 97 06/01/24 06:46 O2 Del Method Nasal Cannula 06/01/24 06:46 O2 Flow Rate 3 06/01/24 06:46 Oxygen Flow Rate 2 05/30/24 23:19 BMI result Body Mass Index 41.8 Const: General: comfortable and no acute distress Nutritional Appearance: obese Resp: Other: Has a tracheostomy in place Effort & Inspection: normal respiratory effort Cardio: Rate: regular rate GI: Other: Large hernia with significant loss of domain Palpation (GI): Soft to palpation, not firm and no guarding Objective Data Active Medications Acetaminophen (Acetaminophen 325 Mg Tablet) 650 mg PO Q6H PRN PRN Reason: Pain, Mild 1-3,fever,headache Albuterol Sulfate (Albuterol Sulfate 90 Mcg 8 Gm Inhaler) 2 puff INHALE Q4H PRN PRN Reason: wheezing Calcium Carbonate (Calcium Carbonate 750 Mg Tab.Chew) 750 mg PO Q4H PRN PRN Reason: Heartburn Clonazepam (Clonazepam 1 Mg Tablet) 1 mg PO BID PRN PRN Reason: anxiety/restlessness Last Admin: 05/31/24 19:25 Dose: 1 mg Documented By: ANTWAN Dextrose (Dextrose 50 % 25 Gm/50 Ml Syringe) 25 gm IVPUSH Q15M PRN; Protocol PRN Reason: per Hypoglycemia Standing Ord. Fluticasone Propionate (Fluticasone Propionate Nasal 16 Gm [place]) 1 spray NOSTRIL-B DAILY [facility] Fluticasone/Vilanterol (Fluticasone/Vilanterol 200/25 Blst.W.Dev) 1 puff INHALE RDAILY [facility] Last Admin: 06/01/24 07:27 Dose: Not Given Documented By: LUDIN Non-Admin Reason: pharmacy called for med Gabapentin (Gabapentin 300 Mg Capsule) 300 mg PO BID [facility] Last Admin: 06/01/24 07:25 Dose: 300 mg Documented By: JESSE Glucose (Glucose Gel 15 Gm Gel..Gram.) 15 gm PO Q15M PRN; Protocol PRN Reason: per Hypoglycemia Standing Ord. Hydromorphone HCl (Hydromorphone Hcl 0.5 Mg/0.5 Ml Syringe) 0.5 mg IVPUSH Q3H PRN; Protocol PRN Reason: Pain, Severe (Pain Scale 7-10) Last Admin: 06/01/24 07:26 Dose: 0.5 mg Documented By: JESSE Lactated Ringer's (Lr) 1,000 mls @ 100 mls/hr IVCONT .Q10H [facility] Last Admin: 06/01/24 03:26 Dose: 100 mls/hr Documented By: ANTWAN Insulin Glargine (Insulin Glargine,Hum.Rec.Anlog 100 Unit/Ml 10 Ml Vial) 10 unit SUBCUT BEDTIME RILEY Last Admin: 05/31/24 19:26 Dose: 10 unit Documented By: ANTWAN Insulin Human Lispro (Insulin Lispro 100 Unit/Ml 3 Ml Vial) 0 unit SUBCUT Q6H [facility]; Protocol Last Admin: 06/01/24 05:33 Dose: 6 unit Documented By: ANTWAN Magnesium Hydroxide (Milk Of Magnesia 30 Ml Oral.Susp) 30 ml PO DAILY PRN PRN Reason: Constipation Melatonin (Melatonin 3 Mg Tablet) 6 mg PO BEDTIME PRN PRN Reason: Insomnia Metoclopramide HCl (Metoclopramide Hcl 10 Mg/2 Ml Vial) 5 mg IVPUSH Q6H PRN PRN Reason: Nausea and Vomiting Last Admin: 06/01/24 07:25 Dose: 5 mg Documented By: JESSE Ondansetron HCl (Ondansetron Hcl 4 Mg/2 Ml Vial) 4 mg IVPUSH Q8H PRN PRN Reason: Nausea and Vomiting Last Admin: 05/31/24 08:10 Dose: 4 mg Documented By: MICHAEL Sodium Chloride (0.9 % Sodium Chloride Flush 3 Ml Syringe) 3 ml IVFLUSH QSHIFT [facility] Last Admin: 06/01/24 07:01 Dose: Not Given Documented By: JESSE Non-Admin Reason: IV Running Labs 06/01/24 06:46 06/01/24 06:46 Labs: Laboratory Results - last 24 hr 05/31/24 05/31/24 05/31/24 09:36 12:42 14:27 MCV MCH MCHC RDW Plt Count MPV Immature Gran % (Auto) Neut % (Auto) Lymph % (Auto) [place] % (Auto) Eos % (Auto) Baso % (Auto) Lymph # (Auto) [place] # (Auto) Eos # (Auto) Baso # (Auto) Abs Immat Gran (auto) Absolute Neuts (auto) Absolute Nucleated RBC Nucleated RBC % (auto) Anion Gap Estim Creat Clear Calc Estimated GFR POC Glucose 370 H* 391 H* 389 H* Random Glucose Calcium 05/31/24 05/31/24 05/31/24 17:27 19:10 22:31 MCV MCH MCHC RDW Plt Count MPV Immature Gran % (Auto) Neut % (Auto) Lymph % (Auto) [place] % (Auto) Eos % (Auto) Baso % (Auto) Lymph # (Auto) [place] # (Auto) Eos # (Auto) Baso # (Auto) Abs Immat Gran (auto) Absolute Neuts (auto) Absolute Nucleated RBC Nucleated RBC % (auto) Anion Gap Estim Creat Clear Calc Estimated GFR POC Glucose 328 H 312 H 316 H Random Glucose Calcium 06/01/24 06/01/24 05:19 06:46 MCV 85.3 MCH 27.0 MCHC 31.6 RDW 13.5 Plt Count 366 MPV 9.5 Immature Gran % (Auto) 0.5 H Neut % (Auto) 76.3 H Lymph % (Auto) 14.[address] [place] % (Auto) 6.4 Eos % (Auto) 1.5 Baso % (Auto) 0.5 Lymph # (Auto) 1.4 [place] # (Auto) 0.6 Eos # (Auto) 0.2 Baso # (Auto) 0.1 Abs Immat Gran (auto) 0.05 H Absolute Neuts (auto) 7.4 Absolute Nucleated RBC 0.000 Nucleated RBC % (auto) 0.0 Anion Gap 11 L Estim Creat Clear Calc 85.7 Estimated GFR > 60 POC Glucose 280 H Random Glucose 288 H Calcium 8.4 Microbiology Microbiology Results: Microbiology 05/31/24 04:52 Blood Culture - Preliminary Blood - Venous No growth after 24 hours. 05/31/24 04:49 Blood Culture - Preliminary Blood - Venous No growth after 24 hours. Procedures Date of Service Date of Service: 06/01/24 Progress Note: A&P Assessment and plan (1) SBO (small bowel obstruction): Status: Acute Assessment and Plan: Clinically looks well No nausea or vomiting Abdomen is soft and benign Does have chronic pain issues with her abdomen and says she takes Dilaudid whenever she is in the hospital Would try clear liquid diet today Encouraged ambulation Time Spent With Patient Time: Total time managing care of this patient today ____ minutes. Quality Stroke Does the patient have a stroke diagnosis?: No VTE Prior VTE?: No VTE Risk Level:: Medical - moderate - high VTE Device Contraindication: N/A - Device Ordered VTE Drug Contraindication: Treatment Not Indicated
[2024-06-01] MEDS: clonazePAM 1 MG TABLET PO ×2 (07:51→23:07)
--- NOTE | 2024-06-01 09:43 | MHC.CM.PN ---
05/31/2024 PT ASKED THAT CM COME BACK AT A LATER TIME THE PT WAS IN A LARGE AMOUNT OF PAIN
[2024-06-01] MEDS: Fluticasone Propionate Nasal 16 GM SPRAY 1 SPRAY NOSTRIL-B (10:28)
[2024-06-01 11:10] LABS: Glucose, Whole Blood 329 mg/dL (60-115)
[2024-06-01 11:14] VITALS: BP 140/74; PULSE 84; RESP 17; TEMP 36.3; O2SAT 97
--- NOTE | 2024-06-01 11:27 | HO.PM.IMPN ---
Subjective Subjective Date of Service: 06/01/24 Interval History: Seen and examined this morning Follow-up for SBO Patient reports ongoing pain, nausea improved Review of Systems Review of Systems: Yes all other systems are reviewed and are negative Constitutional Constitutional: Denies chills and Denies fever(s) Cardiovascular Cardiovascular: Denies chest pain, Denies palpitations and Denies dyspnea Respiratory Respiratory: Denies cough and Denies dyspnea Gastrointestinal Gastrointestinal: Reports abdominal pain, Denies diarrhea, Denies nausea and Denies vomiting Endocrine Endocrine: Denies palpitations Physical Exam Vital Signs: Vital Signs: Last Vital Signs Temp 97.4 F 06/01/24 11:14 Pulse 84 06/01/24 11:14 Resp 17 06/01/24 11:14 BP 140/74 H 06/01/24 11:14 Pulse Ox 97 06/01/24 11:14 O2 Del Method Nasal Cannula 06/01/24 11:14 O2 Flow Rate 3 06/01/24 11:14 Oxygen Flow Rate 2 05/30/24 23:19 BMI result Body Mass Index 41.8 Const: General: no acute distress, alert and awake Nutritional Appearance: obese Orientation/consciousness: patient oriented x3 Resp: Other: Has a tracheostomy in place Effort & Inspection: normal respiratory effort, able to speak in complete sentences, no respiratory distress and no use of accessory muscles Cardio: Rate: regular rate GI: Palpation (GI): Soft to palpation Neuro: General: patient oriented x3, moves all extremities and CN's II-XI intact bilaterally Objective Data Active Medications Acetaminophen (Acetaminophen 325 Mg Tablet) 650 mg PO Q6H PRN PRN Reason: Pain, Mild 1-3,fever,headache Albuterol Sulfate (Albuterol Sulfate 90 Mcg 8 Gm Inhaler) 2 puff INHALE Q4H PRN PRN Reason: wheezing Calcium Carbonate (Calcium Carbonate 750 Mg Tab.Chew) 750 mg PO Q4H PRN PRN Reason: Heartburn Clonazepam (Clonazepam 1 Mg Tablet) 1 mg PO BID PRN PRN Reason: anxiety/restlessness Last Admin: 06/01/24 07:51 Dose: 1 mg Documented By: JESSE Dextrose (Dextrose 50 % 25 Gm/50 Ml Syringe) 25 gm IVPUSH Q15M PRN; Protocol PRN Reason: per Hypoglycemia Standing Ord. Fluticasone Propionate (Fluticasone Propionate Nasal 16 Gm [place]) 1 spray NOSTRIL-B DAILY [facility] Last Admin: 06/01/24 10:28 Dose: 1 spray Documented By: JESSE Fluticasone/Vilanterol (Fluticasone/Vilanterol 200/25 Blst.W.Dev) 1 puff INHALE RDAILY [facility] Last Admin: 06/01/24 07:27 Dose: Not Given Documented By: LUDIN Non-Admin Reason: pharmacy called for med Gabapentin (Gabapentin 300 Mg Capsule) 300 mg PO BID [facility] Last Admin: 06/01/24 07:25 Dose: 300 mg Documented By: JESSE Glucose (Glucose Gel 15 Gm Gel..Gram.) 15 gm PO Q15M PRN; Protocol PRN Reason: per Hypoglycemia Standing Ord. Hydromorphone HCl (Hydromorphone Hcl 0.5 Mg/0.5 Ml Syringe) 0.5 mg IVPUSH Q3H PRN; Protocol PRN Reason: Pain, Severe (Pain Scale 7-10) Last Admin: 06/01/24 10:28 Dose: 0.5 mg Documented By: JESSE Lactated Ringer's (Lr) 1,000 mls @ 100 mls/hr IVCONT .Q10H [facility] Last Admin: 06/01/24 03:26 Dose: 100 mls/hr Documented By: ANTWAN Insulin Glargine (Insulin Glargine,Hum.Rec.Anlog 100 Unit/Ml 10 Ml Vial) 10 unit SUBCUT BEDTIME [facility] Last Admin: 05/31/24 19:26 Dose: 10 unit Documented By: ANTWAN Insulin Human Lispro (Insulin Lispro 100 Unit/Ml 3 Ml Vial) 0 unit SUBCUT Q6H [facility]; Protocol Last Admin: 06/01/24 05:33 Dose: 6 unit Documented By: ANTWAN Magnesium Hydroxide (Milk Of Magnesia 30 Ml Oral.Susp) 30 ml PO DAILY PRN PRN Reason: Constipation Melatonin (Melatonin 3 Mg Tablet) 6 mg PO BEDTIME PRN PRN Reason: Insomnia Metoclopramide HCl (Metoclopramide Hcl 10 Mg/2 Ml Vial) 5 mg IVPUSH Q6H PRN PRN Reason: Nausea and Vomiting Last Admin: 06/01/24 07:25 Dose: 5 mg Documented By: JESSE Ondansetron HCl (Ondansetron Hcl 4 Mg/2 Ml Vial) 4 mg IVPUSH Q8H PRN PRN Reason: Nausea and Vomiting Last Admin: 05/31/24 08:10 Dose: 4 mg Documented By: MICHAEL Sodium Chloride (0.9 % Sodium Chloride Flush 3 Ml Syringe) 3 ml IVFLUSH QSHIFT [facility] Last Admin: 06/01/24 07:01 Dose: Not Given Documented By: JESSE Non-Admin Reason: IV Running Labs 06/01/24 06:46 06/01/24 06:46 Labs: Laboratory Results - last 24 hr 05/31/24 05/31/24 05/31/24 12:42 14:27 17:27 MCV MCH MCHC RDW Plt Count MPV Immature Gran % (Auto) Neut % (Auto) Lymph % (Auto) [place] % (Auto) Eos % (Auto) Baso % (Auto) Lymph # (Auto) [place] # (Auto) Eos # (Auto) Baso # (Auto) Abs Immat Gran (auto) Absolute Neuts (auto) Absolute Nucleated RBC Nucleated RBC % (auto) Anion Gap Estim Creat Clear Calc Estimated GFR POC Glucose 391 H* 389 H* 328 H Random Glucose Calcium 05/31/24 05/31/24 06/01/24 19:10 22:31 05:19 MCV MCH MCHC RDW Plt Count MPV Immature Gran % (Auto) Neut % (Auto) Lymph % (Auto) [place] % (Auto) Eos % (Auto) Baso % (Auto) Lymph # (Auto) [place] # (Auto) Eos # (Auto) Baso # (Auto) Abs Immat Gran (auto) Absolute Neuts (auto) Absolute Nucleated RBC Nucleated RBC % (auto) Anion Gap Estim Creat Clear Calc Estimated GFR POC Glucose 312 H 316 H 280 H Random Glucose Calcium 06/01/24 06/01/24 06:46 11:01 MCV 85.3 MCH 27.0 MCHC 31.6 RDW 13.5 Plt Count 366 MPV 9.5 Immature Gran % (Auto) 0.5 H Neut % (Auto) 76.3 H Lymph % (Auto) 14.8 L [place] % (Auto) 6.4 Eos % (Auto) 1.5 Baso % (Auto) 0.5 Lymph # (Auto) 1.4 [place] # (Auto) 0.6 Eos # (Auto) 0.2 Baso # (Auto) 0.1 Abs Immat Gran (auto) 0.05 H Absolute Neuts (auto) 7.4 Absolute Nucleated RBC 0.000 Nucleated RBC % (auto) 0.0 Anion Gap 11 L Estim Creat Clear Calc 85.7 Estimated GFR > 60 POC Glucose 329 H Random Glucose 288 H Calcium 8.4 Microbiology Microbiology Results: Microbiology 05/31/24 Unknown Urine Culture - Preliminary Urine clean catch - Clean Catch Midstream Culture in progress. 05/31/24 04:52 Blood Culture - Preliminary Blood - Venous No growth after 24 hours. 05/31/24 04:49 Blood Culture - Preliminary Blood - Venous No growth after 24 hours. Assessment and Plan (1) SBO (small bowel obstruction): Status: Acute Plan This is a 53-year-old female with a past medical history significant for type 2 diabetes on insulin, history necrotizing pancreatitis, history multiple abdominal surgeries, history SBO, obesity hypoventilation syndrome on O2 at home, mild intermittent asthma, morbid obesity, presented to the ED due to periumbilical abdominal pain worsening throughout the day yesterday rating it a 9/10 sharp pain with associated nausea. Workup significant for small obstruction and hyperglycemia, medical admission recommended by on-call surgeon with surgical consultation. Small-bowel obstruction CT with small bowel obstruction with interlooping edema and transition point at mid abdomen seen by general surgical - history of previous SBO, significant loss of domain. Patient refusing NG tube. Recommended conservative management advance to clear liquid diet frequently requesting pain medication Hyperglycemia hold metformin and glipizide Continued on low-dose Lantus, titrate prn Follow POCs and cover with sliding scale Asymptomatic bacteruria UA slightly positive, 21-50 WBC, trace leukocytes, 1+ bacteria patient denies any urinary symptoms given ceftriaxone in ED, will hold off on further antibiotics at this time urine culture pending Chronic respiratory failure/Obesity hypoventilation syndrome/mild intermittent asthma with chronic tracheostomy no acute respiratory distress or exacerbation continue home inhalers and baseline oxygen Morbid obesity BMI 37.2 weight loss encouraged Mood Hold baseline meds until tolerating p.o. klonopin resumed at pt request Full code VTE prophylaxis: Pneumoboots Patient requires ongoing inpatient stay due to frequent need for IV narcotics, serial abdominal exams, diet advancement Quality Stroke Does the patient have a stroke diagnosis?: No VTE Prior VTE?: No VTE Risk Level:: Medical - moderate - high VTE Device Contraindication: N/A - Device Ordered VTE Drug Contraindication: Treatment Not Indicated
--- NOTE | 2024-06-01 11:34 | P.CDIM_ITS ---
PROVIDER RESPONSE TEXT: To clarify, the appropriate diagnosis supported by the clinical indicators: SBO, complete QUERY TEXT: PHYSICIAN'S DOCUMENTATION REQUEST Date of Query: 06/01/2024 09:38 AM EDT Patient Name: Anna Marie Black Admit Date: 05/31/2024 Dear Danika FRANZ, A review of the medical record indicates additional documentation may be needed. Please review below and update the documentation accordingly. Clinical Indicators: admitted with SBO The following diagnoses or signs and symptoms were noted in the patient record: CT with small bowel obstruction with interlooping edema and transition point at mid abdomen NPO, bowel rest Based on the above, could you clarify the appropriate diagnosis, if significant, that supports the ab ove abnormalities and additional evaluation, monitoring, and/or treatment rendered: SBO, partial SBO, complete SBO, incomplete Labs indicate a diagnosis of (please specify) Other (explain) Clinically unable to determine (explain) Thank you, Olga Toro RN Use of terms such as suspected, likely, concern for, or probable (associated with a specific diagnosi s that is being evaluated, monitored, or treated as if it exists) are acceptable and can be coded in the inpatient se tting, when documented at the time of discharge. Please use your independent medical judgment in providing your response. THIS QUERY IS PART OF THE PERMANENT MEDICAL RECORD
[2024-06-01] MEDS: Lactated Ringers 1,000 ML 80 ML IVCONT (13:51)
--- NOTE | 2024-06-01 14:50 | MHC.CM.PN ---
Patient lives at home w/ . Ambulates w/ cane. 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 helps PRN. Chronic trach w/ baseline home O2 2-4L. O2 and trach supplies through [facility]. PCP Megan Cummings MD HCP on file and verified. 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 Would be open to [facility] if recommended and prefers [facility]. Referral sent via [facility] to follow. Requesting BLS transport. CM will continue to follow.
[2024-06-01 15:02] VITALS: BP 148/85; PULSE 81; RESP 18; TEMP 36.3; O2SAT 92
--- NOTE | 2024-06-01 16:04 | PM.EVENT ---
Event Note Date of Service: 06/01/24 Event Note: Seen on afternoon rounds Tolerating clear liquids Feels much better She does state that she will need Dilaudid periodically Looks well and comfortable currently Diet as tolerated Exam benign Time Spent With Patient Time: Total time managing care of this patient today ____ minutes.
[2024-06-01 17:01] LABS: Glucose, Whole Blood 302 mg/dL (60-115)
[2024-06-01 20:34] LABS: Glucose, Whole Blood 289 mg/dL (60-115)
[2024-06-01] MEDS: Insulin Glargine,Hum.rec.anlog 100 UNIT/ML 10 ML VIAL 10 UNIT SUBCUT (21:21)
[2024-06-01] MEDS: Melatonin 3 MG TABLET 6 MG PO (23:07)
[2024-06-01 23:36] VITALS: BP 156/74; PULSE 80; RESP 18; TEMP 36.5; O2SAT 98
[2024-06-01 23:36] LABS: Glucose, Whole Blood 300 mg/dL (60-115)
[2024-06-01] MEDS: 0.9 % Sodium Chloride Flush 3 ML SYRINGE IVFLUSH (23:40)
[2024-06-02] MEDS: HYDROmorphone HCl 0.5 MG/0.5 ML SYRINGE IVPUSH ×6 (03:20→20:30)
[2024-06-02] MEDS: Lactated Ringers 1,000 ML 80 ML IVCONT (03:21)
[2024-06-02 05:43] LABS: Glucose, Whole Blood 282 mg/dL (60-115)
[2024-06-02] MEDS: Insulin Lispro 100 UNIT/ML 3 ML VIAL SUBCUT ×4 (06:01→21:01)
[2024-06-02] MEDS: Metoclopramide HCl 10 MG/2 ML VIAL 5 MG IVPUSH ×2 (07:35→13:08)
[2024-06-02] MEDS: Gabapentin 300 MG CAPSULE PO ×2 (07:35→20:58)
[2024-06-02] MEDS: 0.9 % Sodium Chloride Flush 3 ML SYRINGE IVFLUSH ×2 (07:35→15:50)
[2024-06-02] MEDS: Fluticasone Propionate Nasal 16 GM SPRAY 1 SPRAY NOSTRIL-B (07:36)
[2024-06-02 07:51] VITALS: BP 154/85; PULSE 85; RESP 18; TEMP 36.1; O2SAT 93
[2024-06-02 08:24] LABS: Anion Gap 13 (12-20); Blood Urea Nitrogen 10 mg/dL (9-16); Calcium 8.4 mg/dL (8.4-10.2); Carbon Dioxide 28 mmol/L (22-29); Chloride 99 mmol/L (96-108); Creatinine Clr Calc Pharmacy 100.5; Estimated Glomerular Filt Rate > 60; Glucose Random 270 mg/dL (60-115); Potassium 4.2 mmol/L (3.3-5.1); Sodium 136 mmol/L (135-145)
[2024-06-02 11:28] LABS: Glucose, Whole Blood 224 mg/dL (60-115)
[2024-06-02 15:12] VITALS: BP 140/70; PULSE 94; RESP 16; TEMP 36.3; O2SAT 93
--- NOTE | 2024-06-02 15:17 | P.PNIM_ITS ---
Subjective Subjective Date of Service: 06/02/24 Interval History: seen and examined this morning follow up for sbo pain improving, had BM requesting diet advancement Review of Systems Review of Systems: Yes all other systems are reviewed and are negative Constitutional Constitutional: Denies chills and Denies fever(s) Cardiovascular Cardiovascular: Denies dyspnea Respiratory Respiratory: Denies dyspnea Gastrointestinal Gastrointestinal: Denies nausea and Denies vomiting Physical Exam 2 Vital Signs: Vital Signs: Last Vital Signs Temp 97.4 F 06/02/24 15:12 Pulse 94 06/02/24 15:12 Resp 16 06/02/24 15:12 BP 140/70 H 06/02/24 15:12 Pulse Ox 93 06/02/24 15:12 O2 Del Method Room Air 06/02/24 15:12 O2 Flow Rate 3 06/01/24 23:36 Oxygen Flow Rate 2 05/30/24 23:19 BMI result Body Mass Index 41.8 Const: General: no acute distress, alert and awake Nutritional Appearance: obese Orientation/consciousness: patient oriented x3 Resp: Other: Has a tracheostomy in place Effort & Inspection: normal respiratory effort, able to speak in complete sentences, no respiratory distress and no use of accessory muscles Cardio: Rate: regular rate GI: Palpation (GI): Soft to palpation Neuro: General: patient oriented x3, moves all extremities and CN's II-XI intact bilaterally Objective Data Active Medications Acetaminophen (Acetaminophen 325 Mg Tablet) 650 mg PO Q6H PRN PRN Reason: Pain, Mild 1-3,fever,headache Albuterol Sulfate (Albuterol Sulfate 90 Mcg 8 Gm Inhaler) 2 puff INHALE Q4H PRN PRN Reason: wheezing Calcium Carbonate (Calcium Carbonate 750 Mg Tab.Chew) 750 mg PO Q4H PRN PRN Reason: Heartburn Clonazepam (Clonazepam 1 Mg Tablet) 1 mg PO BID PRN PRN Reason: anxiety/restlessness Last Admin: 06/01/24 23:07 Dose: 1 mg Documented By: DELVIN Dextrose (Dextrose 50 % 25 Gm/50 Ml Syringe) 25 gm IVPUSH Q15M PRN; Protocol PRN Reason: per Hypoglycemia Standing Ord. Fluticasone Propionate (Fluticasone Propionate Nasal 16 Gm [place]) 1 spray NOSTRIL-B DAILY [facility] Last Admin: 06/02/24 07:36 Dose: 1 spray Documented By: DEENA Fluticasone/Vilanterol (Fluticasone/Vilanterol 200/25 Blst.W.Dev) 1 puff INHALE RDAILY [facility] Last Admin: 06/02/24 08:42 Dose: Not Given Documented By: JACQUELINE Non-Admin Reason: Med Not Available Gabapentin (Gabapentin 300 Mg Capsule) 300 mg PO BID [facility] Last Admin: 06/02/24 07:35 Dose: 300 mg Documented By: DEENA Glucose (Glucose Gel 15 Gm Gel..Gram.) 15 gm PO Q15M PRN; Protocol PRN Reason: per Hypoglycemia Standing Ord. Hydromorphone HCl (Hydromorphone Hcl 0.5 Mg/0.5 Ml Syringe) 0.5 mg IVPUSH Q4H PRN; Protocol PRN Reason: Pain, Severe (Pain Scale 7-10) Last Admin: 06/02/24 13:08 Dose: 0.5 mg Documented By: KAVEH Lactated Ringer's (Lr) 1,000 mls @ 80 mls/hr IVCONT .[id number] [facility] Last Admin: 06/02/24 03:21 Dose: 80 mls/hr Documented By: DELVIN Insulin Glargine (Insulin Glargine,Hum.Rec.Anlog 100 Unit/Ml 10 Ml Vial) 10 unit SUBCUT BEDTIME [facility] Last Admin: 06/01/24 21:21 Dose: 10 unit Documented By: DELVIN Insulin Human Lispro (Insulin Lispro 100 Unit/Ml 3 Ml Vial) 0 unit SUBCUT Q6H [facility]; Protocol Last Admin: 06/02/24 11:41 Dose: 4 unit Documented By: DEENA Magnesium Hydroxide (Milk Of Magnesia 30 Ml Oral.Susp) 30 ml PO DAILY PRN PRN Reason: Constipation Melatonin (Melatonin 3 Mg Tablet) 6 mg PO BEDTIME PRN PRN Reason: Insomnia Last Admin: 06/01/24 23:07 Dose: 6 mg Documented By: DELVIN Metoclopramide HCl (Metoclopramide Hcl 10 Mg/2 Ml Vial) 5 mg IVPUSH Q6H PRN PRN Reason: Nausea and Vomiting Last Admin: 06/02/24 13:08 Dose: 5 mg Documented By: KAVEH Sodium Chloride (0.9 % Sodium Chloride Flush 3 Ml Syringe) [facility] Last Admin: 06/02/24 07:35 Dose: 3 ml Documented By: DEENA Labs 06/01/24 06:46 06/02/24 07:50 Labs: Laboratory Results - last 24 hr 06/01/24 06/01/24 06/01/24 16:57 20:29 23:28 Hold Purple Top Anion Gap Estim Creat Clear Calc Estimated GFR POC Glucose 302 H 289 H 300 H Random Glucose Calcium 06/02/24 06/02/24 06/02/24 05:39 07:50 11:07 Hold Purple Top SEE NOTE Anion Gap 13 Estim Creat Clear Calc 100.5 Estimated GFR > 60 POC Glucose 282 H 224 H Random Glucose 270 H Calcium 8.4 Microbiology Microbiology Results: Microbiology 05/31/24 Unknown Urine Culture - Preliminary Urine clean catch - Clean Catch Midstream Gram negative traci 05/31/24 04:52 Blood Culture - Preliminary Blood - Venous No growth after 48 hours. 05/31/24 04:49 Blood Culture - Preliminary Blood - Venous No growth after 48 hours. Assessment and Plan (1) SBO (small bowel obstruction): Status: Acute Plan This is a 53-year-old female with a past medical history significant for type 2 diabetes on insulin, history necrotizing pancreatitis, history multiple abdominal surgeries, history SBO, obesity hypoventilation syndrome on O2 at home, mild intermittent asthma, morbid obesity, presented to the ED due to periumbilical abdominal pain worsening throughout the day yesterday rating it a 9/10 sharp pain with associated nausea. Workup significant for small obstruction and hyperglycemia, medical admission recommended by on-call surgeon with surgical consultation. Small-bowel obstruction CT with small bowel obstruction with interlooping edema and transition point at mid abdomen seen by general surgical - history of previous SBO, significant loss of domain. Patient refusing NG tube. seen by surgery - recommended conservative management will advance to low fiber diet frequently requesting pain medication Hyperglycemia hold metformin and glipizide Continued on low-dose Lantus, titrate prn Follow POCs and cover with sliding scale UTI urine culture growing GNR previous urine culture with h/o esbl klesiella will start ceftraixone, await final urine culture Chronic respiratory failure/Obesity hypoventilation syndrome/mild intermittent asthma with chronic tracheostomy no acute respiratory distress or exacerbation continue home inhalers and baseline oxygen Morbid obesity BMI 37.2 weight loss encouraged Mood resume baseline meds Full code VTE prophylaxis: Pneumoboots Patient requires ongoing inpatient stay due to frequent need for IV narcotics, serial abdominal exams, diet advancement Quality Stroke Does the patient have a stroke diagnosis?: No VTE Prior VTE?: No VTE Risk Level:: Medical - moderate - high VTE Device Contraindication: N/A - Device Ordered VTE Drug Contraindication: Treatment Not Indicated
[2024-06-02] MEDS: clonazePAM 1 MG TABLET PO ×2 (15:50→20:59)
[2024-06-02] MEDS: cefTRIAXone sodium 1 GM VIAL IVPUSH (15:50)
--- NOTE | 2024-06-02 16:00 | PC.NURSE ---
Patient requesting discharge AMA. Provider came to bedside and spoke to patient about need for antibiotics and pain treatment and patient agreed to stay
[2024-06-02 16:33] LABS: Glucose, Whole Blood 372 mg/dL (60-115)
[2024-06-02 19:41] VITALS: BP 139/86; PULSE 77; RESP 18; TEMP 36.2; O2SAT 92
[2024-06-02 20:26] LABS: Glucose, Whole Blood 407 mg/dL (60-115)
[2024-06-02] MEDS: Escitalopram Oxalate 20 MG TABLET PO (20:57)
[2024-06-02] MEDS: Lurasidone HCl 20 MG TABLET 60 MG PO (20:58)
[2024-06-02] MEDS: OXcarbazepine 300 MG TABLET PO (20:59)
[2024-06-02] MEDS: Famotidine 20 MG TABLET PO (20:59)
[2024-06-02] MEDS: Insulin Glargine,Hum.rec.anlog 100 UNIT/ML 10 ML VIAL 10 UNIT SUBCUT (21:00)
[2024-06-02] MEDS: Melatonin 3 MG TABLET 6 MG PO (21:00)
--- NOTE | 2024-06-02 21:00 | PC.NURSE ---
Addendum entered by Itzel Pearce RN 06/03/24 05:58: POC rechecked at 0500, POC at 151, 2 additional units given per MAY. Pt resting quietly in no apparent distress at this time. Original Note: Pt POC: 407, Dr. Cuevas made aware, new orders placed, additional 10 units lispro ordered and sliding scale 10U given early, with 10U of scheduled glargine. Pt given snacks, and resting comfortable, in no apparent distress at this time.
[2024-06-02] MEDS: Insulin Lispro 100 UNIT/ML 3 ML VIAL 10 UNIT SUBCUT (21:01)
[2024-06-02 23:27] VITALS: BP 138/77; PULSE 68; RESP 18; TEMP 36; O2SAT 93
[2024-06-02 23:39] LABS: Glucose, Whole Blood 304 mg/dL (60-115)
[2024-06-03] MEDS: 0.9 % Sodium Chloride Flush 3 ML SYRINGE IVFLUSH ×3 (00:04→19:51)
[2024-06-03] MEDS: Insulin Lispro 100 UNIT/ML 3 ML VIAL 10 UNIT SUBCUT ×2 (00:04→18:09)
[2024-06-03] MEDS: HYDROmorphone HCl 0.5 MG/0.5 ML SYRINGE IVPUSH ×6 (01:19→21:10)
[2024-06-03 05:21] LABS: Glucose, Whole Blood 151 mg/dL (60-115)
[2024-06-03] MEDS: Insulin Lispro 100 UNIT/ML 3 ML VIAL SUBCUT ×5 (05:25→21:07)
[2024-06-03 07:04] VITALS: BP 144/72; PULSE 69; RESP 20; TEMP 36; O2SAT 93
[2024-06-03 07:37] LABS: Glucose, Whole Blood 196 mg/dL (60-115)
[2024-06-03] MEDS: Fluticasone Propionate Nasal 16 GM SPRAY 1 SPRAY NOSTRIL-B (08:08)
[2024-06-03] MEDS: Atorvastatin Calcium 20 MG TABLET PO (08:08)
[2024-06-03] MEDS: OXcarbazepine 300 MG TABLET PO ×2 (08:08→19:49)
[2024-06-03] MEDS: Famotidine 20 MG TABLET PO ×2 (08:08→19:50)
[2024-06-03] MEDS: Gabapentin 300 MG CAPSULE PO ×2 (08:08→19:50)
[2024-06-03] MEDS: Meropenem 1 GM VIAL IVPUSH ×2 (09:50→18:10)
[2024-06-03] MEDS: clonazePAM 1 MG TABLET PO ×2 (11:27→23:09)
[2024-06-03 11:28] LABS: Glucose, Whole Blood 377 mg/dL (60-115)
--- NOTE | 2024-06-03 11:37 | P.DS_ITS ---
DS: Providers Provider Date of Service: 06/03/24 Date of admission: 05/31/24 05:20 Date of discharge: 06/03/24 Primary care physician: Megan Cummings MD Consults: 05/31/24 05:20 Consult to General Surgery Routine Consulting Provider: [facility] General Surgeons Reason for consultation: SBO 06/03/24 09:07 Consult to Infectious Diseases Routine Consulting Provider: [facility] Infect[facility] Reason for consultation: esbl uti Has provider been notified: No Attending physician on discharge: Marcial Sr Discharging clinician: Danika Vegas DS: Diagnosis Discharge Diagnosis (1) SBO (small bowel obstruction): Status: Acute DS: Summary Hospital Course Hospital Course: From H&P on the day of admission Patient is a 53-year-old female with a past medical history significant for type 2 diabetes on insulin, history necrotizing pancreatitis, history multiple abdominal surgeries, history SBO, obesity hypoventilation syndrome on O2 at home, mild intermittent asthma morbid obesity, presented to the ED due to periumbilical abdominal pain worsening throughout the day yesterday rating it a 9/10 sharp pain with associated nausea. She denies any vomiting. Last bowel movement is unknown and she reports she has been unable to pass gas. She also denies any urinary symptoms including frequency, urgency or dysuria. Small-bowel obstruction CT with small bowel obstruction with interlooping edema and transition point at mid abdomen seen by general surgical - history of previous SBO, significant loss of domain. Patient refusing NG tube. seen by surgery - recommended conservative management. Gradually patient's symptoms improved, she had bowel movement, has been tolerating regular diet. Diabetes with Hyperglycemia Medications were placed on hold as the patient was initially NPO. She was covered with the insulin sliding scale. Patient is now tolerating a regular diet, most recent blood sugar is somewhat elevated, she will resume her baseline medications upon discharge, she feels comfortable managing her diabetes in his eager to return home. If blood sugar remains elevated she is instructed to call her PCP for adjustment UTI Unclear why urine was obtained in the emergency department. Patient denies any urinary symptoms. She has been afebrile, no leukocytosis. Urine culture grew ESBL Klebsiella. Urine cultures have been positive for ESBL Klebsiella dating back to 2022. Discussed with Infectious diseases, no need to treat, likely colonization. Chronic respiratory failure/Obesity hypoventilation syndrome/mild intermittent asthma with chronic tracheostomy no acute respiratory distress or exacerbation continue home inhalers and baseline oxygen Time Attestation Discharge Coordination Time (in mins): 32 Quality: Safe Use of Opioids Does Pt have an Active Cancer Diagnosis on the Problem List?: No Quality: Stroke Does the patient have a stroke diagnosis?: No Physical Exam Vital Signs: Vital Signs: Last Vital Signs Temp 96.8 F 06/03/24 07:04 Pulse 69 06/03/24 07:04 Resp 20 06/03/24 07:04 BP 144/72 H 06/03/24 07:04 Pulse Ox 93 06/03/24 07:04 O2 Del Method Room Air 06/03/24 07:04 O2 Flow Rate 3 06/01/24 23:36 Oxygen Flow Rate 2 05/30/24 23:19 BMI result Body Mass Index 41.8 Const: General: no acute distress, alert and awake Nutritional Appearance: obese Orientation/consciousness: patient oriented x3 Resp: Other: Has a tracheostomy in place Effort & Inspection: normal respiratory effort, able to speak in complete sentences, no respiratory distress and no use of accessory muscles Cardio: Rate: regular rate GI: Palpation (GI): Soft to palpation Neuro: General: patient oriented x3, moves all extremities and CN's II-XI intact bilaterally DS: Data Data Completed and Pending Completed studies during hospitalization [Text1]: Procedures Dilation of Left Ureter with Intraluminal Device, Via Natural or Artificial O pening Endoscopic (06/11/21) Fluoroscopy of Left Kidney, Ureter and Bladder (06/11/21) Labs on day of discharge: Laboratory Results - last 24 hr 06/02/24 06/02/24 06/02/24 16:28 20:22 23:36 POC Glucose 372 H* 407 H* 304 H 06/03/24 06/03/24 06/03/24 05:17 07:07 11:12 POC Glucose 151 H 196 H 377 H* Preliminary micro results at discharge 05/31/24 04:52 Blood Culture - Preliminary Blood - Venous No growth after 48 hours. 05/31/24 04:49 Blood Culture - Preliminary Blood - Venous No growth after 48 hours. Discharge Plan Discharge Anticipated Discharge Date/Time: 06/03/24 11:42 Patient Disposition: Home, Self-Care Discharge Diagnosis: Small-bowel obstruction Diabetes with hyperglycemia Referrals: Megan Mosqueda MD [Primary Care Provider] - 1 Week Discharge Medications: Continued insulin glargine [Lantus Solostar U-100 Insulin] 100 unit/mL (3 mL) insulin pen 20 unit subcut DAILY ibuprofen 200 mg Tablet 200 mg PO Q8H PRN (Reason: Pain) clonazepam 1 mg tablet 1 mg PO BID PRN (Reason: Anxiety) oxcarbazepine 300 mg tablet 300 mg PO BID famotidine 20 mg tablet 20 mg PO BID trazodone 150 mg tablet 150 mg PO BEDTIME PRN (Reason: Sleep) albuterol sulfate [Ventolin HFA] 90 mcg/actuation HFA aerosol inhaler 2 puff inhalation Q4H PRN (Reason: wheezing) fluticasone propionate 50 mcg/actuation spray,suspension 1 spray intranasal DAILY Rx Instructions: INHALE IN BOTH NOSTRILS metformin 500 mg tablet extended release 24 hr 1,000 mg PO BID glipizide 5 mg tablet 5 mg PO DAILY insulin lispro 100 unit/mL insulin pen 1 sliding scale dose subcut TIDAC escitalopram oxalate 20 mg tablet 20 mg PO BEDTIME lurasidone 60 mg tablet 60 mg PO BEDTIME promethazine 25 mg tablet 25 mg PO DAILY PRN (Reason: nausea) gabapentin 300 mg capsule 300 mg PO BID atorvastatin 20 mg Tablet 20 mg PO DAILY Dulera 200-5 mcg/actuation Hfa Aerosol Inhaler 2 puff INHALATION BID Discharge Orders: Discharge Order (Routine); Ordered 06/03/24 Ordered By: Danika Vegas Activity on Discharge: As tolerated Stand Alone Forms: Patient Portal Discharge page Print Language: Italian Care Plan Goals: See discharge summary Health Concerns: Small-bowel obstruction-resolved UTI-ruled out. Likely colonization, no need to treat Diabetes with hyperglycemia Plan of Treatment: Call to schedule follow-up appointment with PCP as needed Follow diabetic diet, resume all diabetic medications upon discharge. If blood sugar remains elevated would recommend contact PCP for medication adjustment Assessment: See discharge summary
--- NOTE | 2024-06-03 11:56 | MHC.CM.PN ---
PT DCD HOME SELF CARE PT HAS A HAND NAILER BLS BOOKED
[2024-06-03] MEDS: Metoclopramide HCl 10 MG/2 ML VIAL 5 MG IVPUSH (13:56)
[2024-06-03 16:00] VITALS: BP 173/87; PULSE 92; RESP 18; TEMP 36.2; O2SAT 95
[2024-06-03 17:31] LABS: Glucose, Whole Blood 486 mg/dL (60-115)
--- NOTE | 2024-06-03 18:12 | PM.EVENT ---
Event Note Date of Service: 06/03/24 Event Note: Patient awaiting discharge and found to have a sugar of greater than 500. Discharge canceled Lantus and other insulins adjusted. Patient agreeable to stay Time Spent With Patient Time: Total time managing care of this patient today ____ minutes.
--- NOTE | 2024-06-03 18:36 | PC.NURSE ---
Patient scheduled for discharge. Paperwork done and signed, ambulance scheduled for 4pm bulk picker. Ambulance pickup running very late due to parade and emergency calls. At 5pm patient still waiting. This RN checked patient blood glucose for scheduled sliding scale insulin dose. Patients blood sugar was 486. was notified and decided to keep her overnight and administer 20units insulin. Patient agreed. Discharge on hold until AM
[2024-06-03 19:38] LABS: Glucose, Whole Blood 367 mg/dL (60-115)
[2024-06-03] MEDS: Insulin Glargine,Hum.rec.anlog 100 UNIT/ML 10 ML VIAL 20 UNIT SUBCUT (19:49)
[2024-06-03] MEDS: Lurasidone HCl 20 MG TABLET 60 MG PO (19:50)
[2024-06-03] MEDS: Escitalopram Oxalate 20 MG TABLET PO (19:50)
--- NOTE | 2024-06-03 21:16 | MHC.PIE ---
p; poc 367at 1930. note;last poc at 1700 was 486, admelog q6 next dose not till 2330. note; pt called kitchen from room demanding sandwiches - 2 sandwiches in room and pt demanding to eat it... i; dr rivera notified. give lantus 20u and admelog 10 per ss now e; will cont to monitor
--- NOTE | 2024-06-03 22:29 | P.CNID_ITS ---
History of Present Illness Data of Consult Service Date: 06/03/24 Requesting physician: Danika Vegas Primary Care Provider: Megan Cummings MD HPI Reason for consult: abdominal pain She presents with 7-8/10 epigastric pain. She has no fever or chills. She has blood cultures negative. She has SBO on CT. She has no dysuria or hematuria. Review of Systems 2 Review of Systems: Yes all other systems are reviewed and are negative PMFSH Past Medical History Medical History Partial small bowel obstruction Tracheostomy dependent History of cardiac arrest Wound drainage Takotsubo cardiomyopathy Kidney stones UTI (urinary tract infection) Bipolar 1 disorder Diabetes Asthma Substance abuse Family History Family History Mother No pertinent family history Father No pertinent family history Family history: reviewed and not pertinent Surgical History Surgical History History of tracheostomy S/P ureteral stent placement H/O exploratory laparotomy S/P cholecystectomy Social History Social History Household Members: Spouse Household Members Other:: 1 Housing: Apartment Do you presently have visiting nurse or other home services: No Alcohol intake: former Comment: stayed in ed Patient Tobacco Use Status: Never used Tobacco Second Hand Smoke Exposure: Yes Advance Directives Date on File: 02/04/23 service: No Current occupational status: disabled Meds Allergies Allergy/AdvReac Type Severity Reaction Status Date / Time pantoprazole Allergy Mild Redness of Verified 05/30/24 23:21 Skin Active Medications: Current Medications Acetaminophen (Acetaminophen 325 Mg Tablet) 650 mg PO Q6H PRN PRN Reason: Pain, Mild 1-3,fever,headache Albuterol Sulfate (Albuterol Sulfate 90 Mcg 8 Gm Inhaler) 2 puff INHALE Q4H PRN PRN Reason: wheezing Albuterol Sulfate (Albuterol Sulfate 90 Mcg 8 Gm Inhaler) 2 puff INHALE RQ4H PRN PRN Reason: Wheezing Atorvastatin Calcium (Atorvastatin Calcium 20 Mg Tablet) 20 mg PO DAILY [facility] Last Admin: 06/03/24 08:08 Dose: 20 mg Calcium Carbonate (Calcium Carbonate 750 Mg Tab.Chew) 750 mg PO Q4H PRN PRN Reason: Heartburn Clonazepam (Clonazepam 1 Mg Tablet) 1 mg PO BID PRN PRN Reason: anxiety/restlessness Last Admin: 06/03/24 11:27 Dose: 1 mg Dextrose (Dextrose 50 % 25 Gm/50 Ml Syringe) 25 gm IVPUSH Q15M PRN; Protocol PRN Reason: per Hypoglycemia Standing Ord. Escitalopram Oxalate (Escitalopram Oxalate 20 Mg Tablet) 20 mg PO BEDTIME [facility] Last Admin: 06/03/24 19:50 Dose: 20 mg Famotidine (Famotidine 20 Mg Tablet) 20 mg PO BID [facility] Last Admin: 06/03/24 19:50 Dose: 20 mg Fluticasone Propionate (Fluticasone Propionate Nasal 16 Gm [place]) 1 spray NOSTRIL-B DAILY [facility] Last Admin: 06/03/24 08:08 Dose: 1 spray Fluticasone/Vilanterol (Fluticasone/Vilanterol 200/25 Blst.W.Dev) 1 puff INHALE RDAILY [facility] Last Admin: 06/03/24 08:24 Dose: Not Given Gabapentin (Gabapentin 300 Mg Capsule) 300 mg PO BID [facility] Last Admin: 06/03/24 19:50 Dose: 300 mg Glucose (Glucose Gel 15 Gm Gel..Gram.) 15 gm PO Q15M PRN; Protocol PRN Reason: per Hypoglycemia Standing Ord. Hydromorphone HCl (Hydromorphone Hcl 0.5 Mg/0.5 Ml Syringe) 0.5 mg IVPUSH Q3H PRN; Protocol PRN Reason: Pain, Severe (Pain Scale 7-10) Last Admin: 06/03/24 21:10 Dose: 0.5 mg Insulin Glargine (Insulin Glargine,Hum.Rec.Anlog 100 Unit/Ml 10 Ml Vial) 20 unit SUBCUT BEDTIME [facility] Last Admin: 06/03/24 19:49 Dose: 20 unit Insulin Glargine (Insulin Glargine,Hum.Rec.Anlog 100 Unit/Ml 10 Ml Vial) 10 unit SUBCUT DAILY [facility] Insulin Human Lispro (Insulin Lispro 100 Unit/Ml 3 Ml Vial) 0 unit SUBCUT Q6H [facility]; Protocol Last Admin: 06/03/24 21:07 Dose: 10 unit Lurasidone HCl (Lurasidone Hcl 20 Mg Tablet) 60 mg PO BEDTIME [facility] Last Admin: 06/03/24 19:50 Dose: 60 mg Magnesium Hydroxide (Milk Of Magnesia 30 Ml Oral.Susp) 30 ml PO DAILY PRN PRN Reason: Constipation Melatonin (Melatonin 3 Mg Tablet) 6 mg PO BEDTIME PRN PRN Reason: Insomnia Last Admin: 06/02/24 21:00 Dose: 6 mg Meropenem (Meropenem 1 Gm Vial) 1 gm IVPUSH Q8H [facility] Last Admin: 06/03/24 18:10 Dose: 1 gm Metoclopramide HCl (Metoclopramide Hcl 10 Mg/2 Ml Vial) 5 mg IVPUSH Q6H PRN PRN Reason: Nausea and Vomiting Last Admin: 06/03/24 13:56 Dose: 5 mg Oxcarbazepine (Oxcarbazepine 300 Mg Tablet) 300 mg PO BID [facility] Last Admin: 06/03/24 19:49 Dose: 300 mg Sodium Chloride (0.9 % Sodium Chloride Flush 3 Ml Syringe) 3 ml IVFLUSH QSHIFT [facility] Last Admin: 06/03/24 19:51 Dose: 3 ml Home Medications ?Medication ?Instructions ?Recorded ?Confirmed ?Last Taken ?Type albuterol sulfate 90 mcg/actuation 2 puff inhalation Q4H PRN wheezing 02/02/23 05/31/24 09/07/23 20:00 History aerosol inhaler (Ventolin HFA) clonazepam 1 mg tablet 1 mg PO BID PRN Anxiety 02/02/23 05/31/24 09/07/23 20:00 History escitalopram oxalate 20 mg tablet 20 mg PO BEDTIME 02/02/23 05/31/24 03/25/24 History famotidine 20 mg tablet 20 mg PO BID 02/02/23 05/31/24 03/25/24 History fluticasone propionate 50 1 spray intranasal DAILY allergies 02/02/23 05/31/24 03/25/24 History mcg/actuation nasal spray,suspension glipizide 5 mg tablet 5 mg PO DAILY 02/02/23 05/31/24 03/25/24 History insulin lispro 100 unit/mL 1 sliding scale dose subcut TIDAC 02/02/23 05/31/24 03/25/24 History subcutaneous pen lurasidone 60 mg tablet 60 mg PO BEDTIME 11/05/31/24 03/25/24 History metformin 500 mg tablet,extended 1,000 mg PO BID 02/02/23 05/31/24 03/25/24 History release 24 hr oxcarbazepine 300 mg tablet 300 mg PO BID 02/02/23 05/31/24 03/25/24 History trazodone 150 mg tablet 150 mg PO BEDTIME PRN Sleep 02/02/23 05/31/24 09/07/23 20:00 History insulin glargine 100 unit/mL (3 20 unit subcut DAILY 06/15/23 05/31/24 03/25/24 History mL) subcutaneous pen (Lantus Solostar U-100 Insulin) ibuprofen 200 mg tablet 200 mg PO Q8H PRN Pain 09/08/23 05/31/24 Unknown History gabapentin 300 mg capsule 300 mg PO BID 03/26/24 05/31/24 03/25/24 History promethazine 25 mg tablet 25 mg PO DAILY PRN nausea 03/26/24 05/31/24 Unknown History atorvastatin 20 mg tablet 20 mg PO DAILY 05/31/24 05/31/24 Unknown History mometasone-formoterol HFA 200 2 puff inhalation BID 05/31/24 05/31/24 Unknown History mcg-5 mcg/actuation aerosol inhaler (Dulera) Physical Exam 2 Vital Signs: Vital Signs: Last Vital Signs Temp 97.2 F 06/03/24 16:00 Pulse 92 06/03/24 16:00 Resp 18 06/03/24 16:00 BP 173/87 H 06/03/24 16:00 Pulse Ox 95 06/03/24 16:00 O2 Del Method Nasal Cannula 06/03/24 16:00 O2 Flow Rate 3 06/01/24 23:36 Oxygen Flow Rate 2 05/30/24 23:19 BMI result Body Mass Index 41.8 Const: General: cooperative HEENT: Head: Yes normal to inspection Face and sinus: Yes normal facial exam Mouth: Normal oral and palatal mucosa present Teeth and gingiva: d entition normal Eyes: General: appearance normal, both eyes and all related structures P upils: Equal, round and reactive pupils present Resp: Effort & Inspection: normal respiratory effort Cardio: Rate: regular rate Rhythm: regular rhythm GI: Other: no flank pain mild abdominal discomfort Palpation (GI): Soft to palpation and nontender : General: Yes no CVA tenderness Back/Spine/Pelvis: Back: no CVA tenderness Skin: General skin exam: no rashes or lesions noted Neuro: General: moves all extremities Cranial nerves: Yes Equal, round and reactive pupils present Extrem: General: Yes normal to inspection Psych: Appearance: grossly normal Results Labs 06/01/24 06:46 06/02/24 07:50 Microbiology Microbiology Results: Microbiology 05/31/24 Unknown Urine clean catch - Clean Catch Midstream Urine Culture - Final Klebsiella pneumoniae 05/31/24 04:52 Blood - Venous Blood Culture - Preliminary No growth after 48 hours. 05/31/24 04:49 Blood - Venous Blood Culture - Preliminary No growth after 48 hours. Assessment and Plan (1) Asymptomatic bacteriuria: Status: Acute (2) SBO (small bowel obstruction): Status: Acute Plan She has SBO and is symptomatic from this. She has asymptomatic bacteriuria. Would stop Merem. No treatment for asymptomatic ESBL Klebsiella pneumonia bacteriuria at this time.
[2024-06-03] MEDS: Melatonin 3 MG TABLET 6 MG PO (23:09)
[2024-06-04] VITALS: BP 142/74; PULSE 95; RESP 20; TEMP 36.6; O2SAT 97
[2024-06-04 00:06] LABS: Glucose, Whole Blood 200 mg/dL (60-115)
[2024-06-04] MEDS: HYDROmorphone HCl 0.5 MG/0.5 ML SYRINGE IVPUSH ×3 (00:07→08:40)
[2024-06-04] MEDS: Meropenem 1 GM VIAL IVPUSH ×2 (00:15→10:43)
--- NOTE | 2024-06-04 04:08 | MHC.PIE ---
p; pt scheduled for q6 admelog? note; pt no longer npo, pt is on DM diet and is tolerating, ? qidachs? i; dr rivera notified. ok not to give insulin at 0530 e; will cont to monitor
[2024-06-04 08:00] VITALS: BP 132/71; PULSE 95; RESP 16; TEMP 36.7; O2SAT 96
[2024-06-04 08:12] LABS: Glucose, Whole Blood 335 mg/dL (60-115)
[2024-06-04] MEDS: Insulin Lispro 100 UNIT/ML 3 ML VIAL SUBCUT ×2 (08:22→12:09)
[2024-06-04] MEDS: OXcarbazepine 300 MG TABLET PO (08:23)
[2024-06-04] MEDS: Atorvastatin Calcium 20 MG TABLET PO (08:23)
[2024-06-04] MEDS: Famotidine 20 MG TABLET PO (08:23)
[2024-06-04] MEDS: Insulin Glargine,Hum.rec.anlog 100 UNIT/ML 10 ML VIAL 10 UNIT SUBCUT (08:23)
[2024-06-04] MEDS: 0.9 % Sodium Chloride Flush 3 ML SYRINGE IVFLUSH (08:24)
[2024-06-04] MEDS: Fluticasone Propionate Nasal 16 GM SPRAY 1 SPRAY NOSTRIL-B (08:28)
[2024-06-04] MEDS: Gabapentin 300 MG CAPSULE PO (08:29)
[2024-06-04] MEDS: Albuterol Sulfate 90 MCG 8 GM INHALER 2 PUFF INHALE (08:33)
[2024-06-04] MEDS: glipiZIDE 5 MG TABLET PO (09:13)
--- NOTE | 2024-06-04 09:29 | MHC.CM.PN ---
Patient is discharged to home self care via BLS.
[2024-06-04] MEDS: metFORMIN HCl ER 500 MG TAB.ER.24H 1000 MG PO (09:53)
[2024-06-04 11:46] LABS: Glucose, Whole Blood 342 mg/dL (60-115)
[2024-06-04 12:00] VITALS: BP 142/83; PULSE 94; RESP 18; TEMP 36.7; O2SAT 92
[2024-06-04 13:16] LABS: Glucose, Whole Blood 343 mg/dL (60-115)
== END 2024-06-04 13:17 | disposition home or self-care (01) | DRG 247 ==
LOC: HO.ED 05-31 04:14 → HO.EDOVER 05-31 05:40 → HO.S3 05-31 13:22
PROVIDERS: Physician Assistant; Physician Assistant Medical; Admitting Provider Student in an Organized Health Care Education/Training Program; Emergency Provider Emergency Medicine; PCP Internal Medicine; Visit Provider Nurse Practitioner Acute Care
DX: K56.601 Complete intestinal obstruction, unspecified as to cause (principal); E66.2 Morbid (severe) obesity with alveolar hypoventilation; Z93.0 Tracheostomy status; J45.20 Mild intermittent asthma, uncomplicated; E11.65 Type 2 diabetes mellitus with hyperglycemia; Z68.37 Body mass index [BMI] 37.0-37.9, adult; Z79.4 Long term (current) use of insulin; Z79.84 Long term (current) use of oral hypoglycemic drugs; Z79.899 Other long term (current) drug therapy
CPT/HCPCS: 36415; 74177; 80048; 80053; 81001; 82248; 82947; 83605; 83690; 85025; 87040; 87086; 87088; 87186; 93005; 99285; J0696; J1171; J2185; J2270; J2405; J2765; J7120; Q9967

== ENCOUNTER → 2024-05-30 23:29 | Outpatient (BNV) | payer OTHER, SELFPAY | PROVIDERS: Admitting Provider Student in an Organized Health Care Education/Training Program; Emergency Provider Emergency Medicine; PCP Internal Medicine; Visit Provider Internal Medicine Cardiovascular Disease | DX: R94.31 Abnormal electrocardiogram [ECG] [EKG] (principal); R10.9 Unspecified abdominal pain | CPT/HCPCS: 93010 ==

== ENCOUNTER → 2024-05-31 00:09 | Outpatient (BNV) | payer OTHER, SELFPAY | PROVIDERS: Emergency Provider Emergency Medicine; Visit Provider Radiology Neuroradiology | DX: K56.609 Unspecified intestinal obstruction, unspecified as to partial versus complete obstruction (principal); K43.9 Ventral hernia without obstruction or gangrene | CPT/HCPCS: 74177 ==

== ENCOUNTER → 2024-05-31 05:20 | Outpatient (BNV) | payer OTHER, SELFPAY | PROVIDERS: Admitting Provider Student in an Organized Health Care Education/Training Program; Emergency Provider Emergency Medicine; PCP Internal Medicine; Visit Provider Surgery | DX: K56.609 Unspecified intestinal obstruction, unspecified as to partial versus complete obstruction (principal) | CPT/HCPCS: 99222; 99232; 99499 ==

== ENCOUNTER → 2024-05-31 05:20 | Outpatient (BNV) | payer OTHER, SELFPAY | PROVIDERS: Admitting Provider Student in an Organized Health Care Education/Training Program; Emergency Provider Emergency Medicine; Visit Provider Physician Assistant | DX: K56.609 Unspecified intestinal obstruction, unspecified as to partial versus complete obstruction (principal); E11.65 Type 2 diabetes mellitus with hyperglycemia | CPT/HCPCS: 99232; 99499 ==

== ENCOUNTER → 2024-05-31 05:20 | Outpatient (BNV) | payer OTHER, SELFPAY | PROVIDERS: Admitting Provider Student in an Organized Health Care Education/Training Program; Emergency Provider Emergency Medicine; PCP Internal Medicine; Visit Provider Internal Medicine | DX: R82.71 Bacteriuria (principal); K56.609 Unspecified intestinal obstruction, unspecified as to partial versus complete obstruction | CPT/HCPCS: 99222 ==

== ENCOUNTER 2024-07-10 14:56 | Outpatient (AMB) | payer OTHER, SELFPAY ==
--- NOTE | 2024-07-10 15:09 | A.OFFPC_ITS ---
Vital Signs 07/10/24 15:10 Height 5 ft 3 in Weight 223 lb BMI 39.5 BP 120/76 Blood Pressure Location Lt brachial Position Sitting Pulse 108 H Pulse Source Pulse Oximeter Pulse Oximetry (%) 90 L Oxygen Delivery Method Room Air Intake Visit Reasons: establish care Check Processing Clerk Required: No Accompanied by: Daughter Allergies pantoprazole Allergy (Mild, Verified 07/10/24 16:10) Redness of Skin Medication List - Last Reconciled 07/10/24 by Flynn Granado MD albuterol sulfate 90 mcg/actuation (Ventolin HFA) 2 puffs inhalation Q4H PRN atorvastatin 20 mg PO DAILY clonazepam 1 mg PO BID PRN escitalopram oxalate 20 mg PO BEDTIME famotidine 20 mg PO BID fluticasone propionate 50 mcg/actuation 1 spray intranasal DAILY gabapentin 300 mg PO BID glipizide 5 mg PO DAILY ibuprofen 200 mg PO Q8H PRN insulin glargine (Lantus Solostar U-100 Insulin) 20 units subcut DAILY insulin lispro 1 sliding scale dose subcut TIDAC lurasidone 60 mg PO BEDTIME metformin ER 1,000 mg PO BID mometasone-formoterol 200-5 mcg/actuation (Dulera) 2 puffs inhalation BID oxcarbazepine 300 mg PO BID promethazine 25 mg PO DAILY PRN trazodone 150 mg PO BEDTIME PRN Tobacco use date assessed: 07/10/24 Dental Screening Dental Screen Date: 07/10/24 Did you have a dental visit in the last 12 months?: Yes Did you have a dental problem in the last 6 months where you did not have access to dental care?: No Was dental information given to patient?: Patient has dentist HPI establish care HPI Details Patient comes in today to establish care - she is a new patient to the practice Her previous PCP was Dr. 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 following a cardiac arrest a few years ago She currently has home oxygen but uses it only on demand and she continues to follow up with pulmonary at [place] regularly for tracheostomy care No nausea/vomiting, no abdominal pain No change in bowel habits noted She needs both her long-acting and rapid acting insulin Rx refilled and would also like to get a prescription for a new glucometer as she states that her old unit broke down a while back and she has been using her 's glucometer lately to keep track of her blood sugar 12.7% [facility] Medical History (Updated 07/11/24 @ 05:20 by Flynn Granado MD) Obesity (BMI 30-39.9) Bipolar depression Anxiety Insomnia Tracheostomy present Pure hypercholesterolemia Diabetes mellitus Asymptomatic bacteriuria Morbid obesity Partial small bowel obstruction Tracheostomy dependent History of cardiac arrest Wound drainage Takotsubo cardiomyopathy Kidney stones UTI (urinary tract infection) Bipolar 1 disorder Asthma Substance abuse Surgical History History of tracheostomy S/P ureteral stent placement H/O exploratory laparotomy S/P cholecystectomy Family History Mother No pertinent family history Father No pertinent family history Social History Household Members: Spouse Household Members Other:: 1 Housing: Apartment Do you presently have visiting nurse or other home services: No Alcohol intake: former Comment: stayed in ed Patient Tobacco Use Status: Never used Tobacco e-Cigarette/Vaping Use: Never Used Second Hand Smoke Exposure: Yes Advance Directives Date on File: 02/04/23 service: No Current occupational status: disabled Cognitive needs: No Hearing needs: No Vision needs: Yes Questionnaire PHQ-9 Over the last 2 weeks, how often have you been bothered by any of the following problems? 1. Little interest or pleasure in doing things: several days 2. Feeling down, depressed, or hopeless: several days 3. Trouble falling or staying asleep, or sleeping too much: not at all 4. Feeling tired or having little energy: several days 5. Poor appetite or overeating: not at all 6. Feeling bad about yourself - or that you are a failure or have let yourself or your family down: several days 7. Trouble concentrating on things, such as reading the newspaper or watching television: several days 8. Moving or speaking so slowly that other people could have noticed. Or the opposite - being so fidgety or restless that you have been moving around a lot more than usual: not at all 9. Thoughts that you would be better off or of hurting yourself in some way: not at all Total score: 5 Depression Screening Interpretation: Positive Depression Screening Follow-up: Existing condition and In treatment Depression Screening Done: Yes 42731 - PHQ-9 Billing: Yes Source: Developed by Drs. Aleksey Bueno, Rebekah Campos, Jeremy Kimball and colleagues, with an educational ignacio from [employer]. Thrive Questionnaire Date Thrive assessed: 07/10/24 I am a: Patient What is your living situation today?: I have a steady place to live Within the past 12 months, did the food you bought not last and you didn't have the money to get more?: Sometimes True Within the past 12 months, did you worry whether your food would run out before you got money to buy more?: Often true Do you have trouble paying for medicines?: No Do you have trouble getting transportation to medical appointments?: No Do you have trouble paying your heating and electricity bill?: No Do you have trouble taking care of your child, family member or friend?: No Do you have trouble with day-to-day activities such as bathing, preparing meals, shopping, managing finances, etc.?: Yes Are you currently unemployed and looking for a job?: I choose not to answer this question Are you interested in more education?: Yes Please select the resources that you would like help with: Housing/Detention, Food, Transportation, Utilities, Care for elder or disabled, Daily support and Education Currently or been in a relationship where the following occur: No concerns reported THRIVE Score: 2 AUDIT C Alcohol Use Questionnaire (AUDIT-C) 1. How often do you have a drink containing alcohol?: Never 3. How often do you have six or more drinks on one occasion?: Never Total Score: 0 Score Reviewed/Action Taken: Yes AILYN-7 AMB Questionnaire AILYN-7 Date AILYN - 7 assessed: 07/10/24 Feeling nervous, anxious, or on edge: 0 = Not at all Not being able to stop or control worryin = Not at all Worrying too much about different things: 0 = Not at all Trouble relaxin = More than half the days Being so restless that it is hard to sit still: 3 = Nearly every day Becoming easily annoyed or irritable: 1 = Several days Feeling afraid as if something awful might happen: 0 = Not at all Total AILYN-7 score (0-4 normal; 5-9 mild; 10-14 moderate; 15-21 severe): 6 Source: Developed by Drs. Aleksey Bueno, Rebekah Campos, Jeremy Kimball and colleagues, with an educational ignacio from [employer]. Review of Systems Const Denies chills, Denies fatigue, Denies fever(s) and Denies headache(s) ENT Details: (+) permanent tracheostomy present Denies dysphagia, Denies dizziness, Denies otalgia, Denies headache(s), Denies neck pain, Denies odynophagia and Denies sore throat Card Denies chest pain, Denies palpitations and Denies dyspnea Resp Denies chest congestion, Denies cough and Denies dyspnea GI Denies abdominal pain, Denies constipation, Denies dysphagia, Denies heartburn, Denies diarrhea, Denies nausea, Denies odynophagia and Denies vomiting Denies difficulty voiding, Denies nocturia and Denies dysuria Musc Reports back pain and Denies neck pain Skin/Breast Denies rash Neuro Denies dizziness and Denies headache(s) Psych Reports anxiety Endo Denies fatigue and Denies palpitations Physical exam (Primary Care) Vital Signs: Last Vital Signs Pulse 108 H 07/10/24 15:10 BP 120/76 07/10/24 15:10 Pulse Ox 90 L 07/10/24 15:10 Oxygen Delivery Method Room Air 07/10/24 15:10 BMI result Body Mass Index 39.5 Tobacco/Smoking Status: Tobacco use Status Tobacco use date assessed 07/10/24 07/10/24 15:12 Patient Tobacco Use Status Never used Tobacco 07/10/24 15:12 e-Cigarette/Vaping Use Never Used 07/10/24 15:12 PHQ-9: PHQ-9 Score PHQ-9: Total score 5 07/10/24 16:21 Depression Screening Interpretation: Positive Depression Screening Follow-up: Existing condition and In treatment Thrive Assessment: Date of Thrive Assessment Date Thrive assessed 07/10/24 07/10/24 15:12 Currently or been in a relationship where the following occur: No concerns reported Const General: no acute distress and alert HENMT Ears: TM's normal bilaterally and EAC's normal Throat: Yes posterior oropharynx normal and Yes tonsils normal (no TP congestion) Neck Neck: Yes supple, No lymphadenopathy and Yes tracheostomy present Resp Auscultation: clear to auscultation bilaterally, no rales and no wheezes Cardio Rate: regular rate Rhythm: regular rhythm Heart sounds: no murmurs GI Palpation (GI): Soft to palpation and nontender Auscultation: normal bowel sounds General: Yes no CVA tenderness Back/Spine/Pelvis Back: no CVA tenderness Thoracic/Lumbar Spine: lumbar spinal tenderness (mild) Skin Rashes: no rashes Extrem General: Yes no clubbing, cyanosis or edema Results AMB Hemoglobin A1c AMB Hemoglobin A1c 12.7 % Last Edit by RE Cervantes on 07/10/24 16:23 Results Reviewed Results Reviewed: Laboratory Last Values Hgb A1c (Clinic) 12.7 % (4.0-6.0) H 07/10/24 16:22 Coding Level of Care Code New Pt Level 4 (27192) Complex EM visit Add On G2211 Diagnoses Type 2 diabetes mellitus with hyperglycemia, with long-term current use of insulin E11.65; Z79.4 Diabetes mellitus type: type 2 Diabetes mellitus long term care administrator insulin use: with care home use Diabetes mellitus complication status: with hyperglycemia Pure hypercholesterolemia E78.00 Moderate persistent asthma, unspecified whether complicated J45.40 Asthma severity: moderate Asthma persistence: persistent Asthma complication type: unspecified Tracheostomy present Z93.0 Insomnia, unspecified type G47.00 Insomnia type: unspecified Anxiety F41.9 Bipolar depression F31.9 Obesity (BMI 30-39.9) E66.9 Additional Codes PHQ-9 - 56149 - PHQ-9 Billing: Yes ([id number]) Assessment & Plan Assessment & Plan (1) Diabetes mellitus: Code(s): E11.9 - Type 2 diabetes mellitus without complications Category: Medical Qualifiers: Diabetes mellitus type: type 2 Diabetes mellitus care home insulin use: with care home use Diabetes mellitus complication status: with hyperglycemia Qualified Code(s): E11.65 - Type 2 diabetes mellitus with hyperglycemia; Z79.4 - intermediate manager (current) use of insulin Plan: Patient is in off his HgbA1c today is at 12.7% - goal is at least <7.0% Patient states that her significantly elevated HgbA1c today comes as a big surprise for her as she thought her diabetes was fairly well-controlled although she's had high blood sugar readings in the mornings lately Will have her go and get some labs done ZAHIRA to assess her overall condition, including her renal function Will have her continue for now on all of her current Rx, including Lantus 20 units Q HS, Insulin Lispro 2 to 20 units TID with meals per sliding scale, Metformin 1000 mg BID and Glipizide 5 mg QD Patient is advised that we will reach out to her if any of her labs come back with urgent or concerning results that require immediate attention or intervention (2) Pure hypercholesterolemia: Code(s): E78.00 - Pure hypercholesterolemia, unspecified Category: Medical Plan: Reinforced low cholesterol diet Continue Atorvastatin 20 mg QD Will have patient recheck her fasting lipids ZAHIRA as well (3) Asthma: Code(s): J45.909 - Unspecified asthma, uncomplicated Category: Medical Qualifiers: Asthma severity: moderate Asthma persistence: persistent Asthma complication type: unspecified Qualified Code(s): J45.40 - Moderate persistent asthma, uncomplicated Plan: Continue Dulera 200-5 mcg 2 inhalations BID and Albuterol HFA 1 to 2 inhalations Q 6 hours PRN Follow up with pulmonary as scheduled (4) Tracheostomy present: Code(s): Z93.0 - Tracheostomy status Category: Medical Plan: Follow up with [place] [facility] as scheduled for continuing/routine tracheostomy care and change (5) Insomnia: Code(s): G47.00 - Insomnia, unspecified Category: Medical Qualifiers: Insomnia type: unspecified Qualified Code(s): G47.00 - Insomnia, unspecified Plan: Sleep hygiene reinforced Continue Trazodone 150 mg Q HS PRN (6) Anxiety: Code(s): F41.9 - Anxiety disorder, unspecified Category: Medical Plan: Continue Escitalpram 20 mg QD and Clonazepam 1 mg BID PRN Follow up with psychiatry as scheduled (7) Bipolar depression: Code(s): F31.9 - Bipolar disorder, unspecified Category: Medical Plan: Continue Escitalopram 20 mg QD, Gabapentin 300 mg BID, Oxcarbazepine 300 mg BID and Lurasidone 60 mg Q HS Follow up with psychiatry as scheduled (8) Obesity (BMI 30-39.9): Code(s): E66.9 - Obesity, unspecified Category: Medical Plan: Reinforced diet; exercise and weight loss are not practical in this patient with her multiple comorbidities and physical issues Patient has inquired about possibly being started on a GLP-1 to help her lose weight Have advised her that we will have her go get some labs done first to assess her overall condition and if it is appropriate, we can start her on one of these at her next follow-up appointment Plan Follow-up in 3 months Orders: Orders Complete Blood Count Auto Diff 07/10/24 D64.9 - Anemia, unspecified Microalbumin, Random (w Creat) 07/10/24 E11.9 - Type 2 diabetes mellitus without complications Glutamic acid decarboxylase Ab 07/10/24 E11.9 - Type 2 diabetes mellitus without complications Comprehensive [place]. Panel Fast 07/10/24 E78.00 - Pure hypercholesterolemia, unspecified Lipid Panel 07/10/24 E78.00 - Pure hypercholesterolemia, unspecified TSH reflex Free T4 07/10/24 E78.00 - Pure hypercholesterolemia, unspecified UA CC w/rflx Micro + Cult 07/10/24 R30.0 - Dysuria Vitamin B12 and Folate 07/10/24 E53.8 - Deficiency of other specified B group vitamins Vitamin D 25-OH Total 07/10/24 E55.9 - Vitamin D deficiency, unspecified AMB Hemoglobin A1c 07/10/24 Z13.9 - Encounter for screening, unspecified C Peptide 07/10/24 E11.9 - Type 2 diabetes mellitus without complications Medications: New blood-glucose meter (FreeStyle Lite Meter kit) As directed 1 ea 0RF E11.9 - Type 2 diabetes mellitus without complications blood sugar diagnostic (FreeStyle Lite Strips) As directed 3 times a day 100 ea 12RF E11.9 - Type 2 diabetes mellitus without complications lancets (FreeStyle Lancets) As directed 3 times a day 100 ea 12RF E11.9 - Type 2 diabetes mellitus without complications Changed From insulin glargine (Lantus Solostar U-100 Insulin) 20 units subcut DAILY To insulin glargine (Lantus Solostar U-100 Insulin) 20 units (0.2 mL) subcut DAILY 30 days 6 mL 3RF From insulin lispro 1 sliding scale dose subcut TIDAC To insulin lispro 2 to 20 units TID with meals per sliding scale 1 sliding scale dose subcut TIDAC 30 days 15 mL 3RF
[2024-07-10 15:10] VITALS: BP 120/76; PULSE 108; O2SAT 90; BMI 39.5
--- OUTSIDE RECORDS SUMMARY | 2024-07-10 18:10 | XMS_ITS | Clinical Summary ---
Author Organization [facility] Address [address] [place] [address] Phone Care Team Providers Care Dynamometer Tuner Name Role Phone Unavailable Primary Care Provider Unavailabl e Allergies No known active allergies Medications albuterol HFA (PROVENTIL HFA;VENTOLIN HFA) 108 (90 Base) MCG/ACT inhaler Inhale 2 puffs every 6 (six) hours if needed Active atorvastatin (LIPITOR) 10 MG tablet Take 10 mg by mouth 1 (one) time each day Active clonazePAM (KlonoPIN) 0.5 MG tablet Take 0.5 mg by mouth in the morning and 0.5 mg in the evening. Active escitalopram (LEXAPRO) 20 MG tablet Take 20 mg by mouth 1 (one) time each day Active fluticasone-keyur meterol (ADVAIR DISKUS) 100-50 MCG/DOSE diskus inhaler Inhale 1 puff 2 (two) times a day Rinse mouth with water after use to reduce aftertaste and incidence of candidiasis. Do not swallow. Active glipiZIDE (GLUCOTROL) 10 MG tablet Take 10 mg by mouth in the morning and 10 mg in the evening. Take before meals. Active ibuprofen (ADVIL,MOTRIN) 800 MG tablet Take 800 mg by mouth every 6 (six) hours if needed Active naproxen (NAPROSYN) 250 MG tablet Take 250 mg by mouth in the morning and 250 mg in the evening. Take with meals. Active ondansetron ODT (ZOFRAN-ODT) 4 MG dispersible tablet Take 4 mg by mouth every 8 (eight) hours if needed Active OXcarbazepine (TRILEPTAL) 150 MG tablet Take 150 mg by mouth in the morning and 150 mg in the evening. Active oxyCODONE-aceta minophen (PERCOCET) 10-325 MG per tablet Take 1 tablet by mouth every 4 (four) hours if needed Active traZODone (DESYREL) 50 MG tablet Take 50 mg by mouth every night Active miconazole (MICOTIN) 2 % cream Apply topically 2 (two) times a day Active insulin lispro (HumaLOG) 100 UNIT/ML injection Inject under the skin 3 (three) times a day before meals Active insulin glargine (LANTUS) 100 UNIT/ML injection Inject under the skin every night Active QUEtiapine (SEROquel) 100 MG tablet Take 100 mg by mouth every night Active Ascorbic Acid (vitamin C) 250 MG tablet Take 250 mg by mouth 1 (one) time each day Active arformoterol (BROVANA) 15 MCG/2ML nebulizer solution Take 15 mcg by nebulization in the morning and 15 mcg before bedtime. Active aspirin 81 MG chewable tablet Chew 81 mg 1 (one) time each day Active bisacodyl (FLEET) 10 MG/30ML enema Insert 10 mg into the rectum 1 (one) time Active budesonide (PULMICORT) 0.25 MG/2ML nebulizer solution Take 0.25 mg by nebulization 1 (one) time each day Rinse mouth with water after use to reduce aftertaste and incidence of candidiasis. Do not swallow. Active furosemide (LASIX) 40 MG tablet Take 40 mg by mouth in the morning and 40 mg in the evening. Active lidocaine (LIDODERM) 5 % patch Apply 1 patch topically 1 (one) time each day Remove & discard patch within 12 hours or as directed by MD. Active thiamine (VITAMIN B-1) 100 MG tablet Take 100 mg by mouth 1 (one) time each day Active Active Problems Problem Noted Date Diagnosed Date Hyperkalemia 04/22/2021 Social History Tobacco Use Types Packs/Day Years Used Date Smoking Tobacco: Never Assessed Comments Unknown Sex and Gender Information Value Date Recorded Sex Assigned at Not on file Legal Sex Female 11:05 AM EDT Gender Identity Not on file Sexual Orientation Not on file Plan of Treatment Health Maintenance Due Date Last Done Comments Breast Cancer Screening 1970 Hepatitis B Vaccine (1 of 3 - 19+ 3-dose series) 11/18 Colorectal Cancer Screening: Annual FOBT 2018 Colorectal Cancer Screening: Colonoscopy 2018 Colorectal Cancer Screening: Sigmoidoscopy 2018 Pneumococcal Vaccine: 50+ Years (1 of 1 - PCV) 020 Influenza Vaccine (Season Ended) 2024 Insurance [facility] Medicaid [facility] Medicaid
--- OUTSIDE RECORDS SUMMARY | 2024-07-10 18:10 | XMS_ITS | Clinical Summary ---
Author Organization [facility] [address] [place] [address] [place] [address] [place] [id number] Phone Care Team Providers Care [employer] Name Role Phone Megan Anderson MD Primary Care Prov ider Allergies Active Allergy Reactions Criticality Noted Date Comments Other 08/31/2007 Pantoprazole Rash High 04/11/2024 Other Reaction(s): Blanching of skin Rash on side of faceBlanching of lower extremities Propranolol 07/23/2022 Medications albuterol 2.5 mg /3 mL (0.083 %) nebulizer solution Inhale 3 mL (2.5 mg total) by mouth every 4 (four) hours if needed for wheezing. 12/31/19 23 Active blood-glucose meter kit 4 (four) times a day. Use to check blood sugars 01/08/20 23 Active cetirizine (ZyrTEC) 10 mg capsule Take by mouth. Active clonazePAM (KlonoPIN) 1 mg tablet 2 (two) times a day. 06/12/19 22 Active EPINEPHrine (EpiPen 2-Michael) 0.3 mg/0.3 mL injection Inject 0.3 mL (0.3 mg total) into the thigh if needed for anaphylaxis. 02/17/20 23 Active escitalopram (LEXAPRO) 20 mg tablet Take 1 tablet (20 mg total) by mouth 1 (one) time each day. 05/29/19 22 Active FREESTYLE LANCETS MISC 1 EA 4 (four) times a day. to check blood sugars 01/25/20 18 Active glipiZIDE (GLUCOTROL) 5 mg tablet Take 1 tablet (5 mg total) by mouth 1 (one) time each day. 09/23/19 24 Active blood sugar diagnostic (FreeStyle Lite Strips) test strip 1 each 4 (four) times a day. to check blood sugars 11/02/19 20 Active insulin glargine (Lantus Solostar U-100 Insulin) 100 unit/mL (3 mL) injection pen Inject 20 Units under the skin 1 (one) time each day. 09/23/19 24 Active lurasidone (LATUDA) 40 mg tablet Take 1.5 tablets (60 mg total) by mouth. Active OXcarbazepine (TRILEPTAL) 300 mg tablet Take 1 tablet (300 mg total) by mouth 2 (two) times a day. Active tiZANidine (ZANAFLEX) 4 mg tablet Take 1 tablet (4 mg total) by mouth 1 (one) time each day if needed for muscle spasms. 01/08/20 23 Active traZODone (DESYREL) 100 mg tablet Take 1.5 tablets (150 mg total) by mouth at bedtime. Active mometasone-formo terol (DULERA 200) 200-5 mcg/actuation inhaler Inhale 2 puffs by mouth 2 (two) times a day. 11/03/19 24 Active gabapentin (NEURONTIN) 300 mg capsule Take 1 capsule (300 mg total) by mouth 2 (two) times a day. 180 each 1 02/02/20 24 025 Active famotidine (PEPCID) 20 mg tablet Take 1 tablet (20 mg total) by mouth 2 (two) times a day. 180 each 1 02/02/20 24 025 Active atorvastatin (LIPITOR) 20 mg tablet TAKE 1 TABLET BY MOUTH EVERY DAY 90 tablet 1 04/10/19 25 Active albuterol HFA (Ventolin HFA) 90 mcg/actuation inhalerIndicatio ns:Moderate persistent asthma without complication Inhale 2 puffs by mouth every 6 (six) hours if needed for wheezing. cough 6.7 g 2 04/13/19 25 Active promethazine (PHENERGAN) 25 mg tablet Take 1 tablet (25 mg total) by mouth 1 (one) time each day if needed for nausea. 90 tablet 04/13/19 25 Active BD Insulin Syringe Ultra-Fine 1 mL 31 gauge x 5/16 syringe USE DIRECTED 4 TIMES A DAY 200 each 2 04/13/19 25 Active metFORMIN XR (GLUCOPHAGE-XR) 500 mg 24 hr tablet TAKE 2 TABLETS BY MOUTH TWO TIMES A DAY 360 tablet 1 05/17/19 25 Active insulin lispro (HumaLOG KwikPen) 100 unit/mL injection pen Inject 4 Units under the skin 3 (three) times a day with meals. ). Per sliding scale: BG less than 150: no treatment, BG 150-199: 2u BG 200-249: 4u, BG 250-299: 6u, BG 300-349: 8u, BG 350-399: 10u, BG Over 399: 12u and call MDInject 1 Dose under the skin 3 (three) times a day with meals. ). Per sliding scale: BG less than 150: no treatment, BG 150-199: 2u BG 200-249: 4u, BG 250-299: 6u, BG 300-349: 8u, BG 350-399: 10u, BG Over 399: 12u and call MD 15 mL 1 06/12/19 25 Active fluticasone propionate (FLONASE) 50 mcg/actuation nasal spray ADMINISTER 1 SPRAY INTO EACH NOSTRIL 1 TIME EACH DAY. 32 mL 07/11/19 25 Active fluticasone propionate (FLONASE) 50 mcg/actuation nasal spray Administer 1 spray into each nostril 1 (one) time each day. 16 g 1 04/13/19 25 025 Discontinued Active Problems Problem Noted Date Diagnosed Date Moderate persistent asthma 09/23/2023 Retained intrauterine contraceptive device (IUD) 06/07/2022 Overview (01/11/2024): Last Assessment & Plan: IUD removal The patient is a 51 yr. who had Paragard in place since 1994. IUD Type Paragard IUD Removal Reason Vitals: 06/07/22 1330 BP: 115/72 Pulse: 66 Resp: 16 Weight: 217 lb 6.4 oz (98.6 kg) Height: 5' 3 (1.6 m) The IUD removal process is discussed with the patient, including risk of pain, bleeding, and difficulties with removal. Procedure: The patient was positioned on the table in a lithotomy position. A speculum was inserted into the vagina and the cervix and IUD strings were visualized. The IUD strings were grasped. String were initally removed. Remainder of IUD device noted at the cervical os. IUD removed, but with one arm presumably retained, not present. The patient tolerated the procedure well. She declined additional attempt to remove other arm. She did agreed to having an US to determine location and if not bothering, may decide to leave in place. This is reasonable. No problem-specific Assessment & Plan notes found for this encounter. Medication and lab orders: No orders of the defined types were placed in this encounter. Other orders: SONO PELVIS COMPLETE Return in 1 year (on 06/08/2023) for ANNUAL EXAM 1 YEAR. YANET ADEN MD Renal stone 08/05/2021 DVT of deep femoral vein, right ([facility] V24, CM /[facility] V28) 05/28/2021 Assessment & Plan (02/02/2024 12:11 PM EST): History of DVT, and PE, managed with Apixaban, however patient discontinue the medication a couple of months ago in order to take Ibuprofen for a leg pain. Would like an opinion of hematology regarding restart the medication. A referral was placed today. Orders: Ambulatory referral to Hematology; Future Hyperlipidemia LDL goal <100 10/04/2018 Assessment & Plan (02/02/2024 12:11 PM EST): Given the patients cardiac risk profile, the patient requires an LDL cholesterol of less than 70. I have instructed the patient on the principles of a low cholesterol diet and the importance of regular exercise. Continue Atorvastatin 20mg day. Elevated alkaline phosphatase level 10/02/2018 Type 2 diabetes mellitus wit hout complication, without long-term current use of insulin ([facility] V24, [facility] V28) 01/20/2018 Assessment & Plan (02/02/2024 12:11 PM EST): Poor control of diabetes, last A1C: 9.7 in June. Pending to repeat labs. We will continue insulin, metformin, glipizide for now. Patient will follow up in 4 months. Orders: Comprehensive metabolic panel; Future Hemoglobin A1c; Future Lipid panel with reflex to direct LDL; Future Microalbumin creatinine urine ratio; Future Hypertension 11/01/2012 Assessment & Plan (02/02/2024 12:11 PM EST): The patient's antihypertensive regimen is based on their underlying medical issues. At the time of this visit, the blood pressure is well controlled only on a diet. The patient is instructed to follow a low sodium diet and to follow up in 4 months. Narcotic dependence, in vasu ssion ([facility] V24, [facility] V28) 11/02/2011 Overview (01/11/2024): On methadone Bilateral cataracts 06/07/2011 Anemia 10/19/2009 Esophageal reflux 09/19/2006 Overview (01/11/2024): 05/04/2019--- EGD was visually normal on treatment with famotidine 40 mg once a day in the morning. Asthma 05/12/2005 Assessment & Plan (02/02/2024 12:11 PM EST): Well controlled on Dulera, requirements of rescue inhaler have decreased. ACT 18. Follows with pulmonary. Has a trach collar. Orders: albuterol HFA (Ventolin HFA) 90 mcg/actuation inhaler; Inhale 2 puffs by mouth every 6 (six) hours if needed for wheezing. cough Depressive disorder 05/12/2005 Encounters Date Type Department Care Team Description 06/29/2024 Telephone Adult Medicine [address] [phone] Megan Anderson MD Forms/questionnaires ([facility] - Health Status Report) 06/11/2024 Telephone Adult Medicine [address] [phone] Caron Lea MA from Last 3 Months Immunizations Name Administration Dates Next Due Influenza Quadravalent, MDCK , 0.5ml, preservative free (Flucelvax) 6mo and older 12/03/2021,01/06/2018 Influenza Quadravalent, MDCK , 0.5ml, with preservative (Flucelvax) 6mo and older 12/26/2016 Influenza trivalent, 0.5mL, preservative free (Fluarix; FluLaval; Fluzone) ages 6mo and older (Afluria) 3 years and older 01/28/2016,12/18/2014,12/16/2013,2012,12/09/2011,12/13/2008 Influenza trivalent, with preservative (Fluzone; Afluria) 6mo and older 11/26/2019,11/13/2019,11/04/2018 PPD Test 08/30/2018 [employer] SARS-CoV-2 COVID-19, mRNA, LNP-S, preservative free 04/20/2020,04/03/2020 Td Tetanus diptheria (Tdvax) 7yo and older 04/14/2006 Tdap Tetanus diptheria acell ular pertussis (Boostrix; Adacel) 7yo and older 01/06/2018 Surgical History Surgery Date Site/Laterality Comments OTHER SURGICAL HISTORY PROCEDURE: SD ARTHRODESIS POSTERIOR SPINAL DFRM <6 VRT SGM UPPER GASTROINTESTINAL ENDOSCOPY 05/04/2019 PROCEDURE: SD UPPER GI ENDOSCOPY PERFORMED; COMMENT: Visually normal on treatment with famotidine 40 mg every morning. CYSTOSCOPY 06/2021 PROCEDURE: SD CYSTOURETHROSCOPY; COMMENT: Cystoscopy and stent placement for renal stone Dr. Agosto Medical History Medical History Date Comments Unspecified asthma(493.90) 05/12/2005 DX:Un specified asthma(493.90) Backache, unspecified 05/12/2005 DX:Backach e, unspecified Depressive disorder, not els ewhere classified 05/12/2005 DX:Depressive disorder, not elsewhere classified Pneumonia 04/10/09 DX:Pneumonia; CO MMENT: right lower lobe infiltrate Anemia 10/19/2009 DX:Anemia S/P spinal fusion 04/28/2010 DX:S/P spinal fusion Esophageal reflux DX:Esophageal reflux Heart disease, unspecified DX:He art disease, unspecified Unspecified essential hypertension DX:Unspecified essential hypertension PEA (Pulseless electrical ac tivity) ([facility] V24, [facility] V28) 11/06/2020 DX:PEA (Pulseless electrica l activity) ([facility]); COMMENT: Found at home PEA and apneic [facility] admit 11/01/20 Pulmonary embolism (CMS/HCC V24, CMS/HCC V28) 05/28/2021 DX:Pulmonary embolism (HCC) 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 DX:Necr otizing pancreatitis; COMMENT: Enterocutanous fistulae in 2020 Family History Medical History Relation Name Comments Cataracts Father Colon cancer Father Blindness Neg Hx Breast cancer Neg Hx Glaucoma Neg Hx Macular degeneration Neg Hx Ovarian cancer Neg Hx Pancreatic cancer Neg Hx Prostate cancer Neg Hx Strabismus Neg Hx Uterine cancer Neg Hx Relation Name Status Comments Father Social History Tobacco Use Types Packs/Day Years Used Date Smoking Tobacco: Former Cigarettes 0.8 8.2 0 03/14/1999 - 05/13/2007 Smokeless Tobacco: Former Tobacco Cessation:Counseling Given: Not Answered Alcohol Use Standard Drinks/Week Comments No 0 (1 standard drink = 0.6 oz pur e alcohol) Comments Unknown Sex and Gender Information Value Date Recorded Sex Assigned at Not on file Legal Sex Female 2:44 PM EST Gender Identity Not on file Sexual Orientation Not on file Obstetrics History Last Filed Vital Signs Vital Sign Reading Time Taken Comments Blood Pressure 135/81 02/02/2024 11:06 AM EST Pulse 97 02/02/2024 11:06 AM EST Temperature 35.8 ??C (96.4 ??F) 02/02/2024 11:[address] Respiratory Rate 17 02/02/2024 11:06 AM EST Oxygen Saturation - - Inhaled Oxygen Concentration - - Weight 104 kg (230 lb) 02/02/2024 11:06 AM EST Height 160 cm (5' 3 ) 02/02/2024 11:06 AM EST Body Mass Index 40.74 02/02/2024 11:06 AM EST Plan of Treatment Upcoming Encounters Date Type Department Care Team (Late st Contact Info) Description 08/02/2024 9:45 AM EDT Office Visit Adult Medicine [address] [phone] Megan Anderson MD [address] [place] [address] [phone] Health Maintenance Due Date Last Done Comments Breast Cancer Screening 1970 Diabetes: Annual Foot Exam 11/19/1979 Hepatitis A Vaccines (1 of 2 - Risk 2-dose series) 1988 Hepatitis B Vaccines (1 of 3 - 19+ 3-dose series) 1988 Pneumococcal Vaccine: 50+ Years (1 of 2 - PCV) 1988 Pneumococcal Vaccine: Pediatrics (0 to 5 Years) and At-Risk Patients (6 to 64 Years) (1 of 2 - PCV) 1988 Zoster Vaccines (1 of 2) 11/19/2019 Colorectal Cancer Screening: Colonoscopy 02/20/2022 HIV Screening 02/20/2022 Social Influencers of Health Screening 02/20/2022 Diabetes: Annual Urine Albumin-Creatinine Ratio (uACR) 02/21/2022 12/11/2004 Diabetes: Blood Sugar Control Test (HGBA1C) 01/05/2023 07/06/2022 COVID-19 Vaccine ( season) 2023 08/08/2020, 07/14/2020, 04/20/2020, Additional history exists Depression Screening 07/12/2024 07/13/2023 Diabetes: Annual GFR (Glomerular Filtration Rate) 09/22/2024 09/23/2023, 09/23/2023 Hypertension/CHF/CAD Annual BMP Blood Test 09/22/2024 09/23/2023, 09/23/2023 Influenza Vaccine (Season Ended) 2024 12/22/2022, 12/03/2021, 11/26/2019, Additional history exists Diabetes: Annual Retina Eye Exam 05/21/2025 05/21/2024, 05/19/2023 Cervical Cancer Screening: HPV 06/18/2027 06/17/2022 DTaP,Tdap,and Td Vaccines (3 - Td or Tdap) 01/07/2028 01/06/2018, 04/14/2006 Cholesterol Screening (Lipid Panel) 09/22/2028 09/23/2023, 09/23/2023 Hepatitis C Screening Completed 11/14/2008 HIB Vaccines Aged Out No longer eligi ble based on patient's age to complete this topic HPV Vaccines Aged Out No longer eligi ble based on patient's age to complete this topic IPV Vaccines Aged Out No longer eligi ble based on patient's age to complete this topic MMR Vaccines Aged Out No longer eligi ble based on patient's age to complete this topic Meningococcal ACWY Vaccine Aged Out N o longer eligible based on patient's age to complete this topic Meningococcal B Vaccine Aged Out No l onger eligible based on patient's age to complete this topic RSV Immunization Patients Under 20 months Aged Out No longer eligible based on patient's age to complete this topic Varicella Vaccines Aged Out No longer eligible based on patient's age to complete this topic Procedures Procedure Name Priority Date/Time Associated Diagnosis Comments EXTERNAL DIABETIC RETINA EYE EXAM 05/21/2024 ANNUAL BMP BLOOD TEST Routine 09/23/2023 LIPID PANEL Routine 09/23/2023 DEPRESSION SCREENING Routine 07/13/2023 HEMOGLOBIN A1C Routine 07/06/2022 HPV Routine 06/17/2022 HEPATITIS C SCREENING Routine 11/14/2008 URINE ALBUMIN CREATININE RATIO Routine 12/11/2004 from Last 3 Months or Most Recently Relevant to Health Maintenance Results * External Diabetic Retina Eye Exam Report (05/21/2024) Anatomical Region Laterality Modality Ultrasound Provider [facility] US PROCEDURES Final Result * Annual BMP Blood Test (09/23/2023) Annual BMP Blood Test abstracted [facility] Provider HEALTH MAINTENANCE Final Result * (ABNORMAL) Lipid panel (09/23/2023) LDL/HDL Ratio 5(A) 0 - 4 Triglycerides 418(A) 0 - 150 mg/dL Cholesterol 149 0 - 200 mg/dL HDL 33(A) >=40 mg/dL LDL Cholesterol 33 0 - 100 mg/dL Blood Venous blood specimen / Unknown [facility] Provider LAB BLOOD ORDERABLES Laila l Result * Depression Screening (07/13/2023) [facility] Depression Screening abstracted [facility] Provider HEALTH MAINTENANCE Final Result * (ABNORMAL) Hemoglobin A1c (07/06/2022) [facility] Hemoglobin A1C 9.7(A) <=6.5 % Blood Venous blood specimen / Unknown Result [facility] Provider LAB BLOOD ORDERABLES Laila l Result * Cervical Cancer Screening: HPV (06/17/2022) [facility] Cervical Cancer Screening: HPV negative, abstracted Result [facility] Provider HEALTH MAINTENANCE Final Result * Hepatitis C Screening (11/14/2008) [facility] Hepatitis C Screening abstracted [facility] Provider HEALTH MAINTENANCE Final Result * Urine Albumin Creatinine Ratio (12/11/2004) [facility] Urine Albumin Creatinine Ratio abstracted Result [facility] Provider HEALTH MAINTENANCE Final Result from Last 3 Months or Most Recently Relevant to Health Maintenance Insurance [facility] [employer] Care Teams [employer] Relationship Specialty Start Date End Date Megan Anderson MD [address] [place] [phone] PCP - General Internal Medicine 10/12/21
== END 2024-07-10 16:42 | disposition home or self-care (01) ==
PROVIDERS: PCP Internal Medicine; Visit Provider Internal Medicine
DX: Z13.9 Encounter for screening, unspecified (principal)

== ENCOUNTER → 2024-07-10 14:56 | Outpatient (BNVA) | payer OTHER, SELFPAY | PROVIDERS: PCP Internal Medicine; Visit Provider Internal Medicine | DX: Z76.89 Persons encountering health services in other specified circumstances (principal); E11.65 Type 2 diabetes mellitus with hyperglycemia; E78.00 Pure hypercholesterolemia, unspecified; J45.40 Moderate persistent asthma, uncomplicated; G47.00 Insomnia, unspecified; F41.9 Anxiety disorder, unspecified; F31.9 Bipolar disorder, unspecified; E66.9 Obesity, unspecified; Z68.39 Body mass index [BMI] 39.0-39.9, adult; Z79.4 Long term (current) use of insulin; Z79.899 Other long term (current) drug therapy; Z93.0 Tracheostomy status | CPT/HCPCS: 83036; 96127; 99202 ==

== ENCOUNTER 2024-08-11 08:01 | Inpatient (IN) | payer OTHER, SELFPAY ==
[2024-08-11] VITALS (15 sets, daily range): BP systolic 122–151; BP diastolic 74–99; PULSE 74–105; RESP 14–30; TEMP 36.3–36.9; O2SAT 90–99; BMI 35.9; BMI 40.0
--- NOTE | ~2024-08-11 | XR_ITS ---
CLINICAL HISTORY: shortness of breath 1 view chest x-ray Comparison: 03/25/2024 Findings: Portions of the exam are obscured by overlying material. No consolidation or effusion. Normal size heart. No acute fracture. IMPRESSION: 1. No acute findings. This document has been electronically signed by: Vinod Morejon MD on 08/11/2024 09:23:14
[2024-08-11] MEDS: Albuterol Sulfate 5 MG, Albuterol/Iprat 2.5/0.5MG 3 ML 3 ML INHALE (08:14)
--- NOTE | 2024-08-11 08:29 | ED.GENADULT ---
HPI - General Adult General Chief complaint: Dyspnea Stated complaint: SOB X1W,92% RA,HAS TRACH @ 2LPM PER EMS Time Seen by Provider: 08/11/24 08:29 History of Present Illness ED Provider: Mik JOEL narrative: The patient is a 53-year-old woman with a history of significant asthma. She also has a history of obesity and she has a tracheostomy. The patient says that she has had worsening shortness of breath over the last week. She has had some sputum production of a variety of colors. She does not feel that she has had a fever. She says she could not sleep last night because she was short of breath and could not get herself better with nebulizer treatments at home. Ultimately she called an ambulance and was brought here. Related Data Home Medications ?Medication ?Instructions ?Recorded ?Confirmed albuterol sulfate 90 mcg/actuation 2 puff inhalation Q4H PRN wheezing 02/02/23 07/10/24 aerosol inhaler (Ventolin HFA) clonazepam 1 mg tablet 1 mg PO BID PRN Anxiety 02/02/23 07/10/24 escitalopram oxalate 20 mg tablet 20 mg PO BEDTIME 02/02/23 07/10/24 famotidine 20 mg tablet 20 mg PO BID 02/02/23 07/10/24 fluticasone propionate 50 1 spray intranasal DAILY allergies 02/02/23 07/10/24 mcg/actuation nasal spray,suspension glipizide 5 mg tablet 5 mg PO DAILY 02/02/23 07/10/24 lurasidone 60 mg tablet 60 mg PO BEDTIME 02/02/23 07/10/24 metformin 500 mg tablet,extended 1,000 mg PO BID 02/02/23 07/10/24 release 24 hr oxcarbazepine 300 mg tablet 300 mg PO BID 02/02/23 07/10/24 trazodone 150 mg tablet 150 mg PO BEDTIME PRN Sleep 02/02/23 07/10/24 ibuprofen 200 mg tablet 200 mg PO Q8H PRN Pain 09/08/23 07/10/24 gabapentin 300 mg capsule 300 mg PO BID 03/26/24 07/10/24 promethazine 25 mg tablet 25 mg PO DAILY PRN nausea 03/26/24 07/10/24 atorvastatin 20 mg tablet 20 mg PO DAILY 05/31/24 07/10/24 mometasone-formoterol HFA 200 2 puff inhalation BID 05/31/24 07/10/24 mcg-5 mcg/actuation aerosol inhaler (Dulera) Previous Rx's ?Medication ?Instructions ?Recorded blood sugar diagnostic (FreeStyle #100 ea 07/10/24 Lite Strips) blood-glucose meter (FreeStyle #1 ea 07/10/24 Lite Meter kit) insulin glargine 100 unit/mL (3 20 unit (0.2 mL) subcut DAILY 30 07/10/24 mL) subcutaneous pen (Lantus days #6 mL Solostar U-100 Insulin) insulin lispro 100 unit/mL 1 sliding scale dose subcut TIDAC 07/10/24 subcutaneous pen 30 days #15 mL lancets 28 gauge (FreeStyle #100 ea 07/10/24 Lancets) cetirizine 10 mg tablet (Allergy 10 mg PO DAILY PRN allergy 07/24/24 Relief (cetirizine)) symptoms #30 tabs Allergies Allergy/AdvReac Type Severity Reaction Status Date / Time pantoprazole Allergy Mild Redness of Verified 08/11/24 08:12 Skin Review of Systems Review of Systems: Yes all other systems are reviewed and are negative PMFSH Past Medical History Medical History (Updated 08/11/24 @ 17:46 by Alcon Houser MD) Obesity (BMI 30-39.9) Bipolar depression Anxiety Insomnia Tracheostomy present Pure hypercholesterolemia Diabetes mellitus Asymptomatic bacteriuria Morbid obesity Partial small bowel obstruction Tracheostomy dependent History of cardiac arrest Wound drainage Takotsubo cardiomyopathy Kidney stones UTI (urinary tract infection) Bipolar 1 disorder Asthma Substance abuse Surgical History History of tracheostomy S/P ureteral stent placement H/O exploratory laparotomy S/P cholecystectomy Family History Family History Mother No pertinent family history Father No pertinent family history Social History Social History Household Members: Spouse Household Members Other:: 1 Housing: Apartment Do you presently have visiting nurse or other home services: No Alcohol intake: former Comment: stayed in ed Patient Tobacco Use Status: Never used Tobacco Smoked in Last 30 Days: No e-Cigarette/Vaping Use: Never Used Second Hand Smoke Exposure: Yes Use of substances other than those prescribed or required for medical reasons: No Advance Directives: Yes Advance Directives on File: Yes Advance Directives Date on File: 02/04/23 service: No Current occupational status: disabled Cognitive needs: No Hearing needs: No Vision needs: Yes Physical Exam ED Vital Signs: Vital Signs - 24 hr 08/11/24 08:09 08/11/24 08:17 08/11/24 08:21 Temperature 98.3 F Pulse Rate 96 93 Respiratory Rate 14 22 H 16 Blood Pressure 122/75 Pulse Oximetry 93 Oxygen Delivery Method Nasal Cannula Oxygen Flow Rate 08/11/24 11:58 08/11/24 12:00 08/11/24 12:58 Temperature 98.3 F Pulse Rate 90 102 H Respiratory Rate 16 21 H 18 Blood Pressure 131/99 H Pulse Oximetry 90 L Oxygen Delivery Method Nasal Cannula Oxygen Flow Rate 1 08/11/24 14:04 08/11/24 15:15 08/11/24 16:31 Temperature Pulse Rate 74 Respiratory Rate 30 H 24 H Blood Pressure Pulse Oximetry 99 90 L Oxygen Delivery Method BiPAP Room Air Oxygen Flow Rate 1 BMI result Body Mass Index 35.9 Const Other: The patient is a 53-year-old woman who is awake but seems drowsy. She looks chronically ill and mildly short of breath but not severely so. HENMT Other: Face is symmetrical. Mucous membranes moist. Eyes Other: Pupils are round equal, conjunctivae are clear Neck Other: the patient has a tracheostomy in place. The neck is otherwise unremarkable. No JVD. Resp Other: No gross increased work of breathing. She has coarse air entry with wheezes bilaterally. Cardio Rate: regular rate Rhythm: regular rhythm Heart sounds: S1 normal heart sound present and S2 normal heart sound present GI Other: abdomen is soft and nontender Skin Other: Skin was pale and dry Neuro Other: the patient seemed drowsy but arousable. She does not seem frankly disoriented. Occasionally she seemed to exhibit some slight twitching behavior. My overall impression was that she was not frankly encephalopathic. She had intact cranial nerves. She moved her extremities symmetrically. No focal findings. Extrem Other: No calf swelling or tenderness, no peripheral edema, no asymmetry Medications Administered Discontinued Medications Generic Name Dose Route Start Last Admin Trade Name Freq PRN Reason Stop Dose Admin Albuterol/Ipratropium 3 ml 08/11/24 11:56 08/11/24 11:57 Albuterol/Iprat 2.5/0.5mg 3 Ml Ampul.Neb INHALE 08/11/24 11:57 3 ml ONCE ONE Administration Ceftriaxone Sodium 1 gm 08/11/24 10:30 08/11/24 11:02 Ceftriaxone Sodium 1 Gm Vial IVPUSH 08/11/24 10:31 1 gm ONCE ONE Administration Clonazepam 1 mg 08/11/24 12:37 08/11/24 12:44 Clonazepam 1 Mg Tablet PO 08/11/24 12:38 1 mg ONCE ONE Administration Albuterol Sulfate 5 mg/ 0 mg 08/11/24 08:11 08/11/24 08:14 Albuterol/Ipratropium 3 ml INHALE 08/11/24 08:12 1 each ONCE ONE Administration Hydromorphone HCl 1 mg 08/11/24 12:37 08/11/24 12:45 Hydromorphone Hcl 1 Mg/Ml Syringe IVPUSH 08/11/24 12:38 1 mg ONCE ONE Administration Protocol Azithromycin 500 mg/ Sodium 250 mls @ 125 mls/hr 08/11/24 10:30 08/11/24 13:20 Chloride IV 08/11/24 12:29 Infused ONCE ONE Infusion Sodium Chloride 1,000 mls @ 999 mls/hr 08/11/24 11:00 08/11/24 13:17 Ns IV 08/11/24 12:00 Infused .Q1H1M RILEY Infusion Sodium Chloride 1,000 mls @ 999 mls/hr 08/11/24 13:30 08/11/24 14:56 Ns IV 08/11/24 14:30 Infused .Q1H1M RILEY Infusion Sodium Chloride 1,000 mls @ 999 mls/hr 08/11/24 13:30 08/11/24 16:00 Ns IV 08/11/24 14:30 Infused .Q1H1M RILEY Infusion Ketorolac Tromethamine 15 mg 08/11/24 16:16 08/11/24 16:31 Ketorolac Tromethamine 15 Mg/Ml Vial IVPUSH 08/11/24 16:17 15 mg ONCE ONE Administration Methylprednisolone Sodium Succinate 80 mg 08/11/24 08:36 08/11/24 08:49 Methylprednisolone Sod Succ 125 Mg Vial IVPUSH 08/11/24 08:37 80 mg ONCE ONE Administration Medical Decision Making Medical Decision Making [facility] Narrative: the patient is a 53-year-old woman with a history of chronic asthma / COPD. She also has a tracheostomy which she usually has capped. Apparently she is on 2 L nasal cannula of oxygen at home. She presents with 1 week of worsening shortness of breath. . The patient seemed mildly drowsy but not frankly encephalopathic. Her pCO2 on a venous blood gas was 75. PH was 7.32. This suggested some degree of chronic CO2 retention. The patient was initially treated with IV steroids and bronchodilators. She was also given empiric antibiotics of ceftriaxone and azithromycin although her chest x-ray was negative. Her initial lactate was mildly elevated at 2.4. She has been receiving albuterol and I suspect that this was the cause of her elevated lactate. The patient was given additional bronchodilator treatments and I had hoped to admit the patient to the medical service but the hospitalist was concerned about the hypercarbia. The patient had initially refused the prospect of doing any BiPAP but ultimately she was prevailed upon to accept BiPAP. At that point we had to remove her uncuffed trach and replace it with a cuffed trach. I did this at the bedside without difficulty. The patient tolerated the change in tray aches well and she was placed on BiPAP. the patient was also suctioned and there was a fair amount of material suctioned. A repeat lactate was 4.4. Again I think this was a consequence of additional albuterol bronchodilator treatments rather than a septic process. The patient was kept on BiPAP for a couple of hours at which point we repeated a VBG. This showed an improved pCO2 of 59. The patient was then taken off BiPAP. Another VBG was done an hour later that showed a pCO2 of 57. At that point the patient seems stable enough to go to the medical service. A 3rd lactate was ordered at the time of the 3rd VBG. The 3rd lactate was elevated at 3.1. Again I attribute this to bronchodilator therapy with albuterol rather than sepsis. Although my impression is that these lactate elevations are not related to sepsis and are related to bronchodilator therapy with albuterol the patient was given prompt antibiotics and was also given 3 L of crystalloid which satisfies a 30 cc/kilos fluid treatment. In addition I performed a focused sepsis exam at 15:00 and again at 18:00. Lab Data 08/11/24 08:46 08/11/24 08:46 Labs: Lab Results 08/11/24 08/11/24 08/11/24 Range/Units 08:46 08:55 10:15 WBC 7.8 (4.8-10.8) X10*3/uL RBC 4.56 (4.20-5.50) X10*6/uL Hgb 12.2 (12.0-16.0) g/dl Hct 38.3 (37.0-47.0) % MCV 84.0 (80.0-98.0) fL MCH 26.8 L (27.0-33.0) pg MCHC 31.9 (31.0-35.0) g/dl RDW 13.4 (11.0-16.0) % Plt Count 253 D (160-400) X10*3/uL MPV 9.7 (9.4-12.3) fL Immature Gran % (Auto) 0.5 H (0.0-0.4) % Neut % (Auto) 72.1 (45-73) % Lymph % (Auto) 17.1 L (20-40) % [place] % (Auto) 4.0 (2-11) % Eos % (Auto) 5.8 H (0-4) % Baso % (Auto) 0.5 (0-2) % Lymph # (Auto) 1.3 (1.2-4.9) X10*3/uL [place] # (Auto) 0.3 (0.1-1.2) X10*3/uL Eos # (Auto) 0.5 H (0.0-0.4) X10*3/uL Baso # (Auto) 0.0 (0.0-0.2) X10*3/uL Abs Immat Gran (auto) 0.04 H (0.00-0.03) X10*3/uL Absolute Neuts (auto) 5.6 (2.0-8.3) x10*3/uL Absolute Nucleated RBC 0.000 (0.0-0.012) X10*3/uL Nucleated RBC % (auto) 0.0 (0.0-0.2) /100WBC D-Dimer High Sensitivty NG/ML VBG pH 7.32 (7.32-7.43) VBG pCO2 75 mmHg VBG pO2 54 mmHg VBG HCO3 39 H (22-26) mmol/L VBG O2 Saturation 73.0 % VBG Base Excess 10.4 mmol/L Sodium 139 (135-145) mmol/L Potassium 4.1 (3.3-5.1) mmol/L Chloride 97 (96-108) mmol/L Carbon Dioxide 33 H (22-29) mmol/L Anion Gap 13 (12-20) BUN 10 (9-16) mg/dL Creatinine 0.93 (0.5-1.4) mg/dL Estim Creat Clear Calc 82.9 Estimated GFR > 60 Random Glucose 336 H (60-115) mg/dL Lactic Acid 2.4 H* (0.5-2.0) mmol/L Lactic Acid F/U @ 2Hr (0.5-2.0) mmol/L Lactic Acid F/U @ 4Hr (0.5-2.0) mmol/L Calcium 9.3 D (8.4-10.2) mg/dL Magnesium 1.6 (1.6-2.6) mg/dL Total Bilirubin 0.3 (0.0-1.0) mg/dL Direct Bilirubin 0.1 (0.0-0.5) mg/dL AST 18 (5-31) U/L ALT 19 (0-31) U/L Alkaline Phosphatase 230 H (39-117) U/L C-Reactive Protein 4.93 H (< or = 0.50) mg/dL B-Natriuretic Peptide < 10 (<100) pg/mL Total Protein 7.0 (6.5-8.0) g/dL Albumin 3.8 (3.5-5.0) g/dL Influenza Type A (PCR) NEGATIVE (Negative) Influenza Type B (PCR) NEGATIVE (Negative) RSV RNA Qual (PCR) NEGATIVE (Negative) SARS-CoV-2 RNA (RT-PCR) NEGATIVE (Negative) 08/11/24 08/11/24 08/11/24 Range/Units 12:54 15:55 15:58 WBC (4.8-10.8) X10*3/uL RBC (4.20-5.50) X10*6/uL Hgb (12.0-16.0) g/dl Hct (37.0-47.0) % MCV (80.0-98.0) fL MCH (27.0-33.0) pg MCHC (31.0-35.0) g/dl RDW (11.0-16.0) % Plt Count (160-400) X10*3/uL MPV (9.4-12.3) fL Immature Gran % (Auto) (0.0-0.4) % Neut % (Auto) (45-73) % Lymph % (Auto) (20-40) % [place] % (Auto) (2-11) % Eos % (Auto) (0-4) % Baso % (Auto) (0-2) % Lymph # (Auto) (1.2-4.9) X10*3/uL [place] # (Auto) (0.1-1.2) X10*3/uL Eos # (Auto) (0.0-0.4) X10*3/uL Baso # (Auto) (0.0-0.2) X10*3/uL Abs Immat Gran (auto) (0.00-0.03) X10*3/uL Absolute Neuts (auto) (2.0-8.3) x10*3/uL Absolute Nucleated RBC (0.0-0.012) X10*3/uL Nucleated RBC % (auto) (0.0-0.2) /100WBC D-Dimer High Sensitivty < 150 NG/ML VBG pH 7.33 (7.32-7.43) VBG pCO2 59 mmHg VBG pO2 36 mmHg VBG HCO3 31 H (22-26) mmol/L VBG O2 Saturation 57.0 % VBG Base Excess 4.3 mmol/L Sodium (135-145) mmol/L Potassium (3.3-5.1) mmol/L Chloride (96-108) mmol/L Carbon Dioxide (22-29) mmol/L Anion Gap (12-20) BUN (9-16) mg/dL Creatinine (0.5-1.4) mg/dL Estim Creat Clear Calc Estimated GFR Random Glucose (60-115) mg/dL Lactic Acid (0.5-2.0) mmol/L Lactic Acid F/U @ 2Hr 4.4 H* (0.5-2.0) mmol/L Lactic Acid F/U @ 4Hr 3.1 H* (0.5-2.0) mmol/L Calcium (8.4-10.2) mg/dL Magnesium (1.6-2.6) mg/dL Total Bilirubin (0.0-1.0) mg/dL Direct Bilirubin (0.0-0.5) mg/dL AST (5-31) U/L ALT (0-31) U/L Alkaline Phosphatase (39-117) U/L C-Reactive Protein (< or = 0.50) mg/dL B-Natriuretic Peptide (<100) pg/mL Total Protein (6.5-8.0) g/dL Albumin (3.5-5.0) g/dL Influenza Type A (PCR) (Negative) Influenza Type B (PCR) (Negative) RSV RNA Qual (PCR) (Negative) SARS-CoV-2 RNA (RT-PCR) (Negative) 08/11/24 Range/Units 17:09 WBC (4.8-10.8) X10*3/uL RBC (4.20-5.50) X10*6/uL Hgb (12.0-16.0) g/dl Hct (37.0-47.0) % MCV (80.0-98.0) fL MCH (27.0-33.0) pg MCHC (31.0-35.0) g/dl RDW (11.0-16.0) % Plt Count (160-400) X10*3/uL MPV (9.4-12.3) fL Immature Gran % (Auto) (0.0-0.4) % Neut % (Auto) (45-73) % Lymph % (Auto) (20-40) % [place] % (Auto) (2-11) % Eos % (Auto) (0-4) % Baso % (Auto) (0-2) % Lymph # (Auto) (1.2-4.9) X10*3/uL [place] # (Auto) (0.1-1.2) X10*3/uL Eos # (Auto) (0.0-0.4) X10*3/uL Baso # (Auto) (0.0-0.2) X10*3/uL Abs Immat Gran (auto) (0.00-0.03) X10*3/uL Absolute Neuts (auto) (2.0-8.3) x10*3/uL Absolute Nucleated RBC (0.0-0.012) X10*3/uL Nucleated RBC % (auto) (0.0-0.2) /100WBC D-Dimer High Sensitivty NG/ML VBG pH 7.32 (7.32-7.43) VBG pCO2 57 mmHg VBG pO2 62 mmHg VBG HCO3 29 H (22-26) mmol/L VBG O2 Saturation 86.0 % VBG Base Excess 2.6 mmol/L Sodium (135-145) mmol/L Potassium (3.3-5.1) mmol/L Chloride (96-108) mmol/L Carbon Dioxide (22-29) mmol/L Anion Gap (12-20) BUN (9-16) mg/dL Creatinine (0.5-1.4) mg/dL Estim Creat Clear Calc Estimated GFR Random Glucose (60-115) mg/dL Lactic Acid (0.5-2.0) mmol/L Lactic Acid F/U @ 2Hr (0.5-2.0) mmol/L Lactic Acid F/U @ 4Hr (0.5-2.0) mmol/L Calcium (8.4-10.2) mg/dL Magnesium (1.6-2.6) mg/dL Total Bilirubin (0.0-1.0) mg/dL Direct Bilirubin (0.0-0.5) mg/dL AST (5-31) U/L ALT (0-31) U/L Alkaline Phosphatase (39-117) U/L C-Reactive Protein (< or = 0.50) mg/dL B-Natriuretic Peptide (<100) pg/mL Total Protein (6.5-8.0) g/dL Albumin (3.5-5.0) g/dL Influenza Type A (PCR) (Negative) Influenza Type B (PCR) (Negative) RSV RNA Qual (PCR) (Negative) SARS-CoV-2 RNA (RT-PCR) (Negative) Critical Care Time Critical Care Time Critical Care Time: Yes Total Critical Care Time: 35 Attestation: The patient was critically ill with a high probability of imminent or life-threatening deterioration. I spent greater than 30 minutes of discontinuous time evaluating the patient, delivering critical care at the bedside, discussing evaluating data with consultants. Critical care time does not include time spent performing separately billable procedures or teaching. Time spent performing critical care with 35 minutes. Discharge Plan Discharge Clinical Impression: Acute exacerbation of chronic obstructive pulmonary disease, Hypercarbia Patient Disposition: Home, Self-Care
--- OUTSIDE RECORDS SUMMARY | 2024-08-11 08:31 | XMS_ITS | Clinical Summary ---
Author Organization [facility] [address] [place] [address] [place] [address] [place] Phone Care Team Providers Care [employer] Name Role Phone Megan Anderson MD Primary [...] mouth 2 (two) times a day. Active traZODone (DESYREL) 100 mg tablet Take 1.5 tablets (150 mg total) by mouth at bedtime. Active mometasone-form oterol (DULERA 200) 200-5 mcg/actuation inhaler Inhale 2 puffs by mouth 2 (two) times a day. 11/03/19 24 Active gabapentin (NEURONTIN) 300 mg capsule Take 1 capsule (300 mg total) by mouth 2 (two) times a day. 180 each 1 02/02/20 24 Active atorvastatin (LIPITOR) 20 mg tablet TAKE 1 TABLET BY MOUTH EVERY DAY 90 tablet 1 04/10/19 25 Active promethazine (PHENERGAN) 25 mg tablet [...] EACH DAY. 32 mL 07/11/19 25 Active albuterol HFA (Ventolin HFA) 90 mcg/actuation inhalerIndicati ons:Moderate persistent asthma without complication INHALE 2 PUFFS BY MOUTH EVERY 6 (SIX) HOURS IF NEEDED FOR WHEEZING. COUGH 18 each 07/27/19 25 Active famotidine (PEPCID) 20 mg tablet TAKE 1 TABLET BY MOUTH TWICE A DAY 180 tablet 1 08/02/19 25 Active tiZANidine (ZANAFLEX) 4 mg tablet Take 1 tablet (4 mg total) by mouth 1 (one) time each day if needed for muscle spasms. 01/08/20 23 025 Discontinued(F ormulary change) famotidine (PEPCID) 20 mg tablet Take 1 tablet (20 mg total) by mouth 2 (two) times a day. 180 each 1 02/02/20 24 025 Discontinued albuterol HFA (Ventolin HFA) 90 mcg/actuation inhalerIndicati ons:Moderate persistent asthma without complication Inhale 2 puffs by mouth every 6 (six) hours if needed for wheezing. cough 6.7 g 2 04/13/19 25 025 Discontinued Active Problems Problem [...] 08/05/2021 DVT of deep femoral vein, right ([facility] V24, [facility] V28) 05/28/2021 Assessment & Plan (02/02/2024 [...] complication, without long-term current use of insulin ([facility] V24, [facility] V28) 01/20/2018 Assessment & Plan (02/02/2024 [...] 4 months. Narcotic dependence, in vasu ssion ([facility] V24, [facility] V28) 11/02/2011 Overview (01/11/2024): On methadone [...] Care Team Description 06/29/2024 Telephone Adult Medicine [address] [phone] Megan Anderson MD Forms/questionnaires ([facility] - Health Status Report) 06/11/2024 Telephone Adult Medicine [address] [phone] Caron Lea MA from Last 3 Months [...] 6mo and older 11/26/2019,11/13/2019,11/04/2018 PPD Test 08/30/2018 [employer] SARS-CoV-2 COVID-19, mRNA, LNP-S, preservative free 04/20/2020,04/03/2020 Td Tetanus diptheria (Tdvax) 7yo and older 04/14/2006 Tdap Tetanus diptheria acell ular pertussis (Boostrix; Adacel) 7yo and older 01/06/2018 Surgical History Surgery Date Site/Laterality Comments OTHER SURGICAL HISTORY PROCEDURE: MT ARTHRODESIS POSTERIOR SPINAL DFRM <6 VRT SGM UPPER GASTROINTESTINAL ENDOSCOPY 05/04/2019 PROCEDURE: MT UPPER GI ENDOSCOPY PERFORMED; COMMENT: Visually normal on treatment with famotidine 40 mg every morning. CYSTOSCOPY 06/2021 PROCEDURE: MT CYSTOURETHROSCOPY; COMMENT: Cystoscopy and stent placement for [...] essential hypertension PEA (Pulseless electrical ac tivity) ([facility] V24, [facility] V28) 11/06/2020 DX:PEA (Pulseless electrica l activity) ([facility]); COMMENT: Found at home PEA and apneic [facility] SICU admit 11/01/20 Pulmonary embolism ([facility] V24, [facility] V28) 05/28/2021 DX:Pulmonary embolism ([facility]) 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 DX:Necr otizing pancreatitis; COMMENT: [...] 02/02/2024 11:06 AM EST Plan of Treatment Health Maintenance Due Date [...] (05/21/2024) Anatomical Region Laterality Modality Ultrasound Provider [place] [employer] [facility] [place] PROCEDURES Final Result * Annual BMP Blood Test (09/23/2023) Pathologist Critical [facility] hospital Annual BMP Blood Test abstracted Historical Provider HEALTH MAINTENANCE Final Result * (ABNORMAL) Lipid panel (09/23/2023) LDL/HDL Ratio 5(A) 0 - 4 Triglycerides 418(A) 0 - 150 mg/dL Cholesterol 149 0 - 200 mg/dL HDL 33(A) >=40 mg/dL LDL Cholesterol 33 0 - 100 mg/dL Blood Venous blood specimen / Unknown Historical Provider LAB BLOOD ORDERABLES Laila l Result * Depression Screening (07/13/2023) [facility] Depression Screening abstracted Result [facility] Historical Provider HEALTH MAINTENANCE Final Result * (ABNORMAL) Hemoglobin A1c (07/06/2022) [facility] Hemoglobin A1C 9.7(A) <=6.5 % Blood Venous blood specimen / Unknown Result [facility] Provider LAB BLOOD ORDERABLES Laila l Result * Cervical Cancer Screening: HPV (06/17/2022) [facility] Cervical Cancer Screening: HPV negative, abstracted Result [facility] Provider HEALTH MAINTENANCE Final Result * Hepatitis C Screening (11/14/2008) [facility] Hepatitis C Screening abstracted Result [facility] Provider HEALTH MAINTENANCE Final Result * Urine Albumin Creatinine Ratio (12/11/2004) [facility] Urine Albumin Creatinine Ratio abstracted [facility] Provider HEALTH MAINTENANCE Final Result from Last 3 Months or Most Recently Relevant to Health Maintenance Insurance [facility] Care Teams [employer] Relationship Specialty Start Date End Date Megan Anderson MD [address] [place] [id number] PCP - General Internal Medicine 10/12/21
--- NOTE | 2024-08-11 08:35 | ECG_ITS ---
Test Reason : SOB Blood Pressure : */* mmHG Vent. Rate : 99 BPM Atrial Rate : 99 BPM P-R Int : 170 ms QRS Dur : 88 ms QT Int : 364 ms P-R-T Axes : 47 -5 34 degrees QTcB Int : 467 ms Normal sinus rhythm Cannot rule out Anterior infarct (cited on or before 31-May-2024) Abnormal ECG When compared with ECG of 31-May-2024 00:20, No significant change was found Referred By: Alcon Houser Electronically Signed By: LAMBERT DE LA CRUZ MD
[2024-08-11 08:52] LABS: MANUAL DIFF FLAG NO
[2024-08-11 08:59] LABS: Venous Blood Gas Refer to POC result
[2024-08-11 09:01] LABS: VBG Base Excess 10.4 mmol/L; VBG HCO3 39 mmol/L (22-26); VBG pCO2 75 mmHg; VBG pH 7.32 (7.32-7.43); VBG pO2 54 mmHg
[2024-08-11 09:03] LABS: Basophils Percent Auto 0.5 % (0-2); Eosinophils Absolute Auto 0.5 X10*3/uL (0.0-0.4); Eosinophils Percent Auto 5.8 % (0-4); Hematocrit 38.3 % (37.0-47.0); Hemoglobin 12.2 g/dl (12.0-16.0); Imm Gran Abs Auto 0.04 X10*3/uL (0.00-0.03); Imm Gran Pct Auto 0.5 % (0.0-0.4); Lymphocytes Absolute Auto 1.3 X10*3/uL (1.2-4.9); Lymphocytes Percent Auto 17.1 % (20-40); Mean Corpuscular HGB Conc 31.9 g/dl (31.0-35.0); Mean Corpuscular Hemoglobin 26.8 pg (27.0-33.0); Mean Platelet Volume 9.7 fL (9.4-12.3); Monocytes Absolute Auto 0.3 X10*3/uL (0.1-1.2); Neutrophils Absolute Auto 5.6 x10*3/uL (2.0-8.3); Neutrophils Percent Auto 72.1 % (45-73); Platelet Count 253 X10*3/uL (160-400); Red Blood Count 4.56 X10*6/uL (4.20-5.50); Red Cell Distribution Width 13.4 % (11.0-16.0); White Blood Count 7.8 X10*3/uL (4.8-10.8)
[2024-08-11 09:17] LABS: Alanine Aminotransferase 19 U/L (0-31); Albumin Level 3.8 g/dL (3.5-5.0); Alkaline Phosphatase 230 U/L (39-117); Anion Gap 13 (12-20); Aspartate Amino Transferase 18 U/L (5-31); Bilirubin Direct 0.1 mg/dL (0.0-0.5); Bilirubin Total 0.3 mg/dL (0.0-1.0); Blood Urea Nitrogen 10 mg/dL (9-16); C Reactive Protein 4.93 mg/dL (< or = 0.50); Calcium 9.3 mg/dL (8.4-10.2); Carbon Dioxide 33 mmol/L (22-29); Chloride 97 mmol/L (96-108); Creatinine Clr Calc Pharmacy 82.9; Estimated Glomerular Filt Rate > 60; Glucose Random 336 mg/dL (60-115); Magnesium 1.6 mg/dL (1.6-2.6); Potassium 4.1 mmol/L (3.3-5.1); Sodium 139 mmol/L (135-145)
[2024-08-11 09:35] LABS: Influenza A PCR NEGATIVE (Negative); Influenza B PCR NEGATIVE (Negative); Resp Syncy Virus RNA Qual PCR NEGATIVE (Negative); SARS COV2 PCR INHOUSE NEGATIVE (Negative)
[2024-08-11 10:47] LABS: Lactic Acid 2.4 mmol/L (0.5-2.0)
[2024-08-11] MEDS: cefTRIAXone sodium 1 GM VIAL IVPUSH (11:02)
[2024-08-11] MEDS: 0.9 % Sodium Chloride 1,000 ML 999 ML IV ×4 (11:03→22:44)
[2024-08-11] MEDS: Azithromycin 500 MG in 0.9 % Sodium Chloride 250 ML 125 MG IV (11:13)
[2024-08-11 11:30] LABS: B Type Natriuretic Peptide < 10 pg/mL (<100)
[2024-08-11] MEDS: Albuterol/Iprat 2.5/0.5MG 3 ML AMPUL.NEB INHALE ×2 (11:57→20:03)
[2024-08-11 12:18] LABS: Reflex Lactate? Lactic Acid Added
[2024-08-11] MEDS: clonazePAM 1 MG TABLET PO (12:44)
[2024-08-11] MEDS: HYDROmorphone HCl 1 MG/ML SYRINGE IVPUSH (12:45)
--- NOTE | 2024-08-11 12:56 | PC.NURSE ---
Pt placed on bipap, respiratory at bedside. IV abx administered, blood cultures pending. Plan of care ongoing.
[2024-08-11 13:26] LABS: D Dimer High Sensitivity < 150 NG/ML; ~Lactic Acid-LAB USE ONLY 4.4 mmol/L (0.5-2.0)
--- NOTE | 2024-08-11 13:49 | PC.NURSE ---
pt noted to be restless and attempting to cough, respiratory notified and at bedside to preform suctioning. Pateint placed back on bipap and now resting comfortably on stretcher. IVF infusing per MAR. Plan of care ongoing.
[2024-08-11 15:03] LABS: Reflex Lactate? 2 Y
[2024-08-11 16:01] LABS: VBG Base Excess 4.3 mmol/L; VBG HCO3 31 mmol/L (22-26); VBG pCO2 59 mmHg; VBG pH 7.33 (7.32-7.43); VBG pO2 36 mmHg
[2024-08-11 16:17] LABS: ~Lactic Acid-LAB USE ONLY 3.1 mmol/L (0.5-2.0)
[2024-08-11] MEDS: Ketorolac Tromethamine 15 MG/ML VIAL IVPUSH (16:31)
--- NOTE | 2024-08-11 16:53 | PC.NURSE ---
bipap removed by respiratory, pt now on room air- O2 sat maintaining above 88%.
[2024-08-11 17:11] LABS: Venous Blood Gas Refer to POC result
[2024-08-11 17:13] LABS: VBG Base Excess 2.6 mmol/L; VBG HCO3 29 mmol/L (22-26); VBG pCO2 57 mmHg; VBG pH 7.32 (7.32-7.43); VBG pO2 62 mmHg
[2024-08-11 17:26] LABS: Venous Blood Gas Refer to POC result
--- NOTE | 2024-08-11 17:40 | P.HPHOSP_ITS ---
History of Present Illness Date of Service: 08/11/24 Attending physician on admission: Hank Broussard Chief Complaint: SOB Pt is a 53-year-old female with a PMH significant for chronic hypoxemic respiratory failure secondary to obesity hypoventilation syndrome/mild intermittent asthma on maryan O2 prn, chronic tracheostomy, hx of cardiac arrest, insulin-dependent type 2 diabetes, HTN, HLD, and bipolar disorder?who presents to the ED with?SOB, ANDERSEN, and difficulty breathing x1 week. Pt reports she has been tired, fatigued, just ?not been feeling well? for the past week. Had ANDERSEN with just walking to the bathroom. Increased cough, worse than baseline and productive of yellowish sputum. Initially thought it was allergies and was prescribed cetirizine by her PCP that she took to no effect. Presents today because she had worsening SOB and was ?super clumsy? this morning when she awoke. Also complains of pleuritic pain in the middle of her upper back. No fever or chills. Reports is no longer on continuous home O2: O2 has been decreased to 2 L at night and p.r.n.. When pt arrived to the ED was noted to be drowsy, fatigued, and with question of mild encephalopathy. Pt was found to be retaining CO2 and had increased work of breathing. Was placed on BiPAP for a few hours with good effect. In the ED pt was tachycardic up to 102 and tachypneic up to 30. Was found to be retaining CO2 and had increased work of breathing, so was placed on BiPAP for a few hours to good effect. Labs were significant for random glucose 336, lactic acid 2.4 with repeat 4.4 and 3.1, alk-phos 230, and CRP 4.93. No leukocytosis. Stable H&H. No significant electrolyte abnormalities. Renal function WNL. BNP negative. Tested negative for flu, COVID, RSV. Initial VBG with pH 7.32, pCO2 75, and bicarb 39; repeat after BiPAP with pH 7.32, pCO2 57, and bicarb 29. CXR showed no acute findings. EKG demonstrated normal sinus rhythm without evidence of significant ST elevations or depressions. Pt was treated in the ED with IVF, DuoNebs, Solu-Medrol, clonazepam, hydromorphone, ketorolac, ceftriaxone, and azithromycin. Pt is admitted to the hospital for treatment and further evaluation of acute on chronic hypoxemic and hypercapnic respiratory failure in the setting of acute asthma exacerbation. Review of Systems 2 Review of Systems: Negative except for that which is stated in the [facility] Medical History Obesity (BMI 30-39.9) Bipolar depression Anxiety Insomnia Tracheostomy present Pure hypercholesterolemia Diabetes mellitus Asymptomatic bacteriuria Morbid obesity Partial small bowel obstruction Tracheostomy dependent History of cardiac arrest Wound drainage Takotsubo cardiomyopathy Kidney stones UTI (urinary tract infection) Bipolar 1 disorder Asthma Substance abuse Family History Mother No pertinent family history Father No pertinent family history Surgical History History of tracheostomy S/P ureteral stent placement H/O exploratory laparotomy S/P cholecystectomy Social History Household Members: Spouse Household Members Other:: 1 Housing: Apartment Do you presently have 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) Alcohol intake: former Comment: stayed in ed Patient Tobacco Use Status: Never used Tobacco Smoked in Last 30 Days: No e-Cigarette/Vaping Use: Never Used Second Hand Smoke Exposure: Yes Use of substances other than those prescribed or required for medical reasons: No Do you feel safe in your current relationship?: Yes Is there a partner from a previous relationship who is making you feel unsafe now?: No Advance Directives: Yes Advance Directives Information Provided: No Advance Directives on File: Yes Advance Directives Date on File: 02/04/23 Do you have a plan to hurt others: No Plan Recently lost weight without trying: Yes How much weight loss: 2-13 pounds Eating poorly because of decreased appetite: No Nutrition screen score: 3 Nutrition Risks: No Nutritional Risk Patient : No : No Poor oral hygiene: No service: No Current occupational status: disabled Cognitive needs: No Hearing needs: No Vision needs: Yes Meds Allergies Allergy/AdvReac Type Severity Reaction Status Date / Time pantoprazole Allergy Mild Redness of Verified 08/11/24 08:12 Skin Home Medications ?Medication ?Instructions ?Recorded ?Confirmed ?Last Taken ?Type albuterol sulfate 90 mcg/actuation 2 puff inhalation Q4H PRN wheezing 02/02/23 08/11/24 09/07/23 20:00 History aerosol inhaler (Ventolin HFA) clonazepam 1 mg tablet 1 mg PO BID PRN Anxiety 02/02/23 08/11/24 09/07/23 20:00 History escitalopram oxalate 20 mg tablet 20 mg PO BEDTIME 02/02/23 08/11/24 08/10/24 History famotidine 20 mg tablet 20 mg PO BID 02/02/23 08/11/24 08/10/24 History fluticasone propionate 50 1 spray intranasal DAILY allergies 02/02/23 08/11/24 08/10/24 History mcg/actuation nasal spray,suspension metformin 500 mg tablet,extended 1,000 mg PO BID 02/02/23 08/11/24 08/10/24 History release 24 hr oxcarbazepine 300 mg tablet 300 mg PO BID 02/02/23 08/11/24 08/10/24 History trazodone 150 mg tablet 150 mg PO BEDTIME PRN Sleep 02/02/23 08/11/24 09/07/23 20:00 History gabapentin 300 mg capsule 300 mg PO BID 03/26/24 08/11/24 08/10/24 History promethazine 25 mg tablet 25 mg PO DAILY PRN nausea 03/26/24 08/11/24 Unknown History atorvastatin 20 mg tablet 20 mg PO DAILY 05/31/24 08/11/24 08/10/24 History mometasone-formoterol HFA 200 2 puff inhalation BID 05/31/24 08/11/24 08/10/24 History mcg-5 mcg/actuation aerosol inhaler (Dulera) ibuprofen 800 mg tablet 800 mg PO Q8H PRN pain 08/11/24 08/11/24 Unknown History insulin glargine 100 unit/mL (3 20 unit subcut BEDTIME 08/11/24 08/11/24 08/10/24 History mL) subcutaneous pen (Lantus Solostar U-100 Insulin) lurasidone 80 mg tablet 80 mg PO BEDTIME 08/11/24 08/11/24 08/10/24 History Physical Exam 2 Vital Signs and Narrative: Vital Signs: Last Vital Signs Temp 98.3 F 08/11/24 12:00 Pulse 74 08/11/24 15:15 Resp 24 H 08/11/24 15:15 BP 131/99 H 08/11/24 12:00 Pulse Ox 90 L 08/11/24 16:31 O2 Del Method Room Air 08/11/24 16:31 O2 Flow Rate 1 08/11/24 16:31 Oxygen Flow Rate 2 08/11/24 08:09 BMI result Body Mass Index 35.9 General: AOx3, no acute distress Resp: Diffuse bilateral expiratory wheezing. Trach collar in place CVS: S1, S2, RRR GI: +BS, NT, no distention Skin: Warm, dry Back: Non-tender to palpation Neuro: Cranial nerves II-XII grossly intact bilaterally. Motor grossly intact bilaterally Extremities: No edema Psych: Appropriate affect Results Labs 08/11/24 08:46 08/11/24 08:46 Labs: Laboratory Results - last 24 hr 08/11/24 08/11/24 08/11/24 08:46 08:55 10:15 MCV 84.0 MCH 26.8 L MCHC 31.9 RDW 13.4 Plt Count 253 D MPV 9.7 Immature Gran % (Auto) 0.5 H Neut % (Auto) 72.1 Lymph % (Auto) 17.1 L Quay % (Auto) 4.0 Eos % (Auto) 5.8 H Baso % (Auto) 0.5 Lymph # (Auto) 1.3 Quay # (Auto) 0.3 Eos # (Auto) 0.5 H Baso # (Auto) 0.0 Abs Immat Gran (auto) 0.04 H Absolute Neuts (auto) 5.6 Absolute Nucleated RBC 0.000 Nucleated RBC % (auto) 0.0 D-Dimer High Sensitivty VBG pH 7.32 VBG pCO2 75 VBG pO2 54 VBG HCO3 39 H VBG O2 Saturation 73.0 VBG Base Excess 10.4 Anion Gap 13 Estim Creat Clear Calc 82.9 Estimated GFR > 60 Random Glucose 336 H Lactic Acid 2.4 H* Lactic Acid F/U @ 2Hr Lactic Acid F/U @ 4Hr Calcium 9.3 D Magnesium 1.6 Total Bilirubin 0.3 Direct Bilirubin 0.1 AST 18 ALT 19 Alkaline Phosphatase 230 H C-Reactive Protein 4.93 H B-Natriuretic Peptide < 10 Total Protein 7.0 Albumin 3.8 Influenza Type A (PCR) NEGATIVE Influenza Type B (PCR) NEGATIVE RSV RNA Qual (PCR) NEGATIVE SARS-CoV-2 RNA (RT-PCR) NEGATIVE 08/11/24 08/11/24 08/11/24 12:54 15:55 15:58 MCV MCH MCHC RDW Plt Count MPV Immature Gran % (Auto) Neut % (Auto) Lymph % (Auto) Quay % (Auto) Eos % (Auto) Baso % (Auto) Lymph # (Auto) Quay # (Auto) Eos # (Auto) Baso # (Auto) Abs Immat Gran (auto) Absolute Neuts (auto) Absolute Nucleated RBC Nucleated RBC % (auto) D-Dimer High Sensitivty < 150 VBG pH 7.33 VBG pCO2 59 VBG pO2 36 VBG HCO3 31 H VBG O2 Saturation 57.0 VBG Base Excess 4.3 Anion Gap Estim Creat Clear Calc Estimated GFR Random Glucose Lactic Acid Lactic Acid F/U @ 2Hr 4.4 H* Lactic Acid F/U @ 4Hr 3.1 H* Calcium Magnesium Total Bilirubin Direct Bilirubin AST ALT Alkaline Phosphatase C-Reactive Protein B-Natriuretic Peptide Total Protein Albumin Influenza Type A (PCR) Influenza Type B (PCR) RSV RNA Qual (PCR) SARS-CoV-2 RNA (RT-PCR) 08/11/24 17:09 MCV MCH MCHC RDW Plt Count MPV Immature Gran % (Auto) Neut % (Auto) Lymph % (Auto) Quay % (Auto) Eos % (Auto) Baso % (Auto) Lymph # (Auto) Quay # (Auto) Eos # (Auto) Baso # (Auto) Abs Immat Gran (auto) Absolute Neuts (auto) Absolute Nucleated RBC Nucleated RBC % (auto) D-Dimer High Sensitivty VBG pH 7.32 VBG pCO2 57 VBG pO2 62 VBG HCO3 29 H VBG O2 Saturation 86.0 VBG Base Excess 2.6 Anion Gap Estim Creat Clear Calc Estimated GFR Random Glucose Lactic Acid Lactic Acid F/U @ 2Hr Lactic Acid F/U @ 4Hr Calcium Magnesium Total Bilirubin Direct Bilirubin AST ALT Alkaline Phosphatase C-Reactive Protein B-Natriuretic Peptide Total Protein Albumin Influenza Type A (PCR) Influenza Type B (PCR) RSV RNA Qual (PCR) SARS-CoV-2 RNA (RT-PCR) Assessment and Plan (1) Hypercarbia: Status: Acute (2) Acute and chronic respiratory failure: Status: Resolved (3) Asthma exacerbation: Status: Inactive Plan Pt is a 53-year-old female with a PMH significant for chronic hypoxemic respiratory failure secondary to obesity hypoventilation syndrome/mild intermittent asthma on maryan O2 prn, chronic tracheostomy, hx of cardiac arrest, insulin-dependent type 2 diabetes, HTN, HLD, and bipolar disorder?who presents to the ED with?SOB, ANDERSEN, and difficulty breathing x1 week. Pt is admitted to the hospital for treatment and further evaluation of acute on chronic hypoxemic and hypercapnic respiratory failure in the setting of acute asthma exacerbation. 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 Acute lactic acidosis Secondary to hypoxia, not sepsis CXR negative for acute process, no fever or leukocytosis No indication to continue abx for pneumonia Pleuritic back pain Pt complaining of central upper back pain associated with deep breathing Pain not reproduceable Pt has been requesting Dilaudid for pain Conservative analgesics for now Insulin dependent type 2 diabetes Poorly controlled: last A1c 12.7 on 07/10/24 Continue metformin, SSI, Lantus Diabetic diet, diabetic counseling Peripheral neuropathy Continue gabapentin Mood disorder Continue home mood stabalizers Obesity class II Encourage weight loss Full Code Attending:?Dr. Broussard DVT Prophylaxis: Lovenox Pt will require a hospitalization of at least two nights for treatment of acute on chronic hypoxemic and hypercapnic respiratory failure in the setting of acute asthma exacerbation that will require administration of IV steroids, breathing treatments, and supplemental O2 above baseline. Quality Stroke Does the patient have a stroke diagnosis?: No VTE Prior VTE?: No VTE Risk Level:: Medical - moderate - high VTE Device Contraindication: Treatment Not Indicated VTE Drug Contraindication: N/A - Med Ordered
[2024-08-11 17:47] LABS: Cancel Lactic Acid Canceled
--- NOTE | 2024-08-11 18:44 | PHA.MEDREC ---
Pharmacy Consult ? Medication Reconciliation Pharmacy has completed the medication reconciliation. Spoke to patient to confirm medication list. Per patient, she uses 20 units of lantus at bedtime, sliding scale tidac for insulin lispro and the dose of lurasidone was recently increased to 80 mg daily. She confirmed she is still taking metformin ER 1000 mg bid even though last fill was 02/18/24 for 90 day supply. She no longer takes glipizide. Last dose of medications was last night 08/10/24.
[2024-08-11] MEDS: Magnesium Sulfate/H2O 2 GM/50 ML PIGGYBACK IV (18:45)
[2024-08-11] MEDS: HYDROmorphone HCl 2 MG TABLET 1 MG PO (19:02)
--- NOTE | 2024-08-11 19:22 | MHC.EDTECH ---
pt refused hospital socks, was warned of fall risks
[2024-08-11 21:10] LABS: Glucose, Whole Blood 580 mg/dL (60-115)
[2024-08-11] MEDS: Insulin Lispro 100 UNIT/ML 3 ML VIAL SUBCUT (21:28)
[2024-08-11] MEDS: Insulin Glargine,Hum.rec.anlog 100 UNIT/ML 10 ML VIAL 20 UNIT SUBCUT (21:29)
[2024-08-11] MEDS: methylPREDNISolone Sod Succ 40 MG/ML VIAL IVPUSH (21:30)
[2024-08-11] MEDS: Famotidine 20 MG TABLET PO (21:30)
[2024-08-11] MEDS: Lurasidone HCl 80 MG TABLET PO (21:30)
[2024-08-11] MEDS: metFORMIN HCl ER 500 MG TAB.ER.24H 1000 MG PO (21:30)
[2024-08-11] MEDS: OXcarbazepine 300 MG TABLET PO (21:30)
[2024-08-11] MEDS: Escitalopram Oxalate 20 MG TABLET PO (21:30)
[2024-08-11] MEDS: Gabapentin 300 MG CAPSULE PO (21:30)
[2024-08-11 22:21] LABS: Glucose, Whole Blood 513 mg/dL (60-115)
[2024-08-11] MEDS: Insulin Regular, Human 100 UNIT/ML 10 ML VIAL 10 UNIT IVPUSH (22:44)
[2024-08-11] MEDS: Enoxaparin Sodium 40 MG/0.4 ML SYRINGE SUBCUT (22:44)
[2024-08-12] VITALS (9 sets, daily range): BP systolic 137–157; BP diastolic 77–83; PULSE 80–92; RESP 16–20; TEMP 36.4–37.3; O2SAT 92–97
[2024-08-12 00:36] LABS: Glucose, Whole Blood 429 mg/dL (60-115)
[2024-08-12 02:33] LABS: Glucose, Whole Blood 379 mg/dL (60-115)
[2024-08-12] MEDS: Albuterol/Iprat 2.5/0.5MG 3 ML AMPUL.NEB INHALE ×3 (02:52→12:14)
[2024-08-12 03:32] LABS: Anion Gap 16 (12-20); Blood Urea Nitrogen 16 mg/dL (9-16); Calcium 8.8 mg/dL (8.4-10.2); Carbon Dioxide 27 mmol/L (22-29); Chloride 97 mmol/L (96-108); Creatinine Clr Calc Pharmacy 91.8; Estimated Glomerular Filt Rate > 60; Glucose Random 409 mg/dL (60-115); Lactic Acid 3.6 mmol/L (0.5-2.0); Magnesium 1.9 mg/dL (1.6-2.6); Potassium 4.8 mmol/L (3.3-5.1); Sodium 135 mmol/L (135-145)
[2024-08-12] MEDS: 0.9 % Sodium Chloride 1,000 ML 999 ML IV (03:43)
[2024-08-12 04:56] LABS: Reflex Lactate? Lactic Acid Added
--- NOTE | 2024-08-12 05:08 | PC.NURSE ---
Pt SOB p ambulating to bathroom. Pt not due for prn UDN until 0700. Pt requesting that BiPAP be restarted. Resp contacted.
[2024-08-12 05:22] LABS: Appearance Urine Clear; Color Urine Yellow; Glucose Urine UA >=1000 mg/dL (Negative); Leukocyte Esterase Urine Negative (Negative); Nitrite Urine Negative (Negative); Specific Gravity - Urine 1.015 (1.005-1.025); UMIC TRIGGER UACC YES; Urine Blood Negative (Negative); Urine Ketones Negative (Negative); Urine Protein Negative (Neg-Trace)
[2024-08-12 05:32] LABS: Bacteria Urine None Seen (None Seen); Hyaline Casts Urine 0-2 /LPF (0-2); RBC Urine 0-2 /HPF (0-2); WBC Urine 0-5 /HPF (0-5)
[2024-08-12 06:10] LABS: Anion Gap 15 (12-20); Blood Urea Nitrogen 15 mg/dL (9-16); Calcium 8.6 mg/dL (8.4-10.2); Carbon Dioxide 29 mmol/L (22-29); Chloride 98 mmol/L (96-108); Creatinine Clr Calc Pharmacy 97.2; Estimated Glomerular Filt Rate > 60; Glucose Random 398 mg/dL (60-115); Potassium 4.7 mmol/L (3.3-5.1); Sodium 137 mmol/L (135-145); ~Lactic Acid-LAB USE ONLY 2.4 mmol/L (0.5-2.0)
[2024-08-12 07:30] LABS: Venous Blood Gas Refer to POC result
[2024-08-12 07:34] LABS: VBG Base Excess 9.1 mmol/L; VBG HCO3 35 mmol/L (22-26); VBG pCO2 57 mmHg; VBG pO2 46 mmHg
[2024-08-12 07:45] LABS: Reflex Lactate? 2 Y
[2024-08-12 07:47] LABS: Glucose, Whole Blood 357 mg/dL (60-115)
[2024-08-12] MEDS: Insulin Lispro 100 UNIT/ML 3 ML VIAL SUBCUT ×6 (07:59→15:55)
[2024-08-12] MEDS: Gabapentin 300 MG CAPSULE PO (08:00)
[2024-08-12] MEDS: 0.9 % Sodium Chloride Flush 3 ML SYRINGE IVFLUSH ×2 (08:00→15:55)
[2024-08-12] MEDS: Atorvastatin Calcium 20 MG TABLET PO (08:00)
[2024-08-12] MEDS: OXcarbazepine 300 MG TABLET PO (08:00)
[2024-08-12] MEDS: Famotidine 20 MG TABLET PO (08:00)
[2024-08-12] MEDS: Fluticasone Propionate Nasal 16 GM SPRAY 1 SPRAY NOSTRIL-B (08:01)
[2024-08-12] MEDS: methylPREDNISolone Sod Succ 40 MG/ML VIAL IVPUSH (08:12)
[2024-08-12 09:33] LABS: Cancel Lactic Acid Canceled
--- NOTE | 2024-08-12 10:20 | PM.DS ---
DS: Providers Provider Date of Service: 08/12/24 Date of admission: 08/11/24 17:39 Date of discharge: 08/12/24 Primary care physician: Flynn Granado MD Consults: 08/12/24 09:22 Consult to Pulmonology Routine Consulting Provider: [facility] Reason for consultation: trach change Has provider been notified: No Attending physician on discharge: Anand Nolasco Discharging clinician: Danika Vegsa DS: Diagnosis Discharge Diagnosis (1) Hypercarbia: Status: Acute (2) Acute and chronic respiratory failure: Status: Resolved (3) Asthma exacerbation: Status: Inactive DS: Summary Hospital Course Hospital Course: Fraom H&P on the day of admission Pt is a 53-year-old female with a PMH significant for chronic hypoxemic respiratory failure secondary to obesity hypoventilation syndrome/mild intermittent asthma on maryan O2 prn, chronic tracheostomy, hx of cardiac arrest, insulin-dependent type 2 diabetes, HTN, HLD, and bipolar disorder?who presents to the ED with?SOB, ANDERSEN, and difficulty breathing x1 week. Pt reports she has been tired, fatigued, just ?not been feeling well? for the past week. Had ANDERSEN with just walking to the bathroom. Increased cough, worse than baseline and productive of yellowish sputum. Initially thought it was allergies and was prescribed cetirizine by her PCP that she took to no effect. Presents today because she had worsening SOB and was ?super clumsy? this morning when she awoke. Also complains of pleuritic pain in the middle of her upper back. No fever or chills. Reports is no longer on continuous home O2: O2 has been decreased to 2 L at night and p.r.n.. When pt arrived to the ED was noted to be drowsy, fatigued, and with question of mild encephalopathy. Pt was found to be retaining CO2 and had increased work of breathing. Was placed on BiPAP for a few hours with good effect. In the ED pt was tachycardic up to 102 and tachypneic up to 30. Was found to be retaining CO2 and had increased work of breathing, so was placed on BiPAP for a few hours to good effect. Labs were significant for random glucose 336, lactic acid 2.4 with repeat 4.4 and 3.1, alk-phos 230, and CRP 4.93. No leukocytosis. Stable H&H. No significant electrolyte abnormalities. Renal function WNL. BNP negative. Tested negative for flu, COVID, RSV. Initial VBG with pH 7.32, pCO2 75, and bicarb 39; repeat after BiPAP with pH 7.32, pCO2 57, and bicarb 29. CXR showed no acute findings. EKG demonstrated normal sinus rhythm without evidence of significant ST elevations or depressions. Pt was treated in the ED with IVF, DuoNebs, Solu-Medrol, clonazepam, hydromorphone, ketorolac, ceftriaxone, and azithromycin. Pt is admitted to the hospital for treatment and further evaluation of acute on chronic hypoxemic and hypercapnic respiratory failure in the setting of acute asthma exacerbation. Acute on chronic hypoxemic and hypercapnic respiratory failure in the setting of acute asthma exacerbation Pt with SOB, ANDERSEN, cough x1 week, VBG PCO2 75, pt noted to be somnolent Placed on BiPAP with VBG improvement Continued wheezing and SOB despite ED treatments. Treated with Solu-Medrol, DuoNebs, and guaifenesin. Ultimately patient was noted to have a large hard mucus plug that was suctioned and when removed shortness of breath resolved. Patient was seen by pulmonology and Trach was changed. Patient feels well and is requesting discharge home. She will be discharged home to complete short course of oral steroids. Recommend outpatient follow-up with primary pulmonology group. Acute lactic acidosis Secondary to hypoxia, not sepsis. CXR negative for acute process, no fever or leukocytosis. No indication to continue abx for pneumonia Time Attestation Discharge Coordination Time (in mins): 32 Quality: Safe Use of Opioids Does Pt have an Active Cancer Diagnosis on the Problem List?: No Quality: Stroke Does the patient have a stroke diagnosis?: No Physical Exam Vital Signs: Vital Signs: Last Vital Signs Temp 97.7 F 08/12/24 08:00 Pulse 82 08/12/24 08:00 Resp 20 08/12/24 08:00 BP 157/83 H 08/12/24 08:00 Pulse Ox 92 08/12/24 08:00 O2 Del Method Room Air 08/12/24 08:00 O2 Flow Rate 1 08/12/24 03:14 Oxygen Flow Rate 2 08/11/24 08:09 BMI result Body Mass Index 40.0 Const: General: cooperative, comfortable, alert, awake and Physically active Nutritional Appearance: obese Orientation/consciousness: patient oriented x3 Resp: Other: dim no significant wheeze Effort & Inspection: normal respiratory effort, able to speak in complete sentences, no respiratory distress and no use of accessory muscles Neuro: General: patient oriented x3 DS: Data Data Completed and Pending Completed studies during hospitalization [Text1]: Procedures Dilation of Left Ureter with Intraluminal Device, Via Natural or Artificial Opening Endoscopic (06/11/21) Fluoroscopy of Left Kidney, Ureter and Bladder (06/11/21) Labs on day of discharge: Laboratory Results - last 24 hr 08/11/24 08/11/24 08/11/24 08:46 10:15 12:54 Hold Purple Top D-Dimer High Sensitivty < 150 VBG pH VBG pCO2 VBG pO2 VBG HCO3 VBG O2 Saturation VBG Base Excess Sodium Potassium Chloride Carbon Dioxide Anion Gap BUN Creatinine Estim Creat Clear Calc Estimated GFR POC Glucose Random Glucose Lactic Acid 2.4 H* Lactic Acid F/U @ 2Hr 4.4 H* Lactic Acid F/U @ 4Hr Calcium Magnesium B-Natriuretic Peptide < 10 Urine Color Urine Appearance Urine pH Ur Specific [place] Urine Protein Urine Glucose (UA) Urine Ketones Urine Blood Urine Nitrite Ur Leukocyte Esterase Urine RBC Urine WBC Ur Squamous Epith Cells Urine Bacteria Hyaline Casts 08/11/24 08/11/24 08/11/24 15:55 15:58 17:09 Hold Purple Top D-Dimer High Sensitivty VBG pH 7.33 7.32 VBG pCO2 59 57 VBG pO2 36 62 VBG HCO3 31 H 29 H VBG O2 Saturation 57.0 86.0 VBG Base Excess 4.3 2.6 Sodium Potassium Chloride Carbon Dioxide Anion Gap BUN Creatinine Estim Creat Clear Calc Estimated GFR POC Glucose Random Glucose Lactic Acid Lactic Acid F/U @ 2Hr Lactic Acid F/U @ 4Hr 3.1 H* Calcium Magnesium B-Natriuretic Peptide Urine Color Urine Appearance Urine pH Ur Specific [place] Urine Protein Urine Glucose (UA) Urine Ketones Urine Blood Urine Nitrite Ur Leukocyte Esterase Urine RBC Urine WBC Ur Squamous Epith Cells Urine Bacteria Hyaline Casts 08/11/24 08/11/24 08/12/24 21:07 22:17 00:33 Hold Purple Top D-Dimer High Sensitivty VBG pH VBG pCO2 VBG pO2 VBG HCO3 VBG O2 Saturation VBG Base Excess Sodium Potassium Chloride Carbon Dioxide Anion Gap BUN Creatinine Estim Creat Clear Calc Estimated GFR POC Glucose 580 H* 513 H* 429 H* Random Glucose Lactic Acid Lactic Acid F/U @ 2Hr Lactic Acid F/U @ 4Hr Calcium Magnesium B-Natriuretic Peptide Urine Color Urine Appearance Urine pH Ur Specific [place] Urine Protein Urine Glucose (UA) Urine Ketones Urine Blood Urine Nitrite Ur Leukocyte Esterase Urine RBC Urine WBC Ur Squamous Epith Cells Urine Bacteria Hyaline Casts 08/12/24 08/12/24 08/12/24 02:29 02:53 05:13 Hold Purple Top D-Dimer High Sensitivty VBG pH VBG pCO2 VBG pO2 VBG HCO3 VBG O2 Saturation VBG Base Excess Sodium 135 Potassium 4.8 Chloride 97 Carbon Dioxide 27 Anion Gap 16 BUN 16 Creatinine 0.89 Estim Creat Clear Calc 91.8 Estimated GFR > 60 POC Glucose 379 H* Random Glucose 409 H* Lactic Acid 3.6 H* Lactic Acid F/U @ 2Hr Lactic Acid F/U @ 4Hr Calcium 8.8 Magnesium 1.9 B-Natriuretic Peptide Urine Color Yellow Urine Appearance Clear Urine pH 7.0 Ur Specific [place] 1.015 Urine Protein Negative Urine Glucose (UA) >=1000 H Urine Ketones Negative Urine Blood Negative Urine Nitrite Negative Ur Leukocyte Esterase Negative Urine RBC 0-2 Urine WBC 0-5 Ur Squamous Epith Cells 3-5 Urine Bacteria None Seen Hyaline Casts 0-2 08/12/24 08/12/24 08/12/24 05:41 07:28 07:40 Hold Purple Top SEE NOTE D-Dimer High Sensitivty VBG pH 7.40 VBG pCO2 57 VBG pO2 46 VBG HCO3 35 H VBG O2 Saturation 65.0 VBG Base Excess 9.1 Sodium 137 Potassium 4.7 Chloride 98 Carbon Dioxide 29 Anion Gap 15 BUN 15 Creatinine 0.84 Estim Creat Clear Calc 97.2 Estimated GFR > 60 POC Glucose 357 H* Random Glucose 398 H* Lactic Acid Lactic Acid F/U @ 2Hr 2.4 H* Lactic Acid F/U @ 4Hr Calcium 8.6 Magnesium B-Natriuretic Peptide Urine Color Urine Appearance Urine pH Ur Specific [place] Urine Protein Urine Glucose (UA) Urine Ketones Urine Blood Urine Nitrite Ur Leukocyte Esterase Urine RBC Urine WBC Ur Squamous Epith Cells Urine Bacteria Hyaline Casts Discharge Plan Discharge Anticipated Discharge Date/Time: 08/12/24 10:40 Patient Disposition: Home, Self-Care Discharge Diagnosis: Acute on chronic hypercarbic respiratory failure Referrals: Flynn Granado MD [Primary Care Provider] - 1 Week Discharge Medications: New prednisone 20 mg tablet 20 mg PO DAILY 5 Days Qty: 5 0RF Continued cetirizine [Allergy Relief (cetirizine)] 10 mg tablet 10 mg PO DAILY PRN (Reason: allergy symptoms) Qty: 30 2RF ibuprofen 800 mg tablet 800 mg PO Q8H PRN (Reason: pain) lurasidone 80 mg tablet 80 mg PO BEDTIME insulin glargine [Lantus Solostar U-100 Insulin] 100 unit/mL (3 mL) insulin pen 20 unit subcut BEDTIME clonazepam 1 mg tablet 1 mg PO BID PRN (Reason: Anxiety) oxcarbazepine 300 mg tablet 300 mg PO BID famotidine 20 mg tablet 20 mg PO BID trazodone 150 mg tablet 150 mg PO BEDTIME PRN (Reason: Sleep) albuterol sulfate [Ventolin HFA] 90 mcg/actuation HFA aerosol inhaler 2 puff inhalation Q4H PRN (Reason: wheezing) fluticasone propionate 50 mcg/actuation spray,suspension 1 spray intranasal DAILY Rx Instructions: INHALE IN BOTH NOSTRILS metformin 500 mg tablet extended release 24 hr 1,000 mg PO BID escitalopram oxalate 20 mg tablet 20 mg PO BEDTIME promethazine 25 mg tablet 25 mg PO DAILY PRN (Reason: nausea) gabapentin 300 mg capsule 300 mg PO BID atorvastatin 20 mg Tablet 20 mg PO DAILY Dulera 200-5 mcg/actuation Hfa Aerosol Inhaler 2 puff INHALATION BID insulin lispro 100 unit/mL insulin pen 1 sliding scale dose subcut TIDAC 30 Days Qty: 15 3RF Rx Instructions: 2 to 20 units TID with meals per sliding scale (DME) blood-glucose meter [FreeStyle Lite Meter] Kit See Rx Instructions .ROUTE .MEDSUPPLY Qty: 1 0RF Rx Instructions: As directed (DME) FreeStyle Lite Strips Strip See Rx Instructions .ROUTE .MEDSUPPLY Qty: 100 12RF Rx Instructions: As directed 3 times a day (DME) lancets [FreeStyle Lancets] 28 gauge misc See Rx Instructions .ROUTE .MEDSUPPLY Qty: 100 12RF Rx Instructions: As directed 3 times a day Discharge Orders: Discharge Order (Routine); Ordered 08/12/24 Ordered By: Danika Vegas Activity on Discharge: As tolerated Stand Alone Forms: Patient Portal Discharge page Print Language: Latvian Care Plan Goals: See below Health Concerns: Acute on chronic hypercarbic respiratory failure-resolved Acute exacerbation of asthma mucus plug DM with hyperglycemia Plan of Treatment: Complete course of steroids Call to schedule follow-up appointment with outpatient pulmonary continue trach care Assessment: See discharge summary
[2024-08-12 11:25] LABS: Glucose, Whole Blood 367 mg/dL (60-115)
[2024-08-12] MEDS: clonazePAM 1 MG TABLET PO (11:28)
--- NOTE | 2024-08-12 12:43 | MHC.CM.PN ---
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
[2024-08-12 15:50] LABS: Glucose, Whole Blood 360 mg/dL (60-115)
--- NOTE | 2024-08-12 20:49 | P.CONPL_ITS ---
History of Present Illness History of Present Illness Consult date: 08/12/24 Chief complaint: COPD exacerbation Narrative: This is an in pt pulmonary consultation. The patient is a 53-year-old female with a PMH significant for chronic hypoxemic respiratory failure secondary to obesity hypoventilation syndrome/mild intermittent asthma on maryan O2 prn, chronic tracheostomy, hx of cardiac arrest, insulin-dependent type 2 diabetes, HTN, HLD, and bipolar disorder?who presents to the ED with?SOB, ANDERSEN, and difficulty breathing x1 week. Pt reports she has been tired, fatigued, just ?not been feeling well? for the past week. Had ANDERSEN with just walking to the bathroom. Increased cough, worse than baseline and productive of yellowish sputum. Initially thought it was allergies and was prescribed cetirizine by her PCP that she took to no effect. Presents today because she had worsening SOB and was ?super clumsy? this morning when she awoke. Also complains of pleuritic pain in the middle of her upper back. No fever or chills. Reports is no longer on continuous home O2: O2 has been decreased to 2 L at night and p.r.n.. When pt arrived to the ED was noted to be drowsy, fatigued, and with question of mild encephalopathy. Pt was found to be retaining CO2 and had increased work of breathing. Was placed on BiPAP for a few hours with good effect. In the ED pt was tachycardic up to 102 and tachypneic up to 30. Was found to be retaining CO2 and had increased work of breathing, so was placed on BiPAP for a few hours to good effect. Labs were significant for random glucose 336, lactic acid 2.4 with repeat 4.4 and 3.1, alk-phos 230, and CRP 4.93. No leukocytosis. Stable H&H. No significant electrolyte abnormalities. Renal function WNL. BNP negative. Tested negative for flu, COVID, RSV. Initial VBG with pH 7.32, pCO2 75, and bicarb 39; repeat after BiPAP with pH 7.32, pCO2 57, and bicarb 29. CXR showed no acute findings. EKG demonstrated normal sinus rhythm without evidence of significant ST elevations or depressions. Pt was treated in the ED with IVF, DuoNebs, Solu-Medrol, clonazepam, hydromorphone, ketorolac, ceftriaxone, and azithromycin. Pt is admitted to the hospital for treatment and further evaluation of acute on chronic hypoxemic and hypercapnic respiratory failure in the setting of acute asthma exacerbation. He tracheostomy was changed to a cuffed #8 Bivona. When suctioning a large mucus plug was removed and the patient felt much improved. Now she will be going home. I did place back the #6 Bivano uncuffed trach at the bedside. She gets her trach changes at [facility] and follows with pulmonary at [facility]. At baseline, the patient does have an increase of the CO2 consistent with chronic hypercarbic respiratory failure. She may benefit from AVAP or ventilator support at night time. 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 Review of Systems 2 Constitutional: Constitutional: Reports fatigue Cardiovascular: Cardiovascular: Reports dyspnea on exertion Respiratory: Respiratory: Reports cough, Reports dyspnea on exertion and Reports wheezing Gastrointestinal: Gastrointestinal: Reports no additional gastrointestinal complaints Genitourinary: Genitourinary: Reports no additional female genitourinary complaints Endocrine: Endocrine: Reports fatigue Allergic/Immunologic: Allergic/Immunologic: Reports wheezing [facility] Past Medical History Medical History Obesity (BMI 30-39.9) Bipolar depression Anxiety Insomnia Tracheostomy present Pure hypercholesterolemia Diabetes mellitus Asymptomatic bacteriuria Morbid obesity Partial small bowel obstruction Tracheostomy dependent History of cardiac arrest Wound drainage Takotsubo cardiomyopathy Kidney stones UTI (urinary tract infection) Bipolar 1 disorder Asthma Substance abuse Family History Family History Mother No pertinent family history Father No pertinent family history Surgical History Surgical History History of tracheostomy S/P ureteral stent placement H/O exploratory laparotomy S/P cholecystectomy Social History Social History Household Members: Spouse Household Members Other:: 1 Housing: Apartment Do you presently have visiting nurse or other home services: Yes ([employer]CR[employer]) Alcohol intake: former Comment: stayed in ed Patient Tobacco Use Status: Never used Tobacco Smoked in Last 30 Days: No e-Cigarette/Vaping Use: Never Used Second Hand Smoke Exposure: Yes Use of substances other than those prescribed or required for medical reasons: No Do you feel safe in your current relationship?: Yes Is there a partner from a previous relationship who is making you feel unsafe now?: No Advance Directives: Yes Advance Directives Information Provided: No Advance Directives on File: Yes Advance Directives Date on File: 02/04/23 Do you have a plan to hurt others: No Plan Recently lost weight without trying: Yes How much weight loss: 2-13 pounds Eating poorly because of decreased appetite: No Nutrition screen score: 3 Nutrition Risks: No Nutritional Risk Patient : No : No Poor oral hygiene: No service: No Current occupational status: disabled Cognitive needs: No Hearing needs: No Vision needs: Yes Meds Allergies Allergy/AdvReac Type Severity Reaction Status Date / Time pantoprazole Allergy Mild Redness of Verified 08/11/24 08:12 Skin Home Medications ?Medication ?Instructions ?Recorded ?Confirmed ?Last Taken ?Type albuterol sulfate 90 mcg/actuation 2 puff inhalation Q4H PRN wheezing 02/02/23 08/11/24 09/07/23 20:00 History aerosol inhaler (Ventolin HFA) clonazepam 1 mg tablet 1 mg PO BID PRN Anxiety 02/02/23 08/11/24 09/07/23 20:00 History escitalopram oxalate 20 mg tablet 20 mg PO BEDTIME 02/02/23 08/11/24 08/10/24 History famotidine 20 mg tablet 20 mg PO BID 02/02/23 08/11/24 08/10/24 History fluticasone propionate 50 1 spray intranasal DAILY allergies 02/02/23 08/11/24 08/10/24 History mcg/actuation nasal spray,suspension metformin 500 mg tablet,extended 1,000 mg PO BID 02/02/23 08/11/24 08/10/24 History release 24 hr oxcarbazepine 300 mg tablet 300 mg PO BID 02/02/23 08/11/24 08/10/24 History trazodone 150 mg tablet 150 mg PO BEDTIME PRN Sleep 02/02/23 08/11/24 09/07/23 20:00 History gabapentin 300 mg capsule 300 mg PO BID 03/26/24 08/11/24 08/10/24 History promethazine 25 mg tablet 25 mg PO DAILY PRN nausea 03/26/24 08/11/24 Unknown History atorvastatin 20 mg tablet 20 mg PO DAILY 05/31/24 08/11/24 08/10/24 History mometasone-formoterol HFA 200 2 puff inhalation BID 05/31/24 08/11/24 08/10/24 History mcg-5 mcg/actuation aerosol inhaler (Dulera) ibuprofen 800 mg tablet 800 mg PO Q8H PRN pain 08/11/24 08/11/24 Unknown History insulin glargine 100 unit/mL (3 20 unit subcut BEDTIME 08/11/24 08/11/24 08/10/24 History mL) subcutaneous pen (Lantus Solostar U-100 Insulin) lurasidone 80 mg tablet 80 mg PO BEDTIME 08/11/24 08/11/24 08/10/24 History Physical Exam 2 Vital Signs: Vital Signs: Last Vital Signs Temp 99.1 F 08/12/24 16:37 Pulse 91 08/12/24 16:37 Resp 18 08/12/24 16:37 BP 145/78 H 08/12/24 16:37 Pulse Ox 94 08/12/24 16:37 O2 Del Method Room Air 08/12/24 16:37 O2 Flow Rate 1 08/12/24 03:14 Oxygen Flow Rate 2 08/11/24 08:09 BMI result Body Mass Index 40.0 Const: General: cooperative, comfortable, alert, awake and Physically active Nutritional Appearance: obese Orientation/consciousness: patient oriented x3 Neck: Neck: Yes other (tracheostomy in place) Resp: Other: dim no significant wheeze Effort & Inspection: normal respiratory effort, able to speak in complete sentences, no respiratory distress and no use of accessory muscles Neuro: General: patient oriented x3 Results Laboratory Findings 08/11/24 08:46 08/12/24 05:41 Abnormal lab findings: Abnormal Labs 08/11/24 08/11/24 08/11/24 08:46 08:55 10:15 MCH 26.8 L Immature Gran % (Auto) 0.5 H Lymph % (Auto) 17.1 L Eos % (Auto) 5.8 H Eos # (Auto) 0.5 H Abs Immat Gran (auto) 0.04 H VBG HCO3 39 H Carbon Dioxide 33 H POC Glucose Random Glucose 336 H Lactic Acid 2.4 H* Lactic Acid F/U @ 2Hr Lactic Acid F/U @ 4Hr Alkaline Phosphatase 230 H C-Reactive Protein 4.93 H Urine Glucose (UA) 08/11/24 08/11/24 08/11/24 12:54 15:55 15:58 MCH Immature Gran % (Auto) Lymph % (Auto) Eos % (Auto) Eos # (Auto) Abs Immat Gran (auto) VBG HCO3 31 H Carbon Dioxide POC Glucose Random Glucose Lactic Acid Lactic Acid F/U @ 2Hr 4.4 H* Lactic Acid F/U @ 4Hr 3.1 H* Alkaline Phosphatase C-Reactive Protein Urine Glucose (UA) 08/11/24 08/11/24 08/11/24 17:09 21:07 22:17 MCH Immature Gran % (Auto) Lymph % (Auto) Eos % (Auto) Eos # (Auto) Abs Immat Gran (auto) VBG HCO3 29 H Carbon Dioxide POC Glucose 580 H* 513 H* Random Glucose Lactic Acid Lactic Acid F/U @ 2Hr Lactic Acid F/U @ 4Hr Alkaline Phosphatase C-Reactive Protein Urine Glucose (UA) 08/12/24 08/12/24 08/12/24 00:33 02:29 02:53 MCH Immature Gran % (Auto) Lymph % (Auto) Eos % (Auto) Eos # (Auto) Abs Immat Gran (auto) VBG HCO3 Carbon Dioxide POC Glucose 429 H* 379 H* Random Glucose 409 H* Lactic Acid 3.6 H* Lactic Acid F/U @ 2Hr Lactic Acid F/U @ 4Hr Alkaline Phosphatase C-Reactive Protein Urine Glucose (UA) 08/12/24 08/12/24 08/12/24 05:13 05:41 07:28 MCH Immature Gran % (Auto) Lymph % (Auto) Eos % (Auto) Eos # (Auto) Abs Immat Gran (auto) VBG HCO3 35 H Carbon Dioxide POC Glucose Random Glucose 398 H* Lactic Acid Lactic Acid F/U @ 2Hr 2.4 H* Lactic Acid F/U @ 4Hr Alkaline Phosphatase C-Reactive Protein Urine Glucose (UA) >=1000 H 08/12/24 08/12/24 08/12/24 07:40 11:18 15:46 MCH Immature Gran % (Auto) Lymph % (Auto) Eos % (Auto) Eos # (Auto) Abs Immat Gran (auto) VBG HCO3 Carbon Dioxide POC Glucose 357 H* 367 H* 360 H* Random Glucose Lactic Acid Lactic Acid F/U @ 2Hr Lactic Acid F/U @ 4Hr Alkaline Phosphatase C-Reactive Protein Urine Glucose (UA) Microbiology: Microbiology 08/11/24 10:15 Blood - Venous Blood Culture - Preliminary No growth after 24 hours. 08/11/24 10:15 Blood - Venous Blood Culture - Preliminary No growth after 24 hours. Assessment and Plan (1) Hypercarbia: Status: Acute (2) Acute exacerbation of chronic obstructive pulmonary disease: Status: Acute (3) Tracheostomy present: Status: Acute Plan continue respiratory therapy prednisone taper needs to keep humidification /trach collar to minimize mucus plugs trach care, consider trach with inner cannula consider nocturnal vent / Astral to help with chronic hypercarbic respiratory failure F/U with [facility] pulmonary soon, but if worsens again should come back to the hospital Procedures Date of Service Date of Service: 08/12/24
== END 2024-08-12 17:58 | disposition home or self-care (01) | DRG 141 ==
LOC: HO.ED 17:46 → HO.EDOVER 17:50 → HO.S3 20:43
PROVIDERS: Family Medicine; Internal Medicine; Admitting Provider Student in an Organized Health Care Education/Training Program; Emergency Provider Emergency Medicine; PCP Internal Medicine; Visit Provider Physician Assistant Medical
DX: J45.21 Mild intermittent asthma with (acute) exacerbation (principal); J96.21 Acute and chronic respiratory failure with hypoxia; E87.21 Acute metabolic acidosis; J96.22 Acute and chronic respiratory failure with hypercapnia; E11.65 Type 2 diabetes mellitus with hyperglycemia; E11.42 Type 2 diabetes mellitus with diabetic polyneuropathy; F39 Unspecified mood [affective] disorder; Z93.0 Tracheostomy status; Z20.822 Contact with and (suspected) exposure to COVID-19; Z79.4 Long term (current) use of insulin; Z79.51 Long term (current) use of inhaled steroids; Z79.84 Long term (current) use of oral hypoglycemic drugs; Z79.899 Other long term (current) drug therapy
CPT/HCPCS: 0241U; 36415; 71045; 80048; 80076; 81001; 82803; 82947; 83605; 83735; 83880; 85025; 85379; 86140; 87040; 93005; 94640; 94660; 99221; 99285; J0456; J0696; J1171; J1650; J1885; J2919; J3475

== ENCOUNTER → 2024-08-11 08:35 | Outpatient (BNV) | payer OTHER, SELFPAY | PROVIDERS: Emergency Provider Emergency Medicine; PCP Internal Medicine; Visit Provider Specialist | DX: R06.02 Shortness of breath (principal) | CPT/HCPCS: 71045 ==

== ENCOUNTER → 2024-08-11 08:35 | Outpatient (BNV) | payer OTHER, SELFPAY | PROVIDERS: Emergency Provider Emergency Medicine; PCP Internal Medicine; Visit Provider Internal Medicine Cardiovascular Disease | DX: R94.31 Abnormal electrocardiogram [ECG] [EKG] (principal); R06.02 Shortness of breath | CPT/HCPCS: 93010 ==

== ENCOUNTER → 2024-08-11 17:39 | Outpatient (BNV) | payer OTHER, SELFPAY | PROVIDERS: Admitting Provider Student in an Organized Health Care Education/Training Program; Emergency Provider Emergency Medicine; PCP Internal Medicine; Visit Provider Physician Assistant Medical | DX: R06.89 Other abnormalities of breathing (principal); J96.20 Acute and chronic respiratory failure, unspecified whether with hypoxia or hypercapnia; J45.901 Unspecified asthma with (acute) exacerbation | CPT/HCPCS: 99223; 99239 ==

== ENCOUNTER → 2024-08-11 17:39 | Outpatient (BNV) | payer OTHER, SELFPAY | PROVIDERS: Admitting Provider Student in an Organized Health Care Education/Training Program; Emergency Provider Emergency Medicine; PCP Internal Medicine; Visit Provider Hospitalist | DX: R06.89 Other abnormalities of breathing (principal); J44.1 Chronic obstructive pulmonary disease with (acute) exacerbation; Z93.0 Tracheostomy status | CPT/HCPCS: 99223 ==

== ENCOUNTER 2024-08-22 21:58 | Emergency (ER) | payer OTHER, SELFPAY ==
--- NOTE | ~2024-08-22 | XR_ITS ---
CLINICAL HISTORY: SOB and chest tightness 1 view chest x-ray Comparison: Chest x-ray from 08/11/2024. Findings: Tracheostomy tube is redemonstrated. Bilateral pulmonary opacities are nonspecific and may reflect pulmonary edema or pneumonitis given interstitial predominance. Mild developing small right pleural effusion. No pneumothorax in this portable image. Degenerative changes include imaged AC joints. IMPRESSION: Mild pulmonary opacities nonspecific and may reflect mild pulmonary edema. This document has been electronically signed by: Roby Levine MD on 08/22/2024 23:20:38
--- OUTSIDE RECORDS SUMMARY | 2024-08-22 22:09 | XMS_ITS | Clinical Summary ---
Author Organization [facility] [address] [place] [address] [place] [address] [place] Phone Care Team Providers Care Neurology Stroke Physician Name Role Phone Megan Anderson MD Primary [...] EACH DAY. 32 mL 07/11/19 25 Active famotidine (PEPCID) 20 mg tablet TAKE 1 TABLET BY MOUTH TWICE A DAY 180 tablet 1 08/02/19 25 Active Ventolin HFA 90 mcg/actuation inhalerIndicati ons:Moderate persistent asthma without complication INHALE 2 PUFFS BY MOUTH EVERY 6 (SIX) HOURS IF NEEDED FOR WHEEZING. COUGH 18 each 08/18/19 25 Active tiZANidine (ZANAFLEX) 4 mg tablet [...] 6.7 g 2 04/13/19 25 025 Discontinued albuterol HFA (Ventolin HFA) 90 mcg/actuation inhalerIndicati ons:Moderate persistent asthma without complication INHALE 2 PUFFS BY MOUTH EVERY 6 (SIX) HOURS IF NEEDED FOR WHEEZING. COUGH 18 each 07/27/19 25 025 Discontinued Active Problems Problem Noted [...] 08/05/2021 DVT of deep femoral vein, right (CMS/HCC V24, CM S/HCC V28) 05/28/2021 Assessment & Plan (02/02/2024 12:11 [...] complication, without long-term current use of insulin ([facility] V24, [facility] V28) 01/20/2018 Assessment & Plan (02/02/2024 12:11 [...] 4 months. Narcotic dependence, in vasu ssion ([facility] V24, [facility] V28) 11/02/2011 Overview (01/11/2024): On methadone Bilateral [...] Care Team Description 06/29/2024 Telephone Adult Medicine [address] [id number] Megan Anderson MD Forms/questionnaires ([facility] - Health Status Report) 06/11/2024 Telephone Adult [address] [phone] Caron Lea MA from Last 3 Months [...] 6mo and older 11/26/2019,11/13/2019,11/04/2018 PPD Test 08/30/2018 Encite SARS-CoV-2 COVID-19, mRNA, LNP-S, preservative free 04/20/2020,04/03/2020 Td Tetanus diptheria (Tdvax) 7yo and older 04/14/2006 Tdap Tetanus diptheria acell ular pertussis (Boostrix; Adacel) 7yo and older 01/06/2018 Surgical History Surgery Date Site/Laterality Comments OTHER SURGICAL HISTORY PROCEDURE: [place] ARTHRODESIS POSTERIOR SPINAL DFRM <6 VRT SGM UPPER GASTROINTESTINAL ENDOSCOPY 05/04/2019 PROCEDURE: [place] UPPER GI ENDOSCOPY PERFORMED; COMMENT: Visually normal on treatment with famotidine 40 mg every morning. CYSTOSCOPY 06/2021 PROCEDURE: [place] CYSTOURETHROSCOPY; COMMENT: Cystoscopy and stent placement for [...] essential hypertension PEA (Pulseless electrical ac tivity) ([facility] V24, [facility] V28) 11/06/2020 DX:PEA (Pulseless electrica l activity) ([facility]); COMMENT: Found at home PEA and apneic [facility] SICU admit 11/01/20 Pulmonary embolism ([facility] V24, [facility] V28) 05/28/2021 DX:Pulmonary embolism ([facility]) 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 DX:Necr otizing pancreatitis; COMMENT: [...] (05/21/2024) Anatomical Region Laterality Modality Ultrasound Provider [place] [facility] PROCEDURES Final Result * Annual BMP Blood Test (09/23/2023) Annual BMP Blood Test abstracted [facility] Provider HEALTH MAINTENANCE Final Result * (ABNORMAL) Lipid panel (09/23/2023) LDL/HDL Ratio 5(A) 0 - 4 Triglycerides 418(A) 0 - 150 mg/dL Cholesterol 149 0 - 200 mg/dL HDL 33(A) >=40 mg/dL LDL Cholesterol 33 0 - 100 mg/dL Blood Venous blood specimen / Unknown Result [facility] Provider LAB BLOOD ORDERABLES Laila l Result * Depression Screening (07/13/2023) Pathologist [facility] Depression Screening abstracted Result [facility] Provider HEALTH MAINTENANCE Final Result * (ABNORMAL) Hemoglobin A1c (07/06/2022) [facility] Hemoglobin A1C 9.7(A) <=6.5 % Blood Venous blood specimen / Unknown Result [facility] Provider LAB BLOOD ORDERABLES Laila l Result * Cervical Cancer Screening: HPV (06/17/2022) [facility] Cervical Cancer Screening: HPV negative, abstracted Result [facility] Provider HEALTH MAINTENANCE Final Result * Hepatitis C Screening (11/14/2008) [facility] Hepatitis C Screening abstracted [facility] Provider HEALTH MAINTENANCE Final Result * Urine Albumin Creatinine Ratio (12/11/2004) [facility] Urine Albumin Creatinine Ratio abstracted Result [facility] Provider HEALTH MAINTENANCE Final Result from Last 3 Months or Most Recently Relevant to Health Maintenance Insurance [facility] [address] PL[address] Care Teams Neurology Stroke Physician Relationship Specialty Start Date End Date Megan Anderson MD [address] [place] [id number] PCP - General Internal Medicine 10/12/21
[2024-08-22 22:11] VITALS: BP 121/75; BP 160/90; PULSE 95; PULSE 98; RESP 24; TEMP 37; O2SAT 93; O2SAT 95; BMI 41.2
--- NOTE | 2024-08-22 22:19 | ECG_ITS ---
Test Reason : CHEST PAIN Blood Pressure : */* mmHG Vent. Rate : 89 BPM Atrial Rate : 89 BPM P-R Int : 152 ms QRS Dur : 84 ms QT Int : 382 ms P-R-T Axes : 41 -8 33 degrees QTcB Int : 464 ms Normal sinus rhythm Possible Anterior infarct (cited on or before 31-May-2024) Abnormal ECG When compared with ECG of 11-Aug-2024 08:39, No significant change was found Referred By: Generic ED Physician Electronically Signed By: LAMBERT DE LA CRUZ MD
--- NOTE | 2024-08-22 22:41 | ED_ITS ---
HPI - SOB/Dyspnea General Chief Complaint: Dyspnea Stated Complaint: DIFFICULTY BREATHING, CHEST PAIN, TRACHED Time Seen by Provider: 08/22/24 22:31 Source: patient, EMS and old records reviewed Mode of arrival: EMS Limitations: no limitations History of Present Illness ED Provider: DR. 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 came in for increase shortness of breath with any minimal exertion, + nonproductive cough, no fever, no chills. No lower extremity swelling, no recent travel or prolonged immobilization. Patient complained of chest pain started 3 hours ago pain is localized to the mid chest with no radiation, gave the patient sublingual nitro that relieved the pain patient now is complaining of headache. Patient had recent hospitalization for acute on chronic hypercapnic respiratory failure. Patient never smoked cigarette but had history of secondhand smoker. Related Data Home Medications ?Medication ?Instructions ?Recorded ?Confirmed albuterol sulfate 90 mcg/actuation 2 puff inhalation Q4H PRN wheezing 02/02/23 08/11/24 aerosol inhaler (Ventolin HFA) clonazepam 1 mg tablet 1 mg PO BID PRN Anxiety 02/02/23 08/11/24 escitalopram oxalate 20 mg tablet 20 mg PO BEDTIME 02/02/23 08/11/24 famotidine 20 mg tablet 20 mg PO BID 02/02/23 08/11/24 fluticasone propionate 50 1 spray intranasal DAILY allergies 02/02/23 08/11/24 mcg/actuation nasal spray,suspension metformin 500 mg tablet,extended 1,000 mg PO BID 02/02/23 08/11/24 release 24 hr oxcarbazepine 300 mg tablet 300 mg PO BID 02/02/23 08/11/24 trazodone 150 mg tablet 150 mg PO BEDTIME PRN Sleep 02/02/23 08/11/24 gabapentin 300 mg capsule 300 mg PO BID 03/26/24 08/11/24 promethazine 25 mg tablet 25 mg PO DAILY PRN nausea 03/26/24 08/11/24 atorvastatin 20 mg tablet 20 mg PO DAILY 05/31/24 08/11/24 mometasone-formoterol HFA 200 2 puff inhalation BID 05/31/24 08/11/24 mcg-5 mcg/actuation aerosol inhaler (Dulera) ibuprofen 800 mg tablet 800 mg PO Q8H PRN pain 08/11/24 08/11/24 insulin glargine 100 unit/mL (3 20 unit subcut BEDTIME 08/11/24 08/11/24 mL) subcutaneous pen (Lantus Solostar U-100 Insulin) lurasidone 80 mg tablet 80 mg PO BEDTIME 08/11/24 08/11/24 Previous Rx's ?Medication ?Instructions ?Recorded blood sugar diagnostic (FreeStyle #100 ea 07/10/24 Lite Strips) blood-glucose meter (FreeStyle #1 ea 07/10/24 Lite Meter kit) lancets 28 gauge (FreeStyle #100 ea 07/10/24 Lancets) cetirizine 10 mg tablet (Allergy 10 mg PO DAILY PRN allergy 07/24/24 Relief (cetirizine)) symptoms #30 tabs prednisone 20 mg tablet 20 mg PO DAILY 5 days #5 tabs 08/12/24 insulin lispro 100 unit/mL 1 sliding scale dose subcut TIDAC 08/21/24 subcutaneous pen 30 days #15 mL Allergies Allergy/AdvReac Type Severity Reaction Status Date / Time pantoprazole Allergy Mild Redness of Verified 08/22/24 22:15 Skin Review of Systems 2 Review of Systems: All other systems are reviewed and are negative Constitutional: Reports as per HPI and Reports no additional constitutional complaints Eyes: Reports as per HPI and Reports no additional eye complaints Reports system reviewed and no additional complaints, except as documented Cardiovascular: Reports as per HPI and Reports no additional cardiovascular complaints Respiratory: Reports as per HPI and Reports no additional respiratory complaints Gastrointestinal: Reports as per HPI and Reports no additional gastrointestinal complaints Genitourinary: Reports no additional female genitourinary complaints Musculoskeletal: Reports no additional musculoskeletal complaints Skin/Breast: Reports system reviewed and no additional complaints, except as docu Psychiatric: Reports no additional psychiatric complaints Endocrine: Reports no additional endocrine complaints Hematologic/Lymphatic: Reports no additional hematologic/lymphatic complaints Allergic/Immunologic: Reports no additional allergic/immunologic complaints Reports system reviewed and no additional complaints, except as documented and Reports Abnormal speech present [facility] Past Medical History Medical History Obesity (BMI 30-39.9) Bipolar depression Anxiety Insomnia Tracheostomy present Pure hypercholesterolemia Diabetes mellitus Asymptomatic bacteriuria Morbid obesity Partial small bowel obstruction Tracheostomy dependent History of cardiac arrest Wound drainage Takotsubo cardiomyopathy Kidney stones UTI (urinary tract infection) Bipolar 1 disorder Asthma Substance abuse Surgical History History of tracheostomy S/P ureteral stent placement H/O exploratory laparotomy S/P cholecystectomy Family History Family History Mother No pertinent family history Father No pertinent family history Social History Social History Household Members: Spouse Household Members Other:: 1 Housing: Apartment Do you presently have visiting nurse 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) Alcohol intake: former Comment: stayed in ed Patient Tobacco Use Status: Never used Tobacco e-Cigarette/Vaping Use: Never Used Second Hand Smoke Exposure: Yes Advance Directives: Yes Advance Directives on File: Yes Advance Directives Date on File: 02/04/23 Do you have a plan to hurt others: No Plan service: No Current occupational status: disabled Cognitive needs: No Hearing needs: No Vision needs: Yes Physical Exam 2 Vital Signs: Vital Signs: Last Vital Signs Temp 98.6 F 08/22/24 22:11 Pulse 95 08/22/24 22:11 Resp 17 08/23/24 01:25 BP 121/75 08/22/24 22:11 Pulse Ox 93 08/22/24 22:11 O2 Del Method Nasal Cannula 08/22/24 22:11 Oxygen Flow Rate 2 08/22/24 22:11 BMI result Body Mass Index 41.2 Vital signs have been reviewed and appear to be correct. Blood pressure elevated. Heart rate normal. Respiratory rate normal. Temperature normal. Oxygen saturation normal. Appearance: Alert. Oriented X3. No acute distress. Head: Normal external exam. Normocephalic. Atraumatic. No Alberts signs noted. No raccoon eyes noted Eyes: PERRLA. EOMI. Conjunctiva and sclera normal. Eyelids normal. ENT: TM's Normal. Pharynx normal. Uvula midline. Moist mucous membranes. No trismus noted. No drooling noted. No muffled voice noted. Neck: Normal inspection. Neck supple. FROM. No adenopathy. Thyroid Normal. No meningeal signs. No neck mass noted. CVS: Normal heart rate and rhythm. Heart sound normal. No murmurs noted. Pulses normal throughout. Respiratory: No respiratory distress. Painless inspiration. Decreased breathing sounds bilaterally, diffuse expiratory wheezing with prolonged expiration. No accessory muscle usage noted or decreased air movement noted. Abdomen: Soft and nontender. Bowel sounds normal in all 4 quadrants. No distention noted. No organomegaly noted. No visible injury noted. Back: No CVA tenderness. Full range of motion noted. Skin: Skin warm and dry. Normal skin color. Normal skin turgor. No rashes/lesions/lacerations noted. Extremities: No lower extremity edema. Extremities exhibit normal range of motion. Extremities nontender. Neuro: Oriented X 3. Cranial nerve exam: II-XII are grossly intact No motor deficit. No sensory deficit. Reflexes normal. Course Reevaluation(s) Reevaluation #1: 53-year-old female with history of chronic respiratory failure presented with shortness of breath and chest pain. EKG is showing no acute ischemic change with negative troponin. Physical exam reveal no congestive heart failure findings with normal BMP. VBG reveals no significant abnormal blood gas. Patient is adamant to be discharged home and not to be admitted. Patient is still having the patient with chronic pain requesting Dilaudid for pain patient was given morphine. Will discharge the patient arrange for transportation. Time: 01:22 Medications Administered Discontinued Medications Generic Name Dose Route Start Last Admin Trade Name Freq PRN Reason Stop Dose Admin Ceftriaxone Sodium 1 gm 08/22/24 22:39 08/22/24 23:23 Ceftriaxone Sodium 1 Gm Vial IVPUSH 08/22/24 22:40 1 gm ONCE ONE Administration Magnesium Sulfate 2 gm in 50 mls @ 25 mls/hr 08/22/24 22:39 08/23/24 01:25 Magnesium Sulfate/H2o IV 08/23/24 00:38 Infused ONCE ONE Infusion Methylprednisolone Sodium Succinate 125 mg 08/22/24 22:39 08/22/24 23:23 Methylprednisolone Sod Succ 125 Mg Vial IVPUSH 08/22/24 22:40 125 mg ONCE ONE Administration Morphine Sulfate 1 mg 08/22/24 23:50 08/23/24 00:13 Morphine Sulfate 2 Mg/Ml Cartridge IVPUSH 08/22/24 23:51 1 mg ONCE ONE Administration Protocol Morphine Sulfate 2 mg 08/23/24 01:19 08/23/24 01:25 Morphine Sulfate 2 Mg/Ml Cartridge IVPUSH 08/23/24 01:20 2 mg ONCE ONE Administration Protocol Medical Decision Making Differential Diagnosis Differential Diagnoses: The differential diagnosis associated with the presentation includes (Asthma exacerbation, acute respiratory failure, abnormal blood gas value, electrolyte derangement, severe anemia, ACS, pneumonia, pneumothorax, CHF.) Admission/Observation Consideration of admission/observation: Escalation of care including admission/observation considered Lab Data MDM Lab Attestation statement: I reviewed the patient's lab results. 08/22/24 23:38 08/22/24 23:38 Labs: Lab Results 08/22/24 08/22/24 Range/Units 23:38 23:47 WBC 9.4 (4.8-10.8) X10*3/uL RBC 4.54 (4.20-5.50) X10*6/uL Hgb 12.3 (12.0-16.0) g/dl Hct 37.4 (37.0-47.0) % MCV 82.4 (80.0-98.0) fL MCH 27.1 (27.0-33.0) pg MCHC 32.9 (31.0-35.0) g/dl RDW 13.2 (11.0-16.0) % Plt Count 352 D (160-400) X10*3/uL MPV 9.2 L (9.4-12.3) fL Immature Gran % (Auto) 0.4 (0.0-0.4) % Neut % (Auto) 64.8 (45-73) % Lymph % (Auto) 22.5 (20-40) % Rhea % (Auto) 6.7 (2-11) % Eos % (Auto) 5.2 H (0-4) % Baso % (Auto) 0.4 (0-2) % Lymph # (Auto) 2.1 (1.2-4.9) X10*3/uL Rhea # (Auto) 0.6 (0.1-1.2) X10*3/uL Eos # (Auto) 0.5 H (0.0-0.4) X10*3/uL Baso # (Auto) 0.0 (0.0-0.2) X10*3/uL Abs Immat Gran (auto) 0.04 H (0.00-0.03) X10*3/uL Absolute Neuts (auto) 6.1 (2.0-8.3) x10*3/uL Absolute Nucleated RBC 0.000 (0.0-0.012) X10*3/uL Nucleated RBC % (auto) 0.0 (0.0-0.2) /100WBC VBG pH 7.42 (7.32-7.43) VBG pCO2 62 mmHg VBG pO2 68 mmHg VBG HCO3 41 H (22-26) mmol/L VBG O2 Saturation 91.0 % VBG Base Excess 14.1 mmol/L Sodium 136 (135-145) mmol/L Potassium 4.3 (3.3-5.1) mmol/L Chloride 93 L (96-108) mmol/L Carbon Dioxide 36 H (22-29) mmol/L Anion Gap 11 L (12-20) BUN 15 (9-16) mg/dL Creatinine 1.04 (0.5-1.4) mg/dL Estim Creat Clear Calc 71.8 Estimated GFR 55 Random Glucose 169 H (60-115) mg/dL Lactic Acid 1.3 (0.5-2.0) mmol/L Calcium 9.0 (8.4-10.2) mg/dL Total Bilirubin 0.3 (0.0-1.0) mg/dL AST 31 (5-31) U/L ALT 33 H (0-31) U/L Alkaline Phosphatase 188 H (39-117) U/L Troponin I High Sens < 2.7 (<3.5-17.0) ng/L B-Natriuretic Peptide 39 (<100) pg/mL Total Protein 6.6 (6.5-8.0) g/dL Albumin 3.6 (3.5-5.0) g/dL Independent Interpretation I performed an independent interpretation of an: Plain X-Ray (Chest:Mild pulmonary opacities nonspecific and may reflect mild pulmonary edema.) Radiology Impression Discussion of test interpretation with radiology: I have reviewed the radiologist's reading. Critical Care Time Critical Care Time Critical Care Time: Yes Total Critical Care Time: 60 Attestation: The patient was critically ill with a high probability of imminent or life- threatening deterioration. I spent greater than 30 minutes of discontinuous time evaluating the patient, delivering critical care at the bedside, discussing evaluating data with consultants. Critical care time does not include time spent performing separately billable procedures or teaching. Time spent performing critical care was 60 minutes. Discharge Plan Discharge Clinical Impression: Hypercarbia Asthma with exacerbation Qualifiers: Asthma severity: severe Asthma persistence: persistent Qualified Code(s): J 45.51 - Severe persistent asthma with (acute) exacerbation Patient Disposition: Home, Self-Care Instructions: Wheezing (ED) Prescriptions: No Action cetirizine [Allergy Relief (cetirizine)] 10 mg tablet 10 mg PO DAILY PRN (Reason: allergy symptoms) Qty: 30 2RF insulin lispro 100 unit/mL insulin pen 1 sliding scale dose subcut TIDAC 30 Days Qty: 15 3RF Rx Instructions: 2 to 20 units TID with meals per sliding scale ibuprofen 800 mg tablet 800 mg PO Q8H PRN (Reason: pain) lurasidone 80 mg tablet 80 mg PO BEDTIME insulin glargine [Lantus Solostar U-100 Insulin] 100 unit/mL (3 mL) insulin pen 20 unit subcut BEDTIME prednisone 20 mg tablet 20 mg PO DAILY 5 Days Qty: 5 0RF clonazepam 1 mg tablet 1 mg PO BID PRN (Reason: Anxiety) oxcarbazepine 300 mg tablet 300 mg PO BID famotidine 20 mg tablet 20 mg PO BID trazodone 150 mg tablet 150 mg PO BEDTIME PRN (Reason: Sleep) albuterol sulfate [Ventolin HFA] 90 mcg/actuation HFA aerosol inhaler 2 puff inhalation Q4H PRN (Reason: wheezing) fluticasone propionate 50 mcg/actuation spray,suspension 1 spray intranasal DAILY Rx Instructions: INHALE IN BOTH NOSTRILS metformin 500 mg tablet extended release 24 hr 1,000 mg PO BID escitalopram oxalate 20 mg tablet 20 mg PO BEDTIME promethazine 25 mg tablet 25 mg PO DAILY PRN (Reason: nausea) gabapentin 300 mg capsule 300 mg PO BID atorvastatin 20 mg Tablet 20 mg PO DAILY Dulera 200-5 mcg/actuation Hfa Aerosol Inhaler 2 puff INHALATION BID (DME) blood-glucose meter [FreeStyle Lite Meter] Kit See Rx Instructions .ROUTE .MEDSUPPLY Qty: 1 0RF Rx Instructions: As directed (DME) FreeStyle Lite Strips Strip See Rx Instructions .ROUTE .MEDSUPPLY Qty: 100 12RF Rx Instructions: As directed 3 times a day (DME) lancets [FreeStyle Lancets] 28 gauge misc See Rx Instructions .ROUTE .MEDSUPPLY Qty: 100 12RF Rx Instructions: As directed 3 times a day Referrals: Selvin Barnes MD [Physician] - Print Language: [place]
[2024-08-22] MEDS: cefTRIAXone sodium 1 GM VIAL IVPUSH (23:23)
[2024-08-22] MEDS: Magnesium Sulfate/H2O 2 GM/50 ML PIGGYBACK IV (23:24)
[2024-08-22 23:47] LABS: MANUAL DIFF FLAG NO
[2024-08-22 23:50] LABS: Basophils Percent Auto 0.4 % (0-2); Eosinophils Absolute Auto 0.5 X10*3/uL (0.0-0.4); Eosinophils Percent Auto 5.2 % (0-4); Hematocrit 37.4 % (37.0-47.0); Hemoglobin 12.3 g/dl (12.0-16.0); Imm Gran Abs Auto 0.04 X10*3/uL (0.00-0.03); Imm Gran Pct Auto 0.4 % (0.0-0.4); Lymphocytes Absolute Auto 2.1 X10*3/uL (1.2-4.9); Lymphocytes Percent Auto 22.5 % (20-40); Mean Corpuscular HGB Conc 32.9 g/dl (31.0-35.0); Mean Corpuscular Hemoglobin 27.1 pg (27.0-33.0); Mean Corpuscular Volume 82.4 fL (80.0-98.0); Mean Platelet Volume 9.2 fL (9.4-12.3); Monocytes Absolute Auto 0.6 X10*3/uL (0.1-1.2); Monocytes Percent Auto 6.7 % (2-11); Neutrophils Absolute Auto 6.1 x10*3/uL (2.0-8.3); Neutrophils Percent Auto 64.8 % (45-73); Platelet Count 352 X10*3/uL (160-400); Red Blood Count 4.54 X10*6/uL (4.20-5.50); Red Cell Distribution Width 13.2 % (11.0-16.0); White Blood Count 9.4 X10*3/uL (4.8-10.8)
[2024-08-23 00:09] LABS: VBG Base Excess 14.1 mmol/L; VBG HCO3 41 mmol/L (22-26); VBG pCO2 62 mmHg; VBG pH 7.42 (7.32-7.43); VBG pO2 68 mmHg
[2024-08-23 00:13] VITALS: RESP 22
[2024-08-23] MEDS: Morphine Sulfate 2 MG/ML CARTRIDGE 1 MG IVPUSH (00:13)
[2024-08-23 00:18] LABS: Lactic Acid 1.3 mmol/L (0.5-2.0)
[2024-08-23 00:19] LABS: Alanine Aminotransferase 33 U/L (0-31); Albumin Level 3.6 g/dL (3.5-5.0); Alkaline Phosphatase 188 U/L (39-117); Anion Gap 11 (12-20); Aspartate Amino Transferase 31 U/L (5-31); Bilirubin Total 0.3 mg/dL (0.0-1.0); Blood Urea Nitrogen 15 mg/dL (9-16); Carbon Dioxide 36 mmol/L (22-29); Chloride 93 mmol/L (96-108); Creatinine Clr Calc Pharmacy 71.8; Estimated Glomerular Filt Rate 55; Glucose Random 169 mg/dL (60-115); Potassium 4.3 mmol/L (3.3-5.1); Sodium 136 mmol/L (135-145); Total Protein 6.6 g/dL (6.5-8.0)
--- NOTE | 2024-08-23 00:23 | PC.NURSE ---
titrated to room air. maintaining >92% SpO2 at this time
[2024-08-23 00:29] LABS: Venous Blood Gas Refer to POC result
[2024-08-23 00:35] LABS: Troponin-I High Sensitivity < 2.7 ng/L (<3.5-17.0)
[2024-08-23 00:43] VITALS: RESP 17
[2024-08-23 01:16] LABS: B Type Natriuretic Peptide 39 pg/mL (<100)
[2024-08-23 01:25] VITALS: RESP 17
[2024-08-23] MEDS: Morphine Sulfate 2 MG/ML CARTRIDGE IVPUSH (01:25)
[2024-08-23 02:30] VITALS: BP 118/63; PULSE 78; RESP 20; TEMP 36.8; O2SAT 95
== END 2024-08-23 04:19 | disposition home or self-care (01) ==
PROVIDERS: Emergency Provider Emergency Medicine
DX: R06.02 Shortness of breath (principal); J45.51 Severe persistent asthma with (acute) exacerbation; R07.9 Chest pain, unspecified; R51.9 Headache, unspecified; E11.9 Type 2 diabetes mellitus without complications; I10 Essential (primary) hypertension; E78.5 Hyperlipidemia, unspecified; E66.9 Obesity, unspecified; Z68.41 Body mass index [BMI] 40.0-44.9, adult; F19.11 Other psychoactive substance abuse, in remission; J44.9 Chronic obstructive pulmonary disease, unspecified; Z99.81 Dependence on supplemental oxygen; Z93.0 Tracheostomy status; Z79.4 Long term (current) use of insulin; Z79.84 Long term (current) use of oral hypoglycemic drugs; Z79.02 Long term (current) use of antithrombotics/antiplatelets; Z79.899 Other long term (current) drug therapy; Z86.74 Personal history of sudden cardiac arrest
CPT/HCPCS: 36415; 71045; 80053; 82803; 83605; 83880; 84484; 85025; 93005; 96365; 96366; 96375; 96376; 99284; J0696; J2270; J2919; J3475

== ENCOUNTER → 2024-08-22 22:19 | Outpatient (BNV) | payer OTHER, SELFPAY | PROVIDERS: Emergency Provider Emergency Medicine; Visit Provider Radiology Neuroradiology | DX: R91.8 Other nonspecific abnormal finding of lung field (principal) | CPT/HCPCS: 71045 ==

== ENCOUNTER → 2024-08-22 22:19 | Outpatient (BNV) | payer OTHER, SELFPAY | PROVIDERS: Emergency Provider Emergency Medicine; Visit Provider Internal Medicine Cardiovascular Disease | DX: R94.31 Abnormal electrocardiogram [ECG] [EKG] (principal); R07.9 Chest pain, unspecified | CPT/HCPCS: 93010 ==

== ENCOUNTER 2024-08-28 04:41 | Inpatient (IN) | payer OTHER, SELFPAY ==
[2024-08-28] VITALS (8 sets, daily range): BP systolic 116–137; BP diastolic 46–68; PULSE 78–96; RESP 14–17; TEMP 36.7–37.1; O2SAT 93–97; BMI 42.2; BMI 40.1
--- NOTE | ~2024-08-28 | CT_ITS ---
CLINICAL HISTORY: abdominal pain CT abdomen and pelvis with IV contrast Comparison: CT/SR - CT ABDOMEN PELVIS W IV CON - 05/31/24 02:30 EDT Findings: Lung bases show no active disease. No dependent layering pleural effusions. The heart is not enlarged. Coronary artery calcifications: None. Hepatic steatosis. No focal hepatic lesions. Patent hepatic and portal veins. Post cholecystectomy. Homogeneous enhancement of the pancreas. No splenomegaly. Normal adrenal glands. Symmetrical renal excretion with no segmental or diffuse renal parenchymal disease or evidence of obstructive uropathy/hydroureteronephrosis. Stable renal cortical cysts on the right. Normal caliber abdominal aorta. Large ventral abdominal wall hernia containing both large and small bowel stomach and omentum.Mesenteric edema. No free air.Trace ascites.Mid small bowel obstruction transition point lower mid abdomen. There is mild fecalization of the small bowel proximal to this point with bowel dilatation at 3.2 cm.Appendix not visualized.IVC filter in-situ. No intraperitoneal, retroperitoneal, pelvic or inguinal masses lymphadenopathy or abnormal fluid collections. Stool is noted throughout the colon. No vertebral body compression fractures or spondylolisthesis. No bony destructive lesions. Disc cage L4-5. Impression: 1. Large ventral abdominal wall hernia stable mid small bowel obstruction with mesenteric edema and trace ascites but no free air or pneumatosis intestinalis. The transition point is in the lower mid abdomen level bowel obstruction is probably partial or near complete. Similar findings were demonstrated on CT dated 05/31/2024. The colon is full of stool. 2. Hepatic steatosis. Post cholecystectomy. Appendix not visualized. No significant diverticular disease. 3. Stable ancillary findings. This document has been electronically signed by: Jose Tsang MD on 08/28/2024 06:40:00
--- NOTE | 2024-08-28 04:53 | ED_ITS ---
HPI - Abdominal Pain General Chief Complaint: Abdominal Pain Stated Complaint: ABDOMINAL PAIN W/ VOMITTING Time Seen by Provider: 08/28/24 04:43 Source: patient and EMS Mode of arrival: EMS Limitations: no limitations History of Present Illness ED Provider: HPI narrative: 53-year-old woman with multiple medical problems, presenting with abdominal pain, she has had history of SBO, necrotic pancreatitis, states went to bed with some abdominal discomfort and woke up with significant amount of pain that she has not felt for awhile. Has had no dysuria hematuria no chest pain or shortness of breath. Related Data Home Medications ?Medication ?Instructions ?Recorded ?Confirmed albuterol sulfate 90 mcg/actuation 2 puff inhalation Q4H PRN wheezing 02/02/23 08/11/24 aerosol inhaler (Ventolin HFA) clonazepam 1 mg tablet 1 mg PO BID PRN Anxiety 02/02/23 08/11/24 escitalopram oxalate 20 mg tablet 20 mg PO BEDTIME 02/02/23 08/11/24 famotidine 20 mg tablet 20 mg PO BID 02/02/23 08/11/24 fluticasone propionate 50 1 spray intranasal DAILY allergies 02/02/23 08/11/24 mcg/actuation nasal spray,suspension metformin 500 mg tablet,extended 1,000 mg PO BID 02/02/23 08/11/24 release 24 hr oxcarbazepine 300 mg tablet 300 mg PO BID 02/02/23 08/11/24 trazodone 150 mg tablet 150 mg PO BEDTIME PRN Sleep 02/02/23 08/11/24 gabapentin 300 mg capsule 300 mg PO BID 03/26/24 08/11/24 atorvastatin 20 mg tablet 20 mg PO DAILY 05/31/24 08/11/24 mometasone-formoterol HFA 200 2 puff inhalation BID 05/31/24 08/11/24 mcg-5 mcg/actuation aerosol inhaler (Dulera) insulin glargine 100 unit/mL (3 20 unit subcut BEDTIME 08/11/24 08/11/24 mL) subcutaneous pen (Lantus Solostar U-100 Insulin) lurasidone 80 mg tablet 80 mg PO BEDTIME 08/11/24 08/11/24 Previous Rx's ?Medication ?Instructions ?Recorded blood sugar diagnostic (FreeStyle #100 ea 07/10/24 Lite Strips) blood-glucose meter (FreeStyle #1 ea 07/10/24 Lite Meter kit) lancets 28 gauge (FreeStyle #100 ea 07/10/24 Lancets) cetirizine 10 mg tablet (Allergy 10 mg PO DAILY PRN allergy 07/24/24 Relief (cetirizine)) symptoms #30 tabs prednisone 20 mg tablet 20 mg PO DAILY 5 days #5 tabs 08/12/24 insulin lispro 100 unit/mL 1 sliding scale dose subcut TIDAC 08/21/24 subcutaneous pen 30 days #15 mL ibuprofen 800 mg tablet 800 mg PO Q8H PRN pain #30 tabs 08/25/24 promethazine 25 mg tablet 25 mg PO DAILY PRN nausea #30 tabs 08/25/24 Allergies Allergy/AdvReac Type Severity Reaction Status Date / Time pantoprazole Allergy Mild Redness of Verified 08/28/24 04:52 Skin Review of Systems Constitutional: Reports as per HPI REPLACED BY [facility] Past Medical History Medical History Obesity (BMI 30-39.9) Bipolar depression Anxiety Insomnia Tracheostomy present Pure hypercholesterolemia Diabetes mellitus Asymptomatic bacteriuria Morbid obesity Partial small bowel obstruction Tracheostomy dependent History of cardiac arrest Wound drainage Takotsubo cardiomyopathy Kidney stones UTI (urinary tract infection) Bipolar 1 disorder Asthma Substance abuse Surgical History History of tracheostomy S/P ureteral stent placement H/O exploratory laparotomy S/P cholecystectomy Family History Family History Mother No pertinent family history Father No pertinent family history Social History Social History Household Members: Spouse Household Members Other:: 1 Housing: Apartment Do you presently have visiting nurse 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) Alcohol intake: former Comment: stayed in ed Patient Tobacco Use Status: Never used Tobacco Smoked in Last 30 Days: No e-Cigarette/Vaping Use: Never Used Second Hand Smoke Exposure: Yes Use of substances other than those prescribed or required for medical reasons: No Advance Directives: Yes Advance Directives on File: Yes Advance Directives Date on File: 02/04/23 Patient : No service: No Current occupational status: disabled Cognitive needs: No Hearing needs: No Vision needs: Yes Physical Exam ED Vital Signs: Vital Signs - 24 hr 08/28/24 04:50 08/28/24 05:47 Temperature 98.8 F Pulse Rate 88 96 Respiratory Rate 16 16 Blood Pressure 125/46 L 123/49 L Pulse Oximetry 96 94 Oxygen Delivery Method Nasal Cannula Nasal Cannula Oxygen Flow Rate 2 BMI result Body Mass Index 42.2 Const Other: * Gen: ?Chronically ill-appearing * Neck: Trach in place * CV: RRR, no obvious murmurs appreciated * Resp: ?No wheezing rales rhonchi no stridor moving air well * Abd: ?Bowel sounds are decreased, generalized tenderness to palpation, * Skin: Warm, dry, intact, * Neuro: ?Alert and oriented x3, moving upper and lower extremities symmetrically, no obvious facial asymmetry noted Medical Decision Making Medical Decision Making [facility] Narrative: 04:55 patient is presenting with abdominal pain in the setting of prior SBO as we will obtain further imaging, we will medicate for pain, she was recently in the emergency department for respiratory issues that point her chest x-ray, blood work has been reassuring, disposition to be determined based on imaging 647 am patient is sleeping comfortably, CT reveals SBO, page Dr. Rai, it seems that she is has a stable SBO and has been demonstrated on prior imaging Differential Diagnosis Differential Diagnoses: The differential diagnosis associated with the presentation includes Small bowel obstruction Constipation Ileus Peptic ulcer disease Pancreatitis Cholecystitis Cholelithiasis Admission/Observation Consideration of admission/observation: Escalation of care including admission/observation considered Lab Data [facility] Lab Attestation statement: I reviewed the patient's lab results. 08/28/24 05:03 08/28/24 05:03 Labs: Lab Results 08/28/24 Range/Units 05:03 WBC 10.6 (4.8-10.8) X10*3/uL RBC 4.77 (4.20-5.50) X10*6/uL Hgb 13.0 (12.0-16.0) g/dl Hct 39.4 (37.0-47.0) % MCV 82.6 (80.0-98.0) fL MCH 27.3 (27.0-33.0) pg MCHC 33.0 (31.0-35.0) g/dl RDW 13.5 (11.0-16.0) % Plt Count 303 (160-400) X10*3/uL MPV 9.6 (9.4-12.3) fL Immature Gran % (Auto) 0.3 (0.0-0.4) % Neut % (Auto) 81.7 H (45-73) % Lymph % (Auto) 9.5 L (20-40) % [place] % (Auto) 4.9 (2-11) % Eos % (Auto) 3.3 (0-4) % Baso % (Auto) 0.3 (0-2) % Lymph # (Auto) 1.0 L (1.2-4.9) X10*3/uL [place] # (Auto) 0.5 (0.1-1.2) X10*3/uL Eos # (Auto) 0.4 (0.0-0.4) X10*3/uL Baso # (Auto) 0.0 (0.0-0.2) X10*3/uL Abs Immat Gran (auto) 0.03 (0.00-0.03) X10*3/uL Absolute Neuts (auto) 8.7 H (2.0-8.3) x10*3/uL Absolute Nucleated RBC 0.000 (0.0-0.012) X10*3/uL Nucleated RBC % (auto) 0.0 (0.0-0.2) /100WBC Sodium 133 L (135-145) mmol/L Potassium 4.6 (3.3-5.1) mmol/L Chloride 94 L (96-108) mmol/L Carbon Dioxide 30 H (22-29) mmol/L Anion Gap 14 (12-20) BUN 21 H (9-16) mg/dL Creatinine 1.11 (0.5-1.4) mg/dL Estim Creat Clear Calc 68.3 Estimated GFR 51 Random Glucose 436 H* (60-115) mg/dL Lactic Acid 1.6 (0.5-2.0) mmol/L Calcium 8.4 D (8.4-10.2) mg/dL Total Bilirubin 0.4 (0.0-1.0) mg/dL AST 16 (5-31) U/L ALT 19 (0-31) U/L Alkaline Phosphatase 182 H (39-117) U/L Total Protein 6.3 L (6.5-8.0) g/dL Albumin 3.5 (3.5-5.0) g/dL Lipase 8 (8-78) U/L Medications Administered Discontinued Medications Generic Name Dose Route Start Last Admin Trade Name Frank PRN Reason Stop Dose Admin Hydromorphone HCl 0.5 mg 08/28/24 04:49 08/28/24 04:58 Hydromorphone Hcl 1 Mg/Ml Syringe IVPUSH 08/28/24 04:50 0.5 mg ONCE ONE Administration Protocol Insulin Human Lispro 12 unit 08/28/24 05:36 08/28/24 05:53 Insulin Lispro 100 Unit/Ml 3 Ml Vial SUBCUT 08/28/24 05:37 12 unit ONCE ONE Administration Iohexol 100 ml 08/28/24 05:39 08/28/24 05:40 Iohexol 350 Mg/Ml 100 Ml Infus..Btl IV 08/28/24 05:40 100 ml ONCE ONE Administration Ondansetron HCl 4 mg 08/28/24 04:51 08/28/24 04:58 Ondansetron Hcl 4 Mg/2 Ml Vial IVPUSH 08/28/24 04:52 Not Given ONCE ONE Critical Care Time Critical Care Time Total Critical Care Time: 45 Attestation: Time is exclusive of separately billable procedures. Time includes: direct patient care, patient reassessment, coordination of patient care, interpretation of data (laboratory data, pulse oximetry, arterial blood gases and chest xrays), review of patient's medical records, medical consultation and documentation of patient care. Procedures excluded from critical care time: central intravenous line placement and electrocardiography. Discharge Plan Discharge Clinical Impression: Abdominal pain, SBO (small bowel obstruction) Diabetes Qualifiers: Diabetes mellitus type: type 2 Diabetes mellitus skiver uppers or linings insulin use: with chcf use Diabetes mellitus complication status: with hyperglycemia Q ualified Code(s): E11.65 - Type 2 diabetes mellitus with hyperglycemia Patient Disposition: Admitted As Inpatient Print Language: Pashto
[2024-08-28] MEDS: HYDROmorphone HCl 1 MG/ML SYRINGE 0.5 MG IVPUSH ×2 (04:58→08:42)
[2024-08-28 05:08] LABS: Basophils Percent Auto 0.3 % (0-2); Eosinophils Absolute Auto 0.4 X10*3/uL (0.0-0.4); Eosinophils Percent Auto 3.3 % (0-4); Hematocrit 39.4 % (37.0-47.0); Imm Gran Abs Auto 0.03 X10*3/uL (0.00-0.03); Imm Gran Pct Auto 0.3 % (0.0-0.4); Lymphocytes Percent Auto 9.5 % (20-40); MANUAL DIFF FLAG NO; Mean Corpuscular Hemoglobin 27.3 pg (27.0-33.0); Mean Corpuscular Volume 82.6 fL (80.0-98.0); Mean Platelet Volume 9.6 fL (9.4-12.3); Monocytes Absolute Auto 0.5 X10*3/uL (0.1-1.2); Monocytes Percent Auto 4.9 % (2-11); Neutrophils Absolute Auto 8.7 x10*3/uL (2.0-8.3); Neutrophils Percent Auto 81.7 % (45-73); Platelet Count 303 X10*3/uL (160-400); Red Blood Count 4.77 X10*6/uL (4.20-5.50); Red Cell Distribution Width 13.5 % (11.0-16.0); White Blood Count 10.6 X10*3/uL (4.8-10.8)
[2024-08-28 05:25] LABS: Lactic Acid 1.6 mmol/L (0.5-2.0)
[2024-08-28 05:31] LABS: Alanine Aminotransferase 19 U/L (0-31); Albumin Level 3.5 g/dL (3.5-5.0); Alkaline Phosphatase 182 U/L (39-117); Anion Gap 14 (12-20); Aspartate Amino Transferase 16 U/L (5-31); Bilirubin Total 0.4 mg/dL (0.0-1.0); Blood Urea Nitrogen 21 mg/dL (9-16); Calcium 8.4 mg/dL (8.4-10.2); Carbon Dioxide 30 mmol/L (22-29); Chloride 94 mmol/L (96-108); Creatinine Clr Calc Pharmacy 68.3; Estimated Glomerular Filt Rate 51; Glucose Random 436 mg/dL (60-115); Lipase 8 U/L (8-78); Potassium 4.6 mmol/L (3.3-5.1); Sodium 133 mmol/L (135-145); Total Protein 6.3 g/dL (6.5-8.0)
[2024-08-28] MEDS: iohexoL 350 MG/ML 100 ML INFUS..BTL IV (05:40)
[2024-08-28] MEDS: Insulin Lispro 100 UNIT/ML 3 ML VIAL 12 UNIT SUBCUT (05:53)
--- NOTE | 2024-08-28 07:01 | PC.NURSE ---
This RN assumed care of patient @ 0700. Patient A&O x 3. Takes pills whole. Patient able to ambulate independently w/o assisting device. Patient was sleeping when coming onto shift. Patient c/o left abdomen pain rated 8/10. CT abdomen/pelvis displays stable SBO. Patient hypertensive 151/66. Patient currently wearing O2 2 L NC 97%, patient wears O2 at night time. Patient 92% RA. Call aaron in reach. Plan of care on going
--- NOTE | 2024-08-28 08:11 | PC.RT ---
pt admitted early this am. RT not notified that pt was here. Pt has a 6.0 Bivona trach with a pmv on and 2 l n/c. 6.0 portex trach/ambu bag/ sxn catheter and trach ties placed at bedside and RN aware. Spoke to educator and she will discuss the team about this.
[2024-08-28 08:24] LABS: Glucose, Whole Blood 325 mg/dL (60-115)
[2024-08-28] MEDS: Lactated Ringers 1,000 ML 125 ML IVCONT ×2 (08:41→17:07)
[2024-08-28] MEDS: Enoxaparin Sodium 40 MG/0.4 ML SYRINGE SUBCUT (08:42)
--- NOTE | 2024-08-28 08:45 | PHA.MEDREC ---
Addendum entered by Katty Birmingham sonny 08/28/24 09:09: reviewed Original Note: Pharmacy Consult ? Medication Reconciliation Pharmacy has completed the medication reconciliation. Spoke with pt and she confirmed her medications. DC packet from 08/12 matches what pt confirmed as well.
--- NOTE | 2024-08-28 09:09 | PM.IMHP ---
History of Present Illness Date of Service: 08/28/24 Chief Complaint: abdominal pain, nausea/vomiting The patient is a 53 year old F with a PMH of prior intraabdominal surgery (necrotizing pancreatitis - 4 years ago), DM, hisory of trach, chronic resp failure on 3L O2 as needed, DM, obesity hypoventilation syndrome/mild intermittent asthma, bipolar disorder and multiple others who presents to [facility] ED with a 1 day history of mid abdominal pain which began the evening prior to hospitalization. The patient reports several episodes of nonbilious vomiting. She reports last bowel movement 24 hours prior to hospitalization but endorses that she is continuing to have flatus. She denies any cardiac or respiratory symptoms. She reports pain is the primary issue with no improvements with her IV analgesics in the ED. Work up in the ED showed CT findings showing SBO. The patient is declinging NG tube placement. She has been treated with IV zofran, IV dilaudid 0.5mg x 1; Her glucose is elevated > 400 and she has been given 12 units of lispro. The general surgery team has been notified by the ED provider. She will now be admitted for further management of SBO. Review of Systems Review of Systems: Negative except HPI/interval history. [facility] Medical History Obesity (BMI 30-39.9) Bipolar depression Anxiety Insomnia Tracheostomy present Pure hypercholesterolemia Diabetes mellitus Asymptomatic bacteriuria Morbid obesity Partial small bowel obstruction Tracheostomy dependent History of cardiac arrest Wound drainage Takotsubo cardiomyopathy Kidney stones UTI (urinary tract infection) Bipolar 1 disorder Asthma Substance abuse Family History Mother No pertinent family history Father No pertinent family history Surgical History History of tracheostomy S/P ureteral stent placement H/O exploratory laparotomy S/P cholecystectomy Social History Household Members: Spouse Household Members Other:: 1 Housing: Apartment Do you presently have visiting nurse or other home services: Yes ([employer]) Alcohol intake: former Comment: stayed in ed Patient Tobacco Use Status: Never used Tobacco Smoked in Last 30 Days: No e-Cigarette/Vaping Use: Never Used Second Hand Smoke Exposure: Yes Use of substances other than those prescribed or required for medical reasons: No Advance Directives: Yes Advance Directives on File: Yes Advance Directives Date on File: 02/04/23 Patient : No service: No Current occupational status: disabled Cognitive needs: No Hearing needs: No Vision needs: Yes Meds Allergies Allergy/AdvReac Type Severity Reaction Status Date / Time pantoprazole Allergy Mild Redness of Verified 08/28/24 04:52 Skin Active Medications: Current Medications Acetaminophen (Acetaminophen 325 Mg Tablet) 650 mg PO Q6H PRN PRN Reason: Pain, Mild 1-3,fever,headache Calcium Carbonate (Calcium Carbonate 750 Mg Tab.Chew) 750 mg PO Q4H PRN PRN Reason: Heartburn Enoxaparin Sodium (Enoxaparin Sodium 40 Mg/0.4 Ml Syringe) 40 mg SUBCUT Q24H [facility] Last Admin: 08/28/24 08:42 Dose: 40 mg Hydromorphone HCl (Hydromorphone Hcl 1 Mg/Ml Syringe) 1 mg IVPUSH Q4H PRN; Protocol PRN Reason: Pain, Severe (Pain Scale 7-10) Lactated Ringer's (Lr) 1,000 mls @ 125 mls/hr IVCONT .Q8H [facility] Last Admin: 08/28/24 08:41 Dose: 125 mls/hr Magnesium Hydroxide (Milk Of Magnesia 30 Ml Oral.Susp) 30 ml PO DAILY PRN PRN Reason: Constipation Melatonin (Melatonin 3 Mg Tablet) 6 mg PO BEDTIME PRN PRN Reason: Insomnia Sodium Chloride (0.9 % Sodium Chloride Flush 3 Ml Syringe) 3 ml IVFLUSH QSHIFT [facility] Home Medications ?Medication ?Instructions ?Recorded ?Confirmed ?Last Taken ?Type albuterol sulfate 90 mcg/actuation 2 puff inhalation Q4H PRN wheezing 02/02/23 08/28/24 08/27/24 History aerosol inhaler (Ventolin HFA) clonazepam 1 mg tablet 1 mg PO BID PRN Anxiety 02/02/23 08/28/24 08/27/24 History escitalopram oxalate 20 mg tablet 20 mg PO BEDTIME 02/02/23 08/28/24 08/27/24 History famotidine 20 mg tablet 20 mg PO BID 02/02/23 08/28/24 08/27/24 History fluticasone propionate 50 1 spray intranasal DAILY PRN 02/02/23 08/28/24 08/10/24 History mcg/actuation nasal Allergy Symptoms spray,suspension metformin 500 mg tablet,extended 1,000 mg PO BID 02/02/23 08/28/24 08/27/24 History release 24 hr oxcarbazepine 300 mg tablet 300 mg PO BID 02/02/23 08/28/24 08/27/24 History trazodone 150 mg tablet 150 mg PO BEDTIME PRN Sleep 02/02/23 08/28/24 09/07/23 20:00 History gabapentin 300 mg capsule 300 mg PO BID 03/26/24 08/28/24 08/27/24 History atorvastatin 20 mg tablet 20 mg PO DAILY 05/31/24 08/28/24 08/27/24 History mometasone-formoterol HFA 200 2 puff inhalation BID 05/31/24 08/28/24 08/27/24 History mcg-5 mcg/actuation aerosol inhaler (Dulera) insulin glargine 100 unit/mL (3 20 unit subcut BEDTIME 08/11/24 08/28/24 08/27/24 History mL) subcutaneous pen (Lantus Solostar U-100 Insulin) lurasidone 80 mg tablet 80 mg PO BEDTIME 08/11/24 08/28/24 08/27/24 History Physical Exam Vital Signs and Narrative: Vital Signs: Last Vital Signs Temp 98.0 F 08/28/24 08:04 Pulse 96 08/28/24 08:04 Resp 14 08/28/24 08:04 BP 123/68 08/28/24 08:04 Pulse Ox 95 08/28/24 08:04 O2 Del Method Nasal Cannula 08/28/24 08:04 O2 Flow Rate 3 08/28/24 08:04 Oxygen Flow Rate 2 08/28/24 04:50 BMI result Body Mass Index 42.2 Const: Other: Constitutional - Awake and Alert, No apparent distress HEENT - PERRLA, EOMI, trach in place - c/d/i Cardiovascular - S1S2, RRR, No edema Respiratory - Normal lung expansion, Normal respiratory effort, No respiratory distress, CTA bilaterally Gastrointestinal - protuberant abdomen with some distension; diffuse TTP without rebound/guarding - No CVA tenderness Extremities - no calf tenderness bilaterally, no swelling Musculoskeletal - Normal inspection, normal ROM Skin - Warm/Dry Neurological - Alert & oriented x3, No focal deficit Psychological - Appropriate affect Results Labs 08/28/24 05:03 08/28/24 05:03 Labs: Laboratory Results - last 24 hr 08/28/24 08/28/24 05:03 08:22 MCV 82.6 MCH 27.3 MCHC 33.0 RDW 13.5 Plt Count 303 MPV 9.6 Immature Gran % (Auto) 0.3 Neut % (Auto) 81.7 H Lymph % (Auto) 9.5 L [place] % (Auto) 4.9 Eos % (Auto) 3.3 Baso % (Auto) 0.3 Lymph # (Auto) 1.0 L [place] # (Auto) 0.5 Eos # (Auto) 0.4 Baso # (Auto) 0.0 Abs Immat Gran (auto) 0.03 Absolute Neuts (auto) 8.7 H Absolute Nucleated RBC 0.000 Nucleated RBC % (auto) 0.0 Anion Gap 14 Estim Creat Clear Calc 68.3 Estimated GFR 51 POC Glucose 325 H Random Glucose 436 H* Lactic Acid 1.6 Calcium 8.4 D Total Bilirubin 0.4 AST 16 ALT 19 Alkaline Phosphatase 182 H Total Protein 6.3 L Albumin 3.5 Lipase 8 Assessment and Plan (1) SBO (small bowel obstruction): Status: Acute Plan 53 yo F with multiple medical issues presenting with abdominal pain, nausea and vomiting. Found to have SBO. Will be admitted for further management. 1. SBO transition point in the mid abd pt declining NG insertion for now, NPO, IVF Gen surg consult IV pain control 2. Chronic resp failure on 3L PRN, continue 3. Uncontrolled DM with hyperglycemia POC + sliding scale q6h while NPO 4. Mood hold PO meds for now, resume when clinically appropriate 5. morbid obesity playing a role in her acute/chronic issues weight loss encouraged Full Code DVT pptx -- lovenox Pt with SBO (pt declining NG insertion) requiring IVF, bowel rest, surgery consult with underlying risk factors of chronic resp failure, trach, uncontrolled DM therefore expected to require at a minimum 2 midnights in the hospital for management. Hence, will be admitted as inpatient Quality Stroke Does the patient have a stroke diagnosis?: No VTE Prior VTE?: No VTE Risk Level:: Medical - moderate - high VTE Device Contraindication: N/A - Device Ordered VTE Drug Contraindication: N/A - Med Ordered
[2024-08-28 09:10] LABS: Appearance Urine Clear; Color Urine Yellow; Glucose Urine UA >=1000 mg/dL (Negative); Leukocyte Esterase Urine Negative (Negative); Nitrite Urine Negative (Negative); PH 6.5 (5.0-9.0); Specific Gravity - Urine >= 1.030 (1.005-1.025); UMIC TRIGGER UA YES; Urine Blood Negative (Negative); Urine Ketones Negative (Negative); Urine Protein Negative (Neg-Trace)
--- NOTE | 2024-08-28 09:10 | PM.CNGS ---
History of Present Illness Consult details Consult date: 08/28/24 Narrative: 50F here in the ER for abdominal pain. She says she woke up with diffuse abdominal pain around midnight last night. She says this has been constant. Denies any vomiting but says she has had some nausea. She does not recall when her last flatus or bowel movement was. She has a complex surgical history history. She apparently was found in respiratory arrest after an episode of asthma last December 2020. She says she was on the ventilator for several weeks in [facility]. 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 She says she had a lot of drains in place and also had an enterocutaneous fistula. She says she eventually had a graft in place. She says she has had chronic abdominal pain since then. She has a tracheostomy in place. She says she does not see a surgeon anymore in [place] as she stated she does not want to go back to [facility]. She sees a tracheostomy clinic in [place]. She denies any nausea currently. She admits to diffuse abdominal pain. She has a known diabetic and her blood sugar was over 400 this morning.. She is also morbidly obese. Review of her records show that she has been admitted multiple times for small bowel obstruction here in the hospital. She has a known large, wide neck abdominal wall hernia with loss of domain. Review of Systems Constitutional: Constitutional: Denies chills and Denies fever(s) Cardiovascular: Cardiovascular: Denies chest pain, Reports dyspnea and Reports dyspnea on exertion Comments: Has a tracheostomy in place Respiratory: Respiratory: Denies cough, Reports dyspnea and Reports dyspnea on exertion Gastrointestinal: Gastrointestinal: Reports abdominal pain, Denies hematochezia and Denies change in bowel habits Genitourinary: Genitourinary: Denies hematuria Musculoskeletal: Musculoskeletal: Denies back pain and Denies limited range of motion Neurologic: Denies focal weakness and Denies convulsions Psychiatric: Psychiatric: Denies depression and Denies mood swings [facility] Past Medical History Medical History Obesity (BMI 30-39.9) Bipolar depression Anxiety Insomnia Tracheostomy present Pure hypercholesterolemia Diabetes mellitus Asymptomatic bacteriuria Morbid obesity Partial small bowel obstruction Tracheostomy dependent History of cardiac arrest Wound drainage Takotsubo cardiomyopathy Kidney stones UTI (urinary tract infection) Bipolar 1 disorder Asthma Substance abuse Family History Family History Mother No pertinent family history Father No pertinent family history Surgical History Surgical History History of tracheostomy S/P ureteral stent placement H/O exploratory laparotomy S/P cholecystectomy Social History Social History Household Members: Spouse Household Members Other:: 1 Housing: Apartment Do you presently have visiting nurse or other home services: No Alcohol intake: former Comment: stayed in ed Patient Tobacco Use Status: Never used Tobacco e-Cigarette/Vaping Use: Never Used Second Hand Smoke Exposure: Yes Advance Directives Date on File: 02/04/23 service: No Current occupational status: disabled Cognitive needs: No Hearing needs: No Vision needs: Yes Meds Allergies Allergy/AdvReac Type Severity Reaction Status Date / Time pantoprazole Allergy Mild Redness of Verified 08/28/24 04:52 Skin Active Medications: Current Medications Acetaminophen (Acetaminophen 325 Mg Tablet) 650 mg PO Q6H PRN PRN Reason: Pain, Mild 1-3,fever,headache Calcium Carbonate (Calcium Carbonate 750 Mg Tab.Chew) 750 mg PO Q4H PRN PRN Reason: Heartburn Enoxaparin Sodium (Enoxaparin Sodium 40 Mg/0.4 Ml Syringe) 40 mg SUBCUT Q24H [facility] Last Admin: 08/28/24 08:42 Dose: 40 mg Hydromorphone HCl (Hydromorphone Hcl 1 Mg/Ml Syringe) 1 mg IVPUSH Q4H PRN; Protocol PRN Reason: Pain, Severe (Pain Scale 7-10) Lactated Ringer's (Lr) 1,000 mls @ 125 mls/hr IVCONT .Q8H [facility] Last Admin: 08/28/24 08:41 Dose: 125 mls/hr Magnesium Hydroxide (Milk Of Magnesia 30 Ml Oral.Susp) 30 ml PO DAILY PRN PRN Reason: Constipation Melatonin (Melatonin 3 Mg Tablet) 6 mg PO BEDTIME PRN PRN Reason: Insomnia Sodium Chloride (0.9 % Sodium Chloride Flush 3 Ml Syringe) 3 ml IVFLUSH QSHIFT [facility] Home Medications ?Medication ?Instructions ?Recorded ?Confirmed ?Last Taken ?Type albuterol sulfate 90 mcg/actuation 2 puff inhalation Q4H PRN wheezing 02/02/23 08/28/24 08/27/24 History aerosol inhaler (Ventolin HFA) clonazepam 1 mg tablet 1 mg PO BID PRN Anxiety 02/02/23 08/28/24 08/27/24 History escitalopram oxalate 20 mg tablet 20 mg PO BEDTIME 02/02/23 08/28/24 08/27/24 History famotidine 20 mg tablet 20 mg PO BID 02/02/23 08/28/24 08/27/24 History fluticasone propionate 50 1 spray intranasal DAILY PRN 02/02/23 08/28/24 08/10/24 History mcg/actuation nasal Allergy Symptoms spray,suspension metformin 500 mg tablet,extended 1,000 mg PO BID 02/02/23 08/28/24 08/27/24 History release 24 hr oxcarbazepine 300 mg tablet 300 mg PO BID 02/02/23 08/28/24 08/27/24 History trazodone 150 mg tablet 150 mg PO BEDTIME PRN Sleep 02/02/23 08/28/24 09/07/23 20:00 History gabapentin 300 mg capsule 300 mg PO BID 03/26/24 08/28/24 08/27/24 History atorvastatin 20 mg tablet 20 mg PO DAILY 05/31/24 08/28/24 08/27/24 History mometasone-formoterol HFA 200 2 puff inhalation BID 05/31/24 08/28/24 08/27/24 History mcg-5 mcg/actuation aerosol inhaler (Dulera) insulin glargine 100 unit/mL (3 20 unit subcut BEDTIME 08/11/24 08/28/24 08/27/24 History mL) subcutaneous pen (Lantus Solostar U-100 Insulin) lurasidone 80 mg tablet 80 mg PO BEDTIME 08/11/24 08/28/24 08/27/24 History Physical Exam Vital Signs: Vital Signs: Last Vital Signs Temp 98.0 F 08/28/24 08:04 Pulse 96 08/28/24 08:04 Resp 14 08/28/24 08:04 BP 123/68 08/28/24 08:04 Pulse Ox 95 08/28/24 08:04 O2 Del Method Nasal Cannula 08/28/24 08:04 O2 Flow Rate 3 08/28/24 08:04 Oxygen Flow Rate 2 08/28/24 04:50 BMI result Body Mass Index 42.2 Const: Other: Morbidly obese, complains of pain General: no acute distress Resp: Other: Tracheostomy in place Effort & Inspection: normal respiratory effort Cardio: Rate: regular rate GI: Other: Morbidly obese, large hernia, tender, long laparotomy scar Palpation (GI): Soft to palpation and no guarding Results Labs 08/30/24 06:46 08/30/24 06:46 Labs: Abnormal lab results 08/28/24 08/28/24 Range/Units 05:03 08:22 Neut % (Auto) 81.7 H (45-73) % Lymph % (Auto) 9.5 L (20-40) % Lymph # (Auto) 1.0 L (1.2-4.9) X10*3/uL Absolute Neuts (auto) 8.7 H (2.0-8.3) x10*3/uL Sodium 133 L (135-145) mmol/L Chloride 94 L (96-108) mmol/L Carbon Dioxide 30 H (22-29) mmol/L BUN 21 H (9-16) mg/dL POC Glucose 325 H (60-115) mg/dL Random Glucose 436 H* (60-115) mg/dL Alkaline Phosphatase 182 H (39-117) U/L Total Protein 6.3 L (6.5-8.0) g/dL Short CBC 08/28/24 Range/Units 05:03 WBC 10.6 (4.8-10.8) X10*3/uL Hgb 13.0 (12.0-16.0) g/dl Hct 39.4 (37.0-47.0) % Plt Count 303 (160-400) X10*3/uL BMP 08/28/24 05:03 Sodium 133 L Potassium 4.6 Chloride 94 L Carbon Dioxide 30 H BUN 21 H Creatinine 1.11 Calcium 8.4 D Liver Function 08/28/24 Range/Units 05:03 Total Bilirubin 0.4 (0.0-1.0) mg/dL AST 16 (5-31) U/L ALT 19 (0-31) U/L Alkaline Phosphatase 182 H (39-117) U/L Albumin 3.5 (3.5-5.0) g/dL All other labs normal. Imaging Abdomen CT scan report/results: report reviewed and image reviewed CT scan - pelvis: report reviewed and image reviewed Additional studies: Impression: 1. Large ventral abdominal wall hernia stable mid small bowel obstruction with mesenteric edema and trace ascites but no free air or pneumatosis intestinalis. The transition point is in the lower mid abdomen level bowel obstruction is probably partial or near complete. Similar findings were demonstrated on CT dated 05/31/2024. The colon is full of stool. 2. Hepatic steatosis. Post cholecystectomy. Appendix not visualized. No significant diverticular disease. 3. Stable ancillary findings. Assessment and Plan (1) Abdominal pain: Status: Resolved 53 year old female here because of the abdominal pain. I have reviewed her CAT scan and this shows dilated small bowel loops, fluid-filled, all the way to the stomach. There may be a transition point the lower abdomen. She does have a very large hernia with significant loss of domain. The stomach seen to protrude through the hernia as well. The CAT scan findings however are the same as her previous CAT scan images last May, her abdominal exam is otherwise benign. I would treat her nonoperatively as she may not be a surgical candidate. Furthermore, in view of the very large hernia defect along with loss of the main, it is unlikely that this will cause obstruction I would recommend keeping her NPO for now however . Her blood sugars should be controlled. She is hemodynamically stable. She has multiple other medical problems. We will follow along while she is in the hospital. Procedures Date of Service Date of Service: 08/31/24
[2024-08-28 09:16] LABS: Bacteria Urine 3+ (None Seen); Hyaline Casts Urine 0-2 /LPF (0-2); RBC Urine 0-2 /HPF (0-2); Squamous Epithelial Cell Urine 0-2 /HPF (0-2); WBC Urine 0-5 /HPF (0-5)
[2024-08-28 11:26] LABS: Glucose, Whole Blood 344 mg/dL (60-115)
[2024-08-28] MEDS: Acetaminophen 325 MG TABLET 650 MG PO (11:39)
[2024-08-28] MEDS: HYDROmorphone HCl 1 MG/ML SYRINGE IVPUSH ×3 (13:03→21:07)
--- NOTE | 2024-08-28 13:05 | PC.NURSE ---
Patient ambulating to bathroom with escort off O2. Patient O2 89% RA applied NC 2 L O2 rechecked 98%. Patient c/o abdomen pain, administered dilauded with good effect.
--- NOTE | 2024-08-28 14:04 | PM.EVENT ---
Event Note Date of Service: 08/28/24 Event Note: Seen on afternoon rounds Feels much better Looks a lot more comfortable Denies vomiting Abdomen is soft with some mild diffuse tenderness Hemodynamically stable Continue current care Bowel rest for now She says that she responds well to Dilaudid We will continue to follow Overall exam benign Time Spent With Patient Time: Total time managing care of this patient today ____ minutes.
[2024-08-28 18:43] LABS: Glucose, Whole Blood 304 mg/dL (60-115)
[2024-08-28 20:28] LABS: Glucose, Whole Blood 285 mg/dL (60-115)
[2024-08-28] MEDS: 0.9 % Sodium Chloride Flush 3 ML SYRINGE IVFLUSH (21:07)
[2024-08-29] VITALS (7 sets, daily range): BP systolic 118–156; BP diastolic 56–84; PULSE 67–86; RESP 16–20; TEMP 36–36.6; O2SAT 92–98
[2024-08-29] MEDS: Lactated Ringers 1,000 ML 125 ML IVCONT ×2 (00:59→09:07)
[2024-08-29] MEDS: HYDROmorphone HCl 1 MG/ML SYRINGE IVPUSH ×6 (01:02→21:19)
[2024-08-29 06:49] LABS: Hematocrit 39.1 % (37.0-47.0); Hemoglobin 12.1 g/dl (12.0-16.0); Mean Corpuscular HGB Conc 30.9 g/dl (31.0-35.0); Mean Corpuscular Hemoglobin 26.7 pg (27.0-33.0); Mean Corpuscular Volume 86.1 fL (80.0-98.0); Mean Platelet Volume 9.7 fL (9.4-12.3); Platelet Count 275 X10*3/uL (160-400); Red Blood Count 4.54 X10*6/uL (4.20-5.50); Red Cell Distribution Width 13.6 % (11.0-16.0); White Blood Count 6.5 X10*3/uL (4.8-10.8)
[2024-08-29 06:57] LABS: Glucose, Whole Blood 351 mg/dL (60-115)
[2024-08-29 06:58] LABS: Alanine Aminotransferase 26 U/L (0-31); Albumin Level 3.4 g/dL (3.5-5.0); Alkaline Phosphatase 170 U/L (39-117); Anion Gap 11 (12-20); Aspartate Amino Transferase 35 U/L (5-31); Bilirubin Total 0.6 mg/dL (0.0-1.0); Blood Urea Nitrogen 11 mg/dL (9-16); Calcium 8.4 mg/dL (8.4-10.2); Carbon Dioxide 30 mmol/L (22-29); Chloride 98 mmol/L (96-108); Creatinine Clr Calc Pharmacy 84.7; Estimated Glomerular Filt Rate > 60; Glucose Random 346 mg/dL (60-115); Potassium 4.4 mmol/L (3.3-5.1); Sodium 135 mmol/L (135-145); Total Protein 6.2 g/dL (6.5-8.0)
[2024-08-29 07:05] LABS: Glucose, Whole Blood 407 mg/dL (60-115)
--- NOTE | 2024-08-29 08:07 | PM.PNGS ---
Subjective Subjective Date of Service: 08/29/24 <Bob Trujillo PA-C - Last Filed: 08/29/24 08:18> 08/29/24 <Duke Rai MD - Last Filed: 08/29/24 08:15> Patient reports: feels better <ALBINO Rich Last Filed: 08/29/24 08:18> Interval history: patient feels improved this morning. Endorses some mild nausea, denies vomiting. She states she has been passing gas and a bowel movement overnight. Pain is improved, and well controlled. <Bob Trujillo PA-C - Last Filed: 08/29/24 08:18> Physical Exam Vital Signs: Vital Signs: Last Vital Signs Temp 97.4 F 08/29/24 07:05 Pulse 74 08/29/24 07:05 Resp 20 08/29/24 07:05 BP 133/74 08/29/24 07:05 Pulse Ox 96 08/29/24 07:05 O2 Del Method Room Air 08/29/24 07:05 O2 Flow Rate 3 08/28/24 20:00 Oxygen Flow Rate 2 08/28/24 04:50 BMI result Body Mass Index 40.1 <Bob Trujillo PA-C - Last Filed: 08/29/24 08:18> Const: General: comfortable and no acute distress <ALBINO Rich Last Filed: 08/29/24 08:18> Orientation/consciousness: patient oriented x3 <Bob Trujillo PA-C - Last Filed: 08/29/24 08:18> Resp: Effort & Inspection: normal respiratory effort and able to speak in complete sentences <ALBINO Rich Last Filed: 08/29/24 08:18> GI: Other: large incisional hernia <ALBINO Rich Last Filed: 08/29/24 08:18> Inspection: No distended and Yes scar (large laparotomy scar) <ALBINO Rich Last Filed: 08/29/24 08:18> Palpation (GI): Soft to palpation, not firm, Tenderness to palpation present (GI) (mildly), no guarding and not rigid <ALBINO Rich Last Filed: 08/29/24 08:18> Neuro: General: patient oriented x3 <Bob Trujlilo PA-C - Last Filed: 08/29/24 08:18> Objective Data Active Medications Acetaminophen (Acetaminophen 325 Mg Tablet) 650 mg PO Q6H PRN PRN Reason: Pain, Mild 1-3,fever,headache Last Admin: 08/28/24 11:39 Dose: 650 mg Documented By: JOSHUA Calcium Carbonate (Calcium Carbonate 750 Mg Tab.Chew) 750 mg PO Q4H PRN PRN Reason: Heartburn Enoxaparin Sodium (Enoxaparin Sodium 40 Mg/0.4 Ml Syringe) 40 mg SUBCUT Q24H [facility] Last Admin: 08/28/24 08:42 Dose: 40 mg Documented By: JOSHUA Hydromorphone HCl (Hydromorphone Hcl 1 Mg/Ml Syringe) 1 mg IVPUSH Q4H PRN; Protocol PRN Reason: Pain, Severe (Pain Scale 7-10) Last Admin: 08/29/24 05:00 Dose: 1 mg Documented By: MARIANELA Lactated Ringer's (Lr) 1,000 mls @ 125 mls/hr IVCONT .Q8H [facility] Last Admin: 08/29/24 00:59 Dose: 125 mls/hr Documented By: MARIANELA Insulin Human Lispro (Insulin Lispro 100 Unit/Ml 3 Ml Vial) 0 unit SUBCUT QIDACHS [facility]; Protocol Magnesium Hydroxide (Milk Of Magnesia 30 Ml Oral.Susp) 30 ml PO DAILY PRN PRN Reason: Constipation Melatonin (Melatonin 3 Mg Tablet) 6 mg PO BEDTIME PRN PRN Reason: Insomnia Sodium Chloride (0.9 % Sodium Chloride Flush 3 Ml Syringe) 3 ml IVFLUSH QSHIFT [facility] Last Admin: 08/28/24 21:07 Dose: 3 ml Documented By: MARIANELA <Bob Trujillo PA-C - Last Filed: 08/29/24 08:18> Labs CBC & Chem 7: 08/29/24 06:26 08/29/24 06:26 <Bob Trujillo PA-C - Last Filed: 08/29/24 08:18> Labs: Laboratory Results - last 24 hr 08/28/24 08/28/24 08/28/24 05:49 08:22 08:54 MCV MCH MCHC RDW Plt Count MPV Absolute Nucleated RBC Nucleated RBC % (auto) Anion Gap Estim Creat Clear Calc Estimated GFR POC Glucose 407 H* 325 H Random Glucose Calcium Total Bilirubin AST ALT Alkaline Phosphatase Total Protein Albumin Urine Color Yellow Urine Appearance Clear Urine pH 6.5 Ur Specific [place] >= 1.030 H Urine Protein Negative Urine Glucose (UA) >=1000 H Urine Ketones Negative Urine Blood Negative Urine Nitrite Negative Ur Leukocyte Esterase Negative Urine RBC 0-2 Urine WBC 0-5 Ur Squamous Epith Cells 0-2 Urine Bacteria 3+ Hyaline Casts 0-2 08/28/24 08/28/24 08/28/24 11:22 18:40 20:24 MCV MCH MCHC RDW Plt Count MPV Absolute Nucleated RBC Nucleated RBC % (auto) Anion Gap Estim Creat Clear Calc Estimated GFR POC Glucose 344 H 304 H 285 H Random Glucose Calcium Total Bilirubin AST ALT Alkaline Phosphatase Total Protein Albumin Urine Color Urine Appearance Urine pH Ur Specific [place] Urine Protein Urine Glucose (UA) Urine Ketones Urine Blood Urine Nitrite Ur Leukocyte Esterase Urine RBC Urine WBC Ur Squamous Epith Cells Urine Bacteria Hyaline Casts 08/29/24 08/29/24 06:26 06:53 MCV 86.1 MCH 26.7 L MCHC 30.9 L RDW 13.6 Plt Count 275 MPV 9.7 Absolute Nucleated RBC 0.000 Nucleated RBC % (auto) 0.0 Anion Gap 11 L Estim Creat Clear Calc 84.7 Estimated GFR > 60 POC Glucose 351 H* Random Glucose 346 H Calcium 8.4 Total Bilirubin 0.6 AST 35 H ALT 26 Alkaline Phosphatase 170 H Total Protein 6.2 L Albumin 3.4 L Urine Color Urine Appearance Urine pH Ur Specific [place] Urine Protein Urine Glucose (UA) Urine Ketones Urine Blood Urine Nitrite Ur Leukocyte Esterase Urine RBC Urine WBC Ur Squamous Epith Cells Urine Bacteria Hyaline Casts <Bob Trujillo PA-C - Last Filed: 08/29/24 08:18> Procedures Date of Service Date of Service: 08/29/24 <Bob Trujillo PA-C - Last Filed: 08/29/24 08:18> 08/29/24 <Duke Rai MD - Last Filed: 08/29/24 08:15> Progress Note: A&P Assessment and plan (1) SBO (small bowel obstruction): Status: Acute <Bob Trujillo PA-C - Last Filed: 08/29/24 08:18> Assessment and Plan: 53-year-old female admitted for small-bowel obstruction secondary to large incisional hernia. Patient is improving today, pain is less. Endorses mild nausea. Patietn pasing large amounts of gas, and a moderate sized bowel movement this morning. Abdomen is soft and benign. will trial clear liquids ambulation as tolerated serial abdominal exams <Bob Trujillo PA-C - Last Filed: 08/29/24 08:18> Assessment and Plan: Feels much better A little bit of nausea Pain mostly resolved Passing flatus and had BMs Okay to start on clear liquids Abdominal exam benign currently, soft, no tenderness, large hernia with loss of domain Seen and examined independently <Duke Rai MD - Last Filed: 08/29/24 08:15> Time Spent With Patient Time: Total time managing care of this patient today ____ minutes. <Bob Trujillo PA-C - Last Filed: 08/29/24 08:18> Quality Stroke Does the patient have a stroke diagnosis?: No <Bob Trujillo PA-C - Last Filed: 08/29/24 08:18> VTE Prior VTE?: No <Bob Trujillo PA-C - Last Filed: 08/29/24 08:18> VTE Risk Level:: Medical - moderate - high <Bob Trujillo PA-C - Last Filed: 08/29/24 08:18> VTE Device Contraindication: N/A - Device Ordered <Bob Trujillo PA-C - Last Filed: 08/29/24 08:18> VTE Drug Contraindication: N/A - Med Ordered <Bob Trujillo PA-C - Last Filed: 08/29/24 08:18>
--- NOTE | 2024-08-29 08:56 | MHC.CM.PN ---
Pt lives at home with her /HCP Casimiro. She has a trach, home O2 tanks, a nebulizer, and a suction machine through [facility] in [place]. Pt will need BLS transport home at discharge. Pt receives [facility] care 7 hours/week. PCP: Flynn Menendez
[2024-08-29] MEDS: OXcarbazepine 300 MG TABLET PO ×2 (11:18→21:16)
[2024-08-29] MEDS: Famotidine 20 MG TABLET PO ×2 (11:18→21:16)
[2024-08-29] MEDS: Gabapentin 300 MG CAPSULE PO ×2 (11:18→21:16)
[2024-08-29] MEDS: Insulin Lispro 100 UNIT/ML 3 ML VIAL SUBCUT ×3 (11:19→21:13)
[2024-08-29] MEDS: Acetaminophen 325 MG TABLET 650 MG PO (11:22)
[2024-08-29] MEDS: clonazePAM 1 MG TABLET PO ×2 (11:22→21:16)
[2024-08-29] MEDS: ondansetron HCL 4 MG/2 ML VIAL IVPUSH (11:23)
[2024-08-29 11:41] LABS: Glucose, Whole Blood 356 mg/dL (60-115)
--- NOTE | 2024-08-29 13:27 | HO.PM.IMPN ---
Subjective Subjective Date of Service: 08/29/24 Interval History: seen and evaluated feels better passing gas had 1 bowel movements tolerating liquids Review of Systems Review of Systems: Yes all other systems are reviewed and are negative Physical Exam Vital Signs: Vital Signs: Last Vital Signs Temp 97.0 F 08/29/24 11:12 Pulse 68 08/29/24 11:12 Resp 18 08/29/24 11:12 BP 156/77 H 08/29/24 11:12 Pulse Ox 98 08/29/24 11:12 O2 Del Method Room Air 08/29/24 11:12 O2 Flow Rate 3 08/28/24 20:00 Oxygen Flow Rate 2 08/28/24 04:50 BMI result Body Mass Index 40.1 Const: Other: Constitutional : interactive, not in distress Cardiovascular : no JVP, no lower extremity edema Respiratory : bilateral chest movement, Trach in place, not in resp distress Gastrointestinal: soft, lax, Non tender, +ve bowel sounds Skin : Warm, Dry Neurological : Alert & oriented , No focal deficit Objective Data Active Medications Acetaminophen (Acetaminophen 325 Mg Tablet) 650 mg PO Q6H PRN PRN Reason: Pain, Mild 1-3,fever,headache Last Admin: 08/29/24 11:22 Dose: 650 mg Documented By: CHARLY Atorvastatin Calcium (Atorvastatin Calcium 20 Mg Tablet) 20 mg PO DAILY [facility] Calcium Carbonate (Calcium Carbonate 750 Mg Tab.Chew) 750 mg PO Q4H PRN PRN Reason: Heartburn Clonazepam (Clonazepam 1 Mg Tablet) 1 mg PO BID PRN PRN Reason: Anxiety Last Admin: 08/29/24 11:22 Dose: 1 mg Documented By: CHARLY Enoxaparin Sodium (Enoxaparin Sodium 40 Mg/0.4 Ml Syringe) 40 mg SUBCUT Q24H [facility] Last Admin: 08/29/24 09:06 Dose: Not Given Documented By: CHARLY Non-Admin Reason: Patient Refused Escitalopram Oxalate (Escitalopram Oxalate 20 Mg Tablet) 20 mg PO BEDTIME [facility] Famotidine (Famotidine 20 Mg Tablet) 20 mg PO BID [facility] Last Admin: 08/29/24 11:18 Dose: 20 mg Documented By: CHARLY Fluticasone/Vilanterol (Fluticasone/Vilanterol 100/25 Blst.W.Dev) 1 puff INHALE RDAILY [facility] Last Admin: 08/29/24 13:16 Dose: Not Given Documented By: CHARLY Non-Admin Reason: Med Not Available Gabapentin (Gabapentin 300 Mg Capsule) 300 mg PO BID [facility] Last Admin: 08/29/24 11:18 Dose: 300 mg Documented By: CHARLY Hydromorphone HCl (Hydromorphone Hcl 1 Mg/Ml Syringe) 1 mg IVPUSH Q4H PRN; Protocol PRN Reason: Pain, Severe (Pain Scale 7-10) Last Admin: 08/29/24 13:14 Dose: 1 mg Documented By: CHARLY Lactated Ringer's (Lr) 1,000 mls @ 125 mls/hr IVCONT .Q8H [facility] Last Admin: 08/29/24 09:07 Dose: 125 mls/hr Documented By: CHARLY Insulin Human Lispro (Insulin Lispro 100 Unit/Ml 3 Ml Vial) 0 unit SUBCUT QIDACHS [facility]; Protocol Last Admin: 08/29/24 11:19 Dose: 10 unit Documented By: CHARLY Loratadine (Loratadine 10 Mg Tablet) 10 mg PO DAILY PRN PRN Reason: allergy symptoms Lurasidone HCl (Lurasidone Hcl 80 Mg Tablet) 80 mg PO BEDTIME [facility] Magnesium Hydroxide (Milk Of Magnesia 30 Ml Oral.Susp) 30 ml PO DAILY PRN PRN Reason: Constipation Melatonin (Melatonin 3 Mg Tablet) 6 mg PO BEDTIME PRN PRN Reason: Insomnia Ondansetron HCl (Ondansetron Hcl 4 Mg/2 Ml Vial) 4 mg IVPUSH Q8H PRN PRN Reason: Nausea and Vomiting Last Admin: 08/29/24 11:23 Dose: 4 mg Documented By: CHARLY Oxcarbazepine (Oxcarbazepine 300 Mg Tablet) 300 mg PO BID [facility] Last Admin: 08/29/24 11:18 Dose: 300 mg Documented By: CHARLY Sodium Chloride (0.9 % Sodium Chloride Flush 3 Ml Syringe) 3 ml IVFLUSH QSHIFT [facility] Last Admin: 08/29/24 09:05 Dose: Not Given Documented By: CHARLY Non-Admin Reason: IV Running Trazodone HCl (Trazodone Hcl 50 Mg Tablet) 150 mg PO BEDTIME PRN PRN Reason: Sleep Labs 08/29/24 06:26 08/29/24 06:26 Labs: Laboratory Results - last 24 hr 08/28/24 08/28/24 08/28/24 05:49 18:40 20:24 MCV MCH MCHC RDW Plt Count MPV Absolute Nucleated RBC Nucleated RBC % (auto) Anion Gap Estim Creat Clear Calc Estimated GFR POC Glucose 407 H* 304 H 285 H Random Glucose Calcium Total Bilirubin AST ALT Alkaline Phosphatase Total Protein Albumin 08/29/24 08/29/24 08/29/24 06:26 06:53 11:00 MCV 86.1 MCH 26.7 L MCHC 30.9 L RDW 13.6 Plt Count 275 MPV 9.7 Absolute Nucleated RBC 0.000 Nucleated RBC % (auto) 0.0 Anion Gap 11 L Estim Creat Clear Calc 84.7 Estimated GFR > 60 POC Glucose 351 H* 356 H* Random Glucose 346 H Calcium 8.4 Total Bilirubin 0.6 AST 35 H ALT 26 Alkaline Phosphatase 170 H Total Protein 6.2 L Albumin 3.4 L Assessment and Plan (1) SBO (small bowel obstruction): Status: Acute Plan 53 yo F with multiple medical issues presenting with abdominal pain, nausea and vomiting. Found to have SBO. Will be admitted for further management. SBO improving transition point in the mid abd tolerating clears Passing gas Gen surg following IVF IV pain control advance diet as tolerated Chronic resp failure on Trach on 3L PRN, continue Uncontrolled DM with hyperglycemia POC + sliding scale Mood resume home meds morbid obesity weight loss encouraged Full Code DVT pptx -- lovenox Pt with SBO requiring IVF, bowel rest, surgery consult with underlying risk factors of chronic resp failure, trach, uncontrolled DM therefore expected to require overnight in the hospital for management Quality Stroke Does the patient have a stroke diagnosis?: No VTE Prior VTE?: No VTE Risk Level:: Medical - moderate - high VTE Device Contraindication: N/A - Device Ordered VTE Drug Contraindication: N/A - Med Ordered
--- NOTE | 2024-08-29 14:48 | PC.NURSE ---
Pt refusing IV fluids stating she is drinking fine now on liquids does not want fluids since she is having to go to bathroom non-stop. Dr Nolasco notified
[2024-08-29 20:26] LABS: Glucose, Whole Blood 268 mg/dL (60-115)
[2024-08-29 20:41] LABS: Glucose, Whole Blood 303 mg/dL (60-115)
[2024-08-29] MEDS: Escitalopram Oxalate 20 MG TABLET PO (21:16)
[2024-08-29] MEDS: traZODone HCL 50 MG TABLET 150 MG PO (21:16)
[2024-08-29] MEDS: Lurasidone HCl 80 MG TABLET PO (21:17)
--- NOTE | 2024-08-29 21:22 | PC.NURSE ---
Patient is currently on a clear liquid diet, reports she had broth, grayson, lao ice today and tolerated well. Reports she is hungry and requesting to advance diet asking if she can have toast and crackers. Dr. Elias notified, Per MD, advance diet as tolerated.
[2024-08-29] MEDS: 0.9 % Sodium Chloride Flush 3 ML SYRINGE IVFLUSH (23:27)
[2024-08-30 03:17] VITALS: BP 95/48; PULSE 79; RESP 18; TEMP 36; O2SAT 96
[2024-08-30] MEDS: HYDROmorphone HCl 1 MG/ML SYRINGE IVPUSH (03:41)
[2024-08-30 07:47] VITALS: BP 135/64; PULSE 76; RESP 18; TEMP 36.6; O2SAT 92
[2024-08-30 07:48] LABS: Glucose, Whole Blood 343 mg/dL (60-115)
[2024-08-30 07:49] LABS: Basophils Absolute Auto 0.1 X10*3/uL (0.0-0.2); Basophils Percent Auto 0.9 % (0-2); Eosinophils Absolute Auto 0.4 X10*3/uL (0.0-0.4); Eosinophils Percent Auto 6.4 % (0-4); Hematocrit 37.9 % (37.0-47.0); Hemoglobin 12.1 g/dl (12.0-16.0); Imm Gran Abs Auto 0.05 X10*3/uL (0.00-0.03); Imm Gran Pct Auto 0.8 % (0.0-0.4); Lymphocytes Absolute Auto 1.2 X10*3/uL (1.2-4.9); Lymphocytes Percent Auto 19.1 % (20-40); MANUAL DIFF FLAG SCAN; Mean Corpuscular HGB Conc 31.9 g/dl (31.0-35.0); Mean Corpuscular Hemoglobin 27.3 pg (27.0-33.0); Mean Corpuscular Volume 85.4 fL (80.0-98.0); Monocytes Absolute Auto 0.4 X10*3/uL (0.1-1.2); Monocytes Percent Auto 5.5 % (2-11); Neutrophils Absolute Auto 4.3 x10*3/uL (2.0-8.3); Neutrophils Percent Auto 67.3 % (45-73); PLT CLUMP 1; Red Blood Count 4.44 X10*6/uL (4.20-5.50); Red Cell Distribution Width 13.8 % (11.0-16.0); SCAN SMEAR FLAG 1
[2024-08-30 07:57] LABS: Anion Gap 10 (12-20); Blood Urea Nitrogen 11 mg/dL (9-16); Calcium 8.3 mg/dL (8.4-10.2); Carbon Dioxide 32 mmol/L (22-29); Chloride 99 mmol/L (96-108); Creatinine Clr Calc Pharmacy 81.8; Estimated Glomerular Filt Rate > 60; Glucose Random 327 mg/dL (60-115); Potassium 4.4 mmol/L (3.3-5.1); Sodium 137 mmol/L (135-145)
[2024-08-30 08:21] LABS: Mean Platelet Volume 10.4 fL (9.4-12.3); White Blood Count 6.4 X10*3/uL (4.8-10.8)
[2024-08-30 08:22] LABS: Platelet Count 262 X10*3/uL (160-400); SLIDE REVIEW VERIFIED
[2024-08-30] MEDS: Gabapentin 300 MG CAPSULE PO (08:35)
[2024-08-30] MEDS: Atorvastatin Calcium 20 MG TABLET PO (08:35)
[2024-08-30] MEDS: OXcarbazepine 300 MG TABLET PO (08:35)
[2024-08-30] MEDS: Famotidine 20 MG TABLET PO (08:35)
[2024-08-30] MEDS: Insulin Lispro 100 UNIT/ML 3 ML VIAL SUBCUT ×2 (08:35→11:57)
[2024-08-30] MEDS: 0.9 % Sodium Chloride Flush 3 ML SYRINGE IVFLUSH (08:37)
[2024-08-30] MEDS: HYDROmorphone HCl 1 MG/ML SYRINGE 0.5 MG IVPUSH ×2 (08:41→12:46)
--- NOTE | 2024-08-30 08:57 | P.PNGS_ITS ---
Subjective Subjective Date of Service: 08/30/24 <Bob Trujillo PA-C - Last Filed: 08/30/24 09:08> 08/30/24 <Duke Rai MD - Last Filed: 08/30/24 10:28> Patient reports: feels better and tolerating liquids well <ALBINO Rich Last Filed: 08/30/24 09:08> Interval history: patient improving, still has mild abd pain and nausea. Passing flatus. feels hungry, had a few saltines last night and tolerated well. <Bob Trujillo PA-C - Last Filed: 08/30/24 09:08> Physical Exam 2 Vital Signs: Vital Signs: Last Vital Signs Temp 97.8 F 08/30/24 07:47 Pulse 76 08/30/24 07:47 Resp 18 08/30/24 07:47 BP 135/64 08/30/24 07:47 Pulse Ox 92 08/30/24 07:47 O2 Del Method Room Air 08/30/24 07:47 O2 Flow Rate 2 08/30/24 03:17 Oxygen Flow Rate 2 08/28/24 04:50 BMI result Body Mass Index 40.1 <Bob Trujillo PA-C - Last Filed: 08/30/24 09:08> Const: General: comfortable and no acute distress <ALBINO Rich Last Filed: 08/30/24 09:08> Orientation/consciousness: patient oriented x3 <Bob Trujillo PA-C - Last Filed: 08/30/24 09:08> Resp: Effort & Inspection: normal respiratory effort and able to speak in complete sentences <ALBINO Rich Last Filed: 08/30/24 09:08> GI: Other: large incisional hernia at laparotomy site, loss of domain <Bob Trujillo PA-C - Last Filed: 08/30/24 09:08> Inspection: No distended <ALBINO Rich Last Filed: 08/30/24 09:08> Palpation (GI): Soft to palpation, not firm, Tenderness to palpation present (GI) (epigastric) and not rigid <ALBINO Rich Last Filed: 08/30/24 09:08> Neuro: General: patient oriented x3 <ALBINO Rich Last Filed: 08/30/24 09:08> Objective Data Active Medications Acetaminophen (Acetaminophen 325 Mg Tablet) 650 mg PO Q6H PRN PRN Reason: Pain, Mild 1-3,fever,headache Last Admin: 08/29/24 11:22 Dose: 650 mg Documented By: CHARLY Atorvastatin Calcium (Atorvastatin Calcium 20 Mg Tablet) 20 mg PO DAILY [facility] Last Admin: 08/30/24 08:35 Dose: 20 mg Documented By: CHARLY Calcium Carbonate (Calcium Carbonate 750 Mg Tab.Chew) 750 mg PO Q4H PRN PRN Reason: Heartburn Clonazepam (Clonazepam 1 Mg Tablet) 1 mg PO BID PRN PRN Reason: Anxiety Last Admin: 08/29/24 21:16 Dose: 1 mg Documented By: JAQUELINE Enoxaparin Sodium (Enoxaparin Sodium 40 Mg/0.4 Ml Syringe) 40 mg SUBCUT Q24H [facility] Last Admin: 08/30/24 08:37 Dose: Not Given Documented By: CHARLY Non-Admin Reason: Patient Refused Escitalopram Oxalate (Escitalopram Oxalate 20 Mg Tablet) 20 mg PO BEDTIME [facility] Last Admin: 08/29/24 21:16 Dose: 20 mg Documented By: JAQUELINE Famotidine (Famotidine 20 Mg Tablet) 20 mg PO BID [facility] Last Admin: 08/30/24 08:35 Dose: 20 mg Documented By: CHARLY Fluticasone/Vilanterol (Fluticasone/Vilanterol 100/25 Blst.W.Dev) 1 puff INHALE RDAILY [facility] Last Admin: 08/30/24 08:42 Dose: Not Given Documented By: JACQUELINE Non-Admin Reason: Patient Refused Gabapentin (Gabapentin 300 Mg Capsule) 300 mg PO BID [facility] Last Admin: 08/30/24 08:35 Dose: 300 mg Documented By: CHARLY Hydromorphone HCl (Hydromorphone Hcl 1 Mg/Ml Syringe) 0.5 mg IVPUSH Q4H PRN; Protocol PRN Reason: Pain, Severe (Pain Scale 7-10) Last Admin: 08/30/24 08:41 Dose: 0.5 mg Documented By: CHARLY Insulin Human Lispro (Insulin Lispro 100 Unit/Ml 3 Ml Vial) 0 unit SUBCUT QIDACHS [facility]; Protocol Last Admin: 08/30/24 08:35 Dose: 8 unit Documented By: CHARLY Loratadine (Loratadine 10 Mg Tablet) 10 mg PO DAILY PRN PRN Reason: allergy symptoms Lurasidone HCl (Lurasidone Hcl 80 Mg Tablet) 80 mg PO BEDTIME [facility] Last Admin: 08/29/24 21:17 Dose: 80 mg Documented By: JAQUELINE Magnesium Hydroxide (Milk Of Magnesia 30 Ml Oral.Susp) 30 ml PO DAILY PRN PRN Reason: Constipation Melatonin (Melatonin 3 Mg Tablet) 6 mg PO BEDTIME PRN PRN Reason: Insomnia Ondansetron HCl (Ondansetron Hcl 4 Mg/2 Ml Vial) 4 mg IVPUSH Q8H PRN PRN Reason: Nausea and Vomiting Last Admin: 08/29/24 11:23 Dose: 4 mg Documented By: CHARLY Oxcarbazepine (Oxcarbazepine 300 Mg Tablet) 300 mg PO BID [facility] Last Admin: 08/30/24 08:35 Dose: 300 mg Documented By: CHARLY Sodium Chloride (0.9 % Sodium Chloride Flush 3 Ml Syringe) 3 ml IVFLUSH QSHIFT [facility] Last Admin: 08/30/24 08:37 Dose: 3 ml Documented By: CHARLY Trazodone HCl (Trazodone Hcl 50 Mg Tablet) 150 mg PO BEDTIME PRN PRN Reason: Sleep Last Admin: 08/29/24 21:16 Dose: 150 mg Documented By: JAQUELINE <Bob Trujillo PA-C - Last Filed: 08/30/24 09:08> Labs CBC & Chem 7: 08/30/24 06:46 08/30/24 06:46 <Bob Trujillo PA-C - Last Filed: 08/30/24 09:08> Labs: Laboratory Results - last 24 hr 08/29/24 08/29/24 08/29/24 11:00 16:08 20:22 MCV MCH MCHC RDW Plt Count MPV Immature Gran % (Auto) Neut % (Auto) Lymph % (Auto) Christian % (Auto) Eos % (Auto) Baso % (Auto) Lymph # (Auto) Christian # (Auto) Eos # (Auto) Baso # (Auto) Abs Immat Gran (auto) Absolute Neuts (auto) Absolute Nucleated RBC Nucleated RBC % (auto) Smear Tech's Comments Anion Gap Estim Creat Clear Calc Estimated GFR POC Glucose 356 H* 303 H 268 H Random Glucose Calcium 08/30/24 08/30/24 06:46 07:44 MCV 85.4 MCH 27.3 MCHC 31.9 RDW 13.8 Plt Count 262 MPV 10.4 Immature Gran % (Auto) 0.8 H Neut % (Auto) 67.3 Lymph % (Auto) 19.1 L Christian % (Auto) 5.5 Eos % (Auto) 6.4 H Baso % (Auto) 0.9 Lymph # (Auto) 1.2 Christian # (Auto) 0.4 Eos # (Auto) 0.4 Baso # (Auto) 0.1 Abs Immat Gran (auto) 0.05 H Absolute Neuts (auto) 4.3 Absolute Nucleated RBC 0.000 Nucleated RBC % (auto) 0.0 Smear Tech's Comments VERIFIED Anion Gap 10 L Estim Creat Clear Calc 81.8 Estimated GFR > 60 POC Glucose 343 H Random Glucose 327 H Calcium 8.3 L <Bob Trujillo PA-C - Last Filed: 08/30/24 09:08> Procedures Date of Service Date of Service: 08/30/24 <Bob Trujillo PA-C - Last Filed: 08/30/24 09:08> 08/30/24 <Duke Rai MD - Last Filed: 08/30/24 10:28> Progress Note: A&P Assessment and plan (1) SBO (small bowel obstruction): Status: Acute <Bob Trujillo PA-C - Last Filed: 08/30/24 09:08> Assessment and Plan: Says she feels significantly better today Denies abdominal pain Tolerating liquids well Abdomen is soft and benign Okay to advance diet as tolerated Seen and examined independently <Duke Rai MD - Last Filed: 08/30/24 10:28> Assessment and Plan: 53 year old female admitted for SBO. Patient improving overall. Still has some pain in the epigastric area, abdomen otherwise soft and benign. Patient okay to resume diabetic diet. If tolerating diet, okay to be discharged. ambulation as tolerated okay to advance to diabetic diet pain control as needed antiemetics as needed <Bob Trujillo PA-C - Last Filed: 08/30/24 09:08> Time Spent With Patient Time: Total time managing care of this patient today ____ minutes. <Bob Trujillo PA-C - Last Filed: 08/30/24 09:08> Quality Stroke Does the patient have a stroke diagnosis?: No <Bob Trujillo PA-C - Last Filed: 08/30/24 09:08> VTE Prior VTE?: No <Bob Trujillo PA-C - Last Filed: 08/30/24 09:08> VTE Risk Level:: Medical - moderate - high <Bob Trujillo PA-C - Last Filed: 08/30/24 09:08> VTE Device Contraindication: N/A - Device Ordered <Bob Trujillo PA-C - Last Filed: 08/30/24 09:08> VTE Drug Contraindication: N/A - Med Ordered <Bob Trujillo PA-C - Last Filed: 08/30/24 09:08>
[2024-08-30 11:04] LABS: Glucose, Whole Blood 412 mg/dL (60-115)
[2024-08-30 11:07] VITALS: BP 128/64; PULSE 88; RESP 18; TEMP 36.8; O2SAT 95
--- NOTE | 2024-08-30 11:09 | MHC.CM.PN ---
PER HOSPITALIST ANTIC PT WILL BE MEDICALLY CLEARED FOR DC HOME IS TOLERATING DIET, PT WILL DC W/RESUMPTION OF TRACH/HOME O2/NEBULIZER/SUCTION AND [employer] HRS, [facility] FOR TRANSPORT AT 3:30PM.
--- NOTE | 2024-08-30 14:15 | P.DS_ITS ---
DS: Providers Provider Date of Service: 08/30/24 Date of admission: 08/28/24 07:16 Date of discharge: 08/30/24 Primary care physician: Flynn Granado MD Consults: 08/28/24 08:20 Consult to General Surgery Routine Consulting Provider: [facility] General Surgeons Reason for consultation: small bowel obstruction DS: Diagnosis Discharge Diagnosis (1) SBO (small bowel obstruction): Status: Acute (2) Diabetes mellitus: Status: Acute (3) Hyperglycemia: Status: Acute DS: Summary Hospital Course Hospital Course: Admission note HPI The patient is a 53 year old F with a PMH of prior intraabdominal surgery (necrotizing pancreatitis - 4 years ago), DM, hisory of trach, chronic resp failure on 3L O2 as needed, DM, obesity hypoventilation syndrome/mild intermittent asthma, bipolar disorder and multiple others who presents to [facility] ED with a 1 day history of mid abdominal pain which began the evening prior to hospitalization. The patient reports several episodes of nonbilious vomiting. She reports last bowel movement 24 hours prior to hospitalization but endorses that she is continuing to have flatus. She denies any cardiac or respiratory symptoms. She reports pain is the primary issue with no improvements with her IV analgesics in the ED. Work up in the ED showed CT findings showing SBO. The patient is declinging NG tube placement. She has been treated with IV zofran, IV dilaudid 0.5mg x 1; Her glucose is elevated > 400 and she has been given 12 units of lispro. The general surgery team has been notified by the ED provider. She will now be admitted for further management of SBO. Hospital course The patient was admitted for treatment of SBO as shown on abdominal images. Daisy renato with bowel rest, pain medicaitons and IV fluids as surgical team followed her inpatient. her symptoms improved and she was started on clears the next day and tolerated well as she passed gas and had bowel movements with no reported nausea or vomiting. pain significantly improved. Diet advanced to regular with good tolerance. Plan to discharge home with advice to remain well hydrated , advance diet as tolerated and follow with surgery as needed. She also has Chronic resp failure on Trach. on 3L PRN, continue For Uncontrolled DM with hyperglycemia monitored with POC + sliding scale. To restart Discharge plan Advance your diet as tolerated stay well hydrated follow with surgery as needed Time Attestation Discharge Coordination Time (in mins): 38 Quality: Safe Use of Opioids Does Pt have an Active Cancer Diagnosis on the Problem List?: No Quality: Stroke Does the patient have a stroke diagnosis?: No Physical Exam Vital Signs: Vital Signs: Last Vital Signs Temp 98.2 F 08/30/24 11:07 Pulse 88 08/30/24 11:07 Resp 18 08/30/24 11:07 BP 128/64 08/30/24 11:07 Pulse Ox 95 08/30/24 11:07 O2 Del Method Room Air 08/30/24 11:07 O2 Flow Rate 2 08/30/24 03:17 Oxygen Flow Rate 2 08/28/24 04:50 BMI result Body Mass Index 40.1 Const: Other: Constitutional : interactive, not in distress Cardiovascular : no JVP, no lower extremity edema Respiratory : bilateral chest movement, Trach in place, not in resp distress Gastrointestinal: soft, lax, Non tender, +ve bowel sounds Skin : Warm, Dry Neurological : Alert & oriented , No focal deficit DS: Data Data Completed and Pending Completed studies during hospitalization [Text1]: Procedures Dilation of Left Ureter with Intraluminal Device, Via Natural or Artificial Opening Endoscopic (06/11/21) Fluoroscopy of Left Kidney, Ureter and Bladder (06/11/21) Labs on day of discharge: Laboratory Results - last 24 hr 08/29/24 08/29/24 08/30/24 16:08 20:22 06:46 WBC 6.4 RBC 4.44 Hgb 12.1 Hct 37.9 MCV 85.4 MCH 27.3 MCHC 31.9 RDW 13.8 Plt Count 262 MPV 10.4 Immature Gran % (Auto) 0.8 H Neut % (Auto) 67.3 Lymph % (Auto) 19.1 L Woodward % (Auto) 5.5 Eos % (Auto) 6.4 H Baso % (Auto) 0.9 Lymph # (Auto) 1.2 Woodward # (Auto) 0.4 Eos # (Auto) 0.4 Baso # (Auto) 0.1 Abs Immat Gran (auto) 0.05 H Absolute Neuts (auto) 4.3 Absolute Nucleated RBC 0.000 Nucleated RBC % (auto) 0.0 Smear Tech's Comments VERIFIED Sodium 137 Potassium 4.4 Chloride 99 Carbon Dioxide 32 H Anion Gap 10 L BUN 11 Creatinine 0.90 Estim Creat Clear Calc 81.8 Estimated GFR > 60 POC Glucose 303 H 268 H Random Glucose 327 H Calcium 8.3 L 08/30/24 08/30/24 07:44 11:01 WBC RBC Hgb Hct MCV MCH MCHC RDW Plt Count MPV Immature Gran % (Auto) Neut % (Auto) Lymph % (Auto) Woodward % (Auto) Eos % (Auto) Baso % (Auto) Lymph # (Auto) Woodward # (Auto) Eos # (Auto) Baso # (Auto) Abs Immat Gran (auto) Absolute Neuts (auto) Absolute Nucleated RBC Nucleated RBC % (auto) Smear Tech's Comments Sodium Potassium Chloride Carbon Dioxide Anion Gap BUN Creatinine Estim Creat Clear Calc Estimated GFR POC Glucose 343 H 412 H* Random Glucose Calcium Imaging CT scan - abdomen: Radiologist's impression: Impression: 1. Large ventral abdominal wall hernia stable mid small bowel obstruction with mesenteric edema and trace ascites but no free air or pneumatosis intestinalis. The transition point is in the lower mid abdomen level bowel obstruction is probably partial or near complete. Similar findings were demonstrated on CT dated 05/31/2024. The colon is full of stool. 2. Hepatic steatosis. Post cholecystectomy. Appendix not visualized. No significant diverticular disease. 3. Stable ancillary findings. Discharge Plan Discharge Anticipated Discharge Date/Time: 08/30/24 14:12 Patient Disposition: Home, Self-Care Discharge Diagnosis: small bowel obstruction Referrals: Flynn Granado MD [Primary Care Provider, Internal Medicine] - 1 Week Discharge Medications: Continued cetirizine [Allergy Relief (cetirizine)] 10 mg tablet 10 mg PO DAILY PRN (Reason: allergy symptoms) Qty: 30 2RF insulin lispro 100 unit/mL insulin pen 1 sliding scale dose subcut TIDAC 30 Days Qty: 15 3RF Rx Instructions: 2 to 20 units TID with meals per sliding scale promethazine 25 mg tablet 25 mg PO DAILY PRN (Reason: nausea) Qty: 30 0RF ibuprofen 800 mg tablet 800 mg PO Q8H PRN (Reason: pain) Qty: 30 0RF lurasidone 80 mg tablet 80 mg PO BEDTIME insulin glargine [Lantus Solostar U-100 Insulin] 100 unit/mL (3 mL) insulin pen 20 unit subcut BEDTIME clonazepam 1 mg tablet 1 mg PO BID PRN (Reason: Anxiety) oxcarbazepine 300 mg tablet 300 mg PO BID famotidine 20 mg tablet 20 mg PO BID trazodone 150 mg tablet 150 mg PO BEDTIME PRN (Reason: Sleep) albuterol sulfate [Ventolin HFA] 90 mcg/actuation HFA aerosol inhaler 2 puff inhalation Q4H PRN (Reason: wheezing) fluticasone propionate 50 mcg/actuation spray,suspension 1 spray intranasal DAILY PRN (Reason: Allergy Symptoms) Rx Instructions: INHALE IN BOTH NOSTRILS metformin 500 mg tablet extended release 24 hr 1,000 mg PO BID escitalopram oxalate 20 mg tablet 20 mg PO BEDTIME gabapentin 300 mg capsule 300 mg PO BID atorvastatin 20 mg Tablet 20 mg PO DAILY Dulera 200-5 mcg/actuation Hfa Aerosol Inhaler 2 puff INHALATION BID (DME) blood-glucose meter [FreeStyle Lite Meter] Kit See Rx Instructions .ROUTE .MEDSUPPLY Qty: 1 0RF Rx Instructions: As directed (DME) FreeStyle Lite Strips Strip See Rx Instructions .ROUTE .MEDSUPPLY Qty: 100 12RF Rx Instructions: As directed 3 times a day (DME) lancets [FreeStyle Lancets] 28 gauge misc See Rx Instructions .ROUTE .MEDSUPPLY Qty: 100 12RF Rx Instructions: As directed 3 times a day Discharge Orders: Discharge Order (Routine); Ordered 08/30/24 Ordered By: Anand Nolasco Diet: Advance to usual diet Activity on Discharge: As tolerated Stand Alone Forms: Patient Portal Discharge page Print Language: French Care Plan Goals: Advance your diet as tolerated stay well hydrated follow with surgery as needed Health Concerns: Small bowel obstruction Plan of Treatment: fluids, advancing ciet Assessment: as above
[2024-08-30] MEDS: Insulin Glargine,Hum.rec.anlog 100 UNIT/ML 10 ML VIAL 10 UNIT SUBCUT (14:49)
[2024-08-30 15:05] VITALS: BP 131/72; PULSE 77; RESP 18; TEMP 36.7; O2SAT 95
--- NOTE | 2024-08-30 16:37 | P.CDIM_ITS ---
PROVIDER RESPONSE TEXT: To clarify, the appropriate diagnosis supported by the clinical indicators: SBO: partial QUERY TEXT: PHYSICIAN'S DOCUMENTATION REQUEST Date of Query: 08/30/2024 07:42 AM EDT Patient Name: Anna Marie Black Admit Date: 08/28/2024 Dear Anand Nolasco MD, A review of the medical record indicates additional documentation may be needed. Please review below and update the documentation accordingly. Clinical Indicators: Progress note 08/29/24 - SBO, improving Transition point in the mid abd Tolerating clears, IVF, IVF pain control. Advance diet as tolerated. Based on the above, could you clarify and further specifics to the documented SBO? SBO partial, complete, adynamic, reflex, volvulus, with adhesions, ischemic stricture, neurogenic etc. Other specified Other (explain) Clinically unable to determine (explain) Thank you, Carol Izaguirre, CCS, CDIS Use of terms such as suspected, likely, concern for, or probable (associated with a specific diagnosis that is being evaluated, monitored, or treated as if it exists) are acceptable and can be coded in the inpatient setting, when documented at the time of discharge. Please use your independent medical judgment in providing your response. THIS QUERY IS PART OF THE PERMANENT MEDICAL RECORD
== END 2024-08-30 15:35 | disposition home or self-care (01) | DRG 247 ==
LOC: HO.ED 07:29 → HO.EDOVER 07:31 → HO.IMC 15:43
PROVIDERS: Family Medicine; Admitting Provider Student in an Organized Health Care Education/Training Program; Emergency Provider Emergency Medicine; PCP Internal Medicine; Visit Provider Student in an Organized Health Care Education/Training Program
DX: K56.600 Partial intestinal obstruction, unspecified as to cause (principal); J96.10 Chronic respiratory failure, unspecified whether with hypoxia or hypercapnia; Z93.0 Tracheostomy status; E11.65 Type 2 diabetes mellitus with hyperglycemia; E66.01 Morbid (severe) obesity due to excess calories; Z68.41 Body mass index [BMI] 40.0-44.9, adult; Z71.3 Dietary counseling and surveillance; Z79.4 Long term (current) use of insulin; Z79.84 Long term (current) use of oral hypoglycemic drugs; Z79.899 Other long term (current) drug therapy
CPT/HCPCS: 36415; 74177; 80048; 80053; 81001; 81003; 82947; 83605; 83690; 85025; 85027; 99285; J1171; J1650; J2405; J7120; Q9967

== ENCOUNTER → 2024-08-28 04:49 | Outpatient (BNV) | payer OTHER, SELFPAY | PROVIDERS: Emergency Provider Emergency Medicine; PCP Internal Medicine; Visit Provider Radiology Diagnostic Radiology | DX: K43.6 Other and unspecified ventral hernia with obstruction, without gangrene (principal) | CPT/HCPCS: 74177 ==

== ENCOUNTER → 2024-08-28 07:16 | Outpatient (BNV) | payer OTHER, SELFPAY | PROVIDERS: Admitting Provider Student in an Organized Health Care Education/Training Program; Emergency Provider Emergency Medicine; PCP Internal Medicine; Visit Provider Family Medicine | DX: K56.609 Unspecified intestinal obstruction, unspecified as to partial versus complete obstruction (principal); J96.10 Chronic respiratory failure, unspecified whether with hypoxia or hypercapnia; E11.65 Type 2 diabetes mellitus with hyperglycemia | CPT/HCPCS: 99223; 99232; 99239 ==

== ENCOUNTER → 2024-08-28 07:16 | Outpatient (BNV) | payer OTHER, SELFPAY | PROVIDERS: Admitting Provider Student in an Organized Health Care Education/Training Program; Emergency Provider Emergency Medicine; PCP Internal Medicine; Visit Provider Surgery | DX: R10.9 Unspecified abdominal pain (principal) | CPT/HCPCS: 99222; 99499 ==

== ENCOUNTER 2024-09-07 10:09 | Outpatient (AMB) | payer OTHER, SELFPAY ==
--- NOTE | 2024-09-07 10:16 | MHC.PC.OV ---
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 PMH significant for prior Intraabdominal surgery (necrotizing pancreatitis - 4 years ago), DM, hisory of trach, chronic resp failure on 3L O2 as needed, DM, obesity, hypoventilation syndrome/mild intermittent asthma, and bipolar disorder. She was admitted at [facility] on 08/28 - 08/30 for an evaluation and treatment of SBO as shown on abdominal images. Was Treated with bowel rest, pain medications and IV fluids. Today reports feeling better and denies Abdominal pain, N/V/D or fevers/chills. [facility] Medical History Obesity (BMI 30-39.9) Bipolar depression Anxiety Insomnia Tracheostomy present Pure hypercholesterolemia Diabetes mellitus Asymptomatic bacteriuria Morbid obesity Partial small bowel obstruction Tracheostomy dependent History of cardiac arrest Wound drainage Takotsubo cardiomyopathy Kidney stones UTI (urinary tract infection) Bipolar 1 disorder Asthma Substance abuse Surgical History History of tracheostomy S/P ureteral stent placement H/O exploratory laparotomy S/P cholecystectomy Family History Mother No pertinent family history Father No pertinent family history Social History Household Members: Spouse Household Members Other:: 1 Housing: Apartment Do you presently have visiting nurse or other home services: No Alcohol intake: former Comment: stayed in ed Patient Tobacco Use Status: Never used Tobacco e-Cigarette/Vaping Use: Never Used Second Hand Smoke Exposure: Yes Advance Directives Date on File: 02/04/23 service: No Current occupational status: disabled Cognitive needs: No Hearing needs: No Vision needs: Yes Questionnaire Thrive Questionnaire Date Thrive assessed: 09/07/24 I am a: Patient What is your living situation today?: I have a steady place to live Within the past 12 months, did the food you bought not last and you didn't have the money to get more?: Sometimes True Within the past 12 months, did you worry whether your food would run out before you got money to buy more?: Often true Do you have trouble paying for medicines?: No Do you have trouble getting transportation to medical appointments?: No Do you have trouble paying your heating and electricity bill?: No Do you have trouble taking care of your child, family member or friend?: No Do you have trouble with day-to-day activities such as bathing, preparing meals, shopping, managing finances, etc.?: Yes Are you currently unemployed and looking for a job?: I choose not to answer this question Are you interested in more education?: Yes Currently or been in a relationship where the following occur: No concerns reported THRIVE Score: 2 AILYN-7 AMB Questionnaire AILYN-7 Date AILYN - 7 assessed: 07/10/24 Source: Developed by Drs. Aleksey Bueno, Rebekah Campos, Jeremy Kimball and colleagues, with an educational ignacio from [employer]. Review of Systems Const All systems reviewed & are unremarkable except as noted in HPI and below Physical exam (Primary Care) Vital Signs: Last Vital Signs Temp 97.2 F 09/07/24 10:20 Pulse 101 H 09/07/24 10:20 BP 138/64 09/07/24 10:20 Pulse Ox 94 09/07/24 10:20 Oxygen Delivery Method Room Air 09/07/24 10:20 Tobacco/Smoking Status: Tobacco use Status Tobacco use date assessed 07/10/24 09/07/24 10:27 Patient Tobacco Use Status Never used Tobacco 09/07/24 10:27 e-Cigarette/Vaping Use Never Used 09/07/24 10:27 Thrive Assessment: Date of Thrive Assessment Date Thrive assessed 09/07/24 09/07/24 10:27 Currently or been in a relationship where the following occur: No concerns reported Const General: no acute distress Nutritional Appearance: obese Neck Neck images:  1. Tracheostomy present Resp Effort & Inspection: normal respiratory effort and able to speak in complete sentences Cardio Heart sounds: S1 normal heart sound present and S2 normal heart sound present GI Inspection: Yes Abdominal panniculus present Palpation (GI): Soft to palpation, not firm, Tenderness to palpation present (GI) in the epigastrum, no guarding and not rigid Auscultation: normal bowel sounds Coding Level of Care Code Est Pt Level 4 (65848) Diagnoses Intractable abdominal pain R10.9 Time Spent (min) 20 Assessment & Plan Assessment & Plan (1) Intractable abdominal pain: Code(s): R10.9 - Unspecified abdominal pain Category: Medical Plan: Had SBO - resolved No abdominal pain.
[2024-09-07 10:20] VITALS: BP 138/64; PULSE 101; TEMP 36.2; O2SAT 94
--- OUTSIDE RECORDS SUMMARY | 2024-09-07 10:49 | XMS_ITS | Clinical Summary ---
Author Organization [facility] [address] [place] [address] [place] [address] [place] Phone Care Team Providers Care Nurse Behavioral Health Care Name Role Phone Megan Anderson MD Primary [...] 08/02/19 25 Active Ventolin HFA 90 mcg/actuation inhalerIndicatio ns:Moderate persistent asthma without complication INHALE 2 PUFFS BY MOUTH EVERY 6 (SIX) HOURS IF NEEDED FOR WHEEZING. COUGH 18 each 08/18/19 25 Active albuterol HFA (Ventolin HFA) 90 mcg/actuation inhalerIndicatio ns:Moderate persistent asthma without complication INHALE 2 PUFFS [...] 08/05/2021 DVT of deep femoral vein, right ([facility] V24, [facility] V28) 05/28/2021 Assessment & Plan (02/02/2024 [...] complication, without long-term current use of insulin ([facility] V24, [facility] V28) 01/20/2018 Assessment & Plan (02/02/2024 [...] 4 months. Narcotic dependence, in vasu ssion ([facility] V24, [facility] V28) 11/02/2011 Overview (01/11/2024): On methadone [...] Care Team Description 06/29/2024 Telephone Adult Medicine [address] [phone] Megan Anderson MD Forms/questionnaires ([facility] - Health Status Report) 06/11/2024 Telephone Adult Medicine [address] [phone] Caron Lea MA from Last 3 Months [...] 6mo and older 11/26/2019,11/13/2019,11/04/2018 PPD Test 08/30/2018 HammerKit SARS-CoV-2 COVID-19, mRNA, LNP-S, preservative free 04/20/2020,04/03/2020 Td Tetanus diptheria (Tdvax) 7yo and older 04/14/2006 Tdap Tetanus diptheria acell ular pertussis (Boostrix; Adacel) 7yo and older 01/06/2018 Surgical History Surgery Date Site/Laterality Comments OTHER SURGICAL HISTORY PROCEDURE: [facility] ARTHRODESIS POSTERIOR SPINAL DFRM <6 VRT [facility] UPPER GASTROINTESTINAL ENDOSCOPY 05/04/2019 PROCEDURE: [facility] UPPER GI ENDOSCOPY PERFORMED; COMMENT: Visually normal on treatment with famotidine 40 mg every morning. CYSTOSCOPY 06/2021 PROCEDURE: [facility] CYSTOURETHROSCOPY; COMMENT: Cystoscopy and stent placement for [...] essential hypertension PEA (Pulseless electrical ac tivity) ([facility] V24, [facility] V28) 11/06/2020 DX:PEA (Pulseless electrica l activity) ([facility]); COMMENT: Found at home PEA and apneic [facility] SICU admit 11/01/20 Pulmonary embolism ([facility] V24, [facility] V28) 05/28/2021 DX:Pulmonary embolism (HCC) Necrotizing pancreatitis [...] 97 02/02/2024 11:06 AM EST Temperature 35.8 C (96.4 F) 02/02/2024 11:06 AM EST Respiratory Rate 17 02/02/2024 11:06 AM EST [...] (05/21/2024) Anatomical Region Laterality Modality Ultrasound Provider Radha Onbase IMG US PROCEDURES Final Result * Annual BMP Blood Test (09/23/2023) Pathologist [facility] Annual BMP Blood Test abstracted Result [facility] Provider HEALTH MAINTENANCE Final Result * (ABNORMAL) Lipid panel (09/23/2023) [facility] LDL/HDL Ratio 5(A) 0 - 4 Triglycerides 418(A) 0 - 150 mg/dL Cholesterol 149 0 - 200 mg/dL HDL 33(A) >=40 mg/dL LDL Cholesterol 33 0 - 100 mg/dL Blood Venous blood specimen / Unknown Result [facility] Historical Provider LAB BLOOD ORDERABLES Laila l Result * Depression Screening (07/13/2023) Pathologist [facility] Depression Screening abstracted Historical Provider HEALTH MAINTENANCE Final Result * (ABNORMAL) Hemoglobin A1c (07/06/2022) [facility] Hemoglobin A1C 9.7(A) <=6.5 % Blood Venous blood specimen / Unknown Result [facility] Historical Provider LAB BLOOD ORDERABLES Laila l Result * Cervical Cancer Screening: HPV (06/17/2022) Cervical Cancer Screening: HPV negative, abstracted Historical Provider HEALTH MAINTENANCE Final Result * Hepatitis C Screening (11/14/2008) Pathologist [facility] Hepatitis C Screening abstracted Historical Provider HEALTH MAINTENANCE Final Result * Urine Albumin Creatinine Ratio (12/11/2004) Pathologist [facility] Urine Albumin Creatinine Ratio abstracted Historical Provider HEALTH MAINTENANCE Final Result from Last 3 Months or Most Recently Relevant to Health Maintenance Insurance [facility] Care Teams Nurse Behavioral Health Care Relationship Specialty Start Date End Date Megan Anderson MD [address] [place] [id number] PCP - General Internal Medicine 10/12/21
== END 2024-09-07 11:00 | disposition home or self-care (01) ==
LOC: HO.HMCH 10:10
PROVIDERS: PCP Internal Medicine; Visit Provider Nurse Practitioner Family
DX: R10.9 Unspecified abdominal pain (principal)

== ENCOUNTER → 2024-09-07 10:09 | Outpatient (BNVA) | payer OTHER, SELFPAY | PROVIDERS: PCP Internal Medicine; Visit Provider Nurse Practitioner Family | DX: E11.9 Type 2 diabetes mellitus without complications (principal); R10.9 Unspecified abdominal pain; J96.10 Chronic respiratory failure, unspecified whether with hypoxia or hypercapnia; E66.9 Obesity, unspecified; J45.20 Mild intermittent asthma, uncomplicated; F31.9 Bipolar disorder, unspecified; Z99.81 Dependence on supplemental oxygen | CPT/HCPCS: 99212 ==

== ENCOUNTER 2024-11-01 12:10 | Outpatient (AMB) | payer OTHER, SELFPAY ==
--- NOTE | 2024-11-01 12:31 | MHC.PC.OV ---
Vital Signs 11/01/24 12:34 Height 5 ft 3 in Weight 219 lb 2 oz BMI 38.8 BP 118/68 Blood Pressure Location Lt brachial Position Sitting Pulse 98 Pulse Source Pulse Oximeter Pulse Oximetry (%) 94 Oxygen Delivery Method Room Air Intake Visit Reasons: uncontrolled DM A1C, hyperlipidasthma, bipolar Intake Note: Patient is here to follow up on DM, HLD, Bipolar. 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 Required: No Plane Captain: Not Required per policy Accompanied by: Self / Same As Patient Allergies pantoprazole Allergy (Mild, Verified 11/01/24 12:53) Redness of Skin Medication List - Last Reconciled 11/01/24 by Flynn Granado MD albuterol sulfate 90 mcg/actuation (Ventolin HFA) 2 puffs inhalation Q4H PRN atorvastatin 20 mg PO DAILY blood sugar diagnostic (FreeStyle Lite Strips) As directed 3 times a day blood-glucose meter (FreeStyle Lite Meter kit) As directed cetirizine (Allergy Relief (cetirizine)) 10 mg PO DAILY PRN clonazepam 1 mg PO BID PRN escitalopram oxalate 20 mg PO BEDTIME famotidine 20 mg PO BID fluticasone propionate 50 mcg/actuation 1 spray intranasal DAILY PRN gabapentin 300 mg PO BID 30 days ibuprofen 800 mg PO Q8H PRN insulin glargine (Lantus Solostar U-100 Insulin) 20 units subcut BEDTIME insulin lispro 1 sliding scale dose subcut TIDAC 30 days lancets (FreeStyle Lancets) As directed 3 times a day lurasidone 80 mg PO BEDTIME metformin ER 1,000 mg PO BID mometasone-formoterol 200-5 mcg/actuation (Dulera) 2 puffs inhalation BID oxcarbazepine 300 mg PO BID promethazine 25 mg PO DAILY PRN trazodone 150 mg PO BEDTIME PRN Tobacco use date assessed: 11/01/24 Dental Screening Dental Screen Date: 11/01/24 Did you have a dental visit in the last 12 months?: Yes Did you have a dental problem in the last 6 months where you did not have access to dental care?: No Was dental information given to patient?: Patient has dentist HPI uncontrolled DM A1C, hyperlipidasthma, bipolar HPI Details Patient comes in today for her follow-up visit She was admitted to the hospital for a couple of days back in August 2024 for small-bowel obstruction after she presented to the ER with increasing abdominal pain and vomiting Workups done in the ER revealed findings of small-bowel obstruction on CT of the abdomen Patient at the time reportedly declined NG tube placement and was instead just treated with IV Zofran Surgery was consulted but patient's symptoms apparently started improving symptomatically and her diet was gradually advanced as tolerated Her serum glucose level was also significantly elevated at the time at over 400 mg/dL and she was treated with insulin while in the hospital She was eventually discharged home after a couple of days when her symptoms continue to improve and she was advised to stay hydrated, continue on her current medications and follow-up with surgery on an outpatient basis although it does not look like she ever did see surgery after her discharge Patient recalls being advised that due to her multiple abdominal surgeries in the past, her presentation is not surprising and that she will always be at risk for similar abdominal symptoms Patient also did not get her previously ordered labs done even though she was instructed to proceed to the lab directly after her visit last June to get these done She claims that she was told that there were no orders in the system when she went for her labs, which I find surprising considering that the orders are still presently in her chart - I am suspecting that patient just never did go to get these done at all Patient currently denies any fever, headaches or dizziness Denies any chest pains, no increased shortness of breath No nausea/vomiting, still has on and off abdominal pain, which are chronic No change in bowel habits noted Patient is presently requesting to have her gabapentin increased from BID to TID dosing to better help with her chronic pain She also adds that her current psychiatric prescriber is trying to wean her off her clonazepam, which she does not agree with, and would like to request for me to take over the prescription of her clonazepam for her [facility] Medical History (Updated 11/02/24 @ 00:05 by Flynn Granado MD) Lumbar degenerative disc disease Small bowel obstruction Uncontrolled diabetes mellitus with hyperglycemia Obesity (BMI 30-39.9) Bipolar depression Anxiety Insomnia Tracheostomy present Pure hypercholesterolemia Diabetes mellitus Asymptomatic bacteriuria Morbid obesity Partial small bowel obstruction Tracheostomy dependent History of cardiac arrest Wound drainage Takotsubo cardiomyopathy Kidney stones UTI (urinary tract infection) Bipolar 1 disorder Asthma Substance abuse Surgical History History of tracheostomy S/P ureteral stent placement H/O exploratory laparotomy S/P cholecystectomy Family History Mother No pertinent family history Father No pertinent family history Social History Household Members: Spouse Household Members Other:: 1 Housing: Apartment Do you presently have visiting nurse or other home services: No Alcohol intake: former Comment: stayed in ed Patient Tobacco Use Status: Never used Tobacco e-Cigarette/Vaping Use: Never Used Second Hand Smoke Exposure: No Advance Directives Date on File: 02/04/23 service: No Current occupational status: disabled Cognitive needs: No Hearing needs: No Vision needs: Yes Questionnaire PHQ-9 Over the last 2 weeks, how often have you been bothered by any of the following problems? 1. Little interest or pleasure in doing things: several days 2. Feeling down, depressed, or hopeless: several days 3. Trouble falling or staying asleep, or sleeping too much: not at all 4. Feeling tired or having little energy: several days 5. Poor appetite or overeating: not at all 6. Feeling bad about yourself - or that you are a failure or have let yourself or your family down: several days 7. Trouble concentrating on things, such as reading the newspaper or watching television: several days 8. Moving or speaking so slowly that other people could have noticed. Or the opposite - being so fidgety or restless that you have been moving around a lot more than usual: not at all 9. Thoughts that you would be better off or of hurting yourself in some way: not at all Total score: 5 Depression Screening Interpretation: Positive Depression Screening Follow-up: Existing condition and In treatment Depression Screening Done: Yes 15286 - PHQ-9 Billing: Yes Source: Developed by Drs. Aleksey Bueno, Rebekah Campos, Jeremy Kimball and colleagues, with an educational ignacio from [employer]. Thrive Questionnaire Date Thrive assessed: 11/01/24 I am a: Patient What is your living situation today?: I have a steady place to live Within the past 12 months, did the food you bought not last and you didn't have the money to get more?: Sometimes True Within the past 12 months, did you worry whether your food would run out before you got money to buy more?: Often true Do you have trouble paying for medicines?: No Do you have trouble getting transportation to medical appointments?: No Do you have trouble paying your heating and electricity bill?: No Do you have trouble taking care of your child, family member or friend?: No Do you have trouble with day-to-day activities such as bathing, preparing meals, shopping, managing finances, etc.?: Yes Are you currently unemployed and looking for a job?: I choose not to answer this question Are you interested in more education?: Yes Currently or been in a relationship where the following occur: No concerns reported THRIVE Score: 2 AUDIT C Alcohol Use Questionnaire (AUDIT-C) 1. How often do you have a drink containing alcohol?: Never 3. How often do you have six or more drinks on one occasion?: Never Total Score: 0 Score Reviewed/Action Taken: Yes AILYN-7 AMB Questionnaire AILYN-7 Date AILYN - 7 assessed: 11/01/24 Feeling nervous, anxious, or on edge: 3 = Nearly every day Not being able to stop or control worryin = Nearly every day Worrying too much about different things: 3 = Nearly every day Trouble relaxin = Nearly every day Being so restless that it is hard to sit still: 3 = Nearly every day Becoming easily annoyed or irritable: 3 = Nearly every day Feeling afraid as if something awful might happen: 3 = Nearly every day Total AILYN-7 score (0-4 normal; 5-9 mild; 10-14 moderate; 15-21 severe): 21 Source: Developed by Drs. Aleksey Bueno, Rebekah Campos, Jeremy Kimball and colleagues, with an educational ignacio from [employer]. AILYN-7 Assessment Billing AILYN-7 Assessment Tool: AILYN-7 Assessment 94120 Review of Systems Const Denies chills, Reports fatigue, Denies fever(s) and Denies headache(s) ENT Details: (+) permanent tracheostomy present Denies dysphagia, Denies dizziness, Denies otalgia, Denies headache(s), Denies neck pain, Denies odynophagia and Denies sore throat Card Denies chest pain, Denies palpitations and Denies dyspnea Resp Denies chest congestion, Denies cough and Denies dyspnea GI Reports abdominal pain (on and off), Denies constipation, Denies dysphagia, Denies heartburn, Denies diarrhea, Denies nausea, Denies odynophagia and Denies vomiting Denies difficulty voiding, Reports nocturia, Denies dysuria and Denies urinary urgency Musc Details: (+) pain over the left big (first) toe Reports back pain and Denies neck pain Skin/Breast Denies rash Neuro Denies dizziness and Denies headache(s) Psych Reports anxiety Endo Reports fatigue and Denies palpitations Physical exam (Primary Care) Vital Signs: Last Vital Signs Pulse 98 11/01/24 12:34 BP 118/68 11/01/24 12:34 Pulse Ox 94 11/01/24 12:34 Oxygen Delivery Method Room Air 11/01/24 12:34 BMI result Body Mass Index 38.8 Tobacco/Smoking Status: Tobacco use Status Tobacco use date assessed 11/01/24 11/01/24 12:36 Patient Tobacco Use Status Never used Tobacco 11/01/24 12:36 e-Cigarette/Vaping Use Never Used 11/01/24 12:36 PHQ-9: PHQ-9 Score PHQ-9: Total score 5 11/01/24 12:54 Depression Screening Interpretation: Positive Depression Screening Follow-up: Existing condition and In treatment Thrive Assessment: Date of Thrive Assessment Date Thrive assessed 11/01/24 11/01/24 12:47 Currently or been in a relationship where the following occur: No concerns reported Const General: no acute distress and alert HENMT Ears: TM's normal bilaterally and EAC's normal Throat: Yes posterior oropharynx normal and Yes tonsils normal (no TP congestion) Neck Neck: Yes supple, No lymphadenopathy and Yes tracheostomy present Resp Auscultation: clear to auscultation bilaterally, no rales and no wheezes Cardio Rate: regular rate Rhythm: regular rhythm Heart sounds: no murmurs GI Palpation (GI): Soft to palpation and nontender Auscultation: normal bowel sounds General: Yes no CVA tenderness Back/Spine/Pelvis Back: no CVA tenderness Thoracic/Lumbar Spine: lumbar spinal tenderness (mild) Skin Rashes: no rashes Extrem General: Yes no clubbing, cyanosis or edema Left lower extremity: foot Details: tenderness Location: of the great toe Location: along the entire digit and no edema Results AMB Hemoglobin A1c AMB Hemoglobin A1c 13.4 % Last Edit by Niyah Matthews CMA on 11/01/24 12:46 Results Reviewed Results Reviewed: Laboratory Last Values Hgb A1c (Clinic) 13.4 % (4.0-6.0) H 11/01/24 12:31 Coding Level of Care Code Est Pt Level 4 (75518) Diagnoses Uncontrolled type 2 diabetes mellitus with hyperglycemia E11.65 Diabetes mellitus type: type 2 Pure hypercholesterolemia E78.00 Moderate persistent asthma, unspecified whether complicated J45.40 Asthma complication type: unspecified Asthma persistence: persistent Asthma severity: moderate Tracheostomy present Z93.0 Small bowel obstruction K56.609 Degeneration of intervertebral disc of lumbar region with discogenic back pain M51.360 Disc-related pain type: discogenic back pain only Pain of toe of left foot M79.675 Insomnia, unspecified type G47.00 Insomnia type: unspecified Anxiety F41.9 Bipolar depression F31.9 Obesity (BMI 30-39.9) E66.9 Additional Codes AILYN-7 Assessment Billing - AILYN-7 Assessment Tool: AILYN-7 Assessment 22232 ([id number]) PHQ-9 - 94764 - PHQ-9 Billing: Yes ([id number]) Assessment & Plan Assessment & Plan (1) Uncontrolled diabetes mellitus with hyperglycemia: Code(s): E11.65 - Type 2 diabetes mellitus with hyperglycemia Category: Medical Qualifiers: Diabetes mellitus type: type 2 Qualified Code(s): E11.65 - Type 2 diabetes mellitus with hyperglycemia Plan: Her in-office HgbA1c today is at 13.4% (was at 12.7% a few months ago) - goal is at least <7.0% Will have patient continue for now on all of her current Rx, including Lantus 20 units Q HS, Insulin Lispro 2 to 20 units TID with meals per sliding scale, Metformin 1000 mg BID and Glipizide 5 mg QD She was advised to go and get labs done after her last visit but she is now claiming that she did go and was advised that there were no orders in her chart, which I find surprising as they were ordered during her last visit and they are currently still in her chart at present It is likely that patient never did go for her labs at all Have advised patient her labs are now updated and she is to go and get them done immediately following her visit today I will also go ahead and refer her to endocrinology for further evaluation and management of her diabetes - I suspect that her poor control is likely due to poor compliance with her diet Patient states that she has never seen podiatry in the past - will go ahead and refer her to Podiatry as well for her diabetic foot exam She is currently seeing Ophthalmology at [facility] for her eye exams (2) Pure hypercholesterolemia: Code(s): E78.00 - Pure hypercholesterolemia, unspecified Category: Medical Plan: Reinforced low cholesterol diet Continue Atorvastatin 20 mg QD Will have patient recheck her fasting lipids ZAHIRA for follow-up (3) Asthma: Code(s): J45.909 - Unspecified asthma, uncomplicated Category: Medical Qualifiers: Asthma complication type: unspecified Asthma persistence: persistent Asthma severity: moderate Qualified Code(s): J45.40 - Moderate persistent asthma, uncomplicated Plan: Continue Dulera 200-5 mcg 2 inhalations BID and Albuterol HFA 1 to 2 inhalations Q 6 hours PRN Follow up with pulmonary as scheduled (4) Tracheostomy present: Code(s): Z93.0 - Tracheostomy status Category: Medical Plan: Follow up with [facility] as scheduled for continuing/routine tracheostomy care and change (5) Small bowel obstruction: Code(s): K56.609 - Unspecified intestinal obstruction, unspecified as to partial versus complete obstruction Category: Medical Plan: Resolved Patient was admitted to [facility] for this back in August 2024 but symptoms improved with medical management (6) Lumbar degenerative disc disease: Code(s): M51.369 - Other intervertebral disc degeneration, lumbar region without mention of lumbar back pain or lower extremity pain Category: Medical Qualifiers: Disc-related pain type: discogenic back pain only Qualified Code(s): M51.360 - Other intervertebral disc degeneration, lumbar region with discogenic back pain only Plan: Reinforced activity and weightlifting restrictions She was taking Gabapentin 300 mg BID and per request, will increase her Gabapentin now to 300 mg TID (7) Pain of toe of left foot: Code(s): M79.675 - Pain in left toe(s) Category: Medical Plan: Will send patient for x-rays of the left foot/1st toe for further evaluation (8) Insomnia: Code(s): G47.00 - Insomnia, unspecified Category: Medical Qualifiers: Insomnia type: unspecified Qualified Code(s): G47.00 - Insomnia, unspecified Plan: Sleep hygiene reinforced Continue Trazodone 150 mg Q HS PRN (9) Anxiety: Code(s): F41.9 - Anxiety disorder, unspecified Category: Medical Plan: Continue Escitalpram 20 mg QD and Clonazepam 1 mg BID PRN Patient is currently requesting for me to take over clonazepam prescription she states that her current psychiatric prescriber is planning to wean her off clonazepam and she does not agree with this I have advised patient I am not willing to take over her prescription and have explained to her that if her psychiatrist is trying to wean her off, then they would have a valid reason to do so and I would of course not do anything to contradict this, especially since I do not specialize in Psychiatry I have advised her to continue following up with her psychiatrist for her anxiety and mood disorder issues (10) Bipolar depression: Code(s): F31.9 - Bipolar disorder, unspecified Category: Medical Plan: Continue Escitalopram 20 mg QD, Gabapentin 300 mg BID, Oxcarbazepine 300 mg BID and Lurasidone 60 mg Q HS Follow up with psychiatry as scheduled (11) Obesity (BMI 30-39.9): Code(s): E66.9 - Obesity, unspecified Category: Medical Plan: Reinforced diet; exercise and weight loss are not practical in this patient with her multiple comorbidities and physical issues Patient has inquired about possibly being started on a GLP-1 to help her lose weight Have advised her that with her history of necrotizing pancreatitis and multiple abdominal surgeries, she is not a candidate for any of the GLP-1 injections and these are absolutely contraindicated in her case Plan Follow-up in 3 months Orders: Orders AMB Hemoglobin A1c 11/01/24 E11.9 - Type 2 diabetes mellitus without complications XR toe LT min 2V 11/01/24 M79.675 - Pain in left toe(s) Referrals Endocrinology Referral E11.65 - Type 2 diabetes mellitus with hyperglycemia Podiatry Referral E11.65 - Type 2 diabetes mellitus with hyperglycemia Medications: Changed From gabapentin 300 mg PO BID 30 days 60 caps 1RF To gabapentin 300 mg PO TID 90 caps 1RF 30 days
[2024-11-01 12:34] VITALS: BP 118/68; PULSE 98; O2SAT 94; BMI 38.8
== END 2024-11-01 13:09 | disposition home or self-care (01) ==
LOC: HO.HMCH 12:12
PROVIDERS: PCP Internal Medicine; Visit Provider Internal Medicine
DX: E11.9 Type 2 diabetes mellitus without complications (principal)

== ENCOUNTER → 2024-11-01 12:10 | Outpatient (BNVA) | payer OTHER, SELFPAY | PROVIDERS: PCP Internal Medicine; Visit Provider Internal Medicine | DX: E11.65 Type 2 diabetes mellitus with hyperglycemia (principal); E78.5 Hyperlipidemia, unspecified; F31.9 Bipolar disorder, unspecified; E78.00 Pure hypercholesterolemia, unspecified; J45.40 Moderate persistent asthma, uncomplicated; K56.609 Unspecified intestinal obstruction, unspecified as to partial versus complete obstruction; M51.360 Other intervertebral disc degeneration, lumbar region with discogenic back pain only; M79.675 Pain in left toe(s); G47.00 Insomnia, unspecified; F41.9 Anxiety disorder, unspecified; E66.9 Obesity, unspecified; Z68.38 Body mass index [BMI] 38.0-38.9, adult; Z93.0 Tracheostomy status | CPT/HCPCS: 83036; 96127; 99212 ==

== ENCOUNTER 2024-11-06 19:51 | Emergency (ER) | payer OTHER, SELFPAY ==
--- NOTE | ~2024-11-06 | XR_ITS ---
CLINICAL HISTORY: dyspnnea 1 view chest Comparison: CR - XR CHEST 1V - 08/22/24 23:06 EDT Findings: Low inspiration. Resultant mild vascular crowding centrally with subsegmental atelectasis. Tracheostomy in place. No consolidation or effusion. Heart size enlarged. No acute fractures. Impression: 1. Low inspiration with central vascular crowding and subsegmental atelectasis. This document has been electronically signed by: Robert Villatoro MD on 11/06/2024 23:09:18
[2024-11-06 19:58] VITALS: BP 154/87; BP 180/110; PULSE 100; PULSE 102; RESP 18; TEMP 37.2; O2SAT 96; O2SAT 97; BMI 38.4
--- NOTE | 2024-11-06 20:02 | PC.NURSE ---
RT notified and at bedside. pt has trach covered with sterile guaze, resp even and unlabored.
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
--- NOTE | 2024-11-06 20:15 | PC.NURSE ---
RT stated with trach re-insertion pt has become anxious and stated she is due for her klonopin dose. Donavan FRANZ aware and ordered meds per may.
--- OUTSIDE RECORDS SUMMARY | 2024-11-06 20:23 | XMS_ITS | Patient Health Record ---
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 Name Role Phone Angie Wing Primary Care Provider Unavailab Aleksey King Unavailable [phone] Viraj Copeland Unavailable Unavailable Allergies Allergen (clinical drug ingredient) Drug/Non Drug Allergy documented on EMR Reaction Allergy Type Onset Date Status seasonal allergies (uncoded) Unknown Allergy Active Reason For Referral No Information Medications Medication SIG (Take, Route, Frequency, Duration) Notes Start Date End Date Status hydroCHLOROthiazide Active ibuprofen prn Active Naproxen prn Active Methadone HCl 85 mg 1 tablet Orally Once a day Active Benadryl prn Active Zanaflex prn Active Pantoprazole Sodium 40 MG 1 tablet Orally BID Active Fluticasone-Salmeterol Active Albuterol Active Fluticasone Propionate HFA Active Problems Problem Type SNOMED Code ICD Code Onset Dates Problem Status W/U Status Risk Notes Problem [id number] Gastroesophageal reflux disease without esophagitis (K21.9) Active confirmed Problem 88902239 Pharyngoesophage al dysphagia (R13.14) Active confirmed Plan Of Treatment Future Test Test Name Order Date UPPER GI ENDOSCOPY [place] DILATION OF ESOPH 02/27/2015 Insurance Providers Payer Name Payer Address Payer Phone Subscriber Number Group Number Insured Name Patient Relationship to Insured Coverage Start Date Coverage End Date [facility] [employer] [facility] [address] [address] [place], [place] [id number] SAKSHI BUSH Self - patient is the insured MEDICAID OF [facility] [address] [place] [phone] [id number] RACHELLE SAKSHI Self - patient is the insured Medical (General) History Medical History History ICD Code GERD hypertension asthma depression/bipolar Denies IA,DM,CVA,renal disease Back pain Surgical History Surgery Date(Month/Year) spinal fusion tonsillectomy and adenoidectomy appendectomy
--- OUTSIDE RECORDS SUMMARY | 2024-11-06 20:23 | XMS_ITS ---
Author Name [facility] Organization Unknown Care Team Organization Name Specialty Phone Email Start Date End Da te [facility] Megan Mosqu[facility] 05/19/2022 10/31/2023 [facility] Meli Sam [facility] 01/19/20222023
--- OUTSIDE RECORDS SUMMARY | 2024-11-06 20:23 | XMS_ITS | Clinical Summary ---
Author Organization [facility] [address] [place] [address] [place] [address] [place] Phone Care Team Providers Care Frame Aligner Name Role Phone Megan Anderson MD Primary [...] day. 180 each 1 02/02/20 24 Active promethazine (PHENERGAN) 25 mg tablet Take [...] MD 15 mL 1 06/12/19 25 Active famotidine (PEPCID) 20 mg tablet TAKE 1 TABLET BY MOUTH TWICE A DAY 180 tablet 1 08/02/19 25 Active Ventolin HFA 90 mcg/actuation inhalerIndicatio ns:Moderate persistent asthma without complication INHALE 2 PUFFS BY MOUTH EVERY 6 (SIX) HOURS IF NEEDED FOR WHEEZING. COUGH 18 each 09/18/19 25 Active atorvastatin (LIPITOR) 20 mg tablet TAKE 1 TABLET BY MOUTH EVERY DAY 90 tablet 10/16/19 25 Active fluticasone propionate (FLONASE) 50 mcg/actuation nasal spray SPRAY 1 SPRAY INTO EACH NOSTRIL 1 TIME EACH DAY 48 mL 10/16/19 25 Active atorvastatin (LIPITOR) 20 mg tablet TAKE 1 TABLET BY MOUTH EVERY DAY 90 tablet 1 04/10/19 25 025 Discontinued fluticasone propionate (FLONASE) 50 mcg/actuation nasal spray ADMINISTER 1 SPRAY INTO EACH NOSTRIL 1 TIME EACH DAY. 32 mL 07/11/19 25 025 Discontinued Active Problems Problem Noted [...] 08/05/2021 DVT of deep femoral vein, right ([facility] V24, [facility] V28) 05/28/2021 Assessment & Plan (02/02/2024 12:11 [...] complication, without long-term current use of insulin ([facility] V24, [facility] V28) 01/20/2018 Assessment & Plan (02/02/2024 12:11 [...] 4 months. Narcotic dependence, in vasu ssion ([facility] V24, [facility] V28) 11/02/2011 Overview (01/11/2024): On methadone Bilateral [...] needed for wheezing. cough Depressive disorder 05/12/2005 Immunizations Name Administration Dates Next Due Influenza Quadravalent, MDCK , 0.5ml, preservative free (Flucelvax) 6mo and older 12/03/2021,01/06/2018 Influenza Quadravalent, MDCK , 0.5ml, with preservative (Flucelvax) 6mo and older 12/26/2016 Influenza trivalent, 0.5mL, preservative free (Fluarix; FluLaval; Fluzone) ages 6mo and older (Afluria) 3 years and older 01/28/2016,12/18/2014,12/16/2013,2012,12/09/2011,12/13/2008 Influenza trivalent, with preservative (Fluzone; Afluria) 6mo and older 11/26/2019,11/13/2019,11/04/2018 PPD Test 08/30/2018 [employer] SARS-CoV-2 COVID-19, mRNA, LNP-S, preservative free 04/20/2020,04/03/2020 Td Tetanus diptheria (Tdvax) 7yo and older 04/14/2006 Tdap Tetanus diptheria acell ular pertussis (Boostrix; Adacel) 7yo and older 01/06/2018 Surgical History Surgery Date Site/Laterality Comments OTHER SURGICAL HISTORY PROCEDURE: OR ARTHRODESIS POSTERIOR SPINAL DFRM <6 VRT SGM UPPER GASTROINTESTINAL ENDOSCOPY 05/04/2019 PROCEDURE: OR UPPER GI ENDOSCOPY PERFORMED; COMMENT: Visually normal on treatment with famotidine 40 mg every morning. CYSTOSCOPY 06/2021 PROCEDURE: OR CYSTOURETHROSCOPY; COMMENT: Cystoscopy and stent placement for [...] essential hypertension PEA (Pulseless electrical ac tivity) ([facility] V24, CMS/HCC V28) 11/06/2020 DX:PEA (Pulseless electrica l activity) ([facility]); COMMENT: Found at home PEA and apneic [facility] admit 11/01/20 Pulmonary embolism (CMS/HCC V24, CMS/HCC V28) 05/28/2021 DX:Pulmonary embolism ([facility]) 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 DX:Necr otizing pancreatitis; COMMENT: [...] Care Team (Late st Contact Info) Description 11/08/2024 11:15 AM EDT Office Visit Adult Medicine [address] [phone] Megan Anderson MD [address] [place] [id number] Health Maintenance Due Date Last Done Comments Breast Cancer Screening 1970 Diabetes: Annual Foot Exam 11/19/1979 Hepatitis A Vaccines (1 of 2 - Risk 2-dose series) 1988 Hepatitis B Vaccines (1 of 3 - 19+ 3-dose series) 1988 Pneumococcal Vaccine: 50+ Years (1 of 2 - PCV) 1988 Zoster Vaccines (1 of 2) 11/19/2019 Colorectal Cancer Screening: Colonoscopy 02/20/2022 HIV Screening 02/20/2022 Social Influencers of Health Screening 02/20/2022 Diabetes: Annual Urine Albumin-Creatinine Ratio (uACR) 02/21/2022 12/11/2004 Diabetes: Blood Sugar Control Test (HGBA1C) 01/05/2023 07/06/2022 COVID-19 Vaccine ( season) 2023 08/08/2020, 07/14/2020, 04/20/2020, Additional history exists Depression Screening 03/14/2024 07/13/2023 Diabetes: Annual GFR (Glomerular Filtration Rate) 09/22/2024 09/23/2023, 09/23/2023 Hypertension/CHF/CAD Annual BMP Blood Test 09/22/2024 09/23/2023, 09/23/2023 Influenza Vaccine (#1) 2024 , 12/03/2021, 11/26/2019, Additional history exists Diabetes: Annual [...] Region Laterality Modality Ultrasound Provider Radha Onbase [facility] US PROCEDURES Final Result * Annual BMP Blood Test (09/23/2023) Pathologist [facility] Annual BMP Blood Test abstracted Result [facility] Provider HEALTH MAINTENANCE Final Result * (ABNORMAL) Lipid panel (09/23/2023) [facility] LDL/HDL Ratio 5(A) 0 - 4 Triglycerides 418(A) 0 - 150 mg/dL Cholesterol 149 0 - 200 mg/dL HDL 33(A) >=40 mg/dL LDL Cholesterol 33 0 - 100 mg/dL Blood Venous blood specimen / Unknown Result [facility] Provider LAB BLOOD ORDERABLES Laila l Result * Depression Screening (07/13/2023) [facility] Depression Screening abstracted Result [facility] Provider HEALTH MAINTENANCE Final Result * (ABNORMAL) Hemoglobin A1c (07/06/2022) [facility] Hemoglobin A1C 9.7(A) <=6.5 % Blood Venous blood specimen / Unknown Result [facility] Provider LAB BLOOD ORDERABLES Laila l Result * Cervical Cancer Screening: HPV (06/17/2022) [facility] Cervical Cancer Screening: HPV negative, abstracted Historical Provider HEALTH MAINTENANCE Final Result * Hepatitis C Screening (11/14/2008) Hepatitis C Screening abstracted Historical Provider HEALTH MAINTENANCE Final Result * Urine Albumin Creatinine Ratio (12/11/2004) Urine Albumin Creatinine Ratio abstracted Historical Provider HEALTH MAINTENANCE Final Result from Last 3 Months or Most Recently Relevant to Health Maintenance Insurance [employer] Care Teams Frame Aligner Relationship Specialty Start Date End Date Megan Anderson MD [address] [place] [id number] PCP - General Internal Medicine 10/12/21
--- OUTSIDE RECORDS SUMMARY | 2024-11-06 20:23 | XMS_ITS | Clinical Summary ---
Author Organization [facility] Address [address] [facility] [address] [place] [address] Phone Care Team Providers Care Business Center Attendant Name Role Phone Unavailable Primary Care Provider [...] of 1 - PCV) 020 Influenza Vaccine (#1) 2024 Insurance [facility] Medicaid [facility] Medicaid
--- NOTE | 2024-11-06 21:20 | ECG_ITS ---
Test Reason : DYSPNEA Blood Pressure : */* mmHG Vent. Rate : 83 BPM Atrial Rate : 83 BPM P-R Int : 166 ms QRS Dur : 80 ms QT Int : 368 ms P-R-T Axes : 35 -10 33 degrees QTcB Int : 432 ms Normal sinus rhythm Cannot rule out Anterior infarct (cited on or before 31-May-2024) ; could be related to body habitus and lead placement Abnormal ECG When compared with ECG of 22-Aug-2024 23:13, No significant change was found Referred By: Laura Zurita Electronically Signed By: DENIS GAMBINO
[2024-11-06 21:37] LABS: MANUAL DIFF FLAG NO
[2024-11-06 21:39] LABS: Hematocrit 38.3 % (37.0-47.0); Hemoglobin 12.7 g/dl (12.0-16.0); Imm Gran Abs Auto 0.04 X10*3/uL (0.00-0.03); Imm Gran Pct Auto 0.4 % (0.0-0.4); Lymphocytes Absolute Auto 1.3 X10*3/uL (1.2-4.9); Mean Corpuscular HGB Conc 33.2 g/dl (31.0-35.0); Mean Corpuscular Hemoglobin 27.5 pg (27.0-33.0); Mean Corpuscular Volume 83.1 fL (80.0-98.0); NRBC Abs Auto 0.000 X10*3/uL (0.0-0.012); NRBC Pct Auto 0.0 /100WBC (0.0-0.2); Platelet Count 318 X10*3/uL (160-400); Red Blood Count 4.61 X10*6/uL (4.20-5.50); White Blood Count 9.4 X10*3/uL (4.8-10.8)
[2024-11-06] MEDS: diazePAM 10 MG/2 ML CARTRIDGE 5 MG IVPUSH (21:40)
[2024-11-06 21:59] LABS: Alanine Aminotransferase 30 U/L (0-31); Albumin Level 3.8 g/dL (3.5-5.0); Alkaline Phosphatase 243 U/L (39-117); Anion Gap 16 (12-20); Aspartate Amino Transferase 35 U/L (5-31); Blood Urea Nitrogen 14 mg/dL (9-16); Calcium 9.0 mg/dL (8.4-10.2); Carbon Dioxide 30 mmol/L (22-29); Chloride 97 mmol/L (96-108); Creatinine Clr Calc Pharmacy 60.7; Estimated Glomerular Filt Rate 50; Magnesium 1.6 mg/dL (1.6-2.6); Potassium 4.7 mmol/L (3.3-5.1); Sodium 138 mmol/L (135-145); Total Protein 7.0 g/dL (6.5-8.0)
[2024-11-06 22:07] LABS: Troponin-I High Sensitivity < 2.7 ng/L (<3.5-17.0)
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
[2024-11-06] MEDS: Magnesium Sulfate/H2O 2 GM/50 ML PIGGYBACK IV (22:54)
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
[2024-11-06] MEDS: Lidocaine 4 % Patch ADH..PATCH 1 PATCH TRANSDERMA (23:20)
[2024-11-07] VITALS: BP 161/78; PULSE 92; RESP 24; TEMP 37.3; O2SAT 95
[2024-11-07 00:20] VITALS: BP 161/78; PULSE 92; RESP 18; TEMP 37.3; O2SAT 96
== END 2024-11-07 00:21 | disposition home or self-care (01) ==
PROVIDERS: Emergency Provider Emergency Medicine
DX: Z43.0 Encounter for attention to tracheostomy (principal); R06.00 Dyspnea, unspecified; E11.9 Type 2 diabetes mellitus without complications; J45.909 Unspecified asthma, uncomplicated; M51.369 Other intervertebral disc degeneration, lumbar region without mention of lumbar back pain or lower extremity pain; Z79.899 Other long term (current) drug therapy; Z87.19 Personal history of other diseases of the digestive system
CPT/HCPCS: 36415; 71045; 80053; 83735; 84484; 85025; 93005; 96365; 96375; 99284; J0131; J2919; J3360; J3475

== ENCOUNTER → 2024-11-06 21:20 | Outpatient (BNV) | payer OTHER, SELFPAY | PROVIDERS: Emergency Provider Emergency Medicine; Visit Provider Internal Medicine | DX: R94.31 Abnormal electrocardiogram [ECG] [EKG] (principal); R06.00 Dyspnea, unspecified | CPT/HCPCS: 93010 ==

== ENCOUNTER → 2024-11-06 21:20 | Outpatient (BNV) | payer OTHER, SELFPAY | PROVIDERS: Emergency Provider Emergency Medicine; Visit Provider Radiology Diagnostic Radiology | DX: J98.11 Atelectasis (principal) | CPT/HCPCS: 71045 ==

== ENCOUNTER 2024-11-25 19:54 | Inpatient (IN) | payer OTHER, SELFPAY ==
--- NOTE | ~2024-11-25 | CT_ITS ---
CLINICAL HISTORY: sob CT angiography chest with contrast. MIP postprocessing. Comparison: CR - XR CHEST 1V - 11/25/24 20:[address]/SR - CT ABDOMEN PELVIS W IV CON - 08/28/24 05:37 EDT Findings: There is appropriate contrast opacification of the main, lobar, and segmental pulmonary arteries. No filling defects identified to suggest pulmonary embolism. Thoracic aorta is nonaneurysmal. Borderline garcia chamber cardiac dilation. Tracheostomy tube is in place within the mid trachea. No pathologically enlarged mediastinal, hilar, or axillary lymph nodes identified. Mild air-filled distention of the mid to distal esophagus with concentric wall thickening of the mid to distal esophagus. Trace bilateral pleural effusions. Areas of dependent streaky density in the lower lobes bilaterally suggests atelectasis. No large area of consolidation seen. No pneumothorax. Low-attenuation throughout the liver is indicative of fatty infiltration. Large ventral hernia within the upper abdomen is again seen with diastasis of the rectus abdominis muscle measuring 16 cm. There are portions of the anterior left lobe of the liver in the stomach herniated into this defect. No free fluid or free air within the upper abdomen. No acute bony abnormality. IMPRESSION: 1. No pulmonary emboli. 2. Trace bilateral pleural effusions with likely atelectasis within the lower lobes bilaterally. 3. Large ventral hernia within the upper abdomen. This document has been electronically signed by: Saulo Laguna MD on 11/25/2024 23:39:18
--- NOTE | ~2024-11-25 | XR_ITS ---
CLINICAL HISTORY: sob 1 view chest x-ray Comparison: CR - XR CHEST 1V - 11/06/24 22:40 EDT Findings: Mild left lower lobe atelectasis. No pneumothorax. Small right effusion. Midline tracheostomy Similar prominent/enlarged cardiac silhouette. No acute fracture. IMPRESSION: 1. Mild left lower lobe atelectasis. 2. Small right effusion. This document has been electronically signed by: Isidro Ruff MD on 11/25/2024 21:18:09
[2024-11-25 19:57] VITALS: BP 152/83; BP 154/70; PULSE 89; RESP 19; TEMP 37.1; O2SAT 95; O2SAT 98; BMI 39.6
--- NOTE | 2024-11-25 20:06 | ED.SOB ---
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 pulmonary embolism ( not on blood thinners ), hyperlipidemia, hypertension, and morbid obesity who presented with acute shortness of breath Related Data Home Medications ?Medication ?Instructions ?Recorded ?Confirmed clonazepam 1 mg tablet 1 mg PO BID PRN Anxiety 02/02/23 11/01/24 escitalopram oxalate 20 mg tablet 20 mg PO BEDTIME 02/02/23 11/01/24 famotidine 20 mg tablet 20 mg PO BID 02/02/23 11/01/24 fluticasone propionate 50 1 spray intranasal DAILY PRN 02/02/23 11/01/24 mcg/actuation nasal Allergy Symptoms spray,suspension metformin 500 mg tablet,extended 1,000 mg PO BID 02/02/23 11/01/24 release 24 hr oxcarbazepine 300 mg tablet 300 mg PO BID 02/02/23 11/01/24 trazodone 150 mg tablet 150 mg PO BEDTIME PRN Sleep 02/02/23 11/01/24 atorvastatin 20 mg tablet 20 mg PO DAILY 05/31/24 11/01/24 mometasone-formoterol HFA 200 2 puff inhalation BID 05/31/24 11/01/24 mcg-5 mcg/actuation aerosol inhaler (Dulera) insulin glargine 100 unit/mL (3 20 unit subcut BEDTIME 08/11/24 11/01/24 mL) subcutaneous pen (Lantus Solostar U-100 Insulin) lurasidone 80 mg tablet 80 mg PO BEDTIME 08/11/24 11/01/24 Previous Rx's ?Medication ?Instructions ?Recorded blood sugar diagnostic (FreeStyle #100 ea 07/10/24 Lite Strips) blood-glucose meter (FreeStyle #1 ea 07/10/24 Lite Meter kit) lancets 28 gauge (FreeStyle #100 ea 07/10/24 Lancets) cetirizine 10 mg tablet (Allergy 10 mg PO DAILY PRN allergy 07/24/24 Relief (cetirizine)) symptoms #30 tabs insulin lispro 100 unit/mL 1 sliding scale dose subcut TIDAC 08/21/24 subcutaneous pen 30 days #15 mL promethazine 25 mg tablet 25 mg PO DAILY PRN nausea #30 tabs 08/25/24 albuterol sulfate 90 mcg/actuation 2 puff inhalation Q4H PRN wheezing 10/26/24 aerosol inhaler (Ventolin HFA) #8.5 grams gabapentin 300 mg capsule 300 mg PO TID 30 days #90 caps 11/01/24 prednisone 50 mg tablet 50 mg PO DAILY 5 days #5 tabs 11/07/24 ibuprofen 800 mg tablet 800 mg PO Q8H PRN pain #90 tabs 11/08/24 Allergies Allergy/AdvReac Type Severity Reaction Status Date / Time pantoprazole Allergy Mild Redness of Verified 11/25/24 20:05 Skin Review of Systems Review of Systems: Positive shortness of breath positive generalized malaise positive weakness PMFSH Past Medical History Attestation statement: The following information was validated with the patient. Medical History Lumbar degenerative disc disease Small bowel obstruction Uncontrolled diabetes mellitus with hyperglycemia Obesity (BMI 30-39.9) Bipolar depression Anxiety Insomnia Tracheostomy present Pure hypercholesterolemia Diabetes mellitus Asymptomatic bacteriuria Morbid obesity Partial small bowel obstruction Tracheostomy dependent History of cardiac arrest Wound drainage Takotsubo cardiomyopathy Kidney stones UTI (urinary tract infection) Bipolar 1 disorder Asthma Substance abuse Surgical History History of tracheostomy S/P ureteral stent placement H/O exploratory laparotomy S/P cholecystectomy Family History Family History Mother No pertinent family history Father No pertinent family history Social History Social History Household Members: Spouse Household Members Other:: 1 Housing: Apartment Do you presently have visiting nurse or other home services: No Alcohol intake: former Comment: stayed in ed Patient Tobacco Use Status: Never used Tobacco Smoked in Last 30 Days: No e-Cigarette/Vaping Use: Never Used Second Hand Smoke Exposure: No Use of substances other than those prescribed or required for medical reasons: No Advance Directives: Yes Advance Directives on File: Yes Advance Directives Date on File: 02/04/23 Do you have a plan to hurt others: No Plan Nutrition Risks: No Nutritional Risk Patient : No service: No Current occupational status: disabled Cognitive needs: No Hearing needs: No Vision needs: Yes Physical Exam Exam: Exam: Appearance: Alert. Oriented X3. No acute distress. Eyes: Pupils equal, round and reactive to light. ENT: Pharynx normal. Neck: Normal inspection. Neck supple. No lymph nodes noted. No crepitus CVS: Normal heart rate and rhythm. Pulses normal. Normal S1 and S2 Respiratory: Slightly short of breath. Diminished breath sounds bilaterally. Positive expiratory wheezing noted bilaterally Abdomen: Soft and nontender. No rigidity. No distention. good BS x4 Skin: Skin warm and dry. Normal skin color. Normal skin turgor. Extremities: No lower extremity edema. Neurovascular intact to all extremities. No Lacerations. No Rash Neuro: Oriented X 3. No motor deficit. No sensory deficit. Moving all extermities. No slurred speech Vital Signs: Vital Signs: Last Vital Signs Temp 98.1 F 11/25/24 22:41 Pulse 91 11/25/24 22:41 Resp 16 11/25/24 22:41 BP 142/73 H 11/25/24 22:41 Pulse Ox 95 11/25/24 22:41 O2 Del Method Nasal Cannula 11/25/24 22:41 O2 Flow Rate 2 11/25/24 22:41 Oxygen Flow Rate 2 11/25/24 19:57 BMI result Body Mass Index 39.6 Medications Administered Generic Name Dose Route Start Last Admin Trade Name Kerwinq PRN Reason Stop Dose Admin Acetaminophen 650 mg 11/25/24 21:42 11/25/24 23:28 Acetaminophen 325 Mg Tablet PO 650 mg Q6H PRN Administration Pain, Mild 1-3,fever,headache Azithromycin 500 mg 11/25/24 22:00 11/25/24 22:42 Azithromycin 500 Mg Tablet PO 500 mg Q24H RILEY Administration Enoxaparin Sodium 40 mg 11/25/24 21:45 11/25/24 22:24 Enoxaparin Sodium 40 Mg/0.4 Ml Syringe SUBCUT Not Given Q24H RILEY Escitalopram Oxalate 20 mg 11/25/24 21:50 11/25/24 22:42 Escitalopram Oxalate 20 Mg Tablet PO 20 mg BEDTIME RILEY Administration Hydromorphone HCl 0.5 mg 11/25/24 22:33 11/25/24 23:28 Hydromorphone Hcl 0.5 Mg/0.5 Ml Syringe IVPUSH 0.5 mg Q4H PRN Administration Breakthrough Pain Protocol Insulin Glargine 10 unit 11/25/24 21:50 11/25/24 22:42 Insulin Glargine,Hum.Rec.Anlog 100 Unit/Ml 10 Ml Vial SUBCUT 10 unit BEDTIME RILEY Administration Lurasidone HCl 80 mg 11/25/24 21:50 11/25/24 22:42 Lurasidone Hcl 80 Mg Tablet PO 80 mg BEDTIME RILEY Administration Oxcarbazepine 300 mg 11/25/24 21:50 11/25/24 22:42 Oxcarbazepine 300 Mg Tablet PO 300 mg BID RILEY Administration Discontinued Medications Generic Name Dose Route Start Last Admin Trade Name Freq PRN Reason Stop Dose Admin Albuterol Sulfate 2.5 mg 11/25/24 20:11 11/25/24 20:22 Albuterol Sulfate (0.083%) 2.5 Mg/3 Ml Vial.Neb INHALE 11/25/24 20:12 2.5 mg ONCE ONE Administration Albuterol/Ipratropium 3 ml 11/25/24 20:11 11/25/24 20:19 Albuterol/Iprat 2.5/0.5mg 3 Ml Ampul.Neb INHALE 11/25/24 20:12 3 ml ONCE ONE Administration Hydromorphone HCl 0.5 mg 11/25/24 20:22 11/25/24 21:00 Hydromorphone Hcl 0.5 Mg/0.5 Ml Syringe IVPUSH 11/25/24 20:23 0.5 mg ONCE ONE Administration Protocol Magnesium Sulfate 2 gm in 50 mls @ 50 mls/hr 11/25/24 20:11 11/25/24 21:34 Magnesium Sulfate/H2o IV 11/25/24 21:10 Infused ONCE ONE Infusion Sodium Chloride 1,000 mls @ 999 mls/hr 11/25/24 21:30 11/25/24 23:43 Ns IV 11/25/24 22:30 Infused .Q1H1M RILEY Infusion Sodium Chloride 1,000 mls @ 999 mls/hr 11/25/24 21:30 11/25/24 23:43 Ns IV 11/25/24 22:30 Infused .Q1H1M RILEY Infusion Cefepime HCl 2 gm in 50 mls @ 100 mls/hr 11/25/24 21:24 11/25/24 22:16 Maxipime IV 11/25/24 21:53 Infused ONCE ONE Infusion Insulin Human Regular 5 unit 11/25/24 20:10 11/25/24 20:19 Insulin Regular, Human 100 Unit/Ml 10 Ml Vial IVPUSH 11/25/24 20:11 5 unit ONCE ONE Administration Iohexol 65 ml 11/25/24 22:21 11/25/24 22:22 Iohexol 350 Mg/Ml 100 Ml Infus..Btl IV 11/25/24 22:22 65 ml ONCE ONE Administration Methylprednisolone Sodium Succinate 125 mg 11/25/24 20:11 11/25/24 20:19 Methylprednisolone Sod Succ 125 Mg/2 Ml Vial IVPUSH 11/25/24 20:12 125 mg ONCE ONE Administration Medical Decision Making Medical Decision Making MDM Narrative: We gave a treatment with moderate success. Steroid was given. Patient had diffuse wheezing diminished breath sounds bilaterally. My interpretation of patient's VBG showed no CO2 retention. Patient's sugar is 450 but her electrolytes showed no evidence of DKA a dose of insulin was given patient's lactate is 2.5 with coughing upper respiratory symptoms shortness of breath cultures are obtained antibiotic was started. Patient was admitted to the hospital a few months ago. A dose of cefepime was given as patient previously was on chronic steroid. Patient's BNP is normal there is no evidence for congestive heart failure patient's troponin is less than 2.7 not consistent with ACS. Her EKG showed a sinus rhythm heart rate is 80 CA QRS QTC normal no acute ST segment elevation not changed from previous. Patient's history not consistent with ACS. Patient's lactate slightly elevated at 2.5. This could be secondary to neb treatment. Nevertheless 2 L of fluid was given. Repeat focal exam for sepsis was done. Grossly patient appears improved. Patient's antibiotic was given. Patient's CTA was negative. There is no evidence for PE no large infiltrate noted on the CTA. No evidence for pneumothorax. No evidence for fracture. Patient to be admitted. Differential Diagnosis Differential Diagnoses: The differential diagnosis associated with the presentation includes COPD, pneumonia, congestive heart failure, ACS Admission/Observation Consideration of admission/observation: Escalation of care including admission/observation considered Will require admission Consult Healthcare Provider Management of the patient was discussed with: Hospitalist Lab Data MDM Lab Attestation statement: I reviewed the patient's lab results. 11/25/24 20:45 11/25/24 20:45 Labs: Lab Results 11/25/24 11/25/24 11/25/24 Range/Units 20:01 20:45 20:46 WBC 7.9 (4.8-10.8) X10*3/uL RBC 4.38 (4.20-5.50) X10*6/uL Hgb 12.3 (12.0-16.0) g/dl Hct 37.2 (37.0-47.0) % MCV 84.9 (80.0-98.0) fL MCH 28.1 (27.0-33.0) pg MCHC 33.1 (31.0-35.0) g/dl RDW 12.8 (11.0-16.0) % Plt Count 250 (160-400) X10*3/uL MPV 9.9 (9.4-12.3) fL Immature Gran % (Auto) 0.1 (0.0-0.4) % Neut % (Auto) 59.1 (45-73) % Lymph % (Auto) 30.6 (20-40) % Grainger % (Auto) 5.6 (2-11) % Eos % (Auto) 4.3 H (0-4) % Baso % (Auto) 0.3 (0-2) % Lymph # (Auto) 2.4 (1.2-4.9) X10*3/uL Grainger # (Auto) 0.4 (0.1-1.2) X10*3/uL Eos # (Auto) 0.3 (0.0-0.4) X10*3/uL Baso # (Auto) 0.0 (0.0-0.2) X10*3/uL Abs Immat Gran (auto) 0.01 (0.00-0.03) X10*3/uL Absolute Neuts (auto) 4.7 (2.0-8.3) x10*3/uL Absolute Nucleated RBC 0.000 (0.0-0.012) X10*3/uL Nucleated RBC % (auto) 0.0 (0.0-0.2) /100WBC VBG pH (7.32-7.43) VBG pCO2 mmHg VBG pO2 mmHg VBG HCO3 (22-26) mmol/L VBG O2 Saturation % VBG Base Excess mmol/L Sodium 136 (135-145) mmol/L Potassium 3.9 (3.3-5.1) mmol/L Chloride 94 L (96-108) mmol/L Carbon Dioxide 31 H (22-29) mmol/L Anion Gap 15 (12-20) BUN 13 (9-16) mg/dL Creatinine 1.04 (0.5-1.4) mg/dL Estim Creat Clear Calc 69.4 Estimated GFR 55 POC Glucose 450 H* (60-115) mg/dL Random Glucose 441 H* (60-115) mg/dL Lactic Acid 2.5 H* (0.5-2.0) mmol/L Calcium 9.0 (8.4-10.2) mg/dL Magnesium 2.2 (1.6-2.6) mg/dL Total Bilirubin 0.3 (0.0-1.0) mg/dL Direct Bilirubin 0.1 (0.0-0.5) mg/dL AST 16 (5-31) U/L ALT 21 (0-31) U/L Alkaline Phosphatase 211 H (39-117) U/L Troponin I High Sens < 2.7 (<3.5-17.0) ng/L B-Natriuretic Peptide 46 (<100) pg/mL Total Protein 6.7 (6.5-8.0) g/dL Albumin 3.8 (3.5-5.0) g/dL Beta-Hydroxybutyrate 0.06 (0.02-0.27) mmol/L 11/25/24 Range/Units 20:49 WBC (4.8-10.8) X10*3/uL RBC (4.20-5.50) X10*6/uL Hgb (12.0-16.0) g/dl Hct (37.0-47.0) % MCV (80.0-98.0) fL MCH (27.0-33.0) pg MCHC (31.0-35.0) g/dl RDW (11.0-16.0) % Plt Count (160-400) X10*3/uL MPV (9.4-12.3) fL Immature Gran % (Auto) (0.0-0.4) % Neut % (Auto) (45-73) % Lymph % (Auto) (20-40) % Grainger % (Auto) (2-11) % Eos % (Auto) (0-4) % Baso % (Auto) (0-2) % Lymph # (Auto) (1.2-4.9) X10*3/uL Grainger # (Auto) (0.1-1.2) X10*3/uL Eos # (Auto) (0.0-0.4) X10*3/uL Baso # (Auto) (0.0-0.2) X10*3/uL Abs Immat Gran (auto) (0.00-0.03) X10*3/uL Absolute Neuts (auto) (2.0-8.3) x10*3/uL Absolute Nucleated RBC (0.0-0.012) X10*3/uL Nucleated RBC % (auto) (0.0-0.2) /100WBC VBG pH 7.45 H (7.32-7.43) VBG pCO2 52 mmHg VBG pO2 65 mmHg VBG HCO3 36 H (22-26) mmol/L VBG O2 Saturation 93.0 % VBG Base Excess 10.9 mmol/L Sodium (135-145) mmol/L Potassium (3.3-5.1) mmol/L Chloride (96-108) mmol/L Carbon Dioxide (22-29) mmol/L Anion Gap (12-20) BUN (9-16) mg/dL Creatinine (0.5-1.4) mg/dL Estim Creat Clear Calc Estimated GFR POC Glucose (60-115) mg/dL Random Glucose (60-115) mg/dL Lactic Acid (0.5-2.0) mmol/L Calcium (8.4-10.2) mg/dL Magnesium (1.6-2.6) mg/dL Total Bilirubin (0.0-1.0) mg/dL Direct Bilirubin (0.0-0.5) mg/dL AST (5-31) U/L ALT (0-31) U/L Alkaline Phosphatase (39-117) U/L Troponin I High Sens (<3.5-17.0) ng/L B-Natriuretic Peptide (<100) pg/mL Total Protein (6.5-8.0) g/dL Albumin (3.5-5.0) g/dL Beta-Hydroxybutyrate (0.02-0.27) mmol/L ABG Data ABG Results: No CO2 retention noted on the VBG Attestation ABG: I personally reviewed and interpreted this ABG as follows: Independent Interpretation I performed an independent interpretation of an: EKG (EKG finding as above) and Plain X-Ray (Chest x-ray grossly negative question small effusion) Radiology Impression Discussion of test interpretation with radiology: I have reviewed the radiologist's reading. External Record Review External record reviewed: Inpatient record Chronic Conditions Patient?s care impacted by: Diabetes and Hypertension Respiratory failure Social Determinants Patient?s care significantly limited by Social Determinants of Health including: Problems related to primary support group Critical Care Time Critical Care Time Critical Care Time: Yes Total Critical Care Time: 40 Attestation: I have personally provided 40 minutes of critical care time exclusive of time spent on separately billable procedures. ?Time includes review of lab data, radiology results, discussion with consultants, and monitoring for potential decompensation. ?Interventions were performed as documented above Discharge Plan Discharge Clinical Impression: COPD (chronic obstructive pulmonary disease) Patient Disposition: Admitted As Inpatient
[2024-11-25 20:08] LABS: Glucose, Whole Blood 450 mg/dL (60-115)
--- NOTE | 2024-11-25 20:09 | ECG_ITS ---
Test Reason : CHEST PAIN Blood Pressure : */* mmHG Vent. Rate : 89 BPM Atrial Rate : 89 BPM P-R Int : 180 ms QRS Dur : 90 ms QT Int : 376 ms P-R-T Axes : 51 -11 36 degrees QTcB Int : 457 ms Normal sinus rhythm Cannot rule out Anterior infarct (cited on or before 31-May-2024) Abnormal ECG When compared with ECG of 06-Nov-2024 21:38, No significant change was found Referred By: Gita Monson Electronically Signed By: DENIS GAMBINO
[2024-11-25] MEDS: Magnesium Sulfate/H2O 2 GM/50 ML PIGGYBACK IV (20:19)
[2024-11-25] MEDS: Albuterol/Iprat 2.5/0.5MG 3 ML AMPUL.NEB INHALE (20:19)
[2024-11-25 20:22] VITALS: PULSE 88; RESP 16; O2SAT 95
[2024-11-25] MEDS: Albuterol Sulfate (0.083%) 2.5 MG/3 ML VIAL.NEB INHALE (20:22)
[2024-11-25 20:52] LABS: MANUAL DIFF FLAG NO
[2024-11-25 20:53] LABS: Hematocrit 37.2 % (37.0-47.0); Hemoglobin 12.3 g/dl (12.0-16.0); Imm Gran Abs Auto 0.01 X10*3/uL (0.00-0.03); Imm Gran Pct Auto 0.1 % (0.0-0.4); Lymphocytes Absolute Auto 2.4 X10*3/uL (1.2-4.9); Mean Corpuscular HGB Conc 33.1 g/dl (31.0-35.0); Mean Corpuscular Hemoglobin 28.1 pg (27.0-33.0); Mean Corpuscular Volume 84.9 fL (80.0-98.0); NRBC Abs Auto 0.000 X10*3/uL (0.0-0.012); NRBC Pct Auto 0.0 /100WBC (0.0-0.2); Platelet Count 250 X10*3/uL (160-400); Red Blood Count 4.38 X10*6/uL (4.20-5.50); White Blood Count 7.9 X10*3/uL (4.8-10.8)
[2024-11-25 20:53] LABS: VBG HCO3 36 mmol/L (22-26); VBG O2 % Saturation 93.0 %
[2024-11-25 20:54] LABS: Venous Blood Gas Refer to POC result
[2024-11-25 21:00] VITALS: RESP 20
[2024-11-25 21:13] LABS: B Type Natriuretic Peptide 46 pg/mL (<100)
--- NOTE | 2024-11-25 21:13 | PC.NURSE ---
late entry- pt biba from home, a&ox4, respirations even and unlabored, on 2L nc baseline with old trach stoma. pt reports increased shortness of breath and general weakness x1 day. ems placed 20 rac and gave approx. 200ml of ns. on arrival rt at bedside, duoneb administered. pt medicated per may. vss
--- NOTE | 2024-11-25 21:14 | PC.NURSE ---
pt noted to have old healing burn on abdomen, offers no complaints around the area
[2024-11-25 21:15] LABS: Troponin-I High Sensitivity < 2.7 ng/L (<3.5-17.0)
--- OUTSIDE RECORDS SUMMARY | 2024-11-25 21:25 | XMS_ITS | Patient Health Record ---
Author Organization [facility] Address [address] [place] [address] Care Team Providers Care Hiv Counselor Name Role Phone Angie Wing Primary Care Provider Unavailab Aleksey King Unavailable [phone] Viraj Copeland Unavailable Unavailable Allergies Allergen (clinical [...] Problem Status W/U Status Risk Notes Problem 416841605 Gastroesophageal reflux disease without esophagitis (K21.9) Active confirmed Problem [id number] Pharyngoesophage al dysphagia (R13.14) Active confirmed Plan Of Treatment Future Test Test Name Order Date UPPER GI ENDOSCOPY [place] DILATION OF ESOPH 02/27/2015 Insurance Providers Payer Name Payer Address Payer Phone Subscriber Number Group Number Insured Name Patient Relationship to Insured Coverage Start Date Coverage End Date [facility] [employer] [employer] [facility] [address] [address] [place], [place] [phone] [id number] SAKSHI BUSH Self - patient is the insured MEDICAID OF [facility] [address] [place] [phone] [id number] RACHELLE SAKSHI Self - patient is the insured Medical (General) History Medical History History ICD Code GERD hypertension asthma depression/bipolar Denies KS,DM,CVA,renal disease Back pain Surgical History Surgery Date(Month/Year) spinal fusion tonsillectomy and adenoidectomy appendectomy
--- OUTSIDE RECORDS SUMMARY | 2024-11-25 21:25 | XMS_ITS | Clinical Summary ---
Author Organization [facility] [address] [place] [address] [place] [address] [place] [address] Phone Care Team Providers Care Optical Coating Technician Name Role Phone Megan Anderson MD Primary [...] 4 (four) hours if needed for wheezing. 3 Active blood-glucose meter kit 4 (four) times a day. Use to check blood sugars 3 Active cetirizine (ZyrTEC) 10 mg capsule Take by mouth. Active clonazePAM (KlonoPIN) 1 mg tablet 2 (two) times a day. 2 Active EPINEPHrine (EpiPen 2-Michael) 0.3 mg/0.3 mL injection Inject 0.3 mL (0.3 mg total) into the thigh if needed for anaphylaxis. 3 Active escitalopram (LEXAPRO) 20 mg tablet Take 1 tablet (20 mg total) by mouth 1 (one) time each day. 2 Active FREESTYLE LANCETS MISC 1 EA 4 (four) times a day. to check blood sugars 8 Active glipiZIDE (GLUCOTROL) 5 mg tablet Take 1 tablet (5 mg total) by mouth 1 (one) time each day. 4 Active blood sugar diagnostic (FreeStyle Lite Strips) test strip 1 each 4 (four) times a day. to check blood sugars 0 Active insulin glargine (Lantus Solostar U-100 Insulin) 100 unit/mL (3 mL) injection pen Inject 20 Units under the skin 1 (one) time each day. 4 Active lurasidone (LATUDA) 40 mg tablet Take 1.5 tablets (60 mg total) by mouth. Active OXcarbazepine (TRILEPTAL) 300 mg tablet Take 1 tablet (300 mg total) by mouth 2 (two) times a day. Active traZODone (DESYREL) 100 mg tablet Take 1.5 tablets (150 mg total) by mouth at bedtime. Active mometasone-formot montez (DULERA 200) 200-5 mcg/actuation inhaler Inhale 2 puffs by mouth 2 (two) times a day. 4 Active gabapentin (NEURONTIN) 300 mg capsule Take 1 capsule (300 mg total) by mouth 2 (two) times a day. 180 each 1 4 Active promethazine (PHENERGAN) 25 mg tablet Take 1 tablet (25 mg total) by mouth 1 (one) time each day if needed for nausea. 90 tablet 5 Active BD Insulin Syringe Ultra-Fine 1 mL 31 gauge x 5/16 syringe USE DIRECTED 4 TIMES A DAY 200 each 2 5 Active metFORMIN XR (GLUCOPHAGE-XR) 500 mg 24 hr tablet TAKE 2 TABLETS BY MOUTH TWO TIMES A DAY 360 tablet 1 5 Active insulin lispro (HumaLOG KwikPen) 100 unit/mL [...] 10u, BG Over 399: 12u and call 15 mL 1 5 Active famotidine (PEPCID) 20 mg tablet TAKE 1 TABLET BY MOUTH TWICE A DAY 180 tablet 1 5 Active Ventolin HFA 90 mcg/actuation inhalerIndication s:Moderate persistent asthma without complication INHALE 2 PUFFS BY MOUTH EVERY 6 (SIX) HOURS IF NEEDED FOR WHEEZING. COUGH 18 each 5 Active atorvastatin (LIPITOR) 20 mg tablet TAKE 1 TABLET BY MOUTH EVERY DAY 90 tablet 5 Active fluticasone propionate (FLONASE) 50 mcg/actuation nasal spray SPRAY 1 SPRAY INTO EACH NOSTRIL 1 TIME EACH DAY 48 mL 5 Active Active Problems Problem Noted Date Diagnosed [...] 08/05/2021 DVT of deep femoral vein, right ([facility] V24, [facility] V28) 05/28/2021 Assessment & Plan [...] complication, without long-term current use of insulin ([facility] V24, [facility] V28) 01/20/2018 Assessment & Plan [...] 4 months. Narcotic dependence, in vasu ssion ([facility] V24, [facility] V28) 11/02/2011 Overview (01/11/2024): On [...] 6mo and older 11/26/2019,11/13/2019,11/04/2018 PPD Test 08/30/2018 freshbag SARS-CoV-2 COVID-19, mRNA, LNP-S, preservative free 04/20/2020,04/03/2020 Td Tetanus diptheria (Tdvax) 7yo and older 04/14/2006 Tdap Tetanus diptheria acell ular pertussis (Boostrix; Adacel) 7yo and older 01/06/2018 Surgical History Surgery Date Site/Laterality Comments OTHER SURGICAL HISTORY PROCEDURE: NE ARTHRODESIS POSTERIOR SPINAL DFRM <6 VRT SGM UPPER GASTROINTESTINAL ENDOSCOPY 05/04/2019 PROCEDURE: NE UPPER GI ENDOSCOPY PERFORMED; COMMENT: Visually normal on treatment with famotidine 40 mg every morning. CYSTOSCOPY 06/2021 PROCEDURE: NE CYSTOURETHROSCOPY; COMMENT: Cystoscopy and stent placement for [...] essential hypertension PEA (Pulseless electrical ac tivity) ([facility] V24, [facility] V28) 11/06/2020 DX:PEA (Pulseless electrica l activity) ([facility]); COMMENT: Found at home PEA and apneic [facility] admit 11/01/20 Pulmonary embolism (CMS/HCC V24, [facility] V28) 05/28/2021 DX:Pulmonary embolism ([facility]) 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 DX:Necr otizing [...] Blood Sugar Control Test (HGBA1C) 01/05/2023 07/06/2022 Depression Screening 03/14/2024 07/13/2023 Diabetes: Annual GFR (Glomerular Filtration Rate) 09/22/2024 09/23/2023, 09/23/2023 Hypertension/CHF/CAD Annual BMP Blood Test 09/22/2024 09/23/2023, 09/23/2023 COVID-19 Vaccine ( season) 2024 08/08/2020, 07/14/2020, 04/20/2020, Additional history exists Influenza Vaccine (#1) 2024 , 12/03/2021, 11/26/2019, [...] Report (05/21/2024) Anatomical Region Laterality Modality Ultrasound us Provider [employer] US PROCEDURES Final Result * Annual BMP Blood Test (09/23/2023) [facility] Annual BMP Blood Test abstracted Result [facility] Provider HEALTH MAINTENANCE Final Result * (ABNORMAL) Lipid panel (09/23/2023) [facility] LDL/HDL Ratio 5(A) 0 - 4 Triglycerides 418(A) 0 - 150 mg/dL Cholesterol 149 0 - 200 mg/dL HDL 33(A) >=40 mg/dL LDL Cholesterol 33 0 - 100 mg/dL Blood Venous blood specimen / Unknown Result [facility] Provider LAB BLOOD ORDERABLES Laila l Result * Depression Screening (07/13/2023) [facility] Depression Screening abstracted Result [facility] Provider HEALTH MAINTENANCE Final Result * (ABNORMAL) Hemoglobin A1c (07/06/2022) [facility] Hemoglobin A1C 9.7(A) <=6.5 % Blood Venous blood specimen / Unknown Result [facility] Provider LAB BLOOD ORDERABLES Laila l Result * Cervical Cancer Screening: HPV (06/17/2022) [facility] Cervical Cancer Screening: HPV negative, abstracted Result [facility] Provider HEALTH MAINTENANCE Final Result * Hepatitis C Screening (11/14/2008) [facility] Hepatitis C Screening abstracted Result [facility] Provider HEALTH MAINTENANCE Final Result * Urine Albumin Creatinine Ratio (12/11/2004) [facility] Urine Albumin Creatinine Ratio abstracted Result [facility] Provider HEALTH MAINTENANCE Final Result from Last 3 Months or Most Recently Relevant to Health Maintenance Insurance [employer] Care Teams Optical Coating Technician Relationship Specialty Start Date End Date Megan Anderson MD [address] [place] [phone] PCP - General Internal Medicine 10/12/21
--- OUTSIDE RECORDS SUMMARY | 2024-11-25 21:25 | XMS_ITS | Clinical Summary ---
Author Organization [facility] Address [address] [facility] [address] [place] [address] Phone Care Team Providers Care Stretcher And Drier Name Role Phone Unavailable Primary Care Provider [...] PCV) 020 Influenza Vaccine (#1) 2024 Insurance [facility] Medicaid [facility] Medicaid
[2024-11-25 21:33] LABS: Alanine Aminotransferase 21 U/L (0-31); Albumin Level 3.8 g/dL (3.5-5.0); Alkaline Phosphatase 211 U/L (39-117); Anion Gap 15 (12-20); Aspartate Amino Transferase 16 U/L (5-31); Blood Urea Nitrogen 13 mg/dL (9-16); Calcium 9.0 mg/dL (8.4-10.2); Carbon Dioxide 31 mmol/L (22-29); Chloride 94 mmol/L (96-108); Creatinine Clr Calc Pharmacy 69.4; Estimated Glomerular Filt Rate 55; Magnesium 2.2 mg/dL (1.6-2.6); Potassium 3.9 mmol/L (3.3-5.1); Sodium 136 mmol/L (135-145); Total Protein 6.7 g/dL (6.5-8.0)
[2024-11-25] MEDS: cefEPime HCl/D5W 2 GM/50 ML PIGGYBACK IV (21:39)
--- NOTE | 2024-11-25 21:48 | PM.IMHP ---
History of Present Illness Date of Service: 11/25/24 Chief Complaint: SOB 54-year-old female with a past medical history of HTN, HLD, dm, HX cardiac arrest, HX pancreatitis, has chronic respiratory failure, HX tracheostomy, HX asthma on chronic prednisone; pulmonary embolism not on anticoagulation; presented to the hospital today with a chief complaint of shortness of breath. Patient reports over the past couple days she has been having shortness of breath has been gradually worsening. Denies fevers or chills. Denies any chest pain or palpitations Denies any GI or symptoms. Review of all other systems is negative except mentioned above ER course: Per ER team, patient noted to have bilateral wheezing on presentation; was short of breath; patient is at her baseline 2 L of supplemental oxygen.; chest x-ray showed small pleural effusion. CTA chest was pending. Given nebulizations and steroids. [facility] Medical History Lumbar degenerative disc disease Small bowel obstruction Uncontrolled diabetes mellitus with hyperglycemia Obesity (BMI 30-39.9) Bipolar depression Anxiety Insomnia Tracheostomy present Pure hypercholesterolemia Diabetes mellitus Asymptomatic bacteriuria Morbid obesity Partial small bowel obstruction Tracheostomy dependent History of cardiac arrest Wound drainage Takotsubo cardiomyopathy Kidney stones UTI (urinary tract infection) Bipolar 1 disorder Asthma Substance abuse Family History Mother No pertinent family history Father No pertinent family history Surgical History History of tracheostomy S/P ureteral stent placement H/O exploratory laparotomy S/P cholecystectomy Social History Household Members: Spouse Household Members Other:: 1 Housing: Apartment Do you presently have visiting nurse or other home services: No Alcohol intake: former Comment: stayed in ed Patient Tobacco Use Status: Never used Tobacco e-Cigarette/Vaping Use: Never Used Second Hand Smoke Exposure: No Advance Directives Date on File: 02/04/23 service: No Current occupational status: disabled Cognitive needs: No Hearing needs: No Vision needs: Yes Meds Allergies Allergy/AdvReac Type Severity Reaction Status Date / Time pantoprazole Allergy Mild Redness of Verified 11/25/24 20:05 Skin Active Medications: Current Medications Sodium Chloride (Ns) 1,000 mls @ 999 mls/hr IV .Q1H1M RILEY Stop: 11/25/24 22:30 Last Admin: 11/25/24 21:34 Dose: 999 mls/hr Sodium Chloride (Ns) 1,000 mls @ 999 mls/hr IV .Q1H1M RILEY Stop: 11/25/24 22:30 Last Admin: 11/25/24 21:34 Dose: 999 mls/hr Cefepime HCl (Maxipime) 2 gm in 50 mls @ 100 mls/hr IV ONCE ONE Stop: 11/25/24 21:53 Last Admin: 11/25/24 21:39 Dose: 100 mls/hr Home Medications ?Medication ?Instructions ?Recorded ?Confirmed ?Last Taken ?Type clonazepam 1 mg tablet 1 mg PO BID PRN Anxiety 02/02/23 11/01/24 08/27/24 History escitalopram oxalate 20 mg tablet 20 mg PO BEDTIME 02/02/23 11/01/24 08/27/24 History famotidine 20 mg tablet 20 mg PO BID 02/02/23 11/01/24 08/27/24 History fluticasone propionate 50 1 spray intranasal DAILY PRN 02/02/23 11/01/24 08/10/24 History mcg/actuation nasal Allergy Symptoms spray,suspension metformin 500 mg tablet,extended 1,000 mg PO BID 02/02/23 11/01/24 08/27/24 History release 24 hr oxcarbazepine 300 mg tablet 300 mg PO BID 02/02/23 11/01/24 08/27/24 History trazodone 150 mg tablet 150 mg PO BEDTIME PRN Sleep 02/02/23 11/01/24 09/07/23 20:00 History atorvastatin 20 mg tablet 20 mg PO DAILY 05/31/24 11/01/24 08/27/24 History mometasone-formoterol HFA 200 2 puff inhalation BID 05/31/24 11/01/24 08/27/24 History mcg-5 mcg/actuation aerosol inhaler (Dulera) insulin glargine 100 unit/mL (3 20 unit subcut BEDTIME 08/11/24 11/01/24 08/27/24 History mL) subcutaneous pen (Lantus Solostar U-100 Insulin) lurasidone 80 mg tablet 80 mg PO BEDTIME 08/11/24 11/01/24 08/27/24 History Physical Exam Vital Signs and Narrative: Vital Signs: Last Vital Signs Temp 98.7 F 11/25/24 19:57 Pulse 88 11/25/24 20:22 Resp 20 11/25/24 21:00 BP 154/70 H 11/25/24 19:57 Pulse Ox 95 11/25/24 19:57 O2 Del Method Nasal Cannula 11/25/24 19:57 Oxygen Flow Rate 2 11/25/24 19:57 BMI result Body Mass Index 39.6 Gen: Appears be in no acute distress HEENT: NCAT, Moist mucosa. Pulmonary: Coarse breath sounds CVS: Normal S1-S2 Abdomen: BS+, Soft, Nontender Extremities: Warm well perfused Neuro: Alert and awake. Results Labs 11/25/24 20:45 11/25/24 20:45 Labs: Laboratory Results - last 24 hr 11/25/24 11/25/24 11/25/24 20:01 20:45 20:46 MCV 84.9 MCH 28.1 MCHC 33.1 RDW 12.8 Plt Count 250 MPV 9.9 Immature Gran % (Auto) 0.1 Neut % (Auto) 59.1 Lymph % (Auto) 30.6 [place] % (Auto) 5.6 Eos % (Auto) 4.3 H Baso % (Auto) 0.3 Lymph # (Auto) 2.4 [place] # (Auto) 0.4 Eos # (Auto) 0.3 Baso # (Auto) 0.0 Abs Immat Gran (auto) 0.01 Absolute Neuts (auto) 4.7 Absolute Nucleated RBC 0.000 Nucleated RBC % (auto) 0.0 VBG pH VBG pCO2 VBG pO2 VBG HCO3 VBG O2 Saturation VBG Base Excess Anion Gap 15 Estim Creat Clear Calc 69.4 Estimated GFR 55 POC Glucose 450 H* Random Glucose 441 H* Lactic Acid 2.5 H* Calcium 9.0 Magnesium 2.2 Total Bilirubin 0.3 Direct Bilirubin 0.1 AST 16 ALT 21 Alkaline Phosphatase 211 H B-Natriuretic Peptide 46 Total Protein 6.7 Albumin 3.8 11/25/24 20:49 MCV MCH MCHC RDW Plt Count MPV Immature Gran % (Auto) Neut % (Auto) Lymph % (Auto) [place] % (Auto) Eos % (Auto) Baso % (Auto) Lymph # (Auto) [place] # (Auto) Eos # (Auto) Baso # (Auto) Abs Immat Gran (auto) Absolute Neuts (auto) Absolute Nucleated RBC Nucleated RBC % (auto) VBG pH 7.45 H VBG pCO2 52 VBG pO2 65 VBG HCO3 36 H VBG O2 Saturation 93.0 VBG Base Excess 10.9 Anion Gap Estim Creat Clear Calc Estimated GFR POC Glucose Random Glucose Lactic Acid Calcium Magnesium Total Bilirubin Direct Bilirubin AST ALT Alkaline Phosphatase B-Natriuretic Peptide Total Protein Albumin Assessment and Plan (1) COPD (chronic obstructive pulmonary disease): Qualifiers: COPD type: unspecified COPD Qualified Code(s): J44.9 - Chronic obstructive pulmonary disease, unspecified Status: Acute Plan 54-year-old female with a past medical history of HTN, HLD, dm, HX cardiac arrest, HX pancreatitis, has chronic respiratory failure, HX tracheostomy, HX asthma on chronic prednisone; pulmonary embolism not on anticoagulation; presented to the hospital today with a chief complaint of shortness of breath. Admitted for following Acute COPD/asthma exacerbation: Chronic respiratory failure: HX tracheostomy: Patient on her baseline 2 L of supplemental oxygen Tracheostomy care per respiratory therapist Continue nebulizations standing and p.r.n. Continue azithromycin Continue Solu-Medrol IV Pulmonology consult CTA chest pending Diabetes: Will give the patient on Lantus 10+ sliding scale. Monitor POC glucose and adjust insulins Mood disorder: Continue home medications DVT prophylaxis: Lovenox Code status: Full code Quality Stroke Does the patient have a stroke diagnosis?: No VTE Prior VTE?: No VTE Risk Level:: Medical - moderate - high VTE Device Contraindication: Treatment Not Indicated VTE Drug Contraindication: N/A - Med Ordered
[2024-11-25] MEDS: iohexoL 350 MG/ML 100 ML INFUS..BTL 65 ML IV (22:22)
[2024-11-25 22:41] VITALS: BP 142/73; PULSE 91; RESP 16; TEMP 36.7; O2SAT 95
[2024-11-25] MEDS: Insulin Glargine,Hum.rec.anlog 100 UNIT/ML 10 ML VIAL 10 UNIT SUBCUT (22:42)
--- NOTE | 2024-11-25 22:44 | PC.NURSE ---
pt medicated per may, tolerated whole well with water. pt reports 8/10 back pain MD Grier aware
[2024-11-25 22:50] LABS: Reflex Lactate? Lactic Acid Added
[2024-11-26] VITALS (12 sets, daily range): BP systolic 116–153; BP diastolic 52–88; PULSE 62–113; RESP 12–20; TEMP 36–37.1; O2SAT 91–96; BMI 38.4
[2024-11-26 00:03] LABS: ~Lactic Acid-LAB USE ONLY 1.8 mmol/L (0.5-2.0)
[2024-11-26] MEDS: Albuterol Sulfate (0.083%) 2.5 MG/3 ML VIAL.NEB INHALE (00:06)
--- NOTE | 2024-11-26 00:24 | PC.NURSE ---
pt requesting recliner for sleep, recliner provided. RT at bedside with pt, trach mask placed at this time for comfort. pt tolerating well, offering no complaints
[2024-11-26 04:39] LABS: Glucose, Whole Blood 306 mg/dL (60-115)
--- NOTE | 2024-11-26 04:58 | PC.NURSE ---
pt independent and ambulatory to bathroom with steady gait at this time, pt offers no complaints, vss
[2024-11-26 06:15] LABS: Hematocrit 40.3 % (37.0-47.0); Hemoglobin 13.1 g/dl (12.0-16.0); Imm Gran Abs Auto 0.04 X10*3/uL (0.00-0.03); Imm Gran Pct Auto 0.7 % (0.0-0.4); Lymphocytes Absolute Auto 0.4 X10*3/uL (1.2-4.9); MANUAL DIFF FLAG SCAN; Mean Corpuscular HGB Conc 32.5 g/dl (31.0-35.0); Mean Corpuscular Hemoglobin 27.6 pg (27.0-33.0); Mean Corpuscular Volume 85.0 fL (80.0-98.0); NRBC Abs Auto 0.000 X10*3/uL (0.0-0.012); NRBC Pct Auto 0.0 /100WBC (0.0-0.2); Platelet Count 245 X10*3/uL (160-400); Red Blood Count 4.74 X10*6/uL (4.20-5.50); SCAN SMEAR FLAG 1; White Blood Count 5.9 X10*3/uL (4.8-10.8)
[2024-11-26 07:05] LABS: Alanine Aminotransferase 25 U/L (0-31); Albumin Level 3.9 g/dL (3.5-5.0); Alkaline Phosphatase 215 U/L (39-117); Anion Gap 17 (12-20); Aspartate Amino Transferase 19 U/L (5-31); Blood Urea Nitrogen 14 mg/dL (9-16); Calcium 8.7 mg/dL (8.4-10.2); Carbon Dioxide 26 mmol/L (22-29); Chloride 95 mmol/L (96-108); Creatinine Clr Calc Pharmacy 77.6; Estimated Glomerular Filt Rate > 60; Potassium 5.9 mmol/L (3.3-5.1); Sodium 132 mmol/L (135-145); Total Protein 7.2 g/dL (6.5-8.0)
--- NOTE | 2024-11-26 07:27 | PC.NURSE ---
Assumed care at 0715. Pt resting quietly. She is concerned with CO2 retention with the O2 adminstratoin at 8L. Critical blood sugar this morning at 623. provider notified.
[2024-11-26 08:10] LABS: Glucose, Whole Blood 577 mg/dL (60-115)
--- NOTE | 2024-11-26 08:34 | PC.NURSE ---
Pt reports she wants to go home and manage on her own. She asks about her CO2 retention.
--- NOTE | 2024-11-26 09:15 | P.DS_ITS ---
DS: Providers Provider Date of Service: 11/27/24 Date of admission: 11/25/24 21:42 Date of discharge: 11/27/24 Primary care physician: Flynn Granado MD Consults: 11/25/24 21:42 Consult to Pulmonology Routine Consulting Provider: [facility] [place] [facility] Reason for consultation: COPD DS: Diagnosis Discharge Diagnosis (1) COPD (chronic obstructive pulmonary disease): Status: Acute DS: Summary Hospital Course Hospital Course: from initial hpi: 54-year-old female with a past medical history of HTN, HLD, dm, HX cardiac arrest, HX pancreatitis, has chronic respiratory failure, HX tracheostomy, HX asthma on chronic prednisone; pulmonary embolism not on anticoagulation; presented to the hospital today with a chief complaint of shortness of breath. Patient reports over the past couple days she has been having shortness of breath has been gradually worsening. Denies fevers or chills. Denies any chest pain or palpitations Denies any GI or symptoms. Review of all other systems is negative except mentioned above ER course: Per ER team, patient noted to have bilateral wheezing on presentation; was short of breath; patient is at her baseline 2 L of supplemental oxygen.; chest x-ray showed small pleural effusion. CTA chest was pending. Given nebulizations and steroids. hospital course: Patient was admitted for acute on chronic hypoxic respiratory failure due to COPD with acute decompensation complicated by diabetes with severe hyperglycemia. Patient was treated with steroids, insulin, DuoNebs. Shortness of breath and hypoxia significantly improved. Diabetes is still poorly controlled with hyperglycemia in the 300s but significantly better and fairly similar to baseline. She will be discharged home on 5 more days of prednisone and azithromycin. For mood disorder was continued on Trileptal, Latuda, Lexapro. For morbid obesity weight loss recommended. Time Attestation Discharge Coordination Time (in mins): 36 Quality: Safe Use of Opioids Does Pt have an Active Cancer Diagnosis on the Problem List?: No Quality: Stroke Does the patient have a stroke diagnosis?: No Physical Exam Exam: Exam: General: AO X 3, i no acute distress Resp: Some wheezing bilateral, no accessory muscles used CVS: S1,S2,RRR GI: soft, non tender, non distended Neuro: motor grossly intact, alert Psych: appropriate affect, appropriate insight Vital Signs: Vital Signs: Last Vital Signs Temp 98.6 F 11/26/24 08:31 Pulse 87 11/26/24 08:31 Resp 13 11/26/24 08:31 BP 140/79 H 11/26/24 08:31 Pulse Ox 92 11/26/24 08:31 O2 Del Method Trach Collar 11/26/24 06:11 O2 Flow Rate 8 11/26/24 08:31 Oxygen Flow Rate 2 11/25/24 19:57 BMI result Body Mass Index 39.6 DS: Data Data Completed and Pending Completed studies during hospitalization [Text1]: Procedures Dilation of Left Ureter with Intraluminal Device, Via Natural or Artificial Opening Endoscopic (06/11/21) Fluoroscopy of Left Kidney, Ureter and Bladder (06/11/21) Labs on day of discharge: Laboratory Results - last 24 hr 11/25/24 11/25/24 11/25/24 20:01 20:45 20:46 WBC 7.9 RBC 4.38 Hgb 12.3 Hct 37.2 MCV 84.9 MCH 28.1 MCHC 33.1 RDW 12.8 Plt Count 250 MPV 9.9 Immature Gran % (Auto) 0.1 Neut % (Auto) 59.1 Lymph % (Auto) 30.6 [place] % (Auto) 5.6 Eos % (Auto) 4.3 H Baso % (Auto) 0.3 Lymph # (Auto) 2.4 [place] # (Auto) 0.4 Eos # (Auto) 0.3 Baso # (Auto) 0.0 Abs Immat Gran (auto) 0.01 Absolute Neuts (auto) 4.7 Absolute Nucleated RBC 0.000 Nucleated RBC % (auto) 0.0 Smear Tech's Comments VBG pH VBG pCO2 VBG pO2 VBG HCO3 VBG O2 Saturation VBG Base Excess Sodium 136 Potassium 3.9 Chloride 94 L Carbon Dioxide 31 H Anion Gap 15 BUN 13 Creatinine 1.04 Estim Creat Clear Calc 69.4 Estimated GFR 55 POC Glucose 450 H* Random Glucose 441 H* Lactic Acid 2.5 H* Lactic Acid F/U @ 2Hr Calcium 9.0 Magnesium 2.2 Total Bilirubin 0.3 Direct Bilirubin 0.1 AST 16 ALT 21 Alkaline Phosphatase 211 H Troponin I High Sens < 2.7 B-Natriuretic Peptide 46 Total Protein 6.7 Albumin 3.8 Beta-Hydroxybutyrate 0.06 11/25/24 11/25/24 11/25/24 20:49 22:28 23:44 WBC RBC Hgb Hct MCV MCH MCHC RDW Plt Count MPV Immature Gran % (Auto) Neut % (Auto) Lymph % (Auto) [place] % (Auto) Eos % (Auto) Baso % (Auto) Lymph # (Auto) [place] # (Auto) Eos # (Auto) Baso # (Auto) Abs Immat Gran (auto) Absolute Neuts (auto) Absolute Nucleated RBC Nucleated RBC % (auto) Smear Tech's Comments VBG pH 7.45 H VBG pCO2 52 VBG pO2 65 VBG HCO3 36 H VBG O2 Saturation 93.0 VBG Base Excess 10.9 Sodium Potassium Chloride Carbon Dioxide Anion Gap BUN Creatinine Estim Creat Clear Calc Estimated GFR POC Glucose 306 H Random Glucose Lactic Acid Lactic Acid F/U @ 2Hr 1.8 Calcium Magnesium Total Bilirubin Direct Bilirubin AST ALT Alkaline Phosphatase Troponin I High Sens B-Natriuretic Peptide Total Protein Albumin Beta-Hydroxybutyrate 11/26/24 11/26/24 05:37 08:02 WBC 5.9 RBC 4.74 Hgb 13.1 Hct 40.3 MCV 85.0 MCH 27.6 MCHC 32.5 RDW 12.7 Plt Count 245 MPV 10.2 Immature Gran % (Auto) 0.7 H Neut % (Auto) 91.5 H Lymph % (Auto) 6.6 L [place] % (Auto) 0.9 L Eos % (Auto) 0.0 Baso % (Auto) 0.3 Lymph # (Auto) 0.4 L [place] # (Auto) 0.1 Eos # (Auto) 0.0 Baso # (Auto) 0.0 Abs Immat Gran (auto) 0.04 H Absolute Neuts (auto) 5.4 Absolute Nucleated RBC 0.000 Nucleated RBC % (auto) 0.0 Smear Tech's Comments VERIFIED VBG pH VBG pCO2 VBG pO2 VBG HCO3 VBG O2 Saturation VBG Base Excess Sodium 132 L Potassium 5.9 H D Chloride 95 L Carbon Dioxide 26 Anion Gap 17 BUN 14 Creatinine 0.93 Estim Creat Clear Calc 77.6 Estimated GFR > 60 POC Glucose 577 H* Random Glucose 623 H* Lactic Acid Lactic Acid F/U @ 2Hr Calcium 8.7 Magnesium Total Bilirubin 0.4 Direct Bilirubin AST 19 ALT 25 Alkaline Phosphatase 215 H Troponin I High Sens B-Natriuretic Peptide Total Protein 7.2 Albumin 3.9 Beta-Hydroxybutyrate Discharge Plan Discharge Anticipated Discharge Date/Time: 11/26/24 09:13 Patient Disposition: Home, Self-Care Discharge Diagnosis: copd Referrals: Flynn Granado MD [Primary Care Provider, Internal Medicine] - 1 Week Discharge Medications: New azithromycin 500 mg Tablet 500 mg PO Q24H 5 Days Qty: 5 0RF prednisone 20 mg tablet 40 mg PO DAILY Qty: 10 0RF Continued insulin lispro 100 unit/mL insulin pen 1 sliding scale dose subcut TIDAC 30 Days Qty: 15 3RF Rx Instructions: 2 to 20 units TID with meals per sliding scale promethazine 25 mg tablet 25 mg PO DAILY PRN (Reason: nausea) Qty: 30 0RF albuterol sulfate [Ventolin HFA] 90 mcg/actuation HFA aerosol inhaler 2 puff inhalation Q4H PRN (Reason: wheezing) Qty: 8.5 2RF ibuprofen 800 mg tablet 800 mg PO Q8H PRN (Reason: pain) Qty: 90 0RF Rx Instructions: Take with food lurasidone 80 mg tablet 80 mg PO BEDTIME insulin glargine [Lantus Solostar U-100 Insulin] 100 unit/mL (3 mL) insulin pen 20 unit subcut BEDTIME clonazepam 1 mg tablet 1 mg PO BID PRN (Reason: Anxiety) oxcarbazepine 300 mg tablet 300 mg PO BID famotidine 20 mg tablet 20 mg PO BID trazodone 150 mg tablet 150 mg PO BEDTIME PRN (Reason: Sleep) fluticasone propionate 50 mcg/actuation spray,suspension 1 spray intranasal DAILY PRN (Reason: Allergy Symptoms) Rx Instructions: INHALE IN BOTH NOSTRILS escitalopram oxalate 20 mg tablet 20 mg PO BEDTIME atorvastatin 20 mg Tablet 20 mg PO DAILY Dulera 200-5 mcg/actuation Hfa Aerosol Inhaler 2 puff INHALATION BID (DME) blood-glucose meter [FreeStyle Lite Meter] Kit See Rx Instructions .ROUTE .MEDSUPPLY Qty: 1 0RF Rx Instructions: As directed (DME) FreeStyle Lite Strips Strip See Rx Instructions .ROUTE .MEDSUPPLY Qty: 100 12RF Rx Instructions: As directed 3 times a day (DME) lancets [FreeStyle Lancets] 28 gauge misc See Rx Instructions .ROUTE .MEDSUPPLY Qty: 100 12RF Rx Instructions: As directed 3 times a day gabapentin 300 mg capsule 300 mg PO TID 30 Days Qty: 90 1RF Discharge Orders: Discharge Order (Routine); Ordered 11/27/24 Ordered By: Ace Cuevas Diet: Advance to usual diet Activity on Discharge: As tolerated Stand Alone Forms: Patient Portal Discharge page, Against Medical Advice Print Language: Citizen Of [place] Care Plan Goals: recovery Health Concerns: copd Plan of Treatment: Five more days of prednisone and azithromycin Assessment: See above
--- NOTE | 2024-11-26 09:48 | PM.CNPUL ---
History of Present Illness History of Present Illness Consult date: 11/26/24 Chief complaint: COPD EXCERBATION Narrative: This patient is a 53-year-old female with a past medical history of prior cardiac arrest complicated by pancreatitis, chronic obstructive pulmonary disease with chronic respiratory failure. Patient has tracheostomy for long time and is dependent on O2 2 L/minute., diabetes mellitus, mood disorder,? pulmonary embolism ( not on blood thinners ), hyperlipidemia, hypertension, and morbid obesity who presented with acute shortness of breath. Patient has presented with increasing shortness of breath for the past few days. Feels somewhat congested Denies any fever or chills. Patient lives at home her is assisting in the medical care. She say is that she has a failure analysis technician at [facility] with home she follows, and she gets tracheostomy changed every 3 months. In the emergency room over here after having a dose of IV Solu-Medrol, and updraft treatment., she is already feeling better. And she tells me that she is leaving hospital to go home and complete her treatment at home. She say is she can do everything at home that is being done over here. Review of Systems Review of Systems: Yes all other systems are reviewed and are negative PMF Past Medical History Medical History (Updated 11/26/24 @ 10:07 by Matty Hernandez MD) Respiratory failure with hypoxia and hypercapnia Atelectasis Lumbar degenerative disc disease Small bowel obstruction Uncontrolled diabetes mellitus with hyperglycemia Obesity (BMI 30-39.9) Bipolar depression Anxiety Insomnia Tracheostomy present Pure hypercholesterolemia Diabetes mellitus Asymptomatic bacteriuria Morbid obesity Partial small bowel obstruction Tracheostomy dependent History of cardiac arrest Wound drainage Takotsubo cardiomyopathy Kidney stones UTI (urinary tract infection) Bipolar 1 disorder Asthma Substance abuse Family History Family History Mother No pertinent family history Father No pertinent family history Surgical History Surgical History History of tracheostomy S/P ureteral stent placement H/O exploratory laparotomy S/P cholecystectomy Social History Social History Household Members: Spouse Household Members Other:: 1 Housing: Apartment Do you presently have visiting nurse or other home services: No Alcohol intake: former Comment: stayed in ed Patient Tobacco Use Status: Never used Tobacco Smoked in Last 30 Days: No e-Cigarette/Vaping Use: Never Used Second Hand Smoke Exposure: No Use of substances other than those prescribed or required for medical reasons: No Advance Directives: Yes Advance Directives on File: Yes Advance Directives Date on File: 02/04/23 Do you have a plan to hurt others: No Plan Nutrition Risks: No Nutritional Risk Patient : No service: No Current occupational status: disabled Cognitive needs: No Hearing needs: No Vision needs: Yes Meds Allergies Allergy/AdvReac Type Severity Reaction Status Date / Time pantoprazole Allergy Mild Redness of Verified 11/25/24 20:05 Skin Active Medications: Current Medications Acetaminophen (Acetaminophen 325 Mg Tablet) 650 mg PO Q6H PRN PRN Reason: Pain, Mild 1-3,fever,headache Last Admin: 11/25/24 23:28 Dose: 650 mg Albuterol/Ipratropium (Albuterol/Iprat 2.5/0.5mg 3 Ml Ampul.Neb) 3 ml INHALE RQ4H WHILE AWAKE [facility] Last Admin: 11/26/24 07:36 Dose: Not Given Albuterol/Ipratropium (Albuterol/Iprat 2.5/0.5mg 3 Ml Ampul.Neb) 3 ml INHALE Q4H PRN PRN Reason: Shortness of Breath/Wheezing Azithromycin (Azithromycin 500 Mg Tablet) 500 mg PO Q24H [facility] Last Admin: 11/25/24 22:42 Dose: 500 mg Benzonatate (Benzonatate 100 Mg Capsule) 100 mg PO TID PRN PRN Reason: Cough Calcium Carbonate (Calcium Carbonate 750 Mg Tab.Chew) 750 mg PO Q4H PRN PRN Reason: Heartburn Clonazepam (Clonazepam 0.5 Mg Tablet) 0.5 mg PO BID PRN PRN Reason: Anxiety Dextrose (Dextrose 50 % 25 Gm/50 Ml Syringe) 25 gm IVPUSH Q15M PRN; Protocol PRN Reason: per Hypoglycemia Standing Ord. Enoxaparin Sodium (Enoxaparin Sodium 40 Mg/0.4 Ml Syringe) 40 mg SUBCUT Q24H [facility] Last Admin: 11/25/24 22:24 Dose: Not Given Escitalopram Oxalate (Escitalopram Oxalate 20 Mg Tablet) 20 mg PO BEDTIME [facility] Last Admin: 11/25/24 22:42 Dose: 20 mg Gabapentin (Gabapentin 300 Mg Capsule) 300 mg PO TID [facility] Last Admin: 11/26/24 08:05 Dose: 300 mg Glucose (Glucose Gel 15 Gm Gel..Gram.) 15 gm PO Q15M PRN; Protocol PRN Reason: per Hypoglycemia Standing Ord. Hydromorphone HCl (Hydromorphone Hcl 0.5 Mg/0.5 Ml Syringe) 0.5 mg IVPUSH Q4H PRN; Protocol PRN Reason: Breakthrough Pain Last Admin: 11/26/24 04:19 Dose: 0.5 mg Insulin Glargine (Insulin Glargine,Hum.Rec.Anlog 100 Unit/Ml 10 Ml Vial) 10 unit SUBCUT BEDTIME [facility] Last Admin: 11/25/24 22:42 Dose: 10 unit Insulin Human Lispro (Insulin Lispro 100 Unit/Ml 3 Ml Vial) 0 unit SUBCUT QIDACHS [facility]; Protocol Last Admin: 11/26/24 08:29 Dose: 10 unit Lurasidone HCl (Lurasidone Hcl 80 Mg Tablet) 80 mg PO BEDTIME [facility] Last Admin: 11/25/24 22:42 Dose: 80 mg Magnesium Hydroxide (Milk Of Magnesia 30 Ml Oral.Susp) 30 ml PO DAILY PRN PRN Reason: Constipation Melatonin (Melatonin 3 Mg Tablet) 6 mg PO BEDTIME PRN PRN Reason: Insomnia Methylprednisolone Sodium Succinate (Methylprednisolone Sod Succ 40 Mg/Ml Vial) 40 mg IVPUSH Q12H [facility] Last Admin: 11/26/24 08:05 Dose: 40 mg Oxcarbazepine (Oxcarbazepine 300 Mg Tablet) 300 mg PO BID [facility] Last Admin: 11/26/24 08:05 Dose: 300 mg Sodium Chloride (0.9 % Sodium Chloride Flush 3 Ml Syringe) 3 ml IVFLUSH QSHIFT [facility] Last Admin: 11/26/24 01:26 Dose: Not Given Home Medications ?Medication ?Instructions ?Recorded ?Confirmed ?Last Taken ?Type clonazepam 1 mg tablet 1 mg PO BID PRN Anxiety 02/02/23 11/01/24 08/27/24 History escitalopram oxalate 20 mg tablet 20 mg PO BEDTIME 02/02/23 11/01/24 08/27/24 History famotidine 20 mg tablet 20 mg PO BID 1111/01/24 08/27/24 History fluticasone propionate 50 1 spray intranasal DAILY PRN 02/02/23 11/01/24 08/10/24 History mcg/actuation nasal Allergy Symptoms spray,suspension metformin 500 mg tablet,extended 1,000 mg PO BID 02/02/23 11/01/24 08/27/24 History release 24 hr oxcarbazepine 300 mg tablet 300 mg PO BID 02/02/23 11/01/24 08/27/24 History trazodone 150 mg tablet 150 mg PO BEDTIME PRN Sleep 02/02/23 11/01/24 09/07/23 20:00 History atorvastatin 20 mg tablet 20 mg PO DAILY 05/31/24 11/01/24 08/27/24 History mometasone-formoterol HFA 200 2 puff inhalation BID 05/31/24 11/01/24 08/27/24 History mcg-5 mcg/actuation aerosol inhaler (Dulera) insulin glargine 100 unit/mL (3 20 unit subcut BEDTIME 08/11/24 11/01/24 08/27/24 History mL) subcutaneous pen (Lantus Solostar U-100 Insulin) lurasidone 80 mg tablet 80 mg PO BEDTIME 08/11/24 11/01/24 08/27/24 History mirtazapine 7.5 mg tablet 7.5 mg PO BEDTIME PRN insomnia 11/26/24 Unknown History Physical Exam Vital Signs: Vital Signs: Last Vital Signs Temp 98.7 F 11/26/24 09:34 Pulse 71 11/26/24 09:34 Resp 13 11/26/24 09:34 BP 116/52 L 11/26/24 09:34 Pulse Ox 91 L 11/26/24 09:34 O2 Del Method Trach Collar 11/26/24 06:11 O2 Flow Rate 8 11/26/24 09:34 Oxygen Flow Rate 2 11/25/24 19:57 BMI result Body Mass Index 39.6 Const: General: comfortable, no acute distress, alert and awake HEENT: Other: Throat not visible, patient has tracheostomy in place. Oropharynx not examined . Eyes: General: appearance normal, both eyes and all related structures Neck: Other: Tracheostomy in place Neck: Yes normal visual inspection and Yes no JVD Chest: Chest palpation & inspection: normal inspection of the chest, normal palpation of entire chest wall and no tenderness Resp: Other: Percussion note is resonant but not perceptible over the lower parts of the chest. Breath sounds are distant especially decreased over the lower parts of the chest. There are a few crepitations over the basilar areas. No wheezes. Cardio: Palpation: normal PMI Rate: regular rate Rhythm: regular rhythm Heart sounds: no gallops and no murmurs GI: Palpation (GI): Soft to palpation, nontender, No hepatosplenomegaly present, no masses and Other GI palpation findings present (Abdomen is protuberant/ ventral hernia.) Auscultation: normal bowel sounds Back/Spine/Pelvis: Other: Not examined Skin: General skin exam: no rashes or lesions noted Neuro: Other: Not examined Extrem: General: Yes normal to inspection, Yes no clubbing, cyanosis or edema and Yes no calf tenderness Psych: Appearance: grossly normal Speech and movement: Clear speech present Results Laboratory Findings 11/26/24 05:37 11/26/24 05:37 Abnormal lab findings: Abnormal Labs 11/25/24 11/25/24 11/25/24 20:01 20:45 20:46 Immature Gran % (Auto) Neut % (Auto) Lymph % (Auto) [place] % (Auto) Eos % (Auto) 4.3 H Lymph # (Auto) Abs Immat Gran (auto) VBG pH VBG HCO3 Sodium Potassium Chloride 94 L Carbon Dioxide 31 H POC Glucose 450 H* Random Glucose 441 H* Lactic Acid 2.5 H* Alkaline Phosphatase 211 H 11/25/24 11/25/24 11/26/24 20:49 22:28 05:37 Immature Gran % (Auto) 0.7 H Neut % (Auto) 91.5 H Lymph % (Auto) 6.6 L [place] % (Auto) 0.9 L Eos % (Auto) Lymph # (Auto) 0.4 L Abs Immat Gran (auto) 0.04 H VBG pH 7.45 H VBG HCO3 36 H Sodium 132 L Potassium 5.9 H D Chloride 95 L Carbon Dioxide POC Glucose 306 H Random Glucose 623 H* Lactic Acid Alkaline Phosphatase 215 H 11/26/24 08:02 Immature Gran % (Auto) Neut % (Auto) Lymph % (Auto) [place] % (Auto) Eos % (Auto) Lymph # (Auto) Abs Immat Gran (auto) VBG pH VBG HCO3 Sodium Potassium Chloride Carbon Dioxide POC Glucose 577 H* Random Glucose Lactic Acid Alkaline Phosphatase Diagnostic Findings Chest x-ray: report reviewed and image reviewed CT scan - chest: report reviewed and image reviewed Additional studies: Chest Xray and CTA of the chest is negative for pulmonary emboli. Suggestive of micro atelectasis over the basilar area. Assessment and Plan (1) Acute exacerbation of chronic obstructive pulmonary disease: Status: Acute (2) Atelectasis: Status: Acute (3) Respiratory failure with hypoxia and hypercapnia: Status: Acute Plan This patient has decided to go home and take care of herself at home she say is her is the care provider at home. Instructed to do : Trach care, may need frequent suctioning. Prednisone 40 mg a day for 5 days. Complete course of Z-Michael. Albuterol solution in the nebulizer Q 4-6 hours p.r.n.. O2 2 L/minute. Make arrangement to see her failure analysis technician, within the next 1 or 2 weeks. Patient does have Dulera inhaler at home she can continue 2 puffs b.i.d. But considering chronic obstructive pulmonary disease with tracheostomy she may be better of with ipratropium-albuterol solution to be use Q 6 hours while awake And addition of budesonide 0.5 mg in the nebulizer b.i.d.. Patient has chronic hypoxemic and hypercapnic respiratory failure. She is doing okay with O2 2 L/minute. She may benefit from use of acetazolamide 125 or 250 mg p.o. once a day. This can be considered as outpatient. Procedures Date of Service Date of Service: 11/26/24
[2024-11-26 12:37] LABS: Glucose, Whole Blood 424 mg/dL (60-115)
--- NOTE | 2024-11-26 12:41 | PC.NURSE ---
Pt States to RN I think I made a mistake. I don't want to leave AMA. POC blood sugar 424. Hospitalist notified. New order for 10 units Reg insulin.
--- NOTE | 2024-11-26 12:43 | HO.PM.IMPN ---
Subjective Subjective Date of Service: 11/26/24 Interval History: sob Physical Exam Exam: Exam: General: AO X 3, inacute distress Resp: wheezing bilateral, accessory muscles used CVS: S1,S2,RRR GI: soft, non tender, non distended Neuro: motor grossly intact, alert Psych: appropriate affect, appropriate insight Vital Signs: Vital Signs: Last Vital Signs Temp 97.9 F 11/26/24 12:26 Pulse 90 11/26/24 12:26 Resp 18 11/26/24 12:26 BP 147/81 H 11/26/24 12:26 Pulse Ox 91 L 11/26/24 12:26 O2 Del Method Trach Collar 11/26/24 06:11 O2 Flow Rate 2 11/26/24 12:26 Oxygen Flow Rate 2 11/25/24 19:57 BMI result Body Mass Index 39.6 Objective Data Active Medications Acetaminophen (Acetaminophen 325 Mg Tablet) 650 mg PO Q6H PRN PRN Reason: Pain, Mild 1-3,fever,headache Last Admin: 11/25/24 23:28 Dose: 650 mg Documented By: MATTY Albuterol/Ipratropium (Albuterol/Iprat 2.5/0.5mg 3 Ml Ampul.Neb) 3 ml INHALE RQ4H WHILE AWAKE [facility] Last Admin: 11/26/24 11:30 Dose: Not Given Documented By: GRAZYNA Non-Admin Reason: pt asleep, attempted to wake up x5 Albuterol/Ipratropium (Albuterol/Iprat 2.5/0.5mg 3 Ml Ampul.Neb) 3 ml INHALE Q4H PRN PRN Reason: Shortness of Breath/Wheezing Azithromycin (Azithromycin 500 Mg Tablet) 500 mg PO Q24H [facility] Last Admin: 11/25/24 22:42 Dose: 500 mg Documented By: SAMANTHA Benzonatate (Benzonatate 100 Mg Capsule) 100 mg PO TID PRN PRN Reason: Cough Calcium Carbonate (Calcium Carbonate 750 Mg Tab.Chew) 750 mg PO Q4H PRN PRN Reason: Heartburn Clonazepam (Clonazepam 0.5 Mg Tablet) 0.5 mg PO BID PRN PRN Reason: Anxiety Dextrose (Dextrose 50 % 25 Gm/50 Ml Syringe) 25 gm IVPUSH Q15M PRN; Protocol PRN Reason: per Hypoglycemia Standing Ord. Enoxaparin Sodium (Enoxaparin Sodium 40 Mg/0.4 Ml Syringe) 40 mg SUBCUT Q24H [facility] Last Admin: 11/25/24 22:24 Dose: Not Given Documented By: SAMANTHA Non-Admin Reason: Patient Refused Escitalopram Oxalate (Escitalopram Oxalate 20 Mg Tablet) 20 mg PO BEDTIME [facility] Last Admin: 11/25/24 22:42 Dose: 20 mg Documented By: SAMANTHA Gabapentin (Gabapentin 300 Mg Capsule) 300 mg PO TID [facility] Last Admin: 11/26/24 08:05 Dose: 300 mg Documented By: MARCO Glucose (Glucose Gel 15 Gm Gel..Gram.) 15 gm PO Q15M PRN; Protocol PRN Reason: per Hypoglycemia Standing Ord. Insulin Glargine (Insulin Glargine,Hum.Rec.Anlog 100 Unit/Ml 10 Ml Vial) 10 unit SUBCUT BEDTIME [facility] Last Admin: 11/25/24 22:42 Dose: 10 unit Documented By: SAMANTHA Insulin Human Lispro (Insulin Lispro 100 Unit/Ml 3 Ml Vial) 0 unit SUBCUT QIDACHS [facility]; Protocol Last Admin: 11/26/24 08:29 Dose: 10 unit Documented By: MARCO Insulin Human Regular (Insulin Regular, Human 100 Unit/Ml 10 Ml Vial) 10 unit IVPUSH ONCE ONE Stop: 11/26/24 12:39 Lurasidone HCl (Lurasidone Hcl 80 Mg Tablet) 80 mg PO BEDTIME [facility] Last Admin: 11/25/24 22:42 Dose: 80 mg Documented By: SAMANTHA Magnesium Hydroxide (Milk Of Magnesia 30 Ml Oral.Susp) 30 ml PO DAILY PRN PRN Reason: Constipation Melatonin (Melatonin 3 Mg Tablet) 6 mg PO BEDTIME PRN PRN Reason: Insomnia Methylprednisolone Sodium Succinate (Methylprednisolone Sod Succ 40 Mg/Ml Vial) 40 mg IVPUSH Q12H [facility] Last Admin: 11/26/24 08:05 Dose: 40 mg Documented By: MARCO Oxcarbazepine (Oxcarbazepine 300 Mg Tablet) 300 mg PO BID [facility] Last Admin: 11/26/24 08:05 Dose: 300 mg Documented By: MARCO Sodium Chloride (0.9 % Sodium Chloride Flush 3 Ml Syringe) 3 ml IVFLUSH QSHIFT [facility] Last Admin: 11/26/24 09:48 Dose: Not Given Documented By: MARCO Non-Admin Reason: Patient Refused Labs 11/26/24 05:37 11/26/24 05:37 Labs: Laboratory Results - last 24 hr 11/25/24 11/25/24 11/25/24 20:01 20:45 20:46 MCV 84.9 MCH 28.1 MCHC 33.1 RDW 12.8 Plt Count 250 MPV 9.9 Immature Gran % (Auto) 0.1 Neut % (Auto) 59.1 Lymph % (Auto) 30.6 [place] % (Auto) 5.6 Eos % (Auto) 4.3 H Baso % (Auto) 0.3 Lymph # (Auto) 2.4 [place] # (Auto) 0.4 Eos # (Auto) 0.3 Baso # (Auto) 0.0 Abs Immat Gran (auto) 0.01 Absolute Neuts (auto) 4.7 Absolute Nucleated RBC 0.000 Nucleated RBC % (auto) 0.0 Smear Tech's Comments VBG pH VBG pCO2 VBG pO2 VBG HCO3 VBG O2 Saturation VBG Base Excess Anion Gap 15 Estim Creat Clear Calc 69.4 Estimated GFR 55 POC Glucose 450 H* Random Glucose 441 H* Lactic Acid 2.5 H* Lactic Acid F/U @ 2Hr Calcium 9.0 Magnesium 2.2 Total Bilirubin 0.3 Direct Bilirubin 0.1 AST 16 ALT 21 Alkaline Phosphatase 211 H Troponin I High Sens < 2.7 B-Natriuretic Peptide 46 Total Protein 6.7 Albumin 3.8 Beta-Hydroxybutyrate 0.06 11/25/24 11/25/24 11/25/24 20:49 22:28 23:44 MCV MCH MCHC RDW Plt Count MPV Immature Gran % (Auto) Neut % (Auto) Lymph % (Auto) [place] % (Auto) Eos % (Auto) Baso % (Auto) Lymph # (Auto) [place] # (Auto) Eos # (Auto) Baso # (Auto) Abs Immat Gran (auto) Absolute Neuts (auto) Absolute Nucleated RBC Nucleated RBC % (auto) Smear Tech's Comments VBG pH 7.45 H VBG pCO2 52 VBG pO2 65 VBG HCO3 36 H VBG O2 Saturation 93.0 VBG Base Excess 10.9 Anion Gap Estim Creat Clear Calc Estimated GFR POC Glucose 306 H Random Glucose Lactic Acid Lactic Acid F/U @ 2Hr 1.8 Calcium Magnesium Total Bilirubin Direct Bilirubin AST ALT Alkaline Phosphatase Troponin I High Sens B-Natriuretic Peptide Total Protein Albumin Beta-Hydroxybutyrate 11/26/24 11/26/24 11/26/24 05:37 08:02 12:28 MCV 85.0 MCH 27.6 MCHC 32.5 RDW 12.7 Plt Count 245 MPV 10.2 Immature Gran % (Auto) 0.7 H Neut % (Auto) 91.5 H Lymph % (Auto) 6.6 L [place] % (Auto) 0.9 L Eos % (Auto) 0.0 Baso % (Auto) 0.3 Lymph # (Auto) 0.4 L [place] # (Auto) 0.1 Eos # (Auto) 0.0 Baso # (Auto) 0.0 Abs Immat Gran (auto) 0.04 H Absolute Neuts (auto) 5.4 Absolute Nucleated RBC 0.000 Nucleated RBC % (auto) 0.0 Smear Tech's Comments VERIFIED VBG pH VBG pCO2 VBG pO2 VBG HCO3 VBG O2 Saturation VBG Base Excess Anion Gap 17 Estim Creat Clear Calc 77.6 Estimated GFR > 60 POC Glucose 577 H* 424 H* Random Glucose 623 H* Lactic Acid Lactic Acid F/U @ 2Hr Calcium 8.7 Magnesium Total Bilirubin 0.4 Direct Bilirubin AST 19 ALT 25 Alkaline Phosphatase 215 H Troponin I High Sens B-Natriuretic Peptide Total Protein 7.2 Albumin 3.9 Beta-Hydroxybutyrate Assessment and Plan (1) Bipolar depression: Status: Acute Plan 54f PMH hypertension, hyperlipidemia, bipolar, diabetes, obesity, chronic hypoxic respiratory failure due to COPD status post tracheostomy, history of cardiac arrest, history of pulmonary embolism no longer on anticoagulation presented with shortness of breaths Acute on chronic hypoxic respiratory failure due to COPD with acute decompensation Initially planning to leave against medical advice but now willing to stay Continue IV Solu-Medrol, DuoNebs, azithromycin Pulmonary appreciated Diabetes with hyperglycemia Continue basal bolus insulin, monitor Morbid obesity Weight loss recommended Mood disorder Continue mood stabilizers DVT prophylaxis with Lovenox Full Code reason for continued hospitalization: Hypoxia and severe hyperglycemia Quality Stroke Does the patient have a stroke diagnosis?: No VTE Prior VTE?: No VTE Risk Level:: Medical - moderate - high VTE Device Contraindication: Treatment Not Indicated VTE Drug Contraindication: N/A - Med Ordered
--- NOTE | 2024-11-26 13:55 | PHA.MEDREC ---
Addendum entered by Juan J Medellin PharmD 11/26/24 14:01: reviewed Addendum entered by Debby Thomas 11/26/24 13:58: Patient is no longer taking Mirtazapine 7.5 mg. Original Note: Pharmacy Consult ? Medication Reconciliation Pharmacy has completed the medication reconciliation. Patient was able to confirm all of her medications. Patient states she in not taking Cetirizine 10 mg, Metformin 1,000 mg, and Prednisone 50 mg. Patient confirmed Lantus is 20 units at bedtime and Insulin Lispro is per sliding scale TID. Patient last had her medications 2 days ago.
[2024-11-26 14:04] LABS: Glucose, Whole Blood 326 mg/dL (60-115)
--- NOTE | 2024-11-26 16:17 | MHC.CM.PN ---
Pt. lives with her , he helps her with ADL's and she has a [employer] STRIPPER 7 hrs a week from [facility]. Her , Casimiro is her HCP, copy is on file. PCP confirmed: Dr. Hackett. Pt. has home O2 from [facility] in [place]. She will need BLS home at [place], DCP home with services. CM to follow for DC needs.
[2024-11-26 16:40] LABS: Glucose, Whole Blood 363 mg/dL (60-115)
[2024-11-26] MEDS: 0.9 % Sodium Chloride Flush 3 ML SYRINGE IVFLUSH ×2 (17:08→20:21)
[2024-11-26 20:27] LABS: Glucose, Whole Blood 416 mg/dL (60-115)
[2024-11-26 20:27] LABS: Glucose, Whole Blood 428 mg/dL (60-115)
[2024-11-26] MEDS: Insulin Glargine,Hum.rec.anlog 100 UNIT/ML 10 ML VIAL 20 UNIT SUBCUT (20:33)
[2024-11-26] MEDS: Insulin Glargine,Hum.rec.anlog 100 UNIT/ML 10 ML VIAL 10 UNIT SUBCUT (21:26)
[2024-11-26 23:46] LABS: Glucose, Whole Blood 372 mg/dL (60-115)
[2024-11-27 03:21] VITALS: BP 122/59; PULSE 73; RESP 18; TEMP 36; O2SAT 93
[2024-11-27] MEDS: guaiFEN/Codeine SF 200/20/10ML 10 ML LIQUID 5 ML PO (04:49)
[2024-11-27 06:12] LABS: Glucose, Whole Blood 339 mg/dL (60-115)
[2024-11-27 06:34] LABS: Hematocrit 38.8 % (37.0-47.0); Hemoglobin 12.5 g/dl (12.0-16.0); Mean Corpuscular HGB Conc 32.2 g/dl (31.0-35.0); Mean Corpuscular Hemoglobin 27.3 pg (27.0-33.0); Mean Corpuscular Volume 84.7 fL (80.0-98.0); NRBC Abs Auto 0.000 X10*3/uL (0.0-0.012); NRBC Pct Auto 0.0 /100WBC (0.0-0.2); Platelet Count 285 X10*3/uL (160-400); Red Blood Count 4.58 X10*6/uL (4.20-5.50); White Blood Count 7.9 X10*3/uL (4.8-10.8)
[2024-11-27 06:56] LABS: Anion Gap 12 (12-20); Blood Urea Nitrogen 26 mg/dL (9-16); Calcium 8.9 mg/dL (8.4-10.2); Carbon Dioxide 31 mmol/L (22-29); Chloride 96 mmol/L (96-108); Creatinine Clr Calc Pharmacy 66.4; Estimated Glomerular Filt Rate 53; Potassium 4.4 mmol/L (3.3-5.1); Sodium 135 mmol/L (135-145)
[2024-11-27 07:19] LABS: Glucose, Whole Blood 333 mg/dL (60-115)
[2024-11-27 07:40] VITALS: BP 149/74; PULSE 72; RESP 20; TEMP 36.6; O2SAT 93
[2024-11-27] MEDS: 0.9 % Sodium Chloride Flush 3 ML SYRINGE IVFLUSH (07:42)
[2024-11-27 10:58] LABS: Glucose, Whole Blood 251 mg/dL (60-115)
[2024-11-27 11:11] VITALS: BP 133/80; PULSE 66; RESP 20; TEMP 36.8; O2SAT 97
== END 2024-11-27 15:13 | disposition home or self-care (01) | DRG 140 ==
LOC: HO.ED 21:22 → HO.EDOVER 21:54 → HO.IMC 11-26 07:48
PROVIDERS: Admitting Provider Hospitalist; Emergency Provider Emergency Medicine Emergency Medical Services; PCP Internal Medicine; Visit Provider Internal Medicine
DX: J44.1 Chronic obstructive pulmonary disease with (acute) exacerbation (principal); J96.21 Acute and chronic respiratory failure with hypoxia; Z86.74 Personal history of sudden cardiac arrest; J45.901 Unspecified asthma with (acute) exacerbation; J98.11 Atelectasis; Z93.0 Tracheostomy status; E11.65 Type 2 diabetes mellitus with hyperglycemia; F39 Unspecified mood [affective] disorder; E66.01 Morbid (severe) obesity due to excess calories; Z68.38 Body mass index [BMI] 38.0-38.9, adult; Z71.3 Dietary counseling and surveillance; Z79.4 Long term (current) use of insulin; Z79.52 Long term (current) use of systemic steroids; Z79.899 Other long term (current) drug therapy
CPT/HCPCS: 36415; 71045; 71275; 80048; 80053; 80076; 82010; 82803; 82947; 83605; 83735; 83880; 84484; 85025; 85027; 87040; 93005; 94640; 99285; J0692; J1171; J1650; J1885; J2919; J3475; Q9967

== ENCOUNTER → 2024-11-25 20:07 | Outpatient (BNV) | payer OTHER, SELFPAY | PROVIDERS: Admitting Provider Hospitalist; Emergency Provider Emergency Medicine Emergency Medical Services; PCP Internal Medicine; Visit Provider Radiology Diagnostic Radiology | DX: J90 Pleural effusion, not elsewhere classified (principal) | CPT/HCPCS: 71045; 71275 ==

== ENCOUNTER → 2024-11-25 20:09 | Outpatient (BNV) | payer OTHER, SELFPAY | PROVIDERS: Admitting Provider Hospitalist; Emergency Provider Emergency Medicine Emergency Medical Services; PCP Internal Medicine; Visit Provider Internal Medicine | DX: R94.31 Abnormal electrocardiogram [ECG] [EKG] (principal); R07.9 Chest pain, unspecified | CPT/HCPCS: 93010 ==

== ENCOUNTER → 2024-11-25 21:42 | Outpatient (BNV) | payer OTHER, SELFPAY | PROVIDERS: Admitting Provider Hospitalist; Emergency Provider Emergency Medicine Emergency Medical Services; PCP Internal Medicine; Visit Provider Internal Medicine | DX: J44.1 Chronic obstructive pulmonary disease with (acute) exacerbation (principal); J98.11 Atelectasis; J96.91 Respiratory failure, unspecified with hypoxia; J96.92 Respiratory failure, unspecified with hypercapnia | CPT/HCPCS: 99222 ==

== ENCOUNTER → 2024-11-25 21:42 | Outpatient (BNV) | payer OTHER, SELFPAY | PROVIDERS: Admitting Provider Hospitalist; Emergency Provider Emergency Medicine Emergency Medical Services; PCP Internal Medicine; Visit Provider Internal Medicine | DX: J44.9 Chronic obstructive pulmonary disease, unspecified (principal) | CPT/HCPCS: 99223; 99233; 99239 ==

== ENCOUNTER 2024-12-05 11:04 | Outpatient (AMB) | payer OTHER, SELFPAY ==
--- NOTE | 2024-12-05 11:13 | MHC.OFFVIS ---
Vital Signs 12/05/24 11:17 Height 5 ft 3 in Weight 219 lb 2.232 oz BMI 38.8 BP 116/58 L Blood Pressure Location Rt brachial Position Sitting Pulse 93 Pulse Source Pulse Oximeter Intake Visit Reasons: Type 2 diabetes mellitus with hyperglycemia Intake Note: New patient internally referred by PCP for T2DM. Last Diabetic Eye exam: 8 months ago, [facility] Last Podiatry Visit: Does not see a Telephone Operator Random Glucose: 287 mg/dl Hgb A1C: 13.4% 11/01/2024 Manager Business Planning Required: No Accompanied by: Self / Same As Patient Allergies pantoprazole Allergy (Mild, Verified 12/05/24 11:18) Redness of Skin HPI Comments Details: 54 YO F who is seen in consultation for T2DM at the request of PCP. Just completed couse of prednisone Initially diagnosed with T2DM in 8 yrs ago. Never saw endo Was initially started on treatment with []. Current regimen . Lantus 20 units . Humalog 15 units premeals Checks sugars 0 times per day. Unfortunately, patient did not bring glucometer, log book or sensor to visit Reports low sugars rarely . Treats lows with drink milk . Checks sugar after to ensure it is rising. Treats according to rule of 15's. Most recent A1C 13.4 , [down] from prior [] on []. Family history of T2DM in grandmother had Type 2 DM . Has eyes checked yearly, last eye exam 8 mos , denies retinopathy. Has neuropathy, , sees podiatry next visit next mo . Denies nephropathy,Not on JEFF/ARB. . Has HLD, on statin. Denies CAD. Not Had diabetes education. No tobacco use . No heavy ETOH use [facility] Medical History (Updated 12/05/24 @ 00:02 by Background Daemon) Respiratory failure with hypoxia and hypercapnia Atelectasis Lumbar degenerative disc disease Small bowel obstruction Uncontrolled diabetes mellitus with hyperglycemia Obesity (BMI 30-39.9) Bipolar depression Anxiety Insomnia Tracheostomy present Pure hypercholesterolemia Diabetes mellitus Asymptomatic bacteriuria Morbid obesity Partial small bowel obstruction Tracheostomy dependent History of cardiac arrest Wound drainage Takotsubo cardiomyopathy Kidney stones UTI (urinary tract infection) Bipolar 1 disorder Asthma Substance abuse Surgical History History of tracheostomy S/P ureteral stent placement H/O exploratory laparotomy S/P cholecystectomy Family History Mother No pertinent family history Father No pertinent family history Social History Household Members: Spouse Household Members Other:: 1 Housing: Apartment Do you presently have visiting nurse or other home services: Yes Alcohol intake: former Comment: stayed in ed Patient Tobacco Use Status: Never used Tobacco e-Cigarette/Vaping Use: Never Used Second Hand Smoke Exposure: No Advance Directives Date on File: 02/04/23 service: No Current occupational status: disabled Cognitive needs: No Hearing needs: No Vision needs: Yes Physical Exam Vital Signs: Last Vital Signs Pulse 93 12/05/24 11:17 BP 116/58 L 12/05/24 11:17 BMI result Body Mass Index 38.8 Absence of Cushingoid features. Absence of acromegalic features. Neck exam reveals nl size thyroid about 15 gms. No thyroid nodules palpable. No carotid bruits present. Lungs CTA. Heart S1 S2, Reg R/R. No M/R/ G. Skin exam reveals absence of vitiligo or acanthosis nigricans. Abdominal exam reveals Soft NT/ND with NA BS.There is a circular ulcerated lesion on abomen with purulent exudate No organomegaly present. Neck Other: . Extrem Other: Visual exam of foot performed. No ulcerations or open lesions. No onchomycosis, no callouses.Pulses 2 + distally Sensation intact to monofilament exam. Vibratory sensation sensed is decreased i with 128 Hz tuning fork Results Reviewed Results Reviewed: Laboratory Last Values Glucose (Clinic) 287 mg/dL (60-115) H 12/05/24 11:25 Assessment & Plan Assessment & Plan (1) Uncontrolled diabetes mellitus with hyperglycemia: Code(s): E11.65 - Type 2 diabetes mellitus with hyperglycemia Category: Medical Qualifiers: Diabetes mellitus type: type 2 Qualified Code(s): E11.65 - Type 2 diabetes mellitus with hyperglycemia Plan: This is a 54-year-old white female with a history of type 2 diabetes in the setting of severe COPD and prior history of pancreatitis being treated with basal-bolus insulin with poor glycemic control and no known microvascular or macrovascular complications Plan is that the patient check her point of cares pre and post meals. I will attempt to initiate a sensor Myesha 3+. Can not make any changes to the regimen because have no data at this point. We will make appointment with the software educator and gluing machine operator. We will have patient check labs ordered by primary care provider should just lipid profile microalbumin to creatinine ratio . Had extensive discussion with the patient regarding the correlation of poor glycemic control to development and progression of complications. Sent pt urgently to wound care to have abdominal wound evaluated. Orders: Referrals Diabetes Education Referral E11.65 - Type 2 diabetes mellitus with hyperglycemia Nutrition/Dietitian Referral E11.65 - Type 2 diabetes mellitus with hyperglycemia Wound Care Referral T81.321A - Disruption or dehiscence of closure of internal operation (surgical) wound of abdominal wall muscle or fascia, initial encounter Medications: New FreeStyle Myesha 3 Plus Sensor (blood-glucose sensor) As directed change every 15 days 2 ea 4RF NS Coding Level of Care Code New Pt Level 4 (59998) Diagnoses Uncontrolled type 2 diabetes mellitus with hyperglycemia E11.65 Diabetes mellitus type: type 2
[2024-12-05 11:17] VITALS: BP 116/58; PULSE 93; BMI 38.8
[2024-12-05 11:32] LABS: Glucose, Whole Blood 287 mg/dL (60-115)
--- OUTSIDE RECORDS SUMMARY | 2024-12-05 14:14 | XMS_ITS | Clinical Summary ---
Author Organization [facility] Address [address] [facility] [address] [place] [address] Phone Care Team Providers Care Re Examiner Name Role Phone Unavailable Primary Care Provider [...] PCV) 020 Influenza Vaccine (#1) 2024 Insurance [facility] Medicaid [facility] Medicaid
--- OUTSIDE RECORDS SUMMARY | 2024-12-05 14:14 | XMS_ITS | Clinical Summary ---
Author Organization [facility] [address] [place] [address] [place] [address] [place] [address] Phone Care Team Providers Care Apple Peeler Operator Name Role Phone Megan Anderson MD [...] 08/05/2021 DVT of deep femoral vein, right ([facility] V24, [facility] V28) 05/28/2021 Assessment & Plan (02/02/2024 12:11 [...] complication, without long-term current use of insulin ([facility] V24, [facility] V28) 01/20/2018 Assessment & Plan (02/02/2024 12:11 [...] 4 months. Narcotic dependence, in vasu ssion ([facility] V24, [facility] V28) 11/02/2011 Overview (01/11/2024): On methadone Bilateral [...] 6mo and older 11/26/2019,11/13/2019,11/04/2018 PPD Test 08/30/2018 [employer] SARS-CoV-2 COVID-19, mRNA, LNP-S, preservative free 04/20/2020,04/03/2020 [...] essential hypertension PEA (Pulseless electrical ac tivity) ([facility] V24, [facility] V28) 11/06/2020 DX:PEA (Pulseless electrica l activity) ([facility]); COMMENT: Found at home PEA and apneic [facility] admit 11/01/20 Pulmonary embolism (CMS/HCC V24, [facility] V28) 05/28/2021 DX:Pulmonary embolism ([facility]) 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 DX:Necr otizing pancreatitis; COMMENT: [...] Laterality Modality Ultrasound us Provider [employer] [facility] PROCEDURES Final Result * Annual BMP Blood Test (09/23/2023) [facility] Annual BMP Blood Test abstracted Result [facility] Provider HEALTH MAINTENANCE Final Result * (ABNORMAL) Lipid panel (09/23/2023) [facility] LDL/HDL Ratio 5(A) 0 - 4 Triglycerides 418(A) 0 - 150 mg/dL Cholesterol 149 0 - 200 mg/dL HDL 33(A) >=40 mg/dL LDL Cholesterol 33 0 - 100 mg/dL Blood Venous blood specimen / Unknown Result [facility] Provider LAB BLOOD ORDERABLES Laila l Result * Depression Screening (07/13/2023) [facility] Depression Screening abstracted Result [facility] Provider HEALTH MAINTENANCE Final Result * (ABNORMAL) Hemoglobin A1c (07/06/2022) [facility] Hemoglobin A1C 9.7(A) <=6.5 % Blood Venous blood specimen / Unknown Result [facility] Provider LAB BLOOD ORDERABLES Laila l Result * Cervical Cancer Screening: HPV (06/17/2022) [facility] Cervical Cancer Screening: HPV negative, abstracted Result [facility] Provider HEALTH MAINTENANCE Final Result * Hepatitis C Screening (11/14/2008) [facility] Hepatitis C Screening abstracted Result [facility] Provider HEALTH MAINTENANCE Final Result * Urine Albumin Creatinine Ratio (12/11/2004) [facility] Urine Albumin Creatinine Ratio abstracted Result [facility] Provider HEALTH MAINTENANCE Final Result from Last 3 Months or Most Recently Relevant to Health Maintenance Insurance [employer] Care Teams Apple Peeler Operator Relationship Specialty Start Date End Date Megan Anderson MD [address] [place] [phone] PCP - General Internal Medicine 10/12/21
--- OUTSIDE RECORDS SUMMARY | 2024-12-05 14:14 | XMS_ITS | Patient Health Record ---
Author Organization [facility] Address [address] [place] [address] Care Team Providers Care Spd Tech Name Role Phone Angie Wing Primary Care Provider Unavailab Aleksey King Unavailable [phone] Viraj Copeland Unavailable Unavailable Allergies Allergen (clinical [...] Problem Status W/U Status Risk Notes Problem [id number] Gastroesophageal reflux disease without esophagitis (K21.9) Active confirmed Problem [id number] Pharyngoesophage al dysphagia (R13.14) Active confirmed Plan Of Treatment Future Test Test Name Order Date UPPER GI ENDOSCOPY [place] DILATION OF ESOPH 02/27/2015 Insurance Providers Payer Name Payer Address Payer Phone Subscriber Number Group Number Insured Name Patient Relationship to Insured Coverage Start Date Coverage End Date [facility] [facility] [address] [address] [place], [place] [id number] SAKSHI BUSH Self - patient is the insured MEDICAID OF [facility] [address] [place] [id number] [phone] [id number] RACHELLE SAKSHI Self - patient is the insured Medical (General) History Medical History History ICD Code GERD hypertension asthma depression/bipolar Denies UT,DM,CVA,renal disease Back pain Surgical History Surgery Date(Month/Year) spinal fusion tonsillectomy and adenoidectomy appendectomy
== END 2024-12-05 12:16 | disposition home or self-care (01) ==
LOC: HO.ENCR 11:05
PROVIDERS: PCP Internal Medicine; Visit Provider Internal Medicine Endocrinology, Diabetes & Metabolism
DX: E11.65 Type 2 diabetes mellitus with hyperglycemia (principal)
CPT/HCPCS: 99204

== ENCOUNTER → 2024-12-05 11:04 | Outpatient (BNVA) | payer OTHER, SELFPAY | PROVIDERS: PCP Internal Medicine; Visit Provider Internal Medicine Endocrinology, Diabetes & Metabolism | DX: E11.65 Type 2 diabetes mellitus with hyperglycemia (principal); E11.40 Type 2 diabetes mellitus with diabetic neuropathy, unspecified; E78.5 Hyperlipidemia, unspecified; T81.321A Disruption or dehiscence of closure of internal operation (surgical) wound of abdominal wall muscle or fascia, initial encounter; Z79.4 Long term (current) use of insulin | CPT/HCPCS: 82947; 99202 ==

== ENCOUNTER 2024-12-30 15:18 | Inpatient (IN) | payer OTHER, SELFPAY ==
[2024-12-30] VITALS (10 sets, daily range): BP systolic 117–140; BP diastolic 68–88; PULSE 77–97; RESP 13–24; TEMP 36.8–37.3; O2SAT 93–98; BMI 40.7
--- NOTE | ~2024-12-30 | XR_ITS ---
CLINICAL HISTORY: SOB 1 view chest x-ray Comparison: CT/REG/SR - CT ANGIO CHEST PE PROTOCOL - 11/25/24 22:03 EDT CR - XR CHEST 1V - 11/25/24 20:42 EDT Findings: Lungs are mildly hypoinflated. Cardiac silhouette is at the upper limits of normal for size. Continued elevation and eventration of the right hemidiaphragm. Mild streaky density in the left lung base as before. No pneumothorax. IMPRESSION: Left basilar consolidation, most characteristic of atelectasis. This document has been electronically signed by: Saulo Laguna MD on 12/30/2024 16:56:11
--- NOTE | 2024-12-30 15:22 | ED.SOB ---
HPI - SOB/Dyspnea General Chief Complaint: Dyspnea Stated Complaint: DIFF BREATHING,?BLOCKED TRACH,NO RELIEF W/SUCTION Time Seen by Provider: 12/30/24 15:21 Source: patient, EMS and old records reviewed Mode of arrival: EMS Limitations: no limitations History of Present Illness ED Provider: DR. Edwards HPI Narrative: 54-year-old female PMHx HTN, HLD, dm, history of cardiac arrest, pancreatitis, chronic respiratory failure, history of tracheostomy, asthma on chronic prednisone, required 2 L of supplemental oxygen at home presented with difficulty breathing x2 days, no fever, no chills, no recent travel. Patient was supposed to change her tracheostomy last week at the clinic but missed appointment, patient require frequent trach suction. Related Data Home Medications ?Medication ?Instructions ?Recorded ?Confirmed clonazepam 1 mg tablet 1 mg PO BID PRN Anxiety 02/02/23 11/26/24 escitalopram oxalate 20 mg tablet 20 mg PO BEDTIME 02/02/23 11/26/24 famotidine 20 mg tablet 20 mg PO BID 02/02/23 11/26/24 fluticasone propionate 50 1 spray intranasal DAILY PRN 02/02/23 11/26/24 mcg/actuation nasal Allergy Symptoms spray,suspension oxcarbazepine 300 mg tablet 300 mg PO BID 02/02/23 11/26/24 trazodone 150 mg tablet 150 mg PO BEDTIME PRN Sleep 02/02/23 11/26/24 atorvastatin 20 mg tablet 20 mg PO DAILY 05/31/24 11/26/24 mometasone-formoterol HFA 200 2 puff inhalation BID 05/31/24 11/26/24 mcg-5 mcg/actuation aerosol inhaler (Dulera) insulin glargine 100 unit/mL (3 20 unit subcut BEDTIME 08/11/24 11/26/24 mL) subcutaneous pen (Lantus Solostar U-100 Insulin) lurasidone 80 mg tablet 80 mg PO BEDTIME 08/11/24 11/26/24 Previous Rx's ?Medication ?Instructions ?Recorded blood sugar diagnostic (FreeStyle #100 ea 07/10/24 Lite Strips) blood-glucose meter (FreeStyle #1 ea 07/10/24 Lite Meter kit) lancets 28 gauge (FreeStyle #100 ea 07/10/24 Lancets) insulin lispro 100 unit/mL 1 sliding scale dose subcut TIDAC 08/21/24 subcutaneous pen 30 days #15 mL albuterol sulfate 90 mcg/actuation 2 puff inhalation Q4H PRN wheezing 10/26/24 aerosol inhaler (Ventolin HFA) #8.5 grams gabapentin 300 mg capsule 300 mg PO TID 30 days #90 caps 11/01/24 azithromycin 500 mg tablet 500 mg PO Q24H 5 days #5 tabs 11/26/24 prednisone 20 mg tablet 40 mg (2 x 20 mg) PO DAILY #10 tabs 11/26/24 FreeStyle Myesha 3 Plus Sensor #2 ea 12/05/24 (blood-glucose sensor) ibuprofen 800 mg tablet 800 mg PO Q8H PRN pain #90 tabs 12/13/24 fexofenadine 180 mg tablet 180 mg PO DAILY PRN allergy 12/19/24 symptoms 30 days #30 tabs promethazine 25 mg tablet 25 mg PO DAILY PRN nausea #30 tabs 12/19/24 Allergies Allergy/AdvReac Type Severity Reaction Status Date / Time pantoprazole Allergy Mild Redness of Verified 12/30/24 15:32 Skin Review of Systems Review of Systems: All other systems are reviewed and are negative Constitutional: Reports as per HPI and Reports no additional constitutional complaints Eyes: Reports as per HPI and Reports no additional eye complaints Reports system reviewed and no additional complaints, except as documented Cardiovascular: Reports as per HPI and Reports no additional cardiovascular complaints Respiratory: Reports as per HPI and Reports no additional respiratory complaints Gastrointestinal: Reports as per HPI and Reports no additional gastrointestinal complaints Genitourinary: Reports no additional female genitourinary complaints Musculoskeletal: Reports no additional musculoskeletal complaints Skin/Breast: Reports system reviewed and no additional complaints, except as docu Psychiatric: Reports no additional psychiatric complaints Endocrine: Reports no additional endocrine complaints Hematologic/Lymphatic: Reports no additional hematologic/lymphatic complaints Allergic/Immunologic: Reports no additional allergic/immunologic complaints Reports system reviewed and no additional complaints, except as documented and Reports Abnormal speech present [facility] Past Medical History Medical History Respiratory failure with hypoxia and hypercapnia Atelectasis Lumbar degenerative disc disease Small bowel obstruction Uncontrolled diabetes mellitus with hyperglycemia Obesity (BMI 30-39.9) Bipolar depression Anxiety Insomnia Tracheostomy present Pure hypercholesterolemia Diabetes mellitus Asymptomatic bacteriuria Morbid obesity Partial small bowel obstruction Tracheostomy dependent History of cardiac arrest Wound drainage Takotsubo cardiomyopathy Kidney stones UTI (urinary tract infection) Bipolar 1 disorder Asthma Substance abuse Surgical History History of tracheostomy S/P ureteral stent placement H/O exploratory laparotomy S/P cholecystectomy Family History Family History Mother No pertinent family history Father No pertinent family history Social History Social History Household Members: Spouse Household Members Other:: 1 Housing: Apartment Do you presently have visiting nurse or other home services: Yes Alcohol intake: former Comment: stayed in ed Patient Tobacco Use Status: Never used Tobacco Smoked in Last 30 Days: No e-Cigarette/Vaping Use: Never Used Second Hand Smoke Exposure: No Use of substances other than those prescribed or required for medical reasons: No Advance Directives: Yes Advance Directives on File: Yes Advance Directives Date on File: 02/04/23 service: No Current occupational status: disabled Cognitive needs: No Hearing needs: No Vision needs: Yes Physical Exam Vital Signs: Vital Signs: Last Vital Signs Temp 99.1 F 12/30/24 15:20 Pulse 96 12/30/24 16:18 Resp 20 12/30/24 16:18 BP 131/72 12/30/24 15:20 Pulse Ox 95 12/30/24 16:18 O2 Del Method High Flow Nasal C annula 12/30/24 16:18 FiO2 30 12/30/24 16:18 Oxygen Flow Rate 2 12/30/24 15:20 BMI result Body Mass Index 40.7 Vital signs have been reviewed and appear to be correct. Blood pressure elevated. Heart rate normal. Respiratory rate normal. Temperature normal. Oxygen saturation normal. Appearance: Alert. Oriented X3. No acute distress. Head: Normal external exam. Normocephalic. Atraumatic. No Alberts signs noted. No raccoon eyes noted Eyes: PERRLA. EOMI. Conjunctiva and sclera normal. Eyelids normal. ENT: TM's Normal. Pharynx normal. Uvula midline. Moist mucous membranes. No trismus noted. No drooling noted. No muffled voice noted. Neck: Normal inspection. Neck supple. FROM. No adenopathy. Thyroid Normal. No meningeal signs. No neck mass noted. CVS: Normal heart rate and rhythm. Heart sound normal. No murmurs noted. Pulses normal throughout. Respiratory: Mild expiratory wheezing with prolonged expiration. Chest nontender. No accessory muscle usage noted or decreased air movement noted. Abdomen: Soft and nontender. Bowel sounds normal in all 4 quadrants. No distention noted. No organomegaly noted. No visible injury noted. Back: No CVA tenderness. Full range of motion noted. Skin: Skin warm and dry. Normal skin color. Normal skin turgor. No rashes/lesions/lacerations noted. Extremities: No lower extremity edema. Extremities exhibit normal range of motion. Extremities nontender. Neuro: Oriented X 3. Cranial nerve exam: II-XII are grossly intact No motor deficit. No sensory deficit. Reflexes normal. Course Reevaluation(s) Reevaluation #1: 54-year-old female with COPD, chronic respiratory failure presented with increased shortness of breath. Exam is consistent with COPD exacerbation, patient received bronchodilator, Solu-Medrol, magnesium and patient feels slightly better. Cover empirical dose of doxycycline No sepsis. Time: 18:05 Medications Administered Generic Name Dose Route Start Last Admin Trade Name Freq PRN Reason Stop Dose Admin Lactated Ringer's 1,000 mls @ 500 mls/hr 12/30/24 17:15 12/30/24 17:33 Lr IV 12/30/24 18:14 Not Given .Q2H RILEY Lactated Ringer's 500 mls @ 250 mls/hr 12/30/24 17:45 12/30/24 17:36 Lr IV 12/30/24 19:44 250 mls/hr .Q2H RILEY Administration Discontinued Medications Generic Name Dose Route Start Last Admin Trade Name Freq PRN Reason Stop Dose Admin Albuterol Sulfate 5 mg/ 0 mg 12/30/24 15:58 12/30/24 16:02 Albuterol/Ipratropium 3 ml INHALE 12/30/24 15:59 1 each ONCE ONE Administration Magnesium Sulfate 2 gm in 50 mls @ 150 mls/hr 12/30/24 15:34 12/30/24 16:52 Magnesium Sulfate/H2o IV 12/30/24 15:53 Infused ONCE ONE Infusion Acetaminophen 1,000 mg in 100 mls @ 400 mls/hr 12/30/24 17:07 12/30/24 17:33 Ofirmev IV 12/30/24 17:21 400 mls/hr ONCE ONE Administration Insulin Human Regular 5 unit 12/30/24 17:07 12/30/24 17:18 Insulin Regular, Human 100 Unit/Ml 10 Ml Vial IVPUSH 12/30/24 17:08 5 unit ONCE ONE Administration Methylprednisolone Sodium Succinate 125 mg 12/30/24 15:34 12/30/24 16:16 Methylprednisolone Sod Succ 125 Mg/2 Ml Vial IVPUSH 12/30/24 15:35 125 mg ONCE ONE Administration Medical Decision Making Differential Diagnosis Differential Diagnoses: The differential diagnosis associated with the presentation includes (COPD exacerbation, respiratory failure, pneumonia, pneumothorax, pleural effusion, electrolyte derangement, DKA hyperglycemia, severe anemia.) Admission/Observation Consideration of admission/observation: Escalation of care including admission/observation considered Consult Healthcare Provider Management of the patient was discussed with: Hospitalist (Dr. Cota) Lab Data MDM Lab Attestation statement: I reviewed the patient's lab results. 12/30/24 15:48 12/30/24 15:48 Labs: Lab Results 12/30/24 12/30/24 Range/Units 15:48 17:13 WBC 7.4 (4.8-10.8) X10*3/uL RBC 4.29 (4.20-5.50) X10*6/uL Hgb 11.9 L (12.0-16.0) g/dl Hct 37.4 (37.0-47.0) % MCV 87.2 (80.0-98.0) fL MCH 27.7 (27.0-33.0) pg MCHC 31.8 (31.0-35.0) g/dl RDW 13.4 (11.0-16.0) % Plt Count 306 (160-400) X10*3/uL MPV 9.6 (9.4-12.3) fL Immature Gran % (Auto) 0.7 H (0.0-0.4) % Neut % (Auto) 70.1 (45-73) % Lymph % (Auto) 18.4 L (20-40) % [place] % (Auto) 3.9 (2-11) % Eos % (Auto) 6.4 H (0-4) % Baso % (Auto) 0.5 (0-2) % Lymph # (Auto) 1.4 (1.2-4.9) X10*3/uL [place] # (Auto) 0.3 (0.1-1.2) X10*3/uL Eos # (Auto) 0.5 H (0.0-0.4) X10*3/uL Baso # (Auto) 0.0 (0.0-0.2) X10*3/uL Abs Immat Gran (auto) 0.05 H (0.00-0.03) X10*3/uL Absolute Neuts (auto) 5.2 (2.0-8.3) x10*3/uL Absolute Nucleated RBC 0.000 (0.0-0.012) X10*3/uL Nucleated RBC % (auto) 0.0 (0.0-0.2) /100WBC Sodium 138 (135-145) mmol/L Potassium 5.2 H (3.3-5.1) mmol/L Chloride 98 (96-108) mmol/L Carbon Dioxide 28 (22-29) mmol/L Anion Gap 17 (12-20) BUN 17 H (9-16) mg/dL Creatinine 1.09 (0.5-1.4) mg/dL Estim Creat Clear Calc 67.3 Estimated GFR 52 POC Glucose 306 H (60-115) mg/dL Random Glucose 424 H* (60-115) mg/dL Lactic Acid 2.3 H* (0.5-2.0) mmol/L Calcium 9.3 (8.4-10.2) mg/dL Total Bilirubin 0.2 (0.0-1.0) mg/dL Direct Bilirubin < 0.2 (0.0-0.5) mg/dL AST 35 H (5-31) U/L ALT 17 (0-31) U/L Alkaline Phosphatase 198 H (39-117) U/L Troponin I High Sens < 2.7 (<3.5-17.0) ng/L Total Protein 7.6 (6.5-8.0) g/dL Albumin 4.0 (3.5-5.0) g/dL Lipase 8 (8-78) U/L Influenza Type A (PCR) NEGATIVE (Negative) Influenza Type B (PCR) NEGATIVE (Negative) RSV RNA Qual (PCR) NEGATIVE (Negative) SARS-CoV-2 RNA (RT-PCR) NEGATIVE (Negative) Independent Interpretation I performed an independent interpretation of an: Plain X-Ray (Chest:Left basilar consolidation, most characteristic of atelectasis.) Radiology Impression Discussion of test interpretation with radiology: I have reviewed the radiologist's reading. Discharge Plan Discharge Clinical Impression: Acute exacerbation of chronic obstructive pulmonary disease, Acute hyperglycemia Patient Disposition: Admitted As Inpatient Print Language: Wallisian
--- NOTE | 2024-12-30 15:35 | ECG_ITS ---
Test Reason : sob Blood Pressure : */* mmHG Vent. Rate : 97 BPM Atrial Rate : 97 BPM P-R Int : 176 ms QRS Dur : 86 ms QT Int : 372 ms P-R-T Axes : 36 -9 28 degrees QTcB Int : 472 ms Normal sinus rhythm Possible Anterior infarct (cited on or before 31-May-2024) Abnormal ECG When compared with ECG of 25-Nov-2024 20:17, No significant change was found Referred By: Bassem Edwards Electronically Signed By: LAMBERT DE LA CRUZ MD
[2024-12-30 15:56] LABS: MANUAL DIFF FLAG NO
[2024-12-30] MEDS: Albuterol Sulfate 5 MG, Albuterol/Iprat 2.5/0.5MG 3 ML 3 ML INHALE (16:02)
[2024-12-30 16:05] LABS: Hematocrit 37.4 % (37.0-47.0); Hemoglobin 11.9 g/dl (12.0-16.0); Imm Gran Abs Auto 0.05 X10*3/uL (0.00-0.03); Imm Gran Pct Auto 0.7 % (0.0-0.4); Lymphocytes Absolute Auto 1.4 X10*3/uL (1.2-4.9); Mean Corpuscular HGB Conc 31.8 g/dl (31.0-35.0); Mean Corpuscular Hemoglobin 27.7 pg (27.0-33.0); Mean Corpuscular Volume 87.2 fL (80.0-98.0); NRBC Abs Auto 0.000 X10*3/uL (0.0-0.012); NRBC Pct Auto 0.0 /100WBC (0.0-0.2); Platelet Count 306 X10*3/uL (160-400); Red Blood Count 4.29 X10*6/uL (4.20-5.50); White Blood Count 7.4 X10*3/uL (4.8-10.8)
[2024-12-30] MEDS: Magnesium Sulfate/H2O 2 GM/50 ML PIGGYBACK IV (16:17)
--- OUTSIDE RECORDS SUMMARY | 2024-12-30 16:25 | XMS_ITS | Patient Health Record ---
Author Organization [facility] Address [address] [place] [address] Care Team Providers Care Fitness Management Director Name Role Phone Angie Wing Primary Care Provider Unavailab Aleksey King Unavailable [phone] Viraj Copeland Unavailable Unavailable Allergies Allergen (clinical [...] Problem Status W/U Status Risk Notes Problem Gastroesophageal reflux disease without esophagitis (880599805) Gastroesophageal reflux disease without esophagitis (K21.9) Active confirmed Problem Dysphagia (02202796) Pharyngoesophageal dysphagia (R13.14) Active confirmed Plan Of Treatment Future Test Test Name Order Date UPPER GI ENDOSCOPY BALLOOON DILATION OF ESOPH 02/27/2015 Insurance Providers Payer Name Payer Address Payer Phone Subscriber Number Group Number Insured Name Patient Relationship to Insured Coverage Start Date Coverage End Date [facility] [employer] [facility] [address] [address] [place], [place] [id number] SAKSHI BUSH Self - patient is the insured MEDICAID OF [employer] [address] [place] [phone] [id number] SAKSHI BUSH Self - patient is the insured Medical (General) History Medical History History ICD Code GERD hypertension asthma depression/bipolar Denies RI,DM,CVA,renal disease Back pain Surgical History Surgery Date(Month/Year) spinal fusion tonsillectomy and adenoidectomy appendectomy
--- OUTSIDE RECORDS SUMMARY | 2024-12-30 16:25 | XMS_ITS | Clinical Summary ---
Author Organization [facility] [address] [place] [address] [place] [address] [place] [phone] Phone Care Team Providers Care Director Orange Name Role Phone Megan Anderson MD Primary [...] 08/05/2021 DVT of deep femoral vein, right ([facility] V24, [facility] V28) 05/28/2021 Assessment & Plan (02/02/2024 [...] current use of insulin ([facility] [place], [facility] V28) 01/20/2018 Assessment & Plan (02/02/2024 [...] 4 months. Narcotic dependence, in vasu ssion ([facility] V24, [facility] V28) 11/02/2011 Overview (01/11/2024): On methadone [...] for wheezing. cough Depressive disorder 05/12/2005 Immunizations Immunization Administration Dates Next Due Influenza Quadravalent, MDCK , 0.5ml, preservative free (Flucelvax) 6mo and older 12/03/2021,01/06/2018 Influenza Quadravalent, MDCK , 0.5ml, with preservative (Flucelvax) 6mo and older 12/26/2016 Influenza trivalent, 0.5mL, preservative free (Fluarix; FluLaval; Fluzone) ages 6mo and older (Afluria) 3 years and older 01/28/2016,12/18/2014,12/16/2013,2012,12/09/2011,12/13/2008 Influenza trivalent, with preservative (Fluzone; Afluria) 6mo and older 11/26/2019,11/13/2019,11/04/2018 PPD Test 08/30/2018 [employer] SARS-CoV-2 COVID-19, mRNA, LNP-S, preservative free 04/20/2020,04/03/2020 [...] essential hypertension PEA (Pulseless electrical ac tivity) ([facility] V24, [facility] V28) 11/06/2020 DX:PEA (Pulseless electrica l activity) ([facility]); COMMENT: Found at home PEA and apneic [facility] [place] 11[place]01/20 Pulmonary embolism (CMS/HCC V24, [facility] V28) 05/28/2021 DX:Pulmonary embolism ([facility]) 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 DX:Necr otizing pancreatitis; [...] Last Done Comments Breast Cancer Screening 1969 Colorectal Cancer Screening: Colonoscopy 1969 Diabetes: Annual Foot Exam 11/19/1979 Hepatitis A Vaccines (1 of 2 - Risk 2-dose series) 1988 Hepatitis B Vaccines (1 of 3 - 19+ 3-dose series) 1988 Pneumococcal Vaccine: 50+ Years (1 of 2 - PCV) 1988 RSV Immunization Adult Patients (1 - Risk 50-74 years 1-dose series) 11/19/2019 Zoster Vaccines (1 of 2) 11/19/2019 HIV Screening 02/20/2022 Social Influencers of Health Screening 02/20/2022 Diabetes: Annual Urine Albumin-Creatinine Ratio (uACR) 02/21/2022 12/11/2004 Diabetes: Blood Sugar Control Test (HGBA1C) 01/05/2023 07/06/2022 Depression Screening 03/14/2024 07/13/2023 Diabetes: Annual GFR (Glomerular Filtration Rate) 09/22/2024 09/23/2023, 09/23/2023 Hypertension/CHF/CAD Annual BMP Blood Test 09/22/2024 09/23/2023, 09/23/2023 COVID-19 Vaccine ( season) 2024 08/08/2020, 07/14/2020, 04/20/2020, Additional history exists Influenza Vaccine (#1) 2024 3, 12/03/2021, 11/26/2019, Additional history exists Diabetes: Annual [...] Laterality Modality Ultrasound us Provider [facility] US PROCEDURES Final Result * Annual BMP Blood Test (09/23/2023) [facility] Annual BMP Blood Test abstracted Result [facility] Provider HEALTH MAINTENANCE Final Result * (ABNORMAL) Lipid panel (09/23/2023) [facility] LDL/HDL Ratio 5(A) 0 - 4 Triglycerides 418(A) 0 - 150 mg/dL Cholesterol 149 0 - 200 mg/dL HDL 33(A) >=40 mg/dL LDL Cholesterol 33 0 - 100 mg/dL Blood Venous blood specimen / Unknown Result [facility] Provider LAB BLOOD ORDERABLES Laila l Result * Depression Screening (07/13/2023) [facility] Depression Screening abstracted Result [facility] Provider HEALTH MAINTENANCE Final Result * (ABNORMAL) Hemoglobin A1c (07/06/2022) [facility] Hemoglobin A1C 9.7(A) <=6.5 % Blood Venous blood specimen / Unknown Result [facility] Provider LAB BLOOD ORDERABLES Laila l Result * Cervical Cancer Screening: HPV (06/17/2022) [facility] Cervical Cancer Screening: HPV negative, abstracted Result [facility] Provider HEALTH MAINTENANCE Final Result * Hepatitis C Screening (11/14/2008) [facility] Hepatitis C Screening abstracted Result [facility] Provider HEALTH MAINTENANCE Final Result * Urine Albumin Creatinine Ratio (12/11/2004) [facility] Urine Albumin Creatinine Ratio abstracted Result [facility] Provider HEALTH MAINTENANCE Final Result from Last 3 Months or Most Recently Relevant to Health [place] [address] [place] [id number] [facility] Care Teams Director Orange Relationship Specialty Start Date End Date Megan Anderson MD [address] [place] [address] [place] [phone] PCP - General Internal Medicine 10/12/21
--- OUTSIDE RECORDS SUMMARY | 2024-12-30 16:25 | XMS_ITS | Clinical Summary ---
Author Organization [facility] Address [address] [facility] [address] [place] [address] Phone Care Team Providers Care Channel Lip Wetter Name Role Phone Unavailable Primary Care Provider [...] PCV) 020 Influenza Vaccine (#1) 2024 Insurance [facility] Medicaid [facility] Medicaid
[2024-12-30 16:35] LABS: Resp Syncy Virus RNA Qual PCR NEGATIVE (Negative); SARS COV2 PCR INHOUSE NEGATIVE (Negative); Troponin-I High Sensitivity < 2.7 ng/L (<3.5-17.0)
[2024-12-30 16:45] LABS: Alanine Aminotransferase 17 U/L (0-31); Albumin Level 4.0 g/dL (3.5-5.0); Anion Gap 17 (12-20); Aspartate Amino Transferase 35 U/L (5-31); Blood Urea Nitrogen 17 mg/dL (9-16); Calcium 9.3 mg/dL (8.4-10.2); Carbon Dioxide 28 mmol/L (22-29); Chloride 98 mmol/L (96-108); Creatinine Clr Calc Pharmacy 67.3; Estimated Glomerular Filt Rate 52; Lipase 8 U/L (8-78); Potassium 5.2 mmol/L (3.3-5.1); Sodium 138 mmol/L (135-145); Total Protein 7.6 g/dL (6.5-8.0)
[2024-12-30 17:02] LABS: Alkaline Phosphatase 198 U/L (39-117)
[2024-12-30 17:16] LABS: Glucose, Whole Blood 306 mg/dL (60-115)
[2024-12-30] MEDS: Lactated Ringers 500 ML 250 ML IV (17:36)
[2024-12-30 17:52] LABS: Reflex Lactate? Lactic Acid Added
[2024-12-30 18:33] LABS: Appearance Urine Clear; Glucose Urine UA >=1000 mg/dL (Negative); PH 5.5 (5.0-9.0); Specific Gravity - Urine 1.025 (1.005-1.025); UMIC TRIGGER UACC YES
[2024-12-30 18:41] LABS: UACC Culture Trigger YES
[2024-12-30 18:46] LABS: ~Lactic Acid-LAB USE ONLY 1.2 mmol/L (0.5-2.0)
--- NOTE | 2024-12-30 19:04 | PM.IMHP ---
History of Present Illness Date of Service: 12/30/24 Attending physician on admission: Jenny Elias Chief Complaint: Shortness of breath Anna Marie Black is a 54 years old woman with past medical history significant for chronic hypoxia hypercapnia respiratory failure on home O2 2 L/min via nasal cannula, tracheostomy, PE not on anticoagulation, type 2 diabetes mellitus on insulin and asthma presents to the emergency department complaining of shortness of breath that has been getting worse over the last couple of days. She mentioned that she imaged appointment for tracheostomy change. Did not report worsening cough but had multiple mucus plug and has been unable to suction effectively at home. She did not report any acute gastrointestinal or genitourinary symptoms. Denied tobacco smoking, alcohol abuse or illicit drug use. In the ED, she was found to have stable vital signs. She was placed on high-flow via tracheostomy. Blood workup was remarkable for marked hyperglycemia of 424 a mild lactic acidosis 2.3 that normalized. CXR showed left basilar consolidation. ECG showed normal sinus rhythm and no acute ischemic changes. ED tx: Solu-Medrol 125 mg IV, magnesium 2 g IV, DuoNeb neb, LR 1 L bolus, insulin 5 mg units IV, acetaminophen 1 g IV, Dilaudid 1 g IV Review of Systems Review of Systems: All 12 systems were reviewed and normal except as noted in HPI. [facility] Medical History Respiratory failure with hypoxia and hypercapnia Atelectasis Lumbar degenerative disc disease Small bowel obstruction Uncontrolled diabetes mellitus with hyperglycemia Obesity (BMI 30-39.9) Bipolar depression Anxiety Insomnia Tracheostomy present Pure hypercholesterolemia Diabetes mellitus Asymptomatic bacteriuria Morbid obesity Partial small bowel obstruction Tracheostomy dependent History of cardiac arrest Wound drainage Takotsubo cardiomyopathy Kidney stones UTI (urinary tract infection) Bipolar 1 disorder Asthma Substance abuse Family History Mother No pertinent family history Father No pertinent family history Surgical History History of tracheostomy S/P ureteral stent placement H/O exploratory laparotomy S/P cholecystectomy Social History Household Members: Spouse Household Members Other:: 1 Housing: Apartment Do you presently have visiting nurse or other home services: Yes Alcohol intake: former Comment: stayed in ed Patient Tobacco Use Status: Never used Tobacco Smoked in Last 30 Days: No e-Cigarette/Vaping Use: Never Used Second Hand Smoke Exposure: No Use of substances other than those prescribed or required for medical reasons: No Advance Directives: Yes Advance Directives on File: Yes Advance Directives Date on File: 02/04/23 Do you have a plan to hurt others: No Plan Nutrition Risks: No Nutritional Risk Patient : No service: No Current occupational status: disabled Cognitive needs: No Hearing needs: No Vision needs: Yes Meds Allergies Allergy/AdvReac Type Severity Reaction Status Date / Time pantoprazole Allergy Mild Redness of Verified 12/30/24 15:32 Skin Active Medications: Current Medications Acetaminophen (Acetaminophen 325 Mg Tablet) 975 mg PO Q6H PRN PRN Reason: Pain, Mild 1-3,fever,headache Calcium Carbonate (Calcium Carbonate 750 Mg Tab.Chew) 750 mg PO Q4H PRN PRN Reason: Heartburn Dextrose (Dextrose 50 % 25 Gm/50 Ml Syringe) 25 gm IVPUSH Q15M PRN; Protocol PRN Reason: per Hypoglycemia Standing Ord. Enoxaparin Sodium (Enoxaparin Sodium 40 Mg/0.4 Ml Syringe) 40 mg SUBCUT Q24H RILEY Glucose (Glucose Gel 15 Gm Gel..Gram.) 15 gm PO Q15M PRN; Protocol PRN Reason: per Hypoglycemia Standing Ord. Lactated Ringer's (Lr) 500 mls @ 250 mls/hr IV .Q2H RILEY Stop: 12/30/24 19:44 Last Admin: 12/30/24 17:36 Dose: 250 mls/hr Doxycycline Hyclate 100 mg/ (Sodium Chloride) 250 mls @ 166.67 mls/hr IV ONCE ONE Stop: 12/30/24 19:35 Last Admin: 12/30/24 18:58 Dose: 166.67 mls/hr Insulin Human Lispro (Insulin Lispro 100 Unit/Ml 3 Ml Vial) 0 unit SUBCUT QIDACHS RILEY; Protocol Magnesium Hydroxide (Milk Of Magnesia 30 Ml Oral.Susp) 30 ml PO DAILY PRN PRN Reason: Constipation Melatonin (Melatonin 3 Mg Tablet) 6 mg PO BEDTIME PRN PRN Reason: Insomnia Ondansetron HCl (Ondansetron Hcl 4 Mg/2 Ml Vial) 4 mg IVPUSH Q8H PRN PRN Reason: Nausea and Vomiting Sodium Chloride (0.9 % Sodium Chloride Flush 3 Ml Syringe) 3 ml IVFLUSH [facility] Medications ?Medication ?Instructions ?Recorded ?Confirmed ?Last Taken ?Type escitalopram oxalate 20 mg tablet 20 mg PO BEDTIME 02/02/23 12/30/24 11/24/24 History famotidine 20 mg tablet 20 mg PO BID 02/02/23 12/30/24 11/24/24 History fluticasone propionate 50 1 spray intranasal DAILY PRN 02/02/23 12/30/24 08/10/24 History mcg/actuation nasal Allergy Symptoms spray,suspension oxcarbazepine 300 mg tablet 300 mg PO BID 02/02/23 12/30/24 11/24/24 History trazodone 150 mg tablet 150 mg PO BEDTIME PRN Sleep 02/02/23 12/30/24 09/07/23 20:00 History atorvastatin 20 mg tablet 20 mg PO DAILY 05/31/24 12/30/24 11/24/24 History mometasone-formoterol HFA 200 2 puff inhalation BID 05/31/24 12/30/24 11/24/24 History mcg-5 mcg/actuation aerosol inhaler (Dulera) insulin glargine 100 unit/mL (3 20 unit subcut BEDTIME 08/11/24 12/30/24 11/24/24 History mL) subcutaneous pen (Lantus Solostar U-100 Insulin) lurasidone 80 mg tablet 80 mg PO BEDTIME 08/11/24 12/30/24 11/24/24 History clonazepam 0.5 mg tablet 1 mg PO BID PRN Anxiety 12/30/24 12/30/24 Unknown History gabapentin 300 mg capsule 300 mg PO BID 12/30/24 12/30/24 Unknown History Physical Exam Vital Signs and Narrative: Vital Signs: Last Vital Signs Temp 99.1 F 12/30/24 15:20 Pulse 96 12/30/24 16:18 Resp 16 12/30/24 18:53 BP 131/72 12/30/24 15:20 Pulse Ox 95 12/30/24 16:18 O2 Del Method High Flow Nasal C annula 12/30/24 16:18 FiO2 30 12/30/24 16:18 Oxygen Flow Rate 2 12/30/24 15:20 BMI result Body Mass Index 40.7 General: Alert, oriented, in no acute distress. Well nourished and cooperative. Afebrile. Obese. HEENT: Head normocephalic, atraumatic. PER, EOMI. Sclerae anicteric, conjunctiva clear. Oropharynx without erythema or exudate. Mucous membranes moist. Neck: Supple,or JVD. Tracheostomy in place. Heart: RRR, no murmurs, rubs or gallops. Lungs: Bilateral rhonchi. Abdomen: Soft, non tenderness, nondistended, normoactive bowel sounds. No hepatosplenomegaly, masses or masses. Extremities: No calf tenderness bilaterally, no swelling Musculoskeletal: Full range of motion. No joint swelling, deformity, or tenderness. Normal muscle tone and strength. Skin: Warm/Dry. No pallor. No jaundice. Neurologic: Alert & oriented x4. Moving all extremities spontaneously. Normal speech. Psychological: Normal mood and affect. Thought process coherent. Results Labs 12/30/24 15:48 12/30/24 15:48 Labs: Laboratory Results - last 24 hr 12/30/24 12/30/24 12/30/24 15:48 17:13 18:12 MCV 87.2 MCH 27.7 MCHC 31.8 RDW 13.4 Plt Count 306 MPV 9.6 Immature Gran % (Auto) 0.7 H Neut % (Auto) 70.1 Lymph % (Auto) 18.4 L [place] % (Auto) 3.9 Eos % (Auto) 6.4 H Baso % (Auto) 0.5 Lymph # (Auto) 1.4 [place] # (Auto) 0.3 Eos # (Auto) 0.5 H Baso # (Auto) 0.0 Abs Immat Gran (auto) 0.05 H Absolute Neuts (auto) 5.2 Absolute Nucleated RBC 0.000 Nucleated RBC % (auto) 0.0 Anion Gap 17 Estim Creat Clear Calc 67.3 Estimated GFR 52 POC Glucose 306 H Random Glucose 424 H* Lactic Acid 2.3 H* Lactic Acid F/U @ 2Hr 1.2 Calcium 9.3 Total Bilirubin 0.2 Direct Bilirubin < 0.2 AST 35 H ALT 17 Alkaline Phosphatase 198 H Troponin I High Sens < 2.7 Total Protein 7.6 Albumin 4.0 Lipase 8 Urine Color Urine Appearance Urine pH Ur Specific [place] Urine Protein Urine Glucose (UA) Urine Ketones Urine Blood Urine Nitrite Ur Leukocyte Esterase Urine RBC Urine WBC Ur Squamous Epith Cells Urine Bacteria Hyaline Casts Influenza Type A (PCR) NEGATIVE Influenza Type B (PCR) NEGATIVE RSV RNA Qual (PCR) NEGATIVE SARS-CoV-2 RNA (RT-PCR) NEGATIVE 12/30/24 18:27 MCV MCH MCHC RDW Plt Count MPV Immature Gran % (Auto) Neut % (Auto) Lymph % (Auto) [place] % (Auto) Eos % (Auto) Baso % (Auto) Lymph # (Auto) [place] # (Auto) Eos # (Auto) Baso # (Auto) Abs Immat Gran (auto) Absolute Neuts (auto) Absolute Nucleated RBC Nucleated RBC % (auto) Anion Gap Estim Creat Clear Calc Estimated GFR POC Glucose Random Glucose Lactic Acid Lactic Acid F/U @ 2Hr Calcium Total Bilirubin Direct Bilirubin AST ALT Alkaline Phosphatase Troponin I High Sens Total Protein Albumin Lipase Urine Color Yellow Urine Appearance Clear Urine pH 5.5 Ur Specific [place] 1.025 Urine Protein Negative Urine Glucose (UA) >=1000 H Urine Ketones Negative Urine Blood Negative Urine Nitrite Positive H Ur Leukocyte Esterase Trace H Urine RBC 0-2 Urine WBC 21-50 H Ur Squamous Epith Cells 0-2 Urine Bacteria 3+ Hyaline Casts 0-2 Influenza Type A (PCR) Influenza Type B (PCR) RSV RNA Qual (PCR) SARS-CoV-2 RNA (RT-PCR) Assessment and Plan (1) Respiratory failure with hypoxia and hypercapnia: Qualifiers: Chronicity: acute on chronic Qualified Code(s): J96.21 - Acute and chronic respiratory failure with hypoxia; J96.22 - Acute and chronic respiratory failure with hypercapnia Status: Acute (2) Acute exacerbation of chronic obstructive pulmonary disease: Status: Acute Plan Anna Marie Black is a 54 y/o woman s/p tracheostomy (missed kirill to have it charged 1st week in December) who presents to the ED with: Acute on chronic hypoxic and hypercapnic respiratory failure due to pneumonia. Telemetry. Pulse oximetry. Supplemental O2 via tracheostomy high-flow. Keep O2 sats > 90%. Empiric IV antibiotic therapy with Zosyn. Continue bronchodilator therapy, IV steroids and secretions suctioned as needed. Pulmonology consult. Type 2 diabetes mellitus. BG checks before meals at bedtime. Continue Lantus and insulin sliding scale. Diabetic diet. Acute lactic acidosis, resolved. Likely due to bronchodilator therapy. Hyperlipidemia. Continue statin. History of PE. Not taking anticoagulation. Mood disorder. Continue home meds. Morbid obesity. BMI 40.7 kg/m2. Lifestyle modification. Encourage weight loss. Code status: Full DVT prophylaxis: Lovenox Patient will need hospitalization for at least 2 midnights for acute on chronic hypoxic respiratory failure due to pneumonia for IV antibiotic therapy and supplemental oxygen with high-flow. Quality Stroke Does the patient have a stroke diagnosis?: No VTE Prior VTE?: No VTE Risk Level:: Medical - moderate - high VTE Device Contraindication: Treatment Not Indicated VTE Drug Contraindication: N/A - Med Ordered
--- NOTE | 2024-12-30 19:28 | PHA.MEDREC ---
Pharmacy Consult ? Medication Reconciliation Pharmacy has completed the medication reconciliation. Spoke with patient in ED. Patient no longer on Mirtazapine
[2024-12-30 19:31] LABS: Glucose, Whole Blood 282 mg/dL (60-115)
[2024-12-30] MEDS: Insulin Glargine,Hum.rec.anlog 100 UNIT/ML 10 ML VIAL 15 UNIT SUBCUT (19:35)
--- NOTE | 2024-12-30 19:36 | PC.NURSE ---
this rn assumed care of pt, pt resting in stretcher, no acute distress noted. pt on high flow with trach at this time maintaining sats of 98-100%, pt noted to have productive cough. medicated per carlos
[2024-12-30] MEDS: Albuterol/Iprat 2.5/0.5MG 3 ML AMPUL.NEB INHALE (20:07)
--- NOTE | 2024-12-30 20:09 | PC.NURSE ---
pt returned from bathroom at this time, maintaining sat of 98% on highflow, pt requesting treatment at this time, RT at bedside
--- NOTE | 2024-12-30 20:54 | PC.NURSE ---
pt poc noted to be 467. MD Ma notified. pt also reporting 10/10 pain, notified for pain medications
[2024-12-30 20:58] LABS: Glucose, Whole Blood 467 mg/dL (60-115)
[2024-12-30 23:10] LABS: Glucose, Whole Blood 483 mg/dL (60-115)
--- NOTE | 2024-12-30 23:23 | PC.NURSE ---
pt poc remains elevated at this time. md brothers aware and pt medicated per mar
[2024-12-31] VITALS (17 sets, daily range): BP systolic 116–146; BP diastolic 59–78; PULSE 61–86; RESP 12–20; TEMP 36.4–37.2; O2SAT 92–9420; BMI 39.1
[2024-12-31 00:20] LABS: Glucose, Whole Blood 464 mg/dL (60-115)
[2024-12-31] MEDS: Insulin Glargine,Hum.rec.anlog 100 UNIT/ML 10 ML VIAL 30 UNIT SUBCUT (01:54)
[2024-12-31] MEDS: Albuterol Sulfate (0.083%) 2.5 MG/3 ML VIAL.NEB INHALE (02:13)
[2024-12-31 04:24] LABS: Hematocrit 40.8 % (37.0-47.0); Hemoglobin 13.2 g/dl (12.0-16.0); Imm Gran Abs Auto 0.12 X10*3/uL (0.00-0.03); Imm Gran Pct Auto 1.3 % (0.0-0.4); Lymphocytes Absolute Auto 0.7 X10*3/uL (1.2-4.9); MANUAL DIFF FLAG SCAN; Mean Corpuscular HGB Conc 32.4 g/dl (31.0-35.0); Mean Corpuscular Hemoglobin 27.7 pg (27.0-33.0); Mean Corpuscular Volume 85.5 fL (80.0-98.0); NRBC Abs Auto 0.000 X10*3/uL (0.0-0.012); NRBC Pct Auto 0.0 /100WBC (0.0-0.2); Platelet Count 352 X10*3/uL (160-400); Red Blood Count 4.77 X10*6/uL (4.20-5.50); SCAN SMEAR FLAG 1; White Blood Count 9.4 X10*3/uL (4.8-10.8)
[2024-12-31 05:03] LABS: Anion Gap 16 (12-20); Blood Urea Nitrogen 21 mg/dL (9-16); Calcium 9.7 mg/dL (8.4-10.2); Carbon Dioxide 29 mmol/L (22-29); Chloride 96 mmol/L (96-108); Creatinine Clr Calc Pharmacy 69.9; Estimated Glomerular Filt Rate 54; Potassium 4.3 mmol/L (3.3-5.1); Sodium 137 mmol/L (135-145)
--- NOTE | 2024-12-31 05:13 | PC.NURSE ---
Addendum entered by Lorin Nava RN 12/31/24 05:15: per recheck poc at 0730 Original Note: critical glucose received at this time, aware and orders as follows
[2024-12-31 07:11] LABS: Glucose, Whole Blood 292 mg/dL (60-115)
[2024-12-31] MEDS: Albuterol/Iprat 2.5/0.5MG 3 ML AMPUL.NEB INHALE ×4 (07:25→20:00)
--- NOTE | 2024-12-31 09:26 | PM.CNPUL ---
History of Present Illness History of Present Illness Consult date: 12/31/24 Chief complaint: Acute on chronic respiratory failure. Narrative: This is an inpatient pulmonary consultation. The patient is a 54 years old woman with past medical history significant for chronic hypoxia hypercapnia respiratory failure on home O2 2 L/min via nasal cannula, tracheostomy, PE not on anticoagulation, type 2 diabetes mellitus on insulin and asthma presents to the emergency department complaining of shortness of breath that has been getting worse over the last couple of days. She mentioned that she imaged appointment for tracheostomy change. Did not report worsening cough but had multiple mucus plug and has been unable to suction effectively at home. The patient does have a [facility] TTS tracheostomy in place it has not been changed in 4 months. Did talk to the patient about doing a diagnostic and therapeutic bronchoscopy and also to change her tracheostomy while we are there. The patient is agreeable to this. Review of Systems Constitutional: Constitutional: Reports fatigue Cardiovascular: Cardiovascular: Reports dyspnea on exertion Respiratory: Respiratory: Reports cough, Reports dyspnea on exertion and Reports wheezing Gastrointestinal: Gastrointestinal: Reports no additional gastrointestinal complaints Genitourinary: Genitourinary: Reports no additional female genitourinary complaints Endocrine: Endocrine: Reports fatigue Allergic/Immunologic: Allergic/Immunologic: Reports wheezing PMFSH Past Medical History Medical History Respiratory failure with hypoxia and hypercapnia Atelectasis Lumbar degenerative disc disease Small bowel obstruction Uncontrolled diabetes mellitus with hyperglycemia Obesity (BMI 30-39.9) Bipolar depression Anxiety Insomnia Tracheostomy present Pure hypercholesterolemia Diabetes mellitus Asymptomatic bacteriuria Morbid obesity Partial small bowel obstruction Tracheostomy dependent History of cardiac arrest Wound drainage Takotsubo cardiomyopathy Kidney stones UTI (urinary tract infection) Bipolar 1 disorder Asthma Substance abuse Family History Family History Mother No pertinent family history Father No pertinent family history Surgical History Surgical History History of tracheostomy S/P ureteral stent placement H/O exploratory laparotomy S/P cholecystectomy Social History Social History Household Members: Spouse Household Members Other:: 1 Housing: Apartment Do you presently have visiting nurse or other home services: Yes Alcohol intake: former Comment: stayed in ed Patient Tobacco Use Status: Never used Tobacco Smoked in Last 30 Days: No e-Cigarette/Vaping Use: Never Used Second Hand Smoke Exposure: No Use of substances other than those prescribed or required for medical reasons: No Advance Directives: Yes Advance Directives on File: Yes Advance Directives Date on File: 02/04/23 Do you have a plan to hurt others: No Plan Nutrition Risks: No Nutritional Risk Patient : No service: No Current occupational status: disabled Cognitive needs: No Hearing needs: No Vision needs: Yes Meds Allergies Allergy/AdvReac Type Severity Reaction Status Date / Time pantoprazole Allergy Mild Redness of Verified 12/30/24 15:32 Skin Active Medications: Current Medications Acetaminophen (Acetaminophen 325 Mg Tablet) 975 mg PO Q6H PRN PRN Reason: Pain, Mild 1-3,fever,headache Albuterol Sulfate (Albuterol Sulfate (0.083%) 2.5 Mg/3 Ml Vial.Neb) 2.5 mg INHALE Q2H PRN PRN Reason: Shortness of Breath/Wheezing Last Admin: 12/31/24 02:13 Dose: 2.5 mg Albuterol/Ipratropium (Albuterol/Iprat 2.5/0.5mg 3 Ml Ampul.Neb) 3 ml INHALE RQ4H WHILE AWAKE [facility] Last Admin: 12/31/24 07:25 Dose: 3 ml Atorvastatin Calcium (Atorvastatin Calcium 20 Mg Tablet) 20 mg PO DAILY [facility] Calcium Carbonate (Calcium Carbonate 750 Mg Tab.Chew) 750 mg PO Q4H PRN PRN Reason: Heartburn Clonazepam (Clonazepam 1 Mg Tablet) 1 mg PO BID PRN PRN Reason: Anxiety Dextrose (Dextrose 50 % 25 Gm/50 Ml Syringe) 25 gm IVPUSH Q15M PRN; Protocol PRN Reason: per Hypoglycemia Standing Ord. Enoxaparin Sodium (Enoxaparin Sodium 40 Mg/0.4 Ml Syringe) 40 mg SUBCUT Q24H [facility] Famotidine (Famotidine 20 Mg Tablet) 20 mg PO BID [facility] Last Admin: 12/30/24 21:43 Dose: 20 mg Fluticasone Propionate (Fluticasone Propionate Nasal 16 Gm Greer) 1 spray NOSTRIL-B DAILY PRN PRN Reason: Allergy Symptoms Gabapentin (Gabapentin 300 Mg Capsule) 300 mg PO BID [facility] Last Admin: 12/30/24 21:43 Dose: 300 mg Glucose (Glucose Gel 15 Gm Gel..Gram.) 15 gm PO Q15M PRN; Protocol PRN Reason: per Hypoglycemia Standing Ord. Hydromorphone HCl (Hydromorphone Hcl 0.5 Mg/0.5 Ml Syringe) 0.5 mg IVPUSH Q4H PRN; Protocol PRN Reason: Pain, Severe (Pain Scale 7-10) Last Admin: 12/31/24 06:01 Dose: 0.5 mg Piperacillin Sod/Tazobactam (Sod 3.375 gm/ Sodium Chloride) 50 mls @ 100 mls/hr IV Q6H [facility] Last Infusion: 12/31/24 09:06 Dose: Infused Insulin Glargine (Insulin Glargine,Hum.Rec.Anlog 100 Unit/Ml 10 Ml Vial) 20 unit SUBCUT BEDTIME RILEY Insulin Human Lispro (Insulin Lispro 100 Unit/Ml 3 Ml Vial) 0 unit SUBCUT QIDACHS [facility]; Protocol Last Admin: 12/31/24 07:31 Dose: 6 unit Magnesium Hydroxide (Milk Of Magnesia 30 Ml Oral.Susp) 30 ml PO DAILY PRN PRN Reason: Constipation Melatonin (Melatonin 3 Mg Tablet) 6 mg PO BEDTIME PRN PRN Reason: Insomnia Methylprednisolone Sodium Succinate (Methylprednisolone Sod Succ 40 Mg/Ml Vial) 40 mg IVPUSH Q12H [facility] Last Admin: 12/31/24 05:22 Dose: 40 mg Oxcarbazepine (Oxcarbazepine 300 Mg Tablet) 300 mg PO BID [facility] Last Admin: 12/30/24 21:43 Dose: 300 mg Promethazine HCl (Promethazine Hcl 25 Mg Tablet) 25 mg PO DAILY PRN PRN Reason: Nausea Sodium Chloride (0.9 % Sodium Chloride Flush 3 Ml Syringe) 3 ml IVFLUSH QSHIFT [facility] Last Admin: 12/31/24 06:58 Dose: Not Given Trazodone HCl (Trazodone Hcl 50 Mg Tablet) 150 mg PO BEDTIME PRN PRN Reason: Sleep Home Medications ?Medication ?Instructions ?Recorded ?Confirmed ?Last Taken ?Type escitalopram oxalate 20 mg tablet 20 mg PO BEDTIME 02/02/23 12/30/24 11/24/24 History famotidine 20 mg tablet 20 mg PO BID 02/02/23 12/30/2425 History fluticasone propionate 50 1 spray intranasal DAILY PRN 02/02/23 12/30/24 08/10/24 History mcg/actuation nasal Allergy Symptoms spray,suspension oxcarbazepine 300 mg tablet 300 mg PO BID 02/02/23 12/30/24 11/24/24 History trazodone 150 mg tablet 150 mg PO BEDTIME PRN Sleep 02/02/23 12/30/24 09/07/23 20:00 History atorvastatin 20 mg tablet 20 mg PO DAILY 05/31/24 12/30/24 11/24/24 History mometasone-formoterol HFA 200 2 puff inhalation BID 05/31/24 12/30/24 11/24/24 History mcg-5 mcg/actuation aerosol inhaler (Dulera) insulin glargine 100 unit/mL (3 20 unit subcut BEDTIME 08/11/24 12/30/24 11/24/24 History mL) subcutaneous pen (Lantus Solostar U-100 Insulin) lurasidone 80 mg tablet 80 mg PO BEDTIME 08/11/24 12/30/24 11/24/24 History clonazepam 0.5 mg tablet 1 mg PO BID PRN Anxiety 12/30/24 12/30/24 Unknown History gabapentin 300 mg capsule 300 mg PO BID 12/30/24 12/30/24 Unknown History Physical Exam Vital Signs: Vital Signs: Last Vital Signs Temp 97.7 F 12/31/24 06:53 Pulse 68 12/31/24 07:25 Resp 20 12/31/24 07:26 BP 146/78 H 12/31/24 06:53 Pulse Ox 97 12/31/24 06:53 O2 Del Method High Flow Nasal C annula, Trach Crystal ar 12/31/24 06:53 O2 Flow Rate 50 12/31/24 06:53 FiO2 30 12/31/24 06:53 Oxygen Flow Rate 2 12/30/24 15:20 BMI result Body Mass Index 40.7 Const: General: cooperative, comfortable, alert, awake and Physically active Nutritional Appearance: obese Orientation/consciousness: patient oriented x3 Neck: Neck: Yes tracheostomy present Resp: Effort & Inspection: normal respiratory effort, able to speak in complete sentences, no respiratory distress and no use of accessory muscles Auscultation: diminished lung sounds Neuro: General: patient oriented x3 Results Laboratory Findings 12/31/24 03:50 12/31/24 03:50 Abnormal lab findings: Abnormal Labs 12/30/24 12/30/24 12/30/24 15:48 17:13 18:27 Hgb 11.9 L Immature Gran % (Auto) 0.7 H Neut % (Auto) Lymph % (Auto) 18.4 L [place] % (Auto) Eos % (Auto) 6.4 H Lymph # (Auto) Eos # (Auto) 0.5 H Abs Immat Gran (auto) 0.05 H Absolute Neuts (auto) Potassium 5.2 H BUN 17 H POC Glucose 306 H Random Glucose 424 H* Lactic Acid 2.3 H* AST 35 H Alkaline Phosphatase 198 H Urine Glucose (UA) >=1000 H Urine Nitrite Positive H Ur Leukocyte Esterase Trace H Urine WBC 21-50 H 12/30/24 12/30/24 12/30/24 18:56 20:52 23:06 Hgb Immature Gran % (Auto) Neut % (Auto) Lymph % (Auto) [place] % (Auto) Eos % (Auto) Lymph # (Auto) Eos # (Auto) Abs Immat Gran (auto) Absolute Neuts (auto) Potassium BUN POC Glucose 282 H 467 H* 483 H* Random Glucose Lactic Acid AST Alkaline Phosphatase Urine Glucose (UA) Urine Nitrite Ur Leukocyte Esterase Urine WBC 12/31/24 12/31/24 12/31/24 00:15 03:50 07:07 Hgb Immature Gran % (Auto) 1.3 H Neut % (Auto) 90.2 H Lymph % (Auto) 6.9 L [place] % (Auto) 1.1 L Eos % (Auto) Lymph # (Auto) 0.7 L Eos # (Auto) Abs Immat Gran (auto) 0.12 H Absolute Neuts (auto) 8.5 H Potassium BUN 21 H POC Glucose 464 H* 292 H Random Glucose 436 H* Lactic Acid AST Alkaline Phosphatase Urine Glucose (UA) Urine Nitrite Ur Leukocyte Esterase Urine WBC Assessment and Plan (1) Respiratory failure with hypoxia and hypercapnia: Qualifiers: Chronicity: acute on chronic Qualified Code(s): J96.21 - Acute and chronic respiratory failure with hypoxia; J96.22 - Acute and chronic respiratory failure with hypercapnia Status: Acute (2) Atelectasis: Status: Acute (3) Pneumonia: Qualifiers: Pneumonia type: due to unspecified organism Laterality: left Lung location: lower lobe of lung Qualified Code(s): J18.9 - Pneumonia, unspecified organism Status: Acute (4) Acute exacerbation of chronic obstructive pulmonary disease: Status: Acute (5) Respiratory distress: Status: Acute Plan continue Tracheostomy care HF oxygen via tracheostomy Continue respiratory therapy conitnue Abx therapy Plan for bronchosocpy to assess for foreign bodies and mucus plugs and for tracheostomy change Procedures Date of Service Date of Service: 12/31/24
--- NOTE | 2024-12-31 09:47 | MHC.CM.PN ---
CM met with Patient at bedside, in the ED. Patient lives in an apartment with her /HCP/Casimiro and she uses a cane to assist with mobility. Patient receives her home O2 & trach supplies from [facility] in [place].Home self care is Patient's goal and CM has initiated and will follow for dc planning. PCP is Dr. Flynn Granado and Patient will require BLS transport at dc.
--- NOTE | 2024-12-31 13:24 | PC.NURSE ---
assumed care of patient at 0700, patient is awake alert and oriented, sat up and ate breakfast on the edge of the stretcher. patient moved into room 3 for comfort. patient is currently on high flow via trach, patient removes self to ambulate to the bathroom across the hebert, has no sob or ambulation issues. patient given hospital bed for comfort. VSS
--- NOTE | 2024-12-31 13:26 | HO.NURTONUR ---
Anna Marie is a 54F full code who presented to the ED with increased sob, patient cxr noted to have pneumonia, patient states her started smoking in the house again which may have attributed to this. patient has hx of chronic resp failure with tracheostomy, does not wear supplemental o2 at baseline. patient is currently on high flow via trach, 50L 30FIo2, patient tolerates well. ambulates to the bathroom, is alert and oriented x3. patient has #22 in left lateral forearm. plan for IV abx/steroids, bronch dilators, with pulm consult.
--- NOTE | 2024-12-31 13:47 | PC.NURSE ---
patient poc 391, inpatient attending Dr Chavez, advised to give additional 5 units and will adjust inuslin
[2024-12-31 13:48] LABS: Glucose, Whole Blood 391 mg/dL (60-115)
--- NOTE | 2024-12-31 15:17 | P.CONAN_ITS ---
Documented by User: Jolly Vásquez NP 01/01/25 07:44 HPI - Anesthesia Eval Consult details Narrative: 54 yr old female for bronchoscopy, fiberoptic BMI 39 Acute hypoxia with hyercapnia: given solumedrol in ED Tracheostomy: O2 sats 92-93% on high flow nasal cannula/trach collar Takotsubo cardiomyopathy: see last echo from 2023 below Uncontrolled diabetes: A1C >13% 10/2024 [facility] Active Problems Active Problems: All Active Problems Acute hyperglycemia (Acute) Respiratory failure with hypoxia and hypercapnia (Acute) Atelectasis (Acute) COPD (chronic obstructive pulmonary disease) (Acute) Lumbar degenerative disc disease (Acute) Small bowel obstruction (Acute) Pain of toe of left foot (Acute) Uncontrolled diabetes mellitus with hyperglycemia (Acute) Hypercarbia (Acute) Acute exacerbation of chronic obstructive pulmonary disease (Acute) Obesity (BMI 30-39.9) (Acute) Bipolar depression (Acute) Anxiety (Acute) Insomnia (Acute) Tracheostomy present (Acute) Pure hypercholesterolemia (Acute) Urine abnormality (Acute) Hyperglycemia (Acute) History of substance abuse (Acute) Substance abuse (Acute) History of cardiac arrest (Acute) Diabetes (Acute) Bimalleolar fracture of left ankle (Acute) Acute encephalopathy (Acute) Pneumonia (Acute) Intractable abdominal pain (Acute) Pancreatitis (Acute) Hypoxia (Acute) Mild intermittent asthma (Acute) Asthma (Acute) Kidney stones (Acute) Respiratory distress (Acute) Acute back pain (Acute) Asthma with exacerbation (Acute) Hyperglycemia (Acute) Past Medical History Medical History Respiratory failure with hypoxia and hypercapnia Atelectasis Lumbar degenerative disc disease Small bowel obstruction Uncontrolled diabetes mellitus with hyperglycemia Obesity (BMI 30-39.9) Bipolar depression Anxiety Insomnia Tracheostomy present Pure hypercholesterolemia Diabetes mellitus Asymptomatic bacteriuria Morbid obesity Partial small bowel obstruction Tracheostomy dependent History of cardiac arrest Wound drainage Takotsubo cardiomyopathy Kidney stones UTI (urinary tract infection) Bipolar 1 disorder Asthma Substance abuse Family History Family History Mother No pertinent family history Father No pertinent family history Surgical History Surgical History History of tracheostomy S/P ureteral stent placement H/O exploratory laparotomy S/P cholecystectomy Social History Social History Household Members: None Household Members Other:: 1 Housing: Apartment Are you a primary care tech to a significant other at home: No Do you presently have visiting nurse or other home services: Yes Alcohol intake: former Comment: stayed in ed Patient Tobacco Use Status: Never used Tobacco e-Cigarette/Vaping Use: Never Used Second Hand Smoke Exposure: Yes ( smokes) Advance Directives Date on File: 02/04/23 service: No Current occupational status: disabled Cognitive needs: No Hearing needs: No Vision needs: Yes Meds Allergies Allergy/AdvReac Type Severity Reaction Status Date / Time pantoprazole Allergy Mild Redness of Verified 12/30/24 15:32 Skin Active Medications: Current Medications Acetaminophen (Acetaminophen 325 Mg Tablet) 975 mg PO Q6H PRN PRN Reason: Pain, Mild 1-3,fever,headache Albuterol Sulfate (Albuterol Sulfate (0.083%) 2.5 Mg/3 Ml Vial.Neb) 2.5 mg INHALE Q2H PRN PRN Reason: Shortness of Breath/Wheezing Last Admin: 12/31/24 02:13 Dose: 2.5 mg Albuterol/Ipratropium (Albuterol/Iprat 2.5/0.5mg 3 Ml Ampul.Neb) 3 ml INHALE RQ4H WHILE AWAKE [facility] Last Admin: 12/31/24 11:38 Dose: 3 ml Atorvastatin Calcium (Atorvastatin Calcium 20 Mg Tablet) 20 mg PO DAILY [facility] Last Admin: 12/31/24 09:41 Dose: 20 mg Calcium Carbonate (Calcium Carbonate 750 Mg Tab.Chew) 750 mg PO Q4H PRN PRN Reason: Heartburn Clonazepam (Clonazepam 1 Mg Tablet) 1 mg PO BID PRN PRN Reason: Anxiety Dextrose (Dextrose 50 % 25 Gm/50 Ml Syringe) 25 gm IVPUSH Q15M PRN; Protocol PRN Reason: per Hypoglycemia Standing Ord. Enoxaparin Sodium (Enoxaparin Sodium 40 Mg/0.4 Ml Syringe) 40 mg SUBCUT Q24H [facility] Last Admin: 12/31/24 09:44 Dose: Not Given Famotidine (Famotidine 20 Mg Tablet) 20 mg PO BID [facility] Last Admin: 12/31/24 09:41 Dose: 20 mg Fluticasone Propionate (Fluticasone Propionate Nasal 16 Gm [place]) 1 spray NOSTRIL-B DAILY PRN PRN Reason: Allergy Symptoms Gabapentin (Gabapentin 300 Mg Capsule) 300 mg PO BID [facility] Last Admin: 12/31/24 09:41 Dose: 300 mg Glucose (Glucose Gel 15 Gm Gel..Gram.) 15 gm PO Q15M PRN; Protocol PRN Reason: per Hypoglycemia Standing Ord. Hydromorphone HCl (Hydromorphone Hcl 0.5 Mg/0.5 Ml Syringe) 0.5 mg IVPUSH Q4H PRN; Protocol PRN Reason: Pain, Severe (Pain Scale 7-10) Last Admin: 12/31/24 14:22 Dose: 0.5 mg Piperacillin Sod/Tazobactam (Sod 3.375 gm/ Sodium Chloride) 50 mls @ 100 mls/hr IV Q6H [facility] Last Infusion: 12/31/24 15:07 Dose: Infused Insulin Glargine (Insulin Glargine,Hum.Rec.Anlog 100 Unit/Ml 10 Ml Vial) 20 unit SUBCUT BEDTIME [facility] Insulin Human Lispro (Insulin Lispro 100 Unit/Ml 3 Ml Vial) 0 unit SUBCUT QIDACHS [facility]; Protocol Last Admin: 12/31/24 14:18 Dose: 15 unit Magnesium Hydroxide (Milk Of Magnesia 30 Ml Oral.Susp) 30 ml PO DAILY PRN PRN Reason: Constipation Melatonin (Melatonin 3 Mg Tablet) 6 mg PO BEDTIME PRN PRN Reason: Insomnia Methylprednisolone Sodium Succinate (Methylprednisolone Sod Succ 40 Mg/Ml Vial) 40 mg IVPUSH Q12H [facility] Last Admin: 12/31/24 05:22 Dose: 40 mg Oxcarbazepine (Oxcarbazepine 300 Mg Tablet) 300 mg PO BID [facility] Last Admin: 12/31/24 09:41 Dose: 300 mg Promethazine HCl (Promethazine Hcl 25 Mg Tablet) 25 mg PO DAILY PRN PRN Reason: Nausea Sodium Chloride (0.9 % Sodium Chloride Flush 3 Ml Syringe) 3 ml IVFLUSH QSHIFT [facility] Last Admin: 12/31/24 15:07 Dose: Not Given Trazodone HCl (Trazodone Hcl 50 Mg Tablet) 150 mg PO BEDTIME PRN PRN Reason: Sleep Home Medications ?Medication ?Instructions ?Recorded ?Confirmed ?Last Taken ?Type escitalopram oxalate 20 mg tablet 20 mg PO BEDTIME 12/30/24 11/24/24 History famotidine 20 mg tablet 20 mg PO BID 02/02/2311/24/24 History fluticasone propionate 50 1 spray intranasal DAILY PRN 02/02/23 12/30/24 08/10/24 History mcg/actuation nasal Allergy Symptoms spray,suspension oxcarbazepine 300 mg tablet 300 mg PO BID 02/02/2311/24/24 History trazodone 150 mg tablet 150 mg PO BEDTIME PRN Sleep 02/02/23 12/30/24 09/07/23 20:00 History atorvastatin 20 mg tablet 20 mg PO DAILY 05/31/2412/1211/24/24 History mometasone-formoterol HFA 200 2 puff inhalation BID 12/30/24 11/24/24 History mcg-5 mcg/actuation aerosol inhaler (Dulera) insulin glargine 100 unit/mL (3 20 unit subcut BEDTIME 08/11/24 12/30/24 11/24/24 History mL) subcutaneous pen (Lantus Solostar U-100 Insulin) lurasidone 80 mg tablet 80 mg PO BEDTIME 08/11/2411/24/24 History clonazepam 0.5 mg tablet 1 mg PO BID PRN Anxiety 12/1212/30/24 Unknown History gabapentin 300 mg capsule 300 mg PO BID 12/30/2412/30 Unknown History Exam Height,Weight and Vital Signs: Height 5 ft 3 in Weight 104.3 kg Last Vital Signs Temp 98.2 F 12/31/24 13:18 Pulse 69 12/31/24 13:18 Resp 20 12/31/24 13:18 BP 134/71 12/31/24 13:18 Pulse Ox 92 12/31/24 13:18 O2 Del Method High Flow Nasal Cannula, Trach Collar 12/31/24 13:18 O2 Flow Rate 50 12/31/24 13:18 FiO2 30 12/31/24 13:18 Oxygen Flow Rate 2 12/30/24 15:20 Pertinent Lab Results Pertinent Lab Results: Laboratory Tests 12/30/24 12/30/24 12/30/24 15:48 17:13 18:12 WBC 7.4 RBC 4.29 Hgb 11.9 L Hct 37.4 MCV 87.2 MCH 27.7 MCHC 31.8 RDW 13.4 Plt Count 306 MPV 9.6 Immature Gran % (Auto) 0.7 H Neut % (Auto) 70.1 Lymph % (Auto) 18.4 L [place] % (Auto) 3.9 Eos % (Auto) 6.4 H Baso % (Auto) 0.5 Lymph # (Auto) 1.4 [place] # (Auto) 0.3 Eos # (Auto) 0.5 H Baso # (Auto) 0.0 Abs Immat Gran (auto) 0.05 H Absolute Neuts (auto) 5.2 Absolute Nucleated RBC 0.000 Nucleated RBC % (auto) 0.0 Smear Tech's Comments Sodium 138 Potassium 5.2 H Chloride 98 Carbon Dioxide 28 Anion Gap 17 BUN 17 H Creatinine 1.09 Estim Creat Clear Calc 67.3 Estimated GFR 52 POC Glucose 306 H Random Glucose 424 H* Lactic Acid 2.3 H* Lactic Acid F/U @ 2Hr 1.2 Calcium 9.3 Total Bilirubin 0.2 Direct Bilirubin < 0.2 AST 35 H ALT 17 Alkaline Phosphatase 198 H Troponin I High Sens < 2.7 Total Protein 7.6 Albumin 4.0 Lipase 8 Urine Color Urine Appearance Urine pH Ur Specific [place] Urine Protein Urine Glucose (UA) Urine Ketones Urine Blood Urine Nitrite Ur Leukocyte Esterase Urine RBC Urine WBC Ur Squamous Epith Cells Urine Bacteria Hyaline Casts Influenza Type A (PCR) NEGATIVE Influenza Type B (PCR) NEGATIVE RSV RNA Qual (PCR) NEGATIVE SARS-CoV-2 RNA (RT-PCR) NEGATIVE 12/30/24 12/30/24 12/30/24 18:27 18:56 20:52 WBC RBC Hgb Hct MCV MCH MCHC RDW Plt Count MPV Immature Gran % (Auto) Neut % (Auto) Lymph % (Auto) [place] % (Auto) Eos % (Auto) Baso % (Auto) Lymph # (Auto) [place] # (Auto) Eos # (Auto) Baso # (Auto) Abs Immat Gran (auto) Absolute Neuts (auto) Absolute Nucleated RBC Nucleated RBC % (auto) Smear Tech's Comments Sodium Potassium Chloride Carbon Dioxide Anion Gap BUN Creatinine Estim Creat Clear Calc Estimated GFR POC Glucose 282 H 467 H* Random Glucose Lactic Acid Lactic Acid F/U @ 2Hr Calcium Total Bilirubin Direct Bilirubin AST ALT Alkaline Phosphatase Troponin I High Sens Total Protein Albumin Lipase Urine Color Yellow Urine Appearance Clear Urine pH 5.5 Ur Specific [place] 1.025 Urine Protein Negative Urine Glucose (UA) >=1000 H Urine Ketones Negative Urine Blood Negative Urine Nitrite Positive H Ur Leukocyte Esterase Trace H Urine RBC 0-2 Urine WBC 21-50 H Ur Squamous Epith Cells 0-2 Urine Bacteria 3+ Hyaline Casts 0-2 Influenza Type A (PCR) Influenza Type B (PCR) RSV RNA Qual (PCR) SARS-CoV-2 RNA (RT-PCR) 12/30/24 12/31/24 12/31/24 23:06 00:15 03:50 WBC 9.4 RBC 4.77 Hgb 13.2 Hct 40.8 MCV 85.5 MCH 27.7 MCHC 32.4 RDW 13.3 Plt Count 352 MPV 9.6 Immature Gran % (Auto) 1.3 H Neut % (Auto) 90.2 H Lymph % (Auto) 6.9 L [place] % (Auto) 1.1 L Eos % (Auto) 0.1 Baso % (Auto) 0.4 Lymph # (Auto) 0.7 L [place] # (Auto) 0.1 Eos # (Auto) 0.0 Baso # (Auto) 0.0 Abs Immat Gran (auto) 0.12 H Absolute Neuts (auto) 8.5 H Absolute Nucleated RBC 0.000 Nucleated RBC % (auto) 0.0 Smear Tech's Comments VERIFIED Sodium 137 Potassium 4.3 Chloride 96 Carbon Dioxide 29 Anion Gap 16 BUN 21 H Creatinine 1.05 Estim Creat Clear Calc 69.9 Estimated GFR 54 POC Glucose 483 H* 464 H* Random Glucose 436 H* Lactic Acid Lactic Acid F/U @ 2Hr Calcium 9.7 Total Bilirubin Direct Bilirubin AST ALT Alkaline Phosphatase Troponin I High Sens Total Protein Albumin Lipase Urine Color Urine Appearance Urine pH Ur Specific [place] Urine Protein Urine Glucose (UA) Urine Ketones Urine Blood Urine Nitrite Ur Leukocyte Esterase Urine RBC Urine WBC Ur Squamous Epith Cells Urine Bacteria Hyaline Casts Influenza Type A (PCR) Influenza Type B (PCR) RSV RNA Qual (PCR) SARS-CoV-2 RNA (RT-PCR) 12/31/24 12/31/24 07:07 13:41 WBC RBC Hgb Hct MCV MCH MCHC RDW Plt Count MPV Immature Gran % (Auto) Neut % (Auto) Lymph % (Auto) [place] % (Auto) Eos % (Auto) Baso % (Auto) Lymph # (Auto) [place] # (Auto) Eos # (Auto) Baso # (Auto) Abs Immat Gran (auto) Absolute Neuts (auto) Absolute Nucleated RBC Nucleated RBC % (auto) Smear Tech's Comments Sodium Potassium Chloride Carbon Dioxide Anion Gap BUN Creatinine Estim Creat Clear Calc Estimated GFR POC Glucose 292 H 391 H* Random Glucose Lactic Acid Lactic Acid F/U @ 2Hr Calcium Total Bilirubin Direct Bilirubin AST ALT Alkaline Phosphatase Troponin I High Sens Total Protein Albumin Lipase Urine Color Urine Appearance Urine pH Ur Specific [place] Urine Protein Urine Glucose (UA) Urine Ketones Urine Blood Urine Nitrite Ur Leukocyte Esterase Urine RBC Urine WBC Ur Squamous Epith Cells Urine Bacteria Hyaline Casts Influenza Type A (PCR) Influenza Type B (PCR) RSV RNA Qual (PCR) SARS-CoV-2 RNA (RT-PCR) Documented by User: Marisela Dubose MD 01/01/25 14:17 PMF Past Medical History Medical History Respiratory failure with hypoxia and hypercapnia Atelectasis Lumbar degenerative disc disease Small bowel obstruction Uncontrolled diabetes mellitus with hyperglycemia Obesity (BMI 30-39.9) Bipolar depression Anxiety Insomnia Tracheostomy present Pure hypercholesterolemia Diabetes mellitus Asymptomatic bacteriuria Morbid obesity Partial small bowel obstruction Tracheostomy dependent History of cardiac arrest Wound drainage Takotsubo cardiomyopathy Kidney stones UTI (urinary tract infection) Bipolar 1 disorder Asthma Substance abuse Family History Family History Mother No pertinent family history Father No pertinent family history Surgical History Surgical History History of tracheostomy S/P ureteral stent placement H/O exploratory laparotomy S/P cholecystectomy History of Problems with Anesthesia: No Social History Social History Household Members: None Household Members Other:: 1 Housing: Apartment Are you a primary care tech to a significant other at home: No Do you presently have visiting nurse or other home services: Yes Alcohol intake: former Comment: stayed in ed Patient Tobacco Use Status: Never used Tobacco e-Cigarette/Vaping Use: Never Used Second Hand Smoke Exposure: Yes ( smokes) Advance Directives Date on File: 02/04/23 service: No Current occupational status: disabled Cognitive needs: No Hearing needs: No Vision needs: Yes Meds Allergies Allergy/AdvReac Type Severity Reaction Status Date / Time pantoprazole Allergy Mild Redness of Verified 12/30/24 15:32 Skin Home Medications ?Medication ?Instructions ?Recorded ?Confirmed ?Last Taken ?Type escitalopram oxalate 20 mg tablet 20 mg PO BEDTIME 12/30/24 11/24/24 History famotidine 20 mg tablet 20 mg PO BID 02/02/2311/24/24 History fluticasone propionate 50 1 spray intranasal DAILY PRN 02/02/23 12/30/24 08/10/24 History mcg/actuation nasal Allergy Symptoms spray,suspension oxcarbazepine 300 mg tablet 300 mg PO BID 02/02/2311/24/24 History trazodone 150 mg tablet 150 mg PO BEDTIME PRN Sleep 02/02/23 12/30/24 09/07/23 20:00 History atorvastatin 20 mg tablet 20 mg PO DAILY 05/31/2412/1211/24/24 History mometasone-formoterol HFA 200 2 puff inhalation BID 12/30/24 11/24/24 History mcg-5 mcg/actuation aerosol inhaler (Dulera) insulin glargine 100 unit/mL (3 20 unit subcut BEDTIME 08/11/24 12/30/24 11/24/24 History mL) subcutaneous pen (Lantus Solostar U-100 Insulin) lurasidone 80 mg tablet 80 mg PO BEDTIME 08/11/2411/24/24 History clonazepam 0.5 mg tablet 1 mg PO BID PRN Anxiety 12/1212/30/24 Unknown History gabapentin 300 mg capsule 300 mg PO BID 12/30/2412/30 Unknown History Exam Airway Mallampati Class: III TM Dist: <=3cm Neck ROM: Limited Loose/Missing/Broken Teeth: Yes Heart: RRR Lungs: distant bs Assessment and Plan Assessment Anesthesia Assessment: Anesthesia Plan Discussed and Chart Reviewed Final Anesthetic Review History of Problems with Anesthesia: No NPO: Yes ASA Class: IV Final Preanesthetic Review: Meds/Allgs Chart Reviewed, Consent Obtained/Reviewed and Anes Risks/Benef Reviewed Patient Risk: High Procedure Risk: Low Anesthetic Plan Anesthetic Plan: GA Disposition: Standard PACU
--- NOTE | 2024-12-31 17:14 | P.PNIM_ITS ---
Subjective Subjective Date of Service: 12/31/24 Interval History: Patient seen and examined at bedside this morning, patient states that she is not feeling as well, has been experiencing a lot of secretions, thick, unable to be removed. Patient seen by Respiratory therapy, suggested on diagnostic and therapeutic bronchoscopy as well as tracheostomy exchange. Patient agrees. Review of Systems Review of Systems: Yes all other systems are reviewed and are negative Physical Exam 2 Exam: Exam: General: AxOx3, No acute distress Head: AT/NC ENT: Moist mucous membranes, tracheostomy in place Neck: supple CVS; RRR, S1 S2 normal Lungs: coarse bilateral breath sounds Abd: Soft non tender, non distended Ext: No edema and no calf tenderness MSK: moving all 4 limbs Skin: No cyanosis or edema Psych: Cooperative with exam Neurology: no focal deficit Vital Signs: Vital Signs: Last Vital Signs Temp 98.9 F 12/31/24 15:31 Pulse 78 12/31/24 15:40 Resp 13 12/31/24 15:40 BP 116/59 L 12/31/24 15:31 Pulse Ox 96 12/31/24 15:31 O2 Del Method Trach Collar 12/31/24 15:31 O2 Flow Rate 50 12/31/24 13:18 FiO2 30 12/31/24 13:18 Oxygen Flow Rate 2 12/30/24 15:20 BMI result Body Mass Index 40.7 Objective Data Active Medications Acetaminophen (Acetaminophen 325 Mg Tablet) 975 mg PO Q6H PRN PRN Reason: Pain, Mild 1-3,fever,headache Albuterol Sulfate (Albuterol Sulfate (0.083%) 2.5 Mg/3 Ml Vial.Neb) 2.5 mg INHALE Q2H PRN PRN Reason: Shortness of Breath/Wheezing Last Admin: 12/31/24 02:13 Dose: 2.5 mg Documented By: FANNIE Albuterol/Ipratropium (Albuterol/Iprat 2.5/0.5mg 3 Ml Ampul.Neb) 3 ml INHALE RQ4H WHILE AWAKE [facility] Last Admin: 12/31/24 15:39 Dose: 3 ml Documented By: GRAZYNA Atorvastatin Calcium (Atorvastatin Calcium 20 Mg Tablet) 20 mg PO DAILY [facility] Last Admin: 12/31/24 09:41 Dose: 20 mg Documented By: SHILPA Calcium Carbonate (Calcium Carbonate 750 Mg Tab.Chew) 750 mg PO Q4H PRN PRN Reason: Heartburn Clonazepam (Clonazepam 1 Mg Tablet) 1 mg PO BID PRN PRN Reason: Anxiety Dextrose (Dextrose 50 % 25 Gm/50 Ml Syringe) 25 gm IVPUSH Q15M PRN; Protocol PRN Reason: per Hypoglycemia Standing Ord. Enoxaparin Sodium (Enoxaparin Sodium 40 Mg/0.4 Ml Syringe) 40 mg SUBCUT Q24H [facility] Last Admin: 12/31/24 09:44 Dose: Not Given Documented By: SHILPA Non-Admin Reason: Patient Refused Famotidine (Famotidine 20 Mg Tablet) 20 mg PO BID [facility] Last Admin: 12/31/24 09:41 Dose: 20 mg Documented By: SHILPA Fluticasone Propionate (Fluticasone Propionate Nasal 16 Gm [place]) 1 spray NOSTRIL-B DAILY PRN PRN Reason: Allergy Symptoms Gabapentin (Gabapentin 300 Mg Capsule) 300 mg PO BID [facility] Last Admin: 12/31/24 09:41 Dose: 300 mg Documented By: SHILPA Glucose (Glucose Gel 15 Gm Gel..Gram.) 15 gm PO Q15M PRN; Protocol PRN Reason: per Hypoglycemia Standing Ord. Hydromorphone HCl (Hydromorphone Hcl 0.5 Mg/0.5 Ml Syringe) 0.5 mg IVPUSH Q4H PRN; Protocol PRN Reason: Pain, Severe (Pain Scale 7-10) Last Admin: 12/31/24 14:22 Dose: 0.5 mg Documented By: SHILPA Piperacillin Sod/Tazobactam (Sod 3.375 gm/ Sodium Chloride) 50 mls @ 100 mls/hr IV Q6H [facility] Last Infusion: 12/31/24 15:07 Dose: Infused Documented By: SHILPA Insulin Glargine (Insulin Glargine,Hum.Rec.Anlog 100 Unit/Ml 10 Ml Vial) 20 unit SUBCUT BEDTIME [facility] Insulin Human Lispro (Insulin Lispro 100 Unit/Ml 3 Ml Vial) 0 unit SUBCUT QIDACHS [facility]; Protocol Last Admin: 12/31/24 14:18 Dose: 15 unit Documented By: SHILPA Comments: provider notified of patient poc, DR mann requested additional 5u of insulin with meal Magnesium Hydroxide (Milk Of Magnesia 30 Ml Oral.Susp) 30 ml PO DAILY PRN PRN Reason: Constipation Melatonin (Melatonin 3 Mg Tablet) 6 mg PO BEDTIME PRN PRN Reason: Insomnia Methylprednisolone Sodium Succinate (Methylprednisolone Sod Succ 40 Mg/Ml Vial) 40 mg IVPUSH Q12H [facility] Last Admin: 12/31/24 05:22 Dose: 40 mg Documented By: SAMANTHA Oxcarbazepine (Oxcarbazepine 300 Mg Tablet) 300 mg PO BID [facility] Last Admin: 12/31/24 09:41 Dose: 300 mg Documented By: SHILPA Promethazine HCl (Promethazine Hcl 25 Mg Tablet) 25 mg PO DAILY PRN PRN Reason: Nausea Sodium Chloride (0.9 % Sodium Chloride Flush 3 Ml Syringe) 3 ml IVFLUSH QSHIFT [facility] Last Admin: 12/31/24 15:07 Dose: Not Given Documented By: SHILPA Non-Admin Reason: See Note Sodium Chloride (Sodium Chloride 3 % Inhalation 15 Ml Vial.Neb) 4 ml INHALE ONCE ONE Stop: 12/31/24 17:10 Trazodone HCl (Trazodone Hcl 50 Mg Tablet) 150 mg PO BEDTIME PRN PRN Reason: Sleep Labs 12/31/24 03:50 12/31/24 03:50 Labs: Laboratory Results - last 24 hr 12/30/24 12/30/24 12/30/24 17:13 18:12 18:27 MCV MCH MCHC RDW Plt Count MPV Immature Gran % (Auto) Neut % (Auto) Lymph % (Auto) [place] % (Auto) Eos % (Auto) Baso % (Auto) Lymph # (Auto) [place] # (Auto) Eos # (Auto) Baso # (Auto) Abs Immat Gran (auto) Absolute Neuts (auto) Absolute Nucleated RBC Nucleated RBC % (auto) Smear Tech's Comments Anion Gap Estim Creat Clear Calc Estimated GFR POC Glucose 306 H Random Glucose Lactic Acid F/U @ 2Hr 1.2 Calcium Urine Color Yellow Urine Appearance Clear Urine pH 5.5 Ur Specific [place] 1.025 Urine Protein Negative Urine Glucose (UA) >=1000 H Urine Ketones Negative Urine Blood Negative Urine Nitrite Positive H Ur Leukocyte Esterase Trace H Urine RBC 0-2 Urine WBC 21-50 H Ur Squamous Epith Cells 0-2 Urine Bacteria 3+ Hyaline Casts 0-2 12/30/24 12/30/24 12/30/24 18:56 20:52 23:06 MCV MCH MCHC RDW Plt Count MPV Immature Gran % (Auto) Neut % (Auto) Lymph % (Auto) [place] % (Auto) Eos % (Auto) Baso % (Auto) Lymph # (Auto) [place] # (Auto) Eos # (Auto) Baso # (Auto) Abs Immat Gran (auto) Absolute Neuts (auto) Absolute Nucleated RBC Nucleated RBC % (auto) Smear Tech's Comments Anion Gap Estim Creat Clear Calc Estimated GFR POC Glucose 282 H 467 H* 483 H* Random Glucose Lactic Acid F/U @ 2Hr Calcium Urine Color Urine Appearance Urine pH Ur Specific [place] Urine Protein Urine Glucose (UA) Urine Ketones Urine Blood Urine Nitrite Ur Leukocyte Esterase Urine RBC Urine WBC Ur Squamous Epith Cells Urine Bacteria Hyaline Casts 12/31/24 12/31/24 12/31/24 00:15 03:50 07:07 MCV 85.5 MCH 27.7 MCHC 32.4 RDW 13.3 Plt Count 352 MPV 9.6 Immature Gran % (Auto) 1.3 H Neut % (Auto) 90.2 H Lymph % (Auto) 6.9 L [place] % (Auto) 1.1 L Eos % (Auto) 0.1 Baso % (Auto) 0.4 Lymph # (Auto) 0.7 L [place] # (Auto) 0.1 Eos # (Auto) 0.0 Baso # (Auto) 0.0 Abs Immat Gran (auto) 0.12 H Absolute Neuts (auto) 8.5 H Absolute Nucleated RBC 0.000 Nucleated RBC % (auto) 0.0 Smear Tech's Comments VERIFIED Anion Gap 16 Estim Creat Clear Calc 69.9 Estimated GFR 54 POC Glucose 464 H* 292 H Random Glucose 436 H* Lactic Acid F/U @ 2Hr Calcium 9.7 Urine Color Urine Appearance Urine pH Ur Specific [place] Urine Protein Urine Glucose (UA) Urine Ketones Urine Blood Urine Nitrite Ur Leukocyte Esterase Urine RBC Urine WBC Ur Squamous Epith Cells Urine Bacteria Hyaline Casts 12/31/24 13:41 MCV MCH MCHC RDW Plt Count MPV Immature Gran % (Auto) Neut % (Auto) Lymph % (Auto) [place] % (Auto) Eos % (Auto) Baso % (Auto) Lymph # (Auto) [place] # (Auto) Eos # (Auto) Baso # (Auto) Abs Immat Gran (auto) Absolute Neuts (auto) Absolute Nucleated RBC Nucleated RBC % (auto) Smear Tech's Comments Anion Gap Estim Creat Clear Calc Estimated GFR POC Glucose 391 H* Random Glucose Lactic Acid F/U @ 2Hr Calcium Urine Color Urine Appearance Urine pH Ur Specific [place] Urine Protein Urine Glucose (UA) Urine Ketones Urine Blood Urine Nitrite Ur Leukocyte Esterase Urine RBC Urine WBC Ur Squamous Epith Cells Urine Bacteria Hyaline Casts Microbiology Microbiology Results: Microbiology 12/30/24 18:27 Urine Culture - Preliminary Urine clean catch - Clean Catch Midstream Culture in progress. Assessment and Plan (1) Bipolar depression: Status: Acute (2) Uncontrolled diabetes mellitus with hyperglycemia: Status: Acute (3) Tracheostomy present: Status: Acute (4) COPD (chronic obstructive pulmonary disease): Status: Acute (5) Acute exacerbation of chronic obstructive pulmonary disease: Status: Acute Plan Assessment: 54-year-old female who presented to the hospital status post tracheostomy complaining of acute on chronic hypoxic respiratory failure with pneumonia. Patient recently seen by pulmonology, suggested on bronchoscopy as well as tracheostomy exchange. Acute on chronic hypoxic respiratory failure Pneumonia -imaging reviewed -continue IV Zosyn -continue bronchodilator therapy, IV steroids, secretions as needed. We will give 1 nebulizing treatment with 3% saline -monitor and titrate oxygen via tracheostomy for SpO2 greater than 90% -pulmonology following with plan for bronchoscopy to assess for foreign bodies and mucus plugging as well as tracheostomy exchange. T2DM -continue Lantus and ISS, goal blood glucose between 140-180 mg/dL Hyperlipidemia, chronic -continue statin Mood disorder, chronic -continue home medications, with worsening to consult Psychiatry Morbid obesity -continue lifestyle modification, including weight loss Code Status: full code DVT PPx: Lovenox Quality Stroke Does the patient have a stroke diagnosis?: No VTE Prior VTE?: No VTE Risk Level:: Medical - moderate - high VTE Device Contraindication: Treatment Not Indicated VTE Drug Contraindication: N/A - Med Ordered
[2024-12-31 18:23] LABS: Glucose, Whole Blood 374 mg/dL (60-115)
--- NOTE | 2024-12-31 19:23 | PC.NURSE ---
this RN assumed care of this pt @1900, pt noted to be sitting up at the edge of the stretcher, connected to cardiac monitoring, HR 76, RR 14, pt requesting medication for pain, previous RN informed pt that Dilaudid is out of stock and pending pharmacy to refill medication, this RN reeducated pt at this time that the medication is currently still out of stock and pending pharmacy to bring med up to department.
[2024-12-31] MEDS: Insulin Glargine,Hum.rec.anlog 100 UNIT/ML 10 ML VIAL 20 UNIT SUBCUT (20:13)
[2024-12-31 20:19] LABS: Glucose, Whole Blood 403 mg/dL (60-115)
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
[2025-01-01] VITALS (23 sets, daily range): BP systolic 113–175; BP diastolic 63–91; PULSE 60–95; RESP 16–20; TEMP 36.1–37.4; O2SAT 92–98
[2025-01-01] MEDS: 0.9 % Sodium Chloride Flush 3 ML SYRINGE IVFLUSH ×4 (00:06→21:29)
[2025-01-01 07:28] LABS: Glucose, Whole Blood 397 mg/dL (60-115)
[2025-01-01] MEDS: Albuterol/Iprat 2.5/0.5MG 3 ML AMPUL.NEB INHALE ×4 (07:41→19:55)
--- NOTE | 2025-01-01 08:50 | P.PNPL_ITS ---
Subjective Subjective Date of Service: 01/01/25 Interval history: The patient was seen on exam. She is currently on trach collar. She is still coughing. She is agreeable to the bronchoscopy today to assess her cough and also to change her tracheostomy. She has a [place] 6. Objective Data Labs 12/31/24 03:50 12/31/24 03:50 Labs: Laboratory Results - last 24 hr 12/31/24 12/31/24 12/31/24 13:41 18:18 20:11 POC Glucose 391 H* 374 H* 403 H* 01/01/25 07:21 POC Glucose 397 H* Microbiology Microbiology Results: Microbiology 12/30/24 16:10 Blood - Venous Blood Culture - Preliminary No growth after 24 hours. 12/30/24 15:47 Blood - Venous Blood Culture - Preliminary No growth after 24 hours. 12/30/24 18:27 Urine clean catch - Clean Catch Midstream Urine Culture - Preliminary Culture in progress. Review of Systems Constitutional: Reports fatigue Cardiovascular: Reports dyspnea on exertion Respiratory: Reports cough, Reports dyspnea on exertion and Reports wheezing Gastrointestinal: Reports no additional gastrointestinal complaints Genitourinary: Reports no additional female genitourinary complaints Endocrine: Reports fatigue Allergic/Immunologic: Reports wheezing Physical Exam 2 Exam: Exam: General: AxOx3, No acute distress Head: AT/NC ENT: Moist mucous membranes, tracheostomy in place Neck: supple CVS; RRR, S1 S2 normal Lungs: coarse bilateral breath sounds Abd: Soft non tender, non distended Ext: No edema and no calf tenderness MSK: moving all 4 limbs Skin: No cyanosis or edema Psych: Cooperative with exam Neurology: no focal deficit Vital Signs: Vital Signs: Last Vital Signs Temp 99.4 F 01/01/25 08:40 Pulse 89 01/01/25 08:40 Resp 18 01/01/25 07:50 BP 113/72 01/01/25 08:40 Pulse Ox 98 01/01/25 08:40 O2 Del Method Oxymask 01/01/25 08:40 O2 Flow Rate 2 01/01/25 08:40 FiO2 30 12/31/24 13:18 Oxygen Flow Rate 2 12/30/24 15:20 BMI result Body Mass Index 39.1 Procedures Date of Service Date of Service: 01/01/25 Assessment and Plan Assessment and plan (1) Atelectasis: Status: Acute (2) Pneumonia: Status: Acute (3) COPD (chronic obstructive pulmonary disease): Status: Acute (4) Tracheostomy present: Status: Acute Plan The patient is agreeable to the bronchoscopy today Also plan to change her tracheostomy Continue current respiratory therapy and oxygen supplementation Time Spent With Patient Time: Total time managing care of this patient today ____ minutes. Progress Note: Quality Stroke Does the patient have a stroke diagnosis?: No
--- NOTE | 2025-01-01 08:52 | MHC.SHP ---
Pre-Procedural Eval Section A - 24 Hr Update-Section A only Date of Service: 01/01/25 The patient is an INPATIENT: Yes Section B - Complete if H&P > 30 days Chief Complaint: Acute on chronic respiratory failure. Allergies: Allergies Allergy/AdvReac Type Severity Reaction Status Date / Time pantoprazole Allergy Mild Redness of Verified 12/30/24 15:32 Skin Plan I have reviewed the history and physical and performed a pertinent physical examination on my patient. No changes have occurred unless specified. Time Spent With Patient Time: Total time managing care of this patient today ____ minutes.
[2025-01-01 11:20] LABS: Glucose, Whole Blood 286 mg/dL (60-115)
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
--- NOTE | 2025-01-01 13:58 | PC.NURSE ---
Adri from respiratory changed patient from high flow via trach to trach collar 31% at 3L for transport to OR. Dr. Gordon via bedside during transport as patient going into OR soon.
--- NOTE | 2025-01-01 14:02 | PC.NURSE ---
lungs clear/diminished throughout.
--- NOTE | 2025-01-01 14:28 | HO.PM.IMPN ---
Subjective Subjective Date of Service: 01/01/25 Interval History: Patient seen examined at bedside this morning, patient states that she is feeling better, with plans on bronchoscopy later today. Denies any complaints at this time. Physical Exam Exam: Exam: General: AxOx3, No acute distress Head: AT/NC ENT: Moist mucous membranes, tracheostomy in place Neck: supple CVS; RRR, S1 S2 normal Lungs: coarse bilateral breath sounds Abd: Soft non tender, non distended Ext: No edema and no calf tenderness MSK: moving all 4 limbs Skin: No cyanosis or edema Psych: Cooperative with exam Neurology: no focal deficit Vital Signs: Vital Signs: Last Vital Signs Temp 97.6 F 01/01/25 13:45 Pulse 60 01/01/25 13:45 Resp 20 01/01/25 13:45 BP 138/74 01/01/25 13:45 Pulse Ox 96 01/01/25 13:45 O2 Del Method Trach Collar 01/01/25 13:45 O2 Flow Rate 3 01/01/25 13:45 FiO2 31 01/01/25 13:45 Oxygen Flow Rate 2 12/30/24 15:20 BMI result Body Mass Index 39.1 Objective Data Active Medications Acetaminophen (Acetaminophen 325 Mg Tablet) 975 mg PO Q6H PRN PRN Reason: Pain, Mild 1-3,fever,headache Albuterol Sulfate (Albuterol Sulfate (0.083%) 2.5 Mg/3 Ml Vial.Neb) 2.5 mg INHALE Q2H PRN PRN Reason: Shortness of Breath/Wheezing Last Admin: 12/31/24 02:13 Dose: 2.5 mg Documented By: FANNIE Albuterol/Ipratropium (Albuterol/Iprat 2.5/0.5mg 3 Ml Ampul.Neb) 3 ml INHALE RQ4H WHILE AWAKE [facility] Last Admin: 01/01/25 11:08 Dose: 3 ml Documented By: OZZIE Atorvastatin Calcium (Atorvastatin Calcium 20 Mg Tablet) 20 mg PO DAILY [facility] Last Admin: 01/01/25 07:52 Dose: 20 mg Documented By: FRANCOISE Calcium Carbonate (Calcium Carbonate 750 Mg Tab.Chew) 750 mg PO Q4H PRN PRN Reason: Heartburn Clonazepam (Clonazepam 1 Mg Tablet) 1 mg PO BID PRN PRN Reason: Anxiety Dextrose (Dextrose 50 % 25 Gm/50 Ml Syringe) 25 gm IVPUSH Q15M PRN; Protocol PRN Reason: per Hypoglycemia Standing Ord. Famotidine (Famotidine 20 Mg Tablet) 20 mg PO BID [facility] Last Admin: 01/01/25 07:52 Dose: 20 mg Documented By: FRANCOISE Fluticasone Propionate (Fluticasone Propionate Nasal 16 Gm [place]) 1 spray NOSTRIL-B DAILY PRN PRN Reason: Allergy Symptoms Gabapentin (Gabapentin 300 Mg Capsule) 300 mg PO BID [facility] Last Admin: 01/01/25 07:52 Dose: 300 mg Documented By: FRANCOISE Glucose (Glucose Gel 15 Gm Gel..Gram.) 15 gm PO Q15M PRN; Protocol PRN Reason: per Hypoglycemia Standing Ord. Hydromorphone HCl (Hydromorphone Hcl 0.5 Mg/0.5 Ml Syringe) 0.5 mg IVPUSH Q4H PRN; Protocol PRN Reason: Pain, Severe (Pain Scale 7-10) Last Admin: 01/01/25 13:14 Dose: 0.5 mg Documented By: ADAM Piperacillin Sod/Tazobactam (Sod 3.375 gm/ Sodium Chloride) 50 mls @ 100 mls/hr IV Q6H [facility] Last Admin: 01/01/25 13:16 Dose: 100 mls/hr Documented By: ADAM Insulin Glargine (Insulin Glargine,Hum.Rec.Anlog 100 Unit/Ml 10 Ml Vial) 20 unit SUBCUT BEDTIME [facility] Last Admin: 12/31/24 20:13 Dose: 20 unit Documented By: HORACIO Insulin Human Lispro (Insulin Lispro 100 Unit/Ml 3 Ml Vial) 0 unit SUBCUT QIDACHS [facility]; Protocol Last Admin: 01/01/25 11:53 Dose: 6 unit Documented By: ADAM Magnesium Hydroxide (Milk Of Magnesia 30 Ml Oral.Susp) 30 ml PO DAILY PRN PRN Reason: Constipation Melatonin (Melatonin 3 Mg Tablet) 6 mg PO BEDTIME PRN PRN Reason: Insomnia Methylprednisolone Sodium Succinate (Methylprednisolone Sod Succ 40 Mg/Ml Vial) 40 mg IVPUSH Q12H [facility] Last Admin: 01/01/25 05:19 Dose: 40 mg Documented By: HARLEY Naloxone HCl (Naloxone Hcl 0.4 Mg/Ml Vial) 0.04 mg IVPUSH Q5M PRN PRN Reason: Excessive sedation or RR < 8 Oxcarbazepine (Oxcarbazepine 300 Mg Tablet) 300 mg PO BID [facility] Last Admin: 01/01/25 07:52 Dose: 300 mg Documented By: FRANCOISE Promethazine HCl (Promethazine Hcl 25 Mg Tablet) 25 mg PO DAILY PRN PRN Reason: Nausea Sodium Chloride (0.9 % Sodium Chloride Flush 3 Ml Syringe) 3 ml IVFLUSH QSHIFT [facility] Last Admin: 01/01/25 09:01 Dose: 3 ml Documented By: FRANCOISE Trazodone HCl (Trazodone Hcl 50 Mg Tablet) 150 mg PO BEDTIME PRN PRN Reason: Sleep Labs 12/31/24 03:50 12/31/24 03:50 Labs: Laboratory Results - last 24 hr 12/31/24 12/31/24 01/01/25 18:18 20:11 07:21 POC Glucose 374 H* 403 H* 397 H* 01/01/25 11:16 POC Glucose 286 H Microbiology Microbiology Results: Microbiology 12/30/24 18:27 Urine Culture - Preliminary Urine clean catch - Clean Catch Midstream Gram negative traci 12/30/24 16:10 Blood Culture - Preliminary Blood - Venous No growth after 24 hours. 12/30/24 15:47 Blood Culture - Preliminary Blood - Venous No growth after 24 hours. Assessment and Plan (1) Diabetes: Status: Acute (2) Tracheostomy present: Status: Acute (3) COPD (chronic obstructive pulmonary disease): Status: Acute (4) Respiratory failure with hypoxia and hypercapnia: Status: Acute Plan Assessment: 54-year-old female w/ PMH significant for cardiac arrest requiring intubation and later tracheostomy who presented to the hospital status post tracheostomy complaining of acute on chronic hypoxic respiratory failure with pneumonia. Patient recently seen by pulmonology, with plans on bronchoscopy and possible tracheostomy exchange today. Acute on chronic hypoxic respiratory failure, improved Pneumonia -imaging reviewed -continue IV Zosyn -continue bronchodilator therapy, IV steroids, secretions as needed. -monitor and titrate oxygen via tracheostomy for SpO2 greater than 90% -pulmonology following with plan for bronchoscopy today to assess for foreign bodies and mucus plugging as well as tracheostomy exchange. T2DM -continue Lantus and ISS, goal blood glucose between 140-180 mg/dL Hyperlipidemia, chronic -continue statin, monitor for any pain Mood disorder, chronic -continue home medications, with worsening to consult Psychiatry Morbid obesity -continue lifestyle modification, including weight loss Code Status: full code DVT PPx: Lovenox Disposition: All questions and concerns with the patient were answered to satisfaction. All pertinent clinical documents, images and labs were reviewed. DISCLAIMER: This document was created using voice recognition software. Any mistakes in the prescription are unintentional. An attempt was made to focus for accuracy, but to expedite availability, some errors may persist. Please contact with any need for correction or further clarification Quality Stroke Does the patient have a stroke diagnosis?: No VTE Prior VTE?: No VTE Risk Level:: Medical - moderate - high VTE Device Contraindication: Treatment Not Indicated VTE Drug Contraindication: N/A - Med Ordered
--- NOTE | 2025-01-01 15:05 | PM.OP ---
Brief Operative Note Date of Service: 01/01/25 Pre-op diagnosis: pneumonia, tracheostomy dependent Post-op diagnosis: other (tracheomalecia, tracheal granulation tissue, tracheatis) Procedure: tracheostomy change with PORTEX #6 and bronchoscopy with bilateral washings Implants: Surgeon: Selvin Barnes MD Anesthesia: GETA Was an Gang Super[employer] Pipe Lines used for this Procedure?: No Estimated blood loss (mL): 0 Condition: stable Disposition: floor
[2025-01-01 15:51] LABS: Glucose, Whole Blood 201 mg/dL (60-115)
[2025-01-01 20:26] LABS: Glucose, Whole Blood 427 mg/dL (60-115)
[2025-01-01] MEDS: Insulin Glargine,Hum.rec.anlog 100 UNIT/ML 10 ML VIAL 20 UNIT SUBCUT (21:28)
[2025-01-02] VITALS (16 sets, daily range): BP systolic 126–164; BP diastolic 71–90; PULSE 55–83; RESP 15–18; TEMP 36.4–37.1; O2SAT 92–97
[2025-01-02] MEDS: Albuterol/Iprat 2.5/0.5MG 3 ML AMPUL.NEB INHALE ×4 (07:49→18:31)
[2025-01-02 07:56] LABS: Glucose, Whole Blood 288 mg/dL (60-115)
[2025-01-02] MEDS: 0.9 % Sodium Chloride Flush 3 ML SYRINGE IVFLUSH ×3 (08:28→19:42)
--- NOTE | 2025-01-02 08:52 | HO.POSTANES ---
Post Anesthesia Evaluation Post Anesthesia Evaluation Date of Service: 01/02/25 Vital Signs: Vital Signs Temp Pulse Resp BP Pulse Ox O2 Del Method O2 Flow Rate 01/02/25 07:55 98.1 F 55 15 163/88 H 93 High Flow Nasal Cannula 50 01/02/25 07:50 18 01/02/25 07:49 68 18 01/02/25 04:35 18 01/02/25 02:52 97.5 F 60 18 164/90 H 92 High Flow Nasal Cannula 40 01/01/25 23:11 18 01/01/25 23:04 97.4 F 64 18 162/89 H 92 Room Air FiO2 01/02/25 07:55 45 01/02/25 07:50 01/02/25 07:49 01/02/25 04:35 01/02/25 02:52 45 01/01/25 23:11 01/01/25 23:04 Anesthesia: General Mental Status: Awake Pain Control: Satisfactory Nausea/Vomiting: None Hydration: Adequate Anesthesia-Related Issues: No Anes. Related Issues
--- NOTE | 2025-01-02 11:00 | MHC.CM.PN ---
Per ROUNDS discussion, Patient is not yet medically cleared for dc (trach change tomorrow); home is the goal and CM will continue to follow.
[2025-01-02 11:21] LABS: Glucose, Whole Blood 484 mg/dL (60-115)
--- NOTE | 2025-01-02 14:07 | HO.PM.IMPN ---
Subjective Subjective Date of Service: 01/02/25 Interval History: s/p trach change 01/01 less short of breath no secretions Review of Systems Review of Systems: Yes all other systems are reviewed and are negative Physical Exam Vital Signs: Vital Signs: Last Vital Signs Temp 98.8 F 01/02/25 11:22 Pulse 72 01/02/25 11:22 Resp 17 01/02/25 11:22 BP 142/71 H 01/02/25 11:22 Pulse Ox 93 01/02/25 11:22 O2 Del Method High Flow Nasal C annula 01/02/25 11:22 O2 Flow Rate 34 01/02/25 11:22 FiO2 29 01/02/25 11:22 Oxygen Flow Rate 2 12/30/24 15:20 BMI result Body Mass Index 39.1 Gen: in no acute distress HEENT: sclera anicteric, moist mucus membranes Neck: supple, trach collar in place Lungs: diminished Heart: regular rate and rhythm, no murmurs Abd: soft, non-tender, non-distended Ext: no edema Skin: warm/well-perfused Neuro: alert and oriented x3, no focal findings Psych: appropriate affect Objective Data Active Medications Acetaminophen (Acetaminophen 325 Mg Tablet) 975 mg PO Q6H PRN PRN Reason: Pain, Mild 1-3,fever,headache Albuterol Sulfate (Albuterol Sulfate (0.083%) 2.5 Mg/3 Ml Vial.Neb) 2.5 mg INHALE Q2H PRN PRN Reason: Shortness of Breath/Wheezing Last Admin: 12/31/24 02:13 Dose: 2.5 mg Documented By: FANNIE Albuterol/Ipratropium (Albuterol/Iprat 2.5/0.5mg 3 Ml Ampul.Neb) 3 ml INHALE RQ4H WHILE AWAKE [facility] Last Admin: 01/02/25 11:14 Dose: 3 ml Documented By: JACQUELINE Atorvastatin Calcium (Atorvastatin Calcium 20 Mg Tablet) 20 mg PO DAILY [facility] Last Admin: 01/02/25 08:27 Dose: 20 mg Documented By: HAYDEE Benzonatate (Benzonatate 100 Mg Capsule) 100 mg PO TID PRN PRN Reason: Cough Last Admin: 01/02/25 02:56 Dose: 100 mg Documented By: JATIN Calcium Carbonate (Calcium Carbonate 750 Mg Tab.Chew) 750 mg PO Q4H PRN PRN Reason: Heartburn Clonazepam (Clonazepam 1 Mg Tablet) 1 mg PO BID PRN PRN Reason: Anxiety Dextrose (Dextrose 50 % 25 Gm/50 Ml Syringe) 25 gm IVPUSH Q15M PRN; Protocol PRN Reason: per Hypoglycemia Standing Ord. Famotidine (Famotidine 20 Mg Tablet) 20 mg PO BID [facility] Last Admin: 01/02/25 08:27 Dose: 20 mg Documented By: HAYDEE Fluticasone Propionate (Fluticasone Propionate Nasal 16 Gm [place]) 1 spray NOSTRIL-B DAILY PRN PRN Reason: Allergy Symptoms Gabapentin (Gabapentin 300 Mg Capsule) 300 mg PO BID [facility] Last Admin: 01/02/25 08:27 Dose: 300 mg Documented By: HAYDEE Glucose (Glucose Gel 15 Gm Gel..Gram.) 15 gm PO Q15M PRN; Protocol PRN Reason: per Hypoglycemia Standing Ord. Hydromorphone HCl (Hydromorphone Hcl 0.5 Mg/0.5 Ml Syringe) 0.5 mg IVPUSH Q4H PRN; Protocol PRN Reason: Pain, Severe (Pain Scale 7-10) Last Admin: 01/02/25 12:30 Dose: 0.5 mg Documented By: HAYDEE Piperacillin Sod/Tazobactam (Sod 3.375 gm/ Sodium Chloride) 50 mls @ 100 mls/hr IV Q6H [facility] Last Infusion: 01/02/25 09:07 Dose: Infused Documented By: HAYDEE Insulin Glargine (Insulin Glargine,Hum.Rec.Anlog 100 Unit/Ml 10 Ml Vial) 20 unit SUBCUT BEDTIME [facility] Last Admin: 01/01/25 21:28 Dose: 20 unit Documented By: JATIN Insulin Human Lispro (Insulin Lispro 100 Unit/Ml 3 Ml Vial) 0 unit SUBCUT QIDACHS [facility]; Protocol Last Admin: 01/02/25 11:59 Dose: 18 unit Documented By: HAYDEE Magnesium Hydroxide (Milk Of Magnesia 30 Ml Oral.Susp) 30 ml PO DAILY PRN PRN Reason: Constipation Melatonin (Melatonin 3 Mg Tablet) 6 mg PO BEDTIME PRN PRN Reason: Insomnia Methylprednisolone Sodium Succinate (Methylprednisolone Sod Succ 40 Mg/Ml Vial) 40 mg IVPUSH Q12H [facility] Last Admin: 01/02/25 05:00 Dose: 40 mg Documented By: JATIN Naloxone HCl (Naloxone Hcl 0.4 Mg/Ml Vial) 0.04 mg IVPUSH Q5M PRN PRN Reason: Excessive sedation or RR < 8 Oxcarbazepine (Oxcarbazepine 300 Mg Tablet) 300 mg PO BID [facility] Last Admin: 01/02/25 08:27 Dose: 300 mg Documented By: HAYDEE Promethazine HCl (Promethazine Hcl 25 Mg Tablet) 25 mg PO DAILY PRN PRN Reason: Nausea Sodium Chloride (0.9 % Sodium Chloride Flush 3 Ml Syringe) 3 ml IVFLUSH QSHIFT [facility] Last Admin: 01/02/25 08:28 Dose: 3 ml Documented By: HAYDEE Trazodone HCl (Trazodone Hcl 50 Mg Tablet) 150 mg PO BEDTIME PRN PRN Reason: Sleep Labs 12/31/24 03:50 12/31/24 03:50 Labs: Laboratory Results - last 24 hr 01/01/25 01/01/25 01/02/25 15:44 20:23 07:13 POC Glucose 201 H 427 H* 288 H 01/02/25 10:46 POC Glucose 484 H* Microbiology Microbiology Results: Microbiology 01/01/25 14:10 Gram Stain - Final Bronchial Washings Routine Culture - Preliminary Culture in progress. 12/30/24 18:27 Urine Culture - Final Urine clean catch - Clean Catch Midstream Klebsiella pneumoniae 12/30/24 16:10 Blood Culture - Preliminary Blood - Venous No growth after 48 hours. 12/30/24 15:47 Blood Culture - Preliminary Blood - Venous No growth after 48 hours. Assessment and Plan (1) Diabetes: Status: Acute (2) Tracheostomy present: Status: Acute (3) COPD (chronic obstructive pulmonary disease): Status: Acute (4) Respiratory failure with hypoxia and hypercapnia: Status: Acute Plan d4, 54yo F with hx cardiac arrest followed by intubation and tracheostomy admitted for acute/chronic hypoxic respiratory failure due to PNA acute/chronic hypoxic respiratory failure due to pneumonia/tracheitis - continue IV piperacillin-tazobactam 12/30-, IV methylprednisolone, nebs - Pulm consulted, s/p tracheostomy change with PORTEX #6 and bronchoscopy with bilateral washings 01/[address] Barnes; procedure showed tracheomalecia, tracheal granulation tissue, tracheitis; plan another change tomorrow ESBL bacteruria: likely colonizer rather than pathogen DM2 with steroid-induced hyperglycemia: increase basal and bolus insulins HLD: statin mood disorder: oxcarbazepine morbid obesity: diet/exercise counseling VTE ppx: enoxaparin dispo: likely home tomorrow In my clinical judgment, the patient requires continued inpatient hospitalization for the following reasons: trach change Total time managing care of this patient today: 35 minutes. Quality Stroke Does the patient have a stroke diagnosis?: No VTE Prior VTE?: No VTE Risk Level:: Medical - moderate - high VTE Device Contraindication: Treatment Not Indicated VTE Drug Contraindication: N/A - Med Ordered
--- NOTE | 2025-01-02 16:30 | P.PNPL_ITS ---
Subjective Subjective Date of Service: 01/02/25 Interval history: the patient was seen on exam. She is status post bronchoscopy. We did exchange her tracheostomy for 6. Portex. It seems to be doing better especially with her significant tracheal stenosis and tracheomalacia. The stiffer plastic PVC tracheostomies he is more effective. Although with her malacia she does have a hard time coughing and expectorating through her small diameter tracheostomy. Therefore I did recommend she have a upsized to a 7. Tracheostomy. Will plan to do that tomorrow. Otherwise the patient is doing well. Objective Data Labs 12/31/24 03:50 12/31/24 03:50 Labs: Laboratory Results - last 24 hr 01/01/25 01/02/25 01/02/25 20:23 07:13 10:46 POC Glucose 427 H* 288 H 484 H* Microbiology Microbiology Results: Microbiology 01/01/25 14:10 Bronchial Washings Gram Stain - Final 01/01/25 14:10 Bronchial Washings Routine Culture - Preliminary Culture in progress. 12/30/24 18:27 Urine clean catch - Clean Catch Midstream Urine Culture - Final Klebsiella pneumoniae 12/30/24 16:10 Blood - Venous Blood Culture - Preliminary No growth after 48 hours. 12/30/24 15:47 Blood - Venous Blood Culture - Preliminary No growth after 48 hours. Review of Systems Constitutional: Reports fatigue Cardiovascular: Reports dyspnea on exertion Respiratory: Reports cough, Reports dyspnea on exertion and Reports wheezing Gastrointestinal: Reports no additional gastrointestinal complaints Genitourinary: Reports no additional female genitourinary complaints Endocrine: Reports fatigue Allergic/Immunologic: Reports wheezing Physical Exam 2 Exam: Exam: General: AxOx3, No acute distress Head: AT/NC ENT: Moist mucous membranes, tracheostomy in place Neck: supple CVS; RRR, S1 S2 normal Lungs: coarse bilateral breath sounds Abd: Soft non tender, non distended Ext: No edema and no calf tenderness MSK: moving all 4 limbs Skin: No cyanosis or edema Psych: Cooperative with exam Neurology: no focal deficit Vital Signs: Vital Signs: Last Vital Signs Temp 97.9 F 01/02/25 15:48 Pulse 83 01/02/25 15:48 Resp 18 01/02/25 15:48 BP 126/78 01/02/25 15:48 Pulse Ox 94 01/02/25 15:48 O2 Del Method High Flow Nasal C annula 01/02/25 15:48 O2 Flow Rate 34 01/02/25 15:48 FiO2 29 01/02/25 15:48 Oxygen Flow Rate 2 12/30/24 15:20 BMI result Body Mass Index 39.1 Procedures Date of Service Date of Service: 01/02/25 Assessment and Plan Assessment and plan (1) Atelectasis: Status: Acute (2) COPD (chronic obstructive pulmonary disease): Status: Acute (3) Tracheostomy present: Status: Acute Plan Continue respiratory therapy continue oxygen supplementation plan to up size tracheostomy tomorrow at the bedside Time Spent With Patient Time: Total time managing care of this patient today ____ minutes. Progress Note: Quality Stroke Does the patient have a stroke diagnosis?: No
[2025-01-02 16:32] LABS: Glucose, Whole Blood 321 mg/dL (60-115)
[2025-01-02 20:27] LABS: Glucose, Whole Blood 422 mg/dL (60-115)
[2025-01-02] MEDS: Insulin Glargine,Hum.rec.anlog 100 UNIT/ML 10 ML VIAL 25 UNIT SUBCUT (20:58)
[2025-01-03] VITALS (9 sets, daily range): BP systolic 127–154; BP diastolic 56–77; PULSE 52–75; RESP 16–20; TEMP 36.1–36.9; O2SAT 90–95
[2025-01-03] MEDS: Albuterol/Iprat 2.5/0.5MG 3 ML AMPUL.NEB INHALE ×3 (07:30→15:24)
[2025-01-03 07:52] LABS: Glucose, Whole Blood 395 mg/dL (60-115)
[2025-01-03] MEDS: 0.9 % Sodium Chloride Flush 3 ML SYRINGE IVFLUSH (08:36)
--- NOTE | 2025-01-03 09:44 | P.PNPL_ITS ---
Subjective Subjective Date of Service: 01/03/25 Interval history: The patient was seen on exam. Her tracheostomy was upsized at the bedside placing a 6.5 inner diameter Shiley. She tolerated very well. She is tolerating the PMV which is reassuring specially with the trachea stenosis and tracheomalacia. Her cough primarily due to the by bone collapsing when she was putting enough pressure on it. Objective Data Labs 12/31/24 03:50 12/31/24 03:50 Labs: Laboratory Results - last 24 hr 01/02/25 01/02/25 01/02/25 10:46 16:18 20:16 POC Glucose 484 H* 321 H 422 H* 01/03/25 07:45 POC Glucose 395 H* Microbiology Microbiology Results: Microbiology 01/01/25 14:10 Bronchial Washings Gram Stain - Final 01/01/25 14:10 Bronchial Washings Routine Culture - Preliminary Culture in progress. 12/30/24 18:27 Urine clean catch - Clean Catch Midstream Urine Culture - Final Klebsiella pneumoniae 12/30/24 16:10 Blood - Venous Blood Culture - Preliminary No growth after 48 hours. 12/30/24 15:47 Blood - Venous Blood Culture - Preliminary No growth after 48 hours. Review of Systems Constitutional: Reports fatigue Cardiovascular: Reports dyspnea on exertion Respiratory: Reports cough, Reports dyspnea on exertion and Reports wheezing Gastrointestinal: Reports no additional gastrointestinal complaints Genitourinary: Reports no additional female genitourinary complaints Endocrine: Reports fatigue Allergic/Immunologic: Reports wheezing Physical Exam 2 Exam: Exam: General: AxOx3, No acute distress Head: AT/NC ENT: Moist mucous membranes, tracheostomy in place Neck: supple CVS; RRR, S1 S2 normal Lungs: coarse bilateral breath sounds Abd: Soft non tender, non distended Ext: No edema and no calf tenderness MSK: moving all 4 limbs Skin: No cyanosis or edema Psych: Cooperative with exam Neurology: no focal deficit Vital Signs: Vital Signs: Last Vital Signs Temp 97.4 F 01/03/25 07:59 Pulse 52 01/03/25 07:59 Resp 20 01/03/25 07:59 BP 154/56 H 01/03/25 07:59 Pulse Ox 95 01/03/25 07:59 O2 Del Method High Flow Nasal C annula 01/03/25 07:59 O2 Flow Rate 35 01/03/25 07:59 FiO2 30 01/03/25 07:59 Oxygen Flow Rate 2 12/30/24 15:20 BMI result Body Mass Index 39.1 Procedures Date of Service Date of Service: 01/03/25 Assessment and Plan Assessment and plan (1) Atelectasis: Status: Acute (2) COPD (chronic obstructive pulmonary disease): Status: Acute (3) Tracheostomy present: Status: Acute Plan Continue respiratory therapy continue oxygen supplementation, titrate to a trach collar and try to wean down the oxygen to maintain a pulse ox above 90% upsized tracheostomy tomorrow at the bedside, Dilip 6.5mm ([id number]) Continue with the tracheostomy clinic patient should also follow up with Pulmonary Time Spent With Patient Time: Total time managing care of this patient today ____ minutes. Progress Note: Quality Stroke Does the patient have a stroke diagnosis?: No
[2025-01-03 11:39] LABS: Glucose, Whole Blood 297 mg/dL (60-115)
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
--- NOTE | 2025-01-03 12:46 | MHC.CM.PN ---
Patient has been medically cleared for dc to home today, self care. Patient will dc via Ambulance at 3PM today.
--- NOTE | 2025-01-03 15:51 | MHC.CM.PN ---
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
[2025-01-03 16:20] LABS: Glucose, Whole Blood 341 mg/dL (60-115)
--- NOTE | 2025-01-04 03:11 | OP_ITS ---
DATE OF SERVICE: 01/01/2025 SURGEON: Selvin Barnes MD PREOPERATIVE DIAGNOSIS: POSTOPERATIVE DIAGNOSIS: PROCEDURE PERFORMED: Tracheostomy change with a Portex #6, bronchoscopy with bilateral washings. ESTIMATED BLOOD LOSS: COMPLICATIONS: ANESTHESIA: General endotracheal anesthesia provided. ASSISTANTS: SPECIMENS: ASA CLASSIFICATION: III. PREOPERATIVE DIAGNOSES: Tracheostomy dependent and cough and pneumonia. POSTOPERATIVE DIAGNOSES: Tracheal stenosis with granulation tissue, tracheitis, tracheomalacia, and tracheostomy dependent. 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 DESCRIPTION OF PROCEDURE: After the patient was adequately sedated, the flexible digital bronchoscope was inserted via the ET tube to the level of the trachea. There appeared to be some evidence of granulation tissue and growth and some circumferential swelling of the trachea consistent with her tracheal stenosis due to the granulation tissue. The patient did have some components of also tracheomalacia when coughing with floppiness of the trachea. This was all likely secondary to the chronic tracheostomy placement. The bronchoscope was then navigated to the entire tracheobronchial tree that was examined up to the subsegmental level. The patient did have some mucoid secretions that were easily suctioned. No other endobronchial lesions or masses noted. The #6 Portex seemed to fit well. No complications. We did also visualize the vocal cords from above and they did move symmetrically to the midline. We did not go through the vocal cords, however. The bronchoscope was then removed. The total endoscopic time approximately about 20 minutes. Patient tolerated procedure well. Vital signs were stable throughout the procedure. No complications noted. MD ANDRIY Lr/KAYLIN / [id number]
== END 2025-01-03 17:21 | disposition home or self-care (01) | DRG 139 ==
LOC: HO.ED 18:04 → HO.EDOVER 19:00 → HO.IMC 12-31 20:57
PROVIDERS: Hospitalist; Student in an Organized Health Care Education/Training Program; Admitting Provider Internal Medicine; Emergency Provider Emergency Medicine; PCP Internal Medicine; Visit Provider Family Medicine
PROC: 0BJ08ZZ Inspection of Tracheobronchial Tree, Via Natural or Artificial Opening Endoscopic (ICD-10-PCS; CPT 31622; principal; 2025-01-01 13:40)
DX: J18.9 Pneumonia, unspecified organism (principal); J96.21 Acute and chronic respiratory failure with hypoxia; E87.21 Acute metabolic acidosis; Z86.74 Personal history of sudden cardiac arrest; Z99.81 Dependence on supplemental oxygen; Z93.0 Tracheostomy status; E66.01 Morbid (severe) obesity due to excess calories; J98.11 Atelectasis; Z68.41 Body mass index [BMI] 40.0-44.9, adult; E78.5 Hyperlipidemia, unspecified; Z71.3 Dietary counseling and surveillance; J04.10 Acute tracheitis without obstruction; E11.65 Type 2 diabetes mellitus with hyperglycemia; J44.0 Chronic obstructive pulmonary disease with (acute) lower respiratory infection; J44.1 Chronic obstructive pulmonary disease with (acute) exacerbation; Z20.822 Contact with and (suspected) exposure to COVID-19; J96.22 Acute and chronic respiratory failure with hypercapnia; Z68.39 Body mass index [BMI] 39.0-39.9, adult; Z86.711 Personal history of pulmonary embolism; Z91.199 Patient's noncompliance with other medical treatment and regimen due to unspecified reason; Z79.4 Long term (current) use of insulin; Z79.52 Long term (current) use of systemic steroids; Z79.899 Other long term (current) drug therapy
CPT/HCPCS: 36415; 71045; 80048; 80076; 81001; 82947; 83605; 83690; 84484; 85025; 87040; 87070; 87086; 87088; 87186; 87205; 87637; 93005; 94640; 99285; J0131; J0165; J1171; J1271; J2003; J2543; J2919; J3475; J7120

== ENCOUNTER → 2024-12-30 15:35 | Outpatient (BNV) | payer OTHER, SELFPAY | PROVIDERS: Emergency Provider Emergency Medicine; PCP Internal Medicine; Visit Provider Radiology Diagnostic Radiology | DX: R06.02 Shortness of breath (principal) | CPT/HCPCS: 71045 ==

== ENCOUNTER → 2024-12-30 15:35 | Outpatient (BNV) | payer OTHER, SELFPAY | PROVIDERS: Admitting Provider Internal Medicine; Emergency Provider Emergency Medicine; PCP Internal Medicine; Visit Provider Internal Medicine Cardiovascular Disease | DX: R06.02 Shortness of breath (principal) | CPT/HCPCS: 93010 ==

== ENCOUNTER → 2024-12-30 18:57 | Outpatient (BNV) | payer OTHER, SELFPAY | PROVIDERS: Admitting Provider Internal Medicine; Emergency Provider Emergency Medicine; PCP Internal Medicine; Visit Provider Hospitalist | DX: J98.11 Atelectasis (principal); J44.9 Chronic obstructive pulmonary disease, unspecified; Z93.0 Tracheostomy status | CPT/HCPCS: 99223; 99233 ==

== ENCOUNTER → 2024-12-30 18:57 | Outpatient (BNV) | payer OTHER, SELFPAY | PROVIDERS: Admitting Provider Internal Medicine; Emergency Provider Emergency Medicine; PCP Internal Medicine; Visit Provider Internal Medicine | DX: E11.9 Type 2 diabetes mellitus without complications (principal); Z93.0 Tracheostomy status; J44.9 Chronic obstructive pulmonary disease, unspecified; J96.21 Acute and chronic respiratory failure with hypoxia; J96.22 Acute and chronic respiratory failure with hypercapnia | CPT/HCPCS: 99232 ==

== ENCOUNTER → 2025-02-20 11:23 | Outpatient (BNVA) | payer OTHER, SELFPAY | PROVIDERS: PCP Internal Medicine | DX: Z59.10 Inadequate housing, unspecified (principal) | CPT/HCPCS: 99211 ==

== ENCOUNTER 2025-02-20 12:07 | Emergency (ER) | payer OTHER, SELFPAY ==
--- NOTE | ~2025-02-20 | XR_ITS ---
EXAMINATION: XR CHEST 1 VIEW HISTORY: dyspnea COMPARISON: Comparison is made with the prior examination dated 12/30/2024. FINDINGS: A single AP portable view of the chest performed at 1:15 PM is submitted. The examination is limited by underpenetration and patient body habitus. Tracheostomy tube is again noted. The lungs are grossly clear. There is no pleural effusion, pneumothorax, or pulmonary vascular congestion. The heart is normal in size. There is degenerative disc disease of the spine. XR/XR chest 1V IMPRESSION: Limited examination as described. The lungs are grossly clear. Electronically signed by: Aleksey Fields MD 02/20/2025 01:32 PM [facility]
[2025-02-20 12:18] VITALS: BP 109/79; BP 160/78; PULSE 104; PULSE 98; RESP 22; TEMP 37.3; O2SAT 96; O2SAT 99; BMI 37.1
--- NOTE | 2025-02-20 12:25 | ED.SOB ---
HPI - SOB/Dyspnea General Chief Complaint: Dyspnea Stated Complaint: SOB 3x week, trach in place, BS 535 Time Seen by Provider: 02/20/25 12:09 Source: patient and EMS Mode of arrival: EMS Limitations: no limitations History of Present Illness ED Provider: HPI Narrative: 54-year-old woman trach dependent, states in December was diagnosed with pneumonia [place] was admitted for few days for respiratory issues, presenting with shortness of breath both exertional and nonexertional, did not really have to suction her trach more, she is also oxygen dependent and has not changed she is on 3 L, she is also endorsing chronic back pain. Related Data Home Medications ?Medication ?Instructions ?Recorded ?Confirmed escitalopram oxalate 20 mg tablet 20 mg PO BEDTIME 02/02/23 12/30/24 famotidine 20 mg tablet 20 mg PO BID 02/02/23 12/30/24 fluticasone propionate 50 1 spray intranasal DAILY PRN 02/02/23 12/30/24 mcg/actuation nasal Allergy Symptoms spray,suspension oxcarbazepine 300 mg tablet 300 mg PO BID 02/02/23 12/30/24 trazodone 150 mg tablet 150 mg PO BEDTIME PRN Sleep 02/02/23 12/30/24 atorvastatin 20 mg tablet 20 mg PO DAILY 05/31/24 12/30/24 mometasone-formoterol HFA 200 2 puff inhalation BID 05/31/24 12/30/24 mcg-5 mcg/actuation aerosol inhaler (Dulera) lurasidone 80 mg tablet 80 mg PO BEDTIME 08/11/24 12/30/24 clonazepam 0.5 mg tablet 1 mg PO BID PRN Anxiety 12/30/24 12/30/24 Previous Rx's ?Medication ?Instructions ?Recorded blood sugar diagnostic (FreeStyle #100 ea 07/10/24 Lite Strips) blood-glucose meter (FreeStyle #1 ea 07/10/24 Lite Meter kit) lancets 28 gauge (FreeStyle #100 ea 07/10/24 Lancets) insulin lispro 100 unit/mL 1 sliding scale dose subcut TIDAC 08/21/24 subcutaneous pen 30 days #15 mL FreeStyle Myesha 3 Plus Sensor #2 ea 12/05/24 (blood-glucose sensor) fexofenadine 180 mg tablet 180 mg PO DAILY PRN allergy 12/19/24 symptoms 30 days #30 tabs promethazine 25 mg tablet 25 mg PO DAILY PRN nausea #30 tabs 12/19/24 amoxicillin 875 mg-potassium 1 tab PO BID #6 tabs 01/03/25 clavulanate 125 mg tablet insulin glargine 100 unit/mL 25 unit (0.25 mL) subcut BEDTIME 01/03/25 subcutaneous solution (Lantus #10 mL U-100 Insulin) prednisone 10 mg tablet See Rx Instructions .Route 01/03/25 .COMPLEX #20 tabs Shiley Cuffless Trach #1 ea 01/08/25 ibuprofen 800 mg tablet 800 mg PO Q8H PRN pain #90 tabs 01/29/25 albuterol sulfate 90 mcg/actuation 2 puff inhalation Q4H PRN wheezing 02/08/25 aerosol inhaler (Ventolin HFA) #8.5 grams gabapentin 300 mg capsule 300 mg PO TID #90 caps 02/10/25 azithromycin 250 mg tablet See Rx Instructions PO .COMPLEX #6 02/20/25 tabs prednisone 20 mg tablet 40 mg (2 x 20 mg) PO DAILY 7 days 02/20/25 #14 tabs Allergies Allergy/AdvReac Type Severity Reaction Status Date / Time pantoprazole Allergy Mild Redness of Verified 02/20/25 12:19 Skin Review of Systems Constitutional: Constitutional: Reports as per [facility] Past Medical History Medical History Acute hyperglycemia COPD (chronic obstructive pulmonary disease) Acute exacerbation of chronic obstructive pulmonary disease Pneumonia Respiratory distress Diabetes Respiratory failure with hypoxia and hypercapnia Atelectasis Lumbar degenerative disc disease Small bowel obstruction Uncontrolled diabetes mellitus with hyperglycemia Obesity (BMI 30-39.9) Bipolar depression Anxiety Insomnia Tracheostomy present Pure hypercholesterolemia Diabetes mellitus Asymptomatic bacteriuria Morbid obesity Partial small bowel obstruction Tracheostomy dependent History of cardiac arrest Wound drainage Takotsubo cardiomyopathy Kidney stones UTI (urinary tract infection) Bipolar 1 disorder Asthma Substance abuse Surgical History History of tracheostomy S/P ureteral stent placement H/O exploratory laparotomy S/P cholecystectomy Family History Family History Mother No pertinent family history Father No pertinent family history Social History Social History Household Members: None Household Members Other:: 1 Housing: Apartment Are you a primary healthcare corporate account director to a significant other at home: No Do you presently have visiting nurse or other home services: Yes Alcohol intake: former Comment: stayed in ed Patient Tobacco Use Status: Never used Tobacco e-Cigarette/Vaping Use: Never Used Second Hand Smoke Exposure: Yes ( smokes) Advance Directives: Yes Advance Directives on File: Yes Advance Directives Date on File: 02/04/23 Do you have a plan to hurt others: No Plan service: No Current occupational status: disabled Cognitive needs: No Hearing needs: No Vision needs: Yes Physical Exam Exam: Exam: ?General: ??looks age appropriate Trach insertion site clean and dry, there was no phlegm ?CV: RRR, no obvious murmurs appreciated ?Resp: ?Diffuse expiratory wheezing Abd: ?Obese, nontender MSK: FROM, strength 5/5 all extremities Skin: Warm, dry, intact, ?Neuro: ?Alert and oriented x3, moving upper and lower extremities symmetrically, no obvious facial asymmetry noted, cranial nerves 2-12 intact Vital Signs: Vital Signs: Last Vital Signs Temp 99.2 F 02/20/25 12:18 Pulse 95 02/20/25 12:32 Resp 22 H 02/20/25 12:32 BP 109/79 02/20/25 12:18 Pulse Ox 96 02/20/25 12:18 O2 Del Method Room Air 02/20/25 12:18 BMI result Body Mass Index 37.1 Medications Administered Discontinued Medications Generic Name Dose Route Start Last Admin Trade Name Kerwinq PRN Reason Stop Dose Admin Albuterol Sulfate 7.5 mg/ 0 mg 02/20/25 12:30 02/20/25 12:38 Albuterol/Ipratropium 3 ml INHALE 02/20/25 12:31 10 each ONCE ONE Administration Hydromorphone HCl 0.5 mg 02/20/25 12:33 02/20/25 13:11 Hydromorphone Hcl 0.5 Mg/0.5 Ml Syringe IVPUSH 02/20/25 12:34 0.5 mg ONCE ONE Administration Protocol Methylprednisolone Sodium Succinate 60 mg 02/20/25 12:35 02/20/25 13:13 Methylprednisolone Sod Succ 125 Mg/2 Ml Vial IVPUSH 02/20/25 12:36 60 mg ONCE ONE Administration Medical Decision Making Medical Decision Making [facility] Narrative: 12:50 PM 02/20/2025 (Dr. Kehinde Correa): Trach dependent, wheezing on exam we will initiate management does have history of asthma/COPD, reports pneumonia in December and then admission when she was in [place] last month as well was on antibiotics, chronic back pain requesting pain medications, we will provide dose here she does have history of opiate dependence on methadone Differential Diagnosis Differential Diagnoses: The differential diagnosis associated with the presentation includes (CHF, COPD exacerbation, pneumonia, pneumothorax, ACS, PE,) Lab Data 02/20/25 13:07 02/20/25 13:07 Labs: Lab Results 02/20/25 02/20/25 Range/Units 13:07 13:18 WBC 11.4 H (4.8-10.8) X10*3/uL RBC 4.94 (4.20-5.50) X10*6/uL Hgb 13.9 (12.0-16.0) g/dl Hct 42.5 (37.0-47.0) % MCV 86.0 (80.0-98.0) fL MCH 28.1 (27.0-33.0) pg MCHC 32.7 (31.0-35.0) g/dl RDW 12.8 (11.0-16.0) % Plt Count 301 (160-400) X10*3/uL MPV 9.5 (9.4-12.3) fL Immature Gran % (Auto) 0.3 (0.0-0.4) % Neut % (Auto) 76.6 H (45-73) % Lymph % (Auto) 14.2 L (20-40) % [place] % (Auto) 4.5 (2-11) % Eos % (Auto) 4.1 H (0-4) % Baso % (Auto) 0.3 (0-2) % Lymph # (Auto) 1.6 (1.2-4.9) X10*3/uL [place] # (Auto) 0.5 (0.1-1.2) X10*3/uL Eos # (Auto) 0.5 H (0.0-0.4) X10*3/uL Baso # (Auto) 0.0 (0.0-0.2) X10*3/uL Abs Immat Gran (auto) 0.03 (0.00-0.03) X10*3/uL Absolute Neuts (auto) 8.8 H (2.0-8.3) x10*3/uL Absolute Nucleated RBC 0.000 (0.0-0.012) X10*3/uL Nucleated RBC % (auto) 0.0 (0.0-0.2) /100WBC VBG pH 7.35 (7.32-7.43) VBG pCO2 57 mmHg VBG pO2 39 mmHg VBG HCO3 32 H (22-26) mmol/L VBG O2 Saturation 58.0 % VBG Base Excess 5.2 mmol/L Sodium 134 L (135-145) mmol/L Potassium 4.2 (3.3-5.1) mmol/L Chloride 96 (96-108) mmol/L Carbon Dioxide 34 H (22-29) mmol/L Anion Gap 8 L (12-20) BUN 17 H (9-16) mg/dL Creatinine 1.05 (0.5-1.4) mg/dL Estim Creat Clear Calc 66.3 Estimated GFR 54 Random Glucose 400 H* (60-115) mg/dL Calcium 9.2 (8.4-10.2) mg/dL Total Bilirubin 0.4 (0.0-1.0) mg/dL AST 14 (5-31) U/L ALT 14 (0-31) U/L Alkaline Phosphatase 167 H (39-117) U/L Troponin I High Sens < 2.7 (<3.5-17.0) ng/L NT-Pro-B Natriuret Pep 35.1 (<300) pg/mL Total Protein 7.0 (6.5-8.0) g/dL Albumin 4.0 (3.5-5.0) g/dL Lipase 9 (8-78) U/L Influenza Type A (PCR) NEGATIVE (Negative) Influenza Type B (PCR) NEGATIVE (Negative) RSV RNA Qual (PCR) NEGATIVE (Negative) SARS-CoV-2 RNA (RT-PCR) NEGATIVE (Negative) Critical Care Time Critical Care Time Critical Care Time: Yes Total Critical Care Time: 35 Attestation: Time is exclusive of separately billable procedures. Time includes: direct patient care, patient reassessment, coordination of patient care, interpretation of data (laboratory data, pulse oximetry, arterial blood gases and chest xrays), review of patient's medical records, medical consultation and documentation of patient care. Procedures excluded from critical care time: central intravenous line placement and electrocardiography. Discharge Plan Discharge Clinical Impression: Asthma exacerbation in COPD, Poorly controlled diabetes mellitus, Tracheostomy dependence Additional Instructions: Continue steroids starting tomorrow, chest x-ray without obvious infection Blood work with slight dehydration given fluids, and insulin for hyperglycemia Viral swab negative Please follow up with the process control engineer I am also starting you on azithromycin just giving her history as azithromycin has anti-inflammatory as well as antibacterial properties Worsening issues concerns come back to the ER Prescriptions: New prednisone 20 mg tablet 40 mg PO DAILY 7 Days Qty: 14 0RF azithromycin 250 mg tablet See Rx Instructions PO .COMPLEX Qty: 6 0RF Rx Instructions: For 250 mg dose pack: take 500 mg today (day 1), then 250 mg for 4 days (days 2-5) No Action insulin lispro 100 unit/mL insulin pen 1 sliding scale dose subcut TIDAC 30 Days Qty: 15 3RF Rx Instructions: 2 to 20 units TID with meals per sliding scale fexofenadine 180 mg tablet 180 mg PO DAILY PRN (Reason: allergy symptoms) 30 Days Qty: 30 3RF promethazine 25 mg tablet 25 mg PO DAILY PRN (Reason: nausea) Qty: 30 0RF (DME) Shiley Cuffless Trach inner 6.5 mm and outer 9.4mm See Rx Instructions .Route .MEDSUPPLY Qty: 1 11RF Rx Instructions: As directed ibuprofen 800 mg tablet 800 mg PO Q8H PRN (Reason: pain) Qty: 90 0RF Rx Instructions: Take with food albuterol sulfate [Ventolin HFA] 90 mcg/actuation HFA aerosol inhaler 2 puff inhalation Q4H PRN (Reason: wheezing) Qty: 8.5 2RF gabapentin 300 mg capsule 300 mg PO TID Qty: 90 0RF lurasidone 80 mg tablet 80 mg PO BEDTIME clonazepam 0.5 mg tablet 1 mg PO BID PRN (Reason: Anxiety) prednisone 10 mg tablet See Rx Instructions .ROUTE .COMPLEX Qty: 20 0RF Rx Instructions: 40 mg daily x 2 days, then 30 mg daily x 2 days, then 20 mg daily x 2 days, then 10 mg daily x 2 days amoxicillin-pot clavulanate 875-125 mg tablet 1 tab PO BID Qty: 6 0RF insulin glargine [Lantus U-100 Insulin] 100 unit/mL Solution 25 unit subcut BEDTIME Qty: 10 0RF oxcarbazepine 300 mg tablet 300 mg PO BID famotidine 20 mg tablet 20 mg PO BID trazodone 150 mg tablet 150 mg PO BEDTIME PRN (Reason: Sleep) fluticasone propionate 50 mcg/actuation spray,suspension 1 spray intranasal DAILY PRN (Reason: Allergy Symptoms) Rx Instructions: INHALE IN BOTH NOSTRILS escitalopram oxalate 20 mg tablet 20 mg PO BEDTIME atorvastatin 20 mg Tablet 20 mg PO DAILY Dulera 200-5 mcg/actuation Hfa Aerosol Inhaler 2 puff INHALATION BID (DME) FreeStyle Myesha 3 Plus Sensor Device See Rx Instructions .Route Qty: 2 4RF Rx Instructions: As directed change every 15 days (DME) blood-glucose meter [FreeStyle Lite Meter] Kit See Rx Instructions .ROUTE .MEDSUPPLY Qty: 1 0RF Rx Instructions: As directed (DME) FreeStyle Lite Strips Strip See Rx Instructions .ROUTE .MEDSUPPLY Qty: 100 12RF Rx Instructions: As directed 3 times a day (DME) lancets [FreeStyle Lancets] 28 gauge misc See Rx Instructions .ROUTE .MEDSUPPLY Qty: 100 12RF Rx Instructions: As directed 3 times a day Print Language: Kosovan
--- NOTE | 2025-02-20 12:30 | ECG_ITS ---
Test Reason : DYSPNEA Blood Pressure : */* mmHG Vent. Rate : 102 BPM Atrial Rate : 102 BPM P-R Int : 158 ms QRS Dur : 92 ms QT Int : 364 ms P-R-T Axes : 52 -5 38 degrees QTcB Int : 474 ms Sinus tachycardia Possible Anterior infarct (cited on or before 31-May-2024) Abnormal ECG When compared with ECG of 30-Dec-2024 16:13, No significant change was found Referred By: Kehinde Correa Electronically Signed By: LAMBERT DE LA CRUZ MD
[2025-02-20 12:31] VITALS: PULSE 94; RESP 22; O2SAT 96
[2025-02-20 12:32] VITALS: PULSE 95; RESP 22; O2SAT 96
[2025-02-20] MEDS: Albuterol Sulfate 7.5 MG, Albuterol/Iprat 2.5/0.5MG 3 ML 3 ML INHALE (12:38)
[2025-02-20 13:18] LABS: MANUAL DIFF FLAG NO
[2025-02-20 13:19] LABS: Hematocrit 42.5 % (37.0-47.0); Hemoglobin 13.9 g/dl (12.0-16.0); Imm Gran Abs Auto 0.03 X10*3/uL (0.00-0.03); Imm Gran Pct Auto 0.3 % (0.0-0.4); Lymphocytes Absolute Auto 1.6 X10*3/uL (1.2-4.9); Mean Corpuscular HGB Conc 32.7 g/dl (31.0-35.0); Mean Corpuscular Hemoglobin 28.1 pg (27.0-33.0); Mean Corpuscular Volume 86.0 fL (80.0-98.0); NRBC Abs Auto 0.000 X10*3/uL (0.0-0.012); NRBC Pct Auto 0.0 /100WBC (0.0-0.2); Platelet Count 301 X10*3/uL (160-400); Red Blood Count 4.94 X10*6/uL (4.20-5.50); White Blood Count 11.4 X10*3/uL (4.8-10.8)
[2025-02-20 13:21] LABS: Venous Blood Gas Refer to POC result
[2025-02-20 13:22] LABS: VBG HCO3 32 mmol/L (22-26); VBG O2 % Saturation 58.0 %
[2025-02-20 13:42] LABS: NT Pro B Type Natriuretic Pept 35.1 pg/mL (<300)
[2025-02-20 13:44] LABS: Alanine Aminotransferase 14 U/L (0-31); Albumin Level 4.0 g/dL (3.5-5.0); Alkaline Phosphatase 167 U/L (39-117); Anion Gap 8 (12-20); Aspartate Amino Transferase 14 U/L (5-31); Blood Urea Nitrogen 17 mg/dL (9-16); Calcium 9.2 mg/dL (8.4-10.2); Carbon Dioxide 34 mmol/L (22-29); Chloride 96 mmol/L (96-108); Creatinine Clr Calc Pharmacy 66.3; Estimated Glomerular Filt Rate 54; Lipase 9 U/L (8-78); Potassium 4.2 mmol/L (3.3-5.1); Sodium 134 mmol/L (135-145); Total Protein 7.0 g/dL (6.5-8.0); Troponin-I High Sensitivity < 2.7 ng/L (<3.5-17.0)
[2025-02-20 14:33] LABS: Resp Syncy Virus RNA Qual PCR NEGATIVE (Negative); SARS COV2 PCR INHOUSE NEGATIVE (Negative)
[2025-02-20 15:07] LABS: Glucose, Whole Blood 339 mg/dL (60-115)
--- NOTE | 2025-02-20 15:53 | PC.NURSE ---
MD aware of blood sugar 339, stating to still give 12 units IVP insulin
[2025-02-20 16:03] LABS: Glucose, Whole Blood 255 mg/dL (60-115)
[2025-02-20 16:50] VITALS: BP 149/88; PULSE 84; RESP 18; TEMP 37.3; O2SAT 96
[2025-02-20 18:20] VITALS: BP 149/88; PULSE 84; RESP 18; TEMP 37.3; O2SAT 96
== END 2025-02-20 18:20 | disposition home or self-care (01) ==
PROVIDERS: Emergency Provider Emergency Medicine; PCP Internal Medicine
DX: J44.1 Chronic obstructive pulmonary disease with (acute) exacerbation (principal); E11.65 Type 2 diabetes mellitus with hyperglycemia; Z93.0 Tracheostomy status; Z03.818 Encounter for observation for suspected exposure to other biological agents ruled out; E78.00 Pure hypercholesterolemia, unspecified; Z99.81 Dependence on supplemental oxygen; Z79.899 Other long term (current) drug therapy; Z79.4 Long term (current) use of insulin; Z79.02 Long term (current) use of antithrombotics/antiplatelets
CPT/HCPCS: 36415; 71045; 80053; 82803; 82947; 83690; 83880; 84484; 85025; 87040; 87637; 93005; 94640; 96361; 96374; 96375; 96376; 99284; 99291; J1171; J2919

== ENCOUNTER → 2025-02-20 12:30 | Outpatient (BNV) | payer OTHER, SELFPAY | PROVIDERS: Emergency Provider Emergency Medicine; PCP Internal Medicine; Visit Provider Radiology Diagnostic Radiology | DX: R06.00 Dyspnea, unspecified (principal) | CPT/HCPCS: 71045 ==

== ENCOUNTER → 2025-02-20 12:30 | Outpatient (BNV) | payer OTHER, SELFPAY | PROVIDERS: Emergency Provider Emergency Medicine; PCP Internal Medicine; Visit Provider Internal Medicine Cardiovascular Disease | DX: R00.0 Tachycardia, unspecified (principal) | CPT/HCPCS: 93010 ==

== ENCOUNTER 2025-03-09 16:57 | Emergency (ER) | payer OTHER, SELFPAY ==
--- OUTSIDE RECORDS SUMMARY | 2025-03-07 23:59 | XMS_ITS | Continuity of Care Document ---
Author Organization [facility] Pulmonary edicine Address [address] [place] [id number]- Care Team Providers Care Referral Management Liaison Name Role Phone Jackelyn Iram CHAVES Primary Care Physician Encounter [facility] [place] Date(s): 02/05/25 - 03/07/25 [facility] Pulmonary Medicine [address] [place] [address] [place] [id number] Encounter Type: Triage Allergies, Adverse Reactions, Alerts Substance Criticality Severity Reaction Reaction Severity Status pantoprazole 1, 2 High criticality Severe Skin r quinn Blanching of skin Active 1Rash on side of face 2Blanching of lower extremities Immunizations Given and Recorded Vaccine Date Status Refusal Reason SARS-CoV-2 (COVID-19) mRNA BNT-162b2 vac 08/08/20 Recorded SARS-CoV-2 (COVID-19) mRNA BNT-162b2 vac 07/14/20 Recorded influenza virus vaccine, inactivated 11/26/19 Mendel rded influenza virus vaccine, inactivated 11/13/19 Mendel rded influenza virus vaccine, inactivated 11/04/18 Mendel rded influenza virus vaccine, inactivated 01/06/18 Mendel rded influenza virus vaccine, inactivated 01/28/16 Mendel rded influenza virus vaccine, inactivated 12/18/14 Mendel rded influenza virus vaccine, inactivated 12/16/13 Mendel rded influenza virus vaccine, inactivated 11/21/12 Mendel rded influenza virus vaccine, inactivated 12/09/11 Mendel rded influenza virus vaccine, inactivated 12/13/08 Mendel rded tetanus/diphtheria/pertussis, acel(Tdap) 01/06/18 Recorded tetanus-diphtheria toxoids (Td) 04/14/06 Recorded Medications Albuterol 2 puffs, Inhalation, 4 times a day, 0 Refills, Maintenance, 02/24/11 5:41:07 PM EST Start Date: 02/24/11 Status: Ordered Medication Dispense Status: Completed Total Allowed Fills: 1 Fills Dispensed: 0 albuterol-ipratropium 3 mg-0.5 mg/3 ml inhalation solution 3 mL, Neb, 4 times a day, PRN Wheezing/Shortness of Breath, # 360 mL, 11 Refills, Maintenance, 11/03/23 8:31:00 AM EDT, Solution, [id number], Partial fill upon patient request if the prescription is for a schedule II opioid drug., 3 mL Neb 4 times a day,PRN:Wheezing/Shortness of Breath, 159,cm, 11/03/23 8:06:00 EDT, Height, 101.3, kg, 07/21/22 7:56:00 EDT, Dry Weight Start Date: 11/03/23 Status: Ordered Medication Dispense Status: Completed Quantity: 360.0 Unit: mL Total Allowed Fills: 12 Fills Dispensed: 0 Indications: Severe persistent asthma, uncomplicated; apixaban = 5 mg, By Mouth, 2 times a day, 0 Refills, Maintenance, 04/08/21 10:08:00 AM EST, Tablet, Partial fill upon patient request if the prescription is for a schedule II opioid drug. Start Date: 04/08/21 Status: Ordered Medication Dispense Status: Completed Total Allowed Fills: 1 Fills Dispensed: 0 atorvastatin 10 mg oral tablet 1 tablet = 10 mg, By Mouth, Daily, 0 Refills, Maintenance, 05/17/20 5:57:00 PM EST, Partial fill uponpatient request if the prescription is for a schedule II opioid drug. Start Date: 05/17/20 Status: Ordered Medication Dispense Status: Completed Total Allowed Fills: 1 Fills Dispensed: 0 bisacodyl 10 mg rectal suppository 1 supp = 10 mg, Rectally, 2 times a day, PRN Constipation, 0 Refills, Maintenance, 04/08/21 10:15:00AM EST, Suppository, Partial fill upon patient request if the prescription is for a schedule II opioid drug. Start Date: 04/08/21 Status: Ordered Medication Dispense Status: Completed Total Allowed Fills: 1 Fills Dispensed: 0 cholecalciferol 2000 intl units oral tablet By Mouth, Daily, 0 Refills, Maintenance, 04/08/21 10:15:00 AM EST, Tablet, Partial fill upon patientrequest if the prescription is for a schedule II opioid drug. Start Date: 04/08/21 Status: Ordered Medication Dispense Status: Completed Total Allowed Fills: 1 Fills Dispensed: 0 clonazePAM 1 mg oral tablet 1 tablet = 1 mg, By Mouth, Every 6 hours, TAKE 1 TABLET BY MOUTH FOUR TIMES A DAY NEEDED, # 12 tablet, 0 Refills, Maintenance, 04/07/21 12:27:00 PM EST, Tablet, Partial fill upon patient request ifthe prescription is for a schedule II opioid drug. Start Date: 04/07/21 Stop Date: 04/10/21 Status: Ordered Medication Dispense Status: Completed Quantity: 12.0 Unit: tablet Total Allowed Fills: 1 Fills Dispensed: 0 docusate sodium 150 mg/15 ml oral liquid 10 mL = 100 mg, By Mouth, 2 times a day, PRN Constipation, 0 Refills, Maintenance, 04/08/21 10:11:00AM EST, Liquid, Partial fill upon patient request if the prescription is for a schedule II opioid drug. Start Date: 04/08/21 Status: Ordered Medication Dispense Status: Completed Total Allowed Fills: 1 Fills Dispensed: 0 formoterol-mometasone 5 mcg-200 mcg/inh inhalation aerosol 2 puffs, Inhalation, 2 times a day, rinse mouth and throat after use, # 13 Gm, 11 Refills, Maintenance, 11/03/23 8:26:00 AM EDT, [facility] #[id number], Partial fill upon patient request if the prescription is for a schedule II opioid drug., 2 puffs Inhalation 2 times a day,Instr:rinse mouth and throat after use, 159, cm, 11/03/23 8:06:00 EDT, Height, 101.3, kg, 07/21/22 7:56:00 EDT, Dry Weight Start Date: 11/03/23 Status: Ordered Medication Dispense Status: Completed Quantity: 13.0 Unit: g Total Allowed Fills: 12 Fills Dispensed: 0 Indications: Severe persistent asthma, uncomplicated; Insulin Lispro 10-24 units, Subcutaneous Injection, 3 times a day with meals and bedtime, << Sliding Scale Comments >> 100 - 139 10 units Call if less than 70 140 - 179 12 units 180 - 219 14 units 220 - 259 16 units 260 - 299 18 units 300 - 339 20 units 340 - 379 22 units 380 - 419 24 units Call if greater than 400 << Sliding Scale Comments >>, 0 Refills, Maintenance, 04/08/21 10:11:00 AM EST, Injection, Partial fill upon patient request if the prescription is for a schedule II opioid drug. Start Date: 04/08/21 Status: Ordered Medication Dispense Status: Completed Total Allowed Fills: 1 Fills Dispensed: 0 Lantus Inj 0.27 mL = 27 units, Subcutaneous Injection, Daily at bedtime, 0 Refills, Maintenance, 04/08/21 10:10:00 AM EST, Injection, Partial fill upon patient request if the prescription is for a schedule II opioid drug. Start Date: 04/08/21 Status: Ordered Medication Dispense Status: Completed Total Allowed Fills: 1 Fills Dispensed: 0 Lexapro 20 mg oral tablet 1 tablet = 20 mg, By Mouth, Daily, # 30 tablet, 0 Refills, Maintenance, 05/17/20 5:56:00 PM EST, Tablet, Partial fill upon patient request if the prescription is for a schedule II opioid drug. Start Date: 05/17/20 Status: Ordered Medication Dispense Status: Completed Quantity: 30.0 Unit: tablet Total Allowed Fills: 1 Fills Dispensed: 0 lurasidone 40 mg oral tablet 1 tablet = 40 mg, By Mouth, Every 24 hours, 0 Refills, Maintenance, 04/08/21 10:14:00 AM EST, Tablet, Partial fill upon patient request if the prescription is for a schedule II opioid drug. Start Date: 04/08/21 Status: Ordered Medication Dispense Status: Completed Total Allowed Fills: 1 Fills Dispensed: 0 OXcarbazepine 300 mg oral tablet Refills 0, Maintenance, 10/31/20 9:01:00 PM EDT, Partial fill upon patient request if the prescription is for a schedule II opioid drug. Start Date: 10/31/20 Status: Ordered Medication Dispense Status: Completed Total Allowed Fills: 1 Fills Dispensed: 0 promethazine 25 mg oral tablet TAKE 1 TABLET BY MOUTH DAILY NEEDED FOR NAUSEA. Start Date: 05/03/22 Status: Ordered Medication Dispense Status: Completed Total Allowed Fills: 1 Fills Dispensed: 0 Promptcare Promptcare, See Instructions, # 1 each, Refills 11, Tot. Refills 11, Maintenance, new Trach . Innercanula size 6 Shiley What size DME product is being requested (if applicable): _ 6, 02/06/25 9:31:00 AM EST, Supply Start Date: 02/06/25 Status: Ordered Medication Dispense Status: Completed Quantity: 1.0 Unit: each Total Allowed Fills: 12 Fills Dispensed: 0 QUEtiapine 100 mg oral tablet 100 mg, 1, tablet, By Mouth, Every 8 hours, Refills 0, Maintenance, 04/08/21 10:11:00 AM EST, Partial fill upon patient request if the prescription is for a schedule II opioid drug. Start Date: 04/08/21 Status: Ordered Medication Dispense Status: Completed Total Allowed Fills: 1 Fills Dispensed: 0 traZODone 50 mg oral tablet 100 mg, 2, tablet, By Mouth, Daily at bedtime, Refills 0, Maintenance, 04/08/21 10:09:00 AM EST, Partial fill upon patient request if the prescription is for a schedule II opioid drug. Start Date: 04/08/21 Status: Ordered Medication Dispense Status: Completed Total Allowed Fills: 1 Fills Dispensed: 0 Problem List Condition Confirmation Course Effective Dates Status H ealth Status Informant Asthma Confirmed Active Bipolar disorder Confirmed Active Depression Confirmed Active Severe obesity (BMI 35.0-39.9) with comorbidity Confirmed Active Acquired tracheomalacia Confirmed Active Type 2 diabetes mellitus Confirmed Active Social History Social History Type Response Smoking Status Former smoker, quit more than 30 days ago entered on: 11/03/23 Sex Sex Representation Female (finding) Patient Care team information Care Team Personnel Name: Iram Hayden DMD Position: [facility] Physician (General Medicine) Member Role: PCP Address: [address] [place] [address]- Telecom: Name: Beverly Lopes RN Position: [facility] AMB Nurse Member Role: Primary Care Nurse Name: Ike Uribe MD Position: [facility] Renal MD Member Role: Lifetime Consulting Physician Address: [address] [place] [address]- [place] Telecom: Name: Rosette Kim RN Position: [facility] RN Member Role: Primary Care Nurse Name: Krystal Dixon RN Position: [facility] RN Member Role: Primary Care Nurse Name: Bernice Saravia RN Position: [facility] RN Member Role: Primary Care Nurse Name: Mirtha Hernandez RN Position: [facility] RN Supv Member Role: Primary Care Nurse Name: Rhys Bonilla MD Position: [facility] Renal MD Member Role: Lifetime Consulting Physician Address: [address] [facility] [address]- [place] Telecom: Name: Leslie Rodriguez Position: [facility] RN Member Role: Primary Care Nurse Name: Connor Tavares RN Position: [facility] SN RN Member Role: Primary Care Nurse Name: Roberto Davila RN Position: [facility] RN Member Role: Primary Care Nurse Name: Gabriela Jaramillo RN Position: [facility] RN Member Role: Primary Care Nurse Name: Dannie Aburto RN Position: [facility] RN Member Role: Primary Care Nurse Name: Diana Donahue RN Position: [facility] RN Member Role: Primary Care Nurse Name: Karen Verduzco RN Position: [facility] ROSA No Tools Member Role: Primary Care Nurse Name: Myrna Barkley RN Position: [facility] RN Member Role: Primary Care Nurse Name: Carolin Cervantes RN Position: [facility] RN Member Role: Primary Care Nurse Name: Wan Stein RN Position: [facility] ED RN W/OE and Tasks Member Role: Primary Care Nurse Name: Jessy Bhagat RN Position: [facility] RN Member Role: Primary Care Nurse Name: Danika Eller RN Position: [facility] RN Member Role: Primary Care Nurse Name: Warner Jones RN Position: [facility] RN Supv Member Role: Primary Care Nurse Name: Rosmery Low RN Position: [facility] RN Member Role: Primary Care Nurse Name: Jessy Dobbs RN Position: [facility] RN Member Role: Primary Care Nurse Name: Clyde Lambert RN Position: [facility] RN Member Role: Primary Care Nurse Name: Charley Mendoza RN Position: [facility] RN Member Role: Primary Care Nurse Name: Radha Rios RN Position: [facility] RN Member Role: Primary Care Nurse Name: Tram Harris RN Position: [facility] RN Member Role: Primary Care Nurse Name: Felisa Mack RN Position: [facility] RN Member Role: Primary Care Nurse Name: Felisa Espinoza RN Position: [facility] RN Member Role: Primary Care Nurse Name: Brijesh Serrano MD Position: [facility] Outreach Member Role: Lifetime Consulting Physician Address: [address] [facility] [place] [id number] Telecom: Name: Aimee Lin RN Position: [facility] RN Member Role: Primary Care Nurse Name: Serena Dooley RN Position: [facility] RN Member Role: Primary Care Nurse Name: Liyah Astudillo RN Position: [facility] RN Member Role: Primary Care Nurse Name: Nikita Naidu MD Position: [facility] Renal MD Member Role: Lifetime Consulting Physician Address: [address] [facility] [place], [place] [address] Telecom: Name: Danae Yepez RN Position: [facility] RN Member Role: Primary Care Nurse Name: Sharri Butcher RN Position: [facility] RN Member Role: Primary Care Nurse Name: Tammi Jacob RN Position: [facility] RN Member Role: Primary Care Nurse Name: Fermin Jacob RN Position: [facility] ED RN W/OE and Tasks Member Role: Primary Care Nurse Name: Jodie Martínez RN Position: [facility] RN Member Role: Primary Care Nurse Name: Kenneth Dee RN Position: [facility] RN Member Role: Primary Care Nurse Care Team Related Persons Name: DOM CASTAÑEDA Name: KAILYN BUSH Name: CHAD BUSH JR Insurance Providers Guarantor name: SAKSHI PETERSONOSTA Health Plan Information #: 1 Payer: [employer] Payer Identifier: NA Member Number: [id number] Group Number: [id number] Subscriber Identifier: NA Relationship to Subscriber: self Coverage Type: NA Coverage Verification Date: NA Telecom: NA Address: NA
--- OUTSIDE RECORDS SUMMARY | 2025-03-07 23:59 | XMS_ITS | Continuity of Care Document ---
Author Organization [facility] Pulmonary edicine Address [address] [place] [address]- Care Team Providers Care Recreation Activities Coordinator Name Role Phone Jackelyn Iram CHAVES Primary Care Physician Encounter [facility] [place] Date(s): 02/05/25 - 03/07/25 [facility] Pulmonary Medicine [address] [place] [address] [place] [id number] Encounter Type: Triage Allergies, Adverse Reactions, Alerts [...] 11 Refills, Maintenance, 11/03/23 8:26:00 AM EDT, [facility]/pharmacy #[id number], Partial fill upon patient request if [...] Team Personnel Name: Iram Hayden DMD Position: [facility] Physician (General Medicine) Member Role: PCP Address: [address] [place] [address]- Telecom: Name: Beverly Lopes RN Position: [facility] AMB Nurse Member Role: Primary Care Nurse Name: Ike Uribe MD Position: [facility] Renal MD Member Role: Lifetime Consulting Physician Address: [address] [facility] [place] [address]- [place] Telecom: Name: Rosette Kim RN Position: [facility] RN Member Role: Primary Care Nurse Name: Krystal Dixon RN Position: [facility] RN Member Role: Primary Care Nurse Name: Bernice Saravia RN Position: [facility] RN Member Role: Primary Care Nurse Name: Mirtha Hernandez RN Position: [facility] RN Supv Member Role: Primary Care Nurse Name: Rhys Bonilla MD Position: [facility] Renal MD Member Role: Lifetime Consulting Physician Address: [address] [facility] [place] [address]- [place] Telecom: Name: Leslie Rodriguez Position: [facility] RN Member Role: Primary Care Nurse Name: Connor Tavares RN Position: [facility] SN RN Member Role: Primary Care Nurse Name: Roberto Davila RN Position: [facility] RN Member Role: Primary Care Nurse Name: Gabriela Jaramillo RN Position: [facility] RN Member Role: Primary Care Nurse Name: Dannie Aburto RN Position: [facility] RN Member Role: Primary Care Nurse Name: Diana Donahue RN Position: [facility] RN Member Role: Primary Care Nurse Name: Karen Verduzco RN Position: [facility] ROSA No Tools Member Role: Primary Care Nurse Name: Myrna Barkley RN Position: [facility] RN Member Role: Primary Care Nurse Name: Carolin Cervantes RN Position: [facility] RN Member Role: Primary Care Nurse Name: Wan Stein RN Position: [facility] ED RN W/OE and Tasks Member Role: Primary Care Nurse Name: Jessy Bhagat RN Position: [facility] RN Member Role: Primary Care Nurse Name: Danika Eller RN Position: [facility] RN Member Role: Primary Care Nurse Name: Warner Jones RN Position: [facility] RN Supv Member Role: Primary Care Nurse Name: Rosmery Low RN Position: [facility] RN Member Role: Primary Care Nurse Name: Jessy Dobbs RN Position: [facility] RN Member Role: Primary Care Nurse Name: Clyde Lambert RN Position: [facility] RN Member Role: Primary Care Nurse Name: Charley Mendoza RN Position: [facility] RN Member Role: Primary Care Nurse Name: Radha Rios RN Position: [facility] RN Member Role: Primary Care Nurse Name: Tram Harris RN Position: [facility] RN Member Role: Primary Care Nurse Name: Felisa Mack RN Position: [facility] RN Member Role: Primary Care Nurse Name: Felisa Espinoza RN Position: [facility] RN Member Role: Primary Care Nurse Name: Brijesh Serrano MD Position: [facility] Outreach Member Role: Lifetime Consulting Physician Address: [address] [facility] [place] [id number] Telecom: Name: Aimee Lin RN Position: [facility] RN Member Role: Primary Care Nurse Name: Serena Dooley RN Position: [facility] RN Member Role: Primary Care Nurse Name: Liyah Astudillo RN Position: [facility] RN Member Role: Primary Care Nurse Name: Nikita Naidu MD Position: [facility] Renal MD Member Role: Lifetime Consulting Physician Address: [address] [facility] [place], [place] [address] Telecom: Name: Danae Yepez RN Position: [facility] RN Member Role: Primary Care Nurse Name: Sharri Butcher RN Position: [facility] RN Member Role: Primary Care Nurse Name: Tammi Jacob RN Position: [facility] RN Member Role: Primary Care Nurse Name: Fermin Jacob RN Position: [facility] ED RN W/OE and Tasks Member Role: Primary Care Nurse Name: Jodie Martínez RN Position: [facility] RN Member Role: Primary Care Nurse Name: Kenneth Dee RN Position: [facility] RN Member Role: Primary Care Nurse Care Team Related Persons Name: DOM CASTAÑEDA Name: KAILYN BUSH Name: CHAD BUSH JR Insurance Providers Guarantor name: SAKSHI PETERSONOSTA Health Plan Information #: 1 Payer: [employer] Payer Identifier: NA Member Number: [id number] Group Number: [id number] Subscriber Identifier: NA Relationship to Subscriber: self Coverage Type: NA Coverage Verification Date: NA Telecom: NA Address: NA
[2025-03-09] VITALS (7 sets, daily range): BP systolic 100–162; BP diastolic 56–92; PULSE 85–102; RESP 16–22; TEMP 36.9–37; O2SAT 93–96; BMI 40.2
--- NOTE | ~2025-03-09 | XR_ITS ---
CLINICAL HISTORY: sob 1 view chest x-ray. Comparison: CR/SR - XR CHEST 1 VIEW - 02/20/25 13:15 EST CR - XR CHEST 1V - 12/30/24 15:54 EDT Findings: Stable lung volumes. Subsegmental basilar atelectasis lungs are otherwise clear. No pneumothorax or pleural effusion. Heart size normal. No passive venous congestion. No midline shift or tracheal deviation. No acute fracture. Tracheostomy present. Impression: 1. No acute cardiopulmonary disease. This document has been electronically signed by: Jose Tsang MD on 03/09/2025 18:26:19
--- NOTE | 2025-03-09 16:59 | ED.GENADULT ---
HPI - General Adult General Chief complaint: Dyspnea Stated complaint: Trach, DIff Breathing extra phlegm, O2 2L tachy Time Seen by Provider: 03/09/25 16:58 Source: patient Mode of arrival: ambulatory Limitations: no limitations History of Present Illness ED Provider: Dr. Fortune HPI narrative: 54-year-old female history of chornic respiratory failure with tracheostomy collar, on 3 L nasal cannula at baseline, diabetes presented to ER today for evaluation of shortness of breath. Patient stated that she had recent sick contact of her grandchildren's who were sick this past holidays. She stated she has been coughing more. Related Data Home Medications ?Medication ?Instructions ?Recorded ?Confirmed escitalopram oxalate 20 mg tablet 20 mg PO BEDTIME 02/02/23 12/30/24 famotidine 20 mg tablet 20 mg PO BID 02/02/23 12/30/24 fluticasone propionate 50 1 spray intranasal DAILY PRN 02/02/23 12/30/24 mcg/actuation nasal Allergy Symptoms spray,suspension oxcarbazepine 300 mg tablet 300 mg PO BID 02/02/23 12/30/24 trazodone 150 mg tablet 150 mg PO BEDTIME PRN Sleep 02/02/23 12/30/24 atorvastatin 20 mg tablet 20 mg PO DAILY 05/31/24 12/30/24 mometasone-formoterol HFA 200 2 puff inhalation BID 05/31/24 12/30/24 mcg-5 mcg/actuation aerosol inhaler (Dulera) lurasidone 80 mg tablet 80 mg PO BEDTIME 08/11/24 12/30/24 clonazepam 0.5 mg tablet 1 mg PO BID PRN Anxiety 12/30/24 12/30/24 Previous Rx's ?Medication ?Instructions ?Recorded blood sugar diagnostic (FreeStyle #100 ea 07/10/24 Lite Strips) blood-glucose meter (FreeStyle #1 ea 07/10/24 Lite Meter kit) lancets 28 gauge (FreeStyle #100 ea 07/10/24 Lancets) insulin lispro 100 unit/mL 1 sliding scale dose subcut TIDAC 08/21/24 subcutaneous pen 30 days #15 mL FreeStyle Myesha 3 Plus Sensor #2 ea 12/05/24 (blood-glucose sensor) fexofenadine 180 mg tablet 180 mg PO DAILY PRN allergy 12/19/24 symptoms 30 days #30 tabs promethazine 25 mg tablet 25 mg PO DAILY PRN nausea #30 tabs 12/19/24 amoxicillin 875 mg-potassium 1 tab PO BID #6 tabs 01/03/25 clavulanate 125 mg tablet insulin glargine 100 unit/mL 25 unit (0.25 mL) subcut BEDTIME 01/03/25 subcutaneous solution (Lantus #10 mL U-100 Insulin) prednisone 10 mg tablet See Rx Instructions .Route 01/03/25 .COMPLEX #20 tabs Shiley Cuffless Trach #1 ea 01/08/25 albuterol sulfate 90 mcg/actuation 2 puff inhalation Q4H PRN wheezing 02/08/25 aerosol inhaler (Ventolin HFA) #8.5 grams gabapentin 300 mg capsule 300 mg PO TID #90 caps 02/10/25 azithromycin 250 mg tablet See Rx Instructions PO .COMPLEX #6 02/20/25 tabs prednisone 20 mg tablet 40 mg (2 x 20 mg) PO DAILY 7 days 02/20/25 #14 tabs ibuprofen 800 mg tablet 800 mg PO Q8H PRN pain #90 tabs 02/28/25 azithromycin 250 mg tablet See Rx Instructions PO .COMPLEX #6 03/09/25 tabs benzonatate 200 mg capsule 200 mg PO TID PRN cough #20 caps 03/09/25 insulin lispro 100 unit/mL 1 sliding scale dose subcut 03/09/25 subcutaneous pen (Humalog KwikPen USEASDIRECTD #15 mL (U-100) Insulin) prednisone 20 mg tablet 40 mg (2 x 20 mg) PO DAILY 5 days 03/09/25 #10 tabs Allergies Allergy/AdvReac Type Severity Reaction Status Date / Time pantoprazole Allergy Mild Redness of Verified 03/09/25 17:10 Skin Review of Systems Review of Systems: Pertinent review of systems as mentioned in HPI. All other system otherwise negative. [facility] Past Medical History [facility] Narrative: Medical history as mentioned in [facility] Medical History Acute hyperglycemia COPD (chronic obstructive pulmonary disease) Acute exacerbation of chronic obstructive pulmonary disease Pneumonia Respiratory distress Diabetes Respiratory failure with hypoxia and hypercapnia Atelectasis Lumbar degenerative disc disease Small bowel obstruction Uncontrolled diabetes mellitus with hyperglycemia Obesity (BMI 30-39.9) Bipolar depression Anxiety Insomnia Tracheostomy present Pure hypercholesterolemia Diabetes mellitus Asymptomatic bacteriuria Morbid obesity Partial small bowel obstruction Tracheostomy dependent History of cardiac arrest Wound drainage Takotsubo cardiomyopathy Kidney stones UTI (urinary tract infection) Bipolar 1 disorder Asthma Substance abuse Surgical History History of tracheostomy S/P ureteral stent placement H/O exploratory laparotomy S/P cholecystectomy Family History Family History Mother No pertinent family history Father No pertinent family history Social History Social History Household Members: None Household Members Other:: 1 Housing: Apartment Are you a primary dialysis patient care technician to a significant other at home: No Do you presently have visiting nurse or other home services: Yes Alcohol intake: former Comment: stayed in ed Patient Tobacco Use Status: Never used Tobacco Smoked in Last 30 Days: No e-Cigarette/Vaping Use: Never Used Second Hand Smoke Exposure: Yes ( smokes) Use of substances other than those prescribed or required for medical reasons: No Advance Directives: No Advance Directives Information Provided: No Advance Directives Date on File: 02/04/23 Patient : No service: No Current occupational status: disabled Cognitive needs: No Hearing needs: No Vision needs: Yes Physical Exam ED Exam Exam: General: Pleasant, no distress, interacting appropriately Head: Normacephalic, atraumatic ENT: oral mucosa moist, neck supple, no tracheal deviation, trach collar in place Cardiovascular: regular rate, regular rhythm, no murmurs, rubbing, gallops Respiratory: Bilateral wheezing, no sign of significant tachypnea Gastrointestinal: Soft, non distended, non tender, non guarding Extremities: No limb pain or swelling, no calf tenderness Neurological: Awake and alert, no facial droop noted Skin: Warm and dry Psychiatric: Appropriate mood and thoughts Vital Signs: Vital Signs - 24 hr 03/09/25 17:08 03/09/25 18:11 03/09/25 18:21 Temperature 98.6 F Pulse Rate 98 85 89 Respiratory Rate 22 H 22 H 20 Blood Pressure 132/73 100/56 L Pulse Oximetry 93 95 Oxygen Delivery Method Nasal Cannula Oxygen Flow Rate 03/09/25 21:03 Temperature 98.4 F Pulse Rate 92 Respiratory Rate 16 Blood Pressure 137/82 Pulse Oximetry 93 Oxygen Delivery Method Nasal Cannula Oxygen Flow Rate 3 BMI result Body Mass Index 40.2 Medications Administered Discontinued Medications Generic Name Dose Route Start Last Admin Trade Name Frank PRN Reason Stop Dose Admin Acetaminophen 975 mg 03/09/25 17:21 03/09/25 17:45 Acetaminophen 325 Mg Tablet PO 03/09/25 17:22 975 mg ONCE ONE Administration Albuterol Sulfate 5 mg/ 0 mg 03/09/25 17:54 03/09/25 18:04 Albuterol/Ipratropium 3 ml INHALE 03/09/25 17:55 1 each ONCE ONE Administration Hydromorphone HCl 1 mg 03/09/25 17:21 03/09/25 17:45 Hydromorphone Hcl 2 Mg Tablet PO 03/09/25 17:22 1 mg ONCE ONE Administration Hydromorphone HCl 1 mg 03/09/25 21:19 03/09/25 21:55 Hydromorphone Hcl 2 Mg Tablet PO 03/09/25 21:20 1 mg ONCE ONE Administration Lactated Ringer's 1,000 mls @ 999 mls/hr 03/09/25 21:30 03/09/25 21:53 Lr IV 03/09/25 22:30 999 mls/hr .Q1H1M RILEY Administration Insulin Glargine 25 unit 03/09/25 21:19 03/09/25 21:56 Insulin Glargine,Hum.Rec.Anlog 100 Unit/Ml 10 Ml Vial SUBCUT 03/09/25 21:20 25 unit ONCE ONE Administration Insulin Human Regular 10 unit 03/09/25 19:16 03/09/25 19:55 Insulin Regular, Human 100 Unit/Ml 10 Ml Vial IVPUSH 03/09/25 19:17 10 unit ONCE ONE Administration Insulin Human Regular 20 unit 03/09/25 21:19 03/09/25 21:57 Insulin Regular, Human 100 Unit/Ml 10 Ml Vial IVPUSH 03/09/25 21:20 20 unit ONCE ONE Administration Methylprednisolone Sodium Succinate 60 mg 03/09/25 17:21 03/09/25 18:03 Methylprednisolone Sod Succ 125 Mg/2 Ml Vial IVPUSH 03/09/25 17:22 60 mg ONCE ONE Administration Medical Decision Making Medical Decision Making MDM Narrative: 54-year-old female presented hospital today for evaluation of viral syndrome. She does have history of tyler respiratory failure with a tracheostomy collar, supplemental O2 2 L at baseline. Does have history of COPD as well. We will plan to give patient a breathing treatment here. IV Solu-Medrol will be given to the patient. She is complaining of back pain. She stated Dilaudid usually helps. We will give p.o. Dilaudid for the patient. Basic lab work will be obtained x-ray will be obtained as well we will obtain a VBG. Patient does have diabetes. We will obtain ketones level as well. Viral swab will be obtained with the patient as well. Patient is flu positive Chest x-ray is clear. Patient does hyperglycemia 552. No signs of metabolic acidosis or DKA. She does have slight acidosis from hypercapnia standpoint likely from respiratory standpoint. IV insulin given. Lantus given. Sugar is 443 at this time. We will plan to discharge patient. Prednisone prescribed for her COPD exacerbation, Z-Michael and cough medicine we will prescribe as well. Patient will be discharged home. We will plan to refill patient's lispro as well. Encouraged her to follow up with her primary care doctor. Differential Diagnosis Differential Diagnoses: The differential diagnosis associated with the presentation includes DKA, pneumonia, viral infection, flu Lab Data MDM Lab Attestation statement: I reviewed the patient's lab results. 03/09/25 18:04 03/09/25 18:04 Labs: Lab Results 03/09/25 03/09/25 03/09/25 Range/Units 18:04 18:09 19:54 WBC 6.0 (4.8-10.8) X10*3/uL RBC 4.92 (4.20-5.50) X10*6/uL Hgb 13.7 (12.0-16.0) g/dl Hct 43.6 (37.0-47.0) % MCV 88.6 (80.0-98.0) fL MCH 27.8 (27.0-33.0) pg MCHC 31.4 (31.0-35.0) g/dl RDW 13.1 (11.0-16.0) % Plt Count 253 (160-400) X10*3/uL MPV 9.6 (9.4-12.3) fL Immature Gran % (Auto) 0.3 (0.0-0.4) % Neut % (Auto) 71.9 (45-73) % Lymph % (Auto) 14.3 L (20-40) % [place] % (Auto) 7.3 (2-11) % Eos % (Auto) 5.7 H (0-4) % Baso % (Auto) 0.5 (0-2) % Lymph # (Auto) 0.9 L (1.2-4.9) X10*3/uL [place] # (Auto) 0.4 (0.1-1.2) X10*3/uL Eos # (Auto) 0.3 (0.0-0.4) X10*3/uL Baso # (Auto) 0.0 (0.0-0.2) X10*3/uL Abs Immat Gran (auto) 0.02 (0.00-0.03) X10*3/uL Absolute Neuts (auto) 4.3 (2.0-8.3) x10*3/uL Absolute Nucleated RBC 0.000 (0.0-0.012) X10*3/uL Nucleated RBC % (auto) 0.0 (0.0-0.2) /100WBC VBG pH 7.30 L (7.32-7.43) VBG pCO2 74 mmHg VBG pO2 34 mmHg VBG HCO3 36 H (22-26) mmol/L VBG O2 Saturation 43.0 % VBG Base Excess 7.2 mmol/L Sodium 136 (135-145) mmol/L Potassium 4.6 (3.3-5.1) mmol/L Chloride 94 L (96-108) mmol/L Carbon Dioxide 33 H (22-29) mmol/L Anion Gap 14 (12-20) BUN 16 (9-16) mg/dL Creatinine 1.24 (0.5-1.4) mg/dL Estim Creat Clear Calc 58.7 Estimated GFR 45 POC Glucose 552 H* (60-115) mg/dL Random Glucose 539 H* (60-115) mg/dL Calcium 8.5 D (8.4-10.2) mg/dL Beta-Hydroxybutyrate 0.14 (0.02-0.27) mmol/L Influenza Type A (PCR) POSITIVE A (Negative) Influenza Type B (PCR) NEGATIVE (Negative) RSV RNA Qual (PCR) NEGATIVE (Negative) SARS-CoV-2 RNA (RT-PCR) NEGATIVE (Negative) 03/09/25 03/09/25 Range/Units 20:59 22:30 WBC (4.8-10.8) X10*3/uL RBC (4.20-5.50) X10*6/uL Hgb (12.0-16.0) g/dl Hct (37.0-47.0) % MCV (80.0-98.0) fL MCH (27.0-33.0) pg MCHC (31.0-35.0) g/dl RDW (11.0-16.0) % Plt Count (160-400) X10*3/uL MPV (9.4-12.3) fL Immature Gran % (Auto) (0.0-0.4) % Neut % (Auto) (45-73) % Lymph % (Auto) (20-40) % [place] % (Auto) (2-11) % Eos % (Auto) (0-4) % Baso % (Auto) (0-2) % Lymph # (Auto) (1.2-4.9) X10*3/uL [place] # (Auto) (0.1-1.2) X10*3/uL Eos # (Auto) (0.0-0.4) X10*3/uL Baso # (Auto) (0.0-0.2) X10*3/uL Abs Immat Gran (auto) (0.00-0.03) X10*3/uL Absolute Neuts (auto) (2.0-8.3) x10*3/uL Absolute Nucleated RBC (0.0-0.012) X10*3/uL Nucleated RBC % (auto) (0.0-0.2) /100WBC VBG pH (7.32-7.43) VBG pCO2 mmHg VBG pO2 mmHg VBG HCO3 (22-26) mmol/L VBG O2 Saturation % VBG Base Excess mmol/L Sodium (135-145) mmol/L Potassium (3.3-5.1) mmol/L Chloride (96-108) mmol/L Carbon Dioxide (22-29) mmol/L Anion Gap (12-20) BUN (9-16) mg/dL Creatinine (0.5-1.4) mg/dL Estim Creat Clear Calc Estimated GFR POC Glucose 524 H* 443 H* (60-115) mg/dL Random Glucose (60-115) mg/dL Calcium (8.4-10.2) mg/dL Beta-Hydroxybutyrate (0.02-0.27) mmol/L Influenza Type A (PCR) (Negative) Influenza Type B (PCR) (Negative) RSV RNA Qual (PCR) (Negative) SARS-CoV-2 RNA (RT-PCR) (Negative) Independent Interpretation I performed an independent interpretation of an: Plain X-Ray Radiology Impression Discussion of test interpretation with radiology: I have reviewed the radiologist's reading. Chronic Conditions Patient?s care impacted by: Diabetes Discharge Plan Discharge Clinical Impression: Hyperglycemia, Flu, COPD exacerbation Patient Disposition: Home, Self-Care Additional Instructions: Follow up with your primary care doctor. Watch your sugar and adjust accordingly. If you do not feel well return to the ED. Prescriptions: New prednisone 20 mg tablet 40 mg PO DAILY 5 Days Qty: 10 0RF azithromycin 250 mg tablet See Rx Instructions .ROUTE .COMPLEX Qty: 6 0RF Rx Instructions: For 250 mg dose pack: take 500 mg today (day 1), then 250 mg for 4 days (days 2-5) insulin lispro [Humalog KwikPen Insulin] 100 unit/mL insulin pen 1 sliding scale dose subcut USEASDIRECTD Qty: 15 0RF benzonatate 200 mg capsule 200 mg PO TID PRN (Reason: cough) Qty: 20 0RF No Action insulin lispro 100 unit/mL insulin pen 1 sliding scale dose subcut TIDAC 30 Days Qty: 15 3RF Rx Instructions: 2 to 20 units TID with meals per sliding scale fexofenadine 180 mg tablet 180 mg PO DAILY PRN (Reason: allergy symptoms) 30 Days Qty: 30 3RF promethazine 25 mg tablet 25 mg PO DAILY PRN (Reason: nausea) Qty: 30 0RF (DME) Shiley Cuffless Trach inner 6.5 mm and outer 9.4mm See Rx Instructions .Route .MEDSUPPLY Qty: 1 11RF Rx Instructions: As directed albuterol sulfate [Ventolin HFA] 90 mcg/actuation HFA aerosol inhaler 2 puff inhalation Q4H PRN (Reason: wheezing) Qty: 8.5 2RF gabapentin 300 mg capsule 300 mg PO TID Qty: 90 0RF ibuprofen 800 mg tablet 800 mg PO Q8H PRN (Reason: pain) Qty: 90 0RF Rx Instructions: Take with food lurasidone 80 mg tablet 80 mg PO BEDTIME clonazepam 0.5 mg tablet 1 mg PO BID PRN (Reason: Anxiety) prednisone 10 mg tablet See Rx Instructions .ROUTE .COMPLEX Qty: 20 0RF Rx Instructions: 40 mg daily x 2 days, then 30 mg daily x 2 days, then 20 mg daily x 2 days, then 10 mg daily x 2 days amoxicillin-pot clavulanate 875-125 mg tablet 1 tab PO BID Qty: 6 0RF insulin glargine [Lantus U-100 Insulin] 100 unit/mL Solution 25 unit subcut BEDTIME Qty: 10 0RF oxcarbazepine 300 mg tablet 300 mg PO BID famotidine 20 mg tablet 20 mg PO BID trazodone 150 mg tablet 150 mg PO BEDTIME PRN (Reason: Sleep) fluticasone propionate 50 mcg/actuation spray,suspension 1 spray intranasal DAILY PRN (Reason: Allergy Symptoms) Rx Instructions: INHALE IN BOTH NOSTRILS escitalopram oxalate 20 mg tablet 20 mg PO BEDTIME atorvastatin 20 mg Tablet 20 mg PO DAILY Dulera 200-5 mcg/actuation Hfa Aerosol Inhaler 2 puff INHALATION BID prednisone 20 mg tablet 40 mg PO DAILY 7 Days Qty: 14 0RF azithromycin 250 mg tablet See Rx Instructions PO .COMPLEX Qty: 6 0RF Rx Instructions: For 250 mg dose pack: take 500 mg today (day 1), then 250 mg for 4 days (days 2-5) (DME) FreeStyle Myesha 3 Plus Sensor Device See Rx Instructions .Route Qty: 2 4RF Rx Instructions: As directed change every 15 days (DME) blood-glucose meter [FreeStyle Lite Meter] Kit See Rx Instructions .ROUTE .MEDSUPPLY Qty: 1 0RF Rx Instructions: As directed (DME) FreeStyle Lite Strips Strip See Rx Instructions .ROUTE .MEDSUPPLY Qty: 100 12RF Rx Instructions: As directed 3 times a day (DME) lancets [FreeStyle Lancets] 28 gauge misc See Rx Instructions .ROUTE .MEDSULY Qty: 100 12RF Rx Instructions: As directed 3 times a day Print Language: Egyptian
--- OUTSIDE RECORDS SUMMARY | 2025-03-09 17:32 | XMS_ITS | Clinical Summary ---
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
--- OUTSIDE RECORDS SUMMARY | 2025-03-09 17:32 | XMS_ITS | Clinical Summary ---
Author Organization [facility] [address] [place] [address] [place] [address] [place] [address] Phone Care Team Providers Care Patients Transporter Name Role Phone Megan Anderson MD Primary [...] and call 15 mL 1 5 Active Ventolin HFA 90 mcg/actuation inhalerIndication s:Moderate persistent asthma without complication INHALE 2 PUFFS BY MOUTH EVERY 6 (SIX) HOURS IF NEEDED FOR WHEEZING. COUGH 18 each 5 Active famotidine (PEPCID) 20 mg tablet TAKE 1 TABLET BY MOUTH TWICE A DAY 60 tablet 5 Active fluticasone propionate (FLONASE) 50 mcg/actuation nasal spray SPRAY 1 SPRAY INTO EACH NOSTRIL EVERY DAY 48 mL 5 Active atorvastatin (LIPITOR) 20 mg tablet TAKE 1 TABLET BY MOUTH EVERY DAY 30 tablet 5 Active Active Problems Problem Noted Date [...] 08/05/2021 DVT of deep femoral vein, right 05/28/2021 Assessment & Plan (02/02/2024 12:11 PM [...] complication, without long-term current use of insulin 01/20/2018 Assessment & Plan (02/02/2024 12:11 PM [...] up in 4 months. Narcotic dependence, in remission 11/02/2011 Overview (01/11/2024): On methadone Bilateral cataracts [...] Encounters Date Type Department Care Team Description 12/31/2024 Telephone Adult Medicine [address] [address] Megan Anderson MD from Last 3 Months Immunizations Immunization Administration Dates Next Due Influenza Quadravalent, MDCK , 0.5ml, preservative free (Flucelvax) 6mo and older 12/03/2021,01/06/2018 Influenza Quadravalent, MDCK , 0.5ml, with preservative (Flucelvax) 6mo and older 12/26/2016 Influenza trivalent, 0.5mL, preservative free (Fluarix; FluLaval; Fluzone) ages 6mo and older (Afluria) 3 years and older 01/28/2016,12/18/2014,12/16/2013,2012,12/09/2011,12/13/2008 Influenza trivalent, with preservative (Fluzone; Afluria) 6mo and older 11/26/2019,11/13/2019,11/04/2018 PPD Test 08/30/2018 UBmatrix SARS-CoV-2 COVID-19, mRNA, LNP-S, preservative free 04/20/2020,04/03/2020 Td Tetanus diptheria (Tdvax) 7yo and older 04/14/2006 Tdap Tetanus diptheria acell ular pertussis (Boostrix; Adacel) 7yo and older 01/06/2018 Surgical History Surgery Date Site/Laterality Comments OTHER SURGICAL HISTORY PROCEDURE: [facility] ARTHRODESIS POSTERIOR SPINAL DFRM <6 VRT [facility] UPPER GASTROINTESTINAL ENDOSCOPY 05/04/2019 PROCEDURE: [facility] UPPER GI ENDOSCOPY PERFORMED; COMMENT: Visually normal on treatment with famotidine 40 mg every morning. CYSTOSCOPY 06/2021 PROCEDURE: [facility] CYSTOURETHROSCOPY; COMMENT: Cystoscopy and stent placement for renal stone Dr. Aogsto Medical History Medical History Date Comments Unspecified [...] essential hypertension PEA (Pulseless electrical ac tivity) ([facility] V24, CMS/HCC V28) 11/06/2020 DX:PEA (Pulseless electrica l activity) ([facility]); COMMENT: Found at home PEA and apneic [facility] S[facility] admit 11/01/20 Pulmonary embolism (CMS/HCC V24, CMS/HCC V28) 05/28/2021 DX:Pulmonary embolism ([facility]) 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 DX:Necr otizing [...] on file Sexual Orientation Not on file Last Filed Vital Signs Vital Sign Reading [...] Screening 1970 Colorectal Cancer Screening: Colonoscopy 1970 Drug Screen 1970 Non-Opioid Controlled Substance Agreement 1969 Diabetes: Annual Foot Exam 11/19/1979 Hepatitis [...] Result * Annual BMP Blood Test (09/23/2023) [facility] Annual BMP Blood Test abstracted Result [facility] Provider HEALTH MAINTENANCE Final Result * (ABNORMAL) Lipid panel (09/23/2023) [facility] LDL/HDL Ratio 5(A) 0 - 4 Triglycerides 418(A) 0 - 150 mg/dL Cholesterol 149 0 - 200 mg/dL HDL 33(A) >=40 mg/dL LDL Cholesterol 33 0 - 100 mg/dL Blood Venous blood specimen / Unknown Result [facility] Provider LAB BLOOD ORDERABLES Laila l Result * Depression Screening (07/13/2023) [facility] Depression Screening abstracted Result [facility] Provider HEALTH MAINTENANCE Final Result * (ABNORMAL) Hemoglobin A1c (07/06/2022) [facility] Hemoglobin A1C 9.7(A) <=6.5 % Blood Venous blood specimen / Unknown Result [facility] Provider LAB BLOOD ORDERABLES Laila l Result * Cervical Cancer Screening: HPV (06/17/2022) [facility] Cervical Cancer Screening: HPV negative, abstracted Result [facility] Provider HEALTH MAINTENANCE Final Result * Hepatitis C Screening (11/14/2008) [facility] Hepatitis C Screening abstracted Result [facility] Provider HEALTH MAINTENANCE Final Result * Urine Albumin Creatinine Ratio (12/11/2004) [facility] Urine Albumin Creatinine Ratio abstracted Result [facility] Provider HEALTH MAINTENANCE Final Result from Last 3 Months or Most Recently Relevant to Health Maintenance Insurance [facility] [employer] Member Subscriber Plan / Payer (Ef fective 2024-Present) Name:SAKSHI BUSH Relation to Subscriber:Self Name:Sofia Sakshi Vital Payer ID:[id number] Group ID:[id number] Type:Not on file Address: [facility] [address] [place] [address] Care Teams Patients Transporter Relationship Specialty Start Date End Date Megan Anderson MD [address] [place] [address] PCP - General Internal Medicine 10/12/21
--- OUTSIDE RECORDS SUMMARY | 2025-03-09 17:32 | XMS_ITS | Patient Health Record ---
Author Organization [facility] Address [address] [place] [address] Care Team Providers Care Manager Marketing Name Role Phone Angie Wing Primary Care Provider Unavailab Aleksey King Unavailable [phone] Viraj Copeland Unavailable Unavailable Allergies Allergen (clinical drug ingredient) Drug/Non Drug Allergy documented on EMR Reaction Allergy Type Onset Date Status seasonal allergies (uncoded) Unknown Allergy Active Reason For Referral No Information Medications Medication SIG (Take, Route, Frequency, Duration) Notes Start Date End Date Status hydroCHLOROthiazide Active ibuprofen prn Active Naproxen prn Active Methadone HCl 85 mg Tablet 1 tablet Oral ly Once a day Active Benadryl prn Active Zanaflex prn Active Pantoprazole Sodium 40 MG Tablet Delayed Release 1 tablet Orally BID Active Fluticasone-Salmeterol Active Albuterol Active Fluticasone Propionate HFA Active Social History Social History Additional Details Category Social Info Options Details Miscellaneous: Marital status: , but living with a significant other for 12 years Occupation: disabled Section Notes: Nonsmoker; no alcohol Problems Problem Type SNOMED Code ICD Code Onset Dates Problem Status W/U Status Risk Notes Problem Gastroesophageal reflux disease without esophagitis (625277790) Gastroesophageal reflux disease without esophagitis (K21.9) Active confirmed Problem Dysphagia (33011031) Pharyngoesophageal dysphagia (R13.14) Active confirmed Plan Of Treatment Future Test Test Name Order Date UPPER GI ENDOSCOPY [place] [facility] 02/27/2015 Insurance Providers Payer Name Payer Address Payer Phone Subscriber Number Group Number Insured Name Patient Relationship to Insured Coverage Start Date Coverage End Date [facility] [address] [address] [place], [place] [id number] [phone] [id number] SAKSHI BUSH Self - patient is the insured MEDICAID OF [facility] [address] [place] [phone] [id number] SAKSHI BUSH Self - patient is the insured Medical (General) History Medical History History ICD Code GERD hypertension asthma depression/bipolar Denies MS,DM,CVA,renal disease Back pain Surgical History Surgery Date(Month/Year) spinal fusion tonsillectomy and adenoidectomy appendectomy
[2025-03-09] MEDS: Albuterol Sulfate 5 MG, Albuterol/Iprat 2.5/0.5MG 3 ML 3 ML INHALE (18:04)
[2025-03-09 18:10] LABS: MANUAL DIFF FLAG NO
[2025-03-09 18:11] LABS: Hematocrit 43.6 % (37.0-47.0); Hemoglobin 13.7 g/dl (12.0-16.0); Imm Gran Abs Auto 0.02 X10*3/uL (0.00-0.03); Imm Gran Pct Auto 0.3 % (0.0-0.4); Lymphocytes Absolute Auto 0.9 X10*3/uL (1.2-4.9); Mean Corpuscular HGB Conc 31.4 g/dl (31.0-35.0); Mean Corpuscular Hemoglobin 27.8 pg (27.0-33.0); Mean Corpuscular Volume 88.6 fL (80.0-98.0); NRBC Abs Auto 0.000 X10*3/uL (0.0-0.012); NRBC Pct Auto 0.0 /100WBC (0.0-0.2); Platelet Count 253 X10*3/uL (160-400); Red Blood Count 4.92 X10*6/uL (4.20-5.50); White Blood Count 6.0 X10*3/uL (4.8-10.8)
[2025-03-09 18:12] LABS: Venous Blood Gas Refer to POC result
[2025-03-09 18:13] LABS: VBG HCO3 36 mmol/L (22-26); VBG O2 % Saturation 43.0 %
[2025-03-09 18:32] LABS: Anion Gap 14 (12-20); Blood Urea Nitrogen 16 mg/dL (9-16); Calcium 8.5 mg/dL (8.4-10.2); Carbon Dioxide 33 mmol/L (22-29); Chloride 94 mmol/L (96-108); Creatinine Clr Calc Pharmacy 58.7; Estimated Glomerular Filt Rate 45; Potassium 4.6 mmol/L (3.3-5.1); Sodium 136 mmol/L (135-145)
[2025-03-09 18:46] LABS: Resp Syncy Virus RNA Qual PCR NEGATIVE (Negative); SARS COV2 PCR INHOUSE NEGATIVE (Negative)
[2025-03-09 20:01] LABS: Glucose, Whole Blood 552 mg/dL (60-115)
[2025-03-09 21:04] LABS: Glucose, Whole Blood 524 mg/dL (60-115)
[2025-03-09] MEDS: Lactated Ringers 1,000 ML 999 ML IV (21:53)
[2025-03-09] MEDS: Insulin Glargine,Hum.rec.anlog 100 UNIT/ML 10 ML VIAL 25 UNIT SUBCUT (21:56)
[2025-03-09 22:38] LABS: Glucose, Whole Blood 443 mg/dL (60-115)
== END 2025-03-09 23:25 | disposition home or self-care (01) ==
PROVIDERS: Emergency Provider Student in an Organized Health Care Education/Training Program; PCP Internal Medicine
DX: J10.1 Influenza due to other identified influenza virus with other respiratory manifestations (principal); J44.1 Chronic obstructive pulmonary disease with (acute) exacerbation; E11.65 Type 2 diabetes mellitus with hyperglycemia; R06.02 Shortness of breath; R05.9 Cough, unspecified; Z79.4 Long term (current) use of insulin; Z79.899 Other long term (current) drug therapy; Z03.818 Encounter for observation for suspected exposure to other biological agents ruled out
CPT/HCPCS: 36415; 71045; 80048; 82010; 82803; 82947; 85025; 87637; 94640; 96361; 96374; 96375; 96376; 99285; J2919; J7120

== ENCOUNTER → 2025-03-09 17:21 | Outpatient (BNV) | payer OTHER, SELFPAY | PROVIDERS: Emergency Provider Student in an Organized Health Care Education/Training Program; PCP Internal Medicine; Visit Provider Radiology Diagnostic Radiology | DX: R06.02 Shortness of breath (principal) | CPT/HCPCS: 71045 ==

== ENCOUNTER 2025-03-13 10:00 | Outpatient (RCR) | payer OTHER, SELFPAY | END 2025-03-13 16:22 | disposition home or self-care (01) | LOC: HO.WCC 10:00 | PROVIDERS: PCP Internal Medicine; Visit Provider Colon & Rectal Surgery | DX: T21.32XD Burn of third degree of abdominal wall, subsequent encounter (principal); T31.0 Burns involving less than 10% of body surface; E11.65 Type 2 diabetes mellitus with hyperglycemia; X19.XXXD Contact with other heat and hot substances, subsequent encounter | CPT/HCPCS: 11042; 16020; 97597; 99212; 99214 ==